=== PATIENT | male | born 1955 | race Hispanic/Latino ===

== ENCOUNTER 2018-02-13 16:35 | Inpatient (IN) | payer MEDICARE, SELFPAY ==
--- OUTSIDE RECORDS SUMMARY | 2018-02-13 16:37 | XMS REPORT | Clinical Summary ---
:1955 Author Organization [facility] Address [address] [place] [address] Care Team Providers Name Role Phone Bebeto Jaffe DO Primary Care Provider Allergies Active Allergy Reactions Severity Noted Date Comments Ibuprofen 07/18/2016 Current Medications Prescription Sig. Disp. Refills Start Date End Date Status PROAIR HFA 90 USE 2 PUFFS 4 06/02/2016 Active mcg/actuation NEEDED EVERY 4 inhaler HRS, NEEDED FOR INHALATION 30 DAYS cyclobenzaprine Take 10 mg by 0 06/17/2016 Active (FLEXERIL) 10 MG mouth 3 (three) tablet times a day as needed. for muscle spams oxyCODone-acetaminop TAKE 1 TABLET 0 06/17/2016 Active hen (PERCOCET) BY MOUTH EVERY 10-325 mg per tablet TWELVE HOURS NEEDED FOR PAIN lansoprazole Take 1 Active (PREVACID) 30 MG capsule(s) capsule every day by oral route. famotidine (PEPCID) Take 20 mg by 0 05/24/2016 Active 20 MG tablet mouth 2 (two) times a day. lansoprazole Take 30 mg by 0 05/23/2016 Active (PREVACID) 30 MG mouth 2 (two) capsule times a day. SPIRIVA RESPIMAT 2.5 TAKE 2 PUFFS BY 3 04/27/2016 Active mcg/actuation mist MOUTH EVERY DAY venlafaxine XR Take 150 mg by Active (EFFEXOR-XR) 150 MG mouth daily. 24 hr capsule traZODone (DESYREL) Take 100 mg by Active 100 MG tablet mouth nightly. pen needle, diabetic Use 4 needles a 400 each 3 08/15/2016 Active (BD ULTRA-FINE TIERA day PEN NEEDLES) 32 gauge x 5/32" needle fenofibrate TAKE 1 TABLET 90 tablet 3 12/05/2016 Active (LOFIBRA) 160 MG BY MOUTH EVERY tabletIndications: DAY Mixed hyperlipidemia VITAMIN D2 50,000 TAKE 1 CAPSULE 13 capsule 0 12/05/2016 Active unit capsule EVERY WEEK IN THE MORNING FOR 91 DAYS. ONETOUCH DELICA CHECK GLUCOSE 100 each 3 12/07/2016 Active LANCETS 33 gauge TWICE A DAY misc blood-glucose meter Use as 1 each 0 03/01/2017 03/01/20 Active (ONETOUCH VERIO FLEX instructed 18 START) kitIndications: Type 2 diabetes mellitus with complication, with long-term current use of insulin lancets (ONETOUCH 1 each 4 (four) 400 each 3 03/01/2017 Active DELICA LANCETS) 33 times a day. gauge miscIndications: Type 2 diabetes mellitus with complication, with long-term current use of insulin insulin lispro Inject 35 Units 105 mL 3 04/28/2017 Active (HumaLOG KwikPen) under the skin 100 unit/mL 3 (three) times injection a day before penIndications: meals. 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, with long-term current use of insulin enalapril (VASOTEC) Take 1 tablet 90 tablet 1 07/19/2017 Active 20 MG (20 mg total) tabletIndications: by mouth daily. Benign essential hypertension blood sugar Check glucose 4 400 strip 3 08/11/2017 Active diagnostic strips times a day (ONETOUCH VERIO) strip test stripsIndications: Type 2 diabetes mellitus with complication, with long-term current use of insulin insulin GLARGINE Inject 70 Units 22.5 mL 1 08/14/2017 Active (TOUJEO SOLOSTAR) under the skin 300 unit/mL (1.5 mL) daily. insulin penIndications: Type 2 diabetes mellitus with complication, with long-term current use of insulin insulin Use 1 syringe 270 each 1 01/02/2018 Active syringe-needle U-100 TID. 1 mL 31 gauge x 516 syringe enalapril (VASOTEC) Take 1 tablet 90 tablet 3 10/10/2016 07/19/20 Discontinued 20 MG (20 mg total) 17 tabletIndications: by mouth daily. Benign essential hypertension atorvastatin Take 1 tablet 90 tablet 3 10/10/2016 10/10/20 (LIPITOR) 20 MG (20 mg total) 17 tabletIndications: by mouth Mixed hyperlipidemia nightly. blood sugar Check glucose 4 400 strip 3 10/10/2016 03/01/20 Discontinued diagnostic strips times a day 17 (ONETOUCH VERIO) strip test stripsIndications: Type 2 diabetes mellitus with complication, with long-term current use of insulin insulin lispro Inject 30 Units 90 mL 3 01/25/2017 04/28/20 Discontinued (HumaLOG KwikPen) under the skin 17 100 unit/mL 3 (three) times injection a day before penIndications: meals. 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, with long-term current use of insulin insulin GLARGINE Inject 60 Units 18 mL 3 01/25/2017 04/28/20 Discontinued (TOUJEO SOLOSTAR) under the skin 17 300 unit/mL (1.5 mL) daily. insulin penIndications: Type 2 diabetes mellitus with complication, with long-term current use of insulin metFORMIN Take 1 tablet 180 tablet 3 01/25/2017 01/26/20 (GLUCOPHAGE) 1,000 (1,000 mg 18 mg total) by mouth tabletIndications: 2 (two) times a Uncontrolled type 2 day with meals. diabetes mellitus with other circulatory complication, with long-term current use of insulin blood sugar Check glucose 4 400 strip 3 03/01/2017 08/11/20 Discontinued diagnostic strips times a day 17 (ONETOUCH VERIO) strip test stripsIndications: Type 2 diabetes mellitus with complication, with long-term current use of insulin insulin GLARGINE Inject 70 Units 22.5 mL 3 04/28/2017 08/14/20 Discontinued (TOUJEO SOLOSTAR) under the skin 17 300 unit/mL (1.5 mL) daily. insulin penIndications: Type 2 diabetes mellitus with complication, with long-term current use of insulin insulin ASPART Inject 70 Units 15 mL 1 08/14/2017 08/14/20 (NovoLOG Flexpen) under the skin 17 100 unit/mL insulin once for 1 pen dose. Active Problems Problem Noted Date Benign hypertension 04/11/2016 Bronchitis 04/11/2016 Chronic coronary artery disease 04/11/2016 Disease of airway 04/11/2016 Fever 04/11/2016 HLD (hyperlipidemia) 04/11/2016 Methicillin susceptible Staphylococcus aureus in conditions classified 2015 elsewhere and of unspecified site Escherichia coli (E. coli) infection 04/11/2016 Leukocytosis 04/11/2016 Localized peritonitis 04/11/2016 Abscess, retroperitoneal 04/11/2016 Fatty liver 04/11/2016 Uncontrolled type 2 diabetes mellitus 04/11/2016 Vitamin D deficiency 04/11/2016 Encounters Date Type Specialty Care Team Description 02/06/2018 Refill Endocrinology Alexander Mckeon Type 2 diabetes mellitus MD Madalyn with complication, with long-term current use of insulin 01/04/2018 Refill Endocrinology Alexander Mckeon Mixed hyperlipidemia MD Madalyn 01/02/2018 Orders Only Endocrinology Susanna Laboy MA 12/27/2017 Documentation Endocrinology Susanna Laboy MA 12/09/2017 Refill Endocrinology Alexander Mckeon Uncontrolled type 2 MD Madalyn diabetes mellitus with other circulatory complication, with long-term current use of insulin 12/01/2017 Office Visit Endocrinology Divina Zendejas MD 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, with long-term current use of insulin (Primary Dx); Osteopenia, unspecified location 08/14/2017 Orders Only Endocrinology Tasha Gallardo, Type 2 diabetes mellitus MA with complication, with long-term current use of insulin 08/11/2017 Office Visit Endocrinology Alexander Mckeon 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, with long-term current use of insulin (Primary Dx); MD Madalyn Type 2 diabetes mellitus with complication, with long-term current use of insulin; Benign essential hypertension; Mixed hyperlipidemia; Coronary artery disease involving [place] heart with angina pectoris, unspecified vessel or lesion type 07/19/2017 Orders Only Endocrinology Susanna Laboy MA Benign essential hypertension 04/28/2017 Office Visit Endocrinology Alexander Mckeon 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, with long-term current use of insulin (Primary Dx); MD Madalyn Benign essential hypertension; Mixed hyperlipidemia; Coronary artery disease involving [place] heart with angina pectoris, unspecified vessel or lesion type; Type 2 diabetes mellitus with complication, with long-term current use of insulin 04/20/2017 Documentation Endocrinology Susanna Laboy MA 03/01/2017 Orders Only Endocrinology Ariana Atwood MA Uncontrolled type 2 diabetes mellitus without complication, with long-term current use of insulin (Primary Dx); Type 2 diabetes mellitus with complication, with long-term current use of insulin after 02/12/2017 Family History Medical History Relation Name Comments Diabetes Brother Diabetes Father Heart disease Father Hypertension Father Other Father Diabetes Mother Heart disease Mother Hypertension Mother Kidney disease Mother Other Mother Thyroiditis Diabetes Paternal Grandfather Heart disease Paternal Grandfather Hypertension Paternal Grandfather Other Paternal Grandfather Disorder of thyroid gland Diabetes Son Other Son Steatosis of liver Relation Name Status Comments Brother Father Mother Paternal Grandfather Son Social History Tobacco Use Types Packs/Day Years Used Date Never Smoker Smokeless Tobacco: Never Used Alcohol Use Drinks/Week oz/Week Comments No Sex Assigned at Date Recorded Not on file Last Filed Vital Signs Vital Sign Reading Time Taken Blood Pressure 126/79 12/01/2017 12:[address] Pulse 91 12/01/2017 12:[address]ER Temperature 36.2 C (97.1 F) 12/01/2017 12:[address] WORKER Respiratory Rate 95 08/11/2017 9:18 AM CDT Oxygen Saturation 93% 12/01/2017 12:[address] WORKER Inhaled Oxygen Concentration - - Weight 112 kg (247 lb 12.8 oz) 12/01/2017 12:[address]ER Height 170.2 cm (5' 7") 12/01/2017 12:[address]ER Body Mass Index 38.81 12/01/2017 12:[address] Plan of Treatment Date Type Specialty Care Team Description 03/20/2018 Ancillary Procedure Divina Zendejas MD [address] [facility] [address] [place] [id number] [phone] 03/20/2018 Office Visit Endocrinology Divina Zendejas MD [address] [id number] Health Maintenance Due Date Last Done Comments COLONOSCOPY 2003 ZOSTER VACCINE 2013 FOOT EXAM 10/10/2017 10/10/2016, 10/10/2016, 07/18/2016 URINE MICROALBUMIN 01/07/2018 01/07/2017, 01/07/2017, 11/26/2015 OPHTHALMOLOGY EXAM 04/28/2018 04/28/2017, 04/28/2016 INFLUENZA VACCINE 05/30/2018 07/27/2017, 07/13/2016 Results POC glycosylated hemoglobin (Hb A1C) (12/01/2017 12:19 PM)Only the most recent of3 resultswithin the time period is included. Component Value Ref Range POC Hemoglobin A1C 8.1 % Specimen Performing Laboratory Blood POC glucose (12/01/2017 12:18 PM)Only the most recent of3 resultswithin the time period is included. Component Value Ref Range POC glucose 192Comment: NON FASTING 65 - 100 Specimen Performing Laboratory Blood after 02/12/2017 Insurance Payer Benefit Plan / Group Subscriber ID Type Phone Address UHC MEDICARE AARP MEDICARE COMPLETE [facility] xxxxxxxxx O
[2018-02-13] MEDS ORDERED: METHYLPREDNISOLONE 125 MG INJ ONE (17:47)
[2018-02-13] MEDS ORDERED: LEVALBUTEROL 1.25 MG/3 ML NEB ONE (17:47)
[2018-02-13] MEDS ORDERED: FUROSEMIDE 40 MG/4 ML VIAL ONE (17:48)
[2018-02-13] MEDS ORDERED: MORPHINE 10 MG/ML VIAL ONE (17:48)
[2018-02-13 18:18] LABS: Absolute Lymphocytes (CBC) 2.6 K/uL (0.7-4.9); Absolute Monocytes 0.6 K/uL (0.1-1.3); Absolute Neutrophil 3.9 K/uL (1.8-8.0); Basophils % 0.9 % (0-1.3); Eosinophils % 1.7 % (0-4.4); Hematocrit 43.4 % (39.6-49.0); Lymphocytes % 36.2 % (15.3-44.8); MCH 29.1 pg (27.0-35.0); MCV 88.1 fL (80-100); MPV 8.2 fL (7.6-11.3); Monocytes % 7.7 % (3.3-12.3); RBC Red Blood Cell Count 4.92 M/uL (4.33-5.43)
[2018-02-13 18:25] LABS: Bicarbonate 31 mEq/L (21-31); Glucose Level 304 mg/dL (65-120); Potassium 4.6 mEq/L (3.6-5.0); Sodium Level 141 mEq/L (135-145)
[2018-02-13 18:26] LABS: BUN Blood Urea Nitrogen 20 mg/dL (6-20)
--- NOTE | 2018-02-13 18:35 | RAD REPORT ---
EXAM DESCRIPTION: RAD - Chest Single View - 02/13/2018 6:21 pm CLINICAL HISTORY: Shortness of breath. COMPARISON: 12/21/2017 FINDINGS: Portable technique limits examination quality. Linear opacities in the right lung base are compatible with subsegmental atelectasis mild linear opac ity in the medial left base likely represents additional atelectasis or less likely developing pneumo shobha. The heart is normal in size. No displaced fractures.
[2018-02-13 19:33] LABS: Urine Blood NEGATIVE (NEG); Urine Glucose 2+ (NEG); Urine Protein NEGATIVE (NEG)
--- NOTE | 2018-02-13 19:38 | ER ---
Nurse's Notes [facility] Name: Asim Burnett Age: 62 yrs Sex: Male : 1955 Arrival Date: 02/13/2018 Time: 16:42 Bed 5 Private MD: Diagnosis: Dyspnea, unspecified;Pneumonia;Edema, unspecified Presentation: 02/13 16:50 Presenting complaint: Patient states: has had difficulty breathing all day today, has iw history of "breathing problems" but not COPD, pt uses home O2 4 LNC, c/o mild CP, denies cough. Transition of care: patient was not received from another setting of care. Onset of symptoms was February 13, 2018. Initial Sepsis Screen: Does the patient meet any 2 criteria? No. Patient's initial sepsis screen is negative. Does the patient have a suspected source of infection? No. Patient's initial sepsis screen is negative. Care prior to arrival: None. 16:50 Method Of Arrival: Wheelchair iw 16:50 Acuity: ORACIO 3 iw Triage Assessment: 19:00 General: Appears in no apparent distress. comfortable, obese, Behavior is calm, bp cooperative, appropriate for age. Respiratory: Reports shortness of breath cough that is Onset: The symptoms/episode began/occurred this morning, the patient has moderate shortness of breath. Historical: - Allergies: 16:55 Ibuprofen; iw - Home Meds: 16:55 Advair Diskus 250-50 mcg/dose Inhl dsdv 1 puff 2 times per day [Active]; atorvastatin iw 20 mg Oral tab 1 tab once daily [Active]; clonazepam 1 mg Oral tab 1 tab QID PRN [Active]; enalapril maleate 20 mg Oral tab 1 tab once daily [Active]; fenofibrate 160 mg Oral tab 1 tab once daily [Active]; furosemide 20 mg Oral tab 1 tab once daily [Active]; gabapentin 600 mg Oral tab 1 tab 3 times per day [Active]; Humalog 100 unit/mL Sub-Q soln 24 unit three times a day [Active]; lansoprazole 30 mg Oral cpDR 1 cap once daily [Active]; metformin 1,000 mg Oral TG24 1 tab 2 times per day [Active]; oxycodone-acetaminophen 10-325 mg Oral tab 1 tab twice a day [Active]; Spiriva with HandiHaler 18 mcg inhalation CpDv 1 cap once daily [Active]; spironolactone 25 mg Oral tab 1 tab once daily [Active]; Toujeo SoloStar 300 unit/mL (1.5 mL) subcutaneous inpn 50 unit nightly [Active]; trazodone 50 mg Oral tab 1 tab nightly [Active]; - PMHx: 16:55 Anxiety; COPD; Depression; Diabetes - IDDM; High Cholesterol; Hypertension; iw - PSHx: 16:55 Cholecystectomy; abdomen opened to repair punctured pancreas; left foot surgery; iw - Immunization history:: Adult Immunizations not up to date. - Social history:: Smoking status: . - Family history:: not pertinent. - Hospitalizations: : No recent hospitalization is reported. Screenin:40 Abuse screen: Denies threats or abuse. Denies injuries from another. Nutritional iw screening: No deficits noted. Tuberculosis screening: No symptoms or risk factors identified. Fall Risk IV access (20 points). Assessment: 16:50 General: Appears uncomfortable, Behavior is calm, cooperative. Pain: Complains of pain iw in chest Pain currently is 8 out of 10 on a pain scale. Neuro: Level of Consciousness is awake, alert, obeys commands, Oriented to person, place, time, situation, Moves all extremities. Full function. Cardiovascular: Rhythm is regular. Respiratory: Airway is patent Respiratory effort is labored, Respiratory pattern is tachypnea Breath sounds with crackles bilaterally. Derm: Skin is pink, warm \\T\\ dry. normal. Musculoskeletal: Range of motion: intact in all extremities. 18:16 Reassessment: Patient appears in no apparent distress at this time. Patient and/or iw family updated on plan of care and expected duration. Pain level reassessed. Patient is alert, oriented x 3, equal unlabored respirations, skin warm/dry/pink. Patient states feeling better. Patient states symptoms have improved. 19:00 Reassessment: RECD REPORT FROM DEMETRA LOYOLA. 62YO HM P/W SOB, ADMIT IN PROCESS. bp 20:58 Reassessment: ADMIT IN PROCESS, BED ASSIGNED, AWAITING ADMIT ORDERS. bp Vital Signs: 16:55 BP 146 / 89; Pulse 85; Resp 20 S; Temp 98.2; Pulse Ox 93% on 4 lpm NC; iw 18:16 BP 123 / 83; Pulse 87; Resp 22; Pulse Ox 96% on 3 lpm NC; iw 19:30 BP 125 / 71; Pulse 94; Resp 30; Pulse Ox 92% on NC; bp 20:17 BP 113 / 57; Pulse 91; Resp 28; Pulse Ox 95% on NC; mt 20:59 BP 111 / 69; Pulse 91; Resp 23; Pulse Ox 94% on NC; bp 22:09 BP 128 / 79; Pulse 86; Resp 27; Pulse Ox 93% ; bp ED Course: 16:42 Patient arrived in ED. iw 16:45 Renea Mariano, RN is Primary Nurse. iw 16:49 Xu Lowry MD is Attending Physician. rn 16:52 Triage completed. iw 17:56 EKG done, by renal technician. reviewed by Xu Lowry MD. at1 18:00 Initial lab(s) drawn, by me, sent to lab. Inserted saline lock: 20 gauge in left iw antecubital area, using aseptic technique. Blood collected. 18:20 X-ray completed. Portable x-ray completed in exam room. Patient tolerated procedure kc2 well. 18:21 XRAY CXR (1 view) In Process Unspecified. EDMS 18:41 Patient has correct armband on for positive identification. Bed in low position. Call iw light in reach. 19:00 Arm band placed on. bp 19:37 Lance Kowalski MD is Hospitalizing Provider. rn 19:48 No provider procedures requiring assistance completed. Patient admitted, IV remains in bp place. 19:55 Primary Nurse role handed off by Renea Mariano, MILLA bp 19:55 Bear Anthony, MILLA is Primary Nurse. bp Administered Medications: 17:59 Drug: SOLU-Medrol 125 mg Route: IVP; Site: left antecubital; iw 19:35 Follow up: Response: No adverse reaction bp 18:06 Drug: Lasix 40 mg Route: IVP; Site: left antecubital; iw 19:36 Follow up: Response: No adverse reaction bp 18:06 Drug: morphine 4 mg Route: IVP; Site: left antecubital; iw 19:36 Follow up: Response: Pain is decreased bp 18:30 Drug: Xopenex (3) 1.25 mg Route: Inhalation; iw 19:47 Drug: Rocephin - (cefTRIAXone) 1 grams Route: IVPB; Infused Over: 30 mins; Site: left bp antecubital; 19:48 Follow up: IV Status: Completed infusion bp 19:47 Drug: AZITHromycin 500 mg Route: IVPB; Infused Over: 1 hrs; Site: left antecubital; bp 19:48 Follow up: IV Status: Infusion continued upon admission bp 21:20 Drug: [place] 5 mg-325 mg 1 tabs Route: PO; bp 22:26 Follow up: Response: Pain is decreased bp Outcome: 19:37 Decision to Hospitalize by Provider. rn 22:27 Admitted to Med/surg accompanied by tech, via wheelchair, room 407, with oxygen, with bp chart, Report called to SHERIE LOYOLA 22:27 Condition: stable 22:27 Instructed on the need for admit. 22:32 Patient left the ED. bp Signatures: Dispatcher [employer] EDRenea Perez RN RN iw Nieto, Roman, MD MD rn gonzales, Amanda, corner block cutter EKG Tat1 Keerthi Rodrigues kc2 Caitlin Burleson mt, Brian, RN RN bp Corrections: (The following items were deleted from the chart) 19:49 19:48 Respiratory: Onset: The symptoms/episode began/occurred bp bp
--- NOTE | 2018-02-13 19:38 | EDPHYS ---
Physician Documentation [facility] Name: Asim Burnett Age: 62 yrs Sex: Male : 1955 Arrival Date: 02/13/2018 Time: 16:42 Bed 5 Private MD: ED Physician Xu Lowry HPI: 02/13 18:22 This 62 yrs old Male presents to ER via Wheelchair with complaints of rn Breathing Difficulty. 18:22 The patient has shortness of breath at rest. Onset: The symptoms/episode began/occurred rn today. Duration: The symptoms are continuous. The patient's shortness of breath is aggravated by coughing, light activity, talking, walking. Associated signs and symptoms: Pertinent positives: chest pain, productive cough, Pertinent negatives: dizziness, fever, hemoptysis, loss of consciousness. Severity of symptoms: At their worst the symptoms were moderate in the emergency department the symptoms are unchanged. The patient has experienced similar episodes in the past. The patient has not recently seen a physician. Historical: - Allergies: 16:55 Ibuprofen; iw - Home Meds: 16:55 Advair Diskus 250-50 mcg/dose Inhl dsdv 1 puff 2 times per day [Active]; atorvastatin iw 20 mg Oral tab 1 tab once daily [Active]; clonazepam 1 mg Oral tab 1 tab QID PRN [Active]; enalapril maleate 20 mg Oral tab 1 tab once daily [Active]; fenofibrate 160 mg Oral tab 1 tab once daily [Active]; furosemide 20 mg Oral tab 1 tab once daily [Active]; gabapentin 600 mg Oral tab 1 tab 3 times per day [Active]; Humalog 100 unit/mL Sub-Q soln 24 unit three times a day [Active]; lansoprazole 30 mg Oral cpDR 1 cap once daily [Active]; metformin 1,000 mg Oral TG24 1 tab 2 times per day [Active]; oxycodone-acetaminophen 10-325 mg Oral tab 1 tab twice a day [Active]; Spiriva with HandiHaler 18 mcg inhalation CpDv 1 cap once daily [Active]; spironolactone 25 mg Oral tab 1 tab once daily [Active]; Toujeo SoloStar 300 unit/mL (1.5 mL) subcutaneous inpn 50 unit nightly [Active]; trazodone 50 mg Oral tab 1 tab nightly [Active]; - PMHx: 16:55 Anxiety; COPD; Depression; Diabetes - IDDM; High Cholesterol; Hypertension; iw - PSHx: 16:55 Cholecystectomy; abdomen opened to repair punctured pancreas; left foot surgery; iw - Immunization history:: Adult Immunizations not up to date. - Social history:: Smoking status: . - Family history:: not pertinent. - Hospitalizations: : No recent hospitalization is reported. ROS: 18:22 Constitutional: Negative for fever, chills, and weight loss, Eyes: Negative for injury, rn pain, redness, and discharge, Neck: Negative for injury, pain, and swelling, Cardiovascular: Negative for palpitations, + edema, Respiratory: + sob and cough Abdomen/GI: Negative for abdominal pain, nausea, vomiting, diarrhea, and constipation, Back: Negative for injury and pain, MS/Extremity: Negative for injury and deformity, Skin: Negative for injury, rash, and discoloration, Neuro: Negative for headache, weakness, numbness, tingling, and seizure. Exam: 18:22 Constitutional: This is a well developed, well nourished patient who is awake, alert, rn mild tachypnea Head/Face: Normocephalic, atraumatic. Eyes: Pupils equal round and reactive to light, extra-ocular motions intact. Lids and lashes normal. Conjunctiva and sclera are non-icteric and not injected. Cornea within normal limits. Periorbital areas with no swelling, redness, or edema. Neck: Trachea midline, no thyromegaly or masses palpated, and no cervical lymphadenopathy. Supple, full range of motion without nuchal rigidity, or vertebral point tenderness. No Meningismus. Cardiovascular: Regular rate and rhythm with a normal S1 and S2. No gallops, murmurs, or rubs. Normal PMI, no JVD. No pulse deficits. Respiratory: + coarse bilateral breath sounds with exp wheezing, no retractions Abdomen/GI: Soft, non-tender, with normal bowel sounds. No distension or tympany. No guarding or rebound. No evidence of tenderness throughout. Back: No spinal tenderness. No costovertebral tenderness. Full range of motion. MS/ Extremity: Pulses equal, no cyanosis. Neurovascular intact. Full, normal range of motion. 2+ pitting edema bilateral lower ext Neuro: Awake and alert, GCS 15, oriented to person, place, time, and situation. Cranial nerves II-XII grossly intact. Motor strength 5/5 in all extremities. Sensory grossly intact. Vital Signs: 16:55 BP 146 / 89; Pulse 85; Resp 20 S; Temp 98.2; Pulse Ox 93% on 4 lpm NC; iw 18:16 BP 123 / 83; Pulse 87; Resp 22; Pulse Ox 96% on 3 lpm NC; iw 19:30 BP 125 / 71; Pulse 94; Resp 30; Pulse Ox 92% on NC; bp 20:17 BP 113 / 57; Pulse 91; Resp 28; Pulse Ox 95% on NC; mt 20:59 BP 111 / 69; Pulse 91; Resp 23; Pulse Ox 94% on NC; bp 22:09 BP 128 / 79; Pulse 86; Resp 27; Pulse Ox 93% ; bp MDM: 16:49 Patient medically screened. rn 19:30 Differential diagnosis: Bronchitis CHF exacerbation, Chronic Obstructive Pulmonary rn Disease Myocardial Infarction pneumonia, Pneumothorax pulmonary edema. 19:36 Data reviewed: vital signs, nurses notes, lab test result(s), EKG, radiologic studies, rn plain films, and as a result, I will admit patient. Counseling: I had a detailed discussion with the patient and/or guardian regarding: the historical points, exam findings, and any diagnostic results supporting the discharge/admit diagnosis, lab results, radiology results, the need for further work-up and treatment in the hospital. Response to treatment: the patient's symptoms have mildly improved after treatment, and as a result, I will admit patient. Admission orders: after a detailed discussion of the patient's condition and case, the admit orders are written by me. 02/13 17:01 Order name: Blood Culture Adult (2) rn 02/13 17:01 Order name: BMP; Complete Time: 18:41 rn 02/13 17:01 Order name: BNP; Complete Time: 18:41 rn 02/13 17:01 Order name: CBC with Diff; Complete Time: 19:17 rn 02/13 17:01 Order name: Troponin (emerg Dept Use Only); Complete Time: 18:41 rn 02/13 18:43 Order name: Urine Dipstick--Ancillary (enter results); Complete Time: 21:32 jw5 02/13 17:01 Order name: XRAY CXR (1 view); Complete Time: 18:41 rn 02/13 19:08 Order name: Urine --Ancillary (enter results); Complete Time: 21:32 em1 02/13 17:01 Order name: EKG; Complete Time: 17:43 rn 02/13 17:01 Order name: Cardiac monitoring; Complete Time: 19:37 rn 02/13 17:01 Order name: EKG - Nurse/Tech; Complete Time: 19:31 rn 02/13 17:01 Order name: IV Saline Lock; Complete Time: 19:37 rn 02/13 17:01 Order name: Labs collected and sent; Complete Time: 19:37 rn 02/13 17:01 Order name: O2 Per Protocol; Complete Time: 19:37 rn 02/13 17:01 Order name: O2 Sat Monitoring; Complete Time: 19:37 rn Administered Medications: 17:59 Drug: SOLU-Medrol 125 mg Route: IVP; Site: left antecubital; iw 19:35 Follow up: Response: No adverse reaction bp 18:06 Drug: Lasix 40 mg Route: IVP; Site: left antecubital; iw 19:36 Follow up: Response: No adverse reaction bp 18:06 Drug: morphine 4 mg Route: IVP; Site: left antecubital; iw 19:36 Follow up: Response: Pain is decreased bp 18:30 Drug: Xopenex (3) 1.25 mg Route: Inhalation; iw 19:47 Drug: Rocephin - (cefTRIAXone) 1 grams Route: IVPB; Infused Over: 30 mins; Site: left bp antecubital; 19:48 Follow up: IV Status: Completed infusion bp 19:47 Drug: AZITHromycin 500 mg Route: IVPB; Infused Over: 1 hrs; Site: left antecubital; bp 19:48 Follow up: IV Status: Infusion continued upon admission bp 21:20 Drug: Eugene 5 mg-325 mg 1 tabs Route: PO; bp 22:26 Follow up: Response: Pain is decreased bp Disposition: 02/13/18 19:37 Hospitalization ordered by Lance Kowalski for Inpatient Admission. Preliminary diagnosis are Dyspnea, unspecified, Pneumonia, Edema, unspecified. - Bed requested for Telemetry/MedSurg (Inpatient). - Status is Inpatient Admission. bp - Condition is Stable. - Problem is new. - Symptoms have improved. UTI on Admission? No Signatures: Dispatcher [employer] Divine Antunez, Renea Manzo RN, RN RN iw Nieto, Roman, MD MD rn Peltier, Brian, MILLA RN bp
[2018-02-13] MEDS ORDERED: CEFTRIAXONE/SWI 1gm 1 GM/10 ML SYR ONE (19:40)
[2018-02-13] MEDS ORDERED: AZITHROMYCIN 500 MG/250 ML BAG ONE (19:40)
[2018-02-13] MEDS ORDERED: HYDROCODONE/APAP 5/325 MG TAB ONE (21:18)
[2018-02-13] MEDS ORDERED: ONDANSETRON 4 MG/2 ML VIAL IV PRN (22:42)
[2018-02-13] MEDS ORDERED: ACETAMINOPHEN 500 MG TAB PO PRN (22:42)
[2018-02-13] MEDS: INSULIN -REGULAR HUMAN 50 UNIT/0.5 ML ML SQ SCH (23:06)
[2018-02-13 23:32] VITALS: BMI 38.5
[2018-02-13] MEDS: IPRATROPIUM BROM 0.5MG/2.5ML NEB SCH (23:34)
[2018-02-13] MEDS: ALBUTEROL 2.5 MG/3 ML NEB SOL NEB SCH (23:34)
--- NOTE | 2018-02-14 | EKG ---
Test Date: 2018-02-13 Test Time: 17:48:13 Television Station Manager: MARILIA MEASUREMENT RESULTS: Intervals: Rate: 88 NC: 156 QRSD: 90 QT: 372 QTc: 450 Robards: P: 18 NC: 156 QRS: -45 T: 7 INTERPRETIVE STATEMENTS: Normal sinus rhythm Left anterior fascicular block Abnormal ECG Compared to ECG 12/20/2017 18:21:13 Left anterior fascicular block now present Electronically Signed On 02-14-18 00:00:21 CDT by Dre Mai
[2018-02-14] MEDS ORDERED: ZOLPIDEM TARTRATE 5 MG TABLET PO PRN (01:24)
[2018-02-14] MEDS: KETOROLAC 30 MG/ML INJ IV PRN ×4 (01:45→23:04)
[2018-02-14] MEDS: METHYLPREDNISOLONE 40 MG INJ IV SCH ×2 (01:46→09:17)
[2018-02-14] MEDS: ALBUTEROL 2.5 MG/3 ML NEB SOL NEB SCH ×6 (03:01→23:29)
[2018-02-14] MEDS: IPRATROPIUM BROM 0.5MG/2.5ML NEB SCH ×6 (03:01→23:36)
--- NOTE | 2018-02-14 04:31 | P.HP ---
Certification for Inpatient Patient admitted to: Inpatient With expected LOS: >2 Midnights Practitioner: I am a practitioner with admitting privileges, knowledge of patient current condition, hospital course, and medical plan of care. Services: Services provided to patient in accordance with Admission requirements found in Title 42 Section 412.3 of the Code of Federal Regulations Patient History Date of Service: 02/13/18 Reason for admission: acute on chronic respiratory failure History of Present Illness: Mr Burnett is a 62 years old male with history of COPD on home oxygen at 4 L NC , DM II, chronic diastolic CHF, who start with progressive SOB since yesterday. He also has had productive cough with thick clear secretions. He denied fever or chills. At arrival his O2 sat were 94% on 4 L of oxygen, afebrile, lab work remarkable for normal WBC count, he has elevated troponin I 0.12, likely due to diastolic CHF exacerbation. XCR shows bilateral linear opacities. Allergies ibuprofen Allergy (Intermediate, Verified 02/13/18 22:58) Hives/Rash Home Medications: Atorvastatin Calcium [Lipitor*] 20 mg PO BEDTIME 01/15/17 Fenofibrate [Tricor*] 160 mg PO DAILY 01/15/17 Lansoprazole [Prevacid] 30 mg PO DAILY 01/15/17 Metformin HCl [Glucophage] 1,000 mg PO BIDWM 01/15/17 Trazodone [Desyrel*] 300 mg PO BEDTIME 01/15/17 Oxycodone HCl/Acetaminophen [Oxycodone-Acetaminophen 10-325] 1 tab PO Q12H 02/27 Fluticasone/Salmeterol [Advair 250/50 Diskus*] 1 puff IH BID #1 disk 03/03/17 Clonazepam [Klonopin*] 1 mg PO QIDP PRN 04/03/17 Insulin Glargine,Hum.rec.anlog [Toujoseo Jenniostar] 70 units SQ BEDTIME 04/03/17 Insulin Lispro [Humalog Kwikpen U-100] 35 unit SQ TID 04/03/17 Tiotropium [Spiriva Handihaler*] 1 puff IH DAILY 05/07/17 Metoprolol Succinate [Toprol Xl*] 50 mg PO [id number] #30 tab 07/17/17 Enalapril Maleate [Vasotec] 20 mg PO DAILY 09/29/17 Albuterol Neb [Proventil 0.083% Neb Soln] 2.5 mg NEB TID PRN #90 amp 12/21/17 Famotidine [Pepcid*] 20 mg PO DAILY 12/21/17 Furosemide [Lasix*] 40 mg PO BIDL 12/21/17 Prednisone [Prednisone*] 20 mg PO SEECOM #15 tab 12/21/17 Spironolactone [Aldactone*] 50 mg PO BID 12/21/17 Venlafaxine HCl [Effexor XR] 150 mg PO DAILY 12/21/17 - Past Medical/Surgical History Has patient received pneumonia vaccine in the past: Yes Diabetic: Yes -: IDDM -: Hypertension -: hyperlipidemia -: anxiety -: depression -: Gastroesophageal reflux disease -: Obstructive sleep apnea -: (home 02 4L) -: Pancreatic surgery -: cholecystectomy -: several back surgery -: 2008 ercp, punctured something in his pacreas, then transfered to -: [facility] for open exploratory lap, had feeding tube that has reversed -: trach from previous surgery at [facility] - Family History Father History Unknown: Yes -: Heart disease, Diabetes Mother -: Heart disease, Hypertension, Lung disease, GI disease, Diabetes, Stroke, Liver disease, Kidney disease Brother -: Heart disease, Hypertension, Lung disease, Diabetes, Stroke, Liver disease, Kidney disease Notes: 2 brothers Sister -: Heart disease, GI disease Notes: no known illness - Social History Smoking Status: Former smoker Alcohol use: No CD- Drugs: No Caffeine use: Yes Place of Residence: Home Review of Systems 10-point ROS is otherwise unremarkable Physical Examination - Vital Signs Temperature: 97.1 F Blood Pressure: 135/78 Pulse: 86 Respirations: 20 Pulse Ox (%): 91 - Physical Exam General: Alert, In no apparent distress HEENT: Atraumatic, PERRLA, Mucous membr. moist/pink, EOMI, Sclerae nonicteric Neck: Supple, 2+ carotid pulse no bruit, No LAD, Without JVD or thyroid abnormality Respiratory: Diminished, Expiratory wheezes Cardiovascular: Regular rate/rhythm, Normal S1 S2 Gastrointestinal: Normal bowel sounds, No tenderness Musculoskeletal: No tenderness Integumentary: No rashes Neurological: Normal speech, Normal strength at 5/5 x4 extr, Normal tone, Normal affect Lymphatics: No axilla or inguinal lymphadenopathy - Studies Laboratory Data (last 24 hrs) 02/13/18 17:55: WBC 7.3, Hgb 14.3, Hct 43.4, Plt Count 251 02/13/18 17:55: B-Natriuretic Peptide 20 02/13/18 17:55: Sodium 141, Potassium 4.6, BUN 20, Creatinine 0.82, Glucose 304 H Assessment and Plan - Problems (Diagnosis) (1) Acute on chronic diastolic (congestive) heart failure Current Visit: Yes Status: Acute (2) Acute and chronic respiratory failure Onset Date: 12/21/17 Current Visit: No Status: Acute Qualifiers: Respiratory failure complication: hypoxia Qualified Code(s): J96.21 - Acute and chronic respiratory failure with hypoxia (3) COPD with acute exacerbation Onset Date: 12/21/17 Current Visit: No Status: Acute (4) CAD (coronary artery disease) Onset Date: 05/08/17 Current Visit: No Status: Chronic Qualifiers: Coronary Disease-Associated Artery/Lesion type: unspecified vessel or lesion type [place] vs. transplanted heart: unspecified whether [place] or transplanted heart Associated angina: angina presence unspecified Qualified Code(s): I25.10 - Atherosclerotic heart disease of [place] coronary artery without angina pectoris (5) Diabetes mellitus Onset Date: 12/21/17 Current Visit: No Status: Chronic Qualifiers: Diabetes mellitus type: type 2 Diabetes mellitus skilled nursing insulin use: with skilled nursing use Diabetes mellitus complication status: with unspecified complications Qualified Code(s): E11.8 - Type 2 diabetes mellitus with unspecified complications; Z79.4 - detention (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 of insulin; Z79.4 - detention (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 of insulin; Z79.4 - detention (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 of insulin; Z79.4 - detention (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 of insulin (6) HTN (hypertension) Onset Date: 12/21/17 Current Visit: No Status: Chronic Qualifiers: Hypertension type: essential hypertension - Plan The patient will be admitted to the hospital due to acute on chronic respiratory failure secondary to COPD exacerbation by pneumonia and CHF exacerbation, trop I elevated, will cotinue serial monitoring, likely due to CHF. Will start empiric antibiotic treatment. Blood cultures in process. - Advance Directives Does patient have a Living Will: Yes Does patient have a Durable POA for Healthcare: Yes - Code Status/Comfort Care Code Status Assessed: Yes Code Status: Full Code
[2018-02-14 04:55] LABS: Absolute Lymphocytes (CBC) 0.9 K/uL (0.7-4.9); Absolute Monocytes 0.1 K/uL (0.1-1.3); Absolute Neutrophil 9.1 K/uL (1.8-8.0); Basophils % 0.2 % (0-1.3); Hematocrit 42.1 % (39.6-49.0); Lymphocytes % 8.7 % (15.3-44.8); MCH 29.8 pg (27.0-35.0); MCV 88.2 fL (80-100); MPV 8.8 fL (7.6-11.3); Monocytes % 0.6 % (3.3-12.3); RBC Red Blood Cell Count 4.77 M/uL (4.33-5.43)
[2018-02-14 06:04] LABS: Potassium 4.2 mEq/L (3.6-5.0)
[2018-02-14 06:15] LABS: Magnesium 1.3 mg/dL (1.8-2.5)
[2018-02-14] MEDS ORDERED: Magnesium Sulfate 2gm IVPB 2 G/50 ML BAG IV ONE (06:23)
[2018-02-14] MEDS ORDERED: CEFTRIAXONE 1 GM/NS 50 ML 1 GM/50 ML BAG IV SCH (09:00)
[2018-02-14] MEDS: INSULIN -REGULAR HUMAN 50 UNIT/0.5 ML ML SQ SCH ×4 (09:16→21:00)
[2018-02-14] MEDS: ENOXAPARIN 40 MG/0.4 ML SQ SCH (09:17)
[2018-02-14 09:18] LABS: Blood Morphology Comment NOT SEEN (NOT SEEN); Platelet Estimate ADEQ; Urine White Blood Cell Casts OK
[2018-02-14] MEDS ORDERED: clonazePAM 1 MG TAB PO PRN (13:42)
[2018-02-14] MEDS: GABAPENTIN 300 MG CAP PO SCH ×2 (14:39→22:55)
--- NOTE | 2018-02-14 14:55 | EKG ---
Test Date: 2018-02-13 Test Time: 19:26:45 House Moving Supervisor: VAZQUEZ MEASUREMENT RESULTS: Intervals: Rate: 95 DC: 158 QRSD: 88 QT: 356 QTc: 447 Mcgrath: P: 19 DC: 158 QRS: -25 T: 54 INTERPRETIVE STATEMENTS: Normal sinus rhythm Normal ECG Compared to ECG 02/13/2018 17:48:13 Left anterior fascicular block no longer present Electronically Signed On 02-14-18 14:55:00 CDT by Dre Mai
--- NOTE | 2018-02-14 16:26 | P.PN ---
Subjective Date of Service: 02/14/18 Chief Complaint: acute on chronic respiratory failure Patient seen and examined at bedside with RN. Chart reviewed. Currently patient is complaining of having some difficulty breathing and states that he has been dyspneic for the entire night as well. Review of Systems 10-point ROS is otherwise unremarkable Physical Examination - Vital Signs Temperature: 97.2 F Blood Pressure: 151/92 Pulse: 93 Respirations: 20 Pulse Ox (%): 94 - Physical Exam General: Alert, Oriented x3, Mild distress HEENT: Atraumatic Neck: Supple Respiratory: Normal air movement, Expiratory wheezes, Inspiratory wheezes Cardiovascular: Regular rate/rhythm, Normal S1 S2 Gastrointestinal: Normal bowel sounds, No tenderness Musculoskeletal: No tenderness, Swelling Integumentary: No rashes Neurological: Normal speech, Normal tone, Normal affect Lymphatics: No axilla or inguinal lymphadenopathy - Studies Laboratory Data (last 24 hrs) 02/13/18 17:55: WBC 7.3, Hgb 14.3, Hct 43.4, Plt Count 251 02/13/18 17:55: B-Natriuretic Peptide 20 02/13/18 17:55: Sodium 141, Potassium 4.6, BUN 20, Creatinine 0.82, Glucose 304 H Medications List Reviewed: Yes Assessment & Plan - Problems (Diagnosis) (1) Acute exacerbation of chronic obstructive pulmonary disease (COPD) Onset Date: 02/28/17 Current Visit: No Status: Acute Plan: Most Likely 2/2 to PNA -Currently on ABX -Culture pending -Duonebs, steriods and Oxygen -Pulmonology consulted. -Dc in 24 hrs. (2) CHF (congestive heart failure) Onset Date: 12/21/17 Current Visit: No Status: Acute Plan: BNP < 20 -Lasix IV in ER -Resume home medication Qualifiers: Heart failure type: diastolic Heart failure chronicity: acute on chronic Qualified Code(s): I50.33 - Acute on chronic diastolic (congestive) heart failure (3) CAD (coronary artery disease) Onset Date: 05/08/17 Current Visit: No Status: Chronic Qualifiers: Coronary Disease-Associated Artery/Lesion type: unspecified vessel or lesion type [place] vs. transplanted heart: unspecified whether [place] or transplanted heart Associated angina: angina presence unspecified Qualified Code(s): I25.10 - Atherosclerotic heart disease of [place] coronary artery without angina pectoris (4) Diabetes mellitus Onset Date: 12/21/17 Current Visit: No Status: Chronic Qualifiers: Diabetes mellitus type: type 2 Diabetes mellitus tank terminal gauger insulin use: with tank terminal gauger use Diabetes mellitus complication status: with unspecified complications Qualified Code(s): E11.8 - Type 2 diabetes mellitus with unspecified complications; Z79.4 - technician terminal and repeater (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 of insulin; Z79.4 - technician terminal and repeater (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 of insulin; Z79.4 - [facility] (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 of insulin; Z79.4 - technician terminal and repeater (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 of insulin (5) GERD (gastroesophageal reflux disease) Onset Date: 07/17/17 Current Visit: No Status: Chronic Qualifiers: Esophagitis presence: esophagitis presence not specified Qualified Code(s) : K21.9 - Gastro-esophageal reflux disease without esophagitis (6) HTN (hypertension) Onset Date: 12/21/17 Current Visit: No Status: Chronic Qualifiers: Hypertension type: essential hypertension (7) Hyperlipidemia Onset Date: 05/08/17 Current Visit: No Status: Chronic Qualifiers: Hyperlipidemia type: unspecified Qualified Code(s): E78.5 - Hyperlipidemia , unspecified (8) Obesity Onset Date: 04/04/17 Current Visit: No Status: Chronic Qualifiers: Obesity type: unspecified obesity type (9) Obstructive sleep apnea Onset Date: 05/08/17 Current Visit: No Status: Chronic Discharge Plan: Home Plan to discharge in: 24 Hours - Code Status/Comfort Care Code Status Assessed: Yes Critical Care: No
[2018-02-14] MEDS ORDERED: D50W 25 GM/50 ML SYRINGE IV PRN (16:44)
[2018-02-14] MEDS ORDERED: GLUCAGON 1 MG/VIAL IM PRN (16:44)
[2018-02-14] MEDS: FUROSEMIDE 40 MG TABLET PO SCH (17:04)
[2018-02-14] MEDS ORDERED: AZITHROMYCIN IV 500 MG in NA CHLORIDE 0.9% 250 ML IVPB SCH ×2 (18:00→19:00)
[2018-02-14] MEDS ORDERED: CEFTRIAXONE/SWI 1gm 1 GM/10 ML SYR IV SCH (18:00)
[2018-02-14] MEDS: ARFORMOTEROL TARTRATE 15 MCG/2 ML VIAL.NEB IH SCH (19:47)
[2018-02-14] MEDS ORDERED: TRAZODONE 50 MG TABLET PO SCH (21:00)
[2018-02-14] MEDS ORDERED: ATORVASTATIN 20 MG TAB PO SCH (21:00)
[2018-02-14] MEDS: SPIRONOLACTONE 25 MG TABLET PO SCH (22:55)
[2018-02-15] MEDS: IPRATROPIUM BROM 0.5MG/2.5ML NEB SCH ×2 (03:55→07:15)
[2018-02-15] MEDS: ALBUTEROL 2.5 MG/3 ML NEB SOL NEB SCH ×2 (03:55→07:15)
[2018-02-15] MEDS: KETOROLAC 30 MG/ML INJ IV PRN (05:16)
[2018-02-15] MEDS ORDERED: METOPROLOL XL 50 MG TAB PO SCH (06:00)
[2018-02-15] MEDS ORDERED: PANTOPRAZOLE 40MG TABLET PO SCH (06:30)
[2018-02-15] MEDS: ARFORMOTEROL TARTRATE 15 MCG/2 ML VIAL.NEB IH SCH (07:15)
--- NOTE | 2018-02-15 08:06 | P.CNS ---
Date of Consult: 02/15/18 Chief Complaint: Shortness of breath History of Present Illness: Patient is 62 years of age well known to me recurrent hospital admissions with possible underlying diastolic dysfunction he was doing well before was compliant with his CPAP and diuretics started having worsening dyspnea over the past 3-4 days slight cough for no fever chills admitted to the hospital is doing somewhat better Allergies ibuprofen Allergy (Intermediate, Verified 02/13/18 22:58) Hives/Rash Home Medications: Atorvastatin Calcium [Lipitor*] 20 mg PO BEDTIME 01/15/17 Fenofibrate [Tricor*] 160 mg PO DAILY 01/15/17 Lansoprazole [Prevacid] 30 mg PO DAILY 01/15/17 Metformin HCl [Glucophage] 1,000 mg PO BIDWM 01/15/17 Trazodone [Desyrel*] 50 mg PO BEDTIME 01/15/17 Oxycodone HCl/Acetaminophen [Oxycodone-Acetaminophen 10-325] 1 tab PO Q12H 02/27 Fluticasone/Salmeterol [Advair 250/50 Diskus*] 1 puff IH BID #1 disk 03/03/17 Clonazepam [Klonopin*] 1 mg PO QIDP PRN 04/03/17 Insulin Glargine,Hum.rec.anlog [Toujeo Solostar] 50 units SQ BEDTIME 04/03/17 Insulin Lispro [Humalog Kwikpen U-100] 24 unit SQ TID 04/03/17 Tiotropium [Spiriva Handihaler*] 1 puff IH DAILY 05/07/17 Metoprolol Succinate [Toprol Xl*] 50 mg PO [id number] #30 tab 07/17/17 Albuterol Neb [Proventil 0.083% Neb Soln] 2.5 mg NEB TID PRN #90 amp 12/21/17 Furosemide [Lasix*] 40 mg PO BIDL 12/21/17 Spironolactone [Aldactone*] 50 mg PO BID 12/21/17 Arformoterol Tartrate [Brovana] 15 mcg IH BID 02/14/18 Gabapentin [Neurontin] 600 mg PO TID 02/14/18 Ipratropium Neb [Atrovent*] 0.5 mg IH Q6H 02/14/18 - Past Medical/Surgical History Diabetic: Yes -: IDDM -: Hypertension -: hyperlipidemia -: anxiety -: depression -: Gastroesophageal reflux disease -: Obstructive sleep apnea -: (home 02 4L) -: Pancreatic surgery -: cholecystectomy -: several back surgery -: 2009 ercp, punctured something in his pacreas, then transfered to -: [facility] for open exploratory lap, had feeding tube that has reversed -: trach from previous surgery at [facility] - Family History Father History Unknown: Yes Medical History: Heart disease, Diabetes Mother Medical History: Heart disease, Hypertension, Lung disease, GI disease, Diabetes , Stroke, Liver disease, Kidney disease Brother Medical History: Heart disease, Hypertension, Lung disease, Diabetes, Stroke, Liver disease, Kidney disease Notes: 2 brothers Sister Medical History: Heart disease, GI disease Notes: no known illness - Social History Smoking Status: Unknown if ever smoked Alcohol use: No CD- Drugs: No Caffeine use: Yes Place of Residence: Home Review of Systems 10-point ROS is otherwise unremarkable Physical Examination Temp Pulse Resp BP Pulse Ox 97.3 F 67 20 156/106 H 98 02/15/18 07:46 02/15/18 07:46 02/15/18 07:46 02/15/18 07:46 02/15/18 07:46 General: Alert, Oriented x3, Cooperative HEENT: Atraumatic Neck: Supple Respiratory: Clear to auscultation bilaterally Cardiovascular: No edema, Regular rate/rhythm Gastrointestinal: Normal bowel sounds, Soft and benign - Problems (1) Acute on chronic diastolic (congestive) heart failure Onset Date: 02/14/18 Current Visit: Yes Status: Acute Plan: Patient is 62 years of age recurrent hospital admissions he has restrictive lung disease on his pulmonary function testing does not smoke in addition patient has sleep apnea is compliant with his CPAP also been compliant with his diuretics admitted with worsening dyspnea final signs oxygenation all satisfactory labs fairly unremarkable there is no evidence of sepsis Dc antibiotics patient is on spironolactone and Lasix can be discharged with fluid restriction continue with bronchodilators
[2018-02-15] MEDS: ENOXAPARIN 40 MG/0.4 ML SQ SCH ×2 (09:00→09:10)
[2018-02-15] MEDS ORDERED: predniSONE 20 MG TAB PO SCH (09:00)
[2018-02-15] MEDS ORDERED: FENOFIBRATE 160 MG TAB PO SCH (09:00)
[2018-02-15] MEDS: GABAPENTIN 300 MG CAP PO SCH (09:06)
[2018-02-15] MEDS: FUROSEMIDE 40 MG TABLET PO SCH (09:06)
[2018-02-15] MEDS: INSULIN -REGULAR HUMAN 50 UNIT/0.5 ML ML SQ SCH ×2 (09:07→11:38)
[2018-02-15] MEDS: SPIRONOLACTONE 25 MG TABLET PO SCH (09:07)
[2018-02-15 11:27] VITALS: O2SAT 98
[2018-02-15 11:50] VITALS: BP 158/76; TEMP 97.2
--- NOTE | 2018-02-15 15:34 | P.DS ---
Admission Date: 02/13/18 Discharge Date: 02/15/18 Disposition: ROUTINE DISCHARGE Discharge Condition: GOOD Reason for Admission: Shortness of breath Consultations: Cardiology and Pulmonology - Problems (1) Acute exacerbation of chronic obstructive pulmonary disease (COPD) Onset Date: 02/28/17 Status: Acute (2) CHF (congestive heart failure) Onset Date: 12/21/17 Status: Acute Qualifiers: Heart failure type: diastolic Heart failure chronicity: acute on chronic Qualified Code(s): I50.33 - Acute on chronic diastolic (congestive) heart failure (3) CAD (coronary artery disease) Onset Date: 05/08/17 Status: Chronic Qualifiers: Coronary Disease-Associated Artery/Lesion type: unspecified vessel or lesion type [place] vs. 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 insulin; Z79.4 - rat exterminator (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 of insulin; Z79.4 - rat exterminator (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 of insulin; Z79.4 - rat exterminator (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 insulin (5) GERD (gastroesophageal reflux disease) Onset Date: 07/17/17 Status: Chronic Qualifiers: Esophagitis presence: esophagitis presence not specified Qualified Code(s) : K21.9 - Gastro-esophageal reflux disease without esophagitis (6) HTN (hypertension) Onset Date: 12/21/17 Status: Chronic Qualifiers: Hypertension type: essential hypertension (7) Hyperlipidemia Onset Date: 05/08/17 Status: Chronic Qualifiers: Hyperlipidemia type: unspecified Qualified Code(s): E78.5 - Hyperlipidemia , unspecified (8) Obesity Onset Date: 04/04/17 Status: Chronic Qualifiers: Obesity type: unspecified obesity type (9) Obstructive sleep apnea Onset Date: 05/08/17 Status: Chronic Brief History of Present Illness: Mr Burnett is a 62 years old male with history of COPD on home oxygen at 4 L NC , DM II, chronic diastolic CHF, who start with progressive SOB since yesterday. He also has had productive cough with thick clear secretions. He denied fever or chills. At arrival his O2 sat were 94% on 4 L of oxygen, afebrile, lab work remarkable for normal WBC count, he has elevated troponin I 0.12, likely due to diastolic CHF exacerbation. XCR shows bilateral linear opacities. Hospital Course: Overall during the hospital stay patient remained stable. The patient was initially admitted to the hospital for dyspnea. Patient initially had elevated troponin along with BMP and was thought to be in acute CHF failure. Was placed on IV fluids patient had little improvement in his symptoms. Patient also had acute on chronic COPD exacerbation given the acute nature of his disease patient was placed on duo nebs and did fairly well postop day 2 of hospitalization patient no longer had dyspnea and was back to 3 L of nasal cannula which she uses at home. Patient was then discharged home under stable condition. Pulmonology was consulted while patient was here in the hospital who recommended patient be continued on his inhalers at will have an outpatient followup in about 1-2 weeks Vital Signs/Physical Exam: Temp Pulse Resp BP Pulse Ox 97.2 F 69 20 158/76 H 96 02/15/18 11:47 02/15/18 11:47 02/15/18 11:47 02/15/18 11:47 02/15/18 11:47 General: Alert, In no apparent distress, Oriented x3 HEENT: Atraumatic, PERRLA, EOMI Neck: Supple, JVD not distended Respiratory: Clear to auscultation bilaterally, Normal air movement Cardiovascular: Regular rate/rhythm, Normal S1 S2 Gastrointestinal: Normal bowel sounds, No tenderness Musculoskeletal: No tenderness Integumentary: No rashes Neurological: Normal speech, Normal tone, Normal affect Lymphatics: No axilla or inguinal lymphadenopathy Laboratory Data at Discharge: WBC 10.1 K/uL (4.3-10.9) D 02/14/18 04:36 Hgb 14.2 g/dL (13.6-17.9) 02/14/18 04:36 Hct 42.1 % (39.6-49.0) 02/14/18 04:36 Plt Count 246 K/uL (152-406) 02/14/18 04:36 Sodium 139 mEq/L (135-145) 02/14/18 04:36 Potassium 4.2 mEq/L (3.6-5.0) 02/14/18 04:36 BUN 25 mg/dL (6-20) H 02/14/18 04:36 Creatinine 0.94 mg/dL (0.61-1.24) 02/14/18 04:36 Glucose 399 mg/dL (65-120) H 02/14/18 04:36 Magnesium 1.9 mg/dL (1.8-2.5) D 02/14/18 14:07 Troponin I 0.12 ng/mL (<0.03) H 02/14/18 14:07 B-Natriuretic Peptide 20 pg/ml (<=100) 02/13/18 17:55 Home Medications: Atorvastatin Calcium [Lipitor*] 20 mg PO BEDTIME 01/15/17 Fenofibrate [Tricor*] 160 mg PO DAILY 01/15/17 Lansoprazole [Prevacid] 30 mg PO DAILY 01/15/17 Metformin HCl [Glucophage] 1,000 mg PO BIDWM 01/15/17 Trazodone [Desyrel*] 50 mg PO BEDTIME 01/15/17 Oxycodone HCl/Acetaminophen [Oxycodone-Acetaminophen 10-325] 1 tab PO Q12H 02/27 Fluticasone/Salmeterol [Advair 250/50 Diskus*] 1 puff IH BID #1 disk 03/03/17 Clonazepam [Klonopin*] 1 mg PO QIDP PRN 04/03/17 Insulin Glargine,Hum.rec.anlog [Toujeo Solostar] 50 units SQ BEDTIME 04/03/17 Insulin Lispro [Humalog Kwikpen U-100] 24 unit SQ TID 04/03/17 Tiotropium [Spiriva Handihaler*] 1 puff IH DAILY 05/07/17 Metoprolol Succinate [Toprol Xl*] 50 mg PO [id number] #30 tab 07/17/17 Albuterol Neb [Proventil 0.083% Neb Soln] 2.5 mg NEB TID PRN #90 amp 12/21/17 Furosemide [Lasix*] 40 mg PO BIDL 12/21/17 Spironolactone [Aldactone*] 50 mg PO BID 12/21/17 Arformoterol Tartrate [Brovana] 15 mcg IH BID 02/14/18 Gabapentin [Neurontin] 600 mg PO TID 02/14/18 Ipratropium Neb [Atrovent*] 0.5 mg IH Q6H 02/14/18 Followup: Kevin Ramsey MD [ACTIVE - CAN ADMIT] - 1 Week Dre Mai MD [ACTIVE - CAN ADMIT] - 1-2 Weeks
== END 2018-02-15 12:35 | disposition home or self-care (01) | DRG 291 ==
LOC: ER 16:35 → ERHOLD 19:38 → 4TH 22:11
PROVIDERS: ADMIT Internal Medicine; ATTEND Family Medicine
DX: I50.33 Acute on chronic diastolic (congestive) heart failure (principal); J96.21 Acute and chronic respiratory failure with hypoxia; J18.9 Pneumonia, unspecified organism; J44.1 Chronic obstructive pulmonary disease with (acute) exacerbation; E11.9 Type 2 diabetes mellitus without complications; K21.9 Gastro-esophageal reflux disease without esophagitis; I10 Essential (primary) hypertension; E78.5 Hyperlipidemia, unspecified; I25.10 Atherosclerotic heart disease of native coronary artery without angina pectoris; F41.9 Anxiety disorder, unspecified; G47.33 Obstructive sleep apnea (adult) (pediatric); F32.9 Major depressive disorder, single episode, unspecified; E66.9 Obesity, unspecified; Z68.38 Body mass index [BMI] 38.0-38.9, adult; Z87.891 Personal history of nicotine dependence
CPT/HCPCS: 36415; 71045; 80048; 81003; 82962; 83735; 83880; 84484; 85025; 87040; 87077; 87186; 87205; 93005; 94640; 94760; 96374; 96375; 99285; J0456; J0696; J1650; J2920; J2930; J3475; J7512; J7605

== ENCOUNTER 2018-03-28 15:17 | Inpatient (IN) | payer MEDICARE, SELFPAY ==
--- OUTSIDE RECORDS SUMMARY | 2018-03-28 15:19 | XMS REPORT | Clinical Summary ---
:1955 Author Organization [facility] Address [address] [place] [address] Care Team Providers Name Role Phone Bebeto [...] LANCETS 33 gauge TWICE A DAY misc lancets (ONETOUCH 1 each 4 (four) 400 [...] U-100 TID. 1 mL 31 gauge x 5/16 syringe insulin glulisine Inject under Active U-100 (APIDRA the skin. SOLOSTAR U-100 Inject 30 units INSULIN) 100 unit/mL in the morning, insulin pen 32 units at lunch and 32 units at dinner plus sliding scale. metFORMIN Take 1,000 mg Active (GLUCOPHAGE) 1,000 by mouth 2 mg tablet (two) times a day with meals. enalapril (VASOTEC) Take 1 tablet 90 tablet 3 10/10/2016 07/19/20 Discontinued 20 MG (20 mg total) 17 tabletIndications: by mouth daily. Benign essential hypertension atorvastatin Take 1 tablet 90 tablet 3 10/10/2016 10/10/20 (LIPITOR) 20 MG (20 mg total) 17 tabletIndications: by mouth Mixed hyperlipidemia nightly. insulin lispro Inject 30 Units 90 mL [...] complication, with long-term current use of insulin blood-glucose meter Use as 1 each 0 03/01/2017 03/01/20 (ONETOUCH VERIO FLEX instructed 18 START) kitIndications: Type 2 diabetes mellitus with complication, with long-term current use of insulin blood sugar Check glucose 4 400 strip 3 03/01/2017 08/11/20 Discontinued diagnostic strips times a day 17 (ONETOUCH VERIO) strip test stripsIndications: Type 2 diabetes mellitus with complication, with long-term current use of insulin insulin lispro Inject 35 Units 105 mL 3 04/28/2017 03/20/20 Discontinued (HumaLOG KwikPen) under the skin 18 100 unit/mL 3 (three) times injection a [...] Encounters Date Type Specialty Care Team Description 03/22/2018 Documentation Endocrinology Susanna Laboy MA 03/22/2018 Orders Only Endocrinology Susanna Laboy MA 03/20/2018 Office Visit Endocrinology Kimi Jack, Uncontrolled type 2 diabetes mellitus with complication, unspecified farm 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 insulin use status (Primary Dx); Hyperlipidemia, unspecified hyperlipidemia type 03/20/2018 Ancillary Procedure Kimi Jack, 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, with long-term current use of insulin; Osteopenia, unspecified location 03/19/2018 Telephone Endocrinology Felicia Denton 03/06/2018 Orders Only Endocrinology Susanna Laboy MA 02/06/2018 Refill Endocrinology Alexander Mckeon Type 2 diabetes MD Madalyn mellitus with complication, with long-term current use of insulin 01/04/2018 Refill Endocrinology Alexander Mckeon Mixed hyperlipidemia MD Madalyn 01/02/2018 Orders Only Susanna Somers MA 12/27/2017 Documentation Susanna Somers MA 12/09/2017 Refill Endocrinology Alexander Mckeon Uncontrolled type 2 MD Madalyn diabetes mellitus with other circulatory complication, with long-term current use of insulin 12/01/2017 Office Visit Endocrinology Kimi Jack, 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, with long-term current use of insulin (Primary Dx); Osteopenia, unspecified location 08/14/2017 Orders Only Endocrinology Paulina, Type 2 diabetes LUIS MIGUEL [place] mellitus with complication, with long-term current use of insulin 08/11/2017 Office Visit Endocrinology Alexander Mckeon 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, with long-term current use of insulin (Primary Dx); MD Madalyn Type 2 diabetes mellitus with complication, with long-term current use of insulin; Benign essential hypertension; Mixed hyperlipidemia; Coronary artery disease involving [place] heart with angina pectoris, unspecified vessel or lesion type 07/19/2017 Orders Only Endocrinology Susanna Laboy, Jose essential MA hypertension 04/28/2017 Office Visit Endocrinology Alexander Mckeon 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, with long-term current use of insulin (Primary Dx); MD Madalyn Benign essential hypertension; Mixed hyperlipidemia; Coronary artery disease involving [place] heart with angina pectoris, unspecified vessel or lesion type; Type 2 diabetes mellitus with complication, with long-term current use of insulin 04/20/2017 Documentation Endocrinology Susanna Laboy MA after 03/27/2017 Family History Medical History Relation Name Comments [...] Vital Sign Reading Time Taken Blood Pressure 134/84 03/20/2018 10:20 AM CDT Pulse 84 03/20/2018 10:20 AM CDT Temperature 36.2 C (97.1 F) 12/01/2017 12:05 PM 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 Respiratory Rate 95 08/11/2017 9:18 AM CDT Oxygen Saturation 100% 03/20/2018 10:20 AM CDT Inhaled Oxygen Concentration - - Weight 113 kg (250 lb) 03/20/2018 10:20 AM CDT Height 170.2 cm (5' 7") 03/20/2018 10:20 AM CDT Body Mass Index 39.16 03/20/2018 10:20 AM CDT Plan of Treatment Date Type Specialty Care Team Description 07/24/2018 Office Visit Endocrinology Kimi Jack MD 1951 [facility] [address] [place] [id number] Health Maintenance Due Date Last Done Comments COLON CANCER SCREENING 2003 SHINGRIX VACCINE (#1) 2003 ZOSTER VACCINE 2013 DIABETIC FOOT EXAM 10/10/2017 10/10/2016, 10/10/2016, 07/18/2016 URINE MICROALBUMIN 01/07/2018 01/07/2017, 01/07/2017, 11/26/2015 INFLUENZA VACCINE 05/30/2018 07/27/2017, 08/10/2016, 07/13/2016 DIABETIC RETINAL EYE EXAM 04/28/2019 04/28/2017, 04/28/2016 Results POC glycosylated hemoglobin (Hb A1C) (03/20/2018 10:34 AM)Only the most recent of4 resultswithin the time period is included. Component Value Ref Range POC Hemoglobin A1C 8.6 % Specimen Performing Laboratory Blood POC glucose (03/20/2018 10:34 AM)Only the most recent of4 resultswithin the time period is included. Component Value Ref Range POC glucose 136Comment: non fasting 65 - 100 Specimen Performing Laboratory Blood Bone Density (03/20/2018 10:09 AM) Specimen Performing Laboratory [facility] [address] [place] [address] Narrative [facility] [address] [facility] [place] [address] Bone Density Report Name: Garrison Burnett Sex: Male Age: 62 Ethnicity: White Height: 64.0 in Referring Provider: KIMI JACK Date of : 1955 Weight: 249.8lb Indication: History of glucocorticoids Accession number: [id number] Bone Density: Exam date 03/20/2018 Region BMD (g/cm2) T-score Z-score Classification AP Spine(L1, L2) 0.847 -1.9 -1.1 Osteopenia Femoral Neck(Left) 0.748 -1.3 -0.3 Osteopenia Total Hip(Left) 0.903 -0.9 -0.4 Normal Femoral Neck(Right) 0.711 -1.6 -0.6 Osteopenia Total Hip(Right) 0.872 -1.1 -0.6 Osteopenia Total Hip Mean 0.888 -1.0 -0.5 Normal World Health Organization criteria for BMD impression classify patients as Normal (T-score at or above 1.0), Osteopenia (T-score between 1.0 and 2.5), or Osteoporosis (T-score at or below 2.5). 10-year Fracture Risk: Major Osteoporotic Fracture 8.4% Hip Fracture 1.3% Reported Risk Factors: [place] (), T-score(WHO)=-1.2, BMI=42.9, glucocorticoids FRAX Version 3.08. Fracture probability calculated for an untreated patient. Fracture probability may be lower if the patient has received treatment. Impression: Degenerative changes limit interpertation at the spine. L1-L2 were used for analysis. The patient has low bone mass, based on the Total Spine T-score. The patient has an estimated ten-year risk of hip fracture of 1.3% and an estimated ten-year risk of major fracture of 8.4%, based on the WHO FRAX algorithm for a patient not on therapy (NOF thresholds are 20% for a major fracture and 3% for a hip fracture). The patient has risk factors, including: history of glucocorticoid therapy. Discussion: BONE DENSITY IS LOW AT ONE OR MORE SKELETAL SITES. This patient's lowest T-score is low at one or more skeletal sites.It meets the World Health Organization's (WHO) criteria for low bone mass (T-score between -1.0 and -2.5). The patient's 10-year risk of fracture as calculated by FRAX is less than the threshold where pharmacological therapy is recommended by the National Osteoporosis Foundation (NOF).However, all treatment decisions require clinical judgment and consideration of individual patient factors, including patient preferences, comorbidities, previous drug use, risk factors not captured in the FRAX model (e.g., frailty, falls, vitamin D deficiency, increased bone turnover, interval significant decline in bone density) and possible under or overestimation of fracture risk by FRAX. The patient should follow a healthful lifestyle (good nutrition with adequate calcium and vitamin D, and appropriate weight-bearing exercise). Follow-Up: Consider repeating this study in 2 to 3 years to reassess this patient's status, or sooner if there is some new clinical indication. Reported by: Ellis Johnson MD, MAGALYS, MACE, FACP, CCD on 03/22/2018 7:20:00 AM. after 03/27/2017 Insurance Payer Benefit Plan / Group Subscriber ID Type Phone Address UHC MEDICARE AARP MEDICARE COMPLETE [employer] xxxxxxxxx HMO
[2018-03-28] MEDS ORDERED: METHYLPREDNISOLONE 125 MG INJ ONE (15:43)
[2018-03-28] MEDS ORDERED: IPRATROPIUM BROM 0.5MG/2.5ML ONE ×2 (15:43→19:47)
[2018-03-28] MEDS ORDERED: ALBUTEROL 2.5 MG/3 ML NEB SOL ONE ×3 (15:43→19:47)
[2018-03-28 16:06] LABS: Protime INR 1.06
[2018-03-28 16:07] LABS: Absolute Lymphocytes (CBC) 2.8 K/uL (0.7-4.9); Absolute Monocytes 0.5 K/uL (0.1-1.3); Absolute Neutrophil 6.2 K/uL (1.8-8.0); Basophils % 0.7 % (0-1.3); Eosinophils % 1.4 % (0-4.4); Hematocrit 43.5 % (39.6-49.0); Lymphocytes % 28.6 % (15.3-44.8); MCH 29.5 pg (27.0-35.0); MCV 88.9 fL (80-100); MPV 8.1 fL (7.6-11.3); Monocytes % 5.6 % (3.3-12.3); RBC Red Blood Cell Count 4.89 M/uL (4.33-5.43)
[2018-03-28 16:19] LABS: Potassium 3.8 mEq/L (3.6-5.0)
[2018-03-28 16:25] LABS: Bilirubin Direct 0.1 mg/dL (0-0.2); Bilirubin Total 0.4 mg/dL (0.3-1.2); Magnesium 1.7 mg/dL (1.8-2.5); Protein, Total 7.4 g/dL (6.0-8.3)
[2018-03-28] MEDS ORDERED: MAGNESIUM SULFATE 1 gm IVPB 1 GM/100 ML BAG IV ONE (16:35)
--- NOTE | 2018-03-28 17:03 | RAD REPORT ---
EXAM DESCRIPTION: RAD - Chest Single View - 03/28/2018 4:37 pm CLINICAL HISTORY: Progressive shortness of breath, dyspnea COMPARISON: February 13 TECHNIQUE: AP portable chest image was obtained 1623 hours . FINDINGS: Inspiratory effort is very shallow accentuating heart, vasculature and lung markings. The shallow inspiration, portable technique and large body habitus are limiting. No diffuse pulmonary ravi ma or large infiltrate seen. More mild failure or volume overload could be masked in this setting. Lung base pneumonia is could be masked by the poor inspiratory effort. Heart and vasculature within normal limits for the shallow inspiration portable technique. No measur able pleural effusion and no pneumothorax. No gross bony abnormality seen. No acute aortic findings s uspected. IMPRESSION: Exam is very limited. Early failure or volume overload could be masked. Posterior lung base infiltrates could be mass. Significant change from January is doubtful.
[2018-03-28] MEDS ORDERED: NA CHLORIDE 0.9% 1,000 ML ONE (17:07)
[2018-03-28] MEDS ORDERED: HYDROCODONE/APAP 10/325 TAB ONE (17:24)
[2018-03-28] MEDS ORDERED: Levofloxacin500mg IV 500 MG/100 ML BAG IV ONE (17:35)
--- NOTE | 2018-03-28 17:36 | ER ---
Nurse's Notes [facility] Name: Asim Burnett Age: 62 yrs Sex: Male : 1955 Arrival Date: 03/28/2018 Time: 15:20 Bed 13 Private MD: Bebeto Jaffe H Diagnosis: Acute and chronic respiratory failure with hypercapnia;Reactive Airway Disease ;Hypotension Presentation: 03/28 15:34 Presenting complaint: Patient states: has had difficulty breathing over past 3-4 days iw but has gotten worse today, pt has hx of "breathing problems" but not diagnosed with COPD or asthma, pt uses CPAP at night, and is usually on 3 L NC at home, pt 93% on RA, tachypneic at 34 breaths per minute, also c/o chest tightness. Transition of care: patient was not received from another setting of care. Onset of symptoms was March 25, 2018. Risk Assessment: Do you want to hurt yourself or someone else? Patient reports no desire to harm self or others. Initial Sepsis Screen: Does the patient meet any 2 criteria? No. Patient's initial sepsis screen is negative. Does the patient have a suspected source of infection? No. Patient's initial sepsis screen is negative. Care prior to arrival: None. 15:34 Method Of Arrival: Wheelchair iw 15:34 Acuity: ORACIO 2 iw Triage Assessment: 15:37 Respiratory: Reports shortness of breath Onset: The symptoms/episode began/occurred tw2 "couple of days now", the patient has moderate shortness of breath. Historical: - Allergies: 15:40 Ibuprofen; iw - Home Meds: 17:54 Advair Diskus 250-50 mcg/dose Inhl dsdv 1 puff 2 times per day [Active]; atorvastatin tw2 20 mg Oral tab 1 tab once daily [Active]; clonazepam 1 mg Oral tab 1 tab QID PRN [Active]; enalapril maleate 20 mg Oral tab 1 tab once daily [Active]; fenofibrate 160 mg Oral tab 1 tab once daily [Active]; furosemide 20 mg Oral tab 1 tab once daily [Active]; gabapentin 600 mg Oral tab 1 tab 3 times per day [Active]; trazodone 50 mg Oral tab 1 tab nightly [Active]; Toujeo SoloStar 300 unit/mL (1.5 mL) subcutaneous inpn 50 unit nightly [Active]; spironolactone 25 mg Oral tab 1 tab once daily [Active]; Spiriva with HandiHaler 18 mcg inhalation CpDv 1 cap once daily [Active]; Humalog 100 unit/mL Sub-Q soln 24 unit three times a day [Active]; lansoprazole 30 mg Oral cpDR 1 cap once daily [Active]; metformin 1,000 mg Oral TG24 1 tab 2 times per day [Active]; oxycodone-acetaminophen 10-325 mg Oral tab 1 tab twice a day [Active]; - PMHx: 15:40 Anxiety; Depression; Diabetes - IDDM; High Cholesterol; Hypertension; iw - PSHx: 15:40 Cholecystectomy; abdomen opened to repair punctured pancreas; left foot surgery; iw - Immunization history:: Adult Immunizations up to date. - Social history:: Smoking status: Patient/guardian denies using tobacco. - Ebola Screening: : Patient denies travel to an Ebola-affected area in the 21 days before illness onset. Screenin:41 Abuse screen: Denies threats or abuse. Denies injuries from another. Nutritional iw screening: No deficits noted. Tuberculosis screening: No symptoms or risk factors identified. Fall Risk IV access (20 points). Assessment: 15:34 General: Appears distressed, obese, Behavior is calm, cooperative, appropriate for age. tw2 Pain: Complains of pain in chest. Neuro: Level of Consciousness is awake, alert, obeys commands, Oriented to person, place, time, situation. Cardiovascular: Reports chest pain, shortness of breath, more shortness of breath for the past several days now Heart tones S1 S2 Capillary refill < 3 seconds Patient's skin is warm and dry. Rhythm is sinus rhythm. Cardiovascular: Edema present in b/l LE, 1+. Respiratory: Airway is patent Respiratory effort is even, labored, Respiratory pattern is hyperventilation tachypnea Breath sounds are diminished bilaterally. GI: Abdomen is round obese, Bowel sounds present X 4 quads. Abd is soft X 4 quads. : No signs and/or symptoms were reported regarding the genitourinary system. EENT: No signs and/or symptoms were reported regarding the EENT system. Derm: Skin is intact, is healthy with good turgor, Skin temperature is warm. 16:24 Reassessment: No changes from previously documented assessment. Patient and/or family tw2 updated on plan of care and expected duration. Pain level reassessed. provider notified Patient states symptoms have not improved. 17:10 Reassessment: No changes from previously documented assessment. Patient and/or family tw2 updated on plan of care and expected duration. Pain level reassessed. pt appears drowsy, but easily arousable, provider notified and at bedside at this time asking about "too much medication for blood pressure". 18:15 Reassessment: Patient and/or family updated on plan of care and expected duration. Pain tw2 level reassessed. with bipap in place wob has decreased. Patient states feeling better. 18:43 Reassessment: Patient appears in no apparent distress at this time. Patient and/or tw2 family updated on plan of care and expected duration. Pain level reassessed. 19:45 General: Appears in no apparent distress. uncomfortable, Behavior is calm, cooperative, aj1 listless. Pain: Denies pain. Neuro: Level of Consciousness is awake, listless, Oriented to person, place, time, situation. Cardiovascular: Heart tones S1 S2 present Patient's skin is warm and dry. Rhythm is sinus rhythm. Respiratory: Airway is patent Respiratory effort is even, unlabored, Respiratory pattern is regular, symmetrical, Breath sounds are diminished bilaterally. GI: No signs and/or symptoms were reported involving the gastrointestinal system. : No signs and/or symptoms were reported regarding the genitourinary system. EENT: No signs and/or symptoms were reported regarding the EENT system. Derm: No signs and/or symptoms reported regarding the dermatologic system. Skin is pink, warm \\T\\ dry. Musculoskeletal: No signs and/or symptoms reported regarding the musculoskeletal system. Circulation, motion, and sensation intact. 19:53 Reassessment: Attempted to call report to 2nd floor, charge nurse Sheryl states that they aj1 are not ready to receive this patient because she has not told the receiving nurse that she is getting the patient. States the receiving nurse will call back. Vital Signs: 15:36 BP 111 / 80; Pulse 95; Resp 40; Pulse Ox 96% on 3 lpm NC; tw2 15:36 BP 123 / 77; Pulse 99; Resp 34 S; Temp 98.2; Pulse Ox 93% on R/A; Weight 113.4 kg; iw Height 5 ft. 6 in. (167.64 cm); Pain 9/10; 16:25 BP 95 / 67; Pulse 61; Resp 38; Pulse Ox 92% on 3 lpm NC; tw2 16:37 BP 95 / 67; Pulse 97; Resp 35; Pulse Ox 93% on 3 lpm NC; tw2 17:10 BP 88 / 60 RA; tw2 17:10 BP 86 / 65 LA; Pulse 94; Pulse Ox 93% on 4 lpm NC; tw2 18:13 BP 85 / 67; Pulse 88; Resp 18; Pulse Ox 94% on 40% BiPAP; tw2 18:40 BP 85 / 67; Pulse 87; Resp 19; Pulse Ox 93% on BiPAP; tw2 19:13 BP 93 / 59; Pulse 88; Resp 22; Pulse Ox 93% on R/A; tw2 19:48 BP 98 / 61; Pulse 79; Resp 22; Temp 97.5; Pulse Ox 97% on BiPAP; aj1 19:54 BP 92 / 60; Pulse 78; Resp 20; Pulse Ox 97% on BiPAP; mt 20:58 BP 98 / 64; Pulse 80; Resp 20; Pulse Ox 97% on BiPAP; mt 15:36 Body Mass Index 40.35 (113.40 kg, 167.64 cm) iw 15:36 provider notified. tw2 16:37 provider aware tw2 17:10 provider notified. bolus ordered tw2 18:13 18/8 fio2 40% tw2 18:40 provider notified, 500 NS bolus ordered at this time per Dony Pradhan tw2 ED Course: 15:20 Patient arrived in ED. mr 15:20 Bebeto Jaffe DO is Private Physician. mr 15:29 Abigail Keita, RN is Primary Nurse. tw2 15:31 [facility]. jr8 15:31 Surjit Unger MD is Attending Physician. jr8 15:31 Placed in gown. Bed in low position. Side rails up X2. Adult w/ patient. Cardiac tw2 monitor on. Pulse ox on. NIBP on. 15:36 Triage completed. iw 15:36 Arm band placed on. iw 15:53 EKG done, by drain technician. reviewed by Reji SCHWARZ. at1 15:53 No provider procedures requiring assistance completed. Inserted saline lock: 22 gauge tw2 in left antecubital area, using aseptic technique. Blood collected. 16:37 X-ray completed. Portable x-ray completed in exam room. Patient tolerated procedure jb2 well. 16:38 XRAY Chest (1 view) In Process Unspecified. EDMS 17:35 Jose Carpio MD is Hospitalizing Provider. jr8 17:44 BIPAP Sent. tw2 19:20 Report given to MILLA Salazar. tw2 19:20 Straight cath inserted, using sterile technique, 18 Fr. Specimen obtained. 30 ml urine tw2 returned. 19:32 UDS Sent. tw2 20:00 Patient admitted, IV remains in place. aj1 20:34 Report given to MILLA Rosales on 2nd floor. aj1 Administered Medications: 15:45 Drug: Albuterol - atroVENT (3:1) (2.5 mg - 0.5 mg) 3 ml Route: Nebulizer; tw2 19:11 Follow up: Response: No adverse reaction tw2 15:51 Drug: SOLU-Medrol 125 mg Route: IVP; Site: left antecubital; tw2 16:43 Follow up: Response: No adverse reaction tw2 16:42 Drug: Magnesium Sulfate 1 grams Route: IVPB; Infused Over: 1 hrs; Site: left tw2 antecubital; 17:40 Follow up: Response: No adverse reaction; IV Status: Completed infusion tw2 17:10 Drug: NS 0.9% 500 ml Route: IV; Rate: bolus; Site: left antecubital; tw2 17:46 Follow up: Response: No adverse reaction; IV Status: Completed infusion; IV Intake: tw2 500ml 17:27 Drug: [place] 10 mg-325 mg 1 tabs Route: PO; tw2 17:50 Follow up: Response: No adverse reaction tw2 17:30 Drug: Albuterol 2.5 mg {Note: with bipap.} Route: Inhalation; tw2 17:35 Drug: Albuterol 2.5 mg {Note: with bipap in place.} Route: Inhalation; tw2 17:40 Drug: LevaQUIN 500 mg Volume: 100 ml; Route: IVPB; Infused Over: 60 mins; Site: left tw2 antecubital; 19:12 Follow up: Response: No adverse reaction; IV Status: Completed infusion tw2 17:40 Drug: Albuterol 2.5 mg {Note: with bipap.} Route: Inhalation; tw2 19:12 Follow up: Response: No adverse reaction tw2 Point of Care Testing: Blood Glucose: 18:47 Blood Glucose: 161 mg/dL; tw2 Ranges: Intake: 17:46 IV: 500ml; Total: 500ml. tw2 Outcome: 17:35 Decision to Hospitalize by Provider. jr8 21:08 Admitted to Tele accompanied by tech, via wheelchair, with oxygen, with chart. aj1 21:08 Condition: stable 21:08 Discharge instructions given to patient, Instructed on the need for admit, Demonstrated understanding of instructions. 21:09 Patient left the ED. aj1 Signatures: Dispatcher [employer] EDMS Georgia Zabala RN RN aj1 Denise Malloy mr [employer] jb2 Renea Mariano RN RN iw Reji Santoro PA PA jr8 Ariana wright, family preservation worker EKG Tat1 Abigail Keita RN RN tw2 Caitlin Burleson nm Corrections: (The following items were deleted from the chart) 15:37 15:34 Presenting complaint: Patient states: has had difficulty breathing over past 3-4 iw days but has gotten worse today, pt has hx of "breathing problems" but not diagnosed with COPD or asthma, pt uses CPAP at night, and is usually on 3 L NC at home, pt 93% on RA, tachypneic at 34 breaths per minute iw 15:38 15:36 BP 123 / 77; Pulse 99bpm; Resp 30bpm; Spontaneous; Pulse Ox 93% RA; Temp 98.2F; iw 113.4 kg; Height 5 ft. 6 in.; BMI: 40.3; Pain 9/10; iw 18:14 17:10 BP 86 / 65 L Arm; provider notified. bolus ordered; tw2 tw2 18:14 17:10 BP 86 / 65 L Arm; Pulse 94bpm; Pulse Ox 93% 3 lpm Nasal Cannula; provider tw2 notified. bolus ordered; tw2 18:44 16:24 Reassessment: No changes from previously documented assessment. Patient and/or tw2 family updated on plan of care and expected duration. Pain level reassessed. Patient is alert, oriented x 3, equal unlabored respirations, skin warm/dry/pink. provider notified Patient states symptoms have not improved. tw2 18:44 18:15 Reassessment: Patient and/or family updated on plan of care and expected tw2 duration. Pain level reassessed. Patient is alert, oriented x 3, equal unlabored respirations, skin warm/dry/pink. with bipap in place wob has decreased. Patient states feeling better. tw2 :44 17:10 Reassessment: No changes from previously documented assessment. Patient and/or tw2 family updated on plan of care and expected duration. Pain level reassessed. Patient is alert, oriented x 3, equal unlabored respirations, skin warm/dry/pink. tw2
--- NOTE | 2018-03-28 17:36 | EDPHYS ---
Physician Documentation [facility] Name: Asim Burnett Age: 62 yrs Sex: Male : 1955 Arrival Date: 03/28/2018 Time: 15:20 Bed 13 Private MD: Bebeto Jaffe H ED Physician Surjit Unger HPI: 03/28 16:02 This 62 yrs old Male presents to ER via Wheelchair with complaints of jr8 Shortness Of Breath, Trouble Walking. 16:02 The patient has shortness of breath at rest. Onset: The symptoms/episode began/occurred jr8 gradually, 3 day(s) ago, and became worse and became persistent. Duration: The symptoms are continuous. The patient's shortness of breath is aggravated by walking. Associated signs and symptoms: The patient has no apparent associated signs or symptoms. Severity of symptoms: At their worst the symptoms were moderate in the emergency department the symptoms are unchanged. The patient has experienced similar episodes in the past, several times. The patient has not recently seen a physician. Historical: - Allergies: 15:40 Ibuprofen; iw - Home Meds: 17:54 Advair Diskus 250-50 mcg/dose Inhl dsdv 1 puff 2 times per day [Active]; atorvastatin tw2 20 mg Oral tab 1 tab once daily [Active]; clonazepam 1 mg Oral tab 1 tab QID PRN [Active]; enalapril maleate 20 mg Oral tab 1 tab once daily [Active]; fenofibrate 160 mg Oral tab 1 tab once daily [Active]; furosemide 20 mg Oral tab 1 tab once daily [Active]; gabapentin 600 mg Oral tab 1 tab 3 times per day [Active]; trazodone 50 mg Oral tab 1 tab nightly [Active]; Toujeo SoloStar 300 unit/mL (1.5 mL) subcutaneous inpn 50 unit nightly [Active]; spironolactone 25 mg Oral tab 1 tab once daily [Active]; Spiriva with HandiHaler 18 mcg inhalation CpDv 1 cap once daily [Active]; Humalog 100 unit/mL Sub-Q soln 24 unit three times a day [Active]; lansoprazole 30 mg Oral cpDR 1 cap once daily [Active]; metformin 1,000 mg Oral TG24 1 tab 2 times per day [Active]; oxycodone-acetaminophen 10-325 mg Oral tab 1 tab twice a day [Active]; - PMHx: 15:40 Anxiety; Depression; Diabetes - IDDM; High Cholesterol; Hypertension; iw - PSHx: 15:40 Cholecystectomy; abdomen opened to repair punctured pancreas; left foot surgery; iw - Immunization history:: Adult Immunizations up to date. - Social history:: Smoking status: Patient/guardian denies using tobacco. - Ebola Screening: : Patient denies travel to an Ebola-affected area in the 21 days before illness onset. ROS: 16:02 Eyes: Negative for injury, pain, redness, and discharge, ENT: Negative for injury, jr8 pain, and discharge, Neck: Negative for injury, pain, and swelling, Abdomen/GI: Negative for abdominal pain, nausea, vomiting, diarrhea, and constipation, Back: Negative for injury and pain, MS/Extremity: Negative for injury and deformity, Skin: Negative for injury, rash, and discoloration, Neuro: Negative for headache, weakness, numbness, tingling, and seizure. 16:02 Cardiovascular: Positive for chest pain. 16:02 Respiratory: Positive for dyspnea on exertion, shortness of breath, wheezing. Exam: 16:02 Eyes: Pupils equal round and reactive to light, extra-ocular motions intact. Lids and jr8 lashes normal. Conjunctiva and sclera are non-icteric and not injected. Cornea within normal limits. Periorbital areas with no swelling, redness, or edema. ENT: Nares patent. No nasal discharge, no septal abnormalities noted. Tympanic membranes are normal and external auditory canals are clear. Oropharynx with no redness, swelling, or masses, exudates, or evidence of obstruction, uvula midline. Mucous membranes moist. Neck: Trachea midline, no thyromegaly or masses palpated, and no cervical lymphadenopathy. Supple, full range of motion without nuchal rigidity, or vertebral point tenderness. No Meningismus. Cardiovascular: Regular rate and rhythm with a normal S1 and S2. No gallops, murmurs, or rubs. Normal PMI, no JVD. No pulse deficits. Abdomen/GI: Soft, non-tender, with normal bowel sounds. No distension or tympany. No guarding or rebound. No evidence of tenderness throughout. Back: No spinal tenderness. No costovertebral tenderness. Full range of motion. Skin: Warm, dry with normal turgor. Normal color with no rashes, no lesions, and no evidence of cellulitis. MS/ Extremity: Pulses equal, no cyanosis. Neurovascular intact. Full, normal range of motion. Neuro: Awake and alert, GCS 15, oriented to person, place, time, and situation. Cranial nerves II-XII grossly intact. Motor strength 5/5 in all extremities. Sensory grossly intact. Cerebellar exam normal. Normal gait. 16:02 Respiratory: mild respiratory distress is noted, Respirations: tachypnea, Breath sounds: decreased breath sounds, that are moderate, are located in both bases, wheezing: expiratory that is mild, is heard diffusely. Vital Signs: 15:36 BP 111 / 80; Pulse 95; Resp 40; Pulse Ox 96% on 3 lpm NC; tw2 15:36 BP 123 / 77; Pulse 99; Resp 34 S; Temp 98.2; Pulse Ox 93% on R/A; Weight 113.4 kg; iw Height 5 ft. 6 in. (167.64 cm); Pain 9/10; 16:25 BP 95 / 67; Pulse 61; Resp 38; Pulse Ox 92% on 3 lpm NC; tw2 16:37 BP 95 / 67; Pulse 97; Resp 35; Pulse Ox 93% on 3 lpm NC; tw2 17:10 BP 88 / 60 RA; tw2 17:10 BP 86 / 65 LA; Pulse 94; Pulse Ox 93% on 4 lpm NC; tw2 18:13 BP 85 / 67; Pulse 88; Resp 18; Pulse Ox 94% on 40% BiPAP; tw2 18:40 BP 85 / 67; Pulse 87; Resp 19; Pulse Ox 93% on BiPAP; tw2 19:13 BP 93 / 59; Pulse 88; Resp 22; Pulse Ox 93% on R/A; tw2 19:48 BP 98 / 61; Pulse 79; Resp 22; Temp 97.5; Pulse Ox 97% on BiPAP; aj1 19:54 BP 92 / 60; Pulse 78; Resp 20; Pulse Ox 97% on BiPAP; mt 20:58 BP 98 / 64; Pulse 80; Resp 20; Pulse Ox 97% on BiPAP; mt 15:36 Body Mass Index 40.35 (113.40 kg, 167.64 cm) iw 15:36 provider notified. tw2 16:37 provider aware tw2 17:10 provider notified. bolus ordered tw2 18:13 18/8 fio2 40% tw2 18:40 provider notified, 500 NS bolus ordered at this time per Dony Pradhan tw2 MDM: 15:31 Patient medically screened. 17:30 Data reviewed: vital signs, nurses notes, lab test result(s), EKG, radiologic studies, jr plain films, and as a result, I will admit patient. Data interpreted: Pulse oximetry: on 3L(s) per nasal canula, is 92 %. Interpretation: borderline. Counseling: I had a detailed discussion with the patient and/or guardian regarding: the historical points, exam findings, and any diagnostic results supporting the discharge/admit diagnosis, lab results, radiology results, the need for further work-up and treatment in the hospital. ED course: Patient with only minimal improvement after breathing treatments. ABG reveals hypoxia/hypoxemia with acidosis. Will put on BiPAP with in line nebs and admit . 03/28 15:45 Order name: Basic Metabolic Panel; Complete Time: 16:26 rust 03/28 15:45 Order name: BNP; Complete Time: 16:43 rust 03/28 15:45 Order name: CBC with Diff; Complete Time: 16:13 rust 03/28 15:45 Order name: LFT's; Complete Time: 16:26 rust 03/28 15:45 Order name: Magnesium; Complete Time: 16:26 rust 03/28 15:45 Order name: PT-INR; Complete Time: 16:14 rust 03/28 15:45 Order name: Troponin (emerg Dept Use Only); Complete Time: 16:26 rust 03/28 17:07 Order name: Blood Culture Adult (2) rust 03/28 17:07 Order name: Procalcitonin; Complete Time: 17:48 rust 03/28 17:07 Order name: ABG; Complete Time: 17:46 rust 03/28 17:43 Order name: Basic Metabolic Panel [facility] 03/28 17:43 Order name: Basic Metabolic Panel [facility] 03/28 17:43 Order name: Basic Metabolic Panel [facility] 03/28 17:43 Order name: Basic Metabolic Panel [facility] 03/28 15:45 Order name: XRAY Chest (1 view); Complete Time: 17:06 8 03/28 17:22 Order name: BIPAP rust 03/28 17:43 Order name: CBC with Automated Diff EDMS 03/28 17:43 Order name: CBC with Automated Diff EDMS 03/28 17:43 Order name: CBC with Automated Diff EDMS 03/28 17:43 Order name: CBC with Automated Diff EDMS 03/28 18:49 Order name: Glucose, Ancillary Testing; Complete Time: 19:07 EDVA 03/28 19:21 Order name: UDS rust 03/28 19:36 Order name: Urine Dipstick--Ancillary (enter results) 03/28 19:38 Order name: Urine Dipstick-Ancillary; Complete Time: 19:59 EDVA 03/28 19:47 Order name: Urine Drug Screen; Complete Time: 19:59 [facility] 03/28 15:45 Order name: EKG; Complete Time: 15:45 rust 03/28 15:45 Order name: Cardiac monitoring; Complete Time: 15:52 rust 03/28 15:45 Order name: EKG - Nurse/Tech; Complete Time: 16:33 rust 03/28 15:45 Order name: IV Saline Lock; Complete Time: 15:52 rust 03/28 15:45 Order name: Labs collected and sent; Complete Time: 15:52 rust 03/28 15:45 Order name: O2 Per Protocol; Complete Time: 15:52 rust 03/28 15:45 Order name: O2 Sat Monitoring; Complete Time: 15:52 rust 03/28 15:45 Order name: Urine Dipstick-Ancillary (obtain specimen); Complete Time: 19:40 rust 03/28 17:43 Order name: CONS Physician Consult [facility] 03/28 17:43 Order name: Consistent Carb (ADA) [address] EDVA 03/28 17:43 Order name: Respiratory Therapy Consult [facility] 03/28 19:22 Order name: Straight Cath; Complete Time: 19:32 jr8 Administered Medications: 15:45 Drug: Albuterol - atroVENT (3:1) (2.5 mg - 0.5 mg) 3 ml Route: Nebulizer; tw2 19:11 Follow up: Response: No adverse reaction tw2 15:51 Drug: SOLU-Medrol 125 mg Route: IVP; Site: left antecubital; tw2 16:43 Follow up: Response: No adverse reaction tw2 16:42 Drug: Magnesium Sulfate 1 grams Route: IVPB; Infused Over: 1 hrs; Site: left tw2 antecubital; 17:40 Follow up: Response: No adverse reaction; IV Status: Completed infusion tw2 17:10 Drug: NS 0.9% 500 ml Route: IV; Rate: bolus; Site: left antecubital; tw2 17:46 Follow up: Response: No adverse reaction; IV Status: Completed infusion; IV Intake: tw2 500ml 17:27 Drug: [place] 10 mg-325 mg 1 tabs Route: PO; tw2 17:50 Follow up: Response: No adverse reaction tw2 17:30 Drug: Albuterol 2.5 mg {Note: with bipap.} Route: Inhalation; tw2 17:35 Drug: Albuterol 2.5 mg {Note: with bipap in place.} Route: Inhalation; tw2 17:40 Drug: LevaQUIN 500 mg Volume: 100 ml; Route: IVPB; Infused Over: 60 mins; Site: left tw2 antecubital; 19:12 Follow up: Response: No adverse reaction; IV Status: Completed infusion tw2 17:40 Drug: Albuterol 2.5 mg {Note: with bipap.} Route: Inhalation; tw2 19:12 Follow up: Response: No adverse reaction tw2 Point of Care Testing: Blood Glucose: 18:47 Blood Glucose: 161 mg/dL; tw2 Ranges: Critical Glucose Levels:Adult <50 mg/dl or >400 mg/dl <40 mg/dl or >180 mg/dl Disposition: 17:44 Critical Care:. jr8 03/29 07:28 Co-signature as Attending Physician, Surjit Unger MD I agree with the assessment and kdr plan of care. Disposition: 03/28/18 17:35 Hospitalization ordered by Jose Carpio for Inpatient Admission. Preliminary diagnosis are Acute and chronic respiratory failure with hypercapnia, Reactive Airway Disease , Hypotension. - Bed requested for Telemetry/MedSurg (Inpatient). - Status is Inpatient Admission. aj1 - Condition is Fair. - Problem is new. - Symptoms are unchanged. UTI on Admission? No Critical care time excluding procedures: 03/28 17:44 Critical care time: Bedside Care: 10 minutes, Consultation: 10 minutes, 20 minutes jr8 reviewing labs and imaging : 20 minutes. Total time: 40 minutes Signatures: Dispatcher [employer] EDMS Georgia Zabala RN RN aj1 Surjit Unger MD MD [facility] Renea Mariano RN RN Reji Santoro PA PA jr8 Abigail Keita RN RN tw2 Peri Millard RN RN df Corrections: (The following items were deleted from the chart) 18:46 17:35 Hospitalization Ordered by Jose Carpio MD for Inpatient Admission. Preliminary df diagnosis is Acute and chronic respiratory failure with hypercapnia; Reactive Airway Disease ; Hypotension. Bed requested for Telemetry/MedSurg (Inpatient). Status is Inpatient Admission. Condition is Fair. Problem is new. Symptoms are unchanged. UTI on Admission? No. jr8 19:22 19:10 [place]s ordered. jr8 jr8 21:09 18:46 03/28/2018 17:35 Hospitalization Ordered by Jose Carpio MD for Inpatient aj1 Admission. Preliminary diagnosis is Acute and chronic respiratory failure with hypercapnia; Reactive Airway Disease ; Hypotension. Bed requested for Telemetry/MedSurg (Inpatient). Status is Inpatient Admission. Condition is Fair. Problem is new. Symptoms are unchanged. UTI on Admission? No. df
[2018-03-28] MEDS ORDERED: ACETAMINOPHEN 500 MG TAB PO PRN (17:39)
[2018-03-28] MEDS ORDERED: ONDANSETRON 4 MG/2 ML VIAL IV PRN (17:39)
[2018-03-28 17:40] LABS: Arterial Blood Carboxyhemoglob 1.1 % (0-1.5); Blood Gas Oxyhemoglobin 89.2 % (94-97); Blood O2 Saturation 91.3 % (92-98.5)
[2018-03-28] MEDS ORDERED: GLUCAGON 1 MG/VIAL IM PRN (17:57)
[2018-03-28] MEDS ORDERED: D50W 25 GM/50 ML SYRINGE IV PRN (17:57)
--- NOTE | 2018-03-28 18:29 | EKG ---
Test Date: 2018-03-28 Test Time: 15:54:38 Laster Hand: KELLY MEASUREMENT RESULTS: Intervals: Rate: 94 IL: 162 QRSD: 96 QT: 360 QTc: 450 [place]: P: 15 IL: 162 QRS: -31 T: 43 INTERPRETIVE STATEMENTS: Normal sinus rhythm Left axis deviation Abnormal ECG Compared to ECG 02/13/2018 19:26:45 Left-axis deviation now present Electronically Signed On 03-28-18 18:29:13 CDT by Dre Mai
[2018-03-28 19:38] LABS: Urine Blood NEGATIVE (NEG); Urine Glucose TRACE (NEG); Urine Protein NEGATIVE (NEG); Urine pH 5.5 (5.0-7.0)
[2018-03-28 19:47] LABS: Barbiturates NEGATIVE; Benzodiazepines POSITIVE; Cocaine NEGATIVE; METHAMPHETAM NEGATIVE (NEGATIVE); Opiates NEGATIVE; Phencyclidine NEGATIVE; THC Cannibis NEGATIVE
[2018-03-28] MEDS: IPRATROPIUM BROM 0.5MG/2.5ML NEB SCH (19:50)
[2018-03-28] MEDS: ALBUTEROL 2.5 MG/3 ML NEB SOL NEB SCH (19:50)
[2018-03-28 21:23] VITALS: BMI 41.3
[2018-03-28] MEDS: ENOXAPARIN 40 MG/0.4 ML SQ SCH (21:42)
[2018-03-28] MEDS: INSULIN -REGULAR HUMAN 50 UNIT/0.5 ML ML SQ SCH (21:43)
[2018-03-29] MEDS: METHYLPREDNISOLONE 40 MG INJ IV SCH ×3 (00:26→17:25)
[2018-03-29] MEDS: TRAMADOL HCL 50 MG TAB PO PRN ×3 (00:26→17:33)
[2018-03-29] MEDS: IPRATROPIUM BROM 0.5MG/2.5ML NEB SCH ×4 (02:18→19:45)
[2018-03-29] MEDS: ALBUTEROL 2.5 MG/3 ML NEB SOL NEB SCH ×4 (02:18→19:45)
--- NOTE | 2018-03-29 04:47 | HP ---
Date of Admission: 03/28/2018 Chief Complaint: Shortness of breath. Primary Care Physician: Dr. Jaffe. Computational Theory Scientist: Kevin Ramsey MD, with Pulmonology. History Of Present Illness: The patient is a 62-year-old male with past medical history of diabetes, hypertension, hyperlipidemia, GERD, obstructive sleep apnea on CPAP, severe restrictive lung disease , who was in his usual state of health until few days prior to admission when the patient had sudden onset of shortness of breath more than his usual. The patient's shortness of breath progressively go t worse. He states that he has been taking his nebulizer treatments, however, has not really helped, worse with exertion. The patient does report some cough that is dry. No ill contacts. No fevers o r chills. Some nausea. The patient came into the ER for progressively worsening symptoms. Upon arr ival, his vital signs showed hypertension, blood pressure 95/67. He was very tachypneic. Respiratio ns in the 40s, saturating 92% on 3 L. The patient's workup revealed early failure of volume overload . Posterior lung base infiltrates could be mass, significant change from apical is doubtful. His wo rkup revealed normal white count. His ABG however showed some acidosis, pH 7.33, pCO2 was 52, pO2 wa s 64. Troponin was 0.07. Procalcitonin was negative. The patient was then referred for admission. He was given IV fluids, steroids, magnesium, breathing treatments, and started on IV antibiotics. W hen seen in the ER, he was awake, alert, oriented x3, in some moderate respiratory distress due to sh ortness. Past Medical History: Diabetes, hypertension, hyperlipidemia, anxiety, depression, gastroesophageal reflux disease, obstructive sleep apnea, restrictive lung disease. The patient is on 4 L of home O2. Past Surgical History: Pancreatic surgery, cholecystectomy, several back surgeries, in 2009 had ERCP , had complication with puncture in his pancreas, transferred to [facility] for an exploratory laparot joe, having feeding tube that was reversed, trach from previous surgery at [facility]. Allergies: TO IBUPROFEN. Medications: List reviewed. Social History: The patient is a former smoker. No alcohol or illicit drug use. Family History: Father had heart disease, diabetes. Mother had heart disease, hypertension, lung di sease, GI disease, diabetes, stroke, liver disease, kidney disease. Brother also had similar issues. Sister also had heart disease and GI disease. Review of Systems: Ten point system reviewed, negative except as per HPI. Physical Examination: Vital Signs: Temperature 98.2, heart rate 61, blood pressure 95/67, pulse 92% on 3 L nasal cannula. Respirations 38. General: Awake, alert, oriented x3, in some moderate distress due to shortness of breath, ill-appear ing elderly male, morbidly obese. HEENT: Normocephalic, atraumatic. PERRLA. EOMI. Moist mucous membranes. Oropharynx is clear. Po or dentition. Conjunctiva anicteric. Neck: Supple. No JVD. Trachea midline. CV: S1, S2. No murmurs. Peripheral pulses present bilaterally. Respiratory: Diminished breath sounds. Some wheezing is heard. The patient is very tachypneic. Us e of accessory muscles is present. Gastrointestinal: Abdomen is soft, nontender, nondistended. Positive bowel sounds. No guarding or rigidity. No palpable masses. Extremities: No clubbing or cyanosis. The patient does have 2+ edema in bilateral lower extremities . No calf tenderness. Neurologic: Cranial nerves II through XII intact grossly. No focal neurological deficit. Speech is normal. Strength is symmetric in bilateral upper and lower extremities. Skin: No rashes. Normal skin turgor. Psych: Mood is anxious. Affect is congruent with mood. Insight and judgment are good. Laboratory Data: Sodium 137, potassium 3.8, chloride 103, CO2 of 27. BUN 23, creatinine 0.98, gluco se 118, calcium 9.1, magnesium 1.7. Troponin 0.07. BNP 12. Procalcitonin 0.08. ABG; pH 7.33, pCO2 of 52.5, pO2 of 64.2, bicarb 26, INR 1.06. WBC 9.7, H and H 14.4 and 43.5, platelets 274. Diagnostic Data: Chest x-ray, early failure or volume overload, posterior lung base infiltrates coul d be mass. Significant change from apical is doubtful. Assessment And Plan: A 62-year-old male with; 1.Tqdwg-qf-zafbduh respiratory failure. The patient is normally on 4 L nasal cannula, requiring BiP AP at this time secondary to CO2 retention. The patient has severe restrictive lung disease. We miguel ángel l continue with BiPAP, place in ICU setting. We will consult Pulmonology. We will repeat ABG in 4 t o 6 hours. 2.Hypomagnesemia. We will replace and monitor. 3.Diabetes mellitus type 2, non-insulin requiring, with hyperglycemia. We will continue sliding sca le insulin. 4.Essential hypertension. The patient is currently hypotensive. The patient has received IV fluid bolus. We will monitor blood pressure closely. 5.Mixed hyperlipidemia. Continue home medications. 6.Anxiety disorder. 7.Major depressive disorder. 8.Gastroesophageal reflux disease without esophagitis. 9.Obstructive sleep apnea, currently on BiPAP. 10.Morbid obesity. 11.Gastrointestinal and deep venous thrombosis prophylaxis with PPI and Lovenox. Plan: Admit the patient to ICU, place as inpatient. We will cover with empiric antibiotics. We miguel ángel l obtain blood cultures. We will await Pulmonology recommendations. Code Status: Full. The patient does not have a living will or medical power of estate attorney. KAY Voice ID: [id number]
[2018-03-29 05:04] LABS: Absolute Lymphocytes (CBC) 0.9 K/uL (0.7-4.9); Absolute Monocytes 0.1 K/uL (0.1-1.3); Absolute Neutrophil 10.1 K/uL (1.8-8.0); Basophils % 0.2 % (0-1.3); Hematocrit 40.8 % (39.6-49.0); Lymphocytes % 8.3 % (15.3-44.8); MCH 30.1 pg (27.0-35.0); MCV 90.1 fL (80-100); MPV 8.2 fL (7.6-11.3); Monocytes % 1.1 % (3.3-12.3); RBC Red Blood Cell Count 4.53 M/uL (4.33-5.43)
[2018-03-29 05:32] LABS: Potassium 4.7 mEq/L (3.6-5.0)
[2018-03-29 05:47] LABS: Arterial Blood Carboxyhemoglob 1.2 % (0-1.5); Blood Gas Oxyhemoglobin 89.9 % (94-97); Blood O2 Saturation 91.6 % (92-98.5)
[2018-03-29 05:54] LABS: Blood Morphology Comment NOT SEEN (NOT SEEN); Platelet Estimate ADEQ
[2018-03-29] MEDS: ENOXAPARIN 40 MG/0.4 ML SQ SCH (08:51)
[2018-03-29] MEDS: INSULIN -REGULAR HUMAN 50 UNIT/0.5 ML ML SQ SCH ×4 (08:51→20:51)
[2018-03-29] MEDS: METOPROLOL XL 50 MG TAB PO SCH (10:29)
[2018-03-29] MEDS: FENOFIBRATE 160 MG TAB PO SCH (10:30)
[2018-03-29] MEDS: FUROSEMIDE 40 MG TABLET PO SCH ×2 (10:30→17:25)
[2018-03-29] MEDS: GABAPENTIN 300 MG CAP PO SCH ×3 (10:30→20:50)
[2018-03-29] MEDS: PANTOPRAZOLE 40MG TABLET PO SCH (10:30)
[2018-03-29] MEDS: SPIRONOLACTONE 25 MG TABLET PO SCH ×2 (10:30→20:50)
[2018-03-29] MEDS: INSULIN LISPRO 100 UNIT/1 ML SQ SCH ×2 (12:21→17:26)
--- NOTE | 2018-03-29 14:01 | PN ---
Date of Progress Note: 03/29/2018 Subjective: The patient is seen and examined. Chart reviewed and case discussed with RN. The patie nt is doing significantly better. He is off the BiPAP, on nasal cannula. The patient denies any oth er symptoms. Review of Systems: Negative except as above. Medications: Reviewed. Physical Examination: Vital Signs: Temperature 97.7, heart rate 78, blood pressure 119/71, respirations 16, O2 98% on 2 L via nasal cannula. General: Awake, alert, oriented x3. Elderly male, morbidly obese, BMI 41. Mild respiratory distres s. CV: S1, S2. No murmurs. Peripheral pulses present. Respiratory: Diminished breath sounds, improving. Mild wheezing. Gastrointestinal: Abdomen is soft, nontender, nondistended. Positive bowel sounds. Extremities: No clubbing, cyanosis, edema. Neurologic: Nonfocal. Laboratory Data: Sodium 137, potassium 4.7, chloride 104, CO2 22, BUN 30, creatinine 1.19, glucose 3 09, calcium 8.7. WBC 11.2, H and H 13.6 and 40.8, platelets 234, neutrophils 90%, bands 7. Tox scre en shows positive for oxycodone, MDMA, ecstasy, and benzodiazepines. ABG shows pH 7.31, pCO2 45, pO2 64.9, bicarb 22. Blood cultures pending. Assessment And Plan: A 62-year-old male with: 1.Acute on chronic respiratory failure. The patient is usually on 4 L via nasal cannula, now off Bi PAP secondary to CO2 retention resulting from multiple sedated medications. ABG shows improvement; h owever, still has hypoxemia and hypercapnia. Dr. Ramsey has been consulted. 2.Hypomagnesemia, replace and monitor. 3.Diabetes mellitus type 2, mpz-tqqimfn-hnjefcuav with hyperglycemia. Continue sliding scale insuli n. Continue Accu-Cheks. 4.Essential hypertension. Blood pressure now improved. 5.Mixed hyperlipidemia. 6.Generalized anxiety disorder. 7.Major depressive disorder. 8.Substance abuse with MDMA. 9.Gastroesophageal reflux disease without esophagitis. Continue PPI. 10.Obstructive sleep apnea. CPAP at night. 11.Morbid obesity, BMI 41. 12.Gastrointestinal and deep venous thrombosis prophylaxis with PPI and Lovenox. Plan: Continue empiric antibiotics, follow up on cultures. We will repeat chest x-ray. Likely the patient had sedative affects of his chronic pain medications, which need to be adjusted. The patient has been counseled. /SHERYL Voice ID: [id number] Report ID: [id number]
[2018-03-29] MEDS ORDERED: SPIRIVA IH SCH (14:15)
[2018-03-29] MEDS ORDERED: Levofloxacin 750mg IV 750 MG/150 ML BAG IV SCH (18:00)
[2018-03-29] MEDS: HOME MED 1 EA UNK (Fluticasone/Salmeterol [Advair 250/50 Diskus*] 1 PUFF) IH SCH (21:00)
[2018-03-29] MEDS ORDERED: INSULIN DETEMIR 100 UNIT/1 ML INSULIN SQ SCH (21:00)
[2018-03-29] MEDS ORDERED: ATORVASTATIN 20 MG TAB PO SCH (21:00)
[2018-03-30] MEDS: METHYLPREDNISOLONE 40 MG INJ IV SCH ×2 (00:30→08:43)
[2018-03-30] MEDS: TRAMADOL HCL 50 MG TAB PO PRN ×2 (00:30→08:45)
[2018-03-30] MEDS: IPRATROPIUM BROM 0.5MG/2.5ML NEB SCH ×2 (01:27→07:47)
[2018-03-30] MEDS: ALBUTEROL 2.5 MG/3 ML NEB SOL NEB SCH ×2 (01:27→07:47)
[2018-03-30 04:53] LABS: Absolute Lymphocytes (CBC) 0.9 K/uL (0.7-4.9); Absolute Monocytes 0.4 K/uL (0.1-1.3); Absolute Neutrophil 13.2 K/uL (1.8-8.0); Basophils % 0.5 % (0-1.3); Hematocrit 39.9 % (39.6-49.0); Lymphocytes % 6.4 % (15.3-44.8); MCH 29.6 pg (27.0-35.0); MCV 88.9 fL (80-100); MPV 8.5 fL (7.6-11.3); Monocytes % 2.8 % (3.3-12.3); RBC Red Blood Cell Count 4.48 M/uL (4.33-5.43)
[2018-03-30 05:23] LABS: Magnesium 2.1 mg/dL (1.8-2.5); Potassium 5.2 mEq/L (3.6-5.0)
[2018-03-30] MEDS: METOPROLOL XL 50 MG TAB PO SCH (06:04)
[2018-03-30] MEDS: PANTOPRAZOLE 40MG TABLET PO SCH (06:04)
--- NOTE | 2018-03-30 07:13 | RAD REPORT ---
EXAM DESCRIPTION: RAD - Chest Pa And Lat (2 Views) - 03/30/2018 6:55 am CLINICAL HISTORY: Pneumonia, shortness of breath COMPARISON: March 28February 13 TECHNIQUE: PA and lateral views of the chest were obtained. FINDINGS: The lungs are underinflated. Right base atelectasis is present. Heart size is normal. Va sculature and lung markings are accentuated by shallow inspiration. A significant failure or volume o verload is doubtful. No pneumothorax or large pleural effusion. No acute bony finding noted. No aort ic abnormality. IMPRESSION: Shallow inspiration exam shows right base atelectasis. Inspiratory effort is improved but still low volume. No significant failure or volume overload seen a nd no progressive process from prior imaging.
[2018-03-30] MEDS: INSULIN -REGULAR HUMAN 50 UNIT/0.5 ML ML SQ SCH ×2 (08:38→12:26)
[2018-03-30] MEDS: INSULIN LISPRO 100 UNIT/1 ML SQ SCH ×2 (08:39→12:27)
[2018-03-30] MEDS: ENOXAPARIN 40 MG/0.4 ML SQ SCH (08:43)
[2018-03-30] MEDS: GABAPENTIN 300 MG CAP PO SCH (08:43)
[2018-03-30] MEDS: FUROSEMIDE 40 MG TABLET PO SCH (08:43)
[2018-03-30] MEDS: SPIRONOLACTONE 25 MG TABLET PO SCH (08:44)
[2018-03-30] MEDS: FENOFIBRATE 160 MG TAB PO SCH (08:44)
[2018-03-30] MEDS: HOME MED 1 EA UNK (Fluticasone/Salmeterol [Advair 250/50 Diskus*] 1 PUFF) IH SCH (08:52)
[2018-03-30] MEDS ORDERED: SOD POLYSTYREN SUL 15 GM/60 ML UCUP PO ONE (09:00)
--- NOTE | 2018-03-30 12:12 | DS ---
Date of Discharge: 03/30/2018 Admitting Diagnoses: 1.Acute on chronic respiratory failure. 2.Hypomagnesemia. 3.Diabetes mellitus type 2, ida-mhauash-krnrfxnku with hyperglycemia. 4.Essential hypertension. 5.Mixed hyperlipidemia. 6.Anxiety disorder. 7.Major depressive disorder. 8.Gastroesophageal reflux disease without esophagitis. 9.Obstructive sleep apnea, on BiPAP. 10.Morbid obesity. 11.Substance abuse with ecstasy. 12.Chronic pain syndrome, on chronic narcotics. Discharge Diagnoses: 1.Acute on chronic respiratory failure, improved. The patient is on 4 L of oxygen at home, now off BiPAP. ABG improved, with hypercapnia and hypoxia, secondary to use of narcotics in combination of b enzodiazepines with drop in respiratory drive. 2.Hypomagnesemia, replaced. 3.Diabetes mellitus type 2, fgp-yesqvvm-utocczcie with hyperglycemia. 4.Essential hypertension, stable. 5.Mixed hyperlipidemia. 6.Generalized anxiety disorder. Recommended to stop benzodiazepines. 7.Major depressive disorder. 8.Substance abuse with MDMA and ecstasy. 9.Gastroesophageal reflux disease without esophagitis. 10.Obstructive sleep apnea, on CPAP at night. 11.Morbid obesity, BMI of 41. 12.Chronic pain syndrome, on narcotics. Hospital Course: The patient is a 62-year-old male with multiple comorbidities including diabetes, h ypertension, hyperlipidemia, sleep apnea, severe restrictive lung disease, GERD, who has had multiple admissions to the hospital, who is noncompliant, never follows up with Pulmonology, Dr. Ramsey, wh o comes in with shortness of breath. The patient was found to be hypoxic, hypercapnic, pCO2 was 52, pH was 7.33, pO2 was 64. He had mild elevation in his troponin, which was likely secondary to hypoxi a with demand mismatch. His procalcitonin was negative. His chest x-ray showed no significant chaudhary e from January, very limited exam due to his poor status and shallow aspiration. A repeat chest x-ray did not show any significant failure or volume overload. No progressive process from previous findin g. Does show some right base atelectasis. The patient was initially placed on BiPAP. His ABG showe d improvement. He was placed on steroids and has had some steroid-induced leukocytosis. The patient otherwise was counseled regarding his use of benzodiazepines and narcotics together, which decreases his respiratory drive leading to hypoxia and hypercapnia. He was instructed to follow up with his p mona management physician to adjust his medications. He was told to discontinue his benzodiazepines. The patient otherwise did well. He was able to be taken off BiPAP. His blood cultures remained neg ative. Chest x-ray did not show any infiltrates. He was afebrile. No source of infection is appare nt. His UA was negative. I spoke with Dr. aRmsey, who recommended outpatient followup. He had no thing else to add, therefore was not seen in the hospital by Pulmonology. The patient was then clear ed for discharge and was sent home in a stable condition. Activity: No strenuous activity. Diet: Diabetic diet. Followup: Follow up with primary care physician in 2-3 days. Follow up with technical services coordinator, Dr. Mik lincoln in 2 weeks. Return to ER for worsening condition. Medications: As per medication reconciliation list. Total time spent discharging the patient was 32 minutes. Physical Examination: General: Awake, alert, oriented, no acute distress. CV: S1, S2. No murmurs. Respiratory: Moving air well bilaterally. Mild wheezing. Extremities: No clubbing, cyanosis, edema. Neuro: Nonfocal. SA/MODL Voice ID: [id number] Report ID: [id number]
[2018-03-30 12:31] VITALS: O2SAT 90
[2018-03-30 14:58] VITALS: BP 113/64; TEMP 97.9
== END 2018-03-30 14:33 | disposition home or self-care (01) | DRG 189 ==
LOC: ER 15:17 → ERHOLD 17:50 → 2ND 20:48
PROVIDERS: ADMIT Family Medicine; ATTEND Family Medicine
PROC: 5A09357 Assistance with Respiratory Ventilation, Less than 24 Consecutive Hours, Continuous Positive Airway Pressure (ICD-10-PCS; principal; 2018-03-28)
DX: J96.20 Acute and chronic respiratory failure, unspecified whether with hypoxia or hypercapnia (principal); Z68.41 Body mass index [BMI] 40.0-44.9, adult; E11.9 Type 2 diabetes mellitus without complications; I10 Essential (primary) hypertension; E78.5 Hyperlipidemia, unspecified; E83.42 Hypomagnesemia; E78.2 Mixed hyperlipidemia; F16.10 Hallucinogen abuse, uncomplicated; G89.4 Chronic pain syndrome; F41.9 Anxiety disorder, unspecified; E66.01 Morbid (severe) obesity due to excess calories; K21.9 Gastro-esophageal reflux disease without esophagitis; F32.9 Major depressive disorder, single episode, unspecified; G47.33 Obstructive sleep apnea (adult) (pediatric); Z87.891 Personal history of nicotine dependence
CPT/HCPCS: 36415; 51702; 71045; 71046; 80048; 80076; 80307; 81003; 82805; 82962; 83735; 83880; 84132; 84145; 84484; 85025; 85610; 87040; 93005; 94640; 94660; 96365; 96367; 96375; 97163; 99285; J1650; J2920; J2930; J3475; J7030

== ENCOUNTER 2018-04-28 20:32 | Observation (INO) | payer MEDICARE, SELFPAY ==
--- OUTSIDE RECORDS SUMMARY | 2018-04-28 20:34 | XMS REPORT | Clinical Summary ---
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 (Primary Dx); Hyperlipidemia, unspecified hyperlipidemia type 03/20/2018 Ancillary Procedure Divina Jack, Uncontrolled type 2 diabetes mellitus with [...] of insulin 12/01/2017 Office Visit Endocrinology Divina Jack, Uncontrolled type 2 diabetes mellitus with [...] hypertension; Mixed hyperlipidemia; 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, unspecified vessel or lesion type 07/19/2017 Orders Only Endocrinology Susanna Laboy, Benign essential MA hypertension 04/28/2017 Office Visit Endocrinology Alexander Mckeon 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, with long-term current use of insulin (Primary Dx); MD Madalyn Benign essential hypertension; Mixed hyperlipidemia; 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, unspecified vessel or lesion type; Type 2 diabetes mellitus with complication, with long-term current use of insulin after 04/27/2017 Family History Medical History Relation Name Comments [...] 36.2 C (97.1 F) 12/01/2017 12:05 PM JAR CAPPER Respiratory Rate 95 08/11/2017 9:18 AM CDT Oxygen Saturation 100% 03/20/2018 10:20 AM CDT Inhaled Oxygen Concentration - - Weight 113 kg (250 lb) 03/20/2018 10:20 AM CDT Height 170.2 cm (5' 7") 03/20/2018 10:20 AM CDT Body Mass Index 39.16 03/20/2018 10:20 AM CDT Plan of Treatment Date Type Specialty Care Team Description 07/24/2018 Office Visit Endocrinology Divina Jack MD [address] [address] Health Maintenance Due Date Last Done Comments COLON CANCER SCREENING 2003 SHINGRIX VACCINE (#1) 2003 ZOSTER VACCINE 2013 DIABETIC FOOT EXAM 10/10/2017 10/10/2016, 10/10/2016, 07/18/2016 URINE MICROALBUMIN 01/07/2018 01/07/2017, 01/07/2017, 11/26/2015 INFLUENZA VACCINE 05/30/2018 07/27/2017, 08/10/2016, 07/13/2016 DIABETIC RETINAL EYE EXAM 03/20/2020 03/20/2018, 04/28/2017, 04/28/2016 Procedures Procedure Name Priority Date/Time Associated Diagnosis Comments POC GLUCOSE Routine 03/20/2018 10:34 Uncontrolled type 2 Results for this AM CDT diabetes mellitus procedure are in with complication, the results unspecified long section. term insulin use status POC GLYCOSYLATED Routine 03/20/2018 10:34 Uncontrolled type 2 Results for this HEMOGLOBIN (HGB A1C) AM CDT diabetes mellitus procedure are in with complication, the results unspecified long section. term insulin use status BONE DENSITY Routine 03/20/2018 10:09 Uncontrolled type 2 Results for this AM CDT diabetes mellitus procedure are in with other the results circulatory section. complication, with long-term current use of insulin Osteopenia, unspecified location POC GLYCOSYLATED Routine 12/01/2017 12:19 Uncontrolled type 2 Results for this HEMOGLOBIN (HGB A1C) PM JAR CAPPER diabetes mellitus procedure are in with other the results circulatory section. complication, with long-term current use of insulin POC GLUCOSE Routine 12/01/2017 12:18 Uncontrolled type 2 Results for this PM JAR CAPPER diabetes mellitus procedure are in with other the results circulatory section. complication, with long-term current use of insulin POC GLYCOSYLATED Routine 08/11/2017 9:28 Uncontrolled type 2 Results for this HEMOGLOBIN (HGB A1C) AM CDT diabetes mellitus procedure are in with other the results circulatory section. complication, with long-term current use of insulin POC GLUCOSE Routine 08/11/2017 9:28 Uncontrolled type 2 Results for this AM CDT diabetes mellitus procedure are in with other the results circulatory section. complication, with long-term current use of insulin POC GLYCOSYLATED Routine 04/28/2017 9:55 Uncontrolled type 2 Results for this HEMOGLOBIN (HGB A1C) AM CDT diabetes mellitus procedure are in with other the results circulatory section. complication, with long-term current use of insulin POC GLUCOSE Routine 04/28/2017 9:54 Uncontrolled type 2 Results for this AM CDT diabetes mellitus procedure are in with other the results circulatory section. complication, with long-term current use of insulin after 04/27/2017 Results POC glycosylated hemoglobin (Hb A1C) (03/20/2018 10:34 AM)Only the most recent of4 resultswithin the time period is included. POC Hemoglobin A1C 8.6 % Specimen Blood POC glucose (03/20/2018 10:34 AM)Only the most recent of4 resultswithin the time period is included. POC glucose 136Comment: non fasting 65 - 100 Specimen Blood Bone Density (03/20/2018 10:09 AM) Narrative Performed At [facility] [address] [place] [address]. [address] [place] [address] Bone Density Report Name: Garrison Burnett Sex: Male Age: 62 Ethnicity: White Height: 64.0 in Referring Provider: DIVINA JACK Date of : 1955 Weight: 249.8lb Indication: History of glucocorticoids Accession number: [id number] Bone Density: Exam date 03/20/2018 Region BMD [...] MACE, FACP, CCD on 03/22/2018 7:20:00 AM. Performing Organization Address City/State/Zipcode Phone Number [facility] [address] [place] [address] after 04/27/2017 Insurance Payer Benefit Plan / Group Subscriber ID Type Phone Address [facility] MEDICARE AARP MEDICARE COMPLETE [facility] xxxxxxxxx HMO
--- NOTE | 2018-04-28 23:10 | ER ---
Nurse's Notes [facility] Name: Asim Burnett Age: 62 yrs Sex: Male : 1955 Arrival Date: 04/28/2018 Time: 20:42 Bed 20 Private MD: Diagnosis: Fever, unspecified;Type 1 diabetes mellitus;Dyspnea;Hypomagnesemia Presentation: 04/28 20:43 Presenting complaint: Patient states: "I"m feeling really short of breath and aj1 dehydrated since yesterday" Reports fever this morning of approximately 101, denies cough, nausea, vomiting. Reports diarrhea. Denies pain. Transition of care: patient was not received from another setting of care. Onset of symptoms was April 27, 2018. Risk Assessment: Do you want to hurt yourself or someone else? Patient reports no desire to harm self or others. Initial Sepsis Screen: Does the patient meet any 2 criteria? RR > 20 per min. HR > 90 bpm. Does the patient have a suspected source of infection? Yes: Other: diarrhea. Care prior to arrival: None. 20:43 Method Of Arrival: Ambulatory aj 20:43 Acuity: ORACIO 3 aj1 Triage Assessment: 20:47 General: Appears in no apparent distress. uncomfortable, Behavior is calm, cooperative, aj1 appropriate for age. Pain: Denies pain. EENT: No signs and/or symptoms were reported regarding the EENT system. Neuro: Level of Consciousness is awake, alert, obeys commands, Oriented to person, place, time, situation, Speech is normal, Facial symmetry appears normal. Cardiovascular: Patient's skin is warm and dry. Respiratory: Reports shortness of breath Airway is patent Respiratory effort is even, unlabored, Respiratory pattern is regular, symmetrical, Denies cough. GI: Abdomen is round Reports diarrhea, Patient currently denies nausea, vomiting. Derm: Skin is pink, warm \\T\\ dry. normal. Musculoskeletal: Circulation, motion, and sensation intact. Historical: - Allergies: 20:47 Ibuprofen; aj1 - Home Meds: 20:47 Advair Diskus 250-50 mcg/dose Inhl dsdv 1 puff 2 times per day [Active]; atorvastatin aj1 20 mg Oral tab 1 tab once daily [Active]; clonazepam 1 mg Oral tab 1 tab QID PRN [Active]; enalapril maleate 20 mg Oral tab 1 tab once daily [Active]; fenofibrate 160 mg Oral tab 1 tab once daily [Active]; furosemide 20 mg Oral tab 1 tab once daily [Active]; gabapentin 600 mg Oral tab 1 tab 3 times per day [Active]; Humalog 100 unit/mL Sub-Q soln 24 unit three times a day [Active]; lansoprazole 30 mg Oral cpDR 1 cap once daily [Active]; metformin 1,000 mg Oral TG24 1 tab 2 times per day [Active]; oxycodone-acetaminophen 10-325 mg Oral tab 1 tab twice a day [Active]; Spiriva with HandiHaler 18 mcg inhalation CpDv 1 cap once daily [Active]; spironolactone 25 mg Oral tab 1 tab once daily [Active]; Toujeo SoloStar 300 unit/mL (1.5 mL) subcutaneous inpn 50 unit nightly [Active]; trazodone 50 mg Oral tab 1 tab nightly [Active]; - PMHx: 20:47 Anxiety; Depression; Diabetes - IDDM; High Cholesterol; Hypertension; aj1 - Immunization history:: Flu vaccine is up to date. - Social history:: Smoking status: Patient/guardian denies using tobacco. - Ebola Screening: : Patient denies travel to an Ebola-affected area in the 21 days before illness onset. - Family history:: not pertinent. Screenin:22 Abuse screen: Denies threats or abuse. Denies injuries from another. Nutritional bs1 screening: No deficits noted. Tuberculosis screening: No symptoms or risk factors identified. Fall Risk None identified. Assessment: 20:55 General: Appears in no apparent distress. uncomfortable, Behavior is cooperative, bs1 anxious. Pain: Denies pain. Neuro: Level of Consciousness is awake, alert, obeys commands, Oriented to person, place, time, situation, Appropriate for age. Cardiovascular: Heart tones S1 S2 present Capillary refill < 3 seconds Patient's skin is warm and dry. Respiratory: Reports shortness of breath at rest on exertion cough that is non-productive, Airway is patent Trachea midline Respiratory effort is even, unlabored, Respiratory pattern is regular, symmetrical, Breath sounds are clear bilaterally. GI: No signs and/or symptoms were reported involving the gastrointestinal system. : No signs and/or symptoms were reported regarding the genitourinary system. EENT: No signs and/or symptoms were reported regarding the EENT system. Derm: Skin is intact, Skin is pink, warm \\T\\ dry. normal. Musculoskeletal: Circulation, motion, and sensation intact. Capillary refill < 3 seconds, Range of motion: intact in all extremities. 21:45 Reassessment: Audible wheezing heard. 2L NC applied to patient. Patient uses home bs1 oxygen. Reports having sleep apnea and using a cpap at night. 23:00 Reassessment: Patient and/or family updated on plan of care and expected duration. Pain bs1 level reassessed. Patient is alert, oriented x 3, equal unlabored respirations, skin warm/dry/pink. Pending results. Patient afebrile. 04/29 00:15 Reassessment: Patient appears in no apparent distress at this time. Patient and/or bs1 family updated on plan of care and expected duration. Pain level reassessed. Patient is alert, oriented x 3, equal unlabored respirations, skin warm/dry/pink. 01:45 Reassessment: No changes from previously documented assessment. Patient and/or family bs1 updated on plan of care and expected duration. Pain level reassessed. Patient is alert, oriented x 3, equal unlabored respirations, skin warm/dry/pink. 02:20 Reassessment: Patient appears in no apparent distress at this time. Patient and/or bs1 family updated on plan of care and expected duration. Pain level reassessed. Patient is alert, oriented x 3, equal unlabored respirations, skin warm/dry/pink. Patient being admitted. States understanding of POC. Vital Signs: 04/28 20:47 BP 126 / 74; Pulse 106; Resp 28; Temp 98.5(O); Pulse Ox 94% on R/A; Weight 109.77 kg aj1 (R); Height 5 ft. 6 in. (167.64 cm) (R); Pain 0/10; 21:45 BP 114 / 71; Pulse 93; Resp 20 S; Pulse Ox 97% on 2 lpm NC; bs1 22:20 BP 102 / 69; Pulse 89; Resp 20 S; Pulse Ox 97% on 2 lpm NC; bs1 23:20 BP 114 / 66; Pulse 88; Resp 30 S; Pulse Ox 98% on 2 lpm NC; bs1 04/29 00:20 BP 102 / 56; Pulse 91; Resp 25 S; Pulse Ox 96% on 2 lpm NC; bs1 01:20 BP 113 / 69; Pulse 85; Resp 29 S; Pulse Ox 96% on 2 lpm NC; bs1 02:20 BP 104 / 58; Pulse 75; Resp 23; Temp 98.8(O); Pulse Ox 95% on 3 lpm NC; Pain 5/10; bs1 04/28 20:47 Body Mass Index 39.06 (109.77 kg, 167.64 cm) aj1 ED Course: 04/28 20:42 Patient arrived in ED. aj1 20:46 Triage completed. aj1 20:47 Arm band placed on Patient placed in an exam room. aj1 21:31 Yuki Guerra, MILLA is Primary Nurse. bs1 22:22 Patient has correct armband on for positive identification. Bed in low position. Call bs1 light in reach. Side rails up X 1. Pulse ox on. NIBP on. 22:26 Heladio Veras MD is Attending Physician. bridger 23:00 Inserted saline lock: 20 gauge in left antecubital area, using aseptic technique. Blood bs1 collected. Inserted by RANDALL Nesbitt. 23:09 Lance Kowalski MD is Hospitalizing Provider. bridger 23:30 First set of blood cultures drawn by ED staff, Second set of blood cultures drawn by ED bs1 staff. 04/29 00:10 XRAY Chest (1 view) In Process Unspecified. EDMS 00:[address] via stretcher. kw1 00:48 CT completed. Patient moved back from CT. kw1 02:23 No provider procedures requiring assistance completed. bs1 02:26 Patient admitted, IV remains in place. intact. bs1 Administered Medications: 04/28 23:25 Drug: Albuterol - atroVENT (3:1) (2.5 mg - 0.5 mg) 3 ml Route: Nebulizer; bs1 04/29 02:29 Follow up: Response: No adverse reaction bs1 04/28 23:33 Drug: NS 0.9% 1000 ml Route: IV; Rate: 1 bolus; Site: left antecubital; bs1 04/29 02:30 Follow up: IV Status: Completed infusion bs1 04/28 23:33 Drug: SOLU-Medrol 125 mg Route: IVP; Site: left antecubital; bs1 04/29 02:30 Follow up: Response: No adverse reaction bs1 04/28 23:59 Drug: Tylenol 1000 mg Route: PO; bs1 04/29 02:29 Follow up: Response: No adverse reaction bs1 00:25 Drug: Rocephin - (cefTRIAXone) 1 grams Route: IVPB; Infused Over: 30 mins; Site: left bs1 antecubital; 02:29 Follow up: IV Status: Completed infusion bs1 01:05 Drug: Zithromax 500 mg Route: IVPB; Infused Over: 1 hrs; Site: left antecubital; bs1 02:29 Follow up: IV Status: Completed infusion bs1 01:05 Drug: Magnesium Sulfate 1 grams Route: IVPB; Infused Over: 1 hrs; Site: left bs1 antecubital; 02:29 Follow up: IV Status: Completed infusion bs1 Outcome: 04/28 23:10 Decision to Hospitalize by Provider. [facility] 04/29 02:25 Admitted to Tele accompanied by tech, via wheelchair, room 430, with oxygen, Report bs1 called to MILLA Escalera Condition: stable Instructed on the need for admit, Demonstrated understanding of instructions. 02:36 Patient left the ED. bs1 Signatures: Dispatcher [employer] [place] Kathleen, MILLA RN aj1 Heladio Veras MD MD cha Wilhelm, Kimberly kw1 Yuki Guerra RN RN bs1
--- NOTE | 2018-04-28 23:11 | EDPHYS ---
Physician Documentation [facility] Name: Asim Burnett Age: 62 yrs Sex: Male : 1955 Arrival Date: 04/28/2018 Time: 20:42 Bed 20 Private MD: ED Physician Heladio Veras HPI: 04/28 23:06 This 62 yrs old Male presents to ER via Ambulatory with complaints of bridger Shortness Of Breath. 23:06 The patient has shortness of breath at rest, with light activity. Onset: The bridger symptoms/episode began/occurred 1 day(s) ago. Duration: The symptoms are continuous, and are steadily getting worse. The patient's shortness of breath has no apparent modifying factors. Associated signs and symptoms: The patient has no apparent associated signs or symptoms. Severity of symptoms: At their worst the symptoms were mild moderate in the emergency department the symptoms are unchanged. The patient has experienced similar episodes in the past, a few times. cough. Historical: - Allergies: 20:47 Ibuprofen; aj1 - Home Meds: 20:47 Advair Diskus 250-50 mcg/dose Inhl dsdv 1 puff 2 times per day [Active]; atorvastatin aj1 20 mg Oral tab 1 tab once daily [Active]; clonazepam 1 mg Oral tab 1 tab QID PRN [Active]; enalapril maleate 20 mg Oral tab 1 tab once daily [Active]; fenofibrate 160 mg Oral tab 1 tab once daily [Active]; furosemide 20 mg Oral tab 1 tab once daily [Active]; gabapentin 600 mg Oral tab 1 tab 3 times per day [Active]; Humalog 100 unit/mL Sub-Q soln 24 unit three times a day [Active]; lansoprazole 30 mg Oral cpDR 1 cap once daily [Active]; metformin 1,000 mg Oral TG24 1 tab 2 times per day [Active]; oxycodone-acetaminophen 10-325 mg Oral tab 1 tab twice a day [Active]; Spiriva with HandiHaler 18 mcg inhalation CpDv 1 cap once daily [Active]; spironolactone 25 mg Oral tab 1 tab once daily [Active]; Toujeo SoloStar 300 unit/mL (1.5 mL) subcutaneous inpn 50 unit nightly [Active]; trazodone 50 mg Oral tab 1 tab nightly [Active]; - PMHx: 20:47 Anxiety; Depression; Diabetes - IDDM; High Cholesterol; Hypertension; aj1 - Immunization history:: Flu vaccine is up to date. - Social history:: Smoking status: Patient/guardian denies using tobacco. - Ebola Screening: : Patient denies travel to an Ebola-affected area in the 21 days before illness onset. - Family history:: not pertinent. ROS: 23:06 Eyes: Negative for injury, pain, redness, and discharge, ENT: Negative for injury, bridger pain, and discharge, Neck: Negative for injury, pain, and swelling, Cardiovascular: Negative for chest pain, palpitations, and edema, Abdomen/GI: Negative for abdominal pain, nausea, vomiting, diarrhea, and constipation, Back: Negative for injury and pain, : Negative for injury, bleeding, discharge, and swelling, MS/Extremity: Negative for injury and deformity, Skin: Negative for injury, rash, and discoloration, Neuro: Negative for headache, weakness, numbness, tingling, and seizure. 23:06 Constitutional: Positive for chills, fever. 23:06 Respiratory: Positive for cough, shortness of breath. Exam: 23:06 Constitutional: This is a well developed, well nourished patient who is awake, alert, bridger and in no acute distress. Head/Face: Normocephalic, atraumatic. Eyes: Pupils equal round and reactive to light, extra-ocular motions intact. Lids and lashes normal. Conjunctiva and sclera are non-icteric and not injected. Cornea within normal limits. Periorbital areas with no swelling, redness, or edema. ENT: Nares patent. No nasal discharge, no septal abnormalities noted. Tympanic membranes are normal and external auditory canals are clear. Oropharynx with no redness, swelling, or masses, exudates, or evidence of obstruction, uvula midline. Mucous membranes moist. Neck: Trachea midline, no thyromegaly or masses palpated, and no cervical lymphadenopathy. Supple, full range of motion without nuchal rigidity, or vertebral point tenderness. No Meningismus. Chest/axilla: Normal chest wall appearance and motion. Nontender with no deformity. No lesions are appreciated. Cardiovascular: Regular rate and rhythm with a normal S1 and S2. No gallops, murmurs, or rubs. Normal PMI, no JVD. No pulse deficits. Abdomen/GI: Soft, non-tender, with normal bowel sounds. No distension or tympany. No guarding or rebound. No evidence of tenderness throughout. Back: No spinal tenderness. No costovertebral tenderness. Full range of motion. Male : Normal genitalia with no discharge or lesions. Skin: Warm, dry with normal turgor. Normal color with no rashes, no lesions, and no evidence of cellulitis. MS/ Extremity: Pulses equal, no cyanosis. Neurovascular intact. Full, normal range of motion. Neuro: Awake and alert, GCS 15, oriented to person, place, time, and situation. Cranial nerves II-XII grossly intact. Motor strength 5/5 in all extremities. Sensory grossly intact. Cerebellar exam normal. Normal gait. Psych: Awake, alert, with orientation to person, place and time. Behavior, mood, and affect are within normal limits. 23:06 Respiratory: Respirations: labored breathing, that is mild, Breath sounds: decreased breath sounds, rhonchi, wheezing: expiratory Respiratory rate: 20 Vital Signs: 20:47 BP 126 / 74; Pulse 106; Resp 28; Temp 98.5(O); Pulse Ox 94% on R/A; Weight 109.77 kg 1 (R); Height 5 ft. 6 in. (167.64 cm) (R); Pain 0/10; 21:45 BP 114 / 71; Pulse 93; Resp 20 S; Pulse Ox 97% on 2 lpm NC; bs1 22:20 BP 102 / 69; Pulse 89; Resp 20 S; Pulse Ox 97% on 2 lpm NC; bs1 23:20 BP 114 / 66; Pulse 88; Resp 30 S; Pulse Ox 98% on 2 lpm NC; bs1 04/29 00:20 BP 102 / 56; Pulse 91; Resp 25 S; Pulse Ox 96% on 2 lpm NC; bs1 01:20 BP 113 / 69; Pulse 85; Resp 29 S; Pulse Ox 96% on 2 lpm NC; bs1 02:20 BP 104 / 58; Pulse 75; Resp 23; Temp 98.8(O); Pulse Ox 95% on 3 lpm NC; Pain 5/10; bs1 04/28 20:47 Body Mass Index 39.06 (109.77 kg, 167.64 cm) [facility] MDM: 04/28 22:26 Patient medically screened. [facility] 23:10 Data reviewed: vital signs, nurses notes, lab test result(s), EKG, radiologic studies, [facility] CT scan, plain films. 04/28 23:06 Order name: Basic Metabolic Panel; Complete Time: 00:01 [facility] 04/28 23:06 Order name: CBC with Diff; Complete Time: 00:01 [facility] 04/28 23:06 Order name: Ckmb; Complete Time: 00:01 [facility] 04/28 23:06 Order name: CPK; Complete Time: 00:01 [facility] 04/28 23:06 Order name: LFT's; Complete Time: 00:01 [facility] 04/28 23:06 Order name: Magnesium; Complete Time: 00:01 [facility] 04/28 23:06 Order name: NT PRO-BNP; Complete Time: 00:01 [facility] 04/28 23:06 Order name: PT-INR; Complete Time: 00:01 [facility] 04/28 23:06 Order name: Ptt, Activated; Complete Time: 00:01 [facility] 04/28 23:06 Order name: Troponin (emerg Dept Use Only); Complete Time: 00:01 [facility] 04/28 23:06 Order name: Blood Culture Adult (2) [facility] 04/28 23:06 Order name: Procalcitonin; Complete Time: 01:15 [facility] 04/28 23:07 Order name: Urine Dipstick--Ancillary (enter results) 04/28 23:08 Order name: Urine Dipstick-Ancillary; Complete Time: 23:25 EDLA 04/28 23:06 Order name: XRAY Chest (1 view) [facility] 04/28 23:06 Order name: EKG; Complete Time: 23:07 [facility] 04/28 23:06 Order name: Cardiac monitoring; Complete Time: 23:34 [facility] 04/28 23:06 Order name: EKG - Nurse/Tech; Complete Time: 23:34 [facility] 04/28 23:06 Order name: IV Saline Lock; Complete Time: 23:34 [facility] 04/28 23:06 Order name: Labs collected and sent; Complete Time: 23:34 [facility] 04/28 23:08 Order name: Flu; Complete Time: 01:15 04/29 00:03 Order name: CT Chest For PE Angio [facility] 04/28 23:06 Order name: O2 Per Protocol; Complete Time: 23:34 [facility] 04/28 23:06 Order name: O2 Sat Monitoring; Complete Time: 23:34 [facility] 04/28 23:06 Order name: Urine Dipstick-Ancillary (obtain specimen); Complete Time: 23:35 [facility] Administered Medications: 23:25 Drug: Albuterol - atroVENT (3:1) (2.5 mg - 0.5 mg) 3 ml Route: Nebulizer; [facility] 04/29 02:29 Follow up: Response: No adverse reaction [facility] 04/28 23:33 Drug: NS 0.9% 1000 ml Route: IV; Rate: 1 bolus; Site: left antecubital; [facility] 04/29 02:30 Follow up: IV Status: Completed infusion [facility] 04/28 23:33 Drug: SOLU-Medrol 125 mg Route: IVP; Site: left antecubital; [facility] 04/29 02:30 Follow up: Response: No adverse reaction [facility] 04/28 23:59 Drug: Tylenol 1000 mg Route: PO; [facility] 04/29 02:29 Follow up: Response: No adverse reaction [facility] 00:25 Drug: Rocephin - (cefTRIAXone) 1 grams Route: IVPB; Infused Over: 30 mins; Site: left 1 antecubital; 02:29 Follow up: IV Status: Completed infusion bs1 01:05 Drug: Zithromax 500 mg Route: IVPB; Infused Over: 1 hrs; Site: left antecubital; 1 02:29 Follow up: IV Status: Completed infusion bs1 01:05 Drug: Magnesium Sulfate 1 grams Route: IVPB; Infused Over: 1 hrs; Site: left [facility] antecubital; 02:29 Follow up: IV Status: Completed infusion bs1 Disposition: 04/28/18 23:10 Hospitalization ordered by Lance Kowalski for Inpatient Admission. Preliminary diagnosis are Fever, unspecified, Type 1 diabetes mellitus, Dyspnea, Hypomagnesemia. - Bed requested for Telemetry/MedSurg (Inpatient). - Status is Inpatient Admission. bs1 - Condition is Fair. - Problem is new. - Symptoms have improved. UTI on Admission? Yes Signatures: Dispatcher [employer] [place] Kathleen RN RN aj1 Heladio Veras MD MD cha Salazar, Brittany RN RN bs1 Mildred Cota Corrections: (The following items were deleted from the chart) 04/28 23:27 23:10 Hospitalization Ordered by Lance Kowalski MD for Inpatient Admission. Preliminary bridger diagnosis is Fever, unspecified; Type 1 diabetes mellitus; Dyspnea; Cystitis. Bed requested for Telemetry/MedSurg (Inpatient). Status is Inpatient Admission. Condition is Fair. Problem is new. Symptoms have improved. UTI on Admission? Yes. bridger 23:52 23:27 04/28/2018 23:10 Hospitalization Ordered by Lance Kowalski MD for Inpatient eb Admission. Preliminary diagnosis is Fever, unspecified; Type 1 diabetes mellitus; Dyspnea. Bed requested for Telemetry/MedSurg (Inpatient). Status is Inpatient Admission. Condition is Fair. Problem is new. Symptoms have improved. UTI on Admission? Yes. [facility] 23:55 23:12 Stone Protocol+CT.RAD.BRZ ordered. [facility] EDLA 04/29 00:04 04/28 23:52 04/28/2018 23:10 Hospitalization Ordered by Lance Kowalski MD for Inpatient bridger Admission. Preliminary diagnosis is Fever, unspecified; Type 1 diabetes mellitus; Dyspnea. Bed requested for Telemetry/MedSurg (Inpatient). Status is Inpatient Admission. Condition is Fair. Problem is new. Symptoms have improved. UTI on Admission? Yes. eb 04/29 01:58 00:04 04/28/2018 23:10 Hospitalization Ordered by Lance Kowalski MD for Inpatient bridger Admission. Preliminary diagnosis is Fever, unspecified; Type 1 diabetes mellitus; Dyspnea; Hypomagnesemia. Bed requested for Telemetry/MedSurg (Inpatient). Status is Inpatient Admission. Condition is Fair. Problem is new. Symptoms have improved. UTI on Admission? Yes. bridger 02:36 01:58 04/28/2018 23:10 Hospitalization Ordered by Lance Kowalski MD for Inpatient bs1 Admission. Preliminary diagnosis is Fever, unspecified; Type 1 diabetes mellitus; Dyspnea; Hypomagnesemia. Bed requested for Telemetry/MedSurg (Inpatient). Status is Inpatient Admission. Condition is Fair. Problem is new. Symptoms have improved. UTI on Admission? Yes. bridger
[2018-04-28] MEDS ORDERED: METHYLPREDNISOLONE 125 MG INJ ONE (23:14)
[2018-04-28] MEDS ORDERED: IPRATROPIUM BROM 0.5MG/2.5ML ONE (23:15)
[2018-04-28] MEDS ORDERED: ACETAMINOPHEN 500 MG TAB ONE (23:15)
[2018-04-28] MEDS ORDERED: ALBUTEROL 2.5 MG/3 ML NEB SOL ONE (23:15)
[2018-04-28] MEDS ORDERED: NA CHLORIDE 0.9% 1,000 ML ONE (23:15)
[2018-04-28] MEDS ORDERED: CEFTRIAXONE/SWI 1gm 1 GM/10 ML SYR ONE (23:16)
[2018-04-28] MEDS ORDERED: AZITHROMYCIN 500 MG/250 ML BAG ONE (23:16)
[2018-04-28 23:24] LABS: Urine Blood NEGATIVE (NEG); Urine Glucose 2+ (NEG); Urine Protein NEGATIVE (NEG); Urine Specific Gravity 1.015 (1.005-1.030); Urine pH 6.5 (5.0-7.0)
[2018-04-28 23:30] LABS: Absolute Lymphocytes (CBC) 1.4 K/uL (0.7-4.9); Absolute Monocytes 0.4 K/uL (0.1-1.3); Absolute Neutrophil 5.1 K/uL (1.8-8.0); Basophils % 0.8 % (0-1.3); Eosinophils % 0.8 % (0-4.4); Hematocrit 43.3 % (39.6-49.0); Lymphocytes % 20.5 % (15.3-44.8); MCV 89.1 fL (80-100); MPV 7.9 fL (7.6-11.3); Monocytes % 5.5 % (3.3-12.3); RBC Red Blood Cell Count 4.87 M/uL (4.33-5.43)
[2018-04-28 23:36] LABS: Protime INR 1.19
[2018-04-28 23:58] LABS: Albumin 3.4 g/dL (3.4-5.0); Bilirubin Direct 0.1 mg/dL (0-0.2); Bilirubin Total 0.4 mg/dL (0.2-1.0); CKMB Creatine Kinase MB 1.9 ng/mL (0.3-3.6); Potassium 3.8 mmol/L (3.5-5.1); Protein, Total 7.1 g/dL (6.4-8.2)
[2018-04-28 23:59] LABS: Magnesium 1.3 mg/dL (1.8-2.4)
[2018-04-29] MEDS ORDERED: GLUCAGON 1 MG/VIAL IM PRN (00:07)
[2018-04-29] MEDS ORDERED: D50W 25 GM/50 ML SYRINGE IV PRN (00:07)
[2018-04-29] MEDS ORDERED: MAGNESIUM SULFATE 1 gm IVPB 1 GM/100 ML BAG IV ONE (00:32)
[2018-04-29] MEDS ORDERED: ONDANSETRON 4 MG/2 ML VIAL IV PRN (03:10)
[2018-04-29] MEDS ORDERED: ACETAMINOPHEN 500 MG TAB PO PRN (03:10)
[2018-04-29] MEDS: ALBUTEROL 2.5 MG/3 ML NEB SOL NEB SCH ×5 (03:30→21:10)
[2018-04-29] MEDS: IPRATROPIUM BROM 0.5MG/2.5ML NEB SCH ×5 (03:30→21:10)
[2018-04-29 05:24] VITALS: BMI 39.4
--- NOTE | 2018-04-29 05:25 | P.HP ---
Certification for Inpatient Patient admitted to: Observation With expected LOS: <2 Midnights Practitioner: I am a practitioner with admitting privileges, knowledge of patient current condition, hospital course, and medical plan of care. Services: Services provided to patient in accordance with Admission requirements found in Title 42 Section 412.3 of the Code of Federal Regulations Patient History Date of Service: 04/29/18 Reason for admission: dyspnea History of Present Illness: Mr Burnett is a 62 years old male with history of IDDM, obesity, restrictive lung disease on home oxygen, HTN, start about 3 days ago with diarrhea. He denied nausea and vomiting, no abdominal pain. Today he reported fever about 101.0 F at home. He denied bloody or black stools. He is also complaining of more SOB than usual. He has dry cough as well. He states that feels dehydrated due to his constant diarrhea. At my encounter, he looks in mild distress, is afebrile, lab work shows normal WBC count, hypomagnesemia, normal procalcitonin. Allergies ibuprofen Allergy (Intermediate, Verified 04/29/18 01:25) Hives/Rash Home medications list reviewed: Yes Home Medications: Albuterol Neb [Proventil 0.083% Neb Soln] 2.5 mg IH TIDP PRN 04/29/18 Arformoterol Tartrate [Brovana] 15 mcg IH BID 04/29/18 Atorvastatin Calcium [Lipitor] 20 mg PO BEDTIME 04/29/18 Fenofibrate 160 mg PO DAILY 04/29/18 Furosemide [Lasix] 40 mg PO BIDP PRN 04/29/18 Gabapentin 600 mg PO TID 04/29/18 Insulin Glargine,Hum.rec.anlog [Tousam Lubin] 50 unit SQ BEDTIME 04/29/18 Insulin Lispro [Humalog Kwikpen U-100] 24 unit SQ TID 04/29/18 Ipratropium Neb [Atrovent Neb] 0.5 mg IH Q6H 04/29/18 Lansoprazole 30 mg PO DAILY 04/29/18 Metformin HCl 1,000 mg PO BID 04/29/18 Metoprolol Succinate [Toprol Xl] 50 mg PO [id number] 04/29/18 Oxycodone HCl/Acetaminophen [Oxycodone-Acetaminophen 10-325] 1 each PO Q12HP PRN 04/29/18 Spironolactone 50 mg PO BID 04/29/18 Tiotropium [place] [Spiriva] 1 spray IH DAILY 04/29/18 Trazodone [Desyrel] 50 mg PO BEDTIME 04/29/18 clonazePAM [Klonopin] 1 mg PO QIDP PRN 04/29/18 - Past Medical/Surgical History Has patient received pneumonia vaccine in the past: Yes Diabetic: Yes -: IDDM -: Hypertension -: hyperlipidemia -: anxiety -: depression -: Gastroesophageal reflux disease -: Obstructive sleep apnea -: (home 02 4L) -: Pancreatic surgery -: cholecystectomy -: several back surgery -: 2008 ercp, punctured something in his pacreas, then transfered to -: [facility] for open exploratory lap, had feeding tube that has reversed -: trach from previous surgery at [facility] - Family History Father -: Heart disease, Diabetes Mother -: Heart disease, Hypertension, Lung disease, GI disease, Diabetes, Stroke, Liver disease, Kidney disease Brother -: Heart disease, Hypertension, Lung disease, Diabetes, Stroke, Liver disease, Kidney disease Notes: 2 brothers Sister -: Heart disease, GI disease Notes: no known illness - Social History Smoking Status: Never smoker Alcohol use: No CD- Drugs: No Caffeine use: Yes Place of Residence: Home Review of Systems 10-point ROS is otherwise unremarkable Physical Examination - Vital Signs Temperature: 96.6 F Blood Pressure: 93/52 Pulse: 70 Respirations: 22 Pulse Ox (%): 92 - Physical Exam General: Alert, Mild distress HEENT: Atraumatic, PERRLA, Mucous membr. moist/pink, EOMI, Sclerae nonicteric Neck: Supple, 2+ carotid pulse no bruit, No LAD, Without JVD or thyroid abnormality Respiratory: Diminished, Other (no crackles) Cardiovascular: Normal S1 S2, No gallops Gastrointestinal: Normal bowel sounds, No tenderness Musculoskeletal: No tenderness Integumentary: No rashes Neurological: Normal speech, Normal strength at 5/5 x4 extr, Normal tone, Normal affect Lymphatics: No axilla or inguinal lymphadenopathy - Studies Laboratory Data (last 24 hrs) 04/28/18 23:17: PT 14.1 H, INR 1.19, APTT 29.1 04/28/18 23:17: WBC 7.0, Hgb 14.6, Hct 43.3, Plt Count 276 04/28/18 23:17: Sodium 138, Potassium 3.8, BUN 25 H, Creatinine 1.20, Glucose 217 H, Magnesium 1.3 L*, Total Bilirubin 0.4, AST 35, ALT 29, Alkaline Phosphatase 47 Microbiology Data (last 24 hrs): 04/28/18 23:41 Nasopharnyx Influenza Type A Antigen Screen - Final 04/28/18 23:41 Nasopharnyx Influenza Type B Antigen Screen - Final Assessment and Plan - Problems (Diagnosis) (1) Diarrhea Current Visit: Yes Status: Acute (2) Dyspnea Onset Date: 05/08/17 Current Visit: No Status: Acute Qualifiers: Dyspnea type: shortness of breath Qualified Code(s): R06.02 - Shortness of breath; R06.00 - Dyspnea, unspecified; R06.01 - Orthopnea (3) HTN (hypertension) Onset Date: 12/21/17 Current Visit: No Status: Chronic Qualifiers: Hypertension type: essential hypertension (4) Obstructive sleep apnea Onset Date: 05/08/17 Current Visit: No Status: Chronic (5) Restrictive lung disease Onset Date: 08/04/17 Current Visit: No Status: Chronic - Plan Will admit the patient under observation to replace electrolyte, will order C.Diff screening, start IV fluids. No signs of respiratory infection at this time. If stable my be D/C in AM. - Advance Directives Does patient have a Living Will: Yes Does patient have a Durable POA for Healthcare: Yes - Code Status/Comfort Care Code Status Assessed: Yes Code Status: Full Code
[2018-04-29 05:40] LABS: Absolute Lymphocytes (CBC) 0.7 K/uL (0.7-4.9); Absolute Monocytes 0.1 K/uL (0.1-1.3); Absolute Neutrophil 5.5 K/uL (1.8-8.0); Basophils % 0.1 % (0-1.3); Hematocrit 39.4 % (39.6-49.0); Lymphocytes % 10.7 % (15.3-44.8); MCH 30.1 pg (27.0-35.0); MCV 89.7 fL (80-100); MPV 8.2 fL (7.6-11.3); Monocytes % 1.3 % (3.3-12.3); RBC Red Blood Cell Count 4.39 M/uL (4.33-5.43)
[2018-04-29 05:54] LABS: Magnesium 1.5 mg/dL (1.8-2.4); Potassium 4.1 mmol/L (3.5-5.1)
[2018-04-29] MEDS: NA CHLORIDE 0.9% 1,000 ML IV SCH ×3 (05:57→21:28)
[2018-04-29] MEDS ORDERED: Magnesium Sulfate 2gm IVPB 2 G/50 ML BAG IV ONE (06:03)
--- NOTE | 2018-04-29 06:19 | EKG ---
Test Date: 2018-04-28 Test Time: 23:26:36 Inbound Telemarketer: DOROTHEA MEASUREMENT RESULTS: Intervals: Rate: 87 WI: 160 QRSD: 88 QT: 356 QTc: 428 [place]: P: 30 WI: 160 QRS: -32 T: 21 INTERPRETIVE STATEMENTS: Normal sinus rhythm Left axis deviation Abnormal ECG Compared to ECG 03/28/2018 15:54:38 No significant changes Electronically Signed On 04-29-18 06:19:06 CDT by Dre Mai
[2018-04-29] MEDS: TRAMADOL HCL 50 MG TAB PO PRN ×3 (07:15→21:29)
[2018-04-29 08:37] LABS: Blood Morphology Comment NOT SEEN (NOT SEEN); Platelet Estimate ADEQ; Platelets, Giant FEW
[2018-04-29] MEDS: INSULIN -REGULAR HUMAN 50 UNIT/0.5 ML ML SQ SCH ×4 (09:06→21:28)
[2018-04-29] MEDS ORDERED: OXYCODONE HCL PO PRN (11:03)
[2018-04-29] MEDS ORDERED: FUROSEMIDE 40 MG TABLET PO PRN (11:03)
[2018-04-29] MEDS ORDERED: clonazePAM 1 MG TAB PO PRN (11:03)
[2018-04-29] MEDS ORDERED: ACETAMINOPHEN PO PRN (11:03)
--- NOTE | 2018-04-29 11:17 | RAD REPORT ---
EXAM DESCRIPTION: CT - Chest For Pe Angio - 04/29/2018 2:22 am CLINICAL HISTORY: Chest pain. COUGH COMPARISON: Chest For Pe Angio dated 06/11/2017 TECHNIQUE: CT angiogram of the pulmonary arteries was performed with MIP. All CT scans are performed using dose optimization technique as appropriate and may include automated exposure control or mA/KV adjustment according to patient size. FINDINGS: No evidence of pulmonary thromboembolism. No acute aortic finding demonstrated. Significant atelectasis in the right middle lobe lung base with elevated right hemidiaphragm noted, c hronic. No significant pericardial or pleural fluid. No concerning bony finding. IMPRESSION: No evidence of pulmonary thromboembolism. Chronic elevated right hemidiaphragm.
[2018-04-29] MEDS ORDERED: Oxycodone HCl/Acetaminophen 1 TAB TAB PO PRN (11:29)
--- NOTE | 2018-04-29 12:34 | RAD REPORT ---
EXAM DESCRIPTION: RAD - Chest Single View - 04/29/2018 12:08 am CLINICAL HISTORY: COUGH Chest pain. COMPARISON: Chest Pa And Lat (2 Views) dated 03/30/2018; Chest Single View dated 03/28/2018; Chest Sing le View dated 02/13/2018; Chest Pa And Lat (2 Views) dated 12/21/2017; Chest For Pe Angio dated 8 FINDINGS: Portable technique limits examination quality. Subsegmental atelectasis is seen in the right lung base with mild elevation right hemidiaphragm. The lungs are otherwise grossly clear. The heart is mildly prominent. No displaced fractures. IMPRESSION: Subsegmental atelectasis in the right lung base with mildly elevated right hemidiaphragm .
[2018-04-29] MEDS: INSULIN LISPRO 100 UNIT/1 ML SQ SCH ×2 (13:08→17:30)
[2018-04-29] MEDS: SPIRONOLACTONE 100 MG TAB PO SCH ×2 (13:10→21:30)
[2018-04-29] MEDS: PANTOPRAZOLE 40MG TABLET PO SCH (13:11)
[2018-04-29] MEDS: GABAPENTIN 300 MG CAP PO SCH ×2 (13:12→21:29)
[2018-04-29] MEDS: FENOFIBRATE 160 MG TAB PO SCH (13:13)
[2018-04-29] MEDS ORDERED: INSULIN LISPRO 24 UNIT SQ SCH (14:00)
[2018-04-29] MEDS ORDERED: HOME MED 1 EA UNK (Gabapentin [Gabapentin] 600 MG) PO SCH (14:00)
--- NOTE | 2018-04-29 15:44 | PN ---
Date of Progress Note: 04/29/2018 Subjective: The patient is seen and examined. Chart reviewed and case discussed with RN. The patie nt having some difficulty breathing, otherwise states that he has had some episodes of diarrhea. Review of Systems: Negative except as above. Medications: List reviewed. Physical Examination: Vital Signs: Temperature 96.2, heart rate 70, blood pressure 96/65, respirations 30, O2 94% on 3 L v ia nasal cannula. General: Awake, alert, oriented x3, in some mild distress. Elderly male. BMI 39. CV: S1, S2. No murmurs. Peripheral pulses present bilaterally. Respiratory: Clear to auscultation bilaterally. No wheezing. Gastrointestinal: Abdomen is soft, nontender, nondistended. Positive bowel sounds. Extremities: No clubbing, cyanosis, pedal edema. Neurologic: Nonfocal. Laboratory Data: Sodium 136, potassium of 4.1, chloride 103, CO2 of 20, BUN 23, creatinine 1.10, glu cose 349, lactic acid 1.9, calcium 8, magnesium 1.5. WBC 6.3. H and H 13.2 and 39.4, platelets 251, neutrophils 87.9%. Influenza screen negative. Blood cultures pending. Assessment: A 62-year-old male with: 1.Diarrhea. We will obtain stool studies. Continue supportive care with IV fluids. 2.Dyspnea. The patient is on chronic oxygen for his restrictive lung disease. 3.Restrictive lung disease, chronic with chronic respiratory failure. 4.Essential hypertension, stable. 5.Obstructive sleep apnea. The patient instructed to have his CPAP brought from home. 6.Diabetes mellitus type 2, insulin dependent with hyperglycemia. We will continue sliding scale in sulin. 7.Hyperlipidemia. 8.Continue statin. 9.Generalized anxiety disorder, on clonazepam p.r.n. 10.Major depressive disorder. We will continue SSRI. 11.Gastroesophageal reflux disease without esophagitis. Continue PPI. 12.Gastrointestinal and deep venous thrombosis prophylaxis with PPI and Lovenox. 13.Hypomagnesemia. We will replace and monitor. Plan: Resume home medications as appropriate. The patient flagging for sepsis. We will obtain repe at lactate and follow up on cultures. SA/MODL Voice ID: [id number] Report ID: [id number]
[2018-04-29] MEDS ORDERED: INSULIN DETEMIR 100 UNIT/1 ML INSULIN SQ SCH (21:00)
[2018-04-29] MEDS ORDERED: HOME MED 1 EA UNK (Spironolactone [Spironolactone] 50 MG) PO SCH (21:00)
[2018-04-29] MEDS ORDERED: INSULIN GLARGINE HUM REC ANLOG 50 UNIT SQ SCH (21:00)
[2018-04-29] MEDS ORDERED: TRAZODONE 50 MG TABLET PO SCH (21:00)
[2018-04-29] MEDS ORDERED: ATORVASTATIN 20 MG TAB PO SCH (21:00)
[2018-04-29] MEDS: ARFORMOTEROL TARTRATE 15 MCG/2 ML VIAL.NEB IH SCH (21:10)
[2018-04-30] MEDS: ALBUTEROL 2.5 MG/3 ML NEB SOL NEB SCH ×2 (03:36→08:41)
[2018-04-30] MEDS: IPRATROPIUM BROM 0.5MG/2.5ML NEB SCH ×2 (03:36→08:41)
[2018-04-30 04:42] LABS: Absolute Lymphocytes (CBC) 2.8 K/uL (0.7-4.9); Absolute Monocytes 0.8 K/uL (0.1-1.3); Absolute Neutrophil 5.6 K/uL (1.8-8.0); Basophils % 0.2 % (0-1.3); Eosinophils % 0.9 % (0-4.4); Hematocrit 37.9 % (39.6-49.0); Lymphocytes % 30.2 % (15.3-44.8); MCH 29.7 pg (27.0-35.0); MCV 89.1 fL (80-100); Monocytes % 8.8 % (3.3-12.3); RBC Red Blood Cell Count 4.26 M/uL (4.33-5.43)
[2018-04-30 04:54] LABS: Potassium 3.7 mmol/L (3.5-5.1)
[2018-04-30] MEDS ORDERED: POTASSIUM 25 MEQ EFFERV TAB PO ONE (05:07)
[2018-04-30] MEDS: TRAMADOL HCL 50 MG TAB PO PRN (05:28)
[2018-04-30] MEDS ORDERED: METOPROLOL XL 50 MG TAB PO SCH (06:00)
[2018-04-30 08:15] VITALS: TEMP 97
[2018-04-30] MEDS: INSULIN -REGULAR HUMAN 50 UNIT/0.5 ML ML SQ SCH ×2 (08:29→12:08)
[2018-04-30] MEDS: INSULIN LISPRO 100 UNIT/1 ML SQ SCH ×2 (08:29→12:09)
[2018-04-30] MEDS: GABAPENTIN 300 MG CAP PO SCH (08:30)
[2018-04-30] MEDS: SPIRONOLACTONE 100 MG TAB PO SCH (08:30)
[2018-04-30] MEDS: FENOFIBRATE 160 MG TAB PO SCH (08:30)
[2018-04-30] MEDS: PANTOPRAZOLE 40MG TABLET PO SCH (08:30)
[2018-04-30] MEDS: ARFORMOTEROL TARTRATE 15 MCG/2 ML VIAL.NEB IH SCH (08:41)
[2018-04-30] MEDS ORDERED: TIOTROPIUM 5 SPRAYS/INHALER IH SCH (09:00)
[2018-04-30] MEDS ORDERED: LANSOPRAZOLE 30 MG PO SCH (09:00)
[2018-04-30 12:14] VITALS: O2SAT 95
[2018-04-30 12:42] VITALS: BP 113/70
--- NOTE | 2018-05-01 05:34 | DS ---
Date of Discharge: 04/30/2018 Admitting Diagnoses: 1.Diarrhea. 2.Shortness of breath. 3.Hypertension. 4.Obstructive sleep apnea. 5.Restrictive lung disease. Discharge Diagnoses: 1.Diarrhea, likely secondary to viral gastroenteritis. Clostridium difficile culture negative, resu lt. 2.Dyspnea. The patient has chronic respiratory failure, on oxygen due to his restrictive lung disea se. 3.Restrictive lung disease with chronic respiratory failure, on home oxygen. 4.Essential hypertension, stable. 5.Noncompliance. 6.Obstructive sleep apnea. The patient has not been using his CPAP at home. 7.Diabetes mellitus type 2, insulin dependent with hyperglycemia. 8.Hyperlipidemia, on statin. 9.Generalized anxiety disorder, on benzodiazepines p.r.n. 10.Major depressive disorder, on SSRI. 11.Gastroesophageal reflux disease without esophagitis, PPI. 12.Hypomagnesemia, replaced. Hospital Course: The patient is a 62-year-old male with restrictive lung disease, on oxygen, who has multiple admissions to the hospital, follows up with Dr. Ramsey with Pulmonology as an outpatient, noncompliant with his CPAP, comes in with a 3-day history of diarrhea and some shortness of breath. The patient did report a fever at home. Denied any melenic stools, came in dehydrated. He was star zakia on some IV fluids. His stool cultures and C diff were checked, which was negative. Blood cultur es showed no growth to date. Influenza screen was also negative. The patient did have some shortnes s of breath. Therefore, imaging studies were done including a CT angio, which showed no evidence of PE. Chronic elevated left hemidiaphragm was seen. Chest x-ray showed subsegmental atelectasis in th e right lung base with mildly elevated right hemidiaphragm. The patient did well. He responded well to rehydration. He did have some electrolyte abnormalities, which were corrected. White count ang ined stable. He was afebrile. The patient was then no longer having diarrhea. Able to tolerate his diet. His medications had been resumed. His shortness of breath was at baseline. According to the , the patient has been noncompliant with his CPAP and apparently is in danger of having his CPAP being taken for nonuse. However, the patient was counseled extensively on being compliant with CPAP use. The patient was then cleared for discharge in stable condition. Activity: No strenuous activity, as tolerated. Medications: As per medication reconciliation list. Diet: Diabetic. Followup: Follow up with primary care physician, Dr. Jaffe in 2-3 days. Return to ER for worsening co ndition. Physical Examination: General: Awake, alert, oriented, no acute distress. CV: S1, S2. No murmurs. Respiratory: Moving air well bilaterally. Abdomen: Abdomen is soft, nontender, nondistended. Positive bowel sounds. Extremities: No clubbing, cyanosis, edema. Neurologic: Nonfocal. SA/MODL Voice ID: [id number] Report ID: [id number]
== END 2018-04-30 13:05 | disposition home or self-care (01) ==
LOC: ER 20:32 → INTOOBSV 04-29 00:05 → ERHOLD 04-29 00:05 → 4TH 04-29 02:00
PROVIDERS: ADMIT Internal Medicine; ATTEND Internal Medicine
DX: R19.7 Diarrhea, unspecified (principal); J98.4 Other disorders of lung; J96.10 Chronic respiratory failure, unspecified whether with hypoxia or hypercapnia; J98.11 Atelectasis; Z91.19 Patient's noncompliance with other medical treatment and regimen; G47.33 Obstructive sleep apnea (adult) (pediatric); I10 Essential (primary) hypertension; E11.65 Type 2 diabetes mellitus with hyperglycemia; E78.5 Hyperlipidemia, unspecified; F41.8 Other specified anxiety disorders; K21.9 Gastro-esophageal reflux disease without esophagitis; E83.42 Hypomagnesemia
CPT/HCPCS: 36415 ×2; 71045; 71275; 80048 ×3; 80076; 81003; 82550; 82553; 82962 ×6; 83605; 83735 ×4; 83880; 84145; 84484; 85025 ×3; 85610; 85730; 87040 ×2; 87045; 87046; 87493; 87804 ×2; 89055; 93005; 94640 ×2; 96361; 96365; 96367 ×2; 96368; 96375; 99285; G0378 ×2; J0456; J0696; J2930; J3475 ×2; J7030 ×4; J7605 ×2; Q9967

== ENCOUNTER 2018-06-09 14:40 | Inpatient (IN) | payer MEDICARE, SELFPAY ==
--- OUTSIDE RECORDS SUMMARY | 2018-06-09 14:43 | XMS REPORT | Clinical Summary ---
:1955 Author Organization [facility] Address [address] [place] [address] Care Team Providers Name Role Phone Bebeto [...] U-100 TID. 1 mL 31 gauge x /16 syringe insulin glulisine Inject under Active U-100 [...] 17 tabletIndications: by mouth Mixed hyperlipidemia nightly. metFORMIN Take 1 tablet 180 tablet 3 [...] Encounters Date Type Specialty Care Team Description 05/22/2018 Orders Only Endocrinology Susanna Laboy MA 05/17/2018 Documentation Endocrinology Susanna Laboy MA 03/22/2018 Documentation Endocrinology Susanna Laboy, LUIS MIGUEL 03/22/2018 Orders Only Endocrinology Susanna Laboy, LUIS MIGUEL 03/20/2018 Office Visit Endocrinology Kimi Jack, Uncontrolled type 2 diabetes mellitus with complication, unspecified long distance operator insulin use status (Primary Dx); Hyperlipidemia, unspecified hyperlipidemia type 03/20/2018 Ancillary Procedure Kimi Jack, 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, with long-term current use of insulin; Osteopenia, unspecified location 03/19/2018 Telephone Endocrinology Feliica Denton 03/06/2018 Orders Only Endocrinology Susanna Laboy, LUIS MIGUEL 02/06/2018 Refill Endocrinology Alexander Mckeon Type 2 diabetes MD Madalyn mellitus with complication, with long-term current use of insulin 01/04/2018 Refill Endocrinology Alexander Mckeon Mixed hyperlipidemia MD Madalyn 01/02/2018 Orders Only Endocrinology Susanna Laboy, LUIS MIGUEL 12/27/2017 Documentation Endocrinology Susanna Laboy, LUIS MIGUEL 12/09/2017 Refill Endocrinology Alexander Mckeon Uncontrolled type 2 MD Madalyn diabetes mellitus with other circulatory complication, with long-term current use of insulin 12/01/2017 Office Visit Endocrinology Kimi Jack, 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, with long-term current use of insulin (Primary Dx); Osteopmaxi, unspecified location 08/14/2017 Orders Only Endocrinology Paulina, [...] hypertension; Mixed hyperlipidemia; Coronary artery disease involving [place] heart with angina pectoris, unspecified vessel or lesion type 07/19/2017 Orders Only Endocrinology Susanna Laboy, Benign essential MA hypertension after 06/08/2017 Family History Medical History Relation Name Comments [...] 36.2 C (97.1 F) 12/01/2017 12:05 PM FUSION OPERATOR Respiratory Rate 95 08/11/2017 9:18 AM CDT Oxygen Saturation 100% 03/20/2018 10:20 AM CDT Inhaled Oxygen Concentration - - Weight 113 kg (250 lb) 03/20/2018 10:20 AM CDT Height 170.2 cm (5' 7") 03/20/2018 10:20 AM CDT Body Mass Index 39.16 03/20/2018 10:20 AM CDT Plan of Treatment Date Type Specialty Care Team Description 07/25/2018 Office Visit Endocrinology Kimi Jack MD [address] [address] Health Maintenance Due Date Last [...] Results for this HEMOGLOBIN (HGB A1C) PM FUSION OPERATOR diabetes mellitus procedure are in with other the results circulatory section. complication, with long-term current use of insulin POC GLUCOSE Routine 12/01/2017 12:18 Uncontrolled type 2 Results for this PM FUSION OPERATOR diabetes mellitus procedure are in with other [...] with long-term current use of insulin after 06/08/2017 Results POC glycosylated hemoglobin (Hb A1C) (03/20/2018 10:34 AM)Only the most recent of3 resultswithin the time period is included. POC Hemoglobin A1C 8.6 % Specimen Blood POC glucose (03/20/2018 10:34 AM)Only the most recent of3 resultswithin the time period is included. POC glucose 136Comment: non fasting 65 - 100 Specimen Blood Bone Density (03/20/2018 10:09 AM) Narrative Performed At [facility] [address] [place] [address]. [address] [place] [id number] Bone Density Report Name: Garrison Burnett Sex: Male Age: 62 Ethnicity: White Height: 64.0 in Referring Provider: KIMI JACK Date of : 1955 Weight: 249.8lb Indication: History of glucocorticoids Accession number: [id number] Bone Density: Exam date 03/20/2018 Region BMD [...] AM. Performing Organization Address City/State/Zipcode Phone Number [facility] [address] [place] [address] after 06/08/2017 Insurance Payer Benefit Plan / Group Subscriber ID Type Phone Address UHC MEDICARE AARP MEDICARE COMPLETE [facility] xxxxxxxxx O
[2018-06-09] MEDS ORDERED: IPRATROPIUM BROM 0.5MG/2.5ML ONE (15:01)
[2018-06-09] MEDS ORDERED: LEVALBUTEROL 1.25 MG/3 ML NEB ONE (15:01)
[2018-06-09] MEDS ORDERED: METHYLPREDNISOLONE 125 MG INJ ONE (15:07)
[2018-06-09 15:34] LABS: Absolute Lymphocytes (CBC) 2.9 K/uL (0.7-4.9); Absolute Monocytes 0.5 K/uL (0.1-1.3); Absolute Neutrophil 4.8 K/uL (1.8-8.0); Basophils % 0.9 % (0-1.3); Eosinophils % 1.6 % (0-4.4); Hematocrit 38.7 % (39.6-49.0); Lymphocytes % 34.3 % (15.3-44.8); MCH 31.2 pg (27.0-35.0); MCV 89.3 fL (80-100); MPV 8.1 fL (7.6-11.3); RBC Red Blood Cell Count 4.33 M/uL (4.33-5.43)
[2018-06-09 15:44] LABS: Potassium 3.5 mmol/L (3.5-5.1)
[2018-06-09] MEDS ORDERED: NA CHLORIDE 0.9% 500 ML ONE (16:14)
[2018-06-09] MEDS ORDERED: MAGNESIUM SULFATE 1 gm IVPB 1 GM/100 ML BAG IV ONE (16:16)
[2018-06-09] MEDS ORDERED: MEPERIDINE HCL 25 MG/0.5 ML ONE (16:23)
--- NOTE | 2018-06-09 16:26 | RAD REPORT ---
EXAM DESCRIPTION: RAD - Chest Single View - 06/09/2018 4:20 pm CLINICAL HISTORY: DYSPNEA Chest pain. COMPARISON: Chest Single View dated 04/28/2018; Chest Pa And Lat (2 Views) dated 03/30/2018; Chest Sing le View dated 03/28/2018; Chest Single View dated 02/13/2018 FINDINGS: Portable technique limits examination quality. The lungs are significantly underinflated resulting in vascular crowding. Cardiac size is mildly prom inent. No displaced fractures. IMPRESSION: Significantly underinflated lungs.
[2018-06-09 16:34] LABS: Blood Gas Oxyhemoglobin 91.8 % (94-97); Blood O2 Saturation 93.9 % (92-98.5)
--- NOTE | 2018-06-09 16:37 | EKG ---
Test Date: 2018-06-09 Test Time: 15:28:45 Carpenter/Labor: MATEO MEASUREMENT RESULTS: Intervals: Rate: 89 [place]: 162 QRSD: 94 QT: 348 QTc: 423 [place]: P: 31 IL: 162 QRS: -20 T: 42 INTERPRETIVE STATEMENTS: Normal sinus rhythm Nonspecific T wave abnormality Abnormal ECG Compared to ECG 04/28/2018 23:26:36 T-wave abnormality now present Left-axis deviation no longer present Electronically Signed On 06-09-18 16:36:42 CDT by Dre Mai
[2018-06-09] MEDS ORDERED: ONDANSETRON 4 MG/2 ML VIAL IV PRN (17:40)
[2018-06-09] MEDS ORDERED: ACETAMINOPHEN 500 MG TAB PO PRN (17:40)
--- NOTE | 2018-06-09 17:57 | EDPHYS ---
Physician Documentation [facility] Name: Asim Burnett Age: 62 yrs Sex: Male : 1955 Arrival Date: 06/09/2018 Time: 14:44 Bed 4 Private MD: Bebeto Jaffe H ED Physician Xu Lowry HPI: 06/09 16:24 This 62 yrs old Male presents to ER via Wheelchair with complaints of rn Breathing Difficulty. 16:24 The patient has shortness of breath at rest. rn 16:27 Onset: The symptoms/episode began/occurred 2 day(s) ago. Duration: The symptoms are rn continuous. The patient's shortness of breath is aggravated by exertion, light activity, talking. Associated signs and symptoms: Pertinent positives: chest pain, non-productive cough, Pertinent negatives: diaphoresis, fever, hemoptysis, loss of consciousness. Severity of symptoms: At their worst the symptoms were moderate in the emergency department the symptoms are unchanged. The patient has experienced similar episodes in the past. The patient has not recently seen a physician. Reports sob, began 2-3 days ago, worse with exertion and talking, + mild chest pressure, has happened multiple times in past, told by Dr. Ramsey that is not COPD/asthma, but takes inhalers and usually helps, not helping this time. No fever. . Historical: - Allergies: 15:05 Ibuprofen; aj1 - Home Meds: 15:11 Albuterol Inhl [Active]; spironolactone 25 mg Oral tab 1 tab once daily [Active]; aj1 symbicort [Active]; clonazepam 1 mg Oral tab 1 tab QID PRN [Active]; oxycodone-acetaminophen 10-325 mg Oral tab 1 tab twice a day [Active]; Abilify 5 mg oral tab 1 tab once daily [Active]; enalapril maleate 20 mg Oral tab 1 tab once daily [Active]; fenofibrate 160 mg Oral tab 1 tab once daily [Active]; metformin 1,000 mg Oral TG24 1 tab 2 times per day [Active]; trazodone 50 mg Oral tab 1 tab nightly [Active]; amlodipine 5 mg tab 1 tab once daily [Active]; Toujeo SoloStar 300 unit/mL (1.5 mL) subcutaneous inpn 50 unit nightly [Active]; lansoprazole 30 mg Oral cpDR 1 cap once daily [Active]; Humalog 100 unit/mL Sub-Q soln 24 unit three times a day [Active]; - PMHx: 15:05 Anxiety; Depression; Diabetes - IDDM; High Cholesterol; Hypertension; aj1 - Immunization history:: Adult Immunizations up to date. - Social history:: Smoking status: Patient/guardian denies using tobacco. - Ebola Screening: : Patient denies travel to an Ebola-affected area in the 21 days before illness onset. - Family history:: not pertinent. ROS: 16:27 Constitutional: Negative for fever, chills, and weight loss, Eyes: Negative for injury, rn pain, redness, and discharge, Neck: Negative for injury, pain, and swelling, Cardiovascular: + chest pain, + edema Respiratory: + sob, no cough Abdomen/GI: Negative for abdominal pain, nausea, vomiting, diarrhea, and constipation, Back: Negative for injury and pain, MS/Extremity: Negative for injury and deformity, Skin: Negative for injury, rash, and discoloration, Neuro: + generalized weakness Exam: 16:27 Constitutional: This is a well developed, well nourished patient who is awake, alert, rn moderate respiratory distress Head/Face: Normocephalic, atraumatic. Eyes: Pupils equal round and reactive to light, extra-ocular motions intact. Lids and lashes normal. Conjunctiva and sclera are non-icteric and not injected. Cornea within normal limits. Periorbital areas with no swelling, redness, or edema. ENT: dry MM, no stridor Cardiovascular: Regular rate and rhythm with a normal S1 and S2. No gallops, murmurs, or rubs. Normal PMI, no JVD. No pulse deficits. Respiratory: + moderate tachypnea with shallow breaths and poor inspiratory air movement Abdomen/GI: Soft, non-tender. No distension or tympany. No guarding or rebound. No evidence of tenderness throughout. MS/ Extremity: Pulses equal, no cyanosis. Neurovascular intact. Full, normal range of motion. Equal circumference. 1+ non-pitting edema bilateral lower ext. Neuro: Awake and alert, GCS 15, oriented to person, place, time, and situation. Cranial nerves II-XII grossly intact. Motor strength 5/5 in all extremities. Sensory grossly intact. Vital Signs: 15:05 BP 145 / 96; Pulse 93; Resp 36; Temp 98.3(O); Pulse Ox 91% on R/A; aj1 15:07 Pulse Ox 97% on 4 lpm NC; aj1 16:04 BP 143 / 87; Pulse 89; Resp 40; Pulse Ox 95% on Nebulizer Mask; aj1 16:06 BP 142 / 83; Pulse 90; Resp 34; Pulse Ox 95% on Nebulizer Mask; sv 16:26 Pulse 89; Resp 30; Pulse Ox 93% on 40% BiPAP; sv 17:05 BP 130 / 82; Pulse 84 MON; Resp 30; Pulse Ox 94% on 40% BiPAP; sv 18:15 BP 124 / 78; Pulse 85; Resp 25; Pulse Ox 92% ; em1 19:00 BP 124 / 84; Pulse 84; Resp 26; Pulse Ox 94% on 40% BiPAP; lp1 19:30 BP 126 / 84; Pulse 85; Resp 25; Pulse Ox 93% on 40% BiPAP; lp1 20:00 BP 135 / 85; Pulse 89; Resp 28; Pulse Ox 96% on 40% BiPAP; lp1 20:30 BP 120 / 79; Pulse 89; Resp 25; Pulse Ox 95% on 40% BiPAP; lp1 21:00 BP 115 / 80; Pulse 92; Resp 27; Pulse Ox 98% on 40% BiPAP; lp1 16:26 14/7, rate-14 sv MDM: 14:47 Patient medically screened. rn 17:37 Differential diagnosis: Anemia Bronchitis CHF exacerbation, Chronic Obstructive rn Pulmonary Disease Myocardial Infarction pulmonary edema, Pulmonary Embolism. Data reviewed: vital signs, nurses notes, lab test result(s), EKG, radiologic studies, plain films, and as a result, I will admit patient. Counseling: I had a detailed discussion with the patient and/or guardian regarding: the historical points, exam findings, and any diagnostic results supporting the discharge/admit diagnosis, lab results, radiology results, the need for further work-up and treatment in the hospital. Response to treatment: the patient's symptoms have markedly improved after treatment, and as a result, I will admit patient. Admission orders: after a detailed discussion of the patient's condition and case, the admit orders are written by me. ED course: Pt markedly improved on bipap, ABG looks good, will admit to ICU under Dr Carpio . 06/09 14:58 Order name: Blood Culture Adult (2) rn 06/09 14:58 Order name: BMP; Complete Time: 15:55 rn 06/09 14:58 Order name: CBC with Diff; Complete Time: 15:55 rn 06/09 14:58 Order name: NT PRO-BNP; Complete Time: 15:55 rn 06/09 14:58 Order name: Troponin (emerg Dept Use Only); Complete Time: 16:09 rn 06/09 14:58 Order name: Procalcitonin; Complete Time: 15:55 rn 06/09 14:58 Order name: XRAY CXR (1 view); Complete Time: 17:20 rn 06/09 16:04 Order name: BIPAP 06/09 16:12 Order name: CT Chest For PE Angio rn 06/09 16:23 Order name: ABG; Complete Time: 17:20 hb 06/09 20:04 Order name: Urine Dipstick--Ancillary (enter results) ri 06/09 20:28 Order name: Urine Dipstick-Ancillary [facility] 06/09 14:58 Order name: EKG; Complete Time: 14:59 06/09 14:58 Order name: Cardiac monitoring; Complete Time: 15:57 rn 06/09 14:58 Order name: EKG - Nurse/Tech; Complete Time: 15:57 06/09 14:58 Order name: IV Saline Lock; Complete Time: 15:17 06/09 14:58 Order name: Labs collected and sent; Complete Time: 15:17 rn 06/09 14:58 Order name: O2 Per Protocol; Complete Time: 15:17 rn 06/09 14:58 Order name: O2 Sat Monitoring; Complete Time: 15:17 rn 06/09 17:44 Order name: CONS Physician Consult [facility] 06/09 17:44 Order name: Respiratory Therapy Consult [facility] 06/09 17:44 Order name: Consistent Carb (ADA) [address] EDOH Administered Medications: 15:00 Drug: Xopenex (3) 1.25 mg Route: Inhalation; em 15:01 Drug: AtroVENT Aerosol 0.5 mg Route: Inhalation; em 15:10 Drug: SOLU-Medrol 125 mg Route: IVP; Site: left antecubital; kr2 16:00 Follow up: Response: No adverse reaction sv 16:15 Drug: NS 0.9% 500 ml Route: IV; Rate: bolus; Site: left antecubital; em 16:45 Follow up: Response: No adverse reaction; IV Status: Completed infusion; IV Intake: sv 500ml 16:18 Drug: Magnesium Sulfate 1 grams Route: IVPB; Infused Over: 1 hrs; Site: right forearm; sv 17:15 Follow up: Response: No adverse reaction; IV Status: Completed infusion; IV Intake: sv 100ml 16:22 Drug: Demerol - Meperidine 12.5 mg Route: IVP; Site: right forearm; sv 16:30 Follow up: Response: No adverse reaction sv Point of Care Testing: Blood Glucose: 21:03 Blood Glucose: 294 mg/dL; lp1 Ranges: Critical Glucose Levels:Adult <50 mg/dl or >400 mg/dl <40 mg/dl or >180 mg/dl Disposition: 17:54 Critical Care:. rn Disposition: 06/09/18 17:56 Hospitalization ordered by Jose Carpio for Inpatient Admission. Preliminary diagnosis are Dyspnea, unspecified, Wheezing, Respiratory distress. - Bed requested for Intensive Care Unit. - Status is Inpatient Admission. lp1 - Condition is Fair. - Problem is new. - Symptoms have improved. UTI on Admission? No Critical care time excluding procedures: 17:54 Critical care time: Bedside Care: 30 minutes. Total time: 30 minutes rn Signatures: Dispatcher [employer] [place] Kathleen RN RN aj1 Lewis, Kimberly RN Shraddha High RN RN Rory Almanzar, PANTRY ATTENDANT PANTRY ATTENDANT em Xu Lowry MD MD rn Pena, Laura, RN RN lp1 Rosalba Tong RN RN kr2 Corrections: (The following items were deleted from the chart) 19:52 17:56 Hospitalization Ordered by Jose Carpio MD for Inpatient Admission. Preliminary kl diagnosis is Dyspnea, unspecified; Wheezing; Respiratory distress. Bed requested for Intensive Care Unit. Status is Inpatient Admission. Condition is Fair. Problem is new. Symptoms have improved. UTI on Admission? No. rn 21:09 19:52 06/09/2018 17:56 Hospitalization Ordered by Jose Carpio MD for Inpatient lp1 Admission. Preliminary diagnosis is Dyspnea, unspecified; Wheezing; Respiratory distress. Bed requested for Intensive Care Unit. Status is Inpatient Admission. Condition is Fair. Problem is new. Symptoms have improved. UTI on Admission? No. kl
--- NOTE | 2018-06-09 17:57 | ER ---
Nurse's Notes [facility] Name: Asim Burnett Age: 62 yrs Sex: Male : 1955 Arrival Date: 06/09/2018 Time: 14:44 Bed 4 Private MD: Bebeto Jaffe H Diagnosis: Dyspnea, unspecified;Wheezing;Respiratory distress Presentation: 06/09 15:04 Presenting complaint: Patient states: Shortness of breath for the past 2 days. Denies aj1 fever, cough, congestion. Denies chest pain. States that his inhaler usually helps but today it isnt. Audible wheezes noted. Patient states that he wear O2 at home at 4L. Transition of care: patient was not received from another setting of care. Onset of symptoms was June 07, 2018. Risk Assessment: Do you want to hurt yourself or someone else? Patient reports no desire to harm self or others. Initial Sepsis Screen: Does the patient meet any 2 criteria? No. Patient's initial sepsis screen is negative. Does the patient have a suspected source of infection? No. Patient's initial sepsis screen is negative. Care prior to arrival: None. 15:04 Method Of Arrival: Wheelchair aj1 15:04 Acuity: ORACIO 2 aj1 Triage Assessment: 15:05 General: Appears uncomfortable, Behavior is cooperative, anxious. Neuro: Level of aj1 Consciousness is awake, alert, obeys commands. Cardiovascular:. Respiratory: Reports shortness of breath Airway is patent Respiratory effort is even, labored, Respiratory pattern is regular, symmetrical, Breath sounds with wheezes bilaterally. Onset: The symptoms/episode began/occurred 2 days ago, the patient has moderate shortness of breath. Historical: - Allergies: 15:05 Ibuprofen; aj1 - Home Meds: 15:11 Albuterol Inhl [Active]; spironolactone 25 mg Oral tab 1 tab once daily [Active]; aj1 symbicort [Active]; clonazepam 1 mg Oral tab 1 tab QID PRN [Active]; oxycodone-acetaminophen 10-325 mg Oral tab 1 tab twice a day [Active]; Abilify 5 mg oral tab 1 tab once daily [Active]; enalapril maleate 20 mg Oral tab 1 tab once daily [Active]; fenofibrate 160 mg Oral tab 1 tab once daily [Active]; metformin 1,000 mg Oral TG24 1 tab 2 times per day [Active]; trazodone 50 mg Oral tab 1 tab nightly [Active]; amlodipine 5 mg tab 1 tab once daily [Active]; Toujeo SoloStar 300 unit/mL (1.5 mL) subcutaneous inpn 50 unit nightly [Active]; lansoprazole 30 mg Oral cpDR 1 cap once daily [Active]; Humalog 100 unit/mL Sub-Q soln 24 unit three times a day [Active]; - PMHx: 15:05 Anxiety; Depression; Diabetes - IDDM; High Cholesterol; Hypertension; aj1 - Immunization history:: Adult Immunizations up to date. - Social history:: Smoking status: Patient/guardian denies using tobacco. - Ebola Screening: : Patient denies travel to an Ebola-affected area in the 21 days before illness onset. - Family history:: not pertinent. Screenin:19 Abuse screen: Denies threats or abuse. Nutritional screening: No deficits noted. em Tuberculosis screening: No symptoms or risk factors identified. Fall Risk. Fall Risk None identified. Assessment: 15:00 General: Appears distressed, uncomfortable, Behavior is cooperative, Reports feeling em SOB for the past 3 days Denies fever. Pain: Denies pain. Neuro: Level of Consciousness is awake, obeys commands, Oriented to person, place, time, situation. Cardiovascular: Denies chest pain, Rhythm is regular. Respiratory: Reports shortness of breath since 3 days ago Airway is patent Respiratory effort is labored, Respiratory pattern is tachypnea. GI: Abdomen is obese. Derm: Skin is intact, Skin is clammy, Skin is normal. Musculoskeletal: Range of motion: intact in all extremities. 15:05 Reassessment: I agree with previous assessment. hb 16:08 General: Appears distressed, uncomfortable, Behavior is calm, cooperative. Pain: sv Complains of pain in back Pain currently is 5 out of 10 on a pain scale. Is chronic. Neuro: Level of Consciousness is awake, obeys commands, Oriented to person, place, time, situation. Cardiovascular: Heart tones S1 S2 present Patient's skin is warm and dry. Pulses are 3+ in right radial artery and left radial artery Rhythm is sinus rhythm. Respiratory: Respiratory effort is labored, shallow, Respiratory pattern is tachypnea Breath sounds with crackles bilaterally. GI: Abdomen is obese. Derm: Skin is normal. 16:30 Reassessment: Patient appears in no apparent distress at this time. Patient and/or sv family updated on plan of care and expected duration. Pain level reassessed. Patient is alert, oriented x 3, equal unlabored respirations, skin warm/dry/pink. 18:30 Reassessment: Patient appears in no apparent distress at this time. Patient and/or sv family updated on plan of care and expected duration. Pain level reassessed. Patient is alert, oriented x 3, equal unlabored respirations, skin warm/dry/pink. 19:36 Neuro: Level of Consciousness is awake, alert, obeys commands. Cardiovascular: lp1 Patient's skin is warm and dry. Respiratory: Airway is patent Respiratory effort is labored, Respiratory pattern is tachypnea BiPAP in place Breath sounds are clear bilaterally. the patient has moderate shortness of breath. GI: Abdomen is non-distended, obese. : No signs and/or symptoms were reported regarding the genitourinary system. EENT: No deficits noted. 19:40 Reassessment: Attempted to call report at this time. lp1 20:03 Reassessment: Attempted to call report, ICU stated that they are calling in another tl2 nurse and that it would be a while before they could take the patient. 20:30 Reassessment:. Neuro: Level of Consciousness is awake, alert, obeys commands. lp1 Respiratory: Respiratory effort is even, Respiratory pattern is tachypnea. Derm: Skin is pink, warm \T\ dry. Vital Signs: 15:05 BP 145 / 96; Pulse 93; Resp 36; Temp 98.3(O); Pulse Ox 91% on R/A; aj1 15:07 Pulse Ox 97% on 4 lpm NC; aj1 16:04 BP 143 / 87; Pulse 89; Resp 40; Pulse Ox 95% on Nebulizer Mask; aj1 16:06 BP 142 / 83; Pulse 90; Resp 34; Pulse Ox 95% on Nebulizer Mask; sv 16:26 Pulse 89; Resp 30; Pulse Ox 93% on 40% BiPAP; sv 17:05 BP 130 / 82; Pulse 84 MON; Resp 30; Pulse Ox 94% on 40% BiPAP; sv 18:15 BP 124 / 78; Pulse 85; Resp 25; Pulse Ox 92% ; em1 19:00 BP 124 / 84; Pulse 84; Resp 26; Pulse Ox 94% on 40% BiPAP; lp1 19:30 BP 126 / 84; Pulse 85; Resp 25; Pulse Ox 93% on 40% BiPAP; lp1 20:00 BP 135 / 85; Pulse 89; Resp 28; Pulse Ox 96% on 40% BiPAP; lp1 20:30 BP 120 / 79; Pulse 89; Resp 25; Pulse Ox 95% on 40% BiPAP; lp1 21:00 BP 115 / 80; Pulse 92; Resp 27; Pulse Ox 98% on 40% BiPAP; lp1 16:26 14/7, rate-14 sv ED Course: 14:44 Patient arrived in ED. sb2 14:44 Bebeto Jaffe DO is Private Physician. sb2 14:47 Xu Lowry MD is Attending Physician. rn 15:00 Rory Almanzar LVN is Primary Nurse. em 15:05 Triage completed. aj1 15:05 Arm band placed on Patient placed in an exam room. aj1 15:10 Patient has correct armband on for positive identification. Bed in low position. Call em light in reach. 15:10 Inserted saline lock: 20 gauge in left antecubital area, using aseptic technique. Blood em collected. 15:10 Initial lab(s) drawn, by me, sent to lab. First set of blood cultures drawn by me. em 15:20 EKG done, by ED staff, reviewed by Xu Lowry MD. dh3 16:07 Primary Nurse role handed off by Rory Almanzar LVN sv 16:07 Shraddha Weir RN is Primary Nurse. sv 16:15 Inserted saline lock: 20 gauge in right forearm, using aseptic technique. Flushed right sv forearm with 5 ml normal saline. 16:20 XRAY CXR (1 view) In Process Unspecified. EDMS 16:22 BIPAP Sent. sv 17:55 Jose Carpio MD is Hospitalizing Provider. rn 19:06 Report given to Courtney LOYOLA and Martha RN. sv 19:08 Primary Nurse role handed off by Shraddha Weir RN sv 19:34 Courtney Will RN is Primary Nurse. lp1 19:38 No provider procedures requiring assistance completed. Patient admitted, IV remains in lp1 place. 20:01 Urine collected: clean catch specimen, julieth colored, Amount Voided: 30mL. oe Administered Medications: 15:00 Drug: Xopenex (3) 1.25 mg Route: Inhalation; em 15:01 Drug: AtroVENT Aerosol 0.5 mg Route: Inhalation; em 15:10 Drug: SOLU-Medrol 125 mg Route: IVP; Site: left antecubital; kr2 16:00 Follow up: Response: No adverse reaction sv 16:15 Drug: NS 0.9% 500 ml Route: IV; Rate: bolus; Site: left antecubital; em 16:45 Follow up: Response: No adverse reaction; IV Status: Completed infusion; IV Intake: sv 500ml 16:18 Drug: Magnesium Sulfate 1 grams Route: IVPB; Infused Over: 1 hrs; Site: right forearm; sv 17:15 Follow up: Response: No adverse reaction; IV Status: Completed infusion; IV Intake: sv 100ml 16:22 Drug: Demerol - Meperidine 12.5 mg Route: IVP; Site: right forearm; sv 16:30 Follow up: Response: No adverse reaction sv Point of Care Testing: Blood Glucose: 21:03 Blood Glucose: 294 mg/dL; lp1 Ranges: Intake: 16:45 IV: 500ml; Total: 500ml. sv 17:15 IV: 100ml; Total: 600ml. sv Outcome: 17:56 Decision to Hospitalize by Provider. rn 20:10 critical lp1 20:10 Instructed on the need for admit. 20:44 Admitted to ICU accompanied by nurse, accompanied by tech, via stretcher, room 8, with lp1 oxygen, on monitor, with chart, Report called to MILLA Barrios 21:09 Patient left the ED. lp1 Signatures: Dispatcher [employer] EDGeorgia Virgen RN RN Shraddha Hernandez RN Ellis Gutierres RN Rory Garza, BUSINESS SERVICES MANAGER BUSINESS SERVICES MANAGER em Xu Lowry MD MD rn Martinez, Eric em1 Courtney Will RN RN lp1 Nicole Conroy RN RN hb Knox, Taylor, RN RN 2 Prashanth Zapien Jannette Shepherd formerly [facility] Rosalba Tong RN RN kr2 Dorcas Flynn sb2 Corrections: (The following items were deleted from the chart) 15:07 15:04 Presenting complaint: Patient states: Shortness of breath for the past 2 days. aj1 Denies fever, cough, congestion. Denies chest pain. States that his inhaler usually helps but today it isnt. Audible wheezes noted. aj1 18:31 17:05 BP 130 / 82; Pulse 84bpm; MonitorResp 30bpm; Pulse Ox 94% RA; sg sv
[2018-06-09] MEDS: METHYLPREDNISOLONE 40 MG INJ IV SCH ×2 (18:00→23:41)
[2018-06-09 20:27] LABS: Urine Blood NEGATIVE (NEG); Urine Glucose 2+ (NEG); Urine Protein NEGATIVE (NEG); Urine pH 5.5 (5.0-7.0)
[2018-06-09] MEDS: IPRATROPIUM BROM 0.5MG/2.5ML NEB SCH (21:41)
[2018-06-09] MEDS: ALBUTEROL 2.5 MG/3 ML NEB SOL NEB SCH (21:41)
[2018-06-09 21:44] VITALS: BMI 40.1
[2018-06-09] MEDS: ENOXAPARIN 40 MG/0.4 ML SQ SCH (22:32)
[2018-06-09] MEDS: INSULIN -REGULAR HUMAN 50 UNIT/0.5 ML ML SQ SCH (22:33)
[2018-06-09] MEDS ORDERED: Oxycodone HCl/Acetaminophen 1 TAB TAB PO ONE (23:08)
[2018-06-10] MEDS: ALBUTEROL 2.5 MG/3 ML NEB SOL NEB SCH ×5 (01:05→23:25)
[2018-06-10] MEDS: IPRATROPIUM BROM 0.5MG/2.5ML NEB SCH ×8 (01:05→23:26)
--- NOTE | 2018-06-10 02:35 | HP ---
Date of Admission: 06/09/2018 Chief Complaint: Shortness of breath. Code Status: Full. History Of Present Illness: The patient is a 62-year-old male with past medical history of restricti ve lung disease, diabetes, hypertension, sleep apnea, hyperlipidemia, anxiety disorder, who has had [facility] admissions for similar issues of shortness of breath. The patient was last admitted on April 29, 2018. The patient sees Dr. Ramsey as his can washer, saw him last week. The patient comes i n today with sudden onset of shortness of breath that has been worsening over the past few days. The patient states that his nebulizers were not helping him. He was very tachypneic. Denies any fevers , chills, ill contacts. No significant cough or sputum production. Did report some pleuritic chest pain with deep breathing. The patient came into the ER for further evaluation. Upon arrival, he was hypoxic around 90%. He was tachypneic in the 40s. BiPAP was placed and helped slightly. His O2 sa turations improved. His respiratory rate decreased to 22. Workup revealed a normal white count. AB G did not show any acidosis or CO2 retention. His procalcitonin was negative. EKG and troponin were also negative. His chest x-ray showed poor inspiratory effort. The patient was then referred for a dmission. When seen in the ER, he was awake, alert, oriented x3, in moderate respiratory distress. Past Medical History: Diabetes, hypertension, hyperlipidemia, anxiety disorder, depression, GERD, ob structive sleep apnea, is on home oxygen due to restrictive lung disease, 4 liters. 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 Allergies: IBUPROFEN, WHICH CAUSES HIVES AND RASH. Medications: List reviewed. Family History: Father has heart disease, diabetes. Mother has heart disease, hypertension, lung di sease, GI disease, diabetes, stroke, liver disease, kidney disease. Brother has heart disease, hyper tension, lung disease, diabetes, stroke, liver disease, kidney disease. He has 2 brothers. Sister h as heart disease and GI disease. Social History: Denies any tobacco use, alcohol use, or illicit drug use. Lives at home with his wi fe. He does need a cane at times for ambulation. Review of Systems: An 11-point system reviewed, negative except as per HPI. Physical Examination: Vital Signs: Blood pressure 145/96, pulse 93, respirations 36, temperature 98.3, O2 91% on room air. General: Awake, alert, oriented x3, some mild respiratory distress, obese elderly male, ill-appearin g. HEENT: Normocephalic, atraumatic. PERRLA. EOMI. Neck: Supple. No JVD. Trachea midline. CV: S1, S2. Regular rate and rhythm. Peripheral pulses present. Respiratory: Diminished breath sounds. Some mild wheezing. No stridor. The patient is tachypneic with use of accessory muscles. Gastrointestinal: Abdomen is soft, nontender, nondistended. Positive bowel sounds. No guarding or rigidity. Extremities: No clubbing, cyanosis. The patient has 1+ edema bilateral lower extremities. Neuro: Cranial nerves 2 through 12 intact grossly. No focal neurological deficit. Speech is normal . Strength is symmetric bilateral upper and lower extremities. Sensation intact to light touch. Skin: No rashes. Normal skin turgor. Psych: Mood is anxious. Affect is congruent with mood. Insight and judgment are fair. Laboratory Data: Sodium 144, potassium 3.5, chloride 110, CO2 27, BUN 20, creatinine 1, glucose 169, calcium 8.7. Troponin less than 0.02. BNP 135. Procalcitonin less than 0.05. ABG; pH 7.37, pCO2 41.4, pO2 71.3, bicarb 23.2. WBC 8.5, H and H 13.5/38.7, platelets 238. Chest x-ray shows shallow i nspiratory effort, significantly under-inflated lungs. Assessment: A 62-year-old male with: 1.Acute on chronic respiratory failure. The patient requiring BiPAP. Normally, he is on oxygen at home 4 liters likely secondary to exacerbation of his restrictive lung disease. We will continue wit h BiPAP. Dr. Ramsey has been consulted. 2.Restrictive lung disease. 3.Essential hypertension. 4.Obstructive sleep apnea. Continue CPAP at night. 5.Diabetes mellitus type 2, insulin dependent with hyperglycemia. We will continue sliding scale in sulin and resume home dose. Continue Accu-Cheks. 6.Mixed hyperlipidemia. Continue statin. 7.Generalized anxiety disorder. 8.Major depressive disorder. We will resume SSRI. 9.Gastroesophageal reflux disease without esophagitis. We will continue PPI. 10.Obesity. 11.Gastrointestinal and deep venous thrombosis prophylaxis with PPI and Lovenox. Plan: Admit the patient to Med-Surg, place as observation. We will continue to monitor closely. KAY Voice ID: [id number]
[2018-06-10 05:48] LABS: Absolute Lymphocytes (CBC) 1.1 K/uL (0.7-4.9); Absolute Monocytes 0.2 K/uL (0.1-1.3); Absolute Neutrophil 11.3 K/uL (1.8-8.0); Basophils % 0.2 % (0-1.3); Hematocrit 39.6 % (39.6-49.0); Lymphocytes % 8.9 % (15.3-44.8); MPV 8.2 fL (7.6-11.3); Monocytes % 1.3 % (3.3-12.3); RBC Red Blood Cell Count 4.49 M/uL (4.33-5.43)
[2018-06-10 05:49] LABS: BUN Blood Urea Nitrogen 16 mg/dL (7-18); Bicarbonate 23 mmol/L (21-32); Glucose Level 220 mg/dL (74-106); Magnesium 1.8 mg/dL (1.8-2.4); Potassium 3.7 mmol/L (3.5-5.1); Sodium Level 144 mmol/L (136-145)
[2018-06-10] MEDS: METHYLPREDNISOLONE 40 MG INJ IV SCH ×3 (06:43→17:32)
--- NOTE | 2018-06-10 07:20 | RAD REPORT ---
EXAM DESCRIPTION: RAD - Chest Single View - 06/10/2018 6:11 am CLINICAL HISTORY: Shortness of breath COMPARISON: June 09 TECHNIQUE: AP portable chest image was obtained 0551 hours . FINDINGS: Lung volumes are low. Right hemidiaphragm elevation again noted. Interstitial markings are prominent but not clearly different from comparison imaging. Heart and vasculature are normal. No me asurable pleural effusion and no pneumothorax. No gross bony abnormality seen. No acute aortic findin gs suspected. IMPRESSION: Interstitial markings remain prominent. No new or progressive cardiopulmonary finding.
--- NOTE | 2018-06-10 07:20 | RAD REPORT ---
EXAM DESCRIPTION: CT - Chest Angio - 06/10/2018 7:05 am CLINICAL HISTORY: Dyspnea, shortness of breath A preliminary written report was provided at the time of the study, and the report was reviewed prio r to final dictation. COMPARISON: Portable chest exam June 09, PE study April 29 TECHNIQUE: Dynamically enhanced axial 3 mm thick images of the chest were obtained during administra tion of 150 mL Isovue 370 IV contrast. Coronal and oblique reconstruction images were generated using MIP and reviewed. Exam utilizes a protocol for optimal evaluation of pulmonary arterial tree. All CT scans are performed using dose optimization technique as appropriate and may include automated exposure control or mA/KV adjustment according to patient size. FINDINGS: No pulmonary emboli identifiable. Peripheral branch assessment at each lung base has signi ficant limitation due to the amount of respiratory motion. Similar findings evident on the April 29 sanju[place] dy. No acute or significant aorta findings. No focal mass or consolidation of the lung parenchyma. Lung base atelectasis is present. No pleural t hickening or pleural effusion. No pneumothorax. No abnormal mediastinal or hilar masses or lymphadenopathy seen. No chest wall mass or abnormal axill jerri lymphadenopathy. IMPRESSION: No pulmonary emboli identified. Lung base peripheral branch assessment is limited due to respiratory motion. Lung base pulmonary arterial pattern is similar to April 29. Bilateral lung base atelectasis.
[2018-06-10] MEDS: INSULIN -REGULAR HUMAN 50 UNIT/0.5 ML ML SQ SCH ×4 (07:30→21:08)
[2018-06-10] MEDS ORDERED: MAGNESIUM SULFATE 1 gm IVPB 1 GM/100 ML BAG IV ONE (08:00)
[2018-06-10] MEDS ORDERED: POTASSIUM 25 MEQ EFFERV TAB PO ONE (08:00)
[2018-06-10] MEDS ORDERED: clonazePAM 1 MG TAB PO PRN (08:02)
[2018-06-10] MEDS ORDERED: HOME MED 1 EA UNK (Oxycodone Hcl/Acetaminophen [Oxycodone-Acetaminophen 10-325] 1 TAB) PO PRN (08:02)
[2018-06-10] MEDS: AMLODIPINE 5 MG TAB PO SCH (08:51)
[2018-06-10] MEDS: FENOFIBRATE 160 MG TAB PO SCH (08:51)
[2018-06-10] MEDS: GABAPENTIN 300 MG CAP PO SCH ×3 (08:52→21:05)
[2018-06-10] MEDS: PANTOPRAZOLE 40MG TABLET PO SCH (08:52)
[2018-06-10] MEDS: SPIRONOLACTONE 25 MG TABLET PO SCH ×2 (08:53→21:05)
[2018-06-10] MEDS ORDERED: HOME MED 1 EA UNK (Spironolactone [Spironolactone] 50 MG) PO SCH (09:00)
[2018-06-10] MEDS ORDERED: HOME MED 1 EA UNK (Lansoprazole [Prevacid] 30 MG) PO SCH (09:00)
[2018-06-10] MEDS: HOME MED 1 EA UNK (Budesonide/Formoterol Fumarate [Symbicort 160-4.5 Mcg Inhaler] 2 PUFF) IH SCH ×2 (09:00→21:00)
[2018-06-10] MEDS ORDERED: ENALAPRIL MALEATE 20 MG PO SCH (09:00)
[2018-06-10] MEDS ORDERED: HOME MED 1 EA UNK (Gabapentin [Gabapentin] 600 MG) PO SCH (09:00)
[2018-06-10 09:24] LABS: Blood Morphology Comment NOT SEEN (NOT SEEN); Platelet Estimate ADEQ
[2018-06-10] MEDS: ARIPiprazole 5 MG TAB PO SCH (10:10)
[2018-06-10] MEDS: ENALAPRIL 10 MG TAB PO SCH (10:11)
[2018-06-10] MEDS: OXYCODONE HCL 5 MG TAB PO PRN ×2 (10:56→21:06)
--- NOTE | 2018-06-10 11:31 | PN ---
Date of Progress Note: 06/10/2018 Subjective: The patient is seen and examined. Chart reviewed and case discussed with RN. The patient states he is doing significantly better. Shortness of breath has improved. Review of Systems: Negative except as above. Medications: List reviewed. Physical Examination: Vital Signs: Temperature 97.4, heart rate 78, blood pressure 138/91, respirations 20, O2 95% on 4 L via nasal cannula. General: Awake, alert, oriented x3. Some mild respiratory distress, morbidly obese, ill-appearing female. CV: S1, S2. Regular rate and rhythm. Peripheral pulses present. Respiratory: Diminished breath sounds. Mild wheezing. No stridor. Some rhonchi heard. Gastrointestinal: Abdomen is soft, nontender, nondistended. Positive bowel sounds. No guarding or rigidity. No palpable masses. Extremities: No clubbing, cyanosis. The patient does have peripheral edema. Neurologic: Nonfocal. Laboratory Data: Sodium 144, potassium 3.7, chloride 111, CO2 23, BUN 16, creatinine 0.8, glucose 220, calcium 8.7, magnesium 1.8. WBC 12.7, H and H 13.5 and 39.6, platelets 247, neutrophils 89%. Blood cultures pending. CT angio chest shows no pulmonary emboli identified. Lung base peripheral branch assessment is limited due to respiratory motion. Lung base, pulmonary arterial pattern similar to April 29, bilateral lung base atelectasis. Chest x-ray personally reviewed, shows interstitial markings remained prominent. No new or progressive cardiopulmonary finding. Assessment And Plan: A 62-year-old male with: 1. Acute on chronic respiratory failure, now off BiPAP, back on 4 L. Secondary to restrictive lung disease. Pulmonology consulted. 2. Restrictive lung disease, on 4 L of oxygen. We will continue breathing treatments. Wean off steroids. 3. Essential hypertension, stable. Resume home medications as appropriate. 4. Obstructive sleep apnea. We will continue CPAP at night. 5. Diabetes mellitus type 2, insulin dependent with hyperglycemia. We will continue sliding scale insulin and continue Accu-Cheks. 6. Mixed hyperlipidemia. We will continue statin. 7. Generalized anxiety disorder. 8. Major depressive disorder. Continue SSRI. 9. Morbid obesity, BMI 40.2. 10. Gastroesophageal reflux disease without esophagitis. We will continue PPI. 11. Chronic pain syndrome. We will continue narcotics. 12. Gastrointestinal and deep venous thrombosis prophylaxis with PPI and Lovenox. Plan: Step-down to regular floor. /SHERYL Voice ID: [id number] Report ID: [id number] MTDD
[2018-06-10] MEDS: ENOXAPARIN 40 MG/0.4 ML SQ SCH (17:30)
[2018-06-10] MEDS: TRAZODONE 50 MG TABLET PO SCH (21:06)
[2018-06-11] MEDS: METHYLPREDNISOLONE 40 MG INJ IV SCH ×2 (00:46→05:00)
[2018-06-11] MEDS: Oxycodone HCl/Acetaminophen 1 TAB TAB PO PRN ×2 (03:15→14:45)
[2018-06-11] MEDS: IPRATROPIUM BROM 0.5MG/2.5ML NEB SCH ×2 (03:35→07:21)
[2018-06-11] MEDS: ALBUTEROL 2.5 MG/3 ML NEB SOL NEB SCH (07:20)
[2018-06-11] MEDS: INSULIN -REGULAR HUMAN 50 UNIT/0.5 ML ML SQ SCH ×4 (07:30→20:44)
[2018-06-11 07:55] LABS: Magnesium 2.5 mg/dL (1.8-2.4); Potassium 4.4 mmol/L (3.5-5.1)
[2018-06-11] MEDS: HOME MED 1 EA UNK (Budesonide/Formoterol Fumarate [Symbicort 160-4.5 Mcg Inhaler] 2 PUFF) IH SCH ×2 (09:00→20:43)
[2018-06-11] MEDS: GABAPENTIN 300 MG CAP PO SCH ×3 (09:20→20:42)
[2018-06-11] MEDS: SPIRONOLACTONE 25 MG TABLET PO SCH ×2 (09:20→20:42)
[2018-06-11] MEDS: FENOFIBRATE 160 MG TAB PO SCH (09:21)
[2018-06-11] MEDS: AMLODIPINE 5 MG TAB PO SCH (09:21)
[2018-06-11] MEDS: ENALAPRIL 10 MG TAB PO SCH (09:21)
[2018-06-11] MEDS: PANTOPRAZOLE 40MG TABLET PO SCH (09:22)
[2018-06-11] MEDS: OXYCODONE HCL 5 MG TAB PO PRN ×2 (09:22→20:44)
[2018-06-11] MEDS: predniSONE 20 MG TAB PO SCH ×2 (09:22→20:42)
[2018-06-11] MEDS: ARIPiprazole 5 MG TAB PO SCH (09:27)
--- NOTE | 2018-06-11 14:36 | PN ---
Date of Progress Note: 06/11/2018 Subjective: The patient seen and examined. Chart reviewed and case discussed with RN and Dr. Griselda buitrago. The patient still having some shortness of breath and getting very dyspneic when he gets up to m ove around. Review of Systems: Negative except as above. Medications: List reviewed. Physical Examination: Vital Signs: Temperature 96.8, heart rate 72, blood pressure 140/91, respirations 18, O2 of 91% on 4 L via nasal cannula. General: Awake, alert, oriented x3, in some respiratory distress. Elderly male, obese, BMI 40, ill- appearing. CV: S1, S2. No murmurs. Peripheral pulses present. Respiratory: Diminished breath sounds. No wheezing. No stridor. Gastrointestinal: Abdomen is soft, nondistended, nontender. Positive bowel sounds. No guarding or rigidity. Extremities: No clubbing, cyanosis. Trace edema bilateral lower extremities. Neurologic: Nonfocal. Laboratory Data: Sodium 139, potassium 4.4, chloride 108, CO2 of 23, BUN 22, creatinine 0.9, glucose 310, calcium 8.9, magnesium 2.5. Chest x-ray from 06/10/2018 shows interstitial markings remained p rominent. No new or progressive finding. Assessment And Plan: A 62-year-old male with: 1.Mfkyt-nn-imtkpqg respiratory failure, off BiPAP, currently on 4 L, which is usual amount of oxygen at home. Spoke with Dr. Ramsey. The patient is a noncompliant. The patient needs CPAP, however, did not show up to his sleep study. 2.Restrictive lung disease, on 4 L of oxygen. Continue breathing treatments. We will change to q.6 p.r.n. for wean off his steroids, switch to p.o. 3.Essential hypertension, stable. 4.Obstructive sleep apnea. Continue CPAP here at night. The patient will need sleep study as an ou tpatient. He has been counseled. 5.Diabetes mellitus type 2, insulin dependent with hyperglycemia. We will continue sliding-scale in sulin and Accu-Cheks. 6.Mixed hyperlipidemia. Continue statin. 7.Generalized anxiety disorder. 8.Major depressive disorder, on selective serotonin reuptake inhibitor. 9.Morbid obesity, BMI of 40.2. 10.Gastroesophageal reflux disease without esophagitis. Continue proton-pump inhibitor. 11.Chronic pain syndrome, on chronic narcotics. 12.Gastrointestinal and deep venous thrombosis prophylaxis with proton-pump inhibitor and Lovenox. Plan: Continue to monitor closely, ambulate or check oxygen saturation after ambulation. /SHERYL Voice ID: [id number] Report ID: [id number]
[2018-06-11] MEDS: ENOXAPARIN 40 MG/0.4 ML SQ SCH (17:39)
[2018-06-11] MEDS: TRAZODONE 50 MG TABLET PO SCH (20:42)
[2018-06-11] MEDS: IPRATROPIUM BROM 0.5MG/2.5ML NEB PRN (22:00)
[2018-06-11] MEDS: ALBUTEROL 2.5 MG/3 ML NEB SOL NEB PRN (22:00)
[2018-06-12] MEDS: Oxycodone HCl/Acetaminophen 1 TAB TAB PO PRN ×3 (02:04→21:00)
[2018-06-12] MEDS: IPRATROPIUM BROM 0.5MG/2.5ML NEB PRN (02:10)
[2018-06-12 05:55] LABS: Absolute Lymphocytes (CBC) 1.8 K/uL (0.7-4.9); Absolute Monocytes 0.5 K/uL (0.1-1.3); Absolute Neutrophil 9.3 K/uL (1.8-8.0); Basophils % 0.5 % (0-1.3); Hematocrit 38.5 % (39.6-49.0); Lymphocytes % 15.6 % (15.3-44.8); MCH 30.8 pg (27.0-35.0); MPV 8.8 fL (7.6-11.3); Monocytes % 4.3 % (3.3-12.3); RBC Red Blood Cell Count 4.37 M/uL (4.33-5.43)
[2018-06-12 06:09] LABS: Potassium 4.3 mmol/L (3.5-5.1)
[2018-06-12] MEDS: OXYCODONE HCL 5 MG TAB PO PRN ×2 (06:28→14:12)
[2018-06-12] MEDS: FENOFIBRATE 160 MG TAB PO SCH (08:54)
[2018-06-12] MEDS: GABAPENTIN 300 MG CAP PO SCH ×3 (08:54→21:01)
[2018-06-12] MEDS: ENALAPRIL 10 MG TAB PO SCH (08:54)
[2018-06-12] MEDS: SPIRONOLACTONE 25 MG TABLET PO SCH ×2 (08:54→21:01)
[2018-06-12] MEDS: predniSONE 20 MG TAB PO SCH ×2 (08:54→21:01)
[2018-06-12] MEDS: AMLODIPINE 5 MG TAB PO SCH (08:55)
[2018-06-12] MEDS: PANTOPRAZOLE 40MG TABLET PO SCH (08:55)
[2018-06-12] MEDS: ARIPiprazole 5 MG TAB PO SCH (08:55)
[2018-06-12] MEDS: INSULIN -REGULAR HUMAN 50 UNIT/0.5 ML ML SQ SCH ×4 (08:56→20:58)
[2018-06-12] MEDS: HOME MED 1 EA UNK (Budesonide/Formoterol Fumarate [Symbicort 160-4.5 Mcg Inhaler] 2 PUFF) IH SCH ×2 (08:57→20:57)
--- NOTE | 2018-06-12 14:16 | P.PN ---
Subjective Date of Service: 06/12/18 doing better today, still has some SOB. On O2 Physical Examination - Vital Signs Temperature: 97.0 F Blood Pressure: 151/90 Pulse: 61 Respirations: 18 Pulse Ox (%): 93 - Physical Exam General: Alert, In no apparent distress HEENT: Atraumatic, PERRLA, EOMI Neck: Supple, JVD not distended Respiratory: Clear to auscultation bilaterally, Normal air movement Cardiovascular: Regular rate/rhythm, Normal S1 S2 Gastrointestinal: Normal bowel sounds, No tenderness Musculoskeletal: No tenderness Integumentary: No rashes Neurological: Normal speech, Normal tone, Normal affect Lymphatics: No axilla or inguinal lymphadenopathy - Studies Medications List Reviewed: Yes Assessment And Plan - Current Problems (Diagnosis) (1) Diabetes mellitus Onset Date: 06/11/18 Current Visit: Yes Status: Chronic Qualifiers: (2) HTN (hypertension) Onset Date: 06/11/18 Current Visit: Yes Status: Chronic Qualifiers: (3) Obesity Onset Date: 06/11/18 Current Visit: Yes Status: Chronic (4) Obstructive sleep apnea Onset Date: 06/11/18 Current Visit: Yes Status: Chronic (5) Restrictive lung disease Onset Date: 06/11/18 Current Visit: Yes Status: Chronic (6) Acute and chronic respiratory failure Onset Date: 12/21/17 Current Visit: No Status: Acute Qualifiers: (7) Acute exacerbation of chronic obstructive pulmonary disease (COPD) Onset Date: 02/28/17 Current Visit: No Status: Acute (8) Acute on chronic diastolic (congestive) heart failure Onset Date: 06/11/18 Current Visit: No Status: Acute (9) CAD (coronary artery disease) Onset Date: 05/08/17 Current Visit: No Status: Chronic Qualifiers: - Plan cont nebs cont O2 Steroids Insulin coverage may DC home tomrrow on Home O2
[2018-06-12] MEDS: ALBUTEROL 2.5 MG/3 ML NEB SOL NEB PRN (15:10)
[2018-06-12] MEDS: ENOXAPARIN 40 MG/0.4 ML SQ SCH (17:13)
[2018-06-12] MEDS: TRAZODONE 50 MG TABLET PO SCH (21:01)
[2018-06-12 22:19] VITALS: O2SAT 94
[2018-06-13] MEDS: ALBUTEROL 2.5 MG/3 ML NEB SOL NEB PRN (03:50)
[2018-06-13] MEDS: Oxycodone HCl/Acetaminophen 1 TAB TAB PO PRN ×2 (06:00→13:52)
[2018-06-13] MEDS: INSULIN -REGULAR HUMAN 50 UNIT/0.5 ML ML SQ SCH ×2 (07:58→12:10)
[2018-06-13] MEDS: PANTOPRAZOLE 40MG TABLET PO SCH (07:59)
[2018-06-13] MEDS: HOME MED 1 EA UNK (Budesonide/Formoterol Fumarate [Symbicort 160-4.5 Mcg Inhaler] 2 PUFF) IH SCH (09:00)
[2018-06-13] MEDS: SPIRONOLACTONE 25 MG TABLET PO SCH (09:25)
[2018-06-13] MEDS: ARIPiprazole 5 MG TAB PO SCH (09:25)
[2018-06-13] MEDS: FENOFIBRATE 160 MG TAB PO SCH (09:26)
[2018-06-13] MEDS: ENALAPRIL 10 MG TAB PO SCH (09:26)
[2018-06-13] MEDS: AMLODIPINE 5 MG TAB PO SCH (09:26)
[2018-06-13] MEDS: GABAPENTIN 300 MG CAP PO SCH ×2 (09:26→13:55)
[2018-06-13] MEDS: predniSONE 20 MG TAB PO SCH (09:27)
[2018-06-13 12:04] VITALS: BP 114/75; TEMP 97.2
--- NOTE | 2018-06-13 15:50 | P.DS ---
Admission Date: 06/09/18 Discharge Date: 06/13/18 Disposition: ROUTINE DISCHARGE Discharge Condition: GOOD - Problems (1) Acute and chronic respiratory failure Onset Date: 12/21/17 Current Visit: Yes Status: Acute Qualifiers: Respiratory failure complication: hypoxia (2) Diabetes mellitus Onset Date: 06/11/18 Current Visit: Yes Status: Chronic Qualifiers: Diabetes mellitus type: type 2 Diabetes mellitus complication status: without complication (3) HTN (hypertension) Onset Date: 06/11/18 Current Visit: Yes Status: Chronic Qualifiers: Hypertension type: essential hypertension (4) Obesity Onset Date: 06/11/18 Current Visit: Yes Status: Chronic Qualifiers: Obesity type: due to excess calories Obesity classification: adult class 3 (BMI >= 40) (5) Obstructive sleep apnea Onset Date: 06/11/18 Current Visit: Yes Status: Chronic (6) Restrictive lung disease Onset Date: 06/11/18 Current Visit: Yes Status: Chronic (7) Acute exacerbation of chronic obstructive pulmonary disease (COPD) Onset Date: 02/28/17 Current Visit: No Status: Acute (8) Acute on chronic diastolic (congestive) heart failure Onset Date: 06/11/18 Current Visit: No Status: Acute (9) CAD (coronary artery disease) Onset Date: 05/08/17 Current Visit: No Status: Chronic Qualifiers: Coronary Disease-Associated Artery/Lesion type: [place] artery [place] vs. transplanted heart: [place] heart Associated angina: without angina Qualified Code(s): I25.10 - Atherosclerotic heart disease of [place] coronary artery without angina pectoris Brief History of Present Illness: The patient is a 62-year-old male with past medical history of restrictive lung disease, diabetes, hypertension, sleep apnea, hyperlipidemia, anxiety disorder, who has had multiple admissions for similar issues of shortness of breath. The patient was last admitted on April 29, 2018. The patient sees Dr. Ramsey as his manager java, saw him last week. The patient comes in today with sudden onset of shortness of breath that has been worsening over the past few days. The patient states that his nebulizers were not helping him. He was very tachypneic. Denies any fevers, chills, ill contacts. No significant cough or sputum production. Did report some pleuritic chest pain with deep breathing. The patient came into the ER for further evaluation. Upon arrival, he was hypoxic around 90%. He was tachypneic in the 40s. BiPAP was placed and helped slightly. His O2 saturations improved. His respiratory rate decreased to 22. Workup revealed a normal white count. ABG did not show any acidosis or CO2 retention. His procalcitonin was negative. EKG and troponin were also negative. His chest x-ray showed poor inspiratory effort. The patient was then referred for admission. When seen in the ER, he was awake, alert, oriented x3, in moderate respiratory distress. Hospital Course: He was placed on CPAP. He was started on nebs and steroids. ECHO was unremarkable. He feels much better today. He is discharged in stable condition. Vital Signs/Physical Exam: Temp Pulse Resp BP Pulse Ox 97.2 F 67 17 114/75 93 06/13/18 12:00 06/13/18 12:00 06/13/18 12:00 06/13/18 12:00 06/13/18 12:00 General: Alert, In no apparent distress HEENT: Atraumatic, PERRLA, EOMI Neck: Supple, JVD not distended Respiratory: Clear to auscultation bilaterally, Normal air movement Cardiovascular: Regular rate/rhythm, Normal S1 S2 Gastrointestinal: Normal bowel sounds, No tenderness Musculoskeletal: No tenderness Integumentary: No rashes Neurological: Normal speech, Normal tone, Normal affect Lymphatics: No axilla or inguinal lymphadenopathy Laboratory Data at Discharge: WBC 11.7 K/uL (4.3-10.9) H 06/12/18 05:21 Hgb 13.5 g/dL (13.6-17.9) L 06/12/18 05:21 Hct 38.5 % (39.6-49.0) L 06/12/18 05:21 Plt Count 243 K/uL (152-406) 06/12/18 05:21 Sodium 139 mmol/L (136-145) 06/12/18 05:21 Potassium 4.3 mmol/L (3.5-5.1) 06/12/18 05:21 BUN 23 mg/dL (7-18) H 06/12/18 05:21 Creatinine 0.90 mg/dL (0.55-1.3) 06/12/18 05:21 Glucose 278 mg/dL (74-106) H 06/12/18 05:21 Magnesium 2.5 mg/dL (1.8-2.4) H D 06/11/18 07:25 Home Medications: Albuterol Neb [Proventil 0.083% Neb Soln] 2.5 mg IH QIDP PRN 04/29/18 Fenofibrate 160 mg PO DAILY 04/29/18 Oxycodone HCl/Acetaminophen [Oxycodone-Acetaminophen 10-325] 1 tab PO QIDP PRN 04/29/18 Spironolactone 50 mg PO BID 04/29/18 Trazodone [Desyrel*] 50 mg PO BEDTIME 04/29/18 clonazePAM [Klonopin] 1 mg PO QIDP PRN 04/29/18 ARIPiprazole [Abilify*] 5 mg PO DAILY 06/09/18 Amlodipine [Norvasc*] 5 mg PO DAILY 06/09/18 Budesonide/Formoterol Fumarate [Symbicort 160-4.5 Mcg Inhaler] 2 puff IH BID 09/16 Enalapril Maleate [Vasotec] 20 mg PO DAILY 06/09/18 Gabapentin 600 mg PO TID 06/09/18 Lansoprazole [Prevacid] 30 mg PO DAILY 06/09/18 Metformin HCl 1,000 mg PO BID 06/09/18 Proair Hfa 90mcg/Inh 2 puff IH QIDP PRN 06/09/18 Ipratropium Neb [Atrovent*] 0.5 mg NEB Q4HP PRN #30 amp 06/13/18 Oxycodone HCl [Oxyir (Oxycodone HCl Imr)*] 5 mg PO QIDP PRN tab 06/13/18 Oxycodone HCl/Acetaminophen [Percocet 5/325 Tab*] 1 tab PO QIDP PRN tab predniSONE [Prednisone*] 20 mg PO BID #20 tab 06/13/18 New Medications: Ipratropium Neb [Atrovent*] 0.5 mg NEB Q4HP PRN #30 amp PRN Reason: Shortness Of Breath predniSONE [Prednisone*] 20 mg PO BID #20 tab Diet: Regular Activity: Ad laureen Time spent managing pt's care (in minutes): 35
== END 2018-06-13 16:52 | disposition home or self-care (01) | DRG 189 ==
LOC: ER 14:40 → ERHOLD 17:58 → 3RD-ICU 20:44 → 4TH 06-10 12:00
PROVIDERS: ADMIT Family Medicine; ATTEND Internal Medicine Hematology & Oncology
PROC: 5A09357 Assistance with Respiratory Ventilation, Less than 24 Consecutive Hours, Continuous Positive Airway Pressure (ICD-10-PCS; principal; 2018-06-09)
DX: J96.21 Acute and chronic respiratory failure with hypoxia (principal); Z68.41 Body mass index [BMI] 40.0-44.9, adult; J44.1 Chronic obstructive pulmonary disease with (acute) exacerbation; J98.4 Other disorders of lung; G47.33 Obstructive sleep apnea (adult) (pediatric); E11.65 Type 2 diabetes mellitus with hyperglycemia; E78.2 Mixed hyperlipidemia; F41.1 Generalized anxiety disorder; F32.9 Major depressive disorder, single episode, unspecified; I10 Essential (primary) hypertension; K21.9 Gastro-esophageal reflux disease without esophagitis; I25.10 Atherosclerotic heart disease of native coronary artery without angina pectoris; G89.4 Chronic pain syndrome; E66.09 Other obesity due to excess calories; Z79.4 Long term (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 of insulin; Z99.81 Dependence on supplemental oxygen
CPT/HCPCS: 36415; 71045; 71275; 80048; 81003; 82805; 82962; 83735; 83880; 84145; 84484; 85025; 87040; 93005; 94640; 94660; 94760; 95811; 97163; 99285; J1650; J2175; J2920; J2930; J3475; J7512; Q9967

== ENCOUNTER 2018-07-03 15:01 | Observation (INO) | payer MEDICARE, SELFPAY ==
--- OUTSIDE RECORDS SUMMARY | 2018-07-03 15:08 | XMS REPORT | Clinical Summary ---
:1955 Author Organization [facility] Address [address] [place] [address] Care Team Providers Name Role Phone Bebeto [...] Encounters Date Type Specialty Care Team Description 06/14/2018 Documentation Endocrinology Susanna Laboy MA 05/22/2018 Orders Only Endocrinology Susanna Laboy MA 05/17/2018 Documentation Endocrinology Susanna Laboy, LUIS MIGUEL 03/22/2018 Documentation Endocrinology Susanna Laboy, LUIS MIGUEL 03/22/2018 Orders Only Endocrinology Susanna Laboy, LUIS MIGUEL 03/20/2018 Office Visit Endocrinology Kimi Jack, Uncontrolled type 2 diabetes mellitus with complication, unspecified longterm insulin use status (Primary Dx); Hyperlipidemia, unspecified hyperlipidemia type 03/20/2018 Ancillary Procedure Kimi Jack, 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, with long-term current use of insulin; Osteopenia, unspecified location 03/19/2018 Telephone Endocrinology Felicia Denton 03/06/2018 Orders Only Endocrinology Susanna Laboy, [...] Osteopenia, unspecified location 08/14/2017 Orders Only Endocrinology Paulina Type 2 diabetes LUIS MIGUEL [place] mellitus with complication, with long-term current use of insulin 08/11/2017 Office Visit Endocrinology Alexander Mckeon 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, with long-term current use of insulin (Primary Dx); MD Madalyn Type 2 diabetes mellitus with complication, with long-term current use of insulin; Benign essential hypertension; Mixed hyperlipidemia; Coronary artery disease involving the [place] heart with angina pectoris, unspecified vessel or lesion type 07/19/2017 Orders Only Endocrinology Susanna Laboy, Benign essential MA hypertension after 07/02/2017 Family History Medical History Relation Name Comments [...] 36.2 C (97.1 F) 12/01/2017 12:05 PM [employer] Respiratory Rate 95 08/11/2017 9:18 AM CDT Oxygen Saturation 100% 03/20/2018 10:20 AM CDT Inhaled Oxygen Concentration - - Weight 113 kg (250 lb) 03/20/2018 10:20 AM CDT Height 170.2 cm (5' 7") 03/20/2018 10:20 AM CDT Body Mass Index 39.16 03/20/2018 10:20 AM CDT Plan of Treatment Date Type Specialty Care Team Description 07/25/2018 Office Visit Endocrinology Kimi Jack MD [address] [facility] [address] [place] [id number] Health Maintenance Due Date Last Done Comments COLON CANCER SCREENING 2003 SHINGRIX VACCINE (#1) 2003 ZOSTER VACCINE 2013 DIABETIC FOOT EXAM 10/10/2017 10/10/2016, 10/10/2016, 07/18/2016 URINE MICROALBUMIN 01/07/2018 01/07/2017, 01/07/2017, 11/26/2015 INFLUENZA VACCINE 05/30/2018 07/27/2017, 07/13/2016 DIABETIC RETINAL EYE EXAM 03/20/2020 03/20/2018, [...] Results for this HEMOGLOBIN (HGB A1C) PM [employer] diabetes mellitus procedure are in with other the results circulatory section. complication, with long-term current use of insulin POC GLUCOSE Routine 12/01/2017 12:18 Uncontrolled type 2 Results for this PM [employer] diabetes mellitus procedure are in with other [...] with long-term current use of insulin after 07/02/2017 Results POC glycosylated hemoglobin (Hb A1C) (03/20/2018 10:34 AM)Only the most recent of3 resultswithin the time period is included. POC Hemoglobin A1C 8.6 % Specimen Blood POC glucose (03/20/2018 10:34 AM)Only the most recent of3 resultswithin the time period is included. POC glucose 136Comment: non fasting 65 - 100 Specimen Blood Bone Density (03/20/2018 10:09 AM) Narrative Performed At [facility] [address] [facility] [place] [address] Bone Density Report Name: Garrison Burnett Sex: Male Age: 62 Ethnicity: White Height: 64.0 in Referring Provider: KIMI JACK Date of : 1955 Weight: 249.8lb Indication: History of glucocorticoids Accession number: [id number] Bone Density: Exam date 03/20/2018 Region BMD [...] indication. Reported by: Ellis Johnson MD, MAGALYS, KAITLYNN, FACP, CCD on 03/22/2018 7:20:00 AM. Performing Organization Address [facility]/State[facility] Phone Number [facility] [address] [place] [address] after 07/02/2017 Insurance Payer Benefit Plan / Group Subscriber ID Type Phone Address [facility] MEDICARE AARP MEDICARE COMPLETE [facility] xxxxxxxxx O
[2018-07-03] MEDS ORDERED: METHYLPREDNISOLONE 125 MG INJ ONE (15:57)
[2018-07-03] MEDS ORDERED: ALBUTEROL 2.5 MG/3 ML NEB SOL ONE (15:57)
[2018-07-03] MEDS ORDERED: IPRATROPIUM BROM 0.5MG/2.5ML ONE (15:57)
[2018-07-03 16:18] LABS: Protime INR 1.04
[2018-07-03 16:24] LABS: Absolute Lymphocytes (CBC) 2.1 K/uL (0.7-4.9); Absolute Monocytes 0.4 K/uL (0.1-1.3); Absolute Neutrophil 4.7 K/uL (1.8-8.0); Basophils % 0.6 % (0-1.3); Eosinophils % 1.4 % (0-4.4); Hematocrit 39.2 % (39.6-49.0); Lymphocytes % 28.4 % (15.3-44.8); MCH 30.9 pg (27.0-35.0); MCV 88.8 fL (80-100); MPV 8.2 fL (7.6-11.3); Monocytes % 5.3 % (3.3-12.3); RBC Red Blood Cell Count 4.41 M/uL (4.33-5.43)
--- NOTE | 2018-07-03 16:26 | RAD REPORT ---
EXAM DESCRIPTION: RAD - Chest Single View - 07/03/2018 4:18 pm CLINICAL HISTORY: DYSPNEA Chest pain. COMPARISON: Chest Single View dated 06/10/2018; Chest Single View dated 06/09/2018; Chest Single View dated 04/28/2018; Chest Pa And Lat (2 Views) dated 03/30/2018 FINDINGS: Portable technique limits examination quality. The lungs are underinflated resulting in vascular crowding. Mildly elevated right hemidiaphragm is se en. The heart is normal in size. No displaced fractures. IMPRESSION: Underinflated lungs.
[2018-07-03 16:32] LABS: ALT/SGPT 26 U/L (12-78); AST/SGOT 18 U/L (15-37); Albumin 3.3 g/dL (3.4-5.0); Alkaline Phosphatase 84 U/L (45-117); BUN Blood Urea Nitrogen 17 mg/dL (7-18); Bicarbonate 28 mmol/L (21-32); Bilirubin Direct 0.1 mg/dL (0-0.2); Bilirubin Total 0.4 mg/dL (0.2-1.0); Glucose Level 202 mg/dL (74-106); Magnesium 1.7 mg/dL (1.8-2.4); NT PRO-BNP 55 pg/mL (<125); Potassium 3.7 mmol/L (3.5-5.1); Protein, Total 6.9 g/dL (6.4-8.2); Sodium Level 141 mmol/L (136-145); Troponin (Emerg Dept Use Only) < 0.02 ng/mL (0.0-0.045)
[2018-07-03] MEDS ORDERED: FENTANYL CITR 100 MCG/2 ML ONE (16:37)
--- NOTE | 2018-07-03 16:44 | ER ---
Nurse's Notes [facility] Name: Asim Burnett Age: 62 yrs Sex: Male : 1955 Arrival Date: 07/03/2018 Time: 15:03 Bed 5 Private MD: Bebeto Jaffe H Diagnosis: Chronic obstructive pulmonary disease with (acute) exacerbation Presentation: 07/03 15:12 Presenting complaint: Mother states: " He has been feel;ing SOB for a few days but ph today has been worse." Pt reports SOB at rest, "mild" chest pain and back pain. Denies fever, N/V, pt tachypneic in triage w/ shallow respirations , spo2 90% RA. Transition of care: patient was not received from another setting of care. Onset of symptoms was July 03, 2018. Risk Assessment: Do you want to hurt yourself or someone else? Patient reports no desire to harm self or others. Initial Sepsis Screen: Does the patient meet any 2 criteria? No. Patient's initial sepsis screen is negative. Care prior to arrival: None. 15:12 Method Of Arrival: Wheelchair ph 15:12 Acuity: ORACIO 2 ph 19:15 Initial Sepsis Screen: Does the patient have a suspected source of infection? No. bp Patient's initial sepsis screen is negative. Triage Assessment: 19:15 Respiratory: Reports shortness of breath Onset: The symptoms/episode began/occurred bp couple of days, the patient has severe shortness of breath. Historical: - Allergies: 15:16 Ibuprofen; ph - Home Meds: 17:40 Abilify 5 mg Oral tab 1 tab once daily [Active]; Albuterol Inhl [Active]; amlodipine 5 hb mg tab 1 tab once daily [Active]; clonazepam 1 mg Oral tab 1 tab QID PRN [Active]; enalapril maleate 20 mg Oral tab 1 tab once daily [Active]; fenofibrate 160 mg Oral tab 1 tab once daily [Active]; Humalog 100 unit/mL Sub-Q soln 24 unit three times a day [Active]; lansoprazole 30 mg Oral cpDR 1 cap once daily [Active]; metformin 1,000 mg Oral TG24 1 tab 2 times per day [Active]; oxycodone-acetaminophen 10-325 mg Oral tab 1 tab twice a day [Active]; spironolactone 25 mg Oral tab 1 tab once daily [Active]; symbicort [Active]; Toujeo SoloStar 300 unit/mL (1.5 mL) subcutaneous inpn 50 unit nightly [Active]; trazodone 50 mg Oral tab 1 tab nightly [Active]; - PMHx: 15:16 Anxiety; Depression; Diabetes - IDDM; High Cholesterol; Hypertension; ph 17:40 COPD; hb - Immunization history:: Adult Immunizations. - Social history:: Smoking status: Patient/guardian denies using tobacco. - Ebola Screening: : No symptoms or risks identified at this time. Screenin:23 Abuse screen: Denies threats or abuse. Denies injuries from another. Nutritional hb screening: No deficits noted. Tuberculosis screening: No symptoms or risk factors identified. Fall Risk Total Hodges Fall Scale indicates Low Risk Score (25-44 pts). Fall prevention measures have been instituted. Side Rails Up X 2 Frequent Obs/Assesments occuring Family Present and informed to notify staff if they need to leave bedside As available Patient and Family Educated on Fall Prevention Program and strategies. Assessment: 15:30 General: Appears distressed, Behavior is cooperative. Pain: Pain currently is 6 out of hb 10 on a pain scale. Neuro: Level of Consciousness is awake, alert, obeys commands, Oriented to person, place, time, situation. Cardiovascular: Heart tones S1 S2 present Capillary refill < 3 seconds Patient's skin is warm and dry. Rhythm is regular. Respiratory: Airway is patent Trachea midline Respiratory effort is labored, Grunting Breath sounds are diminished bilaterally. GI: No signs and/or symptoms were reported involving the gastrointestinal system. : No signs and/or symptoms were reported regarding the genitourinary system. EENT: No signs and/or symptoms were reported regarding the EENT system. Derm: No signs and/or symptoms reported regarding the dermatologic system. Skin is intact, is healthy with good turgor. Musculoskeletal: No signs and/or symptoms reported regarding the musculoskeletal system. 16:30 Reassessment: Pt c/o chest pain and low back pain /10. KARISHMA Mendoza notified. Fentanyl hb administered as ordered. VSS. 16:46 Reassessment: RT at bedside for BG, BIPAP 12/6, R 12, 25% FiO2. hb 17:37 Reassessment: Patient appears in no apparent distress at this time. BiPAP continues. Pt hb resting comfortably with eyes closed. 17:56 Reassessment: Attempted to call report to floor, receiving nurse unavailable at this hb time per unit sec. 18:48 Reassessment: Patient appears in no apparent distress at this time. No changes from hb previously documented assessment. Patient and/or family updated on plan of care and expected duration. Pain level reassessed. Patient is alert, oriented x 3, equal unlabored respirations, skin warm/dry/pink. 19:18 Reassessment: RECD REPORT FROM NICOLE LOYOLA. 62YO HM P/W SOB. ADMIT IN PROCESS, VS STABLE.bp 20:00 Reassessment: room assigned in 221, called med-surg maria at extension [id number] and report bp given to MILLA Perez for continuity of care. 20:15 Reassessment: Patient left ED for admission vitally stable to room 221 escorted by ED bp tech and respiratory therapist on oxygen therapy with a venturi mask during admission transport. Vital Signs: 15:14 BP 131 / 94; Pulse 94; Resp 42; Temp 97.2(TE); Pulse Ox 90% on R/A; Weight 113.4 kg; ph 16:38 BP 123 / 75; Pulse 91; Resp 30; Pulse Ox 95% on 25% BiPAP; hb 17:39 BP 108 / 73; Pulse 90; Resp 26; Pulse Ox 91% on 25% BiPAP; hb 18:48 BP 128 / 89; Pulse 88; Resp 15; Pulse Ox 98% on 25% BiPAP; hb 19:30 BP 121 / 77; Pulse 87; Resp 21; Temp 98.1(TE); Pulse Ox 95% ; cc3 19:30 BiPap FiO2 25% cc3 ED Course: 15:03 Patient arrived in ED. rg4 15:03 Bebeto Jaffe DO is Private Physician. rg4 15:14 Triage completed. ph 15:16 Arm band placed on. ph 15:17 [facility]. jr8 15:17 Heladio Veras MD is Attending Physician. jr8 15:25 Patient placed in an exam room, on oxygen, on pulse oximetry. ph 15:57 EKG done, by oracle technical developer. reviewed by Reji SCHWARZ. sm3 16:04 Nicole Conroy, MILLA is Primary Nurse. hb 16:17 X-ray completed. Portable x-ray completed in exam room. Patient tolerated procedure az well. 16:18 XRAY Chest (1 view) In Process Unspecified. EDMS 16:35 Inserted saline lock: 22 gauge in left antecubital area, using aseptic technique. Blood em1 collected. 16:42 Hansa Sahu MD is Hospitalizing Provider. jr8 18:38 Inserted saline lock: 22 gauge in left hand, using aseptic technique. Blood collected. patient dc'd own IV by accident. bleeding controled. Catheter intact. 19:15 Patient has correct armband on for positive identification. Bed in low position. Call bp light in reach. Side rails up X2. cafeteria monitor on. Pulse ox on. NIBP on. 20:00 No provider procedures requiring assistance completed. Patient admitted, IV remains in bp place. Administered Medications: 15:55 Drug: SOLU-Medrol 125 mg Route: IVP; Site: right antecubital; hb 16:55 Follow up: Response: No adverse reaction sv 15:55 Drug: Albuterol - atroVENT (3:1) (2.5 mg - 0.5 mg) 3 ml Route: Nebulizer; hb 16:55 Follow up: Response: No adverse reaction sv 16:36 Drug: fentaNYL (PF) 50 mcg Route: IVP; Site: right antecubital; hb 16:55 Follow up: Response: No adverse reaction sv 16:36 Drug: Aspirin Chewable Tablet 324 mg Route: PO; hb 16:55 Follow up: Response: No adverse reaction sv 16:54 Drug: Magnesium Sulfate 1 grams Route: IVPB; Infused Over: 1 hrs; Site: left sv antecubital; Outcome: 16:43 Decision to Hospitalize by Provider. jr8 20:00 Admitted to Med/surg accompanied by tech, via stretcher, room 221, with oxygen, Other bp with respiratory therapist Report called to MILLA Perez 20:00 Condition: stable 20:00 Instructed on the need for admit. 20:24 Patient left the ED. bp Signatures: Dispatcher [employer] EDShraddha Urbina RN RN sv Martinez, Eric em1 Bettye Ayala RN RN ss Roszak, Josh, PA PA jr8 Marley Almeida, RN RN ph Nicole Conroy RN RN hb Carla Naranjo rg4 Bear Anthony RN RN bp Maria Fernanda Gallegos 3 Ramona Motley cc3 Mana Flores il Corrections: (The following items were deleted from the chart) 15:24 15:14 BP 131 / 94; Pulse 94bpm; Resp 32bpm; Pulse Ox 90% RA; Temp 97.2F Temporal; 113.4 ph kg; ph 15:25 15:12 Acuity: ORACIO 3 ph ph 17:53 16:46 Reassessment: RT at bedside for BG, BIPAP 12/6, R 25, 25% FiO2 hb hb 18:49 16:38 BP 123 / 75; Pulse 91bpm; Resp 30bpm; Pulse Ox 95%; sv hb 18:49 17:39 BP 108 / 73; Pulse 90bpm; Resp 26bpm; Pulse Ox 91% BiPAP; sv hb
--- NOTE | 2018-07-03 16:44 | EDPHYS ---
Physician Documentation [facility] Name: Asim Burnett Age: 62 yrs Sex: Male : 1955 Arrival Date: 07/03/2018 Time: 15:03 Bed 5 Private MD: Bebeto Jaffe H ED Physician Heladio Veras HPI: 07/03 15:54 This 62 yrs old Male presents to ER via Wheelchair with complaints of jr8 Shortness Of Breath. 15:54 The patient has shortness of breath at rest. Onset: The symptoms/episode began/occurred jr8 gradually, 2 day(s) ago. Duration: The symptoms are continuous. The patient's shortness of breath is aggravated by talking, walking. Associated signs and symptoms: Pertinent positives: chest pain, non-productive cough. Severity of symptoms: At their worst the symptoms were moderate in the emergency department the symptoms are unchanged. The patient has experienced similar episodes in the past, a few times. The patient has been recently seen by a physician:. Historical: - Allergies: 15:16 Ibuprofen; ph - Home Meds: 17:40 Abilify 5 mg Oral tab 1 tab once daily [Active]; Albuterol Inhl [Active]; amlodipine 5 hb mg tab 1 tab once daily [Active]; clonazepam 1 mg Oral tab 1 tab QID PRN [Active]; enalapril maleate 20 mg Oral tab 1 tab once daily [Active]; fenofibrate 160 mg Oral tab 1 tab once daily [Active]; Humalog 100 unit/mL Sub-Q soln 24 unit three times a day [Active]; lansoprazole 30 mg Oral cpDR 1 cap once daily [Active]; metformin 1,000 mg Oral TG24 1 tab 2 times per day [Active]; oxycodone-acetaminophen 10-325 mg Oral tab 1 tab twice a day [Active]; spironolactone 25 mg Oral tab 1 tab once daily [Active]; symbicort [Active]; Toujeo SoloStar 300 unit/mL (1.5 mL) subcutaneous inpn 50 unit nightly [Active]; trazodone 50 mg Oral tab 1 tab nightly [Active]; - PMHx: 15:16 Anxiety; Depression; Diabetes - IDDM; High Cholesterol; Hypertension; ph 17:40 COPD; hb - Immunization history:: Adult Immunizations. - Social history:: Smoking status: Patient/guardian denies using tobacco. - Ebola Screening: : No symptoms or risks identified at this time. ROS: 15:54 Eyes: Negative for injury, pain, redness, and discharge, ENT: Negative for injury, jr8 pain, and discharge, Neck: Negative for injury, pain, and swelling, Abdomen/GI: Negative for abdominal pain, nausea, vomiting, diarrhea, and constipation, Back: Negative for injury and pain, MS/Extremity: Negative for injury and deformity, Skin: Negative for injury, rash, and discoloration, Neuro: Negative for headache, weakness, numbness, tingling, and seizure. 15:54 Cardiovascular: Positive for chest pain, Negative for edema, orthopnea, palpitations, paroxysmal nocturnal dyspnea. 15:54 Respiratory: Positive for cough, dyspnea on exertion, shortness of breath, wheezing. Exam: 15:54 Eyes: Pupils equal round and reactive to light, extra-ocular motions intact. Lids and jr8 lashes normal. Conjunctiva and sclera are non-icteric and not injected. Cornea within normal limits. Periorbital areas with no swelling, redness, or edema. ENT: Nares patent. No nasal discharge, no septal abnormalities noted. Tympanic membranes are normal and external auditory canals are clear. Oropharynx with no redness, swelling, or masses, exudates, or evidence of obstruction, uvula midline. Mucous membranes moist. Neck: Trachea midline, no thyromegaly or masses palpated, and no cervical lymphadenopathy. Supple, full range of motion without nuchal rigidity, or vertebral point tenderness. No Meningismus. Cardiovascular: Regular rate and rhythm with a normal S1 and S2. No gallops, murmurs, or rubs. Normal PMI, no JVD. No pulse deficits. Abdomen/GI: Soft, non-tender, with normal bowel sounds. No distension or tympany. No guarding or rebound. No evidence of tenderness throughout. Back: No spinal tenderness. No costovertebral tenderness. Full range of motion. Skin: Warm, dry with normal turgor. Normal color with no rashes, no lesions, and no evidence of cellulitis. MS/ Extremity: Pulses equal, no cyanosis. Neurovascular intact. Full, normal range of motion. Neuro: Awake and alert, GCS 15, oriented to person, place, time, and situation. Cranial nerves II-XII grossly intact. Motor strength 5/5 in all extremities. Sensory grossly intact. Cerebellar exam normal. Normal gait. 15:54 ECG was reviewed by the Attending Physician. 15:54 Respiratory: mild respiratory distress is noted, Respirations: tachypnea, Breath sounds: wheezing: expiratory that is mild, is heard diffusely. Vital Signs: 15:14 BP 131 / 94; Pulse 94; Resp 42; Temp 97.2(TE); Pulse Ox 90% on R/A; Weight 113.4 kg; ph 16:38 BP 123 / 75; Pulse 91; Resp 30; Pulse Ox 95% on 25% BiPAP; hb 17:39 BP 108 / 73; Pulse 90; Resp 26; Pulse Ox 91% on 25% BiPAP; hb 18:48 BP 128 / 89; Pulse 88; Resp 15; Pulse Ox 98% on 25% BiPAP; hb 19:30 BP 121 / 77; Pulse 87; Resp 21; Temp 98.1(TE); Pulse Ox 95% ; cc3 19:30 BiPap FiO2 25% cc3 MDM: 15:17 Patient medically screened. [facility] 16:41 Data reviewed: vital signs, nurses notes, lab test result(s), EKG, radiologic studies, jr8 plain films, and as a result, I will admit patient. Data interpreted: Pulse oximetry: on room air is 90 %. Interpretation: hypoxia. Counseling: I had a detailed discussion with the patient and/or guardian regarding: the historical points, exam findings, and any diagnostic results supporting the discharge/admit diagnosis, lab results, radiology results, the need for further work-up and treatment in the hospital. Response to treatment: the patient's symptoms have mildly improved after treatment. 07/03 15:45 Order name: Basic Metabolic Panel; Complete Time: 16:39 07/03 15:45 Order name: CBC with Diff; Complete Time: 16:39 07/03 15:45 Order name: LFT's; Complete Time: 16:39 07/03 15:45 Order name: Magnesium; Complete Time: 16:39 07/03 15:45 Order name: NT PRO-BNP; Complete Time: 16:39 07/03 15:45 Order name: PT-INR; Complete Time: 16:39 07/03 15:45 Order name: Troponin (emerg Dept Use Only); Complete Time: 16:39 07/03 15:45 Order name: XRAY Chest (1 view); Complete Time: 16:29 07/03 17:04 Order name: ABG; Complete Time: 17:43 ss 07/03 17:04 Order name: BIPAP ss 07/03 15:45 Order name: EKG; Complete Time: 15:56 07/03 15:45 Order name: Cardiac monitoring; Complete Time: 16:08 07/03 15:45 Order name: EKG - Nurse/Tech; Complete Time: 16:08 07/03 15:45 Order name: IV Saline Lock; Complete Time: 16:08 07/03 15:45 Order name: Labs collected and sent; Complete Time: 16:08 07/03 15:45 Order name: O2 Per Protocol; Complete Time: 16:08 07/03 15:45 Order name: O2 Sat Monitoring; Complete Time: 16:11 jr8 EC:54 Rate is 92 beats/min. Rhythm is regular, Normal Sinus Rhythm. QRS [place] is Normal. [place] jr8 interval is normal at 140 msec. QRS interval is normal at 78 msec. No Q waves. T waves are Normal. No ST changes noted. Clinical impression: Normal ECG. Interpreted by me. Reviewed by me. Administered Medications: 15:55 Drug: SOLU-Medrol 125 mg Route: IVP; Site: right antecubital; hb 16:55 Follow up: Response: No adverse reaction sv 15:55 Drug: Albuterol - atroVENT (3:1) (2.5 mg - 0.5 mg) 3 ml Route: Nebulizer; hb 16:55 Follow up: Response: No adverse reaction sv 16:36 Drug: fentaNYL (PF) 50 mcg Route: IVP; Site: right antecubital; hb 16:55 Follow up: Response: No adverse reaction sv 16:36 Drug: Aspirin Chewable Tablet 324 mg Route: PO; hb 16:55 Follow up: Response: No adverse reaction sv 16:54 Drug: Magnesium Sulfate 1 grams Route: IVPB; Infused Over: 1 hrs; Site: left sv antecubital; Disposition: 07/04 07:24 Co-signature as Attending Physician, Heladio Veras MD I agree with the assessment and bridger plan of care. Disposition: 07/03/18 16:43 Hospitalization ordered by Hansa Shau for Observation. Preliminary diagnosis is Chronic obstructive pulmonary disease with (acute) exacerbation. - Bed requested for Telemetry/MedSurg (observation). - Status is Observation. bp - Condition is Stable. - Problem is new. - Symptoms have improved. UTI on Admission? No Signatures: Dispatcher [employer] EDShraddha Urbina, RN RN Heladio Crisostomo MD MD cha Roszak, Josh, KARISHMA PA jr8 Marley Almeida, RN RN ph Nicole Conroy, RN RN Bear Aguilera RN RN Mildred Forte Corrections: (The following items were deleted from the chart) 07/03 17:48 16:43 Hospitalization Ordered by Hansa Sahu MD for Observation. Preliminary eb diagnosis is Chronic obstructive pulmonary disease with (acute) exacerbation. Bed requested for Telemetry/MedSurg (observation). Status is Observation. Condition is Stable. Problem is new. Symptoms have improved. UTI on Admission? No. jr8 20:24 17:48 07/03/2018 16:43 Hospitalization Ordered by Hansa Sahu MD for Observation. bp Preliminary diagnosis is Chronic obstructive pulmonary disease with (acute) exacerbation. Bed requested for Telemetry/MedSurg (observation). Status is Observation. Condition is Stable. Problem is new. Symptoms have improved. UTI on Admission? No. eb
[2018-07-03] MEDS ORDERED: MAGNESIUM SULFATE 1 gm IVPB 1 GM/100 ML BAG IV ONE (16:54)
[2018-07-03 17:41] LABS: Arterial Blood Carboxyhemoglob 1.2 % (0-1.5); Blood O2 Saturation 91.2 % (92-98.5)
--- NOTE | 2018-07-03 17:42 | P.HP ---
Certification for Inpatient Patient admitted to: Observation With expected LOS: <2 Midnights Patient will require the following post-hospital care: None Practitioner: I am a practitioner with admitting privileges, knowledge of patient current condition, hospital course, and medical plan of care. Services: Services provided to patient in accordance with Admission requirements found in Title 42 Section 412.3 of the Code of Federal Regulations Patient History Date of Service: 07/03/18 Reason for admission: SOB History of Present Illness: This is a 62-year-old male with significant past medical history of hypertension , diabetes, CHF diastolic dysfunction, COPD, obstructive sleep apnea, obesity, GERD, hyperlipidemia who presented to the ED complaining of having some shortness of breath that has been getting progressively worse for past 3 days. Patient stated that he went to his diamond expert this morning and was asked to be admitted to the hospital for go to the ER for further workup. Patient has underlying COPD which is oxygen dependent 10 patient stated that he has been taking his nebulizers as instructed however there was no improvement in his shortness of breath thus he decided to come to the ER. Patient stated that the he does not have any sick contacts. Denies having any fever chills nausea vomiting or any other associated symptoms at this time. In the ER patient was found to be in acute distress. ABGs were pending at this time. Patient is currently being placed on BiPAP. For acute respiratory distress. Patient will be admitted to [facility] for further care. Allergies ibuprofen Allergy (Intermediate, Verified 06/09/18 22:06) Hives/Rash Home Medications: Albuterol Neb [Proventil 0.083% Neb Soln] 2.5 mg IH QIDP PRN 04/29/18 Fenofibrate 160 mg PO DAILY 04/29/18 Oxycodone HCl/Acetaminophen [Oxycodone-Acetaminophen 10-325] 1 tab PO QIDP PRN 04/29/18 Spironolactone 50 mg PO BID 04/29/18 Trazodone [Desyrel*] 50 mg PO BEDTIME 04/29/18 clonazePAM [Klonopin] 1 mg PO QIDP PRN 04/29/18 ARIPiprazole [Abilify*] 5 mg PO DAILY 06/09/18 Amlodipine [Norvasc*] 5 mg PO DAILY 06/09/18 Budesonide/Formoterol Fumarate [Symbicort 160-4.5 Mcg Inhaler] 2 puff IH BID 09/16 Enalapril Maleate [Vasotec] 20 mg PO DAILY 06/09/18 Gabapentin 600 mg PO TID 06/09/18 Lansoprazole [Prevacid] 30 mg PO DAILY 06/09/18 Metformin HCl 1,000 mg PO BID 06/09/18 Proair Hfa 90mcg/Inh 2 puff IH QIDP PRN 06/09/18 Ipratropium Neb [Atrovent*] 0.5 mg NEB Q4HP PRN #30 amp 06/13/18 Oxycodone HCl [Oxyir (Oxycodone HCl Imr)*] 5 mg PO QIDP PRN tab 06/13/18 Oxycodone HCl/Acetaminophen [Percocet 5/325 Tab*] 1 tab PO QIDP PRN tab predniSONE [Prednisone*] 20 mg PO BID #20 tab 06/13/18 - Past Medical/Surgical History Diabetic: Yes -: IDDM -: Hypertension -: hyperlipidemia -: anxiety -: depression -: Gastroesophageal reflux disease -: Obstructive sleep apnea -: (home 02 4L) -: Pancreatic surgery -: cholecystectomy -: several back surgery -: 2008 ercp, punctured something in his pacreas, then transfered to -: [facility] for open exploratory lap, had feeding tube that has reversed -: trach from previous surgery at [facility] - Family History Father -: Heart disease, Diabetes Mother -: Heart disease, Hypertension, Lung disease, GI disease, Diabetes, Stroke, Liver disease, Kidney disease Brother -: Heart disease, Hypertension, Lung disease, Diabetes, Stroke, Liver disease, Kidney disease Notes: 2 brothers Sister -: Heart disease, GI disease Notes: no known illness - Social History Alcohol use: No CD- Drugs: No Caffeine use: Yes Review of Systems 10-point ROS is otherwise unremarkable Physical Examination - Physical Exam General: Alert, Oriented x3, Moderate distress HEENT: Atraumatic, PERRLA, Mucous membr. moist/pink, EOMI, Sclerae nonicteric Neck: Supple, 2+ carotid pulse no bruit, No LAD, Without JVD or thyroid abnormality Respiratory: Normal air movement, Expiratory wheezes, Inspiratory wheezes Cardiovascular: Regular rate/rhythm, Normal S1 S2 Gastrointestinal: Normal bowel sounds, Soft and benign, Non-distended, No tenderness Musculoskeletal: No tenderness Integumentary: No rashes Lymphatics: No axilla or inguinal lymphadenopathy - Studies Laboratory Data (last 24 hrs) 07/03/18 15:55: PT 12.3, INR 1.04 07/03/18 15:55: WBC 7.3, Hgb 13.6, Hct 39.2 L, Plt Count 238 07/03/18 15:55: Sodium 141, Potassium 3.7, BUN 17, Creatinine 0.90, Glucose 202 H, Magnesium 1.7 L D, Total Bilirubin 0.4, AST 18, ALT 26, Alkaline Phosphatase 84 Assessment and Plan - Problems (Diagnosis) (1) Acute and chronic respiratory failure Onset Date: 12/21/17 Current Visit: No Status: Acute Plan: Hypercapnic hypoxic RF. Pt not able to take deep breath in. Most likely COPD exacerbation. -BIPAP, Duonebs, Brovana for now -Wean BIPAP as tolerated -Consulted Pulmonology -educated on Weight mgmt Qualifiers: (2) COPD exacerbation Onset Date: 08/11/16 Current Visit: No Status: Acute Plan: Acute COPD exacerbation -Oxygen dependent at baseline -Duonebs, BIPAP and IS at bedside -F.u on improvement (3) CHF (congestive heart failure) Onset Date: 12/21/17 Current Visit: No Status: Chronic Plan: Chronic Diastolic Dyfunction. -Will restart home medication Qualifiers: (4) CAD (coronary artery disease) Onset Date: 05/08/17 Current Visit: No Status: Chronic Qualifiers: (5) Diabetes mellitus Onset Date: 06/11/18 Current Visit: No Status: Chronic (6) HTN (hypertension) Onset Date: 06/11/18 Current Visit: No Status: Chronic Qualifiers: (7) Obesity Onset Date: 06/11/18 Current Visit: No Status: Chronic (8) Obstructive sleep apnea Onset Date: 06/11/18 Current Visit: No Status: Chronic - Plan Patient will be admitted to [facility] for COPD exacerbation along with respiratory distress. Patient is currently going to be placed on BiPAP pulmonology will be copied. Will try to wean off the BiPAP as soon as possible. Duo nebs along with steroids. Will follow up with improvement in the morning. Anticipate discharge in 24-48 hr - Advance Directives Does patient have a Living Will: No Does patient have a Durable POA for Healthcare: No
[2018-07-03 20:38] VITALS: BMI 40.4
[2018-07-03] MEDS ORDERED: ALBUTEROL 2.5 MG/3 ML NEB SOL NEB PRN (20:40)
[2018-07-03] MEDS ORDERED: ACETAMINOPHEN 500 MG TAB PO PRN (20:40)
[2018-07-03] MEDS ORDERED: ONDANSETRON 4 MG/2 ML VIAL IV PRN (20:40)
[2018-07-03] MEDS ORDERED: IPRATROPIUM BROM 0.5MG/2.5ML NEB PRN (20:40)
[2018-07-03] MEDS ORDERED: D50W 25 GM/50 ML SYRINGE IV PRN (20:40)
[2018-07-03] MEDS: ARFORMOTEROL TARTRATE 15 MCG/2 ML VIAL.NEB NEB SCH (20:40)
[2018-07-03] MEDS ORDERED: GLUCAGON 1 MG/VIAL IM PRN (20:40)
[2018-07-03] MEDS: predniSONE 20 MG TAB PO SCH (21:52)
[2018-07-03] MEDS: INSULIN -REGULAR HUMAN 50 UNIT/0.5 ML ML SQ SCH (21:54)
[2018-07-03] MEDS: Oxycodone HCl/Acetaminophen 1 TAB TAB PO PRN (22:26)
[2018-07-03] MEDS: TRAZODONE 50 MG TABLET PO SCH ×2 (22:27→22:28)
[2018-07-03] MEDS: GABAPENTIN 300 MG CAP PO SCH (22:37)
[2018-07-03 22:55] LABS: Urine Appearance CLEAR; Urine Bilirubin NEGATIVE (NEG); Urine Blood NEGATIVE (NEG); Urine Color YELLOW; Urine Glucose 3+ (NEG); Urine Protein NEGATIVE (NEG); Urine Specific Gravity >=1.030 (1.005-1.030); Urine Urobilinogen 0.2 mg/dL (0.2-1.0)
[2018-07-03 23:04] LABS: Urine Microscopic Reflex NO UMIC
--- NOTE | 2018-07-04 04:17 | EKG ---
Test Date: 2018-07-03 Test Time: 15:49:29 Energy [employer] Analyst: KELLY MEASUREMENT RESULTS: Intervals: Rate: 92 SC: 140 QRSD: 78 QT: 352 QTc: 435 [place]: P: 29 SC: 140 QRS: -8 T: 65 INTERPRETIVE STATEMENTS: Normal sinus rhythm Normal ECG Compared to ECG 06/09/2018 15:28:45 T-wave abnormality no longer present Electronically Signed On 07-04-18 04:16:36 CDT by Shashi Jin
[2018-07-04 05:12] LABS: Absolute Lymphocytes (CBC) 0.9 K/uL (0.7-4.9); Absolute Monocytes 0.1 K/uL (0.1-1.3); Absolute Neutrophil 10.2 K/uL (1.8-8.0); Basophils % 0.8 % (0-1.3); Hematocrit 40.7 % (39.6-49.0); Lymphocytes % 7.9 % (15.3-44.8); MCH 30.4 pg (27.0-35.0); MCV 88.9 fL (80-100); MPV 7.8 fL (7.6-11.3); Monocytes % 1.2 % (3.3-12.3); RBC Red Blood Cell Count 4.58 M/uL (4.33-5.43)
[2018-07-04 05:31] LABS: Blood Morphology Comment NOT SEEN (NOT SEEN); Platelet Estimate ADEQ
[2018-07-04 05:36] LABS: Albumin 3.4 g/dL (3.4-5.0); Bilirubin Total 0.4 mg/dL (0.2-1.0); Magnesium 1.8 mg/dL (1.8-2.4); Phosphorus 2.5 mg/dL (2.5-4.9); Potassium 4.4 mmol/L (3.5-5.1); Protein, Total 7.1 g/dL (6.4-8.2)
[2018-07-04] MEDS ORDERED: MAGNESIUM SULFATE 1 gm IVPB 1 GM/100 ML BAG IV ONE (06:35)
[2018-07-04] MEDS: Oxycodone HCl/Acetaminophen 1 TAB TAB PO PRN ×2 (07:19→15:03)
[2018-07-04] MEDS: ARFORMOTEROL TARTRATE 15 MCG/2 ML VIAL.NEB NEB SCH ×2 (07:32→19:33)
[2018-07-04] MEDS: INSULIN -REGULAR HUMAN 50 UNIT/0.5 ML ML SQ SCH ×4 (08:16→21:20)
[2018-07-04] MEDS: GABAPENTIN 300 MG CAP PO SCH ×3 (08:17→21:23)
[2018-07-04] MEDS: predniSONE 20 MG TAB PO SCH ×2 (08:17→21:23)
[2018-07-04] MEDS: ENOXAPARIN 40 MG/0.4 ML SQ SCH (08:17)
--- NOTE | 2018-07-04 09:17 | RAD REPORT ---
EXAM DESCRIPTION: Rekha Berman (2 Views)07/04/2018 6:33 am CLINICAL HISTORY: Cough COMPARISON: July 03, 2018 FINDINGS: The lungs appear clear of acute infiltrate. The heart is normal size The right hemidiaphragm remains elevated IMPRESSION: No change since the prior exam
[2018-07-04] MEDS ORDERED: clonazePAM 1 MG TAB PO PRN (09:48)
--- NOTE | 2018-07-04 12:26 | P.PN ---
Subjective Date of Service: 07/04/18 Chief Complaint: SOB Patient seen and examined at bedside with RN. Chart reviewed. Case discussed with pulmonology. -overnight patient was successfully weaned off of BiPAP now on nasal cannula. -this morning still complaining of having some shortness of breath, Overall feeling better than before. No other complaints to offer at this time. Review of Systems 10-point ROS is otherwise unremarkable Physical Examination - Vital Signs Temperature: 96.8 F Blood Pressure: 143/89 Pulse: 87 Respirations: 20 Pulse Ox (%): 94 - Physical Exam General: Alert, In no apparent distress, Oriented x3, Obese HEENT: Atraumatic, PERRLA, EOMI Neck: Supple, JVD not distended Respiratory: Normal air movement, Expiratory wheezes, Inspiratory wheezes Cardiovascular: Regular rate/rhythm, Normal S1 S2 Gastrointestinal: Normal bowel sounds, No tenderness Musculoskeletal: No tenderness Integumentary: No rashes Neurological: Normal speech, Normal tone, Normal affect Lymphatics: No axilla or inguinal lymphadenopathy - Studies Laboratory Data (last 24 hrs) 07/03/18 15:55: PT 12.3, INR 1.04 07/03/18 15:55: WBC 7.3, Hgb 13.6, Hct 39.2 L, Plt Count 238 07/03/18 15:55: Sodium 141, Potassium 3.7, BUN 17, Creatinine 0.90, Glucose 202 H, Magnesium 1.7 L D, Total Bilirubin 0.4, AST 18, ALT 26, Alkaline Phosphatase 84 Medications List Reviewed: Yes Assessment And Plan - Current Problems (Diagnosis) (1) Acute and chronic respiratory failure Onset Date: 12/21/17 Current Visit: No Status: Acute Plan: Hypercapnic hypoxic RF. Pt not able to take deep breath in. Most likely COPD exacerbation. -Hang Hagan Steriods for now -Weaned of BIPAP to NC now -Consulted Pulmonology -educated on Weight mgmt Qualifiers: (2) COPD exacerbation Onset Date: 08/11/16 Current Visit: No Status: Acute Plan: Acute COPD exacerbation -Oxygen dependent at baseline -Gavino Hagan and IS -F.u on improvement (3) CHF (congestive heart failure) Onset Date: 12/21/17 Current Visit: No Status: Chronic Plan: Chronic Diastolic Dyfunction. -Will restart home medication Qualifiers: (4) CAD (coronary artery disease) Onset Date: 05/08/17 Current Visit: No Status: Chronic Qualifiers: (5) Diabetes mellitus Onset Date: 06/11/18 Current Visit: No Status: Chronic (6) HTN (hypertension) Onset Date: 06/11/18 Current Visit: No Status: Chronic Qualifiers: (7) Obesity Onset Date: 06/11/18 Current Visit: No Status: Chronic (8) Obstructive sleep apnea Onset Date: 06/11/18 Current Visit: No Status: Chronic - Plan Overeating clinical improvement at this time. Will continue with Duonebs, steroids and pulmonology consulted this time. Discharge Plan: Home Plan to discharge in: 48 Hours - Code Status/Comfort Care Code Status Assessed: Yes Critical Care: No
[2018-07-04] MEDS: SPIRONOLACTONE 25 MG TABLET PO SCH (21:21)
[2018-07-04] MEDS: TRAZODONE 50 MG TABLET PO SCH (21:24)
[2018-07-05] MEDS: Oxycodone HCl/Acetaminophen 1 TAB TAB PO PRN ×2 (01:53→08:38)
[2018-07-05 05:57] LABS: ALT/SGPT 25 U/L (12-78); AST/SGOT 24 U/L (15-37); Albumin 3.3 g/dL (3.4-5.0); Alkaline Phosphatase 59 U/L (45-117); BUN Blood Urea Nitrogen 22 mg/dL (7-18); Bicarbonate 21 mmol/L (21-32); Bilirubin Total 0.5 mg/dL (0.2-1.0); Glucose Level 302 mg/dL (74-106); Magnesium 2.3 mg/dL (1.8-2.4); Phosphorus 2.9 mg/dL (2.5-4.9); Potassium 5.2 mmol/L (3.5-5.1); Protein, Total 7.1 g/dL (6.4-8.2); Sodium Level 137 mmol/L (136-145)
[2018-07-05] MEDS ORDERED: PANTOPRAZOLE 40MG TABLET PO SCH (06:30)
[2018-07-05 07:07] LABS: Absolute Lymphocytes (CBC) 1.6 K/uL (0.7-4.9); Absolute Monocytes 0.5 K/uL (0.1-1.3); Absolute Neutrophil 8.9 K/uL (1.8-8.0); Basophils % 1.3 % (0-1.3); Eosinophils % 0.1 % (0-4.4); Hematocrit 42.9 % (39.6-49.0); Lymphocytes % 14.1 % (15.3-44.8); MCV 89.5 fL (80-100); MPV 8.1 fL (7.6-11.3); Monocytes % 4.1 % (3.3-12.3); RBC Red Blood Cell Count 4.79 M/uL (4.33-5.43)
[2018-07-05] MEDS: ARFORMOTEROL TARTRATE 15 MCG/2 ML VIAL.NEB NEB SCH (08:00)
[2018-07-05] MEDS: SPIRONOLACTONE 25 MG TABLET PO SCH (08:36)
[2018-07-05] MEDS: GABAPENTIN 300 MG CAP PO SCH ×2 (08:37→14:17)
[2018-07-05] MEDS: predniSONE 20 MG TAB PO SCH (08:37)
[2018-07-05] MEDS: ENOXAPARIN 40 MG/0.4 ML SQ SCH (08:38)
[2018-07-05] MEDS: INSULIN -REGULAR HUMAN 50 UNIT/0.5 ML ML SQ SCH ×2 (08:38→11:50)
[2018-07-05 08:40] VITALS: BP 126/71
[2018-07-05] MEDS ORDERED: ENALAPRIL 10 MG TAB PO SCH (09:00)
[2018-07-05] MEDS ORDERED: AMLODIPINE 5 MG TAB PO SCH (09:00)
[2018-07-05] MEDS ORDERED: FENOFIBRATE 160 MG TAB PO SCH (09:00)
[2018-07-05] MEDS ORDERED: ARIPiprazole 5 MG TAB PO SCH (09:00)
[2018-07-05 09:51] VITALS: TEMP 96.8
[2018-07-05 10:38] VITALS: O2SAT 96
--- NOTE | 2018-07-05 12:26 | P.SSS ---
Patient History Date of Service: 07/05/18 Reason for admission: SOB History of Present Illness: This is a 62-year-old male with significant past medical history of hypertension , diabetes, CHF diastolic dysfunction, COPD, obstructive sleep apnea, obesity, GERD, hyperlipidemia who presented to the ED complaining of having some shortness of breath that has been getting progressively worse for past 3 days. Patient stated that he went to his telesales consultant this morning and was asked to be admitted to the hospital for go to the ER for further workup. Patient has underlying COPD which is oxygen dependent 10 patient stated that he has been taking his nebulizers as instructed however there was no improvement in his shortness of breath thus he decided to come to the ER. Patient stated that the he does not have any sick contacts. Denies having any fever chills nausea vomiting or any other associated symptoms at this time. In the ER patient was found to be in acute distress. ABGs were pending at this time. Patient is currently being placed on BiPAP. For acute respiratory distress. Patient will be admitted to [facility] for further care. Allergies ibuprofen Allergy (Intermediate, Verified 07/03/18 21:22) Hives/Rash Home Medications: Albuterol Neb [Proventil 0.083% Neb Soln] 2.5 mg IH QIDP PRN 04/29/18 Fenofibrate 160 mg PO DAILY 04/29/18 Spironolactone 50 mg PO BID 04/29/18 Trazodone [Desyrel*] 50 mg PO BEDTIME 04/29/18 clonazePAM [Klonopin] 1 mg PO QIDP PRN 04/29/18 ARIPiprazole [Abilify*] 5 mg PO DAILY 06/09/18 Amlodipine [Norvasc*] 5 mg PO DAILY 06/09/18 Budesonide/Formoterol Fumarate [Symbicort 160-4.5 Mcg Inhaler] 2 puff IH BID 09/16 Enalapril Maleate [Vasotec] 20 mg PO DAILY 06/09/18 Gabapentin 600 mg PO TID 06/09/18 Lansoprazole [Prevacid] 30 mg PO DAILY 06/09/18 Metformin HCl 1,000 mg PO BID 06/09/18 Proair Hfa 90mcg/Inh 2 puff IH QIDP PRN 06/09/18 Ipratropium Neb [Atrovent*] 0.5 mg NEB Q4HP PRN #30 amp 06/13/18 Oxycodone HCl/Acetaminophen [Percocet 5/325 Tab*] 1 tab PO QIDP PRN tab predniSONE [Prednisone*] 20 mg PO BID #20 tab 06/13/18 - Past Medical/Surgical History Has patient received pneumonia vaccine in the past: Yes Diabetic: Yes -: IDDM -: Hypertension -: hyperlipidemia -: anxiety -: depression -: Gastroesophageal reflux disease -: Obstructive sleep apnea -: (home 02 4L) -: Pancreatic surgery -: cholecystectomy -: several back surgery -: 2008 ercp, punctured something in his pacreas, then transfered to -: [facility] for open exploratory lap, had feeding tube that has reversed -: trach from previous surgery at [facility] - Family History Father -: Heart disease, Diabetes Mother -: Heart disease, Hypertension, Lung disease, GI disease, Diabetes, Stroke, Liver disease, Kidney disease Brother -: Heart disease, Hypertension, Lung disease, Diabetes, Stroke, Liver disease, Kidney disease Notes: 2 brothers Sister -: Heart disease, GI disease Notes: no known illness - Social History Smoking Status: Never smoker Alcohol use: No CD- Drugs: No Caffeine use: Yes Place of Residence: Home Review of Systems 10-point ROS is otherwise unremarkable Physical Examination - Vital Signs Temperature: 96.8 F Blood Pressure: 126/71 Pulse: 78 Respirations: 20 Pulse Ox (%): 96 - Physical Exam General: Alert, In no apparent distress, Oriented x3, Obese HEENT: Atraumatic, PERRLA, Mucous membr. moist/pink, EOMI, Sclerae nonicteric Neck: Supple, 2+ carotid pulse no bruit, No LAD, Without JVD or thyroid abnormality Respiratory: Normal air movement, Expiratory wheezes Cardiovascular: Regular rate/rhythm, Normal S1 S2 Gastrointestinal: Normal bowel sounds, No tenderness Musculoskeletal: No tenderness Integumentary: No rashes Neurological: Normal gait, Normal speech, Normal strength at 5/5 x4 extr, Normal tone, Normal affect Lymphatics: No axilla or inguinal lymphadenopathy - Diagnosis (Problem(s)) (1) Acute and chronic respiratory failure Onset Date: 12/21/17 Current Visit: No Status: Acute Qualifiers: (2) COPD exacerbation Onset Date: 08/11/16 Current Visit: No Status: Acute (3) CHF (congestive heart failure) Onset Date: 12/21/17 Current Visit: No Status: Chronic Qualifiers: Heart failure type: diastolic Heart failure chronicity: chronic Qualified Code(s): I50.32 - Chronic diastolic (congestive) heart failure (4) CAD (coronary artery disease) Onset Date: 05/08/17 Current Visit: No Status: Chronic Qualifiers: (5) Diabetes mellitus Onset Date: 06/11/18 Current Visit: No Status: Chronic (6) HTN (hypertension) Onset Date: 06/11/18 Current Visit: No Status: Chronic Qualifiers: (7) Obesity Onset Date: 06/11/18 Current Visit: No Status: Chronic (8) Obstructive sleep apnea Onset Date: 06/11/18 Current Visit: No Status: Chronic Treatment Summary: Overall during the hospital stay patient remained stable Patient was initially admitted to the hospital for respiratory failure most likely secondary to hypoxic hypercapnia from a COPD exacerbation. Patient was started on duo nebs, brovana, BiPAP, steroids. Patient was successfully weaned off of BiPAP here in the hospital and was educated extensively on using the incentive spirometer and taking deep breath in. Patient's respiratory distress is most likely secondary to patient's inability to take deep breaths in and ventilate appropriately due to being overweight and shallow breathing. Patient demonstrated understanding and did well with incentive spirometer. Patient then was discharged home under stable condition was given a prescription for nebulizing treatment along with tapered steroid dose. Patient does have oxygen at home which she uses total of 4 L however was educated on putting it down to 2 L to keep his oxygen saturation between 89-92%. Patient demonstrated standing and thus was discharged home under stable condition was asked to follow up with telesales consultant in about 1-2 days. - Disposition Disposition: ROUTINE DISCHARGE Condition: GOOD Diet: Regular Activity: Ad laureen
== END 2018-07-05 15:05 | disposition home or self-care (01) ==
LOC: ER 15:01 → ERHOLD 17:19 → 2ND 19:26
PROVIDERS: ADMIT Family Medicine; ATTEND Family Medicine
DX: J96.22 Acute and chronic respiratory failure with hypercapnia (principal); J96.21 Acute and chronic respiratory failure with hypoxia; J44.1 Chronic obstructive pulmonary disease with (acute) exacerbation; I11.0 Hypertensive heart disease with heart failure; I50.32 Chronic diastolic (congestive) heart failure; E11.9 Type 2 diabetes mellitus without complications; G47.33 Obstructive sleep apnea (adult) (pediatric); E66.9 Obesity, unspecified; Z68.41 Body mass index [BMI] 40.0-44.9, adult
CPT/HCPCS: 36415 ×2; 71045; 71046; 80048; 80053 ×2; 80076; 81003; 82805; 82962 ×7; 83735 ×3; 83880; 84100 ×2; 84484; 85025 ×3; 85610; 93005; 94640 ×2; 94660; 97116; 97163; 99285; G0378 ×2; J1650; J2930; J3010; J3475 ×2; J7605 ×3; J7512

== ENCOUNTER 2018-07-31 12:18 | Emergency (ER) | payer MEDICARE, SELFPAY ==
--- OUTSIDE RECORDS SUMMARY | 2018-07-31 12:30 | XMS REPORT | Clinical Summary ---
:1955 Author Organization [facility] Address [address] [place] [address] Care Team Providers Name Role Phone Bebeto [...] per tablet TWELVE HOURS NEEDED FOR PAIN famotidine (PEPCID) Take 20 mg by 0 05/24/2016 Active 20 MG tablet mouth 2 (two) times a day. SPIRIVA RESPIMAT 2.5 TAKE [...] complication, with long-term current use of insulin ([facility]) enalapril (VASOTEC) Take 1 tablet 90 tablet 1 07/19/2017 Active 20 MG (20 mg total) tabletIndications: by mouth daily. Benign essential hypertension blood sugar Check glucose 4 400 strip 3 08/11/2017 Active diagnostic strips times a day (ONETOUCH VERIO) strip test stripsIndications: Type 2 diabetes mellitus with complication, with long-term current use of insulin ([facility]) insulin GLARGINE Inject 70 Units 22.5 mL 1 08/14/2017 Active (TOUJEO SOLOSTAR) under the skin 300 unit/mL (1.5 mL) daily. insulin penIndications: Type 2 diabetes mellitus with complication, with long-term current use of insulin ([facility]) insulin Use 1 syringe 270 each 1 [...] tablet (two) times a day with meals. furosemide (LASIX) Take 40 mg by Active 40 mg tablet mouth 2 (two) times a day. spironolactone Take 50 mg by Active (ALDACTONE) 50 MG mouth daily. tablet omeprazole Take 40 mg by Active (PriLOSEC) 40 MG mouth 2 (two) capsule times a day. ARIPiprazole Take 10 mg by Active (ABILIFY) 10 MG mouth daily. tablet clonAZEPAM Take 1 mg by Active (KlonoPIN) 1 MG mouth 3 (three) tablet times a day as needed for seizures. atorvastatin Take 1 tablet 90 tablet 3 07/25/2018 Active (LIPITOR) 20 MG (20 mg total) tablet by mouth nightly. Default OP ins lansoprazole Take 1 07/25/20 Discontinued (PREVACID) 30 MG capsule(s) 18 capsule every day by oral route. lansoprazole Take 30 mg by 0 05/23/2016 07/25/20 Discontinued (PREVACID) 30 MG mouth 2 (two) 18 capsule times a day. atorvastatin Take 1 tablet 90 tablet 3 [...] complication, with long-term current use of insulin ([facility]) blood sugar Check glucose 4 400 strip 3 03/01/2017 08/11/20 Discontinued diagnostic strips times a day 17 (ONETOUCH VERIO) strip test stripsIndications: Type 2 diabetes mellitus with complication, with long-term current use of insulin ([facility]) insulin lispro Inject 35 Units 105 mL [...] complication, with long-term current use of insulin ([facility]) insulin ASPART Inject 70 Units 15 mL 1 08/14/2017 08/14/20 (NovoLOG Flexpen) under the skin 17 100 unit/mL insulin once for 1 pen dose. atorvastatin Take 20 mg by 07/25/20 Discontinued (LIPITOR) 20 MG mouth nightly. 18 tablet Default OP ins Active Problems Problem Noted Date Benign hypertension 04/11/2016 Bronchitis 04/11/2016 Chronic coronary artery disease 04/11/2016 Disease of airway 04/11/2016 Fever 04/11/2016 HLD (hyperlipidemia) 04/11/2016 Methicillin susceptible Staphylococcus aureus in conditions classified 2015 elsewhere and of unspecified site Escherichia coli (E. coli) infection 04/11/2016 Leukocytosis 04/11/2016 Localized peritonitis (HCC) 04/11/2016 Abscess, retroperitoneal (HCC) 04/11/2016 Fatty liver 04/11/2016 Uncontrolled type 2 diabetes mellitus (HCC) 04/11/2016 Vitamin D deficiency 04/11/2016 Encounters Date Type Specialty Care Team Description 07/25/2018 Office Visit Endocrinology Kimi Jack, Uncontrolled type 2 diabetes mellitus with complication, unspecified watcher [employer] goods insulin use status (Primary Dx) 06/14/2018 Documentation Endocrinology Susanna Laboy MA 05/22/2018 Orders Only Endocrinology Susanna Laboy MA 05/17/2018 Documentation Endocrinology Susanna Laboy MA 03/22/2018 Documentation Endocrinology Susanna Laboy MA 03/22/2018 Orders Only Susanna Somers MA 03/20/2018 Office Visit Endocrinology Kimi Jack, Uncontrolled type 2 diabetes mellitus with complication, unspecified watcher [employer] goods insulin use status (Primary Dx); Hyperlipidemia, unspecified hyperlipidemia type 03/20/2018 Ancillary Procedure Kimi Jack, 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, with long-term current use of insulin; Osteopenia, unspecified location 03/19/2018 Telephone Endocrinology Felicia Denton 03/06/2018 Orders Only Endocrinology Susanna Laboy MA 02/06/2018 Refill Endocrinology Alexander Mckeon Type 2 diabetes HMD Sumit mellitus with complication, with long-term current use of insulin 01/04/2018 Refill Endocrinology Alexander Mckeon Mixed hyperlipidemia HMD Sumit 01/02/2018 Orders Only Endocrinology Susanna Laboy MA 12/27/2017 Documentation Susanna Somers MA 12/09/2017 Refill Endocrinology Alexander Mckeon Uncontrolled type 2 HMD Sumit diabetes mellitus with other circulatory complication, with [...] hypertension; Mixed hyperlipidemia; Coronary artery disease involving [place] heart with angina pectoris, unspecified vessel or lesion type after 07/30/2017 Family History Medical History Relation Name Comments [...] Vital Sign Reading Time Taken Blood Pressure 119/69 07/25/2018 9:08 AM CDT Pulse 83 07/25/2018 9:08 AM CDT Temperature 36.2 C (97.1 F) 12/01/2017 12:05 PM RECRUITMENT ASSISTANT Respiratory Rate 95 08/11/2017 9:18 AM CDT Oxygen Saturation 92% 07/25/2018 9:08 AM CDT Inhaled Oxygen Concentration - - Weight 114 kg (250 lb 6.4 oz) 07/25/2018 9:08 AM CDT Height 170.2 cm (5' 7") 07/25/2018 9:08 AM CDT Body Mass Index 39.22 07/25/2018 9:08 AM CDT Plan of Treatment Date Type Specialty Care Team Description 11/19/2018 Office Visit Endocrinology Kimi Jack MD [address] [facility] [address] [place] [address] Health Maintenance Due Date Last Done Comments COLON CANCER SCREENING 2003 SHINGRIX VACCINE (#1) 2003 ZOSTER VACCINE 2013 DIABETIC FOOT EXAM 10/10/2017 10/10/2016, 10/10/2016, 07/18/2016 INFLUENZA VACCINE 05/30/2018 07/27/2017, 07/13/2016 URINE MICROALBUMIN 07/19/2019 07/19/2018, 01/07/2017, 01/07/2017, Additional history exists DIABETIC RETINAL EYE EXAM 03/20/2020 03/20/2018, 04/28/2017, 04/28/2016 Procedures Procedure Name Priority Date/Time Associated Diagnosis Comments VITAMIN D 25 HYDROXY Routine 07/19/2018 7:17 Results for this LEVEL AM CDT procedure are in the results section. MICROALBUMIN / Routine 07/19/2018 7:17 Results for this CREATININE URINE AM CDT procedure are in RATIO the results section. LIPID PANEL Routine 07/19/2018 7:17 Uncontrolled type 2 Results for this AM CDT diabetes mellitus with procedure are in complication, the results unspecified [employer] section. insulin use status Hyperlipidemia, unspecified hyperlipidemia type COMPREHENSIVE Routine 07/19/2018 7:17 Uncontrolled type 2 Results for this METABOLIC PANEL AM CDT diabetes mellitus with procedure are in complication, the results unspecified watcher autom[employer] goods section. insulin use status HEMOGLOBIN A1C Routine 07/19/2018 7:17 Uncontrolled type 2 Results for this AM CDT diabetes mellitus with procedure are in complication, the results unspecified watcher [employer] goods section. insulin use status POC GLUCOSE Routine 03/20/2018 10:34 Uncontrolled type 2 Results for this AM CDT diabetes mellitus with procedure are in complication, the results unspecified custodial section. insulin use status POC GLYCOSYLATED Routine 03/20/2018 10:34 Uncontrolled type 2 Results for this HEMOGLOBIN (HGB A1C) AM CDT diabetes mellitus with procedure are in complication, the results unspecified watcher [employer] goods section. insulin use status BONE DENSITY Routine 03/20/2018 10:09 Uncontrolled type 2 Results for this AM CDT diabetes mellitus with procedure are in other circulatory the results complication, with section. long-term current use of insulin Osteopenia, unspecified location POC GLYCOSYLATED Routine 12/01/2017 12:19 Uncontrolled type 2 Results for this HEMOGLOBIN (HGB A1C) PM RECRUITMENT ASSISTANT diabetes mellitus with procedure are in other circulatory the results complication, with section. long-term current use of insulin POC GLUCOSE Routine 12/01/2017 12:18 Uncontrolled type 2 Results for this PM RECRUITMENT ASSISTANT diabetes mellitus with procedure are in other circulatory the results complication, with section. long-term current use of insulin POC GLYCOSYLATED Routine 08/11/2017 9:28 Uncontrolled type 2 Results for this HEMOGLOBIN (HGB A1C) AM CDT diabetes mellitus with procedure are in other circulatory the results complication, with section. long-term current use of insulin POC GLUCOSE Routine 08/11/2017 9:28 Uncontrolled type 2 Results for this AM CDT diabetes mellitus with procedure are in other circulatory the results complication, with section. long-term current use of insulin after 07/30/2017 Results Microalbumin / creatinine urine ratio (07/19/2018 7:17 AM) Creatinine, urine, 137 20 - 320 mg/dL [facility] random [place] Microalbumin, urine 0.6 See Note: mg/dL [facility] Comment: [place] Reference Range: Reference Range Not established Microalbumin/creatini 4 <30 mcg/mg creat [facility] ne ratio Comment: [place] The ADA defines abnormalities in albumin excretion as follows: Category Result (mcg/mg creatinine) Normal<30 Microalbuminuria 30-299 Clinical albuminuria > HY=054 The ADA recommends that at least two of three specimens collected within a 3-6 month period be abnormal before considering a patient to be within a diagnostic category. Narrative Performed At FASTING:YES [facility] FASTING: YES Other Results Text Performing Organization Information: Site ID: [id number] [facility]: [facility] Address: [address] [place] [id number] Director: Mitzi Lyons Performing Organization Address City/State/Zipcode Phone Number [facility] [place] [phone] Vitamin D 25 hydroxy level (07/19/2018 7:17 AM) Vitamin D, 25-hydroxy 19 (L) 30 - 100 ng/mL [facility] Comment: [place] Vitamin D Status 25-OH Vitamin D: Deficiency:<20 ng/mL Insufficiency: 20 - 29 ng/mL Optimal: > or=30 ng/mL For 25-OH Vitamin D testing on patients on D2-supplementation and patients for whom quantitation of D2 and D3 fractions is required, the QuestAssureD(TM) 25-OH VIT D, (D2,D3), LC/MS/MS is recommended: order code 24534 (patients >2yrs). For more information on this test, go to: http://education.G[employer]/faq/BAL512 (This link is being provided for informational/educational purposes only.) Narrative Performed At FASTING:YES [facility] FASTING: YES Other Results Text Performing Organization Information: Site ID: [id number] Name: [facility] Address: [address] [place] [phone] Director: Mitzi Lyons Performing Organization Address [facility] Phone Number [address] [facility] [place] [address] Hemoglobin A1c (07/19/2018 7:17 AM) Hemoglobin A1C 8.0 (H) <5.7 % of total [facility] Comment: Hgb [place] For someone without known diabetes, a hemoglobin A1c value of 6.5% or greater indicates that they may have diabetes and this should be confirmed with a follow-up test. For someone with known diabetes, a value <7% indicates that their diabetes is well controlled and a value greater than or equal to 7% indicates suboptimal control. A1c targets should be individualized based on duration of diabetes, age, comorbid conditions, and other considerations. Currently, no consensus exists regarding use of hemoglobin A1c for diagnosis of diabetes for children. Specimen Blood Narrative Performed At FASTING:YES [facility] FASTING: YES Other Results Text Performing Organization Information: Site ID: [id number] Name: [facility] Address: [address] [place] [address] Director: Mitzi Lyons Performing Organization Address [facility] Phone Number [place] [address] Lipid panel (07/19/2018 7:17 AM) Cholesterol, total 189 <200 mg/dL [facility] [place] HDL cholesterol 38 (L) >40 mg/dL [facility] [place] Triglycerides 262 (H) <150 mg/dL [facility] [place] LDL cholesterol 114 (H) mg/dL (calc) [facility] calculated Comment: [place] Reference range: <100 Desirable range <100 mg/dL for primary prevention; <70 mg/dL for patients with CHD or diabetic patients with > or=2 CHD risk factors. LDL-C is now calculated using the Pillo-Avila calculation, which is a validated novel method providing better accuracy than the Friedewald equation in the estimation of LDL-C. Pillo SS et al. BRENDA. 2013;310(19): 4476-6871 (http://education.LegiTime Technologies/faq/KYB668) Cholesterol/HDL ratio 5.0 (H) <5.0 (calc) [facility] [place] Non-HDL cholesterol 151 (H) <130 mg/dL [facility] Comment: (calc) [place] For patients with diabetes plus 1 major ASCVD risk factor, treating to a non-HDL-C goal of <100 mg/dL (LDL-C of <70 mg/dL) is considered a therapeutic option. Specimen Blood Narrative Performed At FASTING:YES [facility] FASTING: YES Other Results Text Performing Organization Information: Site ID: RGA Name: [facility] Address: [address] [place] [phone] Director: Mitzi Lyons Performing Organization Address City/State/Zipcode Phone Number [facility] [place] [phone] Comprehensive metabolic panel (07/19/2018 7:17 AM) Glucose 107 (H) 65 - 99 mg/dL [facility] Comment: [place] Fasting reference interval For someone without known diabetes, a glucose value between 100 and 125 mg/dL is consistent with prediabetes and should be confirmed with a follow-up test. BUN, whole blood 33 (H) 7 - 25 mg/dL [facility] Creatinine 0.93 0.70 - 1.25 [facility] Comment: mg/dL [place] For patients >49 years of age, the reference limit for Creatinine is approximately 13% higher for people identified as -Jordanian. EGFR Non-Afr. [place]ian 86 > OR=60 [facility] mL/min/1.73m2 [place] EGFR 100 > OR=60 [facility] mL/min/1.73m2 [place] BUN/creatinine ratio 35 (H) 6 - 22 (calc) [facility] Sodium 139 135 - 146 mmol/L [facility] [place] Potassium 4.4 3.5 - 5.3 mmol/L [facility] [place] Chloride 105 98 - 110 mmol/L [facility] [place] CO2 27 20 - 32 mmol/L [facility] [place] Calcium 9.6 8.6 - 10.3 mg/dL [facility] [place] Protein 6.8 6.1 - 8.1 g/dL [facility] Albumin, S 4.2 3.6 - 5.1 g/dL [facility] Globulin, total 2.6 1.9 - 3.7 g/dL [facility] (calc) [place] Albumin/globulin ratio 1.6 1.0 - 2.5 (calc) [facility] Total bilirubin 0.4 0.2 - 1.2 mg/dL [facility] Alkaline phosphatase 46 40 - 115 U/L [facility] AST 21 10 - 35 U/L [facility] ALT 26 9 - 46 U/L [facility] Specimen Blood Narrative Performed At FASTING:YES [facility] FASTING: YES Other Results Text Performing Organization Information: Site ID: [id number] Name: [facility] Address: [address] [place] [phone] Director: Mitzi Lyons Performing Organization Address City/State/Zipcode Phone Number [facility] [place] [phone] POC glycosylated hemoglobin (Hb A1C) (03/20/2018 10:34 AM)Only the most recent of3 resultswithin the time period is included. POC Hemoglobin A1C 8.6 % Specimen Blood POC glucose (03/20/2018 10:34 AM)Only the most recent of3 resultswithin the time period is included. POC glucose 136Comment: non fasting 65 - 100 Specimen Blood Bone Density (03/20/2018 10:09 AM) Narrative Performed At [facility] [address] [place] [address] [address] [place] [address] Bone Density Report Name: Garrison Burnett Sex: Male Age: 62 Ethnicity: White Height: 64.0 in Referring Provider: KIMI JACK Date of : 1955 Weight: 249.8lb Indication: History of glucocorticoids Accession number: [id number] Bone Density: Exam date 03/20/2018 Region BMD [...] AM. Performing Organization Address City/State/Zipcode Phone Number [facility] [address] [place] [address] after 07/30/2017 Insurance Payer Benefit Plan / Group Subscriber ID Type Phone Address [facility] MEDICARE AARP MEDICARE COMPLETE MCR xxxxxxxxx O
[2018-07-31] MEDS ORDERED: METRONIDAZOLE 500mg IVPB 500 MG/100 ML BAG IV ONE (14:11)
[2018-07-31] MEDS ORDERED: NA CHLORIDE 0.9% 1,000 ML ONE (14:11)
[2018-07-31] MEDS ORDERED: Levofloxacin500mg IV 500 MG/100 ML BAG IV ONE (14:11)
[2018-07-31 14:42] LABS: Absolute Lymphocytes (CBC) 2.3 K/uL (0.7-4.9); Absolute Monocytes 0.4 K/uL (0.1-1.3); Absolute Neutrophil 7.1 K/uL (1.8-8.0); Basophils % 0.9 % (0-1.3); Eosinophils % 0.4 % (0-4.4); Hematocrit 41.3 % (39.6-49.0); Lymphocytes % 22.7 % (15.3-44.8); MCH 31.3 pg (27.0-35.0); MCV 88.5 fL (80-100); MPV 7.9 fL (7.6-11.3); Monocytes % 4.5 % (3.3-12.3); RBC Red Blood Cell Count 4.66 M/uL (4.33-5.43)
[2018-07-31 14:45] LABS: Protime INR 1.04
[2018-07-31 15:02] LABS: ALT/SGPT 32 U/L (12-78); AST/SGOT 22 U/L (15-37); Albumin 3.8 g/dL (3.4-5.0); Alkaline Phosphatase 49 U/L (45-117); BUN Blood Urea Nitrogen 20 mg/dL (7-18); Bicarbonate 25 mmol/L (21-32); Bilirubin Direct 0.1 mg/dL (0-0.2); Bilirubin Total 0.4 mg/dL (0.2-1.0); Glucose Level 152 mg/dL (74-106); Lipase 184 U/L (73-393); Magnesium 1.9 mg/dL (1.8-2.4); NT PRO-BNP 35 pg/mL (<125); Potassium 4.1 mmol/L (3.5-5.1); Protein, Total 7.6 g/dL (6.4-8.2); Sodium Level 143 mmol/L (136-145); Troponin (Emerg Dept Use Only) < 0.02 ng/mL (0.0-0.045)
[2018-07-31] MEDS ORDERED: MORPHINE 4 MG/ML SYR ONE (15:07)
[2018-07-31] MEDS ORDERED: ONDANSETRON 4 MG/2 ML VIAL ONE (15:07)
--- NOTE | 2018-07-31 15:15 | RAD REPORT ---
EXAM DESCRIPTION: RAD - Chest Single View - 07/31/2018 3:06 pm CLINICAL HISTORY: COUGH Chest pain. COMPARISON: Chest Pa And Lat (2 Views) dated 07/04/2018; Chest Single View dated 07/03/2018; Chest Singl e View dated 06/10/2018; Chest Single View dated 06/09/2018 FINDINGS: Portable technique limits examination quality. Linear subsegmental atelectasis is present in both lung bases, chronic. The lungs are otherwise clear . The heart is normal in size. No displaced fractures. IMPRESSION: Chronic bibasilar atelectasis.
[2018-07-31 16:27] LABS: Arterial Blood Carboxyhemoglob 1.1 % (0-1.5); Blood Gas Oxyhemoglobin 89.6 % (94-97); Blood O2 Saturation 91.7 % (92-98.5)
--- NOTE | 2018-07-31 16:32 | RAD REPORT ---
EXAM DESCRIPTION: CT - Abdomen Pelvis W Contrast - 07/31/2018 4:14 pm CLINICAL HISTORY: Abdominal pain. Rectal pain COMPARISON: 2014 TECHNIQUE: Computed axial tomography of the abdomen and pelvis was obtained. 100 cc Isovue-300 is ad ministered intravenously. Oral contrast was given. All CT scans are performed using dose optimization technique as appropriate and may include automated exposure control or mA/KV adjustment according to patient size. FINDINGS: The gallbladder has been removed. Fatty infiltration liver seen. The Spleen, pancreas, adrenals and kidneys appear unremarkable. The appendix is normal caliber. Diverticula stem from the colon without evidence of diverticulitis A small ventral hernia contains fat within the mid abdomen near midline. Spondylosis involves lumbar spine resulting spinal stenosis The perirectal fat is clear. A a mass within the buttocks is not visualized IMPRESSION: No acute abnormality is displayed
--- NOTE | 2018-07-31 16:48 | ER ---
Nurse's Notes [facility] Name: Asim Burnett Age: 62 yrs Sex: Male : 1955 Arrival Date: 07/31/2018 Time: 12:28 Bed 19 Private MD: Diagnosis: Obesity, unspecified;Chronic obstructive pulmonary disease, unspecified;Type 1 diabetes mellitus;Rectal polyp Presentation: 07/31 12:45 Presenting complaint: Patient states: "I think I have a boil in my butt. Its just a aj1 round ball" Reports he noticed it one week ago, and its not getting any better. Denies fever. Transition of care: patient was not received from another setting of care. Onset of symptoms was June 2018. Risk Assessment: Do you want to hurt yourself or someone else? Patient reports no desire to harm self or others. Initial Sepsis Screen: Does the patient meet any 2 criteria? HR > 90 bpm. No. Patient's initial sepsis screen is negative. Does the patient have a suspected source of infection? Yes: Skin breakdown/wound. Care prior to arrival: None. 12:45 Method Of Arrival: Ambulatory aj1 12:45 Acuity: ORACIO 4 aj1 Triage Assessment: 12:47 General: Appears in no apparent distress. comfortable, Behavior is calm, cooperative, aj1 appropriate for age. Pain: Denies pain. Neuro: Level of Consciousness is awake, alert, obeys commands. Cardiovascular: Patient's skin is warm and dry. Respiratory: Airway is patent Respiratory effort is even, unlabored, Respiratory pattern is regular, symmetrical. Historical: - Allergies: 12:47 Ibuprofen; aj1 - Home Meds: 12:47 Abilify 5 mg Oral tab 1 tab once daily [Active]; Albuterol Inhl [Active]; amlodipine 5 aj1 mg tab 1 tab once daily [Active]; clonazepam 1 mg Oral tab 1 tab QID PRN [Active]; enalapril maleate 20 mg Oral tab 1 tab once daily [Active]; fenofibrate 160 mg Oral tab 1 tab once daily [Active]; Humalog 100 unit/mL Sub-Q soln 24 unit three times a day [Active]; lansoprazole 30 mg Oral cpDR 1 cap once daily [Active]; metformin 1,000 mg Oral TG24 1 tab 2 times per day [Active]; oxycodone-acetaminophen 10-325 mg Oral tab 1 tab twice a day [Active]; spironolactone 25 mg Oral tab 1 tab once daily [Active]; symbicort [Active]; Toujeo SoloStar 300 unit/mL (1.5 mL) subcutaneous inpn 50 unit nightly [Active]; trazodone 50 mg Oral tab 1 tab nightly [Active]; - PMHx: 12:47 Anxiety; COPD; Depression; Diabetes - IDDM; High Cholesterol; Hypertension; aj1 - PSHx: 13:30 None; rb1 - Immunization history:: Flu vaccine is up to date. - Social history:: Smoking status: Patient/guardian denies using tobacco. - Ebola Screening: : Patient denies travel to an Ebola-affected area in the 21 days before illness onset. Screenin:30 Abuse screen: Denies threats or abuse. Nutritional screening: No deficits noted. rb1 Tuberculosis screening: No symptoms or risk factors identified. Fall Risk None identified. Assessment: 13:30 General: Appears uncomfortable, obese, Behavior is calm, cooperative, Denies fever. rb1 Pain: Complains of pain in rectum Pain currently is 10 out of 10 on a pain scale. Pain began x 1 week. Neuro: Level of Consciousness is awake, alert, obeys commands, Oriented to person, place, time, situation. Cardiovascular: Capillary refill < 3 seconds is brisk in bilateral fingers. Respiratory: Airway is patent Respiratory effort is even, unlabored, Respiratory pattern is regular, symmetrical. GI: No signs and/or symptoms were reported involving the gastrointestinal system. : No signs and/or symptoms were reported regarding the genitourinary system. Derm: Skin is dry, Skin is normal, Skin temperature is warm. Musculoskeletal: Range of motion: intact in all extremities. 13:30 GI: Reports Pt. complains of a hard lump located in his rectal area. rb1 14:30 Reassessment: Patient appears in no apparent distress at this time. No changes from rb1 previously documented assessment. 15:30 Reassessment: Patient appears in no apparent distress at this time. Patient and/or rb1 family updated on plan of care and expected duration. Pain level reassessed. Patient is alert, oriented x 3, equal unlabored respirations, skin warm/dry/pink. 16:30 Reassessment: Patient appears in no apparent distress at this time. No changes from rb1 previously documented assessment. 17:10 Reassessment: Discharge pending due antibiotics infusing. rb1 17:30 Reassessment: Patient appears in no apparent distress at this time. Patient and/or rb1 family updated on plan of care and expected duration. Pain level reassessed. Patient is alert, oriented x 3, equal unlabored respirations, skin warm/dry/pink. 18:15 Reassessment: Patient appears in no apparent distress at this time. No changes from rb1 previously documented assessment. Vital Signs: 12:47 BP 113 / 76; Pulse 96; Resp 20; Temp 97.0(TE); Pulse Ox 95% on R/A; Weight 136.08 kg aj1 (R); Height 5 ft. 6 in. (167.64 cm) (R); Pain 0/10; 13:46 BP 123 / 84; Pulse 90; Resp 19; Pulse Ox 95% on R/A; rb1 14:30 BP 130 / 90; Pulse 91; Resp 18; Pulse Ox 93% on R/A; rb1 15:30 BP 128 / 90; Pulse 83; Resp 17; Pulse Ox 95% on R/A; rb1 16:30 BP 113 / 69; Pulse 82; Resp 20; Pulse Ox 95% on R/A; rb1 17:30 BP 116 / 85; Pulse 81; Resp 19; Pulse Ox 100% on R/A; rb1 12:47 Body Mass Index 48.42 (136.08 kg, 167.64 cm) aj1 ED Course: 12:28 Patient arrived in ED. as 12:46 Triage completed. aj1 12:47 Arm band placed on Patient placed in waiting room, Patient notified of wait time. aj1 13:30 Patient has correct armband on for positive identification. Placed in gown. Bed in low rb1 position. Call light in reach. Side rails up X 1. Pulse ox on. NIBP on. Warm blanket given. 13:51 Elva Willingham, MILLA is Primary Nurse. rb1 13:56 Heladio Veras MD is Attending Physician[facility]06 CT completed. Patient tolerated procedure well. Patient moved to CT via stretcher. jg6 Patient moved back from CT. 14:15 Inserted saline lock: 22 gauge in left antecubital area, using aseptic technique. Blood rb1 collected. 14:27 EKG done, by lead manufacturing technician. reviewed by Heladio Veras MD. at1 15:04 X-ray completed. Portable x-ray completed in exam room. Patient tolerated procedure ml well. 15:06 XRAY Chest (1 view) In Process Unspecified. EDMS 16:[address] via wheelchair. nj 16:14 CT completed. Patient tolerated procedure well. Patient moved back from CT. jj2 16:14 CT Abd/Pelvis - W/Contrast In Process Unspecified. EDMS 16:46 Jose Carpio MD is Hospitalizing Provider. bridger 16:58 Fredrick Austin MD is Referral Physician. bridger 18:33 No provider procedures requiring assistance completed. IV discontinued, intact, rb1 bleeding controlled, No redness/swelling at site. Pressure dressing applied. Administered Medications: 14:15 Drug: NS 0.9% 1000 ml Route: IV; Rate: 1 bolus; Site: left antecubital; rb1 15:22 Follow up: IV Status: Completed infusion rb1 14:25 Drug: Flagyl 500 mg Volume: 100 ml; Route: IVPB; Rate: 200 ml/hr; Infused Over: 30 rb1 mins; Site: left antecubital; 15:11 Follow up: Response: No adverse reaction; IV Status: Completed infusion rb1 15:05 Drug: morphine 4 mg Route: IVP; Site: left antecubital; rb1 15:30 Follow up: Response: No adverse reaction; Pain is decreased rb1 15:06 Drug: Zofran 4 mg Route: IVP; Site: left antecubital; rb1 15:30 Follow up: Response: No adverse reaction rb1 15:39 Drug: levofloxacin 500 mg Volume: 100 ml; Route: IVPB; Infused Over: 60 mins; Site: rb1 left antecubital; 17:35 Follow up: Response: No adverse reaction; IV Status: Completed infusion; Pt. was taken rb1 off the infusion to go for testing. 17:20 Drug: Xopenex 3.75 mg Route: Inhalation; rb1 17:20 Drug: AtroVENT Aerosol 0.5 mg Route: Inhalation; rb1 17:20 Drug: SOLU-Medrol 125 mg Route: IVP; Site: left antecubital; rb1 17:50 Follow up: Response: No adverse reaction rb1 Point of Care Testing: Blood Glucose: 14:18 Blood Glucose: 139 mg/dL; rb1 Ranges: Intake: Outcome: 16:47 Decision to Hospitalize by Provider. bridger 16:59 Discharge ordered by . bridger 18:33 Patient left the ED. rb1 18:33 Discharged to home ambulatory. rb1 18:33 Condition: stable 18:33 Discharge instructions given to patient, Instructed on discharge instructions, follow up and referral plans. medication usage, Demonstrated understanding of instructions, follow-up care, medications, Prescriptions given X 3. Signatures: Dispatcher [employer] EDGeorgia Virgen RN RN aj1 Heladio Veras MD MD cha Jaramillo, Rj jj2 Jimenez, Nay Fitzgerald Amanda, community engagement coordinator EKG Tat1 Elva Willingham RN RN rb1 Jameson, Yesi Gutiérrez6
--- NOTE | 2018-07-31 16:48 | EDPHYS ---
Physician Documentation [facility] Name: Asim Burnett Age: 62 yrs Sex: Male : 1955 Arrival Date: 07/31/2018 Time: 12:28 Bed 19 Private MD: ED Physician Heladio Veras HPI: 07/31 16:43 This 62 yrs old Male presents to ER via Ambulatory with complaints of Rectal bridger Abscess. 16:43 The patient presents to the emergency department with pain in the rectal area, that is bridger moderate. Onset: The symptoms/episode began/occurred 3 day(s) ago. Historical: - Allergies: 12:47 Ibuprofen; aj1 - Home Meds: 12:47 Abilify 5 mg Oral tab 1 tab once daily [Active]; Albuterol Inhl [Active]; amlodipine 5 aj1 mg tab 1 tab once daily [Active]; clonazepam 1 mg Oral tab 1 tab QID PRN [Active]; enalapril maleate 20 mg Oral tab 1 tab once daily [Active]; fenofibrate 160 mg Oral tab 1 tab once daily [Active]; Humalog 100 unit/mL Sub-Q soln 24 unit three times a day [Active]; lansoprazole 30 mg Oral cpDR 1 cap once daily [Active]; metformin 1,000 mg Oral TG24 1 tab 2 times per day [Active]; oxycodone-acetaminophen 10-325 mg Oral tab 1 tab twice a day [Active]; spironolactone 25 mg Oral tab 1 tab once daily [Active]; symbicort [Active]; Toujeo SoloStar 300 unit/mL (1.5 mL) subcutaneous inpn 50 unit nightly [Active]; trazodone 50 mg Oral tab 1 tab nightly [Active]; - PMHx: 12:47 Anxiety; COPD; Depression; Diabetes - IDDM; High Cholesterol; Hypertension; aj1 - PSHx: 13:30 None; rb1 - Immunization history:: Flu vaccine is up to date. - Social history:: Smoking status: Patient/guardian denies using tobacco. - Ebola Screening: : Patient denies travel to an Ebola-affected area in the 21 days before illness onset. ROS: 16:44 Constitutional: Negative for fever, chills, and weight loss, Eyes: Negative for injury, bridger pain, redness, and discharge, ENT: Negative for injury, pain, and discharge, Neck: Negative for injury, pain, and swelling, Cardiovascular: Negative for chest pain, palpitations, and edema, Abdomen/GI: Negative for abdominal pain, nausea, vomiting, diarrhea, and constipation, Back: Negative for injury and pain, : Negative for injury, bleeding, discharge, and swelling, MS/Extremity: Negative for injury and deformity, Skin: Negative for injury, rash, and discoloration, Neuro: Negative for headache, weakness, numbness, tingling, and seizure. 16:44 Respiratory: Positive for cough, shortness of breath, wheezing, expiratory. Exam: 16:44 Constitutional: This is a well developed, well nourished patient who is awake, alert, bridger and in no acute distress. Head/Face: Normocephalic, atraumatic. Eyes: Pupils equal round and reactive to light, extra-ocular motions intact. Lids and lashes normal. Conjunctiva and sclera are non-icteric and not injected. Cornea within normal limits. Periorbital areas with no swelling, redness, or edema. ENT: Nares patent. No nasal discharge, no septal abnormalities noted. Tympanic membranes are normal and external auditory canals are clear. Oropharynx with no redness, swelling, or masses, exudates, or evidence of obstruction, uvula midline. Mucous membranes moist. Neck: Trachea midline, no thyromegaly or masses palpated, and no cervical lymphadenopathy. Supple, full range of motion without nuchal rigidity, or vertebral point tenderness. No Meningismus. Chest/axilla: Normal chest wall appearance and motion. Nontender with no deformity. No lesions are appreciated. Cardiovascular: Regular rate and rhythm with a normal S1 and S2. No gallops, murmurs, or rubs. Normal PMI, no JVD. No pulse deficits. Back: No spinal tenderness. No costovertebral tenderness. Full range of motion. Male : Normal genitalia with no discharge or lesions. Skin: Warm, dry with normal turgor. Normal color with no rashes, no lesions, and no evidence of cellulitis. MS/ Extremity: Pulses equal, no cyanosis. Neurovascular intact. Full, normal range of motion. Neuro: Awake and alert, GCS 15, oriented to person, place, time, and situation. Cranial nerves II-XII grossly intact. Motor strength 5/5 in all extremities. Sensory grossly intact. Cerebellar exam normal. Normal gait. Psych: Awake, alert, with orientation to person, place and time. Behavior, mood, and affect are within normal limits. 16:44 Respiratory: mild respiratory distress is noted, moderate respiratory distress is noted, Respirations: labored breathing, that is mild, Breath sounds: decreased breath sounds, rhonchi, wheezing: expiratory Vital Signs: 12:47 BP 113 / 76; Pulse 96; Resp 20; Temp 97.0(TE); Pulse Ox 95% on R/A; Weight 136.08 kg aj1 (R); Height 5 ft. 6 in. (167.64 cm) (R); Pain 0/10; 13:46 BP 123 / 84; Pulse 90; Resp 19; Pulse Ox 95% on R/A; rb1 14:30 BP 130 / 90; Pulse 91; Resp 18; Pulse Ox 93% on R/A; rb1 15:30 BP 128 / 90; Pulse 83; Resp 17; Pulse Ox 95% on R/A; rb1 16:30 BP 113 / 69; Pulse 82; Resp 20; Pulse Ox 95% on R/A; rb1 17:30 BP 116 / 85; Pulse 81; Resp 19; Pulse Ox 100% on R/A; rb1 12:47 Body Mass Index 48.42 (136.08 kg, 167.64 cm) aj1 MDM: 14:01 Patient medically screened. [facility] 16:44 Data reviewed: vital signs, nurses notes, lab test result(s), EKG, radiologic studies, [facility] CT scan, plain films. 07/31 14:00 Order name: Basic Metabolic Panel; Complete Time: 15:20 [facility] 07/31 14:00 Order name: CBC with Diff; Complete Time: 15:20 [facility] 07/31 14:00 Order name: LFT's; Complete Time: 15:20 [facility] 07/31 14:00 Order name: Magnesium; Complete Time: 15:20 [facility] 07/31 14:00 Order name: NT PRO-BNP; Complete Time: 15:20 [facility] 07/31 14:00 Order name: PT-INR; Complete Time: 15:20 [facility] 07/31 14:00 Order name: Troponin (emerg Dept Use Only); Complete Time: 15:20 [facility] 07/31 14:00 Order name: XRAY Chest (1 view); Complete Time: 15:20 [facility] 07/31 14:00 Order name: CT Abd/Pelvis - W/Contrast; Complete Time: 16:42 [facility] 07/31 14:00 Order name: Lipase; Complete Time: 15:20 [facility] 07/31 14:58 Order name: Glucose, Ancillary Testing; Complete Time: 15:20 EDMS 07/31 15:49 Order name: ABG; Complete Time: 16:42 [facility] 07/31 14:00 Order name: EKG; Complete Time: 14:01 [facility] 07/31 14:00 Order name: Cardiac monitoring; Complete Time: 17:50 [facility] 07/31 14:00 Order name: EKG - Nurse/Tech; Complete Time: 15:59 [facility] 07/31 14:00 Order name: IV Saline Lock; Complete Time: 15:40 [facility] 07/31 14:00 Order name: Labs collected and sent; Complete Time: 15:40 [facility] 07/31 14:00 Order name: O2 Per Protocol; Complete Time: 15:40 [facility] 07/31 14:00 Order name: O2 Sat Monitoring; Complete Time: 15:40 [facility] 07/31 16:52 Order name: CONS Physician Consult EDMS Administered Medications: 14:15 Drug: NS 0.9% 1000 ml Route: IV; Rate: 1 bolus; Site: left antecubital; rb1 15:22 Follow up: IV Status: Completed infusion rb1 14:25 Drug: Flagyl 500 mg Volume: 100 ml; Route: IVPB; Rate: 200 ml/hr; Infused Over: 30 rb1 mins; Site: left antecubital; 15:11 Follow up: Response: No adverse reaction; IV Status: Completed infusion rb1 15:05 Drug: morphine 4 mg Route: IVP; Site: left antecubital; rb1 15:30 Follow up: Response: No adverse reaction; Pain is decreased rb1 15:06 Drug: Zofran 4 mg Route: IVP; Site: left antecubital; rb1 15:30 Follow up: Response: No adverse reaction rb1 15:39 Drug: levofloxacin 500 mg Volume: 100 ml; Route: IVPB; Infused Over: 60 mins; Site: rb1 left antecubital; 17:35 Follow up: Response: No adverse reaction; IV Status: Completed infusion; Pt. was taken rb1 off the infusion to go for testing. 17:20 Drug: Xopenex 3.75 mg Route: Inhalation; rb1 17:20 Drug: AtroVENT Aerosol 0.5 mg Route: Inhalation; rb1 17:20 Drug: SOLU-Medrol 125 mg Route: IVP; Site: left antecubital; rb1 17:50 Follow up: Response: No adverse reaction rb1 Point of Care Testing: Blood Glucose: 14:18 Blood Glucose: 139 mg/dL; rb1 Ranges: Critical Glucose Levels:Adult <50 mg/dl or >400 mg/dl <40 mg/dl or >180 mg/dl Disposition: 07/31/18 16:59 Discharged to Home. Impression: Obesity, unspecified, Chronic obstructive pulmonary disease, unspecified, Type 1 diabetes mellitus, Rectal polyp. - Condition is Stable. - Discharge Instructions: Chronic Bronchitis, Type 1 Diabetes Mellitus, Diagnosis, Adult, How to Use an Inhaler, Obesity, Adult, How to Take a Sitz Bath, Type 1 Diabetes Mellitus, Self Care, Adult, Type 1 Diabetes Mellitus, Diagnosis, Adult, [id number], Type 1 Diabetes Mellitus, Self Care, Adult, [id number]. - Prescriptions for Levaquin 500 mg Oral Tablet - take 1 tablet by ORAL route once daily for 7 days; 7 tablet. Medrol (Mervin) 4 mg Oral Tablets, Dose Pack - take 1 tablet by ORAL route as directed - follow package instructions; 1 packet. Albuterol Sulfate 90 mcg/actuation - inhale 1-2 puff by INHALATION route every 4-6 hours; 1 Inhaler. - Medication Reconciliation Form, Thank You Letter, Antibiotic Education, Prescription Opioid Use form. - Follow up: Private Physician; When: 2 - 3 days; Reason: Recheck today's complaints, Continuance of care, Re-evaluation by your physician. Follow up: Fredrick Austin MD; When: 2 - 3 days; Reason: Recheck today's complaints, Re-evaluation by your physician. - Problem is new. - Symptoms have improved. Signatures: Dispatcher [employer] EDGeorgia Virgen, RN RN aj1 Heladio Veras MD MD cha Barber, Rebecca, RN RN rb1 Corrections: (The following items were deleted from the chart) 16:48 16:47 Hospitalization Ordered by Jose Carpio MD for Inpatient Admission. Preliminary bridger diagnosis is Obesity, unspecified; Chronic obstructive pulmonary disease with (acute) exacerbation; Type 1 diabetes mellitus. Bed requested for Telemetry/MedSurg (observation). Status is Inpatient Admission. Condition is Stable. Problem is new. Symptoms have improved. UTI on Admission? No. bridger 16:57 16:48 07/31/2018 16:47 Hospitalization Ordered by Jose Carpio MD for Inpatient bridger Admission. Preliminary diagnosis is Obesity, unspecified; Chronic obstructive pulmonary disease with (acute) exacerbation; Type 1 diabetes mellitus; Rectal polyp. Bed requested for Telemetry/MedSurg (observation). Status is Inpatient Admission. Condition is Stable. Problem is new. Symptoms have improved. UTI on Admission? No. bridger 18:33 16:59 07/31/2018 16:59 Discharged to Home. Impression: Obesity, unspecified; Chronic rb1 obstructive pulmonary disease, unspecified; Type 1 diabetes mellitus; Rectal polyp. Condition is Stable. Forms are Medication Reconciliation Form, Thank You Letter, Antibiotic Education, Prescription Opioid Use. Follow up: Private Physician; When: 2 - 3 days; Reason: Recheck today's complaints, Continuance of care, Re-evaluation by your physician. Follow up: Fredrick Austin; When: 2 - 3 days; Reason: Recheck today's complaints, Re-evaluation by your physician. Problem is new. Symptoms have improved. bridger
[2018-07-31] MEDS ORDERED: D50W 25 GM/50 ML SYRINGE IV PRN (16:51)
[2018-07-31] MEDS ORDERED: GLUCAGON 1 MG/VIAL IM PRN (16:51)
[2018-07-31] MEDS ORDERED: ENOXAPARIN 40 MG/0.4 ML SQ SCH (17:00)
[2018-07-31] MEDS ORDERED: IPRATROPIUM BROM 0.5MG/2.5ML ONE (17:21)
[2018-07-31] MEDS ORDERED: METHYLPREDNISOLONE 125 MG INJ ONE (17:21)
[2018-07-31] MEDS ORDERED: LEVALBUTEROL 1.25 MG/3 ML NEB ONE (17:22)
--- NOTE | 2018-07-31 18:01 | P.PN ---
Date of Service: 07/31/18 Consulted from the ER for admission regarding respiratory issues. Patient is a 62-year-old male with chronic respiratory insufficiency COPD who sees pulmonology as an outpatient comes into the ER for rectal pain patient was diagnosed with hemorrhoids. Does not complain of any shortness of breath. He remains at his baseline. Patient vital signs are stable labs do not show any elevated white count no signs of sepsis. Patient's ABG is similar to previous he is a chronic CO2 retainer. 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 Patient needs to follow up with pulmonology as an outpatient as scheduled. Recommend discharging home. Spoke with ER physician and he agreed. Labs reviewed Physical exam Vital signs stable afebrile General awake alert oriented no acute distress CV S1-S2 no murmurs Respiratory moving air well bilaterally no wheezing Gastrointestinal abdomen soft nontender nondistended positive bowel sounds Extremities no clubbing cyanosis edema Neuro nonfocal Chest x-ray Linear subsegmental atelectasis is present in both lung bases, chronic. The lungs are otherwise clear. The heart is normal in size. No displaced fractures. IMPRESSION: Chronic bibasilar atelectasis. CT abdomen shows no acute abnormality
[2018-07-31 18:38] VITALS: TEMP 97
[2018-07-31 18:44] VITALS: BP 116/85; O2SAT 100
[2018-07-31] MEDS ORDERED: INSULIN -REGULAR HUMAN 50 UNIT/0.5 ML ML SQ SCH (21:00)
--- NOTE | 2018-08-01 06:53 | EKG ---
Test Date: 2018-07-31 Test Time: 14:18:13 Machine Slat Basket Maker: MARILIA MEASUREMENT RESULTS: Intervals: Rate: 93 [place]: 150 QRSD: 80 QT: 366 QTc: 455 [place]: P: 17 [place]: 150 QRS: -18 T: 37 INTERPRETIVE STATEMENTS: Normal sinus rhythm Normal ECG Compared to ECG 07/03/2018 15:49:29 No significant changes Electronically Signed On 08-01-18 06:50:48 CDT by Shashi Jin
== END 2018-07-31 18:33 | disposition home or self-care (01) ==
LOC: ER 12:18
DX: K62.1 Rectal polyp (principal); J44.9 Chronic obstructive pulmonary disease, unspecified; E10.9 Type 1 diabetes mellitus without complications; E66.9 Obesity, unspecified; I10 Essential (primary) hypertension; E78.00 Pure hypercholesterolemia, unspecified; F41.9 Anxiety disorder, unspecified; Z79.4 Long term (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 of insulin; Z88.6 Allergy status to analgesic agent
CPT/HCPCS: 36415; 71045; 74177; 80048; 80076; 82805; 82962; 83690; 83735; 83880; 84484; 85025; 85610; 93005; J2405; J2930; J7030; Q9967; 96365; 96366; 96367; 96375; 99285

== ENCOUNTER 2018-08-22 13:14 | Observation (INO) | payer MEDICARE, SELFPAY ==
--- OUTSIDE RECORDS SUMMARY | 2018-08-22 13:17 | XMS REPORT | Clinical Summary ---
:1955 Author Organization [facility] Address [address] [place] [address] Care Team Providers Name Role Phone Bebeto [...] complication, with long-term current use of insulin ([facility]) enalapril (VASOTEC) Take 1 tablet 90 tablet 1 07/19/2017 Active 20 MG (20 mg total) tabletIndications: by mouth daily. Benign essential hypertension blood sugar Check glucose 4 400 strip 3 08/11/2017 Active diagnostic strips times a day (ONETOUCH VERIO) strip test stripsIndications: Type 2 diabetes mellitus with complication, with long-term current use of insulin ([facility]) insulin GLARGINE Inject 70 Units 22.5 mL 1 08/14/2017 Active (TOUJEO SOLOSTAR) under the skin 300 unit/mL (1.5 mL) daily. insulin penIndications: Type 2 diabetes mellitus with complication, with long-term current use of insulin ([facility]) insulin Use 1 syringe 270 each 1 [...] complication, with long-term current use of insulin ([facility]) insulin lispro Inject 35 Units 105 mL 3 04/28/2017 03/20/20 Discontinued (HumaLOG KwikPen) under the skin 18 100 unit/mL 3 (three) times injection a day before penIndications: meals. 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, with long-term current use of insulin atorvastatin Take 20 mg by 07/25/20 Discontinued [...] Visit Endocrinology Kimi Jack, Uncontrolled type 2 MD diabetes mellitus with complication, unspecified assisted insulin use status (Primary Dx) 06/14/2018 Documentation Endocrinology Susanna Laboy, LUIS MIGUEL 05/22/2018 Orders Only Endocrinology Susanna Laboy, LUIS MIGUEL 05/17/2018 Documentation Endocrinology Susanna Laboy, MA 03/22/2018 Documentation Endocrinology Susanna Laboy, MA 03/22/2018 Orders Only Endocrinology Susanna Laboy, LUIS [...] of insulin (Primary Dx); Osteopenia, unspecified location after 08/21/2017 Family History Medical History Relation Name Comments [...] 36.2 C (97.1 F) 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 Respiratory Rate - - Oxygen Saturation 92% 07/25/2018 9:08 AM CDT Inhaled Oxygen Concentration - - Weight 114 kg (250 lb 6.4 oz) 07/25/2018 9:08 AM CDT Height 170.2 cm (5' 7") 07/25/2018 9:08 AM CDT Body Mass Index 39.22 07/25/2018 9:08 AM CDT Plan of Treatment Date Type Specialty Care Team Description 11/19/2018 Office Visit Endocrinology Kimi Jack MD [address] [address] Health Maintenance Due Date Last Done Comments COLON CANCER SCREENING 2003 SHINGRIX VACCINE (#1) 2003 ZOSTER VACCINE 2013 DIABETIC FOOT EXAM 10/10/2017 10/10/2016, 10/10/2016, 07/18/2016 INFLUENZA VACCINE 05/30/2018 07/27/2017, 07/13/2016 PNEUMOCOCCAL-13 2018 URINE MICROALBUMIN 07/19/2019 07/19/2018, 01/07/2017, 01/07/2017, Additional history exists DIABETIC RETINAL EYE EXAM 03/20/2020 03/20/2018, 04/28/2017, 04/28/2016 PNEUMOCOCCAL POLYSACCHARIDE VACCINE Completed 09/29/2017 AGE 65 AND OVER Procedures Procedure Name Priority Date/Time Associated Diagnosis [...] procedure are in 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 long-term current use of insulin after 08/21/2017 Results Microalbumin / creatinine urine ratio (07/19/2018 7:17 AM) Creatinine, urine, 137 20 - 320 mg/dL [facility] Microalbumin, urine 0.6 See Note: mg/dL [facility] Comment: MADRID Reference Range: Reference Range Not established Microalbumin/creatini 4 <30 mcg/mg creat [facility] ne ratio Comment: MADRID The ADA defines abnormalities in albumin excretion as follows: Category Result (mcg/mg creatinine) Normal<30 Microalbuminuria 30-299 Clinical albuminuria > OS=580 The ADA recommends that at least two of three specimens collected within a 3-6 month period be abnormal before considering a patient to be within a diagnostic category. Narrative Performed At FASTING:YES [facility] FASTING: YES Other Results Text Performing Organization Information: Site ID: [id number] Name: [facility] Address: [address] [place] [id number] Director: Mitzi Lyons Performing Organization Address City/State/Zipcode Phone Number [phone] [address] Vitamin D 25 hydroxy level (07/19/2018 7:17 AM) Vitamin D, 25-hydroxy 19 (L) 30 - 100 ng/mL [facility] Comment: MADRID Vitamin D Status 25-OH Vitamin D: Deficiency:<20 ng/mL Insufficiency: 20 - 29 ng/mL Optimal: > or=30 ng/mL For 25-OH Vitamin D testing on patients on D2-supplementation and patients for whom quantitation of D2 and D3 fractions is required, the QuestAssureD(TM) 25-OH VIT D, (D2,D3), LC/MS/MS is recommended: order code 05226 (patients >2yrs). For more information on this test, go to: http://education.NoiseToys/faq/BVA125 (This link is being provided for informational/educational purposes only.) Narrative Performed At FASTING:YES [facility] FASTING: YES Other Results Text Performing Organization Information: Site ID: [id number] Name: [facility] Address: [address] [place] [id number] Director: Mitzi Lyons Performing Organization Address [facility] [place] [phone] [place] [address] Hemoglobin A1c (07/19/2018 7:17 AM) Hemoglobin A1C 8.0 (H) <5.7 % of total [facility] Comment: b MADRID For someone without known diabetes, a hemoglobin [...] children. Specimen Blood Narrative Performed At FASTING:YES [facility] FASTING: YES Other Results Text Performing Organization Information: Site ID: [id number] Name: [facility] Address: [address] [place] [phone] Director: Mitzi Lyons Performing Organization Address [facility] Phone Number [phone] [place] [phone] Lipid panel (07/19/2018 7:17 AM) Cholesterol, total 189 <200 mg/dL [facility] HDL cholesterol 38 (L) >40 mg/dL [facility] Triglycerides 262 (H) <150 mg/dL [facility] LDL cholesterol 114 (H) mg/dL (calc) [facility] calculated Comment: MADRID Reference range: <100 Desirable range <100 mg/dL for primary prevention; <70 mg/dL for patients with CHD or diabetic patients with > or=2 CHD risk factors. LDL-C is now calculated using the Bud calculation, which is a validated novel method providing better accuracy than the Friedewald equation in the estimation of LDL-C. Pillo SS et al. BRENDA. 2013;310(53): 4642-2369 (http://education.Autocosta/faq/LHW314) Cholesterol/HDL ratio 5.0 (H) <5.0 (calc) [facility] Non-HDL cholesterol 151 (H) <130 mg/dL [facility][1] Comment: (calc) MADRID For patients with diabetes plus 1 major ASCVD risk factor, treating to a non-HDL-C goal of <100 mg/dL (LDL-C of <70 mg/dL) is considered a therapeutic option. Specimen Blood Narrative Performed At FASTING:YES [facility] FASTING: YES Other Results Text Performing Organization Information: Site ID: RGA Name: [facility] Address: [address] [place] [phone] Director: Mitzi Lyons Performing Organization Address City/State/Zipcode Phone [place] [address] Comprehensive metabolic panel (07/19/2018 7:17 AM) Glucose 107 (H) 65 - 99 mg/dL [facility][1] Comment: MADRID Fasting reference interval For someone without known diabetes, a glucose value between 100 and 125 mg/dL is consistent with prediabetes and should be confirmed with a follow-up test. BUN, whole blood 33 (H) 7 - 25 mg/dL [facility] Creatinine 0.93 0.70 - 1.25 [facility][1] Comment: mg/dL MADRID For patients >49 years of age, the reference limit for Creatinine is approximately 13% higher for people identified as -Jamaican. EGFR Non-Afr. Jamaican 86 > OR=60 [facility] mL/min/1.73m2 MADRID EGFR 100 > OR=60 [facility] mL/min/1.73m2 [place]ID BUN/creatinine ratio 35 (H) 6 - 22 (calc) [facility] Sodium 139 135 - 146 mmol/L [facility] M[place]RID Potassium 4.4 3.5 - 5.3 mmol/L [facility] M[place]ID Chloride 105 98 - 110 mmol/L [facility] M[place] CO2 27 20 - 32 mmol/L [facility] M[place]ID Calcium 9.6 8.6 - 10.3 mg/dL [facility] [place] Protein 6.8 6.1 - 8.1 g/dL [facility] [place] Albumin, S 4.2 3.6 - 5.1 g/dL [facility] Globulin, total 2.6 1.9 - 3.7 g/dL [facility] (calc) MADRID Albumin/globulin ratio 1.6 1.0 - 2.5 (calc) [facility] Total bilirubin 0.4 0.2 - 1.2 mg/dL [facility] Alkaline phosphatase 46 40 - 115 U/L [facility] AST 21 10 - 35 U/L [facility] ALT 26 9 - 46 U/L [facility] Specimen Blood Narrative Performed At FASTING:YES [facility] FASTING: YES Other Results Text Performing Organization Information: Site ID: [id number] Name: [facility] Address: [address] [place] [phone] Director: Mitzi Lyons Performing Organization Address City/State/Zipcode Phone Number [place] [phone] POC glycosylated hemoglobin (Hb A1C) (03/20/2018 10:34 AM)Only the most recent of2 resultswithin the time period is included. POC Hemoglobin A1C 8.6 % Specimen Blood POC glucose (03/20/2018 10:34 AM)Only the most recent of2 resultswithin the time period is included. POC glucose 136Comment: non fasting 65 - 100 Specimen Blood Bone Density (03/20/2018 10:09 AM) Narrative Performed At [facility] [address] [facility]. [address] [place] [address] Bone Density Report Name: Garrison uBrnett Sex: Male Age: 62 Ethnicity: White Height: 64.0 in Referring Provider: KIMI JACK Date of : 1955 Weight: 249.8lb Indication: History of glucocorticoids Accession number: [id number] Bone Density: Exam date 03/20/2018 Region BMD [...] AM. Performing Organization Address City/State/Zipcode Phone Number [facility] [address] [place] [address] after 08/21/2017 Insurance Payer Benefit Plan / Group Subscriber ID Type Phone Address [facility] MEDICARE AARP MEDICARE COMPLETE [facility] xxxxxxxxx [facility]
[2018-08-22] MEDS ORDERED: NA CHLORIDE 0.9% 1,000 ML ONE ×2 (14:11→17:28)
[2018-08-22 14:25] LABS: Absolute Lymphocytes (CBC) 2.1 K/uL (0.7-4.9); Absolute Monocytes 0.6 K/uL (0.1-1.3); Absolute Neutrophil 5.9 K/uL (1.8-8.0); Basophils % 0.6 % (0-1.3); Eosinophils % 0.9 % (0-4.4); Hematocrit 42.9 % (39.6-49.0); Lymphocytes % 23.7 % (15.3-44.8); MCH 30.8 pg (27.0-35.0); MCV 89.9 fL (80-100); Monocytes % 6.5 % (3.3-12.3); RBC Red Blood Cell Count 4.77 M/uL (4.33-5.43)
[2018-08-22 14:37] LABS: Albumin 3.9 g/dL (3.4-5.0); Bilirubin Direct 0.1 mg/dL (0-0.2); Bilirubin Total 0.5 mg/dL (0.2-1.0); Potassium 4.5 mmol/L (3.5-5.1); Protein, Total 7.6 g/dL (6.4-8.2)
--- NOTE | 2018-08-22 16:46 | RAD REPORT ---
EXAM DESCRIPTION: CT - Abdomen Pelvis W Contrast - 08/22/2018 4:29 pm CLINICAL HISTORY: Abdominal pain with diarrhea for 2 days COMPARISON: July 31, 2018 TECHNIQUE: Computed axial tomography of the abdomen pelvis was obtained. 100 cc Isovue-300 was admin istered intravenously. Oral contrast was not requested which limits evaluation of bowel. All CT scans are performed using dose optimization technique as appropriate and may include automated exposure control or mA/KV adjustment according to patient size. FINDINGS: Fatty infiltration liver is present. Gallbladder is been removed Spleen, pancreas, adrenal and left kidney appear unremarkable. Mild right hydronephrosis is present. Right ureter is normal caliber. Extrarenal pelvis is seen There is no evidence of diverticulitis. Appendix is normal. Spondylosis involves lumbar spine resulting in spinal stenosis. Small periumbilical hernia seen. Small ventral hernia within the mid to upper abdomen is seen IMPRESSION: Mild right hydronephrosis may be secondary to a mild UPJ stricture
[2018-08-22 16:49] LABS: Arterial Blood Carboxyhemoglob 0.9 % (0-1.5); Blood Gas Oxyhemoglobin 94.1 % (94-97)
--- NOTE | 2018-08-22 16:54 | RAD REPORT ---
EXAM DESCRIPTION: [facility]08/22/2018 4:24 pm CLINICAL HISTORY: sob COMPARISON: July 31, 2018 FINDINGS: Mild right basilar atelectasis is present. The left lung appears clear of acute infiltrate . The heart is normal size
[2018-08-22 17:39] LABS: Urine Blood NEGATIVE (NEG); Urine Glucose 1+ (NEG); Urine Protein NEGATIVE (NEG); Urine pH 5.5 (5.0-7.0)
--- NOTE | 2018-08-22 17:41 | ER ---
Nurse's Notes [facility] Name: Asim Burnett Age: 63 yrs Sex: Male : 1955 Arrival Date: 08/22/2018 Time: 13:15 Bed 25 Private MD: Bebeto Jaffe H Diagnosis: Dehydration;Acidosis;Diarrhea, unspecified Presentation: 08/22 13:32 Presenting complaint: Patient states: i have had diarrhea for 2 days and i feel weak, i tw2 had an accident and pooped myself and dr. kennedy, he told me to come here. Transition of care: patient was not received from another setting of care. Onset of symptoms was August 22, 2018. Risk Assessment: Do you want to hurt yourself or someone else? Patient reports no desire to harm self or others. Initial Sepsis Screen: Does the patient meet any 2 criteria? HR > 90 bpm. Does the patient have a suspected source of infection?. Care prior to arrival: None. 13:32 Method Of Arrival: Wheelchair tw2 13:32 Acuity: ORACIO 3 tw2 Historical: - Allergies: 13:56 Ibuprofen; tw2 - Home Meds: 13:56 Humalog 100 unit/mL Sub-Q soln 24 unit three times a day [Active]; Abilify 5 mg Oral tw2 tab 1 tab once daily [Active]; Albuterol Inhl [Active]; amlodipine 5 mg tab 1 tab once daily [Active]; clonazepam 1 mg Oral tab 1 tab QID PRN [Active]; Toujeo SoloStar 300 unit/mL (1.5 mL) subcutaneous inpn 50 unit nightly [Active]; symbicort [Active]; trazodone 50 mg Oral tab 1 tab nightly [Active]; oxycodone-acetaminophen 10-325 mg Oral tab 1 tab twice a day [Active]; spironolactone 25 mg Oral tab 1 tab once daily [Active]; lansoprazole 30 mg Oral cpDR 1 cap once daily [Active]; metformin 1,000 mg Oral TG24 1 tab 2 times per day [Active]; enalapril maleate 20 mg Oral tab 1 tab once daily [Active]; fenofibrate 160 mg Oral tab 1 tab once daily [Active]; - PMHx: 13:56 Anxiety; Hypertension; High Cholesterol; Diabetes - IDDM; Depression; COPD; tw2 - PSHx: 13:56 None; tw2 - Immunization history:: Adult Immunizations. - Social history:: Smoking status: . - Ebola Screening: : Patient denies travel to an Ebola-affected area in the 21 days before illness onset. Screenin:08 Abuse screen: Denies threats or abuse. Nutritional screening: No deficits noted. tw2 Tuberculosis screening: No symptoms or risk factors identified. Fall Risk None identified. Assessment: 13:35 General: Appears in no apparent distress. obese, Behavior is drowsy. Pain: Denies pain. tw2 Neuro: Level of Consciousness is obeys commands, drowsy. Oriented to person, place, situation. Neuro: Cardiovascular: Reports shortness of breath, Denies chest pain, Heart tones S1 S2 Capillary refill < 3 seconds Patient's skin is warm and dry. Cardiovascular: Edema is 2+ to left midcalf, left ankle, left foot, right midcalf, right ankle and right foot. Respiratory: Airway is patent Respiratory effort is even, unlabored, Respiratory pattern is regular, symmetrical, Breath sounds are clear bilaterally. GI: Abdomen is round non-distended, obese, Bowel sounds present X 4 quads. : No signs and/or symptoms were reported regarding the genitourinary system. EENT: No signs and/or symptoms were reported regarding the EENT system. Derm: No signs and/or symptoms reported regarding the dermatologic system. Musculoskeletal: Range of motion: intact in all extremities. 13:49 Reassessment: pt cleaned at this time, MILLA Ca and Samantha Ulrich assisted in cleaning pt, tw2 pt NAD, 97% on 3.5L at this time.. 14:35 Reassessment: Patient appears in no apparent distress at this time. No changes from tw2 previously documented assessment. Patient and/or family updated on plan of care and expected duration. Pain level reassessed. 15:08 Reassessment: Patient appears in no apparent distress at this time. No changes from tw2 previously documented assessment. Patient and/or family updated on plan of care and expected duration. Pain level reassessed. 16:00 Reassessment: Patient appears in no apparent distress at this time. No changes from tw2 previously documented assessment. Patient and/or family updated on plan of care and expected duration. Pain level reassessed. 16:50 Reassessment: Patient appears in no apparent distress at this time. No changes from tw2 previously documented assessment. Patient and/or family updated on plan of care and expected duration. Pain level reassessed. 17:32 Reassessment: Patient appears in no apparent distress at this time. No changes from tw2 previously documented assessment. Patient and/or family updated on plan of care and expected duration. Pain level reassessed. 18:25 Reassessment: Patient appears in no apparent distress at this time. No changes from tw2 previously documented assessment. Patient and/or family updated on plan of care and expected duration. Pain level reassessed. pt had got to the side of the bed to urinate, urinated on the floor, house keeping to clean room, new brief and gown given to pt. 19:08 Reassessment: Patient appears in no apparent distress at this time. Patient and/or jb4 family updated on plan of care and expected duration. Pain level reassessed. PT is drowsy, Oriented x3, respirations are even and unlabored. Is resting in bed. 20:42 Reassessment: Patient appears in no apparent distress at this time. No changes from jb4 previously documented assessment. Patient and/or family updated on plan of care and expected duration. Pain level reassessed. Vital Signs: 13:33 BP 125 / 96; Pulse 96; Resp 18; Temp 99.3(O); Pulse Ox 92% on R/A; Pain 0/10; tw2 14:00 BP 131 / 88; Pulse 91; Resp 17; Pulse Ox 97% on 3.5 lpm NC; tw2 15:07 BP 134 / 92; Pulse 86; Resp 18; Temp 97.9(O); Pulse Ox 100% on 3.5 lpm NC; tw2 16:00 BP 148 / 110; Pulse 96; Resp 17; Pulse Ox 98% on 3.5 lpm NC; tw2 16:49 BP 135 / 87; Pulse 79; Resp 17; Pulse Ox 98% on 3.5 lpm NC; tw2 17:32 BP 104 / 72; Pulse 77; Resp 17; Pulse Ox 99% on 3.5 lpm NC; tw2 18:23 BP 130 / 89; Pulse 77; Resp 19; Pulse Ox 100% on 3.5 lpm NC; tw2 19:08 BP 135 / 89; Pulse 76; Resp 18; Pulse Ox 98% on 3.5 lpm NC; jb4 20:42 BP 113 / 67; Pulse 76; Resp 16; Pulse Ox 100% on 3.5 lpm NC; jb4 13:33 pt states "i use 3L oxygen at home but i dont have it with me today" tw2 ED Course: 13:15 Patient arrived in ED. as 13:16 Bebeto Jaffe DO is Private Physician. as 13:32 Abigail Keita, MILLA is Primary Nurse. tw2 13:33 Triage completed. tw2 13:33 Arm band placed on. tw2 13:34 Bed in low position. Call light in reach. plastic press operator on. Pulse ox on. NIBP on. tw2 13:40 Cleaned of incontinence. Linen changed. jp3 13:52 Reji Santoro PA is PHCP. jr8 13:52 Surjit Unger MD is Attending Physician. jr8 14:00 Initial lab(s) drawn, by me, sent to lab. jp3 14:05 Inserted saline lock: 20 gauge in left antecubital area, using aseptic technique. Blood jp3 collected. 14:06 Basic Metabolic Panel Sent. jp3 14:06 CBC with Diff Sent. jp3 14:06 Creatinine for Radiology Sent. jp3 14:06 Hepatic Function Sent. jp3 14:06 Lipase Sent. jp3 16:[address] vm2 16:22 X-ray completed. Portable x-ray completed in exam room. Patient tolerated procedure ls3 well. 16:23 XRAY Chest (1 view) In Process Unspecified. EDMS 16:30 CT Abd/Pelvis - W/Contrast In Process Unspecified. EDMS 17:20 Lactate Sent. tw2 17:20 UDS Sent. tw2 17:39 Wild Howard MD is Hospitalizing Provider. jr8 18:57 Report given to MILLA Cummins. tw2 21:10 No provider procedures requiring assistance completed. Patient admitted, IV remains in jb4 place. Administered Medications: 14:07 Drug: NS 0.9% 1000 ml Route: IV; Rate: 1000 ml; Site: left antecubital; tw2 16:00 Follow up: Response: No adverse reaction; IV Status: Completed infusion jb4 17:22 Drug: NS 0.9% 1000 ml Route: IV; Rate: 1000 ml; Site: left antecubital; tw2 18:22 Follow up: Response: No adverse reaction; IV Status: Completed infusion; IV Intake: tw2 1000ml 17:52 Drug: Cipro 500 mg Route: PO; tw2 18:22 Follow up: Response: No adverse reaction tw2 17:52 Drug: Flagyl 500 mg Route: PO; tw2 18:22 Follow up: Response: No adverse reaction tw2 Point of Care Testing: Blood Glucose: 14:00 Blood Glucose: 188 mg/dL; tw2 14:00 per Samantha Ulrich tw2 Ranges: Intake: 18:22 IV: 1000ml; Total: 1000ml. tw2 Outcome: 17:40 Decision to Hospitalize by Provider. dmitry 21:10 Admitted to Med/surg accompanied by samantha, via wheelchair, room 207, with oxygen, with jb4 chart, Report called to MILLA Bey 21:10 Condition: stable 21:10 Instructed on the need for admit, Demonstrated understanding of instructions. 21:14 Patient left the ED. jb4 Signatures: Dispatcher [employer] EDMS Darlin Gaona Josh, PA PA jr8 Abigail Keita RN RN tw2 Placido Payne, RN RN jb4 Crista Burger 2 Jb Crabtree jp3 Ander Eli ls3 Corrections: (The following items were deleted from the chart) 20:43 20:42 BP 113 / 67; Pulse 76bpm; Resp 16bpm; Pulse Ox 100% RA; jb4 jb4
--- NOTE | 2018-08-22 17:41 | EDPHYS ---
Physician Documentation [facility] Name: Asim Burnett Age: 63 yrs Sex: Male : 1955 Arrival Date: 08/22/2018 Time: 13:15 Bed 25 Private MD: Bebeto Jaffe H ED Physician Surjit Unger HPI: 08/22 21:43 This 63 yrs old Male presents to ER via Wheelchair with complaints of jr8 Diarrhea, Shortness Of Breath. 21:43 The patient presents to the emergency department with nausea, vomiting, diarrhea. jr8 Onset: The symptoms/episode began/occurred gradually, 2 day(s) ago. Possible causes: unknown. The symptoms are aggravated by nothing. The symptoms are alleviated by nothing. Associated signs and symptoms: Pertinent positives: shortness of breath. Severity of symptoms: At their worst the symptoms were moderate in the emergency department the symptoms are unchanged. The patient has not experienced similar symptoms in the past. The patient has been recently seen by a physician: the patient's primary care provider, with different complaint(s). Stated that he has had bowel incontinence and diarrhea for past couple of days. Came to ED after his eye doctor sent him over because he had another explosive diarrhea episode. Patient seems groggy when talking to him but can answer all questions appropriately . Historical: - Allergies: 13:56 Ibuprofen; tw2 - Home Meds: 13:56 Humalog 100 unit/mL Sub-Q soln 24 unit three times a day [Active]; Abilify 5 mg Oral tw2 tab 1 tab once daily [Active]; Albuterol Inhl [Active]; amlodipine 5 mg tab 1 tab once daily [Active]; clonazepam 1 mg Oral tab 1 tab QID PRN [Active]; Toujeo SoloStar 300 unit/mL (1.5 mL) subcutaneous inpn 50 unit nightly [Active]; symbicort [Active]; trazodone 50 mg Oral tab 1 tab nightly [Active]; oxycodone-acetaminophen 10-325 mg Oral tab 1 tab twice a day [Active]; spironolactone 25 mg Oral tab 1 tab once daily [Active]; lansoprazole 30 mg Oral cpDR 1 cap once daily [Active]; metformin 1,000 mg Oral TG24 1 tab 2 times per day [Active]; enalapril maleate 20 mg Oral tab 1 tab once daily [Active]; fenofibrate 160 mg Oral tab 1 tab once daily [Active]; - PMHx: 13:56 Anxiety; Hypertension; High Cholesterol; Diabetes - IDDM; Depression; COPD; tw2 - PSHx: 13:56 None; tw2 - Immunization history:: Adult Immunizations. - Social history:: Smoking status: . - Ebola Screening: : Patient denies travel to an Ebola-affected area in the 21 days before illness onset. ROS: 21:43 Eyes: Negative for injury, pain, redness, and discharge, ENT: Negative for injury, jr8 pain, and discharge, Neck: Negative for injury, pain, and swelling, Cardiovascular: Negative for chest pain, palpitations, and edema, Back: Negative for injury and pain, MS/Extremity: Negative for injury and deformity, Skin: Negative for injury, rash, and discoloration, Neuro: Negative for headache, weakness, numbness, tingling, and seizure. 21:43 Respiratory: Positive for shortness of breath. 21:43 Abdomen/GI: Positive for diarrhea, Negative for abdominal pain, nausea, vomiting. Exam: 21:43 Eyes: Pupils equal round and reactive to light, extra-ocular motions intact. Lids and jr8 lashes normal. Conjunctiva and sclera are non-icteric and not injected. Cornea within normal limits. Periorbital areas with no swelling, redness, or edema. ENT: Nares patent. No nasal discharge, no septal abnormalities noted. Tympanic membranes are normal and external auditory canals are clear. Oropharynx with no redness, swelling, or masses, exudates, or evidence of obstruction, uvula midline. Mucous membranes moist. Neck: Trachea midline, no thyromegaly or masses palpated, and no cervical lymphadenopathy. Supple, full range of motion without nuchal rigidity, or vertebral point tenderness. No Meningismus. Cardiovascular: Regular rate and rhythm with a normal S1 and S2. No gallops, murmurs, or rubs. Normal PMI, no JVD. No pulse deficits. Respiratory: Lungs have equal breath sounds bilaterally, clear to auscultation and percussion. No rales, rhonchi or wheezes noted. No increased work of breathing, no retractions or nasal flaring. Back: No spinal tenderness. No costovertebral tenderness. Full range of motion. Skin: Warm, dry with normal turgor. Normal color with no rashes, no lesions, and no evidence of cellulitis. MS/ Extremity: Pulses equal, no cyanosis. Neurovascular intact. Full, normal range of motion. Neuro: Awake and alert but sleepy. GCS 15, oriented to person, place, time, and situation. Cranial nerves II-XII grossly intact. Motor strength 5/5 in all extremities. Sensory grossly intact. 21:43 Abdomen/GI: Inspection: obese Bowel sounds: active, all quadrants, Palpation: soft, in all quadrants, mild abdominal tenderness, in the abdomen diffusely, mass, is not appreciated, rebound tenderness, is not appreciated, voluntary guarding, is not appreciated, involuntary guarding, is not appreciated, no appreciated organomegaly, Indicators: McBurney's point is not tender, Ty's sign is negative, Rovsing's sign is negative, Liver: tenderness, is not appreciated. Vital Signs: 13:33 BP 125 / 96; Pulse 96; Resp 18; Temp 99.3(O); Pulse Ox 92% on R/A; Pain 0/10; tw2 14:00 BP 131 / 88; Pulse 91; Resp 17; Pulse Ox 97% on 3.5 lpm NC; tw2 15:07 BP 134 / 92; Pulse 86; Resp 18; Temp 97.9(O); Pulse Ox 100% on 3.5 lpm NC; tw2 16:00 BP 148 / 110; Pulse 96; Resp 17; Pulse Ox 98% on 3.5 lpm NC; tw2 16:49 BP 135 / 87; Pulse 79; Resp 17; Pulse Ox 98% on 3.5 lpm NC; tw2 17:32 BP 104 / 72; Pulse 77; Resp 17; Pulse Ox 99% on 3.5 lpm NC; tw2 18:23 BP 130 / 89; Pulse 77; Resp 19; Pulse Ox 100% on 3.5 lpm NC; tw2 19:08 BP 135 / 89; Pulse 76; Resp 18; Pulse Ox 98% on 3.5 lpm NC; jb4 20:42 BP 113 / 67; Pulse 76; Resp 16; Pulse Ox 100% on 3.5 lpm NC; jb4 13:33 pt states "i use 3L oxygen at home but i dont have it with me today" tw2 MDM: 13:52 Patient medically screened. 8 17:38 Data reviewed: vital signs, nurses notes, lab test result(s), EKG, radiologic studies, jr8 CT scan, plain films, and as a result, I will admit patient. Data interpreted: Pulse oximetry: on room air is 99 %. Interpretation: normal. Counseling: I had a detailed discussion with the patient and/or guardian regarding: the historical points, exam findings, and any diagnostic results supporting the discharge/admit diagnosis, lab results, radiology results, the need for further work-up and treatment in the hospital. 08/22 13:52 Order name: Basic Metabolic Panel; Complete Time: 14:41 [facility] 08/22 13:52 Order name: CBC with Diff; Complete Time: 14:41 [facility] 08/22 13:52 Order name: Creatinine for Radiology; Complete Time: 14:41 [facility] 08/22 13:52 Order name: Hepatic Function; Complete Time: 14:41 [facility] 08/22 13:52 Order name: Lipase; Complete Time: 14:41 08/22 16:09 Order name: ABG [facility] 08/22 16:10 Order name: CT Abd/Pelvis - W/Contrast; Complete Time: 16:54 [facility] 08/22 16:10 Order name: XRAY Chest (1 view); Complete Time: 16:59 [facility] 08/22 16:41 Order name: Glucose, Ancillary Testing; Complete Time: 16:42 EDMS 08/22 16:59 Order name: UDS; Complete Time: 17:58 [facility] 08/22 16:59 Order name: Lactate; Complete Time: 17:58 8 08/22 17:14 Order name: Urine Dipstick--Ancillary (enter results); Complete Time: 17:41 bd 08/22 13:52 Order name: IV Saline Lock; Complete Time: 14:06 jr8 08/22 13:52 Order name: Labs collected and sent; Complete Time: 14:06 Administered Medications: 14:07 Drug: NS 0.9% 1000 ml Route: IV; Rate: 1000 ml; Site: left antecubital; tw2 16:00 Follow up: Response: No adverse reaction; IV Status: Completed infusion jb4 17:22 Drug: NS 0.9% 1000 ml Route: IV; Rate: 1000 ml; Site: left antecubital; tw2 18:22 Follow up: Response: No adverse reaction; IV Status: Completed infusion; IV Intake: tw2 1000ml 17:52 Drug: Cipro 500 mg Route: PO; tw2 18:22 Follow up: Response: No adverse reaction tw2 17:52 Drug: Flagyl 500 mg Route: PO; tw2 18:22 Follow up: Response: No adverse reaction tw2 Point of Care Testing: Blood Glucose: 14:00 Blood Glucose: 188 mg/dL; tw2 14:00 per Samantha Ulrich tw2 Ranges: Critical Glucose Levels:Adult <50 mg/dl or >400 mg/dl <40 mg/dl or >180 mg/dl Disposition: 08/22/18 17:40 Hospitalization ordered by Wild Howard for Observation. Preliminary diagnosis are Dehydration, Acidosis, Diarrhea, unspecified. - Bed requested for Telemetry/MedSurg (observation). - Status is Observation. jb4 - Condition is Stable. - Problem is new. - Symptoms are unchanged. UTI on Admission? No Signatures: Dispatcher [employer] EDMS Maria G Zamora RN RN aa1 Reji Santoro PA PA jr8 Abigail Keita RN RN tw2 Placido Payne RN RN jb4 Corrections: (The following items were deleted from the chart) 17:40 17:40 Hospitalization Ordered by Wild Howard MD for Observation. Preliminary diagnosis jr8 is Dehydration; Acidosis. Bed requested for Telemetry/MedSurg (observation). Status is Observation. Condition is Stable. Problem is new. Symptoms are unchanged. UTI on Admission? No. jr8 20:25 17:40 08/22/2018 17:40 Hospitalization Ordered by Wild Howard MD for Observation. aa1 Preliminary diagnosis is Dehydration; Acidosis; Diarrhea, unspecified. Bed requested for Telemetry/MedSurg (observation). Status is Observation. Condition is Stable. Problem is new. Symptoms are unchanged. UTI on Admission? No. jr8 21:14 20:25 08/22/2018 17:40 Hospitalization Ordered by Wild Howard MD for Observation. jb4 Preliminary diagnosis is Dehydration; Acidosis; Diarrhea, unspecified. Bed requested for Telemetry/MedSurg (observation). Status is Observation. Condition is Stable. Problem is new. Symptoms are unchanged. UTI on Admission? No. aa1
[2018-08-22 17:47] LABS: Barbiturates NEGATIVE (NEGATIVE); Benzodiazepines NEGATIVE (NEGATIVE); Cocaine NEGATIVE (NEGATIVE); METHAMPHETAM NEGATIVE (NEGATIVE); Methadone NEGATIVE (NEGATIVE); Opiates NEGATIVE (NEGATIVE); Phencyclidine NEGATIVE (NEGATIVE); THC Cannibis NEGATIVE (NEGATIVE)
[2018-08-22] MEDS ORDERED: metroNIDAZOLE 500 MG TABLET ONE (17:53)
[2018-08-22] MEDS ORDERED: CIPROFLOXACIN HCL 500 MG TAB ONE (17:53)
--- NOTE | 2018-08-22 20:29 | P.HP ---
Certification for Inpatient Patient admitted to: Observation With expected LOS: <2 Midnights Practitioner: I am a practitioner with admitting privileges, knowledge of patient current condition, hospital course, and medical plan of care. Services: Services provided to patient in accordance with Admission requirements found in Title 42 Section 412.3 of the Code of Federal Regulations Patient History Date of Service: 08/22/18 Reason for admission: Diarrhea, weakness History of Present Illness: Mr. Burnett is a 63-year-old male with history of diabetes mellitus type, hypertension, obesity, COPD on home oxygen, who according to his statement, he has been on oral antibiotic for 25 days prescribe it by his felt finisher due to an eye infection. He has finished his treatment about 3 days ago. He came to ER complaining of generalize weakness, but profuse diarrhea associated with nausea. He denied any blood in the stools but has had some mucus. He also stated that has had fever about 101.0F, in ER temp was 99.3. Lab work shows normal WBC count, creatinine and elevated but about his baseline, UA within normal limits, CT abdomen and pelvis showed right mild hydronephrosis, possible secondary to strictures other ways not acute abnormalities. Allergies ibuprofen Allergy (Intermediate, Verified 07/03/18 21:22) Hives/Rash Home medications list reviewed: Yes Home Medications: Albuterol Neb [Proventil 0.083% Neb Soln] 2.5 mg IH QIDP PRN 04/29/18 Fenofibrate 160 mg PO DAILY 04/29/18 Spironolactone 50 mg PO BID 04/29/18 Trazodone [Desyrel*] 50 mg PO BEDTIME 04/29/18 clonazePAM [Klonopin] 1 mg PO QIDP PRN 04/29/18 ARIPiprazole [Abilify*] 5 mg PO DAILY 06/09/18 Amlodipine [Norvasc*] 5 mg PO DAILY 06/09/18 Budesonide/Formoterol Fumarate [Symbicort 160-4.5 Mcg Inhaler] 2 puff IH BID 09/16 Enalapril Maleate [Vasotec] 20 mg PO DAILY 06/09/18 Gabapentin 600 mg PO TID 06/09/18 Lansoprazole [Prevacid] 30 mg PO DAILY 06/09/18 Metformin HCl 1,000 mg PO BID 06/09/18 Proair Hfa 90mcg/Inh 2 puff IH QIDP PRN 06/09/18 Ipratropium Neb [Atrovent*] 0.5 mg NEB Q4HP PRN #30 amp 06/13/18 Oxycodone HCl/Acetaminophen [Percocet 5/325 Tab*] 1 tab PO QIDP PRN tab predniSONE [Prednisone*] 20 mg PO BID #20 tab 06/13/18 Arformoterol Tartrate [Brovana] 15 mcg IH BID #60 ml 07/05/18 predniSONE [Deltasone*] 10 mg PO DAILY #40 tab 07/05/18 - Past Medical/Surgical History Diabetic: Yes -: IDDM -: Hypertension -: hyperlipidemia -: anxiety -: depression -: Gastroesophageal reflux disease -: Obstructive sleep apnea -: (home 02 4L) -: Pancreatic surgery -: cholecystectomy -: several back surgery -: 2008 ercp, punctured something in his pacreas, then transfered to -: [facility] for open exploratory lap, had feeding tube that has reversed -: trach from previous surgery at [facility] - Family History Father -: Heart disease, Diabetes Mother -: Heart disease, Hypertension, Lung disease, GI disease, Diabetes, Stroke, Liver disease, Kidney disease Brother -: Heart disease, Hypertension, Lung disease, Diabetes, Stroke, Liver disease, Kidney disease Notes: 2 brothers Sister -: Heart disease, GI disease Notes: no known illness - Social History Smoking Status: Former smoker Alcohol use: No CD- Drugs: No Caffeine use: Yes Place of Residence: Home Review of Systems 10-point ROS is otherwise unremarkable Physical Examination - Physical Exam General: Alert, In no apparent distress HEENT: Atraumatic, PERRLA, Mucous membr. moist/pink, EOMI, Sclerae nonicteric Neck: Supple, 2+ carotid pulse no bruit, No LAD, Without JVD or thyroid abnormality Respiratory: Normal air movement, Diminished Cardiovascular: Regular rate/rhythm, Normal S1 S2 Gastrointestinal: Normal bowel sounds, No tenderness Musculoskeletal: No tenderness Integumentary: No rashes Neurological: Normal speech, Normal strength at 5/5 x4 extr, Normal tone, Normal affect Lymphatics: No axilla or inguinal lymphadenopathy - Studies Laboratory Data (last 24 hrs) 08/22/18 14:00: Creatinine 1.00 08/22/18 14:00: WBC 8.7, Hgb 14.7, Hct 42.9, Plt Count 250 08/22/18 14:00: Sodium 138, Potassium 4.5, BUN 31 H, Creatinine 1.10, Glucose 188 H, Total Bilirubin 0.5, AST 23, ALT 33, Alkaline Phosphatase 44 L, Lipase 154 Assessment and Plan - Problems (Diagnosis) (1) Weakness Current Visit: Yes Status: Acute (2) Acute on chronic diastolic (congestive) heart failure Onset Date: 06/11/18 Current Visit: No Status: Acute (3) COPD exacerbation Onset Date: 08/11/16 Current Visit: No Status: Acute (4) Diarrhea Onset Date: 04/30/18 Current Visit: No Status: Acute Qualifiers: Diarrhea type: unspecified type Qualified Code(s): R19.7 - Diarrhea, unspecified (5) Diabetes mellitus Onset Date: 06/11/18 Current Visit: No Status: Chronic Qualifiers: Diabetes mellitus type: type 2 Diabetes mellitus extermination supervisor insulin use: without shelter use Diabetes mellitus complication status: with unspecified complications Qualified Code(s): E11.8 - Type 2 diabetes mellitus with unspecified complications (6) HTN (hypertension) Onset Date: 06/11/18 Current Visit: No Status: Chronic Qualifiers: Hypertension type: essential hypertension Qualified Code(s): I10 - Essential (primary) hypertension (7) Obesity Onset Date: 06/11/18 Current Visit: No Status: Chronic Qualifiers: Obesity type: unspecified obesity type Obesity classification: unspecified obesity classification - Plan The patient will be admitted to the hospital due to weakness secondary to diarrhea. Differential diagnosis includes acute gastroenteritis versus infectious diarrhea at like C diff since the patient has been in long-term antibiotics. At this point will order C diff screen, IV fluids, and symptomatic medication for nausea and vomiting. - Advance Directives Does patient have a Living Will: Yes Does patient have a Durable POA for Healthcare: No - Code Status/Comfort Care Code Status Assessed: Yes Code Status: Full Code
[2018-08-22] MEDS ORDERED: ACETAMINOPHEN 500 MG TAB PO PRN (21:03)
[2018-08-22] MEDS: INSULIN -REGULAR HUMAN 50 UNIT/0.5 ML ML SQ SCH (21:03)
[2018-08-22] MEDS ORDERED: GLUCAGON 1 MG/VIAL IM PRN (21:03)
[2018-08-22] MEDS ORDERED: D50W 25 GM/50 ML SYRINGE IV PRN (21:03)
[2018-08-22] MEDS ORDERED: ONDANSETRON 4 MG/2 ML VIAL IV PRN (21:03)
[2018-08-22 21:33] VITALS: BMI 39.3
[2018-08-22] MEDS: NA CHLORIDE 0.9% 1,000 ML IV SCH (22:12)
[2018-08-22] MEDS: ALBUTEROL 2.5 MG/3 ML NEB SOL NEB PRN (22:52)
[2018-08-22] MEDS: IPRATROPIUM BROM 0.5MG/2.5ML NEB PRN (22:53)
[2018-08-23 02:45] LABS: Urine Appearance CLEAR; Urine Bilirubin NEGATIVE (NEG); Urine Blood NEGATIVE (NEG); Urine Color YELLOW; Urine Glucose 3+ (NEG); Urine Protein NEGATIVE (NEG); Urine Specific Gravity 1.015 (1.005-1.030); Urine Urobilinogen 0.2 mg/dL (0.2-1.0)
[2018-08-23 03:27] LABS: Urine Microscopic Reflex NO UMIC
[2018-08-23] MEDS: Oxycodone HCl/Acetaminophen 1 TAB TAB PO PRN ×3 (04:02→20:46)
[2018-08-23 05:22] LABS: Absolute Lymphocytes (CBC) 2.3 K/uL (0.7-4.9); Absolute Monocytes 0.5 K/uL (0.1-1.3); Absolute Neutrophil 4.6 K/uL (1.8-8.0); Basophils % 0.6 % (0-1.3); Eosinophils % 1.2 % (0-4.4); Hematocrit 40.5 % (39.6-49.0); Lymphocytes % 30.3 % (15.3-44.8); MCH 30.2 pg (27.0-35.0); MCV 90.2 fL (80-100); MPV 7.9 fL (7.6-11.3); Monocytes % 6.9 % (3.3-12.3); RBC Red Blood Cell Count 4.49 M/uL (4.33-5.43)
[2018-08-23 05:31] LABS: BUN Blood Urea Nitrogen 16 mg/dL (7-18); Bicarbonate 25 mmol/L (21-32); Glucose Level 129 mg/dL (74-106); Magnesium 1.7 mg/dL (1.8-2.4); Potassium 4.5 mmol/L (3.5-5.1); Sodium Level 141 mmol/L (136-145)
[2018-08-23] MEDS ORDERED: MAGNESIUM SULFATE 1 gm IVPB 1 GM/100 ML BAG IV ONE (05:42)
[2018-08-23] MEDS: IPRATROPIUM BROM 0.5MG/2.5ML NEB PRN ×2 (06:09→20:10)
[2018-08-23] MEDS: ALBUTEROL 2.5 MG/3 ML NEB SOL NEB PRN (06:09)
[2018-08-23] MEDS: INSULIN -REGULAR HUMAN 50 UNIT/0.5 ML ML SQ SCH ×4 (07:30→21:00)
[2018-08-23] MEDS ORDERED: Oxycodone HCl/Acetaminophen 1 TAB TAB PO SCH (09:00)
[2018-08-23] MEDS: NA CHLORIDE 0.9% 1,000 ML IV SCH ×2 (09:06→17:03)
[2018-08-23] MEDS ORDERED: PROAIR IH PRN (11:52)
[2018-08-23] MEDS ORDERED: ALBUTEROL 2.5 MG/3 ML NEB SOL IH PRN (11:52)
[2018-08-23] MEDS ORDERED: predniSONE 10 MG TAB PO SCH (14:00)
[2018-08-23] MEDS: GABAPENTIN 300 MG CAP PO SCH ×2 (14:21→20:45)
--- NOTE | 2018-08-23 14:30 | P.PN ---
Subjective Date of Service: 08/23/18 Chief Complaint: Diarrhea, weakness patient seen and examined at bedside. No family at bedside. Case discussed with nursing staff. Patient reports improved weakness though still not feeling back to his baseline. Reports no stool since he has been here. Review of Systems As noted above Physical Examination - Vital Signs Temperature: 97.6 F Blood Pressure: 127/81 Pulse: 78 Respirations: 18 Pulse Ox (%): 95 - Physical Exam General: Alert, Oriented x3, Mild distress HEENT: Atraumatic, PERRLA, EOMI Neck: Supple, JVD not distended Respiratory: Clear to auscultation bilaterally, Normal air movement Cardiovascular: Regular rate/rhythm, Normal S1 S2 Gastrointestinal: Normal bowel sounds, Tenderness (Mild tenderness, diffuse) Musculoskeletal: No tenderness Integumentary: No rashes Neurological: Normal speech, Normal tone, Normal affect - Studies Laboratory Data (last 24 hrs) 08/22/18 14:00: Creatinine 1.00 08/22/18 14:00: WBC 8.7, Hgb 14.7, Hct 42.9, Plt Count 250 08/22/18 14:00: Sodium 138, Potassium 4.5, BUN 31 H, Creatinine 1.10, Glucose 188 H, Total Bilirubin 0.5, AST 23, ALT 33, Alkaline Phosphatase 44 L, Lipase 154 Medications List Reviewed: Yes Assessment And Plan - Current Problems (Diagnosis) (1) Diarrhea Onset Date: 08/23/18 Current Visit: Yes Status: Acute Plan: The patient admitted for diarrhea. I Tried to get a little more history regarding his diarrhea though patient is a very poor historian. Per patient, he has been having episodes of diarrhea for the past 7 months, the last about 2- 3 days and then resolved. He says that this happens about once or twice a month. He did state that he was treated with 2 weeks of antibiotics last month but he is not sure of the antibiotic name. - C. diff, negative. Pending ova parasite testing though this does not seem infectious in etiology. - will continue symptomatic treatment with IV fluids. (2) Weakness Onset Date: 08/23/18 Current Visit: Yes Status: Acute Plan: Likely secondary to the diarrhea. Continue symptomatic treatment. Physical therapy consult placed. (3) Diabetes mellitus Onset Date: 06/11/18 Current Visit: No Status: Chronic Plan: Continue Accu-Cheks, sliding scale insulin. Will adjust as necessary. Qualifiers: Diabetes mellitus type: type 2 Diabetes mellitus termite treater insulin use: without termite treater use Diabetes mellitus complication status: with unspecified complications Qualified Code(s): E11.8 - Type 2 diabetes mellitus with unspecified complications (4) HTN (hypertension) Onset Date: 06/11/18 Current Visit: No Status: Chronic Plan: Stable, continue current medications. Qualifiers: Hypertension type: essential hypertension Qualified Code(s): I10 - Essential (primary) hypertension (5) Sleep apnea Onset Date: 01/16/17 Current Visit: No Status: Chronic Plan: Patient with a history of sleep apnea, on BiPAP at home. - CPAP ordered Qualifiers: Sleep apnea type: unspecified type Qualified Code(s): G47.30 - Sleep apnea , unspecified
[2018-08-23] MEDS: ARFORMOTEROL TARTRATE 15 MCG/2 ML VIAL.NEB IH SCH (20:00)
--- NOTE | 2018-08-23 20:22 | CON ---
History Of Present Illness: Mr. Burnett is a 63-year-old gentleman with history of diabetes mellitus type 2, hypertension, obesity, COPD, on home oxygen , who said he was on 25 days of antibiotics prescribed by his tax appraiser due to an eye infection and now has been developed some generalized weakness, profuse diarrhea, and associated with nausea. He came into the emergency room, where a CAT scan was done showing mild right UPJ obstruction. His kidneys; no stones, no filling defects. The patient said he had a fever of 101. In the ER , his temperature was 99.3. His lab work is essentially normal. He has denied any previous kidney problems, ureteral problem, bladder, prostate, or any urinary problems whatsoever. Allergies: IBUPROFEN CAUSES RASH AND HIVES. Home Medications: Albuterol, fenofibrate, spironolactone, trazodone, clonazepam , Abilify, Norvasc, Symbicort, enalapril, gabapentin, Prevacid, metformin, ProAir, Atrovent, oxycodone, Tylenol, prednisone. Past Medical History: Noninsulin dependent diabetes mellitus, IDDM, hypertension, hyperlipidemia, anxiety, depression, GERD, obstructive sleep apnea , on home O2 4 L/minute. Past Surgical History: Pancreatic surgery, cholecystectomy, several back surgeries, ERCP with pancreatic trauma, transferred to [facility] for open exploratory laparotomy, trach from previous surgery at [facility], [facility]. Family History: Father had heart disease and diabetes. Mother; heart disease, hypertension, lung disease, GI disease, diabetes, stroke, liver disease, kidney disease. Brother, heart disease, hypertension, lung disease, diabetes, stroke, kidney disease. Sister has heart disease, GI disease. Social History: Former smoker. No alcohol. No drugs. Does use caffeine. Resides at home. Review of Systems: A 10-point review of system otherwise unremarkable. Physical Examination: General: The patient was alert, in no acute distress. Appears overweight. HEENT: Atraumatic, normocephalic. Neck: Supple. Respiratory: Clear. Cardiovascular: S1, S2. Gastrointestinal: Normal bowel sounds. No tenderness. Laboratory Studies: Lab showed white blood cell count 7.5, H and H 13.6 and 40.5, platelet count 226. Chemistry; sodium 141, potassium 4.5, chloride 109, carbon dioxide 25, BUN 16, creatinine 0.7, GFR greater than 90, glucose 129, urine UA shows 3+ glucose, negative ketone, negative blood, negative nitrate, pH 6.0. Assessment: Minimal to moderate hydronephrosis on the right. Plan: Plan is to order renal scan with Lasix, renogram in the morning. The patient may have a possible crossing vessel at the UPJ that is congenital. If the renal scan shows minimal obstruction, this can be observed; most likely this is congenital. The patient is now 63, so most likely this can be observed but if the kidney is severely obstructed, then he will need more intervention. JOSELINE/SHERYL Voice ID: [id number] Report ID: [id number] ANNIE
[2018-08-23] MEDS: SPIRONOLACTONE 25 MG TABLET PO SCH (20:45)
[2018-08-23] MEDS: predniSONE 20 MG TAB PO SCH (20:46)
[2018-08-23] MEDS: HOME MED 1 EA UNK (Budesonide/Formoterol Fumarate [Symbicort 160-4.5 Mcg Inhaler] 2 PUFF) IH SCH (21:00)
[2018-08-24] MEDS: NA CHLORIDE 0.9% 1,000 ML IV SCH (03:03)
[2018-08-24 05:52] LABS: Magnesium 1.7 mg/dL (1.8-2.4); Potassium 4.9 mmol/L (3.5-5.1)
[2018-08-24] MEDS: Oxycodone HCl/Acetaminophen 1 TAB TAB PO PRN ×2 (05:54→16:12)
[2018-08-24] MEDS ORDERED: FUROSEMIDE 40 MG/4 ML VIAL ONE (06:01)
[2018-08-24] MEDS ORDERED: MAGNESIUM SULFATE 1 gm IVPB 1 GM/100 ML BAG IV ONE (06:09)
[2018-08-24] MEDS ORDERED: PANTOPRAZOLE 40MG TABLET PO SCH (06:30)
[2018-08-24] MEDS: IPRATROPIUM BROM 0.5MG/2.5ML NEB PRN (07:30)
[2018-08-24] MEDS: INSULIN -REGULAR HUMAN 50 UNIT/0.5 ML ML SQ SCH ×3 (07:30→17:03)
[2018-08-24] MEDS: ARFORMOTEROL TARTRATE 15 MCG/2 ML VIAL.NEB IH SCH (07:30)
[2018-08-24 09:00] VITALS: O2SAT 96
[2018-08-24] MEDS ORDERED: ENALAPRIL 10 MG TAB PO SCH (09:00)
[2018-08-24] MEDS ORDERED: AMLODIPINE 5 MG TAB PO SCH (09:00)
[2018-08-24] MEDS ORDERED: FENOFIBRATE 160 MG TAB PO SCH (09:00)
[2018-08-24] MEDS: HOME MED 1 EA UNK (Budesonide/Formoterol Fumarate [Symbicort 160-4.5 Mcg Inhaler] 2 PUFF) IH SCH (09:00)
[2018-08-24] MEDS ORDERED: ARIPiprazole 5 MG TAB PO SCH (09:00)
--- NOTE | 2018-08-24 09:03 | RAD REPORT ---
EXAM DESCRIPTION: NM - Kidney Imag W/Flow F W - 08/24/2018 7:41 am CLINICAL HISTORY: Renal obstruction, dilated right renal pelvis with possible UPJ obstruction COMPARISON: CT study August 22 TECHNIQUE: Patient was administered 10.2 millicuries technetium 99 M Mag 3. Dynamic flow imaging of the kidneys ureters and bladder is performed from posterior projection. Patient was administered 40 m illigrams Lasix approximately 10 minutes after initial radiopharmaceutical injection. Time activity c urves were generated. Split function calculations performed. FINDINGS: CT imaging showed dilation of the right side pelvis and calices relative to the left. No s tone, mass or other obstruction evident. Left renal time to peak activity was 7.15 minutes with a right kidney delayed slightly at 8.12 minute s. Time activity curve shows good response of the left kidney to the Lasix therapy with rapid decreas e in activity. Right kidney shows minimal or slow response to the Lasix. A very minimal gradual decre ase in activity seen over the right kidney and collecting system over the course of the 30 minutes ti me interval. IMPRESSION: Obstruction or partial obstruction pattern to the right kidney with diminished response to the Lasix washout. Left kidney shows good response to the Lasix with rapid washout. No left side obstruction. Both kidneys show a delay in time to peak activity measuring 7.15 minutes on the left and 8.12 minute s on the right.
[2018-08-24] MEDS: SPIRONOLACTONE 25 MG TABLET PO SCH (09:05)
[2018-08-24] MEDS: GABAPENTIN 300 MG CAP PO SCH ×2 (09:06→16:11)
[2018-08-24] MEDS: predniSONE 20 MG TAB PO SCH (09:07)
[2018-08-24 14:37] VITALS: TEMP 97.4
--- NOTE | 2018-08-24 16:26 | PN ---
Subjective: The patient is doing well. Objective: Renal scan shows [id number] obstruction right kidney. Left peak time was 7 minutes , right peak 8 minutes. T1/2 for the left was 3.6 minutes, T1/2 for the right kidney was 30 minutes. Function was 53% on the left, 47% on the right. Plan: To continue treatment options, watchful waiting. If the function of the kidney decreases over time by doing a renal scan every 3-6 months and the function decreases, he may be a candidate for ri ght pyeloplasty with Dr. Hackett in [place]. We will discuss all the options with the patient. JOSELINE/SHERYL Voice ID: [id number] Report ID: [id number]
[2018-08-24 17:07] VITALS: BP 108/66
== END 2018-08-24 19:10 | disposition home or self-care (01) ==
LOC: ER 13:14 → ERHOLD 18:01 → 2ND 21:00
PROVIDERS: ADMIT Family Medicine; ATTEND Internal Medicine
DX: R19.7 Diarrhea, unspecified (principal); R53.1 Weakness; N13.30 Unspecified hydronephrosis; E11.9 Type 2 diabetes mellitus without complications; I10 Essential (primary) hypertension; E66.9 Obesity, unspecified; Z68.39 Body mass index [BMI] 39.0-39.9, adult; G47.33 Obstructive sleep apnea (adult) (pediatric)
CPT/HCPCS: 36415 ×2; 71045; 74177; 78708; 80048 ×3; 80076; 80307 ×8; 81003 ×2; 82805; 82962 ×9; 83605; 83690; 83735 ×2; 85025 ×2; 87045; 87046; 87177; 87209; 87493; 94640; 94660 ×2; 94760 ×3; 96360; 96361; 99285; A9562; G0378 ×2; J3475 ×2; J7030 ×3; J7605 ×2; Q9967; J7512

== ENCOUNTER 2018-08-29 16:00 | Emergency (ER) | payer MEDICARE ==
--- OUTSIDE RECORDS SUMMARY | 2018-08-29 16:02 | XMS REPORT | Clinical Summary ---
:1955 Author Organization [facility] Address [address] [place] [address] Care Team Providers Name Role Phone Bebeto [...] by Active 100 MG tablet mouth nightly. fenofibrate TAKE 1 TABLET 90 tablet 3 [...] complication, with long-term current use of insulin ([facility]) enalapril (VASOTEC) Take 1 tablet 90 tablet 1 07/19/2017 Active 20 MG (20 mg total) tabletIndications: by mouth daily. Benign essential hypertension blood sugar Check glucose 4 400 strip 3 08/11/2017 Active diagnostic strips times a day (ONETOUCH VERIO) strip test stripsIndications: Type 2 diabetes mellitus with complication, with long-term current use of insulin ([facility]) insulin GLARGINE Inject 70 Units 22.5 mL 1 08/14/2017 Active (TOUJEO SOLOSTAR) under the skin 300 unit/mL (1.5 mL) daily. insulin penIndications: Type 2 diabetes mellitus with complication, with long-term current use of insulin ([facility]) insulin Use 1 syringe 270 each 1 [...] tablet by mouth nightly. Default OP ins pen needle, diabetic Use 4 needles a 400 each 3 08/23/2018 Active (BD ULTRA-FINE TIERA day. Dx: E11.65 PEN NEEDLE) 32 gauge x 5/32" needle lansoprazole Take 1 07/25/20 Discontinued (PREVACID) 30 MG capsule(s) 18 capsule every day by oral route. lansoprazole Take 30 mg by 0 05/23/2016 07/25/20 Discontinued (PREVACID) 30 MG mouth 2 (two) 18 capsule times a day. pen needle, diabetic Use 4 needles a 400 each 3 08/15/2016 08/23/20 Discontinued (BD ULTRA-FINE TIERA day 18 PEN NEEDLES) 32 gauge x 5/32" needle atorvastatin Take 1 tablet 90 tablet 3 [...] complication, with long-term current use of insulin ([facility]) insulin lispro Inject 35 Units 105 mL [...] Encounters Date Type Specialty Care Team Description 08/23/2018 Orders Only Endocrinology Susanna Laboy, LUIS MIGUEL 07/25/2018 Office Visit Endocrinology Kimi Jack, Uncontrolled type 2 MD diabetes mellitus with complication, unspecified terminal carman insulin use status (Primary Dx) 06/14/2018 Documentation Endocrinology Susanna Laboy, LUIS MIGUEL 05/22/2018 Orders Only Endocrinology Susanna Laboy, LUIS MIGUEL 05/17/2018 Documentation Endocrinology Susanna Laboy, MA 03/22/2018 Documentation Endocrinology Susanna Laboy, MA 03/22/2018 Orders Only Endocrinology Susanna Laboy, LUIS MIGUEL 03/20/2018 Office Visit Endocrinology Kimi Jack, Uncontrolled type 2 diabetes mellitus with complication, unspecified terminal carman insulin use status (Primary Dx); Hyperlipidemia, unspecified [...] long-term current use of insulin 01/04/2018 Refill Alexander Cifuentes Mixed hyperlipidemia MD Madalyn 01/02/2018 Orders Only Susanna Somers, LUIS MIGUEL 12/27/2017 Documentation Susanna Somers, LUIS MIGUEL 12/09/2017 Refill Endocrinology Alexander Mckeon Uncontrolled type 2 HMD Sumit diabetes mellitus with other circulatory complication, with long-term current use of insulin 12/01/2017 Office Visit Endocrinology Kimi Jack, 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, with long-term current use of insulin (Primary Dx); Osteopenia, unspecified location after 08/28/2017 Family History Medical History Relation Name Comments [...] 36.2 C (97.1 F) 12/01/2017 12:05 PM [employer] Respiratory Rate - - Oxygen Saturation 92% 07/25/2018 9:08 AM CDT Inhaled Oxygen Concentration - - Weight 114 kg (250 lb 6.4 oz) 07/25/2018 9:08 AM CDT Height 170.2 cm (5' 7") 07/25/2018 9:08 AM CDT Body Mass Index 39.22 07/25/2018 9:08 AM CDT Plan of Treatment Date Type Specialty Care Team Description 11/19/2018 Office Visit Endocrinology Kimi Jack MD [address] [address] Health Maintenance Due Date Last Done Comments COLON CANCER SCREENING 2003 SHINGRIX VACCINE (#1) 2003 ZOSTER VACCINE 2013 DIABETIC FOOT EXAM 10/10/2017 10/10/2016, 10/10/2016, 07/18/2016 INFLUENZA VACCINE 05/30/2018 07/27/2017, 07/13/2016 PNEUMOCOCCAL-13 2018 DIABETIC RETINAL EYE EXAM 03/20/2019 03/20/2018, 04/28/2017, 04/28/2016 URINE MICROALBUMIN 07/19/2019 07/19/2018, 01/07/2017, 01/07/2017, Additional history exists PNEUMOCOCCAL POLYSACCHARIDE VACCINE Completed 09/29/2017 AGE 63 [...] procedure are in complication, the results unspecified fdc section. insulin use status Hyperlipidemia, unspecified hyperlipidemia type COMPREHENSIVE Routine 07/19/2018 7:17 Uncontrolled type 2 Results for this METABOLIC PANEL AM CDT diabetes mellitus with procedure are in complication, the results unspecified fdc section. insulin use status HEMOGLOBIN A1C Routine 07/19/2018 7:17 Uncontrolled type 2 Results for this AM CDT diabetes mellitus with procedure are in complication, the results unspecified terminal carman section. insulin use status POC GLUCOSE Routine 03/20/2018 10:34 Uncontrolled type 2 Results for this AM CDT diabetes mellitus with procedure are in complication, the results unspecified fdc section. insulin use status POC GLYCOSYLATED Routine 03/20/2018 10:34 Uncontrolled type 2 Results for this HEMOGLOBIN (HGB A1C) AM CDT diabetes mellitus with procedure are in complication, the results unspecified fdc section. insulin use status BONE DENSITY Routine 03/20/2018 10:09 Uncontrolled type 2 Results for this AM CDT diabetes mellitus with procedure are in other circulatory the results complication, with section. long-term current use of insulin Osteopenia, unspecified location POC GLYCOSYLATED Routine 12/01/2017 12:19 Uncontrolled type 2 Results for this HEMOGLOBIN (HGB A1C) PM [employer] diabetes mellitus with procedure are in other circulatory the results complication, with section. long-term current use of insulin POC GLUCOSE Routine 12/01/2017 12:18 Uncontrolled type 2 Results for this PM [employer] diabetes mellitus with procedure are in other circulatory the results complication, with section. long-term current use of insulin after 08/28/2017 Results Microalbumin / creatinine urine ratio (07/19/2018 7:17 AM) Creatinine, urine, 137 20 - 320 mg/dL [facility] Microalbumin, urine 0.6 See Note: mg/dL [facility] Comment: [place] Reference Range: Reference Range Not established Microalbumin/creatini 4 <30 mcg/mg creat [facility] ne ratio Comment: [place] The ADA defines abnormalities in albumin excretion as follows: Category Result (mcg/mg creatinine) Normal<30 Microalbuminuria 30-299 Clinical albuminuria > RD=282 The ADA recommends that at least two of three specimens collected within a 3-6 month period be abnormal before considering a patient to be within a diagnostic category. Narrative Performed At FASTING:YES [facility] FASTING: YES Other Results Text Performing Organization Information: Site ID: [id number] Name: [facility] Address: [address] [place] [phone] Director: Mitzi Lyons Performing Organization Address [facility] [place] Phone Number [employer] [address] [address] Vitamin D 25 hydroxy level (07/19/2018 7:17 AM) Vitamin D, 25-hydroxy 19 (L) 30 - 100 ng/mL [facility] Comment: [place] Vitamin D Status 25-OH Vitamin D: Deficiency:<20 ng/mL Insufficiency: 20 - 29 ng/mL Optimal: > or=30 ng/mL For 25-OH Vitamin D testing on patients on D2-supplementation and patients for whom quantitation of D2 and D3 fractions is required, the QuestAssureD(TM) 25-OH VIT D, (D2,D3), LC/MS/MS is recommended: order code 06340 (patients >2yrs). For more information on this test, go to: http://education.Yamsafer/faq/GNU858 (This link is being provided for informational/educational purposes only.) Narrative Performed At FASTING:YES [facility] FASTING: YES Other Results Text Performing Organization Information: Site ID: [id number] Name: [facility] Address: [address] [place] [id number] Director: Mitzi Lyosn Performing Organization Address [facility] [place] Phone Number [employer] [address] [address] Hemoglobin A1c (07/19/2018 7:17 AM) Hemoglobin A1C 8.0 (H) <5.7 % of total [facility] Comment: Hgb [place] For someone without known diabetes, a hemoglobin [...] children. Specimen Blood Narrative Performed At FASTING:YES [facility] FASTING: YES Other Results Text Performing Organization Information: Site ID: [id number] Name: [facility] Address: [address] [place] [phone] Director: Mitzi Lyons Performing Organization Address [facility] [place] Phone Number [employer] [place] [phone] Lipid panel (07/19/2018 7:17 AM) Cholesterol, total 189 <200 mg/dL [facility] HDL cholesterol 38 (L) >40 mg/dL [facility] [place] Triglycerides 262 (H) <150 mg/dL [facility] [place] LDL cholesterol 114 (H) mg/dL (calc) [facility] calculated Comment: [place] Reference range: <100 Desirable range <100 mg/dL for primary prevention; <70 mg/dL for patients with CHD or diabetic patients with > or=2 CHD risk factors. LDL-C is now calculated using the Bud calculation, which is a validated novel method providing better accuracy than the Friedewald equation in the estimation of LDL-C. Pillo GUERRA et al. BRENDA. 2013;310(19): 0956-2098 (http://education.[place]/faq/OLR191) Cholesterol/HDL ratio 5.0 (H) <5.0 (calc) [facility] Non-HDL cholesterol 151 (H) <130 mg/dL [facility] Comment: (calc) [place] For patients with diabetes plus 1 major ASCVD risk factor, treating to a non-HDL-C goal of <100 mg/dL (LDL-C of <70 mg/dL) is considered a therapeutic option. Specimen Blood Narrative Performed At FASTING:YES [facility] FASTING: YES Other Results Text Performing Organization Information: Site ID: [id number] Name: [facility] Address: [address] [place] [phone] Director: Mitzi Lyons Performing Organization Address [facility]/Zipcode Phone Number [employer] [address] [phone] Comprehensive metabolic panel (07/19/2018 7:17 AM) Glucose 107 (H) 65 - 99 mg/dL [facility] Comment: [place] Fasting reference interval For someone without known diabetes, a glucose value between 100 and 125 mg/dL is consistent with prediabetes and should be confirmed with a follow-up test. BUN, whole blood 33 (H) 7 - 25 mg/dL [facility] Creatinine 0.93 0.70 - 1.25 [facility] Comment: mg/dL [place] For patients >49 years of age, the reference limit for Creatinine is approximately 13% higher for people identified as -Libyan. EGFR Non-Afr. [place] 86 > OR=60 [facility] mL/min/1.73m2 [place] EGFR 100 > OR=60 [facility] mL/min/1.73m2 [place] BUN/creatinine ratio 35 (H) 6 - 22 (calc) [facility] Sodium 139 135 - 146 mmol/L [facility] [place] Potassium 4.4 3.5 - 5.3 mmol/L [facility] [place] Chloride 105 98 - 110 mmol/L [facility] CO2 27 20 - 32 mmol/L [facility] [place] Calcium 9.6 8.6 - 10.3 mg/dL [facility] Protein 6.8 6.1 - 8.1 g/dL [facility] Albumin, S 4.2 3.6 - 5.1 g/dL [facility] Globulin, total 2.6 1.9 - 3.7 g/dL [facility] (calc) [place] Albumin/globulin ratio 1.6 1.0 - 2.5 (calc) [facility] Total bilirubin 0.4 0.2 - 1.2 mg/dL [facility] Alkaline phosphatase 46 40 - 115 U/L [facility] AST 21 10 - 35 U/L [facility] ALT 26 9 - 46 U/L [facility] [employer] [place] Specimen Blood Narrative Performed At FASTING:YES [facility] FASTING: YES Other Results Text Performing Organization Information: Site ID: [id number] Name: [facility] Address: [address] [place] [phone] Director: Mitzi Lyons Performing Organization Address City/State/Zipcode Phone Number [place] [phone] POC glycosylated hemoglobin (Hb A1C) (03/20/2018 10:34 AM)Only the most recent of2 resultswithin the time period is included. POC Hemoglobin A1C 8.6 % Specimen Blood POC glucose (03/20/2018 10:34 AM)Only the most recent of2 resultswithin the time period is included. POC glucose 136Comment: non fasting 65 - 100 Specimen Blood Bone Density (03/20/2018 10:09 AM) Narrative Performed At [facility] [address] [place] [address]. [address] [place] [address] Bone Density Report Name: Garrison Burnett Sex: Male Age: 62 Ethnicity: White Height: 64.0 in Referring Provider: KIMI JACK Date of : 1955 Weight: 249.8lb Indication: History of glucocorticoids Accession number: [id number] Bone Density: Exam date 03/20/2018 Region BMD [...] AM. Performing Organization Address City/State/Zipcode Phone Number [facility] [address] [place] [address] after 08/28/2017 Insurance Payer Benefit Plan / Group Subscriber ID Type Phone Address UHC MEDICARE AARP MEDICARE COMPLETE [facility] xxxxxxxxx O
[2018-08-29 16:10] LABS: Arterial Blood Carboxyhemoglob 0.7 % (0-1.5); Blood Gas Oxyhemoglobin 96.7 % (94-97); Blood O2 Saturation 98.5 % (92-98.5)
[2018-08-29 16:31] LABS: Absolute Monocytes 0.9 K/uL (0.1-1.3); Absolute Neutrophil 14.6 K/uL (1.8-8.0); Basophils % 0.2 % (0-1.3); Eosinophils % 0.1 % (0-4.4); Hematocrit 40.9 % (39.6-49.0); Lymphocytes % 6.2 % (15.3-44.8); MCH 30.4 pg (27.0-35.0); MCV 90.5 fL (80-100); MPV 7.9 fL (7.6-11.3); Monocytes % 5.5 % (3.3-12.3); RBC Red Blood Cell Count 4.52 M/uL (4.33-5.43)
[2018-08-29 16:51] LABS: Protime INR 1.04
[2018-08-29 16:52] LABS: Albumin 3.4 g/dL (3.4-5.0); Bilirubin Direct 0.1 mg/dL (0-0.2); Bilirubin Total 0.2 mg/dL (0.2-1.0); CKMB Creatine Kinase MB 31.2 ng/mL (0.3-3.6); Magnesium 1.4 mg/dL (1.8-2.4); Potassium 5.6 mmol/L (3.5-5.1); Protein, Total 6.7 g/dL (6.4-8.2); Troponin (Emerg Dept Use Only) 3.54 ng/mL (0.0-0.045)
--- NOTE | 2018-08-29 16:56 | RAD REPORT ---
EXAM DESCRIPTION: CT - Head Brain Wo Cont - 08/29/2018 4:41 pm CLINICAL HISTORY: Unresponsive COMPARISON: None. TECHNIQUE: Axial 5 mm thick images of the head were obtained without IV contrast. All CT scans are performed using dose optimization technique as appropriate and may include automated exposure control or mA/KV adjustment according to patient size. FINDINGS: No intracranial hemorrhage, mass, edema or shift of mid-line structures. No acute infarcti on changes seen. No abnormal extra-axial fluid collections. Atrophy and chronic ischemic changes are present. Ventricular size is in proportion to the volume loss. Arterial calcifications are present. Mastoid air cells and visualized portions of the paranasal sinuses are clear. Tubing is present in th e right nasal passage. No acute bony findings. IMPRESSION: Mild atrophy and chronic ischemic change with no acute intracranial finding.
[2018-08-29 17:12] LABS: Blood Morphology Comment NOT SEEN (NOT SEEN); Platelet Estimate ADEQ
[2018-08-29] MEDS ORDERED: NA CHLORIDE 0.9% 1,000 ML ONE (17:13)
[2018-08-29] MEDS ORDERED: METHYLPREDNISOLONE 125 MG INJ ONE (17:13)
[2018-08-29] MEDS ORDERED: IPRATROPIUM BROM 0.5MG/2.5ML ONE (17:13)
[2018-08-29] MEDS ORDERED: ALBUTEROL 2.5 MG/3 ML NEB SOL ONE (17:13)
--- NOTE | 2018-08-29 17:16 | ER ---
Nurse's Notes [facility] Name: Asim Burnett Age: 63 yrs Sex: Male : 1955 Arrival Date: 08/29/2018 Time: 15:58 Bed 3 Private MD: Diagnosis: Acute kidney failure;Non-ST elevation (NSTEMI) myocardial infarction;Obesity, unspecified;Respiratory failure, unspecified;Hyperkalemia;Hypomagnesemia;Elevated white blood cell count;Bandemia Presentation: 08/29 16:00 Presenting complaint: EMS states: He laid down for a nap around 1000 and couldn't jl7 wake him up. He was agonal breathing on arrival with white frothy vomit. Intubated, 7.5 tube 25 at the gerda. He's been hypotensive systolic 80s. Pupils were pinpoint 0.4 mg Narcan given, pupils now 4 mm and sluggish, respirations improved. Transition of care: patient was not received from another setting of care. Onset of symptoms was August 29, 2018. Risk Assessment: Do you want to hurt yourself or someone else? Patient reports no desire to harm self or others. Initial Sepsis Screen: Does the patient meet any 2 criteria? No. Patient's initial sepsis screen is negative. Does the patient have a suspected source of infection? No. Patient's initial sepsis screen is negative. Care prior to arrival: Assisted ventilation, Medication(s) given: 500 mg Ketamine and .4 mg Narcan IV initiated. 18 GA, in the left antecubital area, Glucose check: 291. 16:00 Method Of Arrival: EMS: [facility] 7 16:00 Acuity: ORACIO 1 iw Historical: - Allergies: 16:07 Ibuprofen; jl7 - Home Meds: 16:07 Abilify 5 mg Oral tab 1 tab once daily [Active]; Albuterol Inhl [Active]; amlodipine 5 jl7 mg tab 1 tab once daily [Active]; clonazepam 1 mg Oral tab 1 tab QID PRN [Active]; enalapril maleate 20 mg Oral tab 1 tab once daily [Active]; fenofibrate 160 mg Oral tab 1 tab once daily [Active]; Humalog 100 unit/mL Sub-Q soln 24 unit three times a day [Active]; lansoprazole 30 mg Oral cpDR 1 cap once daily [Active]; metformin 1,000 mg Oral TG24 1 tab 2 times per day [Active]; oxycodone-acetaminophen 10-325 mg Oral tab 1 tab twice a day [Active]; spironolactone 25 mg Oral tab 1 tab once daily [Active]; symbicort [Active]; Toujeo SoloStar 300 unit/mL (1.5 mL) subcutaneous inpn 50 unit nightly [Active]; trazodone 50 mg Oral tab 1 tab nightly [Active]; - PMHx: 16:07 Anxiety; COPD; Depression; Diabetes - IDDM; High Cholesterol; Hypertension; jl7 - Immunization history:: Adult Immunizations unknown. - Social history:: Smoking status: unknown. - Ebola Screening: : No symptoms or risks identified at this time. Screenin:30 Abuse screen: Denies threats or abuse. Denies injuries from another. Nutritional jl7 screening: No deficits noted. Tuberculosis screening: No symptoms or risk factors identified. Fall Risk Total Hodges Fall Scale indicates High Risk Score (45 or more points). Fall prevention measures have been instituted. Side Rails Up X 2 Placed Close to Nursing Station Frequent Obs/Assessments Occuring Family Present and informed to notify staff if the need to leave the bedside As available patient and family educated on Fall Prevention Program and Strategies. Assessment: 16:00 General: Appears ill, Behavior is unresponsive. Pain: Unable to use pain scale. Patient jl7 is unresponsive. Neuro: Level of Consciousness is unresponsive. Cardiovascular: Heart tones present Patient's skin is warm and dry. Respiratory: Airway via oral intubation Trachea midline Respiratory effort is even, unlabored, Respiratory pattern is regular, symmetrical, Breath sounds with crackles bilaterally. GI: Abdomen is round non-distended, Bowel sounds present X 4 quads. Derm: Skin is pink, warm \T\ dry. 16:30 Reassessment: NG tube place by Dr. Veras. jl7 16:45 Reassessment: at bedside. jl7 17:50 Reassessment: Pt appears agitated, Dr. Veras notified, see MAR for orders. jl7 18:30 Reassessment: Patient appears in no apparent distress at this time. No changes from jl7 previously documented assessment. Patient and/or family updated on plan of care and expected duration. Pain level reassessed. 19:17 Reassessment: EMS will not be available for transport until 1999. Received standing tl2 order for 4 mg of IV versed per Dr. Veras as needed. General: Appears ill, Behavior is unresponsive. Pain: Unable to use pain scale. Patient is unresponsive. Neuro: Level of Consciousness is unresponsive. Cardiovascular: Patient's skin is warm and dry. Respiratory: Airway via oral intubation Respiratory effort is even, Respiratory pattern is regular, symmetrical, Breath sounds with crackles bilaterally. GI: Abdomen is non-distended. Derm: Skin is pink, warm \T\ dry. 20:55 Reassessment: Dr. Amaro notified of pt's hypotension, new orders see DEC. tl2 Vital Signs: 16:07 BP 100 / 59; Pulse 100; Resp 16 A; Pulse Ox 100% on 100% FiO2 ETT vent; jl7 16:19 Weight 108.86 kg (R); iw 16:28 BP 127 / 87; Pulse 101; Resp 20 A; Pulse Ox 100% on ETT vent; iw 16:32 Temp 98.0(A); dh3 17:00 BP 117 / 91; Pulse 112; Resp 16 A; Pulse Ox 99% on 100% FiO2 ETT vent; jl7 17:15 BP 121 / 87; Pulse 106; Resp 16 A; Pulse Ox 98% on 100% FiO2 ETT vent; jl7 17:30 BP 110 / 75; Pulse 105; Resp 16 A; Pulse Ox 100% on 100% FiO2 ETT vent; jl7 17:45 BP 95 / 76; Pulse 103; Resp 16 A; Pulse Ox 100% on 100% FiO2 ETT vent; jl7 17:45 BP 115 / 59; Pulse 105; Resp 16 A; Pulse Ox 100% on 100% FiO2 ETT vent; jl7 18:33 BP 109 / 83; Pulse 99; Resp 16 A; Pulse Ox 100% on 100% FiO2 ETT vent; jl7 19:10 BP 103 / 57; Pulse 93; Resp 16; Pulse Ox 99% on ETT vent; tl2 20:11 BP 82 / 54; Pulse 84; Resp 16; Pulse Ox 96% on 100% FiO2 ETT vent; ak1 20:19 BP 79 / 52; Pulse 83; Resp 16; Pulse Ox 96% on 100% FiO2 ETT vent; ak1 20:35 BP 81 / 55; Pulse 82; Resp 16; Pulse Ox 97% on 100% FiO2 ETT vent; ak1 21:07 BP 93 / 53; Pulse 82; Resp 16; Pulse Ox 97% on 50% FiO2 ETT vent; tl2 21:20 BP 101 / 67; Pulse 83; Resp 16; Pulse Ox 97% on 50% FiO2 ETT vent; tl2 21:45 BP 107 / 60; Pulse 88; Resp 16; Pulse Ox 96% on 50% FiO2 ETT vent; tl2 ED Course: 15:58 Patient arrived in ED. iw 16:00 Trevor Cavazos, RN is Primary Nurse. jl7 16:00 Patient has correct armband on for positive identification. Placed in gown. Bed in low jl7 position. Call light in reach. Side rails up X2. material handler 1st shift on. Pulse ox on. NIBP on. Warm blanket given. 16:05 Triage completed. jl7 16:07 Arm band placed on right wrist. jl7 16:10 EKG done, by electronic organ technician. dt2 16:12 Heladio Veras MD is Attending Physician. bridger 16:15 Initial lab(s) drawn, by me, sent to lab. Maintain EMS IV. Dressing intact. Good blood iw return noted. Site clean \T\ dry. Gauge \T\ site: 18 LAC. 16:21 Radiology exam delayed due to mya scales patient not ready. sj 16:39 CT completed. Patient tolerated procedure well. Patient moved back from CT. vr 16:40 CT Head Brain wo Cont In Process Unspecified. EDMS 16:45 NGT: inserted 16 Fr. via right nare. verified placement of air over stomach, Placement jl7 verified by X-ray, to intermittent suction. Returned gastric contents. Patient tolerated well. 17:00 Cleaned of incontinence. jl7 17:08 Burroughs cath inserted, using sterile technique, 16 Fr., by wa, balloon inflated, to dh3 gravity drainage, urine specimen collected. returned julieth urine. 500mL. 17:11 XRAY Chest (1 view) In Process Unspecified. EDMS 17:13 Notified ED physician of a critical lab result(s). K, CKMB, TROPONIN, MG. la1 17:36 First set of blood cultures drawn by ED staff. dh3 20:54 Basic Metabolic Panel Sent. tl2 21:01 Chest Single View XRAY In Process Unspecified. EDMS 22:22 No provider procedures requiring assistance completed. Patient transferred, IV remains tl2 in place. Administered Medications: 16:23 CANCELLED (Duplicate Order): NS 0.9% (30 ml/kg) 30 ml/kg IV at bolus once; Sepsis bridger Protocol 17:20 Drug: NS 0.9% 1000 ml Route: IV; Rate: 125 ml/hr; Site: left antecubital; jl7 20:26 Follow up: IV Status: Completed infusion ak1 17:21 Drug: Zosyn 4.5 grams Route: IVPB; Infused Over: 60 mins; Site: left antecubital; jl7 18:20 Follow up: Response: No adverse reaction; IV Status: Completed infusion jl7 17:21 Drug: SOLU-Medrol 125 mg Route: IVP; Site: left antecubital; jl7 18:00 Follow up: Response: No adverse reaction jl7 17:30 Drug: Albuterol - atroVENT (3:1) (2.5 mg - 0.5 mg) 3 ml Route: Nebulizer; jl7 19:16 Follow up: Response: No adverse reaction jl7 17:40 Drug: Heparin (ID-Bolus No thrombolytic) - HEParin 60 units/kg {Co-Signature: ss jl7 (Bettye Ayala RN).} Route: IVP; Site: left antecubital; 19:14 Follow up: Response: No adverse reaction jl7 17:40 Drug: Rocephin 1 grams Route: IV; Rate: calculated rate; Site: left antecubital; jl7 17:42 Follow up: Response: No adverse reaction; IV Status: Completed infusion jl7 17:50 Drug: Versed 2 mg Route: IVP; Site: left antecubital; jl7 19:10 Follow up: Response: No adverse reaction jl7 17:55 Drug: Heparin (ID Drip) 12 units/kg/hr - (HEParin 41936 units, D5W 500 ml) jl7 {Co-Signature: ss (Bettye Ayala RN).} Route: IV; Rate: calculated rate; Site: left antecubital; 17:58 Not Given (Other Intervention Used): Rocephin - (cefTRIAXone) 1 grams IVPB once over 30 jl7 mins; (mix in 50 mL NS) 18:00 Drug: Magnesium Sulfate 2 grams Route: IVPB; Infused Over: 2 hrs; Site: right forearm; jl7 20:20 Follow up: IV Status: Completed infusion ak1 18:01 Drug: Aspirin Suppository 300 mg Route: NC; jl7 19:12 Follow up: Response: No adverse reaction jl7 18:07 Drug: Versed 2 mg Route: IVP; Site: right forearm; jl7 19:10 Follow up: Response: No adverse reaction jl7 18:10 Drug: NS 0.9% 500 ml Route: IV; Rate: bolus; Site: right forearm; jl7 18:40 Follow up: IV Status: Completed infusion jl7 18:18 Drug: Pepcid 20 mg Route: IVP; Site: right forearm; jl7 19:11 Follow up: Response: No adverse reaction jl7 19:01 Drug: Kayexalate 30 grams Route: PO; jl7 19:12 Follow up: Response: No adverse reaction jl7 20:53 Drug: Ringers - Lactated Ringers Solution 500 ml Route: IV; Rate: bolus; Site: right tl2 forearm; 22:22 Follow up: IV Status: Completed infusion; IV Intake: 500ml tl2 Point of Care Testing: Blood Glucose: 16:07 Blood Glucose: 201 mg/dL; jl7 20:54 Blood Glucose: 208 mg/dL; tl2 Ranges: Intake: 22:22 IV: 500ml; Total: 500ml. tl2 Outcome: 17:15 ER care complete, transfer ordered by MD. sparks 22:22 Transferred by [facility] to [facility], Transfer form completed. tl2 22:22 critical 22:22 Discharge instructions given to family, Instructed on the need for admit. 22:23 Patient left the ED. tl2 Signatures: Dispatcher [employer] EDMS Heladio Veras MD MD cha Jones, Susan sj Williams, Irene, Crista Cardona RN, Lee, RN RN la1 Julieth Lua RN RN Martha Braun RN RN tl2 Trevor Cavazos RN RN jl7 Jannette Shepherd Danielle 2 Bettye Ayala RN Corrections: (The following items were deleted from the chart) 16:12 16:00 Acuity: ORACIO 2 jl7 la1 16:13 16:00 Care prior to arrival: None. jl7 jl7 16:13 16:00 Acuity: ORACIO 1 la1 iw 17:29 16:19 99.79 kg Reported; [facility] 18:35 17:30 BP 110 / 75; Pulse 105bpm; Resp 16bpm; Spontaneous; Pulse Ox 100% FiO2 100% vent; 7 jl7 18:56 18:03 General: Appears ill, Behavior is unresponsive. [place] [id number] 18:56 18:03 Pain: Unable to use pain scale. Patient is unresponsive. [place] [id number] 18:56 18:03 Neuro: Level of Consciousness is unresponsive, [place] [id number] 18:56 18:03 Cardiovascular: Heart tones present Patient's skin is warm and dry. [place] [id number] 18:56 18:03 Respiratory: Airway via oral intubation Trachea midline Respiratory effort is jl7 even, unlabored, Respiratory pattern is regular, symmetrical, Breath sounds with crackles bilaterally. [facility] 18:56 18:03 GI: Bowel sounds present X 4 quads. [facility] jl7 21:08 21:08 BP 127 / 83; Pulse 86bpm; Resp 20bpm; Pulse Ox 100% 2 lpm Nasal Cannula; tl2 tl2
--- NOTE | 2018-08-29 17:16 | EDPHYS ---
Physician Documentation [facility] Name: Asim Burnett Age: 63 yrs Sex: Male : 1955 Arrival Date: 08/29/2018 Time: 15:58 Bed 3 Private MD: ED Physician Heladio Veras HPI: 08/29 16:14 This 63 yrs old Male presents to ER via EMS with complaints of Unresponsive. snw 16:14 The patient's problem is reported as unresponsive. Onset: The symptoms/episode snw began/occurred suddenly. Duration: This was a single incident. Context: Spouse states pt went for a nap, snoring, could not awake pt. EMS arrived, pt with sonorous resp, pinpoint pupils. Pt was intubated, Narcan given and pt aroused. Meds for sedation given 2nd to intubated state. Associated signs and symptoms: The patient has no apparent associated signs or symptoms. Severity of symptoms: At their worst the symptoms were incapacitating. Patient's baseline: Neuro: alert and fully oriented, Motor: no deficits, Ambulation: walks without assistance. It is unknown whether or not the patient has had similar symptoms in the past. It is unknown whether or not the patient has recently seen a physician. Historical: - Allergies: 16:07 Ibuprofen; jl7 - Home Meds: 16:07 Abilify 5 mg Oral tab 1 tab once daily [Active]; Albuterol Inhl [Active]; amlodipine 5 jl7 mg tab 1 tab once daily [Active]; clonazepam 1 mg Oral tab 1 tab QID PRN [Active]; enalapril maleate 20 mg Oral tab 1 tab once daily [Active]; fenofibrate 160 mg Oral tab 1 tab once daily [Active]; Humalog 100 unit/mL Sub-Q soln 24 unit three times a day [Active]; lansoprazole 30 mg Oral cpDR 1 cap once daily [Active]; metformin 1,000 mg Oral TG24 1 tab 2 times per day [Active]; oxycodone-acetaminophen 10-325 mg Oral tab 1 tab twice a day [Active]; spironolactone 25 mg Oral tab 1 tab once daily [Active]; symbicort [Active]; Toujeo SoloStar 300 unit/mL (1.5 mL) subcutaneous inpn 50 unit nightly [Active]; trazodone 50 mg Oral tab 1 tab nightly [Active]; - PMHx: 16:07 Anxiety; COPD; Depression; Diabetes - IDDM; High Cholesterol; Hypertension; jl7 - Immunization history:: Adult Immunizations unknown. - Social history:: Smoking status: unknown. - Ebola Screening: : No symptoms or risks identified at this time. ROS: 16:13 Constitutional: Negative for fever, chills, and weight loss, Eyes: Negative for injury, snw pain, redness, and discharge, ENT: Negative for injury, pain, and discharge, Neck: Negative for injury, pain, and swelling, Cardiovascular: Negative for chest pain, palpitations, and edema, Respiratory: Negative for shortness of breath, cough, wheezing, and pleuritic chest pain, Abdomen/GI: Negative for abdominal pain, nausea, vomiting, diarrhea, and constipation, Back: Negative for injury and pain, : Negative for injury, bleeding, discharge, and swelling, MS/Extremity: Negative for injury and deformity, Skin: Negative for injury, rash, and discoloration. 16:13 Neuro: Positive for AMS, unresponsive. Exam: 16:11 Head/Face: Normocephalic, atraumatic. Eyes: Pupils equal round and reactive to light, snw extra-ocular motions intact. Lids and lashes normal. Conjunctiva and sclera are non-icteric and not injected. Cornea within normal limits. Periorbital areas with no swelling, redness, or edema. 16:11 Neck: Trachea midline, no thyromegaly or masses palpated, and no cervical lymphadenopathy. Supple, full range of motion without nuchal rigidity, or vertebral point tenderness. No Meningismus. Chest/axilla: Normal chest wall appearance and motion. Nontender with no deformity. No lesions are appreciated. Cardiovascular: Regular rate and rhythm with a normal S1 and S2. No gallops, murmurs, or rubs. Normal PMI, no JVD. No pulse deficits. 16:11 Back: No spinal tenderness. No costovertebral tenderness. Full range of motion. Skin: Warm, dry with normal turgor. Normal color with no rashes, no lesions, and no evidence of cellulitis. MS/ Extremity: Pulses equal, no cyanosis. Neurovascular intact. Full, normal range of motion. 16:11 Constitutional: The patient appears obese, Intubated prior to arrival 16:11 ENT: ET tube in place, placed on Ventilator. 16:11 Respiratory: severe repiratory distress is noted, Respirations: Intubated prior to arrival. 16:11 Abdomen/GI: Inspection: distension, obese Bowel sounds: active, Palpation: no appreciated organomegaly. 16:11 Neuro: seizure activity, is not displayed by the patient, Abnormal movements: there are no abnormal movements, intubated prior to arrival. Vital Signs: 16:07 BP 100 / 59; Pulse 100; Resp 16 A; Pulse Ox 100% on 100% FiO2 ETT vent; jl7 16:19 Weight 108.86 kg (R); iw 16:28 BP 127 / 87; Pulse 101; Resp 20 A; Pulse Ox 100% on ETT vent; iw 16:32 Temp 98.0(A); dh3 17:00 BP 117 / 91; Pulse 112; Resp 16 A; Pulse Ox 99% on 100% FiO2 ETT vent; jl7 17:15 BP 121 / 87; Pulse 106; Resp 16 A; Pulse Ox 98% on 100% FiO2 ETT vent; jl7 17:30 BP 110 / 75; Pulse 105; Resp 16 A; Pulse Ox 100% on 100% FiO2 ETT vent; jl7 17:45 BP 95 / 76; Pulse 103; Resp 16 A; Pulse Ox 100% on 100% FiO2 ETT vent; jl7 17:45 BP 115 / 59; Pulse 105; Resp 16 A; Pulse Ox 100% on 100% FiO2 ETT vent; jl7 18:33 BP 109 / 83; Pulse 99; Resp 16 A; Pulse Ox 100% on 100% FiO2 ETT vent; jl7 19:10 BP 103 / 57; Pulse 93; Resp 16; Pulse Ox 99% on ETT vent; tl2 20:11 BP 82 / 54; Pulse 84; Resp 16; Pulse Ox 96% on 100% FiO2 ETT vent; ak1 20:19 BP 79 / 52; Pulse 83; Resp 16; Pulse Ox 96% on 100% FiO2 ETT vent; ak1 20:35 BP 81 / 55; Pulse 82; Resp 16; Pulse Ox 97% on 100% FiO2 ETT vent; ak1 21:07 BP 93 / 53; Pulse 82; Resp 16; Pulse Ox 97% on 50% FiO2 ETT vent; tl2 21:20 BP 101 / 67; Pulse 83; Resp 16; Pulse Ox 97% on 50% FiO2 ETT vent; tl2 21:45 BP 107 / 60; Pulse 88; Resp 16; Pulse Ox 96% on 50% FiO2 ETT vent; tl2 MDM: 16:12 Patient medically screened. [facility] 16:36 Data reviewed: vital signs, nurses notes, lab test result(s), EKG, radiologic studies, [facility] CT scan, plain films. 08/29 16:00 Order name: Basic Metabolic Panel; Complete Time: 17:00 08/29 16:00 Order name: CBC with Diff; Complete Time: 17:16 08/29 16:00 Order name: LFT's; Complete Time: 17:00 08/29 16:00 Order name: Magnesium; Complete Time: 17:00 08/29 16:00 Order name: NT PRO-BNP; Complete Time: 17:00 08/29 16:00 Order name: PT-INR; Complete Time: 17:00 08/29 16:00 Order name: Troponin (emerg Dept Use Only); Complete Time: 17:00 08/29 16:01 Order name: Blood Culture Adult (2) 08/29 16:01 Order name: Ckmb; Complete Time: 17:00 08/29 16:01 Order name: CPK; Complete Time: 17:00 08/29 16:01 Order name: Lactate; Complete Time: 17:00 08/29 16:01 Order name: Lipase; Complete Time: 17:00 08/29 16:01 Order name: Procalcitonin; Complete Time: 17:16 08/29 16:01 Order name: Urine Microscopic Only; Complete Time: 20:41 08/29 16:06 Order name: Sputum Culture 08/29 16:06 Order name: ABG; Complete Time: 20:41 08/29 16:06 Order name: Sputum Culture sn 08/29 16:06 Order name: Sputum Culture EDAK 08/29 16:10 Order name: UDS; Complete Time: 20:42 sn 08/29 16:25 Order name: Asprin; Complete Time: 20:42 [facility] 08/29 16:25 Order name: Tylenol Level; Complete Time: 17:16 [facility] 08/29 16:25 Order name: ETOH Level; Complete Time: 17:16 [facility] 08/29 16:32 Order name: Manual Differential; Complete Time: 17:16 EDMS 08/29 16:33 Order name: PTT, Activated Partial Thromb; Complete Time: 17:00 EDAK 08/29 17:56 Order name: Urine Dipstick--Ancillary (enter results); Complete Time: 20:41 08/29 18:03 Order name: Glucose, Ancillary Testing; Complete Time: 20:41 EDMS 08/29 18:12 Order name: Urine Culture EDAK 08/29 16:00 Order name: XRAY Chest (1 view); Complete Time: 20:41 08/29 16:00 Order name: EKG; Complete Time: 16:01 08/29 16:00 Order name: Cardiac monitoring; Complete Time: 16:28 08/29 16:00 Order name: EKG - Nurse/Tech; Complete Time: 16:28 08/29 16:00 Order name: IV Saline Lock; Complete Time: 16:28 08/29 16:00 Order name: Labs collected and sent; Complete Time: 16:28 08/29 16:00 Order name: O2 Per Protocol; Complete Time: 16:28 08/29 16:00 Order name: O2 Sat Monitoring; Complete Time: 16:28 08/29 16:01 Order name: Accucheck; Complete Time: 16:28 08/29 16:01 Order name: IV Saline Lock - Large Bore; Complete Time: 16:28 08/29 16:01 Order name: Urine Dipstick-Ancillary (obtain specimen); Complete Time: 17:22 08/29 16:06 Order name: NG Tube; Complete Time: 16:29 [facility] 08/29 16:11 Order name: CT Head Brain wo Cont; Complete Time: 17:00 [facility] 08/29 20:46 Order name: Chest Single View XRAY; Complete Time: 21:12 fl 08/29 20:46 Order name: Basic Metabolic Panel fl 08/29 16:10 Order name: Burroughs; Complete Time: 17:56 [facility] 08/29 20:51 Order name: Accucheck; Complete Time: 20:53 fl Administered Medications: 16:23 CANCELLED (Duplicate Order): NS 0.9% (30 ml/kg) 30 ml/kg IV at bolus once; Sepsis bridger Protocol 17:20 Drug: NS 0.9% 1000 ml Route: IV; Rate: 125 ml/hr; Site: left antecubital; jl7 20:26 Follow up: IV Status: Completed infusion ak1 17:21 Drug: Zosyn 4.5 grams Route: IVPB; Infused Over: 60 mins; Site: left antecubital; jl7 18:20 Follow up: Response: No adverse reaction; IV Status: Completed infusion jl7 17:21 Drug: SOLU-Medrol 125 mg Route: IVP; Site: left antecubital; jl7 18:00 Follow up: Response: No adverse reaction jl7 17:30 Drug: Albuterol - atroVENT (3:1) (2.5 mg - 0.5 mg) 3 ml Route: Nebulizer; jl7 19:16 Follow up: Response: No adverse reaction jl7 17:40 Drug: Heparin (LA-Bolus No thrombolytic) - HEParin 60 units/kg {Co-Signature: ss jl7 (Bettye Ayala RN).} Route: IVP; Site: left antecubital; 19:14 Follow up: Response: No adverse reaction jl7 17:40 Drug: Rocephin 1 grams Route: IV; Rate: calculated rate; Site: left antecubital; jl7 17:42 Follow up: Response: No adverse reaction; IV Status: Completed infusion jl7 17:50 Drug: Versed 2 mg Route: IVP; Site: left antecubital; jl7 19:10 Follow up: Response: No adverse reaction jl7 17:55 Drug: Heparin (LA Drip) 12 units/kg/hr - (HEParin 10954 units, D5W 500 ml) jl7 {Co-Signature: ss (Bettye Ayala RN).} Route: IV; Rate: calculated rate; Site: left antecubital; 17:58 Not Given (Other Intervention Used): Rocephin - (cefTRIAXone) 1 grams IVPB once over 30 jl7 mins; (mix in 50 mL NS) 18:00 Drug: Magnesium Sulfate 2 grams Route: IVPB; Infused Over: 2 hrs; Site: right forearm; jl7 20:20 Follow up: IV Status: Completed infusion ak1 18:01 Drug: Aspirin Suppository 300 mg Route: HI; jl7 19:12 Follow up: Response: No adverse reaction jl7 18:07 Drug: Versed 2 mg Route: IVP; Site: right forearm; jl7 19:10 Follow up: Response: No adverse reaction 7 18:10 Drug: NS 0.9% 500 ml Route: IV; Rate: bolus; Site: right forearm; jl7 18:40 Follow up: IV Status: Completed infusion jl7 18:18 Drug: Pepcid 20 mg Route: IVP; Site: right forearm; jl7 19:11 Follow up: Response: No adverse reaction jl7 19:01 Drug: Kayexalate 30 grams Route: PO; jl7 19:12 Follow up: Response: No adverse reaction jl7 20:53 Drug: Ringers - Lactated Ringers Solution 500 ml Route: IV; Rate: bolus; Site: right tl2 forearm; 22:22 Follow up: IV Status: Completed infusion; IV Intake: 500ml tl2 Point of Care Testing: Blood Glucose: 16:07 Blood Glucose: 201 mg/dL; jl7 20:54 Blood Glucose: 208 mg/dL; tl2 Ranges: Critical Glucose Levels:Adult <50 mg/dl or >400 mg/dl <40 mg/dl or >180 mg/dl Disposition: 08/29/18 17:15 Transfer ordered to [facility]. Diagnosis are Acute kidney failure, Non-ST elevation (NSTEMI) myocardial infarction, Obesity, unspecified, Respiratory failure, unspecified, Hyperkalemia, Hypomagnesemia, Elevated white blood cell count, Bandemia. - Reason for transfer: Higher level of care. - Accepting physician is to u , [facility]. - Condition is Serious. - Problem is new. - Symptoms have improved. Signatures: Dispatcher [employer] Heladio Gonzalez MD MD cha Therrien, Shelly, PHYSICIAN SCRIBE-C PHYSICIAN SCRIBE-Csnw Renea Mariano, MILLA LOYOLA iw Martha Hughes RN RN tl2 Trevor Cavazos RN RN jl7 Oli Gongora MD MD wa Krenek, Amber RN ak1 Bettye Ayala RN ss Corrections: (The following items were deleted from the chart) 16:23 16:10 NS 0.9% (30 ml/kg) 30 ml/kg IV at bolus once; Sepsis Protocol ordered. elsa sparks 16:33 16:02 PTT, ACTIVATED+COAG.LAB.BRZ ordered. [facility] EDAK 17:17 17:15 08/29/2018 17:15 Transfer ordered to [facility]. Diagnosis is bridger Acute kidney failure; Non-ST elevation (NSTEMI) myocardial infarction; Obesity, unspecified; Respiratory failure, unspecified. Reason for transfer: Higher level of care. Accepting physician is to [facility]. Condition is Serious. Problem is new. Symptoms have improved. [facility] 17:17 17:17 08/29/2018 17:15 Transfer ordered to [facility]. Diagnosis is bridger Acute kidney failure; Non-ST elevation (NSTEMI) myocardial infarction; Obesity, unspecified; Respiratory failure, unspecified; Hyperkalemia. Reason for transfer: Higher level of care. Accepting physician is to [facility]. Condition is Serious. Problem is new. Symptoms have improved. [facility] 17:18 16:18 Arterial Blood Gas+RC.LAB.BRZ ordered. [facility] EDAK 17:22 17:17 08/29/2018 17:15 Transfer ordered to [facility]. Diagnosis is bridger Acute kidney failure; Non-ST elevation (NSTEMI) myocardial infarction; Obesity, unspecified; Respiratory failure, unspecified; Hyperkalemia; Hypomagnesemia. Reason for transfer: Higher level of care. Accepting physician is to [facility]. Condition is Serious. Problem is new. Symptoms have improved. [facility] 20:30 16:09 URINE DRUG SCREEN+CHEM UR.LAB.BRZ ordered. [facility] EDAK 22:23 17:22 08/29/2018 17:15 Transfer ordered to [facility]. Diagnosis is tl2 Acute kidney failure; Non-ST elevation (NSTEMI) myocardial infarction; Obesity, unspecified; Respiratory failure, unspecified; Hyperkalemia; Hypomagnesemia; Elevated white blood cell count; Bandemia. Reason for transfer: Higher level of care. Accepting physician is to [facility]. Condition is Serious. Problem is new. Symptoms have improved. bridger
--- NOTE | 2018-08-29 17:21 | RAD REPORT ---
EXAM DESCRIPTION: RAD - Chest Single View - 08/29/2018 5:11 pm CLINICAL HISTORY: Unresponsive, intubated COMPARISON: August 22 TECHNIQUE: AP portable chest image was obtained 1705 hours . FINDINGS: Lung volumes are very low accentuating heart, vasculature and lung markings. Lung base ass essment is very limited. Upper and mid lung estrella are clear of any significant lung parenchymal proc ess or pulmonary edema. Endotracheal tube tip is approximately 1 centimeter above the alycia. NG tube extends below the diaphragm. Cardiomediastinal silhouette is exaggerated by supine positioning and v jaelyn shallow inspiration. No measurable pleural effusion and no pneumothorax. No acute bony abnormalit y seen. No acute aortic findings suspected. IMPRESSION: Very limited shallow inspiration exam showing no pulmonary edema or significant lung par enchymal finding. ET tube and NG tube appear in good position.
[2018-08-29 17:23] LABS: Barbiturates NEGATIVE (NEGATIVE); Benzodiazepines NEGATIVE (NEGATIVE); Cocaine NEGATIVE (NEGATIVE); METHAMPHETAM NEGATIVE (NEGATIVE); Methadone NEGATIVE (NEGATIVE); Opiates NEGATIVE (NEGATIVE); Phencyclidine NEGATIVE (NEGATIVE); THC Cannibis NEGATIVE (NEGATIVE)
[2018-08-29] MEDS ORDERED: HEPARIN 5000 UNIT/ML 1 ML VIAL ONE (17:42)
[2018-08-29] MEDS ORDERED: ASPIRIN 600 MG/SUPP PR ONE (17:42)
[2018-08-29] MEDS ORDERED: CEFTRIAXONE/SWI 1gm 1 GM/10 ML SYR ONE (17:43)
[2018-08-29] MEDS ORDERED: Magnesium Sulfate 2gm IVPB 2 G/50 ML BAG IV ONE (17:43)
[2018-08-29] MEDS ORDERED: HEPARIN/D5W 25,000 UNIT/500 ML BAG IV ONE (17:43)
[2018-08-29] MEDS ORDERED: FAMOTIDINE 20 MG/2 ML VIAL IV ONE (17:43)
[2018-08-29] MEDS ORDERED: MIDAZOLAM HCL 2 MG/2 ML INJ ONE ×2 (17:59→21:40)
[2018-08-29] MEDS ORDERED: PIPER/TAZO/NS 4.5gm 4.5 GM/100 ML BAG IV ONE (18:00)
[2018-08-29 18:10] LABS: Urine Amorphous Sediment 1+ /HPF (NONE SEEN); Urine Bacteria <20 /HPF (NONE SEEN); Urine Culture Reflex Order REFLEXED; Urine Mucus 2+ /HPF (NONE SEEN)
[2018-08-29] MEDS ORDERED: SOD POLYSTYREN SUL 15 GM/60 ML UCUP ONE (18:10)
[2018-08-29 20:05] LABS: Urine Blood 2+ (NEG); Urine Glucose 2+ (NEG); Urine Protein 2+ (NEG); Urine pH 5.5 (5.0-7.0)
[2018-08-29] MEDS ORDERED: Ringers Lactate 1,000 ML IV ONE (20:58)
--- NOTE | 2018-08-29 21:10 | RAD REPORT ---
EXAM DESCRIPTION: Andrat Single View08/29/2018 9:01 pm CLINICAL HISTORY: Shortness of breath COMPARISON: 08/29/2018 FINDINGS: Endotracheal tube has its tip 1 centimeter above the alycia. Nasogastric tube is present t he stomach. Patient is in a poor degree of inspiration. Lungs appear grossly clear. Heart is normal size IMPRESSION: No change since the prior exam
[2018-08-29 21:26] LABS: Potassium 4.9 mmol/L (3.5-5.1)
[2018-08-29 22:47] VITALS: TEMP 98
[2018-08-29 23:02] VITALS: BP 107/60; O2SAT 96
--- NOTE | 2018-08-30 06:39 | EKG ---
Test Date: 2018-08-29 Test Time: 16:06:36 Devil Tender: NATHALIE MEASUREMENT RESULTS: Intervals: Rate: 101 WV: 154 QRSD: 90 QT: 356 QTc: 461 [place]: P: 42 WV: 154 QRS: -1 T: 46 INTERPRETIVE STATEMENTS: Sinus tachycardia Otherwise normal ECG Compared to ECG 07/31/2018 14:18:13 Sinus rhythm no longer present Electronically Signed On 08-30-18 06:39:27 CDT by Dre Mai
== END 2018-08-29 22:23 | disposition short-term general hospital (02) ==
LOC: ER 16:00
DX: I21.4 Non-ST elevation (NSTEMI) myocardial infarction (principal); N17.9 Acute kidney failure, unspecified; J96.90 Respiratory failure, unspecified, unspecified whether with hypoxia or hypercapnia; D72.825 Bandemia; E87.5 Hyperkalemia; E83.42 Hypomagnesemia; E66.9 Obesity, unspecified; I10 Essential (primary) hypertension; E11.9 Type 2 diabetes mellitus without complications; F32.9 Major depressive disorder, single episode, unspecified; J44.9 Chronic obstructive pulmonary disease, unspecified; Z79.4 Long term (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 of insulin; Z88.6 Allergy status to analgesic agent
CPT/HCPCS: 36415; 70450; 71045 ×2; 80048 ×2; 80076; 80307 ×8; 80320; 80329 ×2; 82550; 82553; 82805; 82962; 83605; 83690; 83735; 83880; 84145; 84484; 85025; 85610; 85730; 87040; 87070; 87086; 87088; 87205; 93005; 94002; J0696; J1644; J2250 ×2; J2930; J3475; J7030; 81003; 81015

== ENCOUNTER 2018-12-12 11:22 | Inpatient (IN) | payer MEDICARE ==
[2018-12-12] MEDS ORDERED: NA CHLORIDE 0.9% 500 ML ONE ×2 (11:43→12:22)
[2018-12-12] MEDS ORDERED: METHYLPREDNISOLONE 125 MG INJ ONE (11:43)
[2018-12-12] MEDS ORDERED: LEVALBUTEROL 1.25 MG/3 ML NEB ONE (11:43)
[2018-12-12 12:06] LABS: Absolute Lymphocytes (CBC) 2.7 K/uL (0.7-4.9); Absolute Monocytes 0.7 K/uL (0.1-1.3); Absolute Neutrophil 6.6 K/uL (1.8-8.0); Basophils % 0.8 % (0-1.3); Hematocrit 39.7 % (39.6-49.0); Lymphocytes % 26.5 % (15.3-44.8); MPV 8.1 fL (7.6-11.3); Monocytes % 6.5 % (3.3-12.3); RBC Red Blood Cell Count 4.44 M/uL (4.33-5.43)
--- NOTE | 2018-12-12 12:21 | EKG ---
Test Date: 2018-12-12 Test Time: 11:34:58 Field Laborer: MARILIA MEASUREMENT RESULTS: Intervals: Rate: 68 [place]: 168 QRSD: 84 QT: 370 QTc: 393 [place]: P: 20 [place]: 168 QRS: -45 T: -41 INTERPRETIVE STATEMENTS: Normal sinus rhythm Left axis deviation Minimal voltage criteria for LVH, may be normal variant Cannot rule out posterolateral infarct Abnormal ECG Compared to ECG 08/29/2018 16:06:36 Left-axis deviation now present Left ventricular hypertrophy now present Sinus tachycardia no longer present Electronically Signed On 12-12-18 12:20:51 INTERNAL CARVER by Dre Mai
[2018-12-12 12:28] LABS: BUN Blood Urea Nitrogen 70 mg/dL (7-18); Bicarbonate 22 mmol/L (21-32); Glucose Level 111 mg/dL (74-106); NT PRO-BNP 108 pg/mL (<125); Potassium 4.4 mmol/L (3.5-5.1); Sodium Level 141 mmol/L (136-145); Troponin (Emerg Dept Use Only) < 0.02 ng/mL (0.0-0.045)
--- NOTE | 2018-12-12 12:39 | RAD REPORT ---
EXAM DESCRIPTION: RAD - Chest Single View - 12/12/2018 12:31 pm CLINICAL HISTORY: DYSPNEA Chest pain. COMPARISON: Chest Single View dated 08/29/2018; Chest Single View dated 08/29/2018; Chest Single Vie w dated 08/22/2018; Chest Single View dated 07/31/2018 FINDINGS: Portable technique limits examination quality. The lungs are underinflated resulting vascular crowding. The heart is mildly enlarged in size. No dis placed fractures. IMPRESSION: Underinflated lungs.
--- NOTE | 2018-12-12 13:12 | ER ---
Nurse's Notes [facility] Name: Asim Burnett Age: 63 yrs Sex: Male : 1955 Arrival Date: 12/12/2018 Time: 11:24 Bed 17 Private MD: Diagnosis: Hypotension;Dehydration;Chronic obstructive pulmonary disease with (acute) exacerbation Presentation: 12/12 11:25 Presenting complaint: EMS states: He was having a lot of chest pain this weekend, that aj1 has now started to get better. He has been having shortness of breath and generalized weakness for the past week. His home health nurse checked his blood pressure and it was low. SBP was 98 on EMS arrival. Patient appears drowsy, awakens to verbal stimuli, but falls asleep as soon as he is not being stimulated. 11:25 Transition of care: patient was not received from another setting of care. Onset of [facility] symptoms was November 2018. Risk Assessment: Do you want to hurt yourself or someone else? Patient reports no desire to harm self or others. Initial Sepsis Screen: Does the patient meet any 2 criteria? RR > 20 per min. HR > 90 bpm. Yes Does the patient have a suspected source of infection? No. Patient's initial sepsis screen is negative. Care prior to arrival: None. 11:25 Method Of Arrival: EMS: [facility] 11:25 Acuity: ORACIO 2 aj Triage Assessment: 11:25 General: Appears uncomfortable, ill, Behavior is drowsy. Pain: Denies pain. aj1 Historical: - Allergies: 11:46 Ibuprofen; aj1 - Home Meds: 11:46 Albuterol Inhl [Active]; aripiprazole oral oral [Active]; Aspirin Oral [Active]; aj1 atorvastatin oral oral [Active]; clonazepam 1 mg Oral tab 1 tab QID PRN [Active]; enalapril maleate 20 mg Oral tab 1 tab once daily [Active]; lansoprazole oral oral [Active]; Lasix Oral [Active]; metformin 1,000 mg Oral TG24 1 tab 2 times per day [Active]; Metoprolol Tartrate Oral [Active]; Plavix Oral [Active]; spironolactone 25 mg Oral tab 1 tab once daily [Active]; - PMHx: 11:46 Anxiety; COPD; Depression; Diabetes - IDDM; High Cholesterol; Hypertension; Myocardial aj1 infarction; cardiac stent; - Immunization history:: Flu vaccine is up to date. - Social history:: Smoking status: Patient/guardian denies using tobacco. - Ebola Screening: : Patient denies travel to an Ebola-affected area in the 21 days before illness onset. - Family history:: not pertinent. - Hospitalizations: : No recent hospitalization is reported. Screenin:25 Abuse screen: Denies threats or abuse. Denies injuries from another. Nutritional aj1 screening: No deficits noted. Tuberculosis screening: No symptoms or risk factors identified. 16:45 Fall Risk No fall in past 12 months (0 pts). Secondary diagnosis (15 points) impaired aj1 mobility, IV access (20 points). Ambulatory Aid- None/Bed Rest/Nurse Assist (0 pts). Gait- Weak (10 pts.). Mental Status- Oriented to own ability (0 pts). Total Hodges Fall Scale indicates High Risk Score (45 or more points). As available patient and family educated on Fall Prevention Program and Strategies. Assessment: 11:25 General: Appears uncomfortable, ill, Behavior is cooperative, drowsy. Pain: Denies aj1 pain. Neuro: Level of Consciousness is lethargic, Patient awakens easily to verbal stimuli, but falls asleep as soon as he is not being stimulated. Bowling [employer] Engraver are equal bilaterally generalized weakness. Facial symmetry appears normal, Reports weakness. Cardiovascular: Reports chest pain earlier this week that has now resolved Heart tones S1 S2 present Patient's skin is warm and dry. Rhythm is sinus rhythm. Respiratory: Reports shortness of breath Airway is patent Respiratory effort is even, unlabored, Respiratory pattern is regular, symmetrical, Denies cough. GI: Abdomen is round non-distended. : No signs and/or symptoms were reported regarding the genitourinary system. EENT: No signs and/or symptoms were reported regarding the EENT system. Derm: Skin is pale. Musculoskeletal: Circulation, motion, and sensation intact. 12:37 Reassessment: Patient appears in no apparent distress at this time. No changes from aj1 previously documented assessment. Patient and/or family updated on plan of care and expected duration. Pain level reassessed. Patient is alert, oriented x 3, equal unlabored respirations, skin warm/dry/pink. 13:30 Reassessment: Patient appears in no apparent distress at this time. No changes from aj1 previously documented assessment. Patient and/or family updated on plan of care and expected duration. Pain level reassessed. Patient is alert, oriented x 3, equal unlabored respirations, skin warm/dry/pink. 14:24 Reassessment: Patient is sitting up awake in bed, states that he is hungry and would aj1 like a sandwich. Patient provided a sandwich, no further complaints at this time. 15:30 Reassessment: Patient and/or family updated on plan of care and expected duration. Pain aj1 level reassessed. General: Appears in no apparent distress. Behavior is calm, cooperative, appropriate for age. Pain: Denies pain. Neuro: Level of Consciousness is awake, alert, obeys commands. Cardiovascular: Patient's skin is warm and dry. Rhythm is sinus rhythm. Respiratory: Airway is patent Respiratory effort is even, unlabored, Respiratory pattern is regular, symmetrical. Derm: Skin is pink, warm \T\ dry. normal. Musculoskeletal: Circulation, motion, and sensation intact. 16:45 Reassessment: Patient appears in no apparent distress at this time. No changes from aj1 previously documented assessment. Patient and/or family updated on plan of care and expected duration. Pain level reassessed. Patient is alert, oriented x 3, equal unlabored respirations, skin warm/dry/pink. Vital Signs: 11:25 BP 81 / 53; Pulse 65; Resp 27; Temp 98.3; Pulse Ox 97% on 3 lpm NC; Weight 108.86 kg aj1 (R); Height 5 ft. 7 in. (170.18 cm) (R); Pain 0/10; 11:37 BP 88 / 59; Pulse 62; Resp 22; Pulse Ox 100% on 3 lpm NC; aj1 11:51 BP 89 / 52; Pulse 66; Resp 22; Pulse Ox 98% on 3 lpm NC; aj1 11:59 BP 90 / 56; Pulse 67; Resp 22; Pulse Ox 100% on 3 lpm NC; aj1 12:13 BP 85 / 58; Pulse 67; Resp 22; Pulse Ox 100% on Nebulizer Mask; aj1 12:24 BP 88 / 45; Pulse 65; Resp 20; Pulse Ox 100% on Nebulizer Mask; aj1 12:36 BP 94 / 59; Pulse 70; Resp 23; Pulse Ox 96% on 3 lpm NC; aj1 12:48 BP 91 / 55; Pulse 71; Resp 22; Pulse Ox 95% on 3 lpm NC; aj1 13:02 BP 101 / 67; Pulse 71; Resp 24; Pulse Ox 95% on 3 lpm NC; aj1 13:13 BP 98 / 53; Pulse 71; Resp 18; Pulse Ox 98% on 3 lpm NC; aj1 13:38 BP 97 / 58; Pulse 69; Resp 18; Pulse Ox 98% on 3 lpm NC; aj1 14:00 BP 105 / 68; Pulse 73; Resp 20; Pulse Ox 96% on 3 lpm NC; aj1 14:23 BP 94 / 67; Pulse 75; Resp 20; Pulse Ox 95% on 3 lpm NC; aj1 15:00 BP 103 / 71; Pulse 75; Resp 20; Pulse Ox 95% on 3 lpm NC; aj1 15:30 BP 100 / 76; Pulse 72; Resp 18; Pulse Ox 94% on 3 lpm NC; aj1 16:00 BP 98 / 56; Pulse 79; Resp 18; Pulse Ox 94% on 3 lpm NC; aj1 11:25 Body Mass Index 37.59 (108.86 kg, 170.18 cm) aj1 ED Course: 11:24 Patient arrived in ED. rn 11:24 Xu Lowry MD is Attending Physician. rn 11:25 No provider procedures requiring assistance completed. aj1 11:25 Arm band placed on. aj1 11:25 Patient has correct armband on for positive identification. Bed in low position. Call aj1 light in reach. Side rails up X 1. manager trading on. Pulse ox on. NIBP on. Warm blanket given. 11:39 Georgia Zabala, RN is Primary Nurse. aj1 11:39 EKG done, by library information technician. reviewed by Xu Lowry MD. at1 11:40 First set of blood cultures drawn by me. Inserted saline lock: 22 gauge in right hand, 3 using aseptic technique. Blood collected. 11:43 Triage completed. aj1 11:50 Initial lab(s) drawn, by me, sent to lab. dh3 11:55 Second set of blood cultures drawn by me. dh3 12:24 X-ray completed. Portable x-ray completed in exam room. Patient tolerated procedure jb2 well. 12:33 XRAY CXR (1 view) In Process Unspecified. EDMS 13:11 Hansa Sahu MD is Hospitalizing Provider. rn 16:45 Patient admitted, IV remains in place. aj1 16:45 Report given to MILLA Valentin on 2nd floor. aj1 Administered Medications: 11:30 Drug: SOLU-Medrol 125 mg Route: IVP; Site: left antecubital; aj1 12:00 Follow up: Response: No adverse reaction aj1 11:35 Drug: NS 0.9% 500 ml Route: IV; Rate: bolus; Site: left antecubital; aj1 12:00 Follow up: IV Status: Completed infusion; IV Intake: 500ml aj1 11:54 Drug: Xopenex (3) 1.25 mg Route: Inhalation; aj1 12:00 Follow up: Response: No adverse reaction aj1 12:14 Drug: NS 0.9% 500 ml Route: IV; Rate: bolus; Site: left forearm; aj1 12:45 Follow up: IV Status: Completed infusion; IV Intake: 500ml aj1 Point of Care Testing: Blood Glucose: 11:50 Blood Glucose: 106 mg/dL; dh3 Ranges: Intake: 12:00 IV: 500ml; Total: 500ml. aj1 12:45 IV: 500ml; Total: 1000ml. aj1 Outcome: 13:11 Decision to Hospitalize by Provider. rn 16:46 Admitted to Med/surg accompanied by tech, via wheelchair, with oxygen, with chart. aj1 16:46 Condition: stable 16:46 Discharge instructions given to patient, Instructed on the need for admit, Demonstrated understanding of instructions. 16:46 Patient left the ED. aj1 Signatures: Dispatcher [employer] EDMS Zachery Mehta jb1 Georgia Zabala, MILLA RN [email or web address] Ryland Novak2 Xu Lowry MD MD rn Gonzales, Amanda, oil well services superintendent EKG Feliciano1 Jannette Shepherd 3 Corrections: (The following items were deleted from the chart) 12:00 11:40 Inserted saline lock: 22 gauge in right hand, using aseptic technique. Blood jb1 collected. jb1 12:00 11:40 First set of blood cultures drawn by me, art ward1 12:00 11:50 Initial lab(s) drawn, by me, sent to lab. art jb1 12:00 11:55 Second set of blood cultures drawn by , art jb1 14:25 14:25 Reassessment: Patient appears in no apparent distress at this time. No changes aj1 from previously documented assessment. Patient and/or family updated on plan of care and expected duration. Pain level reassessed. Patient is alert, oriented x 3, equal unlabored respirations, skin warm/dry/pink. aj1
--- NOTE | 2018-12-12 13:13 | EDPHYS ---
Physician Documentation [facility] Name: Asim Burnett Age: 63 yrs Sex: Male : 1955 Arrival Date: 12/12/2018 Time: 11:24 Bed 17 Private MD: ED Physician Xu Lowry HPI: 12/12 13:07 This 63 yrs old Male presents to ER via EMS with complaints of sob. rn 13:07 The patient has shortness of breath at rest, with light activity. Onset: The rn symptoms/episode began/occurred 1 week(s) ago. Duration: The symptoms are continuous. The patient's shortness of breath is aggravated by exertion, light activity, talking, walking. Severity of symptoms: At their worst the symptoms were moderate in the emergency department the symptoms are unchanged. The patient has experienced similar episodes in the past. The patient has not recently seen a physician. Historical: - Allergies: 11:46 Ibuprofen; aj1 - Home Meds: 11:46 Albuterol Inhl [Active]; aripiprazole oral oral [Active]; Aspirin Oral [Active]; aj1 atorvastatin oral oral [Active]; clonazepam 1 mg Oral tab 1 tab QID PRN [Active]; enalapril maleate 20 mg Oral tab 1 tab once daily [Active]; lansoprazole oral oral [Active]; Lasix Oral [Active]; metformin 1,000 mg Oral TG24 1 tab 2 times per day [Active]; Metoprolol Tartrate Oral [Active]; Plavix Oral [Active]; spironolactone 25 mg Oral tab 1 tab once daily [Active]; - PMHx: 11:46 Anxiety; COPD; Depression; Diabetes - IDDM; High Cholesterol; Hypertension; Myocardial aj1 infarction; cardiac stent; - Immunization history:: Flu vaccine is up to date. - Social history:: Smoking status: Patient/guardian denies using tobacco. - Ebola Screening: : Patient denies travel to an Ebola-affected area in the 21 days before illness onset. - Family history:: not pertinent. - Hospitalizations: : No recent hospitalization is reported. ROS: 13:07 Constitutional: Negative for fever, chills, and weight loss, Eyes: Negative for injury, rn pain, redness, and discharge, Neck: Negative for injury, pain, and swelling, Cardiovascular: + chest pain Respiratory: + sob Abdomen/GI: Negative for abdominal pain, nausea, vomiting, diarrhea, and constipation, MS/Extremity: Negative for injury and deformity, Skin: Negative for injury, rash, and discoloration, Neuro: Negative for headache, numbness, tingling, and seizure. Exam: 13:07 Constitutional: Overweight male, appears dehydrated and weak Head/Face: rn Normocephalic, atraumatic. Eyes: Pupils equal round and reactive to light, extra-ocular motions intact. Lids and lashes normal. Conjunctiva and sclera are non-icteric and not injected. Cornea within normal limits. Periorbital areas with no swelling, redness, or edema. ENT: dry MM, no stridor Cardiovascular: Regular rate and rhyth. No pulse deficits. Respiratory: + diminished breath sounds bilaterally with mild tachypnea, no retractions Abdomen/GI: soft, non-tender MS/ Extremity: Pulses equal, no cyanosis. Neurovascular intact. Full, normal range of motion. Equal circumference. Neuro: Awake but somnolent, moves all 4 ext, sensation intact, 4/5 strength throughout Vital Signs: 11:25 BP 81 / 53; Pulse 65; Resp 27; Temp 98.3; Pulse Ox 97% on 3 lpm NC; Weight 108.86 kg aj1 (R); Height 5 ft. 7 in. (170.18 cm) (R); Pain 0/10; 11:37 BP 88 / 59; Pulse 62; Resp 22; Pulse Ox 100% on 3 lpm NC; aj1 11:51 BP 89 / 52; Pulse 66; Resp 22; Pulse Ox 98% on 3 lpm NC; aj1 11:59 BP 90 / 56; Pulse 67; Resp 22; Pulse Ox 100% on 3 lpm NC; aj1 12:13 BP 85 / 58; Pulse 67; Resp 22; Pulse Ox 100% on Nebulizer Mask; aj1 12:24 BP 88 / 45; Pulse 65; Resp 20; Pulse Ox 100% on Nebulizer Mask; aj1 12:36 BP 94 / 59; Pulse 70; Resp 23; Pulse Ox 96% on 3 lpm NC; aj1 12:48 BP 91 / 55; Pulse 71; Resp 22; Pulse Ox 95% on 3 lpm NC; aj1 13:02 BP 101 / 67; Pulse 71; Resp 24; Pulse Ox 95% on 3 lpm NC; aj1 13:13 BP 98 / 53; Pulse 71; Resp 18; Pulse Ox 98% on 3 lpm NC; aj1 13:38 BP 97 / 58; Pulse 69; Resp 18; Pulse Ox 98% on 3 lpm NC; aj1 14:00 BP 105 / 68; Pulse 73; Resp 20; Pulse Ox 96% on 3 lpm NC; aj1 14:23 BP 94 / 67; Pulse 75; Resp 20; Pulse Ox 95% on 3 lpm NC; aj1 15:00 BP 103 / 71; Pulse 75; Resp 20; Pulse Ox 95% on 3 lpm NC; aj1 15:30 BP 100 / 76; Pulse 72; Resp 18; Pulse Ox 94% on 3 lpm NC; aj1 16:00 BP 98 / 56; Pulse 79; Resp 18; Pulse Ox 94% on 3 lpm NC; aj1 11:25 Body Mass Index 37.59 (108.86 kg, 170.18 cm) aj MDM: 11:24 Patient medically screened. rn 13:07 Differential diagnosis: Bronchitis Chronic Obstructive Pulmonary Disease Myocardial rn Infarction pneumonia, Pneumothorax pulmonary edema, reactive airway disease. Data reviewed: vital signs, nurses notes, lab test result(s), EKG, radiologic studies, plain films, and as a result, I will admit patient. Counseling: I had a detailed discussion with the patient and/or guardian regarding: the historical points, exam findings, and any diagnostic results supporting the discharge/admit diagnosis, lab results, radiology results, the need for further work-up and treatment in the hospital. 13:10 ED course: Improved BP, + COPD exacerbation and dehydration with acute renal failure, rn admitted to Dr. Sahu.. 12/12 11:26 Order name: Blood Culture Adult (2) rn 12/12 11:26 Order name: BMP; Complete Time: 12:31 rn 12/12 11:26 Order name: CBC with Diff; Complete Time: 12:31 rn 12/12 11:26 Order name: NT PRO-BNP; Complete Time: 12:31 rn 12/12 11:26 Order name: Troponin (emerg Dept Use Only); Complete Time: 12:31 rn 12/12 11:54 Order name: Glucose, Ancillary Testing; Complete Time: 12:15 EDMS 12/12 11:26 Order name: XRAY CXR (1 view); Complete Time: 12:43 rn 12/12 11:26 Order name: EKG; Complete Time: 11:27 rn 12/12 11:26 Order name: Cardiac monitoring; Complete Time: 11:49 rn 12/12 11:26 Order name: EKG - Nurse/Tech; Complete Time: 11:55 rn 12/12 11:26 Order name: IV Saline Lock; Complete Time: 11:49 rn 12/12 11:26 Order name: Labs collected and sent; Complete Time: 11:49 rn 12/12 11:26 Order name: O2 Per Protocol; Complete Time: 11:49 rn 12/12 11:26 Order name: O2 Sat Monitoring; Complete Time: 11:49 rn 12/12 11:26 Order name: Glucose Level; Complete Time: 11:55 rn Administered Medications: 11:30 Drug: SOLU-Medrol 125 mg Route: IVP; Site: left antecubital; aj1 12:00 Follow up: Response: No adverse reaction aj1 11:35 Drug: NS 0.9% 500 ml Route: IV; Rate: bolus; Site: left antecubital; aj1 12:00 Follow up: IV Status: Completed infusion; IV Intake: 500ml aj1 11:54 Drug: Xopenex (3) 1.25 mg Route: Inhalation; aj1 12:00 Follow up: Response: No adverse reaction aj1 12:14 Drug: NS 0.9% 500 ml Route: IV; Rate: bolus; Site: left forearm; aj1 12:45 Follow up: IV Status: Completed infusion; IV Intake: 500ml aj1 Point of Care Testing: Blood Glucose: 11:50 Blood Glucose: 106 mg/dL; dh3 Ranges: Critical Glucose Levels:Adult <50 mg/dl or >400 mg/dl <40 mg/dl or >180 mg/dl Disposition: 13:10 Critical Care:. rn Disposition: 12/12/18 13:11 Hospitalization ordered by Hansa Sahu for Inpatient Admission. Preliminary diagnosis are Hypotension, Dehydration, Chronic obstructive pulmonary disease with (acute) exacerbation. - Bed requested for Telemetry/MedSurg (Inpatient). - Status is Inpatient Admission. aj1 - Condition is Stable. - Problem is new. - Symptoms have improved. UTI on Admission? No Critical care time excluding procedures: 13:10 Critical care time: Bedside Care: 30 minutes. Total time: 30 minutes rn Signatures: Dispatcher [employer] EDGeorgia Virgen RN RN aj1 Xu Lowry MD MD rn Smirch, Shelby, RN RN ss Corrections: (The following items were deleted from the chart) 13:08 13:07 Constitutional: Negative for fever, chills, and weight loss, Eyes: Negative for rn injury, pain, redness, and discharge, Neck: Negative for injury, pain, and swelling, Cardiovascular: + chest pain Respiratory: + sob Abdomen/GI: Negative for abdominal pain, nausea, vomiting, diarrhea, and constipation, MS/Extremity: Negative for injury and deformity, Skin: Negative for injury, rash, and discoloration, Neuro: Negative for headache, weakness, numbness, tingling, and seizure, rn 14:52 13:11 Hospitalization Ordered by Hansa Sahu MD for Inpatient Admission. Preliminary ss diagnosis is Hypotension; Dehydration; Chronic obstructive pulmonary disease with (acute) exacerbation. Bed requested for Telemetry/MedSurg (Inpatient). Status is Inpatient Admission. Condition is Stable. Problem is new. Symptoms have improved. UTI on Admission? No. rn 16:46 14:52 12/12/2018 13:11 Hospitalization Ordered by Hansa Sahu MD for Inpatient aj1 Admission. Preliminary diagnosis is Hypotension; Dehydration; Chronic obstructive pulmonary disease with (acute) exacerbation. Bed requested for Telemetry/MedSurg (Inpatient). Status is Inpatient Admission. Condition is Stable. Problem is new. Symptoms have improved. UTI on Admission? No. ss
[2018-12-12] MEDS ORDERED: NA CHLORIDE 0.9% 1,000 ML ONE (15:16)
[2018-12-12] MEDS ORDERED: PROMETHAZINE 25 MG TABLET PO PRN (16:35)
[2018-12-12] MEDS ORDERED: ONDANSETRON 4 MG/2 ML VIAL IV PRN (16:35)
[2018-12-12] MEDS: INSULIN -REGULAR HUMAN 50 UNIT/0.5 ML ML SQ SCH ×2 (16:35→21:56)
[2018-12-12] MEDS ORDERED: GLUCAGON 1 MG/VIAL IM PRN (16:41)
[2018-12-12] MEDS ORDERED: D50W 25 GM/50 ML SYRINGE IV PRN (16:41)
[2018-12-12 17:43] VITALS: BMI 37.5
[2018-12-12] MEDS: NA CHLORIDE 0.9% 1,000 ML IV SCH (17:53)
[2018-12-12] MEDS ORDERED: clonazePAM 1 MG TAB PO PRN (18:21)
[2018-12-12] MEDS: PANTOPRAZOLE 40MG TABLET PO SCH (18:37)
[2018-12-12] MEDS: IPRATROPIUM BROM 0.5MG/2.5ML NEB SCH (20:00)
[2018-12-12] MEDS: LEVALBUTEROL 1.25 MG/3 ML NEB NEB SCH (20:00)
[2018-12-12] MEDS ORDERED: HOME MED 1 EA UNK (Spironolactone [Spironolactone] 50 MG) PO SCH (21:00)
[2018-12-12] MEDS: SPIRONOLACTONE 25 MG TABLET PO SCH (21:00)
[2018-12-12] MEDS: ARFORMOTEROL TARTRATE 15 MCG/2 ML VIAL.NEB IH SCH (21:00)
[2018-12-12] MEDS ORDERED: HOME MED 1 EA UNK (Gabapentin [Gabapentin] 600 MG) PO SCH (21:00)
[2018-12-12] MEDS: GABAPENTIN 300 MG CAP PO SCH (21:53)
[2018-12-12] MEDS: predniSONE 20 MG TAB PO SCH (21:54)
[2018-12-12] MEDS: TRAZODONE 50 MG TABLET PO SCH (21:54)
[2018-12-12 22:41] LABS: Urine Appearance CLEAR; Urine Bilirubin NEGATIVE (NEG); Urine Blood NEGATIVE (NEG); Urine Color YELLOW; Urine Glucose 3+ (NEG); Urine Protein NEGATIVE (NEG); Urine Urobilinogen 0.2 mg/dL (0.2-1.0); Urine pH 5.5 (5.0-7.0)
[2018-12-12 22:44] LABS: Urine Microscopic Reflex NO UMIC
[2018-12-13] MEDS: NA CHLORIDE 0.9% 1,000 ML IV SCH ×3 (01:39→22:34)
[2018-12-13] MEDS: IPRATROPIUM BROM 0.5MG/2.5ML NEB SCH ×4 (02:00→19:46)
[2018-12-13] MEDS: LEVALBUTEROL 1.25 MG/3 ML NEB NEB SCH ×4 (02:00→19:46)
[2018-12-13 06:36] LABS: Albumin 3.5 g/dL (3.4-5.0); Bilirubin Total 0.3 mg/dL (0.2-1.0); Magnesium 1.9 mg/dL (1.8-2.4); Phosphorus 4.3 mg/dL (2.5-4.9); Potassium 4.7 mmol/L (3.5-5.1); Protein, Total 7.1 g/dL (6.4-8.2)
[2018-12-13 06:38] LABS: Absolute Lymphocytes (CBC) 0.9 K/uL (0.7-4.9); Absolute Monocytes 0.2 K/uL (0.1-1.3); Absolute Neutrophil 9.8 K/uL (1.8-8.0); Basophils % 0.1 % (0-1.3); Hematocrit 37.3 % (39.6-49.0); Lymphocytes % 8.4 % (15.3-44.8); MPV 8.3 fL (7.6-11.3); Monocytes % 2.1 % (3.3-12.3); RBC Red Blood Cell Count 4.16 M/uL (4.33-5.43)
[2018-12-13] MEDS: ARFORMOTEROL TARTRATE 15 MCG/2 ML VIAL.NEB IH SCH ×2 (08:01→19:46)
[2018-12-13] MEDS: INSULIN -REGULAR HUMAN 50 UNIT/0.5 ML ML SQ SCH ×4 (08:57→22:36)
[2018-12-13] MEDS: CLOPIDOGREL 75 MG TABLET PO SCH (09:00)
[2018-12-13] MEDS: ENALAPRIL 10 MG TAB PO SCH (09:00)
[2018-12-13] MEDS ORDERED: ENALAPRIL MALEATE 20 MG PO SCH (09:00)
[2018-12-13] MEDS: PANTOPRAZOLE 40MG TABLET PO SCH (09:00)
[2018-12-13] MEDS: AMLODIPINE 5 MG TAB PO SCH (09:00)
[2018-12-13] MEDS: FENOFIBRATE 160 MG TAB PO SCH (09:00)
[2018-12-13] MEDS: SPIRONOLACTONE 25 MG TABLET PO SCH ×2 (09:00→22:35)
[2018-12-13] MEDS ORDERED: HOME MED 1 EA UNK (Lansoprazole [Prevacid] 30 MG) PO SCH (09:00)
[2018-12-13] MEDS: GABAPENTIN 300 MG CAP PO SCH ×3 (09:00→22:34)
[2018-12-13] MEDS: ARIPiprazole 5 MG TAB PO SCH (09:01)
[2018-12-13] MEDS: predniSONE 20 MG TAB PO SCH ×2 (09:02→22:35)
--- NOTE | 2018-12-13 10:07 | P.HP ---
Certification for Inpatient Patient admitted to: Observation With expected LOS: <2 Midnights Patient will require the following post-hospital care: None Practitioner: I am a practitioner with admitting privileges, knowledge of patient current condition, hospital course, and medical plan of care. Services: Services provided to patient in accordance with Admission requirements found in Title 42 Section 412.3 of the Code of Federal Regulations Patient History Date of Service: 12/12/18 Reason for admission: acute kidney injury; status post fall; syncope History of Present Illness: Patient is a 63-year-old gentleman who came into the hospital with abdominal discomfort. Pain was mainly in the sternal region with radiation to his shoulder. Patient was recently in the hospital about a month ago for a week. He states he was at [facility] and had cardiac catheterization with stent placement. He was discharged home on cardiac meds which he is continued to take. He came into the hospital for the chest and abdominal discomfort. He will be admitted to the hospital for further workup of his shortness of breath. Allergies ibuprofen Allergy (Intermediate, Verified 07/03/18 21:22) Hives/Rash Home Medications: Albuterol Neb [Proventil 0.083% Neb Soln] 2.5 mg IH QIDP PRN 04/29/18 Fenofibrate 160 mg PO DAILY 04/29/18 Spironolactone 50 mg PO BID 04/29/18 Trazodone [Desyrel*] 50 mg PO BEDTIME 04/29/18 clonazePAM [Klonopin] 1 mg PO QIDP PRN 04/29/18 ARIPiprazole [Abilify*] 5 mg PO DAILY 06/09/18 Amlodipine [Norvasc*] 5 mg PO DAILY 06/09/18 Budesonide/Formoterol Fumarate [Symbicort 160-4.5 Mcg Inhaler] 2 puff IH BID 09/16 Enalapril Maleate [Vasotec] 20 mg PO DAILY 06/09/18 Gabapentin 600 mg PO TID 06/09/18 Lansoprazole [Prevacid] 30 mg PO DAILY 06/09/18 Metformin HCl 1,000 mg PO BID 06/09/18 Proair Hfa 90mcg/Inh 2 puff IH QIDP PRN 06/09/18 Ipratropium Neb [Atrovent*] 0.5 mg NEB Q4HP PRN #30 amp 06/13/18 Oxycodone HCl/Acetaminophen [Percocet 5/325 Tab*] 1 tab PO QIDP PRN tab predniSONE [Prednisone*] 20 mg PO BID #20 tab 06/13/18 Arformoterol Tartrate [Brovana] 15 mcg IH BID #60 ml 07/05/18 - Past Medical/Surgical History Has patient received pneumonia vaccine in the past: Yes Diabetic: Yes -: IDDM -: Hypertension -: hyperlipidemia -: anxiety -: depression -: Gastroesophageal reflux disease -: Obstructive sleep apnea -: (home 02 4L) -: Pancreatic surgery -: cholecystectomy -: several back surgery -: 2008 ercp, punctured something in his pacreas, then transfered to -: [facility] for open exploratory lap, had feeding tube that has reversed -: trach from previous surgery at [facility] - Family History Father Medical History: Heart disease, Diabetes Mother Medical History: Heart disease, Hypertension, Lung disease, GI disease, Diabetes , Stroke, Liver disease, Kidney disease Brother Medical History: Heart disease, Hypertension, Lung disease, Diabetes, Stroke, Liver disease, Kidney disease Notes: 2 brothers Sister Medical History: Heart disease, GI disease Notes: no known illness - Social History Smoking Status: Never smoker Alcohol use: No CD- Drugs: No Caffeine use: Yes Review of Systems 10-point ROS is otherwise unremarkable Physical Examination - Vital Signs Temperature: 97.9 F Blood Pressure: 104/59 Pulse: 92 Respirations: 20 Pulse Ox (%): 93 - Physical Exam General: Alert, In no apparent distress, Oriented x3 HEENT: Atraumatic, PERRLA, Mucous membr. moist/pink, EOMI, Sclerae nonicteric Neck: Supple, 2+ carotid pulse no bruit, No LAD, Without JVD or thyroid abnormality Respiratory: Clear to auscultation bilaterally, Normal air movement Cardiovascular: Regular rate/rhythm, Normal S1 S2 Gastrointestinal: Normal bowel sounds, Soft and benign, Non-distended, No tenderness Musculoskeletal: No clubbing, No swelling, No tenderness Integumentary: No rashes Neurological: Normal gait, Normal speech, Normal strength at 5/5 x4 extr, Normal tone, Normal affect Lymphatics: No axilla or inguinal lymphadenopathy - Studies Laboratory Data (last 24 hrs) 12/12/18 11:50: WBC 10.1, Hgb 13.3 L, Hct 39.7, Plt Count 265 12/12/18 11:50: Sodium 141, Potassium 4.4, BUN 70 H, Creatinine 2.55 H, Glucose 111 H Microbiology Data (last 24 hrs): 12/12/18 11:55 Blood - Blood Anaerobic Blood Culture - Final 12/12/18 11:40 Blood - Blood Anaerobic Blood Culture - Final Assessment & Plan - Problems (Diagnosis) (1) COPD exacerbation Onset Date: 08/23/18 Current Visit: No Status: Acute (2) Chest pain, rule out acute myocardial infarction Onset Date: 01/16/17 Current Visit: No Status: Acute (3) CAD (coronary artery disease) Onset Date: 05/08/17 Current Visit: No Status: Chronic Qualifiers: (4) CHF (congestive heart failure) Onset Date: 12/21/17 Current Visit: No Status: Chronic Qualifiers: (5) Chronic venous hypertension w ulceration Current Visit: No Status: Chronic (6) Diabetes mellitus Onset Date: 06/11/18 Current Visit: No Status: Chronic Qualifiers: (7) Diastolic dysfunction Onset Date: 12/21/17 Current Visit: No Status: Chronic (8) HTN (hypertension) Onset Date: 06/11/18 Current Visit: No Status: Chronic Qualifiers: (9) Obesity Onset Date: 06/11/18 Current Visit: No Status: Chronic - Plan 1. Serial troponins and EKG 2. Cardiology consultation 3. Echocardiogram and Evaluate for senior care facility placement 4. Anti-platelet therapy, anti coagulation, beta-mellisa, statin, and O2 as needed 5. IV morphine for pain 6. Nitro p.r.n. Discharge Plan: Home Plan to discharge in: 24 Hours - Advance Directives Does patient have a Living Will: Yes Does patient have a Durable POA for Healthcare: Yes - Code Status/Comfort Care Code Status Assessed: Yes Code Status: Full Code Comfort Measures: Palliative Care Critical Care: No Time Spent Managing PTS Care (In Minutes): 45
[2018-12-13 10:55] LABS: Blood Morphology Comment NOT SEEN (NOT SEEN); Platelet Estimate ADEQ; Urine White Blood Cell Casts OK
[2018-12-13] MEDS ORDERED: D50W 25 GM/50 ML SYRINGE IV PRN (14:04)
[2018-12-13] MEDS ORDERED: GLUCAGON 1 MG/VIAL IM PRN (14:04)
--- NOTE | 2018-12-13 16:11 | P.PN ---
Subjective Date of Service: 12/13/18 Chief Complaint: acute kidney injury; status post fall; syncope Subjective: Tolerating diet, Ambulating, Improving, Working w/ PT, Doing well Review of Systems 10-point ROS is otherwise unremarkable Physical Examination - Vital Signs Temperature: 97.4 F Blood Pressure: 117/56 Pulse: 78 Respirations: 20 Pulse Ox (%): 98 - Physical Exam General: Alert, In no apparent distress HEENT: Atraumatic, PERRLA, EOMI Neck: Supple, JVD not distended Respiratory: Clear to auscultation bilaterally, Normal air movement Cardiovascular: Regular rate/rhythm, Normal S1 S2 Gastrointestinal: Normal bowel sounds, No tenderness Musculoskeletal: No tenderness Integumentary: No rashes Neurological: Normal speech, Normal tone, Normal affect Lymphatics: No axilla or inguinal lymphadenopathy - Studies Microbiology Data (last 24 hrs): 12/12/18 11:55 Blood - Blood Anaerobic Blood Culture - Final 12/12/18 11:40 Blood - Blood Anaerobic Blood Culture - Final Medications List Reviewed: Yes Assessment And Plan - Current Problems (Diagnosis) (1) JORGE (acute kidney injury) Current Visit: Yes Status: Acute Plan: JORGE most likely 2.2 to dehydration -IV fluids for now. -BUN.CR improved today (2) Acute exacerbation of chronic obstructive pulmonary disease (COPD) Onset Date: 02/28/17 Current Visit: No Status: Acute Plan: COPD exacerbation 2.2 to URI -Duonebs, steriods and oxygen -Elevated BS 2.2 to Steriods. On hold for now (3) Weakness Onset Date: 08/23/18 Current Visit: No Status: Chronic Plan: Weakness post cardiac Surgery -PT consulted. working with PT (4) CAD (coronary artery disease) Onset Date: 05/08/17 Current Visit: No Status: Chronic Qualifiers: Coronary Disease-Associated Artery/Lesion type: [place] artery [place] vs. transplanted heart: [place] heart Associated angina: without angina Qualified Code(s): I25.10 - Atherosclerotic heart disease of [place] coronary artery without angina pectoris (5) CHF (congestive heart failure) Onset Date: 12/21/17 Current Visit: No Status: Chronic Qualifiers: Heart failure type: diastolic Heart failure chronicity: chronic Qualified Code(s): I50.32 - Chronic diastolic (congestive) heart failure (6) Chronic venous hypertension w ulceration Current Visit: No Status: Chronic Qualifiers: Laterality: unspecified laterality Qualified Code(s): I87.319 - Chronic venous hypertension (idiopathic) with ulcer of unspecified lower extremity; L97.909 - Non-pressure chronic ulcer of unspecified part of unspecified lower leg with unspecified severity (7) Diabetes mellitus Onset Date: 06/11/18 Current Visit: No Status: Chronic Qualifiers: Diabetes mellitus type: type 2 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 Diabetes mellitus complication status: without complication Qualified Code(s): E11.9 - Type 2 diabetes mellitus without complications; Z79.4 - care home (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 of insulin (8) HTN (hypertension) Onset Date: 06/11/18 Current Visit: No Status: Chronic Qualifiers: Hypertension type: essential hypertension (9) Obesity Onset Date: 06/11/18 Current Visit: No Status: Chronic Qualifiers: Obesity type: unspecified obesity type Obesity classification: adult class 2 (BMI 35 - 39.9) Serious obesity comorbidity presence: unspecified whether serious comorbidity present Body mass index: unspecified BMI Qualified Code( s): E66.9 - Obesity, unspecified - Plan Pending clinical Improvement. Kidney Function improving today will continue fluids. Awaiting PT consult. Discharge Plan: Home Plan to discharge in: 48 Hours - Code Status/Comfort Care Code Status Assessed: Yes Critical Care: No
[2018-12-13] MEDS ORDERED: INSULIN -REGULAR HUMAN 50 UNIT/0.5 ML ML SQ SCH (16:30)
[2018-12-13] MEDS: TRAZODONE 50 MG TABLET PO SCH (22:35)
[2018-12-14] MEDS: LEVALBUTEROL 1.25 MG/3 ML NEB NEB SCH ×4 (01:54→19:47)
[2018-12-14] MEDS: IPRATROPIUM BROM 0.5MG/2.5ML NEB SCH ×4 (01:54→19:48)
[2018-12-14] MEDS: NA CHLORIDE 0.9% 1,000 ML IV SCH ×3 (05:48→22:35)
[2018-12-14] MEDS: PANTOPRAZOLE 40MG TABLET PO SCH (05:48)
[2018-12-14 06:10] LABS: Absolute Lymphocytes (CBC) 1.1 K/uL (0.7-4.9); Absolute Monocytes 0.3 K/uL (0.1-1.3); Absolute Neutrophil 8.1 K/uL (1.8-8.0); Basophils % 0.3 % (0-1.3); Hematocrit 37.8 % (39.6-49.0); Lymphocytes % 11.7 % (15.3-44.8); MPV 8.4 fL (7.6-11.3); Monocytes % 3.5 % (3.3-12.3); RBC Red Blood Cell Count 4.23 M/uL (4.33-5.43)
[2018-12-14 06:18] LABS: Bilirubin Total 0.3 mg/dL (0.2-1.0); Potassium 5.1 mmol/L (3.5-5.1); Protein, Total 7.8 g/dL (6.4-8.2)
[2018-12-14] MEDS: ARFORMOTEROL TARTRATE 15 MCG/2 ML VIAL.NEB IH SCH ×2 (08:08→19:47)
[2018-12-14] MEDS: INSULIN -REGULAR HUMAN 50 UNIT/0.5 ML ML SQ SCH ×4 (08:45→21:19)
[2018-12-14] MEDS: ARIPiprazole 5 MG TAB PO SCH (09:48)
[2018-12-14] MEDS: FENOFIBRATE 160 MG TAB PO SCH (09:48)
[2018-12-14] MEDS: predniSONE 20 MG TAB PO SCH ×2 (09:48→21:21)
[2018-12-14] MEDS: CLOPIDOGREL 75 MG TABLET PO SCH (09:48)
[2018-12-14] MEDS: GABAPENTIN 300 MG CAP PO SCH ×3 (09:48→21:21)
[2018-12-14] MEDS: ENALAPRIL 10 MG TAB PO SCH (09:50)
[2018-12-14] MEDS: SPIRONOLACTONE 25 MG TABLET PO SCH ×2 (09:50→21:20)
[2018-12-14] MEDS: AMLODIPINE 5 MG TAB PO SCH (09:50)
--- NOTE | 2018-12-14 13:33 | P.PN ---
Subjective Date of Service: 12/14/18 Chief Complaint: acute kidney injury; status post fall; syncope pt seen and examined ,no overnight events,pt denied chest pain or sob continue PT d/c plan pending placement Review of Systems 10-point ROS is otherwise unremarkable Physical Examination - Vital Signs Temperature: 97.2 F Blood Pressure: 133/67 Pulse: 74 Respirations: 24 Pulse Ox (%): 98 - Physical Exam General: Alert, Oriented x3 HEENT: Atraumatic Neck: Supple Respiratory: Clear to auscultation bilaterally Cardiovascular: No edema, Normal pulses, Regular rate/rhythm, Normal S1 S2 Gastrointestinal: Normal bowel sounds, Soft and benign, Non-distended Integumentary: No rashes, No significant lesion Neurological: Normal gait - Studies Laboratory Data (last 24 hrs) 12/14/18 05:22: Sodium 139, Potassium 5.1, BUN 42 H D, Creatinine 1.36 H, Glucose 299 H, Total Bilirubin 0.3, AST 16, ALT 27, Alkaline Phosphatase 47 12/14/18 05:22: WBC 9.6, Hgb 12.9 L, Hct 37.8 L, Plt Count 252 12/13/18 17:20: Glucose 537 H* Microbiology Data (last 24 hrs): 12/12/18 11:55 Blood - Blood Anaerobic Blood Culture - Final 12/12/18 11:40 Blood - Blood Anaerobic Blood Culture - Final Medications List Reviewed: Yes Assessment And Plan - Current Problems (Diagnosis) (1) JORGE (acute kidney injury) Current Visit: Yes Status: Acute (2) Acute and chronic respiratory failure Onset Date: 12/21/17 Current Visit: No Status: Chronic Qualifiers: (3) COPD exacerbation Onset Date: 08/23/18 Current Visit: No Status: Chronic - Plan Assessment And Plan JORGE COPD Weakness CAD CHF HTN DM type 2 plan: IVF hydration monitor BUN/CR avoid nephrotoxic meds duo nebs prednisone tapering o2 therpay prn pt/OT continue other home meds for other comorbidititis Discharge Plan: Retirement Plan to discharge in: 48 Hours
[2018-12-14] MEDS: ACETAMINOPHEN 500 MG TAB PO PRN (16:58)
[2018-12-14] MEDS: TRAZODONE 50 MG TABLET PO SCH (21:21)
[2018-12-15] MEDS: IPRATROPIUM BROM 0.5MG/2.5ML NEB SCH ×4 (01:38→20:05)
[2018-12-15] MEDS: LEVALBUTEROL 1.25 MG/3 ML NEB NEB SCH ×4 (01:38→20:05)
[2018-12-15 05:57] LABS: Absolute Lymphocytes (CBC) 1.1 K/uL (0.7-4.9); Absolute Monocytes 0.4 K/uL (0.1-1.3); Absolute Neutrophil 6.1 K/uL (1.8-8.0); Basophils % 0.1 % (0-1.3); Eosinophils % 0.1 % (0-4.4); Hematocrit 36.5 % (39.6-49.0); MPV 8.4 fL (7.6-11.3)
[2018-12-15 06:02] LABS: Albumin 3.6 g/dL (3.4-5.0); Bilirubin Total 0.3 mg/dL (0.2-1.0); Potassium 5.3 mmol/L (3.5-5.1); Protein, Total 7.2 g/dL (6.4-8.2)
[2018-12-15] MEDS: INSULIN -REGULAR HUMAN 50 UNIT/0.5 ML ML SQ SCH ×4 (07:30→21:38)
[2018-12-15] MEDS: ARFORMOTEROL TARTRATE 15 MCG/2 ML VIAL.NEB IH SCH ×2 (07:48→20:05)
[2018-12-15] MEDS ORDERED: SOD POLYSTYREN SUL 15 GM/60 ML UCUP PO ONE (08:09)
[2018-12-15] MEDS: ARIPiprazole 5 MG TAB PO SCH (09:14)
[2018-12-15] MEDS: predniSONE 20 MG TAB PO SCH ×2 (09:14→21:39)
[2018-12-15] MEDS: CLOPIDOGREL 75 MG TABLET PO SCH (09:14)
[2018-12-15] MEDS: GABAPENTIN 300 MG CAP PO SCH ×3 (09:14→21:39)
[2018-12-15] MEDS: PANTOPRAZOLE 40MG TABLET PO SCH (09:14)
[2018-12-15] MEDS: AMLODIPINE 5 MG TAB PO SCH (09:14)
[2018-12-15] MEDS: FENOFIBRATE 160 MG TAB PO SCH (09:14)
[2018-12-15] MEDS: ENALAPRIL 10 MG TAB PO SCH (09:14)
[2018-12-15] MEDS: SPIRONOLACTONE 25 MG TABLET PO SCH ×2 (09:14→21:39)
[2018-12-15] MEDS: NA CHLORIDE 0.9% 1,000 ML IV SCH ×2 (09:20→22:05)
--- NOTE | 2018-12-15 12:48 | P.PN ---
Subjective Date of Service: 12/15/18 Chief Complaint: acute kidney injury; status post fall; syncope pt seen and examined ,no overnight events pt mentioned that he had chest pain which he attributes to acid reflux Patient denied any shortness of breath, palpitation this pain is localized and the upper epigastric area with no radiation, denies sweating or nausea or vomiting We will continue to monitor PPI added Continue PT d/c plan pending placement Review of Systems 10-point ROS is otherwise unremarkable Physical Examination - Vital Signs Temperature: 97.1 F Blood Pressure: 142/85 Pulse: 77 Respirations: 20 Pulse Ox (%): 99 - Physical Exam General: Alert, Oriented x3 HEENT: Atraumatic, Normocephalic, PERRLA Neck: Supple Respiratory: Clear to auscultation bilaterally, Normal air movement Cardiovascular: No edema, Normal pulses, Regular rate/rhythm, Normal S1 S2 Gastrointestinal: Normal bowel sounds, Soft and benign, Non-distended, No tenderness Musculoskeletal: No clubbing, No erythema, No tenderness - Studies Medications List Reviewed: Yes Assessment And Plan - Current Problems (Diagnosis) (1) JORGE (acute kidney injury) Current Visit: Yes Status: Acute (2) Acute and chronic respiratory failure Onset Date: 12/21/17 Current Visit: No Status: Chronic Qualifiers: (3) COPD exacerbation Onset Date: 08/23/18 Current Visit: No Status: Chronic - Plan Assessment And Plan JORGE COPD Weakness CAD CHF HTN DM type 2 plan: IVF hydration monitor BUN/CR avoid nephrotoxic meds duo nebs prednisone tapering o2 therpay prn pt/OT continue other home meds for other comorbidititis
[2018-12-15] MEDS: TRAZODONE 50 MG TABLET PO SCH (21:40)
[2018-12-16] MEDS: LEVALBUTEROL 1.25 MG/3 ML NEB NEB SCH ×4 (01:30→19:45)
[2018-12-16] MEDS: IPRATROPIUM BROM 0.5MG/2.5ML NEB SCH ×4 (01:30→19:45)
[2018-12-16 06:02] LABS: Absolute Lymphocytes (CBC) 1.3 K/uL (0.7-4.9); Absolute Monocytes 0.4 K/uL (0.1-1.3); Absolute Neutrophil 7.2 K/uL (1.8-8.0); Basophils % 0.2 % (0-1.3); Hematocrit 38.3 % (39.6-49.0); Lymphocytes % 14.9 % (15.3-44.8); MPV 8.2 fL (7.6-11.3); RBC Red Blood Cell Count 4.33 M/uL (4.33-5.43)
[2018-12-16 06:03] LABS: Bilirubin Total 0.4 mg/dL (0.2-1.0); Potassium 4.6 mmol/L (3.5-5.1); Protein, Total 7.8 g/dL (6.4-8.2)
[2018-12-16] MEDS: INSULIN -REGULAR HUMAN 50 UNIT/0.5 ML ML SQ SCH ×4 (07:30→20:28)
[2018-12-16] MEDS: ARFORMOTEROL TARTRATE 15 MCG/2 ML VIAL.NEB IH SCH ×2 (07:50→19:45)
[2018-12-16] MEDS: NA CHLORIDE 0.9% 1,000 ML IV SCH ×3 (08:00→20:22)
[2018-12-16] MEDS: CLOPIDOGREL 75 MG TABLET PO SCH (09:04)
[2018-12-16] MEDS: AMLODIPINE 5 MG TAB PO SCH (09:04)
[2018-12-16] MEDS: SPIRONOLACTONE 25 MG TABLET PO SCH ×2 (09:04→20:22)
[2018-12-16] MEDS: GABAPENTIN 300 MG CAP PO SCH ×3 (09:04→20:22)
[2018-12-16] MEDS: predniSONE 20 MG TAB PO SCH (09:04)
[2018-12-16] MEDS: ENALAPRIL 10 MG TAB PO SCH (09:04)
[2018-12-16] MEDS: FENOFIBRATE 160 MG TAB PO SCH (09:04)
[2018-12-16] MEDS: PANTOPRAZOLE 40MG TABLET PO SCH (09:05)
[2018-12-16] MEDS: ARIPiprazole 5 MG TAB PO SCH (09:05)
--- NOTE | 2018-12-16 14:08 | P.PN ---
Subjective Date of Service: 12/16/18 Chief Complaint: acute kidney injury; status post fall; syncope pt seen and examined ,no overnight events Continue PT d/c plan pending placement Review of Systems 10-point ROS is otherwise unremarkable Physical Examination - Vital Signs Temperature: 96.5 F Blood Pressure: 119/73 Pulse: 79 Respirations: 20 Pulse Ox (%): 94 - Physical Exam General: Alert, Oriented x3 HEENT: Atraumatic, Normocephalic, PERRLA Neck: Supple Respiratory: Clear to auscultation bilaterally, Normal air movement Cardiovascular: No edema, Normal pulses, Regular rate/rhythm, Normal S1 S2 Gastrointestinal: Normal bowel sounds, Soft and benign, Non-distended Musculoskeletal: No erythema Integumentary: No rashes Neurological: Normal strength at 5/5 x4 extr - Studies Medications List Reviewed: Yes Assessment And Plan - Current Problems (Diagnosis) (1) JORGE (acute kidney injury) Current Visit: Yes Status: Acute (2) Acute and chronic respiratory failure Onset Date: 12/21/17 Current Visit: No Status: Chronic Qualifiers: (3) COPD exacerbation Onset Date: 08/23/18 Current Visit: No Status: Chronic - Plan Assessment And Plan JORGE COPD Weakness CAD CHF HTN DM type 2 plan: IVF hydration monitor BUN/CR avoid nephrotoxic meds duo nebs prednisone tapering o2 therpay prn pt/OT continue other home meds for other comorbidititis Discharge Plan: Long-Term Plan to discharge in: 24 Hours
[2018-12-16] MEDS: TRAZODONE 50 MG TABLET PO SCH (20:22)
[2018-12-16] MEDS: ACETAMINOPHEN 500 MG TAB PO PRN (20:22)
[2018-12-17] MEDS: LEVALBUTEROL 1.25 MG/3 ML NEB NEB SCH ×4 (01:30→20:00)
[2018-12-17] MEDS: IPRATROPIUM BROM 0.5MG/2.5ML NEB SCH ×4 (01:30→20:00)
[2018-12-17 06:23] LABS: Absolute Lymphocytes (CBC) 3.1 K/uL (0.7-4.9); Absolute Monocytes 0.5 K/uL (0.1-1.3); Absolute Neutrophil 5.4 K/uL (1.8-8.0); Basophils % 0.2 % (0-1.3); Eosinophils % 0.6 % (0-4.4); Hematocrit 37.3 % (39.6-49.0); Lymphocytes % 34.3 % (15.3-44.8); Monocytes % 5.7 % (3.3-12.3)
[2018-12-17] MEDS: NA CHLORIDE 0.9% 1,000 ML IV SCH ×2 (06:34→13:27)
[2018-12-17 06:48] LABS: ALT/SGPT 26 U/L (12-78); AST/SGOT 23 U/L (15-37); Albumin 3.5 g/dL (3.4-5.0); Alkaline Phosphatase 45 U/L (45-117); BUN Blood Urea Nitrogen 21 mg/dL (7-18); Bicarbonate 25 mmol/L (21-32); Bilirubin Total 0.4 mg/dL (0.2-1.0); Glucose Level 220 mg/dL (74-106); Potassium 3.8 mmol/L (3.5-5.1); Protein, Total 6.8 g/dL (6.4-8.2); Sodium Level 137 mmol/L (136-145)
[2018-12-17] MEDS: ARFORMOTEROL TARTRATE 15 MCG/2 ML VIAL.NEB IH SCH ×2 (07:58→20:00)
[2018-12-17] MEDS: INSULIN -REGULAR HUMAN 50 UNIT/0.5 ML ML SQ SCH ×4 (08:12→20:39)
[2018-12-17] MEDS: PANTOPRAZOLE 40MG TABLET PO SCH (08:12)
[2018-12-17] MEDS: predniSONE 10 MG TAB PO SCH (08:35)
[2018-12-17] MEDS: GABAPENTIN 300 MG CAP PO SCH ×3 (08:35→20:35)
[2018-12-17] MEDS: ARIPiprazole 5 MG TAB PO SCH (08:35)
[2018-12-17] MEDS: ENALAPRIL 10 MG TAB PO SCH (08:35)
[2018-12-17] MEDS: AMLODIPINE 5 MG TAB PO SCH (08:35)
[2018-12-17] MEDS: CLOPIDOGREL 75 MG TABLET PO SCH (08:35)
[2018-12-17] MEDS: FENOFIBRATE 160 MG TAB PO SCH (08:35)
[2018-12-17] MEDS: SPIRONOLACTONE 25 MG TABLET PO SCH ×2 (08:35→20:35)
[2018-12-17] MEDS ORDERED: POTASSIUM 25 MEQ EFFERV TAB PO ONE (09:00)
--- NOTE | 2018-12-17 14:19 | P.PN ---
Subjective Date of Service: 12/17/18 Chief Complaint: acute kidney injury; status post fall; syncope Subjective: Doing well (No complaints noted.) Physical Examination - Vital Signs Temperature: 98 F Blood Pressure: 129/80 Pulse: 71 Respirations: 20 Pulse Ox (%): 95 - Physical Exam General: Alert, In no apparent distress, Oriented x3, Cooperative HEENT: Atraumatic Neck: Supple Respiratory: Clear to auscultation bilaterally, Normal air movement Cardiovascular: Normal pulses, Regular rate/rhythm Gastrointestinal: Normal bowel sounds, Soft and benign, Non-distended, No tenderness, No masses, No rebound, No guarding Musculoskeletal: No erythema, No tenderness, No warmth Integumentary: No tenderness/swelling, No erythema, No warmth, No cyanosis Neurological: Normal speech, Normal strength at 5/5 x4 extr, Normal tone, Normal affect - Studies Microbiology Data (last 24 hrs): 12/12/18 11:55 Blood - Blood Aerobic Blood Culture - Final No growth in 5 days. 12/12/18 11:55 Blood - Blood Anaerobic Blood Culture - Final 12/12/18 11:40 Blood - Blood Aerobic Blood Culture - Final No growth in 5 days. 12/12/18 11:40 Blood - Blood Anaerobic Blood Culture - Final Medications List Reviewed: Yes Assessment & Plan Discharge Plan: Other (alf facility) Plan to discharge in: 24 Hours Physician Review Additional Text: Impression: Acute renal injury, resolved COPD exacerbation CAD Chronic CHF, diastolic Diabetes mellitus type 2 Hypertension Depression with anxiety Obesity, BMI 37.6 Plan: Acute renal injury, resolved: This appears resolved. Discontinue IV fluids. Recommend no further use of nonsteroidal anti-inflammatories. Future medications will need to be renally dosed. Will monitor closely. Patient awaiting transfer to skilled placement facility. COPD exacerbation: Continue with prednisone and COPD medication. Wean off oxygen. CAD: Continue medication including Plavix. Chronic CHF, diastolic: Continue medication including 1500 cc per day fluid restriction. Diabetes mellitus type 2: Restart metformin. Continue sliding scale. Hypertension: Continue blood pressure medication. Depression with anxiety: Continue home medication. Obesity, BMI 37.6: Continue address lifestyle modification education. Time Spent Managing Pts Care (In Minutes): 55
[2018-12-17] MEDS: METFORMIN HCL 500 MG TAB PO SCH (16:57)
[2018-12-17] MEDS ORDERED: ENOXAPARIN 40 MG/0.4 ML SQ SCH (17:00)
[2018-12-17] MEDS: ACETAMINOPHEN 500 MG TAB PO PRN (19:38)
[2018-12-17] MEDS: TRAZODONE 50 MG TABLET PO SCH (20:34)
[2018-12-18] MEDS: LEVALBUTEROL 1.25 MG/3 ML NEB NEB SCH ×3 (02:00→14:00)
[2018-12-18] MEDS: IPRATROPIUM BROM 0.5MG/2.5ML NEB SCH ×3 (02:00→14:00)
[2018-12-18 06:25] LABS: Potassium 4.3 mmol/L (3.5-5.1)
[2018-12-18] MEDS: ARFORMOTEROL TARTRATE 15 MCG/2 ML VIAL.NEB IH SCH (07:25)
[2018-12-18 08:16] VITALS: O2SAT 93
[2018-12-18] MEDS: INSULIN -REGULAR HUMAN 50 UNIT/0.5 ML ML SQ SCH ×2 (08:46→11:53)
[2018-12-18] MEDS: ARIPiprazole 5 MG TAB PO SCH (08:47)
[2018-12-18] MEDS: PANTOPRAZOLE 40MG TABLET PO SCH (08:47)
[2018-12-18] MEDS: METFORMIN HCL 500 MG TAB PO SCH (08:47)
[2018-12-18] MEDS: predniSONE 10 MG TAB PO SCH (08:47)
[2018-12-18] MEDS: SPIRONOLACTONE 25 MG TABLET PO SCH (08:47)
[2018-12-18] MEDS: ENALAPRIL 10 MG TAB PO SCH (08:48)
[2018-12-18] MEDS: AMLODIPINE 5 MG TAB PO SCH (08:48)
[2018-12-18] MEDS: CLOPIDOGREL 75 MG TABLET PO SCH (08:48)
[2018-12-18] MEDS: FENOFIBRATE 160 MG TAB PO SCH (08:48)
[2018-12-18] MEDS: GABAPENTIN 300 MG CAP PO SCH ×2 (08:48→14:00)
--- NOTE | 2018-12-18 09:35 | P.PN ---
Subjective Date of Service: 12/18/18 Primary Care Provider: Unknown Chief Complaint: acute kidney injury; status post fall; syncope Subjective: Doing well Physical Examination - Vital Signs Temperature: 97.0 F Blood Pressure: 115/61 Pulse: 76 Respirations: 18 Pulse Ox (%): 92 - Physical Exam General: Alert, In no apparent distress, Oriented x3, Cooperative HEENT: Atraumatic Neck: Supple Respiratory: Clear to auscultation bilaterally, Normal air movement Cardiovascular: Normal pulses, Regular rate/rhythm Gastrointestinal: Normal bowel sounds, Soft and benign, Non-distended, No tenderness, No masses, No rebound, No guarding Musculoskeletal: No tenderness, No warmth Integumentary: No tenderness/swelling, No erythema, No warmth, No cyanosis Neurological: Normal speech, Normal strength at 5/5 x4 extr, Normal tone - Studies Microbiology Data (last 24 hrs): 12/12/18 11:55 Blood - Blood Aerobic Blood Culture - Final No growth in 5 days. 12/12/18 11:55 Blood - Blood Anaerobic Blood Culture - Final 12/12/18 11:40 Blood - Blood Aerobic Blood Culture - Final No growth in 5 days. 12/12/18 11:40 Blood - Blood Anaerobic Blood Culture - Final Medications List Reviewed: Yes Assessment & Plan Discharge Plan: Other (residential facility) Plan to discharge in: 24 Hours Physician Review Additional Text: Impression: Acute renal injury, resolved COPD exacerbation CAD Chronic CHF, diastolic Diabetes mellitus type 2 Hypertension Hyperlipidemia GERD Depression with anxiety Obesity, BMI 37.6 Plan: Acute renal injury, resolved: This appears resolved. Patient taking good oral intake. Recommend no further use of nonsteroidal anti-inflammatories. Future medications will need to be renally dosed. Patient awaiting approval for transfer to skilled placement facility. COPD exacerbation: Continue with prednisone 10 mg daily. This can be weaned off. Patient continues with COPD medication-Brovana/albuterol. Continue with oxygen to maintain sats above 90%. CAD: Continue medication including Plavix 75 mg daily. Chronic CHF, diastolic: Continue medication including 1500 cc per day fluid restriction. Patient also takes Aldactone 50 mg 1 pill twice daily. Diabetes mellitus type 2: Continue with metformin a 1000 mg 1 pill twice daily. Continue sliding scale. Hypertension: Continue blood pressure medications-Norvasc 5 mg daily and enalapril 20 mg daily. Depression with anxiety: Continue home medications-Abilify 5 mg daily and trazodone 50 mg at bedtime. GERD: Patient continues with Protonix 40 mg daily. Hyperlipidemia: Patient continues with Tricor 160 mg daily. Obesity, BMI 37.6: Continue address lifestyle modification education. Time Spent Managing Pts Care (In Minutes): 55
--- NOTE | 2018-12-18 11:40 | P.DS ---
Admission Date: 12/14/18 Discharge Date: 12/18/18 Primary Care Provider: Unknown Disposition: TRANSFER TO SNF - MEDICAL Discharge Condition: FAIR Reason for Admission: acute kidney injury; status post fall; syncope Consultations: none Procedures: CXR: COMPARISON: Chest Single View dated 08/29/2018; Chest Single View dated 2017; Chest Single View dated 08/22/2018; Chest Single View dated 07/31/2018 FINDINGS: Portable technique limits examination quality. The lungs are underinflated resulting vascular crowding. The heart is mildly enlarged in size. No displaced fractures. IMPRESSION: Underinflated lungs. Medical problem list: Acute renal injury, resolved COPD exacerbation CAD Chronic CHF, diastolic Diabetes mellitus type 2 Hypertension Hyperlipidemia GERD Depression with anxiety Obesity, BMI 37.6 Diabetic neuropathy Brief History of Present Illness: 63-year-old male presented emergency room with fatigue, shortness of breath. Patient found to have acute renal injury likely from dehydration and COPD exacerbation. Patient was recently in the hospital in [place] for heart catheterization status post stent. Patient was admitted for further treatment. Hospital Course: Patient presented with fatigue and shortness of breath. Patient found to have acute renal injury likely from dehydration and COPD exacerbation. Patient did well with hydration. Renal function back to normal. Patient has done well with his COPD. Patient was evaluated for skilled placement. Patient was accepted. At discharge he will continue with oxygen to maintain sats above 90% . Patient will continue with prednisone 10 mg 1 pill daily for 7 days. Patient will continue with his COPD medication including Brovana 1 unit dose twice daily and albuterol 1 unit dose 3 times a day as needed for shortness of breath. Patient may follow up with pulmonology as an outpatient to further monitor. Patient will continue at the skilled facility to continue rehabilitation prior to discharge home. Patient with CAD. Patient with recent heart catheterization status post stent. Patient will continue with Plavix 75 mg daily. Recommend to follow up with cardiology as directed. Patient with chronic CHF. Patient continue with a 1500 cc per day fluid restriction and low-salt diet. Will decrease Aldactone to 25 mg 1 pill twice daily. Recommend to recheck lab-BMP in 1 week to monitor his progress. Recommend to recheck his weight daily. If his weight increases by more than 5 lb he is to contact cardiology as his medications may need to be adjusted. Further adjustment in medication may be required if with dehydration. Recommend to recheck lab-BMP in 1 week. Patient with diabetes type 2. Patient will continue with metformin 1000 mg 1 pill twice daily. Recommend blood sugar less than 140 fasting and less than 200 after meals. Further adjustment can be done by his PCP. Patient with hypertension. Patient will continue with Norvasc 5 mg daily and enalapril 20 mg daily. Recommend to maintain blood pressures less 150/80. Further adjustment can be done by his PCP or cardiology. Patient with depression and anxiety. Patient will continue with his medication including Abilify 5 mg daily and trazodone 50 mg at bedtime. Further adjustment can be done by his PCP or psychiatry. Patient with GERD. Patient will continue with Prevacid daily. Patient with hyperlipidemia. Patient will continue with Tricor 160 mg daily. Patient with obesity, BMI 37.6. Lifestyle modification education will be provided. Patient with diabetic neuropathy. Patient will continue with gabapentin 600 mg 3 times a day. Vital Signs/Physical Exam: Temp Pulse Resp BP Pulse Ox 97.0 F 76 18 115/61 92 12/18/18 09:35 12/18/18 09:35 12/18/18 09:35 12/18/18 09:35 12/18/18 09:35 General: Alert, In no apparent distress, Oriented x3, Cooperative HEENT: Atraumatic Neck: Supple Respiratory: Clear to auscultation bilaterally, Normal air movement Cardiovascular: Normal pulses, Regular rate/rhythm Gastrointestinal: Normal bowel sounds, Soft and benign, Non-distended, No tenderness, No masses, No rebound, No guarding Musculoskeletal: No erythema, No tenderness, No warmth Integumentary: No tenderness/swelling, No erythema, No warmth, No cyanosis Neurological: Normal speech, Normal strength at 5/5 x4 extr, Normal tone, Normal affect Laboratory Data at Discharge: WBC 9.1 K/uL (4.3-10.9) 12/17/18 05:43 Hgb 12.6 g/dL (13.6-17.9) L 12/17/18 05:43 Hct 37.3 % (39.6-49.0) L 12/17/18 05:43 Plt Count 264 K/uL (152-406) 12/17/18 05:43 Sodium 135 mmol/L (136-145) L 12/18/18 05:49 Potassium 4.3 mmol/L (3.5-5.1) 12/18/18 05:49 BUN 26 mg/dL (7-18) H 12/18/18 05:49 Creatinine 1.03 mg/dL (0.55-1.3) 12/18/18 05:49 Glucose 265 mg/dL (74-106) H 12/18/18 05:49 Phosphorus 4.3 mg/dL (2.5-4.9) 12/13/18 05:39 Magnesium 1.9 mg/dL (1.8-2.4) D 12/13/18 05:39 Total Bilirubin 0.4 mg/dL (0.2-1.0) 12/17/18 05:43 AST 23 U/L (15-37) 12/17/18 05:43 ALT 26 U/L (12-78) 12/17/18 05:43 Alkaline Phosphatase 45 U/L (45-117) 12/17/18 05:43 Home Medications: Albuterol Neb [Proventil 0.083% Neb Soln] 2.5 mg IH QIDP PRN 04/29/18 Fenofibrate 160 mg PO DAILY 04/29/18 Trazodone [Desyrel*] 50 mg PO BEDTIME 04/29/18 clonazePAM [Klonopin] 1 mg PO QIDP PRN 04/29/18 ARIPiprazole [Abilify*] 5 mg PO DAILY 06/09/18 Amlodipine [Norvasc*] 5 mg PO DAILY 06/09/18 Enalapril Maleate [Vasotec] 20 mg PO DAILY 06/09/18 Gabapentin 600 mg PO TID 06/09/18 Lansoprazole [Prevacid] 30 mg PO DAILY 06/09/18 Metformin HCl 1,000 mg PO BID 06/09/18 Proair Hfa 90mcg/Inh 2 puff IH QIDP PRN 06/09/18 Ipratropium Neb [Atrovent*] 0.5 mg NEB Q4HP PRN #30 amp 06/13/18 Oxycodone HCl/Acetaminophen [Percocet 5/325 Tab*] 1 tab PO QIDP PRN tab Arformoterol Tartrate [Brovana] 15 mcg IH BID #60 ml 09/06/18 Insulin -Regular Human [Novolin -R*] See Protocol SQ ACHS ml 12/14/18 Promethazine Tab [Phenergan*] 25 mg PO Q6HP PRN tab 12/14/18 Clopidogrel Bisulfate [Plavix] 75 mg PO DAILY #30 tablet 12/18/18 Spironolactone [Aldactone*] 25 mg PO BID #60 tab 12/18/18 predniSONE [Deltasone*] 10 mg PO DAILY #7 tab 12/18/18 New Medications: Clopidogrel Bisulfate [Plavix] 75 mg PO DAILY #30 tablet predniSONE [Deltasone*] 10 mg PO DAILY #7 tab Spironolactone [Aldactone*] 25 mg PO BID #60 tab Patient Discharge Instructions: 1. Patient will be transferred to skilled facility to continue his care. 2. Patient presented with fatigue and shortness of breath. Patient found to have acute renal injury likely from dehydration and COPD exacerbation. Patient did well with hydration. Renal function back to normal. Patient has done well with his COPD. Patient was evaluated for skilled placement. Patient was accepted. At discharge he will continue with oxygen to maintain sats above 90%. Patient will continue with prednisone 10 mg 1 pill daily for 7 days. Patient will continue with his COPD medication including Brovana 1 unit dose twice daily and albuterol 1 unit dose 3 times a day as needed for shortness of breath. Patient may follow up with pulmonology as an outpatient to further monitor. Patient will continue at the skilled facility to continue rehabilitation prior to discharge home. 3. Patient with CAD. Patient with recent heart catheterization status post stent. Patient will continue with Plavix 75 mg daily. Recommend to follow up with cardiology as directed. 4. Patient with chronic CHF. Patient continue with a 1500 cc per day fluid restriction and low-salt diet. Will decrease Aldactone to 25 mg 1 pill twice daily. Recommend to recheck lab-BMP in 1 week to monitor his progress. Recommend to recheck his weight daily. If his weight increases by more than 5 lb he is to contact cardiology as his medications may need to be adjusted. Further adjustment in medication may be required if with dehydration. Recommend to recheck lab-BMP in 1 week. 5. Patient with diabetes type 2. Patient will continue with metformin 1000 mg 1 pill twice daily. Recommend blood sugar less than 140 fasting and less than 200 after meals. Further adjustment can be done by his PCP. 6. Patient with hypertension. Patient will continue with Norvasc 5 mg daily and enalapril 20 mg daily. Recommend to maintain blood pressures less 150/80. Further adjustment can be done by his PCP or cardiology. 7. Patient with depression and anxiety. Patient will continue with his medication including Abilify 5 mg daily and trazodone 50 mg at bedtime. Further adjustment can be done by his PCP or psychiatry. 8. Patient with GERD. Patient will continue with Prevacid daily. 9. Patient with hyperlipidemia. Patient will continue with Tricor 160 mg daily. 10. Patient with obesity, BMI 37.6. Lifestyle modification education will be provided. 11. Patient with diabetic neuropathy. Patient will continue with gabapentin 600 mg 3 times a day. Diet: ADA Activity: Ad laureen Time spent managing pt's care (in minutes): 55
[2018-12-18 12:27] VITALS: BP 135/78; TEMP 97.3
== END 2018-12-18 14:52 | DRG 191 ==
LOC: ER 11:22 → ERHOLD 13:14 → 2ND 16:39 → OBSVTOIN 12-14 13:04
PROVIDERS: ADMIT Family Medicine; ATTEND Family Medicine
DX: J44.1 Chronic obstructive pulmonary disease with (acute) exacerbation (principal); N17.9 Acute kidney failure, unspecified; I50.32 Chronic diastolic (congestive) heart failure; I87.319 Chronic venous hypertension (idiopathic) with ulcer of unspecified lower extremity; L97.909 Non-pressure chronic ulcer of unspecified part of unspecified lower leg with unspecified severity; I25.10 Atherosclerotic heart disease of native coronary artery without angina pectoris; I11.0 Hypertensive heart disease with heart failure; E11.40 Type 2 diabetes mellitus with diabetic neuropathy, unspecified; Z79.84 Long term (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 of oral hypoglycemic drugs; E78.5 Hyperlipidemia, unspecified; K21.9 Gastro-esophageal reflux disease without esophagitis; F32.9 Major depressive disorder, single episode, unspecified; F41.9 Anxiety disorder, unspecified; E66.9 Obesity, unspecified; Z68.37 Body mass index [BMI] 37.0-37.9, adult; E86.0 Dehydration; Z95.5 Presence of coronary angioplasty implant and graft; Z79.4 Long term (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 of insulin
CPT/HCPCS: 36415; 71045; 80048; 80053; 81003; 82947; 82962; 83735; 83880; 84100; 84484; 85025; 87040; 93005; 94640; 96361; 96374; 97116; 97163; 97530; 99285; G0378; J1650; J2405; J2930; J7030; J7512; J7605

== ENCOUNTER 2019-02-05 11:59 | Inpatient (IN) | payer MEDICARE ==
--- OUTSIDE RECORDS SUMMARY | 2019-02-05 12:02 | XMS REPORT | Clinical Summary ---
:1955 Author Organization [facility] Address [address] [place] [address] Care Team Providers Name Role Phone Bebeto Jaffe Primary Care Provider Allergies Active Allergy Reactions Severity Noted Date Comments Ibuprofen 07/18/2016 Medications Medication Sig Dispensed Refills Start Date End Date Status PROAIR [...] DAY venlafaxine XR Take 150 mg by 0 Active (EFFEXOR-XR) 150 MG mouth daily. 24 hr capsule traZODone (DESYREL) Take 100 mg by 0 Active 100 MG tablet mouth nightly. fenofibrate [...] complication, with long-term current use of insulin ([facility]) enalapril (VASOTEC) Take 1 tablet 90 tablet 1 07/19/2017 Active 20 MG (20 mg total) tabletIndications: by mouth daily. Benign essential hypertension blood sugar Check glucose 4 400 strip 3 08/11/2017 Active diagnostic strips times a day (ONETOUCH VERIO) strip test stripsIndications: Type 2 diabetes mellitus with complication, with long-term current use of insulin ([facility]) insulin Use 1 syringe 270 each 1 01/02/2018 Active syringe-needle U-100 TID. 1 mL 31 gauge x 5/16 syringe furosemide (LASIX) Take 40 mg by 0 Active 40 mg tablet mouth 2 (two) times a day. spironolactone Take 50 mg by 0 Active (ALDACTONE) 50 MG mouth daily. tablet omeprazole Take 40 mg by 0 Active (PriLOSEC) 40 MG mouth 2 (two) capsule times a day. ARIPiprazole Take 10 mg by 0 Active (ABILIFY) 10 MG mouth daily. tablet clonAZEPAM Take 1 mg by 0 Active (KlonoPIN) 1 MG mouth 3 (three) tablet times a day as needed for seizures. atorvastatin Take 1 tablet 90 tablet 3 07/25/2018 Active (LIPITOR) 20 MG (20 mg total) tablet by mouth nightly. Default OP ins pen needle, diabetic Use 4 needles a 400 each 3 08/23/2018 Active (BD ULTRA-FINE TIERA day. Dx: E11.65 PEN NEEDLE) 32 gauge x 5/32" needle TOUJEO SOLOSTAR Inject 75 Units 22.5 mL 3 10/17/2018 Active U-300 INSULIN 300 under the skin unit/mL (1.5 mL) daily. insulin penIndications: Type 2 diabetes mellitus with complication, with long-term current use of insulin ([facility]) APIDRA SOLOSTAR Inject 30 units 33 mL 3 10/17/2018 Active U-100 INSULIN 100 in the morning, unit/mL insulin 36 units at penIndications: Type lunch and 36 2 diabetes mellitus units at dinner with complication, plus sliding with long-term scale. current use of insulin ([facility]) empagliflozin Take 1 tablet 30 tablet 1 11/19/2018 Active (JARDIANCE) 10 mg (10 mg total) tablet tablet by mouth daily. aspirin (ECOTRIN) 81 Take 81 mg by 0 Active MG enteric coated mouth daily. tablet clopidogrel (PLAVIX) Take 75 mg by 0 Active 75 mg tablet mouth daily. lisinopril Take 5 mg by 0 Active (PRINIVIL,ZESTRIL) 5 mouth daily. mg tablet metoprolol tartrate Take 50 mg by 0 Active (LOPRESSOR) 50 mg mouth daily. tablet metFORMIN TAKE 1 TABLET 180 tablet 3 11/21/2018 Active (GLUCOPHAGE) 1,000 BY MOUTH TWO mg tablet TIMES DAILY WITH MEALS lansoprazole Take 1 0 07/25/20 Discontinued (PREVACID) 30 MG capsule(s) 18 capsule every day by oral route. lansoprazole Take 30 mg by 0 05/23/2016 07/25/20 Discontinued (PREVACID) 30 MG mouth 2 (two) 18 capsule times a day. pen needle, diabetic Use 4 needles a 400 each 3 08/15/2016 08/23/20 Discontinued (BD ULTRA-FINE TIERA day 18 PEN NEEDLES) 32 gauge x 5/32" needle blood-glucose meter Use as 1 each 0 03/01/2017 03/01/20 (GloopleTOUCH VERIO FLEX instructed 18 START) kitIndications: Type 2 diabetes mellitus with complication, with long-term current use of insulin ([facility]) insulin lispro Inject 35 Units 105 mL 3 04/28/2017 03/20/20 Discontinued (HumaLOG KwikPen) under the skin 18 100 unit/mL 3 (three) times injection a day before penIndications: meals. 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, with long-term current use of insulin insulin GLARGINE Inject 70 Units 22.5 mL 1 08/14/2017 10/17/20 Discontinued (TOUJEO SOLOSTAR) under the skin 18 300 unit/mL (1.5 mL) daily. insulin penIndications: Type 2 diabetes mellitus with complication, with long-term current use of insulin ([facility]) insulin glulisine Inject under 0 10/17/20 Discontinued U-100 (APIDRA the skin. 18 SOLOSTAR U-100 Inject 30 units INSULIN) 100 unit/mL in the morning, insulin pen 32 units at lunch and 32 units at dinner plus sliding scale. metFORMIN Take 1,000 mg 0 11/20/19 Discontinued (GLUCOPHAGE) 1,000 by mouth 2 19 mg tablet (two) times a day with meals. atorvastatin Take 20 mg by 0 07/25/20 Discontinued (LIPITOR) 20 MG mouth nightly. [...] Encounters Date Type Specialty Care Team Description 11/20/2018 Refill Endocrinology Kimi Jack MD 11/19/2018 Office Visit Endocrinology Kimi Jack, Type 2 diabetes mellitus with complication, unspecified whether prison insulin use (HCC) ( Primary Dx); Coronary artery disease involving [place] heart without angina pectoris, unspecified vessel or lesion type; Mixed hyperlipidemia 10/17/2018 Orders Only Endocrinology Kimi Jack Type 2 diabetes MD mellitus with complication, with long-term current use of insulin (HCC) 08/23/2018 Orders Only Endocrinology Susanna Laboy MA 07/25/2018 Office Visit Endocrinology Kimi Jack Uncontrolled type 2 MD diabetes mellitus with complication, unspecified [place] insulin use status (Primary Dx) 06/14/2018 Documentation Endocrinology Susanna Laboy MA 05/22/2018 Orders Only Endocrinology Susanna Laboy MA 05/17/2018 Documentation Endocrinology Susanna Laboy MA 03/22/2018 Documentation Endocrinology Susanna Laboy MA 03/22/2018 Orders Only Endocrinology Susanna Laboy MA 03/20/2018 Office Visit Endocrinology Kimi Jack, Uncontrolled type 2 diabetes mellitus with complication, unspecified [place] insulin use status (Primary Dx); Hyperlipidemia, unspecified [...] with long-term current use of insulin after 02/04/2018 Family History Medical History Relation Name Comments [...] Assigned at Date Recorded Not on file Job Start Date Occupation Industry Not on file Not on file Not on file Travel History Travel Start Travel End No recent travel history available. Last Filed Vital Signs Vital Sign Reading Time Taken Blood Pressure 120/74 11/19/2018 9:14 AM [employer] Pulse 69 11/19/2018 9:14 AM [employer] Temperature - - Respiratory Rate - - Oxygen Saturation 95% 11/19/2018 9:14 AM [employer] Inhaled Oxygen Concentration - - Weight 113 kg (250 lb) 11/19/2018 9:14 AM [employer]ODUCT [employer] Height 170.2 cm (5' 7") 11/19/2018 9:14 AM [employer]ODUCT [employer] Body Mass Index 39.16 11/19/2018 9:14 AM [employer]ODUCT [employer] Plan of Treatment Date Type Specialty Care Team Description 02/25/2019 Office Visit Endocrinology Kimi Jack MD [address] [facility] [address] [place] [id number] Health Maintenance Due Date Last Done Comments COLON CANCER SCREENING 2003 SHINGLES VACCINES (#1) 2003 DIABETIC FOOT EXAM 10/10/2017 10/10/2016, 10/10/2016, 07/18/2016 65+ PNEUMOCOCCAL VACCINE (2 of 2 - 2018 09/29/2017 PPSV23) INFLUENZA VACCINE 05/30/2019 07/27/2017, 07/13/2016 URINE MICROALBUMIN 07/19/2019 07/19/2018, 01/07/2017, 01/07/2017, Additional history exists DIABETIC RETINAL EYE EXAM 03/20/2020 03/20/2018, 04/28/2017, 04/28/2016 PNEUMOCOCCAL POLYSACCHARIDE VACCINE Completed 09/29/2017 AGE 65 AND OVER Procedures Procedure Name Priority Date/Time Associated Diagnosis Comments HEMOGLOBIN A1C Routine 11/10/2018 8:08 Uncontrolled type 2 Results for this AM [employer] diabetes mellitus with procedure are in complication, the results unspecified [place] section. insulin use status BASIC METABOLIC PANEL Routine 11/10/2018 8:08 Uncontrolled type 2 Results for this AM [employer] diabetes mellitus with procedure are in complication, the results unspecified prison section. insulin use status VITAMIN D 25 HYDROXY Routine 07/19/2018 7:17 Results for this LEVEL AM CDT procedure are in the results section. MICROALBUMIN / Routine 07/19/2018 7:17 Results for this CREATININE URINE AM CDT procedure are in RATIO the results section. LIPID PANEL Routine 07/19/2018 7:17 Uncontrolled type 2 Results for this AM CDT diabetes mellitus with procedure are in complication, the results unspecified prison section. insulin use status Hyperlipidemia, unspecified hyperlipidemia type COMPREHENSIVE Routine 07/19/2018 7:17 Uncontrolled type 2 Results for this METABOLIC PANEL AM CDT diabetes mellitus with procedure are in complication, the results unspecified [place] section. insulin use status HEMOGLOBIN A1C Routine 07/19/2018 7:17 Uncontrolled type 2 Results for this AM CDT diabetes mellitus with procedure are in complication, the results unspecified prison section. insulin use status POC GLUCOSE Routine 03/20/2018 10:34 Uncontrolled type 2 Results for this AM CDT diabetes mellitus with procedure are in complication, the results unspecified [place] section. insulin use status POC GLYCOSYLATED Routine 03/20/2018 10:34 Uncontrolled type 2 Results for this HEMOGLOBIN (HGB A1C) AM CDT diabetes mellitus with procedure are in complication, the results unspecified prison section. insulin use status BONE DENSITY Routine 03/20/2018 10:09 Uncontrolled type 2 Results for this AM CDT diabetes mellitus with procedure are in other circulatory the results complication, with section. long-term current use of insulin Osteopenia, unspecified location after 02/04/2018 Results Hemoglobin A1c (11/10/2018 8:08 AM PRODUCT AMBASSADOR)Only the most recent of2 resultswithin the time period is included. Hemoglobin A1C 8.9 (H) <5.7 % of total [facility] Comment: Hgb [place] For someone without known diabetes, a hemoglobin [...] Narrative Performed At FASTING:YES [facility] FASTING: YES Resulting Agency Comment Performing Organization Information: Site ID: [id number] [facility] Address: [address] [place] [phone] Director: Mitzi Lyons Performing Organization Address City/State/Zipcode Phone Number [employer] [place] [phone] Basic metabolic panel (11/10/2018 8:08 AM PRODUCT AMBASSADOR) Glucose 118 (H) 65 - 99 mg/dL [facility] Comment: [place] Fasting reference interval For someone without known diabetes, a glucose value between 100 and 125 mg/dL is consistent with prediabetes and should be confirmed with a follow-up test. BUN, whole blood 19 7 - 25 mg/dL [facility] Creatinine 0.86 0.70 - 1.25 [facility] Comment: mg/dL [place] For patients >49 years of age, the reference limit for Creatinine is approximately 13% higher for people identified as -Faroese. EGFR Non-Afr. Faroese 91 > OR=60 [facility] mL/min/1.73m2 [place] EGFR 105 > OR=60 [facility] mL/min/1.73m2 [place] BUN/creatinine ratio NOT APPLICABLE 6 - 22 (calc) [facility] [place] Sodium 137 135 - 146 mmol/L [facility] Potassium 4.6 3.5 - 5.3 mmol/L [facility] [place] Chloride 101 98 - 110 mmol/L [facility] CO2 26 20 - 32 mmol/L [facility] [place] Calcium 9.9 8.6 - 10.3 mg/dL [facility] Specimen Blood Narrative Performed At FASTING:YES [facility] FASTING: YES Resulting Agency Comment Performing Organization Information: Site ID: [id number] Name: [facility] Address: [address] [place] [phone] Director: Mitzi Lyons Performing Organization Address [facility] [place] [address] Microalbumin / creatinine urine ratio (07/19/2018 7:17 AM CDT) Creatinine, urine, 137 20 - 320 mg/dL [facility] Microalbumin, urine 0.6 See Note: mg/dL [facility] Comment: [place] Reference Range: Reference Range Not established Microalbumin/creatini 4 <30 mcg/mg creat [facility] ne ratio Comment: [place] The ADA defines abnormalities in albumin excretion as follows: Category Result (mcg/mg creatinine) Normal<30 Microalbuminuria 30-299 Clinical albuminuria > RC=786 The ADA recommends that at least two of three specimens collected within a 3-6 month period be abnormal before considering a patient to be within a diagnostic category. Narrative Performed At FASTING:YES [facility] FASTING: YES Resulting Agency Comment Performing Organization Information: Site ID: [id number] Name: [facility] Address: [address] [place] [phone] Director: Mitzi Lyons Performing Organization Address [facility] [place] [address] Vitamin D 25 hydroxy level (07/19/2018 7:17 AM CDT) Vitamin D, 25-hydroxy 19 (L) 30 - 100 ng/mL [facility] Comment: [place] Vitamin D Status 25-OH Vitamin D: Deficiency:<20 ng/mL Insufficiency: 20 - 29 ng/mL Optimal: > or=30 ng/mL For 25-OH Vitamin D testing on patients on D2-supplementation and patients for whom quantitation of D2 and D3 fractions is required, the QuestAssureD(TM) 25-OH VIT D, (D2,D3), LC/MS/MS is recommended: order code 01948 (patients >2yrs). For more information on this test, go to: http://education.Tapomat/faq/RPQ488 (This link is being provided for informational/educational purposes only.) Narrative Performed At FASTING:YES [facility] FASTING: YES Resulting Agency Comment Performing Organization Information: Site ID: [id number] Name: [facility] Address: [address] [place] [phone] Director: Mitzi Lyons Performing Organization Address [facility] Phone Number [place] [facility] [place] [address] [place] [phone] Lipid panel (07/19/2018 7:17 AM CDT) Cholesterol, total 189 <200 mg/dL [facility] [place] HDL cholesterol 38 (L) >40 mg/dL [facility] [place] Triglycerides 262 (H) <150 mg/dL [facility] [place] LDL cholesterol 114 (H) mg/dL (calc) [facility] calculated Comment: [place] Reference range: <100 Desirable range <100 mg/dL for primary prevention; <70 mg/dL for patients with CHD or diabetic patients with > or=2 CHD risk factors. LDL-C is now calculated using the Bud calculation, which is a validated novel method providing better accuracy than the Friedewald equation in the estimation of LDL-C. Pillo GUERRA et al. BRENDA. 2013;310(19): 9093-3521 (http://education.MuscleGenes.CelluComp/faq/MDO809) Cholesterol/HDL ratio 5.0 (H) <5.0 (calc) [facility] Non-HDL cholesterol 151 (H) <130 mg/dL [facility] Comment: (calc) [place] For patients with diabetes plus 1 major ASCVD risk factor, treating to a non-HDL-C goal of <100 mg/dL (LDL-C of <70 mg/dL) is considered a therapeutic option. Specimen Blood Narrative Performed At FASTING:YES [facility] FASTING: YES Resulting Agency Comment Performing Organization Information: Site ID: [id number] Name: [facility] Address: [address] [place] [id number] Director: Mitzi Lyons Performing Organization Address City/State/Zipcode Phone Number [place] [facility] [place] [address] [place] [phone] Comprehensive metabolic panel (07/19/2018 7:17 AM CDT) Glucose 107 (H) 65 - 99 mg/dL [facility] Comment: [place] Fasting reference interval For someone without known diabetes, a glucose value between 100 and 125 mg/dL is consistent with prediabetes and should be confirmed with a follow-up test. BUN, whole blood 33 (H) 7 - 25 mg/dL [facility] [place] Creatinine 0.93 0.70 - 1.25 [facility] Comment: mg/dL [place] For patients >49 years of age, the reference limit for Creatinine is approximately 13% higher for people identified as -Faroese. EGFR Non-Afr. [place]oese 86 > OR=60 [facility] mL/min/1.73m2 [place] EGFR 100 > OR=60 [facility] mL/min/1.73m2 [place] BUN/creatinine ratio 35 (H) 6 - 22 (calc) [facility] [place] Sodium 139 135 - 146 mmol/L [facility] [place] Potassium 4.4 3.5 - 5.3 mmol/L [facility] [place] Chloride 105 98 - 110 mmol/L [facility] [place] CO2 27 20 - 32 mmol/L [facility] [place] Calcium 9.6 8.6 - 10.3 mg/dL [facility] [place] Protein 6.8 6.1 - 8.1 g/dL [facility] [place] Albumin, S 4.2 3.6 - 5.1 g/dL [facility] [place] Globulin, total 2.6 1.9 - 3.7 g/dL [facility] (calc) [place] Albumin/globulin ratio 1.6 1.0 - 2.5 (calc) [facility] [place] Total bilirubin 0.4 0.2 - 1.2 mg/dL [facility] [place] Alkaline phosphatase 46 40 - 115 U/L [facility] [place] AST 21 10 - 35 U/L [facility] [place] ALT 26 9 - 46 U/L [facility] [place] Specimen Blood Narrative Performed At FASTING:YES [facility] FASTING: YES Resulting Agency Comment Performing Organization Information: Site ID: [id number] Name: [facility] Address: [address] [place] [phone] Director: Mitzi Lyons Performing Organization Address City/State/Zipcode Phone Number [employer] App [address] [address] POC glycosylated hemoglobin (Hb A1C) (03/20/2018 10:34 AM CDT) POC Hemoglobin A1C 8.6 % Specimen Blood POC glucose (03/20/2018 10:34 AM CDT) POC glucose 136Comment: non fasting 65 - 100 Specimen Blood Bone Density (03/20/2018 10:09 AM CDT) Narrative Performed At [facility] [address] [place] [address]. [address] [place] [address] Bone Density Report Name: Asim Burnett Sex: Male Age: 62 Ethnicity: White Height: 64.0 in Referring Provider: KIMI JACK Date of : 1955 Weight: 249.8lb Indication: History of glucocorticoids Accession number: [id number] Bone Density: Exam date 03/20/2018 Region BMD [...] on 03/22/2018 7:20:00 AM. Performing Organization Address City/State/[facility] Phone Number [facility] [address] [place] [address] after 02/04/2018 Insurance Payer Benefit Plan / Group Subscriber ID Type Phone Address UHC MEDICARE AARP MEDICARE COMPLETE [facility] xxxxxxxxx O Advance Directives Patient has advance care planning documents on file. For more information, please contact:[facility] [place] [address]
--- OUTSIDE RECORDS SUMMARY | 2019-02-05 12:04 | XMS REPORT | Clinical Summary ---
:1955 Author Organization [facility] Address [address] [place] [address] Care Team Providers Name Role Phone Bebeto Jaffe Primary Care Provider Allergies Active Allergy Reactions Severity Noted Date Comments Ibuprofen Hives 08/30/2018 Medications Medication Sig Dispensed Refills Start End Date Status Date ARIPiprazole Take 5 mg by mouth 0 Active (ABILIFY) 5 MG daily. tablet lansoprazole Take 30 mg by 0 Active (PREVACID) 30 MG mouth daily. capsule budesonide-formote Inhale 2 puffs by 0 Active rol (SYMBICORT) mouth via inhaler 160-4.5 2 (two) times mcg/actuation daily. inhaler albuterol Take 1 ampule by 0 Active (ACCUNEB) 0.63 nebulization every mg/3 mL nebulizer 6 (six) hours as solution needed for Wheezing. aspirin 81 MG Take 1 tablet (81 0 09/11/20 Active chewable tablet mg total) by mouth 8 19 daily. atorvastatin Take 1 tablet (80 90 tablet 3 09/10/20 Active (LIPITOR) 80 MG mg total) by mouth 8 19 tablet nightly. clopidogrel Take 1 tablet (75 90 tablet 3 09/11/20 Active (PLAVIX) 75 mg mg total) by mouth 8 19 tablet daily. insulin glargine Inject 10 Units 10 mL 0 Active (LANTUS) 100 subcutaneously 8 unit/mL injection nightly Use as directed. insulin glulisine Inject 30 Units 0 Active (APIDRA SOLOSTAR subcutaneously 3 U-100 INSULIN (three) times SUBQ) daily as needed. metFORMIN Take 1,000 mg by 0 Active (GLUCOPHAGE) 1000 mouth 2 (two) MG tablet times daily with breakfast and dinner. clonazePAM Take 0.5 tablets 30 tablet 0 Active (KLONOPIN) 0.5 MG (0.25 mg total) by 8 tablet mouth 2 (two) times daily. Max Daily Amount: 0.5 mg metoprolol Take 1 tablet (25 60 tablet 0 10/06/20 Active (LOPRESSOR) 25 MG mg total) by mouth 8 19 tablet 2 (two) times daily. enalapril Take 1 tablet (5 30 tablet 0 10/06/20 Active (VASOTEC) 5 MG mg total) by mouth 8 19 tablet daily. amLODIPine Take 5 mg by mouth 0 09/10/20 Discontinued (NORVASC) 10 MG daily. 18 tablet clonazePAM Take 1 mg by mouth 0 09/10/20 Discontinued (KLONOPIN) 1 MG 4 (four) times 18 tablet daily as needed for Anxiety. enalapril Take 20 mg by 0 09/10/20 Discontinued (VASOTEC) 20 MG mouth daily. 18 tablet fenofibrate Take 160 mg by 0 09/10/20 Discontinued (TRIGLIDE,LOFIBRA) mouth daily. 18 160 MG tablet metFORMIN Take 1,000 mg by 0 09/10/20 Discontinued (FORTAMET) 1000 MG mouth 2 (two) 18 (OSM) 24 hr tablet times daily with breakfast and dinner. oxyCODONE-acetamin Take 1 tablet by 0 09/10/20 Discontinued ophen (PERCOCET) mouth 2 (two) 18 10-325 mg per times daily as tablet needed for Pain. spironolactone Take 25 mg by 0 09/10/20 Discontinued (ALDACTONE) 25 MG mouth daily. 18 tablet traZODone Take 50 mg by 0 09/10/20 Discontinued (DESYREL) 50 MG mouth nightly. 18 tablet insulin lispro Inject 24 Units 0 09/10/20 Discontinued (HUMALOG) 100 subcutaneously 3 18 unit/mL (three) times InPnIndications: daily with meals. type 2 diabetes mellitus budesonide-formote Inhale 2 puffs by 0 09/10/20 Discontinued rol (SYMBICORT) mouth via inhaler 18 80-4.5 2 (two) times mcg/actuation daily. inhaler clonazePAM Take 1 tablet (1 60 tablet 0 10/06/20 Discontinued (KLONOPIN) 1 MG mg total) by mouth 8 18 tablet 2 (two) times daily for 30 days. Max Daily Amount: [address] 1 patch onto 30 patch 0 10/04/20 Discontinued (LIDODERM) 5 % the skin daily for 8 18 patch 30 days Remove & Discard patch within 12 hours or as directed by MD. lisinopril Take 1 tablet (5 90 tablet 3 10/04/20 Discontinued (PRINIVIL,ZESTRIL) mg total) by mouth 8 18 5 MG tablet daily. metoprolol Take 1 tablet (50 180 tablet 3 10/06/20 Discontinued (LOPRESSOR) 50 MG mg total) by mouth 8 18 tablet 2 (two) times daily. insulin glargine Inject 15 Units 13.5 mL 3 10/04/20 Discontinued (LANTUS) 100 subcutaneously 8 18 unit/mL (3 mL) every morning. InPn enalapril Take 20 mg by 0 10/06/20 Discontinued (VASOTEC) 20 MG mouth daily. 18 tablet clindamycin Take 1 capsule 21 capsule 0 10/13/20 (CLEOCIN) 300 MG (300 mg total) by 8 18 capsule mouth 3 (three) times daily for 7 days. Lactobacillus Take 1 tablet by 14 tablet 0 10/13/20 acidoph-L.bulgar mouth 2 (two) 8 18 (FLORANEX) 1 times daily for 7 million cell Tab days While taking per tablet antibiotics. Active Problems Problem Noted Date SOB (shortness of breath) 10/04/2018 Hypotension 08/30/2018 Encounters Date Type Specialty Care Team Description 10/04/2018 - Hospital Cardiology Zachery Martin SOB (shortness of breath) ( Primary Dx); 10/06/2018 Encounter Placido Quijano MD Chronic obstructive pulmonary disease, unspecified COPD type ([facility]); Denice Rueda Diabetes mellitus of other type without complication, unspecified whether intermediate insulin use ([facility]); MD Galen Essential hypertension; Pneumonia due to methicillin resistant Staphylococcus aureus, unspecified laterality, unspecified part of lung (HCC); Acute on chronic respiratory failure with hypoxia ([facility]); Hypotension, unspecified hypotension type; PURA (obstructive sleep apnea); Morbid obesity ([facility]); NSTEMI (non-ST elevated myocardial infarction) ([facility]); Coronary artery disease involving [place] heart without angina pectoris , unspecified vessel or lesion type; Hyperlipidemia, unspecified hyperlipidemia type 10/04/2018 Orders Only General Internal Medicine 10/04/2018 Travel 09/01/2018 Surgery Renato Montano MD PCI & STENT 08/31/2018 Surgery Renato Montano MD L CATH & PCI 08/30/2018 Orders Only General Internal Medicine 08/29/2018 - Hospital Cardiology Siddhartha Dickerson, Shock circulatory ([facility]); 09/10/2018 Encounter JORGE (acute kidney injury) ([facility]); Denice Rueda Acute respiratory failure with hypoxia and hypercapnia ([facility]); MD Galen NSTEMI (non-ST elevated myocardial infarction) ([facility]); Shaquille Garber MD Essential hypertension; Hyperlipidemia, unspecified hyperlipidemia type; Respiratory failure requiring intubation ([facility]); Atelectasis; Morbid obesity ([facility]); PURA (obstructive sleep apnea); Epiploic appendagitis; Pneumonia of both lungs due to methicillin resistant Staphylococcus aureus (MRSA), unspecified part of lung ([facility]); Acute renal failure, unspecified acute renal failure type ([facility]); Diabetes mellitus type 2 in obese ([facility]); Septic shock ([facility]) after 02/04/2018 Social History Tobacco Use Types Packs/Day Years Used Date Never Smoker Smokeless Tobacco: Never Used Alcohol Use Drinks/Week oz/Week Comments Yes 1 Cans of beer 0.6 Alcohol Habits Answer Date Recorded How often do you have a drink containing alcohol? Monthly or less 08/30/2018 How many drinks containing alcohol do you have on a 1 or 2 08/30/2018 typical day when you are drinking? How often do you have six or more drinks on one Not asked occasion? Sex Assigned at Date Recorded Not on file Job Start Date Occupation Industry Not on file Not on file Not on file Travel History Travel Start Travel End No recent travel history available. Last Filed Vital Signs Vital Sign Reading Time Taken Blood Pressure 128/80 10/06/2018 10:59 AM [employer] Pulse 83 10/06/2018 10:59 AM [employer] Temperature 35.7 C (96.2 F) 10/06/2018 10:59 AM [employer] Respiratory Rate 19 10/06/2018 10:59 AM [employer] Oxygen Saturation 97% 10/06/2018 10:59 AM [employer] Inhaled Oxygen Concentration 40% 09/07/2018 3:26 AM [employer] Weight 108.1 kg (238 lb 4.8 oz) 10/06/2018 8:17 AM [employer] Height 167.6 cm (5' 6") 10/04/2018 6:50 PM [employer] Body Mass Index 38.46 10/06/2018 8:17 AM [employer] Plan of Treatment Not on file Implants Implanted Type Area Occupational Therapy Department Chair Device Identifier Shelf Model / Expiration Serial / Lot Date 4Less [id number] 05/01/2020 [id number] / Implanted: Qty: 1 on 09/01/2018 by Renato Montano MD / [id number] [id number] 03/06/2020 [id number] / Implanted: Qty: 1 on 09/01/2018 by Renato Montano MD / [id number] Procedures Procedure Name Priority Date/Time Associated Comments Diagnosis RHYTHM STRIP - SCAN 10/14/2018 7:50 AM [employer] POCT-GLUCOSE METER Routine 10/06/2018 12:35 Results for this PM [employer] procedure are in the results section. VANCOMYCIN LEVEL, Timed 10/06/2018 8:46 Results for this TROUGH AM [employer] procedure are in the results section. POCT-GLUCOSE METER Routine 10/06/2018 8:06 Results for this AM [employer] procedure are in the results section. POCT-GLUCOSE METER Routine 10/05/2018 9:40 Results for this PM [employer] procedure are in the results section. POCT-GLUCOSE METER Routine 10/05/2018 6:29 Results for this PM [employer] procedure are in the results section. ECHOCARDIOGRAM REPORT - 10/05/2018 5:18 SCAN PM [employer] URINE CULTURE Routine 10/05/2018 3:01 Results for this PM [employer] procedure are in the results section. POCT-GLUCOSE METER Routine 10/05/2018 2:01 Results for this PM [employer] procedure are in the results section. 2D ECHO W/ DOPPLER STAT 10/05/2018 11:56 Results for this (CW/PW/COLOR) AM [employer] procedure are in the results section. POCT-GLUCOSE METER Routine 10/05/2018 7:57 Results for this AM [employer] procedure are in the results section. XR CHEST 1 VIEW Routine 10/05/2018 6:37 Results for this PORTABLE/BEDSIDE AM [employer] procedure are in the results section. CBC W/PLT COUNT & AUTO Routine 10/05/2018 6:01 Results for this DIFFERENTIAL AM [employer] procedure are in the results section. BASIC METABOLIC PANEL Routine 10/05/2018 6:01 Results for this (7) AM [employer] procedure are in the results section. CBC W/PLT COUNT & AUTO Routine 10/05/2018 6:01 Results for this DIFFERENTIAL AM [employer] procedure are in the results section. TROPONIN I Routine 10/05/2018 6:01 Results for this AM [employer] procedure are in the results section. POCT-GLUCOSE METER Routine 10/04/2018 11:00 Results for this PM [employer] procedure are in the results section. BLOOD CULTURE Routine 10/04/2018 10:15 Results for this PM [employer] procedure are in the results section. VENOUS DOPPLER LEGS GIOVANNI 10/04/2018 9:55 Results for this BILATERAL PM [employer] procedure are in the results section. TROPONIN I Routine 10/04/2018 9:37 Results for this PM [employer] procedure are in the results section. BLOOD CULTURE Routine 10/04/2018 9:37 Results for this PM [employer] procedure are in the results section. POCT-GLUCOSE METER Routine 10/04/2018 5:13 Results for this PM [employer] procedure are in the results section. VITAMIN B12 Routine 10/04/2018 5:12 Results for this PM [employer] procedure are in the results section. FOLATE, RBC Routine 10/04/2018 5:12 Results for this PM [employer] procedure are in the results section. TSH/FREE T4 IF Routine 10/04/2018 5:12 Results for this INDICATED PM [employer] procedure are in the results section. CT BRAIN WITHOUT IV STAT 10/04/2018 4:53 Results for this CONTRAST PM [employer] procedure are in the results section. BLOOD GAS, ARTERIAL GIOVANNI 10/04/2018 3:50 Results for this PM [employer] procedure are in the results section. RESPIRATORY PANEL SLHS Routine 10/04/2018 3:25 Results for this PM [employer] procedure are in the results section. RAPID INFLUENZA A&B Routine 10/04/2018 3:25 Results for this SCREEN PM [employer] procedure are in the results section. XR CHEST 1 VIEW STAT 10/04/2018 12:27 Results for this PORTABLE/BEDSIDE PM [employer] procedure are in the results section. CBC W/PLT COUNT & AUTO STAT 10/04/2018 12:25 Results for this DIFFERENTIAL PM [employer] procedure are in the results section. CBC W/PLT COUNT & AUTO STAT 10/04/2018 12:25 Results for this DIFFERENTIAL PM [employer] procedure are in the results section. TROPONIN I STAT 10/04/2018 12:25 Results for this PM [employer] procedure are in the results section. B-TYPE NATRIURETIC STAT 10/04/2018 12:25 Results for this FACTOR (BNP) PM [employer] procedure are in the results section. MAGNESIUM STAT 10/04/2018 12:25 Results for this PM [employer] procedure are in the results section. BASIC METABOLIC PANEL STAT 10/04/2018 12:25 Results for this (7) PM [employer] procedure are in the results section. ECG 12-LEAD Routine 10/04/2018 11:59 AM [employer] Procedure Note - Interface, External Ris In - 10/04/2018 11:32 PM [employer] Ventricular Rate 89 BPM Atrial Rate 89 BPM P-R Interval 160 ms QRS Duration 90 ms Q-T Interval 366 ms QTC Calculation(Bazett) 445 ms P [place] 20 degrees R [place] -42 degrees T [place] -34 degrees Sinus rhythm with Premature atrial complexes with Aberrant conduction Left axis deviation T wave abnormality, consider inferior ischemia Abnormal ECG When compared with ECG of 05-SEP-2018 06:50, Aberrant conduction is now Present Vent. rate has increased BY 29 BPM ECG 12-LEAD STAT 10/04/2018 11:59 AM [employer] CARDIAC CATH REPORT - SCAN 09/12/2018 11:21 AM [employer] CARDIAC CATH REPORT - SCAN 09/12/2018 11:21 AM [employer] CARDIAC CATH REPORT - SCAN 09/12/2018 11:21 AM [employer] RHYTHM STRIP - SCAN 09/12/2018 11:21 AM [employer] RHYTHM STRIP - SCAN 09/12/2018 11:21 AM [employer] POCT-GLUCOSE METER Routine 09/10/2018 11:30 AM [employer] POCT-GLUCOSE METER Routine 09/10/2018 7:11 AM [employer] POCT-GLUCOSE METER Routine 09/09/2018 8:57 PM [employer] POCT-GLUCOSE METER Routine 09/09/2018 5:09 PM [employer] POCT-GLUCOSE METER Routine 09/09/2018 11:34 AM [employer] POCT-GLUCOSE METER Routine 09/09/2018 6:53 AM [employer] POCT-GLUCOSE METER Routine 09/08/2018 9:11 PM [employer] POCT-GLUCOSE METER Routine 09/08/2018 4:13 PM [employer] POCT-GLUCOSE METER Routine 09/08/2018 11:22 AM [employer] POCT-GLUCOSE METER Routine 09/08/2018 6:48 AM [employer] POCT-GLUCOSE METER Routine 09/07/2018 9:07 PM [employer] POCT-GLUCOSE METER Routine 09/07/2018 5:02 PM [employer] POCT-GLUCOSE METER Routine 09/07/2018 11:42 AM [employer] POCT-GLUCOSE METER Routine 09/07/2018 7:17 AM [employer] XR CHEST 1 VIEW Routine 09/07/2018 5:00 AM [employer] Results for this PORTABLE/BEDSIDE procedure are in the results section. CBC W/PLT COUNT & AUTO Routine 09/07/2018 4:13 AM [employer] Results for this DIFFERENTIAL procedure are in the results section. PHOSPHORUS Routine 09/07/2018 4:13 AM [employer] MAGNESIUM Routine 09/07/2018 4:13 AM [employer] COMPREHENSIVE METABOLIC Routine 09/07/2018 4:13 AM [employer] Results for this PANEL procedure are in the results section. CBC W/PLT COUNT & AUTO Routine 09/07/2018 4:13 AM [employer] Results for this DIFFERENTIAL procedure are in the results section. POCT-GLUCOSE METER Routine 09/06/2018 9:08 PM [employer] POCT-GLUCOSE METER Routine 09/06/2018 5:21 PM [employer] POCT-GLUCOSE METER Routine 09/06/2018 12:43 PM [employer] POCT-GLUCOSE METER Routine 09/06/2018 7:31 AM [employer] CBC W/PLT COUNT & AUTO Routine 09/06/2018 5:14 AM [employer] Results for this DIFFERENTIAL procedure are in the results section. PHOSPHORUS Routine 09/06/2018 5:14 AM [employer] MAGNESIUM Routine 09/06/2018 5:14 AM [employer] COMPREHENSIVE METABOLIC Routine 09/06/2018 5:14 AM [employer] Results for this PANEL procedure are in the results section. CBC W/PLT COUNT & AUTO Routine 09/06/2018 5:14 AM [employer] Results for this DIFFERENTIAL procedure are in the results section. XR CHEST 1 VIEW Routine 09/06/2018 4:42 AM [employer] Results for this PORTABLE/BEDSIDE procedure are in the results section. POCT-GLUCOSE METER Routine 09/05/2018 10:30 PM [employer] POCT-GLUCOSE METER Routine 09/05/2018 6:05 PM [employer] MR LUMBAR SPINE W & WO Routine 09/05/2018 5:00 PM [employer] Results for this CONTRAST procedure are in the results section. POCT-GLUCOSE METER Routine 09/05/2018 11:38 AM [employer] LIPASE STAT 09/05/2018 10:10 AM [employer] POCT-GLUCOSE METER Routine 09/05/2018 7:40 AM [employer] ECG 12-LEAD Routine 09/05/2018 6:50 AM [employer] Procedure Note - Interface, External Ris In - 09/05/2018 8:21 AM [employer] Ventricular Rate 60 BPM Atrial Rate 60 BPM P-R Interval 144 ms QRS Duration 84 ms Q-T Interval 440 ms QTC Calculation(Bazett) 440 ms P [place] 16 degrees R [place] -22 degrees T [place] -17 degrees Normal sinus rhythm Nonspecific T wave abnormality Abnormal ECG ECG 12-LEAD Routine 09/05/2018 6:50 AM [employer] XR CHEST 1 VIEW Routine 09/05/2018 5:03 AM [employer] Results for this PORTABLE/BEDSIDE procedure are in the results section. CBC W/PLT COUNT & AUTO Routine 09/05/2018 3:50 AM [employer] Results for this DIFFERENTIAL procedure are in the results section. PHOSPHORUS Routine 09/05/2018 3:50 AM [employer] MAGNESIUM Routine 09/05/2018 3:50 AM [employer] COMPREHENSIVE METABOLIC Routine 09/05/2018 3:50 AM [employer] Results for this PANEL procedure are in the results section. CBC W/PLT COUNT & AUTO Routine 09/05/2018 3:50 AM [employer] Results for this DIFFERENTIAL procedure are in the results section. US ABDOMEN COMPLETE STAT 09/05/2018 1:32 AM [employer] POCT-GLUCOSE METER Routine 09/04/2018 9:26 PM [employer] VANCOMYCIN LEVEL, TROUGH Timed 09/04/2018 8:[address] [facility] [address] ABDOMEN/PELVIS WITH IV STAT 09/04/2018 8:18 PM [employer] Results for this CONTRAST procedure are in the results section. POCT-GLUCOSE METER Routine 09/04/2018 6:10 PM [employer] NEEDLE EMG, 4 EXTREMITY GIOVANNI 09/04/2018 3:25 PM [employer] ECG 12-LEAD Routine 09/04/2018 1:56 PM [employer] Procedure Note - Interface, External Ris In - 09/04/2018 2:09 PM [employer] Ventricular Rate 78 BPM Atrial Rate 78 BPM P-R Interval 144 ms QRS Duration 84 ms Q-T Interval 396 ms QTC Calculation(Bazett) 451 ms P [place] 23 degrees R [place] -65 degrees T [place] -2 degrees Normal sinus rhythm Left axis deviation Inferior-posterior infarct , age undetermined Abnormal ECG When compared with ECG of 30-AUG-2018 01:40, Nonspecific T wave abnormality now evident in Inferior leads ECG 12-LEAD Routine 09/04/2018 1:56 Results for this PM [employer] procedure are in the results section. XR ABDOMEN 1 VIEW STAT 09/04/2018 10:20 Results for this AM [employer] procedure are in the results section. XR CHEST 1 VIEW STAT 09/04/2018 10:07 Results for this PORTABLE/BEDSIDE AM [employer] procedure are in the results section. LIPASE STAT 09/04/2018 9:38 Results for this AM [employer] procedure are in the results section. AMYLASE STAT 09/04/2018 9:38 Results for this AM [employer] procedure are in the results section. POCT-GLUCOSE METER Routine 09/04/2018 8:01 Results for this AM [employer] procedure are in the results section. CBC W/PLT COUNT & AUTO Routine 09/04/2018 3:23 Results for this DIFFERENTIAL AM [employer] procedure are in the results section. PHOSPHORUS Routine 09/04/2018 3:23 Results for this AM [employer] procedure are in the results section. MAGNESIUM Routine 09/04/2018 3:23 Results for this AM [employer] procedure are in the results section. COMPREHENSIVE Routine 09/04/2018 3:23 Results for this METABOLIC PANEL AM [employer] procedure are in the results section. CBC W/PLT COUNT & AUTO Routine 09/04/2018 3:23 Results for this DIFFERENTIAL AM [employer] procedure are in the results section. POCT-GLUCOSE METER Routine 09/03/2018 10:13 Results for this PM [employer] procedure are in the results section. C. DIFFICILE GDH TOXIN STAT 09/03/2018 7:02 Results for this PM [employer] procedure are in the results section. XR ABDOMEN 1 VIEW STAT 09/03/2018 6:08 Results for this PM [employer] procedure are in the results section. POCT-GLUCOSE METER Routine 09/03/2018 5:12 Results for this PM [employer] procedure are in the results section. BLOOD GAS, ARTERIAL STAT 09/03/2018 4:55 Results for this PM [employer] procedure are in the results section. BLOOD GAS, ARTERIAL STAT 09/03/2018 4:34 Results for this PM [employer] procedure are in the results section. POCT-GLUCOSE METER Routine 09/03/2018 11:19 Results for this AM [employer] procedure are in the results section. XR CHEST 1 VIEW Routine 09/03/2018 4:53 Results for this PORTABLE/BEDSIDE AM [employer] procedure are in the results section. CBC W/PLT COUNT & AUTO Routine 09/03/2018 4:36 Results for this DIFFERENTIAL AM [employer] procedure are in the results section. MAGNESIUM Routine 09/03/2018 4:36 Results for this AM [employer] procedure are in the results section. CBC W/PLT COUNT & AUTO Routine 09/03/2018 4:36 Results for this DIFFERENTIAL AM [employer] procedure are in the results section. BASIC METABOLIC PANEL Routine 09/03/2018 4:36 Results for this (7) AM [employer] procedure are in the results section. POCT-GLUCOSE METER Routine 09/03/2018 12:31 Results for this AM [employer] procedure are in the results section. VANCOMYCIN LEVEL, Timed 09/03/2018 12:24 Results for this TROUGH AM [employer] procedure are in the results section. MR MRA HEAD WITHOUT STAT 09/02/2018 11:13 Results for this CONTRAST PM [employer] procedure are in the results section. MR CERVICAL SPINE W/WO STAT 09/02/2018 11:13 Results for this CONTRAST PM [employer] procedure are in the results section. MR BRAIN WITHOUT & STAT 09/02/2018 11:13 Results for this WITH IV CONTRAST PM [employer] procedure are in the results section. MR MRA NECK WITHOUT IV STAT 09/02/2018 11:13 Results for this CONTRAST PM [employer] procedure are in the results section. POCT-GLUCOSE METER Routine 09/02/2018 4:15 Results for this PM [employer] procedure are in the results section. BASIC METABOLIC PANEL STAT 09/02/2018 1:40 Results for this (7) PM [employer] procedure are in the results section. POCT-GLUCOSE METER Routine 09/02/2018 10:03 Results for this AM [employer] procedure are in the results section. XR CHEST 1 VIEW Routine 09/02/2018 3:36 Results for this PORTABLE/BEDSIDE AM [employer] procedure are in the results section. BLOOD GAS, ARTERIAL Routine 09/02/2018 3:19 Results for this AM [employer] procedure are in the results section. CBC W/PLT COUNT & AUTO Routine 09/02/2018 3:18 Results for this DIFFERENTIAL AM [employer] procedure are in the results section. CBC W/PLT COUNT & AUTO Routine 09/02/2018 3:18 Results for this DIFFERENTIAL AM [employer] procedure are in the results section. MAGNESIUM Routine 09/02/2018 3:18 Results for this AM [employer] procedure are in the results section. BASIC METABOLIC PANEL Routine 09/02/2018 3:18 Results for this (7) AM [employer] procedure are in the results section. POCT-GLUCOSE METER Routine 09/01/2018 10:01 Results for this PM CDT procedure are in the results section. VANCOMYCIN LEVEL, Timed 09/01/2018 8:17 Results for this TROUGH PM CDT procedure are in the results section. POCT-ACT Routine 09/01/2018 3:07 Results for this PM CDT procedure are in the results section. POCT-ACT Routine 09/01/2018 1:45 Results for this PM CDT procedure are in the results section. POCT-GLUCOSE METER Routine 09/01/2018 12:25 Results for this PM CDT procedure are in the results section. POCT-ACT Routine 09/01/2018 11:21 Results for this AM CDT procedure are in the results section. PCI & STENT 09/01/2018 10:15 Coronary artery AM CDT disease involving [place] coronary artery of [place] heart without angina pectoris TROPONIN I Routine 09/01/2018 8:36 Results for this AM CDT procedure are in the results section. XR CHEST 1 VIEW Routine 09/01/2018 4:45 Results for this PORTABLE/BEDSIDE AM CDT procedure are in the results section. APTT Routine 09/01/2018 4:13 Results for this AM CDT procedure are in the results section. CBC (HEMOGRAM ONLY) Routine 09/01/2018 4:13 Results for this AM CDT procedure are in the results section. MAGNESIUM Routine 09/01/2018 4:13 Results for this AM CDT procedure are in the results section. BASIC METABOLIC PANEL Routine 09/01/2018 4:13 Results for this (7) AM CDT procedure are in the results section. TROPONIN I Routine 09/01/2018 12:15 Results for this AM CDT procedure are in the results section. POCT-GLUCOSE METER Routine 08/31/2018 10:20 Results for this PM CDT procedure are in the results section. L CATH & PCI 08/31/2018 9:18 NSTEMI (non-ST PM CDT elevated myocardial infarction) (HCC) APTT Routine 08/31/2018 6:08 Results for this PM CDT procedure are in the results section. TROPONIN I Routine 08/31/2018 4:56 Results for this PM CDT procedure are in the results section. POCT-GLUCOSE METER Routine 08/31/2018 4:34 Results for this PM CDT procedure are in the results section. POCT-GLUCOSE METER Routine 08/31/2018 3:12 Results for this PM CDT procedure are in the results section. POCT-GLUCOSE METER Routine 08/31/2018 2:15 Results for this PM CDT procedure are in the results section. POCT-GLUCOSE METER Routine 08/31/2018 1:03 Results for this PM CDT procedure are in the results section. VANCOMYCIN LEVEL, Routine 08/31/2018 12:15 Results for this RANDOM PM CDT procedure are in the results section. POCT-GLUCOSE METER Routine 08/31/2018 12:07 Results for this PM CDT procedure are in the results section. BODY FLUID CELL COUNT Routine 08/31/2018 11:55 Results for this WITH DIFFERENTIAL AM CDT procedure are in the results section. CYTOLOGY AP Routine 08/31/2018 11:46 Results for this AM CDT procedure are in the results section. FUNGUS CULTURE + Routine 08/31/2018 11:30 Results for this SMEAR AM CDT procedure are in the results section. BRONCHIAL CULTURE + Routine 08/31/2018 11:30 Results for this GRAM STAIN AM CDT procedure are in the results section. POCT-GLUCOSE METER Routine 08/31/2018 10:53 Results for this AM CDT procedure are in the results section. MISCELLANEOUS LAB Routine 08/31/2018 10:10 ORDER AM CDT APTT Routine 08/31/2018 9:36 Results for this AM CDT procedure are in the results section. POCT-GLUCOSE METER Routine 08/31/2018 9:25 Results for this AM CDT procedure are in the results section. ECHOCARDIOGRAM REPORT 08/31/2018 8:50 - SCAN AM CDT POCT-GLUCOSE METER Routine 08/31/2018 8:29 Results for this AM CDT procedure are in the results section. TROPONIN I Routine 08/31/2018 7:41 Results for this AM CDT procedure are in the results section. POCT-GLUCOSE METER Routine 08/31/2018 7:11 Results for this AM CDT procedure are in the results section. POCT-GLUCOSE METER Routine 08/31/2018 6:08 Results for this AM CDT procedure are in the results section. POCT-GLUCOSE METER Routine 08/31/2018 5:01 Results for this AM CDT procedure are in the results section. BLOOD GAS, ARTERIAL STAT 08/31/2018 4:06 Results for this AM CDT procedure are in the results section. MAGNESIUM Routine 08/31/2018 4:05 Results for this AM CDT procedure are in the results section. BASIC METABOLIC PANEL Routine 08/31/2018 4:05 Results for this (7) AM CDT procedure are in the results section. CBC (HEMOGRAM ONLY) Routine 08/31/2018 4:05 Results for this AM CDT procedure are in the results section. POCT-GLUCOSE METER Routine 08/31/2018 4:03 Results for this AM CDT procedure are in the results section. POCT-GLUCOSE METER Routine 08/31/2018 3:01 Results for this AM CDT procedure are in the results section. POCT-GLUCOSE METER Routine 08/31/2018 2:02 Results for this AM CDT procedure are in the results section. APTT Routine 08/31/2018 2:00 Results for this AM CDT procedure are in the results section. POCT-GLUCOSE METER Routine 08/31/2018 1:24 Results for this AM CDT procedure are in the results section. POCT-GLUCOSE METER Routine 08/31/2018 12:06 Results for this AM CDT procedure are in the results section. BLOOD GAS, ARTERIAL STAT 08/31/2018 12:06 Results for this AM CDT procedure are in the results section. TROPONIN I Routine 08/31/2018 12:06 Results for this AM CDT procedure are in the results section. POCT-GLUCOSE METER Routine 08/30/2018 11:23 Results for this PM CDT procedure are in the results section. POCT-GLUCOSE METER Routine 08/30/2018 10:05 Results for this PM CDT procedure are in the results section. POCT-GLUCOSE METER Routine 08/30/2018 9:03 Results for this PM CDT procedure are in the results section. POCT-GLUCOSE METER Routine 08/30/2018 8:06 Results for this PM CDT procedure are in the results section. APTT Routine 08/30/2018 7:39 Results for this PM CDT procedure are in the results section. POCT-GLUCOSE METER Routine 08/30/2018 7:06 Results for this PM CDT procedure are in the results section. 2D ECHO W/ DOPPLER STAT 08/30/2018 6:20 Results for this (CW/PW/COLOR) PM CDT procedure are in the results section. POCT-GLUCOSE METER Routine 08/30/2018 6:01 Results for this PM CDT procedure are in the results section. POCT-GLUCOSE METER Routine 08/30/2018 5:02 Results for this PM CDT procedure are in the results section. POCT-GLUCOSE METER Routine 08/30/2018 4:12 Results for this PM CDT procedure are in the results section. TROPONIN I Routine 08/30/2018 3:08 Results for this PM CDT procedure are in the results section. POCT-GLUCOSE METER Routine 08/30/2018 2:55 Results for this PM CDT procedure are in the results section. NM LUNG SCAN PERFUSION Routine 08/30/2018 2:45 Results for this PARTICULATE VENT PM CDT procedure are in the results section. CT CHEST WITHOUT IV GIOVANNI 08/30/2018 2:44 Results for this CONTRAST PM CDT procedure are in the results section. POCT-GLUCOSE METER Routine 08/30/2018 1:09 Results for this PM CDT procedure are in the results section. POCT-GLUCOSE METER Routine 08/30/2018 12:04 Results for this PM CDT procedure are in the results section. APTT Routine 08/30/2018 11:38 Results for this AM CDT procedure are in the results section. XR ABDOMEN 1 VIEW Routine 08/30/2018 11:19 Results for this AM CDT procedure are in the results section. XR CHEST 1 VIEW STAT 08/30/2018 11:19 Results for this PORTABLE/BEDSIDE AM CDT procedure are in the results section. POCT-GLUCOSE METER Routine 08/30/2018 11:03 Results for this AM CDT procedure are in the results section. SPUTUM CULTURE + GRAM Routine 08/30/2018 10:17 Results for this STAIN AM CDT procedure are in the results section. MRSA SCREEN STAT 08/30/2018 10:17 Results for this AM CDT procedure are in the results section. POCT-GLUCOSE METER Routine 08/30/2018 9:43 Results for this AM CDT procedure are in the results section. OXYGEN SATURATION, Routine 08/30/2018 8:33 Results for this MEASURED AM CDT procedure are in the results section. LACTIC ACID, ARTERIAL Routine 08/30/2018 8:33 Results for this AM CDT procedure are in the results section. TROPONIN I Routine 08/30/2018 8:33 Results for this AM CDT procedure are in the results section. POCT-GLUCOSE METER Routine 08/30/2018 8:29 Results for this AM CDT procedure are in the results section. POCT-GLUCOSE METER Routine 08/30/2018 7:40 Results for this AM CDT procedure are in the results section. POCT-GLUCOSE METER Routine 08/30/2018 6:22 Results for this AM CDT procedure are in the results section. VENOUS DOPPLER LEGS Routine 08/30/2018 6:01 Results for this BILATERAL AM CDT procedure are in the results section. POCT-GLUCOSE METER Routine 08/30/2018 4:08 Results for this AM CDT procedure are in the results section. URINALYSIS W/ REFLEX Routine 08/30/2018 4:07 Results for this URINE CULTURE AM CDT procedure are in the results section. APTT Routine 08/30/2018 3:32 Results for this AM CDT procedure are in the results section. PLATELET COUNT Routine 08/30/2018 3:32 Results for this AM CDT procedure are in the results section. POTASSIUM STAT 08/30/2018 3:32 Results for this AM CDT procedure are in the results section. GLUCOSE STAT 08/30/2018 3:32 Results for this AM CDT procedure are in the results section. LACTIC ACID, ARTERIAL Routine 08/30/2018 3:32 Results for this AM CDT procedure are in the results section. CBC (HEMOGRAM ONLY) Routine 08/30/2018 3:32 Results for this AM CDT procedure are in the results section. BLOOD GAS, ARTERIAL Routine 08/30/2018 3:31 Results for this AM CDT procedure are in the results section. BLOOD CULTURE STAT 08/30/2018 3:31 Results for this AM CDT procedure are in the results section. BLOOD CULTURE STAT 08/30/2018 1:48 Results for this AM CDT procedure are in the results section. CBC W/PLT COUNT & AUTO STAT 08/30/2018 1:46 Results for this DIFFERENTIAL AM CDT procedure are in the results section. LIPASE STAT 08/30/2018 1:46 Results for this AM CDT procedure are in the results section. APTT Routine 08/30/2018 1:46 Results for this AM CDT procedure are in the results section. PLATELET COUNT Routine 08/30/2018 1:46 Results for this AM CDT procedure are in the results section. TOXICOLOGY SCREEN, Routine 08/30/2018 1:46 Results for this SERUM AM CDT procedure are in the results section. TSH/FREE T4 IF STAT 08/30/2018 1:46 Results for this INDICATED AM CDT procedure are in the results section. B-TYPE NATRIURETIC STAT 08/30/2018 1:46 Results for this FACTOR (BNP) AM CDT procedure are in the results section. TROPONIN I STAT 08/30/2018 1:46 Results for this AM CDT procedure are in the results section. PROCALCITONIN STAT 08/30/2018 1:46 Results for this AM CDT procedure are in the results section. LACTIC ACID, VENOUS STAT 08/30/2018 1:46 Results for this AM CDT procedure are in the results section. MAGNESIUM STAT 08/30/2018 1:46 Results for this AM CDT procedure are in the results section. COMPREHENSIVE STAT 08/30/2018 1:46 Results for this METABOLIC PANEL AM CDT procedure are in the results section. CBC W/PLT COUNT & AUTO STAT 08/30/2018 1:46 Results for this DIFFERENTIAL AM CDT procedure are in the results section. ECG 12-LEAD Routine 08/30/2018 1:40 AM CDT Procedure Note - Interface, External Ris In - 08/30/2018 8:18 AM CDT Ventricular Rate 76 BPM Atrial Rate 76 BPM P-R Interval 158 ms QRS Duration 84 ms Q-T Interval 380 ms QTC Calculation(Bazett) 427 ms P [place] 27 degrees R [place] -46 degrees T [place] 64 degrees Normal sinus rhythm Left anterior fascicular block Abnormal ECG ECG 12-LEAD STAT 08/30/2018 1:40 AM CDT XR CHEST 1 VIEW STAT 08/30/2018 1:26 AM CDT Results for this procedure PORTABLE/BEDSIDE are in the results section. after 02/04/2018 Results RHYTHM STRIP - SCAN (10/14/2018 7:50 AM [employer])Only the most recent of3 resultswithin the time period is included. Narrative Performed At POC-Glucose meter (10/06/2018 12:35 PM [employer])Only the most recent of75 resultswithin the time period is included. POC-Glucose Meter 243 (H)Comment: TESTED AT 70 - 110 mg/dL [facility] [address] [place] [id number] Specimen Blood Performing Organization Address City/[facility]/Zipcode Phone Number [address] [address] [phone] CENTER Vancomycin level, trough (10/06/2018 8:46 AM [employer])Only the most recent of4 resultswithin the time period is included. Vancomycin Tr 12.8 10.0 - 20.0 ug/mL [facility] Specimen Blood - Arm, Left Narrative Performed At Please draw vancomycin trough level. If level [facility] greater than 20 mcg/mL, please hold 900 dose. Performing Organization Address City/[facility]/[place] Phone Number [address] [place] [address] [facility] ECHOCARDIOGRAM REPORT - SCAN (10/05/2018 5:18 PM [employer]) Narrative Performed At Urine culture (10/05/2018 3:01 PM [employer]) Result No growth [facility] Specimen Urine - Urine, Voided Performing Organization Address City/State/Zipcode Phone Number [address] [address] [facility] 2D Echo W/Doppler(CW/PW/Color) (10/05/2018 11:56 AM [employer]) Ejection Fraction [facility] Narrative Performed At Transthoracic Echocardiography Report (TTE) [facility] Demographics Patient Name Ian BURNETT of Study 10/05/2018 [id number] GenderMale Visit Number [id number] Unknown [id number] Room Number 1455 Number Date of Birth1955Referring Physician Denice Rueda Age63 year(s)Pc Support Specialist Jesus Casanova [facility] AnalystIzolda N. InterpretingBSNORMAN REGION[facility] [place] [facility] Phys[facility] Read Thang Saldaña MD Procedure Type of Study TTE procedure:DEFINITY CONTRAST , 2DECHO W DOPPLER(CW/PW/COLOR) (STAT) Indications:Unexplained Dyspnea. Clinical History HGB 13.6 HCT 39.8 % Anxiety COPD Diabetes Hypertension Shortness of Breath Contrast Medium: Definity. Height: 66 inches Weight: 107.95 kg (238 lbs) BSA: 2.15 m^2 BMI: 38.41 kg/m^2 HR: 86 bpm BP: 133/83 mmHg Summary The left ventricle is chamber size (by PSLAX dimension) is normal (male - LVIDd 4.2-5.8cm) . Mild concentric LV hypertrophy. All of the LV segments contract normally . Global LV systolic function normal . Estimated LVEF by qualitative assessment is normal (>60%) . Normal (cardiac index 2-3 L/min/m2) cardiac output state at rest is noted. Grade 1 diastolic dysfunction (impaired relaxation and low-normal LA pressure). No significant pericardial effusion is visualized. Unable to estimate peak systolic PA pressure; inadequate TR velocity signal. Previous Study Prior exam LV was incompletely visualized, cannot compare. Signature Findings Rhythm/BPSinus tachycardia during the exam. Left Ventricle The left ventricle is chamber size (by PSLAX di mension) is normal (male - LVIDd 4.2-5.8cm) . Mi ld concentric LV hypertrophy. All of the LV se gments contract normally . Global LV systolic fu nction normal . Estimated LVEF by qualitative as sessment is normal (>60%) . Normal (cardiac index 2- 3 L/min/m2) cardiac output state at rest is no zakia. Grade 1 diastolic dysfunction (impaired re laxation and low-normal LA pressure). LV endocardium is adequately visualized with IV ul trasound enhancing agent. Left AtriumLA size is mildly enlarged (35-41 ml/m2) . Right VentricleThe right ventricular chamber size and systolic fu nction are within normal limits. Right Atrium RA cavity size is normal . Aortic Valve Mild AoV cusp thickening. Ao V cusp mobility is normal . Mitral Valve Mild MV leaflet thickening. Mi ld mitral annular calcification. Tricuspid ValveUnable to estimate peak systolic PA pressure; in adequate TR velocity signal. Pulmonic Valve PV is not well visualized; function appears normal by Doppler visualized. AortaAortic root size (SInus of Valsalva diameter) is no rmal . PericardiumNo significant pericardial effusion is visualized. IVC/SVC/PA/PV/PleuralThe estimated RA pressure by IVC dynamics in determinate . Th e inferior vena cava is not visualized. Chambers/Structures Left Atrium LA Volume: 78.65 ml LA Area: 24.04 cm^2 LA Vol. Index: 37 ml/m^2 Left Ventricle LVIDd: 5.49 cm LVEDV:117.32 ml LV Septum Diastolic: 1.24 cm LV PW Diastolic: 1.2 cm LVOT Diameter: 2.26 cm Right Ventricle TAPSE: 1.55 cm Aorta Ao Root S of Carrie.: 3.52 cm Doppler/Quantitative Measurements Mitral Valve MV Peak E-Wave: 0.43 m/sMV Peak A-Wave: 0.63 m/s E/A Ratio: 0.69 Peak Gradient: 0.74 mmHg Deceleration Time: 278.7 msec MV Mikey. Peak: Tissue Doppler E' Lateral Velocity: 0.09 m/s E/E': 4.78 Aortic Valve Peak Velocity: 1.47 m/sMean Velocity: 0.99 m/s Peak Gradient: 8.64 mmHg Mean Gradient: 4.46 mmHg AV Area (continuity): 2.84 cm^2 AV VTI: 27.33 cm AV DVI: 0.71 LVOT Peak Velocity: 1.06 m/s Peak Gradient: 4.51 mmHg Mean Velocity: 0.69 m/s Mean Gradient: 2.25 mmHg LVOT Diameter: 2.26 cmLVOT VTI: 19.33 cm LVOT Area: 4.01 cm^2LVOT SV:77.5 ml LVOT CO: 6.67 l/min LVOT CI: 3.1 l/min/m^2 Procedure Note Interface, External Ris In - 10/05/2018 4:13 PM [employer]Y Transthoracic Echocardiography Report (TTE) Demographics Patient Name GARRISON BURNETT Date of Study 10/05/2018 Gender Male Visit Number [id number] Race Unknown Room Number 1455 Number Date of 1955 Referring Physician Denice Rueda Age 63 year(s) Pc Support Specialist Jesus Casanova [facility] Automotive Service Professional iBlly Garcia Interpreting [facility] Needs to be Pre [facility] Physician Read Thang Saldaña MD Procedure Type of Study TTE procedure:DEFINITY CONTRAST , 2DECHO W DOPPLER(CW/PW/COLOR) (STAT) Indications:Unexplained Dyspnea. Clinical History HGB 13.6 HCT 39.8 % Anxiety COPD Diabetes Hypertension Shortness of Breath Contrast Medium: Definity. Height: 66 inches Weight: 107.95 kg (238 lbs) BSA: 2.15 m^2 BMI: 38.41 kg/m^2 HR: 86 bpm BP: 133/83 mmHg Summary The left ventricle is chamber size (by PSLAX dimension) is normal (male - LVIDd 4.2-5.8cm) . Mild concentric LV hypertrophy. All of the LV segments contract normally . Global LV systolic function normal . Estimated LVEF by qualitative assessment is normal (>60%) . Normal (cardiac index 2-3 L/min/m2) cardiac output state at rest is noted. Grade 1 diastolic dysfunction (impaired relaxation and low-normal LA pressure). No significant pericardial effusion is visualized. Unable to estimate peak systolic PA pressure; inadequate TR velocity signal. Previous Study Prior exam LV was incompletely visualized, cannot compare. Signature Findings Rhythm/BP Sinus tachycardia during the exam. Left Ventricle The left ventricle is chamber size (by PSLAX dimension) is normal (male - LVIDd 4.2-5.8cm) . Mild concentric LV hypertrophy. All of the LV segments contract normally . Global LV systolic function normal . Estimated LVEF by qualitative assessment is normal (>60%) . Normal (cardiac index 2-3 L/min/m2) cardiac output state at rest is noted. Grade 1 diastolic dysfunction (impaired relaxation and low-normal LA pressure). LV endocardium is adequately visualized with IV ultrasound enhancing agent. Left Atrium LA size is mildly enlarged (35-41 ml/m2) . Right Ventricle The right ventricular chamber size and systolic function are within normal limits. Right Atrium RA cavity size is normal . Aortic Valve Mild AoV cusp thickening. AoV cusp mobility is normal . Mitral Valve Mild MV leaflet thickening. Mild mitral annular calcification. Tricuspid Valve Unable to estimate peak systolic PA pressure; inadequate TR velocity signal. Pulmonic Valve PV is not well visualized; function appears normal by Doppler visualized. Aorta Aortic root size (SInus of Valsalva diameter) is normal . Pericardium No significant pericardial effusion is visualized. IVC/SVC/PA/PV/Pleural The estimated RA pressure by IVC dynamics indeterminate . The inferior vena cava is not visualized. Chambers/Structures Left Atrium LA Volume: 78.65 ml LA Area: 24.04 cm^2 LA Vol. Index: 37 ml/m^2 Left Ventricle LVIDd: 5.49 cm LVEDV:117.32 ml LV Septum Diastolic: 1.24 cm LV PW Diastolic: 1.2 cm LVOT Diameter: 2.26 cm Right Ventricle TAPSE: 1.55 cm Aorta Ao Root S of Carrie.: 3.52 cm Doppler/Quantitative Measurements Mitral Valve MV Peak E-Wave: 0.43 m/s MV Peak A-Wave: 0.63 m/s E/A Ratio: 0.69 Peak Gradient: 0.74 mmHg Deceleration Time: 278.7 msec MV Mikey. Peak: Tissue Doppler E' Lateral Velocity: 0.09 m/s E/E': 4.78 Aortic Valve Peak Velocity: 1.47 m/s Mean Velocity: 0.99 m/s Peak Gradient: 8.64 mmHg Mean Gradient: 4.46 mmHg AV Area (continuity): 2.84 cm^2 AV VTI: 27.33 cm AV DVI: 0.71 LVOT Peak Velocity: 1.06 m/s Peak Gradient: 4.51 mmHg Mean Velocity: 0.69 m/s Mean Gradient: 2.25 mmHg LVOT Diameter: 2.26 cm LVOT VTI: 19.33 cm LVOT Area: 4.01 cm^2 LVOT SV:77.5 ml LVOT CO: 6.67 l/min LVOT CI: 3.1 l/min/m^2 Performing Organization Address City/State/Zipcode Phone Number [facility] XR chest 1 view portable / bedside (10/05/2018 6:37 AM SUPERVISOR CELL EFFICIENCY)Only the most recent of11 resultswithin the time period is included. Narrative Performed At FINAL REPORT [facility] Chest one view. Clinical history: interval change in interstitial pattern Comparison: October 04, 2018 Discussion: A frontal chest is provided. Cardiomediastinal contours are unchanged. There is mild atelectasis or scarring at the right lung base. Left lung is grossly clear. No julisa pulmonary edema, pneumothorax, or significant effusion. Signed: Galen Pride MD Report Verified Date/Time:10/05/2018 07:32:16 Reading Location: [facility] Radiology Reading Room Procedure Note Interface, External Ris In - 10/05/2018 7:34 AM SUPERVISOR [employer] EFFICIENCY FINAL REPORT Chest one view. Clinical history: interval change in interstitial pattern Comparison: October 04, 2018 Discussion: A frontal chest is provided. Cardiomediastinal contours are unchanged. There is mild atelectasis or scarring at the right lung base. Left lung is grossly clear. No julisa pulmonary edema, pneumothorax, or significant effusion. Signed: Galen Pride MD Report Verified Date/Time: 10/05/2018 07:32:16 Reading Location: [facility] Radiology Reading Room Performing Organization Address City/State/Zipcode Phone Number [facility] CBC with platelet count + automated diff (10/05/2018 6:01 AM SUPERVISOR CELL EFFICIENCY)Only the most recent of9 resultswithin the time period is included. WBC 6.3 3.5 - 10.5 K/L [facility] RBC 4.43 (L) 4.63 - 6.08 M/L [facility] Hemoglobin 13.6 (L) 13.7 - 17.5 GM/DL [facility] Hematocrit 39.8 (L) 40.1 - 51.0 % [facility] MCV 89.8 79.0 - 92.2 fL [facility] MCH 30.7 25.7 - 32.2 pg [facility] MCHC 34.2 32.3 - 36.5 GM/DL [facility] RDW 13.1 11.6 - 14.4 % [facility] Platelets 200 150 - 450 K/CU MM [facility] MPV 9.5 9.4 - 12.4 fL [facility] nRBC 0 0 - 0 /100 WBC [facility] % Neutros 65 % [facility] % Lymphs 24 % [facility] % Monos 8 % [facility] % Eos 2 % [facility] % Baso 1 % [facility] # Neutros 4.12 1.78 - 5.38 K/L [facility] # Lymphs 1.51 1.32 - 3.57 K/L [facility] # Monos 0.50 0.30 - 0.82 K/L [facility] # Eos 0.15 0.04 - 0.54 K/L [facility] # Baso 0.03 0.01 - 0.08 K/L [facility] Immature Granulocytes-Relative 1 0 - 1 % [facility] Specimen Blood Performing Organization Address City/State/Zipcode Phone Number [facility] [address] [place] [address] [phone] CENTER Troponin I (10/05/2018 6:01 AM SUPERVISOR CELL EFFICIENCY)Only the most recent of11 resultswithin the time period is included. Troponin I 0.02 0.00 - 0.03 ng/mL [facility] Specimen Blood Narrative Performed At Troponin I (TnI) levels must be interpreted [facility] in the context of the presenting symptoms and the clinical findings. Elevated TnI levels indicate myocardial damage, but are not specific for ischemic heart disease. Elevated TnI levels are seen in patients with other cardiac conditions (including myocarditis and congestive heart failure), and slight TnI elevations occur in patients with other conditions, including sepsis, renal failure, acidosis, acute neurological disease, and persistent tachyarrhythmia. Performing Organization Address City/[facility]/Zipcode Phone Number [address] [phone] [place] Basic Metabolic Panel (10/05/2018 6:01 AM [employer]PER[employer])Only the most recent of7 resultswithin the time period is included. Sodium 140 136 - 145 meq/L [facility] Potassium 3.2 (L) 3.5 - 5.1 meq/L [facility] Chloride 105 98 - 107 meq/L [facility] CO2 28 22 - 29 meq/L [facility] BUN 15 7 - 21 mg/dL [facility] Creatinine 0.74 0.57 - 1.25 mg/dL [facility] Glucose 191 (H) 70 - 105 mg/dL [facility] Calcium 9.1 8.4 - 10.2 mg/dL [facility] EGFR 106Comment: ESTIMATED GFR IS mL/min/1.73 sq m [facility] NOT ACCURATE [facility] CLEARANCE IN PREDICTING GLOMERULAR FILTRATION RATE. ESTIMATED GFR IS NOT APPLICABLE FOR DIALYSIS PATIENTS. Specimen Blood Performing Organization Address [facility]/[place] Phone Number [address] [address] [phone] CENTER Blood culture (10/04/2018 10:15 PM [employer])Only the most recent of4 resultswithin the time period is included. Result No growth in 5 days [facility] Specimen Blood - Arm, Left Performing Organization Address [facility]/[place] Phone Number [address] [phone] [place] Venous doppler legs bilateral (10/04/2018 9:55 PM [employer]Y)Only the most recent of2 resultswithin the time period is included. Ejection Fraction [facility] ECHO [facility]ART[facility] Impressions Performed At Right Impression [facility] 1. There is no deep venous obstruction in the common femoral, profunda femoral, femoral, popliteal or posterior tibial veins. 2. The peroneal veins are not seen. 3. There is no superficial venous obstruction in the great saphenous vein. Left Impression 1. There is no deep venous obstruction in the common femoral, profunda femoral, femoral, popliteal, posterior tibial or peroneal veins. 2. There is no superficial venous obstruction in the great saphenous vein. Conclusions Summary Venous duplex imaging and compression of the bilateral lower extremities were performed. The veins were technically difficult to visualize due to edema and patient body habitus. The bilateral venous systems were patent and compressible with no evidence of thrombus where visualized. The venous Doppler waveforms were phasic with respiration . Signature Velocities are measured in cm/s ; Diameters are measured in cm Narrative Performed At PV LAB - Lower Extremities DVT Study [facility] Demographics Patient NameGARRISON BURNETTDate of Study 10/04/2018 63 Visit [id number] Male of 1955 [id number] Phys[facility] Mohit Pc Support Specialist Vanesa Abbasi RVT Physician Procedure Type of Study: Veins: Lower Extremities DVT Study, VENOUS DOPPLER LEG, BILATERAL. Indications for Study:Concern for DVT . Patient Status:GIOVANNI. Study Location:Portable. Technical Quality:Adequate visualization. Risk Factors History of Disease + + +-------- + !Diagnosis !Date!Comments ! + + +-------- + !Other !!htn, hld, dm, copd ! + + +-------- + !History/Risk Factors:!10/04/2018!SOB ! ! !!Bilateral LE swelling! + + +-------- + Procedure Note Interface, External Ris In - 10/05/2018 1:18 PM [employer] [facility] - Lower Extremities DVT Study Demographics Patient Name GARRISON BURNETT Date of Study 10/04/2018 Age 63 Visit Number [id number] Gender Male Accession Number [id number] Date of 1955 Referring Denice Mackey Room Number [id number] Physician Mohit Pc Support Specialist Vanesa Hodgson Interpreting Jeanine Abbasi T Physician Procedure Type of Study: Veins: Lower Extremities DVT Study, VENOUS DOPPLER LEG, BILATERAL. Indications for Study:Concern for DVT . Patient Status:GIOVANNI. Study Location:Portable. Technical Quality:Adequate visualization. Risk Factors History of Disease + + + + !Diagnosis !Date !Comments ! + + + + !Other ! !htn, hld, dm, copd ! + + + + !History/Risk Factors: !10/04/2018!SOB ! ! ! !Bilateral LE swelling ! + + + + Impressions Right Impression 1. There is no deep venous obstruction in the common femoral, profunda femoral, femoral, popliteal or posterior tibial veins. 2. The peroneal veins are not seen. 3. There is no superficial venous obstruction in the great saphenous vein. Left Impression 1. There is no deep venous obstruction in the common femoral, profunda femoral, femoral, popliteal, posterior tibial or peroneal veins. 2. There is no superficial venous obstruction in the great saphenous vein. Conclusions Summary Venous duplex imaging and compression of the bilateral lower extremities were performed. The veins were technically difficult to visualize due to edema and patient body habitus. The bilateral venous systems were patent and compressible with no evidence of thrombus where visualized. The venous Doppler waveforms were phasic with respiration . Signature Velocities are measured in cm/s ; Diameters are measured in cm Performing Organization Address [facility] Phone Number [facility]ART[facility] TSH/Free T4 If Indicated (10/04/2018 5:12 PM [employer]Y)Only the most recent of2 resultswithin the time period is included. TSH 0.64 0.35 - 4.94 uIU/mL [facility] Specimen Blood - Arm, Left Performing Organization Address [facility] Phone Number [facility] [address] [place] [address] CENTER Folate, RBC (10/04/2018 5:12 PM [employer]Y) Folate, Rbc 600 >280 ng/mL RBC [facility] Specimen Blood - Arm, Left Narrative Performed At Performing Lab [facility] EZ [facility] [id number] [place] [id number] Dylan Ferris MD, PhD, VERONICA Performing Organization Address [facility] Phone Number [place] [address] [phone] [place] [address] Vitamin B12 (10/04/2018 5:12 PM [employer]PER[employer]Y) Vitamin B12 596 213 - 816 pg/mL [facility] Specimen Blood - Arm, Left Performing Organization Address City/State/Zipcode Phone Number [facility] [address] [place] [address] brain without IV contrast (10/04/2018 4:53 PM [employer]PER[employer]FFICIENCY) Narrative Performed At FINAL REPORT [employer] CT head without contrast 10/04/2018 4:57 PM CLINICAL HISTORY: Confusion/delirium, altered LOC, unexplained TECHNIQUE: Axial noncontrast CT images through the head were obtained. This examination was performed according to our departmental dose optimization program, which includes automated exposure control, adjustment of the mA and/or kV according to patient size, and/or use of iterated reconstruction technique. COMPARISON: None available FINDINGS: There is no hemorrhage, extra-axial collection, mass, hydrocephalus, or midline shift. There is mild microvascular ischemia in the supratentorial white matter . There is generalized parenchymal volume loss. The paranasal sinuses and mastoid air cells are well aerated. The skull is intact. IMPRESSION: No intracranial hemorrhage or mass effect. Chronic appearing microvascular and involutional changes. If concern for acute pathology persists, further evaluation with MRI is recommended. Signed: Sergio Rivas MD Report Verified Date/Time:10/04/2018 17:08:17 Reading Location: [facility] Radiology Reading Room Procedure Note Interface, External Ris In - 10/04/2018 5:10 PM [employer]Y FINAL REPORT CT head without contrast 10/04/2018 4:57 PM CLINICAL HISTORY: Confusion/delirium, altered LOC, unexplained TECHNIQUE: Axial noncontrast CT images through the head were obtained. This examination was performed according to our departmental dose optimization program, which includes automated exposure control, adjustment of the mA and/or kV according to patient size, and/or use of iterated reconstruction technique. COMPARISON: None available FINDINGS: There is no hemorrhage, extra-axial collection, mass, hydrocephalus, or midline shift. There is mild microvascular ischemia in the supratentorial white matter . There is generalized parenchymal volume loss. The paranasal sinuses and mastoid air cells are well aerated. The skull is intact. IMPRESSION: No intracranial hemorrhage or mass effect. Chronic appearing microvascular and involutional changes. If concern for acute pathology persists, further evaluation with MRI is recommended. Signed: Sergio Rivas MD Report Verified Date/Time: 10/04/2018 17:08:17 Reading Location: [facility] Radiology Reading Room Performing Organization Address City/[facility]/Zipcode Phone Number [facility] Blood gas, arterial (10/04/2018 3:50 PM [employer]Y)Only the most recent of7 resultswithin the time period is included. pH, Arterial 7.39 7.35 - 7.45 [facility] pCO2, Arterial 46 (H) 35 - 45 mmHg [facility] pO2, Arterial 71 (L) 80 - 90 mmHg [facility] O2 Sat, Arterial 94.1 (L) 96.0 - 97.0 % [facility] HCO3, Arterial 27 21 - 29 mmol/L [facility] Base Excess, Arterial 1.5 -2.0 - 3.0 mmol/L [facility] Patient Temperature 37.0 C [facility] FIO2 36.0 % [facility] Specimen Blood, Arterial - Arm, Left Performing Organization Address City/[facility]/Zipcode Phone Number [address] [address] CENTER RESPIRATORY PANEL [facility] (10/04/2018 3:25 PM [employer]Y) Human Metapneumovirus Not detected Not detected, [facility] Rhinovirus Not detected Not detected, [facility] Influenza A Not detected Not detected, [facility] INFLUENZA A (NO SUBTYPE) Not detected, [facility] Influenza A subtype H1 Not detected, [facility] Influenza A Subtype H3 Not detected, [facility] Influenza A Subtype H1-2009 Not detected, [facility] Influenza B Not detected Not detected, [facility] Respiratory Syncytial Virus Not detected Not detected, [facility] Parainfluenza Virus 1 Not detected Not detected, [facility] Parainfluenza Virus 2 Not detected Not detected, [facility] Parainfluenza virus 3 Not detected Not detected, [facility] Parainfluenza Virus 4 Not detected Not detected, [facility] Adenovirus Not detected Not detected, [facility] Coronavirus 229E Not detected Not detected, [facility] Coronavirus HKU1 Not detected Not detected, [facility] Coronavirus NL63 Not detected Not detected, [facility] Coronavirus OC43 Not detected Not detected, [facility] Bordetella Pertussis Not detected Not detected, [facility] Chlamydophila Pneumoniae Not detected Not detected, [facility] Mycoplasma Pneumoniae Not detected Not detected, [facility] Specimen Nasopharyngeal Narrative Performed At Other viruses and bacteria not targeted by [facility] this PCR panel cannot be excluded; therefore clinical correlation and follow up of serology, culture results, and other molecular studies is required. The results are not intended to be used as the sole means for clinical diagnosis or patient management decisions. This sample was tested at the [facility] using the [employer] Respiratory Panel. It is FDA cleared and has been verified and approved by the [facility] for clinical use on nasal swab specimens. It is not FDA-cleared for use on bronchial wash/lavage samples. However, for this sample type, validation was performed and test characteristics were determined and approved, by [facility] for clinical use under the Clinical Laboratory Improvement Amendments (CLIA) of 1988 requirements. Therefore, FDA clearance is not required.This laboratory is CLIA-certified and [facility] [employer] (CAP)-accredited to perform high complexity testing. Performing Organization Address [facility]/[place] Phone Number [address] [address] [phone] [place] Rapid Influenza A&B Screen (10/04/2018 3:25 PM [employer]PERVISOR [employer]LL EFFICIENCY) Rapid Influenza A NEGATIVE LABORATORY Negative, Inconclusive [facility] Antigen FINDING [facility] Rapid influenza B NEGATIVE LABORATORY Negative, Inconclusive [facility] Antigen FINDING [facility] Specimen Nasal - Nasopharyngeal Swab Performing Organization Address [facility] Phone Number [address] [address] [place] B-type Natriuretic Factor (BNP) (10/04/2018 12:25 PM [employer]PER[employer]FFICIENCY)Only the most recent of2 resultswithin the time period is included. BNP 23 0 - 100 pg/mL [facility] Specimen Blood - Arm, Right Performing Organization Address [facility] Phone Number [address] [address] [phone] CENTER Magnesium (10/04/2018 12:25 PM [employer]IC[employer]ENCY)Only the most recent of10 resultswithin the time period is included. Magnesium 1.1 (L) 1.6 - 2.6 mg/dL [facility] Specimen Blood - Arm, Right Performing Organization Address [facility] Phone Number [address] [address] [place] ECG 12 lead (10/04/2018 11:59 AM [employer]PER[employer]ICIENCY)Only the most recent of4 resultswithin the time period is included. Narrative Performed At Ventricular Rate 89 BPM GE MUSE Atrial Rate 89 BPM P-R Interval 160 ms QRS Duration 90 ms Q-T Interval 366 ms QTC Calculation(Bazett) 445 ms P [place] 20 degrees R [place] -42 degrees T [place] -34 degrees Sinus rhythm with Premature ventricular complex Left axis deviation T wave abnormality, consider inferior ischemia Abnormal ECG When compared with ECG of 05-SEP-2018 06:50, Premature ventricular complex is now Present Vent. rate has increased BY29 BPM Confirmed by MD CALVILLO MAJID ([id number]) on 10/05/2018 8:58:48 AM Procedure Note Interface, External Ris In - 10/05/2018 8:59 AM [employer]Y Ventricular Rate 89 BPM Atrial Rate 89 BPM P-R Interval 160 ms QRS Duration 90 ms Q-T Interval 366 ms QTC Calculation(Bazett) 445 ms P [place] 20 degrees R [place] -42 degrees T [place] -34 degrees Sinus rhythm with Premature ventricular complex Left axis deviation T wave abnormality, consider inferior ischemia Abnormal ECG When compared with ECG of 05-SEP-2018 06:50, Premature ventricular complex is now Present Vent. rate has increased BY 29 BPM Confirmed by MD CALVILLO MAJID ([id number]) on 10/05/2018 8:58:48 AM Performing Organization Address City/[facility] Phone Number [employer] CARDIAC CATH REPORT - SCAN (09/12/2018 11:21 AM SUPER[employer] EFFICIENCY) Narrative Performed At CARDIAC CATH REPORT - SCAN (09/12/2018 11:21 AM [employer]PER[employer] CELL EFFICIENCY) Narrative Performed At CARDIAC CATH REPORT - SCAN (09/12/2018 11:21 AM [employer]PER[employer] EFFICIENCY) Narrative Performed At Phosphorus (09/07/2018 4:13 AM [employer]PER[employer]LL EFFICIENCY)Only the most recent of4 resultswithin the time period is included. Phosphorus 2.0 (L) 2.3 - 4.7 mg/dL [facility] Specimen Blood - Arm, Left Performing Organization Address [facility]/[place] Phone Number [place] [phone] [place] [address] [phone] CENTER Comprehensive metabolic panel (09/07/2018 4:13 AM SUPER[employer]OR CE[employer] EFFICIENCY)Only the most recent of5 resultswithin the time period is included. Protein, Total 6.1 6.0 - 8.3 gm/dL [facility] Albumin 3.3 (L) 3.5 - 5.0 g/dL [facility] Alkaline Phosphatase 44 40 - 150 U/L [facility] Total Bilirubin 0.6 0.2 - 1.2 mg/dL [facility] Sodium 141 136 - 145 meq/L [facility] Potassium 3.5 3.5 - 5.1 meq/L [facility] Chloride 109 (H) 98 - 107 meq/L [facility] CO2 24 22 - 29 meq/L [facility] BUN 11 7 - 21 mg/dL [facility] Creatinine 0.63 0.57 - 1.25 mg/dL [facility] Glucose 134 (H) 70 - 105 mg/dL [facility] Calcium 8.3 (L) 8.4 - 10.2 mg/dL [facility] AST 21 5 - 34 U/L [facility] ALT 12 6 - 55 U/L [facility] EGFR 128Comment: ESTIMATED mL/min/1.73 sq m [facility] GFR IS NOT ACCURATE [facility] CREATININE CLEARANCE IN PREDICTING GLOMERULAR FILTRATION RATE. ESTIMATED GFR IS NOT APPLICABLE FOR DIALYSIS PATIENTS. Specimen Blood - Arm, Left Performing Organization Address City/State/Zipcode Phone Number [place] [phone] [place] [address] [phone] CENTER MR lumbar spine without & with IV contrast (09/05/2018 5:00 PM SUPER[employer]LL EFFICIENCY) Narrative Performed At FINAL REPORT [facility] MRI lumbar spine with and without contrast. CLINICAL HISTORY: r/o ALS, neuromuscular disorder TECHNIQUE: MRI of the lumbar spine was performed, utilizing the following sequences: Sagittal T1, T2, STIR; axial T1 and T2; postcontrast sagittal and axial T1 with fat suppression. COMPARISON: No priors FINDINGS: There is maintenance of the lumbar curvature and alignment. There is no evidence for vertebral body fracture or subluxation. Bone marrow signal intensity is within normal limits. The conus medullaris terminates at L1-L2. The spinal canal is narrow on a congenital basis and there are superimposed multilevel degenerative changes. At T12-L1, minimal disc bulge. No significant central canal or foraminal stenosis. At L1-L2, unremarkable At L2-L3, large disc bulge with superimposed central, and left foraminal disc protrusions. There is [id number]-jr-qcorardy narrowing of the central canal, and left lateral recess. Moderate bilateral foraminal stenosis. At L3-L4, moderate to large disc bulge, and moderate facet arthropathy with infolding of ligamentum flavum. The central canal is severely narrowed, and there is moderate to severe bilateral foraminal stenosis. At L4-L5, large disc bulge, and severe facet arthropathy. There is infolding of the ligamentum flavum. Central canal is severely narrowed. There is severe left, and moderate right foraminal stenosis. At L5-S1, moderate disc bulge and moderate to severe facet arthropathy. Central canal is mildly narrowed. There is moderate to severe bilateral foraminal stenosis. The visualized paraspinal and retroperitoneal soft tissues are unremarkable. 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 Central canal is severely narrowed at L3-L4 and L4-L5. There is also high-grade foraminal narrowing at several levels as described. Signed: Galen Pride MD Report Verified Date/Time:09/05/2018 18:10:50 Reading Location: [address] Neuro Reading Room Procedure Note Interface, External Ris In - 09/05/2018 6:13 PM [employer]Y FINAL REPORT MRI lumbar spine with and without contrast. CLINICAL HISTORY: r/o ALS, neuromuscular disorder TECHNIQUE: MRI of the lumbar spine was performed, utilizing the following sequences: Sagittal T1, T2, STIR; axial T1 and T2; postcontrast sagittal and axial T1 with fat suppression. COMPARISON: No priors FINDINGS: There is maintenance of the lumbar curvature and alignment. There is no evidence for vertebral body fracture or subluxation. Bone marrow signal intensity is within normal limits. The conus medullaris terminates at L1-L2. The spinal canal is narrow on a congenital basis and there are superimposed multilevel degenerative changes. At T12-L1, minimal disc bulge. No significant central canal or foraminal stenosis. At L1-L2, unremarkable At L2-L3, large disc bulge with superimposed central, and left foraminal disc protrusions. There is [id number] narrowing of the central canal, and left lateral recess. Moderate bilateral foraminal stenosis. At L3-L4, moderate to large disc bulge, and moderate facet arthropathy with infolding of ligamentum flavum. The central canal is severely narrowed, and there is moderate to severe bilateral foraminal stenosis. At L4-L5, large disc bulge, and severe facet arthropathy. There is infolding of the ligamentum flavum. Central canal is severely narrowed. There is severe left, and moderate right foraminal stenosis. At L5-S1, moderate disc bulge and moderate to severe facet arthropathy. Central canal is mildly narrowed. There is moderate to severe bilateral foraminal stenosis. The visualized paraspinal and retroperitoneal soft tissues are unremarkable. 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 Central canal is severely narrowed at L3-L4 and L4-L5. There is also high-grade foraminal narrowing at several levels as described. Signed: Galen Pride MD Report Verified Date/Time: 09/05/2018 18:10:50 Reading Location: [facility] [id number] Neuro Reading Room Performing Organization Address City/[facility]/Zipcode Phone Number [employer] Lipase (09/05/2018 10:10 AM SUPERVISOR CELL EFFICIENCY)Only the most recent of3 resultswithin the time period is included. Lipase 141 (H) 8 - 78 U/L [facility] Specimen Blood Performing Organization Address City/[facility]/Zipcode Phone Number [facility] [address] [place] [address] CENTER US abdomen complete (09/05/2018 1:32 AM SUPERVISOR CELL EFFICIENCY) Narrative Performed At FINAL REPORT [facility] [employer] INDICATION: abd distension,nausea,vomitting COMPARISON: None. TECHNIQUE:Real-time transabdominal serrano scale and color Doppler ultrasound of the abdomen. FINDINGS: Liver: Size: 18.5cm. Echogenicity: Increased parenchymal echogenicity. Masses/lesions: None. Surface Nodularity: None. Intrahepatic bile ducts: Normal. Common bile duct: 0.5 cm. MPV: 1.1cm. Gallbladder: Surgically absent. Pancreas: Head and uncinate process: Not well seen. Body and tail: Not well-seen. Spleen: Size: 11.0cm. Echogenicity: Unremarkable. Right kidney: Size: 12.3 x 6.8 x 6.1 cm. Parenchyma: Normal echogenicity. No cysts. No stones. Hydronephrosis: None. Left kidney: Size: 13.6 x 6.5 x 6.0 cm. Parenchyma: Normal echogenicity. No cysts. No stones. Hydronephrosis: None. Ascites: None. Regional Vasculature: The visible abdominal aorta, IVC and hepatic veins are patent. The aorta measures 2.3 cm proximally, 2.2 cm in the midportion and 1.7 cm distally. Additional findings: None. IMPRESSION: Hepatomegaly with fatty infiltration. Signed: Ozzie Avila MD Report Verified Date/Time:09/05/2018 02:32:11 Reading Location: [address] Transitional Reading Room Procedure Note Interface, External Ris In - 09/05/2018 2:34 AM SUPER[employer]OR [employer] EFFICIENCY FINAL REPORT INDICATION: abd distension,nausea,vomitting COMPARISON: None. TECHNIQUE: Real-time transabdominal serrano scale and color Doppler ultrasound of the abdomen. FINDINGS: Liver: Size: 18.5cm. Echogenicity: Increased parenchymal echogenicity. Masses/lesions: None. Surface Nodularity: None. Intrahepatic bile ducts: Normal. Common bile duct: 0.5 cm. MPV: 1.1cm. Gallbladder: Surgically absent. Pancreas: Head and uncinate process: Not well seen. Body and tail: Not well-seen. Spleen: Size: 11.0cm. Echogenicity: Unremarkable. Right kidney: Size: 12.3 x 6.8 x 6.1 cm. Parenchyma: Normal echogenicity. No cysts. No stones. Hydronephrosis: None. Left kidney: Size: 13.6 x 6.5 x 6.0 cm. Parenchyma: Normal echogenicity. No cysts. No stones. Hydronephrosis: None. Ascites: None. Regional Vasculature: The visible abdominal aorta, IVC and hepatic veins are patent. The aorta measures 2.3 cm proximally, 2.2 cm in the midportion and 1.7 cm distally. Additional findings: None. IMPRESSION: Hepatomegaly with fatty infiltration. Signed: Ozzie Avila MD Report Verified Date/Time: 09/05/2018 02:32:11 Reading Location: [facility] C013T Transitional Reading Room Performing Organization Address City/State/Zipcode Phone Number [employer] RIS CT abdomen/pelvis with IV contrast (09/04/2018 8:18 PM [employer]) Narrative Performed At FINAL REPORT [employer] CLINICAL HISTORY: Nausea, vomiting, diarrhea FINDINGS: Multiple axial images of the abdomen and pelvis were performed after the uncomplicated administration of IV contrast. Oral contrast was not given. This exam was performed according to our departmental dose-optimization program, which includes automated exposure control, adjustment of the mA and/or kV according to patient size and/or use of the iterative reconstruction technique. Comparison:None. Correlation is made with a CT of the chest dated 08/30/2018 Lower chest: Patchy opacity in the right lung base may reflect atelectasis in the presence of an elevated right hemidiaphragm. Pneumonitis should be excluded clinically.No pleural effusion or pneumothorax. Atherosclerotic calcification of the coronary arteries. Liver: Low-density liver parenchyma, suggesting steatosis Gallbladder and biliary tree: Previous cholecystectomy Spleen: No significant findings. Adrenal Glands: No significant findings. Kidneys and ureters: No significant findings. Stomach and Duodenum: No significant findings. Pancreas: No significant findings. Bowel: No bowel obstruction or pneumatosis intestinalis. Left colonic diverticulosis. There is a lentiform focus of increased attenuation in in the antimesenteric fat of the descending colon measuring 2.2 x 1.1 cm. The appearance is most suggestive of epiploic appendagitis/fat necrosis. A focal diverticulitis is less likely but within the differential diagnosis. Appendix: Normal. Bladder: Decompressed with a Burroughs catheter Major vascular structures: Atherosclerotic calcifications Reproductive organs: No significant findings. Other:No free air, fluid or adenopathy Skeleton: No acute bony abnormality. Several chronic right posterior rib fracture deformities. IMPRESSION: No bowel obstruction. Left colonic diverticulosis. There is a lentiform focus of increased attenuation in the antimesenteric fat of the descending colon measuring 2.2 x 1.1 cm, possibly epiploic appendagitis/fat necrosis. The sequela of diverticulitis is less likely but within the differential diagnosis. Hepatic steatosis. Previous cholecystectomy. Patchy opacity in the right lung base may relate to atelectasis or scarring in the presence of an elevated right hemidiaphragm. Overall opacity in the right lung base is improved when compared to CT chest dated 08/30/2018. Follow-up CT chest after completion of a course of treatment to demonstrate resolution and exclude an underlying lesion is recommended. Signed: Blair Dang MD Report Verified Date/Time:09/04/2018 21:34:29 Reading Location: [address] Reading Room Procedure Note Interface, External Ris In - 09/04/2018 9:36 PM [employer] FINAL REPORT CLINICAL HISTORY: Nausea, vomiting, diarrhea FINDINGS: Multiple axial images of the abdomen and pelvis were performed after the uncomplicated administration of IV contrast. Oral contrast was not given. This exam was performed according to our departmental dose-optimization program, which includes automated exposure control, adjustment of the mA and/or kV according to patient size and/or use of the iterative reconstruction technique. Comparison:None. Correlation is made with a CT of the chest dated 08/30/2018 Lower chest: Patchy opacity in the right lung base may reflect atelectasis in the presence of an elevated right hemidiaphragm. Pneumonitis should be excluded clinically. No pleural effusion or pneumothorax. Atherosclerotic calcification of the coronary arteries. Liver: Low-density liver parenchyma, suggesting steatosis Gallbladder and biliary tree: Previous cholecystectomy Spleen: No significant findings. Adrenal Glands: No significant findings. Kidneys and ureters: No significant findings. Stomach and Duodenum: No significant findings. Pancreas: No significant findings. Bowel: No bowel obstruction or pneumatosis intestinalis. Left colonic diverticulosis. There is a lentiform focus of increased attenuation in in the antimesenteric fat of the descending colon measuring 2.2 x 1.1 cm. The appearance is most suggestive of epiploic appendagitis/fat necrosis. A focal diverticulitis is less likely but within the differential diagnosis. Appendix: Normal. Bladder: Decompressed with a Burroughs catheter Major vascular structures: Atherosclerotic calcifications Reproductive organs: No significant findings. Other: No free air, fluid or adenopathy Skeleton: No acute bony abnormality. Several chronic right posterior rib fracture deformities. IMPRESSION: No bowel obstruction. Left colonic diverticulosis. There is a lentiform focus of increased attenuation in the antimesenteric fat of the descending colon measuring 2.2 x 1.1 cm, possibly epiploic appendagitis/fat necrosis. The sequela of diverticulitis is less likely but within the differential diagnosis. Hepatic steatosis. Previous cholecystectomy. Patchy opacity in the right lung base may relate to atelectasis or scarring in the presence of an elevated right hemidiaphragm. Overall opacity in the right lung base is improved when compared to CT chest dated 08/30/2018. Follow-up CT chest after completion of a course of treatment to demonstrate resolution and exclude an underlying lesion is recommended. Signed: Blair Dang MD Report Verified Date/Time: 09/04/2018 21:34:29 Reading Location: [address] Reading Room Performing Organization Address City/State/Zipcode Phone Number [employer] NEEDLE EMG, 4 EXTREMITY (09/04/2018 3:25 PM [employer]) Narrative Performed At [facility] [employer] Neurophysiology Department ELECTROMYOGRAPHY - NERVE CONDUCTION STUDY [address] [place] [address] Name: Garrison Burnett Address:Date of : 1955 Gender: Male Date of Exam: 09/04/2018 3:58 PM Referring Physician: Mikie Singh Examining Physician: Erica Henriquez Patient History: Patient is currently admitted for possible NSTEMI, generalized weakness and shortness of breath; endorses chronic paresthesias in feet and history of diabetes.Exam shows 5/5 strength throughout, previously reported tongue fasciculations but none on exam today with normal genioglossus strength.This study was done to evaluate for polyneuropathy or diffuse denervation. Motor Nerve Conduction: Nerve and Site Latency Amplitude Segment Latency Difference Distance Conduction Velocity Peroneal.L Ankle NRNRExtensor digitorum brevis-Ankle80 mm Fibula (head) NRNRAnkle-Fibula (head)290 mm Knee NRNRFibula (head)-[id number] mm Peroneal.L Fibula (head) 4.0 ms 3.1 mV Tibialis anterior-Fibula (head) 4.0 ms Popliteal fossa 5.5 ms 3.4 mV Fibula (head)-Popliteal fossa 1.5 ms 100 mm 67 m/s Tibial.L Ankle 4.7 ms 0.8 mV Abductor hallucis-Ankle 4.7 ms 80 mm Popliteal fossa 13.5 ms 0.9 mV Ankle-Popliteal fossa 8.8 ms 360 mm 41 m/s Median.L Wrist 4.7 ms 5.5 mV Abductor pollicis brevis-Wrist 4.7 ms 60 mm Elbow 9.3 ms 4.9 mV Wrist-Elbow 4.6 ms 215 mm 47 m/s Ulnar.L Wrist 3.1 ms 5.6 mV Abductor digiti minimi (manus)-Wrist 3.1 ms 60 mm Below elbow 7.1 ms 3.5 mV Wrist-Below elbow 4.0 ms 195 mm 49 m/s Above elbow 8.9 ms 3.5 mV Below elbow-Above elbow 1.8 ms 100 mm 56 m/s Peroneal.R Ankle NR NR Extensor digitorum brevis-Ankle80 mm Fibula (head) NR NR Ankle-Fibula (head)295 mm Knee NR NR Fibula (head)-[id number] mm Peroneal.R Fibula (head) 3.1 ms 1.6 mV Tibialis anterior-Fibula (head) 3.1 ms Popliteal fossa 5.5 ms 1.9 mV Fibula (head)-Popliteal fossa 2.4 ms 100 mm 42 m/s Tibial.R Ankle 4.7 ms 0.4 mV Abductor hallucis-Ankle 4.7 ms 80 mm Popliteal fossa 12.6 ms 0.4 mV Ankle-Popliteal fossa 7.9 ms 365 mm 46 m/s Median.R Wrist 5.5 ms 7.6 mV Abductor pollicis brevis-Wrist 5.5 ms 60 mm Elbow 10.4 ms 7.2 mV Wrist-Elbow 4.9 ms 235 mm 48 m/s Ulnar.R Wrist 3.5 ms 5.8 mV Abductor digiti minimi (manus)-Wrist 3.5 ms 60 mm Below elbow 7.5 ms 5.0 mV Wrist-Below elbow 4.0 ms 205 mm 51 m/s Above elbow 9.5 ms 5.0 mV Below elbow-Above elbow 2.0 ms 100 mm 50 m/s F-Wave Studies Nerve M-Latency F-Latency Tibial.L 13.5 32.4 Median.L 9.3 30.8 Ulnar.L 8.9 31.0 Tibial.R 12.6 NR Median.R 10.4 30.7 Ulnar.R 9.5 31.6 Sensory Nerve Conduction: Nerve and Site Onset Latency Peak Latency Amplitude Segment Latency Difference Distance Conduction Velocity Sural.L Lower leg NRNR NR Ankle-Lower plj116 mm Median.L Wrist 4.0 ms 4.6 ms 4 mV Digit II (index finger)-Wrist 4.0 ms 130 mm 33 m/s Ulnar.L Wrist NRNR NR Digit V (little finger)-[id number] mm Radial.L Forearm 1.1 ms 2.0 ms 23 mV Anatomical snuff box-Forearm 1.1 ms 110 mm 55 m/s Sural.R Lower leg 2.4 ms 3.5 ms 5 mV Ankle-Lower leg 2.4 ms 140 mm 40 m/s Median.R Wrist 3.8 ms 4.5 ms 8 mV Digit II (index finger)-Wrist 3.8 ms 130 mm 34 m/s Ulnar.R Wrist NR NR NR Digit V (little finger)-[id number] mm Radial.R Forearm 1.9 ms 2.5 ms 18 mV Anatomical snuff box-Forearm 1.9 ms 95 mm 38 m/s H-waves: Nerve Latency Amplitude (max) Tibial.L M-wave: 5.7 ms 3.0 mV H-wave: NR NR Tibial.R M-wave: 5.9 ms 3.5 mV H-wave: NR NR Needle EMG Examination: Insertional Spontaneous Activity Volitional MUAPs Muscle Insertional Fibs +Wave Fasc Duration Amplitude Poly Pattern Effort Tibialis anterior.R Normal None None None Sl. Incr. Sl. Incr. Few Mild Reduced Max. Gastrocnemius (Medial head).R Normal None None None Normal Sl. Incr. None Mild Reduced Max. Vastus medialis.R Normal None None None Normal Normal None Normal Max. 1st dorsal interosseous.R Normal None None None Sl. Incr. Sl. Incr. None Mild Reduced Max. Deltoid.R Normal None None None Normal Normal None Normal Max. Triceps brachii.R Normal None None None Normal Normal None Normal Max. Flexor carpi radialis.R Normal None None None Normal Normal None Normal Max. Extensor hallucis longus.R Normal None None None Gr. Incr. Gr. Incr. None Mild Reduced Max. Genioglossus.R Normal None None None Normal Normal None Normal Max. Genioglossus.L Normal None None None Normal Normal None Normal Max. Summary of findings: 1.Sensory studies of the left sural and bilateral ulnar nerves showed no responses.The right sural and both radial nerves showed normal findings but with sural/radial ratio of 0.15.The median nerves showed prolonged distal latencies and low amplitudes. 2.Motor studies of the bilateral peroneal nerves showed no responses.When recording at the TA's, amplitudes were normal on the left and slightly low on the right.The tibial nerves showed low amplitudes.The median nerves showed prolonged distal latencies, slightly low amplitude on the left only and slightly slow velocities. The ulnar nerves showed normal findings.F-wave latencies were normal except for no response in right tibial nerve. 3.H-wave reflexes recording at the soleus muscles showed no responses. 4.Electromyography of the right upper and lower limbs and genioglossus was done using a disposable concentric needle.There was no abnormal spontaneous activity.There were mild chronic neurogenic changes in the distal muscles (TA, gastrocnemius, FDI) but the remainder of the muscles tested showed normal findings. 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 There is no electrophysiologic evidence of bulbar or diffuse denervation. Erica Henriquez M.D. Procedure Note Interface, External Ris In - 09/04/2018 4:22 PM [facility] Neurophysiology Department ELECTROMYOGRAPHY - NERVE CONDUCTION STUDY [address] [facility] [address] [place] [address] Name: Garrison Burnett Address: Date of : 1955 Gender: Male Date of Exam: 09/04/2018 3:58 PM Referring Physician: Mikie Singh Examining Physician: Erica Henriquez Patient History: Patient is currently admitted for possible NSTEMI, generalized weakness and shortness of breath; endorses chronic paresthesias in feet and history of diabetes. Exam shows 5/5 strength throughout, previously reported tongue fasciculations but none on exam today with normal genioglossus strength. This study was done to evaluate for polyneuropathy or diffuse denervation. Motor Nerve Conduction: Nerve and Site Latency Amplitude Segment Latency Difference Distance Conduction Velocity Peroneal.L Ankle NR NR Extensor digitorum brevis-Ankle 80 mm Fibula (head) NR NR Ankle-Fibula (head) 290 mm Knee NR NR Fibula (head)-Knee 100 mm Peroneal.L Fibula (head) 4.0 ms 3.1 mV Tibialis anterior-Fibula (head) 4.0 ms Popliteal fossa 5.5 ms 3.4 mV Fibula (head)-Popliteal fossa 1.5 ms 100 mm 67 m/s Tibial.L Ankle 4.7 ms 0.8 mV Abductor hallucis-Ankle 4.7 ms 80 mm Popliteal fossa 13.5 ms 0.9 mV Ankle-Popliteal fossa 8.8 ms 360 mm 41 m/s Median.L Wrist 4.7 ms 5.5 mV Abductor pollicis brevis-Wrist 4.7 ms 60 mm Elbow 9.3 ms 4.9 mV Wrist-Elbow 4.6 ms 215 mm 47 m/s Ulnar.L Wrist 3.1 ms 5.6 mV Abductor digiti minimi (manus)-Wrist 3.1 ms 60 mm Below elbow 7.1 ms 3.5 mV Wrist-Below elbow 4.0 ms 195 mm 49 m/s Above elbow 8.9 ms 3.5 mV Below elbow-Above elbow 1.8 ms 100 mm 56 m/s Peroneal.R Ankle NR NR Extensor digitorum brevis-Ankle 80 mm Fibula (head) NR NR Ankle-Fibula (head) 295 mm Knee NR NR Fibula (head)-Knee 100 mm Peroneal.R Fibula (head) 3.1 ms 1.6 mV Tibialis anterior-Fibula (head) 3.1 ms Popliteal fossa 5.5 ms 1.9 mV Fibula (head)-Popliteal fossa 2.4 ms 100 mm 42 m/s Tibial.R Ankle 4.7 ms 0.4 mV Abductor hallucis-Ankle 4.7 ms 80 mm Popliteal fossa 12.6 ms 0.4 mV Ankle-Popliteal fossa 7.9 ms 365 mm 46 m/s Median.R Wrist 5.5 ms 7.6 mV Abductor pollicis brevis-Wrist 5.5 ms 60 mm Elbow 10.4 ms 7.2 mV Wrist-Elbow 4.9 ms 235 mm 48 m/s Ulnar.R Wrist 3.5 ms 5.8 mV Abductor digiti minimi (manus)-Wrist 3.5 ms 60 mm Below elbow 7.5 ms 5.0 mV Wrist-Below elbow 4.0 ms 205 mm 51 m/s Above elbow 9.5 ms 5.0 mV Below elbow-Above elbow 2.0 ms 100 mm 50 m/s F-Wave Studies Nerve M-Latency F-Latency Tibial.L 13.5 32.4 Median.L 9.3 30.8 Ulnar.L 8.9 31.0 Tibial.R 12.6 NR Median.R 10.4 30.7 Ulnar.R 9.5 31.6 Sensory Nerve Conduction: Nerve and Site Onset Latency Peak Latency Amplitude Segment Latency Difference Distance Conduction Velocity Sural.L Lower leg NR NR NR Ankle-Lower leg 140 mm Median.L Wrist 4.0 ms 4.6 ms 4 mV Digit II (index finger)-Wrist 4.0 ms 130 mm 33 m/s Ulnar.L Wrist NR NR NR Digit V (little finger)-Wrist 110 mm Radial.L Forearm 1.1 ms 2.0 ms 23 mV Anatomical snuff box-Forearm 1.1 ms 110 mm 55 m/s Sural.R Lower leg 2.4 ms 3.5 ms 5 mV Ankle-Lower leg 2.4 ms 140 mm 40 m/s Median.R Wrist 3.8 ms 4.5 ms 8 mV Digit II (index finger)-Wrist 3.8 ms 130 mm 34 m/s Ulnar.R Wrist NR NR NR Digit V (little finger)-Wrist 110 mm Radial.R Forearm 1.9 ms 2.5 ms 18 mV Anatomical snuff box-Forearm 1.9 ms 95 mm 38 m/s H-waves: Nerve Latency Amplitude (max) Tibial.L M-wave: 5.7 ms 3.0 mV H-wave: NR NR Tibial.R M-wave: 5.9 ms 3.5 mV H-wave: NR NR Needle EMG Examination: Insertional Spontaneous Activity Volitional MUAPs Muscle Insertional Fibs +Wave Fasc Duration Amplitude Poly Pattern Effort Tibialis anterior.R Normal None None None Sl. Incr. Sl. Incr. Few Mild Reduced Max. Gastrocnemius (Medial head).R Normal None None None Normal Sl. Incr. None Mild Reduced Max. Vastus medialis.R Normal None None None Normal Normal None Normal Max. 1st dorsal interosseous.R Normal None None None Sl. Incr. Sl. Incr. None Mild Reduced Max. Deltoid.R Normal None None None Normal Normal None Normal Max. Triceps brachii.R Normal None None None Normal Normal None Normal Max. Flexor carpi radialis.R Normal None None None Normal Normal None Normal Max. Extensor hallucis longus.R Normal None None None Gr. Incr. Gr. Incr. None Mild Reduced Max. Genioglossus.R Normal None None None Normal Normal None Normal Max. Genioglossus.L Normal None None None Normal Normal None Normal Max. Summary of findings: 1. Sensory studies of the left sural and bilateral ulnar nerves showed no responses. The right sural and both radial nerves showed normal findings but with sural/radial ratio of 0.15. The median nerves showed prolonged distal latencies and low amplitudes. 2. Motor studies of the bilateral peroneal nerves showed no responses. When recording at the TA's, amplitudes were normal on the left and slightly low on the right. The tibial nerves showed low amplitudes. The median nerves showed prolonged distal latencies, slightly low amplitude on the left only and slightly slow velocities. The ulnar nerves showed normal findings. F-wave latencies were normal except for no response in right tibial nerve. 3. H-wave reflexes recording at the soleus muscles showed no responses. 4. Electromyography of the right upper and lower limbs and genioglossus was done using a disposable concentric needle. There was no abnormal spontaneous activity. There were mild chronic neurogenic changes in the distal muscles (TA, gastrocnemius, FDI) but the remainder of the muscles tested showed normal findings. Conclusions: This is an abnormal electrodiagnostic study due to the followin. 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 2. 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 There is no electrophysiologic evidence of bulbar or diffuse denervation. Erica Henriquez M.D. Performing Organization Address City/[facility]/[email or web address] Phone Number [employer] XR abdomen / KUB 1 view (09/04/2018 10:20 AM [employer])Only the most recent of3 resultswithin the time period is included. Narrative Performed At FINAL REPORT [employer] Abdomen one view Comparison: September 03, 2018 Reason for exam:abdominal distension Findings: There is gaseous distention of the stomach. Correlate clinically for gastroparesis or outlet obstruction. Bowel gas pattern is otherwise nonspecific and nonobstructive. No free air is identified. Surgical clips are seen in the right upper abdomen. Osseous structures demonstrate degenerative changes. Signed: Galen Pride MD Report Verified Date/Time:09/04/2018 10:34:31 Reading Location: [facility] Reading Room Procedure Note Interface, External Ris In - 09/04/2018 10:36 AM [employer] FINAL REPORT Abdomen one view Comparison: September 03, 2018 Reason for exam: abdominal distension Findings: There is gaseous distention of the stomach. Correlate clinically for gastroparesis or outlet obstruction. Bowel gas pattern is otherwise nonspecific and nonobstructive. No free air is identified. Surgical clips are seen in the right upper abdomen. Osseous structures demonstrate degenerative changes. Signed: Galen Pride MD Report Verified Date/Time: 09/04/2018 10:34:31 Reading Location: [facility] Radiology Reading Room Performing Organization Address [facility]/Zipcode Phone Number [facility] Amylase (09/04/2018 9:38 AM [employer]) Amylase 86 25 - 125 U/L [facility] Specimen Blood - Central Venous Line Performing Organization Address [facility]/[employer] Phone Number [facility] [address] [place] [address] [place] Clostridium difficile [facility] Toxin (09/03/2018 7:02 PM [employer]) C. Difficle Toxin Negative Negative [facility] C. Difficile [facility] Antigen NegativeComment: No Negative [facility] indication of Clostridium [facility] difficile infection and no colonization. Discontinue enteric isolation and therapy. Specimen Stool - Stool Narrative Performed At Testing performed by [employer] [facility] Assay.For [facility], published sensitivity of the assay is 98.7% compared to cytotoxicity testing.For Toxin AB, published sensitivity is 87.8% and specificity 99.4% compared to cytotoxicity testing. Verification of kit performance was done by the [facility] prior to clinical use. Performing Organization Address [facility]/[employer] Phone Number [address] [address] [place] MR cervical spine without & with IV contrast (09/02/2018 11:13 PM [employer]) Narrative Performed At FINAL REPORT [facility] MR Cervical spine with and without contrast. CLINICAL HISTORY: r/o ALS, neuromuscular disorder TECHNIQUE: MRI of the cervical spine utilizing sagittal T1, T2, STIR, axial T1, T2; and postgadolinium axial and sagittal T1-weighted images. COMPARISON: None FINDINGS: Reversal of the normal cervical lordosis centered at C5-C6. Marrow signals within normal limits. The vertebral body heights are maintained. The visualized posterior fossa is intact. Prevertebral and paravertebral soft tissues are unremarkable.Fluid in the nasopharynx and oropharynx likely related to endotracheal and enteric tubes. The cervical cord is normal in contour and caliber without signal change. There is no abnormal enhancement in the cervical spine or cord. C1-C2: No spinal canal or neuroforaminal stenosis. C2-C3: No spinal canal or neural foraminal stenosis. C3-C4: No spinal canal or neural foraminal stenosis. C4-C5: No significant spinal canal or neuroforaminal stenosis. C5-C6: Bilateral uncovertebral spurring and disc osteophyte complex results in mild spinal canal and left greater than right neural foraminal stenosis. C6-C7:Right greater than left uncovertebral spurring with central disc osteophyte complex results in moderate right greater than left neural foraminal and mild spinal canal stenosis. C7-T1:No spinal canal or neural foraminal stenosis. IMPRESSION: No cord signal abnormalities or abnormal enhancement within the cervical spine. Mild multilevel degenerative changes as described above. Signed: Ozzie Avila MD Report Verified Date/Time:09/03/2018 00:54:27 Reading Location: [address] Transitional Reading Room Procedure Note Interface, External Ris In - 09/03/2018 12:56 AM [employer] FINAL REPORT MR Cervical spine with and without contrast. CLINICAL HISTORY: r/o ALS, neuromuscular disorder TECHNIQUE: MRI of the cervical spine utilizing sagittal T1, T2, STIR, axial T1, T2; and postgadolinium axial and sagittal T1-weighted images. COMPARISON: None FINDINGS: Reversal of the normal cervical lordosis centered at C5-C6. Marrow signals within normal limits. The vertebral body heights are maintained. The visualized posterior fossa is intact. Prevertebral and paravertebral soft tissues are unremarkable. Fluid in the nasopharynx and oropharynx likely related to endotracheal and enteric tubes. The cervical cord is normal in contour and caliber without signal change. There is no abnormal enhancement in the cervical spine or cord. C1-C2: No spinal canal or neuroforaminal stenosis. C2-C3: No spinal canal or neural foraminal stenosis. C3-C4: No spinal canal or neural foraminal stenosis. C4-C5: No significant spinal canal or neuroforaminal stenosis. C5-C6: Bilateral uncovertebral spurring and disc osteophyte complex results in mild spinal canal and left greater than right neural foraminal stenosis. C6-C7: Right greater than left uncovertebral spurring with central disc osteophyte complex results in moderate right greater than left neural foraminal and mild spinal canal stenosis. C7-T1: No spinal canal or neural foraminal stenosis. IMPRESSION: No cord signal abnormalities or abnormal enhancement within the cervical spine. Mild multilevel degenerative changes as described above. Signed: Ozzie Avila MD Report Verified Date/Time: 09/03/2018 00:54:27 Reading Location: [facility] C013T Transitional Reading Room Performing Organization Address City/State/Zipcode Phone Number [employer] MR brain without & with IV contrast (09/02/2018 11:13 PM [employer]) Narrative Performed At FINAL REPORT [employer] CLINICAL HISTORY: r/o ALS TECHNIQUE: MRI of the brain utilizing axial T2, FLAIR, GRE, DWI; sagittal and coronal T1-weighted images as well as postcontrast T1 weighted images. MRA of the head utilizing 3-D atpx-ay-zvirwx technique, with 3-D reconstructions. MRA of the neck utilizing 2-D and 3-D dmad-bu-wjirmn technique, with 3-D reconstructions. COMPARISON: None MRI Brain without and with contrast Findings: Brain: There is no evidence of acute infarct or hemorrhage. Few bilateral T2 and FLAIR hyperintense white matter foci likely represent chronic white matter microvascular disease.. Ventricles are normal in size and configuration. Possible subtle diffuse cortical hyperintense FLAIR signal may be artifactual however hypoxic ischemic injury could have this appearance. No associated restricted diffusion. Generalized volume loss with commensurate enlargement of CSF spaces and ventricles. There is no hydrocephalus or midline shift. There are no extra-axial fluid collections. The craniocervical junction is preserved. The major intracranial flow-voids appear patent. No abnormal enhancement. Mucosal thickening in the bilateral sphenoid sinuses, ethmoid air cells and maxillary sinuses. Trace left and small right mastoid air cell effusion.Intraorbital contents are unremarkable. No aggressive osseous or soft tissue lesions identified. MRA head: The left vertebral artery terminates in PICA. Multifocal atherosclerosis results in multifocal mild stenosis of the bilateral and two branches of the MCAs. No large vessel occlusion. There is no evidence of intracranial aneurysm. MRA Neck Narrowing of the proximal left internal carotid artery approximately 60% per NASCET criteria. The right carotid artery in the neck are patent including their bifurcations. The origins of the bilateral vertebral arteries are not well evaluated secondary to technique otherwise there is antegrade flow in the vertebral arteries in the neck. IMPRESSION: No evidence of acute infarct, hemorrhage, or hydrocephalus. Possible subtle diffuse cortical hyperintense FLAIR signal may be artifactual however hypoxic ischemic injury could have this appearance.Correlate clinically. No evidence for a major [place] proximal branch vessel occlusion. Intracranial atherosclerosis results in multifocal mild stenosis of the bilateral M2 segments of the middle cerebral arteries. 60% stenosis of the proximal left internal carotid artery by NASCET criteria No evidence of hemodynamically significant stenosis in the right cervical carotid or vertebral arteries by NASCET criteria. Signed: Ozzie Avila MD Report Verified Date/Time:09/03/2018 00:45:16 Reading Location: [address] Transitional Reading Room Procedure Note Interface, External Ris In - 09/03/2018 12:47 AM [employer] FINAL REPORT CLINICAL HISTORY: r/o ALS TECHNIQUE: MRI of the brain utilizing axial T2, FLAIR, GRE, DWI; sagittal and coronal T1-weighted images as well as postcontrast T1 weighted images. MRA of the head utilizing 3-D azxe-cu-mruicj technique, with 3-D reconstructions. MRA of the neck utilizing 2-D and 3-D qxjg-iw-yfgaub technique, with 3-D reconstructions. COMPARISON: None MRI Brain without and with contrast Findings: Brain: There is no evidence of acute infarct or hemorrhage. Few bilateral T2 and FLAIR hyperintense white matter foci likely represent chronic white matter microvascular disease.. Ventricles are normal in size and configuration. Possible subtle diffuse cortical hyperintense FLAIR signal may be artifactual however hypoxic ischemic injury could have this appearance. No associated restricted diffusion. Generalized volume loss with commensurate enlargement of CSF spaces and ventricles. There is no hydrocephalus or midline shift. There are no extra-axial fluid collections. The craniocervical junction is preserved. The major intracranial flow-voids appear patent. No abnormal enhancement. Mucosal thickening in the bilateral sphenoid sinuses, ethmoid air cells and maxillary sinuses. Trace left and small right mastoid air cell effusion. Intraorbital contents are unremarkable. No aggressive osseous or soft tissue lesions identified. MRA head: The left vertebral artery terminates in PICA. Multifocal atherosclerosis results in multifocal mild stenosis of the bilateral and two branches of the MCAs. No large vessel occlusion. There is no evidence of intracranial aneurysm. MRA Neck Narrowing of the proximal left internal carotid artery approximately 60% per NASCET criteria. The right carotid artery in the neck are patent including their bifurcations. The origins of the bilateral vertebral arteries are not well evaluated secondary to technique otherwise there is antegrade flow in the vertebral arteries in the neck. IMPRESSION: No evidence of acute infarct, hemorrhage, or hydrocephalus. Possible subtle diffuse cortical hyperintense FLAIR signal may be artifactual however hypoxic ischemic injury could have this appearance. Correlate clinically. No evidence for a major [place] proximal branch vessel occlusion. Intracranial atherosclerosis results in multifocal mild stenosis of the bilateral M2 segments of the middle cerebral arteries. 60% stenosis of the proximal left internal carotid artery by NASCET criteria No evidence of hemodynamically significant stenosis in the right cervical carotid or vertebral arteries by NASCET criteria. Signed: Ozzie Avila MD Report Verified Date/Time: 09/03/2018 00:45:16 Reading Location: [address] Reading Room Performing Organization Address City/State/Zipcode Phone Number [employer] MRA neck without IV contrast (09/02/2018 11:13 PM [employer]) Narrative Performed At FINAL REPORT [employer] CLINICAL HISTORY: r/o ALS TECHNIQUE: MRI of the brain utilizing axial T2, FLAIR, GRE, DWI; sagittal and coronal T1-weighted images as well as postcontrast T1 weighted images. MRA of the head utilizing 3-D wxxs-tq-vrlvzg technique, with 3-D reconstructions. MRA of the neck utilizing 2-D and 3-D jygy-gm-msagsm technique, with 3-D reconstructions. COMPARISON: None MRI Brain without and with contrast Findings: Brain: There is no evidence of acute infarct or hemorrhage. Few bilateral T2 and FLAIR hyperintense white matter foci likely represent chronic white matter microvascular disease.. Ventricles are normal in size and configuration. Possible subtle diffuse cortical hyperintense FLAIR signal may be artifactual however hypoxic ischemic injury could have this appearance. No associated restricted diffusion. Generalized volume loss with commensurate enlargement of CSF spaces and ventricles. There is no hydrocephalus or midline shift. There are no extra-axial fluid collections. The craniocervical junction is preserved. The major intracranial flow-voids appear patent. No abnormal enhancement. Mucosal thickening in the bilateral sphenoid sinuses, ethmoid air cells and maxillary sinuses. Trace left and small right mastoid air cell effusion.Intraorbital contents are unremarkable. No aggressive osseous or soft tissue lesions identified. MRA head: The left vertebral artery terminates in PICA. Multifocal atherosclerosis results in multifocal mild stenosis of the bilateral and two branches of the MCAs. No large vessel occlusion. There is no evidence of intracranial aneurysm. MRA Neck Narrowing of the proximal left internal carotid artery approximately 60% per NASCET criteria. The right carotid artery in the neck are patent including their bifurcations. The origins of the bilateral vertebral arteries are not well evaluated secondary to technique otherwise there is antegrade flow in the vertebral arteries in the neck. IMPRESSION: No evidence of acute infarct, hemorrhage, or hydrocephalus. Possible subtle diffuse cortical hyperintense FLAIR signal may be artifactual however hypoxic ischemic injury could have this appearance.Correlate clinically. No evidence for a major [place] proximal branch vessel occlusion. Intracranial atherosclerosis results in multifocal mild stenosis of the bilateral M2 segments of the middle cerebral arteries. 60% stenosis of the proximal left internal carotid artery by NASCET criteria No evidence of hemodynamically significant stenosis in the right cervical carotid or vertebral arteries by NASCET criteria. Signed: Ozzie Avila MD Report Verified Date/Time:09/03/2018 00:45:16 Reading Location: [address] Transitional Reading Room Procedure Note Interface, External Ris In - 09/03/2018 12:47 AM [employer] FINAL REPORT CLINICAL HISTORY: r/o ALS TECHNIQUE: MRI of the brain utilizing axial T2, FLAIR, GRE, DWI; sagittal and coronal T1-weighted images as well as postcontrast T1 weighted images. MRA of the head utilizing 3-D sdbn-js-mkyldq technique, with 3-D reconstructions. MRA of the neck utilizing 2-D and 3-D hlhd-ah-muuwwy technique, with 3-D reconstructions. COMPARISON: None MRI Brain without and with contrast Findings: Brain: There is no evidence of acute infarct or hemorrhage. Few bilateral T2 and FLAIR hyperintense white matter foci likely represent chronic white matter microvascular disease.. Ventricles are normal in size and configuration. Possible subtle diffuse cortical hyperintense FLAIR signal may be artifactual however hypoxic ischemic injury could have this appearance. No associated restricted diffusion. Generalized volume loss with commensurate enlargement of CSF spaces and ventricles. There is no hydrocephalus or midline shift. There are no extra-axial fluid collections. The craniocervical junction is preserved. The major intracranial flow-voids appear patent. No abnormal enhancement. Mucosal thickening in the bilateral sphenoid sinuses, ethmoid air cells and maxillary sinuses. Trace left and small right mastoid air cell effusion. Intraorbital contents are unremarkable. No aggressive osseous or soft tissue lesions identified. MRA head: The left vertebral artery terminates in PICA. Multifocal atherosclerosis results in multifocal mild stenosis of the bilateral and two branches of the MCAs. No large vessel occlusion. There is no evidence of intracranial aneurysm. MRA Neck Narrowing of the proximal left internal carotid artery approximately 60% per NASCET criteria. The right carotid artery in the neck are patent including their bifurcations. The origins of the bilateral vertebral arteries are not well evaluated secondary to technique otherwise there is antegrade flow in the vertebral arteries in the neck. IMPRESSION: No evidence of acute infarct, hemorrhage, or hydrocephalus. Possible subtle diffuse cortical hyperintense FLAIR signal may be artifactual however hypoxic ischemic injury could have this appearance. Correlate clinically. No evidence for a major [place] proximal branch vessel occlusion. Intracranial atherosclerosis results in multifocal mild stenosis of the bilateral M2 segments of the middle cerebral arteries. 60% stenosis of the proximal left internal carotid artery by NASCET criteria No evidence of hemodynamically significant stenosis in the right cervical carotid or vertebral arteries by NASCET criteria. Signed: Ozzie Avila MD Report Verified Date/Time: 09/03/2018 00:45:16 Reading Location: [address] Reading Room Performing Organization Address City/State/Zipcode Phone Number [employer] MRA head without IV contrast (09/02/2018 11:13 PM [employer]) Narrative Performed At FINAL REPORT [employer] RIS CLINICAL HISTORY: r/o ALS TECHNIQUE: MRI of the brain utilizing axial T2, FLAIR, GRE, DWI; sagittal and coronal T1-weighted images as well as postcontrast T1 weighted images. MRA of the head utilizing 3-D clqp-ts-bgihui technique, with 3-D reconstructions. MRA of the neck utilizing 2-D and 3-D pzyc-vc-uhiyqo technique, with 3-D reconstructions. COMPARISON: None MRI Brain without and with contrast Findings: Brain: There is no evidence of acute infarct or hemorrhage. Few bilateral T2 and FLAIR hyperintense white matter foci likely represent chronic white matter microvascular disease.. Ventricles are normal in size and configuration. Possible subtle diffuse cortical hyperintense FLAIR signal may be artifactual however hypoxic ischemic injury could have this appearance. No associated restricted diffusion. Generalized volume loss with commensurate enlargement of CSF spaces and ventricles. There is no hydrocephalus or midline shift. There are no extra-axial fluid collections. The craniocervical junction is preserved. The major intracranial flow-voids appear patent. No abnormal enhancement. Mucosal thickening in the bilateral sphenoid sinuses, ethmoid air cells and maxillary sinuses. Trace left and small right mastoid air cell effusion.Intraorbital contents are unremarkable. No aggressive osseous or soft tissue lesions identified. MRA head: The left vertebral artery terminates in PICA. Multifocal atherosclerosis results in multifocal mild stenosis of the bilateral and two branches of the MCAs. No large vessel occlusion. There is no evidence of intracranial aneurysm. MRA Neck Narrowing of the proximal left internal carotid artery approximately 60% per NASCET criteria. The right carotid artery in the neck are patent including their bifurcations. The origins of the bilateral vertebral arteries are not well evaluated secondary to technique otherwise there is antegrade flow in the vertebral arteries in the neck. IMPRESSION: No evidence of acute infarct, hemorrhage, or hydrocephalus. Possible subtle diffuse cortical hyperintense FLAIR signal may be artifactual however hypoxic ischemic injury could have this appearance.Correlate clinically. No evidence for a major [place] proximal branch vessel occlusion. Intracranial atherosclerosis results in multifocal mild stenosis of the bilateral M2 segments of the middle cerebral arteries. 60% stenosis of the proximal left internal carotid artery by NASCET criteria No evidence of hemodynamically significant stenosis in the right cervical carotid or vertebral arteries by NASCET criteria. Signed: Ozzie Avila MD Report Verified Date/Time:09/03/2018 00:45:16 Reading Location: [address] Transitional Reading Room Procedure Note Interface, External Ris In - 09/03/2018 12:47 AM [employer] FINAL REPORT CLINICAL HISTORY: r/o ALS TECHNIQUE: MRI of the brain utilizing axial T2, FLAIR, GRE, DWI; sagittal and coronal T1-weighted images as well as postcontrast T1 weighted images. MRA of the head utilizing 3-D liqt-id-zdixzk technique, with 3-D reconstructions. MRA of the neck utilizing 2-D and 3-D jbha-rc-rzvjwu technique, with 3-D reconstructions. COMPARISON: None MRI Brain without and with contrast Findings: Brain: There is no evidence of acute infarct or hemorrhage. Few bilateral T2 and FLAIR hyperintense white matter foci likely represent chronic white matter microvascular disease.. Ventricles are normal in size and configuration. Possible subtle diffuse cortical hyperintense FLAIR signal may be artifactual however hypoxic ischemic injury could have this appearance. No associated restricted diffusion. Generalized volume loss with commensurate enlargement of CSF spaces and ventricles. There is no hydrocephalus or midline shift. There are no extra-axial fluid collections. The craniocervical junction is preserved. The major intracranial flow-voids appear patent. No abnormal enhancement. Mucosal thickening in the bilateral sphenoid sinuses, ethmoid air cells and maxillary sinuses. Trace left and small right mastoid air cell effusion. Intraorbital contents are unremarkable. No aggressive osseous or soft tissue lesions identified. MRA head: The left vertebral artery terminates in PICA. Multifocal atherosclerosis results in multifocal mild stenosis of the bilateral and two branches of the MCAs. No large vessel occlusion. There is no evidence of intracranial aneurysm. MRA Neck Narrowing of the proximal left internal carotid artery approximately 60% per NASCET criteria. The right carotid artery in the neck are patent including their bifurcations. The origins of the bilateral vertebral arteries are not well evaluated secondary to technique otherwise there is antegrade flow in the vertebral arteries in the neck. IMPRESSION: No evidence of acute infarct, hemorrhage, or hydrocephalus. Possible subtle diffuse cortical hyperintense FLAIR signal may be artifactual however hypoxic ischemic injury could have this appearance. Correlate clinically. No evidence for a major [place] proximal branch vessel occlusion. Intracranial atherosclerosis results in multifocal mild stenosis of the bilateral M2 segments of the middle cerebral arteries. 60% stenosis of the proximal left internal carotid artery by NASCET criteria No evidence of hemodynamically significant stenosis in the right cervical carotid or vertebral arteries by NASCET criteria. Signed: Ozzie Avila MD Report Verified Date/Time: 09/03/2018 00:45:16 Reading Location: [address] Reading Room Performing Organization Address City/State/Zipcode Phone Number [employer] RIS POC ACTIVATED CLOTTING TIME (09/01/2018 3:07 PM CDT)Only the most recent of3 resultswithin the time period is included. Activated Clotting Time 142Comment: TESTED AT sec [address] [address] Specimen Blood Performing Organization Address City/[facility]/[place] [address] CENTER aPTT (09/01/2018 4:13 AM CDT)Only the most recent of8 resultswithin the time period is included. PTT 76.0 (H) 22.5 - 36.0 seconds [facility] Specimen Blood Performing Organization Address [facility]/[place] Phone Number [address] [address] [phone] [place] CBC (hemogram only) (09/01/2018 4:13 AM CDT)Only the most recent of3 resultswithin the time period is included. WBC 9.0 3.5 - 10.5 K/L [facility] RBC 4.10 (L) 4.63 - 6.08 M/L [facility] Hemoglobin 12.3 (L) 13.7 - 17.5 GM/DL [facility] Hematocrit 37.0 (L) 40.1 - 51.0 % [facility] MCV 90.2 79.0 - 92.2 fL [facility] MCH 30.0 25.7 - 32.2 pg [facility] MCHC 33.2 32.3 - 36.5 GM/DL [facility] RDW 13.7 11.6 - 14.4 % [facility] Platelets 207 150 - 450 K/CU MM [facility] MPV 9.6 9.4 - 12.4 fL [facility] nRBC 0 0 - 0 /100 WBC [facility] Specimen Blood Performing Organization Address City/[facility]/Zipcode Phone Number [address] [address] CENTER Vancomycin level, random (08/31/2018 12:15 PM CDT) Vancomycin Rm 7.8 ug/mL [facility] Specimen Blood - Central Venous Line Narrative Performed At Reference Range: No Normals [facility] Performing Organization Address [facility]/[employer] Phone Number [address] [address] [place] Body fluid cell count with differential (08/31/2018 11:55 AM CDT) Appearance Hazy (A) Clear [facility] Color Victor (A) Colorless, Straw [facility] RBCs 280 (H) <=1 /cu mm [facility] Adjusted WBC Count 139 (H) <=5 /cu mm [facility] Lining Cells 1 <=1 /cu mm [facility] % Segs 77 % [facility] % Lymphs 5 % [facility] % Monos 18 % [facility] % Eos 0 % [facility] % Baso 0 % [facility] Container Body Fluid EDTA Tube [facility] Specimen BAL - Lung, Right Middle Lobe Performing Organization Address City/[facility]/Zipcode Phone Number [address] [address] [phone] CENTER Cytology (08/31/2018 11:46 AM CDT) Case Report Medical Cytology Report Case: [id number] [facility] Authorizing Provider:Nannette Marie NP Collected: 08/31/2018 1146 [facility] Ordering Location: [place] [address] CCUReceived: 09/03/2018 0947 Pathologist: Shannon Norman Specimen:Lung, Right Middle Lobe DIAGNOSIS RIGHT MIDDLE LOBE LUNG, BAL (CYTOSPINS): [facility] - NEGATIVE FOR MALIGNANCY [facility] Signing Pathologist Direct Phone Line: [phone] CPT Code(s) 61046 [facility] CLINICAL DATA Atelectasis, Pneumonia [facility] SPECIMEN SOURCE RIGHT MIDDLE LOBE LUNG BAL [facility] GROSS DESCRIPTION Prepared 4 cytospins from 20 ml colorless fluid [facility] Collected: [id number] [facility] Received: [id number] STATEMENT OF ADEQUACY Satisfactory [facility] Gross assessment was [facility] performed at [place], Department of [facility] Pathology, [address] [place] [id number], Technical component was [facility] performed at [place], Department of [facility] Pathology, [address] [place] [address], Professional component was [facility] performed at [place], Department of [facility] Pathology, [address] [place] [address], Specimen BAL - Lung, Right Middle Lobe Narrative Performed At Performing Organization Address City/State/Zipcode Phone Number [address] [phone] [place] Bronchial culture + gram stain (08/31/2018 11:30 AM CDT) Result No growth [facility] Gram Stain Result No WBCsComment: This is an [facility] appended report. These results [facility] [place] have been appended to a previously preliminary verified report. Gram Stain Result No organisms seenComment: This [facility] is an appended report. These [facility] results have been appended to a previously preliminary verified report. Specimen BAL - Lung, Right Middle Lobe Performing Organization Address City/[facility]/Zipcode Phone Number [facility] [address] [place] [address] [phone] CENTER Fungus culture + smear (08/31/2018 11:30 AM CDT) Result [facility] (A) [facility] Fungus Smear No fungi seen [facility] Specimen BAL - Lung, Right Middle Lobe Performing Organization Address [facility]/Zipcode Phone Number [facility] [address] [place] [address] CENTER rESP PANEL (08/31/2018 10:10 AM CDT) Scan Result [facility] Specimen BAL Narrative Performed At Performing Organization Address City/[facility]/Zipcode Phone Number [facility] [address] [place], [place] ECHOCARDIOGRAM REPORT - SCAN (08/31/2018 8:50 AM CDT) Narrative Performed At 2D Echo W/Doppler(CW/PW/Color) (08/30/2018 6:20 PM CDT) Ejection Fraction [facility] Narrative Performed At Transthoracic Echocardiography Report (TTE) [facility] Demographics Patient Name Ian BURNETT of Study 08/30/2018 [id number] GenderMale Visit Number [id number] Unknown [id number] Room Number [address]13 Number Date of Birth1955Referring Physician Joseph Grover Age63 year(s)Pc Support Specialist Andrea Rivera InterpretingRaym lisa Saldaña, Physician Fellow Reilly Emanuel MD Procedure Type of Study TTE procedure:2DECHO W DOPPLER(CW/PW/COLOR) (STAT) Indications:Hypotension or hemodynamic instability. Clinical History HGB 13.1 HCT 37.6 % COPD, DM, HLD, HTN, OBESITY Contrast Medium: Definity. Amount - 7 ml Height: 63 inches Weight: 111.58 kg (246 lbs) BSA: 2.11 m^2 BMI: 43.58 kg/m^2 HR: 58 bpm BP: 121/61 mmHg Summary The LV endocardium is incompletely visualized despite definity contrast agent. All of the LV segments have low normal contractility . Estimated LVEF by qualitative assessment is lower limits of normal (50-55%) . No significant pericardial effusion is visualized. Technically limited exam. No significant valve disease detected. Signature Findings Rhythm/BPRegular sinus rhythm during the exam. Left Ventricle The LV endocardium is incompletely visualized de spite definity contrast agent. Al l of the LV segments have low normal co ntractility . Es timated LVEF by qualitative assessment is lower li mits of normal (50-55%) . Left AtriumLA is not well visualized. Right VentricleThe right ventricle is not well visualized. Appears no rmal in size by limited views. Right Atrium The right atrium is not well visualized. Atrial SeptumThe interatrial septum is not well visualized. Aortic Valve Normal AoV structure and function. Mitral Valve MV is not well visualized. No rmal MV structure and function by available views an d Doppler. Tricuspid ValveEstimated peak systolic PA pressure is cannot be de termined due to inadequate TR velocity signal . No rmal TV structure and function by available views an d Doppler. Pulmonic Valve Normal PV structure and function by limited views an d Doppler. AortaAortic root size (SInus of Valsalva diameter) is no rmal . PericardiumNo significant pericardial effusion is visualized. IVC/SVC/PA/PV/PleuralThe inferior vena cava size is indeterminate . Th e inferior vena cava is not well visualized. Chambers/Structures Left Ventricle LVIDd: 4.9 cm LVIDs: 3.99 cm LV Septum Diastolic: 1.07 cm LV PW Diastolic: 1.26 cm LV FS: 18.6 % Doppler/Quantitative Measurements Mitral Valve MV Peak E-Wave: 0.54 m/sMV Peak A-Wave: 0.43 m/s E/A Ratio: 1.25 Peak Gradient: 1.16 mmHg MV Mikey. Peak: Tissue Doppler E' Lateral Velocity: 0.12 m/s A' Lateral Velocity: 0.08 m/s E/E': 4.52 Aortic Valve Peak Velocity: 1.06 m/s Mean Velocity: 0.69 m/s Peak Gradient: 4.51 mmHgMean Gradient: 2.2 mmHg AV VTI: 19.63 cm AV DVI: 0.86 LVOT Peak Velocity: 0.94 m/s Peak Gradient: 3.53 mmHg Mean Velocity: 0.6 m/sMean Gradient: 1.74 mmHg LVOT VTI: 16.82 cm Procedure Note Interface, External Ris In - 08/31/2018 8:03 AM CDT Transthoracic Echocardiography Report (TTE) Demographics Patient Name GARRISON BURNETT Date of Study 08/30/2018 Gender Male Visit Number [id number] Race Unknown Room Number 6213 Number Date of 1955 Referring Physician Joseph Grover Age 63 year(s) Pc Support Specialist Andrea Rivera Interpreting Thang Saldaña, Physician Fellow Reilly Emanuel MD Procedure Type of Study TTE procedure:2DECHO W DOPPLER(CW/PW/COLOR) (STAT) Indications:Hypotension or hemodynamic instability. Clinical History HGB 13.1 HCT 37.6 % COPD, DM, HLD, HTN, OBESITY Contrast Medium: Definity. Amount - 7 ml Height: 63 inches Weight: 111.58 kg (246 lbs) BSA: 2.11 m^2 BMI: 43.58 kg/m^2 HR: 58 bpm BP: 121/61 mmHg Summary The LV endocardium is incompletely visualized despite definity contrast agent. All of the LV segments have low normal contractility . Estimated LVEF by qualitative assessment is lower limits of normal (50-55%) . No significant pericardial effusion is visualized. Technically limited exam. No significant valve disease detected. Signature Findings Rhythm/BP Regular sinus rhythm during the exam. Left Ventricle The LV endocardium is incompletely visualized despite definity contrast agent. All of the LV segments have low normal contractility . Estimated LVEF by qualitative assessment is lower limits of normal (50-55%) . Left Atrium LA is not well visualized. Right Ventricle The right ventricle is not well visualized. Appears normal in size by limited views. Right Atrium The right atrium is not well visualized. Atrial Septum The interatrial septum is not well visualized. Aortic Valve Normal AoV structure and function. Mitral Valve MV is not well visualized. Normal MV structure and function by available views and Doppler. Tricuspid Valve Estimated peak systolic PA pressure is cannot be determined due to inadequate TR velocity signal . Normal TV structure and function by available views and Doppler. Pulmonic Valve Normal PV structure and function by limited views and Doppler. Aorta Aortic root size (SInus of Valsalva diameter) is normal . Pericardium No significant pericardial effusion is visualized. IVC/SVC/PA/PV/Pleural The inferior vena cava size is indeterminate . The inferior vena cava is not well visualized. Chambers/Structures Left Ventricle LVIDd: 4.9 cm LVIDs: 3.99 cm LV Septum Diastolic: 1.07 cm LV PW Diastolic: 1.26 cm LV FS: 18.6 % Doppler/Quantitative Measurements Mitral Valve MV Peak E-Wave: 0.54 m/s MV Peak A-Wave: 0.43 m/s E/A Ratio: 1.25 Peak Gradient: 1.16 mmHg MV Mikey. Peak: Tissue Doppler E' Lateral Velocity: 0.12 m/s A' Lateral Velocity: 0.08 m/s E/E': 4.52 Aortic Valve Peak Velocity: 1.06 m/s Mean Velocity: 0.69 m/s Peak Gradient: 4.51 mmHg Mean Gradient: 2.2 mmHg AV VTI: 19.63 cm AV DVI: 0.86 LVOT Peak Velocity: 0.94 m/s Peak Gradient: 3.53 mmHg Mean Velocity: 0.6 m/s Mean Gradient: 1.74 mmHg LVOT VTI: 16.82 cm Performing Organization Address City/State/Zipcode Phone Number [facility] (V/Q) (08/30/2018 2:45 PM CDT) Narrative Performed At FINAL REPORT [facility] PROCEDURE: V/Q LUNG SCAN CPT CODE:43443 INDICATION:Chest pain PA suspected high pretest probability with JORGE PROTOCOL:10.2 mCi ofXe-133 gas was administered by inhalation. Rebreathing/washout images were obtained in the anterior and the posterior projections.4.2 mCi of Tc-99m MAA was then injected intravenously, and static perfusion images were obtained in multiple projections. FINDINGS: Ventilation: Initial tracer distribution shows a widened mediastinum and decreased irregular right lung activity. Washout proceeds normally. Perfusion:Tracer distribution matches. IMPRESSION: 1. Low probability of acute pulmonary embolization. 2. The findings are suggestive of parenchymal lung disease.. Signed: Elmo Carvalho MD Report Verified Date/Time:08/30/2018 17:23:41 Reading Location: [address] Reading Room Procedure Note Interface, External Ris In - 08/30/2018 5:25 PM CDT FINAL REPORT PROCEDURE: V/Q LUNG SCAN CPT CODE: [id number] INDICATION: Chest pain PA suspected high pretest probability with JORGE PROTOCOL: 10.2 mCi of Xe-133 gas was administered by inhalation. Rebreathing/washout images were obtained in the anterior and the posterior projections. 4.2 mCi of Tc-99m MAA was then injected intravenously, and static perfusion images were obtained in multiple projections. FINDINGS: Ventilation: Initial tracer distribution shows a widened mediastinum and decreased irregular right lung activity. Washout proceeds normally. Perfusion: Tracer distribution matches. IMPRESSION: 1. Low probability of acute pulmonary embolization. 2. The findings are suggestive of parenchymal lung disease.. Signed: Elmo Carvalho MD Report Verified Date/Time: 08/30/2018 17:23:41 Reading Location: [address] [address] Reading Room Performing Organization Address City/State/Zipcode Phone Number GE RIS CT chest without IV contrast (08/30/2018 2:44 PM CDT) Narrative Performed At FINAL REPORT [employer] HISTORY: Acute resp illness, >40yo COMPARISON : None Technique : Multiple axial images of the chest were performed from the lung apices to the lung bases without the administration of IV contrast. Images were presented in both the lung and soft tissue windows. This exam was performed according to our departmental dose optimization program which includes automated exposure control, adjustment of the mA and/or kV according to patient size and/or use of iterative reconstructive technique. Comment: The thyroid gland is within normal limits. Endotracheal and nasogastric tubes are in place. There is atherosclerotic vascular disease with coronary atherosclerosis. The patient does have cardiomegaly. The patient is status post cholecystectomy. There is no hilar, mediastinal or axillary lymphadenopathy. The visualized portions of the liver, spleen, adrenal glands, pancreas, and kidneys are within normal limits. Multilevel degenerative disc changes of the visualized thoracolumbar spine are seen. There are some old right-sided rib fractures. No pneumothorax or pleural effusion is seen. There are bibasilar consolidations that may represent atelectasis. Pneumonitis or aspiration cannot be excluded. There also appears to be complete atelectasis/collapse of the right upper lobe. A central obstructing mass or mucous plug cannot be excluded. Underlying pneumonitis cannot be excluded. Bronchoscopy may be considered. Some minimal patchy airspace disease is seen in the right middle lobe that could represent atelectasis. Pneumonitis or aspiration cannot be excluded. Impression: 1. Bibasilar consolidation suggestive of partial atelectasis/collapse of the bilateral lower lobes. 2. Suspected complete atelectasis/collapse of the right upper lobe. A central obstructing mass or mucous plug cannot be excluded. Bronchoscopy may be considered. 3. Minimal patchy airspace disease in the right middle lobe. Findings could represent atelectasis, pneumonitis or aspiration. 4. Cardiomegaly. Signed: Bryon Sainz MD Report Verified Date/Time:08/30/2018 15:10:22 Reading Location: [facility] Diagnostic Imaging Reading Room - [place] [address] Procedure Note Interface, External Ris In - 08/30/2018 3:12 PM CDT FINAL REPORT HISTORY: Acute resp illness, >40yo COMPARISON : None Technique : Multiple axial images of the chest were performed from the lung apices to the lung bases without the administration of IV contrast. Images were presented in both the lung and soft tissue windows. This exam was performed according to our departmental dose optimization program which includes automated exposure control, adjustment of the mA and/or kV according to patient size and/or use of iterative reconstructive technique. Comment: The thyroid gland is within normal limits. Endotracheal and nasogastric tubes are in place. There is atherosclerotic vascular disease with coronary atherosclerosis. The patient does have cardiomegaly. The patient is status post cholecystectomy. There is no hilar, mediastinal or axillary lymphadenopathy. The visualized portions of the liver, spleen, adrenal glands, pancreas, and kidneys are within normal limits. Multilevel degenerative disc changes of the visualized thoracolumbar spine are seen. There are some old right-sided rib fractures. No pneumothorax or pleural effusion is seen. There are bibasilar consolidations that may represent atelectasis. Pneumonitis or aspiration cannot be excluded. There also appears to be complete atelectasis/collapse of the right upper lobe. A central obstructing mass or mucous plug cannot be excluded. Underlying pneumonitis cannot be excluded. Bronchoscopy may be considered. Some minimal patchy airspace disease is seen in the right middle lobe that could represent atelectasis. Pneumonitis or aspiration cannot be excluded. Impression: 1. Bibasilar consolidation suggestive of partial atelectasis/collapse of the bilateral lower lobes. 2. Suspected complete atelectasis/collapse of the right upper lobe. A central obstructing mass or mucous plug cannot be excluded. Bronchoscopy may be considered. 3. Minimal patchy airspace disease in the right middle lobe. Findings could represent atelectasis, pneumonitis or aspiration. 4. Cardiomegaly. Signed: Bryon Sainz MD Report Verified Date/Time: 08/30/2018 15:10:22 Reading Location: [facility] Diagnostic Imaging Reading Room - [place] [id number] Performing Organization Address City/[facility]/[place] Phone Number GE RIS Sputum Culture + Gram Stain (08/30/2018 10:17 AM CDT) Result METHICILLIN RESISTANT [facility] STAPHYLOCOCCUS AUREUS (A) [facility]ICAL [place] Gram Stain Result 4+ WBCs [facility] Gram Stain Result 0-5 epithelial cells [facility] Gram Stain Result 1+ gram positive cocci in pairs [facility] and [facility] Gram Stain Result 1+ yeast [facility] Specimen Sputum - Endotracheal Narrative Performed At <1+ Normal respiratory davie present [facility] Organism Antibiotic Method Susceptibility Methicillin resistant Clindamycin 0.25: Susceptible Staphylococcus aureus Methicillin resistant Erythromycin >=8: Resistant Staphylococcus aureus Methicillin resistant Linezolid 2: Susceptible Staphylococcus aureus Methicillin resistant Oxacillin >=4: Resistant Staphylococcus aureus Methicillin resistant Rifampin <=0.5: Susceptible Staphylococcus aureus Methicillin resistant Tetracycline <=1: Susceptible Staphylococcus aureus Methicillin resistant Trimethoprim + <=10: Susceptible Staphylococcus aureus Sulfamethoxazole Methicillin resistant Vancomycin <=0.5: Susceptible Staphylococcus aureus Performing Organization Address City/[facility] Phone Number [facility] [address] [place] [phone] CENTER MRSA screen (08/30/2018 10:17 AM CDT) Result METHICILLIN RESISTANT [facility] STAPHYLOCOCCUS AUREUS (A) [facility] Specimen Nasal - Endotracheal Organism Antibiotic Method Susceptibility Methicillin resistant Clindamycin 0.25: Susceptible Staphylococcus aureus Methicillin resistant Erythromycin >=8: Resistant Staphylococcus aureus Methicillin resistant Linezolid 2: Susceptible Staphylococcus aureus Methicillin resistant Oxacillin >=4: Resistant Staphylococcus aureus Methicillin resistant Rifampin <=0.5: Susceptible Staphylococcus aureus Methicillin resistant Tetracycline <=1: Susceptible Staphylococcus aureus Methicillin resistant Trimethoprim + <=10: Susceptible Staphylococcus aureus Sulfamethoxazole Methicillin resistant Vancomycin 1: Susceptible Staphylococcus aureus Performing Organization Address City/State/[place] Phone Number [address] [address] CENTER Oxygen saturation, measured (08/30/2018 8:33 AM CDT) O2 Saturation (Measured) 74.7 % [facility] Specimen Blood Performing Organization Address [facility]/[place] Phone Number [address] [address] CENTER Lactic acid, arterial, whole blood (08/30/2018 8:33 AM CDT)Only the most recent of2 resultswithin the time period is included. Lactate, Art 1.6 0.5 - 2.2 mmol/L [facility] Specimen Blood, Arterial Narrative Performed At Effective 03/02/2016: Units/Reference Range [facility] Change New: 0.5-2.2 mmol/LPrevious: 5-20 mg/dL Performing Organization Address [facility]/[place] Phone Number [address] [address] [place] Urinalysis w/Microscopic + Reflex to Culture (08/30/2018 4:07 AM CDT) Color, UA Light Yellow [facility] Clarity, UA Clear [facility] Specific [place], UA 1.017 1.001 - 1.035 [facility] pH, UA 5.0 5.0 - 8.0 [facility] Protein, UA Negative Negative [facility] Glucose, UA >1000 mg/dL (A) Negative [facility] Ketones, UA 10 mg/dL (A) Negative [facility] Bilirubin, UA Negative Negative [facility] Blood, UA Negative Negative [facility] Nitrite, UA Negative Negative [facility] Leukocytes, UA Negative Negative [facility] Urobilinogen, UA 0.2 0.2 - 1.0 mg/dL [facility] RBC, UA 3 /HPF [facility] WBC, UA 2 /HPF [facility] Mucus Rare [facility] Amorphous Crystals Rare [facility] Specimen Source [facility] Specimen Urine - Urine, Burroughs Performing Organization Address City/[facility]/[place] Phone Number [address] [address] CENTER Platelet count (08/30/2018 3:32 AM CDT)Only the most recent of2 resultswithin the time period is included. Platelets 284 150 - 450 K/CU MM [facility] Specimen Blood Narrative Performed At Baseline and daily starting prior to [facility] initiation of heparin infusion Performing Organization Address City/[facility]/[place] Phone Number [address] [address] [phone] CENTER Potassium-STAT (08/30/2018 3:32 AM CDT) Potassium 4.3 3.5 - 5.1 meq/L [facility] Specimen Blood Performing Organization Address City/[facility]/[place] Phone Number [address] [address] [phone] CENTER Glucose-STAT (08/30/2018 3:32 AM CDT) Glucose 365 (H) 70 - 105 mg/dL [facility] Specimen Blood Performing Organization Address [facility]/[place] Phone Number [address] [address] CENTER Procalcitonin (08/30/2018 1:46 AM CDT) Procalcitonin 0.26 (H) <0.05 ng/mL [facility] Specimen Blood - Central Venous Line Narrative Performed At SEPSIS RISK (ng/mL) [facility] Low:0.05-0.50 Intermediate: 0.51-2.00 High: >=2.01 Performing Organization Address [facility] Phone Number [address] [address] [place] Lactic acid, venous, whole blood (08/30/2018 1:46 AM CDT) Lactate, Venous 2.8 (H)Comment: Specimen 0.5 - 2.2 mmol/L [facility] slightly hemolyzed [facility] Specimen Blood - Central Venous Line Narrative Performed At Effective 03/02/2016: Units/Reference Range [facility] Change New: 0.5-2.2 mmol/LPrevious: 5-20 mg/dL Performing Organization Address [facility] Phone Number [address] [address] [place] Toxicology screen, serum (08/30/2018 1:46 AM CDT) DRUG TEST, GENERAL see note [facility], Comment: [facility] URINE,[facility] The following compounds were detected: Acetaminophen Gabapentin Caffeine Lidocaine Norketamine (Ketamine Metabolite) Ketamine Salicylic Acid For a list of compounds and limits of detection go to: http://education.[employer]/faq/VLE976 This test was developed and its analytical performance characteristics have been determined by [employer] [place], [place]. It has not been cleared or approved by the U.S. Food and Drug Administration. This assay has been validated pursuant to the CLIA regulations and is used for clinical purposes. ACETONE ([facility]) None Detected [facility] METHANOL([facility]) None Detected [facility] Isopropanol([facility]) None Detected [facility] ETHANOL None Detected [facility] Comment: INC[facility]PORATED Volatile Limit of Detection: 5 mg/dL Specimen Blood - Central Venous Line Narrative Performed At Performing Lab [facility] [address] [facility], [address] [place] Mario Arreola MD, PhD Performing Organization Address City/State/Zipcode Phone Number [facility], [place] [address] INCORPORATED [address] [facility] after 02/04/2018 Insurance Payer Benefit Plan / Group Subscriber ID Type Phone Address [facility] - MEDICARE AARP/MEDICARE COMPLETE xxxxxxxxx [facility]GD CARE Advance Directives Patient has advance care planning documents, and code status on file. For more information, please contact:[address] [phone] Code Status Date Activated Date Inactivated Comments Full Code 10/04/2018 2:12 PM This code status was determined by: Patient Full Code 08/30/2018 1:09 AM 10/04/2018 11:42 AM This code status was determined by: Patient
--- OUTSIDE RECORDS SUMMARY | 2019-02-05 12:07 | XMS REPORT ---
:1955 [facility] Address [address] [place] [address] [address] [place] [address] Care Team Providers Name Role Phone MARK BANERJEE Unavailable Unavailable POOJALORIE SMALL Nafisa Unavailable Unavailable Problems This patient has no known problems. Allergies, Adverse Reactions, Alerts This patient has no known allergies or adverse reactions. Medications This patient has no known medications. Results Test Description Test Time Test Comments Text Results Atomic Results Result Comments BLOOD CULTURE 2018-10-10 05:01:00 Test Item Value Reference Range Comments CULTURE (BEAKER) (test ttwe=0462) No growth in 5 days BLOOD [id number] 05:01:00 Test Item Value Reference Range Comments CULTURE (BEAKER) (test opoq=9571) No growth in 5 days URINE [id number] 17:30:00 Test Item Value Reference Range Comments CULTURE (BEAKER) (test hacs=6537) No growth POCT-GLUCOSE [id number] 12:44:00 Test Item Value Reference Range Comments POC-GLUCOSE METER (BEAKER) 243 mg/dL 70-110 TESTED AT [address] (test wrbz=8712) [facility] [address] VANCOMYCIN LEVEL, [id number] 09:18:00 Test Item Value Reference Range Comments VANCOMYCIN TROUGH (BEAKER) (test xtdu=471) 12.8 ug/mL 10.0-20.0 Please draw vancomycin trough level. If level greater than 20 mcg/mL, please hold 900 dose.POCT-GLUCOSE [id number] 08:07:00 Test Item Value Reference Range Comments POC-GLUCOSE METER (BEAKER) 225 mg/dL 70-110 TESTED AT [facility] [address] [facility] (test hegh=5746) [facility] [address] POCT-GLUCOSE [id number] 21:42:00 Test Item Value Reference Range Comments POC-GLUCOSE METER (BEAKER) 304 mg/dL 70-110 TESTED AT [facility] [address] [facility] (test cmmw=7756) [place] [id number] POCT-GLUCOSE [id number] 18:30:00 Test Item Value Reference Range Comments POC-GLUCOSE METER (BEAKER) 259 mg/dL 70-110 TESTED AT [address] (test lsmv=9817) [place] [id number] POCT-GLUCOSE [id number] 14:03:00 Test Item Value Reference Range Comments POC-GLUCOSE METER (BEAKER) 297 mg/dL 70-110 TESTED AT [address] (test zyan=8921) [place] [id number] RESPIRATORY PANEL [id number] 12:24:00 Test Item Value Reference Range Comments HUMAN METAPNEUMOVIRUS (BEAKER) (test Not detected Not detected, Equivocal txon=5334) RHINOVIRUS (BEAKER) (test slwk=9902) Not detected Not detected, Equivocal INFLUENZA A (BEAKER) (test xjgh=3603) Not detected Not detected, Equivocal INFLUENZA A (NO SUBTYPE) (test Not detected, Equivocal gfon=5401) INFLUENZA A SUBTYPE H1 (BEAKER) (test Not detected, Equivocal ndjc=3779) INFLUENZA A SUBTYPE H3 (BEAKER) (test Not detected, Equivocal uhmh=1485) INFLUENZA A SUBTYPE H1-2009 (BEAKER) Not detected, Equivocal (test rpui=9554) INFLUENZA B (BEAKER) (test dxdz=6779) Not detected Not detected, Equivocal RESPIRATORY SYNCYTIAL VIRUS (BEAKER) Not detected Not detected, Equivocal (test psup=5367) PARAINFLUENZA VIRUS 1 (BEAKER) (test Not detected Not detected, Equivocal uvud=3988) PARAINFLUENZA VIRUS 2 (BEAKER) (test Not detected Not detected, Equivocal vjje=2462) PARAINFLUENZA VIRUS 3 (BEAKER) (test Not detected Not detected, Equivocal ktdz=3999) PARAINFLUENZA VIRUS 4 (BEAKER) (test Not detected Not detected, Equivocal hsrp=0698) ADENOVIRUS (BEAKER) (test dzrs=7612) Not detected Not detected, Equivocal CORONAVIRUS 229E (BEAKER) (test Not detected Not detected, Equivocal kxzf=6173) CORONAVIRUS HKU1 (BEAKER) (test Not detected Not detected, Equivocal ynqy=1511) CORONAVIRUS NL63 (BEAKER) (test Not detected Not detected, Equivocal zfvk=7056) CORONAVIRUS OC43 (BEAKER) (test Not detected Not detected, Equivocal fjri=7835) BORDETELLA PERTUSSIS (BEAKER) (test Not detected Not detected, Equivocal rium=3391) CHLAMYDOPHILA PNEUMONIAE (BEAKER) (test Not detected Not detected, Equivocal tzjo=3567) MYCOPLASMA PNEUMONIAE (BEAKER) (test Not detected Not detected, Equivocal lkds=4725) Other viruses and bacteria not targeted by this PCR panel cannot be excluded; therefore clinical correlation and follow up of serology, culture results, and other molecular studies is required. The results are not intended to be used as the sole means for clinical diagnosis or patient management decisions. This sample was tested at the [facility] using the Auto I.D. Respiratory Panel. It is FDA cleared and has been verified and approved by the [facility] for clinical use on nasal swab specimens. It is not FDA-cleared for use on bronchial wash/lavage samples. However, for this sample type, validation was performed and test characteristics were determined and approved, by [facility] for clinical use under the Clinical Laboratory Improvement Amendments (CLIA) of 1988 requirements. Therefore, FDA clearance isnot required. This laboratory is CLIA-certified and [employer] (CAP)-accredited to perform high complexity testing.POCT-GLUCOSE [id number] 07:58:00 Test Item Value Reference Range Comments POC-GLUCOSE METER (BEAKER) 209 mg/dL 70-110 TESTED AT [facility] [address] (test lmlo=6600) [facility] [address] RAD, CHEST, 1 VIEW, NON [id number] 07:32:00Reason for exam:->interval change in interstitial patternShould this be performed at the bedside?-> YesFINAL REPORT Chest one view. Clinical history: interval change in interstitial pattern Comparison: October 04, 2018 Discussion : A frontal chest is provided. Cardiomediastinal contours are unchanged. There is mild atelectasis or scarring at the right lung base. Left lung is grossly clear. No julisa pulmonary edema, pneumothorax, or significant effusion. Signed: Galen Pride Verified Date/Time: 10/05/2018 07:32:16 [facility] BASIC METABOLIC [id number] 06:37:00 Test Item Value Reference Range Comments SODIUM (BEAKER) (test 140 meq/L 136-145 rnri=607) POTASSIUM (BEAKER) (test 3.2 meq/L 3.5-5.1 qnlg=989) CHLORIDE (BEAKER) (test 105 meq/L 98-107 kdwk=587) CO2 (BEAKER) (test 28 meq/L 22-29 qcog=471) BLOOD UREA NITROGEN 15 mg/dL 7-21 (BEAKER) (test utnp=029) CREATININE (BEAKER) (test 0.74 mg/dL 0.57-1.25 exzx=300) GLUCOSE RANDOM (BEAKER) 191 mg/dL 70-105 (test gagd=358) CALCIUM (BEAKER) (test 9.1 mg/dL 8.4-10.2 kywm=295) EGFR (BEAKER) (test 106 mL/min/1.73 sq m ESTIMATED GFR IS NOT pnbc=9878) ACCURATE CREATININE CLEARANCE IN PREDICTING GLOMERULAR FILTRATION RATE. ESTIMATED GFR IS NOT APPLICABLE FOR DIALYSIS PATIENTS. TROPONIN [id number] 06:35:00 Test Item Value Reference Range Comments TROPONIN I (BEAKER) (test xnpp=874) 0.02 ng/mL 0.00-0.03 Troponin I (TnI) levels must be interpreted in the context of the presenting symptoms and the clinical findings. Elevated TnI levels indicate myocardial damage, but are not specific for ischemic heart disease. Elevated TnI levels are seen in patients with other cardiac conditions (including myocarditis and congestive heart failure), and slight TnI elevations occur in patients with other conditions, including sepsis, renal failure, acidosis, acute neurological disease, and persistent tachyarrhythmia.CBC W/PLT COUNT & AUTO [id number] 06:17:00 Test Item Value Reference Range Comments WHITE BLOOD CELL COUNT (BEAKER) (test undy=388) 6.3 K/ L 3.5-10.5 RED BLOOD CELL COUNT (BEAKER) (test bggp=775) 4.43 M/ L 4.63-6.08 HEMOGLOBIN (BEAKER) (test jcdb=667) 13.6 GM/DL 13.7-17.5 HEMATOCRIT (BEAKER) (test hioa=065) 39.8 % 40.1-51.0 MEAN CORPUSCULAR VOLUME (BEAKER) (test asrz=596) 89.8 fL 79.0-92.2 MEAN CORPUSCULAR HEMOGLOBIN (BEAKER) (test 30.7 pg 25.7-32.2 aocg=218) MEAN CORPUSCULAR HEMOGLOBIN CONC (BEAKER) (test 34.2 GM/DL 32.3-36.5 rktl=359) RED CELL DISTRIBUTION WIDTH (BEAKER) (test 13.1 % 11.6-14.4 pyfr=935) PLATELET COUNT (BEAKER) (test nvuz=367) 200 K/CU MM 150-450 MEAN PLATELET VOLUME (BEAKER) (test ynpn=256) 9.5 fL 9.4-12.4 NUCLEATED RED BLOOD CELLS (BEAKER) (test 0 /100 WBC 0-0 yhrx=131) NEUTROPHILS RELATIVE PERCENT (BEAKER) (test 65 % ljee=932) LYMPHOCYTES RELATIVE PERCENT (BEAKER) (test 24 % hpqo=819) MONOCYTES RELATIVE PERCENT (BEAKER) (test 8 % thcm=589) EOSINOPHILS RELATIVE PERCENT (BEAKER) (test 2 % lytf=754) BASOPHILS RELATIVE PERCENT (BEAKER) (test 1 % anoy=214) NEUTROPHILS ABSOLUTE COUNT (BEAKER) (test 4.12 K/ L 1.78-5.38 cmdf=444) LYMPHOCYTES ABSOLUTE COUNT (BEAKER) (test 1.51 K/ L 1.32-3.57 xsmg=906) MONOCYTES ABSOLUTE COUNT (BEAKER) (test 0.50 K/ L 0.30-0.82 mebs=028) EOSINOPHILS ABSOLUTE COUNT (BEAKER) (test 0.15 K/ L 0.04-0.54 suhn=566) BASOPHILS ABSOLUTE COUNT (BEAKER) (test 0.03 K/ L 0.01-0.08 fxfo=594) IMMATURE GRANULOCYTES-RELATIVE PERCENT (BEAKER) 1 % 0-1 (test byes=3455) POCT-GLUCOSE [id number] 23:02:00 Test Item Value Reference Range Comments POC-GLUCOSE METER (BEAKER) 305 mg/dL 70-110 TESTED AT [facility] [address] [facility] (test ptdo=9833) [facility] [address] TROPONIN [id number] 22:20:00 Test Item Value Reference Range Comments TROPONIN I (BEAKER) (test pykn=734) 0.03 ng/mL 0.00-0.03 Troponin I (TnI) levels must be interpreted in the context of the presenting symptoms and the clinical findings. Elevated TnI levels indicate myocardial damage, but are not specific for ischemic heart disease. Elevated TnI levels are seen in patients with other cardiac conditions (including myocarditis and congestive heart failure), and slight TnI elevations occur in patients with other conditions, including sepsis, renal failure, acidosis, acute neurological disease, and persistent tachyarrhythmia.VITAMIN [id number] 18:10:00 Test Item Value Reference Range Comments VITAMIN B12 (BEAKER) (test xosl=171) 596 pg/mL 213-816 TSH/FREE T4 IF [id number] 18:10:00 Test Item Value Reference Range Comments THYROID STIMULATING HORMONE (BEAKER) (test 0.64 uIU/mL 0.35-4.94 fvzi=397) POCT-GLUCOSE [id number] 17:15:00 Test Item Value Reference Range Comments POC-GLUCOSE METER ([employer]) 178 mg/dL 70-110 TESTED AT [facility] [address] [facility] (test cgvn=8847) [facility] [address] CT, BRAIN, WITHOUT [id number] 17:08:00FINAL REPORT CT head without contrast 10/04/2018 4:57 PM CLINICAL HISTORY: Confusion/ delirium, altered LOC, unexplained TECHNIQUE: Axial noncontrast CT [...] with MRI is recommended. Signed: Sergio Rivas Verified Date/Time: 10/04/2018 17:08:17 [facility] BLOOD GAS, [id number] 16:32:00 Test Item Value Reference Range Comments PH ARTERIAL (BEAKER) (test srby=374) 7.39 7.35-7.45 PCO2 ARTERIAL (BEAKER) (test ogyu=323) 46 mmHg 35-45 PO2 ARTERIAL (BEAKER) (test ljhj=065) 71 mmHg 80-90 O2 SATURATION ARTERIAL (BEAKER) (test ligc=296) 94.1 % 96.0-97.0 HCO3 ARTERIAL (BEAKER) (test ptji=322) 27 mmol/L 21-29 BASE EXCESS ARTERIAL (BEAKER) (test walm=948) 1.5 mmol/L -2.0-3.0 PATIENT TEMPERATURE (BEAKER) (test aise=9731) 37.0 C FIO2 (BEAKER) (test ruol=1695) 36.0 % RAPID INFLUENZA A&B [id number] 16:22:00 Test Item Value Reference Range Comments RAPID INFLUENZA A AG (BEAKER) (test Negative Negative, Inconclusive mzcc=4162) RAPID INFLUENZA B AG (BEAKER) (test Negative Negative, Inconclusive rzge=3091) B-TYPE NATRIURETIC FACTOR (BNP)2018-10-04 13:22:00 Test Item Value Reference Range Comments B-TYPE NATRIURETIC PEPTIDE (BEAKER) (test xecd=500) 23 pg/mL 0-100 TROPONIN [id number] 13:21:00 Test Item Value Reference Range Comments TROPONIN I (BEAKER) (test apaf=814) 0.04 ng/mL 0.00-0.03 Troponin I (TnI) levels must be interpreted in the context of the presenting symptoms and the clinical findings. Elevated TnI levels indicate myocardial damage, but are not specific for ischemic heart disease. Elevated TnI levels are seen in patients with other cardiac conditions (including myocarditis and congestive heart failure), and slight TnI elevations occur in patients with other conditions, including sepsis, renal failure, acidosis, acute neurological disease, and persistent tachyarrhythmia.[id number] 13:12:00 Test Item Value Reference Range Comments MAGNESIUM (BEAKER) (test urfe=454) 1.1 mg/dL 1.6-2.6 BASIC METABOLIC [id number] 13:12:00 Test Item Value Reference Range Comments SODIUM (BEAKER) (test 140 meq/L 136-145 ukdl=380) POTASSIUM (BEAKER) (test 3.7 meq/L 3.5-5.1 rtcb=835) CHLORIDE (BEAKER) (test 105 meq/L 98-107 anll=397) CO2 (BEAKER) (test 25 meq/L 22-29 vvri=622) BLOOD UREA NITROGEN 24 mg/dL 7-21 (BEAKER) (test jqwe=880) CREATININE (BEAKER) (test 0.90 mg/dL 0.57-1.25 flug=901) GLUCOSE RANDOM (BEAKER) 167 mg/dL 70-105 (test mtec=625) CALCIUM (BEAKER) (test 9.1 mg/dL 8.4-10.2 ctun=573) EGFR (BEAKER) (test 85 mL/min/1.73 sq m ESTIMATED GFR IS NOT xxcc=7637) ACCURATE CREATININE CLEARANCE IN PREDICTING GLOMERULAR FILTRATION RATE. ESTIMATED GFR IS NOT APPLICABLE FOR DIALYSIS PATIENTS. CBC W/PLT COUNT & AUTO [id number] 12:40:00 Test Item Value Reference Range Comments WHITE BLOOD CELL COUNT (BEAKER) (test pokv=562) 9.5 K/ L 3.5-10.5 RED BLOOD CELL COUNT (BEAKER) (test twle=455) 4.57 M/ L 4.63-6.08 HEMOGLOBIN (BEAKER) (test srdp=843) 13.8 GM/DL 13.7-17.5 HEMATOCRIT (BEAKER) (test umpv=866) 40.8 % 40.1-51.0 MEAN CORPUSCULAR VOLUME (BEAKER) (test jvwu=205) 89.3 fL 79.0-92.2 MEAN CORPUSCULAR HEMOGLOBIN (BEAKER) (test 30.2 pg 25.7-32.2 eahd=186) MEAN CORPUSCULAR HEMOGLOBIN CONC (BEAKER) (test 33.8 GM/DL 32.3-36.5 tuxx=788) RED CELL DISTRIBUTION WIDTH (BEAKER) (test 13.2 % 11.6-14.4 qeki=053) PLATELET COUNT (BEAKER) (test xodi=090) 229 K/CU MM 150-450 MEAN PLATELET VOLUME (BEAKER) (test hdlj=464) 9.6 fL 9.4-12.4 NUCLEATED RED BLOOD CELLS (BEAKER) (test 0 /100 WBC 0-0 orfc=551) NEUTROPHILS RELATIVE PERCENT (BEAKER) (test 64 % crry=211) LYMPHOCYTES RELATIVE PERCENT (BEAKER) (test 26 % gcvg=048) MONOCYTES RELATIVE PERCENT (BEAKER) (test 8 % itnc=422) EOSINOPHILS RELATIVE PERCENT (BEAKER) (test 2 % bady=016) BASOPHILS RELATIVE PERCENT (BEAKER) (test 1 % qgrw=007) NEUTROPHILS ABSOLUTE COUNT (BEAKER) (test 6.05 K/ L 1.78-5.38 oegl=698) LYMPHOCYTES ABSOLUTE COUNT (BEAKER) (test 2.48 K/ L 1.32-3.57 lvfk=815) MONOCYTES ABSOLUTE COUNT (BEAKER) (test 0.73 K/ L 0.30-0.82 tycw=128) EOSINOPHILS ABSOLUTE COUNT (BEAKER) (test 0.14 K/ L 0.04-0.54 wejn=243) BASOPHILS ABSOLUTE COUNT (BEAKER) (test 0.05 K/ L 0.01-0.08 lqcv=588) IMMATURE GRANULOCYTES-RELATIVE PERCENT (BEAKER) 1 % 0-1 (test tqlj=7392) RAD, CHEST, 1 VIEW, NON [id number] 12:31:00Reason for exam:->chest painFINAL REPORT Chest one view. Clinical history: chest pain Comparison: September 07, 2018 Discussion: A frontal chest is provided. Cardiomediastinal contours are unchanged. There is mild bibasilar atelectasis, right greater than left. No new consolidation identified. No julisa pulmonary edema, pneumothorax, or significant effusion. Osseous structures demonstrate mild degenerative changes. Signed: Galen Prideort Verified Date/Time: 10/04/2018 12:31:58 Reading Location: [facility] Reading Room FUNGUS CULTURE + [id number] 16:07:00 Test Item Value Reference Range Comments CULTURE (BEAKER) (test zimk=1936) <1+ Lauren albicans FUNGUS SMEAR (BEAKER) (test No fungi seen mhte=8869) POCT-GLUCOSE [id number] 12:22:00 Test Item Value Reference Range Comments POC-GLUCOSE METER (BEAKER) 171 mg/dL 70-110 TESTED AT [address] (test idfa=4094) [facility] [address] POCT-GLUCOSE [id number] 08:28:00 Test Item Value Reference Range Comments POC-GLUCOSE METER (BEAKER) 212 mg/dL 70-110 TESTED AT [address] (test mjbs=6542) [facility] [address] POCT-GLUCOSE [id number] 21:23:00 Test Item Value Reference Range Comments POC-GLUCOSE METER (BEAKER) 266 mg/dL 70-110 TESTED AT [address] (test apnw=6485) [facility] [address] POCT-GLUCOSE [id number] 17:14:00 Test Item Value Reference Range Comments POC-GLUCOSE METER (BEAKER) 207 mg/dL 70-110 TESTED AT [address] (test wixv=4610) [facility] [address] POCT-GLUCOSE [id number] 11:43:00 Test Item Value Reference Range Comments POC-GLUCOSE METER (BEAKER) 182 mg/dL 70-110 TESTED AT [address] (test emdk=3753) [facility] [address] POCT-GLUCOSE [id number] 06:58:00 Test Item Value Reference Range Comments POC-GLUCOSE METER (BEAKER) 186 mg/dL 70-110 TESTED AT [address] (test hqen=1919) [facility] [address] POCT-GLUCOSE [id number] 21:22:00 Test Item Value Reference Range Comments POC-GLUCOSE METER (BEAKER) 230 mg/dL 70-110 TESTED AT [address] (test yikp=6095) [facility] [address] POCT-GLUCOSE [id number] 16:28:00 Test Item Value Reference Range Comments POC-GLUCOSE METER (BEAKER) 218 mg/dL 70-110 TESTED AT [address] (test dagi=4004) [facility] [address] POCT-GLUCOSE [id number] 11:28:00 Test Item Value Reference Range Comments POC-GLUCOSE METER (BEAKER) 215 mg/dL 70-110 TESTED AT [address] (test trui=8054) [facility] [address] POCT-GLUCOSE [id number] 06:58:00 Test Item Value Reference Range Comments POC-GLUCOSE METER (BEAKER) 197 mg/dL 70-110 TESTED AT [address] (test cwmy=8389) [facility] [address] POCT-GLUCOSE [id number] 21:35:00 Test Item Value Reference Range Comments POC-GLUCOSE METER (BEAKER) 266 mg/dL 70-110 TESTED AT [address] (test byjk=5818) [facility] [address] POCT-GLUCOSE [id number] 17:08:00 Test Item Value Reference Range Comments POC-GLUCOSE METER (BEAKER) 189 mg/dL 70-110 TESTED AT [address] (test lftq=9731) [place] [id number] POCT-GLUCOSE [id number] 11:44:00 Test Item Value Reference Range Comments POC-GLUCOSE METER (BEAKER) 223 mg/dL 70-110 TESTED AT [address] (test gsbi=7008) [place] [id number] POCT-GLUCOSE [id number] 07:21:00 Test Item Value Reference Range Comments POC-GLUCOSE METER (BEAKER) 173 mg/dL 70-110 TESTED AT [address] (test szun=0150) [facility] [address] RAD, CHEST, 1 VIEW, NON [id number] 07:12:00Reason for exam:->pulm edemaShould this be performed at the bedside?->YesFINAL REPORT CLINICAL HISTORY: pulm edema TECHNIQUE: 1 view of the chest. COMPARISON : 09/06/2018 IMPRESSION: Right central line has been removed. There is decreased bibasilar atelectasis. There is no significant appearing pleural fluid. The cardiomediastinal silhouette is magnified by technique. Signed: Yimi Harkinsort Verified Date/Time: 09/07/2018 07:12:01 Reading Location : [facility] Reading Room [id number] 06:13:00 Test Item Value Reference Range Comments PHOSPHORUS (BEAKER) (test swyy=742) 2.0 mg/dL 2.3-4.7 [id number] 06:13:00 Test Item Value Reference Range Comments MAGNESIUM (BEAKER) (test hlzg=386) 2.2 mg/dL 1.6-2.6 COMPREHENSIVE METABOLIC [id number] 06:13:00 Test Item Value Reference Range Comments TOTAL PROTEIN (BEAKER) 6.1 gm/dL 6.0-8.3 (test lwxp=372) ALBUMIN (BEAKER) (test 3.3 g/dL 3.5-5.0 mmcq=0397) ALKALINE PHOSPHATASE 44 U/L 40-150 (BEAKER) (test xsau=582) BILIRUBIN TOTAL (BEAKER) 0.6 mg/dL 0.2-1.2 (test wjjy=407) SODIUM (BEAKER) (test 141 meq/L 136-145 kryz=539) POTASSIUM (BEAKER) (test 3.5 meq/L 3.5-5.1 mzuf=724) CHLORIDE (BEAKER) (test 109 meq/L 98-107 fbvz=804) CO2 (BEAKER) (test 24 meq/L 22-29 radk=228) BLOOD UREA NITROGEN 11 mg/dL 7-21 (BEAKER) (test ylgf=153) CREATININE (BEAKER) (test 0.63 mg/dL 0.57-1.25 jgcq=070) GLUCOSE RANDOM (BEAKER) 134 mg/dL 70-105 (test ttgk=060) CALCIUM (BEAKER) (test 8.3 mg/dL 8.4-10.2 kpqj=593) AST (SGOT) (BEAKER) (test 21 U/L 5-34 ywgf=864) ALT (SGPT) (BEAKER) (test 12 U/L 6-55 mzjx=366) EGFR (BEAKER) (test 128 mL/min/1.73 sq ESTIMATED GFR IS NOT yrdt=9819) m ACCURATE CREATININE CLEARANCE IN PREDICTING GLOMERULAR FILTRATION RATE. ESTIMATED GFR IS NOT APPLICABLE FOR DIALYSIS PATIENTS. CBC W/PLT COUNT & AUTO [id number] 05:22:00 Test Item Value Reference Range Comments WHITE BLOOD CELL COUNT (BEAKER) (test ljgk=354) 6.9 K/ L 3.5-10.5 RED BLOOD CELL COUNT (BEAKER) (test bbld=208) 3.83 M/ L 4.63-6.08 HEMOGLOBIN (BEAKER) (test yqri=383) 11.8 GM/DL 13.7-17.5 HEMATOCRIT (BEAKER) (test sdlp=315) 35.0 % 40.1-51.0 MEAN CORPUSCULAR VOLUME (BEAKER) (test yzfu=679) 91.4 fL 79.0-92.2 MEAN CORPUSCULAR HEMOGLOBIN (BEAKER) (test 30.8 pg 25.7-32.2 ehqr=086) MEAN CORPUSCULAR HEMOGLOBIN CONC (BEAKER) (test 33.7 GM/DL 32.3-36.5 sxmf=812) RED CELL DISTRIBUTION WIDTH (BEAKER) (test 13.3 % 11.6-14.4 puvf=504) PLATELET COUNT (BEAKER) (test ouon=375) 237 K/CU MM 150-450 MEAN PLATELET VOLUME (BEAKER) (test xwmk=407) 9.8 fL 9.4-12.4 NUCLEATED RED BLOOD CELLS (BEAKER) (test 0 /100 WBC 0-0 eirr=104) NEUTROPHILS RELATIVE PERCENT (BEAKER) (test 61 % zzgc=919) LYMPHOCYTES RELATIVE PERCENT (BEAKER) (test 29 % qsmp=538) MONOCYTES RELATIVE PERCENT (BEAKER) (test 8 % mzsb=150) EOSINOPHILS RELATIVE PERCENT (BEAKER) (test 1 % bdbf=858) BASOPHILS RELATIVE PERCENT (BEAKER) (test 0 % vjkq=821) NEUTROPHILS ABSOLUTE COUNT (BEAKER) (test 4.21 K/ L 1.78-5.38 ceii=623) LYMPHOCYTES ABSOLUTE COUNT (BEAKER) (test 1.98 K/ L 1.32-3.57 jtlz=030) MONOCYTES ABSOLUTE COUNT (BEAKER) (test 0.54 K/ L 0.30-0.82 undz=213) EOSINOPHILS ABSOLUTE COUNT (BEAKER) (test 0.07 K/ L 0.04-0.54 avlk=372) BASOPHILS ABSOLUTE COUNT (BEAKER) (test 0.03 K/ L 0.01-0.08 lvwp=032) IMMATURE GRANULOCYTES-RELATIVE PERCENT (BEAKER) 1 % 0-1 (test vumx=9787) POCT-GLUCOSE [id number] 21:22:00 Test Item Value Reference Range Comments POC-GLUCOSE METER (BEAKER) 223 mg/dL 70-110 TESTED AT [address] (test eedk=9812) [place] [id number] POCT-GLUCOSE [id number] 17:32:00 Test Item Value Reference Range Comments POC-GLUCOSE METER (BEAKER) 204 mg/dL 70-110 TESTED AT [address] (test dhxo=6389) [place] [id number] MISCELLANEOUS LAB [id number] 14:45:00 Test Item Value Reference Range Comments SCAN RESULT (test ezpq=[id number]) POCT-GLUCOSE [id number] 13:12:00 Test Item Value Reference Range Comments POC-GLUCOSE METER (BEAKER) 224 mg/dL 70-110 TESTED AT [address] (test urya=2286) [place] [id number] POCT-GLUCOSE [id number] 07:36:00 Test Item Value Reference Range Comments POC-GLUCOSE METER (BEAKER) 173 mg/dL 70-110 TESTED AT [address] (test mwoo=9685) [place] [id number] RAD, CHEST, 1 VIEW, NON [id number] 07:19:00Reason for exam:->pulm edemaShould this be performed at the bedside?->YesFINAL REPORT CLINICAL HISTORY: pulm edema TECHNIQUE: 1 view of the chest. COMPARISON : 09/05/2018 IMPRESSION: A right central line is again seen. Mild prominence of the pulmonary vasculature is again seen. Bibasilar atelectasis appears slightly increased. Subpulmonic pleural effusions cannot be evaluated. The cardiomediastinal silhouette is magnified by technique. Signed: Yimi Harkins MDReport Verified Date/Time: 09/06/2018 07:19:50 Reading Location: [facility] Reading Room COMPREHENSIVE METABOLIC [id number] 05:49:00 Test Item Value Reference Range Comments TOTAL PROTEIN (BEAKER) 5.6 gm/dL 6.0-8.3 (test hrub=539) ALBUMIN (BEAKER) (test 3.0 g/dL 3.5-5.0 yirx=9938) ALKALINE PHOSPHATASE 38 U/L 40-150 (BEAKER) (test nabf=879) BILIRUBIN TOTAL (BEAKER) 0.5 mg/dL 0.2-1.2 (test ydms=148) SODIUM (BEAKER) (test 142 meq/L 136-145 kkgu=489) POTASSIUM (BEAKER) (test 3.4 meq/L 3.5-5.1 mbwd=345) CHLORIDE (BEAKER) (test 112 meq/L 98-107 gdqe=620) CO2 (BEAKER) (test 24 meq/L 22-29 eooo=139) BLOOD UREA NITROGEN 14 mg/dL 7-21 (BEAKER) (test xzvt=462) CREATININE (BEAKER) (test 0.59 mg/dL 0.57-1.25 dtpb=258) GLUCOSE RANDOM (BEAKER) 147 mg/dL 70-105 (test bljh=410) CALCIUM (BEAKER) (test 7.7 mg/dL 8.4-10.2 xudy=756) AST (SGOT) (BEAKER) (test 16 U/L 5-34 vcyu=505) ALT (SGPT) (BEAKER) (test 10 U/L 6-55 zokv=212) EGFR (BEAKER) (test 138 mL/min/1.73 sq ESTIMATED GFR IS NOT rzfb=3738) m ACCURATE CREATININE CLEARANCE IN PREDICTING GLOMERULAR FILTRATION RATE. ESTIMATED GFR IS NOT APPLICABLE FOR DIALYSIS PATIENTS. [id number] 05:47:00 Test Item Value Reference Range Comments PHOSPHORUS (BEAKER) (test uonv=565) 1.9 mg/dL 2.3-4.7 [id number] 05:47:00 Test Item Value Reference Range Comments MAGNESIUM (BEAKER) (test rwge=299) 2.0 mg/dL 1.6-2.6 CBC W/PLT COUNT & AUTO [id number] 05:34:00 Test Item Value Reference Range Comments WHITE BLOOD CELL COUNT (BEAKER) (test pybe=249) 6.7 K/ L 3.5-10.5 RED BLOOD CELL COUNT (BEAKER) (test qwqo=853) 3.80 M/ L 4.63-6.08 HEMOGLOBIN (BEAKER) (test zyfc=822) 11.6 GM/DL 13.7-17.5 HEMATOCRIT (BEAKER) (test xecw=342) 34.9 % 40.1-51.0 MEAN CORPUSCULAR VOLUME (BEAKER) (test fnqz=694) 91.8 fL 79.0-92.2 MEAN CORPUSCULAR HEMOGLOBIN (BEAKER) (test 30.5 pg 25.7-32.2 hino=503) MEAN CORPUSCULAR HEMOGLOBIN CONC (BEAKER) (test 33.2 GM/DL 32.3-36.5 swjp=596) RED CELL DISTRIBUTION WIDTH (BEAKER) (test 13.2 % 11.6-14.4 opyy=393) PLATELET COUNT (BEAKER) (test lvrw=097) 215 K/CU MM 150-450 MEAN PLATELET VOLUME (BEAKER) (test eekn=698) 9.2 fL 9.4-12.4 NUCLEATED RED BLOOD CELLS (BEAKER) (test 0 /100 WBC 0-0 awpo=719) NEUTROPHILS RELATIVE PERCENT (BEAKER) (test 68 % pjlw=758) LYMPHOCYTES RELATIVE PERCENT (BEAKER) (test 22 % xfcm=606) MONOCYTES RELATIVE PERCENT (BEAKER) (test 7 % quhu=762) EOSINOPHILS RELATIVE PERCENT (BEAKER) (test 2 % hmpk=558) BASOPHILS RELATIVE PERCENT (BEAKER) (test 0 % qncj=592) NEUTROPHILS ABSOLUTE COUNT (BEAKER) (test 4.53 K/ L 1.78-5.38 ritz=526) LYMPHOCYTES ABSOLUTE COUNT (BEAKER) (test 1.50 K/ L 1.32-3.57 jcur=985) MONOCYTES ABSOLUTE COUNT (BEAKER) (test 0.47 K/ L 0.30-0.82 eiql=410) EOSINOPHILS ABSOLUTE COUNT (BEAKER) (test 0.13 K/ L 0.04-0.54 uxqi=840) BASOPHILS ABSOLUTE COUNT (BEAKER) (test 0.02 K/ L 0.01-0.08 nveo=621) IMMATURE GRANULOCYTES-RELATIVE PERCENT (BEAKER) 1 % 0-1 (test ibkc=5397) POCT-GLUCOSE [id number] 22:53:00 Test Item Value Reference Range Comments POC-GLUCOSE METER (BEAKER) 206 mg/dL 70-110 TESTED AT [facility] [address] [facility] (test iizj=6590) [place] [address] MR, SPINE, LUMBAR, [id number] 18:10:00FINAL REPORT MRI lumbar spine with and without [...] At L1-L2, unremarkable At L2-L3, large disc bulgewith superimposed central, and left foraminal disc protrusions. There is nsrt-ie-jjadvvmq narrowing of the central canal, and left [...] left, and moderate right foraminal stenosis. At L5-S1,moderate disc bulge and moderate to severe facet arthropathy. Central canal is mildly narrowed. There is moderate to severe bilateral foraminal stenosis. The visualized paraspinal and retroperitoneal soft tissues are unremarkable. IMPRESSION: Multilevel degenerative change in lumbar spine superimposedon a congenitally narrow spinal canal. Central canal is severely narrowed at L3-L4 and L4-L5. There is also high-grade foraminal narrowing at several levels as described. Signed: Galen Prideort Verified Date/Time: 09/05/2018 18:10:50 Reading Location: [facility] C013V Neuro Reading Room POCT-GLUCOSE [id number] 18:07:00 Test Item Value Reference Range Comments POC-GLUCOSE METER (BEAKER) 183 mg/dL 70-110 TESTED AT [address] (test xayn=7667) [facility] [address] POCT-GLUCOSE [id number] 11:53:00 Test Item Value Reference Range Comments POC-GLUCOSE METER (BEAKER) 324 mg/dL 70-110 Notified MILLA CARPENTER/TESTED AT [facility] (test quap=0780) [address] [facility] [address] [id number] 10:47:00 Test Item Value Reference Range Comments LIPASE (BEAKER) (test vxps=304) 141 U/L 8-78 POCT-GLUCOSE [id number] 07:43:00 Test Item Value Reference Range Comments POC-GLUCOSE METER (BEAKER) 176 mg/dL 70-110 TESTED AT [facility] [address] (test ioxx=9207) [facility] [address] RAD, CHEST, 1 VIEW, NON [id number] 05:49:00Reason for exam:->pulm edemaShould this be performed at the bedside?->YesFINAL REPORT RAD, CHEST, 1 VIEW, NON DEPT INDICATION: pulm edema COMPARISON: Prior day's exam FINDINGS: Portable frontal view of the chest. IMPRESSION: Support Lines: Stable. Lungs and pleura: Unchanged airspace and pleural opacities. No pneumothorax.Heart and mediastinum: Stable contours. Additional findings: None. Signed: Ozzie Avila Verified Date/Time: 09/05/2018 05:49:04 Reading Location: [address] Reading Room [id number] 04:38 :00 Test Item Value Reference Range Comments PHOSPHORUS (BEAKER) (test eeqj=539) 2.6 mg/dL 2.3-4.7 [id number] 04:38:00 Test Item Value Reference Range Comments MAGNESIUM (BEAKER) (test qjqg=418) 2.2 mg/dL 1.6-2.6 COMPREHENSIVE METABOLIC [id number] 04:38:00 Test Item Value Reference Range Comments TOTAL PROTEIN (BEAKER) 6.1 gm/dL 6.0-8.3 (test eese=900) ALBUMIN (BEAKER) (test 3.3 g/dL 3.5-5.0 ogng=1561) ALKALINE PHOSPHATASE 42 U/L 40-150 (BEAKER) (test aghk=553) BILIRUBIN TOTAL (BEAKER) 0.6 mg/dL 0.2-1.2 (test jwoh=076) SODIUM (BEAKER) (test 144 meq/L 136-145 pkvw=529) POTASSIUM (BEAKER) (test 3.9 meq/L 3.5-5.1 kree=876) CHLORIDE (BEAKER) (test 111 meq/L 98-107 mswc=836) CO2 (BEAKER) (test 26 meq/L 22-29 xljb=029) BLOOD UREA NITROGEN 22 mg/dL 7-21 (BEAKER) (test tivh=833) CREATININE (BEAKER) (test 0.72 mg/dL 0.57-1.25 bswh=906) GLUCOSE RANDOM (BEAKER) 165 mg/dL 70-105 (test ccgr=470) CALCIUM (BEAKER) (test 8.4 mg/dL 8.4-10.2 qqed=539) AST (SGOT) (BEAKER) (test 16 U/L 5-34 mypw=540) ALT (SGPT) (BEAKER) (test 10 U/L 6-55 zsye=219) EGFR (BEAKER) (test 110 mL/min/1.73 sq ESTIMATED GFR IS NOT agxg=6165) m ACCURATE CREATININE CLEARANCE IN PREDICTING GLOMERULAR FILTRATION RATE. ESTIMATED GFR IS NOT APPLICABLE FOR DIALYSIS PATIENTS. CBC W/PLT COUNT & AUTO [id number] 04:16:00 Test Item Value Reference Range Comments WHITE BLOOD CELL COUNT (BEAKER) (test danp=784) 10.5 K/ L 3.5-10.5 RED BLOOD CELL COUNT (BEAKER) (test szdk=149) 3.87 M/ L 4.63-6.08 HEMOGLOBIN (BEAKER) (test vyif=164) 11.8 GM/DL 13.7-17.5 HEMATOCRIT (BEAKER) (test ihto=464) 36.0 % 40.1-51.0 MEAN CORPUSCULAR VOLUME (BEAKER) (test cxri=479) 93.0 fL 79.0-92.2 MEAN CORPUSCULAR HEMOGLOBIN (BEAKER) (test 30.5 pg 25.7-32.2 vzsr=014) MEAN CORPUSCULAR HEMOGLOBIN CONC (BEAKER) (test 32.8 GM/DL 32.3-36.5 dvko=277) RED CELL DISTRIBUTION WIDTH (BEAKER) (test 13.5 % 11.6-14.4 rkhm=080) PLATELET COUNT (BEAKER) (test uqll=551) 263 K/CU MM 150-450 MEAN PLATELET VOLUME (BEAKER) (test pzla=135) 9.5 fL 9.4-12.4 NUCLEATED RED BLOOD CELLS (BEAKER) (test 0 /100 WBC 0-0 xyka=099) NEUTROPHILS RELATIVE PERCENT (BEAKER) (test 74 % qsiv=468) LYMPHOCYTES RELATIVE PERCENT (BEAKER) (test 18 % qyex=188) MONOCYTES RELATIVE PERCENT (BEAKER) (test 5 % raek=011) EOSINOPHILS RELATIVE PERCENT (BEAKER) (test 2 % glis=047) BASOPHILS RELATIVE PERCENT (BEAKER) (test 0 % wrkz=271) NEUTROPHILS ABSOLUTE COUNT (BEAKER) (test 7.70 K/ L 1.78-5.38 etqn=011) LYMPHOCYTES ABSOLUTE COUNT (BEAKER) (test 1.89 K/ L 1.32-3.57 sglc=856) MONOCYTES ABSOLUTE COUNT (BEAKER) (test 0.56 K/ L 0.30-0.82 hppf=151) EOSINOPHILS ABSOLUTE COUNT (BEAKER) (test 0.18 K/ L 0.04-0.54 weko=193) BASOPHILS ABSOLUTE COUNT (BEAKER) (test 0.04 K/ L 0.01-0.08 uwka=592) IMMATURE GRANULOCYTES-RELATIVE PERCENT (BEAKER) 1 % 0-1 (test boht=6894) U/S, ABDOMINAL, [id number] 02:32:00Reason for exam:->abd distension, nausea,vomittingShould this be performed at the bedside?->YesFINAL REPORT INDICATION: abd distension,nausea,vomitting COMPARISON: None. TECHNIQUE: Real-time transabdominal serrano scale and color Doppler ultrasound of the abdomen. FINDINGS:Liver: Size: 18.5cm. Echogenicity : Increased parenchymal echogenicity. Masses/lesions: None. Surface Nodularity: [...] Size: 13.6 x 6.5 x 6.0 cm. Parenchyma : Normal echogenicity. No cysts. No stones. Hydronephrosis: None. Ascites: None. Regional Vasculature: The visibleabdominal aorta, IVC and hepatic veins are patent. The aorta measures 2.3 cm proximally, 2.2 cm in the midportion and 1.7 cm distally. Additional findings: None. IMPRESSION: Hepatomegaly with fatty infiltration. Signed: Ozzie Avila Verified Date/Time: 02:32:11 Reading Location: [address] Reading Room Electronically signed by: Hitesh ZARATE 09/05/2018 02:32 AMCT, [id number] 21:34:00Elevated lipaseFINAL REPORT CLINICAL HISTORY: Nausea, vomiting, diarrhea FINDINGS: Multipleaxial images of the abdomen and pelvis were [...] Patchy opacity in the right lung base mayreflect atelectasis in the presence of an elevated right hemidiaphragm. Pneumonitis should be excluded clinically. No pleural effusion or pneumothorax. Atherosclerotic calcification of the coronary arteries. Liver: Low-density liver parenchyma, suggesting steatosis Gallbladder and biliary tree : Previous cholecystectomy Spleen: No significant findings. Adrenal Glands: No significant findings. Kidneysand ureters: No significant findings. Stomach and Duodenum: [...] organs: No significant findings. Other: No free air , fluid or adenopathy Skeleton: No acute bony [...] dated 08/30/2018. Follow-up CT chest after completion ofa course of treatment to demonstrate resolution and exclude an underlying lesion is recommended. Signed: Blair Dang Verified Date/Time: 09/04/2018 21: 34:29 Reading Location: [address] Reading Room POCT- GLUCOSE [id number] 21:30:00 Test Item Value Reference Range Comments POC-GLUCOSE METER (BEAKER) 159 mg/dL 70-110 TESTED AT [address] (test rqfn=7912) [facility] [address] VANCOMYCIN LEVEL, [id number] 21:17:00 Test Item Value Reference Range Comments VANCOMYCIN TROUGH (BEAKER) (test ycei=458) 9.0 ug/mL 10.0-20.0 Please draw vancomycin trough level 09/04 at 2030 hold if trough >20POCT- GLUCOSE [id number] 18:32:00 Test Item Value Reference Range Comments POC-GLUCOSE METER (BEAKER) 174 mg/dL 70-110 TESTED AT [address] (test vsql=3390) [facility] [address] NEEDLE EMG, 4 [id number] 16:22:00Reason for exam:->r/o [facility]aylor [facility] CenterNeurophysiology DepartmentELECTROMYOGRAPHY - NERVE CONDUCTION STUDY [address] [place] [address] Name : Garrison Burnett : Date of : 1955 Gender : Male Date of Exam: 09/04/2018 3:58 PMReferring Physician:Kyrie Singhxamining Physician: Erica Henriquez Patient History: Patient is currently admitted for possible NSTEMI, generalized weakness and shortness of breath; endorses chronic paresthesias infeet and history of diabetes. Exam shows 5/5 strength throughout, previously reported tongue fasciculations but none on exam today with normal genioglossus strength. This study was done to evaluate for polyneuropathy or diffuse denervation.Motor Nerve Conduction:Nerve and Site Latency Amplitude Segment LatencyDifference Distance ConductionVelocityPeroneal.LAnkle NR NR Extensor digitorum brevis-Ankle 80 mm Fibula (head) NR NR Ankle-Fibula (head) 290 mm Knee NR NR Fibula (head)- Knee 100 mm Peroneal.LFibula (head) 4.0 ms 3.1 mV Tibialis anterior-Fibula ( head) 4.0 ms Popliteal fossa 5.5 ms 3.4 mV Fibula (head)-Popliteal fossa 1.5 ms 100 mm 67 m/sTibial.LAnkle 4.7 ms 0.8 mV Abductor hallucis-Ankle 4.7 ms 80 mm Popliteal fossa 13.5 ms 0.9 mV Ankle-Popliteal fossa 8.8 ms 360 mm 41 m/ sMedian.LWrist 4.7 ms 5.5 mV Abductor pollicis brevis-Wrist 4.7 ms 60 mm Elbow 9.3 ms 4.9 mV Wrist-Elbow 4.6 ms 215 mm 47 m/sUlnar.LWrist 3.1 ms 5.6 mV Abductor digiti minimi (manus)-Wrist 3.1 ms 60 mm Below elbow 7.1 ms 3.5 mV Wrist-Below elbow 4.0 ms 195 mm 49 m/sAbove elbow 8.9 ms 3.5 mV Below elbow- Above elbow 1.8 ms 100 mm 56 m/sPeroneal.RAnkle NR NR Extensor digitorum brevis- Ankle 80 mm Fibula (head) NR NR Ankle-Fibula (head) 295 mm Knee NR NR Fibula ( head)-Knee 100 mm Peroneal.RFibula (head) 3.1 ms1.6 mV Tibialis anterior- Fibula (head) 3.1 ms Popliteal fossa 5.5 ms 1.9 mV Fibula (head)- Poplitealfossa 2.4 ms 100 mm 42 m/sTibial.RAnkle 4.7 ms 0.4 mV Abductor hallucis -Ankle 4.7 ms 80 mm Poplitealfossa 12.6 ms 0.4 mV Ankle-Popliteal fossa 7.9 ms 365 mm 46 m/sMedian.RWrist 5.5 ms 7.6 mV Abductor pollicis brevis-Wrist 5.5 ms 60 mm Elbow 10.4 ms 7.2 mV Wrist-Elbow 4.9 ms 235 mm 48 m/sUlnar.RWrist 3.5 ms 5.8 mV Abductor digiti minimi (manus)-Wrist 3.5 ms 60 mm Below elbow 7.5 ms 5.0 mV Wrist-Belowelbow 4.0 ms 205 mm 51 m/sAbove elbow 9.5 ms 5.0 mV Below elbow- Above elbow 2.0 ms 100 mm 50 m/sF-Wave StudiesNerve M-Latency F-LatencyTibial.L 13.5 32.4Median.L 9.3 30.8Ulnar.L 8.9 31.0Tibial.R 12.6 NRMedian.R 10.4 30.7Ulnar.R 9.5 31.6Sensory Nerve Conduction:Nerve and Site Onset Latency PeakLatency Amplitude Segment LatencyDifference Distance ConductionVelocitySural.LLower leg NR NR NR Ankle-Lowerleg 140 mm Median.LWrist 4.0 ms 4.6 ms 4 𒩠V Digit II (index finger)-Wrist 4.0 ms 130 mm 33 m/sUlnar.LWrist NR NR NR Digit V (little finger)-Wrist 110 mm Radial.LForearm 1.1 ms 2.0 ms 23 寏V Anatomical snuff box-Forearm 1.1 ms 110 mm 55 m/sSural.RLower leg 2.4 ms 3.5 ms 5 槃V Ankle-Lower leg 2.4 ms 140 mm 40 m/sMedian.RWrist 3.8 ms 4.5 ms 8 㕍V Digit II (index finger)-Wrist 3.8 ms 130 mm 34 m/sUlnar.RWrist NR NR NR Digit V (little finger)- Wrist 110 mm Radial.RForearm 1.9 ms 2.5 ms 18 ᴥV Anatomical snuff box-Forearm 1.9 ms 95 mm 38 m/sH-waves:Nerve Latency Amplitude (max)Tibial.L M- wave: 5.7 ms 3.0 mVH-wave: NR NRTibial.R M-wave: 5.9 ms 3.5 mVH-wave: NR NRNeedle EMG Examination: Insertional Spontaneous Activity Volitional MUAPsMuscle Insertional Fibs +Wave Fasc Duration Amplitude Poly Pattern EffortTibialis anterior.R Normal None None None Sl. Incr. Sl. Incr. Few Mild Reduced Max.Gastrocnemius (Medial head).R Normal None None None Normal Sl. Incr. None Mild Reduced Max.Vastus medialis.R Normal None None None Normal Normal None Normal Max.1st dorsal interosseous.R Normal None None None Sl. Incr. Sl. Incr. None Mild Reduced Max.Deltoid.R Normal None None None Normal Normal None Normal Max.Triceps brachii.R Normal None None None Normal Normal None Normal Max.Flexor carpi radialis.R Normal None None None Normal Normal None Normal Max.Extensor hallucis longus.R Normal None None None Gr. Incr. Gr. Incr. None Mild Reduced Max.Genioglossus.R Normal None None None Normal Normal None Normal Max.Genioglossus.L Normal None None None Normal Normal None Normal Max.Summary of findings: 1. Sensory studies of the [...] except for no response in right tibial nerve.3. H-wave reflexes recording at the soleus muscles showed no responses.4. Electromyography of the right upper and lower limbs and genioglossus was done using a disposable concentric needle. There was no abnormal spontaneous activity. There were mild chronicneurogenic changes in the distal muscles (TA, gastrocnemius, FDI) but the remainder of the muscles tested showed normal findings.Conclusions: This is an abnormal electrodiagnostic study due to the followin. 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 Erica Henriquez M.D. RAD, CHEST, 1 VIEW, NON [id number] 10:58:00Reason for exam:->pulm edemaShould this be performed at the bedside?->YesFINAL REPORT Chest one view. Clinical history: pulm edema Comparison: 09/03/2018 Discussion: A frontal chest is provided. Cardiomediastinal contours are unchanged. ET and feeding tubes have been removed. Right IJ line is in stable position. Somewhat low lung volume. There is mild atelectasis or scarring at the right lung base. No new consolidation. No evidence of pulmonary edema, pneumothorax, or large effusion. Note is made of gaseous distention of the stomach. Signed: Galen Prideort Verified Date/Time: 09/04/2018 10:58:17 Reading Location: [facility] Reading Room [id number] 10:53:00 Test Item Value Reference Range Comments LIPASE (BEAKER) (test ccxv=013) 122 U/L 8-78 [id number] 10:53:00 Test Item Value Reference Range Comments AMYLASE (BEAKER) (test apcn=557) 86 U/L 25-125 RAD, ABDOMEN/KUB, 1 VIEW [id number] 10:34:00Reason for exam:->abdominal distensionShould this be performed at the bedside?->YesFINAL REPORT Abdomen one view Comparison: September 03, 2018 Reason for exam: abdominal distension Findings: There is gaseous distention of the stomach. Correlate clinically for gastroparesis or outlet obstruction. Bowel gas pattern is otherwise nonspecific and nonobstructive. Nofree air is identified. Surgical clips are seen in the right upper abdomen. Osseous structures demonstrate degenerative changes. Signed: Galen Pride Verified Date/Time: 09/04/2018 10:34:31 Reading Location: [facility] Reading Room Electronically signed by: GALEN PRIDE M.D. on09/04/2018 10:34 AMBLOOD [id number] 10:01:00 Test Item Value Reference Range Comments CULTURE (BEAKER) (test eqrr=1016) No growth in 5 days POCT-GLUCOSE [id number] 08:11:00 Test Item Value Reference Range Comments POC-GLUCOSE METER (BEAKER) 233 mg/dL 70-110 TESTED AT [facility] [address] [facility] (test jdwt=9171) [facility] [address] BLOOD [id number] 05:01:00 Test Item Value Reference Range Comments CULTURE (BEAKER) (test bxbh=1410) No growth in 5 days [id number] 03:50:00 Test Item Value Reference Range Comments PHOSPHORUS (BEAKER) (test gbrm=408) 2.5 mg/dL 2.3-4.7 [id number] 03:50:00 Test Item Value Reference Range Comments MAGNESIUM (BEAKER) (test xfdd=298) 2.2 mg/dL 1.6-2.6 COMPREHENSIVE METABOLIC [id number] 03:50:00 Test Item Value Reference Range Comments TOTAL PROTEIN (BEAKER) 7.1 gm/dL 6.0-8.3 (test yqtj=713) ALBUMIN (BEAKER) (test 3.7 g/dL 3.5-5.0 tzsp=7303) ALKALINE PHOSPHATASE 46 U/L 40-150 (BEAKER) (test qfks=643) BILIRUBIN TOTAL (BEAKER) 0.6 mg/dL 0.2-1.2 (test tszv=730) SODIUM (BEAKER) (test 143 meq/L 136-145 nolj=638) POTASSIUM (BEAKER) (test 3.8 meq/L 3.5-5.1 gvcj=151) CHLORIDE (BEAKER) (test 106 meq/L 98-107 lvma=592) CO2 (BEAKER) (test 27 meq/L 22-29 ytee=757) BLOOD UREA NITROGEN 20 mg/dL 7-21 (BEAKER) (test tflw=319) CREATININE (BEAKER) (test 0.76 mg/dL 0.57-1.25 auzo=952) GLUCOSE RANDOM (BEAKER) 219 mg/dL 70-105 (test esop=804) CALCIUM (BEAKER) (test 9.1 mg/dL 8.4-10.2 lxum=886) AST (SGOT) (BEAKER) (test 17 U/L 5-34 ysdo=912) ALT (SGPT) (BEAKER) (test 14 U/L 6-55 sizv=435) EGFR (BEAKER) (test 103 mL/min/1.73 sq ESTIMATED GFR IS NOT mzgi=3289) m ACCURATE CREATININE CLEARANCE IN PREDICTING GLOMERULAR FILTRATION RATE. ESTIMATED GFR IS NOT APPLICABLE FOR DIALYSIS PATIENTS. CBC W/PLT COUNT & AUTO [id number] 03:33:00 Test Item Value Reference Range Comments WHITE BLOOD CELL COUNT (BEAKER) (test efam=374) 13.5 K/ L 3.5-10.5 RED BLOOD CELL COUNT (BEAKER) (test ycly=487) 4.28 M/ L 4.63-6.08 HEMOGLOBIN (BEAKER) (test hhkc=457) 13.3 GM/DL 13.7-17.5 HEMATOCRIT (BEAKER) (test rmau=119) 39.0 % 40.1-51.0 MEAN CORPUSCULAR VOLUME (BEAKER) (test okbe=015) 91.1 fL 79.0-92.2 MEAN CORPUSCULAR HEMOGLOBIN (BEAKER) (test 31.1 pg 25.7-32.2 rrst=085) MEAN CORPUSCULAR HEMOGLOBIN CONC (BEAKER) (test 34.1 GM/DL 32.3-36.5 hqah=877) RED CELL DISTRIBUTION WIDTH (BEAKER) (test 13.4 % 11.6-14.4 lpen=734) PLATELET COUNT (BEAKER) (test jwjk=050) 270 K/CU MM 150-450 MEAN PLATELET VOLUME (BEAKER) (test licz=337) 9.4 fL 9.4-12.4 NUCLEATED RED BLOOD CELLS (BEAKER) (test 0 /100 WBC 0-0 zuuz=201) NEUTROPHILS RELATIVE PERCENT (BEAKER) (test 84 % evnf=651) LYMPHOCYTES RELATIVE PERCENT (BEAKER) (test 9 % uqxg=776) MONOCYTES RELATIVE PERCENT (BEAKER) (test 5 % wmyg=361) EOSINOPHILS RELATIVE PERCENT (BEAKER) (test 1 % wsmn=876) BASOPHILS RELATIVE PERCENT (BEAKER) (test 0 % xdck=705) NEUTROPHILS ABSOLUTE COUNT (BEAKER) (test 11.40 K/ L 1.78-5.38 mndb=688) LYMPHOCYTES ABSOLUTE COUNT (BEAKER) (test 1.22 K/ L 1.32-3.57 tshx=619) MONOCYTES ABSOLUTE COUNT (BEAKER) (test 0.71 K/ L 0.30-0.82 udhk=293) EOSINOPHILS ABSOLUTE COUNT (BEAKER) (test 0.08 K/ L 0.04-0.54 cqnc=862) BASOPHILS ABSOLUTE COUNT (BEAKER) (test 0.04 K/ L 0.01-0.08 kxpz=399) IMMATURE GRANULOCYTES-RELATIVE PERCENT (BEAKER) 1 % 0-1 (test vken=2276) POCT-GLUCOSE [id number] 22:18:00 Test Item Value Reference Range Comments POC-GLUCOSE METER (BEAKER) 262 mg/dL 70-110 TESTED AT [facility] [address] [facility] (test atvn=2263) [facility] [address] C. DIFFICILE GDH [id number] 20:32:00 Test Item Value Reference Range Comments CDT TOXIN (test Negative Negative kowr=[id number]) CDT GDH ANTIGEN (test Negative Negative No indication of Clostridium pajc=[id number]) difficile infection and no colonization. Discontinue enteric isolation and therapy. Testing performed by [employer] Rapid Cassette Assay. For GDH, published sensitivity of the assay is 98.7% compared to cytotoxicity testing. For Toxin AB, published sensitivity is 87.8% and specificity 99.4% compared to cytotoxicity testing.Verification of kit performance was done by the [facility] Microbiology [facility] prior to clinical use.RAD, ABDOMEN/KUB, 1 VIEW [id number] 18: 40:00Reason for exam:->abdominal distensionShould this be performed at the bedside?->YesFINAL REPORT Comparison: 08/30/2018 TECHNIQUE: Frontal images of the abdomen Discussion: Abdomen: Bowel gas pattern is nonobstructed. There is no free intraperitoneal air. No soft tissue abnormalities. No acute skeletal abnormality. Right upper: Cholecystectomy clips are seen.Impression: 1. Nonspecific bowel gas pattern. Signed: Shailesh Pina Verified Date/Time: 09/03/2018 18:40:53 Reading Location: [facility] Reading Room Electronically signed by: SHAILESH PINA M.D. on 2017 06:40 PMPOCT-GLUCOSE [id number] 17:23:00 Test Item Value Reference Range Comments POC-GLUCOSE METER (BEAKER) 215 mg/dL 70-110 TESTED AT [facility] [address] [facility] (test bfpu=8939) [facility] [address] BLOOD GAS, [id number] 17:05:00 Test Item Value Reference Range Comments PH ARTERIAL (BEAKER) (test dwjl=742) 7.49 7.35-7.45 PCO2 ARTERIAL (BEAKER) (test bpto=694) 37 mmHg 35-45 PO2 ARTERIAL (BEAKER) (test cmxm=965) 69 mmHg 80-90 O2 SATURATION ARTERIAL (BEAKER) (test jyha=653) 95.1 % 96.0-97.0 HCO3 ARTERIAL (BEAKER) (test lbpp=607) 27 mmol/L 21-29 BASE EXCESS ARTERIAL (BEAKER) (test ptaw=449) 3.8 mmol/L -2.0-3.0 PATIENT TEMPERATURE (BEAKER) (test msgm=7094) 36.9 C FIO2 (BEAKER) (test uzop=7027) 28.0 % BLOOD GAS, [id number] 16:42:00 Test Item Value Reference Range Comments PH ARTERIAL (BEAKER) (test obfz=922) 7.45 7.35-7.45 PCO2 ARTERIAL (BEAKER) (test idiz=715) 39 mmHg 35-45 PO2 ARTERIAL (BEAKER) (test vpnn=024) 40 mmHg 80-90 O2 SATURATION ARTERIAL (BEAKER) (test xcde=282) 78.0 % 96.0-97.0 HCO3 ARTERIAL (BEAKER) (test mxpq=527) 27 mmol/L 21-29 BASE EXCESS ARTERIAL (BEAKER) (test anmn=619) 2.6 mmol/L -2.0-3.0 PATIENT TEMPERATURE (BEAKER) (test mpse=5883) 36.7 C FIO2 (BEAKER) (test ttft=7237) 28.0 % [id number] 15:06:00Medical Cytology Report Case: [id number] Authorizing Provider: Nannette Marie NP Collected: 08/31/2018 1146 Ordering Location: [place] [address] CCU Received: 09/03/2018 0947 Pathologist: Shannon Norman Specimen: Lung, Right Middle Lobe RIGHT MIDDLE LOBE LUNG, BAL ( CYTOSPINS): - NEGATIVE FOR MALIGNANCY Signing Pathologist Direct Phone Line: [phone] signed by Shannon Norman on 09/03/2018 at 3:06 [id number], PneumoniaRIGHT MIDDLE LOBE LUNG BALPrepared 4 cytospins from 20 ml colorless fluidCollected: [id number]: [id number] [facility], Department of Pathology, [address] [place] [address], [facility], [facility] of [facility], [address] [place] [address] , [facility], Department of Pathology, [address] [place] [address], QJZP-GLUCOSE [id number] 11:22:00 Test Item Value Reference Range Comments POC-GLUCOSE METER (BEAKER) 224 mg/dL 70-110 TESTED AT [address] (test vnkc=7655) [facility] [address] RAD, CHEST, 1 VIEW, NON [id number] 06:16:00Reason for exam:->ETT placementShould this be performed at the bedside?->YesFINAL REPORT RAD, CHEST, 1 VIEW, NON DEPT INDICATION: ETT placement COMPARISON: Prior day's exam FINDINGS: Portable frontal view of the chest. IMPRESSION: Support Lines: Interval advancement of the endotracheal tube which terminates 1.3 cm above the alycia, recommend retracting 2 to 3 cm. Otherwise unchanged support apparatus. Lungs and pleura: Unchanged airspace and pleuralopacities. No pneumothorax.Heart and mediastinum: Stable contours. Additional findings: None. Signed: Ozzie Avilaeport Verified Date/Time: 09/03/2018 06:16 :06 Reading Location: [address] Transitional Reading Room [id number] 05:13:00 Test Item Value Reference Range Comments MAGNESIUM (BEAKER) (test vevb=039) 2.0 mg/dL 1.6-2.6 BASIC METABOLIC [id number] 05:13:00 Test Item Value Reference Range Comments SODIUM (BEAKER) (test 142 meq/L 136-145 idhw=162) POTASSIUM (BEAKER) (test 4.1 meq/L 3.5-5.1 ocfw=707) CHLORIDE (BEAKER) (test 108 meq/L 98-107 zgzk=182) CO2 (BEAKER) (test 21 meq/L 22-29 rwce=254) BLOOD UREA NITROGEN 20 mg/dL 7-21 (BEAKER) (test qbbf=143) CREATININE (BEAKER) (test 0.78 mg/dL 0.57-1.25 zssw=302) GLUCOSE RANDOM (BEAKER) 213 mg/dL 70-105 (test kdwu=484) CALCIUM (BEAKER) (test 9.5 mg/dL 8.4-10.2 zbba=943) EGFR (BEAKER) (test 100 mL/min/1.73 sq m ESTIMATED GFR IS NOT yjlc=0873) ACCURATE CREATININE CLEARANCE IN PREDICTING GLOMERULAR FILTRATION RATE. ESTIMATED GFR IS NOT APPLICABLE FOR DIALYSIS PATIENTS. CBC W/PLT COUNT & AUTO [id number] 04:59:00 Test Item Value Reference Range Comments WHITE BLOOD CELL COUNT (BEAKER) (test uqcf=328) 14.4 K/ L 3.5-10.5 RED BLOOD CELL COUNT (BEAKER) (test rlyv=064) 4.35 M/ L 4.63-6.08 HEMOGLOBIN (BEAKER) (test srkc=237) 13.2 GM/DL 13.7-17.5 HEMATOCRIT (BEAKER) (test leza=604) 39.2 % 40.1-51.0 MEAN CORPUSCULAR VOLUME (BEAKER) (test qjty=475) 90.1 fL 79.0-92.2 MEAN CORPUSCULAR HEMOGLOBIN (BEAKER) (test 30.3 pg 25.7-32.2 bakh=844) MEAN CORPUSCULAR HEMOGLOBIN CONC (BEAKER) (test 33.7 GM/DL 32.3-36.5 tyys=761) RED CELL DISTRIBUTION WIDTH (BEAKER) (test 13.3 % 11.6-14.4 jkfo=518) PLATELET COUNT (BEAKER) (test orfv=848) 254 K/CU MM 150-450 MEAN PLATELET VOLUME (BEAKER) (test mals=790) 9.5 fL 9.4-12.4 NUCLEATED RED BLOOD CELLS (BEAKER) (test 0 /100 WBC 0-0 itpq=649) NEUTROPHILS RELATIVE PERCENT (BEAKER) (test 85 % deqf=990) LYMPHOCYTES RELATIVE PERCENT (BEAKER) (test 8 % xdtz=359) MONOCYTES RELATIVE PERCENT (BEAKER) (test 5 % vgcy=675) EOSINOPHILS RELATIVE PERCENT (BEAKER) (test 1 % pcsz=222) BASOPHILS RELATIVE PERCENT (BEAKER) (test 0 % rtvb=189) NEUTROPHILS ABSOLUTE COUNT (BEAKER) (test 12.25 K/ L 1.78-5.38 bgak=759) LYMPHOCYTES ABSOLUTE COUNT (BEAKER) (test 1.21 K/ L 1.32-3.57 ymuy=857) MONOCYTES ABSOLUTE COUNT (BEAKER) (test 0.70 K/ L 0.30-0.82 uitz=352) EOSINOPHILS ABSOLUTE COUNT (BEAKER) (test 0.10 K/ L 0.04-0.54 kfnn=964) BASOPHILS ABSOLUTE COUNT (BEAKER) (test 0.03 K/ L 0.01-0.08 yynh=910) IMMATURE GRANULOCYTES-RELATIVE PERCENT (BEAKER) 1 % 0-1 (test pyxs=3746) MR, SPINE, CERVICAL, [id number] 00:54:00FINAL REPORT MR Cervical spine with and without contrast. CLINICAL HISTORY: r/o ALS, neuromuscular disorder TECHNIQUE: MRI of the cervical spine utilizing sagittal T1, T2, STIR, axial T1, T2; and postgadolinium axial and sagittal T1-weighted images. COMPARISON: None FINDINGS:Reversal of the normal cervical lordosis centered at [...] No spinal canal or neural foraminal stenosis. C3 -C4: No spinal canal or neural foraminal stenosis. C4-C5: No significant spinal canal or neuroforaminal stenosis. C5-C6: Bilateraluncovertebral spurring and disc osteophyte complex results in mild spinal canal and left greater than right neural foraminal stenosis. C6-C7: Right greater than left uncovertebral spurring with central disc osteophyte complex results in moderate right greater than left neural foraminal and mild spinal canal stenosis. C7-T1: No spinal canal or neural foraminal stenosis. IMPRESSION:No cord signal abnormalities or abnormal enhancement within the cervical spine. Mild multilevel degenerative changes asdescribed above. Signed: Ozzie Avila [facility] CHILDRENeport Verified Date/ Time: 09/03/2018 00:54:27 Reading Location: [address] Reading Room VANCOMYCIN LEVEL, [id number] 00:52:00 Test Item Value Reference Range Comments VANCOMYCIN TROUGH (YADIEL) (test rkef=973) 8.0 ug/mL 10.0-20.0 MR, MRA, NECK, WITHOUT IV [id number] 00:45:00FINAL REPORT CLINICAL HISTORY: r/o ALS TECHNIQUE: MRI of the brain utilizing axial T2, FLAIR, GRE, DWI; sagittal and coronal T1-weighted images as well as postcontrast T1 weighted images. MRA of the head utilizing 3-D iied-sv-hwuvjx technique, with 3-D reconstructions. MRA of the neck utilizing 2-D and 3-D time- of-flight technique, with 3-D reconstructions. COMPARISON: None MRI Brain without and with contrast Findings:Brain:There is no evidence of acute infarct or [...] major intracranial flow-voids appear patent. No abnormal enhancement.Mucosal thickening in the bilateral sphenoid sinuses, ethmoid air cells andmaxillary sinuses. Trace left and small right mastoid air cell effusion. Intraorbital contents are unremarkable. No aggressive osseous or soft tissue lesions identified. MRA head: The left vertebral artery terminates in PICA. Multifocal atherosclerosis results in multifocal mild stenosis of the bilateral and two branches of the MCAs. No large vessel occlusion. There is no evidence of intracranial aneurysm. MRA NeckNarrowing of the proximal left internal carotid artery approximately 60% per NASCET criteria.The right carotid artery in the neck are patent including their bifurcations. The origins of the bilateral vertebral arteries are not well evaluated secondary to technique otherwise there is antegrade flow in the vertebral arteries in the neck. IMPRESSION:No evidence of acute infarct, hemorrhage, or hydrocephalus. Possible subtle diffuse cortical hyperintense FLAIR signal may be artifactualhowever hypoxic ischemic injury could have this appearance. Correlate clinically. No evidence for a major [place] proximal branch vessel occlusion. Intracranial atherosclerosis results in multifocal mild stenosis of the bilateral M2 segments of the middle cerebral arteries. 60% stenosis of the proximal left internal carotid artery by NASCET criteria No evidence of hemodynamically significant stenosis in the right cervical carotid or vertebral arteries by NASCET criteria. Signed: Ozzie Avila [facility] Verified Date/Time: 09/03/2018 00:45:16 Reading [facility] Transitional Reading Room MR, BRAIN, [id number] 00:45:00FINAL REPORT CLINICAL HISTORY: r/o ALS TECHNIQUE: MRI of the brain utilizing axial T2, FLAIR, GRE, DWI; sagittal and coronal T1-weighted images as well as postcontrast T1 weighted images. MRA of the head utilizing 3- D nrih-at-lbovke technique, with 3-D reconstructions. MRA of the neck utilizing 2-D and 3-D esyr-je-nktszy technique, with 3-D reconstructions. COMPARISON: None MRI Brain without and with contrast Findings:Brain:There is no evidence of acute infarct or [...] hydrocephalus or midline shift. There are no extra- axial fluid collections. The craniocervical junction is preserved. The major intracranial flow-voids appear patent. No abnormal enhancement.Mucosal thickening in the bilateral sphenoid sinuses, ethmoid air cells andmaxillary sinuses. Trace left and small right mastoid air cell effusion. Intraorbital contents are unremarkable. No aggressive osseous or soft tissue lesions identified. MRA head: The left vertebral artery terminates in PICA. Multifocal atherosclerosis results in multifocal mild stenosis of the bilateral and two branches of the MCAs. No large vessel occlusion. There is no evidence of intracranial aneurysm. MRA NeckNarrowing of the proximal left internal carotid artery approximately 60% per NASCET criteria.The right carotid artery in the neck are patent including their bifurcations. The origins of the bilateral vertebral arteries are not well evaluated secondary to technique otherwise there is antegrade flow in the vertebral arteries in the neck. IMPRESSION:No evidence of acute infarct, hemorrhage, or hydrocephalus. Possible subtle diffuse cortical hyperintense FLAIR signal may be artifactualhowever hypoxic ischemic injury could have this appearance. Correlate clinically. No evidence for a major [place] proximal branch vessel occlusion. Intracranial atherosclerosis results in multifocal mild stenosis of the bilateral M2 segments of the middle cerebral arteries. 60% stenosis of the proximal left internal carotid artery by NASCET criteria No evidence of hemodynamically significant stenosis in the right cervical carotid or vertebral arteries by NASCET criteria. Signed: Ozzie Avila MDReport Verified Date/Time: 2017 00:45:16 Reading Location: [facility] C013T Transitional Reading Room MR, MRA, BRAIN, WITHOUT [id number] 00:45:00FINAL REPORT CLINICAL HISTORY: r/o ALS TECHNIQUE: MRI of the brain utilizing axial T2, FLAIR, GRE, DWI; sagittal and coronal T1-weighted images as well as postcontrast T1 weighted images. MRA of the head utilizing 3-D wsag-ci-poncjy technique, with 3-D reconstructions. MRA of the neck utilizing 2-D and 3-D time- of-flight technique, with 3-D reconstructions. COMPARISON: None MRI Brain without and with contrast Findings:Brain:There is no evidence of acute infarct or [...] major intracranial flow-voids appear patent. No abnormal enhancement.Mucosal thickening in the bilateral sphenoid sinuses, ethmoid air cells andmaxillary sinuses. Trace left and small right mastoid air cell effusion. Intraorbital contents are unremarkable. No aggressive osseous or soft tissue lesions identified. MRA head: The left vertebral artery terminates in PICA. Multifocal atherosclerosis results in multifocal mild stenosis of the bilateral and two branches of the MCAs. No large vessel occlusion. There is no evidence of intracranial aneurysm. MRA NeckNarrowing of the proximal left internal carotid artery approximately 60% per NASCET criteria.The right carotid artery in the neck are patent including their bifurcations. The origins of the bilateral vertebral arteries are not well evaluated secondary to technique otherwise there is antegrade flow in the vertebral arteries in the neck. IMPRESSION:No evidence of acute infarct, hemorrhage, or hydrocephalus. Possible subtle diffuse cortical hyperintense FLAIR signal may be artifactualhowever hypoxic ischemic injury could have this appearance. Correlate clinically. No evidence for a major [place] proximal branch vessel occlusion. Intracranial atherosclerosis results in multifocal mild stenosis of the bilateral M2 segments of the middle cerebral arteries. 60% stenosis of the proximal left internal carotid artery by NASCET criteria No evidence of hemodynamically significant stenosis in the right cervical carotid or vertebral arteries by NASCET criteria. Signed: Ozzie Avila MDReport Verified Date/Time: 09/03/2018 00:45:16 Reading Location: [address] Transitional Reading Room POCT-GLUCOSE [id number] 00:34:00 Test Item Value Reference Range Comments POC-GLUCOSE METER (BEAKER) 187 mg/dL 70-110 TESTED AT [address] (test hsnd=9434) [place] [id number] POCT-GLUCOSE [id number] 16:17:00 Test Item Value Reference Range Comments POC-GLUCOSE METER (BEAKER) 180 mg/dL 70-110 TESTED AT [address] (test tbca=9428) [facility] [address] BASIC METABOLIC [id number] 14:11:00 Test Item Value Reference Range Comments SODIUM (BEAKER) (test 139 meq/L 136-145 qcqf=263) POTASSIUM (BEAKER) (test 3.8 meq/L 3.5-5.1 Specimen slightly fitf=853) hemolyzed CHLORIDE (BEAKER) (test 102 meq/L 98-107 zpfn=269) CO2 (BEAKER) (test 24 meq/L 22-29 lkfs=152) BLOOD UREA NITROGEN 16 mg/dL 7-21 (BEAKER) (test sapx=096) CREATININE (BEAKER) (test 0.82 mg/dL 0.57-1.25 Specimen slightly gzov=041) hemolyzed GLUCOSE RANDOM (BEAKER) 187 mg/dL 70-105 (test qhnv=706) CALCIUM (BEAKER) (test 9.4 mg/dL 8.4-10.2 jljn=038) EGFR (BEAKER) (test 94 mL/min/1.73 sq m ESTIMATED GFR IS NOT peal=9115) ACCURATE CREATININE CLEARANCE IN PREDICTING GLOMERULAR FILTRATION RATE. ESTIMATED GFR IS NOT APPLICABLE FOR DIALYSIS PATIENTS. MRSA [id number] 13:43:00 Test Item Value Reference Range Comments CULTURE (BEAKER) (test METHICILLIN RESISTANT 1+ Methicillin euyw=5429) STAPHYLOCOCCUS AUREUS resistant Staphylococcus aureus Clindamycin (test code=10) Erythromycin (test code=4) Linezolid (test code=40) Oxacillin (test code=14) Rifampin (test code=43) Tetracycline (test code=2) Trimethoprim + Sulfamethoxazole (test code=47) Vancomycin (test code=13) SPUTUM CULTURE + GRAM [id number] 13:36:00 Test Item Value Reference Range Comments CULTURE (BEAKER) (test METHICILLIN RESISTANT <1+ Methicillin qdjv=8239) STAPHYLOCOCCUS AUREUS resistant Staphylococcus aureus Clindamycin (test code=10) Erythromycin (test code=4) Linezolid (test code=40) Nitrofurantoin (test code=23) Oxacillin (test code=14) Rifampin (test code=43) Tetracycline (test code=2) Trimethoprim + Sulfamethoxazole (test code=47) Vancomycin (test code=13) GRAM STAIN RESULT 4+ WBCs (BEAKER) (test wtwu=0779) GRAM STAIN RESULT 0-5 epithelial cells (BEAKER) (test vuop=773262) GRAM STAIN RESULT 1+ gram positive cocci (BEAKER) (test in pairs and clusters qnya=963328) GRAM STAIN RESULT 1+ yeast (BEAKER) (test rrbh=623772) <1+ Normal respiratory davie presentPOCT-GLUCOSE [id number] 10:05:00 Test Item Value Reference Range Comments POC-GLUCOSE METER (BEAKER) 210 mg/dL 70-110 TESTED AT [facility] [address] [facility] (test tovv=5094) [facility] [address] BRONCHIAL CULTURE + GRAM [id number] 06:57:00 Test Item Value Reference Range Comments CULTURE (BEAKER) (test No growth zcjj=1837) GRAM STAIN RESULT No WBCs This is an appended report. (BEAKER) (test These results have been tvzx=3785) appended to a previously preliminary verified report. GRAM STAIN RESULT No organisms seen This is an appended report. (BEAKER) (test These results have been eutr=55177) appended to a previously preliminary verified report. BLOOD GAS, [id number] 05:30:00 Test Item Value Reference Range Comments PH ARTERIAL (BEAKER) (test uenx=210) 7.43 7.35-7.45 PCO2 ARTERIAL (BEAKER) (test xtlr=493) 39 mmHg 35-45 PO2 ARTERIAL (BEAKER) (test mwxa=163) 86 mmHg 80-90 O2 SATURATION ARTERIAL (BEAKER) (test qqke=594) 96.7 % 96.0-97.0 HCO3 ARTERIAL (BEAKER) (test hbzl=007) 25 mmol/L 21-29 BASE EXCESS ARTERIAL (BEAKER) (test rxao=141) 0.8 mmol/L -2.0-3.0 PATIENT TEMPERATURE (BEAKER) (test txrx=6568) 37.0 C FIO2 (BEAKER) (test jhxi=6614) 50.0 % RAD, CHEST, 1 VIEW, NON [id number] 04:24:00Reason for exam:->ETT placementShould this be performed at the bedside?->YesFINAL REPORT RAD, CHEST, 1 VIEW, NON DEPT INDICATION: ETT placement COMPARISON: Prior day's exam FINDINGS: Portable frontal view of the chest. IMPRESSION: Support Lines: Endotracheal tube terminates level of the thoracic inlet 7.5 cm above the alycia, recommend advancing 2 to3 cm. Otherwise unchanged support apparatus. Lungs and pleura: Persistent low lung volumes. Unchanged airspace and pleural opacities. No pneumothorax.Heart and mediastinum: Stable contours. Stable surgical changes.Additional findings: None. Signed: Ozzie Avila Verified Date/Time: 09/02/2018 04:24:02 Reading Location: [address] Transitional Reading Room [id number] 04:04:00 Test Item Value Reference Range Comments MAGNESIUM (BEAKER) (test jmxw=366) 1.9 mg/dL 1.6-2.6 BASIC METABOLIC [id number] 04:04:00 Test Item Value Reference Range Comments SODIUM (BEAKER) (test 139 meq/L 136-145 oshw=024) POTASSIUM (BEAKER) (test 3.7 meq/L 3.5-5.1 sihc=450) CHLORIDE (BEAKER) (test 108 meq/L 98-107 uriv=041) CO2 (BEAKER) (test 24 meq/L 22-29 tpbm=476) BLOOD UREA NITROGEN 20 mg/dL 7-21 (BEAKER) (test zmda=183) CREATININE (BEAKER) (test 0.77 mg/dL 0.57-1.25 haiw=889) GLUCOSE RANDOM (BEAKER) 176 mg/dL 70-105 (test epnp=413) CALCIUM (BEAKER) (test 8.6 mg/dL 8.4-10.2 fkiw=915) EGFR (BEAKER) (test 101 mL/min/1.73 sq m ESTIMATED GFR IS NOT lyoi=2344) ACCURATE CREATININE CLEARANCE IN PREDICTING GLOMERULAR FILTRATION RATE. ESTIMATED GFR IS NOT APPLICABLE FOR DIALYSIS PATIENTS. CBC W/PLT COUNT & AUTO [id number] 03:31:00 Test Item Value Reference Range Comments WHITE BLOOD CELL COUNT (BEAKER) (test dmxg=829) 8.8 K/ L 3.5-10.5 RED BLOOD CELL COUNT (BEAKER) (test iaud=221) 3.74 M/ L 4.63-6.08 HEMOGLOBIN (BEAKER) (test iupc=528) 11.3 GM/DL 13.7-17.5 HEMATOCRIT (BEAKER) (test bqur=488) 34.2 % 40.1-51.0 MEAN CORPUSCULAR VOLUME (BEAKER) (test opht=144) 91.4 fL 79.0-92.2 MEAN CORPUSCULAR HEMOGLOBIN (BEAKER) (test 30.2 pg 25.7-32.2 gvyu=714) MEAN CORPUSCULAR HEMOGLOBIN CONC (BEAKER) (test 33.0 GM/DL 32.3-36.5 jvqo=936) RED CELL DISTRIBUTION WIDTH (BEAKER) (test 13.5 % 11.6-14.4 jafm=077) PLATELET COUNT (BEAKER) (test zzhn=491) 210 K/CU MM 150-450 MEAN PLATELET VOLUME (BEAKER) (test ptiq=265) 9.3 fL 9.4-12.4 NUCLEATED RED BLOOD CELLS (BEAKER) (test 0 /100 WBC 0-0 zmwy=057) NEUTROPHILS RELATIVE PERCENT (BEAKER) (test 74 % soev=066) LYMPHOCYTES RELATIVE PERCENT (BEAKER) (test 18 % bmyt=591) MONOCYTES RELATIVE PERCENT (BEAKER) (test 6 % xlul=328) EOSINOPHILS RELATIVE PERCENT (BEAKER) (test 1 % wyrd=082) BASOPHILS RELATIVE PERCENT (BEAKER) (test 0 % sbya=709) NEUTROPHILS ABSOLUTE COUNT (BEAKER) (test 6.56 K/ L 1.78-5.38 lmzo=547) LYMPHOCYTES ABSOLUTE COUNT (BEAKER) (test 1.57 K/ L 1.32-3.57 tito=873) MONOCYTES ABSOLUTE COUNT (BEAKER) (test 0.53 K/ L 0.30-0.82 vsuv=601) EOSINOPHILS ABSOLUTE COUNT (BEAKER) (test 0.10 K/ L 0.04-0.54 tble=347) BASOPHILS ABSOLUTE COUNT (BEAKER) (test 0.02 K/ L 0.01-0.08 tkrr=677) IMMATURE GRANULOCYTES-RELATIVE PERCENT (BEAKER) 1 % 0-1 (test hqxm=7893) POCT-GLUCOSE [id number] 22:19:00 Test Item Value Reference Range Comments POC-GLUCOSE METER (BEAKER) 182 mg/dL 70-110 TESTED AT [address] (test iplu=7708) [place] [address] VANCOMYCIN LEVEL, [id number] 21:04:00 Test Item Value Reference Range Comments VANCOMYCIN TROUGH (BEAKER) (test udkc=051) 14.4 ug/mL 10.0-20.0 [id number] 15:16:00 Test Item Value Reference Range Comments ACTIVATED CLOTTING TIME 142 sec [address] (BEAKER[address] (test mjls=863) [place] [id number] 13:53:00 Test Item Value Reference Range Comments ACTIVATED CLOTTING TIME 164 sec TESTED AT [place] [address] [facility] ([facility] (test fdjb=996) [place] [id number] POCT-GLUCOSE [id number] 12:28:00 Test Item Value Reference Range Comments POC-GLUCOSE METER (BEAKER) 217 mg/dL 70-110 TESTED AT [address] (test cxfq=5076) [place] [address] [id number] 12:10:00 Test Item Value Reference Range Comments ACTIVATED CLOTTING TIME 296 sec TESTED AT [address] (BEAKER) (test lgqt=605) [facility] [address] TROPONIN [id number] 09:22:00 Test Item Value Reference Range Comments TROPONIN I (BEAKER) (test dgyz=123) 3.77 ng/mL 0.00-0.03 Troponin I (TnI) levels must be interpreted in the context of the presenting symptoms and the clinical findings. Elevated TnI levels indicate myocardial damage, but are not specific for ischemic heart disease. Elevated TnI levels are seen in patients with other cardiac conditions (including myocarditis and congestive heart failure), and slight TnI elevations occur in patients with other conditions, including sepsis, renal failure, acidosis, acute neurological disease, and persistent tachyarrhythmia.[id number] 05:27:00 Test Item Value Reference Range Comments PARTIAL THROMBOPLASTIN TIME (BEAKER) (test 76.0 seconds 22.5-36.0 iiel=599) [id number] 05:22:00 Test Item Value Reference Range Comments MAGNESIUM (BEAKER) (test guog=933) 2.1 mg/dL 1.6-2.6 BASIC METABOLIC [id number] 05:22:00 Test Item Value Reference Range Comments SODIUM (BEAKER) (test 138 meq/L 136-145 vzpw=158) POTASSIUM (BEAKER) (test 4.0 meq/L 3.5-5.1 krbs=188) CHLORIDE (BEAKER) (test 108 meq/L 98-107 feom=138) CO2 (BEAKER) (test 21 meq/L 22-29 bkgq=046) BLOOD UREA NITROGEN 25 mg/dL 7-21 (BEAKER) (test vnge=350) CREATININE (BEAKER) (test 0.96 mg/dL 0.57-1.25 smqm=098) GLUCOSE RANDOM (BEAKER) 216 mg/dL 70-105 (test qobn=124) CALCIUM (BEAKER) (test 8.4 mg/dL 8.4-10.2 ujmj=977) EGFR (BEAKER) (test 79 mL/min/1.73 sq m ESTIMATED GFR IS NOT lykk=8966) ACCURATE CREATININE CLEARANCE IN PREDICTING GLOMERULAR FILTRATION RATE. ESTIMATED GFR IS NOT APPLICABLE FOR DIALYSIS PATIENTS. RAD, CHEST, 1 VIEW, NON [id number] 04:50:00Reason for exam:->respiratory failureShould this be performed at the bedside?->YesFINAL REPORT CLINICAL INDICATION: Respiratory failure Comparison: 08/30/2018 at 1116 hours The examination is limited by low lung volumes and lordotic positioning. The cardiomediastinal contours are stable. The right hemidiaphragm remains elevated. There is mild central pulmonary vascular prominence. Bilateral perihilar opacities are similar to previous and may reflect atelectasis but pneumonitis should be excluded clinically. There is no pneumothorax. Support lines are stable. Signed: Blair Dang MDReport Verified Date/Time: 09/01/2018 04:50:17 Reading Location: [address] Reading Room Electronically signed by: BLAIR DANG M.D. on 04:50 AMCBC (HEMOGRAM ONLY)2018-09-01 04:39:00 Test Item Value Reference Range Comments WHITE BLOOD CELL COUNT (BEAKER) (test ilnn=879) 9.0 K/ L 3.5-10.5 RED BLOOD CELL COUNT (BEAKER) (test iwuy=176) 4.10 M/ L 4.63-6.08 HEMOGLOBIN (BEAKER) (test gfco=437) 12.3 GM/DL 13.7-17.5 HEMATOCRIT (BEAKER) (test tutw=152) 37.0 % 40.1-51.0 MEAN CORPUSCULAR VOLUME (BEAKER) (test bbvo=880) 90.2 fL 79.0-92.2 MEAN CORPUSCULAR HEMOGLOBIN (BEAKER) (test 30.0 pg 25.7-32.2 nlmy=578) MEAN CORPUSCULAR HEMOGLOBIN CONC (BEAKER) (test 33.2 GM/DL 32.3-36.5 cjim=800) RED CELL DISTRIBUTION WIDTH (BEAKER) (test 13.7 % 11.6-14.4 kmwe=848) PLATELET COUNT (BEAKER) (test idse=363) 207 K/CU MM 150-450 MEAN PLATELET VOLUME (BEAKER) (test jhtk=731) 9.6 fL 9.4-12.4 NUCLEATED RED BLOOD CELLS (BEAKER) (test 0 /100 WBC 0-0 hvfj=173) TROPONIN [id number] 00:59:00 Test Item Value Reference Range Comments TROPONIN I (BEAKER) (test zqni=233) 5.45 ng/mL 0.00-0.03 Troponin I (TnI) levels must be interpreted in the context of the presenting symptoms and the clinical findings. Elevated TnI levels indicate myocardial damage, but are not specific for ischemic heart disease. Elevated TnI levels are seen in patients with other cardiac conditions (including myocarditis and congestive heart failure), and slight TnI elevations occur in patients with other conditions, including sepsis, renal failure, acidosis, acute neurological disease, and persistent tachyarrhythmia.POCT-GLUCOSE [id number] 22:43:00 Test Item Value Reference Range Comments POC-GLUCOSE METER (BEAKER) 177 mg/dL 70-110 TESTED AT [address] (test ifkm=5717) [place] [address] TROPONIN [id number] 18:36:00 Test Item Value Reference Range Comments TROPONIN I (BEAKER) (test gfdj=220) 6.48 ng/mL 0.00-0.03 Troponin I (TnI) levels must be interpreted in the context of the presenting symptoms and the clinical findings. Elevated TnI levels indicate myocardial damage, but are not specific for ischemic heart disease. Elevated TnI levels are seen in patients with other cardiac conditions (including myocarditis and congestive heart failure), and slight TnI elevations occur in patients with other conditions, including sepsis, renal failure, acidosis, acute neurological disease, and persistent tachyarrhythmia.[id number] 18:35:00 Test Item Value Reference Range Comments PARTIAL THROMBOPLASTIN TIME (BEAKER) (test 66.0 seconds 22.5-36.0 siew=137) POCT-GLUCOSE [id number] 16:40:00 Test Item Value Reference Range Comments POC-GLUCOSE METER (BEAKER) 161 mg/dL 70-110 TESTED AT [address] (test jmth=3105) [place] [address] POCT-GLUCOSE [id number] 15:13:00 Test Item Value Reference Range Comments POC-GLUCOSE METER (BEAKER) 149 mg/dL 70-110 TESTED AT [address] (test ufzz=2955) [place] [address] BODY FLUID CELL COUNT WITH [id number] 14:28:00 Test Item Value Reference Range Comments APPEARANCE FLUID (BEAKER) (test xiic=677) Hazy Clear COLOR FLUID (BEAKER) (test xbyw=500) [place] Colorless, Straw RBC FLUID (BEAKER) (test nawa=498) 280 /cu mm <=1 ADJUSTED WBC FLUID (BEAKER) (test bsvl=9425) 139 /cu mm <=5 LINING CELLS (BEAKER) (test yogw=2103) 1 /cu mm <=1 NEUTROPHILS FLUID (BEAKER) (test ccqw=1179) 77 % LYMPHS FLUID (BEAKER) (test otlu=879) 5 % MONO/MACROPHAGE FLUID (BEAKER) (test vqeh=758) 18 % EOSINOPHILS FLUID (BEAKER) (test rbvl=373) 0 % BASO FLUID (BEAKER) (test dlfq=746) 0 % CONTAINER BODY FLUID (BEAKER) (test aunk=4033) EDTA Tube POCT-GLUCOSE [id number] 14:17:00 Test Item Value Reference Range Comments POC-GLUCOSE METER (BEAKER) 121 mg/dL 70-110 TESTED AT [address] (test ejaa=1519) [place] [address] POCT-GLUCOSE [id number] 13:05:00 Test Item Value Reference Range Comments POC-GLUCOSE METER (BEAKER) 176 mg/dL 70-110 TESTED AT [address] (test rxqw=2227) [place] [address] VANCOMYCIN LEVEL, [id number] 13:01:00 Test Item Value Reference Range Comments VANCOMYCIN RANDOM (BEAKER) (test dxow=912) 7.8 ug/mL Reference Range: No NormalsPOCT-GLUCOSE [id number] 12:08:00 Test Item Value Reference Range Comments POC-GLUCOSE METER (BEAKER) 168 mg/dL 70-110 TESTED AT [address] (test bfpg=5675) [place] [address] POCT-GLUCOSE [id number] 10:54:00 Test Item Value Reference Range Comments POC-GLUCOSE METER (BEAKER) 159 mg/dL 70-110 TESTED AT [address] (test czmy=2204) [facility] [address] [id number] 10:01:00 Test Item Value Reference Range Comments PARTIAL THROMBOPLASTIN TIME (BEAKER) (test 44.9 seconds 22.5-36.0 tqbh=935) POCT-GLUCOSE [id number] 09:31:00 Test Item Value Reference Range Comments POC-GLUCOSE METER (BEAKER) 98 mg/dL 70-110 TESTED AT [address] (test uumq=1721) [place] [address] POCT-GLUCOSE [id number] 08:31:00 Test Item Value Reference Range Comments POC-GLUCOSE METER (BEAKER) 118 mg/dL 70-110 TESTED AT [address] (test ytqm=7248) [place] [address] TROPONIN [id number] 08:28:00 Test Item Value Reference Range Comments TROPONIN I (BEAKER) (test iafq=545) 9.00 ng/mL 0.00-0.03 Troponin I (TnI) levels must be interpreted in the context of the presenting symptoms and the clinical findings. Elevated TnI levels indicate myocardial damage, but are not specific for ischemic heart disease. Elevated TnI levels are seen in patients with other cardiac conditions (including myocarditis and congestive heart failure), and slight TnI elevations occur in patients with other conditions, including sepsis, renal failure, acidosis, acute neurological disease, and persistent tachyarrhythmia.POCT-GLUCOSE [id number] 07:13:00 Test Item Value Reference Range Comments POC-GLUCOSE METER (BEAKER) 120 mg/dL 70-110 TESTED AT [address] (test pqiv=8869) [place] [address] POCT-GLUCOSE [id number] 06:10:00 Test Item Value Reference Range Comments POC-GLUCOSE METER (BEAKER) 152 mg/dL 70-110 TESTED AT [address] (test jndi=5468) [place] [address] POCT-GLUCOSE [id number] 05:07:00 Test Item Value Reference Range Comments POC-GLUCOSE METER (BEAKER) 156 mg/dL 70-110 TESTED AT [address] (test oipe=3192) [place] [address] [id number] 04:56:00 Test Item Value Reference Range Comments MAGNESIUM (BEAKER) (test rhfh=178) 1.9 mg/dL 1.6-2.6 BASIC METABOLIC [id number] 04:56:00 Test Item Value Reference Range Comments SODIUM (BEAKER) (test 144 meq/L 136-145 klot=934) POTASSIUM (BEAKER) (test 3.7 meq/L 3.5-5.1 sucl=231) CHLORIDE (BEAKER) (test 109 meq/L 98-107 mcct=803) CO2 (BEAKER) (test 25 meq/L 22-29 dzsh=824) BLOOD UREA NITROGEN 32 mg/dL 7-21 (BEAKER) (test tfci=588) CREATININE (BEAKER) (test 1.12 mg/dL 0.57-1.25 yzbh=169) GLUCOSE RANDOM (BEAKER) 149 mg/dL 70-105 (test cqxe=298) CALCIUM (BEAKER) (test 8.7 mg/dL 8.4-10.2 zvtt=613) EGFR (BEAKER) (test 66 mL/min/1.73 sq m ESTIMATED GFR IS NOT ucsg=8450) ACCURATE CREATININE CLEARANCE IN PREDICTING GLOMERULAR FILTRATION RATE. ESTIMATED GFR IS NOT APPLICABLE FOR DIALYSIS PATIENTS. CBC (HEMOGRAM ONLY)2018-08-31 04:33:00 Test Item Value Reference Range Comments WHITE BLOOD CELL COUNT (BEAKER) (test xahq=976) 11.6 K/ L 3.5-10.5 RED BLOOD CELL COUNT (BEAKER) (test kent=328) 4.00 M/ L 4.63-6.08 HEMOGLOBIN (BEAKER) (test yhoi=563) 12.0 GM/DL 13.7-17.5 HEMATOCRIT (BEAKER) (test yjdy=286) 35.4 % 40.1-51.0 MEAN CORPUSCULAR VOLUME (BEAKER) (test dwtt=516) 88.5 fL 79.0-92.2 MEAN CORPUSCULAR HEMOGLOBIN (BEAKER) (test 30.0 pg 25.7-32.2 zlkr=974) MEAN CORPUSCULAR HEMOGLOBIN CONC (BEAKER) (test 33.9 GM/DL 32.3-36.5 wdkc=425) RED CELL DISTRIBUTION WIDTH (BEAKER) (test 14.0 % 11.6-14.4 wblg=007) PLATELET COUNT (BEAKER) (test uapx=355) 216 K/CU MM 150-450 MEAN PLATELET VOLUME (BEAKER) (test oeae=305) 9.6 fL 9.4-12.4 NUCLEATED RED BLOOD CELLS (BEAKER) (test 0 /100 WBC 0-0 jyoa=364) BLOOD GAS, [id number] 04:21:00 Test Item Value Reference Range Comments PH ARTERIAL (BEAKER) (test jysg=375) 7.45 7.35-7.45 PCO2 ARTERIAL (BEAKER) (test enjq=087) 38 mmHg 35-45 PO2 ARTERIAL (BEAKER) (test wqbf=447) 75 mmHg 80-90 O2 SATURATION ARTERIAL (BEAKER) (test cjiw=356) 95.6 % 96.0-97.0 HCO3 ARTERIAL (BEAKER) (test egba=364) 26 mmol/L 21-29 BASE EXCESS ARTERIAL (BEAKER) (test zluc=783) 1.6 mmol/L -2.0-3.0 PATIENT TEMPERATURE (BEAKER) (test buwc=1656) 36.9 C FIO2 (BEAKER) (test askn=7529) 60.0 % POCT-GLUCOSE [id number] 04:10:00 Test Item Value Reference Range Comments POC-GLUCOSE METER (BEAKER) 142 mg/dL 70-110 TESTED AT [address] (test zeld=5945) [place] [address] POCT-GLUCOSE [id number] 03:03:00 Test Item Value Reference Range Comments POC-GLUCOSE METER (BEAKER) 129 mg/dL 70-110 TESTED AT [address] (test mdog=4063) [place] [address] [id number] 02:39:00 Test Item Value Reference Range Comments PARTIAL THROMBOPLASTIN TIME (BEAKER) (test 61.7 seconds 22.5-36.0 qyxn=270) POCT-GLUCOSE [id number] 02:05:00 Test Item Value Reference Range Comments POC-GLUCOSE METER (BEAKER) 108 mg/dL 70-110 TESTED AT [address] (test aacv=9771) [place] [address] POCT-GLUCOSE [id number] 01:28:00 Test Item Value Reference Range Comments POC-GLUCOSE METER (BEAKER) 93 mg/dL 70-110 TESTED AT [address] (test qnvv=6527) [place] [address] TROPONIN [id number] 01:04:00 Test Item Value Reference Range Comments TROPONIN I (BEAKER) (test oone=707) 11.40 ng/mL 0.00-0.03 Troponin I (TnI) levels must be interpreted in the context of the presenting symptoms and the clinical findings. Elevated TnI levels indicate myocardial damage, but are not specific for ischemic heart disease. Elevated TnI levels are seen in patients with other cardiac conditions (including myocarditis and congestive heart failure), and slight TnI elevations occur in patients with other conditions, including sepsis, renal failure, acidosis, acute neurological disease, and persistent tachyarrhythmia.BLOOD GAS, [id number] 00:14:00 Test Item Value Reference Range Comments PH ARTERIAL (BEAKER) (test fnsb=016) 7.50 7.35-7.45 PCO2 ARTERIAL (BEAKER) (test eyms=199) 36 mmHg 35-45 PO2 ARTERIAL (BEAKER) (test qrwk=258) 56 mmHg 80-90 O2 SATURATION ARTERIAL (BEAKER) (test ereg=338) 92.1 % 96.0-97.0 HCO3 ARTERIAL (BEAKER) (test ihiu=978) 27 mmol/L 21-29 BASE EXCESS ARTERIAL (BEAKER) (test eefn=981) 4.0 mmol/L -2.0-3.0 PATIENT TEMPERATURE (BEAKER) (test iqgj=4441) 36.7 C FIO2 (BEAKER) (test qmlz=9418) 40.0 % POCT-GLUCOSE [id number] 00:10:00 Test Item Value Reference Range Comments POC-GLUCOSE METER (BEAKER) 124 mg/dL 70-110 TESTED AT [address] (test qgwp=2017) [place] [address] POCT-GLUCOSE [id number] 23:27:00 Test Item Value Reference Range Comments POC-GLUCOSE METER (BEAKER) 111 mg/dL 70-110 TESTED AT [address] (test rkzd=8494) [facility] [address] POCT-GLUCOSE [id number] 22:06:00 Test Item Value Reference Range Comments POC-GLUCOSE METER (BEAKER) 131 mg/dL 70-110 TESTED AT [address] (test hqch=3953) [place] [address] POCT-GLUCOSE [id number] 21:05:00 Test Item Value Reference Range Comments POC-GLUCOSE METER (BEAKER) 145 mg/dL 70-110 TESTED AT [address] (test dxja=4141) [place] [address] POCT-GLUCOSE [id number] 20:18:00 Test Item Value Reference Range Comments POC-GLUCOSE METER (BEAKER) 154 mg/dL 70-110 TESTED AT [address] (test bbrz=5743) [place] [address] [id number] 19:55:00 Test Item Value Reference Range Comments PARTIAL THROMBOPLASTIN TIME (BEAKER) (test 50.2 seconds 22.5-36.0 flcc=160) POCT-GLUCOSE [id number] 19:07:00 Test Item Value Reference Range Comments POC-GLUCOSE METER (BEAKER) 182 mg/dL 70-110 TESTED AT [address] (test rcol=0936) [place] [address] POCT-GLUCOSE [id number] 18:03:00 Test Item Value Reference Range Comments POC-GLUCOSE METER (BEAKER) 201 mg/dL 70-110 TESTED AT [address] (test tjip=8879) [place] [address] PUL PERF IMAGING, PARTIC, [id number] 17:23:00FINAL REPORT PROCEDURE: V/Q LUNG SCAN CPT CODE: 85168 INDICATION: Chest pain PA suspected high pretest probability with JORGE PROTOCOL: 10.2 mCi of Xe-133 gas was administered by inhalation. Rebreathing/washout images were obtained in the anterior and the posterior projections. 4.2 mCi of Tc-99m MAA was then injected intravenously, and static perfusion images were obtained in multiple projections. FINDINGS: Ventilation: Initial tracer distributionshows a widened mediastinum and decreased irregular right lung activity. Washout proceeds normally.Perfusion: Tracer distribution matches. IMPRESSION: 1. Low probability of acute pulmonary embolization.2. The findings are suggestive of parenchymal lung disease.. Signed: Elmo Carvalho Verified Date/Time: 08/30/2018 17:23:41 Reading Location: [address] Reading Room POCT-GLUCOSE [id number] 17:03:00 Test Item Value Reference Range Comments POC-GLUCOSE METER (BEAKER) 230 mg/dL 70-110 TESTED AT [address] (test gzpa=7042) [place] [address] POCT-GLUCOSE [id number] 16:13:00 Test Item Value Reference Range Comments POC-GLUCOSE METER (YADIEL) 255 mg/dL 70-110 TESTED AT [facility] [address] (test vxjt=5830) [facility] [address] TROPONIN [id number] 16:01:00 Test Item Value Reference Range Comments TROPONIN I (BEAKER) (test zzye=956) 14.68 ng/mL 0.00-0.03 Troponin I (TnI) levels must be interpreted in the context of the presenting symptoms and the clinical findings. Elevated TnI levels indicate myocardial damage, but are not specific for ischemic heart disease. Elevated TnI levels are seen in patients with other cardiac conditions (including myocarditis and congestive heart failure), and slight TnI elevations occur in patients with other conditions, including sepsis, renal failure, acidosis, acute neurological disease, and persistent tachyarrhythmia.CT, CHEST, WITHOUT [id number] 15 :10:00FINAL REPORT HISTORY: Acute resp illness, >40yo COMPARISON [...] spine are seen. There are some old right -sided rib fractures. No pneumothorax or pleural effusion is seen. There are bibasilar consolidations that may represent atelectasis. Pneumonitis oraspiration cannot be excluded. There also appears to be complete atelectasis/ collapse of the right upper lobe. A central [...] may be considered. 3. Minimal patchy airspace diseasein the right middle lobe. Findings could represent atelectasis, pneumonitis or aspiration. 4. Cardiomegaly. Signed: Bryon Sainz Verified Date/Time: 08/30/2018 15:10:22 Reading Location: [facility] Reading Room - [place] [id number] Electronically signed by: BRYON SAINZ M.D. on08/30/2018 03:10 PMPOCT-GLUCOSE [id number] 14:57:00 Test Item Value Reference Range Comments POC-GLUCOSE METER (BEAKER) 273 mg/dL 70-110 TESTED AT [place] [id number] [facility] (test cfss=3918) [place] [address] POCT-GLUCOSE [id number] 13:10:00 Test Item Value Reference Range Comments POC-GLUCOSE METER (BEAKER) 232 mg/dL 70-110 TESTED AT [place] [id number] [facility] (test jarj=5641) [facility] [address] RAD, ABDOMEN/KUB, 1 VIEW [id number] 12:44:00Reason for exam:->abdominal distensionFINAL REPORT Two frontal images abdomen and pelvis. NG tube loops in the proximal stomach. There is a paucity of visible small bowel gas but no grossly apparent bowel obstruction. No evidence of free intraperitoneal air. Degenerative spine changes are noted. No concerning calcification. Signed: Mark Parsons Verified Date/Time: 08/30/2018 12: 44:32 Reading Location: [facility] Reading Room [id number] 12:08:00 Test Item Value Reference Range Comments PARTIAL THROMBOPLASTIN TIME (BEAKER) (test 45.2 seconds 22.5-36.0 pbmk=058) POCT-GLUCOSE [id number] 12:05:00 Test Item Value Reference Range Comments POC-GLUCOSE METER (BEAKER) 238 mg/dL 70-110 TESTED AT [address] (test clyo=8516) [facility] [address] RAD, CHEST, 1 VIEW, NON [id number] 11:56:00Reason for exam:->ET tube manipulationShould this be performed at the bedside?->YesFINAL REPORT Chest one view compared to August 30, 2018 Discussion: ET tube tip at the thoracic inlet. NG tube extends into the stomach. Right IJ line unchanged. There is elevation right hemidiaphragm with opacity right lung base nonspecific. Generalized cardiac mediastinal prominence is unchanged. No gross effusion although I could not exclude small right effusion. No pneumothorax. Signed: Mark Parsons Verified Date/Time: 08/30/2018 11: 56:52 Reading Location: [facility] Reading Room POCT- GLUCOSE [id number] 11:05:00 Test Item Value Reference Range Comments POC-GLUCOSE METER (BEAKER) 275 mg/dL 70-110 TESTED AT [address] (test ekju=4131) [place] [address] LACTIC ACID, ARTERIAL, WHOLE [id number] 09:50:00 Test Item Value Reference Range Comments LACTATE BLOOD ARTERIAL (2) (BEAKER) (test 1.6 mmol/L 0.5-2.2 oycc=5928) Effective 03/02/2016: Units/Reference Range ChangeNew: 0.5-2.2 mmol/L Previous: 5 -20 mg/dLPOCT-GLUCOSE [id number] 09:44:00 Test Item Value Reference Range Comments POC-GLUCOSE METER (BEAKER) 297 mg/dL 70-110 TESTED AT [address] (test xhvg=6389) [place] [address] TROPONIN [id number] 09:34:00 Test Item Value Reference Range Comments TROPONIN I (BEAKER) (test panz=965) 19.27 ng/mL 0.00-0.03 Troponin I (TnI) levels must be interpreted in the context of the presenting symptoms and the clinical findings. Elevated TnI levels indicate myocardial damage, but are not specific for ischemic heart disease. Elevated TnI levels are seen in patients with other cardiac conditions (including myocarditis and congestive heart failure), and slight TnI elevations occur in patients with other conditions, including sepsis, renal failure, acidosis, acute neurological disease, and persistent tachyarrhythmia.OXYGEN SATURATION, [id number] 08 :54:00 Test Item Value Reference Range Comments O2 SATURATION (MEASURED) (BEAKER) (test qome=8875) 74.7 % POCT-GLUCOSE [id number] 08:33:00 Test Item Value Reference Range Comments POC-GLUCOSE METER (BEAKER) 345 mg/dL 70-110 TESTED AT [address] (test bllk=5948) [place] [address] POCT-GLUCOSE [id number] 07:42:00 Test Item Value Reference Range Comments POC-GLUCOSE METER (BEAKER) 305 mg/dL 70-110 Notified MILLA CARPENTER/TESTED AT [facility] (test sluy=6798) [address] [place] [address] POCT-GLUCOSE [id number] 07:42:00 Test Item Value Reference Range Comments POC-GLUCOSE METER (BEAKER) 309 mg/dL 70-110 TESTED AT [address] (test ktta=8816) [facility] [address] URINALYSIS W/ REFLEX URINE [id number] 07:35:00 Test Item Value Reference Range Comments COLOR (BEAKER) (test mkqu=823) Light Yellow CLARITY (BEAKER) (test qhqb=256) Clear SPECIFIC GRAVITY UA (BEAKER) (test zbsd=170) 1.017 1.001-1.035 PH UA (BEAKER) (test clrl=898) 5.0 5.0-8.0 PROTEIN UA (BEAKER) (test payz=632) Negative Negative GLUCOSE UA (BEAKER) (test wemp=094) >1000 mg/dL Negative KETONES UA (BEAKER) (test wutl=834) 10 mg/dL Negative BILIRUBIN UA (BEAKER) (test kpwq=550) Negative Negative BLOOD UA (BEAKER) (test hzqu=438) Negative Negative NITRITE UA (BEAKER) (test xvrh=413) Negative Negative LEUKOCYTE ESTERASE UA (BEAKER) (test uprz=481) Negative Negative UROBILINOGEN UA (BEAKER) (test lsoc=753) 0.2 mg/dL 0.2-1.0 RBC UA (BEAKER) (test dqkz=422) 3 /HPF WBC UA (BEAKER) (test qprk=181) 2 /HPF MUCUS (BEAKER) (test cbru=7274) Rare AMORPHOUS CRYSTALS (BEAKER) (test uitz=9444) Rare SOURCE(BEAKER) (test ehlu=8937) [id number] 05:48:00 Test Item Value Reference Range Comments PROCALCITONIN (BEAKER) (test wdan=0993) 0.26 ng/mL <0.05 SEPSIS RISK (ng/mL)Low: 0.05-0.50Intermediate: 0.51-2.00High: & gt;=2.01LACTIC ACID, ARTERIAL, WHOLE [id number] 04:44:00 Test Item Value Reference Range Comments LACTATE BLOOD ARTERIAL (2) 1.7 mmol/L 0.5-2.2 Specimen slightly hemolyzed (BEAKER) (test rewr=0892) Effective 03/02/2016: Units/Reference Range ChangeNew: 0.5-2.2 mmol/L Previous: 5 -20 mg/dLBLOOD GAS, [id number] 04:42:00 Test Item Value Reference Range Comments PH ARTERIAL (BEAKER) (test zdiq=202) 7.40 7.35-7.45 PCO2 ARTERIAL (BEAKER) (test uhey=241) 35 mmHg 35-45 PO2 ARTERIAL (BEAKER) (test xcto=118) 101 mmHg 80-90 O2 SATURATION ARTERIAL (BEAKER) (test rstu=885) 97.7 % 96.0-97.0 HCO3 ARTERIAL (BEAKER) (test ffjx=094) 21 mmol/L 21-29 BASE EXCESS ARTERIAL (BEAKER) (test bznp=445) -3.0 mmol/L -2.0-3.0 PATIENT TEMPERATURE (BEAKER) (test dnoh=3868) 36.9 C FIO2 (BEAKER) (test oxfj=0489) 50.0 % [id number] 04:40:00 Test Item Value Reference Range Comments POTASSIUM (BEAKER) (test imjf=202) 4.3 meq/L 3.5-5.1 [id number] 04:40:00 Test Item Value Reference Range Comments GLUCOSE RANDOM (BEAKER) (test pzej=268) 365 mg/dL 70-105 POCT-GLUCOSE [id number] 04:37:00 Test Item Value Reference Range Comments POC-GLUCOSE METER (BEAKER) 370 mg/dL 70-110 TESTED AT [facility] [address] [facility] (test dczr=3744) [place] [address] [id number] 04:34:00 Test Item Value Reference Range Comments PARTIAL THROMBOPLASTIN TIME (BEAKER) (test 30.2 seconds 22.5-36.0 iujg=648) Prior to initiating heparinPLATELET [id number] 04:15:00 Test Item Value Reference Range Comments PLATELET COUNT (BEAKER) (test zxdy=547) 284 K/CU MM 150-450 Baseline and daily starting prior to initiation of heparin infusionCBC ( HEMOGRAM ONLY)2018-08-30 04:15:00 Test Item Value Reference Range Comments WHITE BLOOD CELL COUNT (BEAKER) (test uqof=877) 16.6 K/ L 3.5-10.5 RED BLOOD CELL COUNT (BEAKER) (test oiey=537) 4.25 M/ L 4.63-6.08 HEMOGLOBIN (BEAKER) (test hbbl=209) 13.1 GM/DL 13.7-17.5 HEMATOCRIT (BEAKER) (test ffre=442) 37.6 % 40.1-51.0 MEAN CORPUSCULAR VOLUME (BEAKER) (test chba=752) 88.5 fL 79.0-92.2 MEAN CORPUSCULAR HEMOGLOBIN (BEAKER) (test 30.8 pg 25.7-32.2 sudb=354) MEAN CORPUSCULAR HEMOGLOBIN CONC (BEAKER) (test 34.8 GM/DL 32.3-36.5 dvef=235) RED CELL DISTRIBUTION WIDTH (BEAKER) (test 13.6 % 11.6-14.4 zcyh=846) PLATELET COUNT (BEAKER) (test zpdz=717) 284 K/CU MM 150-450 MEAN PLATELET VOLUME (BEAKER) (test vatx=263) 9.6 fL 9.4-12.4 NUCLEATED RED BLOOD CELLS (BEAKER) (test 0 /100 WBC 0-0 wcrz=057) TSH/FREE T4 IF [id number] 03:00:00 Test Item Value Reference Range Comments THYROID STIMULATING HORMONE (BEAKER) (test 0.92 uIU/mL 0.35-4.94 qswh=177) TROPONIN [id number] 02:51:00 Test Item Value Reference Range Comments TROPONIN I (BEAKER) (test clff=791) 24.37 ng/mL 0.00-0.03 Troponin I (TnI) levels must be interpreted in the context of the presenting symptoms and the clinical findings. Elevated TnI levels indicate myocardial damage, but are not specific for ischemic heart disease. Elevated TnI levels are seen in patients with other cardiac conditions (including myocarditis and congestive heart failure), and slight TnI elevations occur in patients with other conditions, including sepsis, renal failure, acidosis, acute neurological disease, and persistent tachyarrhythmia.B-TYPE NATRIURETIC FACTOR (BNP) 02:45:00 Test Item Value Reference Range Comments B-TYPE NATRIURETIC PEPTIDE (BEAKER) (test dnda=937) 63 pg/mL 0-100 [id number] 02:44:00 Test Item Value Reference Range Comments PARTIAL THROMBOPLASTIN TIME (BEAKER) (test 28.2 seconds 22.5-36.0 xyqp=483) Prior to initiating heparinCBC W/PLT COUNT & AUTO [id number] 02: 41:00 Test Item Value Reference Range Comments WHITE BLOOD CELL COUNT (BEAKER) (test hbxi=596) 13.4 K/ L 3.5-10.5 RED BLOOD CELL COUNT (BEAKER) (test lzhm=774) 4.05 M/ L 4.63-6.08 HEMOGLOBIN (BEAKER) (test lrax=355) 12.6 GM/DL 13.7-17.5 HEMATOCRIT (BEAKER) (test lhbs=636) 36.4 % 40.1-51.0 MEAN CORPUSCULAR VOLUME (BEAKER) (test wosq=464) 89.9 fL 79.0-92.2 MEAN CORPUSCULAR HEMOGLOBIN (BEAKER) (test 31.1 pg 25.7-32.2 cwlj=906) MEAN CORPUSCULAR HEMOGLOBIN CONC (BEAKER) (test 34.6 GM/DL 32.3-36.5 kekj=795) RED CELL DISTRIBUTION WIDTH (BEAKER) (test 13.7 % 11.6-14.4 rokw=728) PLATELET COUNT (BEAKER) (test ektm=820) 223 K/CU MM 150-450 MEAN PLATELET VOLUME (BEAKER) (test iciy=179) 9.9 fL 9.4-12.4 NUCLEATED RED BLOOD CELLS (BEAKER) (test 0 /100 WBC 0-0 cbmg=273) NEUTROPHILS RELATIVE PERCENT (BEAKER) (test 94 % nyow=629) LYMPHOCYTES RELATIVE PERCENT (BEAKER) (test 5 % wfpf=205) MONOCYTES RELATIVE PERCENT (BEAKER) (test 1 % cdyk=533) EOSINOPHILS RELATIVE PERCENT (BEAKER) (test 0 % qshh=404) BASOPHILS RELATIVE PERCENT (BEAKER) (test 0 % begw=222) NEUTROPHILS ABSOLUTE COUNT (BEAKER) (test 12.52 K/ L 1.78-5.38 uvge=327) LYMPHOCYTES ABSOLUTE COUNT (BEAKER) (test 0.61 K/ L 1.32-3.57 opxk=096) MONOCYTES ABSOLUTE COUNT (BEAKER) (test 0.12 K/ L 0.30-0.82 vdqe=469) EOSINOPHILS ABSOLUTE COUNT (BEAKER) (test 0.00 K/ L 0.04-0.54 jpum=271) BASOPHILS ABSOLUTE COUNT (BEAKER) (test 0.01 K/ L 0.01-0.08 yeal=882) IMMATURE GRANULOCYTES-RELATIVE PERCENT (BEAKER) 1 % 0-1 (test rlcp=5319) [id number] 02:39:00 Test Item Value Reference Range Comments LIPASE (BEAKER) (test pyod=000) 14 U/L 8-78 COMPREHENSIVE METABOLIC [id number] 02:39:00 Test Item Value Reference Range Comments TOTAL PROTEIN (BEAKER) 6.2 gm/dL 6.0-8.3 (test wmoe=259) ALBUMIN (BEAKER) (test 3.5 g/dL 3.5-5.0 bcve=8391) ALKALINE PHOSPHATASE 31 U/L 40-150 (BEAKER) (test kkoc=206) BILIRUBIN TOTAL (BEAKER) 0.5 mg/dL 0.2-1.2 (test sxeo=549) SODIUM (BEAKER) (test 138 meq/L 136-145 bxvo=964) POTASSIUM (BEAKER) (test 4.3 meq/L 3.5-5.1 tawh=268) CHLORIDE (BEAKER) (test 104 meq/L 98-107 wqxl=153) CO2 (BEAKER) (test 22 meq/L 22-29 reyd=333) BLOOD UREA NITROGEN 27 mg/dL 7-21 (BEAKER) (test ekcx=687) CREATININE (BEAKER) (test 1.49 mg/dL 0.57-1.25 ymyf=351) GLUCOSE RANDOM (BEAKER) 339 mg/dL 70-105 (test yikp=043) CALCIUM (BEAKER) (test 8.8 mg/dL 8.4-10.2 rfgq=616) AST (SGOT) (BEAKER) (test 91 U/L 5-34 hszf=[id number]) ALT (SGPT) (BEAKER) (test 21 U/L 6-55 gxyl=468) EGFR (BEAKER) (test 47 mL/min/1.73 sq m ESTIMATED GFR IS NOT zgow=[id number]) ACCURATE CREATININE CLEARANCE IN PREDICTING GLOMERULAR FILTRATION RATE. ESTIMATED GFR IS NOT APPLICABLE FOR DIALYSIS PATIENTS. [id number] 02:39:00 Test Item Value Reference Range Comments MAGNESIUM (BEAKER) (test hkot=617) 1.9 mg/dL 1.6-2.6 LACTIC ACID, VENOUS, WHOLE [id number] 02:34:00 Test Item Value Reference Range Comments LACTATE BLOOD VENOUS (2) 2.8 mmol/L 0.5-2.2 Specimen slightly hemolyzed (BEAKER) (test hjul=0746) Effective 03/02/2016: Units/Reference Range ChangeNew: 0.5-2.2 mmol/L Previous: 5 -20 mg/dLPLATELET [id number] 02:14:00 Test Item Value Reference Range Comments PLATELET COUNT (BEAKER) (test vckl=712) 223 K/CU MM 150-450 RAD, CHEST, 1 VIEW, NON [id number] 01:50:00Reason for exam:->lines placement Should this be performed at the bedside?->YesFINAL REPORT RAD, CHEST, 1 VIEW, NON DEPT INDICATION: lines placement COMPARISON: None available FINDINGS: Portable frontal view of the chest. IMPRESSION: Support Lines: Endotracheal tube terminates at the level of the alycia, pointed towards the right mainstem bronchus recommend retracting 3-4 cm. There is an enteric tube seen coursing below the diaphragm, looping within the location of the gastric fundus, point of termination below the inferior margin of the film. Right IJ central venous catheter with tip overlying the cavoatrial junction. Lungs and pleura: Low lung volumes with bilateral lower lobe atelectasis. Small bilateral pleural effusions. No pneumothorax. Heart and mediastinum: Largely obscured by atelectasis in the lung volumes however grossly within normal limits.Additional findings: None. The findings were discussed with nurse Contreras on 6S CCU 2 at the timeof dictation who will relay them to the physician. Signed: Ozzie Avila MDRepumair Verified Date/Time : 08/30/2018 01:50:34 Reading Location: [address] Transitional Reading Room
[2019-02-05] MEDS ORDERED: NA CHLORIDE 0.9% 1,000 ML ONE (12:44)
[2019-02-05] MEDS ORDERED: D50W 25 GM/50 ML SYRINGE IV ONE ×2 (12:44→14:31)
[2019-02-05 13:00] LABS: Absolute Monocytes 0.6 K/uL (0.1-1.3); Absolute Neutrophil 5.6 K/uL (1.8-8.0); Basophils % 1.5 % (0-1.3); Eosinophils % 1.7 % (0-4.4); Hematocrit 36.8 % (39.6-49.0); Lymphocytes % 31.3 % (15.3-44.8); MPV 7.8 fL (7.6-11.3); Monocytes % 6.1 % (3.3-12.3); RBC Red Blood Cell Count 4.12 M/uL (4.33-5.43)
[2019-02-05 13:07] LABS: Arterial Blood Carboxyhemoglob 1.5 % (0-1.5); Blood Gas Oxyhemoglobin 94.6 % (94-97); Blood O2 Saturation 96.8 % (92-98.5)
[2019-02-05 13:25] LABS: ALT/SGPT 32 U/L (12-78); AST/SGOT 24 U/L (15-37); Albumin 3.5 g/dL (3.4-5.0); Alkaline Phosphatase 78 U/L (45-117); BUN Blood Urea Nitrogen 35 mg/dL (7-18); Bicarbonate 24 mmol/L (21-32); Bilirubin Direct < 0.1 mg/dL (0-0.2); Bilirubin Total 0.3 mg/dL (0.2-1.0); Glucose Level 53 mg/dL (74-106); Magnesium 2.1 mg/dL (1.8-2.4); NT PRO-BNP 95 pg/mL (<125); Potassium 3.8 mmol/L (3.5-5.1); Protein, Total 7.7 g/dL (6.4-8.2); Sodium Level 141 mmol/L (136-145); Troponin (Emerg Dept Use Only) < 0.02 ng/mL (0.0-0.045)
--- NOTE | 2019-02-05 13:37 | RAD REPORT ---
EXAM DESCRIPTION: RAD - Chest Single View - 02/05/2019 1:30 pm CLINICAL HISTORY: DYSPNEA Chest pain. COMPARISON: Chest Single View dated 12/12/2018; Chest Single View dated 08/29/2018; Chest Single View dated 08/29/2018; Chest Single View dated 08/22/2018 FINDINGS: Portable technique limits examination quality. Chronically elevated right hemidiaphragm noted, unchanged. The lungs appear grossly clear. The heart is mildly prominent in size. No displaced fractures.
--- NOTE | 2019-02-05 13:48 | ER ---
Nurse's Notes [facility] Name: Asim Burnett Age: 63 yrs Sex: Male : 1955 Arrival Date: 02/05/2019 Time: 12:00 Bed 3 Private MD: Bebeto Jaffe H Diagnosis: Hypotension;Acidosis;Altered mental status, unspecified Presentation: 02/05 12:09 Presenting complaint: Pt's states "His blood pressure has been low for about 3 aa5 weeks but today it was around 80 (systolic)". Pt is drowsy in triage but A\\T\\O x 3. Transition of care: patient was not received from another setting of care. Onset of symptoms was 2018. Care prior to arrival: None. 12:09 Method Of Arrival: Wheelchair aa5 12:09 Acuity: ORACIO 2 aa5 13:06 Risk Assessment: Do you want to hurt yourself or someone else? Patient reports no jl7 desire to harm self or others. Initial Sepsis Screen: Does the patient meet any 2 criteria? RR > 20 per min. Systolic BP < 90 mmHg. Yes Does the patient have a suspected source of infection? No. Patient's initial sepsis screen is negative. Historical: - Allergies: 12:10 Ibuprofen; aa5 - PMHx: 12:10 Anxiety; cardiac stent; COPD; Depression; Diabetes - IDDM; High Cholesterol; aa5 Hypertension; Myocardial infarction; - Immunization history:: Adult Immunizations unknown. - Social history:: Smoking status: Patient/guardian denies using tobacco. - Ebola Screening: : No symptoms or risks identified at this time. Screenin:06 Abuse screen: Denies threats or abuse. Denies injuries from another. Nutritional jl7 screening: No deficits noted. Tuberculosis screening: No symptoms or risk factors identified. Fall Risk IV access (20 points). Gait- Weak (10 pts.). Total Hodges Fall Scale indicates Low Risk Score (25-44 pts). Fall prevention measures have been instituted. Side Rails Up X 2 Placed close to Nursing Station Frequent Obs/Assesments occuring Family Present and informed to notify staff if they need to leave bedside As available Patient and Family Educated on Fall Prevention Program and strategies. Assessment: 12:58 General: Appears distressed, uncomfortable, Behavior is cooperative, appropriate for jl7 age, drowsy. Pain: Denies pain. Neuro: Level of Consciousness is awake, alert, obeys commands, Oriented to person, place, time, situation. Cardiovascular: Heart tones present Rhythm is sinus rhythm. Respiratory: Airway is patent Respiratory effort is even, unlabored, shallow, Respiratory pattern is regular, symmetrical, Breath sounds are clear bilaterally. GI: No signs and/or symptoms were reported involving the gastrointestinal system. : No signs and/or symptoms were reported regarding the genitourinary system. EENT: No signs and/or symptoms were reported regarding the EENT system. Derm: Skin is dry, Skin is pale, Skin temperature is warm. Musculoskeletal: No signs and/or symptoms reported regarding the musculoskeletal system. 19:00 Reassessment: Patient appears in no apparent distress at this time. Patient and/or tl2 family updated on plan of care and expected duration. Pain level reassessed. Patient is alert, oriented x 3, equal unlabored respirations, skin warm/dry/pink. Reassessment: Pt has been ER hold, now has room assignment. Will call report at 1930. General: Behavior is cooperative, appropriate for age, drowsy. Pain: Denies pain. Neuro: Level of Consciousness is awake, alert, obeys commands, Oriented to person, place, time, situation. Cardiovascular: Rhythm is sinus rhythm. Respiratory: Airway is patent Respiratory effort is even, unlabored, Respiratory pattern is regular, symmetrical. GI: No signs and/or symptoms were reported involving the gastrointestinal system. Derm: Skin is pale, Skin temperature is cool. Vital Signs: 12:10 BP 83 / 54; Pulse 69; Resp 16 S; Temp 98.2(TE); Pulse Ox 95% on R/A; aa5 12:30 BP 82 / 61; Pulse 69; Resp 24 S; Pulse Ox 96% on 2 lpm NC; jl7 12:45 BP 80 / 54; Pulse 71; Resp 27 S; Pulse Ox 99% on 2 lpm NC; jl7 13:05 BP 100 / 62; Pulse 66; Resp 23 S; Pulse Ox 100% on R/A; jl7 13:15 BP 98 / 62; Pulse 68; Resp 22 S; Pulse Ox 100% on 2 lpm NC; jl7 13:30 BP 90 / 54; Pulse 67; Resp 24 S; Pulse Ox 100% on 2 lpm NC; jl7 13:45 BP 82 / 51; Pulse 67; Resp 21 S; Pulse Ox 99% on 2 lpm NC; jl7 14:00 BP 78 / 43; Pulse 66; Resp 24 S; Pulse Ox 100% on 2 lpm NC; jl7 14:15 BP 75 / 48; Pulse 65; Resp 23 S; Pulse Ox 100% on 2 lpm NC; jl7 14:15 BP 65 / 44; Pulse 63; Resp 24 S; Pulse Ox 98% on 2 lpm NC; jl7 15:00 BP 93 / 65; Pulse 60; Resp 24 S; Pulse Ox 100% on 2 lpm NC; jl7 15:39 BP 115 / 66; Pulse 61; Resp 17 S; Pulse Ox 100% on 2 lpm NC; jl7 [place] Coma Score: 13:14 Eye Response: to voice(3). Verbal Response: oriented(5). Motor Response: obeys jr8 commands(6). Total: 14. ED Course: 12:00 Patient arrived in ED. rg4 12:01 Bebeto Jaffe DO is Private Physician. rg4 12:09 Arm band placed on. aa5 12:10 Triage completed. aa5 12:12 Xu Lowry MD is Attending Physician. rn 12:26 Reji Santoro PA is PHCP. jr8 12:30 Initial lab(s) drawn, by me, sent to lab. First set of blood cultures drawn by me. jl7 Inserted saline lock: 22 gauge in left hand, using aseptic technique. Blood collected. 12:42 EKG done, by biological science technician. reviewed by Reji SCHWARZ. at1 12:45 Inserted saline lock: 20 gauge in left antecubital area, using aseptic technique. Blood jl7 collected. 12:45 Second set of blood cultures drawn. jl7 12:52 Trevor Cavazos RN is Primary Nurse. jl7 13:06 Patient has correct armband on for positive identification. Placed in gown. Bed in low jl7 position. Call light in reach. Side rails up X2. case monitor on. Pulse ox on. NIBP on. Warm blanket given. 13:29 X-ray completed. Portable x-ray completed in exam room. Patient tolerated procedure sw well. 13:30 XRAY Chest (1 view) In Process Unspecified. EDMS 13:46 Hansa Sahu MD is Hospitalizing Provider. jr8 14:50 Radiology exam delayed due to getting central line placed at is time. nj 15:00 Assisted provider with central line placement. Set up central line tray. Triple lumen jl7 line placed in right femoral. Line placed by Reji SCHWARZ Placement verified by blood return, Dressed with Tape, Tegaderm, Blood was collected. Patient tolerated well. Before procedure, did Practitioner(s) obtain informed consent? Yes. Patient \\T\\ family education about procedure, CLABSI prevention and S/S of infection? Yes. Time-out/Briefing performed prior to start of procedure? Yes. Was handwashing/sanitizing done immediately prior to procedure? Yes. Was patient positioned to in a way to prevent air embolism? Yes. Was procedure site sterilized? Yes, with chlorhexidine. Was the site allowed to dry? Yes. Was local anesthetic and/or sedation utilized? Yes. During the procedure, did the Practitioner(s) maintain a sterile field? Yes. Were unused ports clamped during insertion? Yes. Was a 2nd qualified MD obtained after 3 unsuccessful insertion attempts? No. Was blood aspirated from each lumen? Yes. After the procedure, did the Practitioner(s) clean the site and apply a sterile dressing? Yes. 15:23 CT completed. Patient tolerated procedure well. Patient moved to [place]. Patient moved back de from CT. 16:37 pt blood sugar \\T\\ 400pm 77 pt blood sugar \\T\\ 430pm 126 milla scales notified. kj 1 18:06 pt blood sugar \\T\\1745 219 MILLA Scales notified. kj1 19:44 Primary Nurse role handed off by Trevor Cavazos, MILLA ed1 Administered Medications: 12:40 Drug: NS 0.9% 1000 ml Route: IV; Rate: 1000 ml; Site: left antecubital; jl7 13:30 Follow up: IV Status: Completed infusion; IV Intake: 1000ml jl7 12:41 Drug: D50W 25 ml Route: IVP; Site: left antecubital; jl7 12:57 Follow up: Response: No adverse reaction; Blood sugar is elevated jl7 14:25 Drug: Lactated Ringers Solution 1000 ml Route: IV; Rate: bolus; Site: left hand; jl7 15:30 Follow up: IV Status: Completed infusion; IV Intake: 1000ml jl7 14:30 Drug: D50W 50 ml Route: IVP; Site: left antecubital; jl7 15:00 Follow up: Response: No adverse reaction; Blood sugar is elevated jl7 14:31 Not Given (Duplicate Order): Lactated Ringers Solution 1000 ml IV at 150 ml/hr jl7 continuous 14:33 CANCELLED (Duplicate Order): D5-NS 1000 ml IV at 125 ml/hr continuous jl7 14:35 Drug: D5-NS 1000 ml Route: IV; Rate: 100 ml/hr; Site: left antecubital; jl7 18:03 Follow up: Response: No adverse reaction; IV Status: Order to discontinue infusion jl7 14:42 CANCELLED (Duplicate Order): Solu-CORTEF 100 mg IVP once jl7 14:43 CANCELLED (Duplicate Order): D5-NS 1000 ml IV at 100 ml/hr Per protocol jl7 14:45 Drug: Solu-CORTEF 100 mg Route: IVP; Site: left antecubital; jl7 15:00 Follow up: Response: No adverse reaction jl7 15:50 Drug: Levophed (4 mg/250 mL D5W 4 mcg/min Route: IV; Rate: calculated rate; Site: right jl7 femoral; Point of Care Testing: Blood Glucose: 16:00 Blood Glucose: 77 mg/dL; jl7 Ranges: Intake: 13:30 IV: 1000ml; Total: 1000ml. jl7 15:30 IV: 1000ml; Total: 2000ml. jl7 Outcome: 13:47 Decision to Hospitalize by Provider. jr8 21:15 Patient left the ED. bb Signatures: Dispatcher [employer] EDMS Susanna Zuñiga RN RN bb Xu oLwry MD MD rn Calderon, Audri RN RN jonah5 Chanda Longoria RN RN ed1 Reji Santoro PA PA jr8 Ariana Barraza, web site developer EKG Tat1 Kate Mixon Taylor RN RN tl2 Carla Naranjo Nathan nj Leal, Jahala, RN RN jl7 Laurie Land kj1 Corrections: (The following items were deleted from the chart) 12:16 12:09 Presenting complaint: Pt's states "His blood pressure has been low for about aa5 3 weeks but today it was around 80 (systolic)". aa5 21:20 19:30 BP 117 / 74; Pulse 91bpm; Resp 18bpm; Pulse Ox 100% 2 lpm Nasal Cannula; tl2 tl2 21:20 20:30 BP 104 / 72; Pulse 81bpm; Resp 20bpm; Pulse Ox 100% 2 lpm Nasal Cannula; tl2 tl2
--- NOTE | 2019-02-05 13:48 | EDPHYS ---
Physician Documentation [facility] Name: Asim Burnett Age: 63 yrs Sex: Male : 1955 Arrival Date: 02/05/2019 Time: 12:00 Bed 3 Private MD: Bebeto Jaffe H ED Physician Xu Lowry HPI: 02/05 13:14 This 63 yrs old Male presents to ER via Wheelchair with complaints of jr8 Breathing Difficulty, Low BP. 13:14 Onset: The symptoms/episode began/occurred gradually, 3 week(s) ago. Duration: The jr8 symptoms are continuous. The patient's shortness of breath has no apparent modifying factors. Associated signs and symptoms: Pertinent positives: fatigue. Severity of symptoms: At their worst the symptoms were moderate in the emergency department the symptoms are unchanged. It is unknown whether or not the patient has had similar symptoms in the past. The patient has been recently seen by a physician:. of patient stated that for the past few weeks he has had increasingly low BP. Has been seen by his PCP and has been taken off of most all of his BP medications except for one which she has held for the past two days. Stated that she came today because home health came to check on him and BP was in the 70s and barely arrousable . Historical: - Allergies: 12:10 Ibuprofen; aa5 - PMHx: 12:10 Anxiety; cardiac stent; COPD; Depression; Diabetes - IDDM; High Cholesterol; aa5 Hypertension; Myocardial infarction; - Immunization history:: Adult Immunizations unknown. - Social history:: Smoking status: Patient/guardian denies using tobacco. - Ebola Screening: : No symptoms or risks identified at this time. ROS: 13:14 Eyes: Negative for injury, pain, redness, and discharge, ENT: Negative for injury, jr8 pain, and discharge, Neck: Negative for injury, pain, and swelling, Cardiovascular: Negative for chest pain, palpitations, and edema, Respiratory: Negative for shortness of breath, cough, wheezing, and pleuritic chest pain, Abdomen/GI: Negative for abdominal pain, nausea, vomiting, diarrhea, and constipation, Back: Negative for injury and pain, MS/Extremity: Negative for injury and deformity, Skin: Negative for injury, rash, and discoloration, Neuro: Negative for headache, weakness, numbness, tingling, and seizure. Exam: 13:14 Eyes: Pupils equal round and reactive to light, extra-ocular motions intact. Lids and jr8 lashes normal. Conjunctiva and sclera are non-icteric and not injected. Cornea within normal limits. Periorbital areas with no swelling, redness, or edema. ENT: Nares patent. No nasal discharge, no septal abnormalities noted. Tympanic membranes are normal and external auditory canals are clear. Oropharynx with no redness, swelling, or masses, exudates, or evidence of obstruction, uvula midline. Mucous membranes moist. Neck: Trachea midline, no thyromegaly or masses palpated, and no cervical lymphadenopathy. Supple, full range of motion without nuchal rigidity, or vertebral point tenderness. No Meningismus. Cardiovascular: Regular rate and rhythm with a normal S1 and S2. No gallops, murmurs, or rubs. Normal PMI, no JVD. No pulse deficits. Respiratory: Lungs have equal breath sounds bilaterally, clear to auscultation and percussion. No rales, rhonchi or wheezes noted. No increased work of breathing, no retractions or nasal flaring. Abdomen/GI: Soft, non-tender, with normal bowel sounds. No distension or tympany. No guarding or rebound. No evidence of tenderness throughout. Back: No spinal tenderness. No costovertebral tenderness. Full range of motion. Skin: Warm, dry with normal turgor. Normal color with no rashes, no lesions, and no evidence of cellulitis. MS/ Extremity: Pulses equal, no cyanosis. Neurovascular intact. Full, normal range of motion. 13:14 Neuro: Orientation: to person, place \T\ time. Mentation: able to follow commands, slow to respond, Memory: immediate memory is intact, remote memory is intact. recent memory is intact, Cranial nerves: CN I not tested, CN II- XII are normal as tested, visual estrella are intact. extraocular movements are intact, Facial palsy and sensory deficits are absent. Nystagmus is absent. Motor: moves all fours, Sensation: no obvious gross deficits, Gait: not tested. seizure activity, is not displayed by the patient, Abnormal movements: there are no abnormal movements. Vital Signs: 12:10 BP 83 / 54; Pulse 69; Resp 16 S; Temp 98.2(TE); Pulse Ox 95% on R/A; aa5 12:30 BP 82 / 61; Pulse 69; Resp 24 S; Pulse Ox 96% on 2 lpm NC; jl7 12:45 BP 80 / 54; Pulse 71; Resp 27 S; Pulse Ox 99% on 2 lpm NC; jl7 13:05 BP 100 / 62; Pulse 66; Resp 23 S; Pulse Ox 100% on R/A; jl7 13:15 BP 98 / 62; Pulse 68; Resp 22 S; Pulse Ox 100% on 2 lpm NC; jl7 13:30 BP 90 / 54; Pulse 67; Resp 24 S; Pulse Ox 100% on 2 lpm NC; jl7 13:45 BP 82 / 51; Pulse 67; Resp 21 S; Pulse Ox 99% on 2 lpm NC; jl7 14:00 BP 78 / 43; Pulse 66; Resp 24 S; Pulse Ox 100% on 2 lpm NC; jl7 14:15 BP 75 / 48; Pulse 65; Resp 23 S; Pulse Ox 100% on 2 lpm NC; jl7 14:15 BP 65 / 44; Pulse 63; Resp 24 S; Pulse Ox 98% on 2 lpm NC; jl7 15:00 BP 93 / 65; Pulse 60; Resp 24 S; Pulse Ox 100% on 2 lpm NC; jl7 15:39 BP 115 / 66; Pulse 61; Resp 17 S; Pulse Ox 100% on 2 lpm NC; jl7 [place] Coma Score: 13:14 Eye Response: to voice(3). Verbal Response: oriented(5). Motor Response: obeys jr8 commands(6). Total: 14. MDM: 12:12 Patient medically screened. rn 13:45 Data reviewed: vital signs, nurses notes, lab test result(s), EKG, radiologic studies, jr8 plain films. Data interpreted: environmental monitoring specialist: rate is 66 beats/min, rhythm is normal sinus rhythm, regular, with no ectopy, Interpretation: normal rate, normal rhythm, Pulse oximetry: on room air is 95 %. Interpretation: normal. Counseling: I had a detailed discussion with the patient and/or guardian regarding: the historical points, exam findings, and any diagnostic results supporting the discharge/admit diagnosis, lab results, radiology results, the need for further work-up and treatment in the hospital. Physician consultation: Hansa Sahu MD was called at 13:46, was contacted at 13:46, regarding admission, to the ICU, consult, patient's condition, and will see patient. 02/05 12:27 Order name: Basic Metabolic Panel; Complete Time: 13:37 8 02/05 12:27 Order name: CBC with Diff; Complete Time: 13:06 02/05 12:27 Order name: LFT's; Complete Time: 13:37 8 02/05 12:27 Order name: Magnesium; Complete Time: 13:37 8 02/05 12:27 Order name: NT PRO-BNP; Complete Time: 13:37 8 02/05 12:27 Order name: PT-INR; Complete Time: 13:02/05 12:27 Order name: Troponin (emerg Dept Use Only); Complete Time: 13:37 8 02/05 12:27 Order name: ABG; Complete Time: 13:19 8 02/05 12:27 Order name: AMMONIA; Complete Time: 13:10 8 02/05 12:27 Order name: Blood Culture Adult (2) 02/05 14:41 Order name: TSH 02/05 14:41 Order name: T4 Free 8 02/05 15:34 Order name: T4 Free; Complete Time: 15:45 EDMS 02/05 15:34 Order name: Thyroid Stimulating Hormone; Complete Time: 15:45 EDMS 02/05 12:27 Order name: XRAY Chest (1 view); Complete Time: 13:40 8 02/05 14:17 Order name: Head Brain Wo Cont; Complete Time: 16:04 EDMS 02/05 16:47 Order name: Glucose, Ancillary Testing; Complete Time: 17:05 EDMS 02/05 16:47 Order name: Glucose, Ancillary Testing; Complete Time: 17:05 EDMS 02/05 19:13 Order name: Glucose, Ancillary Testing EDMS 02/05 19:13 Order name: Glucose, Ancillary Testing EDMS 02/05 19:13 Order name: Glucose, Ancillary Testing EDMS 02/05 19:13 Order name: Glucose, Ancillary Testing EDMS 02/05 12:27 Order name: EKG; Complete Time: 12:27 jr8 02/05 12:27 Order name: Cardiac monitoring; Complete Time: 12:54 02/05 12:27 Order name: EKG - Nurse/Tech; Complete Time: 12:54 02/05 12:27 Order name: IV Saline Lock; Complete Time: 12:54 02/05 12:27 Order name: Labs collected and sent; Complete Time: 12:54 02/05 12:27 Order name: O2 Per Protocol; Complete Time: 12:54 02/05 12:27 Order name: O2 Sat Monitoring; Complete Time: 12:54 02/05 12:27 Order name: Glucose Level; Complete Time: 12:53 02/05 13:43 Order name: Diet Ada [address]; Complete Time: 13:43 [facility] 02/05 14:16 Order name: Heart Healthy EDMS Administered Medications: 12:40 Drug: NS 0.9% 1000 ml Route: IV; Rate: 1000 ml; Site: left antecubital; jl7 13:30 Follow up: IV Status: Completed infusion; IV Intake: 1000ml jl7 12:41 Drug: D50W 25 ml Route: IVP; Site: left antecubital; jl7 12:57 Follow up: Response: No adverse reaction; Blood sugar is elevated jl7 14:25 Drug: Lactated Ringers Solution 1000 ml Route: IV; Rate: bolus; Site: left hand; jl7 15:30 Follow up: IV Status: Completed infusion; IV Intake: 1000ml jl7 14:30 Drug: D50W 50 ml Route: IVP; Site: left antecubital; jl7 15:00 Follow up: Response: No adverse reaction; Blood sugar is elevated jl7 14:31 Not Given (Duplicate Order): Lactated Ringers Solution 1000 ml IV at 150 ml/hr jl7 continuous 14:33 CANCELLED (Duplicate Order): D5-NS 1000 ml IV at 125 ml/hr continuous jl7 14:35 Drug: D5-NS 1000 ml Route: IV; Rate: 100 ml/hr; Site: left antecubital; jl7 18:03 Follow up: Response: No adverse reaction; IV Status: Order to discontinue infusion jl7 14:42 CANCELLED (Duplicate Order): Solu-CORTEF 100 mg IVP once jl7 14:43 CANCELLED (Duplicate Order): D5-NS 1000 ml IV at 100 ml/hr Per protocol jl7 14:45 Drug: Solu-CORTEF 100 mg Route: IVP; Site: left antecubital; 7 15:00 Follow up: Response: No adverse reaction jl7 15:50 Drug: Levophed (4 mg/250 mL D5W 4 mcg/min Route: IV; Rate: calculated rate; Site: right jl7 femoral; Point of Care Testing: Blood Glucose: 16:00 Blood Glucose: 77 mg/dL; 7 Ranges: Critical Glucose Levels:Adult <50 mg/dl or >400 mg/dl <40 mg/dl or >180 mg/dl Disposition: 02/05/19 13:47 Hospitalization ordered by Hansa Sahu for Inpatient Admission. Preliminary diagnosis are Hypotension, Acidosis, Altered mental status, unspecified. - Bed requested for Intensive Care Unit. - Status is Inpatient Admission. bb - Condition is Fair. - Problem is new. - Symptoms have improved. UTI on Admission? No Addendum: 02/07/2019 07:03 Co-signature as Attending Physician, Xu Lowry MD. r n Signatures: Dispatcher [employer] EDMS Pia Lilly Brenda, MILLA RN bb Xu Lowry MD MD rn Calderon, Audri RN RN aa5 Reji Santoro PA PA jr8 Trevor Cavazos RN RN jl7 Corrections: (The following items were deleted from the chart) 02/05 13:47 13:47 Hospitalization Ordered by Hansa Sahu MD for Inpatient Admission. Preliminary jr8 diagnosis is Hypotension; Acidosis. Bed requested for Intensive Care Unit. Status is Inpatient Admission. Condition is Fair. Problem is new. Symptoms have improved. UTI on Admission? No. jr8 14:33 14:32 D5-NS 1000 ml IV at 125 ml/hr continuous ordered. jl7 jl7 14:42 14:42 Solu-CORTEF 100 mg IVP once ordered. chikis jl7 14:42 14:42 Solu-CORTEF 100 mg IVP once ordered. jl7 jl7 14:43 14:42 D5-NS 1000 ml IV at 100 ml/hr Per protocol ordered. jl7 jl7 14:43 14:42 D5-NS 1000 ml IV at 100 ml/hr Per protocol ordered. jl7 jl7 15:02 13:47 02/05/2019 13:47 Hospitalization Ordered by Hansa Sahu MD for Inpatient bd Admission. Preliminary diagnosis is Hypotension; Acidosis; Altered mental status, unspecified. Bed requested for Intensive Care Unit. Status is Inpatient Admission. Condition is Fair. Problem is new. Symptoms have improved. UTI on Admission? No. jr8 18:05 15:02 02/05/2019 13:47 Hospitalization Ordered by Hansa Sahu MD for Inpatient bd Admission. Preliminary diagnosis is Hypotension; Acidosis; Altered mental status, unspecified. Bed requested for [facility] ER HOLD. Status is Inpatient Admission. Condition is Fair. Problem is new. Symptoms have improved. UTI on Admission? No. bd 21:15 18:05 02/05/2019 13:47 Hospitalization Ordered by Hansa Sahu MD for Inpatient bb Admission. Preliminary diagnosis is Hypotension; Acidosis; Altered mental status, unspecified. Bed requested for Intensive Care Unit. Status is Inpatient Admission. Condition is Fair. Problem is new. Symptoms have improved. UTI on Admission? No. bd
[2019-02-05] MEDS ORDERED: ONDANSETRON 4 MG/2 ML VIAL IV PRN (14:12)
[2019-02-05] MEDS ORDERED: Ringers Lactate 1,000 ML IV ONE (14:26)
[2019-02-05] MEDS ORDERED: D5 0.45 NS 1,000 ML IV ONE (14:31)
[2019-02-05] MEDS ORDERED: D5 0.9 NS 1,000 ML IV ONE (14:37)
[2019-02-05] MEDS ORDERED: HYDROCORTISONE SUC 100 MG INJ ONE (14:50)
[2019-02-05] MEDS ORDERED: NOREPINEPHRINE 4mg/D5W 250mL 4 MG/250 ML BAG IV ONE (15:05)
[2019-02-05 15:34] LABS: Thyroid Stimulating Hormone 1.87 uIU/mL (0.360-3.740)
--- NOTE | 2019-02-05 15:48 | RAD REPORT ---
EXAM DESCRIPTION: CT - Head Brain Wo Cont - 02/05/2019 3:25 pm CLINICAL HISTORY: Transient alteration of awareness, lethargy COMPARISON: July 2018 TECHNIQUE: Axial 5 mm thick images of the head were obtained without IV contrast. All CT scans are performed using dose optimization technique as appropriate and may include automated exposure control or mA/KV adjustment according to patient size. FINDINGS: No intracranial hemorrhage, mass, edema or shift of mid-line structures. No acute infarcti on changes seen. No cortical edema or sulcal effacement. Volume loss and chronic ischemic pattern is similar to the comparison. Ventricles are in proportion. Arterial and physiologic calcifications are present. Mastoid air cells and visualized portions of the paranasal sinuses are clear. No acute bony findings. IMPRESSION: No acute intracranial finding identifiable. The volume loss and atrophy changes are similar to July 2018.
[2019-02-05] MEDS ORDERED: D5W 1,000 ML IV SCH (16:00)
--- NOTE | 2019-02-05 16:27 | EKG ---
Test Date: 2019-02-05 Test Time: 12:32:50 Field Control Inspector: MARILIA MEASUREMENT RESULTS: Intervals: Rate: 70 MO: 162 QRSD: 90 QT: 382 QTc: 412 [place]: P: 17 MO: 162 QRS: -41 T: 11 INTERPRETIVE STATEMENTS: Normal sinus rhythm Left axis deviation Abnormal ECG Compared to ECG 12/12/2018 11:34:58 Left ventricular hypertrophy no longer present Myocardial infarct finding no longer present Electronically Signed On 02-05-19 16:27:22 CDT by Dre Mai
[2019-02-05] MEDS ORDERED: D5W 1,000 ML IV ONE (17:27)
--- NOTE | 2019-02-05 18:07 | P.HP ---
Certification for Inpatient Patient admitted to: Inpatient With expected LOS: >2 Midnights Patient will require the following post-hospital care: Home Health Services Practitioner: I am a practitioner with admitting privileges, knowledge of patient current condition, hospital course, and medical plan of care. Services: Services provided to patient in accordance with Admission requirements found in Title 42 Section 412.3 of the Code of Federal Regulations Patient History Date of Service: 02/05/19 Reason for admission: Drowsy History of Present Illness: This is a 63-year-old male with significant past medical history of COPD, obstructive sleep apnea, diabetes, hypertension, who presented to the ED with complaints of lethargy and drowsiness. Patient's at bedside states that patient has been having some generalized weakness for past 3 days and. Was recently seen by his community outreach specialist who discontinued all his home medication for blood pressure due to having low blood pressure at the office on different visits. Patient however since then has still not been able to feel better or himself. Patient this morning stated that he checked his blood sugar was high for 214 and thus he decided to give himself 40 units of Lantus. Patient denies having any fever chills nausea vomiting abdominal pain chest pain shortness of breath or any other associated symptoms. Patient only mentions that he has been having generalized weakness since past 3 days. Allergies ibuprofen Allergy (Intermediate, Verified 07/03/18 21:22) Hives/Rash Home Medications: Albuterol Neb [Proventil 0.083% Neb Soln] 2.5 mg IH QIDP PRN 04/29/18 Fenofibrate 160 mg PO DAILY 04/29/18 Trazodone [Desyrel*] 50 mg PO BEDTIME 04/29/18 clonazePAM [Klonopin] 1 mg PO QIDP PRN 04/29/18 ARIPiprazole [Abilify*] 5 mg PO DAILY 06/09/18 Amlodipine [Norvasc*] 5 mg PO DAILY 06/09/18 Enalapril Maleate [Vasotec] 20 mg PO DAILY 06/09/18 Gabapentin 600 mg PO TID 06/09/18 Lansoprazole [Prevacid] 30 mg PO DAILY 06/09/18 Metformin HCl 1,000 mg PO BID 06/09/18 Proair Hfa 90mcg/Inh 2 puff IH QIDP PRN 06/09/18 Ipratropium Neb [Atrovent*] 0.5 mg NEB Q4HP PRN #30 amp 06/13/18 Oxycodone HCl/Acetaminophen [Percocet 5/325 Tab*] 1 tab PO QIDP PRN tab Arformoterol Tartrate [Brovana] 15 mcg IH BID #60 ml 07/05/18 Insulin -Regular Human [Novolin -R*] See Protocol SQ ACHS ml 12/14/18 Promethazine Tab [Phenergan*] 25 mg PO Q6HP PRN tab 12/14/18 Clopidogrel Bisulfate [Plavix] 75 mg PO DAILY #30 tablet 12/18/18 Spironolactone [Aldactone*] 25 mg PO BID #60 tab 12/18/18 predniSONE [Deltasone*] 10 mg PO DAILY #7 tab 12/18/18 - Past Medical/Surgical History Diabetic: Yes -: IDDM -: Hypertension -: hyperlipidemia -: anxiety -: depression -: Gastroesophageal reflux disease -: Obstructive sleep apnea -: (home 02 4L) -: Pancreatic surgery -: cholecystectomy -: several back surgery -: 2008 ercp, punctured something in his pacreas, then transfered to -: [facility] for open exploratory lap, had feeding tube that has reversed -: trach from previous surgery at [facility] - Family History Father -: Heart disease, Diabetes Mother -: Heart disease, Hypertension, Lung disease, GI disease, Diabetes, Stroke, Liver disease, Kidney disease Brother -: Heart disease, Hypertension, Lung disease, Diabetes, Stroke, Liver disease, Kidney disease Notes: 2 brothers Sister -: Heart disease, GI disease Notes: no known illness - Social History Smoking Status: Unknown if ever smoked Alcohol use: No CD- Drugs: No Caffeine use: Yes Place of Residence: Home Review of Systems 10-point ROS is otherwise unremarkable Physical Examination - Vital Signs Temperature: 98.7 F Blood Pressure: 112/72 Pulse: 62 Respirations: 21 Pulse Ox (%): 100 - Physical Exam General: Alert, Oriented x3, Acute distress, Other (Somnolence and lethargic) HEENT: Atraumatic, PERRLA, Mucous membr. moist/pink, EOMI, Sclerae nonicteric Neck: Supple, 2+ carotid pulse no bruit, No LAD, Without JVD or thyroid abnormality, JVD distended Respiratory: Normal air movement, Inspiratory wheezes, Rhonchi/gurgles Cardiovascular: Regular rate/rhythm, Normal S1 S2 Gastrointestinal: Normal bowel sounds, No tenderness Musculoskeletal: No tenderness Integumentary: No rashes Neurological: Normal speech, Normal tone Lymphatics: No axilla or inguinal lymphadenopathy - Studies Laboratory Data (last 24 hrs) 02/05/19 12:30: PT 11.8, INR 1.00 02/05/19 12:30: WBC 9.4, Hgb 12.4 L, Hct 36.8 L, Plt Count 326 02/05/19 12:30: Sodium 141, Potassium 3.8, BUN 35 H, Creatinine 1.27, Glucose 53 L, Magnesium 2.1, Total Bilirubin 0.3, AST 24, ALT 32, Alkaline Phosphatase 78 Assessment and Plan - Problems (Diagnosis) (1) Hypoglycemia Current Visit: Yes Status: Acute Plan: Generalized weakness with hyperglycemia. Most likely secondary to insulin use this a.m. -patient currently on D5 W at 50 mL/hour in lieu of past medical history of CHF -will continue to monitor closely. Will check blood sugars q. 6 hr here in the hospital (2) Low blood pressure Onset Date: 02/10/15 Current Visit: No Status: Acute Plan: Hypotension most likely unknown etiology at this time however high possibility of hypovolemia related hypotension -currently status post 1 L of fluids in the ER. Currently started on Levophed for pressure support -will get blood culture, urine culture, chest x-ray to rule out any infection -will continue to monitor patient here closely. Will hold all blood pressure medication at this time Qualifiers: Hypotension type: hypotension due to hypovolemia Qualified Code(s): I95.89 - Other hypotension; E86.1 - Hypovolemia (3) Weakness Onset Date: 08/23/18 Current Visit: No Status: Chronic Plan: Generalized weakness secondary to hyperglycemia and hypertension -will get PT OT consulted on the case -fall precautions given as well (4) CAD (coronary artery disease) Onset Date: 05/08/17 Current Visit: No Status: Chronic Plan: Stable will hold blood pressure medicine at this time. Qualifiers: Coronary Disease-Associated Artery/Lesion type: [place] artery [place] vs. transplanted heart: [place] heart Associated angina: without angina Qualified Code(s): I25.10 - Atherosclerotic heart disease of [place] coronary artery without angina pectoris (5) CHF (congestive heart failure) Onset Date: 12/21/17 Current Visit: No Status: Chronic Plan: Stable at this time -will monitor closely given the need for IV fluids due to hypotension Qualifiers: Heart failure type: diastolic Heart failure chronicity: chronic Qualified Code(s): I50.32 - Chronic diastolic (congestive) heart failure (6) Diabetes mellitus Onset Date: 06/11/18 Current Visit: No Status: Chronic Plan: Currently hypoglycemic -will check blood sugar every 6 hr -on D5W Qualifiers: Diabetes mellitus type: type 2 Diabetes 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 Will continue with D5 doubly for hypoglycemia. Will follow up with head CT here shortly. Will continue with close monitoring at this time. Discharge Plan: Home Plan to discharge in: Greater than 2 days - Advance Directives Does patient have a Living Will: Yes Does patient have a Durable POA for Healthcare: Yes - Code Status/Comfort Care Code Status Assessed: Yes Critical Care: Yes Time Spent Managing Pts Care (In Minutes): 60
[2019-02-05] MEDS ORDERED: HYDROCORTISONE SUC 100 MG INJ IV SCH (21:00)
[2019-02-05 23:11] LABS: Urine Appearance CLEAR; Urine Bilirubin NEGATIVE (NEG); Urine Blood NEGATIVE (NEG); Urine Color YELLOW; Urine Glucose 3+ (NEG); Urine Protein NEGATIVE (NEG); Urine Specific Gravity 1.025 (1.005-1.030); Urine Urobilinogen 0.2 mg/dL (0.2-1.0)
[2019-02-05 23:22] VITALS: BMI 37.9
[2019-02-05 23:40] LABS: Urine Microscopic Reflex NO UMIC
[2019-02-06 05:23] LABS: Absolute Lymphocytes (CBC) 2.4 K/uL (0.7-4.9); Absolute Monocytes 0.7 K/uL (0.1-1.3); Absolute Neutrophil 7.8 K/uL (1.8-8.0); Basophils % 0.4 % (0-1.3); Hematocrit 35.1 % (39.6-49.0); Lymphocytes % 22.1 % (15.3-44.8); MPV 8.1 fL (7.6-11.3)
[2019-02-06 05:39] LABS: Bilirubin Total 0.4 mg/dL (0.2-1.0); Magnesium 1.8 mg/dL (1.8-2.4); Phosphorus 3.1 mg/dL (2.5-4.9); Potassium 4.1 mmol/L (3.5-5.1); Protein, Total 6.7 g/dL (6.4-8.2)
[2019-02-06] MEDS ORDERED: MAGNESIUM SULFATE 1 gm IVPB 1 GM/100 ML BAG IV ONE (05:55)
[2019-02-06] MEDS: HYDROCODONE/APAP 5/325 MG TAB PO PRN ×2 (08:46→18:13)
[2019-02-06] MEDS: predniSONE 20 MG TAB PO SCH ×2 (08:46→20:27)
--- NOTE | 2019-02-06 10:49 | EKG ---
Test Date: 2019-02-05 Test Time: 14:21:20 Crt: KELLY MEASUREMENT RESULTS: Intervals: Rate: 64 AK: 172 QRSD: 96 QT: 440 QTc: [address]: P: 11 AK: 172 QRS: -27 T: 21 INTERPRETIVE STATEMENTS: Normal sinus rhythm Nonspecific T wave abnormality Abnormal ECG Compared to ECG 02/05/2019 12:32:50 T-wave abnormality now present Electronically Signed On 02-06-19 10:48:36 CDT by Dre Mai
--- NOTE | 2019-02-06 14:45 | P.PN ---
Subjective Date of Service: 02/06/19 Chief Complaint: Drowsy Pt seen and examined at bedside. Chart reviewed and Case DW with patient and RN at bedside. Pt is more alert and oriented today. BS > 100. Denies SOB, CP and fever over night. Review of Systems 10-point ROS is otherwise unremarkable Physical Examination - Vital Signs Temperature: 97.1 F Blood Pressure: 121/73 Pulse: 82 Respirations: 22 Pulse Ox (%): 94 - Physical Exam General: Alert, In no apparent distress, Oriented x3 HEENT: Atraumatic, PERRLA, EOMI Neck: Supple, JVD not distended Respiratory: Clear to auscultation bilaterally, Normal air movement Cardiovascular: Regular rate/rhythm, Normal S1 S2 Gastrointestinal: Normal bowel sounds, No tenderness Musculoskeletal: No tenderness Integumentary: No rashes Neurological: Normal speech, Normal tone, Normal affect Lymphatics: No axilla or inguinal lymphadenopathy - Studies Medications List Reviewed: Yes Assessment And Plan - Current Problems (Diagnosis) (1) Hypoglycemia Current Visit: Yes Status: Acute Plan: Generalized weakness with hypoglycemia. Now resolved. -DC D5W, Monitor Glucose q6h and Mild sliding scale for now (2) Low blood pressure Onset Date: 02/10/15 Current Visit: No Status: Acute Plan: Hypotension most likely unknown etiology at this time however high possibility of hypovolemia related hypotension. Now resolved. -currently status post 1 L of fluids in the ER. Now off pressors. BP stable -Culture negative thus far -transfer to the regular floor Qualifiers: Hypotension type: hypotension due to hypovolemia Qualified Code(s): I95.89 - Other hypotension; E86.1 - Hypovolemia (3) Weakness Onset Date: 08/23/18 Current Visit: No Status: Chronic Plan: Generalized weakness secondary to hypoglycemia and hypertension -PT.OT consulted. Awaiting reccs -fall precautions given as well (4) CAD (coronary artery disease) Onset Date: 05/08/17 Current Visit: No Status: Chronic Plan: Hold on BP medication. Restart other medication Qualifiers: Coronary Disease-Associated Artery/Lesion type: [place] artery [place] vs. transplanted heart: [place] heart Associated angina: without angina Qualified Code(s): I25.10 - Atherosclerotic heart disease of [place] coronary artery without angina pectoris (5) CHF (congestive heart failure) Onset Date: 12/21/17 Current Visit: No Status: Chronic Plan: Stable at this time Qualifiers: Heart failure type: diastolic Heart failure chronicity: chronic Qualified Code(s): I50.32 - Chronic diastolic (congestive) heart failure (6) Diabetes mellitus Onset Date: 06/11/18 Current Visit: No Status: Chronic Plan: On BS are stable. -ISS and accu check Qualifiers: Diabetes mellitus type: type 2 Diabetes mellitus group home insulin use: with group home use Diabetes mellitus complication status: without complication Qualified Code(s): E11.9 - Type 2 diabetes mellitus without complications; Z79.4 - [facility] (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 of insulin (7) HTN (hypertension) Onset Date: 06/11/18 Current Visit: No Status: Chronic Plan: HTN now stable -Hold BP meds for now Qualifiers: Hypertension type: essential hypertension (8) Obstructive sleep apnea Onset Date: 06/11/18 Current Visit: No Status: Chronic - Plan Pending clinical improvement. Will transfer to the regular floor and monitor closely Discharge Plan: Home Plan to discharge in: Greater than 2 days - Code Status/Comfort Care Code Status Assessed: Yes Critical Care: Yes Time Spent Managing PTS Care (In Minutes): 35
[2019-02-06] MEDS ORDERED: GLUCAGON 1 MG/VIAL IM PRN (16:59)
[2019-02-06] MEDS ORDERED: D50W 25 GM/50 ML SYRINGE IV PRN (16:59)
[2019-02-06] MEDS: INSULIN -REGULAR HUMAN 50 UNIT/0.5 ML ML SQ SCH ×2 (17:17→20:50)
[2019-02-07] MEDS: HYDROCODONE/APAP 5/325 MG TAB PO PRN (02:50)
[2019-02-07 05:19] LABS: Absolute Lymphocytes (CBC) 1.5 K/uL (0.7-4.9); Absolute Monocytes 0.3 K/uL (0.1-1.3); Absolute Neutrophil 7.5 K/uL (1.8-8.0); Basophils % 0.7 % (0-1.3); Eosinophils % 0.1 % (0-4.4); Hematocrit 34.5 % (39.6-49.0); Lymphocytes % 16.3 % (15.3-44.8); MPV 7.7 fL (7.6-11.3); Monocytes % 3.3 % (3.3-12.3); RBC Red Blood Cell Count 3.84 M/uL (4.33-5.43)
[2019-02-07 05:35] LABS: Albumin 3.4 g/dL (3.4-5.0); Bilirubin Total 0.4 mg/dL (0.2-1.0); Magnesium 1.9 mg/dL (1.8-2.4); Potassium 5.2 mmol/L (3.5-5.1); Protein, Total 7.2 g/dL (6.4-8.2)
[2019-02-07] MEDS: INSULIN -REGULAR HUMAN 50 UNIT/0.5 ML ML SQ SCH ×4 (08:46→21:35)
[2019-02-07] MEDS: predniSONE 20 MG TAB PO SCH ×2 (08:47→21:35)
--- NOTE | 2019-02-07 16:04 | P.PN ---
Subjective Date of Service: 02/07/19 Chief Complaint: Drowsy Pt seen and examined at bedside. Chart reviewed and Case DW with patient and RN at bedside. Denies SOB, CP and fever over night. Review of Systems 10-point ROS is otherwise unremarkable Physical Examination - Vital Signs Temperature: 97 F Blood Pressure: 115/78 Pulse: 69 Respirations: 20 Pulse Ox (%): 96 - Physical Exam General: Alert, In no apparent distress HEENT: Atraumatic, PERRLA, EOMI Neck: Supple, JVD not distended Respiratory: Clear to auscultation bilaterally, Normal air movement Cardiovascular: Regular rate/rhythm, Normal S1 S2 Gastrointestinal: Normal bowel sounds, No tenderness Musculoskeletal: No tenderness Integumentary: No rashes Neurological: Normal speech, Normal tone, Normal affect Lymphatics: No axilla or inguinal lymphadenopathy - Studies Medications List Reviewed: Yes Assessment And Plan - Current Problems (Diagnosis) (1) Hypoglycemia Current Visit: Yes Status: Acute Plan: Generalized weakness with hypoglycemia. Now resolved. -DC D5W, Monitor Glucose q6h and Mild sliding scale for now -Calculate his insulin needs for next 24hrs and adjust home medication -pt received Steroids in the ER and ICU and this BS is currently fluctuating (2) Low blood pressure Onset Date: 02/10/15 Current Visit: No Status: Acute Plan: Hypotension most likely unknown etiology at this time however high possibility of hypovolemia related hypotension. Now resolved. -currently status post 1 L of fluids in the ER. Now off pressors. BP stable -Culture negative thus far Qualifiers: Hypotension type: hypotension due to hypovolemia Qualified Code(s): I95.89 - Other hypotension; E86.1 - Hypovolemia (3) Weakness Onset Date: 08/23/18 Current Visit: No Status: Chronic Plan: Generalized weakness secondary to hypoglycemia and hypertension -PT.OT consulted. Reccs -fall precautions given as well (4) CAD (coronary artery disease) Onset Date: 05/08/17 Current Visit: No Status: Chronic Plan: Hold on BP medication. Restart other medication Qualifiers: Coronary Disease-Associated Artery/Lesion type: [place] artery [place] vs. transplanted heart: [place] heart Associated angina: without angina Qualified Code(s): I25.10 - Atherosclerotic heart disease of [place] coronary artery without angina pectoris (5) CHF (congestive heart failure) Onset Date: 12/21/17 Current Visit: No Status: Chronic Plan: Stable at this time Qualifiers: Heart failure type: diastolic Heart failure chronicity: chronic Qualified Code(s): I50.32 - Chronic diastolic (congestive) heart failure (6) Diabetes mellitus Onset Date: 06/11/18 Current Visit: No Status: Chronic Plan: On BS are stable. 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 Will monitor BS at this time for next 24hrs Discharge Plan: Home Plan to discharge in: 48 Hours - Code Status/Comfort Care Code Status Assessed: Yes Critical Care: No
[2019-02-07] MEDS ORDERED: clonazePAM 1 MG TAB PO ONE (21:32)
[2019-02-08] MEDS ORDERED: ALPRAZOLAM 0.5 MG TABLET PO ONE (02:21)
[2019-02-08 04:53] LABS: Absolute Lymphocytes (CBC) 1.5 K/uL (0.7-4.9); Absolute Monocytes 0.4 K/uL (0.1-1.3); Absolute Neutrophil 8.1 K/uL (1.8-8.0); Basophils % 0.4 % (0-1.3); Eosinophils % 0.2 % (0-4.4); Hematocrit 37.6 % (39.6-49.0); Lymphocytes % 14.9 % (15.3-44.8); MPV 8.2 fL (7.6-11.3); Monocytes % 4.2 % (3.3-12.3); RBC Red Blood Cell Count 4.19 M/uL (4.33-5.43)
[2019-02-08 05:04] LABS: Albumin 3.6 g/dL (3.4-5.0); Bilirubin Total 0.4 mg/dL (0.2-1.0); Magnesium 1.9 mg/dL (1.8-2.4); Phosphorus 3.4 mg/dL (2.5-4.9); Potassium 4.6 mmol/L (3.5-5.1); Protein, Total 7.8 g/dL (6.4-8.2)
[2019-02-08] MEDS: predniSONE 20 MG TAB PO SCH (08:35)
[2019-02-08] MEDS: INSULIN -REGULAR HUMAN 50 UNIT/0.5 ML ML SQ SCH (08:35)
[2019-02-08 11:18] VITALS: O2SAT 97
--- NOTE | 2019-02-08 15:58 | P.DS ---
Admission Date: 02/05/19 Discharge Date: 02/08/19 Disposition: ROUTINE DISCHARGE Discharge Condition: GOOD Reason for Admission: Drowsy - Problems (1) Hypoglycemia Status: Acute (2) Low blood pressure Onset Date: 02/10/15 Status: Acute Qualifiers: Hypotension type: hypotension due to hypovolemia Qualified Code(s): I95.89 - Other hypotension; E86.1 - Hypovolemia (3) Weakness Onset Date: 08/23/18 Status: Chronic (4) CAD (coronary artery disease) Onset Date: 05/08/17 Status: Chronic Qualifiers: Coronary Disease-Associated Artery/Lesion type: [place] artery [place] vs. 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 Patient's at bedside states that patient has been having some generalized weakness for past 3 days and. Was recently seen by his machinist apprentice wood who discontinued all his home medication for blood pressure due to having low blood pressure at the office on different visits. Patient however since then has still not been able to feel better or himself. Patient this morning stated that he checked his blood sugar was high for 214 and thus he decided to give himself 40 units of Lantus. Patient denies having any fever chills nausea vomiting abdominal pain chest pain shortness of breath or any other associated symptoms. Patient only mentions that he has been having generalized weakness since past 3 days. Hospital Course: Overall during the hospital stay patient remained stable Patient initially was admitted to the hospital for unresponsiveness most likely secondary to hypoglycemia and hypotension. Most likely secondary to dehydration and poor oral intake. Patient has been feeling sick before coming to the hospital recently was seen by her primary care doctor along with machinist apprentice wood has been holding back on his blood pressure medication due to hypotension. Patient however continued to take his insulin despite his poor oral intake and this had been hypoglycemic episode when he came to the hospital. Patient was admitted to the ICU was started on D5 W and insulin was on hold. Patient had marked improvement in his symptoms his sugars were monitored closely and blood sugar stabilized after 1st 24 hr. At that time patient was transferred to the regular floor and monitored for the next 24 hr for his insulin requirements. Patient then was asked to continue to use insulin however at a decreased dose. Patient's long-acting insulin was cut down to 50 units along with short-acting that he uses for breakfast and summer to 15 units each. Patient was also asked to hold all his blood pressure medication other than lisinopril and keep a blood pressure log. Once patient was able to ambulate have a good appetite and was doing well overall patient was discharged home under stable condition and was asked to follow up follow up with primary care provider in about 1-2 days post discharge. No other medications were prescribed. Patient demonstrated understanding and thus was discharged home under stable condition. Vital Signs/Physical Exam: Temp Pulse Resp BP Pulse Ox 97.3 F 82 18 116/75 95 02/08/19 08:00 02/08/19 08:00 02/08/19 08:00 02/08/19 08:00 02/08/19 08:00 General: Alert, In no apparent distress HEENT: Atraumatic, PERRLA, EOMI Neck: Supple, JVD not distended Respiratory: Clear to auscultation bilaterally, Normal air movement Cardiovascular: Regular rate/rhythm, Normal S1 S2 Gastrointestinal: Normal bowel sounds, No tenderness Musculoskeletal: No tenderness Integumentary: No rashes Neurological: Normal speech, Normal tone, Normal affect Lymphatics: No axilla or inguinal lymphadenopathy Laboratory Data at Discharge: WBC 10.1 K/uL (4.3-10.9) 02/08/19 03:57 Hgb 12.8 g/dL (13.6-17.9) L 02/08/19 03:57 Hct 37.6 % (39.6-49.0) L 02/08/19 03:57 Plt Count 322 K/uL (152-406) 02/08/19 03:57 PT 11.8 SECONDS (9.5-12.5) 02/05/19 12:30 INR 1.00 02/05/19 12:30 Sodium 135 mmol/L (136-145) L 02/08/19 03:57 Potassium 4.6 mmol/L (3.5-5.1) 02/08/19 03:57 BUN 23 mg/dL (7-18) H 02/08/19 03:57 Creatinine 0.95 mg/dL (0.55-1.3) 02/08/19 03:57 Glucose 264 mg/dL (74-106) H 02/08/19 03:57 Phosphorus 3.4 mg/dL (2.5-4.9) 02/08/19 03:57 Magnesium 1.9 mg/dL (1.8-2.4) 02/08/19 03:57 Total Bilirubin 0.4 mg/dL (0.2-1.0) 02/08/19 03:57 AST 19 U/L (15-37) 02/08/19 03:57 ALT 26 U/L (12-78) 02/08/19 03:57 Alkaline Phosphatase 61 U/L (45-117) 02/08/19 03:57 Home Medications: Fenofibrate 160 mg PO DAILY 04/29/18 ARIPiprazole [Abilify*] 5 mg PO DAILY 06/09/18 Lansoprazole [Prevacid] 30 mg PO DAILY 06/09/18 Metformin HCl 500 mg PO BID 06/09/18 Proair Hfa 90mcg/Inh 2 puff IH QIDP PRN 06/09/18 Clopidogrel Bisulfate [Plavix*] 75 mg PO DAILY #30 tablet 12/18/18 Aspirin 81 mg PO DAILY 02/05/19 Atorvastatin Calcium [Lipitor*] 80 mg PO BEDTIME 02/05/19 Lisinopril 5 mg PO DAILY 02/05/19 Oxycodone HCl/Acetaminophen [Oxycodone-Acetaminophen 10-325] 1 each PO QID PRN 04/09/19 Insulin Glargine,Hum.rec.anlog [Toujeo Solostar] 50 unit SQ DAILY #1 insuln.pen 02/08/19 Insulin Glulisine [Apidra] 15 unit SQ BREAKFAST #1 vial 02/08/19 Insulin Glulisine [Apidra] 15 units SQ DAILY AT SUPPER #1 vial 02/08/19 New Medications: Insulin Glargine,Hum.rec.anlog [Toujeo Solostar] 50 unit SQ DAILY #1 insuln.pen Insulin Glulisine [Apidra] 15 unit SQ BREAKFAST #1 vial Insulin Glulisine [Apidra] 15 units SQ DAILY AT SUPPER #1 vial Patient Discharge Instructions: Please f.u with PCP in 1 to 2 week post discharge. Change medication. Stop All BP expect lisinopril 5mg Daily. Decrease your Toujeo to 50sq and Decrease your Apidra to 15sq at breakfast and 15sq at dinner Diet: Regular Activity: Ad laureen Followup: Bebeto Jaffe DO, DO [Primary Care Provider] -
[2019-02-08 17:51] VITALS: BP 116/74; TEMP 97.6
== END 2019-02-08 12:15 | disposition home or self-care (01) | DRG 315 ==
LOC: ER 11:59 → ERHOLD 14:13 → 3RD-ICU 20:09 → 2ND 02-06 18:00
PROVIDERS: ADMIT Family Medicine; ATTEND Family Medicine
DX: I95.89 Other hypotension (principal); I50.32 Chronic diastolic (congestive) heart failure; E87.2 Acidosis; E11.649 Type 2 diabetes mellitus with hypoglycemia without coma; Z79.4 Long term (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 of insulin; Z79.84 Long term (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 of oral hypoglycemic drugs; E86.1 Hypovolemia; I25.10 Atherosclerotic heart disease of native coronary artery without angina pectoris; I11.0 Hypertensive heart disease with heart failure; G47.33 Obstructive sleep apnea (adult) (pediatric); J44.9 Chronic obstructive pulmonary disease, unspecified; E86.0 Dehydration; F41.9 Anxiety disorder, unspecified; Z95.5 Presence of coronary angioplasty implant and graft
CPT/HCPCS: 36415; 70450; 71045; 80048; 80053; 80076; 81003; 82140; 82805; 82962; 83735; 83880; 84100; 84439; 84443; 84484; 85025; 85610; 87040; 87086; 87088; 93005; 94760; 96365; 96366; 96375; 97116; 97163; 97165; 99285; J1720; J3475; J7030; J7512

== ENCOUNTER 2019-04-01 13:22 | Inpatient (IN) | payer MEDICARE, SELFPAY ==
--- OUTSIDE RECORDS SUMMARY | 2019-04-01 13:31 | XMS REPORT | Clinical Summary ---
:1955 Author Organization [facility] Address [address] [place] [address] Care Team Providers Name Role Phone Bebeto Jaffe DO Primary Care Provider Allergies Active Allergy Reactions Severity Noted Date Comments Ibuprofen 07/18/2016 Medications Medication Sig Dispensed Refills Start Date End Date Status PROAIR HFA 90 USE 2 PUFFS 4 06/02/2016 Active mcg/actuation NEEDED EVERY 4 inhaler HRS, NEEDED FOR INHALATION 30 DAYS oxyCODone-acetaminop TAKE 1 TABLET 0 06/17/2016 Active hen (PERCOCET) BY MOUTH EVERY 10-325 mg per tablet TWELVE HOURS NEEDED FOR PAIN SPIRIVA RESPIMAT 2.5 TAKE 2 PUFFS BY 3 04/27/2016 Active mcg/actuation mist MOUTH EVERY DAY traZODone (DESYREL) Take 100 mg by 0 Active 100 MG tablet mouth nightly. ONETOUCH DELICA CHECK GLUCOSE 100 each 3 12/07/2016 Active LANCETS 33 gauge TWICE A DAY misc lancets (ONETOUCH 1 each 4 (four) 400 each 3 03/01/2017 Active DELICA LANCETS) 33 times a day. gauge miscIndications: Type 2 diabetes mellitus with complication, with long-term current use of insulin ([facility]) blood sugar Check glucose 4 400 strip 3 08/11/2017 Active diagnostic strips times a day (ONETOUCH VERIO) strip test stripsIndications: Type 2 diabetes mellitus with complication, with long-term current use of insulin ([facility]) insulin Use 1 syringe 270 each 1 01/02/2018 Active syringe-needle U-100 TID. 1 mL 31 gauge x 5/16 syringe spironolactone Take 50 mg by 0 Active [...] times a day as needed for seizures. pen needle, diabetic Use 4 needles a 400 each 3 08/23/2018 Active (BD ULTRA-FINE TIERA day. Dx: E11.65 PEN NEEDLE) 32 gauge x 5/32" needle TOUJEO SOLOSTAR Inject 75 Units 22.5 mL 3 10/17/2018 Active U-300 INSULIN 300 under the skin unit/mL (1.5 mL) daily. insulin penIndications: Type 2 diabetes mellitus with complication, with long-term current use of insulin ([facility]) APIDRA SOLOSTAR Inject 30 units 33 mL 3 10/17/2018 Active U-100 INSULIN 100 in the morning, unit/mL insulin 36 units at penIndications: Type lunch and 36 2 diabetes mellitus units at dinner with complication, plus sliding with long-term scale. current use of insulin ([facility]) aspirin (ECOTRIN) 81 Take 81 mg by 0 Active MG enteric coated mouth daily. tablet clopidogrel (PLAVIX) Take 75 mg by 0 Active 75 mg tablet mouth daily. metFORMIN TAKE 1 TABLET 180 tablet 3 11/21/2018 Active (GLUCOPHAGE) 1,000 BY MOUTH TWO mg tablet TIMES DAILY WITH MEALS empagliflozin Take 1 tablet 90 tablet 3 03/26/2019 Active (JARDIANCE) 25 mg (25 mg total) tablet by mouth daily. cyclobenzaprine Take 10 mg by 0 06/17/2016 02/26/20 Discontinued (FLEXERIL) 10 MG mouth 3 (three) 19 tablet times a day as needed. for muscle spams lansoprazole Take 1 0 07/25/20 Discontinued (PREVACID) 30 MG capsule(s) 18 capsule every day by oral route. famotidine (PEPCID) Take 20 mg by 0 05/24/2016 02/26/20 Discontinued 20 MG tablet mouth 2 (two) 19 times a day. lansoprazole Take 30 mg by 0 05/23/2016 07/25/20 Discontinued (PREVACID) 30 MG mouth 2 (two) 18 capsule times a day. venlafaxine XR Take 150 mg by 0 02/26/20 Discontinued (EFFEXOR-XR) 150 MG mouth daily. 19 24 hr capsule pen needle, diabetic Use 4 needles a 400 each 3 08/15/2016 08/23/20 Discontinued (BD ULTRA-FINE TIERA day 18 PEN NEEDLES) 32 gauge x 5/32" needle fenofibrate TAKE 1 TABLET 90 tablet 3 12/05/2016 02/26/20 Discontinued (LOFIBRA) 160 MG BY MOUTH EVERY 19 tabletIndications: DAY Mixed hyperlipidemia VITAMIN D2 50,000 TAKE 1 CAPSULE 13 capsule 0 12/05/2016 02/26/20 Discontinued unit capsule EVERY WEEK IN 19 THE MORNING FOR 91 DAYS. enalapril (VASOTEC) Take 1 tablet 90 tablet 1 07/19/2017 02/26/20 Discontinued 20 MG (20 mg total) 19 tabletIndications: by mouth daily. Benign essential hypertension insulin GLARGINE Inject 70 Units 22.5 mL 1 08/14/2017 10/17/20 Discontinued (MARANDA FISHEROSTNEEILMA) under the skin 18 300 unit/mL (1.5 mL) daily. insulin penIndications: Type 2 diabetes mellitus with complication, with long-term current use of insulin (HCC) insulin glulisine Inject under 0 10/17/20 Discontinued [...] mouth nightly. 18 tablet Default OP ins furosemide (LASIX) Take 40 mg by 0 02/26/20 Discontinued 40 mg tablet mouth 2 (two) 19 times a day. atorvastatin Take 1 tablet 90 tablet 3 07/25/2018 02/26/20 Discontinued (LIPITOR) 20 MG (20 mg total) 19 tablet by mouth nightly. Default OP ins empagliflozin Take 1 tablet 30 tablet 1 11/19/2018 02/26/20 Discontinued (JARDIANCE) 10 mg (10 mg total) 19 tablet tablet by mouth daily. lisinopril Take 5 mg by 0 02/26/20 Discontinued (PRINIVIL,ZESTRIL) 5 mouth daily. 19 mg tablet metoprolol tartrate Take 50 mg by 0 02/26/20 Discontinued (LOPRESSOR) 50 mg mouth daily. 19 tablet empagliflozin Take 1 tablet 21 tablet 0 02/25/2019 03/26/20 Discontinued (JARDIANCE) 25 mg (25 mg total) 19 tablet by mouth daily. LOT # [id number] EXP: Active Problems Problem Noted Date Benign hypertension [...] Encounters Date Type Specialty Care Team Description 03/26/2019 Orders Only Susanna Somers MA 02/25/2019 Office Visit Divina Hernandez, Type 2 diabetes mellitus with complication, unspecified whether senior care insulin use (HCC) ( Primary Dx); Mixed hyperlipidemia; Coronary artery disease involving [place] heart without angina pectoris , unspecified vessel or lesion type; Benign essential hypertension 11/20/2018 Refill Divina Hernandez MD 11/19/2018 Office Visit Divina Hernandez, Type 2 diabetes mellitus with complication, unspecified whether manager long term care insulin use (HCC) ( Primary Dx); Coronary artery disease involving [place] heart without angina pectoris, unspecified vessel or lesion type; Mixed hyperlipidemia 10/17/2018 Orders Only Divina Hernandez Type 2 diabetes mellitus MD with complication, with long-term current use of insulin (HCC) 08/23/2018 Orders Only Susanna Somers MA 07/25/2018 Office Visit Divina Hernandez Uncontrolled type 2 diabetes MD mellitus with complication, unspecified senior care insulin use status (Primary Dx) 06/14/2018 Documentation Susanna Somers MA 05/22/2018 Orders Only Susanna Somers MA 05/17/2018 Documentation Endocrinology Susanna Laboy MA after 03/31/2018 Family History Medical History Relation Name Comments [...] Vital Sign Reading Time Taken Blood Pressure 120/76 02/25/2019 9:53 AM CDT Pulse 94 02/25/2019 9:53 AM CDT Temperature - - Respiratory Rate - - Oxygen Saturation 95% 02/25/2019 9:53 AM CDT Inhaled Oxygen Concentration - - Weight 110 kg (242 lb 6.4 oz) 02/25/2019 9:53 AM CDT Height 170.2 cm (5' 7") 02/25/2019 9:53 AM CDT Body Mass Index 37.97 02/25/2019 9:53 AM CDT Plan of Treatment Date Type Specialty Care Team Description 05/27/2019 Office Visit Endocrinology Divina Zendejas MD [id number] [address] Health Maintenance Due Date Last [...] Date/Time Associated Diagnosis Comments HEMOGLOBIN A1C Routine 02/13/2019 7:07 Type 2 diabetes Results for this AM CDT mellitus with procedure are in complication, the results unspecified whether section. 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 insulin use status BASIC METABOLIC PANEL Routine 11/10/2018 8:08 Uncontrolled type 2 Results for this AM HYDROTREATER OPERATOR diabetes mellitus with procedure are in complication, the results unspecified senior care section. insulin use status VITAMIN D 25 [...] procedure are in complication, the results unspecified manager long term care section. insulin use status Hyperlipidemia, unspecified hyperlipidemia type COMPREHENSIVE Routine 07/19/2018 7:17 Uncontrolled type 2 Results for this METABOLIC PANEL AM CDT diabetes mellitus with procedure are in complication, the results unspecified senior care section. insulin use status HEMOGLOBIN A1C Routine 07/19/2018 7:17 Uncontrolled type 2 Results for this AM CDT diabetes mellitus with procedure are in complication, the results unspecified manager long term care section. insulin use status after 03/31/2018 Results Hemoglobin A1c (02/13/2019 7:07 AM CDT)Only the most recent of3 resultswithin the time period is included. Hemoglobin A1C 8.7 (H) <5.7 % of [facility] Comment: total Hgb MCNEIL For someone without known diabetes, a hemoglobin [...] Agency Comment Performing Organization Information: Site ID: [id number] Name: [facility] Address: [address] [place] [id number] Director: Mitzi Lyons Performing Organization Address [facility]/[employer] Phone Number [phone] [place] [address] Basic metabolic panel (11/10/2018 8:08 AM HYDROTREATER OPERATOR) Glucose 118 (H) 65 - 99 [facility] Comment: mg/dL [place] Fasting reference interval For someone without known diabetes, a glucose value between 100 and 125 mg/dL is consistent with prediabetes and should be confirmed with a follow-up test. BUN, whole blood 19 7 - 25 mg/dL [facility] [place] Creatinine 0.86 0.70 - 1.25 [facility] Comment: mg/dL [place] For patients >49 years of age, the reference limit for Creatinine is approximately 13% higher for people identified as -Sudanese. EGFR Non-Afr. 91 > OR=60 [facility] Sudanese mL/min/1.73m [place] 2 EGFR 105 > OR=60 [facility] Sudanese mL/min/1.73m [place] 2 BUN/creatinine NOT APPLICABLE 6 - 22 [facility] ratio (calc) [place] Sodium 137 135 - 146 [facility] mmol/L [place] Potassium 4.6 3.5 - 5.3 [facility] mmol/L [place] Chloride 101 98 - 110 [facility] mmol/L [place] CO2 26 20 - 32 [facility] mmol/L [place] Calcium 9.9 8.6 - 10.3 [facility] mg/dL [place] Specimen Blood Narrative Performed At FASTING:YES [facility] FASTING: YES Resulting Agency Comment Performing Organization Information: Site ID: [id number] Name: [facility] Address: [address] [place] [id number] Director: Mitzi Lyons Performing Organization Address [facility]/Zipcode Phone Number [phone] [address] Microalbumin / creatinine urine ratio (07/19/2018 7:17 AM CDT) Creatinine, 137 20 - 320 [facility] urine, random mg/dL [place] Microalbumin, 0.6 See Note: [facility] urine Comment: mg/dL [place] Reference Range: Reference Range Not established Microalbumin/crea 4 <30 mcg/mg [facility] tinine ratio Comment: creat [place] The ADA defines abnormalities in albumin excretion as follows: Category Result (mcg/mg creatinine) Normal<30 Microalbuminuria 30-299 Clinical albuminuria > SQ=307 The ADA recommends that at least two of three specimens collected within a 3-6 month period be abnormal before considering a patient to be within a diagnostic category. Specimen Narrative Performed At FASTING:YES [facility] FASTING: YES Resulting Agency Comment Performing Organization Information: Site ID: [id number] Name: [facility] Address: [address] [place] [id number] Director: Mitzi Lyons Performing Organization Address [facility]/[place] Phone Number [phone] [place] [address] Vitamin D 25 hydroxy level (07/19/2018 7:17 AM CDT) Vitamin D, 19 (L) 30 - 100 [facility] 25-hydroxy Comment: ng/mL [place] Vitamin D Status 25-OH Vitamin D: Deficiency:<20 ng/mL Insufficiency: 20 - 29 ng/mL Optimal: > or=30 ng/mL For 25-OH Vitamin D testing on patients on D2-supplementation and patients for whom quantitation of D2 and D3 fractions is required, the QuestAssureD(TM) 25-OH VIT D, (D2,D3), LC/MS/MS is recommended: order code 32691 (patients >2yrs). For more information on this test, go to: http://education.[employer]/faq/WCV563 (This link is being provided for informational/educational purposes only.) Specimen Narrative Performed At FASTING:YES [facility] FASTING: YES Resulting Agency Comment Performing Organization Information: Site ID: [id number] Name: [facility] Address: [address] [place] [id number] Director: Mitzi Lyons Performing Organization Address [facility]/Zipcode Phone Number [phone] [place] [address] Lipid panel (07/19/2018 7:17 AM CDT) Cholesterol, total 189 <200 mg/dL [facility] [place] HDL cholesterol 38 (L) >40 mg/dL [facility] [place] Triglycerides 262 (H) <150 mg/dL [facility] [place] LDL cholesterol 114 (H) mg/dL (calc) [facility] calculated Comment: [place] Reference range: <100 Desirable range <100 mg/dL for primary prevention; <70 mg/dL for patients with CHD or diabetic patients with > or=2 CHD risk factors. LDL-C is now calculated using the Bud calculation, which is a validated novel method providing better accuracy than the Friedewald equation in the estimation of LDL-C. Pillo GUERRA et al. BRENDA. 2013;310(19): 0819-7733 (http://education.[employer]/faq/AJQ779) Cholesterol/HDL 5.0 (H) <5.0 (calc) [facility] Non-HDL cholesterol 151 (H) <130 mg/dL [facility] Comment: (calc) [place] For patients with diabetes plus 1 major ASCVD risk factor, treating to a non-HDL-C goal of <100 mg/dL (LDL-C of <70 mg/dL) is considered a therapeutic option. Specimen Blood Narrative Performed At FASTING:YES [facility] FASTING: YES Resulting Agency Comment Performing Organization Information: Site ID: [id number] Name: [facility] Address: [address] [place] [phone] Director: Mitzi Lyons Performing Organization Address City/State/Zipcode Phone Number [phone] [place] [address] Comprehensive metabolic panel (07/19/2018 7:17 AM CDT) Glucose 107 (H) 65 - 99 [facility] Comment: mg/dL [place] Fasting reference interval For someone without known diabetes, a glucose value between 100 and 125 mg/dL is consistent with prediabetes and should be confirmed with a follow-up test. BUN, whole blood 33 (H) 7 - 25 mg/dL [facility] [place] Creatinine 0.93 0.70 - 1.25 [facility] Comment: mg/dL [place] For patients >49 years of age, the reference limit for Creatinine is approximately 13% higher for people identified as -Sudanese. EGFR Non-Afr. 86 > OR=60 [facility] Sudanese mL/min/1.73m [place] 2 EGFR 100 > OR=60 [facility] Sudanese mL/min/1.73m [place] 2 BUN/creatinine 35 (H) 6 - 22 [facility] ratio (calc) [place] Sodium 139 135 - 146 [facility] mmol/L [place] Potassium 4.4 3.5 - 5.3 [facility] mmol/L [place] Chloride 105 98 - 110 [facility] mmol/L [place] CO2 27 20 - 32 [facility] mmol/L [place] Calcium 9.6 8.6 - 10.3 [facility] mg/dL [place] Protein 6.8 6.1 - 8.1 [facility] g/dL [place] Albumin, S 4.2 3.6 - 5.1 [facility] g/dL [place] Globulin, total 2.6 1.9 - 3.7 [facility] g/dL (calc) [place] Albumin/globulin 1.6 1.0 - 2.5 [facility] ratio (calc) [place] Total bilirubin 0.4 0.2 - 1.2 [facility] mg/dL [place] Alkaline 46 40 - 115 U/L [facility] phosphatase [place] AST 21 10 - 35 U/L [facility] [place] ALT 26 9 - 46 U/L [facility] [place] Specimen Blood Narrative Performed At FASTING:YES [facility] FASTING: YES Resulting Agency Comment Performing Organization Information: Site ID: [id number] Name: [facility] Address: [address] [place] [address] Director: Mitzi Lyons Performing Organization Address City/State/Zipcode Phone Number [phone] [place] [address] [place], [place] [id number] after 03/31/2018 [place] (Home) [place] [phone] Advance Directives Patient has advance care planning documents on file. For more information, please contact:[place] [address]
--- OUTSIDE RECORDS SUMMARY | 2019-04-01 13:34 | XMS REPORT ---
:1955 [facility] [address] [place] [address] Dr. Anderson [address] [place] [id number] Care Team Providers Name Role Phone CHRISSMARK Arreola KELLY Unavailable Unavailable CHUNElbaLORIE Unavailable Unavailable Problems This patient has no known problems. Allergies, Adverse Reactions, Alerts This patient has no known allergies or adverse reactions. Medications This patient has no known medications. Results Test Description Test Time Test Comments Text Results Atomic Results Result Comments BLOOD CULTURE 2018-10-10 05:01:00 Test Item Value Reference Range Comments CULTURE (BEAKER) (test qnri=3150) No growth in 5 days BLOOD [id number] 05:01:00 Test Item Value Reference Range Comments CULTURE (BEAKER) (test sxrb=4986) No growth in 5 days URINE [id number] 17:30:00 Test Item Value Reference Range Comments CULTURE (BEAKER) (test xoat=8186) No growth POCT-GLUCOSE [id number] 12:44:00 Test Item Value Reference Range Comments POC-GLUCOSE METER (BEAKER) 243 mg/dL 70-110 TESTED AT [address] (test bxmo=2798) [facility] [address] VANCOMYCIN LEVEL, [id number] 09:18:00 Test Item Value Reference Range Comments VANCOMYCIN TROUGH (BEAKER) (test draw=860) 12.8 ug/mL 10.0-20.0 Please draw vancomycin trough level. If level greater than 20 mcg/mL, please hold 900 dose.POCT-GLUCOSE [id number] 08:07:00 Test Item Value Reference Range Comments POC-GLUCOSE METER (BEAKER) 225 mg/dL 70-110 TESTED AT [place] [id number] [facility] (test vbbt=8255) [facility] [address] POCT-GLUCOSE [id number] 21:42:00 Test Item Value Reference Range Comments POC-GLUCOSE METER (BEAKER) 304 mg/dL 70-110 TESTED AT [address] (test mpxv=2431) [facility] [address] POCT-GLUCOSE [id number] 18:30:00 Test Item Value Reference Range Comments POC-GLUCOSE METER (BEAKER) 259 mg/dL 70-110 TESTED AT [address] (test bjaz=0844) [place] [id number] POCT-GLUCOSE [id number] 14:03:00 Test Item Value Reference Range Comments POC-GLUCOSE METER (BEAKER) 297 mg/dL 70-110 TESTED AT [address] (test qemj=4604) [place] [id number] RESPIRATORY PANEL [id number] 12:24:00 Test Item Value Reference Range Comments HUMAN METAPNEUMOVIRUS (BEAKER) (test Not detected Not detected, Equivocal zbrp=5468) RHINOVIRUS (BEAKER) (test qomc=2449) Not detected Not detected, Equivocal INFLUENZA A (BEAKER) (test tmpm=3931) Not detected Not detected, Equivocal INFLUENZA A (NO SUBTYPE) (test Not detected, Equivocal zmuv=9900) INFLUENZA A SUBTYPE H1 (BEAKER) (test Not detected, Equivocal aifs=8444) INFLUENZA A SUBTYPE H3 (BEAKER) (test Not detected, Equivocal bxvn=0068) INFLUENZA A SUBTYPE H1-2009 (BEAKER) Not detected, Equivocal (test mqbz=9333) INFLUENZA B (BEAKER) (test bifm=5481) Not detected Not detected, Equivocal RESPIRATORY SYNCYTIAL VIRUS (BEAKER) Not detected Not detected, Equivocal (test umgu=9685) PARAINFLUENZA VIRUS 1 (BEAKER) (test Not detected Not detected, Equivocal eoax=9576) PARAINFLUENZA VIRUS 2 (BEAKER) (test Not detected Not detected, Equivocal yzjg=7069) PARAINFLUENZA VIRUS 3 (BEAKER) (test Not detected Not detected, Equivocal mfdd=4619) PARAINFLUENZA VIRUS 4 (BEAKER) (test Not detected Not detected, Equivocal afpg=2478) ADENOVIRUS (BEAKER) (test czdo=2668) Not detected Not detected, Equivocal CORONAVIRUS 229E (BEAKER) (test Not detected Not detected, Equivocal uxrx=4331) CORONAVIRUS HKU1 (BEAKER) (test Not detected Not detected, Equivocal oqyr=7313) CORONAVIRUS NL63 (BEAKER) (test Not detected Not detected, Equivocal uohv=0853) CORONAVIRUS OC43 (BEAKER) (test Not detected Not detected, Equivocal vbme=0727) BORDETELLA PERTUSSIS (BEAKER) (test Not detected Not detected, Equivocal mmvw=8207) CHLAMYDOPHILA PNEUMONIAE (BEAKER) (test Not detected Not detected, Equivocal ybfh=2146) MYCOPLASMA PNEUMONIAE (BEAKER) (test Not detected Not detected, Equivocal fufk=6337) Other viruses and bacteria not targeted by this PCR panel cannot be excluded; therefore clinical correlation and follow up of serology, culture results, and other molecular studies is required. The results are not intended to be used as the sole means for clinical diagnosis or patient management decisions. This sample was tested at the [facility] using the [employer] Respiratory Panel. It is FDA cleared and has been verified and approved by the [facility] for clinical use on nasal swab specimens. It is not FDA-cleared for use on bronchial wash/lavage samples. However, for this sample type, validation was performed and test characteristics were determined and approved, by [facility] for clinical use under the Clinical Laboratory Improvement Amendments (CLIA) of 1988 requirements. Therefore, FDA clearance isnot required. This laboratory is CLIA-certified and [employer] ([employer])-accredited to perform high complexity testing.POCT-GLUCOSE [id number] 07:58:00 Test Item Value Reference Range Comments POC-GLUCOSE METER (BEAKER) 209 mg/dL 70-110 TESTED AT [facility] [address] (test jjcl=7777) [facility] [address] RAD, CHEST, 1 VIEW, NON [id number] 07:32:00Reason for exam:->interval change in interstitial patternShould [...] edema, pneumothorax, or significant effusion. Signed: Galen Prideort Verified Date/Time: 10/05/2018 07:32:16 Reading Location: [facility] Radiology Reading Room BASIC METABOLIC [id number] 06:37:00 Test Item Value Reference Range Comments SODIUM (BEAKER) (test 140 meq/L 136-145 aoek=468) POTASSIUM (BEAKER) (test 3.2 meq/L 3.5-5.1 lnvg=816) CHLORIDE (BEAKER) (test 105 meq/L 98-107 khyr=533) CO2 (BEAKER) (test 28 meq/L 22-29 bjca=871) BLOOD UREA NITROGEN 15 mg/dL 7-21 (BEAKER) (test cvzp=368) CREATININE (BEAKER) (test 0.74 mg/dL 0.57-1.25 udva=555) GLUCOSE RANDOM (BEAKER) 191 mg/dL 70-105 (test qzew=778) CALCIUM (BEAKER) (test 9.1 mg/dL 8.4-10.2 ceyy=443) EGFR (BEAKER) (test 106 mL/min/1.73 sq m ESTIMATED GFR IS NOT nsvz=3487) ACCURATE CREATININE CLEARANCE IN PREDICTING GLOMERULAR FILTRATION RATE. ESTIMATED GFR IS NOT APPLICABLE FOR DIALYSIS PATIENTS. TROPONIN [id number] 06:35:00 Test Item Value Reference Range Comments TROPONIN I (BEAKER) (test csso=765) 0.02 ng/mL 0.00-0.03 Troponin I (TnI) levels [...] and persistent tachyarrhythmia.CBC W/PLT COUNT & AUTO [id number] 06:17:00 Test Item Value Reference Range Comments WHITE BLOOD CELL COUNT (BEAKER) (test rmjr=656) 6.3 K/ L 3.5-10.5 RED BLOOD CELL COUNT (BEAKER) (test tqhk=337) 4.43 M/ L 4.63-6.08 HEMOGLOBIN (BEAKER) (test mnaw=615) 13.6 GM/DL 13.7-17.5 HEMATOCRIT (BEAKER) (test vxht=050) 39.8 % 40.1-51.0 MEAN CORPUSCULAR VOLUME (BEAKER) (test ntbo=248) 89.8 fL 79.0-92.2 MEAN CORPUSCULAR HEMOGLOBIN (BEAKER) (test 30.7 pg 25.7-32.2 mphz=479) MEAN CORPUSCULAR HEMOGLOBIN CONC (BEAKER) (test 34.2 GM/DL 32.3-36.5 uqhx=222) RED CELL DISTRIBUTION WIDTH (BEAKER) (test 13.1 % 11.6-14.4 vyxf=049) PLATELET COUNT (BEAKER) (test joim=486) 200 K/CU MM 150-450 MEAN PLATELET VOLUME (BEAKER) (test wncw=767) 9.5 fL 9.4-12.4 NUCLEATED RED BLOOD CELLS (BEAKER) (test 0 /100 WBC 0-0 rqpz=708) NEUTROPHILS RELATIVE PERCENT (BEAKER) (test 65 % gbpb=261) LYMPHOCYTES RELATIVE PERCENT (BEAKER) (test 24 % wajh=446) MONOCYTES RELATIVE PERCENT (BEAKER) (test 8 % cawm=274) EOSINOPHILS RELATIVE PERCENT (BEAKER) (test 2 % caly=323) BASOPHILS RELATIVE PERCENT (BEAKER) (test 1 % kfek=087) NEUTROPHILS ABSOLUTE COUNT (BEAKER) (test 4.12 K/ L 1.78-5.38 sbar=975) LYMPHOCYTES ABSOLUTE COUNT (BEAKER) (test 1.51 K/ L 1.32-3.57 yzqw=096) MONOCYTES ABSOLUTE COUNT (BEAKER) (test 0.50 K/ L 0.30-0.82 kano=585) EOSINOPHILS ABSOLUTE COUNT (BEAKER) (test 0.15 K/ L 0.04-0.54 iasl=287) BASOPHILS ABSOLUTE COUNT (BEAKER) (test 0.03 K/ L 0.01-0.08 rtjp=311) IMMATURE GRANULOCYTES-RELATIVE PERCENT (BEAKER) 1 % 0-1 (test ucsz=6734) POCT-GLUCOSE [id number] 23:02:00 Test Item Value Reference Range Comments POC-GLUCOSE METER (BEAKER) 305 mg/dL 70-110 TESTED AT [facility] [address] (test qxbf=2412) [facility] [address] TROPONIN [id number] 22:20:00 Test Item Value Reference Range Comments TROPONIN I (BEAKER) (test lqzs=594) 0.03 ng/mL 0.00-0.03 Troponin I (TnI) levels [...] acidosis, acute neurological disease, and persistent tachyarrhythmia.VITAMIN [id number] 18:10:00 Test Item Value Reference Range Comments VITAMIN B12 (BEAKER) (test udqp=209) 596 pg/mL 213-816 TSH/FREE T4 IF [id number] 18:10:00 Test Item Value Reference Range Comments THYROID STIMULATING HORMONE (BEAKER) (test 0.64 uIU/mL 0.35-4.94 ispp=879) POCT-GLUCOSE [id number] 17:15:00 Test Item Value Reference Range Comments POC-GLUCOSE METER (Akoha) 178 mg/dL 70-110 TESTED AT [facility] [address] [facility] (test jkmf=0721) [facility] [address] CT, BRAIN, WITHOUT [id number] 17:08:00FINAL REPORT CT head without contrast 10/04/2018 [...] Rivas Verified Date/Time: 10/04/2018 17:08:17 Reading Location: [facility] Reading Room BLOOD GAS, [id number] 16:32:00 Test Item Value Reference Range Comments PH ARTERIAL (BEAKER) (test gmnp=426) 7.39 7.35-7.45 PCO2 ARTERIAL (BEAKER) (test yeej=510) 46 mmHg 35-45 PO2 ARTERIAL (BEAKER) (test ffak=660) 71 mmHg 80-90 O2 SATURATION ARTERIAL (BEAKER) (test rkfl=897) 94.1 % 96.0-97.0 HCO3 ARTERIAL (BEAKER) (test qmfs=746) 27 mmol/L 21-29 BASE EXCESS ARTERIAL (BEAKER) (test ypwe=359) 1.5 mmol/L -2.0-3.0 PATIENT TEMPERATURE (BEAKER) (test lxor=2606) 37.0 C FIO2 (BEAKER) (test qcgb=8384) 36.0 % RAPID INFLUENZA A&B [id number] 16:22:00 Test Item Value Reference Range Comments RAPID INFLUENZA A AG (BEAKER) (test Negative Negative, Inconclusive nrmn=8825) RAPID INFLUENZA B AG (BEAKER) (test Negative Negative, Inconclusive hdjs=9116) B-TYPE NATRIURETIC FACTOR (BNP)2018-10-04 13:22:00 Test Item Value Reference Range Comments B-TYPE NATRIURETIC PEPTIDE (BEAKER) (test cyto=535) 23 pg/mL 0-100 TROPONIN [id number] 13:21:00 Test Item Value Reference Range Comments TROPONIN I (BEAKER) (test jcgd=085) 0.04 ng/mL 0.00-0.03 Troponin I (TnI) levels [...] failure, acidosis, acute neurological disease, and persistent tachyarrhythmia.[id number] 13:12:00 Test Item Value Reference Range Comments MAGNESIUM (BEAKER) (test dpec=893) 1.1 mg/dL 1.6-2.6 BASIC METABOLIC [id number] 13:12:00 Test Item Value Reference Range Comments SODIUM (BEAKER) (test 140 meq/L 136-145 lwsq=524) POTASSIUM (BEAKER) (test 3.7 meq/L 3.5-5.1 kbxm=946) CHLORIDE (BEAKER) (test 105 meq/L 98-107 fqbp=200) CO2 (BEAKER) (test 25 meq/L 22-29 ikyx=273) BLOOD UREA NITROGEN 24 mg/dL 7-21 (BEAKER) (test jdhp=430) CREATININE (BEAKER) (test 0.90 mg/dL 0.57-1.25 toyt=816) GLUCOSE RANDOM (BEAKER) 167 mg/dL 70-105 (test mejd=277) CALCIUM (BEAKER) (test 9.1 mg/dL 8.4-10.2 yens=185) EGFR (BEAKER) (test 85 mL/min/1.73 sq m ESTIMATED GFR IS NOT dzkq=3936) ACCURATE CREATININE CLEARANCE IN PREDICTING GLOMERULAR FILTRATION RATE. ESTIMATED GFR IS NOT APPLICABLE FOR DIALYSIS PATIENTS. CBC W/PLT COUNT & AUTO [id number] 12:40:00 Test Item Value Reference Range Comments WHITE BLOOD CELL COUNT (BEAKER) (test wldv=560) 9.5 K/ L 3.5-10.5 RED BLOOD CELL COUNT (BEAKER) (test gshn=426) 4.57 M/ L 4.63-6.08 HEMOGLOBIN (BEAKER) (test dpbi=515) 13.8 GM/DL 13.7-17.5 HEMATOCRIT (BEAKER) (test egbq=405) 40.8 % 40.1-51.0 MEAN CORPUSCULAR VOLUME (BEAKER) (test jdku=892) 89.3 fL 79.0-92.2 MEAN CORPUSCULAR HEMOGLOBIN (BEAKER) (test 30.2 pg 25.7-32.2 dore=613) MEAN CORPUSCULAR HEMOGLOBIN CONC (BEAKER) (test 33.8 GM/DL 32.3-36.5 bhna=070) RED CELL DISTRIBUTION WIDTH (BEAKER) (test 13.2 % 11.6-14.4 iixr=551) PLATELET COUNT (BEAKER) (test zkeo=385) 229 K/CU MM 150-450 MEAN PLATELET VOLUME (BEAKER) (test ateu=282) 9.6 fL 9.4-12.4 NUCLEATED RED BLOOD CELLS (BEAKER) (test 0 /100 WBC 0-0 vpnx=941) NEUTROPHILS RELATIVE PERCENT (BEAKER) (test 64 % bhdt=058) LYMPHOCYTES RELATIVE PERCENT (BEAKER) (test 26 % kxam=634) MONOCYTES RELATIVE PERCENT (BEAKER) (test 8 % ujwf=521) EOSINOPHILS RELATIVE PERCENT (BEAKER) (test 2 % unrl=078) BASOPHILS RELATIVE PERCENT (BEAKER) (test 1 % jatw=140) NEUTROPHILS ABSOLUTE COUNT (BEAKER) (test 6.05 K/ L 1.78-5.38 xkkr=743) LYMPHOCYTES ABSOLUTE COUNT (BEAKER) (test 2.48 K/ L 1.32-3.57 dohs=714) MONOCYTES ABSOLUTE COUNT (BEAKER) (test 0.73 K/ L 0.30-0.82 mbyn=885) EOSINOPHILS ABSOLUTE COUNT (BEAKER) (test 0.14 K/ L 0.04-0.54 qpjv=488) BASOPHILS ABSOLUTE COUNT (BEAKER) (test 0.05 K/ L 0.01-0.08 mmhm=012) IMMATURE GRANULOCYTES-RELATIVE PERCENT (BEAKER) 1 % 0-1 (test kpbs=0428) RAD, CHEST, 1 VIEW, NON [id number] 12:31:00Reason for exam:->chest painFINAL REPORT Chest one view. Clinical history: chest pain Comparison: September 07, 2018 Discussion: A frontal chest is provided. Cardiomediastinal contours are unchanged. There is mild bibasilar atelectasis, right greater than left. No new consolidation identified. No julisa pulmonary edema, pneumothorax, or significant effusion. Osseous structures demonstrate mild degenerative changes. Signed: Galen Pride Verified Date/Time: 10/04/2018 12:31:58 Reading Location: [facility] Radiology Reading Room FUNGUS CULTURE + [id number] 16:07:00 Test Item Value Reference Range Comments CULTURE (BEAKER) (test xxrj=5142) <1+ Lauren albicans FUNGUS SMEAR (BEAKER) (test No fungi seen eumn=7399) POCT-GLUCOSE [id number] 12:22:00 Test Item Value Reference Range Comments POC-GLUCOSE METER (BEAKER) 171 mg/dL 70-110 TESTED AT [address] (test jmaj=5998) [facility] [address] POCT-GLUCOSE [id number] 08:28:00 Test Item Value Reference Range Comments POC-GLUCOSE METER (BEAKER) 212 mg/dL 70-110 TESTED AT [address] (test aese=8884) [facility] [address] POCT-GLUCOSE [id number] 21:23:00 Test Item Value Reference Range Comments POC-GLUCOSE METER (BEAKER) 266 mg/dL 70-110 TESTED AT [address] (test eiqy=1315) [facility] [address] POCT-GLUCOSE [id number] 17:14:00 Test Item Value Reference Range Comments POC-GLUCOSE METER (BEAKER) 207 mg/dL 70-110 TESTED AT [address] (test ujhj=4173) [facility] [address] POCT-GLUCOSE [id number] 11:43:00 Test Item Value Reference Range Comments POC-GLUCOSE METER (BEAKER) 182 mg/dL 70-110 TESTED AT [address] (test lfus=2150) [facility] [address] POCT-GLUCOSE [id number] 06:58:00 Test Item Value Reference Range Comments POC-GLUCOSE METER (BEAKER) 186 mg/dL 70-110 TESTED AT [address] (test kadv=7782) [facility] [address] POCT-GLUCOSE [id number] 21:22:00 Test Item Value Reference Range Comments POC-GLUCOSE METER (BEAKER) 230 mg/dL 70-110 TESTED AT [address] (test nwka=1639) [facility] [address] POCT-GLUCOSE [id number] 16:28:00 Test Item Value Reference Range Comments POC-GLUCOSE METER (BEAKER) 218 mg/dL 70-110 TESTED AT [address] (test yohs=4027) [facility] [address] POCT-GLUCOSE [id number] 11:28:00 Test Item Value Reference Range Comments POC-GLUCOSE METER (BEAKER) 215 mg/dL 70-110 TESTED AT [address] (test tind=8152) [place] [address] POCT-GLUCOSE [id number] 06:58:00 Test Item Value Reference Range Comments POC-GLUCOSE METER (BEAKER) 197 mg/dL 70-110 TESTED AT [address] (test brhe=7061) [place] [address] POCT-GLUCOSE [id number] 21:35:00 Test Item Value Reference Range Comments POC-GLUCOSE METER (BEAKER) 266 mg/dL 70-110 TESTED AT [address] (test bhje=5785) [place] [address] POCT-GLUCOSE [id number] 17:08:00 Test Item Value Reference Range Comments POC-GLUCOSE METER (BEAKER) 189 mg/dL 70-110 TESTED AT [address] (test hezj=3357) [place] [address] POCT-GLUCOSE [id number] 11:44:00 Test Item Value Reference Range Comments POC-GLUCOSE METER (BEAKER) 223 mg/dL 70-110 TESTED AT [address] (test julf=1605) [place] [address] POCT-GLUCOSE [id number] 07:21:00 Test Item Value Reference Range Comments POC-GLUCOSE METER (BEAKER) 173 mg/dL 70-110 TESTED AT [address] (test twcv=7261) [place] [address] RAD, CHEST, 1 VIEW, NON [id number] 07:12:00Reason for exam:->pulm edemaShould this be performed at the bedside?->YesFINAL REPORT CLINICAL HISTORY: pulm edema TECHNIQUE: 1 view of the chest. COMPARISON : 09/06/2018 IMPRESSION: Right central line has been removed. There is decreased bibasilar atelectasis. There is no significant appearing pleural fluid. The cardiomediastinal silhouette is magnified by technique. Signed: Yimi Harkins MDReport Verified Date/Time: 09/07/2018 07:12:01 Reading Location : [facility] Radiology Reading Room [id number] 06:13:00 Test Item Value Reference Range Comments PHOSPHORUS (BEAKER) (test gace=588) 2.0 mg/dL 2.3-4.7 [id number] 06:13:00 Test Item Value Reference Range Comments MAGNESIUM (BEAKER) (test ghor=928) 2.2 mg/dL 1.6-2.6 COMPREHENSIVE METABOLIC [id number] 06:13:00 Test Item Value Reference Range Comments TOTAL PROTEIN (BEAKER) 6.1 gm/dL 6.0-8.3 (test ivkh=706) ALBUMIN (BEAKER) (test 3.3 g/dL 3.5-5.0 zuic=7198) ALKALINE PHOSPHATASE 44 U/L 40-150 (BEAKER) (test ojrr=293) BILIRUBIN TOTAL (BEAKER) 0.6 mg/dL 0.2-1.2 (test gqnp=698) SODIUM (BEAKER) (test 141 meq/L 136-145 elow=007) POTASSIUM (BEAKER) (test 3.5 meq/L 3.5-5.1 ggew=148) CHLORIDE (BEAKER) (test 109 meq/L 98-107 wmoj=264) CO2 (BEAKER) (test 24 meq/L 22-29 qver=749) BLOOD UREA NITROGEN 11 mg/dL 7-21 (BEAKER) (test afvq=994) CREATININE (BEAKER) (test 0.63 mg/dL 0.57-1.25 cbuv=669) GLUCOSE RANDOM (BEAKER) 134 mg/dL 70-105 (test lkth=170) CALCIUM (BEAKER) (test 8.3 mg/dL 8.4-10.2 slzy=681) AST (SGOT) (BEAKER) (test 21 U/L 5-34 ijyo=231) ALT (SGPT) (BEAKER) (test 12 U/L 6-55 ummb=949) EGFR (BEAKER) (test 128 mL/min/1.73 sq ESTIMATED GFR IS NOT kgxt=5374) m ACCURATE CREATININE CLEARANCE IN PREDICTING GLOMERULAR FILTRATION RATE. ESTIMATED GFR IS NOT APPLICABLE FOR DIALYSIS PATIENTS. CBC W/PLT COUNT & AUTO [id number] 05:22:00 Test Item Value Reference Range Comments WHITE BLOOD CELL COUNT (BEAKER) (test onjj=092) 6.9 K/ L 3.5-10.5 RED BLOOD CELL COUNT (BEAKER) (test dpfl=533) 3.83 M/ L 4.63-6.08 HEMOGLOBIN (BEAKER) (test hhmn=064) 11.8 GM/DL 13.7-17.5 HEMATOCRIT (BEAKER) (test slje=405) 35.0 % 40.1-51.0 MEAN CORPUSCULAR VOLUME (BEAKER) (test jbal=817) 91.4 fL 79.0-92.2 MEAN CORPUSCULAR HEMOGLOBIN (BEAKER) (test 30.8 pg 25.7-32.2 xkby=984) MEAN CORPUSCULAR HEMOGLOBIN CONC (BEAKER) (test 33.7 GM/DL 32.3-36.5 fygn=918) RED CELL DISTRIBUTION WIDTH (BEAKER) (test 13.3 % 11.6-14.4 mzne=492) PLATELET COUNT (BEAKER) (test oysm=396) 237 K/CU MM 150-450 MEAN PLATELET VOLUME (BEAKER) (test yurb=589) 9.8 fL 9.4-12.4 NUCLEATED RED BLOOD CELLS (BEAKER) (test 0 /100 WBC 0-0 ufha=601) NEUTROPHILS RELATIVE PERCENT (BEAKER) (test 61 % yygp=204) LYMPHOCYTES RELATIVE PERCENT (BEAKER) (test 29 % bqza=362) MONOCYTES RELATIVE PERCENT (BEAKER) (test 8 % vvmg=494) EOSINOPHILS RELATIVE PERCENT (BEAKER) (test 1 % gpev=137) BASOPHILS RELATIVE PERCENT (BEAKER) (test 0 % zxat=121) NEUTROPHILS ABSOLUTE COUNT (BEAKER) (test 4.21 K/ L 1.78-5.38 yljg=954) LYMPHOCYTES ABSOLUTE COUNT (BEAKER) (test 1.98 K/ L 1.32-3.57 tqyf=510) MONOCYTES ABSOLUTE COUNT (BEAKER) (test 0.54 K/ L 0.30-0.82 qqxk=873) EOSINOPHILS ABSOLUTE COUNT (BEAKER) (test 0.07 K/ L 0.04-0.54 cpfn=056) BASOPHILS ABSOLUTE COUNT (BEAKER) (test 0.03 K/ L 0.01-0.08 yhij=933) IMMATURE GRANULOCYTES-RELATIVE PERCENT (BEAKER) 1 % 0-1 (test vhwg=3426) POCT-GLUCOSE [id number] 21:22:00 Test Item Value Reference Range Comments POC-GLUCOSE METER (BEAKER) 223 mg/dL 70-110 TESTED AT [address] (test gdtq=7215) [facility] [address] POCT-GLUCOSE [id number] 17:32:00 Test Item Value Reference Range Comments POC-GLUCOSE METER (BEAKER) 204 mg/dL 70-110 TESTED AT [address] (test xoda=4938) [facility] [address] MISCELLANEOUS LAB [id number] 14:45:00 Test Item Value Reference Range Comments SCAN RESULT (test llhp=[id number]) POCT-GLUCOSE [id number] 13:12:00 Test Item Value Reference Range Comments POC-GLUCOSE METER (BEAKER) 224 mg/dL 70-110 TESTED AT [address] (test pqku=0383) [facility] [address] POCT-GLUCOSE [id number] 07:36:00 Test Item Value Reference Range Comments POC-GLUCOSE METER (BEAKER) 173 mg/dL 70-110 TESTED AT [address] (test gjwn=1197) [facility] [address] RAD, CHEST, 1 VIEW, NON [id number] 07:19:00Reason for exam:->pulm edemaShould this be performed [...] MDReport Verified Date/Time: 09/06/2018 07:19:50 Reading Location: [facility] Radiology Reading Room COMPREHENSIVE METABOLIC [id number] 05:49:00 Test Item Value Reference Range Comments TOTAL PROTEIN (BEAKER) 5.6 gm/dL 6.0-8.3 (test udfl=861) ALBUMIN (BEAKER) (test 3.0 g/dL 3.5-5.0 zblz=6572) ALKALINE PHOSPHATASE 38 U/L 40-150 (BEAKER) (test fwgs=772) BILIRUBIN TOTAL (BEAKER) 0.5 mg/dL 0.2-1.2 (test wajm=404) SODIUM (BEAKER) (test 142 meq/L 136-145 qbbw=190) POTASSIUM (BEAKER) (test 3.4 meq/L 3.5-5.1 zyox=269) CHLORIDE (BEAKER) (test 112 meq/L 98-107 covc=224) CO2 (BEAKER) (test 24 meq/L 22-29 xscb=969) BLOOD UREA NITROGEN 14 mg/dL 7-21 (BEAKER) (test rhkb=100) CREATININE (BEAKER) (test 0.59 mg/dL 0.57-1.25 gxbu=179) GLUCOSE RANDOM (BEAKER) 147 mg/dL 70-105 (test scxh=316) CALCIUM (BEAKER) (test 7.7 mg/dL 8.4-10.2 sbkn=535) AST (SGOT) (BEAKER) (test 16 U/L 5-34 ccya=199) ALT (SGPT) (BEAKER) (test 10 U/L 6-55 dvlq=576) EGFR (BEAKER) (test 138 mL/min/1.73 sq ESTIMATED GFR IS NOT cnon=2305) m ACCURATE CREATININE CLEARANCE IN PREDICTING GLOMERULAR FILTRATION RATE. ESTIMATED GFR IS NOT APPLICABLE FOR DIALYSIS PATIENTS. [id number] 05:47:00 Test Item Value Reference Range Comments PHOSPHORUS (BEAKER) (test ujhx=191) 1.9 mg/dL 2.3-4.7 [id number] 05:47:00 Test Item Value Reference Range Comments MAGNESIUM (BEAKER) (test eglk=777) 2.0 mg/dL 1.6-2.6 CBC W/PLT COUNT & AUTO [id number] 05:34:00 Test Item Value Reference Range Comments WHITE BLOOD CELL COUNT (BEAKER) (test fpwc=313) 6.7 K/ L 3.5-10.5 RED BLOOD CELL COUNT (BEAKER) (test ejuw=735) 3.80 M/ L 4.63-6.08 HEMOGLOBIN (BEAKER) (test sual=873) 11.6 GM/DL 13.7-17.5 HEMATOCRIT (BEAKER) (test gfea=918) 34.9 % 40.1-51.0 MEAN CORPUSCULAR VOLUME (BEAKER) (test jjia=380) 91.8 fL 79.0-92.2 MEAN CORPUSCULAR HEMOGLOBIN (BEAKER) (test 30.5 pg 25.7-32.2 eoxm=930) MEAN CORPUSCULAR HEMOGLOBIN CONC (BEAKER) (test 33.2 GM/DL 32.3-36.5 okhw=861) RED CELL DISTRIBUTION WIDTH (BEAKER) (test 13.2 % 11.6-14.4 qatn=205) PLATELET COUNT (BEAKER) (test incf=903) 215 K/CU MM 150-450 MEAN PLATELET VOLUME (BEAKER) (test emcv=357) 9.2 fL 9.4-12.4 NUCLEATED RED BLOOD CELLS (BEAKER) (test 0 /100 WBC 0-0 zegj=839) NEUTROPHILS RELATIVE PERCENT (BEAKER) (test 68 % bsjz=180) LYMPHOCYTES RELATIVE PERCENT (BEAKER) (test 22 % enno=336) MONOCYTES RELATIVE PERCENT (BEAKER) (test 7 % ahnb=992) EOSINOPHILS RELATIVE PERCENT (BEAKER) (test 2 % nozq=309) BASOPHILS RELATIVE PERCENT (BEAKER) (test 0 % sjvz=585) NEUTROPHILS ABSOLUTE COUNT (BEAKER) (test 4.53 K/ L 1.78-5.38 qavg=636) LYMPHOCYTES ABSOLUTE COUNT (BEAKER) (test 1.50 K/ L 1.32-3.57 btyf=931) MONOCYTES ABSOLUTE COUNT (BEAKER) (test 0.47 K/ L 0.30-0.82 ckaq=600) EOSINOPHILS ABSOLUTE COUNT (BEAKER) (test 0.13 K/ L 0.04-0.54 ency=802) BASOPHILS ABSOLUTE COUNT (BEAKER) (test 0.02 K/ L 0.01-0.08 pmpz=771) IMMATURE GRANULOCYTES-RELATIVE PERCENT (BEAKER) 1 % 0-1 (test lcxu=5709) POCT-GLUCOSE [id number] 22:53:00 Test Item Value Reference Range Comments POC-GLUCOSE METER (BEAKER) 206 mg/dL 70-110 TESTED AT [facility] [address] [facility] (test huuk=6478) [facility] [address] MR, SPINE, LUMBAR, [id number] 18:10:00FINAL REPORT MRI lumbar spine with and [...] and left foraminal disc protrusions. There is prbj-ql-lkyexlwr narrowing of the central canal, and left [...] several levels as described. Signed: Galen Pride Verified Date/Time: 09/05/2018 18:10:50 Reading Location: [address] Neuro Reading Room POCT-GLUCOSE [id number] 18:07:00 Test Item Value Reference Range Comments POC-GLUCOSE METER (BEAKER) 183 mg/dL 70-110 TESTED AT [facility] [address] [place] [address] (test qheh=5294) [facility] [address] POCT-GLUCOSE [id number] 11:53:00 Test Item Value Reference Range Comments POC-GLUCOSE METER (BEAKER) 324 mg/dL 70-110 Notified MILLA CARPENTER/TESTED AT [facility] (test fwty=6687) [address] [facility] [address] [id number] 10:47:00 Test Item Value Reference Range Comments LIPASE (BEAKER) (test qncq=720) 141 U/L 8-78 POCT-GLUCOSE [id number] 07:43:00 Test Item Value Reference Range Comments POC-GLUCOSE METER (BEAKER) 176 mg/dL 70-110 TESTED AT [facility] [address] (test jumz=5383) [facility] [address] RAD, CHEST, 1 VIEW, NON [id number] 05:49:00Reason for exam:->pulm edemaShould this be performed at the bedside?->YesFINAL REPORT RAD, CHEST, 1 VIEW, NON DEPT INDICATION: pulm edema COMPARISON: Prior day's exam FINDINGS: Portable frontal view of the chest. IMPRESSION: Support Lines: Stable. Lungs and pleura: Unchanged airspace and pleural opacities. No pneumothorax.Heart and mediastinum: Stable contours. Additional findings: None. Signed: Ozzie Avila Verified Date/Time: 09/05/2018 05:49:04 Reading Location: [address] Transitional Reading Room [id number] 04:38 :00 Test Item Value Reference Range Comments PHOSPHORUS (BEAKER) (test vlgv=284) 2.6 mg/dL 2.3-4.7 [id number] 04:38:00 Test Item Value Reference Range Comments MAGNESIUM (BEAKER) (test qqvh=895) 2.2 mg/dL 1.6-2.6 COMPREHENSIVE METABOLIC [id number] 04:38:00 Test Item Value Reference Range Comments TOTAL PROTEIN (BEAKER) 6.1 gm/dL 6.0-8.3 (test udor=843) ALBUMIN (BEAKER) (test 3.3 g/dL 3.5-5.0 bcqn=4033) ALKALINE PHOSPHATASE 42 U/L 40-150 (BEAKER) (test ygri=293) BILIRUBIN TOTAL (BEAKER) 0.6 mg/dL 0.2-1.2 (test useo=377) SODIUM (BEAKER) (test 144 meq/L 136-145 xayo=839) POTASSIUM (BEAKER) (test 3.9 meq/L 3.5-5.1 ivxg=776) CHLORIDE (BEAKER) (test 111 meq/L 98-107 vqsy=130) CO2 (BEAKER) (test 26 meq/L 22-29 vpva=180) BLOOD UREA NITROGEN 22 mg/dL 7-21 (BEAKER) (test llny=480) CREATININE (BEAKER) (test 0.72 mg/dL 0.57-1.25 dnyq=190) GLUCOSE RANDOM (BEAKER) 165 mg/dL 70-105 (test gnsq=227) CALCIUM (BEAKER) (test 8.4 mg/dL 8.4-10.2 trrn=239) AST (SGOT) (BEAKER) (test 16 U/L 5-34 nxjo=876) ALT (SGPT) (BEAKER) (test 10 U/L 6-55 rkty=073) EGFR (BEAKER) (test 110 mL/min/1.73 sq ESTIMATED GFR IS NOT uhgw=5908) m ACCURATE CREATININE CLEARANCE IN PREDICTING GLOMERULAR FILTRATION RATE. ESTIMATED GFR IS NOT APPLICABLE FOR DIALYSIS PATIENTS. CBC W/PLT COUNT & AUTO [id number] 04:16:00 Test Item Value Reference Range Comments WHITE BLOOD CELL COUNT (BEAKER) (test ohjk=805) 10.5 K/ L 3.5-10.5 RED BLOOD CELL COUNT (BEAKER) (test rnwn=579) 3.87 M/ L 4.63-6.08 HEMOGLOBIN (BEAKER) (test pqsv=843) 11.8 GM/DL 13.7-17.5 HEMATOCRIT (BEAKER) (test iqfi=918) 36.0 % 40.1-51.0 MEAN CORPUSCULAR VOLUME (BEAKER) (test ssxb=769) 93.0 fL 79.0-92.2 MEAN CORPUSCULAR HEMOGLOBIN (BEAKER) (test 30.5 pg 25.7-32.2 fpcf=411) MEAN CORPUSCULAR HEMOGLOBIN CONC (BEAKER) (test 32.8 GM/DL 32.3-36.5 ahab=361) RED CELL DISTRIBUTION WIDTH (BEAKER) (test 13.5 % 11.6-14.4 diqe=253) PLATELET COUNT (BEAKER) (test wase=374) 263 K/CU MM 150-450 MEAN PLATELET VOLUME (BEAKER) (test khao=131) 9.5 fL 9.4-12.4 NUCLEATED RED BLOOD CELLS (BEAKER) (test 0 /100 WBC 0-0 dktb=582) NEUTROPHILS RELATIVE PERCENT (BEAKER) (test 74 % urce=072) LYMPHOCYTES RELATIVE PERCENT (BEAKER) (test 18 % jdiu=881) MONOCYTES RELATIVE PERCENT (BEAKER) (test 5 % sbtb=726) EOSINOPHILS RELATIVE PERCENT (BEAKER) (test 2 % hprj=860) BASOPHILS RELATIVE PERCENT (BEAKER) (test 0 % dcwz=816) NEUTROPHILS ABSOLUTE COUNT (BEAKER) (test 7.70 K/ L 1.78-5.38 ldgt=176) LYMPHOCYTES ABSOLUTE COUNT (BEAKER) (test 1.89 K/ L 1.32-3.57 luxb=236) MONOCYTES ABSOLUTE COUNT (BEAKER) (test 0.56 K/ L 0.30-0.82 hlsh=216) EOSINOPHILS ABSOLUTE COUNT (BEAKER) (test 0.18 K/ L 0.04-0.54 ootn=354) BASOPHILS ABSOLUTE COUNT (BEAKER) (test 0.04 K/ L 0.01-0.08 drkn=132) IMMATURE GRANULOCYTES-RELATIVE PERCENT (BEAKER) 1 % 0-1 (test rkhb=2299) U/S, ABDOMINAL, [id number] 02:32:00Reason for exam:->abd distension, nausea,vomittingShould this be [...] Ozzie Avila Verified Date/Time: 02:32:11 Reading Location: [address] Transitional Reading Room Electronically signed by: Hitesh ZARATE 09/05/2018 02:32 AMCT, [id number] 21:34:00Elevated lipaseFINAL REPORT CLINICAL HISTORY: Nausea, vomiting, [...] Verified Date/Time: 09/04/2018 21: 34:29 Reading Location: [address] Reading Room POCT- GLUCOSE [id number] 21:30:00 Test Item Value Reference Range Comments POC-GLUCOSE METER (BEAKER) 159 mg/dL 70-110 TESTED AT [address] (test jzsm=3391) [facility] [address] VANCOMYCIN LEVEL, [id number] 21:17:00 Test Item Value Reference Range Comments VANCOMYCIN TROUGH (BEAKER) (test pxyd=843) 9.0 ug/mL 10.0-20.0 Please draw vancomycin trough level 09/04 at 2030 hold if trough >20POCT- GLUCOSE [id number] 18:32:00 Test Item Value Reference Range Comments POC-GLUCOSE METER (BEAKER) 174 mg/dL 70-110 TESTED AT [address] (test yqkc=7424) [facility] [address] NEEDLE EMG, 4 [id number] 16:22:00Reason for exam:->r/o [facility] CenterNeurophysiology DepartmentELECTROMYOGRAPHY - NERVE CONDUCTION STUDY [address] [place], [place] [id number] Name : Garrison Burnett : Date of : 1955 Gender : Male Date of Exam: 09/04/2018 3:58 PMReferring Physician:Valdo SinghicExamining Physician: Erica Henriquez Patient History: Patient is [...] mm Median.LWrist 4.0 ms 4.6 ms 4 𕞔V Digit II (index finger)-Wrist 4.0 ms 130 mm 33 m/sUlnar.LWrist NR NR NR Digit V (little finger)-Wrist 110 mm Radial.LForearm 1.1 ms 2.0 ms 23 ꨭV Anatomical snuff box-Forearm 1.1 ms 110 mm 55 m/sSural.RLower leg 2.4 ms 3.5 ms 5 㘨V Ankle-Lower leg 2.4 ms 140 mm 40 m/sMedian.RWrist 3.8 ms 4.5 ms 8 ᦿV Digit II (index finger)-Wrist 3.8 ms 130 mm 34 m/sUlnar.RWrist NR NR NR Digit V (little finger)- Wrist 110 mm Radial.RForearm 1.9 ms 2.5 ms 18 驊V Anatomical snuff box-Forearm 1.9 ms 95 mm [...] Henriquez M.D. RAD, CHEST, 1 VIEW, NON [id number] 10:58:00Reason for exam:->pulm edemaShould this be performed [...] gaseous distention of the stomach. Signed: Galen Pride Verified Date/Time: 09/04/2018 10:58:17 Reading Location: [facility] Radiology Reading Room [id number] 10:53:00 Test Item Value Reference Range Comments LIPASE (BEAKER) (test zcxw=567) 122 U/L 8-78 [id number] 10:53:00 Test Item Value Reference Range Comments AMYLASE (BEAKER) (test guvd=122) 86 U/L 25-125 RAD, ABDOMEN/KUB, 1 VIEW [id number] 10:34:00Reason for exam:->abdominal distensionShould this be performed [...] Pride Verified Date/Time: 09/04/2018 10:34:31 Reading Location: [facility] Radiology Reading Room Electronically signed by: GALEN PRIDE M.D. on09/04/2018 10:34 AMBLOOD [id number] 10:01:00 Test Item Value Reference Range Comments CULTURE (BEAKER) (test ybrr=5632) No growth in 5 days POCT-GLUCOSE [id number] 08:11:00 Test Item Value Reference Range Comments POC-GLUCOSE METER (BEAKER) 233 mg/dL 70-110 TESTED AT [address] (test tflq=0259) [facility] [address] BLOOD [id number] 05:01:00 Test Item Value Reference Range Comments CULTURE (BEAKER) (test wpau=7594) No growth in 5 days [id number] 03:50:00 Test Item Value Reference Range Comments PHOSPHORUS (BEAKER) (test axus=058) 2.5 mg/dL 2.3-4.7 [id number] 03:50:00 Test Item Value Reference Range Comments MAGNESIUM (BEAKER) (test fjyz=560) 2.2 mg/dL 1.6-2.6 COMPREHENSIVE METABOLIC [id number] 03:50:00 Test Item Value Reference Range Comments TOTAL PROTEIN (BEAKER) 7.1 gm/dL 6.0-8.3 (test xswf=460) ALBUMIN (BEAKER) (test 3.7 g/dL 3.5-5.0 ixih=5939) ALKALINE PHOSPHATASE 46 U/L 40-150 (BEAKER) (test cukq=019) BILIRUBIN TOTAL (BEAKER) 0.6 mg/dL 0.2-1.2 (test oioa=570) SODIUM (BEAKER) (test 143 meq/L 136-145 wrzb=277) POTASSIUM (BEAKER) (test 3.8 meq/L 3.5-5.1 zuxw=602) CHLORIDE (BEAKER) (test 106 meq/L 98-107 ptyv=520) CO2 (BEAKER) (test 27 meq/L 22-29 lpfj=534) BLOOD UREA NITROGEN 20 mg/dL 7-21 (BEAKER) (test zdtj=386) CREATININE (BEAKER) (test 0.76 mg/dL 0.57-1.25 ocyb=960) GLUCOSE RANDOM (BEAKER) 219 mg/dL 70-105 (test tqlp=696) CALCIUM (BEAKER) (test 9.1 mg/dL 8.4-10.2 entn=498) AST (SGOT) (BEAKER) (test 17 U/L 5-34 bipr=259) ALT (SGPT) (BEAKER) (test 14 U/L 6-55 vjvn=635) EGFR (BEAKER) (test 103 mL/min/1.73 sq ESTIMATED GFR IS NOT ypsn=7507) m ACCURATE CREATININE CLEARANCE IN PREDICTING GLOMERULAR FILTRATION RATE. ESTIMATED GFR IS NOT APPLICABLE FOR DIALYSIS PATIENTS. CBC W/PLT COUNT & AUTO [id number] 03:33:00 Test Item Value Reference Range Comments WHITE BLOOD CELL COUNT (BEAKER) (test hvcc=081) 13.5 K/ L 3.5-10.5 RED BLOOD CELL COUNT (BEAKER) (test xhph=927) 4.28 M/ L 4.63-6.08 HEMOGLOBIN (BEAKER) (test unhj=990) 13.3 GM/DL 13.7-17.5 HEMATOCRIT (BEAKER) (test xokr=799) 39.0 % 40.1-51.0 MEAN CORPUSCULAR VOLUME (BEAKER) (test pvbd=549) 91.1 fL 79.0-92.2 MEAN CORPUSCULAR HEMOGLOBIN (BEAKER) (test 31.1 pg 25.7-32.2 xtov=159) MEAN CORPUSCULAR HEMOGLOBIN CONC (BEAKER) (test 34.1 GM/DL 32.3-36.5 oage=389) RED CELL DISTRIBUTION WIDTH (BEAKER) (test 13.4 % 11.6-14.4 ktyk=050) PLATELET COUNT (BEAKER) (test wuqm=197) 270 K/CU MM 150-450 MEAN PLATELET VOLUME (BEAKER) (test olbq=341) 9.4 fL 9.4-12.4 NUCLEATED RED BLOOD CELLS (BEAKER) (test 0 /100 WBC 0-0 yswc=844) NEUTROPHILS RELATIVE PERCENT (BEAKER) (test 84 % wswa=542) LYMPHOCYTES RELATIVE PERCENT (BEAKER) (test 9 % ufuu=703) MONOCYTES RELATIVE PERCENT (BEAKER) (test 5 % bykm=643) EOSINOPHILS RELATIVE PERCENT (BEAKER) (test 1 % wwky=006) BASOPHILS RELATIVE PERCENT (BEAKER) (test 0 % brby=352) NEUTROPHILS ABSOLUTE COUNT (BEAKER) (test 11.40 K/ L 1.78-5.38 kyix=432) LYMPHOCYTES ABSOLUTE COUNT (BEAKER) (test 1.22 K/ L 1.32-3.57 qhwy=980) MONOCYTES ABSOLUTE COUNT (BEAKER) (test 0.71 K/ L 0.30-0.82 qcjd=796) EOSINOPHILS ABSOLUTE COUNT (BEAKER) (test 0.08 K/ L 0.04-0.54 bzus=060) BASOPHILS ABSOLUTE COUNT (BEAKER) (test 0.04 K/ L 0.01-0.08 qrxs=415) IMMATURE GRANULOCYTES-RELATIVE PERCENT (BEAKER) 1 % 0-1 (test kvip=6762) POCT-GLUCOSE [id number] 22:18:00 Test Item Value Reference Range Comments POC-GLUCOSE METER (BEAKER) 262 mg/dL 70-110 TESTED AT [facility] [address] [facility] (test sokv=8042) [facility] [address] C. DIFFICILE GDH [id number] 20:32:00 Test Item Value Reference Range Comments CDT TOXIN (test Negative Negative pido=[id number]) CDT GDH ANTIGEN (test Negative Negative No indication of Clostridium gnhn=[id number]) difficile infection and no colonization. Discontinue enteric isolation and therapy. Testing performed by [employer] Rapid Cassette Assay. For GDH, published sensitivity of the assay is 98.7% compared to cytotoxicity testing. For Toxin AB, published sensitivity is 87.8% and specificity 99.4% compared to cytotoxicity testing.Verification of kit performance was done by the [facility] Microbiology Lab prior to clinical use.RAD, ABDOMEN/KUB, 1 VIEW [id number] 18: 40:00Reason for exam:->abdominal distensionShould this be performed at the bedside?->YesFINAL REPORT Comparison: 08/30/2018 TECHNIQUE: Frontal images of the abdomen Discussion: Abdomen: Bowel gas pattern is nonobstructed. There is no free intraperitoneal air. No soft tissue abnormalities. No acute skeletal abnormality. Right upper: Cholecystectomy clips are seen.Impression: 1. Nonspecific bowel gas pattern. Signed: Shailesh Pinaeport Verified Date/Time: 09/03/2018 18:40:53 Reading Location: [facility] Reading Room Electronically signed by: SHAILESH PINA M.D. on 2017 06:40 PMPOCT-GLUCOSE [id number] 17:23:00 Test Item Value Reference Range Comments POC-GLUCOSE METER (BEAKER) 215 mg/dL 70-110 TESTED AT [facility] [address] (test voxm=2381) [facility] [address] BLOOD GAS, [id number] 17:05:00 Test Item Value Reference Range Comments PH ARTERIAL (BEAKER) (test doxc=323) 7.49 7.35-7.45 PCO2 ARTERIAL (BEAKER) (test bzde=439) 37 mmHg 35-45 PO2 ARTERIAL (BEAKER) (test kbkp=510) 69 mmHg 80-90 O2 SATURATION ARTERIAL (BEAKER) (test hhgk=009) 95.1 % 96.0-97.0 HCO3 ARTERIAL (BEAKER) (test jfuf=086) 27 mmol/L 21-29 BASE EXCESS ARTERIAL (BEAKER) (test rttb=885) 3.8 mmol/L -2.0-3.0 PATIENT TEMPERATURE (BEAKER) (test bagb=6584) 36.9 C FIO2 (BEAKER) (test hafb=5212) 28.0 % BLOOD GAS, [id number] 16:42:00 Test Item Value Reference Range Comments PH ARTERIAL (BEAKER) (test zvkk=370) 7.45 7.35-7.45 PCO2 ARTERIAL (BEAKER) (test fnez=069) 39 mmHg 35-45 PO2 ARTERIAL (BEAKER) (test vdev=554) 40 mmHg 80-90 O2 SATURATION ARTERIAL (BEAKER) (test jahp=634) 78.0 % 96.0-97.0 HCO3 ARTERIAL (BEAKER) (test suma=768) 27 mmol/L 21-29 BASE EXCESS ARTERIAL (BEAKER) (test heio=277) 2.6 mmol/L -2.0-3.0 PATIENT TEMPERATURE (BEAKER) (test wiwl=5892) 36.7 C FIO2 (BEAKER) (test bdty=1486) 28.0 % [id number] 15:06:00Medical Cytology Report Case: [id number] Authorizing Provider: Nannette Marie NP Collected: 08/31/2018 1146 Ordering Location: [place] [address] CCU Received: 09/03/2018 0947 Pathologist: Shannon Norman Specimen: Lung, Right Middle Lobe RIGHT MIDDLE LOBE LUNG, BAL ( CYTOSPINS): - NEGATIVE FOR MALIGNANCY Signing Pathologist Direct Phone Line: [phone] signed by Shannon Norman on 09/03/2018 at 3:06 [id number], PneumoniaRIGHT MIDDLE LOBE LUNG BALPrepared 4 cytospins from 20 ml colorless fluidCollected: [id number]: [id number] [facility], Department of Pathology, [address] [place] [address], [facility], [facility] of [facility], [address] [place] [address] , [facility], [facility] of Pathology, [address] [place] [address], TUBD-GLUCOSE [id number] 11:22:00 Test Item Value Reference Range Comments POC-GLUCOSE METER (BEAKER) 224 mg/dL 70-110 TESTED AT [address] (test jhcn=9057) [place] [address] RAD, CHEST, 1 VIEW, NON [id number] 06:16:00Reason for exam:->ETT placementShould this be performed [...] contours. Additional findings: None. Signed: Ozzie Avila MDReport Verified Date/Time: 09/03/2018 06:16 :06 Reading Location: [address] Transitional Reading Room [id number] 05:13:00 Test Item Value Reference Range Comments MAGNESIUM (BEAKER) (test jabd=045) 2.0 mg/dL 1.6-2.6 BASIC METABOLIC [id number] 05:13:00 Test Item Value Reference Range Comments SODIUM (BEAKER) (test 142 meq/L 136-145 afxp=100) POTASSIUM (BEAKER) (test 4.1 meq/L 3.5-5.1 ccul=336) CHLORIDE (BEAKER) (test 108 meq/L 98-107 jpbw=274) CO2 (BEAKER) (test 21 meq/L 22-29 ddnx=600) BLOOD UREA NITROGEN 20 mg/dL 7-21 (BEAKER) (test dlon=736) CREATININE (BEAKER) (test 0.78 mg/dL 0.57-1.25 uodb=242) GLUCOSE RANDOM (BEAKER) 213 mg/dL 70-105 (test ebem=280) CALCIUM (BEAKER) (test 9.5 mg/dL 8.4-10.2 zpsu=221) EGFR (BEAKER) (test 100 mL/min/1.73 sq m ESTIMATED GFR IS NOT qjel=0160) ACCURATE CREATININE CLEARANCE IN PREDICTING GLOMERULAR FILTRATION RATE. ESTIMATED GFR IS NOT APPLICABLE FOR DIALYSIS PATIENTS. CBC W/PLT COUNT & AUTO [id number] 04:59:00 Test Item Value Reference Range Comments WHITE BLOOD CELL COUNT (BEAKER) (test ynsd=199) 14.4 K/ L 3.5-10.5 RED BLOOD CELL COUNT (BEAKER) (test rdai=974) 4.35 M/ L 4.63-6.08 HEMOGLOBIN (BEAKER) (test vtul=386) 13.2 GM/DL 13.7-17.5 HEMATOCRIT (BEAKER) (test fqap=601) 39.2 % 40.1-51.0 MEAN CORPUSCULAR VOLUME (BEAKER) (test zumy=093) 90.1 fL 79.0-92.2 MEAN CORPUSCULAR HEMOGLOBIN (BEAKER) (test 30.3 pg 25.7-32.2 tbun=316) MEAN CORPUSCULAR HEMOGLOBIN CONC (BEAKER) (test 33.7 GM/DL 32.3-36.5 jwzd=033) RED CELL DISTRIBUTION WIDTH (BEAKER) (test 13.3 % 11.6-14.4 qupm=564) PLATELET COUNT (BEAKER) (test hetf=769) 254 K/CU MM 150-450 MEAN PLATELET VOLUME (BEAKER) (test xkrq=297) 9.5 fL 9.4-12.4 NUCLEATED RED BLOOD CELLS (BEAKER) (test 0 /100 WBC 0-0 yglm=620) NEUTROPHILS RELATIVE PERCENT (BEAKER) (test 85 % zmlw=654) LYMPHOCYTES RELATIVE PERCENT (BEAKER) (test 8 % cwrz=363) MONOCYTES RELATIVE PERCENT (BEAKER) (test 5 % ooxy=762) EOSINOPHILS RELATIVE PERCENT (BEAKER) (test 1 % ysfa=310) BASOPHILS RELATIVE PERCENT (BEAKER) (test 0 % hkxp=987) NEUTROPHILS ABSOLUTE COUNT (BEAKER) (test 12.25 K/ L 1.78-5.38 wgbm=606) LYMPHOCYTES ABSOLUTE COUNT (BEAKER) (test 1.21 K/ L 1.32-3.57 hoob=512) MONOCYTES ABSOLUTE COUNT (BEAKER) (test 0.70 K/ L 0.30-0.82 fibp=354) EOSINOPHILS ABSOLUTE COUNT (BEAKER) (test 0.10 K/ L 0.04-0.54 jsti=147) BASOPHILS ABSOLUTE COUNT (BEAKER) (test 0.03 K/ L 0.01-0.08 vmxr=792) IMMATURE GRANULOCYTES-RELATIVE PERCENT (BEAKER) 1 % 0-1 (test zgrb=4386) MR, SPINE, CERVICAL, [id number] 00:54:00FINAL REPORT MR Cervical spine with and [...] degenerative changes asdescribed above. Signed: Ozzie Avila [facility] Verified Date/ Time: 09/03/2018 00:54:27 Reading Location: [address] Reading Room VANCOMYCIN LEVEL, [id number] 00:52:00 Test Item Value Reference Range Comments VANCOMYCIN TROUGH (BEAKER) (test ovtw=156) 8.0 ug/mL 10.0-20.0 MR, MRA, NECK, WITHOUT IV [id number] 00:45:00FINAL REPORT CLINICAL HISTORY: r/o ALS TECHNIQUE: MRI of the brain utilizing axial T2, FLAIR, GRE, DWI; sagittal and coronal T1-weighted images as well as postcontrast T1 weighted images. MRA of the head utilizing 3-D iemd-ju-zqfhue technique, with 3-D reconstructions. MRA of the [...] Correlate clinically. No evidence for a major [place] proximal branch vessel occlusion. Intracranial atherosclerosis results in multifocal mild stenosis of the bilateral M2 segments of the middle cerebral arteries. 60% stenosis of the proximal left internal carotid artery by NASCET criteria No evidence of hemodynamically significant stenosis in the right cervical carotid or vertebral arteries by NASCET criteria. Signed: Ozzie Avila Verified Date/Time: 09/03/2018 00:45:16 Reading Location: [address] Reading Room MR, BRAIN, [id number] 00:45:00FINAL REPORT CLINICAL HISTORY: r/o ALS TECHNIQUE: MRI of the brain utilizing axial T2, FLAIR, GRE, DWI; sagittal and coronal T1-weighted images as well as postcontrast T1 weighted images. MRA of the head utilizing 3- D mhho-od-vqlrhu technique, with 3-D reconstructions. MRA of the neck utilizing 2-D and 3-D knyd-ko-epafgf technique, with 3-D reconstructions. COMPARISON: None MRI [...] Correlate clinically. No evidence for a major [place] proximal branch vessel occlusion. Intracranial atherosclerosis results in multifocal mild stenosis of the bilateral M2 segments of the middle cerebral arteries. 60% stenosis of the proximal left internal carotid artery by NASCET criteria No evidence of hemodynamically significant stenosis in the right cervical carotid or vertebral arteries by NASCET criteria. Signed: Ozzie Avila MDReport Verified Date/Time: 2017 00:45:16 Reading Location: [address] Transitional Reading Room MR, MRA, BRAIN, WITHOUT [id number] 00:45:00FINAL REPORT CLINICAL HISTORY: r/o ALS TECHNIQUE: MRI of the brain utilizing axial T2, FLAIR, GRE, DWI; sagittal and coronal T1-weighted images as well as postcontrast T1 weighted images. MRA of the head utilizing 3-D unat-qj-mbyxah technique, with 3-D reconstructions. MRA of the [...] Correlate clinically. No evidence for a major [place] proximal branch vessel occlusion. Intracranial atherosclerosis results in multifocal mild stenosis of the bilateral M2 segments of the middle cerebral arteries. 60% stenosis of the proximal left internal carotid artery by NASCET criteria No evidence of hemodynamically significant stenosis in the right cervical carotid or vertebral arteries by NASCET criteria. Signed: Ozzie Avila MDReport Verified Date/Time: 09/03/2018 00:45:16 Reading Location: [address] Transitional Reading Room POCT-GLUCOSE [id number] 00:34:00 Test Item Value Reference Range Comments POC-GLUCOSE METER (BEAKER) 187 mg/dL 70-110 TESTED AT [address] (test eflo=7341) [place] [id number] POCT-GLUCOSE [id number] 16:17:00 Test Item Value Reference Range Comments POC-GLUCOSE METER (BEAKER) 180 mg/dL 70-110 TESTED AT [address] (test iqtp=6537) [place] [id number] BASIC METABOLIC [id number] 14:11:00 Test Item Value Reference Range Comments SODIUM (BEAKER) (test 139 meq/L 136-145 gksz=663) POTASSIUM (BEAKER) (test 3.8 meq/L 3.5-5.1 Specimen slightly puzp=484) hemolyzed CHLORIDE (BEAKER) (test 102 meq/L 98-107 ieaz=794) CO2 (BEAKER) (test 24 meq/L 22-29 qyud=774) BLOOD UREA NITROGEN 16 mg/dL 7-21 (BEAKER) (test xaqz=818) CREATININE (BEAKER) (test 0.82 mg/dL 0.57-1.25 Specimen slightly eohk=584) hemolyzed GLUCOSE RANDOM (BEAKER) 187 mg/dL 70-105 (test vwfu=920) CALCIUM (BEAKER) (test 9.4 mg/dL 8.4-10.2 nnon=728) EGFR (BEAKER) (test 94 mL/min/1.73 sq m ESTIMATED GFR IS NOT kwzq=4588) ACCURATE CREATININE CLEARANCE IN PREDICTING GLOMERULAR FILTRATION RATE. ESTIMATED GFR IS NOT APPLICABLE FOR DIALYSIS PATIENTS. MRSA [id number] 13:43:00 Test Item Value Reference Range Comments CULTURE (BEAKER) (test METHICILLIN RESISTANT 1+ Methicillin etkw=1917) STAPHYLOCOCCUS AUREUS resistant Staphylococcus aureus Clindamycin (test code=10) Erythromycin (test code=4) Linezolid (test code=40) Oxacillin (test code=14) Rifampin (test code=43) Tetracycline (test code=2) Trimethoprim + Sulfamethoxazole (test code=47) Vancomycin (test code=13) SPUTUM CULTURE + GRAM [id number] 13:36:00 Test Item Value Reference Range Comments CULTURE (BEAKER) (test METHICILLIN RESISTANT <1+ Methicillin ixvs=2856) STAPHYLOCOCCUS AUREUS resistant Staphylococcus aureus Clindamycin (test code=10) Erythromycin (test code=4) Linezolid (test code=40) Nitrofurantoin (test code=23) Oxacillin (test code=14) Rifampin (test code=43) Tetracycline (test code=2) Trimethoprim + Sulfamethoxazole (test code=47) Vancomycin (test code=13) GRAM STAIN RESULT 4+ WBCs (BEAKER) (test ajit=9557) GRAM STAIN RESULT 0-5 epithelial cells (BEAKER) (test zpkt=281054) GRAM STAIN RESULT 1+ gram positive cocci (BEAKER) (test in pairs and clusters ctqr=534008) GRAM STAIN RESULT 1+ yeast (BEAKER) (test bydj=735944) <1+ Normal respiratory davie presentPOCT-GLUCOSE [id number] 10:05:00 Test Item Value Reference Range Comments POC-GLUCOSE METER (BEAKER) 210 mg/dL 70-110 TESTED AT [address] (test mvqz=7361) [facility] [address] BRONCHIAL CULTURE + GRAM [id number] 06:57:00 Test Item Value Reference Range Comments CULTURE (BEAKER) (test No growth slly=3025) GRAM STAIN RESULT No WBCs This is an appended report. (BEAKER) (test These results have been iipt=3127) appended to a previously preliminary verified report. GRAM STAIN RESULT No organisms seen This is an appended report. (BEAKER) (test These results have been rppz=46649) appended to a previously preliminary verified report. BLOOD GAS, [id number] 05:30:00 Test Item Value Reference Range Comments PH ARTERIAL (BEAKER) (test zkes=818) 7.43 7.35-7.45 PCO2 ARTERIAL (BEAKER) (test ravp=662) 39 mmHg 35-45 PO2 ARTERIAL (BEAKER) (test kxvl=749) 86 mmHg 80-90 O2 SATURATION ARTERIAL (BEAKER) (test aomr=475) 96.7 % 96.0-97.0 HCO3 ARTERIAL (BEAKER) (test llwx=598) 25 mmol/L 21-29 BASE EXCESS ARTERIAL (BEAKER) (test vrfe=400) 0.8 mmol/L -2.0-3.0 PATIENT TEMPERATURE (BEAKER) (test gjxy=7973) 37.0 C FIO2 (BEAKER) (test qbvk=0581) 50.0 % RAD, CHEST, 1 VIEW, NON [id number] 04:24:00Reason for exam:->ETT placementShould this be performed [...] Avila Verified Date/Time: 09/02/2018 04:24:02 Reading Location: [address] Transitional Reading Room [id number] 04:04:00 Test Item Value Reference Range Comments MAGNESIUM (BEAKER) (test ryvg=234) 1.9 mg/dL 1.6-2.6 BASIC METABOLIC [id number] 04:04:00 Test Item Value Reference Range Comments SODIUM (BEAKER) (test 139 meq/L 136-145 gfak=365) POTASSIUM (BEAKER) (test 3.7 meq/L 3.5-5.1 gxfu=021) CHLORIDE (BEAKER) (test 108 meq/L 98-107 ngev=306) CO2 (BEAKER) (test 24 meq/L 22-29 yhur=768) BLOOD UREA NITROGEN 20 mg/dL 7-21 (BEAKER) (test fwvq=720) CREATININE (BEAKER) (test 0.77 mg/dL 0.57-1.25 xubc=092) GLUCOSE RANDOM (BEAKER) 176 mg/dL 70-105 (test xosi=131) CALCIUM (BEAKER) (test 8.6 mg/dL 8.4-10.2 zokk=584) EGFR (BEAKER) (test 101 mL/min/1.73 sq m ESTIMATED GFR IS NOT ryue=7307) ACCURATE CREATININE CLEARANCE IN PREDICTING GLOMERULAR FILTRATION RATE. ESTIMATED GFR IS NOT APPLICABLE FOR DIALYSIS PATIENTS. CBC W/PLT COUNT & AUTO [id number] 03:31:00 Test Item Value Reference Range Comments WHITE BLOOD CELL COUNT (BEAKER) (test nhnl=217) 8.8 K/ L 3.5-10.5 RED BLOOD CELL COUNT (BEAKER) (test ooki=525) 3.74 M/ L 4.63-6.08 HEMOGLOBIN (BEAKER) (test xgfa=101) 11.3 GM/DL 13.7-17.5 HEMATOCRIT (BEAKER) (test ufhn=035) 34.2 % 40.1-51.0 MEAN CORPUSCULAR VOLUME (BEAKER) (test mwqm=397) 91.4 fL 79.0-92.2 MEAN CORPUSCULAR HEMOGLOBIN (BEAKER) (test 30.2 pg 25.7-32.2 naac=402) MEAN CORPUSCULAR HEMOGLOBIN CONC (BEAKER) (test 33.0 GM/DL 32.3-36.5 mvyx=900) RED CELL DISTRIBUTION WIDTH (BEAKER) (test 13.5 % 11.6-14.4 oynf=295) PLATELET COUNT (BEAKER) (test uggy=285) 210 K/CU MM 150-450 MEAN PLATELET VOLUME (BEAKER) (test npya=269) 9.3 fL 9.4-12.4 NUCLEATED RED BLOOD CELLS (BEAKER) (test 0 /100 WBC 0-0 zizq=658) NEUTROPHILS RELATIVE PERCENT (BEAKER) (test 74 % lqmh=738) LYMPHOCYTES RELATIVE PERCENT (BEAKER) (test 18 % kfik=333) MONOCYTES RELATIVE PERCENT (BEAKER) (test 6 % nhai=068) EOSINOPHILS RELATIVE PERCENT (BEAKER) (test 1 % vxgt=257) BASOPHILS RELATIVE PERCENT (BEAKER) (test 0 % wpbl=147) NEUTROPHILS ABSOLUTE COUNT (BEAKER) (test 6.56 K/ L 1.78-5.38 zfvu=987) LYMPHOCYTES ABSOLUTE COUNT (BEAKER) (test 1.57 K/ L 1.32-3.57 uleb=564) MONOCYTES ABSOLUTE COUNT (BEAKER) (test 0.53 K/ L 0.30-0.82 uajz=720) EOSINOPHILS ABSOLUTE COUNT (BEAKER) (test 0.10 K/ L 0.04-0.54 weqy=081) BASOPHILS ABSOLUTE COUNT (BEAKER) (test 0.02 K/ L 0.01-0.08 fkmf=056) IMMATURE GRANULOCYTES-RELATIVE PERCENT (BEAKER) 1 % 0-1 (test xtcb=2705) POCT-GLUCOSE [id number] 22:19:00 Test Item Value Reference Range Comments POC-GLUCOSE METER (BEAKER) 182 mg/dL 70-110 TESTED AT [address] (test ffaq=8601) [place] [address] VANCOMYCIN LEVEL, [id number] 21:04:00 Test Item Value Reference Range Comments VANCOMYCIN TROUGH ([facility]) (test kkvc=294) 14.4 ug/mL 10.0-20.0 [id number] 15:16:00 Test Item Value Reference Range Comments ACTIVATED CLOTTING TIME 142 sec TESTED AT [address] ([facility] (test xyuq=076) [place] [address] [id number] 13:53:00 Test Item Value Reference Range Comments ACTIVATED CLOTTING TIME 164 sec TESTED AT [address] ([facility]) (test hlxz=406) [place] [address] POCT-GLUCOSE [id number] 12:28:00 Test Item Value Reference Range Comments POC-GLUCOSE METER (BEAKER) 217 mg/dL 70-110 TESTED AT [address] (test sdoj=7486) [place] [address] [id number] 12:10:00 Test Item Value Reference Range Comments ACTIVATED CLOTTING TIME 296 sec TESTED AT [place] [address] [address] ([facility]) (test zlmj=708) [place] [address] TROPONIN [id number] 09:22:00 Test Item Value Reference Range Comments TROPONIN I (BEAKER) (test prxy=240) 3.77 ng/mL 0.00-0.03 Troponin I (TnI) levels [...] failure, acidosis, acute neurological disease, and persistent tachyarrhythmia.[id number] 05:27:00 Test Item Value Reference Range Comments PARTIAL THROMBOPLASTIN TIME (BEAKER) (test 76.0 seconds 22.5-36.0 qccv=611) [id number] 05:22:00 Test Item Value Reference Range Comments MAGNESIUM (BEAKER) (test osbo=728) 2.1 mg/dL 1.6-2.6 BASIC METABOLIC [id number] 05:22:00 Test Item Value Reference Range Comments SODIUM (BEAKER) (test 138 meq/L 136-145 hvmm=685) POTASSIUM (BEAKER) (test 4.0 meq/L 3.5-5.1 mhcl=315) CHLORIDE (BEAKER) (test 108 meq/L 98-107 uozu=197) CO2 (BEAKER) (test 21 meq/L 22-29 klre=336) BLOOD UREA NITROGEN 25 mg/dL 7-21 (BEAKER) (test pjws=207) CREATININE (BEAKER) (test 0.96 mg/dL 0.57-1.25 fgyj=735) GLUCOSE RANDOM (BEAKER) 216 mg/dL 70-105 (test opul=961) CALCIUM (BEAKER) (test 8.4 mg/dL 8.4-10.2 zapd=946) EGFR (BEAKER) (test 79 mL/min/1.73 sq m ESTIMATED GFR IS NOT cddr=0223) ACCURATE CREATININE CLEARANCE IN PREDICTING GLOMERULAR FILTRATION RATE. ESTIMATED GFR IS NOT APPLICABLE FOR DIALYSIS PATIENTS. RAD, CHEST, 1 VIEW, NON [id number] 04:50:00Reason for exam:->respiratory failureShould this be performed [...] MDReport Verified Date/Time: 09/01/2018 04:50:17 Reading Location: [address] Reading Room Electronically signed by: BLAIR DANG M.D. on 04:50 AMCBC (HEMOGRAM ONLY)2018-09-01 04:39:00 Test Item Value Reference Range Comments WHITE BLOOD CELL COUNT (BEAKER) (test ynhd=087) 9.0 K/ L 3.5-10.5 RED BLOOD CELL COUNT (BEAKER) (test pfne=421) 4.10 M/ L 4.63-6.08 HEMOGLOBIN (BEAKER) (test fzta=356) 12.3 GM/DL 13.7-17.5 HEMATOCRIT (BEAKER) (test hmup=919) 37.0 % 40.1-51.0 MEAN CORPUSCULAR VOLUME (BEAKER) (test puxo=663) 90.2 fL 79.0-92.2 MEAN CORPUSCULAR HEMOGLOBIN (BEAKER) (test 30.0 pg 25.7-32.2 mgyi=185) MEAN CORPUSCULAR HEMOGLOBIN CONC (BEAKER) (test 33.2 GM/DL 32.3-36.5 bwxs=464) RED CELL DISTRIBUTION WIDTH (BEAKER) (test 13.7 % 11.6-14.4 llwo=010) PLATELET COUNT (BEAKER) (test huuy=659) 207 K/CU MM 150-450 MEAN PLATELET VOLUME (BEAKER) (test jzuy=801) 9.6 fL 9.4-12.4 NUCLEATED RED BLOOD CELLS (BEAKER) (test 0 /100 WBC 0-0 mzgq=525) TROPONIN [id number] 00:59:00 Test Item Value Reference Range Comments TROPONIN I (BEAKER) (test odir=056) 5.45 ng/mL 0.00-0.03 Troponin I (TnI) levels [...] acidosis, acute neurological disease, and persistent tachyarrhythmia.POCT-GLUCOSE [id number] 22:43:00 Test Item Value Reference Range Comments POC-GLUCOSE METER (BEAKER) 177 mg/dL 70-110 TESTED AT [address] (test uoxq=4587) [place] [address] TROPONIN [id number] 18:36:00 Test Item Value Reference Range Comments TROPONIN I (BEAKER) (test vhnf=033) 6.48 ng/mL 0.00-0.03 Troponin I (TnI) levels [...] failure, acidosis, acute neurological disease, and persistent tachyarrhythmia.[id number] 18:35:00 Test Item Value Reference Range Comments PARTIAL THROMBOPLASTIN TIME (BEAKER) (test 66.0 seconds 22.5-36.0 zqwz=146) POCT-GLUCOSE [id number] 16:40:00 Test Item Value Reference Range Comments POC-GLUCOSE METER (BEAKER) 161 mg/dL 70-110 TESTED AT [address] (test jgqt=3137) [place] [address] POCT-GLUCOSE [id number] 15:13:00 Test Item Value Reference Range Comments POC-GLUCOSE METER (BEAKER) 149 mg/dL 70-110 TESTED AT [address] (test evyk=3982) [place] [address] BODY FLUID CELL COUNT WITH [id number] 14:28:00 Test Item Value Reference Range Comments APPEARANCE FLUID (BEAKER) (test tgws=504) Hazy Clear COLOR FLUID (BEAKER) (test dazw=058) Rice Colorless, Straw RBC FLUID (BEAKER) (test ngob=653) 280 /cu mm <=1 ADJUSTED WBC FLUID (BEAKER) (test lrsp=5610) 139 /cu mm <=5 LINING CELLS (BEAKER) (test sgqd=7602) 1 /cu mm <=1 NEUTROPHILS FLUID (BEAKER) (test sxoy=9574) 77 % LYMPHS FLUID (BEAKER) (test dpfl=174) 5 % MONO/MACROPHAGE FLUID (BEAKER) (test ifzp=509) 18 % EOSINOPHILS FLUID (BEAKER) (test ulod=056) 0 % BASO FLUID (BEAKER) (test hxrn=512) 0 % CONTAINER BODY FLUID (BEAKER) (test ksow=5854) EDTA Tube POCT-GLUCOSE [id number] 14:17:00 Test Item Value Reference Range Comments POC-GLUCOSE METER (BEAKER) 121 mg/dL 70-110 TESTED AT [address] (test nuto=6846) [place] [address] POCT-GLUCOSE [id number] 13:05:00 Test Item Value Reference Range Comments POC-GLUCOSE METER (BEAKER) 176 mg/dL 70-110 TESTED AT [address] (test vwgi=1314) [place] [address] VANCOMYCIN LEVEL, [id number] 13:01:00 Test Item Value Reference Range Comments VANCOMYCIN RANDOM (BEAKER) (test qpvr=657) 7.8 ug/mL Reference Range: No NormalsPOCT-GLUCOSE [id number] 12:08:00 Test Item Value Reference Range Comments POC-GLUCOSE METER (BEAKER) 168 mg/dL 70-110 TESTED AT [address] (test xatm=8993) [place] [address] POCT-GLUCOSE [id number] 10:54:00 Test Item Value Reference Range Comments POC-GLUCOSE METER (BEAKER) 159 mg/dL 70-110 TESTED AT [address] (test ffbm=4222) [place] [address] [id number] 10:01:00 Test Item Value Reference Range Comments PARTIAL THROMBOPLASTIN TIME (BEAKER) (test 44.9 seconds 22.5-36.0 jflv=570) POCT-GLUCOSE [id number] 09:31:00 Test Item Value Reference Range Comments POC-GLUCOSE METER (BEAKER) 98 mg/dL 70-110 TESTED AT [address] (test drjl=6693) [place] [address] POCT-GLUCOSE [id number] 08:31:00 Test Item Value Reference Range Comments POC-GLUCOSE METER (BEAKER) 118 mg/dL 70-110 TESTED AT [address] (test mnzi=2866) [place] [address] TROPONIN [id number] 08:28:00 Test Item Value Reference Range Comments TROPONIN I (BEAKER) (test ljbb=811) 9.00 ng/mL 0.00-0.03 Troponin I (TnI) levels [...] acidosis, acute neurological disease, and persistent tachyarrhythmia.POCT-GLUCOSE [id number] 07:13:00 Test Item Value Reference Range Comments POC-GLUCOSE METER (BEAKER) 120 mg/dL 70-110 TESTED AT [address] (test nxkd=6245) [place] [address] POCT-GLUCOSE [id number] 06:10:00 Test Item Value Reference Range Comments POC-GLUCOSE METER (BEAKER) 152 mg/dL 70-110 TESTED AT [address] (test lreg=7068) [place] [address] POCT-GLUCOSE [id number] 05:07:00 Test Item Value Reference Range Comments POC-GLUCOSE METER (BEAKER) 156 mg/dL 70-110 TESTED AT [address] (test yoea=4601) [place] [address] [id number] 04:56:00 Test Item Value Reference Range Comments MAGNESIUM (BEAKER) (test takv=044) 1.9 mg/dL 1.6-2.6 BASIC METABOLIC [id number] 04:56:00 Test Item Value Reference Range Comments SODIUM (BEAKER) (test 144 meq/L 136-145 sjgw=462) POTASSIUM (BEAKER) (test 3.7 meq/L 3.5-5.1 kybp=094) CHLORIDE (BEAKER) (test 109 meq/L 98-107 amwy=356) CO2 (BEAKER) (test 25 meq/L 22-29 nebp=277) BLOOD UREA NITROGEN 32 mg/dL 7-21 (BEAKER) (test vuyy=468) CREATININE (BEAKER) (test 1.12 mg/dL 0.57-1.25 igkj=299) GLUCOSE RANDOM (BEAKER) 149 mg/dL 70-105 (test lgal=497) CALCIUM (BEAKER) (test 8.7 mg/dL 8.4-10.2 ypol=458) EGFR (BEAKER) (test 66 mL/min/1.73 sq m ESTIMATED GFR IS NOT ywzs=9678) ACCURATE CREATININE CLEARANCE IN PREDICTING GLOMERULAR FILTRATION RATE. ESTIMATED GFR IS NOT APPLICABLE FOR DIALYSIS PATIENTS. CBC (HEMOGRAM ONLY)2018-08-31 04:33:00 Test Item Value Reference Range Comments WHITE BLOOD CELL COUNT (BEAKER) (test cupk=729) 11.6 K/ L 3.5-10.5 RED BLOOD CELL COUNT (BEAKER) (test duse=724) 4.00 M/ L 4.63-6.08 HEMOGLOBIN (BEAKER) (test ibcw=789) 12.0 GM/DL 13.7-17.5 HEMATOCRIT (BEAKER) (test kfcq=393) 35.4 % 40.1-51.0 MEAN CORPUSCULAR VOLUME (BEAKER) (test jxai=139) 88.5 fL 79.0-92.2 MEAN CORPUSCULAR HEMOGLOBIN (BEAKER) (test 30.0 pg 25.7-32.2 arjt=605) MEAN CORPUSCULAR HEMOGLOBIN CONC (BEAKER) (test 33.9 GM/DL 32.3-36.5 lcqw=445) RED CELL DISTRIBUTION WIDTH (BEAKER) (test 14.0 % 11.6-14.4 xnkr=191) PLATELET COUNT (BEAKER) (test mbxe=338) 216 K/CU MM 150-450 MEAN PLATELET VOLUME (BEAKER) (test ffyc=108) 9.6 fL 9.4-12.4 NUCLEATED RED BLOOD CELLS (BEAKER) (test 0 /100 WBC 0-0 gwqg=007) BLOOD GAS, [id number] 04:21:00 Test Item Value Reference Range Comments PH ARTERIAL (BEAKER) (test urze=769) 7.45 7.35-7.45 PCO2 ARTERIAL (BEAKER) (test hiar=265) 38 mmHg 35-45 PO2 ARTERIAL (BEAKER) (test crfk=053) 75 mmHg 80-90 O2 SATURATION ARTERIAL (BEAKER) (test qjax=599) 95.6 % 96.0-97.0 HCO3 ARTERIAL (BEAKER) (test tobf=097) 26 mmol/L 21-29 BASE EXCESS ARTERIAL (BEAKER) (test rnwp=653) 1.6 mmol/L -2.0-3.0 PATIENT TEMPERATURE (BEAKER) (test faqa=7061) 36.9 C FIO2 (BEAKER) (test ichb=2022) 60.0 % POCT-GLUCOSE [id number] 04:10:00 Test Item Value Reference Range Comments POC-GLUCOSE METER (BEAKER) 142 mg/dL 70-110 TESTED AT [address] (test zxjc=7738) [place] [address] POCT-GLUCOSE [id number] 03:03:00 Test Item Value Reference Range Comments POC-GLUCOSE METER (BEAKER) 129 mg/dL 70-110 TESTED AT [address] (test mnzd=9504) [place] [address] [id number] 02:39:00 Test Item Value Reference Range Comments PARTIAL THROMBOPLASTIN TIME (BEAKER) (test 61.7 seconds 22.5-36.0 jgjy=760) POCT-GLUCOSE [id number] 02:05:00 Test Item Value Reference Range Comments POC-GLUCOSE METER (BEAKER) 108 mg/dL 70-110 TESTED AT [address] (test vaae=8571) [place] [address] POCT-GLUCOSE [id number] 01:28:00 Test Item Value Reference Range Comments POC-GLUCOSE METER (BEAKER) 93 mg/dL 70-110 TESTED AT [address] (test bhkh=7828) [place] [address] TROPONIN [id number] 01:04:00 Test Item Value Reference Range Comments TROPONIN I (BEAKER) (test ovkf=820) 11.40 ng/mL 0.00-0.03 Troponin I (TnI) levels [...] acute neurological disease, and persistent tachyarrhythmia.BLOOD GAS, [id number] 00:14:00 Test Item Value Reference Range Comments PH ARTERIAL (BEAKER) (test mwjx=271) 7.50 7.35-7.45 PCO2 ARTERIAL (BEAKER) (test clpm=810) 36 mmHg 35-45 PO2 ARTERIAL (BEAKER) (test kfeo=016) 56 mmHg 80-90 O2 SATURATION ARTERIAL (BEAKER) (test xyag=027) 92.1 % 96.0-97.0 HCO3 ARTERIAL (BEAKER) (test zrkm=996) 27 mmol/L 21-29 BASE EXCESS ARTERIAL (BEAKER) (test cgjg=261) 4.0 mmol/L -2.0-3.0 PATIENT TEMPERATURE (BEAKER) (test gefr=0907) 36.7 C FIO2 (BEAKER) (test ihfr=9572) 40.0 % POCT-GLUCOSE [id number] 00:10:00 Test Item Value Reference Range Comments POC-GLUCOSE METER (BEAKER) 124 mg/dL 70-110 TESTED AT [address] (test peyd=7784) [place] [address] POCT-GLUCOSE [id number] 23:27:00 Test Item Value Reference Range Comments POC-GLUCOSE METER (BEAKER) 111 mg/dL 70-110 TESTED AT [address] (test btxn=0851) [facility] [address] POCT-GLUCOSE [id number] 22:06:00 Test Item Value Reference Range Comments POC-GLUCOSE METER (BEAKER) 131 mg/dL 70-110 TESTED AT [address] (test vbwf=4933) [place] [address] POCT-GLUCOSE [id number] 21:05:00 Test Item Value Reference Range Comments POC-GLUCOSE METER (BEAKER) 145 mg/dL 70-110 TESTED AT [address] (test xbfn=7887) [place] [address] POCT-GLUCOSE [id number] 20:18:00 Test Item Value Reference Range Comments POC-GLUCOSE METER (BEAKER) 154 mg/dL 70-110 TESTED AT [address] (test aghq=9251) [place] [address] [id number] 19:55:00 Test Item Value Reference Range Comments PARTIAL THROMBOPLASTIN TIME (BEAKER) (test 50.2 seconds 22.5-36.0 wkye=471) POCT-GLUCOSE [id number] 19:07:00 Test Item Value Reference Range Comments POC-GLUCOSE METER (BEAKER) 182 mg/dL 70-110 TESTED AT [address] (test hsns=4370) [place] [address] POCT-GLUCOSE [id number] 18:03:00 Test Item Value Reference Range Comments POC-GLUCOSE METER (BEAKER) 201 mg/dL 70-110 TESTED AT [address] (test tzoq=3560) [place] [address] PUL PERF IMAGING, PARTIC, [id number] 17:23:00FINAL REPORT PROCEDURE: V/Q LUNG SCAN CPT CODE: 54684 INDICATION: Chest pain PA suspected high pretest [...] of parenchymal lung disease.. Signed: Elmo Carvalho MDReport Verified Date/Time: 08/30/2018 17:23:41 Reading Location: [address] Reading Room POCT-GLUCOSE [id number] 17:03:00 Test Item Value Reference Range Comments POC-GLUCOSE METER (BEAKER) 230 mg/dL 70-110 TESTED AT [address] (test hpnx=8618) [place] [address] POCT-GLUCOSE [id number] 16:13:00 Test Item Value Reference Range Comments POC-GLUCOSE METER (YADIEL) 255 mg/dL 70-110 TESTED AT [facility] [address] (test zvgx=0759) [facility] [address] TROPONIN [id number] 16:01:00 Test Item Value Reference Range Comments TROPONIN I (BEAKER) (test zqjd=835) 14.68 ng/mL 0.00-0.03 Troponin I (TnI) levels [...] neurological disease, and persistent tachyarrhythmia.CT, CHEST, WITHOUT [id number] 15 :10:00FINAL REPORT HISTORY: Acute resp illness, [...] Sainz Verified Date/Time: 08/30/2018 15:10:22 [facility] [place] [id number] Electronically signed by: BRYON SAINZ M.D. on08/30/2018 03:10 PMPOCT-GLUCOSE [id number] 14:57:00 Test Item Value Reference Range Comments POC-GLUCOSE METER (BEAKER) 273 mg/dL 70-110 TESTED AT [address] (test gvvp=5117) [place] [address] POCT-GLUCOSE [id number] 13:10:00 Test Item Value Reference Range Comments POC-GLUCOSE METER (BEAKER) 232 mg/dL 70-110 TESTED AT [address] (test yxuo=5256) [facility] [address] RAD, ABDOMEN/KUB, 1 VIEW [id number] 12:44:00Reason for exam:->abdominal distensionFINAL REPORT Two frontal images abdomen and pelvis. NG tube loops in the proximal stomach. There is a paucity of visible small bowel gas but no grossly apparent bowel obstruction. No evidence of free intraperitoneal air. Degenerative spine changes are noted. No concerning calcification. Signed: Mark Parsons Verified Date/Time: 08/30/2018 12: 44:32 Reading Location: [facility] Reading Room [id number] 12:08:00 Test Item Value Reference Range Comments PARTIAL THROMBOPLASTIN TIME (BEAKER) (test 45.2 seconds 22.5-36.0 mhxb=321) POCT-GLUCOSE [id number] 12:05:00 Test Item Value Reference Range Comments POC-GLUCOSE METER (BEAKER) 238 mg/dL 70-110 TESTED AT [address] (test tynr=0534) [facility] [address] RAD, CHEST, 1 VIEW, NON [id number] 11:56:00Reason for exam:->ET tube manipulationShould this be [...] Verified Date/Time: 08/30/2018 11: 56:52 Reading Location: [facility] Reading Room POCT- GLUCOSE [id number] 11:05:00 Test Item Value Reference Range Comments POC-GLUCOSE METER (BEAKER) 275 mg/dL 70-110 TESTED AT [address] (test dbyq=4642) [place] [address] LACTIC ACID, ARTERIAL, WHOLE [id number] 09:50:00 Test Item Value Reference Range Comments LACTATE BLOOD ARTERIAL (2) (BEAKER) (test 1.6 mmol/L 0.5-2.2 loqr=7404) Effective 03/02/2016: Units/Reference Range ChangeNew: 0.5-2.2 mmol/L Previous: 5 -20 mg/dLPOCT-GLUCOSE [id number] 09:44:00 Test Item Value Reference Range Comments POC-GLUCOSE METER (BEAKER) 297 mg/dL 70-110 TESTED AT [address] (test zjxr=9968) [place] [address] TROPONIN [id number] 09:34:00 Test Item Value Reference Range Comments TROPONIN I (BEAKER) (test fmua=853) 19.27 ng/mL 0.00-0.03 Troponin I (TnI) levels [...] acute neurological disease, and persistent tachyarrhythmia.OXYGEN SATURATION, [id number] 08 :54:00 Test Item Value Reference Range Comments O2 SATURATION (MEASURED) (BEAKER) (test wbab=6533) 74.7 % POCT-GLUCOSE [id number] 08:33:00 Test Item Value Reference Range Comments POC-GLUCOSE METER (BEAKER) 345 mg/dL 70-110 TESTED AT [address] (test wbcw=0524) [facility] [address] POCT-GLUCOSE [id number] 07:42:00 Test Item Value Reference Range Comments POC-GLUCOSE METER (BEAKER) 305 mg/dL 70-110 Notified MILLA CARPENTER/TESTED AT [facility] (test hebk=8253) [address] [place] [address] POCT-GLUCOSE [id number] 07:42:00 Test Item Value Reference Range Comments POC-GLUCOSE METER (BEAKER) 309 mg/dL 70-110 TESTED AT [address] (test zjef=2396) [facility] [address] URINALYSIS W/ REFLEX URINE [id number] 07:35:00 Test Item Value Reference Range Comments COLOR (BEAKER) (test lnwy=838) Light Yellow CLARITY (BEAKER) (test rmaq=984) Clear SPECIFIC GRAVITY UA (BEAKER) (test jvsq=588) 1.017 1.001-1.035 PH UA (BEAKER) (test vvez=140) 5.0 5.0-8.0 PROTEIN UA (BEAKER) (test ytse=180) Negative Negative GLUCOSE UA (BEAKER) (test gaqz=749) >1000 mg/dL Negative KETONES UA (BEAKER) (test rznm=744) 10 mg/dL Negative BILIRUBIN UA (BEAKER) (test wonc=667) Negative Negative BLOOD UA (BEAKER) (test djrx=949) Negative Negative NITRITE UA (BEAKER) (test mxxy=414) Negative Negative LEUKOCYTE ESTERASE UA (BEAKER) (test npfv=264) Negative Negative UROBILINOGEN UA (BEAKER) (test oazv=405) 0.2 mg/dL 0.2-1.0 RBC UA (BEAKER) (test ranx=897) 3 /HPF WBC UA (BEAKER) (test gjsm=973) 2 /HPF MUCUS (BEAKER) (test qmlp=9017) Rare AMORPHOUS CRYSTALS (BEAKER) (test uyue=8923) Rare SOURCE(BEAKER) (test ucjo=9752) [id number] 05:48:00 Test Item Value Reference Range Comments PROCALCITONIN (BEAKER) (test gjwo=3215) 0.26 ng/mL <0.05 SEPSIS RISK (ng/mL)Low: 0.05-0.50Intermediate: 0.51-2.00High: & gt;=2.01LACTIC ACID, ARTERIAL, WHOLE [id number] 04:44:00 Test Item Value Reference Range Comments LACTATE BLOOD ARTERIAL (2) 1.7 mmol/L 0.5-2.2 Specimen slightly hemolyzed (BEAKER) (test yemo=0304) Effective 03/02/2016: Units/Reference Range ChangeNew: 0.5-2.2 mmol/L Previous: 5 -20 mg/dLBLOOD GAS, [id number] 04:42:00 Test Item Value Reference Range Comments PH ARTERIAL (BEAKER) (test sxix=433) 7.40 7.35-7.45 PCO2 ARTERIAL (BEAKER) (test jtyj=846) 35 mmHg 35-45 PO2 ARTERIAL (BEAKER) (test bcfz=372) 101 mmHg 80-90 O2 SATURATION ARTERIAL (BEAKER) (test hyka=559) 97.7 % 96.0-97.0 HCO3 ARTERIAL (BEAKER) (test ofot=995) 21 mmol/L 21-29 BASE EXCESS ARTERIAL (BEAKER) (test ebht=562) -3.0 mmol/L -2.0-3.0 PATIENT TEMPERATURE (BEAKER) (test drnd=2405) 36.9 C FIO2 (BEAKER) (test wtmh=8746) 50.0 % [id number] 04:40:00 Test Item Value Reference Range Comments POTASSIUM (BEAKER) (test okun=312) 4.3 meq/L 3.5-5.1 [id number] 04:40:00 Test Item Value Reference Range Comments GLUCOSE RANDOM (BEAKER) (test lglx=477) 365 mg/dL 70-105 POCT-GLUCOSE [id number] 04:37:00 Test Item Value Reference Range Comments POC-GLUCOSE METER (BEAKER) 370 mg/dL 70-110 TESTED AT [facility] [address] (test pxdl=9931) [place] [address] [id number] 04:34:00 Test Item Value Reference Range Comments PARTIAL THROMBOPLASTIN TIME (BEAKER) (test 30.2 seconds 22.5-36.0 yntl=786) Prior to initiating heparinPLATELET [id number] 04:15:00 Test Item Value Reference Range Comments PLATELET COUNT (BEAKER) (test lpzw=992) 284 K/CU MM 150-450 Baseline and daily starting prior to initiation of heparin infusionCBC ( HEMOGRAM ONLY)2018-08-30 04:15:00 Test Item Value Reference Range Comments WHITE BLOOD CELL COUNT (BEAKER) (test dasd=496) 16.6 K/ L 3.5-10.5 RED BLOOD CELL COUNT (BEAKER) (test jajy=769) 4.25 M/ L 4.63-6.08 HEMOGLOBIN (BEAKER) (test ylih=958) 13.1 GM/DL 13.7-17.5 HEMATOCRIT (BEAKER) (test rtxy=599) 37.6 % 40.1-51.0 MEAN CORPUSCULAR VOLUME (BEAKER) (test fjou=279) 88.5 fL 79.0-92.2 MEAN CORPUSCULAR HEMOGLOBIN (BEAKER) (test 30.8 pg 25.7-32.2 gvas=781) MEAN CORPUSCULAR HEMOGLOBIN CONC (BEAKER) (test 34.8 GM/DL 32.3-36.5 qivl=484) RED CELL DISTRIBUTION WIDTH (BEAKER) (test 13.6 % 11.6-14.4 ostl=816) PLATELET COUNT (BEAKER) (test jusw=273) 284 K/CU MM 150-450 MEAN PLATELET VOLUME (BEAKER) (test endm=092) 9.6 fL 9.4-12.4 NUCLEATED RED BLOOD CELLS (BEAKER) (test 0 /100 WBC 0-0 rirk=416) TSH/FREE T4 IF [id number] 03:00:00 Test Item Value Reference Range Comments THYROID STIMULATING HORMONE (BEAKER) (test 0.92 uIU/mL 0.35-4.94 voxm=841) TROPONIN [id number] 02:51:00 Test Item Value Reference Range Comments TROPONIN I (BEAKER) (test yxmq=439) 24.37 ng/mL 0.00-0.03 Troponin I (TnI) levels [...] Range Comments B-TYPE NATRIURETIC PEPTIDE (BEAKER) (test wwzt=665) 63 pg/mL 0-100 [id number] 02:44:00 Test Item Value Reference Range Comments PARTIAL THROMBOPLASTIN TIME (BEAKER) (test 28.2 seconds 22.5-36.0 hqoc=022) Prior to initiating heparinCBC W/PLT COUNT & AUTO [id number] 02: 41:00 Test Item Value Reference Range Comments WHITE BLOOD CELL COUNT (BEAKER) (test wxwk=199) 13.4 K/ L 3.5-10.5 RED BLOOD CELL COUNT (BEAKER) (test ihcy=878) 4.05 M/ L 4.63-6.08 HEMOGLOBIN (BEAKER) (test yyge=566) 12.6 GM/DL 13.7-17.5 HEMATOCRIT (BEAKER) (test gqci=405) 36.4 % 40.1-51.0 MEAN CORPUSCULAR VOLUME (BEAKER) (test ithj=828) 89.9 fL 79.0-92.2 MEAN CORPUSCULAR HEMOGLOBIN (BEAKER) (test 31.1 pg 25.7-32.2 salq=530) MEAN CORPUSCULAR HEMOGLOBIN CONC (BEAKER) (test 34.6 GM/DL 32.3-36.5 ymrv=693) RED CELL DISTRIBUTION WIDTH (BEAKER) (test 13.7 % 11.6-14.4 wdjx=138) PLATELET COUNT (BEAKER) (test ithq=624) 223 K/CU MM 150-450 MEAN PLATELET VOLUME (BEAKER) (test xnda=530) 9.9 fL 9.4-12.4 NUCLEATED RED BLOOD CELLS (BEAKER) (test 0 /100 WBC 0-0 nanq=499) NEUTROPHILS RELATIVE PERCENT (BEAKER) (test 94 % stoc=797) LYMPHOCYTES RELATIVE PERCENT (BEAKER) (test 5 % cfhm=793) MONOCYTES RELATIVE PERCENT (BEAKER) (test 1 % iooj=029) EOSINOPHILS RELATIVE PERCENT (BEAKER) (test 0 % hgee=363) BASOPHILS RELATIVE PERCENT (BEAKER) (test 0 % gcsz=267) NEUTROPHILS ABSOLUTE COUNT (BEAKER) (test 12.52 K/ L 1.78-5.38 mwku=559) LYMPHOCYTES ABSOLUTE COUNT (BEAKER) (test 0.61 K/ L 1.32-3.57 oguj=128) MONOCYTES ABSOLUTE COUNT (BEAKER) (test 0.12 K/ L 0.30-0.82 ntwh=462) EOSINOPHILS ABSOLUTE COUNT (BEAKER) (test 0.00 K/ L 0.04-0.54 vutx=435) BASOPHILS ABSOLUTE COUNT (BEAKER) (test 0.01 K/ L 0.01-0.08 hvff=347) IMMATURE GRANULOCYTES-RELATIVE PERCENT (BEAKER) 1 % 0-1 (test wjbk=2142) [id number] 02:39:00 Test Item Value Reference Range Comments LIPASE (BEAKER) (test ttmz=818) 14 U/L 8-78 COMPREHENSIVE METABOLIC [id number] 02:39:00 Test Item Value Reference Range Comments TOTAL PROTEIN (BEAKER) 6.2 gm/dL 6.0-8.3 (test gahh=672) ALBUMIN (BEAKER) (test 3.5 g/dL 3.5-5.0 jjqd=8802) ALKALINE PHOSPHATASE 31 U/L 40-150 (BEAKER) (test ggdp=859) BILIRUBIN TOTAL (BEAKER) 0.5 mg/dL 0.2-1.2 (test zxwc=733) SODIUM (BEAKER) (test 138 meq/L 136-145 atvj=151) POTASSIUM (BEAKER) (test 4.3 meq/L 3.5-5.1 ihrt=710) CHLORIDE (BEAKER) (test 104 meq/L 98-107 kbxm=587) CO2 (BEAKER) (test 22 meq/L 22-29 rusv=212) BLOOD UREA NITROGEN 27 mg/dL 7-21 (BEAKER) (test rojs=884) CREATININE (BEAKER) (test 1.49 mg/dL 0.57-1.25 osdd=473) GLUCOSE RANDOM (BEAKER) 339 mg/dL 70-105 (test bmxp=766) CALCIUM (BEAKER) (test 8.8 mg/dL 8.4-10.2 fhsh=801) AST (SGOT) (BEAKER) (test 91 U/L 5-34 yopx=009) ALT (SGPT) (BEAKER) (test 21 U/L 6-55 frxn=051) EGFR (BEAKER) (test 47 mL/min/1.73 sq m ESTIMATED GFR IS NOT juvx=0058) ACCURATE CREATININE CLEARANCE IN PREDICTING GLOMERULAR FILTRATION RATE. ESTIMATED GFR IS NOT APPLICABLE FOR DIALYSIS PATIENTS. [id number] 02:39:00 Test Item Value Reference Range Comments MAGNESIUM (BEAKER) (test ajiu=030) 1.9 mg/dL 1.6-2.6 LACTIC ACID, VENOUS, WHOLE [id number] 02:34:00 Test Item Value Reference Range Comments LACTATE BLOOD VENOUS (2) 2.8 mmol/L 0.5-2.2 Specimen slightly hemolyzed (BEAKER) (test oehg=4139) Effective 03/02/2016: Units/Reference Range ChangeNew: 0.5-2.2 mmol/L Previous: 5 -20 mg/dLPLATELET [id number] 02:14:00 Test Item Value Reference Range Comments PLATELET COUNT (BEAKER) (test pytb=473) 223 K/CU MM 150-450 RAD, CHEST, 1 VIEW, NON [id number] 01:50:00Reason for exam:->lines placement Should this be [...] Verified Date/Time : 08/30/2018 01:50:34 Reading Location: [address] Transitional Reading Room
--- NOTE | 2019-04-01 14:44 | EDPHYS ---
Physician Documentation [facility] Name: Asim Burnett Age: 63 yrs Sex: Male : 1955 Arrival Date: 04/01/2019 Time: 13:25 Bed 30 Private MD: Bebeto Jaffe H ED Physician Heladio Veras HPI: 04/01 14:36 This 63 yrs old Male presents to ER via Ambulatory with complaints of Chest bridger Pain. 14:36 The patient or guardian reports chest pain that is located primarily in the substernal bridger area, anterior chest wall. Onset: just prior to arrival, this morning. The pain does not radiate. Associated signs and symptoms: Pertinent positives: lower extremity swelling, shortness of breath. The chest pain is described as a heaviness, a pressure. Modifying factors: The symptoms are alleviated by nothing. the symptoms are aggravated by nothing. Severity of pain: At its worst the pain was mild moderate in the emergency department the pain is unchanged. The patient has not experienced similar symptoms in the past. Historical: - Allergies: 13:28 Ibuprofen; hj - Home Meds: 16:51 Abilify 5 mg Oral tab 1 tab once daily [Active]; Albuterol Inhl [Active]; amlodipine 5 hb mg tab 1 tab once daily [Active]; aspirin 81 mg oral chew once daily [Active]; atorvastatin 20 mg oral tab once daily [Active]; clonazepam 1 mg Oral tab 1 tab 3 times per day [Active]; Humalog 100 unit/mL Sub-Q soln 24 unit three times a day [Active]; oxycodone-acetaminophen 10-325 mg Oral tab 1 tab QID [Active]; metformin 500 mg oral tab [Active]; spironolactone 25 mg Oral tab 1 tab once daily [Active]; Insulin Glargine Sub-Q 50 unit nightly [Active]; gabapentin 300 mg oral cap 2 caps 3 times per day [Active]; Breo Ellipta 100-25 mcg/dose inhalation dsdv 1 puff once daily [Active]; clopidogrel 75 mg oral tab 1 tab once daily [Active]; Prevacid 30 mg Oral cpDR 1 cap once daily [Active]; Brovana 15 mcg/2 mL inhalation nebu 2 times per day [Active]; Proventil Inhl [Active]; Advair Diskus 250-50 mcg/dose Inhl dsdv 1 puff 2 times per day [Active]; Lipitor 80 mg Oral tab 1 tab once daily [Active]; - PMHx: 13:28 Anxiety; cardiac stent; COPD; Depression; Diabetes - IDDM; High Cholesterol; hj Hypertension; Myocardial infarction; - PSHx: 13:28 cardiac stent; hj - Immunization history:: Adult Immunizations up to date. - Social history:: Smoking status: Patient/guardian denies using tobacco. - Family history:: not pertinent. - Ebola Screening: : No symptoms or risks identified at this time. ROS: 14:36 Constitutional: Negative for fever, chills, and weight loss, Eyes: Negative for injury, bridger pain, redness, and discharge, ENT: Negative for injury, pain, and discharge, Neck: Negative for injury, pain, and swelling, Abdomen/GI: Negative for abdominal pain, nausea, vomiting, diarrhea, and constipation, Back: Negative for injury and pain, : Negative for injury, bleeding, discharge, and swelling, MS/Extremity: Negative for injury and deformity, Skin: Negative for injury, rash, and discoloration, Neuro: Negative for headache, weakness, numbness, tingling, and seizure. 14:36 Cardiovascular: Positive for chest pain. 14:36 Respiratory: Positive for shortness of breath, on exertion. Exam: 14:36 Constitutional: This is a well developed, well nourished patient who is awake, alert, bridger and in no acute distress. Head/Face: Normocephalic, atraumatic. Eyes: Pupils equal round and reactive to light, extra-ocular motions intact. Lids and lashes normal. Conjunctiva and sclera are non-icteric and not injected. Cornea within normal limits. Periorbital areas with no swelling, redness, or edema. ENT: Nares patent. No nasal discharge, no septal abnormalities noted. Tympanic membranes are normal and external auditory canals are clear. Oropharynx with no redness, swelling, or masses, exudates, or evidence of obstruction, uvula midline. Mucous membranes moist. Neck: Trachea midline, no thyromegaly or masses palpated, and no cervical lymphadenopathy. Supple, full range of motion without nuchal rigidity, or vertebral point tenderness. No Meningismus. Chest/axilla: Normal chest wall appearance and motion. Nontender with no deformity. No lesions are appreciated. Cardiovascular: Regular rate and rhythm with a normal S1 and S2. No gallops, murmurs, or rubs. Normal PMI, no JVD. No pulse deficits. Respiratory: Lungs have equal breath sounds bilaterally, clear to auscultation and percussion. No rales, rhonchi or wheezes noted. No increased work of breathing, no retractions or nasal flaring. Abdomen/GI: Soft, non-tender, with normal bowel sounds. No distension or tympany. No guarding or rebound. No evidence of tenderness throughout. Back: No spinal tenderness. No costovertebral tenderness. Full range of motion. Male : Normal genitalia with no discharge or lesions. Skin: Warm, dry with normal turgor. Normal color with no rashes, no lesions, and no evidence of cellulitis. MS/ Extremity: Pulses equal, no cyanosis. Neurovascular intact. Full, normal range of motion. Neuro: Awake and alert, GCS 15, oriented to person, place, time, and situation. Cranial nerves II-XII grossly intact. Motor strength 5/5 in all extremities. Sensory grossly intact. Cerebellar exam normal. Normal gait. Psych: Awake, alert, with orientation to person, place and time. Behavior, mood, and affect are within normal limits. Vital Signs: 13:29 BP 106 / 67; Pulse 87; Resp 18; Temp 98.7(O); Pulse Ox 98% on R/A; Weight 110.68 kg; hj Height 5 ft. 7 in. (170.18 cm); Pain 8/10; 15:00 BP 115 / 76; Pulse 77; Resp 15; Pulse Ox 96% on 3 lpm NC; hb 16:00 BP 102 / 63; Pulse 76; Resp 16; Pulse Ox 99% on 3 lpm NC; hb 17:00 BP 111 / 87; Pulse 78; Resp 16; Pulse Ox 98% on 3 lpm NC; hb 13:29 Body Mass Index 38.22 (110.68 kg, 170.18 cm) MDM: 14:29 [facility] 14:39 Data reviewed: vital signs, nurses notes, lab test result(s), EKG, radiologic studies, bridger plain films. 04/01 14:33 Order name: Basic Metabolic Panel dm5 04/01 14:33 Order name: CBC with Diff 5 04/01 14:33 Order name: LFT's 5 04/01 14:33 Order name: Magnesium 5 04/01 14:33 Order name: NT PRO-BNP 5 04/01 14:33 Order name: PT-INR 5 04/01 14:33 Order name: Troponin (emerg Dept Use Only) 5 04/01 14:40 Order name: Lipase [facility] 04/01 15:11 Order name: CBC with Automated Diff; Complete Time: 15:25 EDMS 04/01 15:18 Order name: Lipase; Complete Time: 15:25 EDMS 04/01 15:19 Order name: Protime (+INR); Complete Time: 15:25 EDMS 04/01 15:29 Order name: Basic Metabolic Panel; Complete Time: 15:40 EDMS 04/01 15:29 Order name: Liver (Hepatic) Function; Complete Time: 15:40 EDMS 04/01 15:29 Order name: Troponin (Emerg Dept Use Only); Complete Time: 15:40 EDMS 04/01 13:30 Order name: EKG - Nurse/Tech; Complete Time: 13:32 04/01 14:33 Order name: XRAY Chest (1 view) 5 04/01 14:33 Order name: EKG; Complete Time: 14:34 5 04/01 14:33 Order name: Cardiac monitoring; Complete Time: 14:46 5 04/01 14:33 Order name: EKG - Nurse/Tech; Complete Time: 14:47 5 04/01 14:33 Order name: IV Saline Lock; Complete Time: 14:56 5 04/01 14:33 Order name: Labs collected and sent; Complete Time: 14:56 5 04/01 15:29 Order name: NT PRO-BNP; Complete Time: 15:40 EDMS 04/01 15:29 Order name: Magnesium; Complete Time: 15:40 EDMS 04/01 15:40 Order name: RAD; Complete Time: 15:40 EDMS 04/01 14:33 Order name: O2 Per Protocol; Complete Time: 14:56 5 04/01 14:33 Order name: O2 Sat Monitoring; Complete Time: 14:56 dm5 Administered Medications: 14:57 Drug: Aspirin Chewable Tablet 162 mg Route: PO; hb 15:44 Follow up: Response: No adverse reaction hb 14:57 Drug: Zofran 4 mg Route: IVP; Site: left antecubital; hb 15:35 Follow up: Response: No adverse reaction hb 14:58 Drug: Pepcid 20 mg Route: IVP; Site: left antecubital; hb 15:30 Follow up: Response: No adverse reaction hb 14:58 Drug: morphine 2 mg Route: IVP; Site: left antecubital; hb 15:22 Follow up: Response: No adverse reaction hb 15:00 Drug: Lovenox 100 mg Route: Sub-Q; Site: abdomen; hb 15:44 Follow up: Response: No adverse reaction hb 15:10 Drug: morphine 2 mg Route: IVP; Site: left antecubital; hb 15:40 Follow up: Response: No adverse reaction hb Disposition: 04/01/19 14:43 Hospitalization ordered by Jose Carpio for Observation. Preliminary diagnosis are Other chest pain, Type 1 diabetes mellitus, Obesity, unspecified. - Bed requested for Telemetry/MedSurg (observation). - Status is Observation. hb - Condition is Fair. - Problem is new. - Symptoms have improved. UTI on Admission? No Signatures: Dispatcher [employer] EDMS Izabella Gleason RN RN dm5 Heladio Veras MD MD cha Joaquin, Henry, Nicole Plaza RN, RN RN Simón Younger RN RN ja1 Corrections: (The following items were deleted from the chart) 16:41 14:43 Hospitalization Ordered by Jose Carpio MD for Observation. Preliminary diagnosis ja1 is Other chest pain; Type 1 diabetes mellitus; Obesity, unspecified. Bed requested for Telemetry/MedSurg (observation). Status is Observation. Condition is Fair. Problem is new. Symptoms have improved. UTI on Admission? No. bridger 17:51 16:41 04/01/2019 14:43 Hospitalization Ordered by Jose Carpio MD for Observation. hb Preliminary diagnosis is Other chest pain; Type 1 diabetes mellitus; Obesity, unspecified. Bed requested for Telemetry/MedSurg (observation). Status is Observation. Condition is Fair. Problem is new. Symptoms have improved. UTI on Admission? No. ja1
--- NOTE | 2019-04-01 14:44 | ER ---
Nurse's Notes [facility] Name: Asim Burnett Age: 63 yrs Sex: Male : 1955 Arrival Date: 04/01/2019 Time: 13:25 Bed 30 Private MD: Bebeto Jaffe H Diagnosis: Other chest pain;Type 1 diabetes mellitus;Obesity, unspecified Presentation: 04/01 13:27 Presenting complaint: Patient states: i have short of breath and my chest hurts since this morning; reports nausea;. Transition of care: patient was not received from another setting of care. Onset of symptoms was April 01, 2019. Risk Assessment: Do you want to hurt yourself or someone else? Patient reports no desire to harm self or others. Initial Sepsis Screen: Does the patient meet any 2 criteria? No. Patient's initial sepsis screen is negative. Does the patient have a suspected source of infection? No. Patient's initial sepsis screen is negative. Care prior to arrival: None. 13:27 Method Of Arrival: Ambulatory 13:27 Acuity: ORACIO 3 Historical: - Allergies: 13:28 Ibuprofen; - Home Meds: 16:51 Abilify 5 mg Oral tab 1 tab once daily [Active]; Albuterol Inhl [Active]; amlodipine 5 hb mg tab 1 tab once daily [Active]; aspirin 81 mg oral chew once daily [Active]; atorvastatin 20 mg oral tab once daily [Active]; clonazepam 1 mg Oral tab 1 tab 3 times per day [Active]; Humalog 100 unit/mL Sub-Q soln 24 unit three times a day [Active]; oxycodone-acetaminophen 10-325 mg Oral tab 1 tab QID [Active]; metformin 500 mg oral tab [Active]; spironolactone 25 mg Oral tab 1 tab once daily [Active]; Insulin Glargine Sub-Q 50 unit nightly [Active]; gabapentin 300 mg oral cap 2 caps 3 times per day [Active]; Breo Ellipta 100-25 mcg/dose inhalation dsdv 1 puff once daily [Active]; clopidogrel 75 mg oral tab 1 tab once daily [Active]; Prevacid 30 mg Oral cpDR 1 cap once daily [Active]; Brovana 15 mcg/2 mL inhalation nebu 2 times per day [Active]; Proventil Inhl [Active]; Advair Diskus 250-50 mcg/dose Inhl dsdv 1 puff 2 times per day [Active]; Lipitor 80 mg Oral tab 1 tab once daily [Active]; - PMHx: 13:28 Anxiety; cardiac stent; COPD; Depression; Diabetes - IDDM; High Cholesterol; hj Hypertension; Myocardial infarction; - PSHx: 13:28 cardiac stent; hj - Immunization history:: Adult Immunizations up to date. - Social history:: Smoking status: Patient/guardian denies using tobacco. - Family history:: not pertinent. - Ebola Screening: : No symptoms or risks identified at this time. Screenin:00 Fall Risk Total Hodges Fall Scale indicates Low Risk Score (25-44 pts). Fall prevention hb measures have been instituted. Side Rails Up X 2 Frequent Obs/Assesments occuring As available Patient and Family Educated on Fall Prevention Program and strategies. 16:00 Abuse screen: Denies threats or abuse. Denies injuries from another. Nutritional hb screening: No deficits noted. Tuberculosis screening: No symptoms or risk factors identified. Assessment: 15:00 General: Appears in no apparent distress. uncomfortable, Behavior is calm, cooperative. hb Pain: Complains of pain in chest Pain does not radiate. Pain currently is 8 out of 10 on a pain scale. Pain began 4 hours ago. Is continuous. Neuro: Level of Consciousness is awake, alert, obeys commands, Oriented to person, place, time, situation. Cardiovascular: Heart tones S1 S2 present Capillary refill < 3 seconds Patient's skin is warm and dry. Respiratory: Airway is patent Respiratory effort is even, unlabored, Respiratory pattern is regular, symmetrical, Breath sounds are clear bilaterally. GI: No signs and/or symptoms were reported involving the gastrointestinal system. : No signs and/or symptoms were reported regarding the genitourinary system. EENT: No signs and/or symptoms were reported regarding the EENT system. Derm: Skin is intact, is healthy with good turgor, Skin is pink, warm \T\ dry. Musculoskeletal: No signs and/or symptoms reported regarding the musculoskeletal system. 16:00 Reassessment: Patient appears in no apparent distress at this time. No changes from hb previously documented assessment. Patient and/or family updated on plan of care and expected duration. Pain level reassessed. Patient is alert, oriented x 3, equal unlabored respirations, skin warm/dry/pink. 17:00 Reassessment: Patient appears in no apparent distress at this time. No changes from hb previously documented assessment. Patient and/or family updated on plan of care and expected duration. Pain level reassessed. Patient is alert, oriented x 3, equal unlabored respirations, skin warm/dry/pink. Vital Signs: 13:29 BP 106 / 67; Pulse 87; Resp 18; Temp 98.7(O); Pulse Ox 98% on R/A; Weight 110.68 kg; hj Height 5 ft. 7 in. (170.18 cm); Pain 8/10; 15:00 BP 115 / 76; Pulse 77; Resp 15; Pulse Ox 96% on 3 lpm NC; hb 16:00 BP 102 / 63; Pulse 76; Resp 16; Pulse Ox 99% on 3 lpm NC; hb 17:00 BP 111 / 87; Pulse 78; Resp 16; Pulse Ox 98% on 3 lpm NC; hb 13:29 Body Mass Index 38.22 (110.68 kg, 170.18 cm) ED Course: 13:25 Patient arrived in ED. mr 13:25 Bebeto Jaffe DO is Private Physician. mr 13:28 Triage completed. hj 13:30 Arm band placed on right wrist. hj 13:38 EKG done, by technical account manager. reviewed by Manish Maurer MD. at1 14:29 Heladio Veras MD is Attending Physician. bridger 14:36 Nicole Conroy, MILLA is Primary Nurse. hb 14:41 Jose Carpio MD is Hospitalizing Provider. bridger 14:45 Initial lab(s) drawn, by co, sent to lab. Inserted saline lock: 20 gauge in left dh3 antecubital area, using aseptic technique. Blood collected. 15:00 Patient has correct armband on for positive identification. Placed in gown. Bed in low hb position. Call light in reach. Side rails up X 1. 15:00 monitor tech on. Pulse ox on. NIBP on. hb 15:30 Oxygen administration via nasal cannula \T\ 3L/min. hb 17:48 No provider procedures requiring assistance completed. hb 17:48 Patient admitted, IV remains in place. hb Administered Medications: 14:57 Drug: Aspirin Chewable Tablet 162 mg Route: PO; hb 15:44 Follow up: Response: No adverse reaction hb 14:57 Drug: Zofran 4 mg Route: IVP; Site: left antecubital; hb 15:35 Follow up: Response: No adverse reaction hb 14:58 Drug: Pepcid 20 mg Route: IVP; Site: left antecubital; hb 15:30 Follow up: Response: No adverse reaction hb 14:58 Drug: morphine 2 mg Route: IVP; Site: left antecubital; hb 15:22 Follow up: Response: No adverse reaction hb 15:00 Drug: Lovenox 100 mg Route: Sub-Q; Site: abdomen; hb 15:44 Follow up: Response: No adverse reaction hb 15:10 Drug: morphine 2 mg Route: IVP; Site: left antecubital; hb 15:40 Follow up: Response: No adverse reaction hb Outcome: 14:43 Decision to Hospitalize by Provider. bridger 17:48 Admitted to Tele accompanied by tech, via stretcher, room 411, with oxygen, with chart, hb Report called to Riaz LOYOLA 17:48 Condition: stable 17:48 Instructed on the need for admit, Demonstrated understanding of instructions. 17:51 Patient left the ED. hb Signatures: Heladio Veras MD MD cha Rivera, Bea mr BarrazaAriana, doctor chiropractic EKG Tat1 Santi Canales RN RN hj Baxter, Heather, RN RN hb Herrera, Deanna dh3 Corrections: (The following items were deleted from the chart) 13:32 13:29 Temp 98.7F Oral; 110.68 kg; Height 5 ft. 7 in.; BMI: 38.2; Pain 8/10; [facility] 15:29 13:02 morphine 2 mg IVP in left antecubital hb hb
--- NOTE | 2019-04-01 14:58 | EKG ---
Test Date: 2019-04-01 Test Time: 13:32:17 Section Repairer: MARILIA MEASUREMENT RESULTS: Intervals: Rate: 90 RI: 160 QRSD: 86 QT: 372 QTc: 455 [place]: P: 27 RI: 160 QRS: -48 T: 28 INTERPRETIVE STATEMENTS: Normal sinus rhythm Left anterior fascicular block Abnormal ECG Compared to ECG 02/05/2019 14:21:20 Left anterior fascicular block now present T-wave abnormality no longer present Electronically Signed On 04-01-19 14:57:44 CDT by Dre Mai
[2019-04-01] MEDS ORDERED: ASPIRIN 81 MG CHEWABLE TABLET ONE (15:02)
[2019-04-01] MEDS ORDERED: ENOXAPARIN 100 MG/ML SYR SQ ONE (15:03)
[2019-04-01] MEDS ORDERED: ONDANSETRON 4 MG/2 ML VIAL ONE (15:03)
[2019-04-01] MEDS ORDERED: FAMOTIDINE 20 MG/2 ML VIAL IV ONE (15:03)
[2019-04-01] MEDS ORDERED: MORPHINE 4 MG/ML SYR ONE (15:03)
[2019-04-01 15:08] LABS: Absolute Lymphocytes (CBC) 1.7 K/uL (0.7-4.9); Absolute Monocytes 0.6 K/uL (0.1-1.3); Absolute Neutrophil 6.5 K/uL (1.8-8.0); Basophils % 0.7 % (0-1.3); Eosinophils % 1.2 % (0-4.4); Hematocrit 46.4 % (39.6-49.0); MPV 7.9 fL (7.6-11.3); Monocytes % 6.7 % (3.3-12.3); RBC Red Blood Cell Count 5.12 M/uL (4.33-5.43)
[2019-04-01 15:11] LABS: Protime INR 1.11
[2019-04-01 15:26] LABS: ALT/SGPT 25 U/L (12-78); AST/SGOT 20 U/L (15-37); Albumin 3.9 g/dL (3.4-5.0); Alkaline Phosphatase 67 U/L (45-117); BUN Blood Urea Nitrogen 21 mg/dL (7-18); Bicarbonate 23 mmol/L (21-32); Bilirubin Direct 0.1 mg/dL (0-0.2); Bilirubin Total 0.5 mg/dL (0.2-1.0); Glucose Level 149 mg/dL (74-106); NT PRO-BNP 27 pg/mL (<125); Potassium 3.8 mmol/L (3.5-5.1); Protein, Total 8.3 g/dL (6.4-8.2); Sodium Level 140 mmol/L (136-145); Troponin (Emerg Dept Use Only) < 0.02 ng/mL (0.0-0.045)
--- NOTE | 2019-04-01 15:37 | RAD REPORT ---
EXAM DESCRIPTION: Rekha Single View04/01/2019 3:19 pm CLINICAL HISTORY: Chest pain COMPARISON: January 2019 FINDINGS: The lungs appear clear of acute infiltrate. The heart is normal size IMPRESSION: No acute abnormalities displayed
[2019-04-01] MEDS ORDERED: NITROGLYCERIN 0.4 MG/TAB SL PRN (17:35)
[2019-04-01] MEDS ORDERED: ACETAMINOPHEN 500 MG TAB PO PRN (17:35)
--- NOTE | 2019-04-01 17:39 | P.HP ---
Certification for Inpatient Patient admitted to: Observation With expected LOS: <2 Midnights Practitioner: I am a practitioner with admitting privileges, knowledge of patient current condition, hospital course, and medical plan of care. Services: Services provided to patient in accordance with Admission requirements found in Title 42 Section 412.3 of the Code of Federal Regulations Patient History Date of Service: 04/01/19 Reason for admission: Chest pain History of Present Illness: Patient is a 63-year-old male with past medical history of hypertension, restrictive lung disease, diabetes, hyperlipidemia sleep apnea anxiety disorder who recently had a CT with cardiac stent [facility] in [facility] this [facility]. He stated that he has 2 more vessel blockages that were unable to be stented. Patient has been on aspirin and Plavix since his stent. Patient states that 3 days prior to admission he had sudden onset of chest pain which was sharp retrosternal nonradiating associated with shortness of breath no diaphoresis nausea or vomiting. Pain started at rest. Lasted for approximately 30 min underway with aspirin. And return the following day again started at rest and dissipated on its own. Today the pain worried the patient as he became more short of breath therefore he came into the ER for further evaluation. Patient's symptoms are intermittent moderate and progressively worsening. Patient reports taking his medications faithfully. In the ER his vital signs were stable. His workup revealed negative troponin level and EKG did not show any acute ST changes. Patient was referred for admission for further evaluation and treatment. Allergies ibuprofen Allergy (Intermediate, Verified 07/03/18 21:22) Hives/Rash Home medications list reviewed: Yes Home Medications: Fenofibrate 160 mg PO DAILY 04/29/18 ARIPiprazole [Abilify*] 5 mg PO DAILY 06/09/18 Lansoprazole [Prevacid] 30 mg PO DAILY 06/09/18 Metformin HCl 500 mg PO BID 06/09/18 Proair Hfa 90mcg/Inh 2 puff IH QIDP PRN 06/09/18 Clopidogrel Bisulfate [Plavix*] 75 mg PO DAILY #30 tablet 12/18/18 Aspirin 81 mg PO DAILY 02/05/19 Atorvastatin Calcium [Lipitor*] 80 mg PO BEDTIME 02/05/19 Lisinopril 5 mg PO DAILY 02/05/19 Oxycodone HCl/Acetaminophen [Oxycodone-Acetaminophen 10-325] 1 each PO QID PRN 02/05/19 Insulin Glargine,Hum.rec.anlog [Marla Lubin] 50 unit SQ DAILY #1 insuln.pen 02/08/19 Insulin Glulisine [Apidra] 15 unit SQ BREAKFAST #1 vial 02/08/19 Insulin Glulisine [Apidra] 15 units SQ DAILY AT SUPPER #1 vial 02/08/19 - Past Medical/Surgical History Diabetic: Yes -: IDDM -: Hypertension -: hyperlipidemia -: anxiety -: depression -: Gastroesophageal reflux disease -: Obstructive sleep apnea -: (home 02 4L) -: Coronary artery disease status post stent -: Pancreatic surgery -: cholecystectomy -: several back surgery -: Cardiac stent x1 -: 2008 ercp, punctured something in his pacreas, then transfered to -: [facility] for open exploratory lap, had feeding tube that has reversed -: trach from previous surgery at [facility] - Family History Father -: Heart disease, Diabetes Mother -: Heart disease, Hypertension, Lung disease, GI disease, Diabetes, Stroke, Liver disease, Kidney disease Brother -: Heart disease, Hypertension, Lung disease, Diabetes, Stroke, Liver disease, Kidney disease Notes: 2 brothers Sister -: Heart disease, GI disease Notes: no known illness - Social History Smoking Status: Unknown if ever smoked Alcohol use: No CD- Drugs: No Caffeine use: Yes Place of Residence: Home Review of Systems 10-point ROS is otherwise unremarkable Cardiovascular: As per HPI Physical Examination - Vital Signs Temperature: 98.7 F Blood Pressure: 106/67 Pulse: 87 Respirations: 18 Pulse Ox (%): 98 - Physical Exam General: Alert, Oriented x3, Mild distress, Obese, Other (Ill-appearing elderly male) HEENT: Atraumatic, PERRLA, Mucous membr. moist/pink, EOMI, Sclerae nonicteric Neck: Supple, 2+ carotid pulse no bruit, JVD not distended Respiratory: Clear to auscultation bilaterally, Normal air movement Cardiovascular: No edema, Normal pulses, Regular rate/rhythm, Normal S1 S2 Gastrointestinal: Normal bowel sounds, Soft and benign, Non-distended, No tenderness Musculoskeletal: No clubbing, No tenderness Integumentary: No rashes, No erythema Neurological: Normal speech, Normal strength at 5/5 x4 extr, Normal tone, Normal affect - Studies Laboratory Data (last 24 hrs) 04/01/19 14:45: Lipase 185 04/01/19 14:45: PT 13.0 H, INR 1.11 04/01/19 14:45: WBC 9.0, Hgb 15.6, Hct 46.4, Plt Count 280 04/01/19 14:45: Sodium 140, Potassium 3.8, BUN 21 H, Creatinine 0.77, Glucose 149 H, Magnesium 2.0, Total Bilirubin 0.5, AST 20, ALT 25, Alkaline Phosphatase 67 Imagings Data: EXAM DESCRIPTION: Rekha Single View04/01/2019 3:19 pm CLINICAL HISTORY: Chest pain COMPARISON: January 2019 FINDINGS: The lungs appear clear of acute infiltrate. The heart is normal size IMPRESSION: No acute abnormalities displayed Assessment and Plan - Problems (Diagnosis) (1) Unstable angina Current Visit: No Status: Acute (2) CAD (coronary artery disease) Onset Date: 05/08/17 Current Visit: No Status: Chronic Qualifiers: Coronary Disease-Associated Artery/Lesion type: [place] artery [place] vs. 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: with tank terminal gauger use Diabetes mellitus complication status: with hyperglycemia Qualified Code(s): E11.65 - Type 2 diabetes mellitus with hyperglycemia; Z79.4 - termite inspector (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 of insulin (5) HTN (hypertension) Onset Date: 06/11/18 Current Visit: No Status: Chronic Qualifiers: Hypertension type: essential hypertension (6) Obesity Onset Date: 06/11/18 Current Visit: No Status: Chronic Qualifiers: Obesity type: unspecified obesity type Obesity classification: adult class 2 (BMI 35 - 39.9) Serious obesity comorbidity presence: with serious comorbidity Body mass index: BMI 38.0-38.9 Qualified Code(s): E66.01 - Morbid (severe) obesity due to excess calories; Z68.38 - Body mass index (BMI) 38.0-38.9, adult (7) Restrictive lung disease Onset Date: 06/11/18 Current Visit: No Status: Chronic (8) Sleep apnea Onset Date: 01/16/17 Current Visit: No Status: Chronic Qualifiers: Sleep apnea type: unspecified type Qualified Code(s): G47.30 - Sleep apnea , unspecified (9) Left anterior fascicular block Current Visit: Yes Status: Acute - Plan Initiate chest pain guidelines with beta-mellisa aspirin statin and LM- inhibitor. Will use nitro and morphine p.r.n. chest pain. Consul cardiology. Obtain echocardiogram. Patient may have stent thrombosis however unlikely given his initial troponin. Will obtain serial cardiac enzymes to rule out ACS. Resume home medications as appropriate Sliding scale insulin and monitor Accu-Cheks DVT prophylaxis with Lovenox Family requested to bring patient's BiPAP that he uses at night for sleep apnea Discharge Plan: Home Plan to discharge in: 24 Hours - Advance Directives Does patient have a Living Will: No Does patient have a Durable POA for Healthcare: Yes - Code Status/Comfort Care Code Status Assessed: Yes
[2019-04-01] MEDS ORDERED: GLUCAGON 1 MG/VIAL IM PRN (17:51)
[2019-04-01] MEDS ORDERED: D50W 25 GM/50 ML SYRINGE IV PRN (17:51)
[2019-04-01 18:18] VITALS: BMI 38.2
[2019-04-01] MEDS: INSULIN -REGULAR HUMAN 50 UNIT/0.5 ML ML SQ SCH (21:32)
[2019-04-01] MEDS: ATORVASTATIN 40 MG TAB PO SCH (21:32)
[2019-04-01] MEDS: METOPROLOL TAR 25 MG TAB PO SCH (21:32)
[2019-04-02] MEDS: MORPHINE 2 MG/ML SYR IV PRN ×3 (02:11→11:23)
[2019-04-02 06:22] LABS: Urine Appearance CLEAR; Urine Bilirubin NEGATIVE (NEG); Urine Blood NEGATIVE (NEG); Urine Color YELLOW; Urine Glucose 3+ (NEG); Urine Microscopic Reflex NO UMIC; Urine Protein NEGATIVE (NEG); Urine Specific Gravity >=1.030 (1.005-1.030); Urine Urobilinogen 0.2 mg/dL (0.2-1.0); Urine pH 5.5 (5.0-7.0)
[2019-04-02 06:26] LABS: Absolute Lymphocytes (CBC) 1.9 K/uL (0.7-4.9); Absolute Monocytes 0.6 K/uL (0.1-1.3); Absolute Neutrophil 5.9 K/uL (1.8-8.0); Basophils % 0.4 % (0-1.3); Eosinophils % 1.3 % (0-4.4); Hematocrit 45.5 % (39.6-49.0); Lymphocytes % 22.4 % (15.3-44.8); MPV 7.9 fL (7.6-11.3); Monocytes % 6.9 % (3.3-12.3); RBC Red Blood Cell Count 5.01 M/uL (4.33-5.43)
[2019-04-02 06:27] LABS: BUN Blood Urea Nitrogen 20 mg/dL (7-18); Bicarbonate 24 mmol/L (21-32); Glucose Level 123 mg/dL (74-106); HDL Cholesterol 29 mg/dL (40-60); LDL Cholesterol, Calculated ND (<130); Potassium 3.9 mmol/L (3.5-5.1); Sodium Level 140 mmol/L (136-145)
[2019-04-02 06:38] LABS: LDL, Direct 66 mg/dL (100-129)
[2019-04-02] MEDS: INSULIN -REGULAR HUMAN 50 UNIT/0.5 ML ML SQ SCH ×4 (07:30→21:00)
[2019-04-02] MEDS: METOPROLOL TAR 25 MG TAB PO SCH ×2 (08:17→21:06)
[2019-04-02] MEDS: LISINOPRIL 10 MG TAB PO SCH (08:17)
[2019-04-02] MEDS: ASPIRIN EC 81 MG TAB PO SCH (08:17)
[2019-04-02] MEDS: ENOXAPARIN 40 MG/0.4 ML SQ SCH (08:17)
--- NOTE | 2019-04-02 12:41 | ECHO ---
HEIGHT: 5 ft 7 in WEIGHT: 244 lb 0 oz DATE OF STUDY: 04/02/[address]: Jose Carpio MD 2-DIMENSIONAL: YES M.MODE: YES DOPPLER: YES COLOR FLOW: YES TDS: NO PORTABLE: NO DEFINITY: NO BUBBLE STUDY: NO DIAGNOSIS: CHEST PAIN CARDIAC HISTORY: CATHERIZATION: YES SURGERY: NO PROSTHETIC VALVE: NO PACEMAKER: NO MEASUREMENTS (cm) DIASTOLIC (NORMALS) SYSTOLIC (NORMALS) IVSd 1.2 (0.6-1.2) LA Diam (1.9-4.0) LVEF 63% LVIDd 3.9 (3.5-5.7) LVIDs 2.6 (2.0-3.5) %FS 34% LVPWd 1.2 (0.6-1.2) Ao Diam 3.2 (2.0-3.7) 2 DIMENSIONAL ASSESSMENT: RIGHT ATRIUM: NORMAL LEFT ATRIUM: NORMAL RIGHT VENTRICLE: NORMAL LEFT VENTRICLE: NORMAL TRICUSPID VALVE: NORMAL MITRAL VALVE: NORMAL PULMONIC VALVE: NORMAL AORTIC VALVE: NORMAL PERICARDIAL EFFUSION: NONE AORTIC ROOT: NORMAL LEFT VENTRICULAR WALL MOTION: NORMAL DOPPLER/COLOR FLOW: NORMAL COMMENTS: NORMAL LEFT VENTRICULAR SIZE AND FUNCTION. NO WALL MOTION ABNORMALITY. NO EFFUSION. TECHNICALLY DIFFICULT STUDY. TECHNOLOGIST: Angel YE
[2019-04-02] MEDS ORDERED: ACETAMINOPHEN PO PRN (13:05)
[2019-04-02] MEDS ORDERED: OXYCODONE HCL PO PRN (13:05)
--- NOTE | 2019-04-02 15:35 | P.PN ---
Subjective Date of Service: 04/02/19 Chief Complaint: Chest pain Subjective: Improving Patient seen and examined at bedside. No family at bedside. Chart reviewed and case discussed with nursing staff. Patient reports improved chest pain, though continues to have discomfort. Review of Systems 10-point ROS is otherwise unremarkable Physical Examination - Vital Signs Temperature: 96.9 F Blood Pressure: 129/67 Pulse: 67 Respirations: 18 Pulse Ox (%): 98 - Physical Exam General: Alert, In no apparent distress, Oriented x3 HEENT: Atraumatic, PERRLA, EOMI Neck: Supple, JVD not distended Respiratory: Clear to auscultation bilaterally, Normal air movement Cardiovascular: Regular rate/rhythm, Normal S1 S2 Gastrointestinal: Normal bowel sounds, No tenderness Musculoskeletal: No tenderness Integumentary: No rashes Neurological: Normal speech, Normal tone, Normal affect Lymphatics: No axilla or inguinal lymphadenopathy Assessment And Plan - Plan Assessment and Plan - Problems (Diagnosis) (1) Unstable angina Current Visit: No Status: Acute (2) CAD (coronary artery disease) Onset Date: 05/08/17 Current Visit: No Status: Chronic Qualifiers: Coronary Disease-Associated Artery/Lesion type: [place] artery [place] vs. 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 Diabetes mellitus complication status: with hyperglycemia Qualified Code(s): E11.65 - Type 2 diabetes mellitus with hyperglycemia; Z79.4 - [facility] (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 of insulin (5) HTN (hypertension) Onset Date: 06/11/18 Current Visit: No Status: Chronic Qualifiers: Hypertension type: essential hypertension (6) Obesity Onset Date: 06/11/18 Current Visit: No Status: Chronic Qualifiers: Obesity type: unspecified obesity type Obesity classification: adult class 2 (BMI 35 - 39.9) Serious obesity comorbidity presence: with serious comorbidity Body mass index: BMI 38.0-38.9 Qualified Code(s): E66.01 - Morbid (severe) obesity due to excess calories; Z68.38 - Body mass index (BMI) 38.0-38.9, adult (7) Restrictive lung disease Onset Date: 06/11/18 Current Visit: No Status: Chronic (8) Sleep apnea Onset Date: 01/16/17 Current Visit: No Status: Chronic Qualifiers: Sleep apnea type: unspecified type Qualified Code(s): G47.30 - Sleep apnea , unspecified (9) Left anterior fascicular block Current Visit: Yes Status: Acute - Plan Continue chest pain guidelines with beta-mellisa,aspirin, statin, and LM- inhibitor. Will use nitro and morphine p.r.n. chest pain. Consulted cardiology , recomendations appreciated. Patient pending cardiac cath tomorrow. - echocardiogram normal. - Patient may have stent thrombosis, however unlikely given his initial troponin. Troponin negative x 3 - Continue home medications as appropriate - Sliding scale insulin and monitor Accu-Cheks - Family requested to bring patient's BiPAP that he uses at night for sleep apnea DVT prophylaxis with Lovenox NPO after midnight Disposition: Pending cardiac cath tomorrow.
[2019-04-02] MEDS: OXYCODONE HCL 5 MG TAB PO PRN (16:12)
[2019-04-02] MEDS: Oxycodone HCl/Acetaminophen 1 TAB TAB PO PRN ×2 (16:12→22:18)
[2019-04-02] MEDS: ATORVASTATIN 40 MG TAB PO SCH (21:06)
[2019-04-03] MEDS: Oxycodone HCl/Acetaminophen 1 TAB TAB PO PRN (06:31)
[2019-04-03] MEDS: OXYCODONE HCL 5 MG TAB PO PRN (06:32)
[2019-04-03] MEDS: METOPROLOL TAR 25 MG TAB PO SCH (06:32)
[2019-04-03] MEDS ORDERED: LIDOCAINE 1% MPF 30 ML VIAL ONE (07:27)
[2019-04-03] MEDS ORDERED: HEPA 1000U/500MLS 2,000 UNIT/1,000 ML BAG IV ONE (07:27)
[2019-04-03] MEDS: INSULIN -REGULAR HUMAN 50 UNIT/0.5 ML ML SQ SCH ×3 (07:30→16:26)
[2019-04-03 07:44] LABS: Absolute Lymphocytes (CBC) 2.3 K/uL (0.7-4.9); Absolute Monocytes 0.7 K/uL (0.1-1.3); Absolute Neutrophil 6.9 K/uL (1.8-8.0); Basophils % 0.9 % (0-1.3); Eosinophils % 1.6 % (0-4.4); Hematocrit 44.5 % (39.6-49.0); MPV 7.8 fL (7.6-11.3); RBC Red Blood Cell Count 4.84 M/uL (4.33-5.43)
[2019-04-03 08:08] LABS: ALT/SGPT 22 U/L (12-78); AST/SGOT 13 U/L (15-37); Albumin 3.7 g/dL (3.4-5.0); Alkaline Phosphatase 63 U/L (45-117); BUN Blood Urea Nitrogen 24 mg/dL (7-18); Bicarbonate 25 mmol/L (21-32); Bilirubin Total 0.4 mg/dL (0.2-1.0); Glucose Level 154 mg/dL (74-106); Potassium 3.7 mmol/L (3.5-5.1); Protein, Total 7.7 g/dL (6.4-8.2); Sodium Level 139 mmol/L (136-145)
[2019-04-03] MEDS ORDERED: NA CHLORIDE 0.9% 500 ML ONE (08:22)
[2019-04-03] MEDS ORDERED: FLUMAZENIL 0.1 MG/ML (5 mL VIAL) IV ONE (08:32)
[2019-04-03] MEDS ORDERED: HEPARIN 5000 UNIT/ML 1 ML VIAL ONE (08:33)
[2019-04-03] MEDS ORDERED: MIDAZOLAM HCL 2 MG/2 ML INJ ONE ×2 (08:33→08:42)
[2019-04-03] MEDS ORDERED: NICARDIPINE HCL 25 MG/10 ML IV ONE (08:33)
[2019-04-03] MEDS ORDERED: FENTANYL CITR 100 MCG/2 ML ONE (08:33)
[2019-04-03] MEDS ORDERED: ATROPINE SULF 1 MG/10 ML SYR IV ONE (08:34)
[2019-04-03] MEDS ORDERED: NA CHLORIDE 0.9% 0 ML IV ONE (08:34)
[2019-04-03] MEDS ORDERED: NITROGLYCERIN 100 MCG/ML SYR (for cath lab use only) IV ONE (08:34)
[2019-04-03] MEDS ORDERED: NITROGLYCERIN/D5W 25 MG/250 ML BTL IV ONE (08:34)
[2019-04-03] MEDS: LISINOPRIL 10 MG TAB PO SCH (09:00)
[2019-04-03] MEDS: ASPIRIN EC 81 MG TAB PO SCH (09:00)
[2019-04-03] MEDS: ENOXAPARIN 40 MG/0.4 ML SQ SCH (09:00)
[2019-04-03 10:14] VITALS: O2SAT 96
--- NOTE | 2019-04-03 11:44 | CON ---
Date of Consultation: 04/02/2019 Reason For Consultation: Acute coronary syndrome. History Of Present Illness: Mr. Burnett is a 63-year-old [place] male, who has a history of c oronary artery disease status post recent stent at [facility]. This sounds like he had a stent at the circumflex level. He said that they found another occluded blood vessel that they could not dilate. He has a history of anxiety, dyslipidemia, COPD, hypertension, diabetes, and depression . He came in with substernal chest pressure, shortness of breath, left arm radiation, and diaphoresi s. No nausea or vomiting. His EKG and chest x-ray were unremarkable. His troponin was negative. H is triglyceride was 414. Continues to have symptoms with exertion. Symptoms have been going on for about 24 hours. Allergies: MOTRIN. Review of Systems: Negative. Social History: Negative. Family History: Noncontributory. Medications: At home include insulin, fenofibrate, Neurontin, Prevacid, Lipitor, metformin, [place] e, Plavix, aspirin, Abilify, and inhalers. Physical Examination: General: Mr. Burnett appears slightly anxious, but in no acute distress. Vital Signs: Stable. He was afebrile. HEENT: Negative. Neck: Supple without any bruit, lymphadenopathy, JVD, or thyromegaly. Chest: Clear to auscultation and percussion. Cardiac: Revealed a regular rhythm and rate. No murmurs, gallops, or rubs. Abdomen: Benign. Extremities: Revealed no clubbing, cyanosis, or edema. Diagnostic Data: As stated earlier. Impression And Plan: The patient with history of coronary artery disease status post recent stent. I believe it was in October of this year. Symptoms are consistent with unstable angina. Case was di scussed with him. He understands the risk and the benefits of the heart catheterization and he agree d to proceed. This will be done by Dr. Mai on 04/03/2019. For now, continue his present regimen. His other problems include anxiety, which is stable. Dyslipidemia, poorly controlled with a trigly ceride of 414, but he is already on fenofibrate and Lipitor. His other problems also include chronic obstructive pulmonary disease. Hypertension that is well controlled. Depression and diabetes that are well controlled. We will continue to follow Mr. Burnett post catheterization. GREGORY/SHERYL Voice ID: [id number] Report ID: [id number]
--- NOTE | 2019-04-03 14:15 | P.DS ---
Admission Date: 04/02/19 Discharge Date: 04/03/19 Reason for Admission: Chest pain Consultations: Cardiology Brief History of Present Illness: Patient is a 63-year-old male with past medical history of hypertension, restrictive lung disease, diabetes, hyperlipidemia sleep apnea anxiety disorder who recently had a [place] with cardiac stent placed in [facility] October of this year. He stated that he has 2 more vessel blockages that were unable to be stented. Patient has been on aspirin and Plavix since his stent. Patient states that 3 days prior to admission he had sudden onset of chest pain which was sharp retrosternal nonradiating associated with shortness of breath no diaphoresis nausea or vomiting. Pain started at rest. Lasted for approximately 30 min underway with aspirin. And return the following day again started at rest and dissipated on its own. Today the pain worried the patient as he became more short of breath therefore he came into the ER for further evaluation. Patient's symptoms are intermittent moderate and progressively worsening. Patient reports taking his medications faithfully. In the ER his vital signs were stable. His workup revealed negative troponin level and EKG did not show any acute ST changes. Hospital Course: Patient was referred for admission for further evaluation and treatment of his chest pain. Chest pain guidelines were initiated. Cardiology was consulted. ECHO was normal. Cardiac cath was ordered and patient was found to have re- stenosis of the stent. Patient was then transferred to [facility] for CABG, per cardiology. He otherwise remained stable throughout the stay Vital Signs/Physical Exam: Temp Pulse Resp BP Pulse Ox 97.8 F 68 16 125/71 93 04/03/19 12:10 04/03/19 12:10 04/03/19 12:10 04/03/19 12:10 04/03/19 12:10 General: Alert, In no apparent distress HEENT: Atraumatic, PERRLA, EOMI Neck: Supple, JVD not distended Respiratory: Clear to auscultation bilaterally, Normal air movement Cardiovascular: Regular rate/rhythm, Normal S1 S2 Gastrointestinal: Normal bowel sounds, No tenderness Musculoskeletal: No tenderness Integumentary: No rashes Neurological: Normal speech, Normal tone, Normal affect Lymphatics: No axilla or inguinal lymphadenopathy Laboratory Data at Discharge: WBC 10.2 K/uL (4.3-10.9) D 04/03/19 07:29 Hgb 15.1 g/dL (13.6-17.9) 04/03/19 07:29 Hct 44.5 % (39.6-49.0) 04/03/19 07:29 Plt Count 250 K/uL (152-406) 04/03/19 07:29 PT 13.0 SECONDS (9.5-12.5) H 04/01/19 14:45 INR 1.11 04/01/19 14:45 Sodium 139 mmol/L (136-145) 04/03/19 07:29 Potassium 3.7 mmol/L (3.5-5.1) 04/03/19 07:29 BUN 24 mg/dL (7-18) H 04/03/19 07:29 Creatinine 0.82 mg/dL (0.55-1.3) 04/03/19 07:29 Glucose 154 mg/dL (74-106) H 04/03/19 07:29 Magnesium 2.0 mg/dL (1.8-2.4) 04/01/19 14:45 Total Bilirubin 0.4 mg/dL (0.2-1.0) 04/03/19 07:29 AST 13 U/L (15-37) L 04/03/19 07:29 ALT 22 U/L (12-78) 04/03/19 07:29 Alkaline Phosphatase 63 U/L (45-117) 04/03/19 07:29 Troponin I < 0.02 ng/mL (0.0-0.045) 04/02/19 17:35 Triglycerides 414 mg/dL (<150) H 04/02/19 05:17 Cholesterol 133 mg/dL (<200) 04/02/19 05:17 LDL Cholesterol Direct 66 mg/dL (100-129) L 04/02/19 05:17 HDL Cholesterol 29 mg/dL (40-60) L 04/02/19 05:17 Cholesterol/HDL Ratio 4.59 04/02/19 05:17 Lipase 185 U/L (73-393) 04/01/19 14:45 Home Medications: Fenofibrate 160 mg PO DAILY 04/29/18 ARIPiprazole [Abilify*] 1 mg PO DAILY 06/09/18 Lansoprazole [Prevacid] 30 mg PO DAILY 06/09/18 Metformin HCl 500 mg PO BID 06/09/18 Proair Hfa 90mcg/Inh 2 puff IH QIDP PRN 06/09/18 Clopidogrel Bisulfate [Plavix*] 75 mg PO DAILY #30 tablet 12/18/18 Aspirin 81 mg PO DAILY 02/05/19 Atorvastatin Calcium [Lipitor*] 80 mg PO BEDTIME 02/05/19 Oxycodone HCl/Acetaminophen [Oxycodone-Acetaminophen 10-325] 1 each PO QID PRN 02/05/19 Insulin Glulisine [Apidra] 15 unit SQ BREAKFAST #1 vial 02/08/19 Insulin Glulisine [Apidra] 15 units SQ DAILY AT SUPPER #1 vial 02/08/19 Albuterol Inhaler [Ventolin Inhaler*] 2 puff IH QIDP PRN 04/01/19 Fluticasone/Salmeterol [Advair 250-50 Diskus] 1 puff IH DAILY 04/01/19 Fluticasone/Vilanterol [Breo Ellipta 100-25 Mcg INH] 1 puff IH DAILY 04/01/19 Gabapentin [Neurontin] 600 mg PO TID 04/01/19 Insulin Glargine,Hum.rec.anlog [T[place]o Solostar] 50 unit SQ BEDTIME 04/01/19 Spironolactone [Aldactone] 25 mg PO DAILY 04/01/19 clonazePAM [Clonazepam] 1 tab PO BID 04/01/19 Diet: AHA Time spent managing pt's care (in minutes): 45
[2019-04-03 16:41] VITALS: BP 148/84; TEMP 97
--- NOTE | 2019-04-03 17:56 | OP ---
Surgeon: Dre Mai MD A 63-year-old man. Attending Physician: Jose Carpio M.D. Procedures: Left heart catheterization, coronary left ventricular angiography. Procedure Findings: The patient has an RCA stent that was placed in October 2018. It is about 50% b locked with in-stent thrombosis. The distal part of the RCA has a 50% lesion just before the takeoff of the posterior descending. The patient's left main coronary artery is free of any significant debbie nosis. The proximal LAD has a long smooth 70% stenosis and distally it has a 90% stenosis with ANASTASIIA 1 flow in the distal LAD. There is a large diagonal that is free of any significant disease. The ci rcumflex is diffusely ectatic and plaque, but no significant stenosis. Left ventricular ejection fra ction 65%. Normal segmental wall motion. Left ventricular end-diastolic pressure elevated at 21 mmH g. Our recommendation is for coronary bypass surgery. Procedure In Detail: The patient was brought to the cardiac labor representative in a fasting state, sedated wit h Versed and fentanyl. Right radial approach was used. We entered the right radial artery after pre p and drape. Anesthesia with 1% lidocaine locally. Entered the artery with a 21-gauge needle, cannu lated it with a 0.[address] a 6-[place] Terumo radial sheath, flushed and ga ve a radial cocktail consisting of nicardipine, heparin, and nitroglycerin. We guided a TIG catheter into the ascending aorta using a Terumo Glidewire with a short radius J-tip. Same catheter was succ essful engaging right coronary with left main and left ventricle for all of photographs and angiogram s. At the end of the procedure, the catheter was withdrawn over a wire. The sheath was removed and the arteriotomy closed with a large TR band. Estimated Blood Loss: 5 cc. Complications: From the procedure none. BRITTANEY/SHERYL Voice ID: [id number] Report ID: [id number]
== END 2019-04-03 16:28 | disposition short-term general hospital (02) | DRG 287 ==
LOC: ER 13:22 → ERHOLD 15:55 → 4TH 17:18 → OBSVTOIN 04-02 17:00
PROVIDERS: ADMIT Family Medicine; ATTEND Family Medicine
PROC: 4A023N7 Measurement of Cardiac Sampling and Pressure, Left Heart, Percutaneous Approach (ICD-10-PCS; principal; 2019-04-03)
PROC: B2111ZZ Fluoroscopy of Multiple Coronary Arteries using Low Osmolar Contrast (ICD-10-PCS; 2019-04-03)
PROC: B2151ZZ Fluoroscopy of Left Heart using Low Osmolar Contrast (ICD-10-PCS; 2019-04-03)
DX: I25.110 Atherosclerotic heart disease of native coronary artery with unstable angina pectoris (principal); T82.855A Stenosis of coronary artery stent, initial encounter; I50.32 Chronic diastolic (congestive) heart failure; I11.0 Hypertensive heart disease with heart failure; Y84.0 Cardiac catheterization as the cause of abnormal reaction of the patient, or of later complication, without mention of misadventure at the time of the procedure; J98.4 Other disorders of lung; E78.5 Hyperlipidemia, unspecified; E11.65 Type 2 diabetes mellitus with hyperglycemia; I44.4 Left anterior fascicular block; G47.33 Obstructive sleep apnea (adult) (pediatric); E66.01 Morbid (severe) obesity due to excess calories; K21.9 Gastro-esophageal reflux disease without esophagitis; F41.9 Anxiety disorder, unspecified; F32.9 Major depressive disorder, single episode, unspecified; Z68.38 Body mass index [BMI] 38.0-38.9, adult; Z79.82 Long term (current) use of aspirin; Z79.4 Long term (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 of insulin
CPT/HCPCS: 36415; 71045; 80048; 80053; 80061; 80076; 81003; 82962; 83690; 83735; 83880; 84484; 85025; 85610; 93005; 93306; 93458; 94660; 94760; 96372; 96374; 96375; 99285; C1893; G0378; J0583; J1644; J1650; J2250; J2270; J2405; J3010

== ENCOUNTER 2019-06-26 11:02 | Inpatient (IN) | payer MEDICARE, SELFPAY ==
--- OUTSIDE RECORDS SUMMARY | 2019-06-26 10:24 | XMS REPORT | Clinical Summary ---
:1955 Author Organization [facility] Address [address] [place] [address] Care Team Providers Name Role Phone Bebeto Jaffe DO Primary Care Provider Allergies Active Allergy Reactions Severity Noted Date Comments Ibuprofen 07/18/2016 Medications Medication Sig Dispensed Refills Start End Date Status Date PROAIR HFA 90 USE 2 PUFFS 4 Active mcg/actuation NEEDED EVERY 4 6 inhaler HRS, NEEDED FOR INHALATION 30 DAYS oxyCODone-acetamino TAKE 1 TABLET 0 Active phen (PERCOCET) BY MOUTH EVERY 6 10-325 mg per TWELVE HOURS tablet NEEDED FOR PAIN SPIRIVA RESPIMAT TAKE 2 PUFFS 3 Active 2.5 mcg/actuation BY MOUTH EVERY 6 mist DAY traZODone (DESYREL) Take 100 mg by 0 Active 100 MG tablet mouth nightly. ONETOUCH DELICA CHECK GLUCOSE 100 each 3 Active LANCETS 33 gauge TWICE A DAY 7 [facility] blood sugar Check glucose 400 strip 3 Active diagnostic strips 4 times a day 7 (ONETOUCH VERIO) strip test stripsIndications: Type 2 diabetes mellitus with complication, with long-term current use of insulin ([facility]) insulin Use 1 syringe 270 each 1 Active syringe-needle TID. 8 U-100 1 mL 31 gauge x 5/16 syringe spironolactone Take 50 mg by 0 Active (ALDACTONE) 50 MG mouth daily. tablet omeprazole Take 40 mg by 0 Active (PriLOSEC) 40 MG mouth 2 (two) capsule times a day. ARIPiprazole Take 10 mg by 0 Active (ABILIFY) 10 MG mouth daily. tablet clonAZEPAM Take 1 mg by 0 Active (KlonoPIN) 1 MG mouth 3 tablet (three) times a day as needed for seizures. pen needle, Use 4 needles 400 each 3 Active diabetic (BD a day. Dx: 8 ULTRA-FINE TIERA PEN E11.65 NEEDLE) 32 gauge x 5/32" needle TOUJEO SOLOSTAR Inject 75 22.5 mL 3 Active U-300 INSULIN 300 Units under 8 unit/mL (1.5 mL) the skin insulin daily. penIndications: Type 2 diabetes mellitus with complication, with long-term current use of insulin (HCC) APIDRA SOLOSTAR Inject 30 33 mL 3 Active U-100 INSULIN 100 units in the 8 unit/mL insulin morning, 36 penIndications: units at lunch Type 2 diabetes and 36 units mellitus with at dinner plus complication, with sliding scale. long-term current use of insulin (HCC) aspirin (ECOTRIN) Take 81 mg by 0 Active 81 MG enteric mouth daily. coated tablet clopidogrel Take 75 mg by 0 Active (PLAVIX) 75 mg mouth daily. tablet metFORMIN TAKE 1 TABLET 180 tablet 3 Active (GLUCOPHAGE) 1,000 BY MOUTH TWO 9 mg tablet TIMES DAILY WITH MEALS empagliflozin Take 1 tablet 90 tablet 3 Active (JARDIANCE) 25 mg (25 mg total) 9 tablet by mouth daily. metoprolol tartrate Take 50 mg by 0 Active (LOPRESSOR) 50 mg mouth 2 (two) tablet times a day. GABAPENTIN ORAL Take by mouth. 0 Active atorvastatin Take 1 tablet 90 tablet 1 Active (LIPITOR) 20 MG (20 mg total) 9 tablet by mouth daily. cyclobenzaprine Take 10 mg by 0 02/26/20 Discontinued (FLEXERIL) 10 MG mouth 3 6 19 (Med List tablet (three) times Cleanup) a day as needed. for muscle spams lansoprazole Take 1 0 07/25/20 Discontinued (PREVACID) 30 MG capsule(s) 18 (Med List capsule every day by Cleanup) oral route. famotidine (PEPCID) Take 20 mg by 0 02/26/20 Discontinued 20 MG tablet mouth 2 (two) 6 19 (Med List times a day. Cleanup) lansoprazole Take 30 mg by 0 07/25/20 Discontinued (PREVACID) 30 MG mouth 2 (two) 6 18 (Duplicate capsule times a day. order) venlafaxine XR Take 150 mg by 0 02/26/20 Discontinued (EFFEXOR-XR) 150 MG mouth daily. 19 (Med List 24 hr capsule Cleanup) pen needle, Use 4 needles 400 each 3 08/23/20 Discontinued diabetic (BD a day 6 18 (Reorder) ULTRA-FINE TIERA PEN NEEDLES) 32 gauge x 5/32" needle fenofibrate TAKE 1 TABLET 90 tablet 3 02/26/20 Discontinued (LOFIBRA) 160 MG BY MOUTH EVERY 7 (Med List tabletIndications: DAY Cleanup) Mixed hyperlipidemia VITAMIN D2 50,000 TAKE 1 CAPSULE 13 capsule 0 02/26/20 Discontinued unit capsule EVERY WEEK IN 05 17 (Med List THE MORNING Cleanup) FOR 91 DAYS. lancets (ONETOUCH 1 each 4 400 each 3 05/27/20 Discontinued DELICA LANCETS) 33 (four) times a 7 (Duplicate gauge day. order) miscIndications: Type 2 diabetes mellitus with complication, with long-term current use of insulin (HCC) enalapril (VASOTEC) Take 1 tablet 90 tablet 1 02/26/20 Discontinued 20 MG (20 mg total) 05 17 (Med List tabletIndications: by mouth Cleanup) Benign essential daily. hypertension insulin GLARGINE Inject 70 22.5 mL 1 10/17/20 Discontinued (TOUJEO SOLOSTAR) Units under 7 18 (Reorder) 300 unit/mL (1.5 the skin mL) insulin daily. penIndications: Type 2 diabetes mellitus with complication, with long-term current use of insulin (HCC) insulin glulisine Inject under 0 10/17/20 Discontinued U-100 (APIDRA the skin. 18 (Reorder) SOLOSTAR U-100 Inject 30 INSULIN) 100 units in the unit/mL insulin pen morning, 32 units at lunch and 32 units at dinner plus sliding scale. metFORMIN Take 1,000 mg 0 11/20/19 Discontinued (GLUCOPHAGE) 1,000 by mouth 2 19 (Reorder) mg tablet (two) times a day with meals. atorvastatin Take 20 mg by 0 07/25/20 Discontinued (LIPITOR) 20 MG mouth nightly. 18 (Reorder) tablet Default OP ins furosemide (LASIX) Take 40 mg by 0 02/26/20 Discontinued 40 mg tablet mouth 2 (two) 19 (Med List times a day. Cleanup) atorvastatin Take 1 tablet 90 tablet 3 02/26/20 Discontinued (LIPITOR) 20 MG (20 mg total) 8 19 (Med List tablet by mouth Cleanup) nightly. Default OP ins empagliflozin Take 1 tablet 30 tablet 1 02/26/20 Discontinued (JARDIANCE) 10 mg (10 mg total) 9 19 tablet tablet by mouth daily. lisinopril Take 5 mg by 0 02/26/20 Discontinued (PRINIVIL,ZESTRIL) mouth daily. 19 (Med List 5 mg tablet Cleanup) metoprolol tartrate Take 50 mg by 0 02/26/20 Discontinued (LOPRESSOR) 50 mg mouth daily. 19 (Med List tablet Cleanup) empagliflozin Take 1 tablet 21 tablet 0 03/26/20 Discontinued (JARDIANCE) 25 mg (25 mg total) 9 19 (Reorder) tablet by mouth daily. LOT # [id number] EXP: atorvastatin Take 20 mg by 0 05/29/20 Discontinued (LIPITOR) 20 MG mouth daily. 19 (Reorder) tablet Default OP ins atorvastatin Take 1 tablet 90 tablet 1 05/29/20 Discontinued (LIPITOR) 20 MG (20 mg total) 9 19 (Reorder) tablet by mouth daily. Active Problems Problem Noted Date Benign hypertension [...] Encounters Date Type Specialty Care Team Description 05/29/2019 Orders Only Endocrinology Susanna Laboy MA 05/29/2019 Orders Only Endocrinology Susanna Laboy MA 05/28/2019 Refill Endocrinology Divina Zendejas MD 05/27/2019 Office Visit Endocrinology Divina Zendejas, Type 2 diabetes mellitus MD with complication, unspecified whether [facility] insulin use (HCC) (Primary Dx) 03/26/2019 Orders Only Endocrinology Susanna Laboy MA 02/25/2019 Office Visit Endocrinology Divina Zendejas, Type 2 diabetes mellitus with complication, unspecified whether [facility]p insulin use (HCC) ( Primary Dx); Mixed hyperlipidemia; Coronary artery disease involving [place] heart without angina pectoris , unspecified vessel or lesion type; Benign essential hypertension 11/20/2018 Refill Endocrinology Divina Zendejas MD 11/19/2018 Office Visit Endocrinology Divina Zendejas, Type 2 diabetes mellitus with complication, unspecified whether buttermaker insulin use (HCC) ( Primary Dx); Coronary artery disease involving [place] heart without angina pectoris, unspecified vessel or lesion type; Mixed hyperlipidemia 10/17/2018 Orders Only Endocrinology Divina Zendejas Type 2 diabetes mellitus MD with complication, with long-term current use of insulin (HCC) 08/23/2018 Orders Only Endocrinology Susanna Laboy MA 07/25/2018 Office Visit Endocrinology Divina Zendejas, Uncontrolled type 2 diabetes MD mellitus with complication, unspecified buttermaker insulin use status (Primary Dx) after 06/25/2018 Family History Medical History Relation Name Comments [...] Vital Signs Vital Sign Reading Time Taken Comments Blood Pressure 136/84 05/27/2019 10:24 AM CDT Pulse 73 05/27/2019 10:24 AM CDT Temperature - - Respiratory Rate - - Oxygen Saturation 94% 05/27/2019 10:24 AM CDT Inhaled Oxygen Concentration - - Weight 106 kg (233 lb 3.2 oz) 05/27/2019 10:24 AM CDT Height 170.2 cm (5' 7") 05/27/2019 10:24 AM CDT Body Mass Index 36.52 05/27/2019 10:24 AM CDT Plan of Treatment Date Type Specialty Care Team Description 09/02/2019 Office Visit Endocrinology Divina Zendejas MD [address] [address] Health Maintenance Due Date Last Done Comments COLONOSCOPY SCREENING 2003 SHINGLES VACCINES (#1) 2003 DIABETIC FOOT EXAM 10/10/2017 10/10/2016, 10/10/2016, 07/18/2016 65+ PNEUMOCOCCAL VACCINE (1 of 2 - 2018 PCV13) INFLUENZA VACCINE 05/30/2019 07/27/2017, 07/13/2016 URINE MICROALBUMIN 07/19/2019 07/19/2018, 01/07/2017, 01/07/2017, Additional history exists DIABETIC RETINAL EYE EXAM 03/20/2020 03/20/2018, 04/28/2017, 04/28/2016 Procedures Procedure Name Priority Date/Time Associated Diagnosis Comments POC GLYCOSYLATED Routine 05/27/2019 10:47 Type 2 diabetes Results for this HEMOGLOBIN (HGB A1C) AM CDT mellitus with procedure are in complication, the results unspecified whether section. buttermaker insulin use (HCC) POC GLUCOSE Routine 05/27/2019 10:39 Type 2 diabetes Results for this AM CDT mellitus with procedure are in complication, the results unspecified whether section. buttermaker insulin use (HCC) HEMOGLOBIN A1C Routine 02/13/2019 7:07 Type 2 diabetes Results for this AM CDT mellitus with procedure are in complication, the results unspecified whether section. [facility] insulin use (HCC) HEMOGLOBIN A1C Routine 11/10/2018 8:08 Uncontrolled type 2 Results for this AM TRANSMITTER ENGINEER IN CHARGE diabetes mellitus with procedure are in complication, the results unspecified m[facility]p section. insulin use status BASIC METABOLIC PANEL Routine 11/10/2018 8:08 Uncontrolled type 2 Results for this AM TRANSMITTER ENGINEER IN CHARGE diabetes mellitus with procedure are in complication, the results unspecified buttermaker section. insulin use status VITAMIN D 25 [...] procedure are in complication, the results unspecified m[facility]p section. insulin use status Hyperlipidemia, unspecified hyperlipidemia type COMPREHENSIVE Routine 07/19/2018 7:17 Uncontrolled type 2 Results for this METABOLIC PANEL AM CDT diabetes mellitus with procedure are in complication, the results unspecified buttermaker section. insulin use status HEMOGLOBIN A1C Routine 07/19/2018 7:17 Uncontrolled type 2 Results for this AM CDT diabetes mellitus with procedure are in complication, the results unspecified m[facility]p section. insulin use status after 06/25/2018 Results POC glycosylated hemoglobin (Hb A1C) (05/27/2019 10:47 AM CDT) POC Hemoglobin A1C 7.2 % Specimen Blood POC glucose (05/27/2019 10:39 AM CDT) POC glucose 175Comment: NON FASTING 65 - 100 Specimen Blood Hemoglobin A1c (02/13/2019 7:07 AM CDT)Only the most recent of3 resultswithin the time period is included. Hemoglobin A1C 8.7 (H) <5.7 % of [facility] Comment: total Hgb [place] For someone without known diabetes, a hemoglobin [...] Performing Organization Information: Site ID: [id number] Name: [facility] Address: [address] [place] [phone] Director: Mitzi Lyons Performing Organization Address City/State/Zipcode Phone Number Note [place] [address] [place] [address] Basic metabolic panel (11/10/2018 8:08 AM TRANSMITTER ENGINEER IN CHARGE) Glucose 118 (H) 65 - 99 [facility] Comment: mg/dL [place] Fasting reference interval For someone without known diabetes, a glucose value between 100 and 125 mg/dL is consistent with prediabetes and should be confirmed with a follow-up test. BUN, whole blood 19 7 - 25 mg/dL [facility] [place] Creatinine 0.86 0.70 - 1.25 [facility] Comment: mg/dL [place] For patients >49 years of age, the reference limit for Creatinine is approximately 13% higher for people identified as -Tanzanian. EGFR Non-Afr. 91 > OR=60 [facility] [place] mL/min/1.73m [place] 2 EGFR 105 > OR=60 [facility] [place] mL/min/1.73m [place] 2 BUN/creatinine NOT APPLICABLE 6 - 22 [facility] ratio (calc) [place] Sodium 137 135 - 146 [facility] mmol/L [place] Potassium 4.6 3.5 - 5.3 [facility] mmol/L [place] Chloride 101 98 - 110 [facility] mmol/L [place] CO2 26 20 - 32 [facility] mmol/L [place] Calcium 9.9 8.6 - 10.3 [facility] mg/dL [place] Specimen Blood Narrative Performed At FASTING:YES [facility] FASTING: YES Resulting Agency Comment Performing Organization Information: Site ID: [id number] Name: [facility] Address: [address] [place] [phone] Director: Mitzi Lyons Performing Organization Address City/State/Zipcode Phone Number Note [place] [address] [place] [address] Microalbumin / creatinine urine ratio (07/19/2018 7:17 AM CDT) Pathologist [facility] Creatinine, 137 20 - 320 [facility] urine, random mg/dL [place] Microalbumin, 0.6 See Note: [facility] urine Comment: mg/dL [place] Reference Range: Reference Range Not established Microalbumin/crea 4 <30 mcg/mg [facility] tinine ratio Comment: creat [place] The ADA defines abnormalities in albumin excretion as follows: Category Result (mcg/mg creatinine) Normal<30 Microalbuminuria 30-299 Clinical albuminuria > PR=421 The ADA recommends that at least two of three specimens collected within a 3-6 month period be abnormal before considering a patient to be within a diagnostic category. Specimen Narrative Performed At FASTING:YES [facility] FASTING: YES Resulting Agency Comment Performing Organization Information: Site ID: [id number] Name: [facility] Address: [address] [place] [phone] Director: Mitzi Lyons Performing Organization Address [facility] [place] [address] Vitamin D 25 hydroxy level (07/19/2018 7:17 AM CDT) Vitamin D, 19 (L) 30 - 100 [facility] 25-hydroxy Comment: ng/mL [place] Vitamin D Status 25-OH Vitamin D: Deficiency:<20 ng/mL Insufficiency: 20 - 29 ng/mL Optimal: > or=30 ng/mL For 25-OH Vitamin D testing on patients on D2-supplementation and patients for whom quantitation of D2 and D3 fractions is required, the QuestAssureD(TM) 25-OH VIT D, (D2,D3), LC/MS/MS is recommended: order code 02765 (patients >2yrs). For more information on this test, go to: http://education.Obatech/faq/WKW602 (This link is being provided for informational/educational purposes only.) Specimen Narrative Performed At FASTING:YES [facility] FASTING: YES Resulting Agency Comment Performing Organization Information: Site ID: [id number] Name: [facility] Address: [address] [place] [phone] Director: Mitzi Lyons Performing Organization Address [facility] [place] [address] Lipid panel (07/19/2018 7:17 AM CDT) Cholesterol, total 189 <200 mg/dL [facility] [place] HDL cholesterol 38 (L) >40 mg/dL [facility] [place] Triglycerides 262 (H) <150 mg/dL [facility] [place] LDL cholesterol 114 (H) mg/dL (calc) [facility] calculated Comment: [place] Reference range: <100 Desirable range <100 mg/dL for primary prevention; <70 mg/dL for patients with CHD or diabetic patients with > or=2 CHD risk factors. LDL-C is now calculated using the Bud calculation, which is a validated novel method providing better accuracy than the Friedewald equation in the estimation of LDL-C. Pillo GUERRA et al. BRENDA. 2013;310(19): 0378-3017 (http://education.Invarium/faq/HYY699) Cholesterol/HDL 5.0 (H) <5.0 (calc) [facility] ratio [place] Non-HDL cholesterol 151 (H) <130 mg/dL [facility] Comment: (calc) [place] For patients with diabetes plus 1 major ASCVD risk factor, treating to a non-HDL-C goal of <100 mg/dL (LDL-C of <70 mg/dL) is considered a therapeutic option. Specimen Blood Narrative Performed At FASTING:YES [facility] FASTING: YES Resulting Agency Comment Performing Organization Information: Site ID: [id number] Name: [facility] Address: [address] [place] [phone] Director: Mitzi Lyons Performing Organization Address City/State/Zipcode [place] [address] Comprehensive metabolic panel (07/19/2018 7:17 AM CDT) [facility] Glucose 107 (H) 65 - 99 [facility] Comment: mg/dL [place] Fasting reference interval For someone without known diabetes, a glucose value between 100 and 125 mg/dL is consistent with prediabetes and should be confirmed with a follow-up test. BUN, whole blood 33 (H) 7 - 25 mg/dL [facility] [place] Creatinine 0.93 0.70 - 1.25 [facility] Comment: mg/dL [place] For patients >49 years of age, the reference limit for Creatinine is approximately 13% higher for people identified as -Tanz[place]. EGFR Non-Afr. 86 > OR=60 [facility] [place] mL/min/1.73m [place] 2 EGFR 100 > OR=60 [facility] [place] mL/min/1.73m [place] 2 BUN/creatinine 35 (H) 6 - 22 [facility] ratio (calc) [place] Sodium 139 135 - 146 [facility] mmol/L [place] Potassium 4.4 3.5 - 5.3 [facility] mmol/L [place] Chloride 105 98 - 110 [facility] mmol/L [place] CO2 27 20 - 32 [facility] mmol/L [place] Calcium 9.6 8.6 - 10.3 [facility] mg/dL [place] Protein 6.8 6.1 - 8.1 [facility] g/dL [place] Albumin, S 4.2 3.6 - 5.1 [facility] g/dL [place] Globulin, total 2.6 1.9 - 3.7 [facility] g/dL (calc) [place] Albumin/globulin 1.6 1.0 - 2.5 [facility] ratio (calc) [place] Total bilirubin 0.4 0.2 - 1.2 [facility] mg/dL [place] Alkaline 46 40 - 115 U/L [facility] phosphatase [place] AST 21 10 - 35 U/L [facility] [place] ALT 26 9 - 46 U/L [facility] [place] Specimen Blood Narrative Performed At FASTING:YES [facility] FASTING: YES Resulting Agency Comment Performing Organization Information: Site ID: [id number] Name: [facility] Address: [address] [place] [phone] Director: Mitzi Lyons Performing Organization Address City/State/Zipcode Phone Number Note [place] [address] [place], [place] [phone] after 06/25/2018 Advance Directives For more information, please contact: [phone] Type Date Recorded 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
--- OUTSIDE RECORDS SUMMARY | 2019-06-26 10:32 | XMS REPORT ---
:1955 Author Organization [facility] Address [address] [place] [address] Care Team Providers Name Role Phone MARK MACKENZIE Unavailable Unavailable SANDY RDZ Unavailable Unavailable MARK BANERJEE Unavailable Unavailable TAIMEH, ZIAD A Unavailable Unavailable Problems This patient has no known problems. Allergies, Adverse Reactions, Alerts This patient has no known allergies or adverse reactions. Medications This patient has no known medications. Results Test Description Test Time Test Comments Text Results Atomic Results Result Comments BLOOD CULTURE 2019-04-26 20:01:00 Test Item Value Reference Range Comments CULTURE (BEAKER) (test ueum=5201) No growth in 5 days BLOOD [id number] 20:01:00 Test Item Value Reference Range Comments CULTURE (BEAKER) (test rhvo=0715) No growth in 5 days POCT-GLUCOSE [id number] 12:13:00 Test Item Value Reference Range Comments POC-GLUCOSE METER (BEAKER) 143 mg/dL 70-110 TESTED AT [facility] [address] [facility] (test gbjz=6256) [facility] [address] SPUTUM CULTURE + GRAM [id number] 10:30:00 Test Item Value Reference Range Comments CULTURE (BEAKER) (test See comment fyhb=9526) GRAM STAIN RESULT (BEAKER) 2+ WBCs (test dloy=1379) GRAM STAIN RESULT (BEAKER) 0-5 epithelial cells (test sowc=03211) GRAM STAIN RESULT (BEAKER) 1+ gram negative rods (test jqwk=009573) GRAM STAIN RESULT (BEAKER) 1+ gram positive cocci in (test cdaw=347347) clusters 3+ Normal respiratory davie presentWOUND CULTURE + GRAM [id number] 09:53:00 Test Item Value Reference Range Comments CULTURE (BEAKER) (test STAPHYLOCOCCUS AUREUS <1+ Staphylococcus yzxy=0877) aureus Clindamycin (test code=10) Erythromycin (test code=4) Linezolid (test code=40) Nitrofurantoin (test code=23) Oxacillin (test code=14) Rifampin (test code=43) Tetracycline (test code=2) Trimethoprim + Sulfamethoxazole (test code=47) Vancomycin (test code=13) GRAM STAIN RESULT No WBCs (BEAKER) (test dkqc=4279) GRAM STAIN RESULT No organisms seen (BEAKER) (test cgma=257562) POCT-GLUCOSE [id number] 08:04:00 Test Item Value Reference Range Comments POC-GLUCOSE METER (BEAKER) 162 mg/dL 70-110 TESTED AT [address] (test suna=4026) [facility] [address] POCT-GLUCOSE [id number] 21:15:00 Test Item Value Reference Range Comments POC-GLUCOSE METER (BEAKER) 274 mg/dL 70-110 TESTED AT [address] (test rdaz=2187) [facility] [address] POCT-GLUCOSE [id number] 17:23:00 Test Item Value Reference Range Comments POC-GLUCOSE METER (BEAKER) 169 mg/dL 70-110 TESTED AT [address] (test ewyo=5326) [facility] [address] POCT-GLUCOSE [id number] 12:24:00 Test Item Value Reference Range Comments POC-GLUCOSE METER (BEAKER) 182 mg/dL 70-110 TESTED AT [address] (test jhav=5026) [facility] [address] RAD, CHEST, 1 VIEW, NON [id number] 08:36:00Reason for exam:->SHORTNESS OF BREATHShould this be performed at the bedside?->YesFINAL REPORT CLINICAL HISTORY: SHORTNESS OF BREATH TECHNIQUE: 1 view of the chest. COMPARISON: 04/23/2019 IMPRESSION: There is new/increased left lung base consolidation. There isright basilar atelectasis. Subpulmonic pleural effusions cannot be excluded. The cardiomediastinal silhouette is magnified by technique with sternotomy wires. Signed: Yimi Harkins MDReport Verified Date/Time: 08:36:14 Reading Location: [facility] Radiology Reading Room POCT- GLUCOSE [id number] 07:40:00 Test Item Value Reference Range Comments POC-GLUCOSE METER (BEAKER) 119 mg/dL 70-110 TESTED AT [facility] [address] (test ybvv=3424) [facility] [address] [id number] 03:28:00 Test Item Value Reference Range Comments MAGNESIUM (BEAKER) (test afck=126) 2.0 mg/dL 1.6-2.6 BASIC METABOLIC [id number] 03:28:00 Test Item Value Reference Range Comments SODIUM (BEAKER) (test 138 meq/L 136-145 ifzd=477) POTASSIUM (BEAKER) (test 3.9 meq/L 3.5-5.1 xkht=454) CHLORIDE (BEAKER) (test 104 meq/L 98-107 rrww=031) CO2 (BEAKER) (test 25 meq/L 22-29 rwvz=387) BLOOD UREA NITROGEN 9 mg/dL 7-21 (BEAKER) (test hgii=865) CREATININE (BEAKER) (test 0.69 mg/dL 0.57-1.25 opae=039) GLUCOSE RANDOM (BEAKER) 168 mg/dL 70-105 (test lskf=968) CALCIUM (BEAKER) (test 8.3 mg/dL 8.4-10.2 wmie=977) EGFR (BEAKER) (test 115 mL/min/1.73 sq m ESTIMATED GFR IS NOT emvs=6146) ACCURATE CREATININE CLEARANCE IN PREDICTING GLOMERULAR FILTRATION RATE. ESTIMATED GFR IS NOT APPLICABLE FOR DIALYSIS PATIENTS. CBC W/PLT COUNT & AUTO [id number] 03:00:00 Test Item Value Reference Range Comments WHITE BLOOD CELL COUNT (BEAKER) (test cdzd=254) 6.6 K/ L 3.5-10.5 RED BLOOD CELL COUNT (BEAKER) (test iptf=967) 3.92 M/ L 4.63-6.08 HEMOGLOBIN (BEAKER) (test czxf=445) 11.7 GM/DL 13.7-17.5 HEMATOCRIT (BEAKER) (test lvtr=695) 36.2 % 40.1-51.0 MEAN CORPUSCULAR VOLUME (BEAKER) (test swxl=377) 92.3 fL 79.0-92.2 MEAN CORPUSCULAR HEMOGLOBIN (BEAKER) (test 29.8 pg 25.7-32.2 sodd=084) MEAN CORPUSCULAR HEMOGLOBIN CONC (BEAKER) (test 32.3 GM/DL 32.3-36.5 mzds=671) RED CELL DISTRIBUTION WIDTH (BEAKER) (test 13.0 % 11.6-14.4 hjww=109) PLATELET COUNT (BEAKER) (test wahg=258) 246 K/CU MM 150-450 MEAN PLATELET VOLUME (BEAKER) (test itja=391) 8.5 fL 9.4-12.4 NUCLEATED RED BLOOD CELLS (BEAKER) (test 0 /100 WBC 0-0 hofe=206) NEUTROPHILS RELATIVE PERCENT (BEAKER) (test 60 % fbeg=243) LYMPHOCYTES RELATIVE PERCENT (BEAKER) (test 28 % scqi=076) MONOCYTES RELATIVE PERCENT (BEAKER) (test 7 % jbmo=116) EOSINOPHILS RELATIVE PERCENT (BEAKER) (test 4 % ysrg=177) BASOPHILS RELATIVE PERCENT (BEAKER) (test 0 % uots=152) NEUTROPHILS ABSOLUTE COUNT (BEAKER) (test 4.01 K/ L 1.78-5.38 yvua=875) LYMPHOCYTES ABSOLUTE COUNT (BEAKER) (test 1.86 K/ L 1.32-3.57 liih=541) MONOCYTES ABSOLUTE COUNT (BEAKER) (test 0.47 K/ L 0.30-0.82 oych=562) EOSINOPHILS ABSOLUTE COUNT (BEAKER) (test 0.26 K/ L 0.04-0.54 hkjc=466) BASOPHILS ABSOLUTE COUNT (BEAKER) (test 0.02 K/ L 0.01-0.08 imiq=592) IMMATURE GRANULOCYTES-RELATIVE PERCENT (BEAKER) 0 % 0-1 (test svzh=2608) POCT-GLUCOSE [id number] 21:36:00 Test Item Value Reference Range Comments POC-GLUCOSE METER (BEAKER) 273 mg/dL 70-110 TESTED AT [address] (test uoej=6749) [place] [id number] POCT-GLUCOSE [id number] 17:43:00 Test Item Value Reference Range Comments POC-GLUCOSE METER (BEAKER) 239 mg/dL 70-110 TESTED AT [address] (test zwhk=5099) [place] [address] [id number] 14:55:00 Test Item Value Reference Range Comments POTASSIUM (BEAKER) (test ugol=590) 3.5 meq/L 3.5-5.1 Check Serum Potassium level 2 hours after oral potassium replacement completed or 30 min after intravenous potassium replacement.[id number] 14:55:00 Test Item Value Reference Range Comments MAGNESIUM (BEAKER) (test hvhk=305) 2.0 mg/dL 1.6-2.6 Check Serum Potassium level 2 hours after oral potassium replacement completed or 30 min after intravenous potassium replacement.HEMOGLOBIN [id number] 12:05 :00 Test Item Value Reference Range Comments HEMOGLOBIN A1C (BEAKER) (test ixoe=372) 6.8 % 4.3-6.1 POCT-GLUCOSE [id number] 11:38:00 Test Item Value Reference Range Comments POC-GLUCOSE METER (BEAKER) 187 mg/dL 70-110 TESTED AT [address] (test hzoq=0985) [place] [id number] C. DIFFICILE GDH [id number] 10:53:00 Test Item Value Reference Range Comments CDT TOXIN (test Negative Negative givb=[id number]) CDT GDH ANTIGEN (test Negative Negative No indication of Clostridium assc=[id number]) difficile infection and no colonization. Discontinue enteric isolation and therapy. Testing performed by [employer] Rapid Cassette Assay. For GDH, published sensitivity of the assay is 98.7% compared to cytotoxicity testing. For Toxin AB, published sensitivity is 87.8% and specificity 99.4% compared to cytotoxicity testing.Verification of kit performance was done by the [facility] Microbiology Lab prior to clinical use.POCT-GLUCOSE [id number] 07:48:00 Test Item Value Reference Range Comments POC-GLUCOSE METER (BEAKER) 191 mg/dL 70-110 TESTED AT [address] (test ngzs=4629) [place] [id number] TSH/FREE T4 IF [id number] 07:01:00 Test Item Value Reference Range Comments THYROID STIMULATING HORMONE (BEAKER) (test 0.79 uIU/mL 0.35-4.94 npny=312) [id number] 06:52:00 Test Item Value Reference Range Comments MAGNESIUM (BEAKER) (test mcjk=589) 2.2 mg/dL 1.6-2.6 BASIC METABOLIC [id number] 06:52:00 Test Item Value Reference Range Comments SODIUM (BEAKER) (test 138 meq/L 136-145 qnxj=600) POTASSIUM (BEAKER) (test 4.0 meq/L 3.5-5.1 iyjl=510) CHLORIDE (BEAKER) (test 103 meq/L 98-107 tmal=481) CO2 (BEAKER) (test 27 meq/L 22-29 itso=887) BLOOD UREA NITROGEN 8 mg/dL 7-21 (BEAKER) (test ybeg=651) CREATININE (BEAKER) (test 0.71 mg/dL 0.57-1.25 iwdl=944) GLUCOSE RANDOM (BEAKER) 207 mg/dL 70-105 (test iaop=580) CALCIUM (BEAKER) (test 8.8 mg/dL 8.4-10.2 zmxx=125) EGFR (BEAKER) (test 111 mL/min/1.73 sq m ESTIMATED GFR IS NOT tmun=0053) ACCURATE CREATININE CLEARANCE IN PREDICTING GLOMERULAR FILTRATION RATE. ESTIMATED GFR IS NOT APPLICABLE FOR DIALYSIS PATIENTS. CBC W/PLT COUNT & AUTO [id number] 05:55:00 Test Item Value Reference Range Comments WHITE BLOOD CELL COUNT (BEAKER) (test abis=010) 6.1 K/ L 3.5-10.5 RED BLOOD CELL COUNT (BEAKER) (test ytgw=025) 4.02 M/ L 4.63-6.08 HEMOGLOBIN (BEAKER) (test cxue=605) 11.9 GM/DL 13.7-17.5 HEMATOCRIT (BEAKER) (test byjg=892) 36.9 % 40.1-51.0 MEAN CORPUSCULAR VOLUME (BEAKER) (test foan=907) 91.8 fL 79.0-92.2 MEAN CORPUSCULAR HEMOGLOBIN (BEAKER) (test 29.6 pg 25.7-32.2 honi=167) MEAN CORPUSCULAR HEMOGLOBIN CONC (BEAKER) (test 32.2 GM/DL 32.3-36.5 ydlw=953) RED CELL DISTRIBUTION WIDTH (BEAKER) (test 13.0 % 11.6-14.4 dzlf=707) PLATELET COUNT (BEAKER) (test jjhz=483) 298 K/CU MM 150-450 MEAN PLATELET VOLUME (BEAKER) (test xkio=897) 8.5 fL 9.4-12.4 NUCLEATED RED BLOOD CELLS (BEAKER) (test 0 /100 WBC 0-0 ednx=597) NEUTROPHILS RELATIVE PERCENT (BEAKER) (test 69 % fyor=281) LYMPHOCYTES RELATIVE PERCENT (BEAKER) (test 22 % qmwt=558) MONOCYTES RELATIVE PERCENT (BEAKER) (test 7 % ewof=293) EOSINOPHILS RELATIVE PERCENT (BEAKER) (test 1 % wicg=482) BASOPHILS RELATIVE PERCENT (BEAKER) (test 0 % yuav=111) NEUTROPHILS ABSOLUTE COUNT (BEAKER) (test 4.23 K/ L 1.78-5.38 cnsc=117) LYMPHOCYTES ABSOLUTE COUNT (BEAKER) (test 1.37 K/ L 1.32-3.57 ihat=929) MONOCYTES ABSOLUTE COUNT (BEAKER) (test 0.42 K/ L 0.30-0.82 lkkq=767) EOSINOPHILS ABSOLUTE COUNT (BEAKER) (test 0.07 K/ L 0.04-0.54 nbgx=073) BASOPHILS ABSOLUTE COUNT (BEAKER) (test 0.02 K/ L 0.01-0.08 cuxy=193) IMMATURE GRANULOCYTES-RELATIVE PERCENT (BEAKER) 0 % 0-1 (test yjto=1495) RAD, CHEST, 1 VIEW, NON [id number] 05:45:00Reason for exam:->SHORTNESS OF BREATHShould this be performed at the bedside?->YesFINAL REPORT RAD, CHEST, 1 VIEW, NON DEPT INDICATION: SHORTNESS OF BREATH COMPARISON: Prior day's exam FINDINGS: Portable frontal view of the chest. IMPRESSION: Lungs and pleura: Unchanged airspace and pleural opacities. No pneumothorax.Heart and mediastinum: Stable contours.Stable surgical changes.Additional findings: None. Signed: Ozzie Avila Verified Date/Time: 04/23/2019 05:45:08 POCT-GLUCOSE [id number] 22:28:00 Test Item Value Reference Range Comments POC-GLUCOSE METER (BEAKER) 241 mg/dL 70-110 TESTED AT [address] (test audk=8015) [facility] [address] [id number] 20:51:00 Test Item Value Reference Range Comments MAGNESIUM (BEAKER) (test mtri=512) 1.8 mg/dL 1.6-2.6 CALCIUM, [id number] 20:38:00 Test Item Value Reference Range Comments CALCIUM IONIZED (BEAKER) (test bfeg=508) 1.08 mmol/L 1.12-1.27 PH, BLOOD (BEAKER) (test eipf=9361) 7.39 POTASSIUM-STAT [id number] 20:37:00 Test Item Value Reference Range Comments POTASSIUM (BEAKER) (test ecsy=102) 3.5 meq/L 3.6-5.5 POCT-GLUCOSE [id number] 18:32:00 Test Item Value Reference Range Comments POC-GLUCOSE METER (BEAKER) 260 mg/dL 70-110 TESTED AT [address] (test xvbb=3228) [place] [id number] POCT-GLUCOSE [id number] 12:42:00 Test Item Value Reference Range Comments POC-GLUCOSE METER (BEAKER) 187 mg/dL 70-110 TESTED AT [address] (test xhqa=4389) [facility] [address] CBC W/PLT COUNT & AUTO [id number] 10:15:00 Test Item Value Reference Range Comments WHITE BLOOD CELL COUNT (BEAKER) (test ioyl=764) 3.7 K/ L 3.5-10.5 RED BLOOD CELL COUNT (BEAKER) (test qgju=485) 3.91 M/ L 4.63-6.08 HEMOGLOBIN (BEAKER) (test lewd=256) 11.6 GM/DL 13.7-17.5 HEMATOCRIT (BEAKER) (test zqxf=337) 35.3 % 40.1-51.0 MEAN CORPUSCULAR VOLUME (BEAKER) (test oday=153) 90.3 fL 79.0-92.2 MEAN CORPUSCULAR HEMOGLOBIN (BEAKER) (test 29.7 pg 25.7-32.2 rxur=663) MEAN CORPUSCULAR HEMOGLOBIN CONC (BEAKER) (test 32.9 GM/DL 32.3-36.5 jlms=948) RED CELL DISTRIBUTION WIDTH (BEAKER) (test 13.1 % 11.6-14.4 dtmn=636) PLATELET COUNT (BEAKER) (test pmei=051) 279 K/CU MM 150-450 MEAN PLATELET VOLUME (BEAKER) (test msbx=987) 8.6 fL 9.4-12.4 NUCLEATED RED BLOOD CELLS (BEAKER) (test 0 /100 WBC 0-0 fwrh=367) (CELLAVISION MANUAL DIFF)2019-04-22 10:15:00 Test Item Value Reference Range Comments NEUTROPHILS - REL (CELLAVISION)(BEAKER) (test 74 % rgzz=9562) LYMPHOCYTES - REL (CELLAVISION)(BEAKER) (test 17 % sihj=4846) MONOCYTES - REL (CELLAVISION)(BEAKER) (test 6 % cina=4816) BASOPHILS - REL (CELLAVISION)(BEAKER) (test 2 % umaz=9519) BANDS - REL (CELLAVISION)(BEAKER) (test zicl=1372) 1 % 0-10 NEUTROPHILS - ABS (CELLAVISION)(BEAKER) (test 2.74 K/ul 1.78-5.38 hefk=9905) LYMPHOCYTES - ABS (CELLAVISION)(BEAKER) (test 0.63 K/ul 1.32-3.57 ahzq=6804) MONOCYTES - ABS (CELLAVISION)(BEAKER) (test 0.22 K/uL 0.30-0.82 nyuh=8073) BASOPHILS - ABS (CELLAVISION)(BEAKER) (test 0.07 K/uL 0.01-0.08 lvtf=3064) BANDS - ABS (CELLAVISION)(BEAKER) (test hafd=3010) 0.04 K/uL 0.00-0.80 TOTAL COUNTED (BEAKER) (test smfe=0104) 100 WBC MORPHOLOGY (BEAKER) (test oybh=098) Normal PLT MORPHOLOGY (BEAKER) (test piqs=855) Normal ANISOCYTOSIS (BEAKER) (test ltmv=903) 1+ few MICROCYTES (BEAKER) (test ygrr=886) 1+ few ARTIFACT (CELLAVISION)(BEAKER) (test zjtb=3748) Present PLATELET CONCENTRATION (CELLAVISION)(BEAKER) (test Adequate ywxd=8680) Received comment: User comments: Slide comments:RAD, CHEST, 1 VIEW, NON [id number] 08:02:00Reason for exam:->SHORTNESS OF BREATHShould this be performed at the bedside?->YesFINAL REPORT CLINICAL HISTORY: SHORTNESS OF BREATH TECHNIQUE: 1 view of the chest. COMPARISON: 04/21/2019 IMPRESSION: The lung volumes are again seen with bibasilar pleural-parenchymal opacities unchanged. The cardiomediastinal silhouette is magnified by technique with sternotomywires. Signed: Yimi Harkins MDReport Verified Date/Time: 04/22 08:02:38 Reading Location: [facility] Radiology Reading Room [id number] 06:04:00 Test Item Value Reference Range Comments MAGNESIUM (BEAKER) (test goic=543) 2.3 mg/dL 1.6-2.6 BASIC METABOLIC [id number] 06:04:00 Test Item Value Reference Range Comments SODIUM (BEAKER) (test 138 meq/L 136-145 kaih=875) POTASSIUM (BEAKER) (test 4.2 meq/L 3.5-5.1 hqlb=891) CHLORIDE (BEAKER) (test 103 meq/L 98-107 lgbv=344) CO2 (BEAKER) (test 29 meq/L 22-29 mynh=451) BLOOD UREA NITROGEN 8 mg/dL 7-21 (BEAKER) (test fjdu=666) CREATININE (BEAKER) (test 0.66 mg/dL 0.57-1.25 iwur=363) GLUCOSE RANDOM (BEAKER) 201 mg/dL 70-105 (test jfwi=920) CALCIUM (BEAKER) (test 8.5 mg/dL 8.4-10.2 srbv=062) EGFR (BEAKER) (test 121 mL/min/1.73 sq m ESTIMATED GFR IS NOT vaov=9733) ACCURATE CREATININE CLEARANCE IN PREDICTING GLOMERULAR FILTRATION RATE. ESTIMATED GFR IS NOT APPLICABLE FOR DIALYSIS PATIENTS. TROPONIN [id number] 06:03:00 Test Item Value Reference Range Comments TROPONIN I (BEAKER) (test wwkm=535) 0.01 ng/mL 0.00-0.03 Troponin I (TnI) levels must [...] acidosis, acute neurological disease, and persistent tachyarrhythmia.CT, EXTREMITY, LOWER WITHOUT CONTRAST, [id number] 04:17:00Extend to ankleFINAL REPORT CLINICAL HISTORY: Lower leg erythema, swelling, cellulitis suspected. Rule out abscess COMPARISON: None. FINDINGS: Multiple axial images of the left lower extremitywere performed from the iliac bone through the foot without IV contrast. Coronal and sagittal reformats were created. This exam was performed according to our departmental dose-optimization program, which includes automated exposure control, adjustment of the mA and/or kV according to patient size and/or use of the iterative reconstruction technique. There is no acute fracture or malalignment. No destructive bony lesion is present. There is soft subcutaneous fat stranding at the lateral left upper leg and throughout the left lower leg, more prominent on the lateral side. There is a subcutaneous fluid collection extending from the proximal tibia adjacent to surgical clips to the distal tibia. It measures 2.2 x 1.8 x 24.0 cm. There is no soft tissue gas. The visualized musculature is unremarkable. The intrinsic soft tissues of the knee are intact. There is no knee joint effusion. There is scattered atherosclerotic calcification in the left lower extremity. Left colonic diverticula are noted. The visualized pelvic viscera are otherwise unremarkable. IMPRESSION: 2.2 x 1.8 x 24.0 cm subcutaneous fluid collection in the medial leg adjacent to surgical clips at the superior margin of the collection.This may reflect a postoperative seroma. Superinfection should be excluded clinically. Nonspecific subcutaneous fat stranding in the lateral greater than medial leg, nonspecific and possibly reflectingedema or cellulitis. There is no soft tissue gas. Signed: Blair Dang MDReport Verified Date/Time: 04/22/2019 04:17:42 Reading Location: [address] Reading Room Electronically signed by: BLAIR DAGN M.D. on 04:17 AMCT, CHEST WITH IV CONTRAST- PE TEST [id number] 04:11: 00With and without contrast per surgical teamFINAL REPORT CLINICAL HISTORY: Chest pain. FINDINGS: Multiple axial images of the chest were performed after the uncomplicated administration of IV contrast, utilizing a pulmonary embolism protocol. Post-processing coronal reformats were created and interpreted. This exam wasperformed according to our departmental dose-optimization program, which includes automated exposurecontrol, adjustment of the mA and/or kV according to patient size and/or use of the iterative reconstruction technique. Study quality:Adequate. Comparison:None. Pulmonary arteries: No pulmonary embolism. Lung parenchyma: Low lung volumes with bibasilar atelectasis, left greater than right Pleural effusion: None. Pneumothorax: None. Tracheobronchial tree: No significant findings. Pulmonary vasculature: No significant findings. Cardiac contours and great vessels: Atherosclerotic calcification of the coronary arteries and aorta. Mediastinum: Small pericardial effusion Lymph Nodes: No adenopathy in themediastinum or edgardo. Prominent left axillary lymph nodes, nonspecific. An example has a short axis diameter of 12 mm. Skeleton: No acute abnormality. Multiple chronic right posterior rib fracture deformities. Previous sternotomy. Limited images of upper abdomen: No significant findings. IMPRESSION: Nopulmonary embolism. Low lung volumes with bibasilar atelectasis versus pneumonitis. Small pericardial effusion. Prominent left axillary lymph nodes, nonspecific. These can be followed up, as indicated. Signed: Blair Dang MDReport Verified Date/Time: 04/22/2019 04:11:13 Reading Location: [address] Reading Room [id number] 00:10:00 Test Item Value Reference Range Comments TROPONIN I (BEAKER) (test sjrw=651) < ng/mL 0.00-0.03 Troponin I (TnI) levels must [...] failure, acidosis, acute neurological disease, and persistent tachyarrhythmia.Check Serum Potassium level 2 hours after oral potassium replacement completed or 30 min after intravenous potassium replacement.[id number] 23:56:00 Test Item Value Reference Range Comments POTASSIUM (BEAKER) (test rwwt=191) 3.9 meq/L 3.5-5.1 Check Serum Potassium level 2 hours after oral potassium replacement completed or 30 min after intravenous potassium replacement.[id number] 23:56:00 Test Item Value Reference Range Comments MAGNESIUM (BEAKER) (test ucpo=467) 1.9 mg/dL 1.6-2.6 Check Serum Potassium level 2 hours after oral potassium replacement completed or 30 min after intravenous potassium replacement.CBC W/PLT COUNT & AUTO [id number] 23:38:00 Test Item Value Reference Range Comments WHITE BLOOD CELL COUNT (BEAKER) (test wejy=660) 4.3 K/ L 3.5-10.5 RED BLOOD CELL COUNT (BEAKER) (test ltnx=020) 3.86 M/ L 4.63-6.08 HEMOGLOBIN (BEAKER) (test deyr=048) 11.6 GM/DL 13.7-17.5 HEMATOCRIT (BEAKER) (test iotx=860) 35.3 % 40.1-51.0 MEAN CORPUSCULAR VOLUME (BEAKER) (test eyyn=003) 91.5 fL 79.0-92.2 MEAN CORPUSCULAR HEMOGLOBIN (BEAKER) (test 30.1 pg 25.7-32.2 vvuq=418) MEAN CORPUSCULAR HEMOGLOBIN CONC (BEAKER) (test 32.9 GM/DL 32.3-36.5 vjxo=302) RED CELL DISTRIBUTION WIDTH (BEAKER) (test 13.0 % 11.6-14.4 myof=745) PLATELET COUNT (BEAKER) (test hfxu=069) 286 K/CU MM 150-450 MEAN PLATELET VOLUME (BEAKER) (test cbwl=526) 8.6 fL 9.4-12.4 NUCLEATED RED BLOOD CELLS (BEAKER) (test 0 /100 WBC 0-0 gglc=370) NEUTROPHILS RELATIVE PERCENT (BEAKER) (test 63 % ussr=470) LYMPHOCYTES RELATIVE PERCENT (BEAKER) (test 25 % nbyo=128) MONOCYTES RELATIVE PERCENT (BEAKER) (test 9 % pqtf=375) EOSINOPHILS RELATIVE PERCENT (BEAKER) (test 3 % rdyp=526) BASOPHILS RELATIVE PERCENT (BEAKER) (test 0 % khsc=763) NEUTROPHILS ABSOLUTE COUNT (BEAKER) (test 2.70 K/ L 1.78-5.38 zixn=918) LYMPHOCYTES ABSOLUTE COUNT (BEAKER) (test 1.05 K/ L 1.32-3.57 imni=238) MONOCYTES ABSOLUTE COUNT (BEAKER) (test 0.40 K/ L 0.30-0.82 qtxe=686) EOSINOPHILS ABSOLUTE COUNT (BEAKER) (test 0.11 K/ L 0.04-0.54 pqyw=677) BASOPHILS ABSOLUTE COUNT (BEAKER) (test 0.01 K/ L 0.01-0.08 xpos=928) IMMATURE GRANULOCYTES-RELATIVE PERCENT (BEAKER) 1 % 0-1 (test lxwd=6993) POCT-GLUCOSE [id number] 22:02:00 Test Item Value Reference Range Comments POC-GLUCOSE METER (BEAKER) 227 mg/dL 70-110 TESTED AT [address] (test smfv=9240) [facility] [id number] 21:03:00 Test Item Value Reference Range Comments D-DIMER QUANTITATIVE (BEAKER) (test bxlj=148) 3.21 MG/L FEU <0.50 Intended Use: The D-Dimer Assay can be used to aid in the diagnosis of Deep Vein Thrombosis (DVT) and Pulmonary Embolism Disease (PED).In patients with low pre-test probability, various studies concerning STA Liatest D-dimer test have reported that with a cutoff value of 0.50 MG/L FEU, the Negative Predictive Value (NPV) regarding the exclusion of thrombosis is within 95-100% range.TROPONIN [id number] 20:59:00 Test Item Value Reference Range Comments TROPONIN I (BEAKER) (test bmrn=849) < ng/mL 0.00-0.03 Troponin I (TnI) levels must [...] failure, acidosis, acute neurological disease, and persistent tachyarrhythmia.HEPATIC FUNCTION [id number] 20:53: 00 Test Item Value Reference Range Comments TOTAL PROTEIN (BEAKER) (test oqgk=543) 6.8 gm/dL 6.0-8.3 ALBUMIN (BEAKER) (test acuz=0118) 3.6 g/dL 3.5-5.0 BILIRUBIN TOTAL (BEAKER) (test here=789) 0.5 mg/dL 0.2-1.2 BILIRUBIN DIRECT (BEAKER) (test ftqz=716) 0.2 mg/dL 0.1-0.5 ALKALINE PHOSPHATASE (BEAKER) (test gjui=480) 99 U/L 40-150 AST (SGOT) (BEAKER) (test dufa=507) 13 U/L 5-34 ALT (SGPT) (BEAKER) (test oqld=125) 10 U/L 6-55 LACTIC ACID, [id number] 20:48:00 Test Item Value Reference Range Comments LACTATE BLOOD VENOUS (2) 1.4 mmol/L 0.5-2.2 Specimen slightly hemolyzed (BEAKER) (test nzci=5267) BLOOD GAS, [id number] 20:17:00 Test Item Value Reference Range Comments PH VENOUS (BEAKER) (test xxev=581) 7.38 7.32-7.42 PCO2 VENOUS (BEAKER) (test uhde=259) 52 mmHg 41-51 PO2 VENOUS (BEAKER) (test zgbn=944) 47 mmHg 25-40 O2 SATURATION VENOUS (BEAKER) (test nyes=389) 80.9 % 40.0-70.0 HCO3 VENOUS (BEAKER) (test ghsd=245) 30 mmol/L 21-29 BASE EXCESS VENOUS (BEAKER) (test ybwn=105) 3.7 mmol/L -2.0-3.0 PATIENT TEMPERATURE (BEAKER) (test kkmu=9454) 37.0 C FIO2 (BEAKER) (test mlny=3669) 100.0 % [id number] 18:36:00 Test Item Value Reference Range Comments PROCALCITONIN (BEAKER) (test gbtu=3651) < ng/mL <0.05 SEPSIS RISK (ng/mL)Low: 0.05-0.50Intermediate: 0.51-2.00High: & gt;=[id number] 18:24:00 Test Item Value Reference Range Comments MAGNESIUM (BEAKER) (test akwr=554) 0.9 mg/dL 1.6-2.6 [id number] 18:17:00 Test Item Value Reference Range Comments PHOSPHORUS (BEAKER) (test vrut=082) 2.5 mg/dL 2.3-4.7 LACTIC ACID, [id number] 18:15:00 Test Item Value Reference Range Comments LACTATE BLOOD VENOUS (2) (BEAKER) (test 2.0 mmol/L 0.5-2.2 eeij=6539) PROTHROMBIN [id number] 18:09:00 Test Item Value Reference Range Comments PROTIME (BEAKER) (test mkud=941) 15.8 seconds 11.9-14.2 INR (BEAKER) (test nmwc=539) 1.3 <=5.9 Effective 03/27/2019: PT Reference Range ChangeNew: 11.9-14.2 Previous: 11.7- 14.7RECOMMENDED COUMADIN/WARFARIN INR THERAPY RANGESSTANDARD DOSE: 2.0-3.0 Includes: PROPHYLAXIS for venous thrombosis, systemic embolization; TREATMENT for venous thrombosis and/or pulmonary embolus.HIGH RISK: Target INR is2.5-3.5 for patients wiht mechanical heart valves.OXYGEN SATURATION, [id number] 18:04:00 Test Item Value Reference Range Comments O2 SATURATION (MEASURED) (BEAKER) (test cupj=2165) 84.9 % If patient has internal jugular ( IJ) or subclavian central line or PICC line. Draw from distal port. Label as central venous oxygen.TROPONIN [id number] 16:28 :00 Test Item Value Reference Range Comments TROPONIN I (BEAKER) (test teuz=595) < ng/mL 0.00-0.03 Troponin I (TnI) levels must [...] failure, acidosis, acute neurological disease, and persistent tachyarrhythmia.POCT-LACTIC ACID, [id number] 16:27 :00 Test Item Value Reference Range Comments POC-LACTIC ACID, VENOUS 3.3 mmol/L 0.9-1.7 TESTED AT [facility] [address] (BEAKER) (test tjlh=8324) [facility] [address] BASIC METABOLIC [id number] 16:19:00 Test Item Value Reference Range Comments SODIUM (BEAKER) (test 134 meq/L 136-145 kteb=553) POTASSIUM (BEAKER) (test 4.5 meq/L 3.5-5.1 Specimen moderately runc=894) hemolyzed CHLORIDE (BEAKER) (test 101 meq/L 98-107 ybmc=438) CO2 (BEAKER) (test 22 meq/L 22-29 tzcs=868) BLOOD UREA NITROGEN 9 mg/dL 7-21 (BEAKER) (test sgio=207) CREATININE (BEAKER) (test 0.75 mg/dL 0.57-1.25 Specimen moderately ovdr=276) hemolyzed GLUCOSE RANDOM (BEAKER) 181 mg/dL 70-105 (test ibej=500) CALCIUM (BEAKER) (test 8.7 mg/dL 8.4-10.2 chgg=595) EGFR (BEAKER) (test 105 mL/min/1.73 sq m ESTIMATED GFR IS NOT vdjs=4840) ACCURATE CREATININE CLEARANCE IN PREDICTING GLOMERULAR FILTRATION RATE. ESTIMATED GFR IS NOT APPLICABLE FOR DIALYSIS PATIENTS. BLOOD GAS, [id number] 16:10:00 Test Item Value Reference Range Comments PH ARTERIAL (BEAKER) (test trwg=228) 7.43 7.35-7.45 PCO2 ARTERIAL (BEAKER) (test wlal=539) 43 mmHg 35-45 PO2 ARTERIAL (BEAKER) (test qybn=085) 141 mmHg 80-90 O2 SATURATION ARTERIAL (BEAKER) (test ugxd=714) 98.9 % 96.0-97.0 HCO3 ARTERIAL (BEAKER) (test xvto=971) 28 mmol/L 21-29 BASE EXCESS ARTERIAL (BEAKER) (test lxat=747) 3.1 mmol/L -2.0-3.0 PATIENT TEMPERATURE (BEAKER) (test hwzu=0445) 36.5 C FIO2 (BEAKER) (test rxrk=2645) 60.0 % RAD, CHEST, 1 VIEW, NON [id number] 16:08:00Reason for exam:->SHORTNESS OF BREATHShould this be performed at the bedside?->YesFINAL REPORT Comparison: 04/07/2019 TECHNIQUE: Single view of the chest FINDINGS: Lung volumes are low. Bibasilar opacities may represent small pleural effusions with adjacent airspace disease. Cardiac silhouette is enlarged. Post surgical changes in the mediastinum. No acute skeletal abnormality. Signed: Shailesh Harding MDReport Verified Date/Time: 04/21/2019 16:08:26 Reading Location: [address] Transitional Reading Room POCT-GLUCOSE [id number] 13:16:00 Test Item Value Reference Range Comments POC-GLUCOSE METER (BEAKER) 231 mg/dL 70-110 TESTED AT [address] (test lait=4376) [place] [id number] POCT-GLUCOSE [id number] 07:07:00 Test Item Value Reference Range Comments POC-GLUCOSE METER (BEAKER) 157 mg/dL 70-110 TESTED AT [address] (test dtyl=4465) [facility] [address] [id number] 05:11:00 Test Item Value Reference Range Comments MAGNESIUM (BEAKER) (test fbcn=944) 2.0 mg/dL 1.6-2.6 BASIC METABOLIC [id number] 05:11:00 Test Item Value Reference Range Comments SODIUM (BEAKER) (test 137 meq/L 136-145 deaj=546) POTASSIUM (BEAKER) (test 3.8 meq/L 3.5-5.1 agbp=282) CHLORIDE (BEAKER) (test 101 meq/L 98-107 gobm=760) CO2 (BEAKER) (test 28 meq/L 22-29 mysx=073) BLOOD UREA NITROGEN 10 mg/dL 7-21 (BEAKER) (test cubt=731) CREATININE (BEAKER) (test 0.66 mg/dL 0.57-1.25 bocn=950) GLUCOSE RANDOM (BEAKER) 164 mg/dL 70-105 (test jwzx=794) CALCIUM (BEAKER) (test 8.6 mg/dL 8.4-10.2 jhek=734) EGFR (BEAKER) (test 121 mL/min/1.73 sq m ESTIMATED GFR IS NOT rfay=7554) ACCURATE CREATININE CLEARANCE IN PREDICTING GLOMERULAR FILTRATION RATE. ESTIMATED GFR IS NOT APPLICABLE FOR DIALYSIS PATIENTS. CBC W/PLT COUNT & AUTO [id number] 04:45:00 Test Item Value Reference Range Comments WHITE BLOOD CELL COUNT (BEAKER) (test tnny=786) 8.5 K/ L 3.5-10.5 RED BLOOD CELL COUNT (BEAKER) (test ybgk=836) 3.52 M/ L 4.63-6.08 HEMOGLOBIN (BEAKER) (test rkdl=095) 10.7 GM/DL 13.7-17.5 HEMATOCRIT (BEAKER) (test mytk=086) 31.9 % 40.1-51.0 MEAN CORPUSCULAR VOLUME (BEAKER) (test ubdb=073) 90.6 fL 79.0-92.2 MEAN CORPUSCULAR HEMOGLOBIN (BEAKER) (test 30.4 pg 25.7-32.2 dfpm=864) MEAN CORPUSCULAR HEMOGLOBIN CONC (BEAKER) (test 33.5 GM/DL 32.3-36.5 vtro=263) RED CELL DISTRIBUTION WIDTH (BEAKER) (test 12.8 % 11.6-14.4 nklh=456) PLATELET COUNT (BEAKER) (test syur=273) 262 K/CU MM 150-450 MEAN PLATELET VOLUME (BEAKER) (test wfnv=208) 8.8 fL 9.4-12.4 NUCLEATED RED BLOOD CELLS (BEAKER) (test 0 /100 WBC 0-0 pmos=351) NEUTROPHILS RELATIVE PERCENT (BEAKER) (test 68 % uthf=438) LYMPHOCYTES RELATIVE PERCENT (BEAKER) (test 19 % aexf=587) MONOCYTES RELATIVE PERCENT (BEAKER) (test 9 % yswy=363) EOSINOPHILS RELATIVE PERCENT (BEAKER) (test 3 % xzkw=772) BASOPHILS RELATIVE PERCENT (BEAKER) (test 0 % tpuv=453) NEUTROPHILS ABSOLUTE COUNT (BEAKER) (test 5.76 K/ L 1.78-5.38 cthw=605) LYMPHOCYTES ABSOLUTE COUNT (BEAKER) (test 1.64 K/ L 1.32-3.57 oeli=837) MONOCYTES ABSOLUTE COUNT (BEAKER) (test 0.73 K/ L 0.30-0.82 tlkv=974) EOSINOPHILS ABSOLUTE COUNT (BEAKER) (test 0.25 K/ L 0.04-0.54 nunm=522) BASOPHILS ABSOLUTE COUNT (BEAKER) (test 0.03 K/ L 0.01-0.08 kevw=939) IMMATURE GRANULOCYTES-RELATIVE PERCENT (BEAKER) 1 % 0-1 (test oalt=3657) POCT-GLUCOSE [id number] 22:03:00 Test Item Value Reference Range Comments POC-GLUCOSE METER (BEAKER) 187 mg/dL 70-110 TESTED AT [address] (test itqu=3566) [place] [id number] POCT-GLUCOSE [id number] 17:09:00 Test Item Value Reference Range Comments POC-GLUCOSE METER (BEAKER) 265 mg/dL 70-110 TESTED AT [address] (test jtky=5087) [place] [id number] LACTIC ACID, [id number] 13:50:00 Test Item Value Reference Range Comments LACTATE BLOOD VENOUS (2) 1.4 mmol/L 0.5-2.2 Specimen slightly hemolyzed (BEAKER) (test znof=1328) [id number] 12:18:00 Test Item Value Reference Range Comments MAGNESIUM (BEAKER) (test vwyi=793) 1.5 mg/dL 1.6-2.6 BASIC METABOLIC [id number] 12:18:00 Test Item Value Reference Range Comments SODIUM (BEAKER) (test 134 meq/L 136-145 lbsm=430) POTASSIUM (BEAKER) (test 3.5 meq/L 3.5-5.1 pejz=416) CHLORIDE (BEAKER) (test 98 meq/L 98-107 ygvl=011) CO2 (BEAKER) (test 26 meq/L 22-29 joie=284) BLOOD UREA NITROGEN 13 mg/dL 7-21 (BEAKER) (test ofbr=360) CREATININE (BEAKER) (test 0.68 mg/dL 0.57-1.25 zkte=891) GLUCOSE RANDOM (BEAKER) 209 mg/dL 70-105 (test xiio=625) CALCIUM (BEAKER) (test 8.5 mg/dL 8.4-10.2 dxfp=314) EGFR (BEAKER) (test 117 mL/min/1.73 sq m ESTIMATED GFR IS NOT wxzv=2672) ACCURATE CREATININE CLEARANCE IN PREDICTING GLOMERULAR FILTRATION RATE. ESTIMATED GFR IS NOT APPLICABLE FOR DIALYSIS PATIENTS. POCT-GLUCOSE [id number] 12:07:00 Test Item Value Reference Range Comments POC-GLUCOSE METER (BEAKER) 222 mg/dL 70-110 TESTED AT [facility] [address] [facility] (test qiya=3332) [facility] [address] CBC W/PLT COUNT & AUTO [id number] 12:02:00 Test Item Value Reference Range Comments WHITE BLOOD CELL COUNT (BEAKER) (test vxew=245) 9.9 K/ L 3.5-10.5 RED BLOOD CELL COUNT (BEAKER) (test gllt=808) 3.65 M/ L 4.63-6.08 HEMOGLOBIN (BEAKER) (test yxwq=342) 11.2 GM/DL 13.7-17.5 HEMATOCRIT (BEAKER) (test twuv=586) 32.5 % 40.1-51.0 MEAN CORPUSCULAR VOLUME (BEAKER) (test zeeb=823) 89.0 fL 79.0-92.2 MEAN CORPUSCULAR HEMOGLOBIN (BEAKER) (test 30.7 pg 25.7-32.2 ctoz=279) MEAN CORPUSCULAR HEMOGLOBIN CONC (BEAKER) (test 34.5 GM/DL 32.3-36.5 crdm=782) RED CELL DISTRIBUTION WIDTH (BEAKER) (test 12.6 % 11.6-14.4 cqil=934) PLATELET COUNT (BEAKER) (test lfxi=979) 304 K/CU MM 150-450 MEAN PLATELET VOLUME (BEAKER) (test qeie=020) 9.1 fL 9.4-12.4 NUCLEATED RED BLOOD CELLS (BEAKER) (test 0 /100 WBC 0-0 gzrj=561) NEUTROPHILS RELATIVE PERCENT (BEAKER) (test 72 % blrd=963) LYMPHOCYTES RELATIVE PERCENT (BEAKER) (test 16 % flnu=458) MONOCYTES RELATIVE PERCENT (BEAKER) (test 8 % rzzp=702) EOSINOPHILS RELATIVE PERCENT (BEAKER) (test 2 % pjuc=055) BASOPHILS RELATIVE PERCENT (BEAKER) (test 1 % xshy=303) NEUTROPHILS ABSOLUTE COUNT (BEAKER) (test 7.14 K/ L 1.78-5.38 iovj=749) LYMPHOCYTES ABSOLUTE COUNT (BEAKER) (test 1.61 K/ L 1.32-3.57 clns=167) MONOCYTES ABSOLUTE COUNT (BEAKER) (test 0.81 K/ L 0.30-0.82 rvqq=499) EOSINOPHILS ABSOLUTE COUNT (BEAKER) (test 0.22 K/ L 0.04-0.54 nqir=586) BASOPHILS ABSOLUTE COUNT (BEAKER) (test 0.05 K/ L 0.01-0.08 cxjw=561) IMMATURE GRANULOCYTES-RELATIVE PERCENT (BEAKER) 1 % 0-1 (test itre=2790) POCT-GLUCOSE [id number] 08:20:00 Test Item Value Reference Range Comments POC-GLUCOSE METER (BEAKER) 186 mg/dL 70-110 TESTED AT [address] (test jdap=9067) [place] [address] POCT-GLUCOSE [id number] 22:28:00 Test Item Value Reference Range Comments POC-GLUCOSE METER (BEAKER) 249 mg/dL 70-110 TESTED AT [address] (test cdpx=2709) [place] [id number] POCT-GLUCOSE [id number] 16:58:00 Test Item Value Reference Range Comments POC-GLUCOSE METER (BEAKER) 246 mg/dL 70-110 TESTED AT [address] (test rykp=0587) [place] [id number] POCT-GLUCOSE [id number] 12:30:00 Test Item Value Reference Range Comments POC-GLUCOSE METER (BEAKER) 228 mg/dL 70-110 TESTED AT [address] (test tdrz=3652) [place] [id number] POCT-GLUCOSE [id number] 08:57:00 Test Item Value Reference Range Comments POC-GLUCOSE METER (BEAKER) 196 mg/dL 70-110 TESTED AT [address] (test jxkh=1227) [place] [id number] 08:00:00 Test Item Value Reference Range Comments MAGNESIUM (BEAKER) (test bhed=550) 1.8 mg/dL 1.6-2.6 BASIC METABOLIC [id number] 08:00:00 Test Item Value Reference Range Comments SODIUM (BEAKER) (test 134 meq/L 136-145 rwpi=338) POTASSIUM (BEAKER) (test 3.5 meq/L 3.5-5.1 tndq=630) CHLORIDE (BEAKER) (test 98 meq/L 98-107 kkoe=835) CO2 (BEAKER) (test 30 meq/L 22-29 myyj=433) BLOOD UREA NITROGEN 15 mg/dL 7-21 (BEAKER) (test mpfh=846) CREATININE (BEAKER) (test 0.66 mg/dL 0.57-1.25 uzcf=898) GLUCOSE RANDOM (BEAKER) 175 mg/dL 70-105 (test nxjb=717) CALCIUM (BEAKER) (test 8.5 mg/dL 8.4-10.2 afhj=606) EGFR (BEAKER) (test 121 mL/min/1.73 sq m ESTIMATED GFR IS NOT gtrv=0173) ACCURATE CREATININE CLEARANCE IN PREDICTING GLOMERULAR FILTRATION RATE. ESTIMATED GFR IS NOT APPLICABLE FOR DIALYSIS PATIENTS. CBC W/PLT COUNT & AUTO [id number] 05:01:00 Test Item Value Reference Range Comments WHITE BLOOD CELL COUNT (BEAKER) (test gyzd=634) 10.7 K/ L 3.5-10.5 RED BLOOD CELL COUNT (BEAKER) (test suhj=127) 3.65 M/ L 4.63-6.08 HEMOGLOBIN (BEAKER) (test nzat=594) 11.0 GM/DL 13.7-17.5 HEMATOCRIT (BEAKER) (test uyct=947) 33.4 % 40.1-51.0 MEAN CORPUSCULAR VOLUME (BEAKER) (test euba=672) 91.5 fL 79.0-92.2 MEAN CORPUSCULAR HEMOGLOBIN (BEAKER) (test 30.1 pg 25.7-32.2 ucua=905) MEAN CORPUSCULAR HEMOGLOBIN CONC (BEAKER) (test 32.9 GM/DL 32.3-36.5 gysl=935) RED CELL DISTRIBUTION WIDTH (BEAKER) (test 12.6 % 11.6-14.4 ugdq=367) PLATELET COUNT (BEAKER) (test zwzi=018) 244 K/CU MM 150-450 MEAN PLATELET VOLUME (BEAKER) (test ebfr=097) 9.5 fL 9.4-12.4 NUCLEATED RED BLOOD CELLS (BEAKER) (test 0 /100 WBC 0-0 nezr=166) NEUTROPHILS RELATIVE PERCENT (BEAKER) (test 70 % lrkp=330) LYMPHOCYTES RELATIVE PERCENT (BEAKER) (test 18 % icqb=914) MONOCYTES RELATIVE PERCENT (BEAKER) (test 9 % ulus=151) EOSINOPHILS RELATIVE PERCENT (BEAKER) (test 3 % prvr=826) BASOPHILS RELATIVE PERCENT (BEAKER) (test 1 % uvzd=783) NEUTROPHILS ABSOLUTE COUNT (BEAKER) (test 7.44 K/ L 1.78-5.38 ofcb=984) LYMPHOCYTES ABSOLUTE COUNT (BEAKER) (test 1.91 K/ L 1.32-3.57 doje=226) MONOCYTES ABSOLUTE COUNT (BEAKER) (test 0.92 K/ L 0.30-0.82 iezr=073) EOSINOPHILS ABSOLUTE COUNT (BEAKER) (test 0.29 K/ L 0.04-0.54 qjcu=128) BASOPHILS ABSOLUTE COUNT (BEAKER) (test 0.06 K/ L 0.01-0.08 rcal=022) IMMATURE GRANULOCYTES-RELATIVE PERCENT (BEAKER) 1 % 0-1 (test locp=8448) POCT-GLUCOSE [id number] 22:17:00 Test Item Value Reference Range Comments POC-GLUCOSE METER (BEAKER) 197 mg/dL 70-110 TESTED AT [address] (test mthu=1789) [place] [address] POCT-GLUCOSE [id number] 17:38:00 Test Item Value Reference Range Comments POC-GLUCOSE METER (BEAKER) 226 mg/dL 70-110 TESTED AT [address] (test npfw=7741) [place] [address] POCT-GLUCOSE [id number] 12:21:00 Test Item Value Reference Range Comments POC-GLUCOSE METER (BEAKER) 194 mg/dL 70-110 TESTED AT [address] (test jqgy=9610) [place] [address] POCT-GLUCOSE [id number] 09:25:00 Test Item Value Reference Range Comments POC-GLUCOSE METER (BEAKER) 169 mg/dL 70-110 TESTED AT [address] (test knkx=8225) [place] [address] BASIC METABOLIC [id number] 06:56:00 Test Item Value Reference Range Comments SODIUM (BEAKER) (test 137 meq/L 136-145 hrya=271) POTASSIUM (BEAKER) (test 3.7 meq/L 3.5-5.1 fczm=313) CHLORIDE (BEAKER) (test 101 meq/L 98-107 ekud=101) CO2 (BEAKER) (test 29 meq/L 22-29 tsus=595) BLOOD UREA NITROGEN 17 mg/dL 7-21 (BEAKER) (test tdyv=639) CREATININE (BEAKER) (test 0.64 mg/dL 0.57-1.25 zyar=738) GLUCOSE RANDOM (BEAKER) 192 mg/dL 70-105 (test xhvm=981) CALCIUM (BEAKER) (test 8.2 mg/dL 8.4-10.2 smjq=273) EGFR (BEAKER) (test 126 mL/min/1.73 sq m ESTIMATED GFR IS NOT hnfc=2965) ACCURATE CREATININE CLEARANCE IN PREDICTING GLOMERULAR FILTRATION RATE. ESTIMATED GFR IS NOT APPLICABLE FOR DIALYSIS PATIENTS. [id number] 06:47:00 Test Item Value Reference Range Comments MAGNESIUM (BEAKER) (test uhdk=477) 2.0 mg/dL 1.6-2.6 CBC W/PLT COUNT & AUTO [id number] 06:17:00 Test Item Value Reference Range Comments WHITE BLOOD CELL COUNT (BEAKER) (test oarl=011) 9.2 K/ L 3.5-10.5 RED BLOOD CELL COUNT (BEAKER) (test wsuy=886) 3.43 M/ L 4.63-6.08 HEMOGLOBIN (BEAKER) (test wsie=486) 10.3 GM/DL 13.7-17.5 HEMATOCRIT (BEAKER) (test obai=546) 31.3 % 40.1-51.0 MEAN CORPUSCULAR VOLUME (BEAKER) (test fpul=393) 91.3 fL 79.0-92.2 MEAN CORPUSCULAR HEMOGLOBIN (BEAKER) (test 30.0 pg 25.7-32.2 cvnk=608) MEAN CORPUSCULAR HEMOGLOBIN CONC (BEAKER) (test 32.9 GM/DL 32.3-36.5 dkkh=108) RED CELL DISTRIBUTION WIDTH (BEAKER) (test 12.9 % 11.6-14.4 pbvu=957) PLATELET COUNT (BEAKER) (test peii=810) 185 K/CU MM 150-450 MEAN PLATELET VOLUME (BEAKER) (test pvpp=391) 9.8 fL 9.4-12.4 NUCLEATED RED BLOOD CELLS (BEAKER) (test 0 /100 WBC 0-0 adkf=610) NEUTROPHILS RELATIVE PERCENT (BEAKER) (test 75 % wkwr=754) LYMPHOCYTES RELATIVE PERCENT (BEAKER) (test 14 % xayu=831) MONOCYTES RELATIVE PERCENT (BEAKER) (test 7 % cont=958) EOSINOPHILS RELATIVE PERCENT (BEAKER) (test 3 % kwaj=806) BASOPHILS RELATIVE PERCENT (BEAKER) (test 0 % xnlh=798) NEUTROPHILS ABSOLUTE COUNT (BEAKER) (test 6.88 K/ L 1.78-5.38 feoo=161) LYMPHOCYTES ABSOLUTE COUNT (BEAKER) (test 1.31 K/ L 1.32-3.57 bmix=912) MONOCYTES ABSOLUTE COUNT (BEAKER) (test 0.67 K/ L 0.30-0.82 eywp=331) EOSINOPHILS ABSOLUTE COUNT (BEAKER) (test 0.28 K/ L 0.04-0.54 fbmq=216) BASOPHILS ABSOLUTE COUNT (BEAKER) (test 0.03 K/ L 0.01-0.08 lrtt=125) IMMATURE GRANULOCYTES-RELATIVE PERCENT (BEAKER) 0 % 0-1 (test kjyr=0934) POCT-GLUCOSE [id number] 21:52:00 Test Item Value Reference Range Comments POC-GLUCOSE METER (BEAKER) 240 mg/dL 70-110 TESTED AT [address] (test ivdq=4157) [place] [id number] POCT-GLUCOSE [id number] 18:12:00 Test Item Value Reference Range Comments POC-GLUCOSE METER (BEAKER) 227 mg/dL 70-110 TESTED AT [address] (test ziyh=9823) [place] [facility] [address] POCT-GLUCOSE [id number] 13:29:00 Test Item Value Reference Range Comments POC-GLUCOSE METER (BEAKER) 222 mg/dL 70-110 TESTED AT [address] (test vsgr=6187) [place] [address] POCT-GLUCOSE [id number] 09:54:00 Test Item Value Reference Range Comments POC-GLUCOSE METER (BEAKER) 192 mg/dL 70-110 TESTED AT [address] (test loyh=9492) [facility] [address] [id number] 07:43:00 Test Item Value Reference Range Comments MAGNESIUM (BEAKER) (test wybc=670) 1.8 mg/dL 1.6-2.6 BASIC METABOLIC [id number] 07:43:00 Test Item Value Reference Range Comments SODIUM (BEAKER) (test 137 meq/L 136-145 gzel=054) POTASSIUM (BEAKER) (test 3.9 meq/L 3.5-5.1 qems=014) CHLORIDE (BEAKER) (test 102 meq/L 98-107 ffqc=072) CO2 (BEAKER) (test 28 meq/L 22-29 rmqf=906) BLOOD UREA NITROGEN 12 mg/dL 7-21 (BEAKER) (test fzxa=691) CREATININE (BEAKER) (test 0.61 mg/dL 0.57-1.25 ptrc=795) GLUCOSE RANDOM (BEAKER) 206 mg/dL 70-105 (test yrbt=166) CALCIUM (BEAKER) (test 8.5 mg/dL 8.4-10.2 xczk=982) EGFR (BEAKER) (test 133 mL/min/1.73 sq m ESTIMATED GFR IS NOT ykla=8507) ACCURATE CREATININE CLEARANCE IN PREDICTING GLOMERULAR FILTRATION RATE. ESTIMATED GFR IS NOT APPLICABLE FOR DIALYSIS PATIENTS. CBC W/PLT COUNT & AUTO [id number] 07:11:00 Test Item Value Reference Range Comments WHITE BLOOD CELL COUNT (BEAKER) (test ibty=921) 11.0 K/ L 3.5-10.5 RED BLOOD CELL COUNT (BEAKER) (test xuwc=190) 3.63 M/ L 4.63-6.08 HEMOGLOBIN (BEAKER) (test erpa=988) 10.8 GM/DL 13.7-17.5 HEMATOCRIT (BEAKER) (test dazc=352) 33.0 % 40.1-51.0 MEAN CORPUSCULAR VOLUME (BEAKER) (test ytbx=870) 90.9 fL 79.0-92.2 MEAN CORPUSCULAR HEMOGLOBIN (BEAKER) (test 29.8 pg 25.7-32.2 wzhj=957) MEAN CORPUSCULAR HEMOGLOBIN CONC (BEAKER) (test 32.7 GM/DL 32.3-36.5 xqne=404) RED CELL DISTRIBUTION WIDTH (BEAKER) (test 13.1 % 11.6-14.4 cvea=125) PLATELET COUNT (BEAKER) (test seih=437) 157 K/CU MM 150-450 MEAN PLATELET VOLUME (BEAKER) (test yyyf=109) 9.7 fL 9.4-12.4 NUCLEATED RED BLOOD CELLS (BEAKER) (test 0 /100 WBC 0-0 lczy=941) NEUTROPHILS RELATIVE PERCENT (BEAKER) (test 82 % wupb=861) LYMPHOCYTES RELATIVE PERCENT (BEAKER) (test 10 % byeb=965) MONOCYTES RELATIVE PERCENT (BEAKER) (test 6 % ocee=126) EOSINOPHILS RELATIVE PERCENT (BEAKER) (test 1 % wfwj=969) BASOPHILS RELATIVE PERCENT (BEAKER) (test 0 % ogmr=523) NEUTROPHILS ABSOLUTE COUNT (BEAKER) (test 8.94 K/ L 1.78-5.38 ovmz=084) LYMPHOCYTES ABSOLUTE COUNT (BEAKER) (test 1.14 K/ L 1.32-3.57 hvvk=783) MONOCYTES ABSOLUTE COUNT (BEAKER) (test 0.68 K/ L 0.30-0.82 ojhm=709) EOSINOPHILS ABSOLUTE COUNT (BEAKER) (test 0.12 K/ L 0.04-0.54 sxau=975) BASOPHILS ABSOLUTE COUNT (BEAKER) (test 0.03 K/ L 0.01-0.08 dkgz=835) IMMATURE GRANULOCYTES-RELATIVE PERCENT (BEAKER) 1 % 0-1 (test cqca=4037) RAD, CHEST, 1 VIEW, NON [id number] 04:26:00Reason for exam:->post opShould this be performed at the bedside?->YesFINAL REPORT Chest one view. Clinical history: post op Comparison: Chest radiograph 04/06/2019. Technique: A single frontal view of the chest was obtained. Findings: The patient is status post median sternotomy.There has been interval removal of right IJ central venous catheter and mediastinal drain. There is a left chest tube with tip in the left lung base.The cardiomediastinal contours are stable. There are low lung volumes. There are bibasilar opacities which may represent subsegmental and discoid atelectasis. There is no pneumothorax. There is no definite pleural effusion. Signed: Brianda Alvarezeport Verified Date/Time: 04/07/2019 04:26:24 Reading Location: [address] Reading Room POCT-GLUCOSE [id number] 23:13:00 Test Item Value Reference Range Comments POC-GLUCOSE METER (BEAKER) 219 mg/dL 70-110 TESTED AT [address] (test ytgd=7497) [facility] [id number] 16:51:00 Test Item Value Reference Range Comments MAGNESIUM (BEAKER) (test 1.9 mg/dL 1.6-2.6 Specimen slightly hemolyzed opoc=369) Check Serum Magnesium level 2 hours after IV magnesium replacement.PRN - repeat potassium levels every 1 hour until glucose level is less than 450 mg/ [id number] 16:51:00 Test Item Value Reference Range Comments POTASSIUM (BEAKER) (test 3.6 meq/L 3.5-5.1 Specimen slightly hemolyzed mpoa=360) Check Serum Magnesium level 2 hours after IV magnesium replacement.PRN - repeat potassium levels every 1 hour until glucose level is less than 450 mg/dLLACTIC ACID, [id number] 15:41:00 Test Item Value Reference Range Comments LACTATE BLOOD ARTERIAL (2) 1.7 mmol/L 0.5-2.2 Specimen slightly hemolyzed (BEAKER) (test kmaz=6417) POCT-GLUCOSE [id number] 15:30:00 Test Item Value Reference Range Comments POC-GLUCOSE METER (BEAKER) 200 mg/dL 70-110 TESTED AT [address] (test tfed=8757) [facility] [id number] POCT-GLUCOSE [id number] 07:58:00 Test Item Value Reference Range Comments POC-GLUCOSE METER (BEAKER) 179 mg/dL 70-110 TESTED AT [address] (test titj=3330) [place] [id number] POCT-GLUCOSE [id number] 07:32:00 Test Item Value Reference Range Comments POC-GLUCOSE METER (BEAKER) 196 mg/dL 70-110 TESTED AT [address] (test fixq=5575) [place] [id number] RAD, CHEST, 1 VIEW, NON [id number] 04:52:00Reason for exam:->post opShould this be performed at the bedside?->YesFINAL REPORT RAD, CHEST, 1 VIEW, NON DEPT INDICATION: post op COMPARISON: Prior day' s exam FINDINGS: Portable frontal view of the chest. IMPRESSION: Support Lines: Interval extubation and removal of the previously seen enteric tube. Otherwise unchanged support apparatus. Lungs and pleura: Unchanged airspace and pleural opacities. Trace left apical pneumothorax.Heart and mediastinum: Stable contours. Stable surgical changes.Additional findings: None. Signed: Ozzie Avilaeport Verified Date/Time: 04/06/2019 04:52:11 [id number] 04:06:00 Test Item Value Reference Range Comments PHOSPHORUS (BEAKER) (test njsu=857) 3.4 mg/dL 2.3-4.7 [id number] 04:06:00 Test Item Value Reference Range Comments MAGNESIUM (BEAKER) (test visj=731) 1.6 mg/dL 1.6-2.6 BASIC METABOLIC [id number] 04:06:00 Test Item Value Reference Range Comments SODIUM (BEAKER) (test 144 meq/L 136-145 gzco=780) POTASSIUM (BEAKER) (test 3.4 meq/L 3.5-5.1 mcag=341) CHLORIDE (BEAKER) (test 108 meq/L 98-107 efgz=330) CO2 (BEAKER) (test 26 meq/L 22-29 mdpv=804) BLOOD UREA NITROGEN 10 mg/dL 7-21 (BEAKER) (test fmec=503) CREATININE (BEAKER) (test 0.63 mg/dL 0.57-1.25 bwnp=810) GLUCOSE RANDOM (BEAKER) 189 mg/dL 70-105 (test puvo=769) CALCIUM (BEAKER) (test 8.9 mg/dL 8.4-10.2 einw=009) EGFR (BEAKER) (test 128 mL/min/1.73 sq m ESTIMATED GFR IS NOT jmin=2102) ACCURATE CREATININE CLEARANCE IN PREDICTING GLOMERULAR FILTRATION RATE. ESTIMATED GFR IS NOT APPLICABLE FOR DIALYSIS PATIENTS. BLOOD GAS, [id number] 03:49:00 Test Item Value Reference Range Comments PH ARTERIAL (BEAKER) (test shjr=529) 7.46 7.35-7.45 PCO2 ARTERIAL (BEAKER) (test roub=325) 40 mmHg 35-45 PO2 ARTERIAL (BEAKER) (test qdio=623) 64 mmHg 80-90 O2 SATURATION ARTERIAL (BEAKER) (test tbvg=922) 93.2 % 96.0-97.0 HCO3 ARTERIAL (BEAKER) (test yapl=167) 27 mmol/L 21-29 BASE EXCESS ARTERIAL (BEAKER) (test bmpm=101) 3.2 mmol/L -2.0-3.0 PATIENT TEMPERATURE (BEAKER) (test hmhj=4244) 37.3 C FIO2 (BEAKER) (test fmmc=7145) 28.0 % CBC W/PLT COUNT & AUTO [id number] 03:29:00 Test Item Value Reference Range Comments WHITE BLOOD CELL COUNT (BEAKER) (test xlcx=641) 11.5 K/ L 3.5-10.5 RED BLOOD CELL COUNT (BEAKER) (test frdy=699) 3.68 M/ L 4.63-6.08 HEMOGLOBIN (BEAKER) (test mpvv=820) 11.1 GM/DL 13.7-17.5 HEMATOCRIT (BEAKER) (test ocan=962) 32.7 % 40.1-51.0 MEAN CORPUSCULAR VOLUME (BEAKER) (test nqgg=494) 88.9 fL 79.0-92.2 MEAN CORPUSCULAR HEMOGLOBIN (BEAKER) (test 30.2 pg 25.7-32.2 ehbu=386) MEAN CORPUSCULAR HEMOGLOBIN CONC (BEAKER) (test 33.9 GM/DL 32.3-36.5 pxem=893) RED CELL DISTRIBUTION WIDTH (BEAKER) (test 13.9 % 11.6-14.4 chre=224) PLATELET COUNT (BEAKER) (test grxy=371) 146 K/CU MM 150-450 MEAN PLATELET VOLUME (BEAKER) (test vgfy=773) 9.6 fL 9.4-12.4 NUCLEATED RED BLOOD CELLS (BEAKER) (test 0 /100 WBC 0-0 hwmc=818) NEUTROPHILS RELATIVE PERCENT (BEAKER) (test 81 % rxzm=357) LYMPHOCYTES RELATIVE PERCENT (BEAKER) (test 11 % cjat=202) MONOCYTES RELATIVE PERCENT (BEAKER) (test 7 % kolh=322) EOSINOPHILS RELATIVE PERCENT (BEAKER) (test 0 % gzmu=809) BASOPHILS RELATIVE PERCENT (BEAKER) (test 0 % vuwq=983) NEUTROPHILS ABSOLUTE COUNT (BEAKER) (test 9.31 K/ L 1.78-5.38 fwsa=969) LYMPHOCYTES ABSOLUTE COUNT (BEAKER) (test 1.30 K/ L 1.32-3.57 prap=729) MONOCYTES ABSOLUTE COUNT (BEAKER) (test 0.80 K/ L 0.30-0.82 dkqv=747) EOSINOPHILS ABSOLUTE COUNT (BEAKER) (test 0.01 K/ L 0.04-0.54 swlb=330) BASOPHILS ABSOLUTE COUNT (BEAKER) (test 0.03 K/ L 0.01-0.08 aayx=376) IMMATURE GRANULOCYTES-RELATIVE PERCENT (BEAKER) 0 % 0-1 (test kaow=7206) POCT-GLUCOSE [id number] 17:09:00 Test Item Value Reference Range Comments POC-GLUCOSE METER (BEAKER) 189 mg/dL 70-110 TESTED AT [address] (test yrtg=7996) [place] [address] PLATELET AGGREGATION: FUNCTION [id number] 14:45:00 Test Item Value Reference Range Comments WEAK ADP RESULT(BEAKER) (test 60 % 60-91 apgd=9008) PLATELET FUNCTION SCREEN 60-100% indicates normal INTERP (BEAKER) (test platelet function fdye=1226) KUCI-NUFBZGKXULT-0122 (BEAKER) Attila Vasquez M.D. (electonic (test kium=1833) signature) PLATELET COUNT AGG (BEAKER) 259 K/CU MM 150-450 (test hfzu=8523) Platelet Function Screen results may be falsely low with platelet counts<100, 000/cu mm.POCT-GLUCOSE [id number] 12:26:00 Test Item Value Reference Range Comments POC-GLUCOSE METER (BEAKER) 241 mg/dL 70-110 TESTED AT [address] (test nbyi=6679) [place] [id number] POCT-GLUCOSE [id number] 12:26:00 Test Item Value Reference Range Comments POC-GLUCOSE METER (BEAKER) 122 mg/dL 70-110 TESTED AT [address] (test srun=9048) [place] [address] POCT-GLUCOSE [id number] 12:26:00 Test Item Value Reference Range Comments POC-GLUCOSE METER (BEAKER) 125 mg/dL 70-110 TESTED AT [address] (test vuum=3290) [place] [address] POCT-GLUCOSE [id number] 12:25:00 Test Item Value Reference Range Comments POC-GLUCOSE METER (BEAKER) 128 mg/dL 70-110 TESTED AT [address] (test maif=2687) [place] [id number] POCT-GLUCOSE [id number] 12:25:00 Test Item Value Reference Range Comments POC-GLUCOSE METER (BEAKER) 143 mg/dL 70-110 TESTED AT [address] (test mtyj=6817) [place] [id number] BLOOD GAS, [id number] 08:23:00 Test Item Value Reference Range Comments PH ARTERIAL (BEAKER) (test wlkc=659) 7.45 7.35-7.45 PCO2 ARTERIAL (BEAKER) (test wudm=757) 40 mmHg 35-45 PO2 ARTERIAL (BEAKER) (test jdtm=097) 82 mmHg 80-90 O2 SATURATION ARTERIAL (BEAKER) (test okjp=740) 96.1 % 96.0-97.0 HCO3 ARTERIAL (BEAKER) (test cbve=822) 27 mmol/L 21-29 BASE EXCESS ARTERIAL (BEAKER) (test dqih=154) 2.8 mmol/L -2.0-3.0 PATIENT TEMPERATURE (BEAKER) (test krbl=3198) 37.8 C FIO2 (BEAKER) (test weua=5759) 40.0 % POCT-GLUCOSE [id number] 06:30:00 Test Item Value Reference Range Comments POC-GLUCOSE METER (BEAKER) 159 mg/dL 70-110 TESTED AT [address] (test zcex=4613) [place] [address] POCT-GLUCOSE [id number] 06:22:00 Test Item Value Reference Range Comments POC-GLUCOSE METER (BEAKER) 173 mg/dL 70-110 TESTED AT [address] (test ybhe=8517) [place] [address] POCT-GLUCOSE [id number] 06:22:00 Test Item Value Reference Range Comments POC-GLUCOSE METER (BEAKER) 190 mg/dL 70-110 TESTED AT [facility] [address] [facility] (test cwdz=9814) [place] [address] POCT-GLUCOSE [id number] 06:22:00 Test Item Value Reference Range Comments POC-GLUCOSE METER (BEAKER) 189 mg/dL 70-110 TESTED AT [facility] [address] [facility] (test sxzi=8007) [place] [address] RAD, CHEST, 1 VIEW, NON [id number] 04:17:00while patient is intubated or has chest tubes.Reason for exam:->Status post CV SurgeryShould thisbe performed at the bedside?->YesFINAL REPORT RAD, CHEST , 1 VIEW, NON DEPT INDICATION: Status post CV Surgery COMPARISON: Prior day's exam FINDINGS: Portable frontal view of the chest. IMPRESSION: Support Lines : Stable. Lungs and pleura: Unchanged airspace and pleural opacities. No pneumothorax.Heart and mediastinum: Stable contours. Stable surgical changes.Additional findings: None. Signed: Ozzie Avilaumair Verified Date/Time: 04/05/2019 04:17:27 [id number] 04:04:00 Test Item Value Reference Range Comments PHOSPHORUS (BEAKER) (test kvce=009) 2.1 mg/dL 2.3-4.7 [id number] 04:04:00 Test Item Value Reference Range Comments MAGNESIUM (BEAKER) (test swvx=663) 1.8 mg/dL 1.6-2.6 BASIC METABOLIC [id number] 04:04:00 Test Item Value Reference Range Comments SODIUM (BEAKER) (test 145 meq/L 136-145 fslm=826) POTASSIUM (BEAKER) (test 4.0 meq/L 3.5-5.1 hdjg=201) CHLORIDE (BEAKER) (test 113 meq/L 98-107 ipuh=671) CO2 (BEAKER) (test 25 meq/L 22-29 prfl=889) BLOOD UREA NITROGEN 14 mg/dL 7-21 (BEAKER) (test kbto=006) CREATININE (BEAKER) (test 0.73 mg/dL 0.57-1.25 eqeu=981) GLUCOSE RANDOM (BEAKER) 171 mg/dL 70-105 (test iokj=814) CALCIUM (BEAKER) (test 9.5 mg/dL 8.4-10.2 wkzo=497) EGFR (BEAKER) (test 108 mL/min/1.73 sq m ESTIMATED GFR IS NOT ixtj=8871) ACCURATE CREATININE CLEARANCE IN PREDICTING GLOMERULAR FILTRATION RATE. ESTIMATED GFR IS NOT APPLICABLE FOR DIALYSIS PATIENTS. LACTIC ACID, [id number] 04:03:00 Test Item Value Reference Range Comments LACTATE BLOOD ARTERIAL (2) (BEAKER) (test 1.0 mmol/L 0.5-2.2 ddhk=5150) CALCIUM, [id number] 03:35:00 Test Item Value Reference Range Comments CALCIUM IONIZED (BEAKER) (test hydz=354) 1.25 mmol/L 1.12-1.27 PH, BLOOD (BEAKER) (test vvqf=6435) 7.49 BLOOD GAS, [id number] 03:33:00 Test Item Value Reference Range Comments PH ARTERIAL (BEAKER) (test cqei=015) 7.47 7.35-7.45 PCO2 ARTERIAL (BEAKER) (test lapm=360) 35 mmHg 35-45 PO2 ARTERIAL (BEAKER) (test sjjo=011) 91 mmHg 80-90 O2 SATURATION ARTERIAL (BEAKER) (test ipiw=271) 97.1 % 96.0-97.0 HCO3 ARTERIAL (BEAKER) (test kbay=729) 25 mmol/L 21-29 BASE EXCESS ARTERIAL (BEAKER) (test sgac=168) 1.8 mmol/L -2.0-3.0 PATIENT TEMPERATURE (BEAKER) (test jdlh=6727) 38.1 C FIO2 (BEAKER) (test lafu=3004) 40.0 % CBC W/PLT COUNT & AUTO [id number] 03:31:00 Test Item Value Reference Range Comments WHITE BLOOD CELL COUNT (BEAKER) (test bflw=107) 10.6 K/ L 3.5-10.5 RED BLOOD CELL COUNT (BEAKER) (test kiuu=321) 4.00 M/ L 4.63-6.08 HEMOGLOBIN (BEAKER) (test qngp=726) 12.1 GM/DL 13.7-17.5 HEMATOCRIT (BEAKER) (test vfnr=007) 35.2 % 40.1-51.0 MEAN CORPUSCULAR VOLUME (BEAKER) (test onki=158) 88.0 fL 79.0-92.2 MEAN CORPUSCULAR HEMOGLOBIN (BEAKER) (test 30.3 pg 25.7-32.2 ashp=191) MEAN CORPUSCULAR HEMOGLOBIN CONC (BEAKER) (test 34.4 GM/DL 32.3-36.5 cavy=136) RED CELL DISTRIBUTION WIDTH (BEAKER) (test 13.8 % 11.6-14.4 nbxg=700) PLATELET COUNT (BEAKER) (test lvda=058) 184 K/CU MM 150-450 MEAN PLATELET VOLUME (BEAKER) (test unpi=725) 9.4 fL 9.4-12.4 NUCLEATED RED BLOOD CELLS (BEAKER) (test 0 /100 WBC 0-0 olkg=878) NEUTROPHILS RELATIVE PERCENT (BEAKER) (test 83 % eshk=698) LYMPHOCYTES RELATIVE PERCENT (BEAKER) (test 9 % tygd=259) MONOCYTES RELATIVE PERCENT (BEAKER) (test 7 % ltbp=124) EOSINOPHILS RELATIVE PERCENT (BEAKER) (test 0 % hpsn=609) BASOPHILS RELATIVE PERCENT (BEAKER) (test 0 % twcl=627) NEUTROPHILS ABSOLUTE COUNT (BEAKER) (test 8.85 K/ L 1.78-5.38 vszz=347) LYMPHOCYTES ABSOLUTE COUNT (BEAKER) (test 0.92 K/ L 1.32-3.57 nufk=868) MONOCYTES ABSOLUTE COUNT (BEAKER) (test 0.78 K/ L 0.30-0.82 hbhg=995) EOSINOPHILS ABSOLUTE COUNT (BEAKER) (test 0.01 K/ L 0.04-0.54 nsrn=604) BASOPHILS ABSOLUTE COUNT (BEAKER) (test 0.03 K/ L 0.01-0.08 mdrs=414) IMMATURE GRANULOCYTES-RELATIVE PERCENT (BEAKER) 1 % 0-1 (test vfhn=6487) [id number] 01:22:00 Test Item Value Reference Range Comments MAGNESIUM (BEAKER) (test ehri=374) 2.2 mg/dL 1.6-2.6 BASIC METABOLIC [id number] 01:22:00 Test Item Value Reference Range Comments SODIUM (BEAKER) (test 146 meq/L 136-145 tpqb=072) POTASSIUM (BEAKER) (test 4.3 meq/L 3.5-5.1 ousa=438) CHLORIDE (BEAKER) (test 113 meq/L 98-107 aool=852) CO2 (BEAKER) (test 24 meq/L 22-29 shpb=202) BLOOD UREA NITROGEN 15 mg/dL 7-21 (BEAKER) (test wkoz=211) CREATININE (BEAKER) (test 0.73 mg/dL 0.57-1.25 jxcf=676) GLUCOSE RANDOM (BEAKER) 188 mg/dL 70-105 (test taky=367) CALCIUM (BEAKER) (test 9.9 mg/dL 8.4-10.2 qier=244) EGFR (BEAKER) (test 108 mL/min/1.73 sq m ESTIMATED GFR IS NOT rzsr=7965) ACCURATE CREATININE CLEARANCE IN PREDICTING GLOMERULAR FILTRATION RATE. ESTIMATED GFR IS NOT APPLICABLE FOR DIALYSIS PATIENTS. LACTIC ACID, [id number] 01:20:00 Test Item Value Reference Range Comments LACTATE BLOOD ARTERIAL (2) 1.1 mmol/L 0.5-2.2 Specimen slightly hemolyzed (BEAKER) (test zklw=9185) CBC W/PLT COUNT & AUTO [id number] 01:06:00 Test Item Value Reference Range Comments WHITE BLOOD CELL COUNT (BEAKER) (test adyi=583) 11.8 K/ L 3.5-10.5 RED BLOOD CELL COUNT (BEAKER) (test xqgl=676) 3.98 M/ L 4.63-6.08 HEMOGLOBIN (BEAKER) (test zaek=949) 12.1 GM/DL 13.7-17.5 HEMATOCRIT (BEAKER) (test ndqw=486) 34.8 % 40.1-51.0 MEAN CORPUSCULAR VOLUME (BEAKER) (test qdgm=221) 87.4 fL 79.0-92.2 MEAN CORPUSCULAR HEMOGLOBIN (BEAKER) (test 30.4 pg 25.7-32.2 eecz=624) MEAN CORPUSCULAR HEMOGLOBIN CONC (BEAKER) (test 34.8 GM/DL 32.3-36.5 qzjs=908) RED CELL DISTRIBUTION WIDTH (BEAKER) (test 13.6 % 11.6-14.4 usgc=586) PLATELET COUNT (BEAKER) (test bxge=239) 172 K/CU MM 150-450 MEAN PLATELET VOLUME (BEAKER) (test ctmz=585) 9.4 fL 9.4-12.4 NUCLEATED RED BLOOD CELLS (BEAKER) (test 0 /100 WBC 0-0 uygj=908) NEUTROPHILS RELATIVE PERCENT (BEAKER) (test 85 % shni=392) LYMPHOCYTES RELATIVE PERCENT (BEAKER) (test 7 % hbxo=955) MONOCYTES RELATIVE PERCENT (BEAKER) (test 8 % aben=375) EOSINOPHILS RELATIVE PERCENT (BEAKER) (test 0 % audc=773) BASOPHILS RELATIVE PERCENT (BEAKER) (test 0 % nlev=837) NEUTROPHILS ABSOLUTE COUNT (BEAKER) (test 9.96 K/ L 1.78-5.38 dhuf=590) LYMPHOCYTES ABSOLUTE COUNT (BEAKER) (test 0.81 K/ L 1.32-3.57 tbth=587) MONOCYTES ABSOLUTE COUNT (BEAKER) (test 0.89 K/ L 0.30-0.82 buyy=546) EOSINOPHILS ABSOLUTE COUNT (BEAKER) (test 0.01 K/ L 0.04-0.54 xatv=261) BASOPHILS ABSOLUTE COUNT (BEAKER) (test 0.03 K/ L 0.01-0.08 ljgu=443) IMMATURE GRANULOCYTES-RELATIVE PERCENT (BEAKER) 1 % 0-1 (test vqpj=0856) BLOOD GAS, [id number] 00:53:00 Test Item Value Reference Range Comments PH ARTERIAL (BEAKER) (test vwvv=601) 7.45 7.35-7.45 PCO2 ARTERIAL (BEAKER) (test ywic=507) 38 mmHg 35-45 PO2 ARTERIAL (BEAKER) (test wsoi=417) 108 mmHg 80-90 O2 SATURATION ARTERIAL (BEAKER) (test alxd=805) 98.0 % 96.0-97.0 HCO3 ARTERIAL (BEAKER) (test efhg=872) 26 mmol/L 21-29 BASE EXCESS ARTERIAL (BEAKER) (test ozwa=661) 2.2 mmol/L -2.0-3.0 PATIENT TEMPERATURE (BEAKER) (test jalm=4791) 38.1 C FIO2 (BEAKER) (test qfsf=1261) 60.0 % CALCIUM, [id number] 00:53:00 Test Item Value Reference Range Comments CALCIUM IONIZED (BEAKER) (test aonh=523) 1.29 mmol/L 1.12-1.27 PH, BLOOD (BEAKER) (test nvbp=5610) 7.47 POCT-GLUCOSE [id number] 23:39:00 Test Item Value Reference Range Comments POC-GLUCOSE METER (BEAKER) 192 mg/dL 70-110 TESTED AT [address] (test vqmu=4840) [place] [address] POCT-GLUCOSE [id number] 23:39:00 Test Item Value Reference Range Comments POC-GLUCOSE METER (BEAKER) 197 mg/dL 70-110 TESTED AT [address] (test mlso=7658) [place] [id number] POCT-GLUCOSE [id number] 23:39:00 Test Item Value Reference Range Comments POC-GLUCOSE METER (BEAKER) 185 mg/dL 70-110 TESTED AT [address] (test ughe=2303) [place] [id number] BLOOD GAS, [id number] 20:52:00 Test Item Value Reference Range Comments PH ARTERIAL (BEAKER) (test mavn=192) 7.46 7.35-7.45 PCO2 ARTERIAL (BEAKER) (test ykdc=397) 38 mmHg 35-45 PO2 ARTERIAL (BEAKER) (test ynbl=564) 233 mmHg 80-90 O2 SATURATION ARTERIAL (BEAKER) (test dqzz=092) 99.6 % 96.0-97.0 HCO3 ARTERIAL (BEAKER) (test lwmz=007) 26 mmol/L 21-29 BASE EXCESS ARTERIAL (BEAKER) (test fnnr=077) 2.1 mmol/L -2.0-3.0 PATIENT TEMPERATURE (BEAKER) (test mfuj=6135) 37.1 C FIO2 (BEAKER) (test swoq=3740) 80.0 % THROMBOELASTOGRAPH (TEG)2019-04-04 20:05:00 Test Item Value Reference Range Comments TEG ACTIVATED CLOTTING TIME (BEAKER) (test 6.6 minutes 4.0-7.0 qklo=5867) TEG FIBRINOGEN ACTIVITY (BEAKER) (test 69.0 degrees 61.0-73.0 zjnl=7949) TEG PLT. AGGREGATION (BEAKER) (test oxiq=6949) 65.0 MM 55.0-65.0 TEG FIBRINOLYSIS (BEAKER) (test neoo=3404) 0.0 % 0.0-5.0 TGH ACTIVATED CLOTTING TIME (BEAKER) (test 7.0 minutes 4.0-7.0 tjdt=4516) TGH FIBRINOGEN ACTIVITY (BEAKER) (test 65.7 degrees 61.0-73.0 rjcl=6785) TGH PLT. AGGREGATION (BEAKER) (test pqla=9197) 63.2 MM 55.0-65.0 TGH FIBRINOLYSIS (BEAKER) (test ykoc=4299) 0.0 % 0.0-5.0 RAD, CHEST, 1 VIEW, NON [id number] 19:07:00Reason for exam:->Status post CV Surgery post op day 0Should this be performed at the bedside?->YesFINAL REPORT INDICATION: Status post CV Surgery post op day 0 COMPARISON: October 05, 2018 TECHNIQUE: Single frontal view of the chest. FINDINGS: Lungs and pleura: Atelectasis within the right lower lung. Low lung volumes.Heart and mediastinum: Normal heart size. Unremarkable mediastinal contours.Osseous structures: No acute abnormality.Other: Right IJ catheter tip overlies theSVC. ET tube is 2 cm superior to the alycia. Left-sided chest tube and mediastinal drain are present. NG tube descends below the diaphragm. IMPRESSION: Lines and tubes as per above. No evidence of malpositioning. Signed : Mayur Flores MDReport Verified Date/Time: 04/04/2019 19:07:57 Reading Location: [facility] Radiology Reading Room BASI METABOLIC [id number] 18: 47:00 Test Item Value Reference Range Comments SODIUM (BEAKER) (test 149 meq/L 136-145 daxk=268) POTASSIUM (BEAKER) (test 3.8 meq/L 3.5-5.1 Specimen slightly ycvs=331) hemolyzed CHLORIDE (BEAKER) (test 112 meq/L 98-107 btxa=710) CO2 (BEAKER) (test 25 meq/L 22-29 siad=409) BLOOD UREA NITROGEN 16 mg/dL 7-21 (BEAKER) (test iqnd=525) CREATININE (BEAKER) (test 0.67 mg/dL 0.57-1.25 Specimen slightly kxds=150) hemolyzed GLUCOSE RANDOM (BEAKER) 236 mg/dL 70-105 (test adel=427) CALCIUM (BEAKER) (test 11.1 mg/dL 8.4-10.2 zyew=133) EGFR (BEAKER) (test 119 mL/min/1.73 sq m ESTIMATED GFR IS NOT iyzj=6409) ACCURATE CREATININE CLEARANCE IN PREDICTING GLOMERULAR FILTRATION RATE. ESTIMATED GFR IS NOT APPLICABLE FOR DIALYSIS PATIENTS. [id number] 18:46:00 Test Item Value Reference Range Comments MAGNESIUM (BEAKER) (test 1.9 mg/dL 1.6-2.6 Specimen slightly hemolyzed vsra=669) [id number] 18:46:00 Test Item Value Reference Range Comments PHOSPHORUS (BEAKER) (test 4.2 mg/dL 2.3-4.7 Specimen slightly hemolyzed swdd=129) LACTIC ACID, [id number] 18:43:00 Test Item Value Reference Range Comments LACTATE BLOOD ARTERIAL (2) 2.0 mmol/L 0.5-2.2 Specimen slightly hemolyzed (BEAKER) (test ymsb=3873) [id number] 18:36:00 Test Item Value Reference Range Comments FIBRINOGEN LEVEL (BEAKER) (test qfol=487) 329 mg/dl 225-434 [id number] 18:36:00 Test Item Value Reference Range Comments PARTIAL THROMBOPLASTIN TIME (BEAKER) (test 35.0 seconds 22.5-36.0 vqzc=718) PROTHROMBIN [id number] 18:35:00 Test Item Value Reference Range Comments PROTIME (BEAKER) (test bemu=220) 16.7 seconds 11.9-14.2 INR (BEAKER) (test ssrm=215) 1.4 <=5.9 Effective 03/27/2019: PT Reference Range ChangeNew: 11.9-14.2 Previous: 11.7- 14.7RECOMMENDED COUMADIN/WARFARIN INR THERAPY RANGESSTANDARD DOSE: 2.0-3.0 Includes: PROPHYLAXIS for venous thrombosis, systemic embolization; TREATMENT for venous thrombosis and/or pulmonary embolus.HIGH RISK: Target INR is2.5-3.5 for patients wiht mechanical heart valves.CBC W/PLT COUNT & AUTO [id number] 18:27:00 Test Item Value Reference Range Comments WHITE BLOOD CELL COUNT (BEAKER) (test rznb=284) 10.4 K/ L 3.5-10.5 RED BLOOD CELL COUNT (BEAKER) (test vbal=393) 4.17 M/ L 4.63-6.08 HEMOGLOBIN (BEAKER) (test lzxa=635) 12.7 GM/DL 13.7-17.5 HEMATOCRIT (BEAKER) (test rxkl=913) 37.4 % 40.1-51.0 MEAN CORPUSCULAR VOLUME (BEAKER) (test khcu=180) 89.7 fL 79.0-92.2 MEAN CORPUSCULAR HEMOGLOBIN (BEAKER) (test 30.5 pg 25.7-32.2 dhmh=216) MEAN CORPUSCULAR HEMOGLOBIN CONC (BEAKER) (test 34.0 GM/DL 32.3-36.5 jzxw=813) RED CELL DISTRIBUTION WIDTH (BEAKER) (test 13.2 % 11.6-14.4 oyli=208) PLATELET COUNT (BEAKER) (test maxv=705) 139 K/CU MM 150-450 MEAN PLATELET VOLUME (BEAKER) (test sjsb=763) 9.0 fL 9.4-12.4 NUCLEATED RED BLOOD CELLS (BEAKER) (test 0 /100 WBC 0-0 wwqd=111) NEUTROPHILS RELATIVE PERCENT (BEAKER) (test 81 % xnvh=327) LYMPHOCYTES RELATIVE PERCENT (BEAKER) (test 13 % rmku=823) MONOCYTES RELATIVE PERCENT (BEAKER) (test 5 % cxfc=624) EOSINOPHILS RELATIVE PERCENT (BEAKER) (test 0 % pjhs=674) BASOPHILS RELATIVE PERCENT (BEAKER) (test 0 % gjmr=604) NEUTROPHILS ABSOLUTE COUNT (BEAKER) (test 8.37 K/ L 1.78-5.38 ooww=281) LYMPHOCYTES ABSOLUTE COUNT (BEAKER) (test 1.39 K/ L 1.32-3.57 cave=935) MONOCYTES ABSOLUTE COUNT (BEAKER) (test 0.49 K/ L 0.30-0.82 sghg=750) EOSINOPHILS ABSOLUTE COUNT (BEAKER) (test 0.04 K/ L 0.04-0.54 xpuz=790) BASOPHILS ABSOLUTE COUNT (BEAKER) (test 0.02 K/ L 0.01-0.08 eggb=326) IMMATURE GRANULOCYTES-RELATIVE PERCENT (BEAKER) 1 % 0-1 (test zlnm=2606) BLOOD GAS, [id number] 18:24:00 Test Item Value Reference Range Comments PH ARTERIAL (BEAKER) (test weax=536) 7.37 7.35-7.45 PCO2 ARTERIAL (BEAKER) (test uenm=512) 44 mmHg 35-45 PO2 ARTERIAL (BEAKER) (test vogb=052) 81 mmHg 80-90 O2 SATURATION ARTERIAL (BEAKER) (test kmoc=753) 96.1 % 96.0-97.0 HCO3 ARTERIAL (BEAKER) (test tdpu=144) 25 mmol/L 21-29 BASE EXCESS ARTERIAL (BEAKER) (test yrkp=636) -0.8 mmol/L -2.0-3.0 PATIENT TEMPERATURE (BEAKER) (test gynr=7805) 36.2 C FIO2 (BEAKER) (test epey=3056) 60.0 % SODIUM NA-STAT [id number] 18:24:00 Test Item Value Reference Range Comments SODIUM (BEAKER) (test vees=841) 147 meq/L 135-148 POTASSIUM-STAT [id number] 18:24:00 Test Item Value Reference Range Comments POTASSIUM (BEAKER) (test rcax=249) 3.6 meq/L 3.6-5.5 GLUCOSE-STAT [id number] 18:24:00 Test Item Value Reference Range Comments GLUCOSE RANDOM (BEAKER) (test grvv=557) 230 mg/dL 70-110 HGB/HCT (H&H) - STAT [id number] 18:24:00 Test Item Value Reference Range Comments HEMOGLOBIN (BEAKER) (test yyfc=945) 13.0 g/dL 13.0-16.8 HEMATOCRIT (BEAKER) (test autw=502) 38.0 % 40.0-50.0 OXYGEN SATURATION, [id number] 18:24:00 Test Item Value Reference Range Comments O2 SATURATION (MEASURED) (BEAKER) (test nrse=7755) 74.9 % CALCIUM, [id number] 18:23:00 Test Item Value Reference Range Comments CALCIUM IONIZED (BEAKER) (test jhiq=784) 1.44 mmol/L 1.12-1.27 PH, BLOOD (BEAKER) (test rcvv=2607) 7.36 THROMBOELASTOGRAPH (TEG)2019-04-04 17:53:00 Test Item Value Reference Range Comments TEG ACTIVATED CLOTTING TIME (BEAKER) (test 9.2 minutes 4.0-7.0 iray=8433) TEG FIBRINOGEN ACTIVITY (BEAKER) (test 57.5 degrees 61.0-73.0 ajkg=4710) TEG PLT. AGGREGATION (BEAKER) (test wsbb=4008) 37.3 MM 55.0-65.0 TGH ACTIVATED CLOTTING TIME (BEAKER) (test 9.3 minutes 4.0-7.0 wpmg=6637) TGH FIBRINOGEN ACTIVITY (BEAKER) (test 52.7 degrees 61.0-73.0 vgdu=2148) TGH PLT. AGGREGATION (BEAKER) (test eqfd=3170) 35.8 MM 55.0-65.0 CALCIUM, [id number] 17:28:00 Test Item Value Reference Range Comments CALCIUM IONIZED (BEAKER) (test xicd=171) 1.23 mmol/L 1.12-1.27 PH, BLOOD (BEAKER) (test rymz=3936) 7.30 BLOOD GAS, [id number] 17:28:00 Test Item Value Reference Range Comments PH ARTERIAL (BEAKER) (test floz=505) 7.31 7.35-7.45 PCO2 ARTERIAL (BEAKER) (test uzuk=376) 47 mmHg 35-45 PO2 ARTERIAL (BEAKER) (test pnxk=817) 72 mmHg 80-90 O2 SATURATION ARTERIAL (BEAKER) (test nncm=777) 93.8 % 96.0-97.0 HCO3 ARTERIAL (BEAKER) (test mdqy=393) 23 mmol/L 21-29 BASE EXCESS ARTERIAL (BEAKER) (test pezb=404) -3.5 mmol/L -2.0-3.0 PATIENT TEMPERATURE (BEAKER) (test bcth=5979) 36.0 C FIO2 (BEAKER) (test bhws=5426) 100.0 % GLUCOSE-STAT [id number] 17:28:00 Test Item Value Reference Range Comments GLUCOSE RANDOM (BEAKER) (test icvt=627) 243 mg/dL 70-110 HGB/HCT (H&H) - STAT [id number] 17:28:00 Test Item Value Reference Range Comments HEMOGLOBIN (BEAKER) (test dlbe=039) 12.6 g/dL 13.0-16.8 HEMATOCRIT (BEAKER) (test gtoq=146) 37.0 % 40.0-50.0 SODIUM NA-STAT [id number] 17:27:00 Test Item Value Reference Range Comments SODIUM (BEAKER) (test dafk=405) 143 meq/L 135-148 POTASSIUM-STAT [id number] 17:27:00 Test Item Value Reference Range Comments POTASSIUM (BEAKER) (test eadx=714) 3.5 meq/L 3.6-5.5 [id number] 17:12:00 Test Item Value Reference Range Comments FIBRINOGEN LEVEL (BEAKER) (test ymks=961) 117 mg/dl 225-434 [id number] 17:05:00 Test Item Value Reference Range Comments ACTIVATED CLOTTING TIME 444 [address] (BEAKER) (test blrn=318) [place] [address] [id number] 17:05:00 Test Item Value Reference Range Comments ACTIVATED CLOTTING TIME 406 sec TESTED AT [place] [address] [address] (BEAKER) (test zbsn=008) [place] [address] [id number] 17:05:00 Test Item Value Reference Range Comments ACTIVATED CLOTTING TIME 411 sec TESTED AT [place] [address] [address] (BEAKER) (test iroq=854) [place] [address] [id number] 17:05:00 Test Item Value Reference Range Comments ACTIVATED CLOTTING TIME 351 sec TESTED AT [place] [address] [address] (BEAKER) (test dnqz=434) [place] [address] [id number] 17:05:00 Test Item Value Reference Range Comments ACTIVATED CLOTTING TIME 626 sec TESTED AT [place] [address] [address] (BEAKER) (test aocl=038) [place] [address] [id number] 17:02:00 Test Item Value Reference Range Comments PARTIAL THROMBOPLASTIN TIME (BEAKER) (test 40.8 seconds 22.5-36.0 lyof=112) PROTHROMBIN [id number] 17:01:00 Test Item Value Reference Range Comments PROTIME (BEAKER) (test jaac=491) 31.7 seconds 11.9-14.2 INR (BEAKER) (test glby=451) 3.3 <=5.9 Effective 03/27/2019: PT Reference Range ChangeNew: 11.9-14.2 Previous: 11.7- 14.7RECOMMENDED COUMADIN/WARFARIN INR THERAPY RANGESSTANDARD DOSE: 2.0-3.0 Includes: PROPHYLAXIS for venous thrombosis, systemic embolization; TREATMENT for venous thrombosis and/or pulmonary embolus.HIGH RISK: Target INR is2.5-3.5 for patients wiht mechanical heart valves.PLATELET [id number] 16:49:00 Test Item Value Reference Range Comments PLATELET COUNT (BEAKER) (test jvdj=087) 52 K/CU MM 150-450 CALCIUM, [id number] 16:44:00 Test Item Value Reference Range Comments CALCIUM IONIZED (BEAKER) (test mfhm=442) 1.08 mmol/L 1.12-1.27 PH, BLOOD (BEAKER) (test tksj=7780) 7.33 BLOOD GAS, [id number] 16:44:00 Test Item Value Reference Range Comments PH ARTERIAL (BEAKER) (test cjcy=071) 7.34 7.35-7.45 PCO2 ARTERIAL (BEAKER) (test juzg=323) 40 mmHg 35-45 PO2 ARTERIAL (BEAKER) (test thgi=576) 132 mmHg 80-90 O2 SATURATION ARTERIAL (BEAKER) (test jzcr=868) 98.6 % 96.0-97.0 HCO3 ARTERIAL (BEAKER) (test vdjb=906) 21 mmol/L 21-29 BASE EXCESS ARTERIAL (BEAKER) (test pdry=828) -4.3 mmol/L -2.0-3.0 PATIENT TEMPERATURE (BEAKER) (test kcqd=6371) 36.0 C FIO2 (BEAKER) (test mvjd=2832) 100.0 % GLUCOSE-STAT [id number] 16:44:00 Test Item Value Reference Range Comments GLUCOSE RANDOM (BEAKER) (test nlef=380) 277 mg/dL 70-110 HGB/HCT (H&H) - STAT [id number] 16:44:00 Test Item Value Reference Range Comments HEMOGLOBIN (BEAKER) (test innw=956) 11.3 g/dL 13.0-16.8 HEMATOCRIT (BEAKER) (test sdfn=886) 33.0 % 40.0-50.0 SODIUM NA-STAT [id number] 16:43:00 Test Item Value Reference Range Comments SODIUM (BEAKER) (test vpkt=242) 141 meq/L 135-148 POTASSIUM-STAT [id number] 16:43:00 Test Item Value Reference Range Comments POTASSIUM (BEAKER) (test ucqy=981) 3.6 meq/L 3.6-5.5 BLOOD GAS, [id number] 16:23:00 Test Item Value Reference Range Comments PH ARTERIAL (BEAKER) (test bsyi=768) 7.35 7.35-7.45 PCO2 ARTERIAL (BEAKER) (test pnwq=532) 54 mmHg 35-45 PO2 ARTERIAL (BEAKER) (test yfqt=467) 206 mmHg 80-90 O2 SATURATION ARTERIAL (BEAKER) (test yide=265) 99.4 % 96.0-97.0 HCO3 ARTERIAL (BEAKER) (test cawt=188) 30 mmol/L 21-29 BASE EXCESS ARTERIAL (BEAKER) (test obxf=448) 2.9 mmol/L -2.0-3.0 PATIENT TEMPERATURE (BEAKER) (test xiri=8020) 34.0 C FIO2 (BEAKER) (test jtfj=2187) 100.0 % SODIUM NA-STAT [id number] 16:23:00 Test Item Value Reference Range Comments SODIUM (BEAKER) (test roxe=961) 146 meq/L 135-148 GLUCOSE-STAT [id number] 16:23:00 Test Item Value Reference Range Comments GLUCOSE RANDOM (BEAKER) (test ecur=145) 281 mg/dL 70-110 HGB/HCT (H&H) - STAT [id number] 16:23:00 Test Item Value Reference Range Comments HEMOGLOBIN (BEAKER) (test ovhe=853) 9.9 g/dL 13.0-16.8 HEMATOCRIT (BEAKER) (test yxoc=918) 29.0 % 40.0-50.0 POTASSIUM-STAT [id number] 16:22:00 Test Item Value Reference Range Comments POTASSIUM (BEAKER) (test ycfq=456) 4.2 meq/L 3.6-5.5 CALCIUM, [id number] 16:22:00 Test Item Value Reference Range Comments CALCIUM IONIZED (BEAKER) (test ckxi=865) 1.16 mmol/L 1.12-1.27 PH, BLOOD (BEAKER) (test yibt=2762) 7.31 BLOOD GAS, [id number] 16:13:00 Test Item Value Reference Range Comments PH ARTERIAL (BEAKER) (test upio=392) 7.16 7.35-7.45 PCO2 ARTERIAL (BEAKER) (test ofhm=669) 41 mmHg 35-45 PO2 ARTERIAL (BEAKER) (test qhdw=507) 114 mmHg 80-90 O2 SATURATION ARTERIAL (BEAKER) (test szlh=001) 97.2 % 96.0-97.0 HCO3 ARTERIAL (BEAKER) (test jhir=217) 15 mmol/L 21-29 BASE EXCESS ARTERIAL (BEAKER) (test egii=107) -13.3 mmol/L -2.0-3.0 PATIENT TEMPERATURE (BEAKER) (test hbtn=1853) 35.8 C FIO2 (BEAKER) (test ukbs=3795) 100.0 % CALCIUM, [id number] 16:13:00 Test Item Value Reference Range Comments CALCIUM IONIZED (BEAKER) (test cyyj=945) 1.11 mmol/L 1.12-1.27 PH, BLOOD (BEAKER) (test sgzr=5442) 7.14 GLUCOSE-STAT [id number] 16:13:00 Test Item Value Reference Range Comments GLUCOSE RANDOM (BEAKER) (test flvp=968) 268 mg/dL 70-110 HGB/HCT (H&H) - STAT [id number] 16:13:00 Test Item Value Reference Range Comments HEMOGLOBIN (BEAKER) (test lzvg=598) 6.8 g/dL 13.0-16.8 HEMATOCRIT (BEAKER) (test hcow=607) 20.0 % 40.0-50.0 SODIUM NA-STAT [id number] 16:12:00 Test Item Value Reference Range Comments SODIUM (BEAKER) (test mjzk=724) 137 meq/L 135-148 POTASSIUM-STAT [id number] 16:12:00 Test Item Value Reference Range Comments POTASSIUM (BEAKER) (test aziy=500) 4.6 meq/L 3.6-5.5 BLOOD GAS, [id number] 15:44:00 Test Item Value Reference Range Comments PH ARTERIAL (BEAKER) (test hmrb=476) 7.31 7.35-7.45 PCO2 ARTERIAL (BEAKER) (test czae=627) 43 mmHg 35-45 PO2 ARTERIAL (BEAKER) (test anqv=503) 416 mmHg 80-90 O2 SATURATION ARTERIAL (BEAKER) (test itvm=827) 99.8 % 96.0-97.0 HCO3 ARTERIAL (BEAKER) (test brwc=183) 22 mmol/L 21-29 BASE EXCESS ARTERIAL (BEAKER) (test prtd=209) -4.7 mmol/L -2.0-3.0 PATIENT TEMPERATURE (BEAKER) (test rmjy=4096) 34.6 C FIO2 (BEAKER) (test qcpz=5866) 90.0 % GLUCOSE-STAT [id number] 15:44:00 Test Item Value Reference Range Comments GLUCOSE RANDOM (BEAKER) (test didp=843) 255 mg/dL 70-110 HGB/HCT (H&H) - STAT [id number] 15:44:00 Test Item Value Reference Range Comments HEMOGLOBIN (BEAKER) (test iozn=060) 9.0 g/dL 13.0-16.8 HEMATOCRIT (BEAKER) (test fdsn=480) 26.0 % 40.0-50.0 SODIUM NA-STAT [id number] 15:43:00 Test Item Value Reference Range Comments SODIUM (BEAKER) (test zkwo=071) 135 meq/L 135-148 POTASSIUM-STAT [id number] 15:43:00 Test Item Value Reference Range Comments POTASSIUM (BEAKER) (test zjqu=949) 4.9 meq/L 3.6-5.5 BLOOD GAS, [id number] 14:59:00 Test Item Value Reference Range Comments PH ARTERIAL (BEAKER) (test vtvq=234) 7.38 7.35-7.45 PCO2 ARTERIAL (BEAKER) (test vsfs=712) 40 mmHg 35-45 PO2 ARTERIAL (BEAKER) (test dqyl=515) 294 mmHg 80-90 O2 SATURATION ARTERIAL (BEAKER) (test kisc=106) 99.7 % 96.0-97.0 HCO3 ARTERIAL (BEAKER) (test wghq=960) 24 mmol/L 21-29 BASE EXCESS ARTERIAL (BEAKER) (test ffiz=409) -1.7 mmol/L -2.0-3.0 PATIENT TEMPERATURE (BEAKER) (test qhek=5624) 35.1 C FIO2 (BEAKER) (test uagy=5602) 75.0 % SODIUM NA-STAT [id number] 14:59:00 Test Item Value Reference Range Comments SODIUM (BEAKER) (test dhqk=540) 133 meq/L 135-148 GLUCOSE-STAT [id number] 14:59:00 Test Item Value Reference Range Comments GLUCOSE RANDOM (BEAKER) (test ratn=506) 249 mg/dL 70-110 HGB/HCT (H&H) - STAT [id number] 14:59:00 Test Item Value Reference Range Comments HEMOGLOBIN (BEAKER) (test oemp=460) 7.9 g/dL 13.0-16.8 HEMATOCRIT (BEAKER) (test hirt=247) 23.0 % 40.0-50.0 POTASSIUM-STAT [id number] 14:58:00 Test Item Value Reference Range Comments POTASSIUM (BEAKER) (test zwgf=103) 4.6 meq/L 3.6-5.5 POTASSIUM-STAT [id number] 14:28:00 Test Item Value Reference Range Comments POTASSIUM (BEAKER) (test lure=652) 3.9 meq/L 3.6-5.5 BLOOD GAS, [id number] 14:28:00 Test Item Value Reference Range Comments PH ARTERIAL (BEAKER) (test oivn=835) 7.36 7.35-7.45 PCO2 ARTERIAL (BEAKER) (test waxl=581) 33 mmHg 35-45 PO2 ARTERIAL (BEAKER) (test sljt=910) 323 mmHg 80-90 O2 SATURATION ARTERIAL (BEAKER) (test cwrl=476) 99.7 % 96.0-97.0 HCO3 ARTERIAL (BEAKER) (test ziok=981) 20 mmol/L 21-29 BASE EXCESS ARTERIAL (BEAKER) (test olny=237) -7.0 mmol/L -2.0-3.0 PATIENT TEMPERATURE (BEAKER) (test fwdq=1659) 27.5 C FIO2 (BEAKER) (test rnlu=3035) 60.0 % SODIUM NA-STAT [id number] 14:28:00 Test Item Value Reference Range Comments SODIUM (BEAKER) (test catz=186) 132 meq/L 135-148 GLUCOSE-STAT [id number] 14:28:00 Test Item Value Reference Range Comments GLUCOSE RANDOM (BEAKER) (test qeuj=970) 257 mg/dL 70-110 HGB/HCT (H&H) - STAT [id number] 14:28:00 Test Item Value Reference Range Comments HEMOGLOBIN (BEAKER) (test vihj=642) 8.6 g/dL 13.0-16.8 HEMATOCRIT (BEAKER) (test zner=688) 25.0 % 40.0-50.0 BLOOD GAS, [id number] 13:17:00 Test Item Value Reference Range Comments PH ARTERIAL (BEAKER) (test emhl=212) 7.34 7.35-7.45 PCO2 ARTERIAL (BEAKER) (test wgsw=256) 41 mmHg 35-45 PO2 ARTERIAL (BEAKER) (test adhd=608) 231 mmHg 80-90 O2 SATURATION ARTERIAL (BEAKER) (test sbwf=298) 99.5 % 96.0-97.0 HCO3 ARTERIAL (BEAKER) (test myxz=103) 21 mmol/L 21-29 BASE EXCESS ARTERIAL (BEAKER) (test kbnb=007) -4.5 mmol/L -2.0-3.0 PATIENT TEMPERATURE (BEAKER) (test mkee=6984) 36.0 C FIO2 (BEAKER) (test dqgv=9832) 100.0 % SODIUM NA-STAT [id number] 13:17:00 Test Item Value Reference Range Comments SODIUM (BEAKER) (test iqzz=041) 132 meq/L 135-148 GLUCOSE-STAT [id number] 13:17:00 Test Item Value Reference Range Comments GLUCOSE RANDOM (BEAKER) (test cyqy=001) 139 mg/dL 70-110 CALCIUM, [id number] 13:14:00 Test Item Value Reference Range Comments CALCIUM IONIZED (BEAKER) (test wmhw=759) 1.12 mmol/L 1.12-1.27 PH, BLOOD (BEAKER) (test prwf=8935) 7.32 POTASSIUM-STAT [id number] 13:13:00 Test Item Value Reference Range Comments POTASSIUM (BEAKER) (test okkw=091) 3.9 meq/L 3.6-5.5 HGB/HCT (H&H) - STAT [id number] 13:13:00 Test Item Value Reference Range Comments HEMOGLOBIN (BEAKER) (test uvla=975) 14.7 g/dL 13.0-16.8 HEMATOCRIT (BEAKER) (test fvas=642) 43.0 % 40.0-50.0 BASIC METABOLIC [id number] 06:01:00 Test Item Value Reference Range Comments SODIUM (BEAKER) (test 138 meq/L 136-145 eaoc=868) POTASSIUM (BEAKER) (test 4.0 meq/L 3.5-5.1 Specimen slightly arsv=497) hemolyzed CHLORIDE (BEAKER) (test 104 meq/L 98-107 vlmq=199) CO2 (BEAKER) (test 22 meq/L 22-29 fwqe=707) BLOOD UREA NITROGEN 15 mg/dL 7-21 (BEAKER) (test ushx=452) CREATININE (BEAKER) (test 0.70 mg/dL 0.57-1.25 Specimen slightly qprz=784) hemolyzed GLUCOSE RANDOM (BEAKER) 127 mg/dL 70-105 (test mclx=214) CALCIUM (BEAKER) (test 9.6 mg/dL 8.4-10.2 uplm=997) EGFR (BEAKER) (test 113 mL/min/1.73 sq m ESTIMATED GFR IS NOT gpsj=5850) ACCURATE CREATININE CLEARANCE IN PREDICTING GLOMERULAR FILTRATION RATE. ESTIMATED GFR IS NOT APPLICABLE FOR DIALYSIS PATIENTS. POCT-GLUCOSE [id number] 22:20:00 Test Item Value Reference Range Comments POC-GLUCOSE METER (BEAKER) 164 mg/dL 70-110 TESTED AT [facility] [address] [facility] (test zair=0950) [place] [address] PROTHROMBIN [id number] 22:15:00 Test Item Value Reference Range Comments PROTIME (BEAKER) (test vqdg=103) 13.8 seconds 11.9-14.2 INR (BEAKER) (test hyrl=712) 1.1 <=5.9 Effective 03/27/2019: PT Reference Range ChangeNew: 11.9-14.2 Previous: 11.7- 14.7RECOMMENDED COUMADIN/WARFARIN INR THERAPY RANGESSTANDARD DOSE: 2.0-3.0 Includes: PROPHYLAXIS for venous thrombosis, systemic embolization; TREATMENT for venous thrombosis and/or pulmonary embolus.HIGH RISK: Target INR is2.5-3.5 for patients wiht mechanical heart valves.[id number] 22:15:00 Test Item Value Reference Range Comments PARTIAL THROMBOPLASTIN TIME (BEAKER) (test 33.3 seconds 22.5-36.0 eqjy=322) BASIC METABOLIC [id number] 21:43:00 Test Item Value Reference Range Comments SODIUM (BEAKER) (test 135 meq/L 136-145 ipwo=424) POTASSIUM (BEAKER) (test 5.1 meq/L 3.5-5.1 Specimen moderately rmru=082) hemolyzed CHLORIDE (BEAKER) (test 104 meq/L 98-107 ixch=317) CO2 (BEAKER) (test 22 meq/L 22-29 dorq=628) BLOOD UREA NITROGEN 17 mg/dL 7-21 (BEAKER) (test mxmh=375) CREATININE (BEAKER) (test 0.72 mg/dL 0.57-1.25 Specimen moderately xztr=604) hemolyzed GLUCOSE RANDOM (BEAKER) 161 mg/dL 70-105 (test yvsb=173) CALCIUM (BEAKER) (test 9.4 mg/dL 8.4-10.2 uoxb=393) EGFR (BEAKER) (test 110 mL/min/1.73 sq m ESTIMATED GFR IS NOT zdeq=8102) ACCURATE CREATININE CLEARANCE IN PREDICTING GLOMERULAR FILTRATION RATE. ESTIMATED GFR IS NOT APPLICABLE FOR DIALYSIS PATIENTS. CBC W/PLT COUNT & AUTO [id number] 21:14:00 Test Item Value Reference Range Comments WHITE BLOOD CELL COUNT (BEAKER) (test vjdx=638) 10.3 K/ L 3.5-10.5 RED BLOOD CELL COUNT (BEAKER) (test gcdc=421) 4.96 M/ L 4.63-6.08 HEMOGLOBIN (BEAKER) (test qote=349) 15.2 GM/DL 13.7-17.5 HEMATOCRIT (BEAKER) (test bcfn=960) 44.3 % 40.1-51.0 MEAN CORPUSCULAR VOLUME (BEAKER) (test kfwn=767) 89.3 fL 79.0-92.2 MEAN CORPUSCULAR HEMOGLOBIN (BEAKER) (test 30.6 pg 25.7-32.2 yedu=775) MEAN CORPUSCULAR HEMOGLOBIN CONC (BEAKER) (test 34.3 GM/DL 32.3-36.5 ltks=236) RED CELL DISTRIBUTION WIDTH (BEAKER) (test 12.8 % 11.6-14.4 qodg=091) PLATELET COUNT (BEAKER) (test phas=159) 262 K/CU MM 150-450 MEAN PLATELET VOLUME (BEAKER) (test ojhb=070) 9.3 fL 9.4-12.4 NUCLEATED RED BLOOD CELLS (BEAKER) (test 0 /100 WBC 0-0 nmlm=134) NEUTROPHILS RELATIVE PERCENT (BEAKER) (test 73 % mjot=577) LYMPHOCYTES RELATIVE PERCENT (BEAKER) (test 19 % wevk=483) MONOCYTES RELATIVE PERCENT (BEAKER) (test 7 % isny=890) EOSINOPHILS RELATIVE PERCENT (BEAKER) (test 1 % ecca=230) BASOPHILS RELATIVE PERCENT (BEAKER) (test 0 % tyae=260) NEUTROPHILS ABSOLUTE COUNT (BEAKER) (test 7.53 K/ L 1.78-5.38 davh=903) LYMPHOCYTES ABSOLUTE COUNT (BEAKER) (test 1.94 K/ L 1.32-3.57 djdt=938) MONOCYTES ABSOLUTE COUNT (BEAKER) (test 0.69 K/ L 0.30-0.82 waim=420) EOSINOPHILS ABSOLUTE COUNT (BEAKER) (test 0.12 K/ L 0.04-0.54 wkkd=470) BASOPHILS ABSOLUTE COUNT (BEAKER) (test 0.03 K/ L 0.01-0.08 uand=243) IMMATURE GRANULOCYTES-RELATIVE PERCENT (BEAKER) 0 % 0-1 (test dddn=7359) BLOOD [id number] 05:01:00 Test Item Value Reference Range Comments CULTURE (BEAKER) (test ydho=5891) No growth in 5 days BLOOD [id number] 05:01:00 Test Item Value Reference Range Comments CULTURE (BEAKER) (test iioc=7291) No growth in 5 days URINE [id number] 17:30:00 Test Item Value Reference Range Comments CULTURE (BEAKER) (test alsq=2420) No growth POCT-GLUCOSE [id number] 12:44:00 Test Item Value Reference Range Comments POC-GLUCOSE METER (BEAKER) 243 mg/dL 70-110 TESTED AT [address] (test uoss=2144) [place] [id number] VANCOMYCIN LEVEL, [id number] 09:18:00 Test Item Value Reference Range Comments VANCOMYCIN TROUGH (BEAKER) (test pqsr=926) 12.8 ug/mL 10.0-20.0 Please draw vancomycin trough level. If level greater than 20 mcg/mL, please hold 900 dose.POCT-GLUCOSE [id number] 08:07:00 Test Item Value Reference Range Comments POC-GLUCOSE METER (BEAKER) 225 mg/dL 70-110 TESTED AT [address] (test yyaj=6513) [place] [id number] POCT-GLUCOSE [id number] 21:42:00 Test Item Value Reference Range Comments POC-GLUCOSE METER (BEAKER) 304 mg/dL 70-110 TESTED AT [address] (test xljf=4453) [place] [id number] POCT-GLUCOSE [id number] 18:30:00 Test Item Value Reference Range Comments POC-GLUCOSE METER (BEAKER) 259 mg/dL 70-110 TESTED AT [address] (test yjvm=9201) [place] [id number] POCT-GLUCOSE [id number] 14:03:00 Test Item Value Reference Range Comments POC-GLUCOSE METER (BEAKER) 297 mg/dL 70-110 TESTED AT [address] (test nefw=4733) [place] [facility] [address] RESPIRATORY PANEL [id number] 12:24:00 Test Item Value Reference Range Comments HUMAN METAPNEUMOVIRUS (BEAKER) (test Not detected Not detected, Equivocal apdc=7687) RHINOVIRUS (BEAKER) (test xzez=1213) Not detected Not detected, Equivocal INFLUENZA A (BEAKER) (test lpuu=5067) Not detected Not detected, Equivocal INFLUENZA A (NO SUBTYPE) (test Not detected, Equivocal ghsz=2344) INFLUENZA A SUBTYPE H1 (BEAKER) (test Not detected, Equivocal pkfj=1230) INFLUENZA A SUBTYPE H3 (BEAKER) (test Not detected, Equivocal ufcv=7607) INFLUENZA A SUBTYPE H1-2009 (BEAKER) Not detected, Equivocal (test ptwp=4182) INFLUENZA B (BEAKER) (test qaff=8328) Not detected Not detected, Equivocal RESPIRATORY SYNCYTIAL VIRUS (BEAKER) Not detected Not detected, Equivocal (test dtdv=7768) PARAINFLUENZA VIRUS 1 (BEAKER) (test Not detected Not detected, Equivocal ixxb=0192) PARAINFLUENZA VIRUS 2 (BEAKER) (test Not detected Not detected, Equivocal jvqb=0536) PARAINFLUENZA VIRUS 3 (BEAKER) (test Not detected Not detected, Equivocal urki=6655) PARAINFLUENZA VIRUS 4 (BEAKER) (test Not detected Not detected, Equivocal qhem=5602) ADENOVIRUS (BEAKER) (test bjfm=2827) Not detected Not detected, Equivocal CORONAVIRUS 229E (BEAKER) (test Not detected Not detected, Equivocal gmxe=2647) CORONAVIRUS HKU1 (BEAKER) (test Not detected Not detected, Equivocal oycy=4832) CORONAVIRUS NL63 (BEAKER) (test Not detected Not detected, Equivocal uqaw=3219) CORONAVIRUS OC43 (BEAKER) (test Not detected Not detected, Equivocal fdds=2947) BORDETELLA PERTUSSIS (BEAKER) (test Not detected Not detected, Equivocal gsem=8957) CHLAMYDOPHILA PNEUMONIAE (BEAKER) (test Not detected Not detected, Equivocal verd=3518) MYCOPLASMA PNEUMONIAE (BEAKER) (test Not detected Not detected, Equivocal ronf=6353) Other viruses and bacteria not targeted by this PCR panel cannot be excluded; therefore clinical correlation and follow up of serology, culture results, and other molecular studies is required. The results are not intended to be used as the sole means for clinical diagnosis or patient management decisions. This sample was tested at the [facility] using the UepaaArray Respiratory Panel. It is FDA cleared and has been verified and approved by the [facility] for clinical use on nasal swab specimens. It is not FDA-cleared for use on bronchial wash/lavage samples. However, for this sample type, validation was performed and test characteristics were determined and approved, by [facility] for clinical use under the Clinical Laboratory Improvement Amendments (CLIA) of 1988 requirements. Therefore, FDA clearance isnot required. This laboratory is CLIA-certified and [employer] [place] ([employer])-accredited to perform high complexity testing.POCT-GLUCOSE [id number] 07:58:00 Test Item Value Reference Range Comments POC-GLUCOSE METER (BEAKER) 209 mg/dL 70-110 TESTED AT [facility] [address] (test tulz=6219) [place] [address] RAD, CHEST, 1 VIEW, NON [id number] 07:32:00Reason for exam:->interval change in interstitial patternShould [...] edema, pneumothorax, or significant effusion. Signed: Galen Prideeport Verified Date/Time: 10/05/2018 07:32:16 Reading Location: [facility] Radiology Reading Room BASIC METABOLIC [id number] 06:37:00 Test Item Value Reference Range Comments SODIUM (BEAKER) (test 140 meq/L 136-145 kvoi=806) POTASSIUM (BEAKER) (test 3.2 meq/L 3.5-5.1 fryi=462) CHLORIDE (BEAKER) (test 105 meq/L 98-107 hbsa=776) CO2 (BEAKER) (test 28 meq/L 22-29 wcrn=108) BLOOD UREA NITROGEN 15 mg/dL 7-21 (BEAKER) (test qujt=952) CREATININE (BEAKER) (test 0.74 mg/dL 0.57-1.25 nurh=235) GLUCOSE RANDOM (BEAKER) 191 mg/dL 70-105 (test umgn=702) CALCIUM (BEAKER) (test 9.1 mg/dL 8.4-10.2 imxo=928) EGFR (BEAKER) (test 106 mL/min/1.73 sq m ESTIMATED GFR IS NOT srvy=5244) ACCURATE CREATININE CLEARANCE IN PREDICTING GLOMERULAR FILTRATION RATE. ESTIMATED GFR IS NOT APPLICABLE FOR DIALYSIS PATIENTS. TROPONIN [id number] 06:35:00 Test Item Value Reference Range Comments TROPONIN I (BEAKER) (test facw=626) 0.02 ng/mL 0.00-0.03 Troponin I (TnI) levels [...] and persistent tachyarrhythmia.CBC W/PLT COUNT & AUTO [id number] 06:17:00 Test Item Value Reference Range Comments WHITE BLOOD CELL COUNT (BEAKER) (test flzo=585) 6.3 K/ L 3.5-10.5 RED BLOOD CELL COUNT (BEAKER) (test tyyw=089) 4.43 M/ L 4.63-6.08 HEMOGLOBIN (BEAKER) (test kltq=390) 13.6 GM/DL 13.7-17.5 HEMATOCRIT (BEAKER) (test cyfc=016) 39.8 % 40.1-51.0 MEAN CORPUSCULAR VOLUME (BEAKER) (test ghnz=871) 89.8 fL 79.0-92.2 MEAN CORPUSCULAR HEMOGLOBIN (BEAKER) (test 30.7 pg 25.7-32.2 aixq=564) MEAN CORPUSCULAR HEMOGLOBIN CONC (BEAKER) (test 34.2 GM/DL 32.3-36.5 wuvm=543) RED CELL DISTRIBUTION WIDTH (BEAKER) (test 13.1 % 11.6-14.4 qvpe=847) PLATELET COUNT (BEAKER) (test rdkr=354) 200 K/CU MM 150-450 MEAN PLATELET VOLUME (BEAKER) (test xvdy=414) 9.5 fL 9.4-12.4 NUCLEATED RED BLOOD CELLS (BEAKER) (test 0 /100 WBC 0-0 xzun=260) NEUTROPHILS RELATIVE PERCENT (BEAKER) (test 65 % ilfb=575) LYMPHOCYTES RELATIVE PERCENT (BEAKER) (test 24 % rlds=841) MONOCYTES RELATIVE PERCENT (BEAKER) (test 8 % ljno=231) EOSINOPHILS RELATIVE PERCENT (BEAKER) (test 2 % axff=424) BASOPHILS RELATIVE PERCENT (BEAKER) (test 1 % tbbh=157) NEUTROPHILS ABSOLUTE COUNT (BEAKER) (test 4.12 K/ L 1.78-5.38 hyjf=231) LYMPHOCYTES ABSOLUTE COUNT (BEAKER) (test 1.51 K/ L 1.32-3.57 uwrn=389) MONOCYTES ABSOLUTE COUNT (BEAKER) (test 0.50 K/ L 0.30-0.82 yhzg=054) EOSINOPHILS ABSOLUTE COUNT (BEAKER) (test 0.15 K/ L 0.04-0.54 vvla=767) BASOPHILS ABSOLUTE COUNT (BEAKER) (test 0.03 K/ L 0.01-0.08 eotr=775) IMMATURE GRANULOCYTES-RELATIVE PERCENT (BEAKER) 1 % 0-1 (test bnsa=6481) POCT-GLUCOSE [id number] 23:02:00 Test Item Value Reference Range Comments POC-GLUCOSE METER (BEAKER) 305 mg/dL 70-110 TESTED AT [facility] [address] [place] [address] (test tmpg=8149) [place] [address] TROPONIN [id number] 22:20:00 Test Item Value Reference Range Comments TROPONIN I (BEAKER) (test viaz=916) 0.03 ng/mL 0.00-0.03 Troponin I (TnI) levels [...] acidosis, acute neurological disease, and persistent tachyarrhythmia.VITAMIN [id number] 18:10:00 Test Item Value Reference Range Comments VITAMIN B12 (BEAKER) (test enki=677) 596 pg/mL 213-816 TSH/FREE T4 IF [id number] 18:10:00 Test Item Value Reference Range Comments THYROID STIMULATING HORMONE (BEAKER) (test 0.64 uIU/mL 0.35-4.94 ujeg=682) POCT-GLUCOSE [id number] 17:15:00 Test Item Value Reference Range Comments POC-GLUCOSE METER (BEAKER) 178 mg/dL 70-110 TESTED AT [facility] [address] (test hptm=8405) [place] [address] CT, BRAIN, WITHOUT [id number] 17:08:00FINAL REPORT CT head without contrast 10/04/2018 [...] Rivas Verified Date/Time: 10/04/2018 17:08:17 Reading Location: [facility] Radiology Reading Room BLOOD GAS, [id number] 16:32:00 Test Item Value Reference Range Comments PH ARTERIAL (BEAKER) (test bqad=980) 7.39 7.35-7.45 PCO2 ARTERIAL (BEAKER) (test meuk=796) 46 mmHg 35-45 PO2 ARTERIAL (BEAKER) (test oeqf=293) 71 mmHg 80-90 O2 SATURATION ARTERIAL (BEAKER) (test ttij=620) 94.1 % 96.0-97.0 HCO3 ARTERIAL (BEAKER) (test vstw=827) 27 mmol/L 21-29 BASE EXCESS ARTERIAL (BEAKER) (test zenp=960) 1.5 mmol/L -2.0-3.0 PATIENT TEMPERATURE (BEAKER) (test ywsa=2135) 37.0 C FIO2 (BEAKER) (test vxxc=0154) 36.0 % RAPID INFLUENZA A&B [id number] 16:22:00 Test Item Value Reference Range Comments RAPID INFLUENZA A AG (BEAKER) (test Negative Negative, Inconclusive yygl=1495) RAPID INFLUENZA B AG (BEAKER) (test Negative Negative, Inconclusive muxu=3873) B-TYPE NATRIURETIC FACTOR (BNP)2018-10-04 13:22:00 Test Item Value Reference Range Comments B-TYPE NATRIURETIC PEPTIDE (BEAKER) (test sjrz=783) 23 pg/mL 0-100 TROPONIN [id number] 13:21:00 Test Item Value Reference Range Comments TROPONIN I (BEAKER) (test ehjq=533) 0.04 ng/mL 0.00-0.03 Troponin I (TnI) levels [...] failure, acidosis, acute neurological disease, and persistent tachyarrhythmia.[id number] 13:12:00 Test Item Value Reference Range Comments MAGNESIUM (BEAKER) (test tnbb=661) 1.1 mg/dL 1.6-2.6 BASIC METABOLIC [id number] 13:12:00 Test Item Value Reference Range Comments SODIUM (BEAKER) (test 140 meq/L 136-145 fypf=079) POTASSIUM (BEAKER) (test 3.7 meq/L 3.5-5.1 jlle=328) CHLORIDE (BEAKER) (test 105 meq/L 98-107 hbik=751) CO2 (BEAKER) (test 25 meq/L 22-29 qbhu=637) BLOOD UREA NITROGEN 24 mg/dL 7-21 (BEAKER) (test xktt=709) CREATININE (BEAKER) (test 0.90 mg/dL 0.57-1.25 zhkd=985) GLUCOSE RANDOM (BEAKER) 167 mg/dL 70-105 (test edeb=680) CALCIUM (BEAKER) (test 9.1 mg/dL 8.4-10.2 gcvp=023) EGFR (BEAKER) (test 85 mL/min/1.73 sq m ESTIMATED GFR IS NOT ndfk=2690) ACCURATE CREATININE CLEARANCE IN PREDICTING GLOMERULAR FILTRATION RATE. ESTIMATED GFR IS NOT APPLICABLE FOR DIALYSIS PATIENTS. CBC W/PLT COUNT & AUTO [id number] 12:40:00 Test Item Value Reference Range Comments WHITE BLOOD CELL COUNT (BEAKER) (test zcxi=145) 9.5 K/ L 3.5-10.5 RED BLOOD CELL COUNT (BEAKER) (test qmml=838) 4.57 M/ L 4.63-6.08 HEMOGLOBIN (BEAKER) (test yktd=232) 13.8 GM/DL 13.7-17.5 HEMATOCRIT (BEAKER) (test tjhp=141) 40.8 % 40.1-51.0 MEAN CORPUSCULAR VOLUME (BEAKER) (test smmi=197) 89.3 fL 79.0-92.2 MEAN CORPUSCULAR HEMOGLOBIN (BEAKER) (test 30.2 pg 25.7-32.2 kgbv=865) MEAN CORPUSCULAR HEMOGLOBIN CONC (BEAKER) (test 33.8 GM/DL 32.3-36.5 okmv=048) RED CELL DISTRIBUTION WIDTH (BEAKER) (test 13.2 % 11.6-14.4 qpvf=589) PLATELET COUNT (BEAKER) (test vnpf=624) 229 K/CU MM 150-450 MEAN PLATELET VOLUME (BEAKER) (test uzrp=102) 9.6 fL 9.4-12.4 NUCLEATED RED BLOOD CELLS (BEAKER) (test 0 /100 WBC 0-0 dlyl=114) NEUTROPHILS RELATIVE PERCENT (BEAKER) (test 64 % qxbu=079) LYMPHOCYTES RELATIVE PERCENT (BEAKER) (test 26 % jzui=495) MONOCYTES RELATIVE PERCENT (BEAKER) (test 8 % zjep=159) EOSINOPHILS RELATIVE PERCENT (BEAKER) (test 2 % elxa=593) BASOPHILS RELATIVE PERCENT (BEAKER) (test 1 % yqhe=968) NEUTROPHILS ABSOLUTE COUNT (BEAKER) (test 6.05 K/ L 1.78-5.38 vrmg=879) LYMPHOCYTES ABSOLUTE COUNT (BEAKER) (test 2.48 K/ L 1.32-3.57 bpcn=018) MONOCYTES ABSOLUTE COUNT (BEAKER) (test 0.73 K/ L 0.30-0.82 qwls=676) EOSINOPHILS ABSOLUTE COUNT (BEAKER) (test 0.14 K/ L 0.04-0.54 gimj=235) BASOPHILS ABSOLUTE COUNT (BEAKER) (test 0.05 K/ L 0.01-0.08 kfst=630) IMMATURE GRANULOCYTES-RELATIVE PERCENT (BEAKER) 1 % 0-1 (test sauh=7328) RAD, CHEST, 1 VIEW, NON [id number] 12:31:00Reason for exam:->chest painFINAL REPORT Chest one view. Clinical history: chest pain Comparison: September 07, 2018 Discussion: A frontal chest is provided. Cardiomediastinal contours are unchanged. There is mild bibasilar atelectasis, right greater than left. No new consolidation identified. No julisa pulmonary edema, pneumothorax, or significant effusion. Osseous structures demonstrate mild degenerative changes. Signed: Galen Pride Verified Date/Time: 10/04/2018 12:31:58 Reading Location: [facility] Radiology Reading Room FUNGUS CULTURE + [id number] 16:07:00 Test Item Value Reference Range Comments CULTURE (BEAKER) (test vuip=8156) <1+ Lauren albicans FUNGUS SMEAR (BEAKER) (test No fungi seen gvyo=5377) POCT-GLUCOSE [id number] 12:22:00 Test Item Value Reference Range Comments POC-GLUCOSE METER (BEAKER) 171 mg/dL 70-110 TESTED AT [address] (test bsxr=6226) [facility] [id number] POCT-GLUCOSE [id number] 08:28:00 Test Item Value Reference Range Comments POC-GLUCOSE METER (BEAKER) 212 mg/dL 70-110 TESTED AT [address] (test fnxr=6662) [facility] [id number] POCT-GLUCOSE [id number] 21:23:00 Test Item Value Reference Range Comments POC-GLUCOSE METER (BEAKER) 266 mg/dL 70-110 TESTED AT [address] (test xbzv=9659) [facility] [address] POCT-GLUCOSE [id number] 17:14:00 Test Item Value Reference Range Comments POC-GLUCOSE METER (BEAKER) 207 mg/dL 70-110 TESTED AT [address] (test qlez=1256) [facility] [address] POCT-GLUCOSE [id number] 11:43:00 Test Item Value Reference Range Comments POC-GLUCOSE METER (BEAKER) 182 mg/dL 70-110 TESTED AT [address] (test wjjc=9242) [facility] [address] POCT-GLUCOSE [id number] 06:58:00 Test Item Value Reference Range Comments POC-GLUCOSE METER (BEAKER) 186 mg/dL 70-110 TESTED AT [address] (test vabg=3698) [facility] [address] POCT-GLUCOSE [id number] 21:22:00 Test Item Value Reference Range Comments POC-GLUCOSE METER (BEAKER) 230 mg/dL 70-110 TESTED AT [address] (test ilet=5444) [facility] [address] POCT-GLUCOSE [id number] 16:28:00 Test Item Value Reference Range Comments POC-GLUCOSE METER (BEAKER) 218 mg/dL 70-110 TESTED AT [address] (test hxcf=0135) [facility] [address] POCT-GLUCOSE [id number] 11:28:00 Test Item Value Reference Range Comments POC-GLUCOSE METER (BEAKER) 215 mg/dL 70-110 TESTED AT [address] (test siqe=2072) [facility] [address] POCT-GLUCOSE [id number] 06:58:00 Test Item Value Reference Range Comments POC-GLUCOSE METER (BEAKER) 197 mg/dL 70-110 TESTED AT [address] (test qohd=2951) [facility] [address] POCT-GLUCOSE [id number] 21:35:00 Test Item Value Reference Range Comments POC-GLUCOSE METER (BEAKER) 266 mg/dL 70-110 TESTED AT [address] (test nuhs=3832) [facility] [address] POCT-GLUCOSE [id number] 17:08:00 Test Item Value Reference Range Comments POC-GLUCOSE METER (BEAKER) 189 mg/dL 70-110 TESTED AT [address] (test ywge=6431) [facility] [address] POCT-GLUCOSE [id number] 11:44:00 Test Item Value Reference Range Comments POC-GLUCOSE METER (BEAKER) 223 mg/dL 70-110 TESTED AT [address] (test otrd=3230) [facility] [address] POCT-GLUCOSE [id number] 07:21:00 Test Item Value Reference Range Comments POC-GLUCOSE METER (BEAKER) 173 mg/dL 70-110 TESTED AT [facility] [address] (test zpzt=5043) [facility] [address] RAD, CHEST, 1 VIEW, NON [id number] 07:12:00Reason for exam:->pulm edemaShould this be performed at the bedside?->YesFINAL REPORT CLINICAL HISTORY: pulm edema TECHNIQUE: 1 view of the chest. COMPARISON : 09/06/2018 IMPRESSION: Right central line has been removed. There is decreased bibasilar atelectasis. There is no significant appearing pleural fluid. The cardiomediastinal silhouette is magnified by technique. Signed: Yimi Harkins Verified Date/Time: 09/07/2018 07:12:01 Reading Location : [facility] Radiology Reading Room [id number] 06:13:00 Test Item Value Reference Range Comments PHOSPHORUS (BEAKER) (test mgen=070) 2.0 mg/dL 2.3-4.7 [id number] 06:13:00 Test Item Value Reference Range Comments MAGNESIUM (BEAKER) (test lbug=316) 2.2 mg/dL 1.6-2.6 COMPREHENSIVE METABOLIC [id number] 06:13:00 Test Item Value Reference Range Comments TOTAL PROTEIN (BEAKER) 6.1 gm/dL 6.0-8.3 (test ozru=499) ALBUMIN (BEAKER) (test 3.3 g/dL 3.5-5.0 uxmx=8847) ALKALINE PHOSPHATASE 44 U/L 40-150 (BEAKER) (test iojo=681) BILIRUBIN TOTAL (BEAKER) 0.6 mg/dL 0.2-1.2 (test jmaw=412) SODIUM (BEAKER) (test 141 meq/L 136-145 dhak=159) POTASSIUM (BEAKER) (test 3.5 meq/L 3.5-5.1 qdhg=283) CHLORIDE (BEAKER) (test 109 meq/L 98-107 lwcw=345) CO2 (BEAKER) (test 24 meq/L 22-29 whie=160) BLOOD UREA NITROGEN 11 mg/dL 7-21 (BEAKER) (test qecw=395) CREATININE (BEAKER) (test 0.63 mg/dL 0.57-1.25 jnbz=442) GLUCOSE RANDOM (BEAKER) 134 mg/dL 70-105 (test xlxm=445) CALCIUM (BEAKER) (test 8.3 mg/dL 8.4-10.2 notk=461) AST (SGOT) (BEAKER) (test 21 U/L 5-34 ooec=873) ALT (SGPT) (BEAKER) (test 12 U/L 6-55 zeop=423) EGFR (BEAKER) (test 128 mL/min/1.73 sq ESTIMATED GFR IS NOT grvn=7395) m ACCURATE CREATININE CLEARANCE IN PREDICTING GLOMERULAR FILTRATION RATE. ESTIMATED GFR IS NOT APPLICABLE FOR DIALYSIS PATIENTS. CBC W/PLT COUNT & AUTO [id number] 05:22:00 Test Item Value Reference Range Comments WHITE BLOOD CELL COUNT (BEAKER) (test dzld=202) 6.9 K/ L 3.5-10.5 RED BLOOD CELL COUNT (BEAKER) (test ilof=367) 3.83 M/ L 4.63-6.08 HEMOGLOBIN (BEAKER) (test pewg=365) 11.8 GM/DL 13.7-17.5 HEMATOCRIT (BEAKER) (test lmjg=846) 35.0 % 40.1-51.0 MEAN CORPUSCULAR VOLUME (BEAKER) (test zvcv=464) 91.4 fL 79.0-92.2 MEAN CORPUSCULAR HEMOGLOBIN (BEAKER) (test 30.8 pg 25.7-32.2 essh=470) MEAN CORPUSCULAR HEMOGLOBIN CONC (BEAKER) (test 33.7 GM/DL 32.3-36.5 ocvd=314) RED CELL DISTRIBUTION WIDTH (BEAKER) (test 13.3 % 11.6-14.4 afap=262) PLATELET COUNT (BEAKER) (test hwbl=267) 237 K/CU MM 150-450 MEAN PLATELET VOLUME (BEAKER) (test zfqk=960) 9.8 fL 9.4-12.4 NUCLEATED RED BLOOD CELLS (BEAKER) (test 0 /100 WBC 0-0 wesu=116) NEUTROPHILS RELATIVE PERCENT (BEAKER) (test 61 % whtr=136) LYMPHOCYTES RELATIVE PERCENT (BEAKER) (test 29 % hpmg=990) MONOCYTES RELATIVE PERCENT (BEAKER) (test 8 % ekzk=644) EOSINOPHILS RELATIVE PERCENT (BEAKER) (test 1 % fgns=857) BASOPHILS RELATIVE PERCENT (BEAKER) (test 0 % bpas=761) NEUTROPHILS ABSOLUTE COUNT (BEAKER) (test 4.21 K/ L 1.78-5.38 gtdl=821) LYMPHOCYTES ABSOLUTE COUNT (BEAKER) (test 1.98 K/ L 1.32-3.57 nfwf=664) MONOCYTES ABSOLUTE COUNT (BEAKER) (test 0.54 K/ L 0.30-0.82 engu=969) EOSINOPHILS ABSOLUTE COUNT (BEAKER) (test 0.07 K/ L 0.04-0.54 wryr=882) BASOPHILS ABSOLUTE COUNT (BEAKER) (test 0.03 K/ L 0.01-0.08 ufqc=343) IMMATURE GRANULOCYTES-RELATIVE PERCENT (BEAKER) 1 % 0-1 (test ltta=4155) POCT-GLUCOSE [id number] 21:22:00 Test Item Value Reference Range Comments POC-GLUCOSE METER (BEAKER) 223 mg/dL 70-110 TESTED AT [address] (test dlcv=4466) [place] [address] POCT-GLUCOSE [id number] 17:32:00 Test Item Value Reference Range Comments POC-GLUCOSE METER (BEAKER) 204 mg/dL 70-110 TESTED AT [address] (test fuhg=4682) [place] [address] MISCELLANEOUS LAB [id number] 14:45:00 Test Item Value Reference Range Comments SCAN RESULT (test oesl=[id number]) POCT-GLUCOSE [id number] 13:12:00 Test Item Value Reference Range Comments POC-GLUCOSE METER (BEAKER) 224 mg/dL 70-110 TESTED AT [address] (test wkuj=0986) [place] [id number] POCT-GLUCOSE [id number] 07:36:00 Test Item Value Reference Range Comments POC-GLUCOSE METER (BEAKER) 173 mg/dL 70-110 TESTED AT [address] (test jgzf=5530) [place] [id number] RAD, CHEST, 1 VIEW, NON [id number] 07:19:00Reason for exam:->pulm edemaShould this be performed [...] MDReport Verified Date/Time: 09/06/2018 07:19:50 Reading Location: [facility] Radiology Reading Room COMPREHENSIVE METABOLIC [id number] 05:49:00 Test Item Value Reference Range Comments TOTAL PROTEIN (BEAKER) 5.6 gm/dL 6.0-8.3 (test obpl=746) ALBUMIN (BEAKER) (test 3.0 g/dL 3.5-5.0 kkwl=0628) ALKALINE PHOSPHATASE 38 U/L 40-150 (BEAKER) (test gcwy=401) BILIRUBIN TOTAL (BEAKER) 0.5 mg/dL 0.2-1.2 (test ttbq=590) SODIUM (BEAKER) (test 142 meq/L 136-145 mmzg=682) POTASSIUM (BEAKER) (test 3.4 meq/L 3.5-5.1 lxmz=860) CHLORIDE (BEAKER) (test 112 meq/L 98-107 loin=934) CO2 (BEAKER) (test 24 meq/L 22-29 gjgl=509) BLOOD UREA NITROGEN 14 mg/dL 7-21 (BEAKER) (test wpfl=047) CREATININE (BEAKER) (test 0.59 mg/dL 0.57-1.25 yjqc=667) GLUCOSE RANDOM (BEAKER) 147 mg/dL 70-105 (test oeud=313) CALCIUM (BEAKER) (test 7.7 mg/dL 8.4-10.2 ntze=477) AST (SGOT) (BEAKER) (test 16 U/L 5-34 zqii=000) ALT (SGPT) (BEAKER) (test 10 U/L 6-55 czjo=414) EGFR (BEAKER) (test 138 mL/min/1.73 sq ESTIMATED GFR IS NOT hmln=0873) m ACCURATE CREATININE CLEARANCE IN PREDICTING GLOMERULAR FILTRATION RATE. ESTIMATED GFR IS NOT APPLICABLE FOR DIALYSIS PATIENTS. [id number] 05:47:00 Test Item Value Reference Range Comments PHOSPHORUS (BEAKER) (test qbre=937) 1.9 mg/dL 2.3-4.7 [id number] 05:47:00 Test Item Value Reference Range Comments MAGNESIUM (BEAKER) (test atnf=316) 2.0 mg/dL 1.6-2.6 CBC W/PLT COUNT & AUTO [id number] 05:34:00 Test Item Value Reference Range Comments WHITE BLOOD CELL COUNT (BEAKER) (test kreo=961) 6.7 K/ L 3.5-10.5 RED BLOOD CELL COUNT (BEAKER) (test fmlb=089) 3.80 M/ L 4.63-6.08 HEMOGLOBIN (BEAKER) (test qcou=584) 11.6 GM/DL 13.7-17.5 HEMATOCRIT (BEAKER) (test tjhw=034) 34.9 % 40.1-51.0 MEAN CORPUSCULAR VOLUME (BEAKER) (test stoc=389) 91.8 fL 79.0-92.2 MEAN CORPUSCULAR HEMOGLOBIN (BEAKER) (test 30.5 pg 25.7-32.2 ciuw=040) MEAN CORPUSCULAR HEMOGLOBIN CONC (BEAKER) (test 33.2 GM/DL 32.3-36.5 hgdk=828) RED CELL DISTRIBUTION WIDTH (BEAKER) (test 13.2 % 11.6-14.4 wuyl=843) PLATELET COUNT (BEAKER) (test hqmu=574) 215 K/CU MM 150-450 MEAN PLATELET VOLUME (BEAKER) (test sbaw=557) 9.2 fL 9.4-12.4 NUCLEATED RED BLOOD CELLS (BEAKER) (test 0 /100 WBC 0-0 eaoj=085) NEUTROPHILS RELATIVE PERCENT (BEAKER) (test 68 % xfye=252) LYMPHOCYTES RELATIVE PERCENT (BEAKER) (test 22 % hzqk=370) MONOCYTES RELATIVE PERCENT (BEAKER) (test 7 % nktd=994) EOSINOPHILS RELATIVE PERCENT (BEAKER) (test 2 % wvdu=626) BASOPHILS RELATIVE PERCENT (BEAKER) (test 0 % vzly=175) NEUTROPHILS ABSOLUTE COUNT (BEAKER) (test 4.53 K/ L 1.78-5.38 xjnr=860) LYMPHOCYTES ABSOLUTE COUNT (BEAKER) (test 1.50 K/ L 1.32-3.57 cuox=614) MONOCYTES ABSOLUTE COUNT (BEAKER) (test 0.47 K/ L 0.30-0.82 smxt=648) EOSINOPHILS ABSOLUTE COUNT (BEAKER) (test 0.13 K/ L 0.04-0.54 ykww=465) BASOPHILS ABSOLUTE COUNT (BEAKER) (test 0.02 K/ L 0.01-0.08 uxmk=701) IMMATURE GRANULOCYTES-RELATIVE PERCENT (BEAKER) 1 % 0-1 (test ofjh=0867) POCT-GLUCOSE [id number] 22:53:00 Test Item Value Reference Range Comments POC-GLUCOSE METER (BEAKER) 206 mg/dL 70-110 TESTED AT [facility] [address] [place] [address] (test czjy=5171) [facility] [address] MR, SPINE, LUMBAR, [id number] 18:10:00FINAL REPORT MRI lumbar spine with and [...] and left foraminal disc protrusions. There is neuu-ic-xehvixkm narrowing of the central canal, and left [...] several levels as described. Signed: Galen Pride MDReport Verified Date/Time: 09/05/2018 18:10:50 Reading Location: [address] Neuro Reading Room POCT-GLUCOSE [id number] 18:07:00 Test Item Value Reference Range Comments POC-GLUCOSE METER (BEAKER) 183 mg/dL 70-110 TESTED AT [address] (test ozrv=4953) [place] [address] POCT-GLUCOSE [id number] 11:53:00 Test Item Value Reference Range Comments POC-GLUCOSE METER (BEAKER) 324 mg/dL 70-110 Notified MILLA CARPENTER/TESTED AT [facility] (test qimv=1378) [address] [place] [address] [id number] 10:47:00 Test Item Value Reference Range Comments LIPASE (BEAKER) (test yydn=852) 141 U/L 8-78 POCT-GLUCOSE [id number] 07:43:00 Test Item Value Reference Range Comments POC-GLUCOSE METER (BEAKER) 176 mg/dL 70-110 TESTED AT [address] (test mfst=4802) [place] [address] RAD, CHEST, 1 VIEW, NON [id number] 05:49:00Reason for exam:->pulm edemaShould this be performed at the bedside?->YesFINAL REPORT RAD, CHEST, 1 VIEW, NON DEPT INDICATION: pulm edema COMPARISON: Prior day's exam FINDINGS: Portable frontal view of the chest. IMPRESSION: Support Lines: Stable. Lungs and pleura: Unchanged airspace and pleural opacities. No pneumothorax.Heart and mediastinum: Stable contours. Additional findings: None. Signed: Ozzie Avila Verified Date/Time: 09/05/2018 05:49:04 Reading Location: [facility] C013T Transitional Reading Room [id number] 04:38 :00 Test Item Value Reference Range Comments PHOSPHORUS (BEAKER) (test ofby=888) 2.6 mg/dL 2.3-4.7 [id number] 04:38:00 Test Item Value Reference Range Comments MAGNESIUM (BEAKER) (test sbur=567) 2.2 mg/dL 1.6-2.6 COMPREHENSIVE METABOLIC [id number] 04:38:00 Test Item Value Reference Range Comments TOTAL PROTEIN (BEAKER) 6.1 gm/dL 6.0-8.3 (test plnl=999) ALBUMIN (BEAKER) (test 3.3 g/dL 3.5-5.0 smrp=2801) ALKALINE PHOSPHATASE 42 U/L 40-150 (BEAKER) (test vtra=462) BILIRUBIN TOTAL (BEAKER) 0.6 mg/dL 0.2-1.2 (test osum=270) SODIUM (BEAKER) (test 144 meq/L 136-145 gnvj=193) POTASSIUM (BEAKER) (test 3.9 meq/L 3.5-5.1 kpxs=866) CHLORIDE (BEAKER) (test 111 meq/L 98-107 kiuq=187) CO2 (BEAKER) (test 26 meq/L 22-29 bsyb=677) BLOOD UREA NITROGEN 22 mg/dL 7-21 (BEAKER) (test prjr=070) CREATININE (BEAKER) (test 0.72 mg/dL 0.57-1.25 glrr=886) GLUCOSE RANDOM (BEAKER) 165 mg/dL 70-105 (test gogs=886) CALCIUM (BEAKER) (test 8.4 mg/dL 8.4-10.2 hvxh=714) AST (SGOT) (BEAKER) (test 16 U/L 5-34 snna=965) ALT (SGPT) (BEAKER) (test 10 U/L 6-55 jimx=914) EGFR (BEAKER) (test 110 mL/min/1.73 sq ESTIMATED GFR IS NOT ksew=1570) m ACCURATE CREATININE CLEARANCE IN PREDICTING GLOMERULAR FILTRATION RATE. ESTIMATED GFR IS NOT APPLICABLE FOR DIALYSIS PATIENTS. CBC W/PLT COUNT & AUTO [id number] 04:16:00 Test Item Value Reference Range Comments WHITE BLOOD CELL COUNT (BEAKER) (test zmgr=744) 10.5 K/ L 3.5-10.5 RED BLOOD CELL COUNT (BEAKER) (test ixuo=598) 3.87 M/ L 4.63-6.08 HEMOGLOBIN (BEAKER) (test xcoa=001) 11.8 GM/DL 13.7-17.5 HEMATOCRIT (BEAKER) (test wepu=754) 36.0 % 40.1-51.0 MEAN CORPUSCULAR VOLUME (BEAKER) (test fmcr=196) 93.0 fL 79.0-92.2 MEAN CORPUSCULAR HEMOGLOBIN (BEAKER) (test 30.5 pg 25.7-32.2 ztgx=840) MEAN CORPUSCULAR HEMOGLOBIN CONC (BEAKER) (test 32.8 GM/DL 32.3-36.5 pfwm=349) RED CELL DISTRIBUTION WIDTH (BEAKER) (test 13.5 % 11.6-14.4 lawn=431) PLATELET COUNT (BEAKER) (test vpje=336) 263 K/CU MM 150-450 MEAN PLATELET VOLUME (BEAKER) (test vqfz=099) 9.5 fL 9.4-12.4 NUCLEATED RED BLOOD CELLS (BEAKER) (test 0 /100 WBC 0-0 pxfj=056) NEUTROPHILS RELATIVE PERCENT (BEAKER) (test 74 % moef=100) LYMPHOCYTES RELATIVE PERCENT (BEAKER) (test 18 % xanh=252) MONOCYTES RELATIVE PERCENT (BEAKER) (test 5 % eptz=653) EOSINOPHILS RELATIVE PERCENT (BEAKER) (test 2 % azhj=394) BASOPHILS RELATIVE PERCENT (BEAKER) (test 0 % lrsr=926) NEUTROPHILS ABSOLUTE COUNT (BEAKER) (test 7.70 K/ L 1.78-5.38 dowj=992) LYMPHOCYTES ABSOLUTE COUNT (BEAKER) (test 1.89 K/ L 1.32-3.57 bcfu=896) MONOCYTES ABSOLUTE COUNT (BEAKER) (test 0.56 K/ L 0.30-0.82 bwag=060) EOSINOPHILS ABSOLUTE COUNT (BEAKER) (test 0.18 K/ L 0.04-0.54 fbhw=454) BASOPHILS ABSOLUTE COUNT (BEAKER) (test 0.04 K/ L 0.01-0.08 oneh=143) IMMATURE GRANULOCYTES-RELATIVE PERCENT (BEAKER) 1 % 0-1 (test utqy=5291) U/S, ABDOMINAL, [id number] 02:32:00Reason for exam:->abd distension, nausea,vomittingShould this be [...] Ozzie Avila Verified Date/Time: 02:32:11 Reading Location: [address] Transitional Reading Room Electronically signed by: Hitesh ZARATE 09/05/2018 02:32 AMCT, [id number] 21:34:00Elevated lipaseFINAL REPORT CLINICAL HISTORY: Nausea, vomiting, [...] underlying lesion is recommended. Signed: Blair Dang MDReport Verified Date/Time: 09/04/2018 21: 34:29 Reading Location: [address] Reading Room POCT- GLUCOSE [id number] 21:30:00 Test Item Value Reference Range Comments POC-GLUCOSE METER (BEAKER) 159 mg/dL 70-110 TESTED AT [address] (test uvdl=4185) [facility] [address] VANCOMYCIN LEVEL, [id number] 21:17:00 Test Item Value Reference Range Comments VANCOMYCIN TROUGH (BEAKER) (test oukn=805) 9.0 ug/mL 10.0-20.0 Please draw vancomycin trough level 09/04 at 2030 hold if trough >20POCT- GLUCOSE [id number] 18:32:00 Test Item Value Reference Range Comments POC-GLUCOSE METER (BEAKER) 174 mg/dL 70-110 TESTED AT [address] (test wmzq=1251) [place] [address] NEEDLE EMG, 4 [id number] 16:22:00Reason for exam:->r/o ALSBaylHollywood [facility] CenterNeurophysiology DepartmentELECTROMYOGRAPHY - NERVE CONDUCTION STUDY [address] [place] [address] [address] [place], [place] [id number] Name : Garrison Burnett : Date of : 1955 Gender : Male Date of Exam: 09/04/2018 3:58 PMReferring Physician:Kyrie Singhxabren Physician: Erica Henriquez Patient History: Patient is [...] mm Median.LWrist 4.0 ms 4.6 ms 4 ⿒V Digit II (index finger)-Wrist 4.0 ms 130 mm 33 m/sUlnar.LWrist NR NR NR Digit V (little finger)-Wrist 110 mm Radial.LForearm 1.1 ms 2.0 ms 23 ⇧V Anatomical snuff box-Forearm 1.1 ms 110 mm 55 m/sSural.RLower leg 2.4 ms 3.5 ms 5 働V Ankle-Lower leg 2.4 ms 140 mm 40 m/sMedian.RWrist 3.8 ms 4.5 ms 8 蹒V Digit II (index finger)-Wrist 3.8 ms 130 mm 34 m/sUlnar.RWrist NR NR NR Digit V (little finger)- Wrist 110 mm Radial.RForearm 1.9 ms 2.5 ms 18 郜V Anatomical snuff box-Forearm 1.9 ms 95 mm [...] Henriquez M.D. RAD, CHEST, 1 VIEW, NON [id number] 10:58:00Reason for exam:->pulm edemaShould this be performed [...] Pride Verified Date/Time: 09/04/2018 10:58:17 Reading Location: [facility] Radiology Reading Room [id number] 10:53:00 Test Item Value Reference Range Comments LIPASE (BEAKER) (test acan=850) 122 U/L 8-78 [id number] 10:53:00 Test Item Value Reference Range Comments AMYLASE (BEAKER) (test pdrc=204) 86 U/L 25-125 RAD, ABDOMEN/KUB, 1 VIEW [id number] 10:34:00Reason for exam:->abdominal distensionShould this be performed [...] Pride Verified Date/Time: 09/04/2018 10:34:31 Reading Location: [facility] Radiology Reading Room Electronically signed by: GALEN PRIDE M.D. on09/04/2018 10:34 AMBLOOD [id number] 10:01:00 Test Item Value Reference Range Comments CULTURE (BEAKER) (test waqv=1092) No growth in 5 days POCT-GLUCOSE [id number] 08:11:00 Test Item Value Reference Range Comments POC-GLUCOSE METER (BEAKER) 233 mg/dL 70-110 TESTED AT [facility] [address] [facility] (test rwdw=1539) [place] [address] BLOOD [id number] 05:01:00 Test Item Value Reference Range Comments CULTURE (BEAKER) (test jutv=9243) No growth in 5 days [id number] 03:50:00 Test Item Value Reference Range Comments PHOSPHORUS (BEAKER) (test xtfr=655) 2.5 mg/dL 2.3-4.7 [id number] 03:50:00 Test Item Value Reference Range Comments MAGNESIUM (BEAKER) (test wetm=388) 2.2 mg/dL 1.6-2.6 COMPREHENSIVE METABOLIC [id number] 03:50:00 Test Item Value Reference Range Comments TOTAL PROTEIN (BEAKER) 7.1 gm/dL 6.0-8.3 (test twxv=634) ALBUMIN (BEAKER) (test 3.7 g/dL 3.5-5.0 zztf=2176) ALKALINE PHOSPHATASE 46 U/L 40-150 (BEAKER) (test rzym=632) BILIRUBIN TOTAL (BEAKER) 0.6 mg/dL 0.2-1.2 (test resm=649) SODIUM (BEAKER) (test 143 meq/L 136-145 dusi=855) POTASSIUM (BEAKER) (test 3.8 meq/L 3.5-5.1 kayp=132) CHLORIDE (BEAKER) (test 106 meq/L 98-107 hnrt=391) CO2 (BEAKER) (test 27 meq/L 22-29 idkb=145) BLOOD UREA NITROGEN 20 mg/dL 7-21 (BEAKER) (test fgtu=834) CREATININE (BEAKER) (test 0.76 mg/dL 0.57-1.25 ryaz=340) GLUCOSE RANDOM (BEAKER) 219 mg/dL 70-105 (test jekq=635) CALCIUM (BEAKER) (test 9.1 mg/dL 8.4-10.2 oskd=278) AST (SGOT) (BEAKER) (test 17 U/L 5-34 igyl=977) ALT (SGPT) (BEAKER) (test 14 U/L 6-55 wxtb=967) EGFR (BEAKER) (test 103 mL/min/1.73 sq ESTIMATED GFR IS NOT gtda=4290) m ACCURATE CREATININE CLEARANCE IN PREDICTING GLOMERULAR FILTRATION RATE. ESTIMATED GFR IS NOT APPLICABLE FOR DIALYSIS PATIENTS. CBC W/PLT COUNT & AUTO [id number] 03:33:00 Test Item Value Reference Range Comments WHITE BLOOD CELL COUNT (BEAKER) (test isnp=386) 13.5 K/ L 3.5-10.5 RED BLOOD CELL COUNT (BEAKER) (test kymb=770) 4.28 M/ L 4.63-6.08 HEMOGLOBIN (BEAKER) (test lvcv=132) 13.3 GM/DL 13.7-17.5 HEMATOCRIT (BEAKER) (test nxxs=852) 39.0 % 40.1-51.0 MEAN CORPUSCULAR VOLUME (BEAKER) (test zkwk=085) 91.1 fL 79.0-92.2 MEAN CORPUSCULAR HEMOGLOBIN (BEAKER) (test 31.1 pg 25.7-32.2 uzqk=784) MEAN CORPUSCULAR HEMOGLOBIN CONC (BEAKER) (test 34.1 GM/DL 32.3-36.5 bpfc=302) RED CELL DISTRIBUTION WIDTH (BEAKER) (test 13.4 % 11.6-14.4 gnrz=940) PLATELET COUNT (BEAKER) (test danc=468) 270 K/CU MM 150-450 MEAN PLATELET VOLUME (BEAKER) (test kqpr=310) 9.4 fL 9.4-12.4 NUCLEATED RED BLOOD CELLS (BEAKER) (test 0 /100 WBC 0-0 vlay=959) NEUTROPHILS RELATIVE PERCENT (BEAKER) (test 84 % mllq=068) LYMPHOCYTES RELATIVE PERCENT (BEAKER) (test 9 % lvtl=436) MONOCYTES RELATIVE PERCENT (BEAKER) (test 5 % pktt=729) EOSINOPHILS RELATIVE PERCENT (BEAKER) (test 1 % gwwo=245) BASOPHILS RELATIVE PERCENT (BEAKER) (test 0 % asvv=410) NEUTROPHILS ABSOLUTE COUNT (BEAKER) (test 11.40 K/ L 1.78-5.38 qsle=210) LYMPHOCYTES ABSOLUTE COUNT (BEAKER) (test 1.22 K/ L 1.32-3.57 dkrf=964) MONOCYTES ABSOLUTE COUNT (BEAKER) (test 0.71 K/ L 0.30-0.82 tmtq=185) EOSINOPHILS ABSOLUTE COUNT (BEAKER) (test 0.08 K/ L 0.04-0.54 mlns=737) BASOPHILS ABSOLUTE COUNT (BEAKER) (test 0.04 K/ L 0.01-0.08 eshm=615) IMMATURE GRANULOCYTES-RELATIVE PERCENT (BEAKER) 1 % 0-1 (test ywqr=0032) POCT-GLUCOSE [id number] 22:18:00 Test Item Value Reference Range Comments POC-GLUCOSE METER (BEAKER) 262 mg/dL 70-110 TESTED AT [facility] [address] [facility] (test ulra=9441) [facility] [address] C. DIFFICILE GDH [id number] 20:32:00 Test Item Value Reference Range Comments CDT TOXIN (test Negative Negative bnfm=[id number]) CDT GDH ANTIGEN (test Negative Negative No indication of Clostridium bzet=[id number]) difficile infection and no colonization. Discontinue enteric isolation and therapy. Testing performed by [employer] Rapid Cassette Assay. For GDH, published sensitivity of the assay is 98.7% compared to cytotoxicity testing. For Toxin AB, published sensitivity is 87.8% and specificity 99.4% compared to cytotoxicity testing.Verification of kit performance was done by the [facility] Microbiology Lab prior to clinical use.RAD, ABDOMEN/KUB, 1 VIEW [id number] 18: 40:00Reason for exam:->abdominal distensionShould this be performed at the bedside?->YesFINAL REPORT Comparison: 08/30/2018 TECHNIQUE: Frontal images of the abdomen Discussion: Abdomen: Bowel gas pattern is nonobstructed. There is no free intraperitoneal air. No soft tissue abnormalities. No acute skeletal abnormality. Right upper: Cholecystectomy clips are seen.Impression: 1. Nonspecific bowel gas pattern. Signed: Shailesh Hardingeport Verified Date/Time: 09/03/2018 18:40:53 Reading Location: [facility] Reading Room Electronically signed by: SHAILESH HARDING M.D. on 2017 06:40 PMPOCT-GLUCOSE [id number] 17:23:00 Test Item Value Reference Range Comments POC-GLUCOSE METER (BEAKER) 215 mg/dL 70-110 TESTED AT [facility] [address] (test lzbn=4763) [facility] [address] BLOOD GAS, [id number] 17:05:00 Test Item Value Reference Range Comments PH ARTERIAL (BEAKER) (test ihry=777) 7.49 7.35-7.45 PCO2 ARTERIAL (BEAKER) (test woak=686) 37 mmHg 35-45 PO2 ARTERIAL (BEAKER) (test mjzo=336) 69 mmHg 80-90 O2 SATURATION ARTERIAL (BEAKER) (test onuf=391) 95.1 % 96.0-97.0 HCO3 ARTERIAL (BEAKER) (test jzdi=715) 27 mmol/L 21-29 BASE EXCESS ARTERIAL (BEAKER) (test qkar=532) 3.8 mmol/L -2.0-3.0 PATIENT TEMPERATURE (BEAKER) (test auca=4514) 36.9 C FIO2 (BEAKER) (test htdx=2068) 28.0 % BLOOD GAS, [id number] 16:42:00 Test Item Value Reference Range Comments PH ARTERIAL (BEAKER) (test xulm=000) 7.45 7.35-7.45 PCO2 ARTERIAL (BEAKER) (test xfoy=548) 39 mmHg 35-45 PO2 ARTERIAL (BEAKER) (test umwn=649) 40 mmHg 80-90 O2 SATURATION ARTERIAL (BEAKER) (test fuhy=814) 78.0 % 96.0-97.0 HCO3 ARTERIAL (BEAKER) (test ruug=113) 27 mmol/L 21-29 BASE EXCESS ARTERIAL (BEAKER) (test avml=152) 2.6 mmol/L -2.0-3.0 PATIENT TEMPERATURE (BEAKER) (test aovj=5316) 36.7 C FIO2 (BEAKER) (test azep=9036) 28.0 % [id number] 15:06:00Medical Cytology Report Case: [id number] Authorizing Provider: Nannette Marie NP Collected: 08/31/2018 1146 Ordering Location: [place] [address] CCU Received: 09/03/2018 0947 Pathologist: Shannon Norman Specimen: Lung, Right Middle Lobe RIGHT MIDDLE LOBE LUNG, BAL ( CYTOSPINS): - NEGATIVE FOR MALIGNANCY Signing Pathologist Direct Phone Line: [phone] signed by Shannon Norman on 09/03/2018 at 3:06 [id number], PneumoniaRIGHT MIDDLE LOBE LUNG BALPrepared 4 cytospins from 20 ml colorless fluidCollected: [id number]: [id number] [facility], Department of Pathology, [address] [place] [id number], [facility], [facility] of [facility], [address] [place] [address] , [facility], Department of Pathology, [address] [place] [address], FMEJ-GLUCOSE [id number] 11:22:00 Test Item Value Reference Range Comments POC-GLUCOSE METER (BEAKER) 224 mg/dL 70-110 TESTED AT [address] (test xcht=7721) [place] [address] RAD, CHEST, 1 VIEW, NON [id number] 06:16:00Reason for exam:->ETT placementShould this be performed [...] findings: None. Signed: Ozzie Avila Verified Date/Time: 09/03/2018 06:16 :06 Reading Location: [address] Reading Room [id number] 05:13:00 Test Item Value Reference Range Comments MAGNESIUM (BEAKER) (test yxhs=025) 2.0 mg/dL 1.6-2.6 BASIC METABOLIC [id number] 05:13:00 Test Item Value Reference Range Comments SODIUM (BEAKER) (test 142 meq/L 136-145 kqmy=704) POTASSIUM (BEAKER) (test 4.1 meq/L 3.5-5.1 rcsw=558) CHLORIDE (BEAKER) (test 108 meq/L 98-107 ovfc=412) CO2 (BEAKER) (test 21 meq/L 22-29 zoiu=088) BLOOD UREA NITROGEN 20 mg/dL 7-21 (BEAKER) (test mafy=075) CREATININE (BEAKER) (test 0.78 mg/dL 0.57-1.25 tlyp=707) GLUCOSE RANDOM (BEAKER) 213 mg/dL 70-105 (test gsls=004) CALCIUM (BEAKER) (test 9.5 mg/dL 8.4-10.2 xvih=567) EGFR (BEAKER) (test 100 mL/min/1.73 sq m ESTIMATED GFR IS NOT iadm=1481) ACCURATE CREATININE CLEARANCE IN PREDICTING GLOMERULAR FILTRATION RATE. ESTIMATED GFR IS NOT APPLICABLE FOR DIALYSIS PATIENTS. CBC W/PLT COUNT & AUTO [id number] 04:59:00 Test Item Value Reference Range Comments WHITE BLOOD CELL COUNT (BEAKER) (test qxtt=459) 14.4 K/ L 3.5-10.5 RED BLOOD CELL COUNT (BEAKER) (test zekj=799) 4.35 M/ L 4.63-6.08 HEMOGLOBIN (BEAKER) (test wwpo=391) 13.2 GM/DL 13.7-17.5 HEMATOCRIT (BEAKER) (test idzd=031) 39.2 % 40.1-51.0 MEAN CORPUSCULAR VOLUME (BEAKER) (test ahpe=710) 90.1 fL 79.0-92.2 MEAN CORPUSCULAR HEMOGLOBIN (BEAKER) (test 30.3 pg 25.7-32.2 yokg=657) MEAN CORPUSCULAR HEMOGLOBIN CONC (BEAKER) (test 33.7 GM/DL 32.3-36.5 bgfy=425) RED CELL DISTRIBUTION WIDTH (BEAKER) (test 13.3 % 11.6-14.4 sqfk=426) PLATELET COUNT (BEAKER) (test bjgs=531) 254 K/CU MM 150-450 MEAN PLATELET VOLUME (BEAKER) (test txhh=009) 9.5 fL 9.4-12.4 NUCLEATED RED BLOOD CELLS (BEAKER) (test 0 /100 WBC 0-0 pstt=364) NEUTROPHILS RELATIVE PERCENT (BEAKER) (test 85 % owbe=053) LYMPHOCYTES RELATIVE PERCENT (BEAKER) (test 8 % ymut=660) MONOCYTES RELATIVE PERCENT (BEAKER) (test 5 % hsqk=123) EOSINOPHILS RELATIVE PERCENT (BEAKER) (test 1 % psqs=047) BASOPHILS RELATIVE PERCENT (BEAKER) (test 0 % zydp=519) NEUTROPHILS ABSOLUTE COUNT (BEAKER) (test 12.25 K/ L 1.78-5.38 pgln=870) LYMPHOCYTES ABSOLUTE COUNT (BEAKER) (test 1.21 K/ L 1.32-3.57 oqtn=252) MONOCYTES ABSOLUTE COUNT (BEAKER) (test 0.70 K/ L 0.30-0.82 jolw=766) EOSINOPHILS ABSOLUTE COUNT (BEAKER) (test 0.10 K/ L 0.04-0.54 blng=206) BASOPHILS ABSOLUTE COUNT (BEAKER) (test 0.03 K/ L 0.01-0.08 qgpb=285) IMMATURE GRANULOCYTES-RELATIVE PERCENT (BEAKER) 1 % 0-1 (test cqty=4814) MR, SPINE, CERVICAL, [id number] 00:54:00FINAL REPORT MR Cervical spine with and [...] degenerative changes asdescribed above. Signed: Ozzie Avila MDReport Verified Date/ Time: 09/03/2018 00:54:27 Reading Location: [facility] C0[facility] Transitional Reading Room VANCOMYCIN LEVEL, [id number] 00:52:00 Test Item Value Reference Range Comments VANCOMYCIN TROUGH (BEAKER) (test ozhn=353) 8.0 ug/mL 10.0-20.0 MR, MRA, NECK, WITHOUT IV [id number] 00:45:00FINAL REPORT CLINICAL HISTORY: r/o ALS TECHNIQUE: MRI of the brain utilizing axial T2, FLAIR, GRE, DWI; sagittal and coronal T1-weighted images as well as postcontrast T1 weighted images. MRA of the head utilizing 3-D zrvu-la-pywrxr technique, with 3-D reconstructions. MRA of the [...] Correlate clinically. No evidence for a major [place] proximal branch vessel occlusion. Intracranial atherosclerosis results in multifocal mild stenosis of the bilateral M2 segments of the middle cerebral arteries. 60% stenosis of the proximal left internal carotid artery by NASCET criteria No evidence of hemodynamically significant stenosis in the right cervical carotid or vertebral arteries by NASCET criteria. Signed: Ozzie Avila MDReport Verified Date/Time: 09/03/2018 00:45:16 Reading Location: [address] Transitional Reading Room MR, BRAIN, [id number] 00:45:00FINAL REPORT CLINICAL HISTORY: r/o ALS TECHNIQUE: MRI of the brain utilizing axial T2, FLAIR, GRE, DWI; sagittal and coronal T1-weighted images as well as postcontrast T1 weighted images. MRA of the head utilizing 3- D tvut-ik-ccmaje technique, with 3-D reconstructions. MRA of the neck utilizing 2-D and 3-D bppn-lz-pbtjfb technique, with 3-D reconstructions. COMPARISON: None MRI [...] Correlate clinically. No evidence for a major [place] proximal branch vessel occlusion. Intracranial atherosclerosis results in multifocal mild stenosis of the bilateral M2 segments of the middle cerebral arteries. 60% stenosis of the proximal left internal carotid artery by NASCET criteria No evidence of hemodynamically significant stenosis in the right cervical carotid or vertebral arteries by NASCET criteria. Signed: Ozzie Avila MDReport Verified Date/Time: 2017 00:45:16 Reading Location: [address] Transitional Reading Room MR, MRA, BRAIN, WITHOUT [id number] 00:45:00FINAL REPORT CLINICAL HISTORY: r/o ALS TECHNIQUE: MRI of the brain utilizing axial T2, FLAIR, GRE, DWI; sagittal and coronal T1-weighted images as well as postcontrast T1 weighted images. MRA of the head utilizing 3-D jqsi-wd-fcmfno technique, with 3-D reconstructions. MRA of the [...] Correlate clinically. No evidence for a major [place] proximal branch vessel occlusion. Intracranial atherosclerosis results in multifocal mild stenosis of the bilateral M2 segments of the middle cerebral arteries. 60% stenosis of the proximal left internal carotid artery by NASCET criteria No evidence of hemodynamically significant stenosis in the right cervical carotid or vertebral arteries by NASCET criteria. Signed: Ozzie Avilaepcox [place] Verified Date/Time: 09/03/2018 00:45:16 Reading Location: [address] Transitional Reading Room POCT-GLUCOSE [id number] 00:34:00 Test Item Value Reference Range Comments POC-GLUCOSE METER (BEAKER) 187 mg/dL 70-110 TESTED AT [address] (test mzhi=4196) [place] [address] POCT-GLUCOSE [id number] 16:17:00 Test Item Value Reference Range Comments POC-GLUCOSE METER (BEAKER) 180 mg/dL 70-110 TESTED AT [address] (test xumk=1764) [place] [address] BASIC METABOLIC [id number] 14:11:00 Test Item Value Reference Range Comments SODIUM (BEAKER) (test 139 meq/L 136-145 kfzy=991) POTASSIUM (BEAKER) (test 3.8 meq/L 3.5-5.1 Specimen slightly cwyg=239) hemolyzed CHLORIDE (BEAKER) (test 102 meq/L 98-107 qdtb=603) CO2 (BEAKER) (test 24 meq/L 22-29 xqce=452) BLOOD UREA NITROGEN 16 mg/dL 7-21 (BEAKER) (test htvb=746) CREATININE (BEAKER) (test 0.82 mg/dL 0.57-1.25 Specimen slightly xbcb=771) hemolyzed GLUCOSE RANDOM (BEAKER) 187 mg/dL 70-105 (test kwzy=787) CALCIUM (BEAKER) (test 9.4 mg/dL 8.4-10.2 qzgz=336) EGFR (BEAKER) (test 94 mL/min/1.73 sq m ESTIMATED GFR IS NOT jdxk=1480) ACCURATE CREATININE CLEARANCE IN PREDICTING GLOMERULAR FILTRATION RATE. ESTIMATED GFR IS NOT APPLICABLE FOR DIALYSIS PATIENTS. MRSA [id number] 13:43:00 Test Item Value Reference Range Comments CULTURE (BEAKER) (test METHICILLIN RESISTANT 1+ Methicillin ohnh=0722) STAPHYLOCOCCUS AUREUS resistant Staphylococcus aureus Clindamycin (test code=10) Erythromycin (test code=4) Linezolid (test code=40) Oxacillin (test code=14) Rifampin (test code=43) Tetracycline (test code=2) Trimethoprim + Sulfamethoxazole (test code=47) Vancomycin (test code=13) SPUTUM CULTURE + GRAM [id number] 13:36:00 Test Item Value Reference Range Comments CULTURE (BEAKER) (test METHICILLIN RESISTANT <1+ Methicillin lybb=9635) STAPHYLOCOCCUS AUREUS resistant Staphylococcus aureus Clindamycin (test code=10) Erythromycin (test code=4) Linezolid (test code=40) Nitrofurantoin (test code=23) Oxacillin (test code=14) Rifampin (test code=43) Tetracycline (test code=2) Trimethoprim + Sulfamethoxazole (test code=47) Vancomycin (test code=13) GRAM STAIN RESULT 4+ WBCs (BEAKER) (test tbeg=4443) GRAM STAIN RESULT 0-5 epithelial cells (BEAKER) (test xgus=451414) GRAM STAIN RESULT 1+ gram positive cocci (BEAKER) (test in pairs and clusters zdng=530446) GRAM STAIN RESULT 1+ yeast (BEAKER) (test phjl=339007) <1+ Normal respiratory davie presentPOCT-GLUCOSE [id number] 10:05:00 Test Item Value Reference Range Comments POC-GLUCOSE METER (BEAKER) 210 mg/dL 70-110 TESTED AT [facility] [address] [facility] (test jynd=5715) [place] [address] BRONCHIAL CULTURE + GRAM [id number] 06:57:00 Test Item Value Reference Range Comments CULTURE (BEAKER) (test No growth vubh=8123) GRAM STAIN RESULT No WBCs This is an appended report. (BEAKER) (test These results have been hspc=1878) appended to a previously preliminary verified report. GRAM STAIN RESULT No organisms seen This is an appended report. (BEAKER) (test These results have been stmw=17449) appended to a previously preliminary verified report. BLOOD GAS, [id number] 05:30:00 Test Item Value Reference Range Comments PH ARTERIAL (BEAKER) (test noed=480) 7.43 7.35-7.45 PCO2 ARTERIAL (BEAKER) (test jhcz=670) 39 mmHg 35-45 PO2 ARTERIAL (BEAKER) (test vexm=796) 86 mmHg 80-90 O2 SATURATION ARTERIAL (BEAKER) (test blcf=412) 96.7 % 96.0-97.0 HCO3 ARTERIAL (BEAKER) (test iouv=350) 25 mmol/L 21-29 BASE EXCESS ARTERIAL (BEAKER) (test lvrn=915) 0.8 mmol/L -2.0-3.0 PATIENT TEMPERATURE (BEAKER) (test tjpc=3250) 37.0 C FIO2 (BEAKER) (test ydsm=3520) 50.0 % RAD, CHEST, 1 VIEW, NON [id number] 04:24:00Reason for exam:->ETT placementShould this be performed [...] Avila Verified Date/Time: 09/02/2018 04:24:02 Reading Location: [address] Transitional Reading Room [id number] 04:04:00 Test Item Value Reference Range Comments MAGNESIUM (BEAKER) (test krna=367) 1.9 mg/dL 1.6-2.6 BASIC METABOLIC [id number] 04:04:00 Test Item Value Reference Range Comments SODIUM (BEAKER) (test 139 meq/L 136-145 uxbn=224) POTASSIUM (BEAKER) (test 3.7 meq/L 3.5-5.1 rskn=607) CHLORIDE (BEAKER) (test 108 meq/L 98-107 mmyq=941) CO2 (BEAKER) (test 24 meq/L 22-29 geqd=813) BLOOD UREA NITROGEN 20 mg/dL 7-21 (BEAKER) (test ugor=819) CREATININE (BEAKER) (test 0.77 mg/dL 0.57-1.25 eztm=985) GLUCOSE RANDOM (BEAKER) 176 mg/dL 70-105 (test comk=663) CALCIUM (BEAKER) (test 8.6 mg/dL 8.4-10.2 xqwo=643) EGFR (BEAKER) (test 101 mL/min/1.73 sq m ESTIMATED GFR IS NOT sugu=1256) ACCURATE CREATININE CLEARANCE IN PREDICTING GLOMERULAR FILTRATION RATE. ESTIMATED GFR IS NOT APPLICABLE FOR DIALYSIS PATIENTS. CBC W/PLT COUNT & AUTO [id number] 03:31:00 Test Item Value Reference Range Comments WHITE BLOOD CELL COUNT (BEAKER) (test rtvn=450) 8.8 K/ L 3.5-10.5 RED BLOOD CELL COUNT (BEAKER) (test szba=323) 3.74 M/ L 4.63-6.08 HEMOGLOBIN (BEAKER) (test okms=933) 11.3 GM/DL 13.7-17.5 HEMATOCRIT (BEAKER) (test ppob=364) 34.2 % 40.1-51.0 MEAN CORPUSCULAR VOLUME (BEAKER) (test lwmm=136) 91.4 fL 79.0-92.2 MEAN CORPUSCULAR HEMOGLOBIN (BEAKER) (test 30.2 pg 25.7-32.2 yfqi=339) MEAN CORPUSCULAR HEMOGLOBIN CONC (BEAKER) (test 33.0 GM/DL 32.3-36.5 hwoo=677) RED CELL DISTRIBUTION WIDTH (BEAKER) (test 13.5 % 11.6-14.4 negb=559) PLATELET COUNT (BEAKER) (test lofz=375) 210 K/CU MM 150-450 MEAN PLATELET VOLUME (BEAKER) (test oprl=955) 9.3 fL 9.4-12.4 NUCLEATED RED BLOOD CELLS (BEAKER) (test 0 /100 WBC 0-0 uune=887) NEUTROPHILS RELATIVE PERCENT (BEAKER) (test 74 % dbip=452) LYMPHOCYTES RELATIVE PERCENT (BEAKER) (test 18 % ajre=658) MONOCYTES RELATIVE PERCENT (BEAKER) (test 6 % zdxh=691) EOSINOPHILS RELATIVE PERCENT (BEAKER) (test 1 % qrbz=804) BASOPHILS RELATIVE PERCENT (BEAKER) (test 0 % puxo=875) NEUTROPHILS ABSOLUTE COUNT (BEAKER) (test 6.56 K/ L 1.78-5.38 vhjn=856) LYMPHOCYTES ABSOLUTE COUNT (BEAKER) (test 1.57 K/ L 1.32-3.57 zwry=078) MONOCYTES ABSOLUTE COUNT (BEAKER) (test 0.53 K/ L 0.30-0.82 qxkx=583) EOSINOPHILS ABSOLUTE COUNT (BEAKER) (test 0.10 K/ L 0.04-0.54 pfwe=992) BASOPHILS ABSOLUTE COUNT (BEAKER) (test 0.02 K/ L 0.01-0.08 wede=811) IMMATURE GRANULOCYTES-RELATIVE PERCENT (BEAKER) 1 % 0-1 (test tndo=0061) POCT-GLUCOSE [id number] 22:19:00 Test Item Value Reference Range Comments POC-GLUCOSE METER (BEAKER) 182 mg/dL 70-110 TESTED AT [address] (test rbpe=1993) [place] [id number] VANCOMYCIN LEVEL, [id number] 21:04:00 Test Item Value Reference Range Comments VANCOMYCIN TROUGH ([facility]) (test bbqk=251) 14.4 ug/mL 10.0-20.0 [id number] 15:16:00 Test Item Value Reference Range Comments ACTIVATED CLOTTING TIME 142 sec TESTED AT [address] ([facility]) (test lcdo=673) [place] [address] [id number] 13:53:00 Test Item Value Reference Range Comments ACTIVATED CLOTTING TIME 164 sec TESTED AT [address] ([facility]) (test kvpa=838) [place] [address] POCT-GLUCOSE [id number] 12:28:00 Test Item Value Reference Range Comments POC-GLUCOSE METER ([facility]) 217 mg/dL 70-110 TESTED AT [address] (test uxoj=8511) [place] [address] [id number] 12:10:00 Test Item Value Reference Range Comments ACTIVATED CLOTTING TIME 296 sec TESTED AT [address] ([facility]) (test upqg=833) [place] [address] TROPONIN [id number] 09:22:00 Test Item Value Reference Range Comments TROPONIN I ([facility]) (test rbwv=948) 3.77 ng/mL 0.00-0.03 Troponin I (TnI) levels [...] failure, acidosis, acute neurological disease, and persistent tachyarrhythmia.[id number] 05:27:00 Test Item Value Reference Range Comments PARTIAL THROMBOPLASTIN TIME (BEAKER) (test 76.0 seconds 22.5-36.0 itwr=707) [id number] 05:22:00 Test Item Value Reference Range Comments [facility] (test vhwp=115) 2.1 mg/dL 1.6-2.6 BASIC METABOLIC [id number] 05:22:00 Test Item Value Reference Range Comments SODIUM (BEAKER) (test 138 meq/L 136-145 orpr=209) POTASSIUM (BEAKER) (test 4.0 meq/L 3.5-5.1 vbdh=370) CHLORIDE (BEAKER) (test 108 meq/L 98-107 lqzf=525) CO2 (BEAKER) (test 21 meq/L 22-29 wfvl=299) BLOOD UREA NITROGEN 25 mg/dL 7-21 (BEAKER) (test rrmy=369) CREATININE (BEAKER) (test 0.96 mg/dL 0.57-1.25 ervd=768) GLUCOSE RANDOM (BEAKER) 216 mg/dL 70-105 (test csue=323) CALCIUM (BEAKER) (test 8.4 mg/dL 8.4-10.2 krmj=307) EGFR (BEAKER) (test 79 mL/min/1.73 sq m ESTIMATED GFR IS NOT qglm=4249) ACCURATE CREATININE CLEARANCE IN PREDICTING GLOMERULAR FILTRATION RATE. ESTIMATED GFR IS NOT APPLICABLE FOR DIALYSIS PATIENTS. RAD, CHEST, 1 VIEW, NON [id number] 04:50:00Reason for exam:->respiratory failureShould this be performed [...] MDReport Verified Date/Time: 09/01/2018 04:50:17 Reading Location: [address] Reading Room Electronically signed by: BLAIR DANG M.D. on 04:50 AMCBC (HEMOGRAM ONLY)2018-09-01 04:39:00 Test Item Value Reference Range Comments WHITE BLOOD CELL COUNT (BEAKER) (test pmgl=159) 9.0 K/ L 3.5-10.5 RED BLOOD CELL COUNT (BEAKER) (test lmxh=862) 4.10 M/ L 4.63-6.08 HEMOGLOBIN (BEAKER) (test onqf=660) 12.3 GM/DL 13.7-17.5 HEMATOCRIT (BEAKER) (test efwu=058) 37.0 % 40.1-51.0 MEAN CORPUSCULAR VOLUME (BEAKER) (test zdlx=320) 90.2 fL 79.0-92.2 MEAN CORPUSCULAR HEMOGLOBIN (BEAKER) (test 30.0 pg 25.7-32.2 iahr=172) MEAN CORPUSCULAR HEMOGLOBIN CONC (BEAKER) (test 33.2 GM/DL 32.3-36.5 geyq=318) RED CELL DISTRIBUTION WIDTH (BEAKER) (test 13.7 % 11.6-14.4 dyia=333) PLATELET COUNT (BEAKER) (test fwri=383) 207 K/CU MM 150-450 MEAN PLATELET VOLUME (BEAKER) (test lpqs=397) 9.6 fL 9.4-12.4 NUCLEATED RED BLOOD CELLS (BEAKER) (test 0 /100 WBC 0-0 zrsj=950) TROPONIN [id number] 00:59:00 Test Item Value Reference Range Comments TROPONIN I (BEAKER) (test tyfo=199) 5.45 ng/mL 0.00-0.03 Troponin I (TnI) levels [...] acidosis, acute neurological disease, and persistent tachyarrhythmia.POCT-GLUCOSE [id number] 22:43:00 Test Item Value Reference Range Comments POC-GLUCOSE METER (BEAKER) 177 mg/dL 70-110 TESTED AT [facility] [address] [facility] (test unop=4095) [place] [address] TROPONIN [id number] 18:36:00 Test Item Value Reference Range Comments TROPONIN I (BEAKER) (test zcmw=213) 6.48 ng/mL 0.00-0.03 Troponin I (TnI) levels [...] failure, acidosis, acute neurological disease, and persistent tachyarrhythmia.[id number] 18:35:00 Test Item Value Reference Range Comments PARTIAL THROMBOPLASTIN TIME (BEAKER) (test 66.0 seconds 22.5-36.0 tkdk=723) POCT-GLUCOSE [id number] 16:40:00 Test Item Value Reference Range Comments POC-GLUCOSE METER (BEAKER) 161 mg/dL 70-110 TESTED AT [address] (test ertd=7984) [place] [address] POCT-GLUCOSE [id number] 15:13:00 Test Item Value Reference Range Comments POC-GLUCOSE METER (BEAKER) 149 mg/dL 70-110 TESTED AT [address] (test ezgp=6474) [place] [address] BODY FLUID CELL COUNT WITH [id number] 14:28:00 Test Item Value Reference Range Comments APPEARANCE FLUID (BEAKER) (test ghsz=949) Hazy Clear COLOR FLUID (BEAKER) (test akhq=095) [place] Colorless, Straw RBC FLUID (BEAKER) (test mgyd=507) 280 /cu mm <=1 ADJUSTED WBC FLUID (BEAKER) (test gawf=6914) 139 /cu mm <=5 LINING CELLS (BEAKER) (test nmtw=2196) 1 /cu mm <=1 NEUTROPHILS FLUID (BEAKER) (test duph=5273) 77 % LYMPHS FLUID (BEAKER) (test csvs=218) 5 % MONO/MACROPHAGE FLUID (BEAKER) (test cmhd=452) 18 % EOSINOPHILS FLUID (BEAKER) (test avus=880) 0 % BASO FLUID (BEAKER) (test ozmh=388) 0 % CONTAINER BODY FLUID (BEAKER) (test igfl=9206) EDTA Tube POCT-GLUCOSE [id number] 14:17:00 Test Item Value Reference Range Comments POC-GLUCOSE METER (BEAKER) 121 mg/dL 70-110 TESTED AT [address] (test nwak=2408) [place] [id number] POCT-GLUCOSE [id number] 13:05:00 Test Item Value Reference Range Comments POC-GLUCOSE METER (BEAKER) 176 mg/dL 70-110 TESTED AT [address] (test vpzy=6308) [place] [id number] VANCOMYCIN LEVEL, [id number] 13:01:00 Test Item Value Reference Range Comments VANCOMYCIN RANDOM (BEAKER) (test zfcs=358) 7.8 ug/mL Reference Range: No NormalsPOCT-GLUCOSE [id number] 12:08:00 Test Item Value Reference Range Comments POC-GLUCOSE METER (BEAKER) 168 mg/dL 70-110 TESTED AT [address] (test xwgf=5065) [place] [address] POCT-GLUCOSE [id number] 10:54:00 Test Item Value Reference Range Comments POC-GLUCOSE METER (BEAKER) 159 mg/dL 70-110 TESTED AT [address] (test kynn=7260) [place] [address] [id number] 10:01:00 Test Item Value Reference Range Comments PARTIAL THROMBOPLASTIN TIME (AKER) (test 44.9 seconds 22.5-36.0 kfeh=690) POCT-GLUCOSE [id number] 09:31:00 Test Item Value Reference Range Comments POC-GLUCOSE METER (BEAKER) 98 mg/dL 70-110 TESTED AT [address] (test poux=1385) [place] [address] POCT-GLUCOSE [id number] 08:31:00 Test Item Value Reference Range Comments POC-GLUCOSE METER (BEAKER) 118 mg/dL 70-110 TESTED AT [address] (test snnc=4098) [place] [address] TROPONIN [id number] 08:28:00 Test Item Value Reference Range Comments TROPONIN I (BEAKER) (test xmgs=348) 9.00 ng/mL 0.00-0.03 Troponin I (TnI) levels [...] acidosis, acute neurological disease, and persistent tachyarrhythmia.POCT-GLUCOSE [id number] 07:13:00 Test Item Value Reference Range Comments POC-GLUCOSE METER (BEAKER) 120 mg/dL 70-110 TESTED AT [facility] [address] [facility] (test wkgd=8123) [place] [address] POCT-GLUCOSE [id number] 06:10:00 Test Item Value Reference Range Comments POC-GLUCOSE METER (BEAKER) 152 mg/dL 70-110 TESTED AT [address] (test jjwy=3559) [place] [address] POCT-GLUCOSE [id number] 05:07:00 Test Item Value Reference Range Comments POC-GLUCOSE METER (BEAKER) 156 mg/dL 70-110 TESTED AT [address] (test uact=1658) [place] [address] [id number] 04:56:00 Test Item Value Reference Range Comments MAGNESIUM (BEAKER) (test hafw=152) 1.9 mg/dL 1.6-2.6 BASIC METABOLIC [id number] 04:56:00 Test Item Value Reference Range Comments SODIUM (BEAKER) (test 144 meq/L 136-145 mdri=379) POTASSIUM (BEAKER) (test 3.7 meq/L 3.5-5.1 unjp=870) CHLORIDE (BEAKER) (test 109 meq/L 98-107 zhsf=621) CO2 (BEAKER) (test 25 meq/L 22-29 kbzl=290) BLOOD UREA NITROGEN 32 mg/dL 7-21 (BEAKER) (test tlad=216) CREATININE (BEAKER) (test 1.12 mg/dL 0.57-1.25 seqz=640) GLUCOSE RANDOM (BEAKER) 149 mg/dL 70-105 (test pikl=363) CALCIUM (BEAKER) (test 8.7 mg/dL 8.4-10.2 jomu=239) EGFR (BEAKER) (test 66 mL/min/1.73 sq m ESTIMATED GFR IS NOT ooom=6663) ACCURATE CREATININE CLEARANCE IN PREDICTING GLOMERULAR FILTRATION RATE. ESTIMATED GFR IS NOT APPLICABLE FOR DIALYSIS PATIENTS. CBC (HEMOGRAM ONLY)2018-08-31 04:33:00 Test Item Value Reference Range Comments WHITE BLOOD CELL COUNT (BEAKER) (test optq=664) 11.6 K/ L 3.5-10.5 RED BLOOD CELL COUNT (BEAKER) (test extf=339) 4.00 M/ L 4.63-6.08 HEMOGLOBIN (BEAKER) (test oluu=581) 12.0 GM/DL 13.7-17.5 HEMATOCRIT (BEAKER) (test dstc=756) 35.4 % 40.1-51.0 MEAN CORPUSCULAR VOLUME (BEAKER) (test teaa=607) 88.5 fL 79.0-92.2 MEAN CORPUSCULAR HEMOGLOBIN (BEAKER) (test 30.0 pg 25.7-32.2 ganz=743) MEAN CORPUSCULAR HEMOGLOBIN CONC (BEAKER) (test 33.9 GM/DL 32.3-36.5 skuh=014) RED CELL DISTRIBUTION WIDTH (BEAKER) (test 14.0 % 11.6-14.4 vuri=390) PLATELET COUNT (BEAKER) (test uipd=914) 216 K/CU MM 150-450 MEAN PLATELET VOLUME (BEAKER) (test kwsq=663) 9.6 fL 9.4-12.4 NUCLEATED RED BLOOD CELLS (BEAKER) (test 0 /100 WBC 0-0 hxrf=728) BLOOD GAS, [id number] 04:21:00 Test Item Value Reference Range Comments PH ARTERIAL (BEAKER) (test ugpp=058) 7.45 7.35-7.45 PCO2 ARTERIAL (BEAKER) (test sbxv=050) 38 mmHg 35-45 PO2 ARTERIAL (BEAKER) (test kegb=410) 75 mmHg 80-90 O2 SATURATION ARTERIAL (BEAKER) (test ailb=804) 95.6 % 96.0-97.0 HCO3 ARTERIAL (BEAKER) (test gzee=469) 26 mmol/L 21-29 BASE EXCESS ARTERIAL (BEAKER) (test zmin=544) 1.6 mmol/L -2.0-3.0 PATIENT TEMPERATURE (BEAKER) (test vxrq=0201) 36.9 C FIO2 (BEAKER) (test qske=4724) 60.0 % POCT-GLUCOSE [id number] 04:10:00 Test Item Value Reference Range Comments POC-GLUCOSE METER (BEAKER) 142 mg/dL 70-110 TESTED AT [facility] [address] [facility] (test jiju=7419) [place] [id number] POCT-GLUCOSE [id number] 03:03:00 Test Item Value Reference Range Comments POC-GLUCOSE METER (BEAKER) 129 mg/dL 70-110 TESTED AT [address] (test pjwf=7344) [facility] [address] [id number] 02:39:00 Test Item Value Reference Range Comments PARTIAL THROMBOPLASTIN TIME (BEAKER) (test 61.7 seconds 22.5-36.0 qvoq=588) POCT-GLUCOSE [id number] 02:05:00 Test Item Value Reference Range Comments POC-GLUCOSE METER (BEAKER) 108 mg/dL 70-110 TESTED AT [address] (test jigd=7090) [place] [id number] POCT-GLUCOSE [id number] 01:28:00 Test Item Value Reference Range Comments POC-GLUCOSE METER (BEAKER) 93 mg/dL 70-110 TESTED AT [address] (test mjok=7188) [place] [id number] TROPONIN [id number] 01:04:00 Test Item Value Reference Range Comments TROPONIN I (BEAKER) (test rowf=489) 11.40 ng/mL 0.00-0.03 Troponin I (TnI) levels [...] acute neurological disease, and persistent tachyarrhythmia.BLOOD GAS, [id number] 00:14:00 Test Item Value Reference Range Comments PH ARTERIAL (BEAKER) (test cxst=616) 7.50 7.35-7.45 PCO2 ARTERIAL (BEAKER) (test mxbz=520) 36 mmHg 35-45 PO2 ARTERIAL (BEAKER) (test uzfb=825) 56 mmHg 80-90 O2 SATURATION ARTERIAL (BEAKER) (test ublk=468) 92.1 % 96.0-97.0 HCO3 ARTERIAL (BEAKER) (test dydi=893) 27 mmol/L 21-29 BASE EXCESS ARTERIAL (BEAKER) (test rfla=291) 4.0 mmol/L -2.0-3.0 PATIENT TEMPERATURE (BEAKER) (test elxl=9135) 36.7 C FIO2 (BEAKER) (test lszm=8140) 40.0 % POCT-GLUCOSE [id number] 00:10:00 Test Item Value Reference Range Comments POC-GLUCOSE METER (BEAKER) 124 mg/dL 70-110 TESTED AT [address] (test mchf=2023) [place] [id number] POCT-GLUCOSE [id number] 23:27:00 Test Item Value Reference Range Comments POC-GLUCOSE METER (BEAKER) 111 mg/dL 70-110 TESTED AT [address] (test eidj=8010) [place] [id number] POCT-GLUCOSE [id number] 22:06:00 Test Item Value Reference Range Comments POC-GLUCOSE METER (BEAKER) 131 mg/dL 70-110 TESTED AT [address] (test sqkk=2446) [place] [id number] POCT-GLUCOSE [id number] 21:05:00 Test Item Value Reference Range Comments POC-GLUCOSE METER (BEAKER) 145 mg/dL 70-110 TESTED AT [address] (test cdlc=1887) [place] [id number] POCT-GLUCOSE [id number] 20:18:00 Test Item Value Reference Range Comments POC-GLUCOSE METER (BEAKER) 154 mg/dL 70-110 TESTED AT [address] (test krbk=9163) [place] [address] [id number] 19:55:00 Test Item Value Reference Range Comments PARTIAL THROMBOPLASTIN TIME (BEAKER) (test 50.2 seconds 22.5-36.0 ucvl=649) POCT-GLUCOSE [id number] 19:07:00 Test Item Value Reference Range Comments POC-GLUCOSE METER (BEAKER) 182 mg/dL 70-110 TESTED AT [address] (test vmvs=4497) [place] [id number] POCT-GLUCOSE [id number] 18:03:00 Test Item Value Reference Range Comments POC-GLUCOSE METER (BEAKER) 201 mg/dL 70-110 TESTED AT [address] (test biod=2058) [facility] [address] PUL PERF IMAGING, PARTIC, [id number] 17:23:00FINAL REPORT PROCEDURE: V/Q LUNG SCAN CPT CODE: 90831 INDICATION: Chest pain PA suspected high pretest [...] MDReport Verified Date/Time: 08/30/2018 17:23:41 Reading Location: [address] Reading Room POCT-GLUCOSE [id number] 17:03:00 Test Item Value Reference Range Comments POC-GLUCOSE METER (BEAKER) 230 mg/dL 70-110 TESTED AT [address] (test qsgi=9332) [facility] [address] POCT-GLUCOSE [id number] 16:13:00 Test Item Value Reference Range Comments POC-GLUCOSE METER (BEAKER) 255 mg/dL 70-110 TESTED AT [address] (test iywz=2121) [place] [id number] TROPONIN [id number] 16:01:00 Test Item Value Reference Range Comments TROPONIN I (BEAKER) (test ttgf=029) 14.68 ng/mL 0.00-0.03 Troponin I (TnI) levels [...] neurological disease, and persistent tachyarrhythmia.CT, CHEST, WITHOUT [id number] 15 :10:00FINAL REPORT HISTORY: Acute resp illness, [...] or aspiration. 4. Cardiomegaly. Signed: Bryon Sainz MDReport Verified Date/Time: 08/30/2018 15:10:22 Reading Location: [facility] Reading Room - [place] [address] Electronically signed by: BRYON SAINZ M.D. on08/30/2018 03:10 PMPOCT-GLUCOSE [id number] 14:57:00 Test Item Value Reference Range Comments POC-GLUCOSE METER (BEAKER) 273 mg/dL 70-110 TESTED AT [facility] [address] [facility] (test kglw=8723) [facility] [address] POCT-GLUCOSE [id number] 13:10:00 Test Item Value Reference Range Comments POC-GLUCOSE METER (BEAKER) 232 mg/dL 70-110 TESTED AT [address] (test tglg=0225) [facility] [address] RAD, ABDOMEN/KUB, 1 VIEW [id number] 12:44:00Reason for exam:->abdominal distensionFINAL REPORT Two frontal images abdomen and pelvis. NG tube loops in the proximal stomach. There is a paucity of visible small bowel gas but no grossly apparent bowel obstruction. No evidence of free intraperitoneal air. Degenerative spine changes are noted. No concerning calcification. Signed: Mark Parsons Verified Date/Time: 08/30/2018 12: 44:32 Reading Location: [facility]iology Reading Room [id number] 12:08:00 Test Item Value Reference Range Comments PARTIAL THROMBOPLASTIN TIME (BEAKER) (test 45.2 seconds 22.5-36.0 smdx=960) POCT-GLUCOSE [id number] 12:05:00 Test Item Value Reference Range Comments POC-GLUCOSE METER (BEAKER) 238 mg/dL 70-110 TESTED AT [address] (test kgxr=5510) [facility] [address] RAD, CHEST, 1 VIEW, NON [id number] 11:56:00Reason for exam:->ET tube manipulationShould this be [...] Verified Date/Time: 08/30/2018 11: 56:52 Reading Location: [facility] Radiology Reading Room POCT- GLUCOSE [id number] 11:05:00 Test Item Value Reference Range Comments POC-GLUCOSE METER (BEAKER) 275 mg/dL 70-110 TESTED AT [address] (test kgnu=8756) [facility] [address] LACTIC ACID, ARTERIAL, WHOLE [id number] 09:50:00 Test Item Value Reference Range Comments LACTATE BLOOD ARTERIAL (2) (BEAKER) (test 1.6 mmol/L 0.5-2.2 vccj=7000) Effective 03/02/2016: Units/Reference Range ChangeNew: 0.5-2.2 mmol/L Previous: 5 -20 mg/dLPOCT-GLUCOSE [id number] 09:44:00 Test Item Value Reference Range Comments POC-GLUCOSE METER (BEAKER) 297 mg/dL 70-110 TESTED AT [address] (test fljp=4510) [place] [address] TROPONIN [id number] 09:34:00 Test Item Value Reference Range Comments TROPONIN I (BEAKER) (test ypms=415) 19.27 ng/mL 0.00-0.03 Troponin I (TnI) levels [...] acute neurological disease, and persistent tachyarrhythmia.OXYGEN SATURATION, [id number] 08 :54:00 Test Item Value Reference Range Comments O2 SATURATION (MEASURED) (AKER) (test iksh=8233) 74.7 % POCT-GLUCOSE [id number] 08:33:00 Test Item Value Reference Range Comments POC-GLUCOSE METER (BEAKER) 345 mg/dL 70-110 TESTED AT [address] (test pwbg=6028) [facility] [address] POCT-GLUCOSE [id number] 07:42:00 Test Item Value Reference Range Comments POC-GLUCOSE METER (BEAKER) 305 mg/dL 70-110 Notified MILLA CARPENTER/TESTED AT [facility] (test lnps=4293) [address] [place] [address] POCT-GLUCOSE [id number] 07:42:00 Test Item Value Reference Range Comments POC-GLUCOSE METER (BEAKER) 309 mg/dL 70-110 TESTED AT [place] [address] [address]NE (test vlur=6283) [facility] [address] URINALYSIS W/ REFLEX URINE [id number] 07:35:00 Test Item Value Reference Range Comments COLOR (BEAKER) (test qkiv=503) Light Yellow CLARITY (BEAKER) (test ozyv=150) Clear SPECIFIC GRAVITY UA (BEAKER) (test imnb=926) 1.017 1.001-1.035 PH UA (BEAKER) (test cpfe=400) 5.0 5.0-8.0 PROTEIN UA (BEAKER) (test cpwu=203) Negative Negative GLUCOSE UA (BEAKER) (test lkig=236) >1000 mg/dL Negative KETONES UA (BEAKER) (test seuc=322) 10 mg/dL Negative BILIRUBIN UA (BEAKER) (test yryq=526) Negative Negative BLOOD UA (BEAKER) (test whnn=483) Negative Negative NITRITE UA (BEAKER) (test earc=037) Negative Negative LEUKOCYTE ESTERASE UA (BEAKER) (test sfmh=489) Negative Negative UROBILINOGEN UA (BEAKER) (test mvmn=799) 0.2 mg/dL 0.2-1.0 RBC UA (BEAKER) (test ybgp=329) 3 /HPF WBC UA (BEAKER) (test xngf=489) 2 /HPF MUCUS (BEAKER) (test hcet=3379) Rare AMORPHOUS CRYSTALS (BEAKER) (test cttu=0783) Rare SOURCE(BEAKER) (test nkbx=8415) [id number] 05:48:00 Test Item Value Reference Range Comments PROCALCITONIN (BEAKER) (test gvth=9915) 0.26 ng/mL <0.05 SEPSIS RISK (ng/mL)Low: 0.05-0.50Intermediate: 0.51-2.00High: & gt;=2.01LACTIC ACID, ARTERIAL, WHOLE [id number] 04:44:00 Test Item Value Reference Range Comments LACTATE BLOOD ARTERIAL (2) 1.7 mmol/L 0.5-2.2 Specimen slightly hemolyzed (BEAKER) (test hilm=5518) Effective 03/02/2016: Units/Reference Range ChangeNew: 0.5-2.2 mmol/L Previous: 5 -20 mg/dLBLOOD GAS, [id number] 04:42:00 Test Item Value Reference Range Comments PH ARTERIAL (BEAKER) (test ilxp=523) 7.40 7.35-7.45 PCO2 ARTERIAL (BEAKER) (test ehgj=007) 35 mmHg 35-45 PO2 ARTERIAL (BEAKER) (test sbcg=715) 101 mmHg 80-90 O2 SATURATION ARTERIAL (BEAKER) (test tvfi=446) 97.7 % 96.0-97.0 HCO3 ARTERIAL (BEAKER) (test lxrs=452) 21 mmol/L 21-29 BASE EXCESS ARTERIAL (BEAKER) (test bplq=227) -3.0 mmol/L -2.0-3.0 PATIENT TEMPERATURE (BEAKER) (test agqu=4444) 36.9 C FIO2 (BEAKER) (test jtcl=9084) 50.0 % [id number] 04:40:00 Test Item Value Reference Range Comments POTASSIUM (BEAKER) (test edik=850) 4.3 meq/L 3.5-5.1 [id number] 04:40:00 Test Item Value Reference Range Comments GLUCOSE RANDOM (BEAKER) (test bhld=396) 365 mg/dL 70-105 POCT-GLUCOSE [id number] 04:37:00 Test Item Value Reference Range Comments POC-GLUCOSE METER (BEAKER) 370 mg/dL 70-110 TESTED AT [facility] [address] [place] [address] (test navc=3905) [facility] [address] [id number] 04:34:00 Test Item Value Reference Range Comments PARTIAL THROMBOPLASTIN TIME (BEAKER) (test 30.2 seconds 22.5-36.0 apim=834) Prior to initiating heparinPLATELET [id number] 04:15:00 Test Item Value Reference Range Comments PLATELET COUNT (BEAKER) (test hrfr=407) 284 K/CU MM 150-450 Baseline and daily starting prior to initiation of heparin infusionCB ( HEMOGRAM ONLY)2018-08-30 04:15:00 Test Item Value Reference Range Comments WHITE BLOOD CELL COUNT (BEAKER) (test ilgw=838) 16.6 K/ L 3.5-10.5 RED BLOOD CELL COUNT (BEAKER) (test wlmk=792) 4.25 M/ L 4.63-6.08 HEMOGLOBIN (BEAKER) (test ljak=054) 13.1 GM/DL 13.7-17.5 HEMATOCRIT (BEAKER) (test uhxl=824) 37.6 % 40.1-51.0 MEAN CORPUSCULAR VOLUME (BEAKER) (test dwkv=614) 88.5 fL 79.0-92.2 MEAN CORPUSCULAR HEMOGLOBIN (BEAKER) (test 30.8 pg 25.7-32.2 qjaa=248) MEAN CORPUSCULAR HEMOGLOBIN CONC (BEAKER) (test 34.8 GM/DL 32.3-36.5 yngz=695) RED CELL DISTRIBUTION WIDTH (BEAKER) (test 13.6 % 11.6-14.4 wfkf=187) PLATELET COUNT (BEAKER) (test dlpa=778) 284 K/CU MM 150-450 MEAN PLATELET VOLUME (BEAKER) (test ztnt=289) 9.6 fL 9.4-12.4 NUCLEATED RED BLOOD CELLS (BEAKER) (test 0 /100 WBC 0-0 qjfe=138) TSH/FREE T4 IF [id number] 03:00:00 Test Item Value Reference Range Comments THYROID STIMULATING HORMONE (BEAKER) (test 0.92 uIU/mL 0.35-4.94 yfyb=935) TROPONIN [id number] 02:51:00 Test Item Value Reference Range Comments TROPONIN I (BEAKER) (test czsr=819) 24.37 ng/mL 0.00-0.03 Troponin I (TnI) levels [...] Range Comments B-TYPE NATRIURETIC PEPTIDE (BEAKER) (test gern=565) 63 pg/mL 0-100 [id number] 02:44:00 Test Item Value Reference Range Comments PARTIAL THROMBOPLASTIN TIME (BEAKER) (test 28.2 seconds 22.5-36.0 gfai=212) Prior to initiating heparinCBC W/PLT COUNT & AUTO [id number] 02: 41:00 Test Item Value Reference Range Comments WHITE BLOOD CELL COUNT (BEAKER) (test hrok=841) 13.4 K/ L 3.5-10.5 RED BLOOD CELL COUNT (BEAKER) (test usul=664) 4.05 M/ L 4.63-6.08 HEMOGLOBIN (BEAKER) (test revs=671) 12.6 GM/DL 13.7-17.5 HEMATOCRIT (BEAKER) (test pvjl=185) 36.4 % 40.1-51.0 MEAN CORPUSCULAR VOLUME (BEAKER) (test rxlq=895) 89.9 fL 79.0-92.2 MEAN CORPUSCULAR HEMOGLOBIN (BEAKER) (test 31.1 pg 25.7-32.2 gcnh=842) MEAN CORPUSCULAR HEMOGLOBIN CONC (BEAKER) (test 34.6 GM/DL 32.3-36.5 xota=122) RED CELL DISTRIBUTION WIDTH (BEAKER) (test 13.7 % 11.6-14.4 lymg=146) PLATELET COUNT (BEAKER) (test ujry=111) 223 K/CU MM 150-450 MEAN PLATELET VOLUME (BEAKER) (test sopo=723) 9.9 fL 9.4-12.4 NUCLEATED RED BLOOD CELLS (BEAKER) (test 0 /100 WBC 0-0 dxqs=305) NEUTROPHILS RELATIVE PERCENT (BEAKER) (test 94 % snmh=683) LYMPHOCYTES RELATIVE PERCENT (BEAKER) (test 5 % miwd=003) MONOCYTES RELATIVE PERCENT (BEAKER) (test 1 % gunm=561) EOSINOPHILS RELATIVE PERCENT (BEAKER) (test 0 % rujz=562) BASOPHILS RELATIVE PERCENT (BEAKER) (test 0 % gduf=547) NEUTROPHILS ABSOLUTE COUNT (BEAKER) (test 12.52 K/ L 1.78-5.38 bqqm=951) LYMPHOCYTES ABSOLUTE COUNT (BEAKER) (test 0.61 K/ L 1.32-3.57 sdql=388) MONOCYTES ABSOLUTE COUNT (BEAKER) (test 0.12 K/ L 0.30-0.82 svld=777) EOSINOPHILS ABSOLUTE COUNT (BEAKER) (test 0.00 K/ L 0.04-0.54 qzjj=988) BASOPHILS ABSOLUTE COUNT (BEAKER) (test 0.01 K/ L 0.01-0.08 fgka=703) IMMATURE GRANULOCYTES-RELATIVE PERCENT (BEAKER) 1 % 0-1 (test mhlp=2025) [id number] 02:39:00 Test Item Value Reference Range Comments LIPASE (BEAKER) (test bnis=134) 14 U/L 8-78 COMPREHENSIVE METABOLIC [id number] 02:39:00 Test Item Value Reference Range Comments TOTAL PROTEIN (BEAKER) 6.2 gm/dL 6.0-8.3 (test pepd=980) ALBUMIN (BEAKER) (test 3.5 g/dL 3.5-5.0 hgxr=8440) ALKALINE PHOSPHATASE 31 U/L 40-150 (BEAKER) (test hnqb=972) BILIRUBIN TOTAL (BEAKER) 0.5 mg/dL 0.2-1.2 (test wylp=478) SODIUM (BEAKER) (test 138 meq/L 136-145 yrut=535) POTASSIUM (BEAKER) (test 4.3 meq/L 3.5-5.1 ontf=755) CHLORIDE (BEAKER) (test 104 meq/L 98-107 zwkw=353) CO2 (BEAKER) (test 22 meq/L 22-29 vnnd=981) BLOOD UREA NITROGEN 27 mg/dL 7-21 (BEAKER) (test nmmn=139) CREATININE (BEAKER) (test 1.49 mg/dL 0.57-1.25 jfmk=566) GLUCOSE RANDOM (BEAKER) 339 mg/dL 70-105 (test jygi=884) CALCIUM (BEAKER) (test 8.8 mg/dL 8.4-10.2 qfda=234) AST (SGOT) (BEAKER) (test 91 U/L 5-34 vhtb=572) ALT (SGPT) (BEAKER) (test 21 U/L 6-55 qqje=467) EGFR (BEAKER) (test 47 mL/min/1.73 sq m ESTIMATED GFR IS NOT xnjj=8511) ACCURATE CREATININE CLEARANCE IN PREDICTING GLOMERULAR FILTRATION RATE. ESTIMATED GFR IS NOT APPLICABLE FOR DIALYSIS PATIENTS. [id number] 02:39:00 Test Item Value Reference Range Comments MAGNESIUM (BEAKER) (test ajay=344) 1.9 mg/dL 1.6-2.6 LACTIC ACID, VENOUS, WHOLE [id number] 02:34:00 Test Item Value Reference Range Comments LACTATE BLOOD VENOUS (2) 2.8 mmol/L 0.5-2.2 Specimen slightly hemolyzed (BEAKER) (test nlzm=6713) Effective 03/02/2016: Units/Reference Range ChangeNew: 0.5-2.2 mmol/L Previous: 5 -20 mg/dLPLATELET [id number] 02:14:00 Test Item Value Reference Range Comments PLATELET COUNT (BEAKER) (test ecvz=805) 223 K/CU MM 150-450 RAD, CHEST, 1 VIEW, NON [id number] 01:50:00Reason for exam:->lines placement Should this be [...] them to the physician. Signed: Ozzie Avila MDReport Verified Date/Time : 08/30/2018 01:50:34 Reading Location: [facility] C0[facility] Transitional Reading Room
--- OUTSIDE RECORDS SUMMARY | 2019-06-26 11:16 | XMS REPORT | Clinical Summary ---
:1955 Author Organization [facility] Address [address] [place] [address] Care Team Providers Name Role Phone Bebeto [...] LANCETS 33 gauge TWICE A DAY 7 [facility] [place] blood sugar Check glucose 400 strip 3 Active diagnostic strips 4 times a day 7 (ONETOUCH VERIO) strip test stripsIndications: Type 2 diabetes mellitus with complication, with long-term current use of insulin ([facility]) insulin Use 1 syringe 270 each 1 [...] (Reorder) tablet by mouth daily. LOT # [id number] EXP: atorvastatin Take 20 mg by 0 [...] diabetes mellitus MD with complication, unspecified whether jail insulin use (HCC) (Primary Dx) 03/26/2019 Orders Only Endocrinology Susanna Laboy MA 02/25/2019 Office Visit Endocrinology Divina Zendejas, Type 2 diabetes mellitus with complication, unspecified whether jail insulin use (HCC) ( Primary Dx); Mixed hyperlipidemia; Coronary artery disease involving [place] heart without angina pectoris , unspecified vessel or lesion type; Benign essential hypertension 11/20/2018 Refill Endocrinology Divina Zendejas MD 11/19/2018 Office Visit Endocrinology Divina Zendejas, Type 2 diabetes mellitus with complication, unspecified whether buttermilk drier operator insulin use (HCC) ( Primary Dx); Coronary artery disease involving [place] heart without angina pectoris, unspecified vessel or lesion type; Mixed hyperlipidemia 10/17/2018 Orders Only Endocrinology Divina Zendejas Type 2 diabetes mellitus MD with complication, with long-term current use of insulin (HCC) 08/23/2018 Orders Only Endocrinology Susanna Laboy MA 07/25/2018 Office Visit Endocrinology Divina Zendejas, Uncontrolled type 2 diabetes MD mellitus with complication, unspecified buttermilk drier operator insulin use status (Primary Dx) after 06/25/2018 [...] 09/02/2019 Office Visit Endocrinology Divina Zendejas MD [address] [address] Health Maintenance Due Date Last [...] in complication, the results unspecified whether section. 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 buttermilk drier operator insulin use (HCC) HEMOGLOBIN A1C Routine 02/13/2019 7:07 Type 2 diabetes Results for this AM CDT mellitus with procedure are in complication, the results unspecified whether section. jail insulin use (HCC) HEMOGLOBIN A1C Routine 11/10/2018 8:08 Uncontrolled type 2 Results for this AM MICA MINER diabetes mellitus with procedure are in complication, the results unspecified jail section. insulin use status BASIC METABOLIC PANEL Routine 11/10/2018 8:08 Uncontrolled type 2 Results for this AM MICA MINER diabetes mellitus with procedure are in complication, the results unspecified buttermilk drier operator section. insulin use status VITAMIN D 25 [...] procedure are in complication, the results unspecified jail section. insulin use status Hyperlipidemia, unspecified hyperlipidemia type COMPREHENSIVE Routine 07/19/2018 7:17 Uncontrolled type 2 Results for this METABOLIC PANEL AM CDT diabetes mellitus with procedure are in complication, the results unspecified buttermilk drier operator section. insulin use status HEMOGLOBIN A1C Routine 07/19/2018 7:17 Uncontrolled type 2 Results for this AM CDT diabetes mellitus with procedure are in complication, the results unspecified jail section. insulin use status after 06/25/2018 Results POC glycosylated hemoglobin (Hb A1C) (05/27/2019 10:47 AM CDT) POC Hemoglobin A1C 7.2 % Specimen Blood POC glucose (05/27/2019 10:39 AM CDT) POC glucose 175Comment: NON FASTING 65 - 100 Specimen Blood Hemoglobin A1c (02/13/2019 7:07 AM CDT)Only the most recent of3 resultswithin the time period is included. Hemoglobin A1C 8.7 (H) <5.7 % of [facility] Comment: total Hgb [place] For someone without known diabetes, a hemoglobin [...] Performing Organization Information: Site ID: [id number] Name: [facility] Address: [address] [place] [id number] Director: Mitzi Lyons Performing Organization Address City/State/Zipcode Phone Number [facility] [place] [address] [place] [address] Basic metabolic panel (11/10/2018 8:08 AM MICA MINER) Glucose 118 (H) 65 - 99 [facility] Comment: mg/dL [place] Fasting reference interval For someone without known diabetes, a glucose value between 100 and 125 mg/dL is consistent with prediabetes and should be confirmed with a follow-up test. BUN, whole blood 19 7 - 25 mg/dL [facility] [place] Creatinine 0.86 0.70 - 1.25 [facility] Comment: mg/dL [place] For patients >49 years of age, the reference limit for Creatinine is approximately 13% higher for people identified as -Nigerian. EGFR Non-Afr. 91 > OR=60 [facility] Nigerian mL/min/1.73m [place] 2 EGFR 105 > OR=60 [facility] Nigerian mL/min/1.73m [place] 2 BUN/creatinine NOT APPLICABLE 6 - 22 [facility] ratio (calc) [place] Sodium 137 135 - 146 [facility] mmol/L [place] Potassium 4.6 3.5 - 5.3 [facility] mmol/L [place] Chloride 101 98 - 110 [facility] mmol/L [place] CO2 26 20 - 32 [facility] mmol/L [place] Calcium 9.9 8.6 - 10.3 [facility] mg/dL [place] Specimen Blood Narrative Performed At FASTING:YES [facility] FASTING: YES Resulting Agency Comment Performing Organization Information: Site ID: [id number] Name: [facility] Address: [address] [place] [id number] Director: Mitzi Lyons Performing Organization Address City/State/Zipcode Phone Number [facility] [place] [address] [place] [address] Microalbumin / creatinine urine ratio (07/19/2018 7:17 AM CDT) Pathologist [facility] Creatinine, 137 20 - 320 [facility] urine, random mg/dL [place] Microalbumin, 0.6 See Note: [facility] urine Comment: mg/dL [place] Reference Range: Reference Range Not established Microalbumin/crea 4 <30 mcg/mg [facility] tinine ratio Comment: creat MCNEIL The ADA defines abnormalities in albumin excretion as follows: Category Result (mcg/mg creatinine) Normal<30 Microalbuminuria 30-299 Clinical albuminuria > DZ=[id number] The ADA recommends that at least two of three specimens collected within a 3-6 month period be abnormal before considering a patient to be within a diagnostic category. Specimen Narrative Performed At FASTING:YES [facility] FASTING: YES Resulting Agency Comment Performing Organization Information: Site ID: [id number] Name: [facility] Address: [address] [place] [phone] Director: Mitzi Lyons Performing Organization Address [facility] [place] [address] Vitamin D 25 hydroxy level (07/19/2018 7:17 AM CDT) Vitamin D, 19 (L) 30 - 100 [facility] 25-hydroxy Comment: ng/mL [place] Vitamin D Status 25-OH Vitamin D: Deficiency:<20 ng/mL Insufficiency: 20 - 29 ng/mL Optimal: > or=30 ng/mL For 25-OH Vitamin D testing on patients on D2-supplementation and patients for whom quantitation of D2 and D3 fractions is required, the QuestAssureD(TM) 25-OH VIT D, (D2,D3), LC/MS/MS is recommended: order code 90690 (patients >2yrs). For more information on this test, go to: http://education.[employer]/faq/MDI398 (This link is being provided for informational/educational purposes only.) Specimen Narrative Performed At FASTING:YES [facility] FASTING: YES Resulting Agency Comment Performing Organization Information: Site ID: [id number] Name: [facility] Address: [address] [place] [id number] Director: Mitzi Lyons Performing Organization Address [facility] [place] [address] Lipid panel (07/19/2018 7:17 AM CDT) Cholesterol, total 189 <200 mg/dL [facility] AgentPair [place] HDL cholesterol 38 (L) >40 mg/dL [facility] [place] Triglycerides 262 (H) <150 mg/dL [facility] [place] LDL cholesterol 114 (H) mg/dL (calc) [facility] calculated Comment: [place] Reference range: <100 Desirable range <100 mg/dL for primary prevention; <70 mg/dL for patients with CHD or diabetic patients with > or=2 CHD risk factors. LDL-C is now calculated using the Bud calculation, which is a validated novel method providing better accuracy than the Friedewald equation in the estimation of LDL-C. Pillo GUERRA et al. BRENDA. 2013;310(19): 6075-2482 (http://education.[employer]/faq/NSF923) Cholesterol/HDL 5.0 (H) <5.0 (calc) [facility] ratio [place] Non-HDL cholesterol 151 (H) <130 mg/dL [facility] Comment: (calc) [place] For patients with diabetes plus 1 major ASCVD risk factor, treating to a non-HDL-C goal of <100 mg/dL (LDL-C of <70 mg/dL) is considered a therapeutic option. Specimen Blood Narrative Performed At FASTING:YES [facility] FASTING: YES Resulting Agency Comment Performing Organization Information: Site ID: [id number] Name: [facility] Address: [address] [place] [phone] Director: Mitzi Lyons Performing Organization Address City/State/Zipcode [place] [address] Comprehensive metabolic panel (07/19/2018 7:17 AM CDT) [facility] Glucose 107 (H) 65 - 99 [facility] Comment: mg/dL [place] Fasting reference interval For someone without known diabetes, a glucose value between 100 and 125 mg/dL is consistent with prediabetes and should be confirmed with a follow-up test. BUN, whole blood 33 (H) 7 - 25 mg/dL [facility] [place] Creatinine 0.93 0.70 - 1.25 [facility] Comment: mg/dL [place] For patients >49 years of age, the reference limit for Creatinine is approximately 13% higher for people identified as -Nigerian. EGFR Non-Afr. 86 > OR=60 [facility] Nigerian mL/min/1.73m [place] 2 EGFR 100 > OR=60 [facility] Nigerian mL/min/1.73m [place] 2 BUN/creatinine 35 (H) 6 - 22 [facility] ratio (calc) [place] Sodium 139 135 - 146 [facility] mmol/L [place] Potassium 4.4 3.5 - 5.3 [facility] mmol/L [place] Chloride 105 98 - 110 [facility] mmol/L [place] CO2 27 20 - 32 [facility] mmol/L [place] Calcium 9.6 8.6 - 10.3 [facility] mg/dL [place] Protein 6.8 6.1 - 8.1 [facility] g/dL [place] Albumin, S 4.2 3.6 - 5.1 [facility] g/dL [place] Globulin, total 2.6 1.9 - 3.7 [facility] g/dL (calc) [place] Albumin/globulin 1.6 1.0 - 2.5 [facility] ratio (calc) [place] Total bilirubin 0.4 0.2 - 1.2 [facility] mg/dL [place] Alkaline 46 40 - 115 U/L [facility] phosphatase [place] AST 21 10 - 35 U/L [facility] [place] ALT 26 9 - 46 U/L [facility] [place] Specimen Blood Narrative Performed At FASTING:YES [facility] FASTING: YES Resulting Agency Comment Performing Organization Information: Site ID: [id number] Name: [facility] Address: [address] [place] [id number] Director: Mitzi Lyons Performing Organization Address City/State/Zipcode Phone Number [facility] [place] [address] [place], [place] [phone] after 06/25/2018 Advance Directives For more information, please contact: [phone] Type Date Recorded Patient Applications Processor Explanation Advance Directives, Living Will and Medical Power of Training Program Developer
--- OUTSIDE RECORDS SUMMARY | 2019-06-26 11:19 | XMS REPORT ---
:1955 [facility] Address [address] [place] [address] Care Team Providers Name Role Phone MARK [...] Value Reference Range Comments CULTURE (BEAKER) (test rang=9615) No growth in 5 days BLOOD [id number] 20:01:00 Test Item Value Reference Range Comments CULTURE (BEAKER) (test pbuk=9747) No growth in 5 days POCT-GLUCOSE [id number] 12:13:00 Test Item Value Reference Range Comments POC-GLUCOSE METER (BEAKER) 143 mg/dL 70-110 TESTED AT [facility] [address] (test ysvz=9323) [facility] [address] SPUTUM CULTURE + GRAM [id number] 10:30:00 Test Item Value Reference Range Comments CULTURE (BEAKER) (test See comment wskz=4918) GRAM STAIN RESULT (BEAKER) 2+ WBCs (test lprk=6811) GRAM STAIN RESULT (BEAKER) 0-5 epithelial cells (test chay=14757) GRAM STAIN RESULT (BEAKER) 1+ gram negative rods (test intz=023052) GRAM STAIN RESULT (BEAKER) 1+ gram positive cocci in (test yeyt=458977) clusters 3+ Normal respiratory davie presentWOUND CULTURE + GRAM [id number] 09:53:00 Test Item Value Reference Range Comments CULTURE (BEAKER) (test STAPHYLOCOCCUS AUREUS <1+ Staphylococcus ztkt=7297) aureus Clindamycin (test code=10) Erythromycin (test code=4) Linezolid (test code=40) Nitrofurantoin (test code=23) Oxacillin (test code=14) Rifampin (test code=43) Tetracycline (test code=2) Trimethoprim + Sulfamethoxazole (test code=47) Vancomycin (test code=13) GRAM STAIN RESULT No WBCs (BEAKER) (test grrc=1547) GRAM STAIN RESULT No organisms seen (BEAKER) (test jfsq=866763) POCT-GLUCOSE [id number] 08:04:00 Test Item Value Reference Range Comments POC-GLUCOSE METER (BEAKER) 162 mg/dL 70-110 TESTED AT [address] (test inqv=3384) [facility] [address] POCT-GLUCOSE [id number] 21:15:00 Test Item Value Reference Range Comments POC-GLUCOSE METER (BEAKER) 274 mg/dL 70-110 TESTED AT [address] (test ntzz=6576) [facility] [address] POCT-GLUCOSE [id number] 17:23:00 Test Item Value Reference Range Comments POC-GLUCOSE METER (BEAKER) 169 mg/dL 70-110 TESTED AT [address] (test mfse=1067) [facility] [address] POCT-GLUCOSE [id number] 12:24:00 Test Item Value Reference Range Comments POC-GLUCOSE METER (BEAKER) 182 mg/dL 70-110 TESTED AT [address] (test oqpv=1095) [facility] [address] RAD, CHEST, 1 VIEW, NON [id number] 08:36:00Reason for exam:->SHORTNESS OF BREATHShould this be performed at the bedside?->YesFINAL REPORT CLINICAL HISTORY: SHORTNESS OF BREATH TECHNIQUE: 1 view of the chest. COMPARISON: 04/23/2019 IMPRESSION: There is new/increased left lung base consolidation. There isright basilar atelectasis. Subpulmonic pleural effusions cannot be excluded. The cardiomediastinal silhouette is magnified by technique with sternotomy wires. Signed: Yimi Harkins MDReport Verified Date/Time: 08:36:14 Reading Location: [facility] Radiology Reading Room POCT- GLUCOSE [id number] 07:40:00 Test Item Value Reference Range Comments POC-GLUCOSE METER (BEAKER) 119 mg/dL 70-110 TESTED AT [facility] [address] (test fecp=8444) [facility] [address] [id number] 03:28:00 Test Item Value Reference Range Comments MAGNESIUM (BEAKER) (test hgkj=383) 2.0 mg/dL 1.6-2.6 BASIC METABOLIC [id number] 03:28:00 Test Item Value Reference Range Comments SODIUM (BEAKER) (test 138 meq/L 136-145 eaxi=337) POTASSIUM (BEAKER) (test 3.9 meq/L 3.5-5.1 niif=734) CHLORIDE (BEAKER) (test 104 meq/L 98-107 syom=898) CO2 (BEAKER) (test 25 meq/L 22-29 jrxq=215) BLOOD UREA NITROGEN 9 mg/dL 7-21 (BEAKER) (test ueim=451) CREATININE (BEAKER) (test 0.69 mg/dL 0.57-1.25 bcxu=835) GLUCOSE RANDOM (BEAKER) 168 mg/dL 70-105 (test tfxz=503) CALCIUM (BEAKER) (test 8.3 mg/dL 8.4-10.2 xloy=686) EGFR (BEAKER) (test 115 mL/min/1.73 sq m ESTIMATED GFR IS NOT fnvh=2159) ACCURATE CREATININE CLEARANCE IN PREDICTING GLOMERULAR FILTRATION RATE. ESTIMATED GFR IS NOT APPLICABLE FOR DIALYSIS PATIENTS. CBC W/PLT COUNT & AUTO [id number] 03:00:00 Test Item Value Reference Range Comments WHITE BLOOD CELL COUNT (BEAKER) (test self=711) 6.6 K/ L 3.5-10.5 RED BLOOD CELL COUNT (BEAKER) (test jjoj=158) 3.92 M/ L 4.63-6.08 HEMOGLOBIN (BEAKER) (test pfam=524) 11.7 GM/DL 13.7-17.5 HEMATOCRIT (BEAKER) (test aokt=969) 36.2 % 40.1-51.0 MEAN CORPUSCULAR VOLUME (BEAKER) (test juyt=383) 92.3 fL 79.0-92.2 MEAN CORPUSCULAR HEMOGLOBIN (BEAKER) (test 29.8 pg 25.7-32.2 ihnm=863) MEAN CORPUSCULAR HEMOGLOBIN CONC (BEAKER) (test 32.3 GM/DL 32.3-36.5 valp=384) RED CELL DISTRIBUTION WIDTH (BEAKER) (test 13.0 % 11.6-14.4 asbk=953) PLATELET COUNT (BEAKER) (test bjkh=476) 246 K/CU MM 150-450 MEAN PLATELET VOLUME (BEAKER) (test wokw=640) 8.5 fL 9.4-12.4 NUCLEATED RED BLOOD CELLS (BEAKER) (test 0 /100 WBC 0-0 vhbr=669) NEUTROPHILS RELATIVE PERCENT (BEAKER) (test 60 % zttn=670) LYMPHOCYTES RELATIVE PERCENT (BEAKER) (test 28 % nwgk=806) MONOCYTES RELATIVE PERCENT (BEAKER) (test 7 % ioen=973) EOSINOPHILS RELATIVE PERCENT (BEAKER) (test 4 % eeja=052) BASOPHILS RELATIVE PERCENT (BEAKER) (test 0 % eijk=163) NEUTROPHILS ABSOLUTE COUNT (BEAKER) (test 4.01 K/ L 1.78-5.38 pzeh=433) LYMPHOCYTES ABSOLUTE COUNT (BEAKER) (test 1.86 K/ L 1.32-3.57 vjzr=498) MONOCYTES ABSOLUTE COUNT (BEAKER) (test 0.47 K/ L 0.30-0.82 zytm=157) EOSINOPHILS ABSOLUTE COUNT (BEAKER) (test 0.26 K/ L 0.04-0.54 wjpc=869) BASOPHILS ABSOLUTE COUNT (BEAKER) (test 0.02 K/ L 0.01-0.08 pfho=927) IMMATURE GRANULOCYTES-RELATIVE PERCENT (BEAKER) 0 % 0-1 (test qrdv=6305) POCT-GLUCOSE [id number] 21:36:00 Test Item Value Reference Range Comments POC-GLUCOSE METER (BEAKER) 273 mg/dL 70-110 TESTED AT [address] (test bdrf=6920) [place] [id number] POCT-GLUCOSE [id number] 17:43:00 Test Item Value Reference Range Comments POC-GLUCOSE METER (BEAKER) 239 mg/dL 70-110 TESTED AT [address] (test wlnh=8097) [place] [address] [id number] 14:55:00 Test Item Value Reference Range Comments POTASSIUM (BEAKER) (test gpul=828) 3.5 meq/L 3.5-5.1 Check Serum Potassium level 2 hours after oral potassium replacement completed or 30 min after intravenous potassium replacement.[id number] 14:55:00 Test Item Value Reference Range Comments MAGNESIUM (BEAKER) (test irok=626) 2.0 mg/dL 1.6-2.6 Check Serum Potassium level 2 hours after oral potassium replacement completed or 30 min after intravenous potassium replacement.HEMOGLOBIN [id number] 12:05 :00 Test Item Value Reference Range Comments HEMOGLOBIN A1C (BEAKER) (test pobp=023) 6.8 % 4.3-6.1 POCT-GLUCOSE [id number] 11:38:00 Test Item Value Reference Range Comments POC-GLUCOSE METER (BEAKER) 187 mg/dL 70-110 TESTED AT [address] (test cetp=7716) [place] [id number] C. DIFFICILE GDH [id number] 10:53:00 Test Item Value Reference Range Comments CDT TOXIN (test Negative Negative eazu=[id number]) CDT GDH ANTIGEN (test Negative Negative No indication of Clostridium vzso=[id number]) difficile infection and no colonization. Discontinue enteric isolation and therapy. Testing performed by [employer] Rapid Cassette Assay. For GDH, published sensitivity of the assay is 98.7% compared to cytotoxicity testing. For Toxin AB, published sensitivity is 87.8% and specificity 99.4% compared to cytotoxicity testing.Verification of kit performance was done by the [facility] Microbiology Lab prior to clinical use.POCT-GLUCOSE [id number] 07:48:00 Test Item Value Reference Range Comments POC-GLUCOSE METER (BEAKER) 191 mg/dL 70-110 TESTED AT [address] (test pufl=3124) [place] [id number] TSH/FREE T4 IF [id number] 07:01:00 Test Item Value Reference Range Comments THYROID STIMULATING HORMONE (BEAKER) (test 0.79 uIU/mL 0.35-4.94 xqoq=489) [id number] 06:52:00 Test Item Value Reference Range Comments MAGNESIUM (BEAKER) (test vdlq=652) 2.2 mg/dL 1.6-2.6 BASIC METABOLIC [id number] 06:52:00 Test Item Value Reference Range Comments SODIUM (BEAKER) (test 138 meq/L 136-145 jwsw=673) POTASSIUM (BEAKER) (test 4.0 meq/L 3.5-5.1 niie=009) CHLORIDE (BEAKER) (test 103 meq/L 98-107 ycmx=897) CO2 (BEAKER) (test 27 meq/L 22-29 aqsw=623) BLOOD UREA NITROGEN 8 mg/dL 7-21 (BEAKER) (test hcsd=807) CREATININE (BEAKER) (test 0.71 mg/dL 0.57-1.25 wdyi=267) GLUCOSE RANDOM (BEAKER) 207 mg/dL 70-105 (test tvky=685) CALCIUM (BEAKER) (test 8.8 mg/dL 8.4-10.2 nzeg=864) EGFR (BEAKER) (test 111 mL/min/1.73 sq m ESTIMATED GFR IS NOT kujr=9942) ACCURATE CREATININE CLEARANCE IN PREDICTING GLOMERULAR FILTRATION RATE. ESTIMATED GFR IS NOT APPLICABLE FOR DIALYSIS PATIENTS. CBC W/PLT COUNT & AUTO [id number] 05:55:00 Test Item Value Reference Range Comments WHITE BLOOD CELL COUNT (BEAKER) (test vfys=546) 6.1 K/ L 3.5-10.5 RED BLOOD CELL COUNT (BEAKER) (test halz=792) 4.02 M/ L 4.63-6.08 HEMOGLOBIN (BEAKER) (test qlgj=818) 11.9 GM/DL 13.7-17.5 HEMATOCRIT (BEAKER) (test jcvr=095) 36.9 % 40.1-51.0 MEAN CORPUSCULAR VOLUME (BEAKER) (test toqe=868) 91.8 fL 79.0-92.2 MEAN CORPUSCULAR HEMOGLOBIN (BEAKER) (test 29.6 pg 25.7-32.2 gpbh=555) MEAN CORPUSCULAR HEMOGLOBIN CONC (BEAKER) (test 32.2 GM/DL 32.3-36.5 prgp=365) RED CELL DISTRIBUTION WIDTH (BEAKER) (test 13.0 % 11.6-14.4 ilbn=518) PLATELET COUNT (BEAKER) (test gdzm=355) 298 K/CU MM 150-450 MEAN PLATELET VOLUME (BEAKER) (test igdh=862) 8.5 fL 9.4-12.4 NUCLEATED RED BLOOD CELLS (BEAKER) (test 0 /100 WBC 0-0 kxur=282) NEUTROPHILS RELATIVE PERCENT (BEAKER) (test 69 % cces=172) LYMPHOCYTES RELATIVE PERCENT (BEAKER) (test 22 % usqt=870) MONOCYTES RELATIVE PERCENT (BEAKER) (test 7 % oeqi=825) EOSINOPHILS RELATIVE PERCENT (BEAKER) (test 1 % bcob=656) BASOPHILS RELATIVE PERCENT (BEAKER) (test 0 % vnub=730) NEUTROPHILS ABSOLUTE COUNT (BEAKER) (test 4.23 K/ L 1.78-5.38 lvmz=075) LYMPHOCYTES ABSOLUTE COUNT (BEAKER) (test 1.37 K/ L 1.32-3.57 gbli=379) MONOCYTES ABSOLUTE COUNT (BEAKER) (test 0.42 K/ L 0.30-0.82 lwey=933) EOSINOPHILS ABSOLUTE COUNT (BEAKER) (test 0.07 K/ L 0.04-0.54 rhus=927) BASOPHILS ABSOLUTE COUNT (BEAKER) (test 0.02 K/ L 0.01-0.08 gomh=135) IMMATURE GRANULOCYTES-RELATIVE PERCENT (BEAKER) 0 % 0-1 (test zgcs=5986) RAD, CHEST, 1 VIEW, NON [id number] 05:45:00Reason for exam:->SHORTNESS OF BREATHShould this be performed at the bedside?->YesFINAL REPORT RAD, CHEST, 1 VIEW, NON DEPT INDICATION: SHORTNESS OF BREATH COMPARISON: Prior day's exam FINDINGS: Portable frontal view of the chest. IMPRESSION: Lungs and pleura: Unchanged airspace and pleural opacities. No pneumothorax.Heart and mediastinum: Stable contours.Stable surgical changes.Additional findings: None. Signed: Ozzie Avila Verified Date/Time: 04/23/2019 05:45:08 POCT-GLUCOSE [id number] 22:28:00 Test Item Value Reference Range Comments POC-GLUCOSE METER (BEAKER) 241 mg/dL 70-110 TESTED AT [address] (test npfi=8472) [facility] [address] [id number] 20:51:00 Test Item Value Reference Range Comments MAGNESIUM (BEAKER) (test iyiy=237) 1.8 mg/dL 1.6-2.6 CALCIUM, [id number] 20:38:00 Test Item Value Reference Range Comments CALCIUM IONIZED (BEAKER) (test zzln=454) 1.08 mmol/L 1.12-1.27 PH, BLOOD (BEAKER) (test sfei=7685) 7.39 POTASSIUM-STAT [id number] 20:37:00 Test Item Value Reference Range Comments POTASSIUM (BEAKER) (test nspr=312) 3.5 meq/L 3.6-5.5 POCT-GLUCOSE [id number] 18:32:00 Test Item Value Reference Range Comments POC-GLUCOSE METER (BEAKER) 260 mg/dL 70-110 TESTED AT [address] (test hran=5447) [place] [id number] POCT-GLUCOSE [id number] 12:42:00 Test Item Value Reference Range Comments POC-GLUCOSE METER (BEAKER) 187 mg/dL 70-110 TESTED AT [address] (test ooug=9692) [facility] [address] CBC W/PLT COUNT & AUTO [id number] 10:15:00 Test Item Value Reference Range Comments WHITE BLOOD CELL COUNT (BEAKER) (test ntxy=395) 3.7 K/ L 3.5-10.5 RED BLOOD CELL COUNT (BEAKER) (test wwdj=582) 3.91 M/ L 4.63-6.08 HEMOGLOBIN (BEAKER) (test ccsd=069) 11.6 GM/DL 13.7-17.5 HEMATOCRIT (BEAKER) (test wvty=828) 35.3 % 40.1-51.0 MEAN CORPUSCULAR VOLUME (BEAKER) (test fijq=950) 90.3 fL 79.0-92.2 MEAN CORPUSCULAR HEMOGLOBIN (BEAKER) (test 29.7 pg 25.7-32.2 ndct=666) MEAN CORPUSCULAR HEMOGLOBIN CONC (BEAKER) (test 32.9 GM/DL 32.3-36.5 hiux=988) RED CELL DISTRIBUTION WIDTH (BEAKER) (test 13.1 % 11.6-14.4 ennr=708) PLATELET COUNT (BEAKER) (test yedx=756) 279 K/CU MM 150-450 MEAN PLATELET VOLUME (BEAKER) (test wemz=994) 8.6 fL 9.4-12.4 NUCLEATED RED BLOOD CELLS (BEAKER) (test 0 /100 WBC 0-0 sbbc=217) (CELLAVISION MANUAL DIFF)2019-04-22 10:15:00 Test Item Value Reference Range Comments NEUTROPHILS - REL (CELLAVISION)(BEAKER) (test 74 % zhpu=5877) LYMPHOCYTES - REL (CELLAVISION)(BEAKER) (test 17 % wpds=3125) MONOCYTES - REL (CELLAVISION)(BEAKER) (test 6 % qszx=5936) BASOPHILS - REL (CELLAVISION)(BEAKER) (test 2 % nilh=4713) BANDS - REL (CELLAVISION)(BEAKER) (test lzqg=3585) 1 % 0-10 NEUTROPHILS - ABS (CELLAVISION)(BEAKER) (test 2.74 K/ul 1.78-5.38 uowt=9552) LYMPHOCYTES - ABS (CELLAVISION)(BEAKER) (test 0.63 K/ul 1.32-3.57 unbi=9274) MONOCYTES - ABS (CELLAVISION)(BEAKER) (test 0.22 K/uL 0.30-0.82 uicv=0335) BASOPHILS - ABS (CELLAVISION)(BEAKER) (test 0.07 K/uL 0.01-0.08 wuix=5328) BANDS - ABS (CELLAVISION)(BEAKER) (test yens=3866) 0.04 K/uL 0.00-0.80 TOTAL COUNTED (BEAKER) (test rove=4912) 100 WBC MORPHOLOGY (BEAKER) (test ylob=619) Normal PLT MORPHOLOGY (BEAKER) (test wqmd=560) Normal ANISOCYTOSIS (BEAKER) (test zlei=619) 1+ few MICROCYTES (BEAKER) (test viqs=927) 1+ few ARTIFACT (CELLAVISION)(BEAKER) (test vcte=3587) Present PLATELET CONCENTRATION (CELLAVISION)(BEAKER) (test Adequate rrrz=6631) Received comment: User comments: Slide comments:RAD, CHEST, 1 VIEW, NON [id number] 08:02:00Reason for exam:->SHORTNESS OF BREATHShould this be performed at the bedside?->YesFINAL REPORT CLINICAL HISTORY: SHORTNESS OF BREATH TECHNIQUE: 1 view of the chest. COMPARISON: 04/21/2019 IMPRESSION: The lung volumes are again seen with bibasilar pleural-parenchymal opacities unchanged. The cardiomediastinal silhouette is magnified by technique with sternotomywires. Signed: Yimi Harkins MDReport Verified Date/Time: 04/22 08:02:38 Reading Location: [facility] Radiology Reading Room [id number] 06:04:00 Test Item Value Reference Range Comments MAGNESIUM (BEAKER) (test qmtm=981) 2.3 mg/dL 1.6-2.6 BASIC METABOLIC [id number] 06:04:00 Test Item Value Reference Range Comments SODIUM (BEAKER) (test 138 meq/L 136-145 cwky=962) POTASSIUM (BEAKER) (test 4.2 meq/L 3.5-5.1 eovb=418) CHLORIDE (BEAKER) (test 103 meq/L 98-107 lnkb=650) CO2 (BEAKER) (test 29 meq/L 22-29 wphh=021) BLOOD UREA NITROGEN 8 mg/dL 7-21 (BEAKER) (test hwrt=588) CREATININE (BEAKER) (test 0.66 mg/dL 0.57-1.25 oboy=502) GLUCOSE RANDOM (BEAKER) 201 mg/dL 70-105 (test hoad=643) CALCIUM (BEAKER) (test 8.5 mg/dL 8.4-10.2 jbus=753) EGFR (BEAKER) (test 121 mL/min/1.73 sq m ESTIMATED GFR IS NOT uwbq=5007) ACCURATE CREATININE CLEARANCE IN PREDICTING GLOMERULAR FILTRATION RATE. ESTIMATED GFR IS NOT APPLICABLE FOR DIALYSIS PATIENTS. TROPONIN [id number] 06:03:00 Test Item Value Reference Range Comments TROPONIN I (BEAKER) (test iioa=226) 0.01 ng/mL 0.00-0.03 Troponin I (TnI) levels [...] and persistent tachyarrhythmia.CT, EXTREMITY, LOWER WITHOUT CONTRAST, [id number] 04:17:00Extend to ankleFINAL REPORT CLINICAL HISTORY: Lower [...] MDReport Verified Date/Time: 04/22/2019 04:17:42 Reading Location: [address] Reading Room Electronically signed by: BLAIR DANG M.D. on 04:17 AMCT, CHEST WITH IV CONTRAST- PE TEST [id number] 04:11: 00With and without contrast per surgical [...] MDReport Verified Date/Time: 04/22/2019 04:11:13 Reading Location: [address] Reading Room [id number] 00:10:00 Test Item Value Reference Range Comments TROPONIN I (BEAKER) (test ntjh=618) < ng/mL 0.00-0.03 Troponin I (TnI) levels [...] completed or 30 min after intravenous potassium replacement.[id number] 23:56:00 Test Item Value Reference Range Comments POTASSIUM (BEAKER) (test kogg=474) 3.9 meq/L 3.5-5.1 Check Serum Potassium level 2 hours after oral potassium replacement completed or 30 min after intravenous potassium replacement.[id number] 23:56:00 Test Item Value Reference Range Comments MAGNESIUM (BEAKER) (test pwbo=283) 1.9 mg/dL 1.6-2.6 Check Serum Potassium level 2 hours after oral potassium replacement completed or 30 min after intravenous potassium replacement.CBC W/PLT COUNT & AUTO [id number] 23:38:00 Test Item Value Reference Range Comments WHITE BLOOD CELL COUNT (BEAKER) (test xqxl=562) 4.3 K/ L 3.5-10.5 RED BLOOD CELL COUNT (BEAKER) (test zdvb=175) 3.86 M/ L 4.63-6.08 HEMOGLOBIN (BEAKER) (test suvw=222) 11.6 GM/DL 13.7-17.5 HEMATOCRIT (BEAKER) (test ztxx=377) 35.3 % 40.1-51.0 MEAN CORPUSCULAR VOLUME (BEAKER) (test fmnl=546) 91.5 fL 79.0-92.2 MEAN CORPUSCULAR HEMOGLOBIN (BEAKER) (test 30.1 pg 25.7-32.2 wfxr=830) MEAN CORPUSCULAR HEMOGLOBIN CONC (BEAKER) (test 32.9 GM/DL 32.3-36.5 noex=615) RED CELL DISTRIBUTION WIDTH (BEAKER) (test 13.0 % 11.6-14.4 amyn=710) PLATELET COUNT (BEAKER) (test guzo=207) 286 K/CU MM 150-450 MEAN PLATELET VOLUME (BEAKER) (test qaah=377) 8.6 fL 9.4-12.4 NUCLEATED RED BLOOD CELLS (BEAKER) (test 0 /100 WBC 0-0 bilv=468) NEUTROPHILS RELATIVE PERCENT (BEAKER) (test 63 % wbwx=844) LYMPHOCYTES RELATIVE PERCENT (BEAKER) (test 25 % wsiz=007) MONOCYTES RELATIVE PERCENT (BEAKER) (test 9 % iyqe=605) EOSINOPHILS RELATIVE PERCENT (BEAKER) (test 3 % ofrp=107) BASOPHILS RELATIVE PERCENT (BEAKER) (test 0 % wkdg=233) NEUTROPHILS ABSOLUTE COUNT (BEAKER) (test 2.70 K/ L 1.78-5.38 ecps=517) LYMPHOCYTES ABSOLUTE COUNT (BEAKER) (test 1.05 K/ L 1.32-3.57 xcvj=227) MONOCYTES ABSOLUTE COUNT (BEAKER) (test 0.40 K/ L 0.30-0.82 ndbv=102) EOSINOPHILS ABSOLUTE COUNT (BEAKER) (test 0.11 K/ L 0.04-0.54 dhmk=676) BASOPHILS ABSOLUTE COUNT (BEAKER) (test 0.01 K/ L 0.01-0.08 yesv=076) IMMATURE GRANULOCYTES-RELATIVE PERCENT (BEAKER) 1 % 0-1 (test tlbe=5740) POCT-GLUCOSE [id number] 22:02:00 Test Item Value Reference Range Comments POC-GLUCOSE METER (BEAKER) 227 mg/dL 70-110 TESTED AT [address] (test ojxo=6148) [facility] [address] [id number] 21:03:00 Test Item Value Reference Range Comments D-DIMER QUANTITATIVE (BEAKER) (test qciy=191) 3.21 MG/L FEU <0.50 Intended Use: The [...] exclusion of thrombosis is within 95-100% range.TROPONIN [id number] 20:59:00 Test Item Value Reference Range Comments TROPONIN I (BEAKER) (test fpvu=140) < ng/mL 0.00-0.03 Troponin I (TnI) levels [...] acute neurological disease, and persistent tachyarrhythmia.HEPATIC FUNCTION [id number] 20:53: 00 Test Item Value Reference Range Comments TOTAL PROTEIN (BEAKER) (test jikt=857) 6.8 gm/dL 6.0-8.3 ALBUMIN (BEAKER) (test rpsg=4354) 3.6 g/dL 3.5-5.0 BILIRUBIN TOTAL (BEAKER) (test udhw=086) 0.5 mg/dL 0.2-1.2 BILIRUBIN DIRECT (BEAKER) (test nbqt=335) 0.2 mg/dL 0.1-0.5 ALKALINE PHOSPHATASE (BEAKER) (test wnio=104) 99 U/L 40-150 AST (SGOT) (BEAKER) (test iueq=307) 13 U/L 5-34 ALT (SGPT) (BEAKER) (test djoc=726) 10 U/L 6-55 LACTIC ACID, [id number] 20:48:00 Test Item Value Reference Range Comments LACTATE BLOOD VENOUS (2) 1.4 mmol/L 0.5-2.2 Specimen slightly hemolyzed (BEAKER) (test kotl=5894) BLOOD GAS, [id number] 20:17:00 Test Item Value Reference Range Comments PH VENOUS (BEAKER) (test alik=614) 7.38 7.32-7.42 PCO2 VENOUS (BEAKER) (test melx=960) 52 mmHg 41-51 PO2 VENOUS (BEAKER) (test kcmn=191) 47 mmHg 25-40 O2 SATURATION VENOUS (BEAKER) (test btcm=478) 80.9 % 40.0-70.0 HCO3 VENOUS (BEAKER) (test djkc=127) 30 mmol/L 21-29 BASE EXCESS VENOUS (BEAKER) (test undh=013) 3.7 mmol/L -2.0-3.0 PATIENT TEMPERATURE (BEAKER) (test qvdc=8456) 37.0 C FIO2 (BEAKER) (test xmqg=7265) 100.0 % [id number] 18:36:00 Test Item Value Reference Range Comments PROCALCITONIN (BEAKER) (test hmjl=4923) < ng/mL <0.05 SEPSIS RISK (ng/mL)Low: 0.05-0.50Intermediate: 0.51-2.00High: & gt;=[id number] 18:24:00 Test Item Value Reference Range Comments MAGNESIUM (BEAKER) (test ggdo=347) 0.9 mg/dL 1.6-2.6 [id number] 18:17:00 Test Item Value Reference Range Comments PHOSPHORUS (BEAKER) (test nebu=540) 2.5 mg/dL 2.3-4.7 LACTIC ACID, [id number] 18:15:00 Test Item Value Reference Range Comments LACTATE BLOOD VENOUS (2) (BEAKER) (test 2.0 mmol/L 0.5-2.2 vuuy=4824) PROTHROMBIN TIME/[id number] 18:09:00 Test Item Value Reference Range Comments PROTIME (BEAKER) (test dokd=998) 15.8 seconds 11.9-14.2 INR (BEAKER) (test vufo=699) 1.3 <=5.9 Effective 03/27/2019: PT Reference Range ChangeNew: 11.9-14.2 Previous: 11.7- 14.7RECOMMENDED COUMADIN/WARFARIN INR THERAPY RANGESSTANDARD DOSE: 2.0-3.0 Includes: PROPHYLAXIS for venous thrombosis, systemic embolization; TREATMENT for venous thrombosis and/or pulmonary embolus.HIGH RISK: Target INR is2.5-3.5 for patients wiht mechanical heart valves.OXYGEN SATURATION, [id number] 18:04:00 Test Item Value Reference Range Comments O2 SATURATION (MEASURED) (BEAKER) (test bxtw=4566) 84.9 % If patient has internal jugular ( IJ) or subclavian central line or PICC line. Draw from distal port. Label as central venous oxygen.TROPONIN [id number] 16:28 :00 Test Item Value Reference Range Comments TROPONIN I (BEAKER) (test ufgk=154) < ng/mL 0.00-0.03 Troponin I (TnI) levels [...] acute neurological disease, and persistent tachyarrhythmia.POCT-LACTIC ACID, [id number] 16:27 :00 Test Item Value Reference Range Comments POC-LACTIC ACID, VENOUS 3.3 mmol/L 0.9-1.7 TESTED AT [facility] [address] (BEAKER) (test cauq=2398) [facility] [address] BASIC METABOLIC [id number] 16:19:00 Test Item Value Reference Range Comments SODIUM (BEAKER) (test 134 meq/L 136-145 euvt=642) POTASSIUM (BEAKER) (test 4.5 meq/L 3.5-5.1 Specimen moderately wysc=516) hemolyzed CHLORIDE (BEAKER) (test 101 meq/L 98-107 bnsi=557) CO2 (BEAKER) (test 22 meq/L 22-29 rdlm=802) BLOOD UREA NITROGEN 9 mg/dL 7-21 (BEAKER) (test ylti=453) CREATININE (BEAKER) (test 0.75 mg/dL 0.57-1.25 Specimen moderately jnph=371) hemolyzed GLUCOSE RANDOM (BEAKER) 181 mg/dL 70-105 (test vuzl=995) CALCIUM (BEAKER) (test 8.7 mg/dL 8.4-10.2 rkbo=708) EGFR (BEAKER) (test 105 mL/min/1.73 sq m ESTIMATED GFR IS NOT hkyh=3583) ACCURATE CREATININE CLEARANCE IN PREDICTING GLOMERULAR FILTRATION RATE. ESTIMATED GFR IS NOT APPLICABLE FOR DIALYSIS PATIENTS. BLOOD GAS, [id number] 16:10:00 Test Item Value Reference Range Comments PH ARTERIAL (BEAKER) (test svlp=720) 7.43 7.35-7.45 PCO2 ARTERIAL (BEAKER) (test fkwk=904) 43 mmHg 35-45 PO2 ARTERIAL (BEAKER) (test htcl=944) 141 mmHg 80-90 O2 SATURATION ARTERIAL (BEAKER) (test tbem=093) 98.9 % 96.0-97.0 HCO3 ARTERIAL (BEAKER) (test hmuc=439) 28 mmol/L 21-29 BASE EXCESS ARTERIAL (BEAKER) (test kose=816) 3.1 mmol/L -2.0-3.0 PATIENT TEMPERATURE (BEAKER) (test kbuc=1340) 36.5 C FIO2 (BEAKER) (test enof=4235) 60.0 % RAD, CHEST, 1 VIEW, NON [id number] 16:08:00Reason for exam:->SHORTNESS OF BREATHShould this be performed at the bedside?->YesFINAL REPORT Comparison: 04/07/2019 TECHNIQUE: Single view of the chest FINDINGS: Lung volumes are low. Bibasilar opacities may represent small pleural effusions with adjacent airspace disease. Cardiac silhouette is enlarged. Post surgical changes in the mediastinum. No acute skeletal abnormality. Signed: Shailesh Harding MDReport Verified Date/Time: 04/21/2019 16:08:26 Reading Location: [address] Transitional Reading Room POCT-GLUCOSE [id number] 13:16:00 Test Item Value Reference Range Comments POC-GLUCOSE METER (BEAKER) 231 mg/dL 70-110 TESTED AT [address] (test rrgh=6499) [place] [id number] POCT-GLUCOSE [id number] 07:07:00 Test Item Value Reference Range Comments POC-GLUCOSE METER (BEAKER) 157 mg/dL 70-110 TESTED AT [address] (test ssgm=4413) [facility] [address] [id number] 05:11:00 Test Item Value Reference Range Comments MAGNESIUM (BEAKER) (test came=101) 2.0 mg/dL 1.6-2.6 BASIC METABOLIC [id number] 05:11:00 Test Item Value Reference Range Comments SODIUM (BEAKER) (test 137 meq/L 136-145 jfvd=035) POTASSIUM (BEAKER) (test 3.8 meq/L 3.5-5.1 tydd=536) CHLORIDE (BEAKER) (test 101 meq/L 98-107 djag=454) CO2 (BEAKER) (test 28 meq/L 22-29 oiwj=937) BLOOD UREA NITROGEN 10 mg/dL 7-21 (BEAKER) (test tvco=343) CREATININE (BEAKER) (test 0.66 mg/dL 0.57-1.25 qhkm=038) GLUCOSE RANDOM (BEAKER) 164 mg/dL 70-105 (test gynm=427) CALCIUM (BEAKER) (test 8.6 mg/dL 8.4-10.2 rduq=779) EGFR (BEAKER) (test 121 mL/min/1.73 sq m ESTIMATED GFR IS NOT tpwp=6829) ACCURATE CREATININE CLEARANCE IN PREDICTING GLOMERULAR FILTRATION RATE. ESTIMATED GFR IS NOT APPLICABLE FOR DIALYSIS PATIENTS. CBC W/PLT COUNT & AUTO [id number] 04:45:00 Test Item Value Reference Range Comments WHITE BLOOD CELL COUNT (BEAKER) (test pdwn=575) 8.5 K/ L 3.5-10.5 RED BLOOD CELL COUNT (BEAKER) (test mqsi=316) 3.52 M/ L 4.63-6.08 HEMOGLOBIN (BEAKER) (test ypra=714) 10.7 GM/DL 13.7-17.5 HEMATOCRIT (BEAKER) (test zytn=142) 31.9 % 40.1-51.0 MEAN CORPUSCULAR VOLUME (BEAKER) (test kgwq=202) 90.6 fL 79.0-92.2 MEAN CORPUSCULAR HEMOGLOBIN (BEAKER) (test 30.4 pg 25.7-32.2 bvom=575) MEAN CORPUSCULAR HEMOGLOBIN CONC (BEAKER) (test 33.5 GM/DL 32.3-36.5 bkwf=191) RED CELL DISTRIBUTION WIDTH (BEAKER) (test 12.8 % 11.6-14.4 zgkc=795) PLATELET COUNT (BEAKER) (test hbcc=253) 262 K/CU MM 150-450 MEAN PLATELET VOLUME (BEAKER) (test vswg=504) 8.8 fL 9.4-12.4 NUCLEATED RED BLOOD CELLS (BEAKER) (test 0 /100 WBC 0-0 tbwz=882) NEUTROPHILS RELATIVE PERCENT (BEAKER) (test 68 % qoes=557) LYMPHOCYTES RELATIVE PERCENT (BEAKER) (test 19 % ozvp=422) MONOCYTES RELATIVE PERCENT (BEAKER) (test 9 % vwvi=345) EOSINOPHILS RELATIVE PERCENT (BEAKER) (test 3 % cald=073) BASOPHILS RELATIVE PERCENT (BEAKER) (test 0 % ovfp=929) NEUTROPHILS ABSOLUTE COUNT (BEAKER) (test 5.76 K/ L 1.78-5.38 gmsp=674) LYMPHOCYTES ABSOLUTE COUNT (BEAKER) (test 1.64 K/ L 1.32-3.57 xeky=344) MONOCYTES ABSOLUTE COUNT (BEAKER) (test 0.73 K/ L 0.30-0.82 cmez=756) EOSINOPHILS ABSOLUTE COUNT (BEAKER) (test 0.25 K/ L 0.04-0.54 zaqd=270) BASOPHILS ABSOLUTE COUNT (BEAKER) (test 0.03 K/ L 0.01-0.08 xxbf=193) IMMATURE GRANULOCYTES-RELATIVE PERCENT (BEAKER) 1 % 0-1 (test aolh=6065) POCT-GLUCOSE [id number] 22:03:00 Test Item Value Reference Range Comments POC-GLUCOSE METER (BEAKER) 187 mg/dL 70-110 TESTED AT [address] (test begl=5688) [place] [id number] POCT-GLUCOSE [id number] 17:09:00 Test Item Value Reference Range Comments POC-GLUCOSE METER (BEAKER) 265 mg/dL 70-110 TESTED AT [address] (test crqf=2874) [place] [id number] LACTIC ACID, [id number] 13:50:00 Test Item Value Reference Range Comments LACTATE BLOOD VENOUS (2) 1.4 mmol/L 0.5-2.2 Specimen slightly hemolyzed (BEAKER) (test kwxw=3499) [id number] 12:18:00 Test Item Value Reference Range Comments MAGNESIUM (BEAKER) (test taar=959) 1.5 mg/dL 1.6-2.6 BASIC METABOLIC [id number] 12:18:00 Test Item Value Reference Range Comments SODIUM (BEAKER) (test 134 meq/L 136-145 aotf=048) POTASSIUM (BEAKER) (test 3.5 meq/L 3.5-5.1 xzlt=814) CHLORIDE (BEAKER) (test 98 meq/L 98-107 tdhw=832) CO2 (BEAKER) (test 26 meq/L 22-29 ychf=309) BLOOD UREA NITROGEN 13 mg/dL 7-21 (BEAKER) (test sbwn=497) CREATININE (BEAKER) (test 0.68 mg/dL 0.57-1.25 ejiw=940) GLUCOSE RANDOM (BEAKER) 209 mg/dL 70-105 (test hcnp=891) CALCIUM (BEAKER) (test 8.5 mg/dL 8.4-10.2 rbas=204) EGFR (BEAKER) (test 117 mL/min/1.73 sq m ESTIMATED GFR IS NOT qsdq=7099) ACCURATE CREATININE CLEARANCE IN PREDICTING GLOMERULAR FILTRATION RATE. ESTIMATED GFR IS NOT APPLICABLE FOR DIALYSIS PATIENTS. POCT-GLUCOSE [id number] 12:07:00 Test Item Value Reference Range Comments POC-GLUCOSE METER (BEAKER) 222 mg/dL 70-110 TESTED AT [facility] [address] [facility] (test lgzp=6653) [facility] [address] CBC W/PLT COUNT & AUTO [id number] 12:02:00 Test Item Value Reference Range Comments WHITE BLOOD CELL COUNT (BEAKER) (test upzd=439) 9.9 K/ L 3.5-10.5 RED BLOOD CELL COUNT (BEAKER) (test rzka=261) 3.65 M/ L 4.63-6.08 HEMOGLOBIN (BEAKER) (test hlvf=816) 11.2 GM/DL 13.7-17.5 HEMATOCRIT (BEAKER) (test zese=956) 32.5 % 40.1-51.0 MEAN CORPUSCULAR VOLUME (BEAKER) (test jdfb=710) 89.0 fL 79.0-92.2 MEAN CORPUSCULAR HEMOGLOBIN (BEAKER) (test 30.7 pg 25.7-32.2 ddiu=283) MEAN CORPUSCULAR HEMOGLOBIN CONC (BEAKER) (test 34.5 GM/DL 32.3-36.5 cbbl=777) RED CELL DISTRIBUTION WIDTH (BEAKER) (test 12.6 % 11.6-14.4 yfrq=742) PLATELET COUNT (BEAKER) (test qrco=877) 304 K/CU MM 150-450 MEAN PLATELET VOLUME (BEAKER) (test dfhd=969) 9.1 fL 9.4-12.4 NUCLEATED RED BLOOD CELLS (BEAKER) (test 0 /100 WBC 0-0 oqji=313) NEUTROPHILS RELATIVE PERCENT (BEAKER) (test 72 % oegb=653) LYMPHOCYTES RELATIVE PERCENT (BEAKER) (test 16 % wtsy=404) MONOCYTES RELATIVE PERCENT (BEAKER) (test 8 % rztg=449) EOSINOPHILS RELATIVE PERCENT (BEAKER) (test 2 % nbjc=674) BASOPHILS RELATIVE PERCENT (BEAKER) (test 1 % gwjg=877) NEUTROPHILS ABSOLUTE COUNT (BEAKER) (test 7.14 K/ L 1.78-5.38 hjoq=268) LYMPHOCYTES ABSOLUTE COUNT (BEAKER) (test 1.61 K/ L 1.32-3.57 kjmr=941) MONOCYTES ABSOLUTE COUNT (BEAKER) (test 0.81 K/ L 0.30-0.82 femj=475) EOSINOPHILS ABSOLUTE COUNT (BEAKER) (test 0.22 K/ L 0.04-0.54 cmxc=289) BASOPHILS ABSOLUTE COUNT (BEAKER) (test 0.05 K/ L 0.01-0.08 scld=597) IMMATURE GRANULOCYTES-RELATIVE PERCENT (BEAKER) 1 % 0-1 (test tkqy=3195) POCT-GLUCOSE [id number] 08:20:00 Test Item Value Reference Range Comments POC-GLUCOSE METER (BEAKER) 186 mg/dL 70-110 TESTED AT [address] (test xqao=5093) [place] [address] POCT-GLUCOSE [id number] 22:28:00 Test Item Value Reference Range Comments POC-GLUCOSE METER (BEAKER) 249 mg/dL 70-110 TESTED AT [address] (test jeod=8355) [place] [id number] POCT-GLUCOSE [id number] 16:58:00 Test Item Value Reference Range Comments POC-GLUCOSE METER (BEAKER) 246 mg/dL 70-110 TESTED AT [address] (test jdmw=7543) [place] [id number] POCT-GLUCOSE [id number] 12:30:00 Test Item Value Reference Range Comments POC-GLUCOSE METER (BEAKER) 228 mg/dL 70-110 TESTED AT [address] (test ekxr=5519) [place] [id number] POCT-GLUCOSE [id number] 08:57:00 Test Item Value Reference Range Comments POC-GLUCOSE METER (BEAKER) 196 mg/dL 70-110 TESTED AT [address] (test tttl=5030) [place] [id number] 08:00:00 Test Item Value Reference Range Comments MAGNESIUM (BEAKER) (test stny=145) 1.8 mg/dL 1.6-2.6 BASIC METABOLIC [id number] 08:00:00 Test Item Value Reference Range Comments SODIUM (BEAKER) (test 134 meq/L 136-145 hpdm=807) POTASSIUM (BEAKER) (test 3.5 meq/L 3.5-5.1 fnbo=369) CHLORIDE (BEAKER) (test 98 meq/L 98-107 wlrr=090) CO2 (BEAKER) (test 30 meq/L 22-29 shks=063) BLOOD UREA NITROGEN 15 mg/dL 7-21 (BEAKER) (test ooiz=497) CREATININE (BEAKER) (test 0.66 mg/dL 0.57-1.25 yift=535) GLUCOSE RANDOM (BEAKER) 175 mg/dL 70-105 (test rrqj=911) CALCIUM (BEAKER) (test 8.5 mg/dL 8.4-10.2 fdau=447) EGFR (BEAKER) (test 121 mL/min/1.73 sq m ESTIMATED GFR IS NOT twxj=4804) ACCURATE CREATININE CLEARANCE IN PREDICTING GLOMERULAR FILTRATION RATE. ESTIMATED GFR IS NOT APPLICABLE FOR DIALYSIS PATIENTS. CBC W/PLT COUNT & AUTO [id number] 05:01:00 Test Item Value Reference Range Comments WHITE BLOOD CELL COUNT (BEAKER) (test fung=943) 10.7 K/ L 3.5-10.5 RED BLOOD CELL COUNT (BEAKER) (test qfol=845) 3.65 M/ L 4.63-6.08 HEMOGLOBIN (BEAKER) (test pshc=623) 11.0 GM/DL 13.7-17.5 HEMATOCRIT (BEAKER) (test luxe=456) 33.4 % 40.1-51.0 MEAN CORPUSCULAR VOLUME (BEAKER) (test xwix=145) 91.5 fL 79.0-92.2 MEAN CORPUSCULAR HEMOGLOBIN (BEAKER) (test 30.1 pg 25.7-32.2 wcst=210) MEAN CORPUSCULAR HEMOGLOBIN CONC (BEAKER) (test 32.9 GM/DL 32.3-36.5 qilz=737) RED CELL DISTRIBUTION WIDTH (BEAKER) (test 12.6 % 11.6-14.4 dlas=646) PLATELET COUNT (BEAKER) (test ueot=066) 244 K/CU MM 150-450 MEAN PLATELET VOLUME (BEAKER) (test lqha=338) 9.5 fL 9.4-12.4 NUCLEATED RED BLOOD CELLS (BEAKER) (test 0 /100 WBC 0-0 rwnl=608) NEUTROPHILS RELATIVE PERCENT (BEAKER) (test 70 % uskk=447) LYMPHOCYTES RELATIVE PERCENT (BEAKER) (test 18 % afry=838) MONOCYTES RELATIVE PERCENT (BEAKER) (test 9 % bghp=678) EOSINOPHILS RELATIVE PERCENT (BEAKER) (test 3 % hcqa=720) BASOPHILS RELATIVE PERCENT (BEAKER) (test 1 % erpl=091) NEUTROPHILS ABSOLUTE COUNT (BEAKER) (test 7.44 K/ L 1.78-5.38 qvhb=176) LYMPHOCYTES ABSOLUTE COUNT (BEAKER) (test 1.91 K/ L 1.32-3.57 yows=789) MONOCYTES ABSOLUTE COUNT (BEAKER) (test 0.92 K/ L 0.30-0.82 mjcz=003) EOSINOPHILS ABSOLUTE COUNT (BEAKER) (test 0.29 K/ L 0.04-0.54 twjp=727) BASOPHILS ABSOLUTE COUNT (BEAKER) (test 0.06 K/ L 0.01-0.08 blvp=882) IMMATURE GRANULOCYTES-RELATIVE PERCENT (BEAKER) 1 % 0-1 (test iyuc=1342) POCT-GLUCOSE [id number] 22:17:00 Test Item Value Reference Range Comments POC-GLUCOSE METER (BEAKER) 197 mg/dL 70-110 TESTED AT [address] (test wsjr=2362) [place] [address] POCT-GLUCOSE [id number] 17:38:00 Test Item Value Reference Range Comments POC-GLUCOSE METER (BEAKER) 226 mg/dL 70-110 TESTED AT [address] (test rsnd=8234) [place] [address] POCT-GLUCOSE [id number] 12:21:00 Test Item Value Reference Range Comments POC-GLUCOSE METER (BEAKER) 194 mg/dL 70-110 TESTED AT [address] (test qkoj=0348) [place] [address] POCT-GLUCOSE [id number] 09:25:00 Test Item Value Reference Range Comments POC-GLUCOSE METER (BEAKER) 169 mg/dL 70-110 TESTED AT [address] (test dowp=3463) [place] [address] BASIC METABOLIC [id number] 06:56:00 Test Item Value Reference Range Comments SODIUM (BEAKER) (test 137 meq/L 136-145 acoq=199) POTASSIUM (BEAKER) (test 3.7 meq/L 3.5-5.1 ldhj=333) CHLORIDE (BEAKER) (test 101 meq/L 98-107 zasu=216) CO2 (BEAKER) (test 29 meq/L 22-29 iqgu=770) BLOOD UREA NITROGEN 17 mg/dL 7-21 (BEAKER) (test qmim=921) CREATININE (BEAKER) (test 0.64 mg/dL 0.57-1.25 zopa=068) GLUCOSE RANDOM (BEAKER) 192 mg/dL 70-105 (test fups=467) CALCIUM (BEAKER) (test 8.2 mg/dL 8.4-10.2 ghxa=478) EGFR (BEAKER) (test 126 mL/min/1.73 sq m ESTIMATED GFR IS NOT phjq=6348) ACCURATE CREATININE CLEARANCE IN PREDICTING GLOMERULAR FILTRATION RATE. ESTIMATED GFR IS NOT APPLICABLE FOR DIALYSIS PATIENTS. [id number] 06:47:00 Test Item Value Reference Range Comments MAGNESIUM (BEAKER) (test tcuf=579) 2.0 mg/dL 1.6-2.6 CBC W/PLT COUNT & AUTO [id number] 06:17:00 Test Item Value Reference Range Comments WHITE BLOOD CELL COUNT (BEAKER) (test ndhj=658) 9.2 K/ L 3.5-10.5 RED BLOOD CELL COUNT (BEAKER) (test bfnm=403) 3.43 M/ L 4.63-6.08 HEMOGLOBIN (BEAKER) (test gpgy=778) 10.3 GM/DL 13.7-17.5 HEMATOCRIT (BEAKER) (test prxm=465) 31.3 % 40.1-51.0 MEAN CORPUSCULAR VOLUME (BEAKER) (test znpe=942) 91.3 fL 79.0-92.2 MEAN CORPUSCULAR HEMOGLOBIN (BEAKER) (test 30.0 pg 25.7-32.2 riyl=716) MEAN CORPUSCULAR HEMOGLOBIN CONC (BEAKER) (test 32.9 GM/DL 32.3-36.5 lzez=792) RED CELL DISTRIBUTION WIDTH (BEAKER) (test 12.9 % 11.6-14.4 ajjq=279) PLATELET COUNT (BEAKER) (test ddxz=650) 185 K/CU MM 150-450 MEAN PLATELET VOLUME (BEAKER) (test qrup=655) 9.8 fL 9.4-12.4 NUCLEATED RED BLOOD CELLS (BEAKER) (test 0 /100 WBC 0-0 fdqq=144) NEUTROPHILS RELATIVE PERCENT (BEAKER) (test 75 % glhd=564) LYMPHOCYTES RELATIVE PERCENT (BEAKER) (test 14 % ezsh=985) MONOCYTES RELATIVE PERCENT (BEAKER) (test 7 % fqnt=467) EOSINOPHILS RELATIVE PERCENT (BEAKER) (test 3 % tcsz=345) BASOPHILS RELATIVE PERCENT (BEAKER) (test 0 % kmtp=162) NEUTROPHILS ABSOLUTE COUNT (BEAKER) (test 6.88 K/ L 1.78-5.38 ahin=744) LYMPHOCYTES ABSOLUTE COUNT (BEAKER) (test 1.31 K/ L 1.32-3.57 whev=036) MONOCYTES ABSOLUTE COUNT (BEAKER) (test 0.67 K/ L 0.30-0.82 setv=014) EOSINOPHILS ABSOLUTE COUNT (BEAKER) (test 0.28 K/ L 0.04-0.54 knom=550) BASOPHILS ABSOLUTE COUNT (BEAKER) (test 0.03 K/ L 0.01-0.08 srov=831) IMMATURE GRANULOCYTES-RELATIVE PERCENT (BEAKER) 0 % 0-1 (test uocy=2701) POCT-GLUCOSE [id number] 21:52:00 Test Item Value Reference Range Comments POC-GLUCOSE METER (BEAKER) 240 mg/dL 70-110 TESTED AT [address] (test szpj=7684) [place] [id number] POCT-GLUCOSE [id number] 18:12:00 Test Item Value Reference Range Comments POC-GLUCOSE METER (BEAKER) 227 mg/dL 70-110 TESTED AT [address] (test balo=2931) [facility] [address] POCT-GLUCOSE [id number] 13:29:00 Test Item Value Reference Range Comments POC-GLUCOSE METER (BEAKER) 222 mg/dL 70-110 TESTED AT [address] (test dagx=7601) [facility] [address] POCT-GLUCOSE [id number] 09:54:00 Test Item Value Reference Range Comments POC-GLUCOSE METER (BEAKER) 192 mg/dL 70-110 TESTED AT [address] (test word=9470) [facility] [address] [id number] 07:43:00 Test Item Value Reference Range Comments MAGNESIUM (BEAKER) (test dwad=589) 1.8 mg/dL 1.6-2.6 BASIC METABOLIC [id number] 07:43:00 Test Item Value Reference Range Comments SODIUM (BEAKER) (test 137 meq/L 136-145 vwnb=377) POTASSIUM (BEAKER) (test 3.9 meq/L 3.5-5.1 fcmd=083) CHLORIDE (BEAKER) (test 102 meq/L 98-107 odkm=189) CO2 (BEAKER) (test 28 meq/L 22-29 sfvb=682) BLOOD UREA NITROGEN 12 mg/dL 7-21 (BEAKER) (test zcoj=522) CREATININE (BEAKER) (test 0.61 mg/dL 0.57-1.25 lnua=759) GLUCOSE RANDOM (BEAKER) 206 mg/dL 70-105 (test qacn=716) CALCIUM (BEAKER) (test 8.5 mg/dL 8.4-10.2 qcpu=561) EGFR (BEAKER) (test 133 mL/min/1.73 sq m ESTIMATED GFR IS NOT ncgy=6536) ACCURATE CREATININE CLEARANCE IN PREDICTING GLOMERULAR FILTRATION RATE. ESTIMATED GFR IS NOT APPLICABLE FOR DIALYSIS PATIENTS. CBC W/PLT COUNT & AUTO [id number] 07:11:00 Test Item Value Reference Range Comments WHITE BLOOD CELL COUNT (BEAKER) (test opet=205) 11.0 K/ L 3.5-10.5 RED BLOOD CELL COUNT (BEAKER) (test ngjy=618) 3.63 M/ L 4.63-6.08 HEMOGLOBIN (BEAKER) (test odkc=208) 10.8 GM/DL 13.7-17.5 HEMATOCRIT (BEAKER) (test wufm=882) 33.0 % 40.1-51.0 MEAN CORPUSCULAR VOLUME (BEAKER) (test hgwr=408) 90.9 fL 79.0-92.2 MEAN CORPUSCULAR HEMOGLOBIN (BEAKER) (test 29.8 pg 25.7-32.2 nkzp=987) MEAN CORPUSCULAR HEMOGLOBIN CONC (BEAKER) (test 32.7 GM/DL 32.3-36.5 slzi=031) RED CELL DISTRIBUTION WIDTH (BEAKER) (test 13.1 % 11.6-14.4 fivq=614) PLATELET COUNT (BEAKER) (test dwgi=695) 157 K/CU MM 150-450 MEAN PLATELET VOLUME (BEAKER) (test eiuz=150) 9.7 fL 9.4-12.4 NUCLEATED RED BLOOD CELLS (BEAKER) (test 0 /100 WBC 0-0 fkhe=410) NEUTROPHILS RELATIVE PERCENT (BEAKER) (test 82 % pvro=727) LYMPHOCYTES RELATIVE PERCENT (BEAKER) (test 10 % zhai=218) MONOCYTES RELATIVE PERCENT (BEAKER) (test 6 % fmwv=902) EOSINOPHILS RELATIVE PERCENT (BEAKER) (test 1 % cdsc=818) BASOPHILS RELATIVE PERCENT (BEAKER) (test 0 % fpsa=147) NEUTROPHILS ABSOLUTE COUNT (BEAKER) (test 8.94 K/ L 1.78-5.38 kfbe=024) LYMPHOCYTES ABSOLUTE COUNT (BEAKER) (test 1.14 K/ L 1.32-3.57 srsu=756) MONOCYTES ABSOLUTE COUNT (BEAKER) (test 0.68 K/ L 0.30-0.82 bkdz=572) EOSINOPHILS ABSOLUTE COUNT (BEAKER) (test 0.12 K/ L 0.04-0.54 otgj=576) BASOPHILS ABSOLUTE COUNT (BEAKER) (test 0.03 K/ L 0.01-0.08 jjyd=711) IMMATURE GRANULOCYTES-RELATIVE PERCENT (BEAKER) 1 % 0-1 (test zegh=5770) RAD, CHEST, 1 VIEW, NON [id number] 04:26:00Reason for exam:->post opShould this be performed [...] [place] Verified Date/Time: 04/07/2019 04:26:24 Reading Location: [address] Reading Room POCT-GLUCOSE [id number] 23:13:00 Test Item Value Reference Range Comments POC-GLUCOSE METER (BEAKER) 219 mg/dL 70-110 TESTED AT [address] (test pvob=4529) [facility] [address] [id number] 16:51:00 Test Item Value Reference Range Comments MAGNESIUM (BEAKER) (test 1.9 mg/dL 1.6-2.6 Specimen slightly hemolyzed wrwv=072) Check Serum Magnesium level 2 hours after IV magnesium replacement.PRN - repeat potassium levels every 1 hour until glucose level is less than 450 mg/ [id number] 16:51:00 Test Item Value Reference Range Comments POTASSIUM (BEAKER) (test 3.6 meq/L 3.5-5.1 Specimen slightly hemolyzed hkdb=523) Check Serum Magnesium level 2 hours after IV magnesium replacement.PRN - repeat potassium levels every 1 hour until glucose level is less than 450 mg/dLLACTIC ACID, [id number] 15:41:00 Test Item Value Reference Range Comments LACTATE BLOOD ARTERIAL (2) 1.7 mmol/L 0.5-2.2 Specimen slightly hemolyzed (BEAKER) (test hurc=9311) POCT-GLUCOSE [id number] 15:30:00 Test Item Value Reference Range Comments POC-GLUCOSE METER (BEAKER) 200 mg/dL 70-110 TESTED AT [address] (test mzwy=0907) [facility] [address] POCT-GLUCOSE [id number] 07:58:00 Test Item Value Reference Range Comments POC-GLUCOSE METER (BEAKER) 179 mg/dL 70-110 TESTED AT [address] (test zeav=2651) [place] [id number] POCT-GLUCOSE [id number] 07:32:00 Test Item Value Reference Range Comments POC-GLUCOSE METER (BEAKER) 196 mg/dL 70-110 TESTED AT [address] (test hbai=6539) [place] [id number] RAD, CHEST, 1 VIEW, NON [id number] 04:52:00Reason for exam:->post opShould this be performed [...] Signed: Ozzie Avilaeport Verified Date/Time: 04/06/2019 04:52:11 [id number] 04:06:00 Test Item Value Reference Range Comments PHOSPHORUS (BEAKER) (test fhdf=691) 3.4 mg/dL 2.3-4.7 [id number] 04:06:00 Test Item Value Reference Range Comments MAGNESIUM (BEAKER) (test kwpt=650) 1.6 mg/dL 1.6-2.6 BASIC METABOLIC [id number] 04:06:00 Test Item Value Reference Range Comments SODIUM (BEAKER) (test 144 meq/L 136-145 oits=482) POTASSIUM (BEAKER) (test 3.4 meq/L 3.5-5.1 utge=469) CHLORIDE (BEAKER) (test 108 meq/L 98-107 mjws=768) CO2 (BEAKER) (test 26 meq/L 22-29 pzjr=959) BLOOD UREA NITROGEN 10 mg/dL 7-21 (BEAKER) (test vuqq=524) CREATININE (BEAKER) (test 0.63 mg/dL 0.57-1.25 zmws=850) GLUCOSE RANDOM (BEAKER) 189 mg/dL 70-105 (test eajp=427) CALCIUM (BEAKER) (test 8.9 mg/dL 8.4-10.2 kjtu=265) EGFR (BEAKER) (test 128 mL/min/1.73 sq m ESTIMATED GFR IS NOT bomc=3699) ACCURATE CREATININE CLEARANCE IN PREDICTING GLOMERULAR FILTRATION RATE. ESTIMATED GFR IS NOT APPLICABLE FOR DIALYSIS PATIENTS. BLOOD GAS, [id number] 03:49:00 Test Item Value Reference Range Comments PH ARTERIAL (BEAKER) (test ewfy=662) 7.46 7.35-7.45 PCO2 ARTERIAL (BEAKER) (test vqzp=339) 40 mmHg 35-45 PO2 ARTERIAL (BEAKER) (test euna=149) 64 mmHg 80-90 O2 SATURATION ARTERIAL (BEAKER) (test iuxz=684) 93.2 % 96.0-97.0 HCO3 ARTERIAL (BEAKER) (test vzkz=832) 27 mmol/L 21-29 BASE EXCESS ARTERIAL (BEAKER) (test ydto=569) 3.2 mmol/L -2.0-3.0 PATIENT TEMPERATURE (BEAKER) (test ywav=6650) 37.3 C FIO2 (BEAKER) (test ebsd=7372) 28.0 % CBC W/PLT COUNT & AUTO [id number] 03:29:00 Test Item Value Reference Range Comments WHITE BLOOD CELL COUNT (BEAKER) (test lpxw=152) 11.5 K/ L 3.5-10.5 RED BLOOD CELL COUNT (BEAKER) (test hbiy=354) 3.68 M/ L 4.63-6.08 HEMOGLOBIN (BEAKER) (test empb=018) 11.1 GM/DL 13.7-17.5 HEMATOCRIT (BEAKER) (test soqw=643) 32.7 % 40.1-51.0 MEAN CORPUSCULAR VOLUME (BEAKER) (test jlfk=192) 88.9 fL 79.0-92.2 MEAN CORPUSCULAR HEMOGLOBIN (BEAKER) (test 30.2 pg 25.7-32.2 ecpb=512) MEAN CORPUSCULAR HEMOGLOBIN CONC (BEAKER) (test 33.9 GM/DL 32.3-36.5 eavb=878) RED CELL DISTRIBUTION WIDTH (BEAKER) (test 13.9 % 11.6-14.4 tfpg=832) PLATELET COUNT (BEAKER) (test nvez=766) 146 K/CU MM 150-450 MEAN PLATELET VOLUME (BEAKER) (test cdmf=704) 9.6 fL 9.4-12.4 NUCLEATED RED BLOOD CELLS (BEAKER) (test 0 /100 WBC 0-0 itbp=602) NEUTROPHILS RELATIVE PERCENT (BEAKER) (test 81 % qbjh=739) LYMPHOCYTES RELATIVE PERCENT (BEAKER) (test 11 % ntst=061) MONOCYTES RELATIVE PERCENT (BEAKER) (test 7 % lljz=671) EOSINOPHILS RELATIVE PERCENT (BEAKER) (test 0 % nbdm=519) BASOPHILS RELATIVE PERCENT (BEAKER) (test 0 % oxkw=123) NEUTROPHILS ABSOLUTE COUNT (BEAKER) (test 9.31 K/ L 1.78-5.38 gxst=724) LYMPHOCYTES ABSOLUTE COUNT (BEAKER) (test 1.30 K/ L 1.32-3.57 wpjl=321) MONOCYTES ABSOLUTE COUNT (BEAKER) (test 0.80 K/ L 0.30-0.82 rrls=625) EOSINOPHILS ABSOLUTE COUNT (BEAKER) (test 0.01 K/ L 0.04-0.54 baej=621) BASOPHILS ABSOLUTE COUNT (BEAKER) (test 0.03 K/ L 0.01-0.08 djdz=214) IMMATURE GRANULOCYTES-RELATIVE PERCENT (BEAKER) 0 % 0-1 (test ljoz=7013) POCT-GLUCOSE [id number] 17:09:00 Test Item Value Reference Range Comments POC-GLUCOSE METER (BEAKER) 189 mg/dL 70-110 TESTED AT [address] (test oeil=4841) [place] [address] PLATELET AGGREGATION: FUNCTION [id number] 14:45:00 Test Item Value Reference Range Comments WEAK ADP RESULT(BEAKER) (test 60 % 60-91 vsfk=9185) PLATELET FUNCTION SCREEN 60-100% indicates normal INTERP (BEAKER) (test platelet function bsya=4919) [id number] (BEAKER) Attila Vasquez M.D. (electonic (test itak=2026) signature) PLATELET COUNT AGG (BEAKER) 259 K/CU MM 150-450 (test ovyr=1621) Platelet Function Screen results may be falsely low with platelet counts<100, 000/cu mm.POCT-GLUCOSE [id number] 12:26:00 Test Item Value Reference Range Comments POC-GLUCOSE METER (BEAKER) 241 mg/dL 70-110 TESTED AT [address] (test qbpz=2448) [place] [id number] POCT-GLUCOSE [id number] 12:26:00 Test Item Value Reference Range Comments POC-GLUCOSE METER (BEAKER) 122 mg/dL 70-110 TESTED AT [address] (test svzp=8494) [facility] [id number] POCT-GLUCOSE [id number] 12:26:00 Test Item Value Reference Range Comments POC-GLUCOSE METER (BEAKER) 125 mg/dL 70-110 TESTED AT [address] (test wxxw=7081) [facility] [address] POCT-GLUCOSE [id number] 12:25:00 Test Item Value Reference Range Comments POC-GLUCOSE METER (BEAKER) 128 mg/dL 70-110 TESTED AT [address] (test lrbm=6501) [place] [id number] POCT-GLUCOSE [id number] 12:25:00 Test Item Value Reference Range Comments POC-GLUCOSE METER (BEAKER) 143 mg/dL 70-110 TESTED AT [address] (test hold=8525) [place] [id number] BLOOD GAS, [id number] 08:23:00 Test Item Value Reference Range Comments PH ARTERIAL (BEAKER) (test vkay=278) 7.45 7.35-7.45 PCO2 ARTERIAL (BEAKER) (test zluf=413) 40 mmHg 35-45 PO2 ARTERIAL (BEAKER) (test etax=764) 82 mmHg 80-90 O2 SATURATION ARTERIAL (BEAKER) (test cwvv=982) 96.1 % 96.0-97.0 HCO3 ARTERIAL (BEAKER) (test lgxq=289) 27 mmol/L 21-29 BASE EXCESS ARTERIAL (BEAKER) (test nvpf=542) 2.8 mmol/L -2.0-3.0 PATIENT TEMPERATURE (BEAKER) (test xcpx=7258) 37.8 C FIO2 (BEAKER) (test arru=4425) 40.0 % POCT-GLUCOSE [id number] 06:30:00 Test Item Value Reference Range Comments POC-GLUCOSE METER (BEAKER) 159 mg/dL 70-110 TESTED AT [address] (test vphf=0452) [facility] [address] POCT-GLUCOSE [id number] 06:22:00 Test Item Value Reference Range Comments POC-GLUCOSE METER (BEAKER) 173 mg/dL 70-110 TESTED AT [address] (test ydtw=9059) [facility] [address] POCT-GLUCOSE [id number] 06:22:00 Test Item Value Reference Range Comments POC-GLUCOSE METER (BEAKER) 190 mg/dL 70-110 TESTED AT [facility] [address] [facility] (test dfgc=7799) [facility] [address] POCT-GLUCOSE [id number] 06:22:00 Test Item Value Reference Range Comments POC-GLUCOSE METER (BEAKER) 189 mg/dL 70-110 TESTED AT [facility] [address] [facility] (test wful=0299) [facility] [address] RAD, CHEST, 1 VIEW, NON [id number] 04:17:00while patient is intubated or has chest [...] Signed: Ozzie Avilaumair Verified Date/Time: 04/05/2019 04:17:27 [id number] 04:04:00 Test Item Value Reference Range Comments PHOSPHORUS (BEAKER) (test mxne=346) 2.1 mg/dL 2.3-4.7 [id number] 04:04:00 Test Item Value Reference Range Comments MAGNESIUM (BEAKER) (test psqy=219) 1.8 mg/dL 1.6-2.6 BASIC METABOLIC [id number] 04:04:00 Test Item Value Reference Range Comments SODIUM (BEAKER) (test 145 meq/L 136-145 znmf=748) POTASSIUM (BEAKER) (test 4.0 meq/L 3.5-5.1 iiam=938) CHLORIDE (BEAKER) (test 113 meq/L 98-107 kavm=491) CO2 (BEAKER) (test 25 meq/L 22-29 wvrh=216) BLOOD UREA NITROGEN 14 mg/dL 7-21 (BEAKER) (test jhzp=405) CREATININE (BEAKER) (test 0.73 mg/dL 0.57-1.25 fzha=792) GLUCOSE RANDOM (BEAKER) 171 mg/dL 70-105 (test bqas=770) CALCIUM (BEAKER) (test 9.5 mg/dL 8.4-10.2 jajz=560) EGFR (BEAKER) (test 108 mL/min/1.73 sq m ESTIMATED GFR IS NOT jtfq=9190) ACCURATE CREATININE CLEARANCE IN PREDICTING GLOMERULAR FILTRATION RATE. ESTIMATED GFR IS NOT APPLICABLE FOR DIALYSIS PATIENTS. LACTIC ACID, [id number] 04:03:00 Test Item Value Reference Range Comments LACTATE BLOOD ARTERIAL (2) (BEAKER) (test 1.0 mmol/L 0.5-2.2 szkm=9624) CALCIUM, [id number] 03:35:00 Test Item Value Reference Range Comments CALCIUM IONIZED (BEAKER) (test lgaw=030) 1.25 mmol/L 1.12-1.27 PH, BLOOD (BEAKER) (test csrk=9218) 7.49 BLOOD GAS, [id number] 03:33:00 Test Item Value Reference Range Comments PH ARTERIAL (BEAKER) (test xcfg=176) 7.47 7.35-7.45 PCO2 ARTERIAL (BEAKER) (test cepm=254) 35 mmHg 35-45 PO2 ARTERIAL (BEAKER) (test hwfx=113) 91 mmHg 80-90 O2 SATURATION ARTERIAL (BEAKER) (test dctw=986) 97.1 % 96.0-97.0 HCO3 ARTERIAL (BEAKER) (test jyvu=947) 25 mmol/L 21-29 BASE EXCESS ARTERIAL (BEAKER) (test iwvg=890) 1.8 mmol/L -2.0-3.0 PATIENT TEMPERATURE (BEAKER) (test pvgg=5884) 38.1 C FIO2 (BEAKER) (test fkzm=4749) 40.0 % CBC W/PLT COUNT & AUTO [id number] 03:31:00 Test Item Value Reference Range Comments WHITE BLOOD CELL COUNT (BEAKER) (test jazw=796) 10.6 K/ L 3.5-10.5 RED BLOOD CELL COUNT (BEAKER) (test jcpq=743) 4.00 M/ L 4.63-6.08 HEMOGLOBIN (BEAKER) (test mzqj=112) 12.1 GM/DL 13.7-17.5 HEMATOCRIT (BEAKER) (test prly=055) 35.2 % 40.1-51.0 MEAN CORPUSCULAR VOLUME (BEAKER) (test swbw=696) 88.0 fL 79.0-92.2 MEAN CORPUSCULAR HEMOGLOBIN (BEAKER) (test 30.3 pg 25.7-32.2 clfc=025) MEAN CORPUSCULAR HEMOGLOBIN CONC (BEAKER) (test 34.4 GM/DL 32.3-36.5 qbdp=286) RED CELL DISTRIBUTION WIDTH (BEAKER) (test 13.8 % 11.6-14.4 hobt=795) PLATELET COUNT (BEAKER) (test kdtu=485) 184 K/CU MM 150-450 MEAN PLATELET VOLUME (BEAKER) (test tctv=220) 9.4 fL 9.4-12.4 NUCLEATED RED BLOOD CELLS (BEAKER) (test 0 /100 WBC 0-0 ggps=505) NEUTROPHILS RELATIVE PERCENT (BEAKER) (test 83 % xawq=785) LYMPHOCYTES RELATIVE PERCENT (BEAKER) (test 9 % tfqk=459) MONOCYTES RELATIVE PERCENT (BEAKER) (test 7 % thin=935) EOSINOPHILS RELATIVE PERCENT (BEAKER) (test 0 % kfso=804) BASOPHILS RELATIVE PERCENT (BEAKER) (test 0 % yfbk=164) NEUTROPHILS ABSOLUTE COUNT (BEAKER) (test 8.85 K/ L 1.78-5.38 ldzt=002) LYMPHOCYTES ABSOLUTE COUNT (BEAKER) (test 0.92 K/ L 1.32-3.57 xejn=728) MONOCYTES ABSOLUTE COUNT (BEAKER) (test 0.78 K/ L 0.30-0.82 lwdk=415) EOSINOPHILS ABSOLUTE COUNT (BEAKER) (test 0.01 K/ L 0.04-0.54 epgk=938) BASOPHILS ABSOLUTE COUNT (BEAKER) (test 0.03 K/ L 0.01-0.08 ilpb=045) IMMATURE GRANULOCYTES-RELATIVE PERCENT (BEAKER) 1 % 0-1 (test ywfx=7261) [id number] 01:22:00 Test Item Value Reference Range Comments MAGNESIUM (BEAKER) (test bfrn=291) 2.2 mg/dL 1.6-2.6 BASIC METABOLIC [id number] 01:22:00 Test Item Value Reference Range Comments SODIUM (BEAKER) (test 146 meq/L 136-145 glgh=309) POTASSIUM (BEAKER) (test 4.3 meq/L 3.5-5.1 mzik=649) CHLORIDE (BEAKER) (test 113 meq/L 98-107 imww=083) CO2 (BEAKER) (test 24 meq/L 22-29 mjzs=253) BLOOD UREA NITROGEN 15 mg/dL 7-21 (BEAKER) (test ivfl=619) CREATININE (BEAKER) (test 0.73 mg/dL 0.57-1.25 qnpe=355) GLUCOSE RANDOM (BEAKER) 188 mg/dL 70-105 (test kniy=929) CALCIUM (BEAKER) (test 9.9 mg/dL 8.4-10.2 lixg=135) EGFR (BEAKER) (test 108 mL/min/1.73 sq m ESTIMATED GFR IS NOT hzxx=9146) ACCURATE CREATININE CLEARANCE IN PREDICTING GLOMERULAR FILTRATION RATE. ESTIMATED GFR IS NOT APPLICABLE FOR DIALYSIS PATIENTS. LACTIC ACID, [id number] 01:20:00 Test Item Value Reference Range Comments LACTATE BLOOD ARTERIAL (2) 1.1 mmol/L 0.5-2.2 Specimen slightly hemolyzed (BEAKER) (test hpcm=8039) CBC W/PLT COUNT & AUTO [id number] 01:06:00 Test Item Value Reference Range Comments WHITE BLOOD CELL COUNT (BEAKER) (test dsin=739) 11.8 K/ L 3.5-10.5 RED BLOOD CELL COUNT (BEAKER) (test zhel=818) 3.98 M/ L 4.63-6.08 HEMOGLOBIN (BEAKER) (test ksjy=333) 12.1 GM/DL 13.7-17.5 HEMATOCRIT (BEAKER) (test nrdg=516) 34.8 % 40.1-51.0 MEAN CORPUSCULAR VOLUME (BEAKER) (test jeis=322) 87.4 fL 79.0-92.2 MEAN CORPUSCULAR HEMOGLOBIN (BEAKER) (test 30.4 pg 25.7-32.2 slcz=679) MEAN CORPUSCULAR HEMOGLOBIN CONC (BEAKER) (test 34.8 GM/DL 32.3-36.5 utba=425) RED CELL DISTRIBUTION WIDTH (BEAKER) (test 13.6 % 11.6-14.4 vtni=985) PLATELET COUNT (BEAKER) (test ubco=144) 172 K/CU MM 150-450 MEAN PLATELET VOLUME (BEAKER) (test mfhy=036) 9.4 fL 9.4-12.4 NUCLEATED RED BLOOD CELLS (BEAKER) (test 0 /100 WBC 0-0 ivzw=689) NEUTROPHILS RELATIVE PERCENT (BEAKER) (test 85 % ynrr=176) LYMPHOCYTES RELATIVE PERCENT (BEAKER) (test 7 % mnbq=332) MONOCYTES RELATIVE PERCENT (BEAKER) (test 8 % aicl=589) EOSINOPHILS RELATIVE PERCENT (BEAKER) (test 0 % pjkm=902) BASOPHILS RELATIVE PERCENT (BEAKER) (test 0 % zonp=465) NEUTROPHILS ABSOLUTE COUNT (BEAKER) (test 9.96 K/ L 1.78-5.38 nhfi=250) LYMPHOCYTES ABSOLUTE COUNT (BEAKER) (test 0.81 K/ L 1.32-3.57 xpvv=985) MONOCYTES ABSOLUTE COUNT (BEAKER) (test 0.89 K/ L 0.30-0.82 hgwp=217) EOSINOPHILS ABSOLUTE COUNT (BEAKER) (test 0.01 K/ L 0.04-0.54 hfmq=768) BASOPHILS ABSOLUTE COUNT (BEAKER) (test 0.03 K/ L 0.01-0.08 vqnd=385) IMMATURE GRANULOCYTES-RELATIVE PERCENT (BEAKER) 1 % 0-1 (test esoq=5681) BLOOD GAS, [id number] 00:53:00 Test Item Value Reference Range Comments PH ARTERIAL (BEAKER) (test myfa=865) 7.45 7.35-7.45 PCO2 ARTERIAL (BEAKER) (test ykud=096) 38 mmHg 35-45 PO2 ARTERIAL (BEAKER) (test fmyq=324) 108 mmHg 80-90 O2 SATURATION ARTERIAL (BEAKER) (test pjlt=388) 98.0 % 96.0-97.0 HCO3 ARTERIAL (BEAKER) (test fltw=578) 26 mmol/L 21-29 BASE EXCESS ARTERIAL (BEAKER) (test ldal=089) 2.2 mmol/L -2.0-3.0 PATIENT TEMPERATURE (BEAKER) (test bnxy=1471) 38.1 C FIO2 (BEAKER) (test choq=1770) 60.0 % CALCIUM, [id number] 00:53:00 Test Item Value Reference Range Comments CALCIUM IONIZED (BEAKER) (test qico=285) 1.29 mmol/L 1.12-1.27 PH, BLOOD (BEAKER) (test mjzq=2754) 7.47 POCT-GLUCOSE [id number] 23:39:00 Test Item Value Reference Range Comments POC-GLUCOSE METER (BEAKER) 192 mg/dL 70-110 TESTED AT [address] (test dljy=3867) [place] [address] POCT-GLUCOSE [id number] 23:39:00 Test Item Value Reference Range Comments POC-GLUCOSE METER (BEAKER) 197 mg/dL 70-110 TESTED AT [address] (test oqsd=8065) [place] [id number] POCT-GLUCOSE [id number] 23:39:00 Test Item Value Reference Range Comments POC-GLUCOSE METER (BEAKER) 185 mg/dL 70-110 TESTED AT [address] (test gqbj=5476) [place] [id number] BLOOD GAS, [id number] 20:52:00 Test Item Value Reference Range Comments PH ARTERIAL (BEAKER) (test vsvp=874) 7.46 7.35-7.45 PCO2 ARTERIAL (BEAKER) (test oawg=857) 38 mmHg 35-45 PO2 ARTERIAL (BEAKER) (test beog=706) 233 mmHg 80-90 O2 SATURATION ARTERIAL (BEAKER) (test cvdq=721) 99.6 % 96.0-97.0 HCO3 ARTERIAL (BEAKER) (test gkyh=399) 26 mmol/L 21-29 BASE EXCESS ARTERIAL (BEAKER) (test itci=417) 2.1 mmol/L -2.0-3.0 PATIENT TEMPERATURE (BEAKER) (test qaom=4227) 37.1 C FIO2 (BEAKER) (test dhob=8891) 80.0 % THROMBOELASTOGRAPH (TEG)2019-04-04 20:05:00 Test Item Value Reference Range Comments TEG ACTIVATED CLOTTING TIME (BEAKER) (test 6.6 minutes 4.0-7.0 dfzj=5623) TEG FIBRINOGEN ACTIVITY (BEAKER) (test 69.0 degrees 61.0-73.0 ezju=3982) TEG PLT. AGGREGATION (BEAKER) (test mbzt=2809) 65.0 MM 55.0-65.0 TEG FIBRINOLYSIS (BEAKER) (test chcw=6108) 0.0 % 0.0-5.0 TGH ACTIVATED CLOTTING TIME (BEAKER) (test 7.0 minutes 4.0-7.0 ucca=6847) TGH FIBRINOGEN ACTIVITY (BEAKER) (test 65.7 degrees 61.0-73.0 vces=0971) TGH PLT. AGGREGATION (BEAKER) (test uzbw=6824) 63.2 MM 55.0-65.0 TGH FIBRINOLYSIS (BEAKER) (test bpkp=0278) 0.0 % 0.0-5.0 RAD, CHEST, 1 VIEW, NON [id number] 19:07:00Reason for exam:->Status post CV Surgery post [...] MDReport Verified Date/Time: 04/04/2019 19:07:57 Reading Location: [facility] Radiology Reading Room BASI METABOLIC [id number] 18: 47:00 Test Item Value Reference Range Comments SODIUM (BEAKER) (test 149 meq/L 136-145 jipo=756) POTASSIUM (BEAKER) (test 3.8 meq/L 3.5-5.1 Specimen slightly altk=896) hemolyzed CHLORIDE (BEAKER) (test 112 meq/L 98-107 efaq=209) CO2 (BEAKER) (test 25 meq/L 22-29 sqnw=267) BLOOD UREA NITROGEN 16 mg/dL 7-21 (BEAKER) (test ohhi=037) CREATININE (BEAKER) (test 0.67 mg/dL 0.57-1.25 Specimen slightly rgds=670) hemolyzed GLUCOSE RANDOM (BEAKER) 236 mg/dL 70-105 (test fcii=626) CALCIUM (BEAKER) (test 11.1 mg/dL 8.4-10.2 cslr=335) EGFR (BEAKER) (test 119 mL/min/1.73 sq m ESTIMATED GFR IS NOT bvek=3099) ACCURATE CREATININE CLEARANCE IN PREDICTING GLOMERULAR FILTRATION RATE. ESTIMATED GFR IS NOT APPLICABLE FOR DIALYSIS PATIENTS. [id number] 18:46:00 Test Item Value Reference Range Comments MAGNESIUM (BEAKER) (test 1.9 mg/dL 1.6-2.6 Specimen slightly hemolyzed ilty=276) [id number] 18:46:00 Test Item Value Reference Range Comments PHOSPHORUS (BEAKER) (test 4.2 mg/dL 2.3-4.7 Specimen slightly hemolyzed pmrs=515) LACTIC ACID, [id number] 18:43:00 Test Item Value Reference Range Comments LACTATE BLOOD ARTERIAL (2) 2.0 mmol/L 0.5-2.2 Specimen slightly hemolyzed (BEAKER) (test fsmi=6547) [id number] 18:36:00 Test Item Value Reference Range Comments FIBRINOGEN LEVEL (BEAKER) (test dcmc=856) 329 mg/dl 225-434 [id number] 18:36:00 Test Item Value Reference Range Comments PARTIAL THROMBOPLASTIN TIME (BEAKER) (test 35.0 seconds 22.5-36.0 usfp=344) PROTHROMBIN [id number] 18:35:00 Test Item Value Reference Range Comments PROTIME (BEAKER) (test qbmd=911) 16.7 seconds 11.9-14.2 INR (BEAKER) (test sizw=960) 1.4 <=5.9 Effective 03/27/2019: PT Reference Range ChangeNew: 11.9-14.2 Previous: 11.7- 14.7RECOMMENDED COUMADIN/WARFARIN INR THERAPY RANGESSTANDARD DOSE: 2.0-3.0 Includes: PROPHYLAXIS for venous thrombosis, systemic embolization; TREATMENT for venous thrombosis and/or pulmonary embolus.HIGH RISK: Target INR is2.5-3.5 for patients wiht mechanical heart valves.CBC W/PLT COUNT & AUTO [id number] 18:27:00 Test Item Value Reference Range Comments WHITE BLOOD CELL COUNT (BEAKER) (test zegm=929) 10.4 K/ L 3.5-10.5 RED BLOOD CELL COUNT (BEAKER) (test nnso=055) 4.17 M/ L 4.63-6.08 HEMOGLOBIN (BEAKER) (test rfix=958) 12.7 GM/DL 13.7-17.5 HEMATOCRIT (BEAKER) (test lezm=924) 37.4 % 40.1-51.0 MEAN CORPUSCULAR VOLUME (BEAKER) (test pcvv=421) 89.7 fL 79.0-92.2 MEAN CORPUSCULAR HEMOGLOBIN (BEAKER) (test 30.5 pg 25.7-32.2 yjus=487) MEAN CORPUSCULAR HEMOGLOBIN CONC (BEAKER) (test 34.0 GM/DL 32.3-36.5 qhhv=575) RED CELL DISTRIBUTION WIDTH (BEAKER) (test 13.2 % 11.6-14.4 afyt=868) PLATELET COUNT (BEAKER) (test dehg=508) 139 K/CU MM 150-450 MEAN PLATELET VOLUME (BEAKER) (test jahn=408) 9.0 fL 9.4-12.4 NUCLEATED RED BLOOD CELLS (BEAKER) (test 0 /100 WBC 0-0 dmid=271) NEUTROPHILS RELATIVE PERCENT (BEAKER) (test 81 % mkfx=971) LYMPHOCYTES RELATIVE PERCENT (BEAKER) (test 13 % pbfw=528) MONOCYTES RELATIVE PERCENT (BEAKER) (test 5 % wjdz=771) EOSINOPHILS RELATIVE PERCENT (BEAKER) (test 0 % wimb=077) BASOPHILS RELATIVE PERCENT (BEAKER) (test 0 % vbbq=624) NEUTROPHILS ABSOLUTE COUNT (BEAKER) (test 8.37 K/ L 1.78-5.38 vqeh=084) LYMPHOCYTES ABSOLUTE COUNT (BEAKER) (test 1.39 K/ L 1.32-3.57 blip=730) MONOCYTES ABSOLUTE COUNT (BEAKER) (test 0.49 K/ L 0.30-0.82 tmpl=113) EOSINOPHILS ABSOLUTE COUNT (BEAKER) (test 0.04 K/ L 0.04-0.54 iocw=095) BASOPHILS ABSOLUTE COUNT (BEAKER) (test 0.02 K/ L 0.01-0.08 ovlg=638) IMMATURE GRANULOCYTES-RELATIVE PERCENT (BEAKER) 1 % 0-1 (test hzyd=4285) BLOOD GAS, [id number] 18:24:00 Test Item Value Reference Range Comments PH ARTERIAL (BEAKER) (test ggib=816) 7.37 7.35-7.45 PCO2 ARTERIAL (BEAKER) (test kpas=178) 44 mmHg 35-45 PO2 ARTERIAL (BEAKER) (test jiya=857) 81 mmHg 80-90 O2 SATURATION ARTERIAL (BEAKER) (test aafl=363) 96.1 % 96.0-97.0 HCO3 ARTERIAL (BEAKER) (test dqby=344) 25 mmol/L 21-29 BASE EXCESS ARTERIAL (BEAKER) (test hrwu=334) -0.8 mmol/L -2.0-3.0 PATIENT TEMPERATURE (BEAKER) (test dqia=2800) 36.2 C FIO2 (BEAKER) (test gkcx=3042) 60.0 % SODIUM NA-STAT [id number] 18:24:00 Test Item Value Reference Range Comments SODIUM (BEAKER) (test cwmq=236) 147 meq/L 135-148 POTASSIUM-STAT [id number] 18:24:00 Test Item Value Reference Range Comments POTASSIUM (BEAKER) (test rqev=655) 3.6 meq/L 3.6-5.5 GLUCOSE-STAT [id number] 18:24:00 Test Item Value Reference Range Comments GLUCOSE RANDOM (BEAKER) (test xtzz=388) 230 mg/dL 70-110 HGB/HCT (H&H) - STAT [id number] 18:24:00 Test Item Value Reference Range Comments HEMOGLOBIN (BEAKER) (test ayuv=914) 13.0 g/dL 13.0-16.8 HEMATOCRIT (BEAKER) (test lfcp=283) 38.0 % 40.0-50.0 OXYGEN SATURATION, [id number] 18:24:00 Test Item Value Reference Range Comments O2 SATURATION (MEASURED) (BEAKER) (test desb=4701) 74.9 % CALCIUM, [id number] 18:23:00 Test Item Value Reference Range Comments CALCIUM IONIZED (BEAKER) (test pwzv=530) 1.44 mmol/L 1.12-1.27 PH, BLOOD (BEAKER) (test bzby=9355) 7.36 THROMBOELASTOGRAPH (TEG)2019-04-04 17:53:00 Test Item Value Reference Range Comments TEG ACTIVATED CLOTTING TIME (BEAKER) (test 9.2 minutes 4.0-7.0 drlw=2284) TEG FIBRINOGEN ACTIVITY (BEAKER) (test 57.5 degrees 61.0-73.0 tfvb=3428) TEG PLT. AGGREGATION (BEAKER) (test kxhm=6600) 37.3 MM 55.0-65.0 TGH ACTIVATED CLOTTING TIME (BEAKER) (test 9.3 minutes 4.0-7.0 otvn=7146) TGH FIBRINOGEN ACTIVITY (BEAKER) (test 52.7 degrees 61.0-73.0 kvaf=6733) TGH PLT. AGGREGATION (BEAKER) (test tdlo=2688) 35.8 MM 55.0-65.0 CALCIUM, [id number] 17:28:00 Test Item Value Reference Range Comments CALCIUM IONIZED (BEAKER) (test tvpv=768) 1.23 mmol/L 1.12-1.27 PH, BLOOD (BEAKER) (test iour=8689) 7.30 BLOOD GAS, [id number] 17:28:00 Test Item Value Reference Range Comments PH ARTERIAL (BEAKER) (test suzu=290) 7.31 7.35-7.45 PCO2 ARTERIAL (BEAKER) (test ldgh=048) 47 mmHg 35-45 PO2 ARTERIAL (BEAKER) (test fvlm=747) 72 mmHg 80-90 O2 SATURATION ARTERIAL (BEAKER) (test zzyh=836) 93.8 % 96.0-97.0 HCO3 ARTERIAL (BEAKER) (test qoqy=986) 23 mmol/L 21-29 BASE EXCESS ARTERIAL (BEAKER) (test mfsd=431) -3.5 mmol/L -2.0-3.0 PATIENT TEMPERATURE (BEAKER) (test vgjl=9866) 36.0 C FIO2 (BEAKER) (test dnjm=7720) 100.0 % GLUCOSE-STAT [id number] 17:28:00 Test Item Value Reference Range Comments GLUCOSE RANDOM (BEAKER) (test gash=315) 243 mg/dL 70-110 HGB/HCT (H&H) - STAT [id number] 17:28:00 Test Item Value Reference Range Comments HEMOGLOBIN (BEAKER) (test wdfk=078) 12.6 g/dL 13.0-16.8 HEMATOCRIT (BEAKER) (test nryo=852) 37.0 % 40.0-50.0 SODIUM NA-STAT [id number] 17:27:00 Test Item Value Reference Range Comments SODIUM (BEAKER) (test yzmg=452) 143 meq/L 135-148 POTASSIUM-STAT [id number] 17:27:00 Test Item Value Reference Range Comments POTASSIUM (BEAKER) (test ytxm=016) 3.5 meq/L 3.6-5.5 [id number] 17:12:00 Test Item Value Reference Range Comments FIBRINOGEN LEVEL (BEAKER) (test beoj=181) 117 mg/dl 225-434 [id number] 17:05:00 Test Item Value Reference Range Comments ACTIVATED CLOTTING TIME 444 [address] (BEAKER[address] (test hyzr=114) [place] [address] [id number] 17:05:00 Test Item Value Reference Range Comments ACTIVATED CLOTTING TIME 406 sec TESTED AT [place] [address] [address] (BEAKER) (test hnrf=692) [place] [address] [id number] 17:05:00 Test Item Value Reference Range Comments ACTIVATED CLOTTING TIME 411 sec TESTED AT [place] [address] [address] (BEAKER) (test dbxf=524) [place] [address] [id number] 17:05:00 Test Item Value Reference Range Comments ACTIVATED CLOTTING TIME 351 sec TESTED AT [place] [address] [address] (BEAKER) (test qpnp=335) [place] [address] [id number] 17:05:00 Test Item Value Reference Range Comments ACTIVATED CLOTTING TIME 626 sec TESTED AT [place] [address] [address] (BEAKER) (test iick=950) [place] [address] [id number] 17:02:00 Test Item Value Reference Range Comments PARTIAL THROMBOPLASTIN TIME (BEAKER) (test 40.8 seconds 22.5-36.0 fbkx=522) PROTHROMBIN [id number] 17:01:00 Test Item Value Reference Range Comments PROTIME (BEAKER) (test nqtd=177) 31.7 seconds 11.9-14.2 INR (BEAKER) (test cgav=456) 3.3 <=5.9 Effective 03/27/2019: PT Reference Range ChangeNew: 11.9-14.2 Previous: 11.7- 14.7RECOMMENDED COUMADIN/WARFARIN INR THERAPY RANGESSTANDARD DOSE: 2.0-3.0 Includes: PROPHYLAXIS for venous thrombosis, systemic embolization; TREATMENT for venous thrombosis and/or pulmonary embolus.HIGH RISK: Target INR is2.5-3.5 for patients wiht mechanical heart valves.PLATELET [id number] 16:49:00 Test Item Value Reference Range Comments PLATELET COUNT (BEAKER) (test bzle=139) 52 K/CU MM 150-450 CALCIUM, [id number] 16:44:00 Test Item Value Reference Range Comments CALCIUM IONIZED (BEAKER) (test awex=982) 1.08 mmol/L 1.12-1.27 PH, BLOOD (BEAKER) (test eiiw=9235) 7.33 BLOOD GAS, [id number] 16:44:00 Test Item Value Reference Range Comments PH ARTERIAL (BEAKER) (test uzon=996) 7.34 7.35-7.45 PCO2 ARTERIAL (BEAKER) (test hzwh=797) 40 mmHg 35-45 PO2 ARTERIAL (BEAKER) (test cpbz=663) 132 mmHg 80-90 O2 SATURATION ARTERIAL (BEAKER) (test nuum=692) 98.6 % 96.0-97.0 HCO3 ARTERIAL (BEAKER) (test cuks=232) 21 mmol/L 21-29 BASE EXCESS ARTERIAL (BEAKER) (test ufox=308) -4.3 mmol/L -2.0-3.0 PATIENT TEMPERATURE (BEAKER) (test hkzn=5138) 36.0 C FIO2 (BEAKER) (test qpky=9094) 100.0 % GLUCOSE-STAT [id number] 16:44:00 Test Item Value Reference Range Comments GLUCOSE RANDOM (BEAKER) (test akjx=373) 277 mg/dL 70-110 HGB/HCT (H&H) - STAT [id number] 16:44:00 Test Item Value Reference Range Comments HEMOGLOBIN (BEAKER) (test hnvu=045) 11.3 g/dL 13.0-16.8 HEMATOCRIT (BEAKER) (test qset=812) 33.0 % 40.0-50.0 SODIUM NA-STAT [id number] 16:43:00 Test Item Value Reference Range Comments SODIUM (BEAKER) (test usoy=922) 141 meq/L 135-148 POTASSIUM-STAT [id number] 16:43:00 Test Item Value Reference Range Comments POTASSIUM (BEAKER) (test wtdg=453) 3.6 meq/L 3.6-5.5 BLOOD GAS, [id number] 16:23:00 Test Item Value Reference Range Comments PH ARTERIAL (BEAKER) (test ckci=046) 7.35 7.35-7.45 PCO2 ARTERIAL (BEAKER) (test lchq=225) 54 mmHg 35-45 PO2 ARTERIAL (BEAKER) (test idwo=249) 206 mmHg 80-90 O2 SATURATION ARTERIAL (BEAKER) (test whgg=605) 99.4 % 96.0-97.0 HCO3 ARTERIAL (BEAKER) (test jtwr=726) 30 mmol/L 21-29 BASE EXCESS ARTERIAL (BEAKER) (test luhn=571) 2.9 mmol/L -2.0-3.0 PATIENT TEMPERATURE (BEAKER) (test guym=4124) 34.0 C FIO2 (BEAKER) (test rhui=9666) 100.0 % SODIUM NA-STAT [id number] 16:23:00 Test Item Value Reference Range Comments SODIUM (BEAKER) (test uwtv=239) 146 meq/L 135-148 GLUCOSE-STAT [id number] 16:23:00 Test Item Value Reference Range Comments GLUCOSE RANDOM (BEAKER) (test yedz=414) 281 mg/dL 70-110 HGB/HCT (H&H) - STAT [id number] 16:23:00 Test Item Value Reference Range Comments HEMOGLOBIN (BEAKER) (test vjth=064) 9.9 g/dL 13.0-16.8 HEMATOCRIT (BEAKER) (test amik=059) 29.0 % 40.0-50.0 POTASSIUM-STAT [id number] 16:22:00 Test Item Value Reference Range Comments POTASSIUM (BEAKER) (test kfcz=594) 4.2 meq/L 3.6-5.5 CALCIUM, [id number] 16:22:00 Test Item Value Reference Range Comments CALCIUM IONIZED (BEAKER) (test zbmb=094) 1.16 mmol/L 1.12-1.27 PH, BLOOD (BEAKER) (test cxaa=5348) 7.31 BLOOD GAS, [id number] 16:13:00 Test Item Value Reference Range Comments PH ARTERIAL (BEAKER) (test fqbi=473) 7.16 7.35-7.45 PCO2 ARTERIAL (BEAKER) (test ccux=784) 41 mmHg 35-45 PO2 ARTERIAL (BEAKER) (test zhbx=373) 114 mmHg 80-90 O2 SATURATION ARTERIAL (BEAKER) (test utxa=673) 97.2 % 96.0-97.0 HCO3 ARTERIAL (BEAKER) (test ptde=435) 15 mmol/L 21-29 BASE EXCESS ARTERIAL (BEAKER) (test qizg=961) -13.3 mmol/L -2.0-3.0 PATIENT TEMPERATURE (BEAKER) (test uiqb=6778) 35.8 C FIO2 (BEAKER) (test feos=1362) 100.0 % CALCIUM, [id number] 16:13:00 Test Item Value Reference Range Comments CALCIUM IONIZED (BEAKER) (test mnxd=428) 1.11 mmol/L 1.12-1.27 PH, BLOOD (BEAKER) (test gscx=6070) 7.14 GLUCOSE-STAT [id number] 16:13:00 Test Item Value Reference Range Comments GLUCOSE RANDOM (BEAKER) (test eipt=437) 268 mg/dL 70-110 HGB/HCT (H&H) - STAT [id number] 16:13:00 Test Item Value Reference Range Comments HEMOGLOBIN (BEAKER) (test rmrz=241) 6.8 g/dL 13.0-16.8 HEMATOCRIT (BEAKER) (test eyur=873) 20.0 % 40.0-50.0 SODIUM NA-STAT [id number] 16:12:00 Test Item Value Reference Range Comments SODIUM (BEAKER) (test gdja=223) 137 meq/L 135-148 POTASSIUM-STAT [id number] 16:12:00 Test Item Value Reference Range Comments POTASSIUM (BEAKER) (test rzey=808) 4.6 meq/L 3.6-5.5 BLOOD GAS, [id number] 15:44:00 Test Item Value Reference Range Comments PH ARTERIAL (BEAKER) (test yepw=322) 7.31 7.35-7.45 PCO2 ARTERIAL (BEAKER) (test dyry=326) 43 mmHg 35-45 PO2 ARTERIAL (BEAKER) (test ljdp=291) 416 mmHg 80-90 O2 SATURATION ARTERIAL (BEAKER) (test odsr=831) 99.8 % 96.0-97.0 HCO3 ARTERIAL (BEAKER) (test ssmi=168) 22 mmol/L 21-29 BASE EXCESS ARTERIAL (BEAKER) (test sdlz=972) -4.7 mmol/L -2.0-3.0 PATIENT TEMPERATURE (BEAKER) (test wbue=7897) 34.6 C FIO2 (BEAKER) (test ukdm=1842) 90.0 % GLUCOSE-STAT [id number] 15:44:00 Test Item Value Reference Range Comments GLUCOSE RANDOM (BEAKER) (test expc=817) 255 mg/dL 70-110 HGB/HCT (H&H) - STAT [id number] 15:44:00 Test Item Value Reference Range Comments HEMOGLOBIN (BEAKER) (test plsw=858) 9.0 g/dL 13.0-16.8 HEMATOCRIT (BEAKER) (test pbvd=822) 26.0 % 40.0-50.0 SODIUM NA-STAT [id number] 15:43:00 Test Item Value Reference Range Comments SODIUM (BEAKER) (test kqxg=216) 135 meq/L 135-148 POTASSIUM-STAT [id number] 15:43:00 Test Item Value Reference Range Comments POTASSIUM (BEAKER) (test mmsn=272) 4.9 meq/L 3.6-5.5 BLOOD GAS, [id number] 14:59:00 Test Item Value Reference Range Comments PH ARTERIAL (BEAKER) (test gknw=375) 7.38 7.35-7.45 PCO2 ARTERIAL (BEAKER) (test ffad=277) 40 mmHg 35-45 PO2 ARTERIAL (BEAKER) (test kvxx=501) 294 mmHg 80-90 O2 SATURATION ARTERIAL (BEAKER) (test wbnw=528) 99.7 % 96.0-97.0 HCO3 ARTERIAL (BEAKER) (test upfv=491) 24 mmol/L 21-29 BASE EXCESS ARTERIAL (BEAKER) (test domj=711) -1.7 mmol/L -2.0-3.0 PATIENT TEMPERATURE (BEAKER) (test xqwq=9050) 35.1 C FIO2 (BEAKER) (test vkmg=7793) 75.0 % SODIUM NA-STAT [id number] 14:59:00 Test Item Value Reference Range Comments SODIUM (BEAKER) (test geqk=105) 133 meq/L 135-148 GLUCOSE-STAT [id number] 14:59:00 Test Item Value Reference Range Comments GLUCOSE RANDOM (BEAKER) (test bvpt=363) 249 mg/dL 70-110 HGB/HCT (H&H) - STAT [id number] 14:59:00 Test Item Value Reference Range Comments HEMOGLOBIN (BEAKER) (test yxbl=069) 7.9 g/dL 13.0-16.8 HEMATOCRIT (BEAKER) (test mdeq=289) 23.0 % 40.0-50.0 POTASSIUM-STAT [id number] 14:58:00 Test Item Value Reference Range Comments POTASSIUM (BEAKER) (test docg=277) 4.6 meq/L 3.6-5.5 POTASSIUM-STAT [id number] 14:28:00 Test Item Value Reference Range Comments POTASSIUM (BEAKER) (test rqjf=386) 3.9 meq/L 3.6-5.5 BLOOD GAS, [id number] 14:28:00 Test Item Value Reference Range Comments PH ARTERIAL (BEAKER) (test nfwz=762) 7.36 7.35-7.45 PCO2 ARTERIAL (BEAKER) (test efjs=978) 33 mmHg 35-45 PO2 ARTERIAL (BEAKER) (test vybl=772) 323 mmHg 80-90 O2 SATURATION ARTERIAL (BEAKER) (test vbcd=772) 99.7 % 96.0-97.0 HCO3 ARTERIAL (BEAKER) (test qniq=553) 20 mmol/L 21-29 BASE EXCESS ARTERIAL (BEAKER) (test lcek=261) -7.0 mmol/L -2.0-3.0 PATIENT TEMPERATURE (BEAKER) (test ajxe=9107) 27.5 C FIO2 (BEAKER) (test vtny=7708) 60.0 % SODIUM NA-STAT [id number] 14:28:00 Test Item Value Reference Range Comments SODIUM (BEAKER) (test dmve=832) 132 meq/L 135-148 GLUCOSE-STAT [id number] 14:28:00 Test Item Value Reference Range Comments GLUCOSE RANDOM (BEAKER) (test jsyf=760) 257 mg/dL 70-110 HGB/HCT (H&H) - STAT [id number] 14:28:00 Test Item Value Reference Range Comments HEMOGLOBIN (BEAKER) (test rujb=245) 8.6 g/dL 13.0-16.8 HEMATOCRIT (BEAKER) (test obyc=623) 25.0 % 40.0-50.0 BLOOD GAS, [id number] 13:17:00 Test Item Value Reference Range Comments PH ARTERIAL (BEAKER) (test gfgy=583) 7.34 7.35-7.45 PCO2 ARTERIAL (BEAKER) (test jpot=153) 41 mmHg 35-45 PO2 ARTERIAL (BEAKER) (test njhl=175) 231 mmHg 80-90 O2 SATURATION ARTERIAL (BEAKER) (test sckh=448) 99.5 % 96.0-97.0 HCO3 ARTERIAL (BEAKER) (test hytp=837) 21 mmol/L 21-29 BASE EXCESS ARTERIAL (BEAKER) (test fqax=573) -4.5 mmol/L -2.0-3.0 PATIENT TEMPERATURE (BEAKER) (test jgwt=6299) 36.0 C FIO2 (BEAKER) (test vock=7079) 100.0 % SODIUM NA-STAT [id number] 13:17:00 Test Item Value Reference Range Comments SODIUM (BEAKER) (test ublq=138) 132 meq/L 135-148 GLUCOSE-STAT [id number] 13:17:00 Test Item Value Reference Range Comments GLUCOSE RANDOM (BEAKER) (test vrwl=781) 139 mg/dL 70-110 CALCIUM, [id number] 13:14:00 Test Item Value Reference Range Comments CALCIUM IONIZED (BEAKER) (test avkv=416) 1.12 mmol/L 1.12-1.27 PH, BLOOD (BEAKER) (test afog=8191) 7.32 POTASSIUM-STAT [id number] 13:13:00 Test Item Value Reference Range Comments POTASSIUM (BEAKER) (test szcb=281) 3.9 meq/L 3.6-5.5 HGB/HCT (H&H) - STAT [id number] 13:13:00 Test Item Value Reference Range Comments HEMOGLOBIN (BEAKER) (test mhsm=795) 14.7 g/dL 13.0-16.8 HEMATOCRIT (BEAKER) (test ipgb=646) 43.0 % 40.0-50.0 BASIC METABOLIC [id number] 06:01:00 Test Item Value Reference Range Comments SODIUM (BEAKER) (test 138 meq/L 136-145 gbko=579) POTASSIUM (BEAKER) (test 4.0 meq/L 3.5-5.1 Specimen slightly yjkx=723) hemolyzed CHLORIDE (BEAKER) (test 104 meq/L 98-107 ztnv=537) CO2 (BEAKER) (test 22 meq/L 22-29 zyra=850) BLOOD UREA NITROGEN 15 mg/dL 7-21 (BEAKER) (test ondv=752) CREATININE (BEAKER) (test 0.70 mg/dL 0.57-1.25 Specimen slightly gjmh=347) hemolyzed GLUCOSE RANDOM (BEAKER) 127 mg/dL 70-105 (test vyjk=058) CALCIUM (BEAKER) (test 9.6 mg/dL 8.4-10.2 jwlj=980) EGFR (BEAKER) (test 113 mL/min/1.73 sq m ESTIMATED GFR IS NOT fepw=4655) ACCURATE CREATININE CLEARANCE IN PREDICTING GLOMERULAR FILTRATION RATE. ESTIMATED GFR IS NOT APPLICABLE FOR DIALYSIS PATIENTS. POCT-GLUCOSE [id number] 22:20:00 Test Item Value Reference Range Comments POC-GLUCOSE METER (BEAKER) 164 mg/dL 70-110 TESTED AT [facility] [address] [facility] (test vrfd=5046) [facility] [address] PROTHROMBIN [id number] 22:15:00 Test Item Value Reference Range Comments PROTIME (BEAKER) (test ibid=806) 13.8 seconds 11.9-14.2 INR (BEAKER) (test cksj=694) 1.1 <=5.9 Effective 03/27/2019: PT Reference Range ChangeNew: 11.9-14.2 Previous: 11.7- 14.7RECOMMENDED COUMADIN/WARFARIN INR THERAPY RANGESSTANDARD DOSE: 2.0-3.0 Includes: PROPHYLAXIS for venous thrombosis, systemic embolization; TREATMENT for venous thrombosis and/or pulmonary embolus.HIGH RISK: Target INR is2.5-3.5 for patients wiht mechanical heart valves.[id number] 22:15:00 Test Item Value Reference Range Comments PARTIAL THROMBOPLASTIN TIME (BEAKER) (test 33.3 seconds 22.5-36.0 tptt=016) BASIC METABOLIC [id number] 21:43:00 Test Item Value Reference Range Comments SODIUM (BEAKER) (test 135 meq/L 136-145 vzfo=362) POTASSIUM (BEAKER) (test 5.1 meq/L 3.5-5.1 Specimen moderately wbqr=470) hemolyzed CHLORIDE (BEAKER) (test 104 meq/L 98-107 dust=390) CO2 (BEAKER) (test 22 meq/L 22-29 ayrc=305) BLOOD UREA NITROGEN 17 mg/dL 7-21 (BEAKER) (test zdtj=264) CREATININE (BEAKER) (test 0.72 mg/dL 0.57-1.25 Specimen moderately tado=927) hemolyzed GLUCOSE RANDOM (BEAKER) 161 mg/dL 70-105 (test qqyp=547) CALCIUM (BEAKER) (test 9.4 mg/dL 8.4-10.2 pcnk=992) EGFR (BEAKER) (test 110 mL/min/1.73 sq m ESTIMATED GFR IS NOT boqr=5947) ACCURATE CREATININE CLEARANCE IN PREDICTING GLOMERULAR FILTRATION RATE. ESTIMATED GFR IS NOT APPLICABLE FOR DIALYSIS PATIENTS. CBC W/PLT COUNT & AUTO [id number] 21:14:00 Test Item Value Reference Range Comments WHITE BLOOD CELL COUNT (BEAKER) (test oitb=954) 10.3 K/ L 3.5-10.5 RED BLOOD CELL COUNT (BEAKER) (test wtbq=855) 4.96 M/ L 4.63-6.08 HEMOGLOBIN (BEAKER) (test tzws=191) 15.2 GM/DL 13.7-17.5 HEMATOCRIT (BEAKER) (test rygu=340) 44.3 % 40.1-51.0 MEAN CORPUSCULAR VOLUME (BEAKER) (test vasv=929) 89.3 fL 79.0-92.2 MEAN CORPUSCULAR HEMOGLOBIN (BEAKER) (test 30.6 pg 25.7-32.2 trco=323) MEAN CORPUSCULAR HEMOGLOBIN CONC (BEAKER) (test 34.3 GM/DL 32.3-36.5 txak=202) RED CELL DISTRIBUTION WIDTH (BEAKER) (test 12.8 % 11.6-14.4 rosv=135) PLATELET COUNT (BEAKER) (test tgaj=269) 262 K/CU MM 150-450 MEAN PLATELET VOLUME (BEAKER) (test zdiw=608) 9.3 fL 9.4-12.4 NUCLEATED RED BLOOD CELLS (BEAKER) (test 0 /100 WBC 0-0 oqtu=516) NEUTROPHILS RELATIVE PERCENT (BEAKER) (test 73 % qeof=468) LYMPHOCYTES RELATIVE PERCENT (BEAKER) (test 19 % gply=816) MONOCYTES RELATIVE PERCENT (BEAKER) (test 7 % ofxt=038) EOSINOPHILS RELATIVE PERCENT (BEAKER) (test 1 % xdnl=654) BASOPHILS RELATIVE PERCENT (BEAKER) (test 0 % gcan=145) NEUTROPHILS ABSOLUTE COUNT (BEAKER) (test 7.53 K/ L 1.78-5.38 ztiw=801) LYMPHOCYTES ABSOLUTE COUNT (BEAKER) (test 1.94 K/ L 1.32-3.57 jxho=414) MONOCYTES ABSOLUTE COUNT (BEAKER) (test 0.69 K/ L 0.30-0.82 yefz=984) EOSINOPHILS ABSOLUTE COUNT (BEAKER) (test 0.12 K/ L 0.04-0.54 dnys=582) BASOPHILS ABSOLUTE COUNT (BEAKER) (test 0.03 K/ L 0.01-0.08 uiis=068) IMMATURE GRANULOCYTES-RELATIVE PERCENT (BEAKER) 0 % 0-1 (test skro=5851) BLOOD [id number] 05:01:00 Test Item Value Reference Range Comments CULTURE (BEAKER) (test ydbv=2211) No growth in 5 days BLOOD [id number] 05:01:00 Test Item Value Reference Range Comments CULTURE (BEAKER) (test peiv=6904) No growth in 5 days URINE [id number] 17:30:00 Test Item Value Reference Range Comments CULTURE (BEAKER) (test milx=7866) No growth POCT-GLUCOSE [id number] 12:44:00 Test Item Value Reference Range Comments POC-GLUCOSE METER (BEAKER) 243 mg/dL 70-110 TESTED AT [address] (test uhxj=2670) [place] [id number] VANCOMYCIN LEVEL, [id number] 09:18:00 Test Item Value Reference Range Comments VANCOMYCIN TROUGH (BEAKER) (test mnvc=173) 12.8 ug/mL 10.0-20.0 Please draw vancomycin trough level. If level greater than 20 mcg/mL, please hold 900 dose.POCT-GLUCOSE [id number] 08:07:00 Test Item Value Reference Range Comments POC-GLUCOSE METER (BEAKER) 225 mg/dL 70-110 TESTED AT [address] (test wqyy=4457) [place] [id number] POCT-GLUCOSE [id number] 21:42:00 Test Item Value Reference Range Comments POC-GLUCOSE METER (BEAKER) 304 mg/dL 70-110 TESTED AT [address] (test rwjx=5609) [place] [id number] POCT-GLUCOSE [id number] 18:30:00 Test Item Value Reference Range Comments POC-GLUCOSE METER (BEAKER) 259 mg/dL 70-110 TESTED AT [address] (test itpe=3929) [place] [id number] POCT-GLUCOSE [id number] 14:03:00 Test Item Value Reference Range Comments POC-GLUCOSE METER (BEAKER) 297 mg/dL 70-110 TESTED AT [address] (test hcny=1378) [facility] [address] RESPIRATORY PANEL [id number] 12:24:00 Test Item Value Reference Range Comments HUMAN METAPNEUMOVIRUS (BEAKER) (test Not detected Not detected, Equivocal hpvc=7823) RHINOVIRUS (BEAKER) (test wiuk=6300) Not detected Not detected, Equivocal INFLUENZA A (BEAKER) (test zcok=5162) Not detected Not detected, Equivocal INFLUENZA A (NO SUBTYPE) (test Not detected, Equivocal mdxz=5479) INFLUENZA A SUBTYPE H1 (BEAKER) (test Not detected, Equivocal pllj=8148) INFLUENZA A SUBTYPE H3 (BEAKER) (test Not detected, Equivocal wsca=8858) INFLUENZA A SUBTYPE H1-2009 (BEAKER) Not detected, Equivocal (test qqnx=0088) INFLUENZA B (BEAKER) (test trol=2536) Not detected Not detected, Equivocal RESPIRATORY SYNCYTIAL VIRUS (BEAKER) Not detected Not detected, Equivocal (test bphr=8390) PARAINFLUENZA VIRUS 1 (BEAKER) (test Not detected Not detected, Equivocal uiox=1709) PARAINFLUENZA VIRUS 2 (BEAKER) (test Not detected Not detected, Equivocal urrt=4473) PARAINFLUENZA VIRUS 3 (BEAKER) (test Not detected Not detected, Equivocal hhgm=2767) PARAINFLUENZA VIRUS 4 (BEAKER) (test Not detected Not detected, Equivocal rncw=7458) ADENOVIRUS (BEAKER) (test lmhu=7040) Not detected Not detected, Equivocal CORONAVIRUS 229E (BEAKER) (test Not detected Not detected, Equivocal vnof=1745) CORONAVIRUS HKU1 (BEAKER) (test Not detected Not detected, Equivocal dnow=1081) CORONAVIRUS NL63 (BEAKER) (test Not detected Not detected, Equivocal aewg=3137) CORONAVIRUS OC43 (BEAKER) (test Not detected Not detected, Equivocal wzch=4584) BORDETELLA PERTUSSIS (BEAKER) (test Not detected Not detected, Equivocal bwtm=5363) CHLAMYDOPHILA PNEUMONIAE (BEAKER) (test Not detected Not detected, Equivocal vpon=8686) MYCOPLASMA PNEUMONIAE (BEAKER) (test Not detected Not detected, Equivocal sorv=7867) Other viruses and bacteria not targeted by this PCR panel cannot be excluded; therefore clinical correlation and follow up of serology, culture results, and other molecular studies is required. The results are not intended to be used as the sole means for clinical diagnosis or patient management decisions. This sample was tested at the [facility] using the [employer]Array Respiratory Panel. It is FDA cleared and has been verified and approved by the [facility] for clinical use on nasal swab specimens. It is not FDA-cleared for use on bronchial wash/lavage samples. However, for this sample type, validation was performed and test characteristics were determined and approved, by [facility] laboratory for clinical use under the Clinical Laboratory Improvement Amendments (CLIA) of 1988 requirements. Therefore, FDA clearance isnot required. This laboratory is CLIA-certified and [employer] ([employer])-accredited to perform high complexity testing.POCT-GLUCOSE [id number] 07:58:00 Test Item Value Reference Range Comments POC-GLUCOSE METER (BEAKER) 209 mg/dL 70-110 TESTED AT [facility] [address] (test eucp=2639) [facility] [address] RAD, CHEST, 1 VIEW, NON [id number] 07:32:00Reason for exam:->interval change in interstitial patternShould [...] [place] Verified Date/Time: 10/05/2018 07:32:16 Reading Location: [facility] Radiology Reading Room BASIC METABOLIC [id number] 06:37:00 Test Item Value Reference Range Comments SODIUM (BEAKER) (test 140 meq/L 136-145 rmyp=740) POTASSIUM (BEAKER) (test 3.2 meq/L 3.5-5.1 frzf=569) CHLORIDE (BEAKER) (test 105 meq/L 98-107 rwwa=043) CO2 (BEAKER) (test 28 meq/L 22-29 hthc=682) BLOOD UREA NITROGEN 15 mg/dL 7-21 (BEAKER) (test igjo=476) CREATININE (BEAKER) (test 0.74 mg/dL 0.57-1.25 zrgw=102) GLUCOSE RANDOM (BEAKER) 191 mg/dL 70-105 (test swjb=438) CALCIUM (BEAKER) (test 9.1 mg/dL 8.4-10.2 rmpp=713) EGFR (BEAKER) (test 106 mL/min/1.73 sq m ESTIMATED GFR IS NOT lput=5032) ACCURATE CREATININE CLEARANCE IN PREDICTING GLOMERULAR FILTRATION RATE. ESTIMATED GFR IS NOT APPLICABLE FOR DIALYSIS PATIENTS. TROPONIN [id number] 06:35:00 Test Item Value Reference Range Comments TROPONIN I (BEAKER) (test vxsq=474) 0.02 ng/mL 0.00-0.03 Troponin I (TnI) levels [...] and persistent tachyarrhythmia.CBC W/PLT COUNT & AUTO [id number] 06:17:00 Test Item Value Reference Range Comments WHITE BLOOD CELL COUNT (BEAKER) (test txjs=041) 6.3 K/ L 3.5-10.5 RED BLOOD CELL COUNT (BEAKER) (test mcwo=405) 4.43 M/ L 4.63-6.08 HEMOGLOBIN (BEAKER) (test xebb=088) 13.6 GM/DL 13.7-17.5 HEMATOCRIT (BEAKER) (test isfs=510) 39.8 % 40.1-51.0 MEAN CORPUSCULAR VOLUME (BEAKER) (test fyiy=904) 89.8 fL 79.0-92.2 MEAN CORPUSCULAR HEMOGLOBIN (BEAKER) (test 30.7 pg 25.7-32.2 xlno=379) MEAN CORPUSCULAR HEMOGLOBIN CONC (BEAKER) (test 34.2 GM/DL 32.3-36.5 gfes=697) RED CELL DISTRIBUTION WIDTH (BEAKER) (test 13.1 % 11.6-14.4 ssfv=299) PLATELET COUNT (BEAKER) (test cyib=281) 200 K/CU MM 150-450 MEAN PLATELET VOLUME (BEAKER) (test epgr=098) 9.5 fL 9.4-12.4 NUCLEATED RED BLOOD CELLS (BEAKER) (test 0 /100 WBC 0-0 cyut=324) NEUTROPHILS RELATIVE PERCENT (BEAKER) (test 65 % drhv=572) LYMPHOCYTES RELATIVE PERCENT (BEAKER) (test 24 % erbj=455) MONOCYTES RELATIVE PERCENT (BEAKER) (test 8 % posc=916) EOSINOPHILS RELATIVE PERCENT (BEAKER) (test 2 % aiko=482) BASOPHILS RELATIVE PERCENT (BEAKER) (test 1 % dwyy=262) NEUTROPHILS ABSOLUTE COUNT (BEAKER) (test 4.12 K/ L 1.78-5.38 hgap=171) LYMPHOCYTES ABSOLUTE COUNT (BEAKER) (test 1.51 K/ L 1.32-3.57 aefy=246) MONOCYTES ABSOLUTE COUNT (BEAKER) (test 0.50 K/ L 0.30-0.82 opei=959) EOSINOPHILS ABSOLUTE COUNT (BEAKER) (test 0.15 K/ L 0.04-0.54 uhns=014) BASOPHILS ABSOLUTE COUNT (BEAKER) (test 0.03 K/ L 0.01-0.08 glvr=342) IMMATURE GRANULOCYTES-RELATIVE PERCENT (BEAKER) 1 % 0-1 (test cecf=4864) POCT-GLUCOSE [id number] 23:02:00 Test Item Value Reference Range Comments POC-GLUCOSE METER (BEAKER) 305 mg/dL 70-110 TESTED AT [facility] [address] [place] [address] (test btmy=7931) [facility] [address] TROPONIN [id number] 22:20:00 Test Item Value Reference Range Comments TROPONIN I (BEAKER) (test jtfz=104) 0.03 ng/mL 0.00-0.03 Troponin I (TnI) levels [...] acidosis, acute neurological disease, and persistent tachyarrhythmia.VITAMIN [id number] 18:10:00 Test Item Value Reference Range Comments VITAMIN B12 (BEAKER) (test ihtf=335) 596 pg/mL 213-816 TSH/FREE T4 IF [id number] 18:10:00 Test Item Value Reference Range Comments THYROID STIMULATING HORMONE (BEAKER) (test 0.64 uIU/mL 0.35-4.94 esel=236) POCT-GLUCOSE [id number] 17:15:00 Test Item Value Reference Range Comments POC-GLUCOSE METER (BEAKER) 178 mg/dL 70-110 TESTED AT [facility] [address] (test cafx=4752) [facility] [address] CT, BRAIN, WITHOUT [id number] 17:08:00FINAL REPORT CT head without contrast 10/04/2018 [...] Rivas Verified Date/Time: 10/04/2018 17:08:17 Reading Location: [facility] Radiology Reading Room BLOOD GAS, [id number] 16:32:00 Test Item Value Reference Range Comments PH ARTERIAL (BEAKER) (test lccp=891) 7.39 7.35-7.45 PCO2 ARTERIAL (BEAKER) (test igyb=476) 46 mmHg 35-45 PO2 ARTERIAL (BEAKER) (test vien=505) 71 mmHg 80-90 O2 SATURATION ARTERIAL (BEAKER) (test xuir=489) 94.1 % 96.0-97.0 HCO3 ARTERIAL (BEAKER) (test mdwg=055) 27 mmol/L 21-29 BASE EXCESS ARTERIAL (BEAKER) (test axeo=685) 1.5 mmol/L -2.0-3.0 PATIENT TEMPERATURE (BEAKER) (test ljai=1275) 37.0 C FIO2 (BEAKER) (test stpx=5479) 36.0 % RAPID INFLUENZA A&B [id number] 16:22:00 Test Item Value Reference Range Comments RAPID INFLUENZA A AG (BEAKER) (test Negative Negative, Inconclusive gjad=7191) RAPID INFLUENZA B AG (BEAKER) (test Negative Negative, Inconclusive hkpc=9671) B-TYPE NATRIURETIC FACTOR (BNP)2018-10-04 13:22:00 Test Item Value Reference Range Comments B-TYPE NATRIURETIC PEPTIDE (BEAKER) (test lnbh=012) 23 pg/mL 0-100 TROPONIN [id number] 13:21:00 Test Item Value Reference Range Comments TROPONIN I (BEAKER) (test jajb=371) 0.04 ng/mL 0.00-0.03 Troponin I (TnI) levels [...] failure, acidosis, acute neurological disease, and persistent tachyarrhythmia.[id number] 13:12:00 Test Item Value Reference Range Comments MAGNESIUM (BEAKER) (test kfiz=688) 1.1 mg/dL 1.6-2.6 BASIC METABOLIC [id number] 13:12:00 Test Item Value Reference Range Comments SODIUM (BEAKER) (test 140 meq/L 136-145 ocsr=562) POTASSIUM (BEAKER) (test 3.7 meq/L 3.5-5.1 ztor=778) CHLORIDE (BEAKER) (test 105 meq/L 98-107 hegv=614) CO2 (BEAKER) (test 25 meq/L 22-29 rqji=012) BLOOD UREA NITROGEN 24 mg/dL 7-21 (BEAKER) (test iudk=788) CREATININE (BEAKER) (test 0.90 mg/dL 0.57-1.25 qhwu=465) GLUCOSE RANDOM (BEAKER) 167 mg/dL 70-105 (test dbcv=320) CALCIUM (BEAKER) (test 9.1 mg/dL 8.4-10.2 oomz=729) EGFR (BEAKER) (test 85 mL/min/1.73 sq m ESTIMATED GFR IS NOT fibv=5241) ACCURATE CREATININE CLEARANCE IN PREDICTING GLOMERULAR FILTRATION RATE. ESTIMATED GFR IS NOT APPLICABLE FOR DIALYSIS PATIENTS. CBC W/PLT COUNT & AUTO [id number] 12:40:00 Test Item Value Reference Range Comments WHITE BLOOD CELL COUNT (BEAKER) (test zxhd=026) 9.5 K/ L 3.5-10.5 RED BLOOD CELL COUNT (BEAKER) (test thjm=008) 4.57 M/ L 4.63-6.08 HEMOGLOBIN (BEAKER) (test iixf=544) 13.8 GM/DL 13.7-17.5 HEMATOCRIT (BEAKER) (test iuxd=771) 40.8 % 40.1-51.0 MEAN CORPUSCULAR VOLUME (BEAKER) (test rkyn=643) 89.3 fL 79.0-92.2 MEAN CORPUSCULAR HEMOGLOBIN (BEAKER) (test 30.2 pg 25.7-32.2 aayg=251) MEAN CORPUSCULAR HEMOGLOBIN CONC (BEAKER) (test 33.8 GM/DL 32.3-36.5 kcjb=579) RED CELL DISTRIBUTION WIDTH (BEAKER) (test 13.2 % 11.6-14.4 ctdl=602) PLATELET COUNT (BEAKER) (test ywhs=555) 229 K/CU MM 150-450 MEAN PLATELET VOLUME (BEAKER) (test ekcq=083) 9.6 fL 9.4-12.4 NUCLEATED RED BLOOD CELLS (BEAKER) (test 0 /100 WBC 0-0 nypk=809) NEUTROPHILS RELATIVE PERCENT (BEAKER) (test 64 % taqh=545) LYMPHOCYTES RELATIVE PERCENT (BEAKER) (test 26 % gxrj=624) MONOCYTES RELATIVE PERCENT (BEAKER) (test 8 % dpmi=662) EOSINOPHILS RELATIVE PERCENT (BEAKER) (test 2 % nsox=527) BASOPHILS RELATIVE PERCENT (BEAKER) (test 1 % uayx=805) NEUTROPHILS ABSOLUTE COUNT (BEAKER) (test 6.05 K/ L 1.78-5.38 veeq=474) LYMPHOCYTES ABSOLUTE COUNT (BEAKER) (test 2.48 K/ L 1.32-3.57 btng=329) MONOCYTES ABSOLUTE COUNT (BEAKER) (test 0.73 K/ L 0.30-0.82 rxvk=880) EOSINOPHILS ABSOLUTE COUNT (BEAKER) (test 0.14 K/ L 0.04-0.54 nnbb=822) BASOPHILS ABSOLUTE COUNT (BEAKER) (test 0.05 K/ L 0.01-0.08 xavl=878) IMMATURE GRANULOCYTES-RELATIVE PERCENT (BEAKER) 1 % 0-1 (test dqok=7914) RAD, CHEST, 1 VIEW, NON [id number] 12:31:00Reason for exam:->chest painFINAL REPORT Chest one view. Clinical history: chest pain Comparison: September 07, 2018 Discussion: A frontal chest is provided. Cardiomediastinal contours are unchanged. There is mild bibasilar atelectasis, right greater than left. No new consolidation identified. No julisa pulmonary edema, pneumothorax, or significant effusion. Osseous structures demonstrate mild degenerative changes. Signed: Galen Pride Verified Date/Time: 10/04/2018 12:31:58 Reading Location: [facility] Radiology Reading Room FUNGUS CULTURE + [id number] 16:07:00 Test Item Value Reference Range Comments CULTURE (BEAKER) (test yjtq=1422) <1+ Lauren albicans FUNGUS SMEAR (BEAKER) (test No fungi seen lyht=6139) POCT-GLUCOSE [id number] 12:22:00 Test Item Value Reference Range Comments POC-GLUCOSE METER (BEAKER) 171 mg/dL 70-110 TESTED AT [address] (test lsag=8326) [facility] [address] POCT-GLUCOSE [id number] 08:28:00 Test Item Value Reference Range Comments POC-GLUCOSE METER (BEAKER) 212 mg/dL 70-110 TESTED AT [address] (test cign=6847) [facility] [address] POCT-GLUCOSE [id number] 21:23:00 Test Item Value Reference Range Comments POC-GLUCOSE METER (BEAKER) 266 mg/dL 70-110 TESTED AT [address] (test with=1153) [facility] [address] POCT-GLUCOSE [id number] 17:14:00 Test Item Value Reference Range Comments POC-GLUCOSE METER (BEAKER) 207 mg/dL 70-110 TESTED AT [address] (test crrn=8649) [facility] [address] POCT-GLUCOSE [id number] 11:43:00 Test Item Value Reference Range Comments POC-GLUCOSE METER (BEAKER) 182 mg/dL 70-110 TESTED AT [address] (test bdjt=9264) [facility] [address] POCT-GLUCOSE [id number] 06:58:00 Test Item Value Reference Range Comments POC-GLUCOSE METER (BEAKER) 186 mg/dL 70-110 TESTED AT [address] (test hcyn=0024) [facility] [address] POCT-GLUCOSE [id number] 21:22:00 Test Item Value Reference Range Comments POC-GLUCOSE METER (BEAKER) 230 mg/dL 70-110 TESTED AT [address] (test wcjr=7137) [facility] [address] POCT-GLUCOSE [id number] 16:28:00 Test Item Value Reference Range Comments POC-GLUCOSE METER (BEAKER) 218 mg/dL 70-110 TESTED AT [address] (test jzjf=9269) [facility] [address] POCT-GLUCOSE [id number] 11:28:00 Test Item Value Reference Range Comments POC-GLUCOSE METER (BEAKER) 215 mg/dL 70-110 TESTED AT [address] (test cizp=0579) [facility] [address] POCT-GLUCOSE [id number] 06:58:00 Test Item Value Reference Range Comments POC-GLUCOSE METER (BEAKER) 197 mg/dL 70-110 TESTED AT [address] (test xiti=6777) [facility] [address] POCT-GLUCOSE [id number] 21:35:00 Test Item Value Reference Range Comments POC-GLUCOSE METER (BEAKER) 266 mg/dL 70-110 TESTED AT [address] (test ykhf=5992) [facility] [address] POCT-GLUCOSE [id number] 17:08:00 Test Item Value Reference Range Comments POC-GLUCOSE METER (BEAKER) 189 mg/dL 70-110 TESTED AT [address] (test wngf=7202) [facility] [id number] POCT-GLUCOSE [id number] 11:44:00 Test Item Value Reference Range Comments POC-GLUCOSE METER (BEAKER) 223 mg/dL 70-110 TESTED AT [address] (test yhnh=7006) [facility] [address] POCT-GLUCOSE [id number] 07:21:00 Test Item Value Reference Range Comments POC-GLUCOSE METER (BEAKER) 173 mg/dL 70-110 TESTED AT [facility] [address] (test irgo=0039) [facility] [address] RAD, CHEST, 1 VIEW, NON [id number] 07:12:00Reason for exam:->pulm edemaShould this be performed at the bedside?->YesFINAL REPORT CLINICAL HISTORY: pulm edema TECHNIQUE: 1 view of the chest. COMPARISON : 09/06/2018 IMPRESSION: Right central line has been removed. There is decreased bibasilar atelectasis. There is no significant appearing pleural fluid. The cardiomediastinal silhouette is magnified by technique. Signed: Yimi Harkins Verified Date/Time: 09/07/2018 07:12:01 Reading Location : [facility] Radiology Reading Room [id number] 06:13:00 Test Item Value Reference Range Comments PHOSPHORUS (BEAKER) (test varz=515) 2.0 mg/dL 2.3-4.7 [id number] 06:13:00 Test Item Value Reference Range Comments MAGNESIUM (BEAKER) (test rjlb=197) 2.2 mg/dL 1.6-2.6 COMPREHENSIVE METABOLIC [id number] 06:13:00 Test Item Value Reference Range Comments TOTAL PROTEIN (BEAKER) 6.1 gm/dL 6.0-8.3 (test sijc=429) ALBUMIN (BEAKER) (test 3.3 g/dL 3.5-5.0 dgpy=7608) ALKALINE PHOSPHATASE 44 U/L 40-150 (BEAKER) (test pcxw=336) BILIRUBIN TOTAL (BEAKER) 0.6 mg/dL 0.2-1.2 (test hpnc=266) SODIUM (BEAKER) (test 141 meq/L 136-145 hgre=634) POTASSIUM (BEAKER) (test 3.5 meq/L 3.5-5.1 lata=663) CHLORIDE (BEAKER) (test 109 meq/L 98-107 obol=316) CO2 (BEAKER) (test 24 meq/L 22-29 dsfx=409) BLOOD UREA NITROGEN 11 mg/dL 7-21 (BEAKER) (test pwue=714) CREATININE (BEAKER) (test 0.63 mg/dL 0.57-1.25 wmhf=877) GLUCOSE RANDOM (BEAKER) 134 mg/dL 70-105 (test vqve=216) CALCIUM (BEAKER) (test 8.3 mg/dL 8.4-10.2 evab=048) AST (SGOT) (BEAKER) (test 21 U/L 5-34 qftv=565) ALT (SGPT) (BEAKER) (test 12 U/L 6-55 prvp=921) EGFR (BEAKER) (test 128 mL/min/1.73 sq ESTIMATED GFR IS NOT lley=4484) m ACCURATE CREATININE CLEARANCE IN PREDICTING GLOMERULAR FILTRATION RATE. ESTIMATED GFR IS NOT APPLICABLE FOR DIALYSIS PATIENTS. CBC W/PLT COUNT & AUTO [id number] 05:22:00 Test Item Value Reference Range Comments WHITE BLOOD CELL COUNT (BEAKER) (test jrjf=216) 6.9 K/ L 3.5-10.5 RED BLOOD CELL COUNT (BEAKER) (test saar=332) 3.83 M/ L 4.63-6.08 HEMOGLOBIN (BEAKER) (test jwin=845) 11.8 GM/DL 13.7-17.5 HEMATOCRIT (BEAKER) (test wqpz=326) 35.0 % 40.1-51.0 MEAN CORPUSCULAR VOLUME (BEAKER) (test klva=490) 91.4 fL 79.0-92.2 MEAN CORPUSCULAR HEMOGLOBIN (BEAKER) (test 30.8 pg 25.7-32.2 hvhz=522) MEAN CORPUSCULAR HEMOGLOBIN CONC (BEAKER) (test 33.7 GM/DL 32.3-36.5 hdlj=539) RED CELL DISTRIBUTION WIDTH (BEAKER) (test 13.3 % 11.6-14.4 rvcm=644) PLATELET COUNT (BEAKER) (test nqdb=601) 237 K/CU MM 150-450 MEAN PLATELET VOLUME (BEAKER) (test wzzx=376) 9.8 fL 9.4-12.4 NUCLEATED RED BLOOD CELLS (BEAKER) (test 0 /100 WBC 0-0 mcvi=203) NEUTROPHILS RELATIVE PERCENT (BEAKER) (test 61 % snrh=381) LYMPHOCYTES RELATIVE PERCENT (BEAKER) (test 29 % skfg=742) MONOCYTES RELATIVE PERCENT (BEAKER) (test 8 % zljw=564) EOSINOPHILS RELATIVE PERCENT (BEAKER) (test 1 % vsqf=625) BASOPHILS RELATIVE PERCENT (BEAKER) (test 0 % qdqd=444) NEUTROPHILS ABSOLUTE COUNT (BEAKER) (test 4.21 K/ L 1.78-5.38 hjqp=588) LYMPHOCYTES ABSOLUTE COUNT (BEAKER) (test 1.98 K/ L 1.32-3.57 dsxu=858) MONOCYTES ABSOLUTE COUNT (BEAKER) (test 0.54 K/ L 0.30-0.82 bsiy=888) EOSINOPHILS ABSOLUTE COUNT (BEAKER) (test 0.07 K/ L 0.04-0.54 vvcd=204) BASOPHILS ABSOLUTE COUNT (BEAKER) (test 0.03 K/ L 0.01-0.08 yknd=614) IMMATURE GRANULOCYTES-RELATIVE PERCENT (BEAKER) 1 % 0-1 (test vgnv=9675) POCT-GLUCOSE [id number] 21:22:00 Test Item Value Reference Range Comments POC-GLUCOSE METER (BEAKER) 223 mg/dL 70-110 TESTED [address] [address] (test brfi=0765) [place] [address] POCT-GLUCOSE [id number] 17:32:00 Test Item Value Reference Range Comments POC-GLUCOSE METER (BEAKER) 204 mg/dL 70-110 TESTED AT [address] (test pkvo=5545) [place] [address] MISCELLANEOUS LAB [id number] 14:45:00 Test Item Value Reference Range Comments SCAN RESULT (test gccb=[id number]) POCT-GLUCOSE [id number] 13:12:00 Test Item Value Reference Range Comments POC-GLUCOSE METER (BEAKER) 224 mg/dL 70-110 TESTED AT [address] (test cnbb=4020) [place] [id number] POCT-GLUCOSE [id number] 07:36:00 Test Item Value Reference Range Comments POC-GLUCOSE METER (BEAKER) 173 mg/dL 70-110 TESTED AT [address] (test qaib=5348) [place] [id number] RAD, CHEST, 1 VIEW, NON [id number] 07:19:00Reason for exam:->pulm edemaShould this be performed [...] MDReport Verified Date/Time: 09/06/2018 07:19:50 Reading Location: [facility] Radiology Reading Room COMPREHENSIVE METABOLIC [id number] 05:49:00 Test Item Value Reference Range Comments TOTAL PROTEIN (BEAKER) 5.6 gm/dL 6.0-8.3 (test yczl=906) ALBUMIN (BEAKER) (test 3.0 g/dL 3.5-5.0 hydg=8354) ALKALINE PHOSPHATASE 38 U/L 40-150 (BEAKER) (test xrqn=107) BILIRUBIN TOTAL (BEAKER) 0.5 mg/dL 0.2-1.2 (test thxh=503) SODIUM (BEAKER) (test 142 meq/L 136-145 kwbd=046) POTASSIUM (BEAKER) (test 3.4 meq/L 3.5-5.1 skbm=626) CHLORIDE (BEAKER) (test 112 meq/L 98-107 vwsc=016) CO2 (BEAKER) (test 24 meq/L 22-29 nnsf=586) BLOOD UREA NITROGEN 14 mg/dL 7-21 (BEAKER) (test olmh=380) CREATININE (BEAKER) (test 0.59 mg/dL 0.57-1.25 mdya=018) GLUCOSE RANDOM (BEAKER) 147 mg/dL 70-105 (test exmq=774) CALCIUM (BEAKER) (test 7.7 mg/dL 8.4-10.2 qbur=134) AST (SGOT) (BEAKER) (test 16 U/L 5-34 rmcv=335) ALT (SGPT) (BEAKER) (test 10 U/L 6-55 iubj=685) EGFR (BEAKER) (test 138 mL/min/1.73 sq ESTIMATED GFR IS NOT svzb=0476) m ACCURATE CREATININE CLEARANCE IN PREDICTING GLOMERULAR FILTRATION RATE. ESTIMATED GFR IS NOT APPLICABLE FOR DIALYSIS PATIENTS. [id number] 05:47:00 Test Item Value Reference Range Comments PHOSPHORUS (BEAKER) (test gkfc=542) 1.9 mg/dL 2.3-4.7 [id number] 05:47:00 Test Item Value Reference Range Comments MAGNESIUM (BEAKER) (test xgoy=507) 2.0 mg/dL 1.6-2.6 CBC W/PLT COUNT & AUTO [id number] 05:34:00 Test Item Value Reference Range Comments WHITE BLOOD CELL COUNT (BEAKER) (test mudp=193) 6.7 K/ L 3.5-10.5 RED BLOOD CELL COUNT (BEAKER) (test liwn=668) 3.80 M/ L 4.63-6.08 HEMOGLOBIN (BEAKER) (test uknv=820) 11.6 GM/DL 13.7-17.5 HEMATOCRIT (BEAKER) (test rapf=239) 34.9 % 40.1-51.0 MEAN CORPUSCULAR VOLUME (BEAKER) (test htps=184) 91.8 fL 79.0-92.2 MEAN CORPUSCULAR HEMOGLOBIN (BEAKER) (test 30.5 pg 25.7-32.2 gzmz=675) MEAN CORPUSCULAR HEMOGLOBIN CONC (BEAKER) (test 33.2 GM/DL 32.3-36.5 wqco=641) RED CELL DISTRIBUTION WIDTH (BEAKER) (test 13.2 % 11.6-14.4 evbh=972) PLATELET COUNT (BEAKER) (test rszr=920) 215 K/CU MM 150-450 MEAN PLATELET VOLUME (BEAKER) (test laoq=867) 9.2 fL 9.4-12.4 NUCLEATED RED BLOOD CELLS (BEAKER) (test 0 /100 WBC 0-0 mkca=867) NEUTROPHILS RELATIVE PERCENT (BEAKER) (test 68 % zjuk=402) LYMPHOCYTES RELATIVE PERCENT (BEAKER) (test 22 % uqme=546) MONOCYTES RELATIVE PERCENT (BEAKER) (test 7 % xhoa=293) EOSINOPHILS RELATIVE PERCENT (BEAKER) (test 2 % aobr=216) BASOPHILS RELATIVE PERCENT (BEAKER) (test 0 % lapk=114) NEUTROPHILS ABSOLUTE COUNT (BEAKER) (test 4.53 K/ L 1.78-5.38 evhn=322) LYMPHOCYTES ABSOLUTE COUNT (BEAKER) (test 1.50 K/ L 1.32-3.57 pvzu=745) MONOCYTES ABSOLUTE COUNT (BEAKER) (test 0.47 K/ L 0.30-0.82 suow=241) EOSINOPHILS ABSOLUTE COUNT (BEAKER) (test 0.13 K/ L 0.04-0.54 vccu=202) BASOPHILS ABSOLUTE COUNT (BEAKER) (test 0.02 K/ L 0.01-0.08 keiu=848) IMMATURE GRANULOCYTES-RELATIVE PERCENT (BEAKER) 1 % 0-1 (test axly=4634) POCT-GLUCOSE [id number] 22:53:00 Test Item Value Reference Range Comments POC-GLUCOSE METER (BEAKER) 206 mg/dL 70-110 TESTED AT [facility] [address] [place] [address] (test ophv=6055) [facility] [address] MR, SPINE, LUMBAR, [id number] 18:10:00FINAL REPORT MRI lumbar spine with and [...] and left foraminal disc protrusions. There is jlgj-pb-elzavtzl narrowing of the central canal, and left [...] MDReport Verified Date/Time: 09/05/2018 18:10:50 Reading Location: [address] Neuro Reading Room POCT-GLUCOSE [id number] 18:07:00 Test Item Value Reference Range Comments POC-GLUCOSE METER (BEAKER) 183 mg/dL 70-110 TESTED AT [address] (test ypkr=5798) [place] [address] POCT-GLUCOSE [id number] 11:53:00 Test Item Value Reference Range Comments POC-GLUCOSE METER (BEAKER) 324 mg/dL 70-110 Notified MILLA CARPENTER/TESTED AT [facility] (test pjov=9981) [address] [place] [address] [id number] 10:47:00 Test Item Value Reference Range Comments LIPASE (BEAKER) (test ocyj=290) 141 U/L 8-78 POCT-GLUCOSE [id number] 07:43:00 Test Item Value Reference Range Comments POC-GLUCOSE METER (BEAKER) 176 mg/dL 70-110 TESTED AT [address] (test hulf=8726) [place] [address] RAD, CHEST, 1 VIEW, NON [id number] 05:49:00Reason for exam:->pulm edemaShould this be performed at the bedside?->YesFINAL REPORT RAD, CHEST, 1 VIEW, NON DEPT INDICATION: pulm edema COMPARISON: Prior day's exam FINDINGS: Portable frontal view of the chest. IMPRESSION: Support Lines: Stable. Lungs and pleura: Unchanged airspace and pleural opacities. No pneumothorax.Heart and mediastinum: Stable contours. Additional findings: None. Signed: Ozzie Avila Verified Date/Time: 09/05/2018 05:49:04 Reading Location: [facility] C013T Transitional Reading Room [id number] 04:38 :00 Test Item Value Reference Range Comments PHOSPHORUS (BEAKER) (test hvhf=641) 2.6 mg/dL 2.3-4.7 [id number] 04:38:00 Test Item Value Reference Range Comments MAGNESIUM (BEAKER) (test megq=019) 2.2 mg/dL 1.6-2.6 COMPREHENSIVE METABOLIC [id number] 04:38:00 Test Item Value Reference Range Comments TOTAL PROTEIN (BEAKER) 6.1 gm/dL 6.0-8.3 (test twdo=433) ALBUMIN (BEAKER) (test 3.3 g/dL 3.5-5.0 gquh=8511) ALKALINE PHOSPHATASE 42 U/L 40-150 (BEAKER) (test zmrn=158) BILIRUBIN TOTAL (BEAKER) 0.6 mg/dL 0.2-1.2 (test zpen=932) SODIUM (BEAKER) (test 144 meq/L 136-145 aplz=907) POTASSIUM (BEAKER) (test 3.9 meq/L 3.5-5.1 drif=962) CHLORIDE (BEAKER) (test 111 meq/L 98-107 crfi=249) CO2 (BEAKER) (test 26 meq/L 22-29 pigb=458) BLOOD UREA NITROGEN 22 mg/dL 7-21 (BEAKER) (test wchg=415) CREATININE (BEAKER) (test 0.72 mg/dL 0.57-1.25 hkit=273) GLUCOSE RANDOM (BEAKER) 165 mg/dL 70-105 (test udnt=245) CALCIUM (BEAKER) (test 8.4 mg/dL 8.4-10.2 ccqf=409) AST (SGOT) (BEAKER) (test 16 U/L 5-34 njdr=271) ALT (SGPT) (BEAKER) (test 10 U/L 6-55 yfks=309) EGFR (BEAKER) (test 110 mL/min/1.73 sq ESTIMATED GFR IS NOT dvvf=1217) m ACCURATE CREATININE CLEARANCE IN PREDICTING GLOMERULAR FILTRATION RATE. ESTIMATED GFR IS NOT APPLICABLE FOR DIALYSIS PATIENTS. CBC W/PLT COUNT & AUTO [id number] 04:16:00 Test Item Value Reference Range Comments WHITE BLOOD CELL COUNT (BEAKER) (test vhnf=864) 10.5 K/ L 3.5-10.5 RED BLOOD CELL COUNT (BEAKER) (test kpal=636) 3.87 M/ L 4.63-6.08 HEMOGLOBIN (BEAKER) (test html=061) 11.8 GM/DL 13.7-17.5 HEMATOCRIT (BEAKER) (test ojbs=710) 36.0 % 40.1-51.0 MEAN CORPUSCULAR VOLUME (BEAKER) (test piaz=116) 93.0 fL 79.0-92.2 MEAN CORPUSCULAR HEMOGLOBIN (BEAKER) (test 30.5 pg 25.7-32.2 rvyn=196) MEAN CORPUSCULAR HEMOGLOBIN CONC (BEAKER) (test 32.8 GM/DL 32.3-36.5 hrlh=765) RED CELL DISTRIBUTION WIDTH (BEAKER) (test 13.5 % 11.6-14.4 lhop=782) PLATELET COUNT (BEAKER) (test peaj=635) 263 K/CU MM 150-450 MEAN PLATELET VOLUME (BEAKER) (test kjya=880) 9.5 fL 9.4-12.4 NUCLEATED RED BLOOD CELLS (BEAKER) (test 0 /100 WBC 0-0 zewo=341) NEUTROPHILS RELATIVE PERCENT (BEAKER) (test 74 % xqfa=744) LYMPHOCYTES RELATIVE PERCENT (BEAKER) (test 18 % mazn=818) MONOCYTES RELATIVE PERCENT (BEAKER) (test 5 % quty=239) EOSINOPHILS RELATIVE PERCENT (BEAKER) (test 2 % zutl=890) BASOPHILS RELATIVE PERCENT (BEAKER) (test 0 % vxne=313) NEUTROPHILS ABSOLUTE COUNT (BEAKER) (test 7.70 K/ L 1.78-5.38 yogv=095) LYMPHOCYTES ABSOLUTE COUNT (BEAKER) (test 1.89 K/ L 1.32-3.57 ehke=383) MONOCYTES ABSOLUTE COUNT (BEAKER) (test 0.56 K/ L 0.30-0.82 tpsu=640) EOSINOPHILS ABSOLUTE COUNT (BEAKER) (test 0.18 K/ L 0.04-0.54 qoyj=386) BASOPHILS ABSOLUTE COUNT (BEAKER) (test 0.04 K/ L 0.01-0.08 iyjj=725) IMMATURE GRANULOCYTES-RELATIVE PERCENT (BEAKER) 1 % 0-1 (test slux=5525) U/S, ABDOMINAL, [id number] 02:32:00Reason for exam:->abd distension, nausea,vomittingShould this be [...] Ozzie Avila Verified Date/Time: 02:32:11 Reading Location: [address] Transitional Reading Room Electronically signed by: Hitesh ZARATE 09/05/2018 02:32 AMCT, [id number] 21:34:00Elevated lipaseFINAL REPORT CLINICAL HISTORY: Nausea, vomiting, [...] Verified Date/Time: 09/04/2018 21: 34:29 Reading Location: [address] Reading Room POCT- GLUCOSE [id number] 21:30:00 Test Item Value Reference Range Comments POC-GLUCOSE METER (BEAKER) 159 mg/dL 70-110 TESTED AT [address] (test jwto=5304) [facility] [address] VANCOMYCIN LEVEL, [id number] 21:17:00 Test Item Value Reference Range Comments VANCOMYCIN TROUGH (BEAKER) (test jzkm=899) 9.0 ug/mL 10.0-20.0 Please draw vancomycin trough level 09/04 at 2030 hold if trough >20POCT- GLUCOSE [id number] 18:32:00 Test Item Value Reference Range Comments POC-GLUCOSE METER (BEAKER) 174 mg/dL 70-110 TESTED AT [address] (test toda=9736) [facility] [address] NEEDLE EMG, 4 [id number] 16:22:00Reason for exam:->r/o ALSBaylGeorge L. Mee [facility] HospitalNeurophysiology DepartmentELECTROMYOGRAPHY - NERVE CONDUCTION STUDY [address] [place] [address] [address] [place], [place] [id number] Name : Garrison Burnett : Date of [...] mm Median.LWrist 4.0 ms 4.6 ms 4 𘉑V Digit II (index finger)-Wrist 4.0 ms 130 mm 33 m/sUlnar.LWrist NR NR NR Digit V (little finger)-Wrist 110 mm Radial.LForearm 1.1 ms 2.0 ms 23 啄V Anatomical snuff box-Forearm 1.1 ms 110 mm 55 m/sSural.RLower leg 2.4 ms 3.5 ms 5 䮨V Ankle-Lower leg 2.4 ms 140 mm 40 m/sMedian.RWrist 3.8 ms 4.5 ms 8 𓷙V Digit II (index finger)-Wrist 3.8 ms 130 mm 34 m/sUlnar.RWrist NR NR NR Digit V (little finger)- Wrist 110 mm Radial.RForearm 1.9 ms 2.5 ms 18 V Anatomical snuff box-Forearm 1.9 ms 95 mm [...] Henriquez M.D. RAD, CHEST, 1 VIEW, NON [id number] 10:58:00Reason for exam:->pulm edemaShould this be performed [...] Pride Verified Date/Time: 09/04/2018 10:58:17 Reading Location: [facility] Radiology Reading Room [id number] 10:53:00 Test Item Value Reference Range Comments LIPASE (BEAKER) (test lzng=929) 122 U/L 8-78 [id number] 10:53:00 Test Item Value Reference Range Comments AMYLASE (BEAKER) (test ogeq=833) 86 U/L 25-125 RAD, ABDOMEN/KUB, 1 VIEW [id number] 10:34:00Reason for exam:->abdominal distensionShould this be performed [...] Pride Verified Date/Time: 09/04/2018 10:34:31 Reading Location: [facility] Radiology Reading Room Electronically signed by: GALEN PRIDE M.D. on09/04/2018 10:34 AMBLOOD [id number] 10:01:00 Test Item Value Reference Range Comments CULTURE (BEAKER) (test avrx=2678) No growth in 5 days POCT-GLUCOSE [id number] 08:11:00 Test Item Value Reference Range Comments POC-GLUCOSE METER (BEAKER) 233 mg/dL 70-110 TESTED AT [facility] [address] [facility] (test csoj=8616) [facility] [address] BLOOD [id number] 05:01:00 Test Item Value Reference Range Comments CULTURE (BEAKER) (test rmru=9826) No growth in 5 days [id number] 03:50:00 Test Item Value Reference Range Comments PHOSPHORUS (BEAKER) (test died=928) 2.5 mg/dL 2.3-4.7 [id number] 03:50:00 Test Item Value Reference Range Comments MAGNESIUM (BEAKER) (test tljy=753) 2.2 mg/dL 1.6-2.6 COMPREHENSIVE METABOLIC [id number] 03:50:00 Test Item Value Reference Range Comments TOTAL PROTEIN (BEAKER) 7.1 gm/dL 6.0-8.3 (test kwoj=217) ALBUMIN (BEAKER) (test 3.7 g/dL 3.5-5.0 nmxo=9752) ALKALINE PHOSPHATASE 46 U/L 40-150 (BEAKER) (test nfaw=766) BILIRUBIN TOTAL (BEAKER) 0.6 mg/dL 0.2-1.2 (test fjtk=557) SODIUM (BEAKER) (test 143 meq/L 136-145 trqi=825) POTASSIUM (BEAKER) (test 3.8 meq/L 3.5-5.1 wagv=001) CHLORIDE (BEAKER) (test 106 meq/L 98-107 wvvp=004) CO2 (BEAKER) (test 27 meq/L 22-29 xvyz=801) BLOOD UREA NITROGEN 20 mg/dL 7-21 (BEAKER) (test mcqn=977) CREATININE (BEAKER) (test 0.76 mg/dL 0.57-1.25 papk=701) GLUCOSE RANDOM (BEAKER) 219 mg/dL 70-105 (test vdaq=396) CALCIUM (BEAKER) (test 9.1 mg/dL 8.4-10.2 zdln=363) AST (SGOT) (BEAKER) (test 17 U/L 5-34 epwj=692) ALT (SGPT) (BEAKER) (test 14 U/L 6-55 xmyv=521) EGFR (BEAKER) (test 103 mL/min/1.73 sq ESTIMATED GFR IS NOT vbhk=1730) m ACCURATE CREATININE CLEARANCE IN PREDICTING GLOMERULAR FILTRATION RATE. ESTIMATED GFR IS NOT APPLICABLE FOR DIALYSIS PATIENTS. CBC W/PLT COUNT & AUTO [id number] 03:33:00 Test Item Value Reference Range Comments WHITE BLOOD CELL COUNT (BEAKER) (test twfi=424) 13.5 K/ L 3.5-10.5 RED BLOOD CELL COUNT (BEAKER) (test zrao=713) 4.28 M/ L 4.63-6.08 HEMOGLOBIN (BEAKER) (test fowz=016) 13.3 GM/DL 13.7-17.5 HEMATOCRIT (BEAKER) (test spni=793) 39.0 % 40.1-51.0 MEAN CORPUSCULAR VOLUME (BEAKER) (test ssbl=446) 91.1 fL 79.0-92.2 MEAN CORPUSCULAR HEMOGLOBIN (BEAKER) (test 31.1 pg 25.7-32.2 cugo=972) MEAN CORPUSCULAR HEMOGLOBIN CONC (BEAKER) (test 34.1 GM/DL 32.3-36.5 cdnp=553) RED CELL DISTRIBUTION WIDTH (BEAKER) (test 13.4 % 11.6-14.4 behc=969) PLATELET COUNT (BEAKER) (test ucgx=186) 270 K/CU MM 150-450 MEAN PLATELET VOLUME (BEAKER) (test dufw=619) 9.4 fL 9.4-12.4 NUCLEATED RED BLOOD CELLS (BEAKER) (test 0 /100 WBC 0-0 omwi=079) NEUTROPHILS RELATIVE PERCENT (BEAKER) (test 84 % rsar=911) LYMPHOCYTES RELATIVE PERCENT (BEAKER) (test 9 % hdwg=208) MONOCYTES RELATIVE PERCENT (BEAKER) (test 5 % dfea=893) EOSINOPHILS RELATIVE PERCENT (BEAKER) (test 1 % jqjj=119) BASOPHILS RELATIVE PERCENT (BEAKER) (test 0 % mait=615) NEUTROPHILS ABSOLUTE COUNT (BEAKER) (test 11.40 K/ L 1.78-5.38 qieq=498) LYMPHOCYTES ABSOLUTE COUNT (BEAKER) (test 1.22 K/ L 1.32-3.57 kwyx=218) MONOCYTES ABSOLUTE COUNT (BEAKER) (test 0.71 K/ L 0.30-0.82 nxnm=171) EOSINOPHILS ABSOLUTE COUNT (BEAKER) (test 0.08 K/ L 0.04-0.54 jsyn=511) BASOPHILS ABSOLUTE COUNT (BEAKER) (test 0.04 K/ L 0.01-0.08 eprz=627) IMMATURE GRANULOCYTES-RELATIVE PERCENT (BEAKER) 1 % 0-1 (test wifg=0365) POCT-GLUCOSE [id number] 22:18:00 Test Item Value Reference Range Comments POC-GLUCOSE METER (BEAKER) 262 mg/dL 70-110 TESTED AT [facility] [address] [facility] (test zxgz=6913) [facility] [address] C. DIFFICILE GDH [id number] 20:32:00 Test Item Value Reference Range Comments CDT TOXIN (test Negative Negative wsly=[id number]) CDT GDH ANTIGEN (test Negative Negative No indication of Clostridium nwvd=[id number]) difficile infection and no colonization. Discontinue enteric isolation and therapy. Testing performed by [employer] Rapid Cassette Assay. For GDH, published sensitivity of the assay is 98.7% compared to cytotoxicity testing. For Toxin AB, published sensitivity is 87.8% and specificity 99.4% compared to cytotoxicity testing.Verification of kit performance was done by the [facility] Microbiology Lab prior to clinical use.RAD, ABDOMEN/KUB, 1 VIEW [id number] 18: 40:00Reason for exam:->abdominal distensionShould this be performed at the bedside?->YesFINAL REPORT Comparison: 08/30/2018 TECHNIQUE: Frontal images of the abdomen Discussion: Abdomen: Bowel gas pattern is nonobstructed. There is no free intraperitoneal air. No soft tissue abnormalities. No acute skeletal abnormality. Right upper: Cholecystectomy clips are seen.Impression: 1. Nonspecific bowel gas pattern. Signed: Shailesh Hardingeport Verified Date/Time: 09/03/2018 18:40:53 Reading Location: [facility] Reading Room Electronically signed by: SHAILESH HARDING M.D. on 2017 06:40 PMPOCT-GLUCOSE [id number] 17:23:00 Test Item Value Reference Range Comments POC-GLUCOSE METER (BEAKER) 215 mg/dL 70-110 TESTED AT [facility] [address] (test hyuz=9443) [facility] [address] BLOOD GAS, [id number] 17:05:00 Test Item Value Reference Range Comments PH ARTERIAL (BEAKER) (test ixrt=102) 7.49 7.35-7.45 PCO2 ARTERIAL (BEAKER) (test asbv=459) 37 mmHg 35-45 PO2 ARTERIAL (BEAKER) (test osjy=143) 69 mmHg 80-90 O2 SATURATION ARTERIAL (BEAKER) (test lhfz=825) 95.1 % 96.0-97.0 HCO3 ARTERIAL (BEAKER) (test seci=993) 27 mmol/L 21-29 BASE EXCESS ARTERIAL (BEAKER) (test thye=039) 3.8 mmol/L -2.0-3.0 PATIENT TEMPERATURE (BEAKER) (test jmzm=0322) 36.9 C FIO2 (BEAKER) (test hcad=5422) 28.0 % BLOOD GAS, [id number] 16:42:00 Test Item Value Reference Range Comments PH ARTERIAL (BEAKER) (test amng=642) 7.45 7.35-7.45 PCO2 ARTERIAL (BEAKER) (test hxdv=516) 39 mmHg 35-45 PO2 ARTERIAL (BEAKER) (test cdsb=661) 40 mmHg 80-90 O2 SATURATION ARTERIAL (BEAKER) (test wqlk=707) 78.0 % 96.0-97.0 HCO3 ARTERIAL (BEAKER) (test pwpf=122) 27 mmol/L 21-29 BASE EXCESS ARTERIAL (BEAKER) (test zegz=171) 2.6 mmol/L -2.0-3.0 PATIENT TEMPERATURE (BEAKER) (test htuy=5089) 36.7 C FIO2 (BEAKER) (test bvxz=3546) 28.0 % [id number] 15:06:00Medical Cytology Report Case: [id number] Authorizing Provider: Nannette Marie NP Collected: 08/31/2018 1146 Ordering Location: [place] [address] CCU Received: 09/03/2018 0947 Pathologist: Shannon Norman Specimen: Lung, Right Middle Lobe RIGHT MIDDLE LOBE LUNG, BAL ( CYTOSPINS): - NEGATIVE FOR MALIGNANCY Signing Pathologist Direct Phone Line: [phone] signed by Shannon Norman on 09/03/2018 at 3:06 [id number], PneumoniaRIGHT MIDDLE LOBE LUNG BALPrepared 4 cytospins from 20 ml colorless fluidCollected: [id number]: [id number] [facility], Department of Pathology, [address] [place] [address], [facility], [address] [place] [address] , [facility], [facility] of [facility]ology, [address] [place] [address], XKOB-GLUCOSE [id number] 11:22:00 Test Item Value Reference Range Comments POC-GLUCOSE METER (BEAKER) 224 mg/dL 70-110 TESTED AT [address] (test vhtb=5169) [place] [address] RAD, CHEST, 1 VIEW, NON [id number] 06:16:00Reason for exam:->ETT placementShould this be performed [...] Date/Time: 09/03/2018 06:16 :06 Reading Location: [address] Reading Room [id number] 05:13:00 Test Item Value Reference Range Comments MAGNESIUM (BEAKER) (test qfdm=075) 2.0 mg/dL 1.6-2.6 BASIC METABOLIC [id number] 05:13:00 Test Item Value Reference Range Comments SODIUM (BEAKER) (test 142 meq/L 136-145 tjqt=479) POTASSIUM (BEAKER) (test 4.1 meq/L 3.5-5.1 dodq=505) CHLORIDE (BEAKER) (test 108 meq/L 98-107 saxz=737) CO2 (BEAKER) (test 21 meq/L 22-29 ofoy=429) BLOOD UREA NITROGEN 20 mg/dL 7-21 (BEAKER) (test xmrp=735) CREATININE (BEAKER) (test 0.78 mg/dL 0.57-1.25 bbcy=187) GLUCOSE RANDOM (BEAKER) 213 mg/dL 70-105 (test ktfq=956) CALCIUM (BEAKER) (test 9.5 mg/dL 8.4-10.2 bioj=910) EGFR (BEAKER) (test 100 mL/min/1.73 sq m ESTIMATED GFR IS NOT olmg=0797) ACCURATE CREATININE CLEARANCE IN PREDICTING GLOMERULAR FILTRATION RATE. ESTIMATED GFR IS NOT APPLICABLE FOR DIALYSIS PATIENTS. CBC W/PLT COUNT & AUTO [id number] 04:59:00 Test Item Value Reference Range Comments WHITE BLOOD CELL COUNT (BEAKER) (test esxd=469) 14.4 K/ L 3.5-10.5 RED BLOOD CELL COUNT (BEAKER) (test wiub=676) 4.35 M/ L 4.63-6.08 HEMOGLOBIN (BEAKER) (test trim=422) 13.2 GM/DL 13.7-17.5 HEMATOCRIT (BEAKER) (test mdod=238) 39.2 % 40.1-51.0 MEAN CORPUSCULAR VOLUME (BEAKER) (test sudd=054) 90.1 fL 79.0-92.2 MEAN CORPUSCULAR HEMOGLOBIN (BEAKER) (test 30.3 pg 25.7-32.2 rjiw=169) MEAN CORPUSCULAR HEMOGLOBIN CONC (BEAKER) (test 33.7 GM/DL 32.3-36.5 xcgh=243) RED CELL DISTRIBUTION WIDTH (BEAKER) (test 13.3 % 11.6-14.4 ygxz=645) PLATELET COUNT (BEAKER) (test xths=222) 254 K/CU MM 150-450 MEAN PLATELET VOLUME (BEAKER) (test kldj=257) 9.5 fL 9.4-12.4 NUCLEATED RED BLOOD CELLS (BEAKER) (test 0 /100 WBC 0-0 qdzf=626) NEUTROPHILS RELATIVE PERCENT (BEAKER) (test 85 % cpra=582) LYMPHOCYTES RELATIVE PERCENT (BEAKER) (test 8 % yzkf=241) MONOCYTES RELATIVE PERCENT (BEAKER) (test 5 % ccwd=996) EOSINOPHILS RELATIVE PERCENT (BEAKER) (test 1 % szdx=486) BASOPHILS RELATIVE PERCENT (BEAKER) (test 0 % gbsu=192) NEUTROPHILS ABSOLUTE COUNT (BEAKER) (test 12.25 K/ L 1.78-5.38 nebq=843) LYMPHOCYTES ABSOLUTE COUNT (BEAKER) (test 1.21 K/ L 1.32-3.57 rfie=791) MONOCYTES ABSOLUTE COUNT (BEAKER) (test 0.70 K/ L 0.30-0.82 kgsi=008) EOSINOPHILS ABSOLUTE COUNT (BEAKER) (test 0.10 K/ L 0.04-0.54 iehg=969) BASOPHILS ABSOLUTE COUNT (BEAKER) (test 0.03 K/ L 0.01-0.08 jmep=672) IMMATURE GRANULOCYTES-RELATIVE PERCENT (BEAKER) 1 % 0-1 (test psts=9317) MR, SPINE, CERVICAL, [id number] 00:54:00FINAL REPORT MR Cervical spine with and [...] Verified Date/ Time: 09/03/2018 00:54:27 Reading Location: [id number] Transitional Reading Room VANCOMYCIN LEVEL, [id number] 00:52:00 Test Item Value Reference Range Comments VANCOMYCIN TROUGH (BEAKER) (test wilc=006) 8.0 ug/mL 10.0-20.0 MR, MRA, NECK, WITHOUT IV [id number] 00:45:00FINAL REPORT CLINICAL HISTORY: r/o ALS TECHNIQUE: MRI of the brain utilizing axial T2, FLAIR, GRE, DWI; sagittal and coronal T1-weighted images as well as postcontrast T1 weighted images. MRA of the head utilizing 3-D ikai-ef-ruwjxb technique, with 3-D reconstructions. MRA of the [...] Correlate clinically. No evidence for a major [place] proximal branch vessel occlusion. Intracranial atherosclerosis results in multifocal mild stenosis of the bilateral M2 segments of the middle cerebral arteries. 60% stenosis of the proximal left internal carotid artery by NASCET criteria No evidence of hemodynamically significant stenosis in the right cervical carotid or vertebral arteries by NASCET criteria. Signed: Ozzie Avila MDReport Verified Date/Time: 09/03/2018 00:45:16 Reading Location: [address] Transitional Reading Room MR, BRAIN, [id number] 00:45:00FINAL REPORT CLINICAL HISTORY: r/o ALS TECHNIQUE: MRI of the brain utilizing axial T2, FLAIR, GRE, DWI; sagittal and coronal T1-weighted images as well as postcontrast T1 weighted images. MRA of the head utilizing 3- D jeup-kp-hqmaoy technique, with 3-D reconstructions. MRA of the neck utilizing 2-D and 3-D crkt-mo-auslli technique, with 3-D reconstructions. COMPARISON: None MRI [...] Correlate clinically. No evidence for a major [place] proximal branch vessel occlusion. Intracranial atherosclerosis results in multifocal mild stenosis of the bilateral M2 segments of the middle cerebral arteries. 60% stenosis of the proximal left internal carotid artery by NASCET criteria No evidence of hemodynamically significant stenosis in the right cervical carotid or vertebral arteries by NASCET criteria. Signed: Ozzie Avila MDReport Verified Date/Time: 2017 00:45:16 Reading Location: [address] Transitional Reading Room MR, MRA, BRAIN, WITHOUT [id number] 00:45:00FINAL REPORT CLINICAL HISTORY: r/o ALS TECHNIQUE: MRI of the brain utilizing axial T2, FLAIR, GRE, DWI; sagittal and coronal T1-weighted images as well as postcontrast T1 weighted images. MRA of the head utilizing 3-D depc-ar-jvjzwj technique, with 3-D reconstructions. MRA of the [...] Correlate clinically. No evidence for a major [place] proximal branch vessel occlusion. Intracranial atherosclerosis results in multifocal mild stenosis of the bilateral M2 segments of the middle cerebral arteries. 60% stenosis of the proximal left internal carotid artery by NASCET criteria No evidence of hemodynamically significant stenosis in the right cervical carotid or vertebral arteries by NASCET criteria. Signed: [facility] Verified Date/Time: 09/03/2018 00:45:16 Reading Location: [address] Transitional Reading Room POCT-GLUCOSE [id number] 00:34:00 Test Item Value Reference Range Comments POC-GLUCOSE METER (BEAKER) 187 mg/dL 70-110 TESTED AT [address] (test ltpb=9970) [facility] [address] POCT-GLUCOSE [id number] 16:17:00 Test Item Value Reference Range Comments POC-GLUCOSE METER (BEAKER) 180 mg/dL 70-110 TESTED AT [address] (test cmhe=0698) [facility] [address] BASIC METABOLIC [id number] 14:11:00 Test Item Value Reference Range Comments SODIUM (BEAKER) (test 139 meq/L 136-145 tukh=374) POTASSIUM (BEAKER) (test 3.8 meq/L 3.5-5.1 Specimen slightly jfoh=973) hemolyzed CHLORIDE (BEAKER) (test 102 meq/L 98-107 wtht=230) CO2 (BEAKER) (test 24 meq/L 22-29 jcve=535) BLOOD UREA NITROGEN 16 mg/dL 7-21 (BEAKER) (test pcco=816) CREATININE (BEAKER) (test 0.82 mg/dL 0.57-1.25 Specimen slightly rhuq=777) hemolyzed GLUCOSE RANDOM (BEAKER) 187 mg/dL 70-105 (test vntq=063) CALCIUM (BEAKER) (test 9.4 mg/dL 8.4-10.2 vpvt=698) EGFR (BEAKER) (test 94 mL/min/1.73 sq m ESTIMATED GFR IS NOT ibgd=9738) ACCURATE CREATININE CLEARANCE IN PREDICTING GLOMERULAR FILTRATION RATE. ESTIMATED GFR IS NOT APPLICABLE FOR DIALYSIS PATIENTS. MRSA [id number] 13:43:00 Test Item Value Reference Range Comments CULTURE (BEAKER) (test METHICILLIN RESISTANT 1+ Methicillin iehc=7889) STAPHYLOCOCCUS AUREUS resistant Staphylococcus aureus Clindamycin (test code=10) Erythromycin (test code=4) Linezolid (test code=40) Oxacillin (test code=14) Rifampin (test code=43) Tetracycline (test code=2) Trimethoprim + Sulfamethoxazole (test code=47) Vancomycin (test code=13) SPUTUM CULTURE + GRAM [id number] 13:36:00 Test Item Value Reference Range Comments CULTURE (BEAKER) (test METHICILLIN RESISTANT <1+ Methicillin kplm=4499) STAPHYLOCOCCUS AUREUS resistant Staphylococcus aureus Clindamycin (test code=10) Erythromycin (test code=4) Linezolid (test code=40) Nitrofurantoin (test code=23) Oxacillin (test code=14) Rifampin (test code=43) Tetracycline (test code=2) Trimethoprim + Sulfamethoxazole (test code=47) Vancomycin (test code=13) GRAM STAIN RESULT 4+ WBCs (BEAKER) (test ccvb=6947) GRAM STAIN RESULT 0-5 epithelial cells (BEAKER) (test joer=986739) GRAM STAIN RESULT 1+ gram positive cocci (BEAKER) (test in pairs and clusters rhyx=674605) GRAM STAIN RESULT 1+ yeast (BEAKER) (test turu=940309) <1+ Normal respiratory davie presentPOCT-GLUCOSE [id number] 10:05:00 Test Item Value Reference Range Comments POC-GLUCOSE METER (BEAKER) 210 mg/dL 70-110 TESTED AT [facility] [address] [facility] (test ydbj=0669) [facility] [address] BRONCHIAL CULTURE + GRAM [id number] 06:57:00 Test Item Value Reference Range Comments CULTURE (BEAKER) (test No growth ixaj=3072) GRAM STAIN RESULT No WBCs This is an appended report. (BEAKER) (test These results have been nefb=3808) appended to a previously preliminary verified report. GRAM STAIN RESULT No organisms seen This is an appended report. (BEAKER) (test These results have been sseh=21373) appended to a previously preliminary verified report. BLOOD GAS, [id number] 05:30:00 Test Item Value Reference Range Comments PH ARTERIAL (BEAKER) (test jgee=924) 7.43 7.35-7.45 PCO2 ARTERIAL (BEAKER) (test mmkg=704) 39 mmHg 35-45 PO2 ARTERIAL (BEAKER) (test shac=391) 86 mmHg 80-90 O2 SATURATION ARTERIAL (BEAKER) (test xexe=805) 96.7 % 96.0-97.0 HCO3 ARTERIAL (BEAKER) (test yocu=739) 25 mmol/L 21-29 BASE EXCESS ARTERIAL (BEAKER) (test gnbg=160) 0.8 mmol/L -2.0-3.0 PATIENT TEMPERATURE (BEAKER) (test byzu=0694) 37.0 C FIO2 (BEAKER) (test ijfw=3409) 50.0 % RAD, CHEST, 1 VIEW, NON [id number] 04:24:00Reason for exam:->ETT placementShould this be performed [...] Avila Verified Date/Time: 09/02/2018 04:24:02 Reading Location: [address] Transitional Reading Room [id number] 04:04:00 Test Item Value Reference Range Comments MAGNESIUM (BEAKER) (test gpma=363) 1.9 mg/dL 1.6-2.6 BASIC METABOLIC [id number] 04:04:00 Test Item Value Reference Range Comments SODIUM (BEAKER) (test 139 meq/L 136-145 xgoq=326) POTASSIUM (BEAKER) (test 3.7 meq/L 3.5-5.1 htkw=760) CHLORIDE (BEAKER) (test 108 meq/L 98-107 etho=191) CO2 (BEAKER) (test 24 meq/L 22-29 rjyh=053) BLOOD UREA NITROGEN 20 mg/dL 7-21 (BEAKER) (test xfso=920) CREATININE (BEAKER) (test 0.77 mg/dL 0.57-1.25 vhce=010) GLUCOSE RANDOM (BEAKER) 176 mg/dL 70-105 (test yzka=068) CALCIUM (BEAKER) (test 8.6 mg/dL 8.4-10.2 dsri=988) EGFR (BEAKER) (test 101 mL/min/1.73 sq m ESTIMATED GFR IS NOT edfr=1203) ACCURATE CREATININE CLEARANCE IN PREDICTING GLOMERULAR FILTRATION RATE. ESTIMATED GFR IS NOT APPLICABLE FOR DIALYSIS PATIENTS. CBC W/PLT COUNT & AUTO [id number] 03:31:00 Test Item Value Reference Range Comments WHITE BLOOD CELL COUNT (BEAKER) (test hhew=406) 8.8 K/ L 3.5-10.5 RED BLOOD CELL COUNT (BEAKER) (test ndmf=233) 3.74 M/ L 4.63-6.08 HEMOGLOBIN (BEAKER) (test dikj=382) 11.3 GM/DL 13.7-17.5 HEMATOCRIT (BEAKER) (test ilds=852) 34.2 % 40.1-51.0 MEAN CORPUSCULAR VOLUME (BEAKER) (test foln=281) 91.4 fL 79.0-92.2 MEAN CORPUSCULAR HEMOGLOBIN (BEAKER) (test 30.2 pg 25.7-32.2 xxqd=519) MEAN CORPUSCULAR HEMOGLOBIN CONC (BEAKER) (test 33.0 GM/DL 32.3-36.5 ynza=997) RED CELL DISTRIBUTION WIDTH (BEAKER) (test 13.5 % 11.6-14.4 fsqo=288) PLATELET COUNT (BEAKER) (test sjwk=682) 210 K/CU MM 150-450 MEAN PLATELET VOLUME (BEAKER) (test wbkc=845) 9.3 fL 9.4-12.4 NUCLEATED RED BLOOD CELLS (BEAKER) (test 0 /100 WBC 0-0 hnqc=529) NEUTROPHILS RELATIVE PERCENT (BEAKER) (test 74 % bqfm=301) LYMPHOCYTES RELATIVE PERCENT (BEAKER) (test 18 % ewts=648) MONOCYTES RELATIVE PERCENT (BEAKER) (test 6 % xdtc=981) EOSINOPHILS RELATIVE PERCENT (BEAKER) (test 1 % gmzr=233) BASOPHILS RELATIVE PERCENT (BEAKER) (test 0 % hbrx=460) NEUTROPHILS ABSOLUTE COUNT (BEAKER) (test 6.56 K/ L 1.78-5.38 uiiu=568) LYMPHOCYTES ABSOLUTE COUNT (BEAKER) (test 1.57 K/ L 1.32-3.57 bfow=957) MONOCYTES ABSOLUTE COUNT (BEAKER) (test 0.53 K/ L 0.30-0.82 nlwk=949) EOSINOPHILS ABSOLUTE COUNT (BEAKER) (test 0.10 K/ L 0.04-0.54 jscu=515) BASOPHILS ABSOLUTE COUNT (BEAKER) (test 0.02 K/ L 0.01-0.08 ykaf=374) IMMATURE GRANULOCYTES-RELATIVE PERCENT (BEAKER) 1 % 0-1 (test inxa=2727) POCT-GLUCOSE [id number] 22:19:00 Test Item Value Reference Range Comments POC-GLUCOSE METER (BEAKER) 182 mg/dL 70-110 TESTED AT [address] (test lxfd=8408) [place] [id number] VANCOMYCIN LEVEL, [id number] 21:04:00 Test Item Value Reference Range Comments VANCOMYCIN TROUGH ([facility]) (test ogjn=518) 14.4 ug/mL 10.0-20.0 [id number] 15:16:00 Test Item Value Reference Range Comments ACTIVATED CLOTTING TIME 142 sec TESTED AT [address] ([facility]) (test xlqg=193) [place] [address] [id number] 13:53:00 Test Item Value Reference Range Comments ACTIVATED CLOTTING TIME 164 sec TESTED AT [address] ([facility]) (test zqbg=023) [place] [address] POCT-GLUCOSE [id number] 12:28:00 Test Item Value Reference Range Comments POC-GLUCOSE METER ([facility]) 217 mg/dL 70-110 TESTED AT [address] (test zkhh=9388) [place] [address] [id number] 12:10:00 Test Item Value Reference Range Comments ACTIVATED CLOTTING TIME 296 sec TESTED AT [address] ([facility]) (test obss=702) [place] [address] TROPONIN [id number] 09:22:00 Test Item Value Reference Range Comments TROPONIN I ([facility]) (test twpk=501) 3.77 ng/mL 0.00-0.03 Troponin I (TnI) levels [...] failure, acidosis, acute neurological disease, and persistent tachyarrhythmia.[id number] 05:27:00 Test Item Value Reference Range Comments PARTIAL THROMBOPLASTIN TIME (BEAKER) (test 76.0 seconds 22.5-36.0 olru=667) [id number] 05:22:00 Test Item Value Reference Range Comments MAGNESIUM ([facility]) (test qivq=139) 2.1 mg/dL 1.6-2.6 BASIC METABOLIC [id number] 05:22:00 Test Item Value Reference Range Comments SODIUM (BEAKER) (test 138 meq/L 136-145 lhwb=348) POTASSIUM (BEAKER) (test 4.0 meq/L 3.5-5.1 iwzt=389) CHLORIDE (BEAKER) (test 108 meq/L 98-107 zycx=641) CO2 (BEAKER) (test 21 meq/L 22-29 vaea=191) BLOOD UREA NITROGEN 25 mg/dL 7-21 (BEAKER) (test zhxh=318) CREATININE (BEAKER) (test 0.96 mg/dL 0.57-1.25 dtmm=524) GLUCOSE RANDOM (BEAKER) 216 mg/dL 70-105 (test stsq=328) CALCIUM (BEAKER) (test 8.4 mg/dL 8.4-10.2 nufo=345) EGFR (BEAKER) (test 79 mL/min/1.73 sq m ESTIMATED GFR IS NOT subs=1637) ACCURATE CREATININE CLEARANCE IN PREDICTING GLOMERULAR FILTRATION RATE. ESTIMATED GFR IS NOT APPLICABLE FOR DIALYSIS PATIENTS. RAD, CHEST, 1 VIEW, NON [id number] 04:50:00Reason for exam:->respiratory failureShould this be performed [...] MDReport Verified Date/Time: 09/01/2018 04:50:17 Reading Location: [address] Reading Room Electronically signed by: BLAIR DANG M.D. on 04:50 AMCBC (HEMOGRAM ONLY)2018-09-01 04:39:00 Test Item Value Reference Range Comments WHITE BLOOD CELL COUNT (BEAKER) (test lawc=340) 9.0 K/ L 3.5-10.5 RED BLOOD CELL COUNT (BEAKER) (test qevh=394) 4.10 M/ L 4.63-6.08 HEMOGLOBIN (BEAKER) (test hrrt=371) 12.3 GM/DL 13.7-17.5 HEMATOCRIT (BEAKER) (test ykgd=576) 37.0 % 40.1-51.0 MEAN CORPUSCULAR VOLUME (BEAKER) (test epqb=711) 90.2 fL 79.0-92.2 MEAN CORPUSCULAR HEMOGLOBIN (BEAKER) (test 30.0 pg 25.7-32.2 iage=796) MEAN CORPUSCULAR HEMOGLOBIN CONC (BEAKER) (test 33.2 GM/DL 32.3-36.5 fjnk=952) RED CELL DISTRIBUTION WIDTH (BEAKER) (test 13.7 % 11.6-14.4 qnew=749) PLATELET COUNT (BEAKER) (test hdev=831) 207 K/CU MM 150-450 MEAN PLATELET VOLUME (BEAKER) (test thcs=523) 9.6 fL 9.4-12.4 NUCLEATED RED BLOOD CELLS (BEAKER) (test 0 /100 WBC 0-0 htpo=235) TROPONIN [id number] 00:59:00 Test Item Value Reference Range Comments TROPONIN I (BEAKER) (test ejou=264) 5.45 ng/mL 0.00-0.03 Troponin I (TnI) levels [...] acidosis, acute neurological disease, and persistent tachyarrhythmia.POCT-GLUCOSE [id number] 22:43:00 Test Item Value Reference Range Comments POC-GLUCOSE METER (BEAKER) 177 mg/dL 70-110 TESTED AT [facility] [address] [facility] (test tjqw=3655) [facility] [address] TROPONIN [id number] 18:36:00 Test Item Value Reference Range Comments TROPONIN I (BEAKER) (test aguz=685) 6.48 ng/mL 0.00-0.03 Troponin I (TnI) levels [...] failure, acidosis, acute neurological disease, and persistent tachyarrhythmia.[id number] 18:35:00 Test Item Value Reference Range Comments PARTIAL THROMBOPLASTIN TIME (BEAKER) (test 66.0 seconds 22.5-36.0 gfro=294) POCT-GLUCOSE [id number] 16:40:00 Test Item Value Reference Range Comments POC-GLUCOSE METER (BEAKER) 161 mg/dL 70-110 TESTED AT [address] (test fntg=5461) [place] [address] POCT-GLUCOSE [id number] 15:13:00 Test Item Value Reference Range Comments POC-GLUCOSE METER (BEAKER) 149 mg/dL 70-110 TESTED AT [address] (test cvwb=5762) [place] [address] BODY FLUID CELL COUNT WITH [id number] 14:28:00 Test Item Value Reference Range Comments APPEARANCE FLUID (BEAKER) (test oola=459) Hazy Clear COLOR FLUID (BEAKER) (test zjgy=008) [place] Colorless, Straw RBC FLUID (BEAKER) (test elua=832) 280 /cu mm <=1 ADJUSTED WBC FLUID (BEAKER) (test mrlm=6606) 139 /cu mm <=5 LINING CELLS (BEAKER) (test dfgd=4536) 1 /cu mm <=1 NEUTROPHILS FLUID (BEAKER) (test yewg=3626) 77 % LYMPHS FLUID (BEAKER) (test yfie=724) 5 % MONO/MACROPHAGE FLUID (BEAKER) (test kufq=695) 18 % EOSINOPHILS FLUID (BEAKER) (test jnuh=630) 0 % BASO FLUID (BEAKER) (test yiym=249) 0 % CONTAINER BODY FLUID (BEAKER) (test cvro=7595) EDTA Tube POCT-GLUCOSE [id number] 14:17:00 Test Item Value Reference Range Comments POC-GLUCOSE METER (BEAKER) 121 mg/dL 70-110 TESTED AT [address] (test qcua=2011) [place] [id number] POCT-GLUCOSE [id number] 13:05:00 Test Item Value Reference Range Comments POC-GLUCOSE METER (BEAKER) 176 mg/dL 70-110 TESTED AT [address] (test vkjo=8596) [place] [id number] VANCOMYCIN LEVEL, [id number] 13:01:00 Test Item Value Reference Range Comments VANCOMYCIN RANDOM (BEAKER) (test efke=810) 7.8 ug/mL Reference Range: No NormalsPOCT-GLUCOSE [id number] 12:08:00 Test Item Value Reference Range Comments POC-GLUCOSE METER (BEAKER) 168 mg/dL 70-110 TESTED AT [address] (test nnfl=1744) [place] [address] POCT-GLUCOSE [id number] 10:54:00 Test Item Value Reference Range Comments POC-GLUCOSE METER (BEAKER) 159 mg/dL 70-110 TESTED AT [address] (test kozj=9282) [place] [address] [id number] 10:01:00 Test Item Value Reference Range Comments PARTIAL THROMBOPLASTIN TIME (AKER) (test 44.9 seconds 22.5-36.0 nsyi=582) POCT-GLUCOSE [id number] 09:31:00 Test Item Value Reference Range Comments POC-GLUCOSE METER (BEAKER) 98 mg/dL 70-110 TESTED AT [address] (test cwkb=4757) [place] [address] POCT-GLUCOSE [id number] 08:31:00 Test Item Value Reference Range Comments POC-GLUCOSE METER (BEAKER) 118 mg/dL 70-110 TESTED AT [address] (test jeud=3145) [place] [address] TROPONIN [id number] 08:28:00 Test Item Value Reference Range Comments TROPONIN I (BEAKER) (test stje=123) 9.00 ng/mL 0.00-0.03 Troponin I (TnI) levels [...] acidosis, acute neurological disease, and persistent tachyarrhythmia.POCT-GLUCOSE [id number] 07:13:00 Test Item Value Reference Range Comments POC-GLUCOSE METER (BEAKER) 120 mg/dL 70-110 TESTED AT [facility] [address] [facility] (test agbk=6755) [facility] [address] POCT-GLUCOSE [id number] 06:10:00 Test Item Value Reference Range Comments POC-GLUCOSE METER (BEAKER) 152 mg/dL 70-110 TESTED AT [address] (test ndqp=8989) [facility] [address] POCT-GLUCOSE [id number] 05:07:00 Test Item Value Reference Range Comments POC-GLUCOSE METER (BEAKER) 156 mg/dL 70-110 TESTED AT [address] (test zdmw=4253) [facility] [address] [id number] 04:56:00 Test Item Value Reference Range Comments MAGNESIUM (BEAKER) (test sver=184) 1.9 mg/dL 1.6-2.6 BASIC METABOLIC [id number] 04:56:00 Test Item Value Reference Range Comments SODIUM (BEAKER) (test 144 meq/L 136-145 pmrg=422) POTASSIUM (BEAKER) (test 3.7 meq/L 3.5-5.1 owho=099) CHLORIDE (BEAKER) (test 109 meq/L 98-107 mzfb=061) CO2 (BEAKER) (test 25 meq/L 22-29 gylq=835) BLOOD UREA NITROGEN 32 mg/dL 7-21 (BEAKER) (test uabe=150) CREATININE (BEAKER) (test 1.12 mg/dL 0.57-1.25 idpq=709) GLUCOSE RANDOM (BEAKER) 149 mg/dL 70-105 (test llat=941) CALCIUM (BEAKER) (test 8.7 mg/dL 8.4-10.2 bqxp=159) EGFR (BEAKER) (test 66 mL/min/1.73 sq m ESTIMATED GFR IS NOT szjn=6499) ACCURATE CREATININE CLEARANCE IN PREDICTING GLOMERULAR FILTRATION RATE. ESTIMATED GFR IS NOT APPLICABLE FOR DIALYSIS PATIENTS. CBC (HEMOGRAM ONLY)2018-08-31 04:33:00 Test Item Value Reference Range Comments WHITE BLOOD CELL COUNT (BEAKER) (test jrzw=379) 11.6 K/ L 3.5-10.5 RED BLOOD CELL COUNT (BEAKER) (test wxqm=134) 4.00 M/ L 4.63-6.08 HEMOGLOBIN (BEAKER) (test oigs=240) 12.0 GM/DL 13.7-17.5 HEMATOCRIT (BEAKER) (test bpwl=650) 35.4 % 40.1-51.0 MEAN CORPUSCULAR VOLUME (BEAKER) (test pnbh=012) 88.5 fL 79.0-92.2 MEAN CORPUSCULAR HEMOGLOBIN (BEAKER) (test 30.0 pg 25.7-32.2 drgp=218) MEAN CORPUSCULAR HEMOGLOBIN CONC (BEAKER) (test 33.9 GM/DL 32.3-36.5 xfjh=712) RED CELL DISTRIBUTION WIDTH (BEAKER) (test 14.0 % 11.6-14.4 mapz=809) PLATELET COUNT (BEAKER) (test rgft=182) 216 K/CU MM 150-450 MEAN PLATELET VOLUME (BEAKER) (test bxyg=889) 9.6 fL 9.4-12.4 NUCLEATED RED BLOOD CELLS (BEAKER) (test 0 /100 WBC 0-0 jnnb=476) BLOOD GAS, [id number] 04:21:00 Test Item Value Reference Range Comments PH ARTERIAL (BEAKER) (test epox=492) 7.45 7.35-7.45 PCO2 ARTERIAL (BEAKER) (test gljh=348) 38 mmHg 35-45 PO2 ARTERIAL (BEAKER) (test zilw=981) 75 mmHg 80-90 O2 SATURATION ARTERIAL (BEAKER) (test snwv=198) 95.6 % 96.0-97.0 HCO3 ARTERIAL (BEAKER) (test zqoz=791) 26 mmol/L 21-29 BASE EXCESS ARTERIAL (BEAKER) (test lbcc=686) 1.6 mmol/L -2.0-3.0 PATIENT TEMPERATURE (BEAKER) (test rzaz=0806) 36.9 C FIO2 (BEAKER) (test ujsw=5274) 60.0 % POCT-GLUCOSE [id number] 04:10:00 Test Item Value Reference Range Comments POC-GLUCOSE METER (BEAKER) 142 mg/dL 70-110 TESTED AT [facility] [address] [facility] (test peav=7235) [facility] [address] POCT-GLUCOSE [id number] 03:03:00 Test Item Value Reference Range Comments POC-GLUCOSE METER (BEAKER) 129 mg/dL 70-110 TESTED AT [address] (test tlwn=5010) [facility] [address] [id number] 02:39:00 Test Item Value Reference Range Comments PARTIAL THROMBOPLASTIN TIME (BEAKER) (test 61.7 seconds 22.5-36.0 lecw=874) POCT-GLUCOSE [id number] 02:05:00 Test Item Value Reference Range Comments POC-GLUCOSE METER (BEAKER) 108 mg/dL 70-110 TESTED AT [address] (test usqv=8958) [place] [id number] POCT-GLUCOSE [id number] 01:28:00 Test Item Value Reference Range Comments POC-GLUCOSE METER (BEAKER) 93 mg/dL 70-110 TESTED AT [address] (test lczq=1425) [place] [id number] TROPONIN [id number] 01:04:00 Test Item Value Reference Range Comments TROPONIN I (BEAKER) (test vznu=175) 11.40 ng/mL 0.00-0.03 Troponin I (TnI) levels [...] acute neurological disease, and persistent tachyarrhythmia.BLOOD GAS, [id number] 00:14:00 Test Item Value Reference Range Comments PH ARTERIAL (BEAKER) (test roil=066) 7.50 7.35-7.45 PCO2 ARTERIAL (BEAKER) (test ikhw=552) 36 mmHg 35-45 PO2 ARTERIAL (BEAKER) (test jjjm=269) 56 mmHg 80-90 O2 SATURATION ARTERIAL (BEAKER) (test pgtz=415) 92.1 % 96.0-97.0 HCO3 ARTERIAL (BEAKER) (test syju=009) 27 mmol/L 21-29 BASE EXCESS ARTERIAL (BEAKER) (test qklw=332) 4.0 mmol/L -2.0-3.0 PATIENT TEMPERATURE (BEAKER) (test ipnf=2265) 36.7 C FIO2 (BEAKER) (test gvlu=6852) 40.0 % POCT-GLUCOSE [id number] 00:10:00 Test Item Value Reference Range Comments POC-GLUCOSE METER (BEAKER) 124 mg/dL 70-110 TESTED AT [address] (test nonp=5531) [place] [id number] POCT-GLUCOSE [id number] 23:27:00 Test Item Value Reference Range Comments POC-GLUCOSE METER (BEAKER) 111 mg/dL 70-110 TESTED AT [address] (test ihml=5348) [place] [id number] POCT-GLUCOSE [id number] 22:06:00 Test Item Value Reference Range Comments POC-GLUCOSE METER (BEAKER) 131 mg/dL 70-110 TESTED AT [address] (test occm=4387) [place] [id number] POCT-GLUCOSE [id number] 21:05:00 Test Item Value Reference Range Comments POC-GLUCOSE METER (BEAKER) 145 mg/dL 70-110 TESTED AT [address] (test hvgj=7073) [place] [id number] POCT-GLUCOSE [id number] 20:18:00 Test Item Value Reference Range Comments POC-GLUCOSE METER (BEAKER) 154 mg/dL 70-110 TESTED AT [address] (test updd=2093) [place] [address] [id number] 19:55:00 Test Item Value Reference Range Comments PARTIAL THROMBOPLASTIN TIME (BEAKER) (test 50.2 seconds 22.5-36.0 hibi=383) POCT-GLUCOSE [id number] 19:07:00 Test Item Value Reference Range Comments POC-GLUCOSE METER (BEAKER) 182 mg/dL 70-110 TESTED AT [address] (test nsuz=4133) [place] [id number] POCT-GLUCOSE [id number] 18:03:00 Test Item Value Reference Range Comments POC-GLUCOSE METER (BEAKER) 201 mg/dL 70-110 TESTED AT [address] (test huyv=9666) [facility] [address] PUL PERF IMAGING, PARTIC, [id number] 17:23:00FINAL REPORT PROCEDURE: V/Q LUNG SCAN CPT CODE: 19994 INDICATION: Chest pain PA suspected high pretest [...] MDReport Verified Date/Time: 08/30/2018 17:23:41 Reading Location: [address] Reading Room POCT-GLUCOSE [id number] 17:03:00 Test Item Value Reference Range Comments POC-GLUCOSE METER (BEAKER) 230 mg/dL 70-110 TESTED AT [address] (test jyoa=6699) [facility] [address] POCT-GLUCOSE [id number] 16:13:00 Test Item Value Reference Range Comments POC-GLUCOSE METER (BEAKER) 255 mg/dL 70-110 TESTED AT [address] (test hgiu=1741) [place] [id number] TROPONIN [id number] 16:01:00 Test Item Value Reference Range Comments TROPONIN I (BEAKER) (test sbeq=560) 14.68 ng/mL 0.00-0.03 Troponin I (TnI) levels [...] neurological disease, and persistent tachyarrhythmia.CT, CHEST, WITHOUT [id number] 15 :10:00FINAL REPORT HISTORY: Acute resp illness, [...] MDReport Verified Date/Time: 08/30/2018 15:10:22 Reading [facility] - [place] [address] Electronically signed by: BRYON SAINZ M.D. on08/30/2018 03:10 PMPOCT-GLUCOSE [id number] 14:57:00 Test Item Value Reference Range Comments POC-GLUCOSE METER (BEAKER) 273 mg/dL 70-110 TESTED AT [facility] [address] [facility] (test mlum=1690) [facility] [address] POCT-GLUCOSE [id number] 13:10:00 Test Item Value Reference Range Comments POC-GLUCOSE METER (BEAKER) 232 mg/dL 70-110 TESTED AT [address] (test ffki=0253) [facility] [address] RAD, ABDOMEN/KUB, 1 VIEW [id number] 12:44:00Reason for exam:->abdominal distensionFINAL REPORT Two frontal images abdomen and pelvis. NG tube loops in the proximal stomach. There is a paucity of visible small bowel gas but no grossly apparent bowel obstruction. No evidence of free intraperitoneal air. Degenerative spine changes are noted. No concerning calcification. Signed: Mark Parsons Verified Date/Time: 08/30/2018 12: 44:32 Reading Location: [facility] Reading Room [id number] 12:08:00 Test Item Value Reference Range Comments PARTIAL THROMBOPLASTIN TIME (BEAKER) (test 45.2 seconds 22.5-36.0 eqjg=034) POCT-GLUCOSE [id number] 12:05:00 Test Item Value Reference Range Comments POC-GLUCOSE METER (BEAKER) 238 mg/dL 70-110 TESTED AT [address] (test rcte=2499) [facility] [address] RAD, CHEST, 1 VIEW, NON [id number] 11:56:00Reason for exam:->ET tube manipulationShould this be [...] Verified Date/Time: 08/30/2018 11: 56:52 Reading Location: [facility] Reading Room POCT- GLUCOSE [id number] 11:05:00 Test Item Value Reference Range Comments POC-GLUCOSE METER (BEAKER) 275 mg/dL 70-110 TESTED AT [address] (test gres=2956) [facility] [address] LACTIC ACID, ARTERIAL, WHOLE [id number] 09:50:00 Test Item Value Reference Range Comments LACTATE BLOOD ARTERIAL (2) (BEAKER) (test 1.6 mmol/L 0.5-2.2 qoup=7043) Effective 03/02/2016: Units/Reference Range ChangeNew: 0.5-2.2 mmol/L Previous: 5 -20 mg/dLPOCT-GLUCOSE [id number] 09:44:00 Test Item Value Reference Range Comments POC-GLUCOSE METER (BEAKER) 297 mg/dL 70-110 TESTED AT [address] (test ynmx=6553) [place] [address] TROPONIN [id number] 09:34:00 Test Item Value Reference Range Comments TROPONIN I (BEAKER) (test xzen=860) 19.27 ng/mL 0.00-0.03 Troponin I (TnI) levels [...] acute neurological disease, and persistent tachyarrhythmia.OXYGEN SATURATION, [id number] 08 :54:00 Test Item Value Reference Range Comments O2 SATURATION (MEASURED) (AKER) (test phck=2480) 74.7 % POCT-GLUCOSE [id number] 08:33:00 Test Item Value Reference Range Comments POC-GLUCOSE METER (BEAKER) 345 mg/dL 70-110 TESTED AT [address] (test nehr=7173) [facility] [address] POCT-GLUCOSE [id number] 07:42:00 Test Item Value Reference Range Comments POC-GLUCOSE METER (BEAKER) 305 mg/dL 70-110 Notified MILLA CARPENTER/TESTED AT [facility] (test luln=0280) [address] [place] [address] POCT-GLUCOSE [id number] 07:42:00 Test Item Value Reference Range Comments POC-GLUCOSE METER (BEAKER) 309 mg/dL 70-110 TESTED AT [place] [address] [address] (test vheh=4931) [facility] [address] URINALYSIS W/ REFLEX URINE [id number] 07:35:00 Test Item Value Reference Range Comments COLOR (BEAKER) (test gxoa=876) Light Yellow CLARITY (BEAKER) (test cwht=832) Clear SPECIFIC GRAVITY UA (BEAKER) (test weut=741) 1.017 1.001-1.035 PH UA (BEAKER) (test fdts=886) 5.0 5.0-8.0 PROTEIN UA (BEAKER) (test maaz=019) Negative Negative GLUCOSE UA (BEAKER) (test puxl=548) >1000 mg/dL Negative KETONES UA (BEAKER) (test ihuj=442) 10 mg/dL Negative BILIRUBIN UA (BEAKER) (test rurl=710) Negative Negative BLOOD UA (BEAKER) (test nfnn=997) Negative Negative NITRITE UA (BEAKER) (test mygv=356) Negative Negative LEUKOCYTE ESTERASE UA (BEAKER) (test teyw=669) Negative Negative UROBILINOGEN UA (BEAKER) (test xgjx=229) 0.2 mg/dL 0.2-1.0 RBC UA (BEAKER) (test oyme=688) 3 /HPF WBC UA (BEAKER) (test bsvc=345) 2 /HPF MUCUS (BEAKER) (test mlfr=9057) Rare AMORPHOUS CRYSTALS (BEAKER) (test gzbh=3623) Rare SOURCE(BEAKER) (test yfma=6264) [id number] 05:48:00 Test Item Value Reference Range Comments PROCALCITONIN (BEAKER) (test vlgs=3282) 0.26 ng/mL <0.05 SEPSIS RISK (ng/mL)Low: 0.05-0.50Intermediate: 0.51-2.00High: & gt;=2.01LACTIC ACID, ARTERIAL, WHOLE [id number] 04:44:00 Test Item Value Reference Range Comments LACTATE BLOOD ARTERIAL (2) 1.7 mmol/L 0.5-2.2 Specimen slightly hemolyzed (BEAKER) (test gvng=9361) Effective 03/02/2016: Units/Reference Range ChangeNew: 0.5-2.2 mmol/L Previous: 5 -20 mg/dLBLOOD GAS, [id number] 04:42:00 Test Item Value Reference Range Comments PH ARTERIAL (BEAKER) (test luan=887) 7.40 7.35-7.45 PCO2 ARTERIAL (BEAKER) (test hngm=215) 35 mmHg 35-45 PO2 ARTERIAL (BEAKER) (test vakv=690) 101 mmHg 80-90 O2 SATURATION ARTERIAL (BEAKER) (test uufd=595) 97.7 % 96.0-97.0 HCO3 ARTERIAL (BEAKER) (test znbe=343) 21 mmol/L 21-29 BASE EXCESS ARTERIAL (BEAKER) (test aoso=453) -3.0 mmol/L -2.0-3.0 PATIENT TEMPERATURE (BEAKER) (test sfgl=2627) 36.9 C FIO2 (BEAKER) (test jmev=2323) 50.0 % [id number] 04:40:00 Test Item Value Reference Range Comments POTASSIUM (BEAKER) (test qvez=939) 4.3 meq/L 3.5-5.1 [id number] 04:40:00 Test Item Value Reference Range Comments GLUCOSE RANDOM (BEAKER) (test jlux=799) 365 mg/dL 70-105 POCT-GLUCOSE [id number] 04:37:00 Test Item Value Reference Range Comments POC-GLUCOSE METER (BEAKER) 370 mg/dL 70-110 TESTED AT [facility] [address] [place] [address] (test obdp=7886) [facility] [address] [id number] 04:34:00 Test Item Value Reference Range Comments PARTIAL THROMBOPLASTIN TIME (BEAKER) (test 30.2 seconds 22.5-36.0 zuhl=249) Prior to initiating heparinPLATELET [id number] 04:15:00 Test Item Value Reference Range Comments PLATELET COUNT (BEAKER) (test vrkw=693) 284 K/CU MM 150-450 Baseline and daily starting prior to initiation of heparin infusionCB ( HEMOGRAM ONLY)[id number] 04:15:00 Test Item Value Reference Range Comments WHITE BLOOD CELL COUNT (BEAKER) (test fmvl=139) 16.6 K/ L 3.5-10.5 RED BLOOD CELL COUNT (BEAKER) (test rhtn=248) 4.25 M/ L 4.63-6.08 HEMOGLOBIN (BEAKER) (test ojoy=742) 13.1 GM/DL 13.7-17.5 HEMATOCRIT (BEAKER) (test vcds=001) 37.6 % 40.1-51.0 MEAN CORPUSCULAR VOLUME (BEAKER) (test fjuz=345) 88.5 fL 79.0-92.2 MEAN CORPUSCULAR HEMOGLOBIN (BEAKER) (test 30.8 pg 25.7-32.2 ipsg=042) MEAN CORPUSCULAR HEMOGLOBIN CONC (BEAKER) (test 34.8 GM/DL 32.3-36.5 rlli=848) RED CELL DISTRIBUTION WIDTH (BEAKER) (test 13.6 % 11.6-14.4 xkfq=127) PLATELET COUNT (BEAKER) (test gpjz=946) 284 K/CU MM 150-450 MEAN PLATELET VOLUME (BEAKER) (test tzyt=083) 9.6 fL 9.4-12.4 NUCLEATED RED BLOOD CELLS (BEAKER) (test 0 /100 WBC 0-0 nffg=182) TSH/FREE T4 IF [id number] 03:00:00 Test Item Value Reference Range Comments THYROID STIMULATING HORMONE (BEAKER) (test 0.92 uIU/mL 0.35-4.94 adnd=423) TROPONIN [id number] 02:51:00 Test Item Value Reference Range Comments TROPONIN I (BEAKER) (test qcaw=795) 24.37 ng/mL 0.00-0.03 Troponin I (TnI) levels [...] Range Comments B-TYPE NATRIURETIC PEPTIDE (BEAKER) (test uitn=406) 63 pg/mL 0-100 [id number] 02:44:00 Test Item Value Reference Range Comments PARTIAL THROMBOPLASTIN TIME (BEAKER) (test 28.2 seconds 22.5-36.0 emxw=881) Prior to initiating heparinCBC W/PLT COUNT & AUTO [id number] 02: 41:00 Test Item Value Reference Range Comments WHITE BLOOD CELL COUNT (BEAKER) (test vmrn=903) 13.4 K/ L 3.5-10.5 RED BLOOD CELL COUNT (BEAKER) (test gofv=911) 4.05 M/ L 4.63-6.08 HEMOGLOBIN (BEAKER) (test fzhk=291) 12.6 GM/DL 13.7-17.5 HEMATOCRIT (BEAKER) (test vpbi=275) 36.4 % 40.1-51.0 MEAN CORPUSCULAR VOLUME (BEAKER) (test aqnv=945) 89.9 fL 79.0-92.2 MEAN CORPUSCULAR HEMOGLOBIN (BEAKER) (test 31.1 pg 25.7-32.2 dteq=979) MEAN CORPUSCULAR HEMOGLOBIN CONC (BEAKER) (test 34.6 GM/DL 32.3-36.5 uack=321) RED CELL DISTRIBUTION WIDTH (BEAKER) (test 13.7 % 11.6-14.4 doie=223) PLATELET COUNT (BEAKER) (test qpwp=919) 223 K/CU MM 150-450 MEAN PLATELET VOLUME (BEAKER) (test qeuz=511) 9.9 fL 9.4-12.4 NUCLEATED RED BLOOD CELLS (BEAKER) (test 0 /100 WBC 0-0 zylf=550) NEUTROPHILS RELATIVE PERCENT (BEAKER) (test 94 % edkm=741) LYMPHOCYTES RELATIVE PERCENT (BEAKER) (test 5 % fwwb=574) MONOCYTES RELATIVE PERCENT (BEAKER) (test 1 % eqjm=553) EOSINOPHILS RELATIVE PERCENT (BEAKER) (test 0 % hjyx=851) BASOPHILS RELATIVE PERCENT (BEAKER) (test 0 % kzyp=322) NEUTROPHILS ABSOLUTE COUNT (BEAKER) (test 12.52 K/ L 1.78-5.38 jkyg=529) LYMPHOCYTES ABSOLUTE COUNT (BEAKER) (test 0.61 K/ L 1.32-3.57 vrva=855) MONOCYTES ABSOLUTE COUNT (BEAKER) (test 0.12 K/ L 0.30-0.82 geyv=025) EOSINOPHILS ABSOLUTE COUNT (BEAKER) (test 0.00 K/ L 0.04-0.54 hjmu=744) BASOPHILS ABSOLUTE COUNT (BEAKER) (test 0.01 K/ L 0.01-0.08 ymtm=833) IMMATURE GRANULOCYTES-RELATIVE PERCENT (BEAKER) 1 % 0-1 (test pzyr=8895) [id number] 02:39:00 Test Item Value Reference Range Comments LIPASE (BEAKER) (test exxs=429) 14 U/L 8-78 COMPREHENSIVE METABOLIC [id number] 02:39:00 Test Item Value Reference Range Comments TOTAL PROTEIN (BEAKER) 6.2 gm/dL 6.0-8.3 (test qvgi=743) ALBUMIN (BEAKER) (test 3.5 g/dL 3.5-5.0 metk=8195) ALKALINE PHOSPHATASE 31 U/L 40-150 (BEAKER) (test dowe=152) BILIRUBIN TOTAL (BEAKER) 0.5 mg/dL 0.2-1.2 (test ejot=278) SODIUM (BEAKER) (test 138 meq/L 136-145 ymtd=050) POTASSIUM (BEAKER) (test 4.3 meq/L 3.5-5.1 wlko=639) CHLORIDE (BEAKER) (test 104 meq/L 98-107 wrdh=949) CO2 (BEAKER) (test 22 meq/L 22-29 gwte=099) BLOOD UREA NITROGEN 27 mg/dL 7-21 (BEAKER) (test yweg=591) CREATININE (BEAKER) (test 1.49 mg/dL 0.57-1.25 dnvo=782) GLUCOSE RANDOM (BEAKER) 339 mg/dL 70-105 (test jnab=416) CALCIUM (BEAKER) (test 8.8 mg/dL 8.4-10.2 jadj=154) AST (SGOT) (BEAKER) (test 91 U/L 5-34 eqtk=903) ALT (SGPT) (BEAKER) (test 21 U/L 6-55 aftv=497) EGFR (BEAKER) (test 47 mL/min/1.73 sq m ESTIMATED GFR IS NOT bcrf=1366) ACCURATE CREATININE CLEARANCE IN PREDICTING GLOMERULAR FILTRATION RATE. ESTIMATED GFR IS NOT APPLICABLE FOR DIALYSIS PATIENTS. [id number] 02:39:00 Test Item Value Reference Range Comments MAGNESIUM (BEAKER) (test ozqa=816) 1.9 mg/dL 1.6-2.6 LACTIC ACID, VENOUS, WHOLE [id number] 02:34:00 Test Item Value Reference Range Comments LACTATE BLOOD VENOUS (2) 2.8 mmol/L 0.5-2.2 Specimen slightly hemolyzed (BEAKER) (test pyoj=6364) Effective 03/02/2016: Units/Reference Range ChangeNew: 0.5-2.2 mmol/L Previous: 5 -20 mg/dLPLATELET [id number] 02:14:00 Test Item Value Reference Range Comments PLATELET COUNT (BEAKER) (test jqtp=352) 223 K/CU MM 150-450 RAD, CHEST, 1 VIEW, NON [id number] 01:50:00Reason for exam:->lines placement Should this be [...] Verified Date/Time : 08/30/2018 01:50:34 Reading Location: [facility] C0[facility] Transitional Reading Room
[2019-06-26] MEDS ORDERED: NA CHLORIDE 0.9% 2,000 ML ONE (11:34)
[2019-06-26] MEDS ORDERED: CEFTRIAXONE/SWI 1gm 1 GM/10 ML SYR ONE (11:34)
[2019-06-26 11:47] LABS: Absolute Lymphocytes (CBC) 2.3 K/uL (0.7-4.9); Basophils % 0.8 % (0-1.3); Hematocrit 41.3 % (39.6-49.0); Lymphocytes % 26.7 % (15.3-44.8); MPV 7.9 fL (7.6-11.3); RBC Red Blood Cell Count 4.72 M/uL (4.33-5.43)
[2019-06-26] MEDS ORDERED: IPRATROPIUM BROM 0.5MG/2.5ML ONE (11:51)
[2019-06-26] MEDS ORDERED: ALBUTEROL 2.5 MG/3 ML NEB SOL ONE (11:51)
[2019-06-26] MEDS ORDERED: METHYLPREDNISOLONE 125 MG INJ ONE (11:52)
[2019-06-26 11:53] LABS: Protime INR 1.01
[2019-06-26] MEDS ORDERED: AZITHROMYCIN IV 500 MG in NA CHLORIDE 0.9% 250 ML IVPB ONE (12:00)
--- NOTE | 2019-06-26 12:00 | RAD REPORT ---
EXAM DESCRIPTION: Rekha Single View06/26/2019 11:49 am CLINICAL HISTORY: Congestion COMPARISON: March 2019 FINDINGS: Mild right basilar atelectasis Left lung appears clear Heart is mildly enlarged. Postsurgical changes involve the chest. Patient is in a poor degree inspiration
[2019-06-26 12:10] LABS: Arterial Blood Carboxyhemoglob 1.1 % (0-1.5); Blood O2 Saturation 92.9 % (92-98.5)
[2019-06-26 12:16] LABS: ALT/SGPT 20 U/L (12-78); AST/SGOT 50 U/L (15-37); Albumin 3.4 g/dL (3.4-5.0); Alkaline Phosphatase 75 U/L (45-117); BUN Blood Urea Nitrogen 79 mg/dL (7-18); Bicarbonate 24 mmol/L (21-32); Bilirubin Direct 0.1 mg/dL (0-0.2); Bilirubin Total 0.3 mg/dL (0.2-1.0); CKMB Creatine Kinase MB 6.7 ng/mL (0.3-3.6); Creatine Phosphokinase 920 U/L (39-308); Glucose Level 168 mg/dL (74-106); Lipase 164 U/L (73-393); Potassium 4.5 mmol/L (3.5-5.1); Protein, Total 7.9 g/dL (6.4-8.2); Sodium Level 140 mmol/L (136-145); Troponin (Emerg Dept Use Only) < 0.02 ng/mL (0.0-0.045)
--- NOTE | 2019-06-26 12:19 | RAD REPORT ---
EXAM DESCRIPTION: CT - Head Brain Wo Cont - 06/26/2019 12:11 pm CLINICAL HISTORY: CONFUSED Headache, drowsiness COMPARISON: Head Brain Wo Cont dated 02/05/2019; Head Brain Wo Cont dated 08/29/2018 TECHNIQUE: All CT scans are performed using dose optimization technique as appropriate and may inclu de automated exposure control or mA/KV adjustment according to patient size. FINDINGS: No intracranial hemorrhage, hydrocephalus or extra-axial fluid collection.No areas of brai n edema or evidence of midline shift. The paranasal sinuses and mastoids are clear. The calvarium is intact. Right vertebral artery is calc ified. IMPRESSION: No acute intracranial abnormality.
--- NOTE | 2019-06-26 12:58 | CON ---
History Of Present Illness: Mr. Burnett, the patient, came to the wound clinic for a routine visit a nd was found to be obtunded. He apparently was brought in a wheelchair, was able to make a transfer to the bed, but it is probably more accurate to say he is extremely lethargic. He will follow a few commands, not very well. When asked him to smile, there is barely an effort. Looked like he may hav e been weaker on the left side there. 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 Mr. Burnett has obesity, diabetes, hypertension, bypass surgery in March of this year complicated by a wound infec tion in his left leg that is just about completely healed now. There is no complaint of chest pain o r shortness of breath, but the patient is extremely lethargic and his mental status is clearly not no rmal. According to his , he has looked mildly lethargic for several weeks beginning last , he looked pretty much like this. Apparently, he has been eating and drinking. As of now, we do n ot have any blood work, no blood gas, although that is pending. No CAT scans. Hopefully, we will ge t those done fairly quickly and decide what might be wrong with him. His blood pressure is low, it i s 90. Over the entire weekend, his systolic blood pressures have been in the 80s to 90s, but he was not brought to the emergency room or to the hospital for any attention until today. Physical Examination: VITAL SIGNS: His cardiac sounds are normal. Blood pressure 99/60, heart rate in the 70s. Plan: I think the patient needs to get a head CAT scan and echocardiogram to make sure lopez ving some tamponade and get a blood gas to make sure he is not retaining a lot of CO2. Overall, he looks like a patient, who has been ill for some time now, much more ill, and I worry that there may h ave been a recent stroke. BRITTANEY/SHERYL Voice ID: [id number] Report ID: [id number]
[2019-06-26] MEDS ORDERED: NA CHLORIDE 0.9% 1,000 ML ONE (13:09)
--- NOTE | 2019-06-26 13:32 | ER ---
Nurse's Notes [facility] Name: Asim Burnett Age: 63 yrs Sex: Male : 1955 Arrival Date: 06/26/2019 Time: 11:06 Bed 5 Private MD: Diagnosis: Acute kidney failure Presentation: 06/26 11:06 Presenting complaint: Wound Care Nurse reports pt being sent here by Dr. Garcia for ER aa5 evaluation. Pt c/o Generalized weakness, pt is drowsy but easy to awaken to verbal stimuli, and A\\T\\O x 4. 11:06 Transition of care: patient was not received from another setting of care. Onset of aa5 symptoms was June 26, 2019. Care prior to arrival: None. 11:06 Acuity: ORACIO 2 aa5 11:06 Method Of Arrival: Wheelchair aa5 11:11 Risk Assessment: Do you want to hurt yourself or someone else? Patient reports no tw2 desire to harm self or others. Initial Sepsis Screen: Does the patient meet any 2 criteria? No. Patient's initial sepsis screen is negative. Does the patient have a suspected source of infection? No. Patient's initial sepsis screen is negative. 11:12 Note per pts "he has been real sleepy for like 2 weeks but since Monday it has tw2 just gotten worse and i checked his oxygen and it was low like in the 70's and his blood pressure has been low as well but i knew he was going to get checked out today so we just came to [facility] healing center". Historical: - Allergies: 11:09 Ibuprofen; sv - Home Meds: 12:21 Abilify 5 mg Oral tab 1 tab once daily [Active]; Advair Diskus 250-50 mcg/dose Inhl tw2 dsdv 1 puff 2 times per day [Active]; Albuterol Inhl [Active]; amlodipine 5 mg tab 1 tab once daily [Active]; aspirin 81 mg Oral chew once daily [Active]; atorvastatin 20 mg Oral tab once daily [Active]; Breo Ellipta 100-25 mcg/dose inhalation dsdv 1 puff once daily [Active]; Brovana 15 mcg/2 mL inhalation nebu 2 times per day [Active]; clonazepam 1 mg Oral tab 1 tab 3 times per day [Active]; clopidogrel 75 mg Oral tab 1 tab once daily [Active]; gabapentin 300 mg Oral cap 2 caps 3 times per day [Active]; Humalog 100 unit/mL Sub-Q soln 24 unit three times a day [Active]; Insulin Glargine Sub-Q 50 unit nightly [Active]; Lipitor 80 mg Oral tab 1 tab once daily [Active]; metformin 500 mg Oral tab [Active]; oxycodone-acetaminophen 10-325 mg Oral tab 1 tab QID [Active]; Prevacid 30 mg Oral cpDR 1 cap once daily [Active]; Proventil Inhl [Active]; spironolactone 25 mg Oral tab 1 tab once daily [Active]; - PMHx: 11:09 Anxiety; cardiac stent; COPD; Depression; Diabetes - IDDM; High Cholesterol; sv Hypertension; Myocardial infarction; - PSHx: 11:09 cardiac stent; sv 12:21 CABG; tw2 - Immunization history:: Adult Immunizations. - Social history:: Patient/guardian denies using alcohol, street drugs, The patient lives with spouse, Smoking status: . - Ebola Screening: : No symptoms or risks identified at this time. - Family history:: not pertinent. Screenin:08 Abuse screen: Denies threats or abuse. Denies injuries from another. Nutritional sv screening: No deficits noted. Tuberculosis screening: No symptoms or risk factors identified. 12:19 Fall Risk Secondary diagnosis (15 points) impaired mobility. tw2 Assessment: 11:10 General: Appears obese, well groomed, Behavior is obtunded. Pain: Denies pain. Neuro: tw2 Level of Consciousness is obeys commands, obtunded, Oriented to person, place, situation. Cardiovascular: Heart tones S1 S2 Capillary refill < 3 seconds. Respiratory: Airway is patent Respiratory effort is even, unlabored, Respiratory pattern is regular, symmetrical, Breath sounds are diminished bilaterally. GI: Abdomen is round non-distended, obese, Bowel sounds present X 4 quads. : No signs and/or symptoms were reported regarding the genitourinary system. EENT: No signs and/or symptoms were reported regarding the EENT system. Derm: No signs and/or symptoms reported regarding the dermatologic system. Musculoskeletal: Range of motion: intact in all extremities. 12:17 Reassessment: No changes from previously documented assessment. Patient and/or family tw2 updated on plan of care and expected duration. Pain level reassessed. 13:17 Reassessment: No changes from previously documented assessment. Patient and/or family tw2 updated on plan of care and expected duration. Pain level reassessed. 14:15 Reassessment: No changes from previously documented assessment. Patient and/or family tw2 updated on plan of care and expected duration. Pain level reassessed. 14:59 Reassessment: No changes from previously documented assessment. Patient and/or family tw2 updated on plan of care and expected duration. Pain level reassessed. Vital Signs: 11:11 BP 81 / 53; Pulse 62; Resp 21; Pulse Ox 96% on 3 lpm NC; Weight 110 kg; Height 5 ft. 7 sv in. (170.18 cm); 11:38 Temp 97.5(TE); tw2 11:48 BP 74 / 55; Pulse 62; Resp 17; Pulse Ox 94% on 3 lpm NC; tw2 12:17 BP 76 / 59; Pulse 16; Resp 19; Pulse Ox 96% on Nebulizer Mask; tw2 12:30 BP 70 / 56; Pulse 62; Resp 17; Pulse Ox 97% ; sv 13:06 BP 79 / 60; Pulse 70; Resp 18; Pulse Ox 87% on 3 lpm NC; tw2 13:45 BP 81 / 51; Pulse 73; Resp 21; Pulse Ox 95% on 3 lpm NC; sv 14:12 BP 81 / 66; Pulse 74; Resp 21; Pulse Ox 95% on 3 lpm NC; sv 11:11 Body Mass Index 37.98 (110.00 kg, 170.18 cm) sv 11:48 dr. lucero notified. tw2 13:06 dr. lucero notified. tw2 ED Course: 11:06 Patient arrived in ED. mr 11:06 Arm band placed on Patient placed in an exam room, on a stretcher. aa5 11:08 Patient has correct armband on for positive identification. Placed in gown. Bed in low sv position. Call light in reach. Side rails up X2. carbon brushes assembler on. Pulse ox on. NIBP on. Door closed. Head of bed elevated. 11:10 Triage completed. aa5 11:10 Awaiting ED provider evaluation. sv 11:11 Abigail Keita, MILLA is Primary Nurse. tw2 11:24 Cyndy Lucero MD is Attending Physician. ma2 11:25 Initial lab(s) drawn, by me, sent to lab. First set of blood cultures drawn by me. sv Inserted saline lock: 20 gauge in right antecubital area, using aseptic technique. Blood collected. Flushed right antecubital with 5 ml normal saline. 11:40 Inserted saline lock: 20 gauge in left antecubital area, using aseptic technique. sv Flushed left antecubital with 5 ml normal saline. 11:50 Chest Single View XRAY In Process Unspecified. EDMS 11:54 X-ray completed. Portable x-ray completed in exam room. Patient tolerated procedure sw well. 12:02 Second set of blood cultures drawn noted that 2nd set of cultures was sent to lab with tw2 no blood in containers, 2nd sent varghese at this time but 1gm Rocephin was given PRIOR to 2nd set of cultures. 12:13 CT Head Brain wo Cont In Process Unspecified. EDMS 13:30 Perry Garcia MD is Hospitalizing Provider. ma2 13:59 Awaiting bed assignment. sv 14:10 Repeat lab(s) drawn. by me, sent to lab. lactate. sv 14:21 Awaiting: unsuccessful attempt at report at this time. tw2 14:58 No provider procedures requiring assistance completed. Patient admitted, IV remains in tw2 place. Administered Medications: 11:38 Drug: Rocephin 1 grams Route: IV; Rate: calculated rate; Site: right antecubital; tw2 11:43 Follow up: Response: No adverse reaction; IV Status: Completed infusion tw2 11:39 Drug: NS 0.9% (30 ml/kg) 30 ml/kg {Note: 2L NS infusing at this time..} Route: IV; tw2 Rate: bolus; Site: right antecubital; 11:40 Not Given (Duplicate Order): NS 0.9% 1000 ml IV at 1 bolus Per protocol; 1000 mL bolus tw2 11:53 Drug: MethylPrednisoLONE 125 mg Route: IVP; Site: right antecubital; tw2 12:17 Follow up: Response: No adverse reaction tw2 12:16 Drug: Albuterol - atroVENT (3:1) (2.5 mg - 0.5 mg) 3 ml Route: Nebulizer; tw2 12:50 Follow up: Response: No adverse reaction sv 12:17 Drug: AZITHromycin 500 mg Route: IVPB; Infused Over: 1 hrs; Site: right antecubital; tw2 13:20 Follow up: Response: No adverse reaction; IV Status: Completed infusion tw2 13:15 Drug: NS 0.9% (30 ml/kg) 30 ml/kg Route: IV; Rate: bolus; Site: right antecubital; tw2 14:25 Follow up: Response: No adverse reaction; IV Status: Completed infusion; IV Intake: tw2 3000ml Intake: 14:25 IV: 3000ml; Total: 3000ml. tw2 Outcome: 13:30 Decision to Hospitalize by Provider. ma2 14:59 Admitted to ICU accompanied by nurse, accompanied by tech, via stretcher, room 7, with tw2 oxygen, on monitor, with chart, Report called to MILLA Salazar 14:59 Condition: unchanged 14:59 Instructed on the need for admit. 14:59 Patient left the ED. tw2 Signatures: Dispatcher [employer] Shraddha Good RN RN Bea Malloy mr Richey, Leslie, RN RN [email or web address] Kate Mixon Tara, RN RN tw2 Cyndy Lucero MD MD ma2 Corrections: (The following items were deleted from the chart) 11:09 11:08 Arm band placed on sv aa5 11:12 11:11 BP 81 / 53; Pulse 62bpm; Resp 21bpm; Pulse Ox 96% 3 lpm Nasal Cannula; [facility] 11:50 11:48 BP 74 / 55; Pulse 62bpm; Resp 17bpm; Pulse Ox 93% 3 lpm Nasal Cannula; dr. joanne lucero notified.; tw2
--- NOTE | 2019-06-26 13:33 | EDPHYS ---
Physician Documentation [facility] Name: Asim Burnett Age: 63 yrs Sex: Male : 1955 Arrival Date: 06/26/2019 Time: 11:06 Bed 5 Private MD: ED Physician Cyndy Lucero HPI: 06/26 13:28 This 63 yrs old Male presents to ER via Wheelchair with complaints of General ma2 Weakness. 13:28 The patient has shortness of breath at rest. Onset: The symptoms/episode began/occurred ma2 suddenly, gradually, 9 day(s) ago. Duration: The symptoms are continuous. Associated signs and symptoms: Pertinent negatives: non-productive cough, diaphoresis, dizziness, hemoptysis, nausea. Severity of symptoms: At their worst the symptoms were mild in the emergency department the symptoms are unchanged. The patient has not experienced similar symptoms in the past. Historical: - Allergies: 11:09 Ibuprofen; sv - Home Meds: 12:21 Abilify 5 mg Oral tab 1 tab once daily [Active]; Advair Diskus 250-50 mcg/dose Inhl tw2 dsdv 1 puff 2 times per day [Active]; Albuterol Inhl [Active]; amlodipine 5 mg tab 1 tab once daily [Active]; aspirin 81 mg Oral chew once daily [Active]; atorvastatin 20 mg Oral tab once daily [Active]; Breo Ellipta 100-25 mcg/dose inhalation dsdv 1 puff once daily [Active]; Brovana 15 mcg/2 mL inhalation nebu 2 times per day [Active]; clonazepam 1 mg Oral tab 1 tab 3 times per day [Active]; clopidogrel 75 mg Oral tab 1 tab once daily [Active]; gabapentin 300 mg Oral cap 2 caps 3 times per day [Active]; Humalog 100 unit/mL Sub-Q soln 24 unit three times a day [Active]; Insulin Glargine Sub-Q 50 unit nightly [Active]; Lipitor 80 mg Oral tab 1 tab once daily [Active]; metformin 500 mg Oral tab [Active]; oxycodone-acetaminophen 10-325 mg Oral tab 1 tab QID [Active]; Prevacid 30 mg Oral cpDR 1 cap once daily [Active]; Proventil Inhl [Active]; spironolactone 25 mg Oral tab 1 tab once daily [Active]; - PMHx: 11:09 Anxiety; cardiac stent; COPD; Depression; Diabetes - IDDM; High Cholesterol; sv Hypertension; Myocardial infarction; - PSHx: 11:09 cardiac stent; sv 12:21 CABG; tw2 - Immunization history:: Adult Immunizations. - Social history:: Patient/guardian denies using alcohol, street drugs, The patient lives with spouse, Smoking status: . - Ebola Screening: : No symptoms or risks identified at this time. - Family history:: not pertinent. ROS: 13:28 Constitutional: Negative for fever, chills, and weight loss. ma2 13:28 All other systems are negative. Exam: 13:28 Constitutional: This is a well developed, well nourished patient who is awake, alert, ma2 and in no acute distress. Head/Face: Normocephalic, atraumatic. Chest/axilla: Normal chest wall appearance and motion. Nontender with no deformity. No lesions are appreciated. Cardiovascular: Regular rate and rhythm with a normal S1 and S2. No gallops, murmurs, or rubs. Normal PMI, no JVD. No pulse deficits. Abdomen/GI: Soft, non-tender, with normal bowel sounds. No distension or tympany. No guarding or rebound. No evidence of tenderness throughout. MS/ Extremity: Pulses equal, no cyanosis. Neurovascular intact. Full, normal range of motion. Neuro: Awake and alert, GCS 15, oriented to person, place, time, and situation. Cranial nerves II-XII grossly intact. Motor strength 5/5 in all extremities. Sensory grossly intact. Cerebellar exam normal. Normal gait. 13:28 Respiratory: mild respiratory distress is noted, Breath sounds: are clear throughout. Vital Signs: 11:11 BP 81 / 53; Pulse 62; Resp 21; Pulse Ox 96% on 3 lpm NC; Weight 110 kg; Height 5 ft. 7 sv in. (170.18 cm); 11:38 Temp 97.5(TE); tw2 11:48 BP 74 / 55; Pulse 62; Resp 17; Pulse Ox 94% on 3 lpm NC; tw2 12:17 BP 76 / 59; Pulse 16; Resp 19; Pulse Ox 96% on Nebulizer Mask; tw2 12:30 BP 70 / 56; Pulse 62; Resp 17; Pulse Ox 97% ; sv 13:06 BP 79 / 60; Pulse 70; Resp 18; Pulse Ox 87% on 3 lpm NC; tw2 13:45 BP 81 / 51; Pulse 73; Resp 21; Pulse Ox 95% on 3 lpm NC; sv 14:12 BP 81 / 66; Pulse 74; Resp 21; Pulse Ox 95% on 3 lpm NC; sv 11:11 Body Mass Index 37.98 (110.00 kg, 170.18 cm) sv 11:48 dr. lucero notified. tw2 13:06 dr. lucero notified. tw2 MDM: 11:21 Patient medically screened. ma2 13:28 Differential diagnosis: Anemia Anxiety Reaction Bronchitis CHF exacerbation, pneumonia. ma2 Data reviewed: vital signs, nurses notes. Data interpreted: surveillance system monitor:. Counseling: I had a detailed discussion with the patient and/or guardian regarding: the historical points, exam findings, and any diagnostic results supporting the discharge/admit diagnosis, the presence of at least one elevated blood pressure reading (>120/80) during this emergency department visit. ED course: discussed with dr. baez will admit for ARF \E\. 06/26 11:22 Order name: Basic Metabolic Panel; Complete Time: 13: or06/26 11:22 Order name: Blood Culture Adult (2) [facility] 06/26 11:22 Order name: CBC with Diff; Complete Time: 13:22 [facility] 06/26 11:22 Order name: Ckmb; Complete Time: 13:22 [facility] 06/26 11:22 Order name: CPK; Complete Time: 13:22 or06/26 11:22 Order name: Lactate; Complete Time: 13:22 or06/26 11:22 Order name: LFT's; Complete Time: 13:22 [facility] 06/26 11:22 Order name: Lipase; Complete Time: 13:22 [facility] 06/26 11:22 Order name: Procalcitonin; Complete Time: 13:22 or06/26 11:22 Order name: Protime (+inr); Complete Time: 13:22 [facility] 06/26 11:22 Order name: Ptt, Activated; Complete Time: 13:22 [facility] 06/26 11:22 Order name: Troponin (emerg Dept Use Only); Complete Time: 13:22 or 06/26 11:22 Order name: Urine Microscopic Only or2 06/26 11:22 Order name: Chest Single View XRAY; Complete Time: 13:22 or2 06/26 11:22 Order name: Accucheck; Complete Time: 11:28 or2 06/26 11:22 Order name: Cardiac monitoring; Complete Time: 11:33 or2 06/26 11:22 Order name: EKG - Nurse/Tech; Complete Time: 11:33 or2 06/26 11:22 Order name: IV Saline Lock - Large Bore; Complete Time: 11:33 or2 06/26 11:29 Order name: Glucose, Ancillary Testing; Complete Time: 11:43 [facility] 06/26 11:47 Order name: ABG; Complete Time: 13:22 [facility] 06/26 11:50 Order name: BNP; Complete Time: 13:22 [facility] 06/26 11:50 Order name: CT Head Brain wo Cont; Complete Time: 13:22 or2 06/26 14:46 Order name: Lactate Sepsis 2 HR Follow-up [facility] 06/26 11:22 Order name: Labs collected and sent; Complete Time: 11:33 or2 06/26 11:22 Order name: O2 Per Protocol; Complete Time: 11:33 [facility] 06/26 11:22 Order name: O2 Sat Monitoring; Complete Time: 11:33 ma2 Administered Medications: 11:38 Drug: Rocephin 1 grams Route: IV; Rate: calculated rate; Site: right antecubital; tw2 11:43 Follow up: Response: No adverse reaction; IV Status: Completed infusion tw2 11:39 Drug: NS 0.9% (30 ml/kg) 30 ml/kg {Note: 2L NS infusing at this time..} Route: IV; tw2 Rate: bolus; Site: right antecubital; 11:40 Not Given (Duplicate Order): NS 0.9% 1000 ml IV at 1 bolus Per protocol; 1000 mL bolus tw2 11:53 Drug: MethylPrednisoLONE 125 mg Route: IVP; Site: right antecubital; tw2 12:17 Follow up: Response: No adverse reaction tw2 12:16 Drug: Albuterol - atroVENT (3:1) (2.5 mg - 0.5 mg) 3 ml Route: Nebulizer; tw2 12:50 Follow up: Response: No adverse reaction sv 12:17 Drug: AZITHromycin 500 mg Route: IVPB; Infused Over: 1 hrs; Site: right antecubital; tw2 13:20 Follow up: Response: No adverse reaction; IV Status: Completed infusion tw2 13:15 Drug: NS 0.9% (30 ml/kg) 30 ml/kg Route: IV; Rate: bolus; Site: right antecubital; tw2 14:25 Follow up: Response: No adverse reaction; IV Status: Completed infusion; IV Intake: tw2 3000ml Disposition: 06/26/19 13:30 Hospitalization ordered by Perry Garcia for Inpatient Admission. Preliminary diagnosis is Acute kidney failure. - Bed requested for Intensive Care Unit. - Status is Inpatient Admission. tw2 - Condition is Guarded. - Problem is new. - Symptoms are unchanged. UTI on Admission? No Signatures: Dispatcher [employer] EDMS Shraddha Weir RN RN Divine Maxwell RN RN Leslie Richey RN RN aa5 Abigail Keita RN RN 2 Cyndy Lucero MD MD or2 Mildred Cota Corrections: (The following items were deleted from the chart) 11:49 11:24 Wound Culture+BA.LAB.BRZ ordered. [facility] EDCA 14:03 13:30 Hospitalization Ordered by Perry Garcia MD for Inpatient Admission. Preliminary eb diagnosis is Acute kidney failure. Bed requested for Telemetry/MedSurg (Inpatient). Status is Inpatient Admission. Condition is Guarded. Problem is new. Symptoms are unchanged. UTI on Admission? No. ma2 14:24 14:03 06/26/2019 13:30 Hospitalization Ordered by Perry Garcia MD for Inpatient dw Admission. Preliminary diagnosis is Acute kidney failure. Bed requested for Telemetry/MedSurg (Inpatient). Status is Inpatient Admission. Condition is Guarded. Problem is new. Symptoms are unchanged. UTI on Admission? No. eb 14:29 14:24 06/26/2019 13:30 Hospitalization Ordered by Perry Garcia MD for Inpatient dw Admission. Preliminary diagnosis is Acute kidney failure. Bed requested for Telemetry/MedSurg (Inpatient). Status is Inpatient Admission. Condition is Guarded. Problem is new. Symptoms are unchanged. UTI on Admission? No. dw 14:59 14:29 06/26/2019 13:30 Hospitalization Ordered by Perry Garcia MD for Inpatient tw2 Admission. Preliminary diagnosis is Acute kidney failure. Bed requested for Intensive Care Unit. Status is Inpatient Admission. Condition is Guarded. Problem is new. Symptoms are unchanged. UTI on Admission? No. dw
[2019-06-26] MEDS ORDERED: IPRATROPIUM BROM 0.5MG/2.5ML NEB PRN (13:37)
[2019-06-26] MEDS ORDERED: ONDANSETRON 4 MG/2 ML VIAL IV PRN (13:37)
[2019-06-26] MEDS ORDERED: ALBUTEROL 2.5 MG/3 ML NEB SOL NEB PRN (13:37)
[2019-06-26] MEDS ORDERED: AZITHROMYCIN IV 250 MG in NA CHLORIDE 0.9% 250 ML IVPB SCH (14:30)
[2019-06-26 15:20] VITALS: BMI 36.6
--- NOTE | 2019-06-26 15:29 | EKG ---
Test Date: 2019-06-26 Test Time: 11:10:18 Student Support Services Director: MARILIA MEASUREMENT RESULTS: Intervals: Rate: 62 UT: 182 QRSD: 84 QT: 412 QTc: 418 [place]: P: 35 UT: 182 QRS: -42 T: -5 INTERPRETIVE STATEMENTS: Normal sinus rhythm Left axis deviation Nonspecific ST and T wave abnormality Abnormal ECG Compared to ECG 04/01/2019 13:32:17 Left-axis deviation now present ST (T wave) deviation now present Left anterior fascicular block no longer present Electronically Signed On 06-26-19 15:28:51 CDT by Dre Mai
--- NOTE | 2019-06-26 15:30 | ECHO ---
HEIGHT: 5 ft 5 in WEIGHT: 225 lb oz DATE OF STUDY: 06/26/[address]: Dre Mai MD 2-DIMENSIONAL: YES M.MODE: YES DOPPLER: YES COLOR FLOW: YES TDS: YES PORTABLE: NO DEFINITY: NO BUBBLE STUDY: NO DIAGNOSIS: CORONARY ARTERY DISEASE CARDIAC HISTORY: CATHERIZATION: YES SURGERY: YES PROSTHETIC VALVE: NO PACEMAKER: NO MEASUREMENTS (cm) DIASTOLIC (NORMALS) SYSTOLIC (NORMALS) IVSd 1.2 (0.6-1.2) LA Diam (1.9-4.0) LVEF 75% LVIDd 3.2 (3.5-5.7) LVIDs 1.8 (2.0-3.5) %FS 42% LVPWd 1.0 (0.6-1.2) Ao Diam 3.1 (2.0-3.7) 2 DIMENSIONAL ASSESSMENT: RIGHT ATRIUM: NORMAL LEFT ATRIUM: NORMAL RIGHT VENTRICLE: NORMAL LEFT VENTRICLE: NORMAL TRICUSPID VALVE: NORMAL MITRAL VALVE: NORMAL PULMONIC VALVE: NORMAL AORTIC VALVE: NORMAL PERICARDIAL EFFUSION: NONE AORTIC ROOT: NORMAL LEFT VENTRICULAR WALL MOTION: NORMAL. DOPPLER/COLOR FLOW: MILD AORTIC REGURGITATION. COMMENTS: NORMAL 2D ECHO. MILD AORTIC REGURGITATION. TECHNOLOGIST: WOJCIECH DALE
[2019-06-26] MEDS: NA CHLORIDE 0.9% 1,000 ML IV SCH (17:00)
[2019-06-26] MEDS ORDERED: GLUCAGON 1 MG/VIAL IM PRN (17:39)
[2019-06-26] MEDS ORDERED: D50W 25 GM/50 ML SYRINGE IV PRN (17:39)
--- NOTE | 2019-06-26 17:53 | P.HP ---
Certification for Inpatient Patient admitted to: Inpatient Patient will require the following post-hospital care: None Practitioner: I am a practitioner with admitting privileges, knowledge of patient current condition, hospital course, and medical plan of care. Services: Services provided to patient in accordance with Admission requirements found in Title 42 Section 412.3 of the Code of Federal Regulations Patient History Date of Service: 06/26/19 Reason for admission: acute renal failure History of Present Illness: Patient of mine in the wound care center. He came in for treatment of his surgical wound from his CABG. his wound has healed. however the patient has decreased mentation. He was hypotensive. His at the bedside states he has been hypoxic at home. Has a history of diabetes, htn, copd and the above mentioned cad. Dr. Mai came to the wound center and recomended ER rather than direct admit. He had a negative ct scan of the head. slight elevationin his CO2. However he had an elevated creatine. No record or abnormal creatine before this. As he was still hypotensive after 2 lts of fluids will admit. Allergies ibuprofen Allergy (Intermediate, Verified 04/01/19 18:18) Hives/Rash Home Medications: ARIPiprazole [Abilify*] 10 mg PO DAILY 06/09/18 Metformin HCl 1,000 mg PO BID 06/09/18 Proair Hfa 90mcg/Inh 2 puff IH QIDP PRN 06/09/18 Clopidogrel Bisulfate [Plavix*] 75 mg PO DAILY #30 tablet 12/18/18 Aspirin 81 mg PO DAILY 02/05/19 Oxycodone HCl/Acetaminophen [Oxycodone-Acetaminophen 10-325] 1 each PO TID PRN 02/05/19 Albuterol Inhaler [Ventolin Inhaler*] 2 puff IH QIDP PRN 04/01/19 Fluticasone/Vilanterol [Breo Ellipta 100-25 Mcg INH] 1 puff IH DAILY 04/01/19 Atorvastatin Calcium [Lipitor] 20 mg PO BEDTIME 05/14/19 Bumetanide [Bumex] 2 mg PO BID 05/14/19 Empagliflozin [Jardiance] 25 mg PO DAILY 05/14/19 Insulin Glulisine [Apidra] 15 units SQ TID 05/14/19 Furosemide [Lasix] 20 mg PO DAILY 06/26/19 Gabapentin 600 mg PO TID 06/26/19 Lisinopril [Prinivil*] 5 mg PO DAILY 06/26/19 Metoprolol Tartrate [Lopressor] 50 mg PO DAILY 06/26/19 Omeprazole [Prilosec] 40 mg PO BID 06/26/19 Oxycodone HCl [Oxycontin] 10 mg PO PRN PRN 06/26/19 Spironolactone 25 mg PO DAILY 06/26/19 Trazodone [Desyrel*] 300 mg PO BEDTIME 06/26/19 clonazePAM [Clonazepam] 1 mg PO QID PRN 06/26/19 - Past Medical/Surgical History Diabetic: Yes -: CAD -: COPD -: DM -: PAD -: depression -: Gastroesophageal reflux disease -: Obstructive sleep apnea- uses CPAP at home -: (home 02 3L) -: Coronary artery disease status post stent -: Pancreatic surgery - valve repair -: cholecystectomy -: several back surgery -: Cardiac stent x1 -: 2008 ercp, punctured something in his pacreas, then transfered to -: [facility] for open exploratory lap, had feeding tube that has reversed -: trach from previous surgery at [facility] -: CABG x 3 - Family History Father -: Heart disease, Diabetes Mother -: Heart disease, Hypertension, Lung disease, GI disease, Diabetes, Stroke, Liver disease, Kidney disease Brother -: Heart disease, Hypertension, Lung disease, Diabetes, Stroke, Liver disease, Kidney disease Notes: 2 brothers Sister -: Heart disease, GI disease Notes: no known illness - Social History Smoking Status: Unknown if ever smoked Alcohol use: No CD- Drugs: No Caffeine use: Yes Review of Systems is unable to be obtained Physical Examination - Vital Signs Temperature: 97.0 F Blood Pressure: 106/70 Pulse: 83 Respirations: 17 Pulse Ox (%): 97 - Physical Exam General: Delirious HEENT: Atraumatic, PERRLA, Mucous membr. moist/pink, EOMI, Sclerae nonicteric Neck: Supple, 2+ carotid pulse no bruit, No LAD, Without JVD or thyroid abnormality Respiratory: Clear to auscultation bilaterally, Normal air movement Cardiovascular: Regular rate/rhythm, Normal S1 S2, Edema (1+) Gastrointestinal: Normal bowel sounds, No tenderness Musculoskeletal: No tenderness Integumentary: No rashes Lymphatics: No axilla or inguinal lymphadenopathy - Studies Laboratory Data (last 24 hrs) 06/26/19 11:25: PT 11.9, INR 1.01, APTT 31.2 06/26/19 11:25: WBC 8.8, Hgb 13.2 L, Hct 41.3, Plt Count 289 06/26/19 11:25: Sodium 140, Potassium 4.5, BUN 79 H, Creatinine 3.15 H, Glucose 168 H, Total Bilirubin 0.3, AST 50 H, ALT 20, Alkaline Phosphatase 75, Lipase 164 Assessment and Plan - Problems (Diagnosis) (1) JORGE (acute kidney injury) Onset Date: 12/17/18 Current Visit: No Status: Acute Plan: will start him on fluids. Consult with Dr. Heath. Will start a harp. (2) COPD (chronic obstructive pulmonary disease) Current Visit: Yes Status: Acute Plan: stable. Will continue his home meds. With prn breathing treatments. Qualifiers: COPD type: chronic bronchitis (3) Diabetes mellitus Onset Date: 06/11/18 Current Visit: No Status: Chronic Plan: Hold his insulin. Mild sliding scale. Qualifiers: Diabetes mellitus type: type 2 Diabetes mellitus senior living insulin use: with buttermaker continuous churn use Diabetes mellitus complication status: with hyperglycemia Qualified Code(s): E11.65 - Type 2 diabetes mellitus with hyperglycemia; Z79.4 - USP (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 of insulin (4) HTN (hypertension) Onset Date: 06/11/18 Current Visit: No Status: Chronic Plan: Will restart his home meds when his bp improves. Qualifiers: Hypertension type: essential hypertension Discharge Plan: Home Plan to discharge in: Greater than 2 days - Advance Directives Does patient have a Living Will: No Does patient have a Durable POA for Healthcare: No - Code Status/Comfort Care Code Status Assessed: No Code Status: Full Code Physician Review: Patient Assessed, Agree with Above Assessment and Plan Critical Care: Yes Time Spent Managing Pts Care (In Minutes): 75
[2019-06-26 18:41] LABS: Urine Bacteria <20 /HPF (NONE SEEN); Urine Culture Reflex Order NOT NEEDED; Urine RBC <5 /HPF (NONE SEEN)
[2019-06-26] MEDS: GABAPENTIN 300 MG CAP PO SCH (20:16)
[2019-06-26] MEDS ORDERED: HOME MED 1 EA UNK (Gabapentin [Gabapentin] 600 MG) PO SCH (21:00)
[2019-06-26] MEDS ORDERED: ATORVASTATIN 20 MG TAB PO SCH (21:00)
[2019-06-26] MEDS ORDERED: CEFTRIAXONE/SWI 1gm 1 GM/10 ML SYR IVP SCH (21:00)
[2019-06-26] MEDS ORDERED: HOME MED 1 EA UNK (Omeprazole [Prilosec] 40 MG) PO SCH (21:00)
[2019-06-26] MEDS: INSULIN -REGULAR HUMAN 50 UNIT/0.5 ML ML SQ SCH (22:20)
[2019-06-27] MEDS: NA CHLORIDE 0.9% 1,000 ML IV SCH ×2 (02:46→13:00)
[2019-06-27 04:53] LABS: Basophils % 0.7 % (0-1.3); Hematocrit 38.7 % (39.6-49.0); MPV 7.9 fL (7.6-11.3)
[2019-06-27 05:09] LABS: Potassium 5.1 mmol/L (3.5-5.1)
[2019-06-27 07:27] VITALS: O2SAT 100
[2019-06-27] MEDS: INSULIN -REGULAR HUMAN 50 UNIT/0.5 ML ML SQ SCH ×2 (07:30→11:30)
[2019-06-27] MEDS ORDERED: PANTOPRAZOLE 40MG TABLET PO SCH (07:30)
[2019-06-27] MEDS: GABAPENTIN 300 MG CAP PO SCH ×2 (08:48→14:16)
[2019-06-27] MEDS ORDERED: ARIPiprazole 5 MG TAB PO SCH (09:00)
[2019-06-27] MEDS ORDERED: SPIRONOLACTONE 25 MG TABLET PO SCH (09:00)
[2019-06-27] MEDS ORDERED: HOME MED 1 EA UNK (Fluticasone/Vilanterol [Breo Ellipta 100-25 Mcg Inh] 1 PUFF) IH SCH (09:00)
[2019-06-27] MEDS ORDERED: CLOPIDOGREL 75 MG TABLET PO SCH (09:00)
[2019-06-27] MEDS ORDERED: ASPIRIN 81 MG CHEWABLE TABLET PO SCH (09:00)
[2019-06-27] MEDS ORDERED: AZITHROMYCIN IV 250 MG in NA CHLORIDE 0.9% 250 ML IVPB SCH (09:00)
[2019-06-27] MEDS ORDERED: METOPROLOL TAR 50 MG TAB PO SCH (09:00)
--- NOTE | 2019-06-27 09:05 | P.PN ---
Subjective Date of Service: 06/27/19 Chief Complaint: acute renal failure Subjective: Improving (Patient admitted to the retail shift leader nurse to taking 3 oxycontin pills(10mg each) On Monday night.) Review of Systems 10-point ROS is otherwise unremarkable Physical Examination - Vital Signs Temperature: 97 F Blood Pressure: 125/78 Pulse: 67 Respirations: 14 Pulse Ox (%): 98 - Physical Exam General: Alert, In no apparent distress HEENT: Atraumatic, PERRLA, EOMI Neck: Supple, JVD not distended Respiratory: Clear to auscultation bilaterally, Normal air movement Cardiovascular: Regular rate/rhythm, Normal S1 S2 Gastrointestinal: Normal bowel sounds, No tenderness Musculoskeletal: No tenderness Integumentary: No rashes Neurological: Normal speech, Normal tone, Normal affect Lymphatics: No axilla or inguinal lymphadenopathy - Studies Laboratory Data (last 24 hrs) 06/26/19 11:25: PT 11.9, INR 1.01, APTT 31.2 06/26/19 11:25: WBC 8.8, Hgb 13.2 L, Hct 41.3, Plt Count 289 06/26/19 11:25: Sodium 140, Potassium 4.5, BUN 79 H, Creatinine 3.15 H, Glucose 168 H, Total Bilirubin 0.3, AST 50 H, ALT 20, Alkaline Phosphatase 75, Lipase 164 Assessment & Plan - Problems (Diagnosis) (1) Prescription drug abuse Current Visit: Yes Status: Acute Plan: Thanks to our excellent nursing staff for getting this history. Per the Wound care staff his give him his medications. She is not even sure which meds at times. The patient IT ACCOUNT MANAGER aware shows a drug overdose index of 610, which is a relates to an odds ratio fo 1 to 85. Will discuss this with the patient and have faxed a copy to the chart and the Pts PCP Dr. Jaffe. (2) JORGE (acute kidney injury) Onset Date: 12/17/18 Current Visit: No Status: Acute Plan: Pt creatine has improved markedly with fluids. Pt has had retention. Which could be explained by the narcotics. Will d/c the harp. check residuals after. (3) COPD (chronic obstructive pulmonary disease) Current Visit: Yes Status: Acute Plan: stable. Will continue his home meds. With prn breathing treatments. Qualifiers: COPD type: chronic bronchitis (4) Diabetes mellitus Onset Date: 06/11/18 Current Visit: No Status: Chronic Plan: Hold his insulin. Mild sliding scale. Qualifiers: Diabetes mellitus type: type 2 Diabetes mellitus sound art instructor insulin use: with sound art instructor use Diabetes mellitus complication status: with hyperglycemia Qualified Code(s): E11.65 - Type 2 diabetes mellitus with hyperglycemia; Z79.4 - FPC (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 of insulin (5) HTN (hypertension) Onset Date: 06/11/18 Current Visit: No Status: Chronic Plan: Will restart his home meds when his bp improves. Qualifiers: Hypertension type: essential hypertension Discharge Plan: Home Plan to discharge in: 24 Hours - Code Status/Comfort Care Code Status Assessed: No Physician Review: Patient Assessed, Agree with Above Assessment and Plan Critical Care: No Time Spent Managing Pts Care (In Minutes): 35
[2019-06-27 12:00] VITALS: BP 125/74; TEMP 97.9
[2019-06-27] MEDS ORDERED: ACETAMINOPHEN 325 MG TABLET PO SCH (12:27)
--- NOTE | 2019-06-27 14:23 | P.DS ---
Admission Date: 06/26/19 Discharge Date: 06/27/19 Disposition: ROUTINE DISCHARGE Discharge Condition: FAIR Reason for Admission: acute renal failure - Problems (1) Prescription drug abuse Current Visit: Yes Status: Acute (2) JORGE (acute kidney injury) Onset Date: 12/17/18 Current Visit: No Status: Acute (3) COPD (chronic obstructive pulmonary disease) Current Visit: Yes Status: Acute Qualifiers: COPD type: chronic bronchitis (4) Diabetes mellitus Onset Date: 06/11/18 Current Visit: No Status: Chronic Qualifiers: Diabetes mellitus type: type 2 Diabetes mellitus adjunct faculty for medical terminology insulin use: with longterm use Diabetes mellitus complication status: with hyperglycemia Qualified Code(s): E11.65 - Type 2 diabetes mellitus with hyperglycemia; Z79.4 - long term care pharmacist (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 of insulin (5) HTN (hypertension) Onset Date: 06/11/18 Current Visit: No Status: Chronic Qualifiers: Hypertension type: essential hypertension Brief History of Present Illness: Patient of mine in the wound care center. He came in for treatment of his surgical wound from his CABG. his wound has healed. however the patient has decreased mentation. He was hypotensive. His at the bedside states he has been hypoxic at home. Has a history of diabetes, htn, copd and the above mentioned cad. Dr. Mai came to the wound center and recomended ER rather than direct admit. He had a negative ct scan of the head. slight elevationin his CO2. However he had an elevated creatine. No record or abnormal creatine before this. As he was still hypotensive after 2 lts of fluids will admit. Hospital Course: The patient improved last night. Admitted to taking 3 of his oxycontin. 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 He has a overdose risk score was 610 with a 1 to 85 odds ratio. Have had a meeting with the patient, the charge nurse and hospice social worker. Have discussed the need to wean off to avoid from drug overdose. The patient states he only takes oxycontin once a day. However he gets 120 pill every month. As well as 120 pill of clonezapam every month. The patient tried to shift the conversation to his back pain. This does not change the fact that he is at a high risk of overdose. The patient was told we would not be continuing his narcotics and he asked to be discharged. The patient was insistant. Will discharge him home. [facility]. Hopefully he takes this to heart. Vital Signs/Physical Exam: Temp Pulse Resp BP Pulse Ox 97.9 F 104 H 18 125/74 94 06/27/19 12:00 06/27/19 12:00 06/27/19 12:00 06/27/19 12:00 06/27/19 12:00 General: Alert, In no apparent distress HEENT: Atraumatic, PERRLA, EOMI Neck: Supple, JVD not distended Respiratory: Clear to auscultation bilaterally, Normal air movement Cardiovascular: Regular rate/rhythm, Normal S1 S2 Gastrointestinal: Normal bowel sounds, No tenderness Musculoskeletal: No tenderness Integumentary: No rashes Neurological: Normal speech, Normal tone, Normal affect Lymphatics: No axilla or inguinal lymphadenopathy Laboratory Data at Discharge: WBC 8.5 K/uL (4.3-10.9) 06/27/19 04:38 Hgb 12.7 g/dL (13.6-17.9) L 06/27/19 04:38 Hct 38.7 % (39.6-49.0) L 06/27/19 04:38 Plt Count 262 K/uL (152-406) 06/27/19 04:38 PT 11.9 SECONDS (9.5-12.5) 06/26/19 11:25 INR 1.01 06/26/19 11:25 APTT 31.2 SECONDS (24.3-36.9) 06/26/19 11:25 Sodium 143 mmol/L (136-145) 06/27/19 04:38 Potassium 5.1 mmol/L (3.5-5.1) 06/27/19 04:38 BUN 70 mg/dL (7-18) H 06/27/19 04:38 Creatinine 1.65 mg/dL (0.55-1.3) H D 06/27/19 04:38 Glucose 191 mg/dL (74-106) H 06/27/19 04:38 Total Bilirubin 0.3 mg/dL (0.2-1.0) 06/26/19 11:25 AST 50 U/L (15-37) H 06/26/19 11:25 ALT 20 U/L (12-78) 06/26/19 11:25 Alkaline Phosphatase 75 U/L (45-117) 06/26/19 11:25 Troponin I < 0.02 ng/mL (0.0-0.045) 06/26/19 19:34 Lipase 164 U/L (73-393) 06/26/19 11:25 Home Medications: ARIPiprazole [Abilify*] 10 mg PO DAILY 06/09/18 Metformin HCl 1,000 mg PO BID 06/09/18 Proair Hfa 90mcg/Inh 2 puff IH QIDP PRN 06/09/18 Clopidogrel Bisulfate [Plavix*] 75 mg PO DAILY #30 tablet 12/18/18 Aspirin 81 mg PO DAILY 02/05/19 Oxycodone HCl/Acetaminophen [Oxycodone-Acetaminophen 10-325] 1 each PO TID PRN 02/05/19 Albuterol Inhaler [Ventolin Inhaler*] 2 puff IH QIDP PRN 04/01/19 Fluticasone/Vilanterol [Breo Ellipta 100-25 Mcg INH] 1 puff IH DAILY 04/01/19 Atorvastatin Calcium [Lipitor] 20 mg PO BEDTIME 05/14/19 Bumetanide [Bumex] 2 mg PO BID 05/14/19 Empagliflozin [Jardiance] 25 mg PO DAILY 05/14/19 Insulin Glulisine [Apidra] 15 units SQ TID 05/14/19 Furosemide [Lasix] 20 mg PO DAILY 06/26/19 Gabapentin 600 mg PO TID 06/26/19 Lisinopril [Prinivil*] 5 mg PO DAILY 06/26/19 Metoprolol Tartrate [Lopressor] 50 mg PO DAILY 06/26/19 Omeprazole [Prilosec] 40 mg PO BID 06/26/19 Oxycodone HCl [Oxycontin] 10 mg PO PRN PRN 06/26/19 Spironolactone 25 mg PO DAILY 06/26/19 Trazodone [Desyrel*] 300 mg PO BEDTIME 06/26/19 clonazePAM [Clonazepam] 1 mg PO QID PRN 06/26/19 Diet: Regular Activity: Ad laureen Followup: Bebeto Jaffe DO, DO [Primary Care Provider] - Time spent managing pt's care (in minutes): 45
--- NOTE | 2019-06-27 15:38 | P.CNS ---
Date of Consult: 06/27/19 Reason for Consult: JORGE Requesting Physician: Perry Garcia Chief Complaint: acute renal failure History of Present Illness: 63 yo HM CAD presented to the [facility] ER with dyspnea, AMS and hypotension complicated by JORGE in the setting of urinary retention. In the ICU, the patient had a significant diuresis after the harp was placed suggesting underlying urinary retention. He is feeling better today. The patient was not in his room at the time of the visit and was seen and examined in the lobby. Patient of mine in the wound care center. He came in for treatment of his surgical wound from his CABG. his wound has healed. however the patient has decreased mentation. He was hypotensive. His at the bedside states he has been hypoxic at home. Has a history of diabetes, htn, copd and the above mentioned cad. Dr. Mai came to the wound center and recomended ER rather than direct admit. He had a negative ct scan of the head. slight elevationin his CO2. However he had an elevated creatine. No record or abnormal creatine before this. As he was still hypotensive after 2 lts of fluids will admit. 13:28 This 63 yrs old Male presents to ER via Wheelchair with complaints of General ma2 Weakness. 13:28 The patient has shortness of breath at rest. Onset: The symptoms/episode began/occurred ma2 suddenly, gradually, 9 day(s) ago. Duration: The symptoms are continuous. Associated signs and symptoms: Pertinent negatives: non-productive cough, diaphoresis , dizziness, hemoptysis, nausea. Severity of symptoms: At their worst the symptoms were mild in the emergency department the symptoms are unchanged. The patient has not experienced similar symptoms in the past. Allergies ibuprofen Allergy (Intermediate, Verified 04/01/19 18:18) Hives/Rash Home Medications: ARIPiprazole [Abilify*] 10 mg PO DAILY 06/09/18 Metformin HCl 1,000 mg PO BID 06/09/18 Proair Hfa 90mcg/Inh 2 puff IH QIDP PRN 06/09/18 Clopidogrel Bisulfate [Plavix*] 75 mg PO DAILY #30 tablet 12/18/18 Aspirin 81 mg PO DAILY 02/05/19 Oxycodone HCl/Acetaminophen [Oxycodone-Acetaminophen 10-325] 1 each PO TID PRN 02/05/19 Albuterol Inhaler [Ventolin Inhaler*] 2 puff IH QIDP PRN 04/01/19 Fluticasone/Vilanterol [Breo Ellipta 100-25 Mcg INH] 1 puff IH DAILY 04/01/19 Atorvastatin Calcium [Lipitor] 20 mg PO BEDTIME 05/14/19 Bumetanide [Bumex] 2 mg PO BID 05/14/19 Empagliflozin [Jardiance] 25 mg PO DAILY 05/14/19 Insulin Glulisine [Apidra] 15 units SQ TID 05/14/19 Furosemide [Lasix] 20 mg PO DAILY 06/26/19 Gabapentin 600 mg PO TID 06/26/19 Lisinopril [Prinivil*] 5 mg PO DAILY 06/26/19 Metoprolol Tartrate [Lopressor] 50 mg PO DAILY 06/26/19 Omeprazole [Prilosec] 40 mg PO BID 06/26/19 Oxycodone HCl [Oxycontin] 10 mg PO PRN PRN 06/26/19 Spironolactone 25 mg PO DAILY 06/26/19 Trazodone [Desyrel*] 300 mg PO BEDTIME 06/26/19 clonazePAM [Clonazepam] 1 mg PO QID PRN 06/26/19 - Past Medical/Surgical History Diabetic: Yes -: CAD -: COPD -: DM -: PAD -: depression -: Gastroesophageal reflux disease -: Obstructive sleep apnea- uses CPAP at home -: (home 02 3L) -: Coronary artery disease status post stent -: Pancreatic surgery - valve repair -: cholecystectomy -: several back surgery -: Cardiac stent x1 -: 2008 ercp, punctured something in his pacreas, then transfered to -: [facility] for open exploratory lap, had feeding tube that has reversed -: trach from previous surgery at [facility] -: CABG x 3 - Family History Father Medical History: Heart disease, Diabetes Mother Medical History: Heart disease, Hypertension, Lung disease, GI disease, Diabetes , Stroke, Liver disease, Kidney disease Brother Medical History: Heart disease, Hypertension, Lung disease, Diabetes, Stroke, Liver disease, Kidney disease Notes: 2 brothers Sister Medical History: Heart disease, GI disease Notes: no known illness - Social History Smoking Status: Unknown if ever smoked Alcohol use: No CD- Drugs: No Caffeine use: Yes Review of Systems 10-point ROS is otherwise unremarkable General: Weakness Respiratory: Cough Cardiovascular: Edema Physical Examination Temp Pulse Resp BP Pulse Ox 97.9 F 104 H 18 125/74 94 06/27/19 12:00 06/27/19 12:00 06/27/19 12:00 06/27/19 12:00 06/27/19 12:00 General: Alert, In no apparent distress, Oriented x3, Cooperative HEENT: Atraumatic, Normocephalic, Mucous membr. moist/pink Neck: Supple Respiratory: Clear to auscultation bilaterally, Normal air movement Cardiovascular: Regular rate/rhythm, Edema Gastrointestinal: Soft and benign, Non-distended Musculoskeletal: No clubbing, No contractures Integumentary: No rashes, No cyanosis Neurological: Normal speech Blood work reviewed in the chart. Na 143; K 5.1; BUN 70; Cr 1.65 Imagings Data: EXAM DESCRIPTION: Rekha Single View06/26/2019 11:49 am CLINICAL HISTORY: Congestion COMPARISON: March 2019 FINDINGS: Mild right basilar atelectasis Left lung appears clear Heart is mildly enlarged. Postsurgical changes involve the chest. Patient is in a poor degree inspiration Conclusions/Impression: The patient was not in his room at the time of the visit and was seen and examined in the lobby. A/ JORGE in the setting of hypotension and urinary retention. Hyperkalemia, mild. Rhabdomyolysis, mild. DM II with CKD. HTN with CKD. BPH with LUTS complicated by urinary retention. P/ Continue current POC and Medications. Agree with harp placement. Recommend a low potassium diet. Agree with IVF resuscitation. Consider flomax therapy. No NSAIDs. AM labs prn. Daily weight. Will arrange follow up in the nephrology clinic. Thank you for the consultation.
== END 2019-06-27 15:01 | disposition home or self-care (01) | DRG 897 ==
LOC: ER 11:02 → ERHOLD 13:38 → 3RD-ICU 14:36 → 4TH 06-27 10:59
PROVIDERS: ADMIT Internal Medicine; ATTEND Internal Medicine
DX: F11.10 Opioid abuse, uncomplicated (principal); N17.9 Acute kidney failure, unspecified; M62.82 Rhabdomyolysis; Z71.51 Drug abuse counseling and surveillance of drug abuser; I95.9 Hypotension, unspecified; R33.9 Retention of urine, unspecified; E87.5 Hyperkalemia; N40.1 Benign prostatic hyperplasia with lower urinary tract symptoms; R33.8 Other retention of urine; I25.10 Atherosclerotic heart disease of native coronary artery without angina pectoris; Z95.5 Presence of coronary angioplasty implant and graft; Z95.1 Presence of aortocoronary bypass graft; E11.65 Type 2 diabetes mellitus with hyperglycemia; Z79.4 Long term (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 of insulin; I10 Essential (primary) hypertension; J44.9 Chronic obstructive pulmonary disease, unspecified; G47.33 Obstructive sleep apnea (adult) (pediatric); Z99.81 Dependence on supplemental oxygen
CPT/HCPCS: 36415; 70450; 71045; 80048; 80076; 81015; 82550; 82553; 82805; 82962; 83605; 83690; 83880; 84145; 84484; 85025; 85610; 85730; 87040; 93005; 93306; 93925; 93970; 94640; 94760; 96365; 96366; 96375; 99212; 99285; J0456; J0696; J2930; J7030

== ENCOUNTER 2019-07-07 15:01 | Inpatient (IN) | payer MEDICARE, SELFPAY ==
[~2019-07-07 15:01] MED LIST: NA CHLORIDE 0.9% 1,000 ML ONE; NALOXONE 0.4 MG/ML VIAL ONE
--- OUTSIDE RECORDS SUMMARY | 2019-07-07 15:04 | XMS REPORT | Clinical Summary ---
:1955 Author Organization [facility] Address [address] [place] [address] Care Team Providers Name Role Phone Bebeto [...] LANCETS 33 gauge TWICE A DAY 7 [facility] blood sugar Check glucose 400 strip 3 Active diagnostic strips 4 times a day 7 (ONETOUCH VERIO) strip test stripsIndications: Type 2 diabetes mellitus with complication, with long-term current use of insulin ([facility]) insulin Use 1 syringe 270 each 1 [...] (Reorder) tablet by mouth daily. LOT # [id number] EXP: atorvastatin Take 20 mg by 0 [...] diabetes mellitus MD with complication, unspecified whether terminal press operator insulin use (HCC) (Primary Dx) 03/26/2019 Orders Only Endocrinology Susanna Laboy MA 02/25/2019 Office Visit Endocrinology Divina Zendejas, Type 2 diabetes mellitus with complication, unspecified whether terminal press operator insulin use (HCC) ( Primary Dx); Mixed hyperlipidemia; Coronary artery disease involving saxman heart without angina pectoris , unspecified vessel or lesion type; Benign essential hypertension 11/20/2018 Refill Endocrinology Divina Zendejas MD 11/19/2018 Office Visit Endocrinology Divina Zendejas, Type 2 diabetes mellitus with complication, unspecified whether terminal press operator insulin use (HCC) ( Primary Dx); Coronary artery disease involving saxman heart without angina pectoris, unspecified vessel or lesion type; Mixed hyperlipidemia 10/17/2018 Orders Only Endocrinology Divina Zendeajs Type 2 diabetes mellitus MD with complication, with long-term current use of insulin (HCC) 08/23/2018 Orders Only Endocrinology Susanna Laboy MA 07/25/2018 Office Visit Endocrinology Divina Zendejas, Uncontrolled type 2 diabetes MD mellitus with complication, unspecified terminal press operator insulin use status (Primary Dx) after 07/06/2018 Family History Medical History Relation Name Comments [...] 09/02/2019 Office Visit Endocrinology Divina Zendejas MD [address] [address] Health Maintenance Due Date Last [...] in complication, the results unspecified whether section. chcf insulin use (HCC) POC GLUCOSE Routine 05/27/2019 10:39 Type 2 diabetes Results for this AM CDT mellitus with procedure are in complication, the results unspecified whether section. chcf insulin use (HCC) HEMOGLOBIN A1C Routine 02/13/2019 7:07 Type 2 diabetes Results for this AM CDT mellitus with procedure are in complication, the results unspecified whether section. terminal press operator insulin use (HCC) HEMOGLOBIN A1C Routine 11/10/2018 8:08 Uncontrolled type 2 Results for this AM NURSERY SUPERVISOR diabetes mellitus with procedure are in complication, the results unspecified terminal press operator section. insulin use status BASIC METABOLIC PANEL Routine 11/10/2018 8:08 Uncontrolled type 2 Results for this AM NURSERY SUPERVISOR diabetes mellitus with procedure are in complication, the results unspecified chcf section. insulin use status VITAMIN D 25 [...] are in complication, the results unspecified terminal press operator section. insulin use status Hyperlipidemia, unspecified hyperlipidemia type COMPREHENSIVE Routine 07/19/2018 7:17 Uncontrolled type 2 Results for this METABOLIC PANEL AM CDT diabetes mellitus with procedure are in complication, the results unspecified terminal press operator section. insulin use status HEMOGLOBIN A1C Routine 07/19/2018 7:17 Uncontrolled type 2 Results for this AM CDT diabetes mellitus with procedure are in complication, the results unspecified terminal press operator section. insulin use status after 07/06/2018 Results POC glycosylated hemoglobin (Hb A1C) (05/27/2019 10:47 AM CDT) POC Hemoglobin A1C 7.2 % Specimen Blood POC glucose (05/27/2019 10:39 AM CDT) POC glucose 175Comment: NON FASTING 65 - 100 Specimen Blood Hemoglobin A1c (02/13/2019 7:07 AM CDT)Only the most recent of3 resultswithin the time period is included. Hemoglobin A1C 8.7 (H) <5.7 % of [facility] Comment: total Hgb [place] For someone without known diabetes, a hemoglobin [...] Performing Organization Information: Site ID: [id number] Name: [facility] Address: [address] [place] [id number] Director: Mitzi Lyons Performing Organization Address City/State/Zipcode Phone Number [employer] [place] [address] [place] [address] Basic metabolic panel (11/10/2018 8:08 AM NURSERY SUPERVISOR) Glucose 118 (H) 65 - 99 [facility] Comment: mg/dL [place] Fasting reference interval For someone without known diabetes, a glucose value between 100 and 125 mg/dL is consistent with prediabetes and should be confirmed with a follow-up test. BUN, whole blood 19 7 - 25 mg/dL [facility] [place] Creatinine 0.86 0.70 - 1.25 [facility] Comment: mg/dL [place] For patients >49 years of age, the reference limit for Creatinine is approximately 13% higher for people identified as -Ecuadorean. EGFR Non-Afr. 91 > OR=60 [facility] Ecuadorean mL/min/1.73m [place] 2 EGFR 105 > OR=60 [facility] Ecuadorean mL/min/1.73m [place] 2 BUN/creatinine NOT APPLICABLE 6 - 22 [facility] ratio (calc) [place] Sodium 137 135 - 146 [facility] mmol/L [place] Potassium 4.6 3.5 - 5.3 [facility] mmol/L [place] Chloride 101 98 - 110 [facility] mmol/L [place] CO2 26 20 - 32 [facility] mmol/L [place] Calcium 9.9 8.6 - 10.3 [facility] mg/dL [place] Specimen Blood Narrative Performed At FASTING:YES [facility] FASTING: YES Resulting Agency Comment Performing Organization Information: Site ID: [id number] Name: [facility] Address: [address] [place] [id number] Director: Mitzi Lyons Performing Organization Address City/State/Zipcode Phone Number [employer] [place] [address] [place] [address] Microalbumin / creatinine urine ratio (07/19/2018 7:17 AM CDT) Pathologist [facility] Creatinine, 137 20 - 320 [facility] urine, random mg/dL [place] Microalbumin, 0.6 See Note: [facility] urine Comment: mg/dL [place] Reference Range: Reference Range Not established Microalbumin/crea 4 <30 mcg/mg [facility] tinine ratio Comment: creat [place]NE[place] The ADA defines abnormalities in albumin excretion as follows: Category Result (mcg/mg creatinine) Normal<30 Microalbuminuria 30-299 Clinical albuminuria > KK=420 The ADA recommends that at least two of three specimens collected within a 3-6 month period be abnormal before considering a patient to be within a diagnostic category. Specimen Narrative Performed At FASTING:YES [facility] FASTING: YES Resulting Agency Comment Performing Organization Information: Site ID: [id number] Name: [facility] Address: [address] [place] [phone] Director: Mitzi Lyons Performing Organization Address [facility] [place] [address] Vitamin D 25 hydroxy level (07/19/2018 7:17 AM CDT) Vitamin D, 19 (L) 30 - 100 [facility] 25-hydroxy Comment: ng/mL [place] Vitamin D Status 25-OH Vitamin D: Deficiency:<20 ng/mL Insufficiency: 20 - 29 ng/mL Optimal: > or=30 ng/mL For 25-OH Vitamin D testing on patients on D2-supplementation and patients for whom quantitation of D2 and D3 fractions is required, the QuestAssureD(TM) 25-OH VIT D, (D2,D3), LC/MS/MS is recommended: order code 68438 (patients >2yrs). For more information on this test, go to: http://education.[employer]/faq/MYN457 (This link is being provided for informational/educational purposes only.) Specimen Narrative Performed At FASTING:YES [facility] FASTING: YES Resulting Agency Comment Performing Organization Information: Site ID: [id number] Name: [facility] Address: [address] [place] [phone] Director: Mitzi Lyons Performing Organization Address [facility] [place] [address] Lipid panel (07/19/2018 7:17 AM CDT) Cholesterol, total 189 <200 mg/dL [facility] [employer] [place] HDL cholesterol 38 (L) >40 mg/dL [facility] [place] Triglycerides 262 (H) <150 mg/dL [facility] [place] LDL cholesterol 114 (H) mg/dL (calc) [facility] calculated Comment: [place] Reference range: <100 Desirable range <100 mg/dL for primary prevention; <70 mg/dL for patients with CHD or diabetic patients with > or=2 CHD risk factors. LDL-C is now calculated using the Bud calculation, which is a validated novel method providing better accuracy than the Friedewald equation in the estimation of LDL-C. Pillo GUERRA et al. BRENDA. 2013;310(19): 2803-0774 (http://education.[employer]/faq/SSS256) Cholesterol/HDL 5.0 (H) <5.0 (calc) [facility] ratio [place] Non-HDL cholesterol 151 (H) <130 mg/dL [facility] Comment: (calc) [place] For patients with diabetes plus 1 major ASCVD risk factor, treating to a non-HDL-C goal of <100 mg/dL (LDL-C of <70 mg/dL) is considered a therapeutic option. Specimen Blood Narrative Performed At FASTING:YES [facility] FASTING: YES Resulting Agency Comment Performing Organization Information: Site ID: [id number] Name: [facility] Address: [address] [place] [phone] Director: Mitzi Lyons Performing Organization Address City/State/Zipcode [place] [address] Comprehensive metabolic panel (07/19/2018 7:17 AM CDT) [facility] Glucose 107 (H) 65 - 99 [employer] Comment: mg/dL [place] Fasting reference interval For someone without known diabetes, a glucose value between 100 and 125 mg/dL is consistent with prediabetes and should be confirmed with a follow-up test. BUN, whole blood 33 (H) 7 - 25 mg/dL [employer] [place] Creatinine 0.93 0.70 - 1.25 [facility] Comment: mg/dL [place] For patients >49 years of age, the reference limit for Creatinine is approximately 13% higher for people identified as -Ecuadorean. EGFR Non-Afr. 86 > OR=60 [facility] Ecuadorean mL/min/1.73m [place] 2 EGFR 100 > OR=60 [facility] E[place]adorean mL/min/1.73m [place] 2 BUN/creatinine 35 (H) 6 - 22 [facility] ratio (calc) [place] Sodium 139 135 - 146 [facility] mmol/L [place] Potassium 4.4 3.5 - 5.3 [facility] mmol/L [place] Chloride 105 98 - 110 [facility] mmol/L [place] CO2 27 20 - 32 [facility] mmol/L [place] Calcium 9.6 8.6 - 10.3 [facility] mg/dL [place] Protein 6.8 6.1 - 8.1 [facility] g/dL [place] Albumin, S 4.2 3.6 - 5.1 [facility] g/dL [place] Globulin, total 2.6 1.9 - 3.7 [facility] g/dL (calc) [place] Albumin/globulin 1.6 1.0 - 2.5 [facility] ratio (calc) [place] Total bilirubin 0.4 0.2 - 1.2 [facility] mg/dL [place] Alkaline 46 40 - 115 U/L [facility] phosphatase [place] AST 21 10 - 35 U/L [facility] [place] ALT 26 9 - 46 U/L [facility] [place] Specimen Blood Narrative Performed At FASTING:YES [facility] FASTING: YES Resulting Agency Comment Performing Organization Information: Site ID: [id number] Name: [facility] Address: [address] [place] [phone] Director: Mitzi Lyons Performing Organization Address City/State/Zipcode Phone Number [employer] [place] [address] [employer], [place] [id number] after 07/06/2018 Advance Directives For more information, please contact: [phone] Type Date Recorded Patient Distribution Center Associate Explanation Advance Directives, Living Will and Medical Power of Manager Code
--- OUTSIDE RECORDS SUMMARY | 2019-07-07 15:10 | XMS REPORT ---
:1955 Author Organization [facility] Address [address] [place] [address] Care Team Providers Name Role Phone MARK [...] Value Reference Range Comments CULTURE (BEAKER) (test rpfi=8356) No growth in 5 days BLOOD [id number] 20:01:00 Test Item Value Reference Range Comments CULTURE (BEAKER) (test ddms=9065) No growth in 5 days POCT-GLUCOSE [id number] 12:13:00 Test Item Value Reference Range Comments POC-GLUCOSE METER (BEAKER) 143 mg/dL 70-110 TESTED AT [facility] [address] [facility] (test onhk=8376) [facility] [address] SPUTUM CULTURE + GRAM [id number] 10:30:00 Test Item Value Reference Range Comments CULTURE (BEAKER) (test See comment imen=1728) GRAM STAIN RESULT (BEAKER) 2+ WBCs (test txnz=9087) GRAM STAIN RESULT (BEAKER) 0-5 epithelial cells (test ybxu=58395) GRAM STAIN RESULT (BEAKER) 1+ gram negative rods (test nqmv=917984) GRAM STAIN RESULT (BEAKER) 1+ gram positive cocci in (test dejr=931962) clusters 3+ Normal respiratory davie presentWOUND CULTURE + GRAM [id number] 09:53:00 Test Item Value Reference Range Comments CULTURE (BEAKER) (test STAPHYLOCOCCUS AUREUS <1+ Staphylococcus tpwp=6343) aureus Clindamycin (test code=10) Erythromycin (test code=4) Linezolid (test code=40) Nitrofurantoin (test code=23) Oxacillin (test code=14) Rifampin (test code=43) Tetracycline (test code=2) Trimethoprim + Sulfamethoxazole (test code=47) Vancomycin (test code=13) GRAM STAIN RESULT No WBCs (BEAKER) (test xufy=4456) GRAM STAIN RESULT No organisms seen (BEAKER) (test vzyi=185785) POCT-GLUCOSE [id number] 08:04:00 Test Item Value Reference Range Comments POC-GLUCOSE METER (BEAKER) 162 mg/dL 70-110 TESTED AT [address] (test mnek=9786) [facility] [address] POCT-GLUCOSE [id number] 21:15:00 Test Item Value Reference Range Comments POC-GLUCOSE METER (BEAKER) 274 mg/dL 70-110 TESTED AT [address] (test pgil=5434) [facility] [address] POCT-GLUCOSE [id number] 17:23:00 Test Item Value Reference Range Comments POC-GLUCOSE METER (BEAKER) 169 mg/dL 70-110 TESTED AT [address] (test afse=2976) [facility] [address] POCT-GLUCOSE [id number] 12:24:00 Test Item Value Reference Range Comments POC-GLUCOSE METER (BEAKER) 182 mg/dL 70-110 TESTED AT [address] (test myxl=7377) [facility] [address] RAD, CHEST, 1 VIEW, NON [id number] 08:36:00Reason for exam:->SHORTNESS OF BREATHShould this be performed at the bedside?->YesFINAL REPORT CLINICAL HISTORY: SHORTNESS OF BREATH TECHNIQUE: 1 view of the chest. COMPARISON: 04/23/2019 IMPRESSION: There is new/increased left lung base consolidation. There isright basilar atelectasis. Subpulmonic pleural effusions cannot be excluded. The cardiomediastinal silhouette is magnified by technique with sternotomy wires. Signed: Yimi Harkins MDReport Verified Date/Time: 08:36:14 Reading Location: [facility] Radiology Reading Room POCT- GLUCOSE [id number] 07:40:00 Test Item Value Reference Range Comments POC-GLUCOSE METER (BEAKER) 119 mg/dL 70-110 TESTED AT [facility] [address] (test hbpf=5999) [facility] [address] [id number] 03:28:00 Test Item Value Reference Range Comments MAGNESIUM (BEAKER) (test itkq=597) 2.0 mg/dL 1.6-2.6 BASIC METABOLIC [id number] 03:28:00 Test Item Value Reference Range Comments SODIUM (BEAKER) (test 138 meq/L 136-145 mnvh=710) POTASSIUM (BEAKER) (test 3.9 meq/L 3.5-5.1 szqq=029) CHLORIDE (BEAKER) (test 104 meq/L 98-107 cisx=287) CO2 (BEAKER) (test 25 meq/L 22-29 qqdf=609) BLOOD UREA NITROGEN 9 mg/dL 7-21 (BEAKER) (test bmzd=679) CREATININE (BEAKER) (test 0.69 mg/dL 0.57-1.25 wdvr=260) GLUCOSE RANDOM (BEAKER) 168 mg/dL 70-105 (test ybck=753) CALCIUM (BEAKER) (test 8.3 mg/dL 8.4-10.2 ctrr=331) EGFR (BEAKER) (test 115 mL/min/1.73 sq m ESTIMATED GFR IS NOT czkc=5845) ACCURATE CREATININE CLEARANCE IN PREDICTING GLOMERULAR FILTRATION RATE. ESTIMATED GFR IS NOT APPLICABLE FOR DIALYSIS PATIENTS. CBC W/PLT COUNT & AUTO [id number] 03:00:00 Test Item Value Reference Range Comments WHITE BLOOD CELL COUNT (BEAKER) (test ltgu=274) 6.6 K/ L 3.5-10.5 RED BLOOD CELL COUNT (BEAKER) (test ofok=101) 3.92 M/ L 4.63-6.08 HEMOGLOBIN (BEAKER) (test wwfb=456) 11.7 GM/DL 13.7-17.5 HEMATOCRIT (BEAKER) (test hkad=867) 36.2 % 40.1-51.0 MEAN CORPUSCULAR VOLUME (BEAKER) (test nhcz=045) 92.3 fL 79.0-92.2 MEAN CORPUSCULAR HEMOGLOBIN (BEAKER) (test 29.8 pg 25.7-32.2 riot=155) MEAN CORPUSCULAR HEMOGLOBIN CONC (BEAKER) (test 32.3 GM/DL 32.3-36.5 ktet=044) RED CELL DISTRIBUTION WIDTH (BEAKER) (test 13.0 % 11.6-14.4 epte=312) PLATELET COUNT (BEAKER) (test qbyy=261) 246 K/CU MM 150-450 MEAN PLATELET VOLUME (BEAKER) (test yvan=862) 8.5 fL 9.4-12.4 NUCLEATED RED BLOOD CELLS (BEAKER) (test 0 /100 WBC 0-0 grhs=944) NEUTROPHILS RELATIVE PERCENT (BEAKER) (test 60 % iwmf=030) LYMPHOCYTES RELATIVE PERCENT (BEAKER) (test 28 % ppza=515) MONOCYTES RELATIVE PERCENT (BEAKER) (test 7 % nvkm=681) EOSINOPHILS RELATIVE PERCENT (BEAKER) (test 4 % zanc=261) BASOPHILS RELATIVE PERCENT (BEAKER) (test 0 % gimv=152) NEUTROPHILS ABSOLUTE COUNT (BEAKER) (test 4.01 K/ L 1.78-5.38 umkx=458) LYMPHOCYTES ABSOLUTE COUNT (BEAKER) (test 1.86 K/ L 1.32-3.57 ipbr=824) MONOCYTES ABSOLUTE COUNT (BEAKER) (test 0.47 K/ L 0.30-0.82 pwqe=642) EOSINOPHILS ABSOLUTE COUNT (BEAKER) (test 0.26 K/ L 0.04-0.54 sdzh=289) BASOPHILS ABSOLUTE COUNT (BEAKER) (test 0.02 K/ L 0.01-0.08 ozwd=127) IMMATURE GRANULOCYTES-RELATIVE PERCENT (BEAKER) 0 % 0-1 (test smof=4635) POCT-GLUCOSE [id number] 21:36:00 Test Item Value Reference Range Comments POC-GLUCOSE METER (BEAKER) 273 mg/dL 70-110 TESTED AT [address] (test ytaw=7516) [place] [address] POCT-GLUCOSE [id number] 17:43:00 Test Item Value Reference Range Comments POC-GLUCOSE METER (BEAKER) 239 mg/dL 70-110 TESTED AT [address] (test pdck=2297) [place] [address] [id number] 14:55:00 Test Item Value Reference Range Comments POTASSIUM (BEAKER) (test kunu=711) 3.5 meq/L 3.5-5.1 Check Serum Potassium level 2 hours after oral potassium replacement completed or 30 min after intravenous potassium replacement.[id number] 14:55:00 Test Item Value Reference Range Comments MAGNESIUM (BEAKER) (test sxup=882) 2.0 mg/dL 1.6-2.6 Check Serum Potassium level 2 hours after oral potassium replacement completed or 30 min after intravenous potassium replacement.HEMOGLOBIN [id number] 12:05 :00 Test Item Value Reference Range Comments HEMOGLOBIN A1C (BEAKER) (test byji=863) 6.8 % 4.3-6.1 POCT-GLUCOSE [id number] 11:38:00 Test Item Value Reference Range Comments POC-GLUCOSE METER (BEAKER) 187 mg/dL 70-110 TESTED AT [address] (test jpxx=0397) [place] [address] C. DIFFICILE GDH [id number] 10:53:00 Test Item Value Reference Range Comments CDT TOXIN (test Negative Negative anfx=[id number]) CDT GDH ANTIGEN (test Negative Negative No indication of Clostridium faap=[id number]) difficile infection and no colonization. Discontinue enteric isolation and therapy. Testing performed by [employer] Rapid Cassette Assay. For GDH, published sensitivity of the assay is 98.7% compared to cytotoxicity testing. For Toxin AB, published sensitivity is 87.8% and specificity 99.4% compared to cytotoxicity testing.Verification of kit performance was done by the [facility] Microbiology Lab prior to clinical use.POCT-GLUCOSE [id number] 07:48:00 Test Item Value Reference Range Comments POC-GLUCOSE METER (BEAKER) 191 mg/dL 70-110 TESTED AT [address] (test wcxl=7543) [place] [address] TSH/FREE T4 IF [id number] 07:01:00 Test Item Value Reference Range Comments THYROID STIMULATING HORMONE (BEAKER) (test 0.79 uIU/mL 0.35-4.94 ddty=814) [id number] 06:52:00 Test Item Value Reference Range Comments MAGNESIUM (BEAKER) (test ytki=592) 2.2 mg/dL 1.6-2.6 BASIC METABOLIC [id number] 06:52:00 Test Item Value Reference Range Comments SODIUM (BEAKER) (test 138 meq/L 136-145 shak=412) POTASSIUM (BEAKER) (test 4.0 meq/L 3.5-5.1 rpme=088) CHLORIDE (BEAKER) (test 103 meq/L 98-107 nmyi=753) CO2 (BEAKER) (test 27 meq/L 22-29 iwwk=502) BLOOD UREA NITROGEN 8 mg/dL 7-21 (BEAKER) (test owzo=822) CREATININE (BEAKER) (test 0.71 mg/dL 0.57-1.25 ymxj=439) GLUCOSE RANDOM (BEAKER) 207 mg/dL 70-105 (test wjlv=908) CALCIUM (BEAKER) (test 8.8 mg/dL 8.4-10.2 jwgo=948) EGFR (BEAKER) (test 111 mL/min/1.73 sq m ESTIMATED GFR IS NOT goha=4514) ACCURATE CREATININE CLEARANCE IN PREDICTING GLOMERULAR FILTRATION RATE. ESTIMATED GFR IS NOT APPLICABLE FOR DIALYSIS PATIENTS. CBC W/PLT COUNT & AUTO [id number] 05:55:00 Test Item Value Reference Range Comments WHITE BLOOD CELL COUNT (BEAKER) (test ublw=908) 6.1 K/ L 3.5-10.5 RED BLOOD CELL COUNT (BEAKER) (test kblx=853) 4.02 M/ L 4.63-6.08 HEMOGLOBIN (BEAKER) (test rdwe=504) 11.9 GM/DL 13.7-17.5 HEMATOCRIT (BEAKER) (test yoij=335) 36.9 % 40.1-51.0 MEAN CORPUSCULAR VOLUME (BEAKER) (test oohi=156) 91.8 fL 79.0-92.2 MEAN CORPUSCULAR HEMOGLOBIN (BEAKER) (test 29.6 pg 25.7-32.2 bzei=534) MEAN CORPUSCULAR HEMOGLOBIN CONC (BEAKER) (test 32.2 GM/DL 32.3-36.5 wtiw=127) RED CELL DISTRIBUTION WIDTH (BEAKER) (test 13.0 % 11.6-14.4 agfh=648) PLATELET COUNT (BEAKER) (test bbaa=549) 298 K/CU MM 150-450 MEAN PLATELET VOLUME (BEAKER) (test hbzs=349) 8.5 fL 9.4-12.4 NUCLEATED RED BLOOD CELLS (BEAKER) (test 0 /100 WBC 0-0 jowt=494) NEUTROPHILS RELATIVE PERCENT (BEAKER) (test 69 % kamb=094) LYMPHOCYTES RELATIVE PERCENT (BEAKER) (test 22 % xjya=260) MONOCYTES RELATIVE PERCENT (BEAKER) (test 7 % iddu=033) EOSINOPHILS RELATIVE PERCENT (BEAKER) (test 1 % babf=680) BASOPHILS RELATIVE PERCENT (BEAKER) (test 0 % lpqu=437) NEUTROPHILS ABSOLUTE COUNT (BEAKER) (test 4.23 K/ L 1.78-5.38 fuwk=272) LYMPHOCYTES ABSOLUTE COUNT (BEAKER) (test 1.37 K/ L 1.32-3.57 ldmr=172) MONOCYTES ABSOLUTE COUNT (BEAKER) (test 0.42 K/ L 0.30-0.82 ohtn=133) EOSINOPHILS ABSOLUTE COUNT (BEAKER) (test 0.07 K/ L 0.04-0.54 momf=279) BASOPHILS ABSOLUTE COUNT (BEAKER) (test 0.02 K/ L 0.01-0.08 desi=237) IMMATURE GRANULOCYTES-RELATIVE PERCENT (BEAKER) 0 % 0-1 (test uyze=5862) RAD, CHEST, 1 VIEW, NON [id number] 05:45:00Reason for exam:->SHORTNESS OF BREATHShould this be performed at the bedside?->YesFINAL REPORT RAD, CHEST, 1 VIEW, NON DEPT INDICATION: SHORTNESS OF BREATH COMPARISON: Prior day's exam FINDINGS: Portable frontal view of the chest. IMPRESSION: Lungs and pleura: Unchanged airspace and pleural opacities. No pneumothorax.Heart and mediastinum: Stable contours.Stable surgical changes.Additional findings: None. Signed: Ozzie Avila Verified Date/Time: 04/23/2019 05:45:08 POCT-GLUCOSE [id number] 22:28:00 Test Item Value Reference Range Comments POC-GLUCOSE METER (BEAKER) 241 mg/dL 70-110 TESTED AT [address] (test iknr=6446) [facility] [address] [id number] 20:51:00 Test Item Value Reference Range Comments MAGNESIUM (BEAKER) (test divq=515) 1.8 mg/dL 1.6-2.6 CALCIUM, [id number] 20:38:00 Test Item Value Reference Range Comments CALCIUM IONIZED (BEAKER) (test kise=585) 1.08 mmol/L 1.12-1.27 PH, BLOOD (BEAKER) (test ktta=0777) 7.39 POTASSIUM-STAT [id number] 20:37:00 Test Item Value Reference Range Comments POTASSIUM (BEAKER) (test sjkx=037) 3.5 meq/L 3.6-5.5 POCT-GLUCOSE [id number] 18:32:00 Test Item Value Reference Range Comments POC-GLUCOSE METER (BEAKER) 260 mg/dL 70-110 TESTED AT [address] (test bqpv=6963) [place] [address] POCT-GLUCOSE [id number] 12:42:00 Test Item Value Reference Range Comments POC-GLUCOSE METER (BEAKER) 187 mg/dL 70-110 TESTED AT [address] (test voqx=5851) [facility] [address] CBC W/PLT COUNT & AUTO [id number] 10:15:00 Test Item Value Reference Range Comments WHITE BLOOD CELL COUNT (BEAKER) (test fctq=074) 3.7 K/ L 3.5-10.5 RED BLOOD CELL COUNT (BEAKER) (test xtef=025) 3.91 M/ L 4.63-6.08 HEMOGLOBIN (BEAKER) (test opjc=722) 11.6 GM/DL 13.7-17.5 HEMATOCRIT (BEAKER) (test dawu=021) 35.3 % 40.1-51.0 MEAN CORPUSCULAR VOLUME (BEAKER) (test oobd=919) 90.3 fL 79.0-92.2 MEAN CORPUSCULAR HEMOGLOBIN (BEAKER) (test 29.7 pg 25.7-32.2 bsjn=701) MEAN CORPUSCULAR HEMOGLOBIN CONC (BEAKER) (test 32.9 GM/DL 32.3-36.5 dvwc=335) RED CELL DISTRIBUTION WIDTH (BEAKER) (test 13.1 % 11.6-14.4 hetb=615) PLATELET COUNT (BEAKER) (test kisj=860) 279 K/CU MM 150-450 MEAN PLATELET VOLUME (BEAKER) (test pzbq=982) 8.6 fL 9.4-12.4 NUCLEATED RED BLOOD CELLS (BEAKER) (test 0 /100 WBC 0-0 vxmq=758) (CELLAVISION MANUAL DIFF)2019-04-22 10:15:00 Test Item Value Reference Range Comments NEUTROPHILS - REL (CELLAVISION)(BEAKER) (test 74 % vjou=2725) LYMPHOCYTES - REL (CELLAVISION)(BEAKER) (test 17 % nlnt=7365) MONOCYTES - REL (CELLAVISION)(BEAKER) (test 6 % uyoa=5877) BASOPHILS - REL (CELLAVISION)(BEAKER) (test 2 % ojfe=3612) BANDS - REL (CELLAVISION)(BEAKER) (test tkkb=7970) 1 % 0-10 NEUTROPHILS - ABS (CELLAVISION)(BEAKER) (test 2.74 K/ul 1.78-5.38 gyit=8109) LYMPHOCYTES - ABS (CELLAVISION)(BEAKER) (test 0.63 K/ul 1.32-3.57 fxrv=9246) MONOCYTES - ABS (CELLAVISION)(BEAKER) (test 0.22 K/uL 0.30-0.82 tyag=4523) BASOPHILS - ABS (CELLAVISION)(BEAKER) (test 0.07 K/uL 0.01-0.08 yxlq=2676) BANDS - ABS (CELLAVISION)(BEAKER) (test iokr=1660) 0.04 K/uL 0.00-0.80 TOTAL COUNTED (BEAKER) (test qyke=0804) 100 WBC MORPHOLOGY (BEAKER) (test nhmh=555) Normal PLT MORPHOLOGY (BEAKER) (test xllb=480) Normal ANISOCYTOSIS (BEAKER) (test qobx=697) 1+ few MICROCYTES (BEAKER) (test nmpm=961) 1+ few ARTIFACT (CELLAVISION)(BEAKER) (test qkms=8001) Present PLATELET CONCENTRATION (CELLAVISION)(BEAKER) (test Adequate ahcm=0823) Received comment: User comments: Slide comments:RAD, CHEST, 1 VIEW, NON [id number] 08:02:00Reason for exam:->SHORTNESS OF BREATHShould this be performed at the bedside?->YesFINAL REPORT CLINICAL HISTORY: SHORTNESS OF BREATH TECHNIQUE: 1 view of the chest. COMPARISON: 04/21/2019 IMPRESSION: The lung volumes are again seen with bibasilar pleural-parenchymal opacities unchanged. The cardiomediastinal silhouette is magnified by technique with sternotomywires. Signed: Yimi Harkins MDReport Verified Date/Time: 04/22 08:02:38 Reading Location: [facility] Radiology Reading Room [id number] 06:04:00 Test Item Value Reference Range Comments MAGNESIUM (BEAKER) (test lzqm=775) 2.3 mg/dL 1.6-2.6 BASIC METABOLIC [id number] 06:04:00 Test Item Value Reference Range Comments SODIUM (BEAKER) (test 138 meq/L 136-145 mqdn=510) POTASSIUM (BEAKER) (test 4.2 meq/L 3.5-5.1 reqo=122) CHLORIDE (BEAKER) (test 103 meq/L 98-107 wfbb=562) CO2 (BEAKER) (test 29 meq/L 22-29 clly=096) BLOOD UREA NITROGEN 8 mg/dL 7-21 (BEAKER) (test slhs=671) CREATININE (BEAKER) (test 0.66 mg/dL 0.57-1.25 qfbc=622) GLUCOSE RANDOM (BEAKER) 201 mg/dL 70-105 (test xbtf=574) CALCIUM (BEAKER) (test 8.5 mg/dL 8.4-10.2 jmft=061) EGFR (BEAKER) (test 121 mL/min/1.73 sq m ESTIMATED GFR IS NOT vewz=7019) ACCURATE CREATININE CLEARANCE IN PREDICTING GLOMERULAR FILTRATION RATE. ESTIMATED GFR IS NOT APPLICABLE FOR DIALYSIS PATIENTS. TROPONIN [id number] 06:03:00 Test Item Value Reference Range Comments TROPONIN I (BEAKER) (test bhtr=283) 0.01 ng/mL 0.00-0.03 Troponin I (TnI) levels [...] and persistent tachyarrhythmia.CT, EXTREMITY, LOWER WITHOUT CONTRAST, [id number] 04:17:00Extend to ankleFINAL REPORT CLINICAL HISTORY: Lower [...] MDReport Verified Date/Time: 04/22/2019 04:17:42 Reading Location: [address] Reading Room Electronically signed by: BLAIR DANG M.D. on 04:17 AMCT, CHEST WITH IV CONTRAST- PE TEST [id number] 04:11: 00With and without contrast per surgical [...] MDReport Verified Date/Time: 04/22/2019 04:11:13 Reading Location: [address] Reading Room [id number] 00:10:00 Test Item Value Reference Range Comments TROPONIN I (BEAKER) (test cdhn=968) < ng/mL 0.00-0.03 Troponin I (TnI) levels [...] completed or 30 min after intravenous potassium replacement.[id number] 23:56:00 Test Item Value Reference Range Comments POTASSIUM (BEAKER) (test wrxm=825) 3.9 meq/L 3.5-5.1 Check Serum Potassium level 2 hours after oral potassium replacement completed or 30 min after intravenous potassium replacement.[id number] 23:56:00 Test Item Value Reference Range Comments MAGNESIUM (BEAKER) (test rbky=564) 1.9 mg/dL 1.6-2.6 Check Serum Potassium level 2 hours after oral potassium replacement completed or 30 min after intravenous potassium replacement.CBC W/PLT COUNT & AUTO [id number] 23:38:00 Test Item Value Reference Range Comments WHITE BLOOD CELL COUNT (BEAKER) (test ypws=452) 4.3 K/ L 3.5-10.5 RED BLOOD CELL COUNT (BEAKER) (test rkne=981) 3.86 M/ L 4.63-6.08 HEMOGLOBIN (BEAKER) (test gyhw=550) 11.6 GM/DL 13.7-17.5 HEMATOCRIT (BEAKER) (test yyyw=691) 35.3 % 40.1-51.0 MEAN CORPUSCULAR VOLUME (BEAKER) (test krha=880) 91.5 fL 79.0-92.2 MEAN CORPUSCULAR HEMOGLOBIN (BEAKER) (test 30.1 pg 25.7-32.2 czhx=678) MEAN CORPUSCULAR HEMOGLOBIN CONC (BEAKER) (test 32.9 GM/DL 32.3-36.5 fvra=974) RED CELL DISTRIBUTION WIDTH (BEAKER) (test 13.0 % 11.6-14.4 odew=364) PLATELET COUNT (BEAKER) (test trjy=738) 286 K/CU MM 150-450 MEAN PLATELET VOLUME (BEAKER) (test jivt=210) 8.6 fL 9.4-12.4 NUCLEATED RED BLOOD CELLS (BEAKER) (test 0 /100 WBC 0-0 pvhk=472) NEUTROPHILS RELATIVE PERCENT (BEAKER) (test 63 % zfjm=945) LYMPHOCYTES RELATIVE PERCENT (BEAKER) (test 25 % leyu=302) MONOCYTES RELATIVE PERCENT (BEAKER) (test 9 % poom=851) EOSINOPHILS RELATIVE PERCENT (BEAKER) (test 3 % pwgy=332) BASOPHILS RELATIVE PERCENT (BEAKER) (test 0 % zttu=340) NEUTROPHILS ABSOLUTE COUNT (BEAKER) (test 2.70 K/ L 1.78-5.38 skug=690) LYMPHOCYTES ABSOLUTE COUNT (BEAKER) (test 1.05 K/ L 1.32-3.57 tijo=256) MONOCYTES ABSOLUTE COUNT (BEAKER) (test 0.40 K/ L 0.30-0.82 cofy=186) EOSINOPHILS ABSOLUTE COUNT (BEAKER) (test 0.11 K/ L 0.04-0.54 gayt=667) BASOPHILS ABSOLUTE COUNT (BEAKER) (test 0.01 K/ L 0.01-0.08 ctpu=051) IMMATURE GRANULOCYTES-RELATIVE PERCENT (BEAKER) 1 % 0-1 (test ygfy=0565) POCT-GLUCOSE [id number] 22:02:00 Test Item Value Reference Range Comments POC-GLUCOSE METER (BEAKER) 227 mg/dL 70-110 TESTED AT [address] (test tgbg=4588) [facility] [address] [id number] 21:03:00 Test Item Value Reference Range Comments D-DIMER QUANTITATIVE (BEAKER) (test sxtb=041) 3.21 MG/L FEU <0.50 Intended Use: The [...] exclusion of thrombosis is within 95-100% range.TROPONIN [id number] 20:59:00 Test Item Value Reference Range Comments TROPONIN I (BEAKER) (test fjcq=749) < ng/mL 0.00-0.03 Troponin I (TnI) levels [...] acute neurological disease, and persistent tachyarrhythmia.HEPATIC FUNCTION [id number] 20:53: 00 Test Item Value Reference Range Comments TOTAL PROTEIN (BEAKER) (test gtvv=545) 6.8 gm/dL 6.0-8.3 ALBUMIN (BEAKER) (test epby=6204) 3.6 g/dL 3.5-5.0 BILIRUBIN TOTAL (BEAKER) (test mycx=916) 0.5 mg/dL 0.2-1.2 BILIRUBIN DIRECT (BEAKER) (test cbqr=594) 0.2 mg/dL 0.1-0.5 ALKALINE PHOSPHATASE (BEAKER) (test ozna=086) 99 U/L 40-150 AST (SGOT) (BEAKER) (test hqlf=083) 13 U/L 5-34 ALT (SGPT) (BEAKER) (test qhdu=397) 10 U/L 6-55 LACTIC ACID, [id number] 20:48:00 Test Item Value Reference Range Comments LACTATE BLOOD VENOUS (2) 1.4 mmol/L 0.5-2.2 Specimen slightly hemolyzed (BEAKER) (test tvng=1344) BLOOD GAS, [id number] 20:17:00 Test Item Value Reference Range Comments PH VENOUS (BEAKER) (test zfsb=141) 7.38 7.32-7.42 PCO2 VENOUS (BEAKER) (test zvqm=887) 52 mmHg 41-51 PO2 VENOUS (BEAKER) (test kbyb=205) 47 mmHg 25-40 O2 SATURATION VENOUS (BEAKER) (test hbbl=150) 80.9 % 40.0-70.0 HCO3 VENOUS (BEAKER) (test lbfb=558) 30 mmol/L 21-29 BASE EXCESS VENOUS (BEAKER) (test cicj=040) 3.7 mmol/L -2.0-3.0 PATIENT TEMPERATURE (BEAKER) (test avwt=1259) 37.0 C FIO2 (BEAKER) (test wlno=4671) 100.0 % [id number] 18:36:00 Test Item Value Reference Range Comments PROCALCITONIN (BEAKER) (test ofgv=4910) < ng/mL <0.05 SEPSIS RISK (ng/mL)Low: 0.05-0.50Intermediate: 0.51-2.00High: & gt;=[id number] 18:24:00 Test Item Value Reference Range Comments MAGNESIUM (BEAKER) (test mcuq=578) 0.9 mg/dL 1.6-2.6 [id number] 18:17:00 Test Item Value Reference Range Comments PHOSPHORUS (BEAKER) (test shoc=712) 2.5 mg/dL 2.3-4.7 LACTIC ACID, [id number] 18:15:00 Test Item Value Reference Range Comments LACTATE BLOOD VENOUS (2) (BEAKER) (test 2.0 mmol/L 0.5-2.2 jqba=3265) PROTHROMBIN TIME/[id number] 18:09:00 Test Item Value Reference Range Comments PROTIME (BEAKER) (test zyyu=200) 15.8 seconds 11.9-14.2 INR (BEAKER) (test cgxy=280) 1.3 <=5.9 Effective 03/27/2019: PT Reference Range ChangeNew: 11.9-14.2 Previous: 11.7- 14.7RECOMMENDED COUMADIN/WARFARIN INR THERAPY RANGESSTANDARD DOSE: 2.0-3.0 Includes: PROPHYLAXIS for venous thrombosis, systemic embolization; TREATMENT for venous thrombosis and/or pulmonary embolus.HIGH RISK: Target INR is2.5-3.5 for patients wiht mechanical heart valves.OXYGEN SATURATION, [id number] 18:04:00 Test Item Value Reference Range Comments O2 SATURATION (MEASURED) (BEAKER) (test ibxe=1767) 84.9 % If patient has internal jugular ( IJ) or subclavian central line or PICC line. Draw from distal port. Label as central venous oxygen.TROPONIN [id number] 16:28 :00 Test Item Value Reference Range Comments TROPONIN I (BEAKER) (test kqiv=311) < ng/mL 0.00-0.03 Troponin I (TnI) levels [...] acute neurological disease, and persistent tachyarrhythmia.POCT-LACTIC ACID, [id number] 16:27 :00 Test Item Value Reference Range Comments POC-LACTIC ACID, VENOUS 3.3 mmol/L 0.9-1.7 TESTED AT [facility] [address] (BEAKER) (test buud=3765) [facility] [address] BASIC METABOLIC [id number] 16:19:00 Test Item Value Reference Range Comments SODIUM (BEAKER) (test 134 meq/L 136-145 axba=343) POTASSIUM (BEAKER) (test 4.5 meq/L 3.5-5.1 Specimen moderately lmbw=609) hemolyzed CHLORIDE (BEAKER) (test 101 meq/L 98-107 jmpr=505) CO2 (BEAKER) (test 22 meq/L 22-29 kepz=887) BLOOD UREA NITROGEN 9 mg/dL 7-21 (BEAKER) (test jtsx=536) CREATININE (BEAKER) (test 0.75 mg/dL 0.57-1.25 Specimen moderately vfnx=692) hemolyzed GLUCOSE RANDOM (BEAKER) 181 mg/dL 70-105 (test vcol=863) CALCIUM (BEAKER) (test 8.7 mg/dL 8.4-10.2 vddf=691) EGFR (BEAKER) (test 105 mL/min/1.73 sq m ESTIMATED GFR IS NOT qvut=7802) ACCURATE CREATININE CLEARANCE IN PREDICTING GLOMERULAR FILTRATION RATE. ESTIMATED GFR IS NOT APPLICABLE FOR DIALYSIS PATIENTS. BLOOD GAS, [id number] 16:10:00 Test Item Value Reference Range Comments PH ARTERIAL (BEAKER) (test ntvl=173) 7.43 7.35-7.45 PCO2 ARTERIAL (BEAKER) (test qjqh=055) 43 mmHg 35-45 PO2 ARTERIAL (BEAKER) (test eyrk=437) 141 mmHg 80-90 O2 SATURATION ARTERIAL (BEAKER) (test lxei=205) 98.9 % 96.0-97.0 HCO3 ARTERIAL (BEAKER) (test cwxd=921) 28 mmol/L 21-29 BASE EXCESS ARTERIAL (BEAKER) (test tejq=004) 3.1 mmol/L -2.0-3.0 PATIENT TEMPERATURE (BEAKER) (test nkie=5437) 36.5 C FIO2 (BEAKER) (test egwl=6480) 60.0 % RAD, CHEST, 1 VIEW, NON [id number] 16:08:00Reason for exam:->SHORTNESS OF BREATHShould this be performed at the bedside?->YesFINAL REPORT Comparison: 04/07/2019 TECHNIQUE: Single view of the chest FINDINGS: Lung volumes are low. Bibasilar opacities may represent small pleural effusions with adjacent airspace disease. Cardiac silhouette is enlarged. Post surgical changes in the mediastinum. No acute skeletal abnormality. Signed: Shailesh Harding MDReport Verified Date/Time: 04/21/2019 16:08:26 Reading Location: [address] Transitional Reading Room POCT-GLUCOSE [id number] 13:16:00 Test Item Value Reference Range Comments POC-GLUCOSE METER (BEAKER) 231 mg/dL 70-110 TESTED AT [address] (test stef=3516) [place] [id number] POCT-GLUCOSE [id number] 07:07:00 Test Item Value Reference Range Comments POC-GLUCOSE METER (BEAKER) 157 mg/dL 70-110 TESTED AT [address] (test egir=1041) [facility] [address] [id number] 05:11:00 Test Item Value Reference Range Comments MAGNESIUM (BEAKER) (test ownt=361) 2.0 mg/dL 1.6-2.6 BASIC METABOLIC [id number] 05:11:00 Test Item Value Reference Range Comments SODIUM (BEAKER) (test 137 meq/L 136-145 xgrv=106) POTASSIUM (BEAKER) (test 3.8 meq/L 3.5-5.1 bjvh=458) CHLORIDE (BEAKER) (test 101 meq/L 98-107 bjxw=868) CO2 (BEAKER) (test 28 meq/L 22-29 pvub=719) BLOOD UREA NITROGEN 10 mg/dL 7-21 (BEAKER) (test pizw=624) CREATININE (BEAKER) (test 0.66 mg/dL 0.57-1.25 eedr=191) GLUCOSE RANDOM (BEAKER) 164 mg/dL 70-105 (test dcve=509) CALCIUM (BEAKER) (test 8.6 mg/dL 8.4-10.2 xpla=989) EGFR (BEAKER) (test 121 mL/min/1.73 sq m ESTIMATED GFR IS NOT khkh=0496) ACCURATE CREATININE CLEARANCE IN PREDICTING GLOMERULAR FILTRATION RATE. ESTIMATED GFR IS NOT APPLICABLE FOR DIALYSIS PATIENTS. CBC W/PLT COUNT & AUTO [id number] 04:45:00 Test Item Value Reference Range Comments WHITE BLOOD CELL COUNT (BEAKER) (test heve=027) 8.5 K/ L 3.5-10.5 RED BLOOD CELL COUNT (BEAKER) (test euib=070) 3.52 M/ L 4.63-6.08 HEMOGLOBIN (BEAKER) (test igcm=027) 10.7 GM/DL 13.7-17.5 HEMATOCRIT (BEAKER) (test tgyc=422) 31.9 % 40.1-51.0 MEAN CORPUSCULAR VOLUME (BEAKER) (test zjtr=255) 90.6 fL 79.0-92.2 MEAN CORPUSCULAR HEMOGLOBIN (BEAKER) (test 30.4 pg 25.7-32.2 gdpl=301) MEAN CORPUSCULAR HEMOGLOBIN CONC (BEAKER) (test 33.5 GM/DL 32.3-36.5 rzww=279) RED CELL DISTRIBUTION WIDTH (BEAKER) (test 12.8 % 11.6-14.4 weti=950) PLATELET COUNT (BEAKER) (test lwym=299) 262 K/CU MM 150-450 MEAN PLATELET VOLUME (BEAKER) (test sqfh=982) 8.8 fL 9.4-12.4 NUCLEATED RED BLOOD CELLS (BEAKER) (test 0 /100 WBC 0-0 wlot=238) NEUTROPHILS RELATIVE PERCENT (BEAKER) (test 68 % xxli=520) LYMPHOCYTES RELATIVE PERCENT (BEAKER) (test 19 % oesi=042) MONOCYTES RELATIVE PERCENT (BEAKER) (test 9 % nwsa=254) EOSINOPHILS RELATIVE PERCENT (BEAKER) (test 3 % etgo=363) BASOPHILS RELATIVE PERCENT (BEAKER) (test 0 % yawa=367) NEUTROPHILS ABSOLUTE COUNT (BEAKER) (test 5.76 K/ L 1.78-5.38 bxip=476) LYMPHOCYTES ABSOLUTE COUNT (BEAKER) (test 1.64 K/ L 1.32-3.57 fwdf=882) MONOCYTES ABSOLUTE COUNT (BEAKER) (test 0.73 K/ L 0.30-0.82 tqgs=168) EOSINOPHILS ABSOLUTE COUNT (BEAKER) (test 0.25 K/ L 0.04-0.54 jiti=646) BASOPHILS ABSOLUTE COUNT (BEAKER) (test 0.03 K/ L 0.01-0.08 mqvw=867) IMMATURE GRANULOCYTES-RELATIVE PERCENT (BEAKER) 1 % 0-1 (test xgdm=2684) POCT-GLUCOSE [id number] 22:03:00 Test Item Value Reference Range Comments POC-GLUCOSE METER (BEAKER) 187 mg/dL 70-110 TESTED AT [address] (test evaw=1371) [place] [address] POCT-GLUCOSE [id number] 17:09:00 Test Item Value Reference Range Comments POC-GLUCOSE METER (BEAKER) 265 mg/dL 70-110 TESTED AT [address] (test puyd=6894) [place] [address] LACTIC ACID, [id number] 13:50:00 Test Item Value Reference Range Comments LACTATE BLOOD VENOUS (2) 1.4 mmol/L 0.5-2.2 Specimen slightly hemolyzed (BEAKER) (test tkfm=9459) [id number] 12:18:00 Test Item Value Reference Range Comments MAGNESIUM (BEAKER) (test ipby=253) 1.5 mg/dL 1.6-2.6 BASIC METABOLIC [id number] 12:18:00 Test Item Value Reference Range Comments SODIUM (BEAKER) (test 134 meq/L 136-145 yruu=374) POTASSIUM (BEAKER) (test 3.5 meq/L 3.5-5.1 rbww=109) CHLORIDE (BEAKER) (test 98 meq/L 98-107 gdpr=871) CO2 (BEAKER) (test 26 meq/L 22-29 uocm=193) BLOOD UREA NITROGEN 13 mg/dL 7-21 (BEAKER) (test cuoa=612) CREATININE (BEAKER) (test 0.68 mg/dL 0.57-1.25 izqd=582) GLUCOSE RANDOM (BEAKER) 209 mg/dL 70-105 (test zdlb=219) CALCIUM (BEAKER) (test 8.5 mg/dL 8.4-10.2 gdci=645) EGFR (BEAKER) (test 117 mL/min/1.73 sq m ESTIMATED GFR IS NOT tvhi=5599) ACCURATE CREATININE CLEARANCE IN PREDICTING GLOMERULAR FILTRATION RATE. ESTIMATED GFR IS NOT APPLICABLE FOR DIALYSIS PATIENTS. POCT-GLUCOSE [id number] 12:07:00 Test Item Value Reference Range Comments POC-GLUCOSE METER (BEAKER) 222 mg/dL 70-110 TESTED AT [facility] [address] [facility] (test vxgv=0631) [facility] [address] CBC W/PLT COUNT & AUTO [id number] 12:02:00 Test Item Value Reference Range Comments WHITE BLOOD CELL COUNT (BEAKER) (test cegh=493) 9.9 K/ L 3.5-10.5 RED BLOOD CELL COUNT (BEAKER) (test caac=786) 3.65 M/ L 4.63-6.08 HEMOGLOBIN (BEAKER) (test qmew=582) 11.2 GM/DL 13.7-17.5 HEMATOCRIT (BEAKER) (test zttk=546) 32.5 % 40.1-51.0 MEAN CORPUSCULAR VOLUME (BEAKER) (test clju=791) 89.0 fL 79.0-92.2 MEAN CORPUSCULAR HEMOGLOBIN (BEAKER) (test 30.7 pg 25.7-32.2 vkuz=428) MEAN CORPUSCULAR HEMOGLOBIN CONC (BEAKER) (test 34.5 GM/DL 32.3-36.5 aafn=836) RED CELL DISTRIBUTION WIDTH (BEAKER) (test 12.6 % 11.6-14.4 nlan=517) PLATELET COUNT (BEAKER) (test fbjy=992) 304 K/CU MM 150-450 MEAN PLATELET VOLUME (BEAKER) (test xvlj=597) 9.1 fL 9.4-12.4 NUCLEATED RED BLOOD CELLS (BEAKER) (test 0 /100 WBC 0-0 pcbb=444) NEUTROPHILS RELATIVE PERCENT (BEAKER) (test 72 % zzuw=309) LYMPHOCYTES RELATIVE PERCENT (BEAKER) (test 16 % tvim=087) MONOCYTES RELATIVE PERCENT (BEAKER) (test 8 % ypgf=369) EOSINOPHILS RELATIVE PERCENT (BEAKER) (test 2 % szsc=614) BASOPHILS RELATIVE PERCENT (BEAKER) (test 1 % yxci=459) NEUTROPHILS ABSOLUTE COUNT (BEAKER) (test 7.14 K/ L 1.78-5.38 akfs=411) LYMPHOCYTES ABSOLUTE COUNT (BEAKER) (test 1.61 K/ L 1.32-3.57 vblj=854) MONOCYTES ABSOLUTE COUNT (BEAKER) (test 0.81 K/ L 0.30-0.82 eksj=095) EOSINOPHILS ABSOLUTE COUNT (BEAKER) (test 0.22 K/ L 0.04-0.54 vtuo=281) BASOPHILS ABSOLUTE COUNT (BEAKER) (test 0.05 K/ L 0.01-0.08 ldbf=558) IMMATURE GRANULOCYTES-RELATIVE PERCENT (BEAKER) 1 % 0-1 (test ydap=3747) POCT-GLUCOSE [id number] 08:20:00 Test Item Value Reference Range Comments POC-GLUCOSE METER (BEAKER) 186 mg/dL 70-110 TESTED AT [address] (test expw=6854) [place] [address] POCT-GLUCOSE [id number] 22:28:00 Test Item Value Reference Range Comments POC-GLUCOSE METER (BEAKER) 249 mg/dL 70-110 TESTED AT [address] (test osgy=2254) [place] [address] POCT-GLUCOSE [id number] 16:58:00 Test Item Value Reference Range Comments POC-GLUCOSE METER (BEAKER) 246 mg/dL 70-110 TESTED AT [address] (test fytu=9864) [place] [address] POCT-GLUCOSE [id number] 12:30:00 Test Item Value Reference Range Comments POC-GLUCOSE METER (BEAKER) 228 mg/dL 70-110 TESTED AT [address] (test yvfe=3703) [place] [address] POCT-GLUCOSE [id number] 08:57:00 Test Item Value Reference Range Comments POC-GLUCOSE METER (BEAKER) 196 mg/dL 70-110 TESTED AT [address] (test ztqg=8062) [place] [address] [id number] 08:00:00 Test Item Value Reference Range Comments MAGNESIUM (BEAKER) (test lblw=552) 1.8 mg/dL 1.6-2.6 BASIC METABOLIC [id number] 08:00:00 Test Item Value Reference Range Comments SODIUM (BEAKER) (test 134 meq/L 136-145 fjao=137) POTASSIUM (BEAKER) (test 3.5 meq/L 3.5-5.1 glvd=064) CHLORIDE (BEAKER) (test 98 meq/L 98-107 rwlb=524) CO2 (BEAKER) (test 30 meq/L 22-29 xiah=073) BLOOD UREA NITROGEN 15 mg/dL 7-21 (BEAKER) (test gxxk=150) CREATININE (BEAKER) (test 0.66 mg/dL 0.57-1.25 zpzg=526) GLUCOSE RANDOM (BEAKER) 175 mg/dL 70-105 (test shse=748) CALCIUM (BEAKER) (test 8.5 mg/dL 8.4-10.2 cvof=476) EGFR (BEAKER) (test 121 mL/min/1.73 sq m ESTIMATED GFR IS NOT qhnk=6478) ACCURATE CREATININE CLEARANCE IN PREDICTING GLOMERULAR FILTRATION RATE. ESTIMATED GFR IS NOT APPLICABLE FOR DIALYSIS PATIENTS. CBC W/PLT COUNT & AUTO [id number] 05:01:00 Test Item Value Reference Range Comments WHITE BLOOD CELL COUNT (BEAKER) (test kxck=757) 10.7 K/ L 3.5-10.5 RED BLOOD CELL COUNT (BEAKER) (test bekp=781) 3.65 M/ L 4.63-6.08 HEMOGLOBIN (BEAKER) (test kwaz=262) 11.0 GM/DL 13.7-17.5 HEMATOCRIT (BEAKER) (test rvrk=910) 33.4 % 40.1-51.0 MEAN CORPUSCULAR VOLUME (BEAKER) (test vucm=514) 91.5 fL 79.0-92.2 MEAN CORPUSCULAR HEMOGLOBIN (BEAKER) (test 30.1 pg 25.7-32.2 dmfo=163) MEAN CORPUSCULAR HEMOGLOBIN CONC (BEAKER) (test 32.9 GM/DL 32.3-36.5 ocdv=467) RED CELL DISTRIBUTION WIDTH (BEAKER) (test 12.6 % 11.6-14.4 kgej=113) PLATELET COUNT (BEAKER) (test gnaf=832) 244 K/CU MM 150-450 MEAN PLATELET VOLUME (BEAKER) (test drox=952) 9.5 fL 9.4-12.4 NUCLEATED RED BLOOD CELLS (BEAKER) (test 0 /100 WBC 0-0 jdiq=637) NEUTROPHILS RELATIVE PERCENT (BEAKER) (test 70 % kgpj=315) LYMPHOCYTES RELATIVE PERCENT (BEAKER) (test 18 % oaaz=883) MONOCYTES RELATIVE PERCENT (BEAKER) (test 9 % xtqr=632) EOSINOPHILS RELATIVE PERCENT (BEAKER) (test 3 % tyxq=988) BASOPHILS RELATIVE PERCENT (BEAKER) (test 1 % iprk=265) NEUTROPHILS ABSOLUTE COUNT (BEAKER) (test 7.44 K/ L 1.78-5.38 zziu=963) LYMPHOCYTES ABSOLUTE COUNT (BEAKER) (test 1.91 K/ L 1.32-3.57 sfpy=225) MONOCYTES ABSOLUTE COUNT (BEAKER) (test 0.92 K/ L 0.30-0.82 hvum=802) EOSINOPHILS ABSOLUTE COUNT (BEAKER) (test 0.29 K/ L 0.04-0.54 quul=091) BASOPHILS ABSOLUTE COUNT (BEAKER) (test 0.06 K/ L 0.01-0.08 fxay=357) IMMATURE GRANULOCYTES-RELATIVE PERCENT (BEAKER) 1 % 0-1 (test vxzt=1054) POCT-GLUCOSE [id number] 22:17:00 Test Item Value Reference Range Comments POC-GLUCOSE METER (BEAKER) 197 mg/dL 70-110 TESTED AT [address] (test qsnu=2753) [place] [address] POCT-GLUCOSE [id number] 17:38:00 Test Item Value Reference Range Comments POC-GLUCOSE METER (BEAKER) 226 mg/dL 70-110 TESTED AT [address] (test ylog=9157) [place] [address] POCT-GLUCOSE [id number] 12:21:00 Test Item Value Reference Range Comments POC-GLUCOSE METER (BEAKER) 194 mg/dL 70-110 TESTED AT [address] (test kpzr=6492) [place] [address] POCT-GLUCOSE [id number] 09:25:00 Test Item Value Reference Range Comments POC-GLUCOSE METER (BEAKER) 169 mg/dL 70-110 TESTED AT [address] (test hkza=8745) [place] [address] BASIC METABOLIC [id number] 06:56:00 Test Item Value Reference Range Comments SODIUM (BEAKER) (test 137 meq/L 136-145 weyl=849) POTASSIUM (BEAKER) (test 3.7 meq/L 3.5-5.1 dnre=675) CHLORIDE (BEAKER) (test 101 meq/L 98-107 lrpb=142) CO2 (BEAKER) (test 29 meq/L 22-29 xdyk=181) BLOOD UREA NITROGEN 17 mg/dL 7-21 (BEAKER) (test jgdw=637) CREATININE (BEAKER) (test 0.64 mg/dL 0.57-1.25 urvz=177) GLUCOSE RANDOM (BEAKER) 192 mg/dL 70-105 (test onep=545) CALCIUM (BEAKER) (test 8.2 mg/dL 8.4-10.2 zqwa=723) EGFR (BEAKER) (test 126 mL/min/1.73 sq m ESTIMATED GFR IS NOT gzgz=5162) ACCURATE CREATININE CLEARANCE IN PREDICTING GLOMERULAR FILTRATION RATE. ESTIMATED GFR IS NOT APPLICABLE FOR DIALYSIS PATIENTS. [id number] 06:47:00 Test Item Value Reference Range Comments MAGNESIUM (BEAKER) (test dwyz=202) 2.0 mg/dL 1.6-2.6 CBC W/PLT COUNT & AUTO [id number] 06:17:00 Test Item Value Reference Range Comments WHITE BLOOD CELL COUNT (BEAKER) (test cjys=469) 9.2 K/ L 3.5-10.5 RED BLOOD CELL COUNT (BEAKER) (test wyol=531) 3.43 M/ L 4.63-6.08 HEMOGLOBIN (BEAKER) (test ritg=092) 10.3 GM/DL 13.7-17.5 HEMATOCRIT (BEAKER) (test arhr=395) 31.3 % 40.1-51.0 MEAN CORPUSCULAR VOLUME (BEAKER) (test yawy=277) 91.3 fL 79.0-92.2 MEAN CORPUSCULAR HEMOGLOBIN (BEAKER) (test 30.0 pg 25.7-32.2 zcac=205) MEAN CORPUSCULAR HEMOGLOBIN CONC (BEAKER) (test 32.9 GM/DL 32.3-36.5 ioct=817) RED CELL DISTRIBUTION WIDTH (BEAKER) (test 12.9 % 11.6-14.4 mugb=074) PLATELET COUNT (BEAKER) (test lumx=966) 185 K/CU MM 150-450 MEAN PLATELET VOLUME (BEAKER) (test bvxk=725) 9.8 fL 9.4-12.4 NUCLEATED RED BLOOD CELLS (BEAKER) (test 0 /100 WBC 0-0 idvm=352) NEUTROPHILS RELATIVE PERCENT (BEAKER) (test 75 % trtx=893) LYMPHOCYTES RELATIVE PERCENT (BEAKER) (test 14 % fcdj=275) MONOCYTES RELATIVE PERCENT (BEAKER) (test 7 % oumw=189) EOSINOPHILS RELATIVE PERCENT (BEAKER) (test 3 % ltai=951) BASOPHILS RELATIVE PERCENT (BEAKER) (test 0 % uxov=729) NEUTROPHILS ABSOLUTE COUNT (BEAKER) (test 6.88 K/ L 1.78-5.38 ufsa=219) LYMPHOCYTES ABSOLUTE COUNT (BEAKER) (test 1.31 K/ L 1.32-3.57 ktnd=084) MONOCYTES ABSOLUTE COUNT (BEAKER) (test 0.67 K/ L 0.30-0.82 ebrc=384) EOSINOPHILS ABSOLUTE COUNT (BEAKER) (test 0.28 K/ L 0.04-0.54 zscl=280) BASOPHILS ABSOLUTE COUNT (BEAKER) (test 0.03 K/ L 0.01-0.08 fqez=413) IMMATURE GRANULOCYTES-RELATIVE PERCENT (BEAKER) 0 % 0-1 (test vrtl=7363) POCT-GLUCOSE [id number] 21:52:00 Test Item Value Reference Range Comments POC-GLUCOSE METER (BEAKER) 240 mg/dL 70-110 TESTED AT [address] (test uevm=6037) [place] [address] POCT-GLUCOSE [id number] 18:12:00 Test Item Value Reference Range Comments POC-GLUCOSE METER (BEAKER) 227 mg/dL 70-110 TESTED AT [address] (test nero=1796) [facility] [address] POCT-GLUCOSE [id number] 13:29:00 Test Item Value Reference Range Comments POC-GLUCOSE METER (BEAKER) 222 mg/dL 70-110 TESTED AT [address] (test twob=4102) [facility] [address] POCT-GLUCOSE [id number] 09:54:00 Test Item Value Reference Range Comments POC-GLUCOSE METER (BEAKER) 192 mg/dL 70-110 TESTED AT [address] (test czsy=3573) [facility] [address] [id number] 07:43:00 Test Item Value Reference Range Comments MAGNESIUM (BEAKER) (test jhqs=593) 1.8 mg/dL 1.6-2.6 BASIC METABOLIC [id number] 07:43:00 Test Item Value Reference Range Comments SODIUM (BEAKER) (test 137 meq/L 136-145 atoi=081) POTASSIUM (BEAKER) (test 3.9 meq/L 3.5-5.1 niee=926) CHLORIDE (BEAKER) (test 102 meq/L 98-107 xlun=690) CO2 (BEAKER) (test 28 meq/L 22-29 qzrt=876) BLOOD UREA NITROGEN 12 mg/dL 7-21 (BEAKER) (test kaot=882) CREATININE (BEAKER) (test 0.61 mg/dL 0.57-1.25 qsmw=863) GLUCOSE RANDOM (BEAKER) 206 mg/dL 70-105 (test zknc=866) CALCIUM (BEAKER) (test 8.5 mg/dL 8.4-10.2 wgvs=950) EGFR (BEAKER) (test 133 mL/min/1.73 sq m ESTIMATED GFR IS NOT qkyi=2234) ACCURATE CREATININE CLEARANCE IN PREDICTING GLOMERULAR FILTRATION RATE. ESTIMATED GFR IS NOT APPLICABLE FOR DIALYSIS PATIENTS. CBC W/PLT COUNT & AUTO [id number] 07:11:00 Test Item Value Reference Range Comments WHITE BLOOD CELL COUNT (BEAKER) (test qzuj=536) 11.0 K/ L 3.5-10.5 RED BLOOD CELL COUNT (BEAKER) (test lvez=170) 3.63 M/ L 4.63-6.08 HEMOGLOBIN (BEAKER) (test kzql=924) 10.8 GM/DL 13.7-17.5 HEMATOCRIT (BEAKER) (test milr=911) 33.0 % 40.1-51.0 MEAN CORPUSCULAR VOLUME (BEAKER) (test gwpf=515) 90.9 fL 79.0-92.2 MEAN CORPUSCULAR HEMOGLOBIN (BEAKER) (test 29.8 pg 25.7-32.2 yaok=117) MEAN CORPUSCULAR HEMOGLOBIN CONC (BEAKER) (test 32.7 GM/DL 32.3-36.5 fuxj=824) RED CELL DISTRIBUTION WIDTH (BEAKER) (test 13.1 % 11.6-14.4 nzjd=215) PLATELET COUNT (BEAKER) (test xdta=397) 157 K/CU MM 150-450 MEAN PLATELET VOLUME (BEAKER) (test mnld=251) 9.7 fL 9.4-12.4 NUCLEATED RED BLOOD CELLS (BEAKER) (test 0 /100 WBC 0-0 ftsf=321) NEUTROPHILS RELATIVE PERCENT (BEAKER) (test 82 % zuna=778) LYMPHOCYTES RELATIVE PERCENT (BEAKER) (test 10 % snui=807) MONOCYTES RELATIVE PERCENT (BEAKER) (test 6 % opet=102) EOSINOPHILS RELATIVE PERCENT (BEAKER) (test 1 % bscs=966) BASOPHILS RELATIVE PERCENT (BEAKER) (test 0 % oaoq=119) NEUTROPHILS ABSOLUTE COUNT (BEAKER) (test 8.94 K/ L 1.78-5.38 zouf=384) LYMPHOCYTES ABSOLUTE COUNT (BEAKER) (test 1.14 K/ L 1.32-3.57 dhrf=747) MONOCYTES ABSOLUTE COUNT (BEAKER) (test 0.68 K/ L 0.30-0.82 kpla=201) EOSINOPHILS ABSOLUTE COUNT (BEAKER) (test 0.12 K/ L 0.04-0.54 vqdu=589) BASOPHILS ABSOLUTE COUNT (BEAKER) (test 0.03 K/ L 0.01-0.08 ppas=618) IMMATURE GRANULOCYTES-RELATIVE PERCENT (BEAKER) 1 % 0-1 (test mpop=4795) RAD, CHEST, 1 VIEW, NON [id number] 04:26:00Reason for exam:->post opShould this be performed [...] [place] Verified Date/Time: 04/07/2019 04:26:24 Reading Location: [address] Reading Room POCT-GLUCOSE [id number] 23:13:00 Test Item Value Reference Range Comments POC-GLUCOSE METER (BEAKER) 219 mg/dL 70-110 TESTED AT [address] (test lxkp=5780) [facility] [address] [id number] 16:51:00 Test Item Value Reference Range Comments MAGNESIUM (BEAKER) (test 1.9 mg/dL 1.6-2.6 Specimen slightly hemolyzed vwfl=701) Check Serum Magnesium level 2 hours after IV magnesium replacement.PRN - repeat potassium levels every 1 hour until glucose level is less than 450 mg/ [id number] 16:51:00 Test Item Value Reference Range Comments POTASSIUM (BEAKER) (test 3.6 meq/L 3.5-5.1 Specimen slightly hemolyzed sdqw=849) Check Serum Magnesium level 2 hours after IV magnesium replacement.PRN - repeat potassium levels every 1 hour until glucose level is less than 450 mg/dLLACTIC ACID, [id number] 15:41:00 Test Item Value Reference Range Comments LACTATE BLOOD ARTERIAL (2) 1.7 mmol/L 0.5-2.2 Specimen slightly hemolyzed (BEAKER) (test tfya=3048) POCT-GLUCOSE [id number] 15:30:00 Test Item Value Reference Range Comments POC-GLUCOSE METER (BEAKER) 200 mg/dL 70-110 TESTED AT [address] (test xqyv=9036) [facility] [address] POCT-GLUCOSE [id number] 07:58:00 Test Item Value Reference Range Comments POC-GLUCOSE METER (BEAKER) 179 mg/dL 70-110 TESTED AT [address] (test ovhq=5352) [place] [address] POCT-GLUCOSE [id number] 07:32:00 Test Item Value Reference Range Comments POC-GLUCOSE METER (BEAKER) 196 mg/dL 70-110 TESTED AT [address] (test bbrf=1740) [place] [address] RAD, CHEST, 1 VIEW, NON [id number] 04:52:00Reason for exam:->post opShould this be performed [...] Signed: Ozzie Avilaeport Verified Date/Time: 04/06/2019 04:52:11 [id number] 04:06:00 Test Item Value Reference Range Comments PHOSPHORUS (BEAKER) (test mwzb=528) 3.4 mg/dL 2.3-4.7 [id number] 04:06:00 Test Item Value Reference Range Comments MAGNESIUM (BEAKER) (test cltz=604) 1.6 mg/dL 1.6-2.6 BASIC METABOLIC [id number] 04:06:00 Test Item Value Reference Range Comments SODIUM (BEAKER) (test 144 meq/L 136-145 csnh=610) POTASSIUM (BEAKER) (test 3.4 meq/L 3.5-5.1 tmhq=831) CHLORIDE (BEAKER) (test 108 meq/L 98-107 yann=013) CO2 (BEAKER) (test 26 meq/L 22-29 raoo=415) BLOOD UREA NITROGEN 10 mg/dL 7-21 (BEAKER) (test xtxi=523) CREATININE (BEAKER) (test 0.63 mg/dL 0.57-1.25 xynd=932) GLUCOSE RANDOM (BEAKER) 189 mg/dL 70-105 (test rjtl=840) CALCIUM (BEAKER) (test 8.9 mg/dL 8.4-10.2 prxc=042) EGFR (BEAKER) (test 128 mL/min/1.73 sq m ESTIMATED GFR IS NOT gnxi=7892) ACCURATE CREATININE CLEARANCE IN PREDICTING GLOMERULAR FILTRATION RATE. ESTIMATED GFR IS NOT APPLICABLE FOR DIALYSIS PATIENTS. BLOOD GAS, [id number] 03:49:00 Test Item Value Reference Range Comments PH ARTERIAL (BEAKER) (test bqsh=709) 7.46 7.35-7.45 PCO2 ARTERIAL (BEAKER) (test nukr=557) 40 mmHg 35-45 PO2 ARTERIAL (BEAKER) (test fgap=309) 64 mmHg 80-90 O2 SATURATION ARTERIAL (BEAKER) (test qkng=441) 93.2 % 96.0-97.0 HCO3 ARTERIAL (BEAKER) (test uzll=891) 27 mmol/L 21-29 BASE EXCESS ARTERIAL (BEAKER) (test jsox=667) 3.2 mmol/L -2.0-3.0 PATIENT TEMPERATURE (BEAKER) (test djmk=5616) 37.3 C FIO2 (BEAKER) (test dmeh=3589) 28.0 % CBC W/PLT COUNT & AUTO [id number] 03:29:00 Test Item Value Reference Range Comments WHITE BLOOD CELL COUNT (BEAKER) (test kbqk=563) 11.5 K/ L 3.5-10.5 RED BLOOD CELL COUNT (BEAKER) (test eopg=266) 3.68 M/ L 4.63-6.08 HEMOGLOBIN (BEAKER) (test oznr=685) 11.1 GM/DL 13.7-17.5 HEMATOCRIT (BEAKER) (test eiqg=770) 32.7 % 40.1-51.0 MEAN CORPUSCULAR VOLUME (BEAKER) (test ofjo=453) 88.9 fL 79.0-92.2 MEAN CORPUSCULAR HEMOGLOBIN (BEAKER) (test 30.2 pg 25.7-32.2 leql=799) MEAN CORPUSCULAR HEMOGLOBIN CONC (BEAKER) (test 33.9 GM/DL 32.3-36.5 aenw=759) RED CELL DISTRIBUTION WIDTH (BEAKER) (test 13.9 % 11.6-14.4 avdg=386) PLATELET COUNT (BEAKER) (test jzfi=671) 146 K/CU MM 150-450 MEAN PLATELET VOLUME (BEAKER) (test pucx=503) 9.6 fL 9.4-12.4 NUCLEATED RED BLOOD CELLS (BEAKER) (test 0 /100 WBC 0-0 fdub=616) NEUTROPHILS RELATIVE PERCENT (BEAKER) (test 81 % mcrk=440) LYMPHOCYTES RELATIVE PERCENT (BEAKER) (test 11 % pdgj=873) MONOCYTES RELATIVE PERCENT (BEAKER) (test 7 % rorj=662) EOSINOPHILS RELATIVE PERCENT (BEAKER) (test 0 % gwur=334) BASOPHILS RELATIVE PERCENT (BEAKER) (test 0 % fmln=420) NEUTROPHILS ABSOLUTE COUNT (BEAKER) (test 9.31 K/ L 1.78-5.38 qgxp=283) LYMPHOCYTES ABSOLUTE COUNT (BEAKER) (test 1.30 K/ L 1.32-3.57 khnt=828) MONOCYTES ABSOLUTE COUNT (BEAKER) (test 0.80 K/ L 0.30-0.82 ccco=595) EOSINOPHILS ABSOLUTE COUNT (BEAKER) (test 0.01 K/ L 0.04-0.54 ypnf=760) BASOPHILS ABSOLUTE COUNT (BEAKER) (test 0.03 K/ L 0.01-0.08 qygu=885) IMMATURE GRANULOCYTES-RELATIVE PERCENT (BEAKER) 0 % 0-1 (test vbmq=2644) POCT-GLUCOSE [id number] 17:09:00 Test Item Value Reference Range Comments POC-GLUCOSE METER (BEAKER) 189 mg/dL 70-110 TESTED AT [address] (test xjvj=9739) [place] [address] PLATELET AGGREGATION: FUNCTION [id number] 14:45:00 Test Item Value Reference Range Comments WEAK ADP RESULT(BEAKER) (test 60 % 60-91 kxzd=2971) PLATELET FUNCTION SCREEN 60-100% indicates normal INTERP (BEAKER) (test platelet function thyz=3917) [id number] (BEAKER) Attila Vasquez M.D. (electonic (test uhly=7578) signature) PLATELET COUNT AGG (BEAKER) 259 K/CU MM 150-450 (test mvgd=4494) Platelet Function Screen results may be falsely low with platelet counts<100, 000/cu mm.POCT-GLUCOSE [id number] 12:26:00 Test Item Value Reference Range Comments POC-GLUCOSE METER (BEAKER) 241 mg/dL 70-110 TESTED AT [address] (test zxff=5279) [place] [id number] POCT-GLUCOSE [id number] 12:26:00 Test Item Value Reference Range Comments POC-GLUCOSE METER (BEAKER) 122 mg/dL 70-110 TESTED AT [address] (test weqo=5353) [facility] [address] POCT-GLUCOSE [id number] 12:26:00 Test Item Value Reference Range Comments POC-GLUCOSE METER (BEAKER) 125 mg/dL 70-110 TESTED AT [address] (test mltn=1315) [facility] [address] POCT-GLUCOSE [id number] 12:25:00 Test Item Value Reference Range Comments POC-GLUCOSE METER (BEAKER) 128 mg/dL 70-110 TESTED AT [address] (test tnib=7874) [place] [id number] POCT-GLUCOSE [id number] 12:25:00 Test Item Value Reference Range Comments POC-GLUCOSE METER (BEAKER) 143 mg/dL 70-110 TESTED AT [address] (test pagu=1807) [place] [address] BLOOD GAS, [id number] 08:23:00 Test Item Value Reference Range Comments PH ARTERIAL (BEAKER) (test lner=915) 7.45 7.35-7.45 PCO2 ARTERIAL (BEAKER) (test agwf=360) 40 mmHg 35-45 PO2 ARTERIAL (BEAKER) (test ixbt=053) 82 mmHg 80-90 O2 SATURATION ARTERIAL (BEAKER) (test jvom=837) 96.1 % 96.0-97.0 HCO3 ARTERIAL (BEAKER) (test tvxx=192) 27 mmol/L 21-29 BASE EXCESS ARTERIAL (BEAKER) (test yiqd=753) 2.8 mmol/L -2.0-3.0 PATIENT TEMPERATURE (BEAKER) (test aqri=8873) 37.8 C FIO2 (BEAKER) (test uvbg=2331) 40.0 % POCT-GLUCOSE [id number] 06:30:00 Test Item Value Reference Range Comments POC-GLUCOSE METER (BEAKER) 159 mg/dL 70-110 TESTED AT [address] (test jfbh=7083) [facility] [address] POCT-GLUCOSE [id number] 06:22:00 Test Item Value Reference Range Comments POC-GLUCOSE METER (BEAKER) 173 mg/dL 70-110 TESTED AT [address] (test myjp=9130) [facility] [address] POCT-GLUCOSE [id number] 06:22:00 Test Item Value Reference Range Comments POC-GLUCOSE METER (BEAKER) 190 mg/dL 70-110 TESTED AT [facility] [address] [facility] (test cozr=0484) [facility] [address] POCT-GLUCOSE [id number] 06:22:00 Test Item Value Reference Range Comments POC-GLUCOSE METER (BEAKER) 189 mg/dL 70-110 TESTED AT [facility] [address] [facility] (test zsri=5997) [facility] [address] RAD, CHEST, 1 VIEW, NON [id number] 04:17:00while patient is intubated or has chest [...] Signed: Ozzie Avilaumair Verified Date/Time: 04/05/2019 04:17:27 [id number] 04:04:00 Test Item Value Reference Range Comments PHOSPHORUS (BEAKER) (test oyin=221) 2.1 mg/dL 2.3-4.7 [id number] 04:04:00 Test Item Value Reference Range Comments MAGNESIUM (BEAKER) (test zaii=818) 1.8 mg/dL 1.6-2.6 BASIC METABOLIC [id number] 04:04:00 Test Item Value Reference Range Comments SODIUM (BEAKER) (test 145 meq/L 136-145 ejhv=498) POTASSIUM (BEAKER) (test 4.0 meq/L 3.5-5.1 voxy=541) CHLORIDE (BEAKER) (test 113 meq/L 98-107 pgds=645) CO2 (BEAKER) (test 25 meq/L 22-29 hrlm=215) BLOOD UREA NITROGEN 14 mg/dL 7-21 (BEAKER) (test thlv=777) CREATININE (BEAKER) (test 0.73 mg/dL 0.57-1.25 kurc=845) GLUCOSE RANDOM (BEAKER) 171 mg/dL 70-105 (test pdjl=387) CALCIUM (BEAKER) (test 9.5 mg/dL 8.4-10.2 kzzw=737) EGFR (BEAKER) (test 108 mL/min/1.73 sq m ESTIMATED GFR IS NOT kaff=7131) ACCURATE CREATININE CLEARANCE IN PREDICTING GLOMERULAR FILTRATION RATE. ESTIMATED GFR IS NOT APPLICABLE FOR DIALYSIS PATIENTS. LACTIC ACID, [id number] 04:03:00 Test Item Value Reference Range Comments LACTATE BLOOD ARTERIAL (2) (BEAKER) (test 1.0 mmol/L 0.5-2.2 iltn=8258) CALCIUM, [id number] 03:35:00 Test Item Value Reference Range Comments CALCIUM IONIZED (BEAKER) (test rpst=943) 1.25 mmol/L 1.12-1.27 PH, BLOOD (BEAKER) (test tiue=5341) 7.49 BLOOD GAS, [id number] 03:33:00 Test Item Value Reference Range Comments PH ARTERIAL (BEAKER) (test gfbv=721) 7.47 7.35-7.45 PCO2 ARTERIAL (BEAKER) (test hlmq=490) 35 mmHg 35-45 PO2 ARTERIAL (BEAKER) (test wufs=846) 91 mmHg 80-90 O2 SATURATION ARTERIAL (BEAKER) (test trpi=204) 97.1 % 96.0-97.0 HCO3 ARTERIAL (BEAKER) (test ierv=332) 25 mmol/L 21-29 BASE EXCESS ARTERIAL (BEAKER) (test muhm=998) 1.8 mmol/L -2.0-3.0 PATIENT TEMPERATURE (BEAKER) (test vuji=5025) 38.1 C FIO2 (BEAKER) (test vwek=7901) 40.0 % CBC W/PLT COUNT & AUTO [id number] 03:31:00 Test Item Value Reference Range Comments WHITE BLOOD CELL COUNT (BEAKER) (test hjxz=166) 10.6 K/ L 3.5-10.5 RED BLOOD CELL COUNT (BEAKER) (test utbn=641) 4.00 M/ L 4.63-6.08 HEMOGLOBIN (BEAKER) (test zxan=406) 12.1 GM/DL 13.7-17.5 HEMATOCRIT (BEAKER) (test nnhc=149) 35.2 % 40.1-51.0 MEAN CORPUSCULAR VOLUME (BEAKER) (test dstj=235) 88.0 fL 79.0-92.2 MEAN CORPUSCULAR HEMOGLOBIN (BEAKER) (test 30.3 pg 25.7-32.2 qwib=820) MEAN CORPUSCULAR HEMOGLOBIN CONC (BEAKER) (test 34.4 GM/DL 32.3-36.5 zrzl=627) RED CELL DISTRIBUTION WIDTH (BEAKER) (test 13.8 % 11.6-14.4 ismp=430) PLATELET COUNT (BEAKER) (test kkdy=121) 184 K/CU MM 150-450 MEAN PLATELET VOLUME (BEAKER) (test cnfr=307) 9.4 fL 9.4-12.4 NUCLEATED RED BLOOD CELLS (BEAKER) (test 0 /100 WBC 0-0 gjrz=917) NEUTROPHILS RELATIVE PERCENT (BEAKER) (test 83 % zmvw=372) LYMPHOCYTES RELATIVE PERCENT (BEAKER) (test 9 % divs=591) MONOCYTES RELATIVE PERCENT (BEAKER) (test 7 % fslp=940) EOSINOPHILS RELATIVE PERCENT (BEAKER) (test 0 % buhu=254) BASOPHILS RELATIVE PERCENT (BEAKER) (test 0 % dvfc=167) NEUTROPHILS ABSOLUTE COUNT (BEAKER) (test 8.85 K/ L 1.78-5.38 nhaa=607) LYMPHOCYTES ABSOLUTE COUNT (BEAKER) (test 0.92 K/ L 1.32-3.57 uqxh=256) MONOCYTES ABSOLUTE COUNT (BEAKER) (test 0.78 K/ L 0.30-0.82 yapm=825) EOSINOPHILS ABSOLUTE COUNT (BEAKER) (test 0.01 K/ L 0.04-0.54 xobs=653) BASOPHILS ABSOLUTE COUNT (BEAKER) (test 0.03 K/ L 0.01-0.08 tqls=033) IMMATURE GRANULOCYTES-RELATIVE PERCENT (BEAKER) 1 % 0-1 (test cekp=0466) [id number] 01:22:00 Test Item Value Reference Range Comments MAGNESIUM (BEAKER) (test ydwx=030) 2.2 mg/dL 1.6-2.6 BASIC METABOLIC [id number] 01:22:00 Test Item Value Reference Range Comments SODIUM (BEAKER) (test 146 meq/L 136-145 ytwu=747) POTASSIUM (BEAKER) (test 4.3 meq/L 3.5-5.1 tsky=501) CHLORIDE (BEAKER) (test 113 meq/L 98-107 nqjy=946) CO2 (BEAKER) (test 24 meq/L 22-29 hthd=647) BLOOD UREA NITROGEN 15 mg/dL 7-21 (BEAKER) (test ccds=420) CREATININE (BEAKER) (test 0.73 mg/dL 0.57-1.25 nitq=203) GLUCOSE RANDOM (BEAKER) 188 mg/dL 70-105 (test bdfm=469) CALCIUM (BEAKER) (test 9.9 mg/dL 8.4-10.2 jeqr=956) EGFR (BEAKER) (test 108 mL/min/1.73 sq m ESTIMATED GFR IS NOT kgfd=5651) ACCURATE CREATININE CLEARANCE IN PREDICTING GLOMERULAR FILTRATION RATE. ESTIMATED GFR IS NOT APPLICABLE FOR DIALYSIS PATIENTS. LACTIC ACID, [id number] 01:20:00 Test Item Value Reference Range Comments LACTATE BLOOD ARTERIAL (2) 1.1 mmol/L 0.5-2.2 Specimen slightly hemolyzed (BEAKER) (test tolo=9324) CBC W/PLT COUNT & AUTO [id number] 01:06:00 Test Item Value Reference Range Comments WHITE BLOOD CELL COUNT (BEAKER) (test kaxg=063) 11.8 K/ L 3.5-10.5 RED BLOOD CELL COUNT (BEAKER) (test uvhy=559) 3.98 M/ L 4.63-6.08 HEMOGLOBIN (BEAKER) (test wird=741) 12.1 GM/DL 13.7-17.5 HEMATOCRIT (BEAKER) (test drdj=516) 34.8 % 40.1-51.0 MEAN CORPUSCULAR VOLUME (BEAKER) (test sbat=516) 87.4 fL 79.0-92.2 MEAN CORPUSCULAR HEMOGLOBIN (BEAKER) (test 30.4 pg 25.7-32.2 lxkp=146) MEAN CORPUSCULAR HEMOGLOBIN CONC (BEAKER) (test 34.8 GM/DL 32.3-36.5 ftwh=074) RED CELL DISTRIBUTION WIDTH (BEAKER) (test 13.6 % 11.6-14.4 uwot=509) PLATELET COUNT (BEAKER) (test hdpx=555) 172 K/CU MM 150-450 MEAN PLATELET VOLUME (BEAKER) (test jjhe=937) 9.4 fL 9.4-12.4 NUCLEATED RED BLOOD CELLS (BEAKER) (test 0 /100 WBC 0-0 gpgt=461) NEUTROPHILS RELATIVE PERCENT (BEAKER) (test 85 % cytc=401) LYMPHOCYTES RELATIVE PERCENT (BEAKER) (test 7 % luds=355) MONOCYTES RELATIVE PERCENT (BEAKER) (test 8 % jbgi=549) EOSINOPHILS RELATIVE PERCENT (BEAKER) (test 0 % ybrk=129) BASOPHILS RELATIVE PERCENT (BEAKER) (test 0 % tuub=610) NEUTROPHILS ABSOLUTE COUNT (BEAKER) (test 9.96 K/ L 1.78-5.38 yjdy=997) LYMPHOCYTES ABSOLUTE COUNT (BEAKER) (test 0.81 K/ L 1.32-3.57 hums=297) MONOCYTES ABSOLUTE COUNT (BEAKER) (test 0.89 K/ L 0.30-0.82 bvwl=267) EOSINOPHILS ABSOLUTE COUNT (BEAKER) (test 0.01 K/ L 0.04-0.54 fapj=363) BASOPHILS ABSOLUTE COUNT (BEAKER) (test 0.03 K/ L 0.01-0.08 hgpp=570) IMMATURE GRANULOCYTES-RELATIVE PERCENT (BEAKER) 1 % 0-1 (test xpyf=1251) BLOOD GAS, [id number] 00:53:00 Test Item Value Reference Range Comments PH ARTERIAL (BEAKER) (test ipby=793) 7.45 7.35-7.45 PCO2 ARTERIAL (BEAKER) (test iqkz=952) 38 mmHg 35-45 PO2 ARTERIAL (BEAKER) (test fcqg=202) 108 mmHg 80-90 O2 SATURATION ARTERIAL (BEAKER) (test jtqa=125) 98.0 % 96.0-97.0 HCO3 ARTERIAL (BEAKER) (test xfcg=233) 26 mmol/L 21-29 BASE EXCESS ARTERIAL (BEAKER) (test wpga=365) 2.2 mmol/L -2.0-3.0 PATIENT TEMPERATURE (BEAKER) (test yhsn=6622) 38.1 C FIO2 (BEAKER) (test txrw=1299) 60.0 % CALCIUM, [id number] 00:53:00 Test Item Value Reference Range Comments CALCIUM IONIZED (BEAKER) (test vdur=463) 1.29 mmol/L 1.12-1.27 PH, BLOOD (BEAKER) (test jxqy=4245) 7.47 POCT-GLUCOSE [id number] 23:39:00 Test Item Value Reference Range Comments POC-GLUCOSE METER (BEAKER) 192 mg/dL 70-110 TESTED AT [address] (test nslx=3721) [place] [address] POCT-GLUCOSE [id number] 23:39:00 Test Item Value Reference Range Comments POC-GLUCOSE METER (BEAKER) 197 mg/dL 70-110 TESTED AT [address] (test voqq=1338) [place] [id number] POCT-GLUCOSE [id number] 23:39:00 Test Item Value Reference Range Comments POC-GLUCOSE METER (BEAKER) 185 mg/dL 70-110 TESTED AT [address] (test tabx=7851) [place] [id number] BLOOD GAS, [id number] 20:52:00 Test Item Value Reference Range Comments PH ARTERIAL (BEAKER) (test nrye=414) 7.46 7.35-7.45 PCO2 ARTERIAL (BEAKER) (test ycju=231) 38 mmHg 35-45 PO2 ARTERIAL (BEAKER) (test najm=993) 233 mmHg 80-90 O2 SATURATION ARTERIAL (BEAKER) (test wtgd=565) 99.6 % 96.0-97.0 HCO3 ARTERIAL (BEAKER) (test jpqc=060) 26 mmol/L 21-29 BASE EXCESS ARTERIAL (BEAKER) (test lcwe=851) 2.1 mmol/L -2.0-3.0 PATIENT TEMPERATURE (BEAKER) (test ihtb=4400) 37.1 C FIO2 (BEAKER) (test ddgx=6144) 80.0 % THROMBOELASTOGRAPH (TEG)2019-04-04 20:05:00 Test Item Value Reference Range Comments TEG ACTIVATED CLOTTING TIME (BEAKER) (test 6.6 minutes 4.0-7.0 najx=8143) TEG FIBRINOGEN ACTIVITY (BEAKER) (test 69.0 degrees 61.0-73.0 xnsl=5923) TEG PLT. AGGREGATION (BEAKER) (test oiyz=7844) 65.0 MM 55.0-65.0 TEG FIBRINOLYSIS (BEAKER) (test czgc=0085) 0.0 % 0.0-5.0 TGH ACTIVATED CLOTTING TIME (BEAKER) (test 7.0 minutes 4.0-7.0 vcmd=3976) TGH FIBRINOGEN ACTIVITY (BEAKER) (test 65.7 degrees 61.0-73.0 jwiv=9526) TGH PLT. AGGREGATION (BEAKER) (test mpgo=4659) 63.2 MM 55.0-65.0 TGH FIBRINOLYSIS (BEAKER) (test zdmz=3190) 0.0 % 0.0-5.0 RAD, CHEST, 1 VIEW, NON [id number] 19:07:00Reason for exam:->Status post CV Surgery post [...] MDReport Verified Date/Time: 04/04/2019 19:07:57 Reading Location: [facility] Radiology Reading Room BASI METABOLIC [id number] 18: 47:00 Test Item Value Reference Range Comments SODIUM (BEAKER) (test 149 meq/L 136-145 usif=852) POTASSIUM (BEAKER) (test 3.8 meq/L 3.5-5.1 Specimen slightly byjt=842) hemolyzed CHLORIDE (BEAKER) (test 112 meq/L 98-107 rcvz=155) CO2 (BEAKER) (test 25 meq/L 22-29 eyah=782) BLOOD UREA NITROGEN 16 mg/dL 7-21 (BEAKER) (test qmnv=105) CREATININE (BEAKER) (test 0.67 mg/dL 0.57-1.25 Specimen slightly ajzf=471) hemolyzed GLUCOSE RANDOM (BEAKER) 236 mg/dL 70-105 (test smum=669) CALCIUM (BEAKER) (test 11.1 mg/dL 8.4-10.2 llhx=032) EGFR (BEAKER) (test 119 mL/min/1.73 sq m ESTIMATED GFR IS NOT vfsi=2847) ACCURATE CREATININE CLEARANCE IN PREDICTING GLOMERULAR FILTRATION RATE. ESTIMATED GFR IS NOT APPLICABLE FOR DIALYSIS PATIENTS. [id number] 18:46:00 Test Item Value Reference Range Comments MAGNESIUM (BEAKER) (test 1.9 mg/dL 1.6-2.6 Specimen slightly hemolyzed sfag=344) [id number] 18:46:00 Test Item Value Reference Range Comments PHOSPHORUS (BEAKER) (test 4.2 mg/dL 2.3-4.7 Specimen slightly hemolyzed rbgu=340) LACTIC ACID, [id number] 18:43:00 Test Item Value Reference Range Comments LACTATE BLOOD ARTERIAL (2) 2.0 mmol/L 0.5-2.2 Specimen slightly hemolyzed (BEAKER) (test zzry=4761) [id number] 18:36:00 Test Item Value Reference Range Comments FIBRINOGEN LEVEL (BEAKER) (test dawa=816) 329 mg/dl 225-434 [id number] 18:36:00 Test Item Value Reference Range Comments PARTIAL THROMBOPLASTIN TIME (BEAKER) (test 35.0 seconds 22.5-36.0 zoyq=781) PROTHROMBIN [id number] 18:35:00 Test Item Value Reference Range Comments PROTIME (BEAKER) (test grqm=289) 16.7 seconds 11.9-14.2 INR (BEAKER) (test oalu=460) 1.4 <=5.9 Effective 03/27/2019: PT Reference Range ChangeNew: 11.9-14.2 Previous: 11.7- 14.7RECOMMENDED COUMADIN/WARFARIN INR THERAPY RANGESSTANDARD DOSE: 2.0-3.0 Includes: PROPHYLAXIS for venous thrombosis, systemic embolization; TREATMENT for venous thrombosis and/or pulmonary embolus.HIGH RISK: Target INR is2.5-3.5 for patients wiht mechanical heart valves.CBC W/PLT COUNT & AUTO [id number] 18:27:00 Test Item Value Reference Range Comments WHITE BLOOD CELL COUNT (BEAKER) (test eont=165) 10.4 K/ L 3.5-10.5 RED BLOOD CELL COUNT (BEAKER) (test fgzq=601) 4.17 M/ L 4.63-6.08 HEMOGLOBIN (BEAKER) (test izlk=963) 12.7 GM/DL 13.7-17.5 HEMATOCRIT (BEAKER) (test fydh=281) 37.4 % 40.1-51.0 MEAN CORPUSCULAR VOLUME (BEAKER) (test oyib=724) 89.7 fL 79.0-92.2 MEAN CORPUSCULAR HEMOGLOBIN (BEAKER) (test 30.5 pg 25.7-32.2 qfyg=881) MEAN CORPUSCULAR HEMOGLOBIN CONC (BEAKER) (test 34.0 GM/DL 32.3-36.5 esez=131) RED CELL DISTRIBUTION WIDTH (BEAKER) (test 13.2 % 11.6-14.4 iljh=760) PLATELET COUNT (BEAKER) (test htsl=298) 139 K/CU MM 150-450 MEAN PLATELET VOLUME (BEAKER) (test ynrm=601) 9.0 fL 9.4-12.4 NUCLEATED RED BLOOD CELLS (BEAKER) (test 0 /100 WBC 0-0 dqag=984) NEUTROPHILS RELATIVE PERCENT (BEAKER) (test 81 % zfgm=361) LYMPHOCYTES RELATIVE PERCENT (BEAKER) (test 13 % igru=476) MONOCYTES RELATIVE PERCENT (BEAKER) (test 5 % cysr=113) EOSINOPHILS RELATIVE PERCENT (BEAKER) (test 0 % cibf=663) BASOPHILS RELATIVE PERCENT (BEAKER) (test 0 % ehme=032) NEUTROPHILS ABSOLUTE COUNT (BEAKER) (test 8.37 K/ L 1.78-5.38 lrhl=616) LYMPHOCYTES ABSOLUTE COUNT (BEAKER) (test 1.39 K/ L 1.32-3.57 beyp=704) MONOCYTES ABSOLUTE COUNT (BEAKER) (test 0.49 K/ L 0.30-0.82 excl=389) EOSINOPHILS ABSOLUTE COUNT (BEAKER) (test 0.04 K/ L 0.04-0.54 hzgd=908) BASOPHILS ABSOLUTE COUNT (BEAKER) (test 0.02 K/ L 0.01-0.08 xwmv=654) IMMATURE GRANULOCYTES-RELATIVE PERCENT (BEAKER) 1 % 0-1 (test tdot=0183) BLOOD GAS, [id number] 18:24:00 Test Item Value Reference Range Comments PH ARTERIAL (BEAKER) (test anqp=039) 7.37 7.35-7.45 PCO2 ARTERIAL (BEAKER) (test uulj=642) 44 mmHg 35-45 PO2 ARTERIAL (BEAKER) (test lmah=687) 81 mmHg 80-90 O2 SATURATION ARTERIAL (BEAKER) (test wyps=786) 96.1 % 96.0-97.0 HCO3 ARTERIAL (BEAKER) (test bkiv=578) 25 mmol/L 21-29 BASE EXCESS ARTERIAL (BEAKER) (test xmzn=208) -0.8 mmol/L -2.0-3.0 PATIENT TEMPERATURE (BEAKER) (test abvf=8798) 36.2 C FIO2 (BEAKER) (test nbby=3725) 60.0 % SODIUM NA-STAT [id number] 18:24:00 Test Item Value Reference Range Comments SODIUM (BEAKER) (test vgpw=051) 147 meq/L 135-148 POTASSIUM-STAT [id number] 18:24:00 Test Item Value Reference Range Comments POTASSIUM (BEAKER) (test leri=161) 3.6 meq/L 3.6-5.5 GLUCOSE-STAT [id number] 18:24:00 Test Item Value Reference Range Comments GLUCOSE RANDOM (BEAKER) (test citf=327) 230 mg/dL 70-110 HGB/HCT (H&H) - STAT [id number] 18:24:00 Test Item Value Reference Range Comments HEMOGLOBIN (BEAKER) (test skmz=311) 13.0 g/dL 13.0-16.8 HEMATOCRIT (BEAKER) (test wsqa=936) 38.0 % 40.0-50.0 OXYGEN SATURATION, [id number] 18:24:00 Test Item Value Reference Range Comments O2 SATURATION (MEASURED) (BEAKER) (test grba=8781) 74.9 % CALCIUM, [id number] 18:23:00 Test Item Value Reference Range Comments CALCIUM IONIZED (BEAKER) (test lrnh=851) 1.44 mmol/L 1.12-1.27 PH, BLOOD (BEAKER) (test zvgx=6247) 7.36 THROMBOELASTOGRAPH (TEG)2019-04-04 17:53:00 Test Item Value Reference Range Comments TEG ACTIVATED CLOTTING TIME (BEAKER) (test 9.2 minutes 4.0-7.0 huhu=0588) TEG FIBRINOGEN ACTIVITY (BEAKER) (test 57.5 degrees 61.0-73.0 srbw=6545) TEG PLT. AGGREGATION (BEAKER) (test zyun=3803) 37.3 MM 55.0-65.0 TGH ACTIVATED CLOTTING TIME (BEAKER) (test 9.3 minutes 4.0-7.0 rfle=9880) TGH FIBRINOGEN ACTIVITY (BEAKER) (test 52.7 degrees 61.0-73.0 sxsh=8336) TGH PLT. AGGREGATION (BEAKER) (test vhuq=7695) 35.8 MM 55.0-65.0 CALCIUM, [id number] 17:28:00 Test Item Value Reference Range Comments CALCIUM IONIZED (BEAKER) (test mphz=983) 1.23 mmol/L 1.12-1.27 PH, BLOOD (BEAKER) (test pzbp=6762) 7.30 BLOOD GAS, [id number] 17:28:00 Test Item Value Reference Range Comments PH ARTERIAL (BEAKER) (test fnqd=134) 7.31 7.35-7.45 PCO2 ARTERIAL (BEAKER) (test kpsi=988) 47 mmHg 35-45 PO2 ARTERIAL (BEAKER) (test vnks=378) 72 mmHg 80-90 O2 SATURATION ARTERIAL (BEAKER) (test zqis=882) 93.8 % 96.0-97.0 HCO3 ARTERIAL (BEAKER) (test zocv=733) 23 mmol/L 21-29 BASE EXCESS ARTERIAL (BEAKER) (test adfe=964) -3.5 mmol/L -2.0-3.0 PATIENT TEMPERATURE (BEAKER) (test ztxd=0214) 36.0 C FIO2 (BEAKER) (test fntm=9750) 100.0 % GLUCOSE-STAT [id number] 17:28:00 Test Item Value Reference Range Comments GLUCOSE RANDOM (BEAKER) (test kcgj=253) 243 mg/dL 70-110 HGB/HCT (H&H) - STAT [id number] 17:28:00 Test Item Value Reference Range Comments HEMOGLOBIN (BEAKER) (test ezft=791) 12.6 g/dL 13.0-16.8 HEMATOCRIT (BEAKER) (test frie=700) 37.0 % 40.0-50.0 SODIUM NA-STAT [id number] 17:27:00 Test Item Value Reference Range Comments SODIUM (BEAKER) (test iems=215) 143 meq/L 135-148 POTASSIUM-STAT [id number] 17:27:00 Test Item Value Reference Range Comments POTASSIUM (BEAKER) (test xsqw=746) 3.5 meq/L 3.6-5.5 [id number] 17:12:00 Test Item Value Reference Range Comments FIBRINOGEN LEVEL (BEAKER) (test xuye=998) 117 mg/dl 225-434 [id number] 17:05:00 Test Item Value Reference Range Comments ACTIVATED CLOTTING TIME 444 sec [address]BEAK[address] (test ntog=743) [place] [address] [id number] 17:05:00 Test Item Value Reference Range Comments ACTIVATED CLOTTING TIME 406 sec TESTED AT [place] [address] [address] (BEAKER) (test nnmc=553) [place] [address] [id number] 17:05:00 Test Item Value Reference Range Comments ACTIVATED CLOTTING TIME 411 sec TESTED AT [place] [address] [address] (BEAKER) (test nmsj=388) [place] [address] [id number] 17:05:00 Test Item Value Reference Range Comments ACTIVATED CLOTTING TIME 351 sec TESTED AT [place] [address] [address] (BEAKER) (test mbfg=926) [place] [address] [id number] 17:05:00 Test Item Value Reference Range Comments ACTIVATED CLOTTING TIME 626 sec TESTED AT [place] [address] [address] (BEAKER) (test uhyr=450) [place] [address] [id number] 17:02:00 Test Item Value Reference Range Comments PARTIAL THROMBOPLASTIN TIME (BEAKER) (test 40.8 seconds 22.5-36.0 zhbw=332) PROTHROMBIN [id number] 17:01:00 Test Item Value Reference Range Comments PROTIME (BEAKER) (test ptkb=083) 31.7 seconds 11.9-14.2 INR (BEAKER) (test iwry=989) 3.3 <=5.9 Effective 03/27/2019: PT Reference Range ChangeNew: 11.9-14.2 Previous: 11.7- 14.7RECOMMENDED COUMADIN/WARFARIN INR THERAPY RANGESSTANDARD DOSE: 2.0-3.0 Includes: PROPHYLAXIS for venous thrombosis, systemic embolization; TREATMENT for venous thrombosis and/or pulmonary embolus.HIGH RISK: Target INR is2.5-3.5 for patients wiht mechanical heart valves.PLATELET [id number] 16:49:00 Test Item Value Reference Range Comments PLATELET COUNT (BEAKER) (test vepp=601) 52 K/CU MM 150-450 CALCIUM, [id number] 16:44:00 Test Item Value Reference Range Comments CALCIUM IONIZED (BEAKER) (test ndki=694) 1.08 mmol/L 1.12-1.27 PH, BLOOD (BEAKER) (test qymu=5738) 7.33 BLOOD GAS, [id number] 16:44:00 Test Item Value Reference Range Comments PH ARTERIAL (BEAKER) (test jvuy=096) 7.34 7.35-7.45 PCO2 ARTERIAL (BEAKER) (test fktj=027) 40 mmHg 35-45 PO2 ARTERIAL (BEAKER) (test obnt=315) 132 mmHg 80-90 O2 SATURATION ARTERIAL (BEAKER) (test ceyr=069) 98.6 % 96.0-97.0 HCO3 ARTERIAL (BEAKER) (test orpb=476) 21 mmol/L 21-29 BASE EXCESS ARTERIAL (BEAKER) (test nqpo=790) -4.3 mmol/L -2.0-3.0 PATIENT TEMPERATURE (BEAKER) (test jxgj=2686) 36.0 C FIO2 (BEAKER) (test evik=9477) 100.0 % GLUCOSE-STAT [id number] 16:44:00 Test Item Value Reference Range Comments GLUCOSE RANDOM (BEAKER) (test ythe=048) 277 mg/dL 70-110 HGB/HCT (H&H) - STAT [id number] 16:44:00 Test Item Value Reference Range Comments HEMOGLOBIN (BEAKER) (test dkgn=532) 11.3 g/dL 13.0-16.8 HEMATOCRIT (BEAKER) (test qbot=089) 33.0 % 40.0-50.0 SODIUM NA-STAT [id number] 16:43:00 Test Item Value Reference Range Comments SODIUM (BEAKER) (test arxx=475) 141 meq/L 135-148 POTASSIUM-STAT [id number] 16:43:00 Test Item Value Reference Range Comments POTASSIUM (BEAKER) (test oihe=576) 3.6 meq/L 3.6-5.5 BLOOD GAS, [id number] 16:23:00 Test Item Value Reference Range Comments PH ARTERIAL (BEAKER) (test ngpi=293) 7.35 7.35-7.45 PCO2 ARTERIAL (BEAKER) (test qnsd=825) 54 mmHg 35-45 PO2 ARTERIAL (BEAKER) (test tazz=278) 206 mmHg 80-90 O2 SATURATION ARTERIAL (BEAKER) (test kdpb=298) 99.4 % 96.0-97.0 HCO3 ARTERIAL (BEAKER) (test xwbq=744) 30 mmol/L 21-29 BASE EXCESS ARTERIAL (BEAKER) (test yiea=942) 2.9 mmol/L -2.0-3.0 PATIENT TEMPERATURE (BEAKER) (test oojh=9885) 34.0 C FIO2 (BEAKER) (test eicy=7168) 100.0 % SODIUM NA-STAT [id number] 16:23:00 Test Item Value Reference Range Comments SODIUM (BEAKER) (test vxnu=349) 146 meq/L 135-148 GLUCOSE-STAT [id number] 16:23:00 Test Item Value Reference Range Comments GLUCOSE RANDOM (BEAKER) (test dmsz=297) 281 mg/dL 70-110 HGB/HCT (H&H) - STAT [id number] 16:23:00 Test Item Value Reference Range Comments HEMOGLOBIN (BEAKER) (test sxio=186) 9.9 g/dL 13.0-16.8 HEMATOCRIT (BEAKER) (test dzoy=046) 29.0 % 40.0-50.0 POTASSIUM-STAT [id number] 16:22:00 Test Item Value Reference Range Comments POTASSIUM (BEAKER) (test ujmr=501) 4.2 meq/L 3.6-5.5 CALCIUM, [id number] 16:22:00 Test Item Value Reference Range Comments CALCIUM IONIZED (BEAKER) (test hbld=974) 1.16 mmol/L 1.12-1.27 PH, BLOOD (BEAKER) (test ywiw=4838) 7.31 BLOOD GAS, [id number] 16:13:00 Test Item Value Reference Range Comments PH ARTERIAL (BEAKER) (test acfy=604) 7.16 7.35-7.45 PCO2 ARTERIAL (BEAKER) (test rvma=913) 41 mmHg 35-45 PO2 ARTERIAL (BEAKER) (test klsy=843) 114 mmHg 80-90 O2 SATURATION ARTERIAL (BEAKER) (test edmm=886) 97.2 % 96.0-97.0 HCO3 ARTERIAL (BEAKER) (test rqot=824) 15 mmol/L 21-29 BASE EXCESS ARTERIAL (BEAKER) (test okci=894) -13.3 mmol/L -2.0-3.0 PATIENT TEMPERATURE (BEAKER) (test rpeu=2041) 35.8 C FIO2 (BEAKER) (test rkqj=8001) 100.0 % CALCIUM, [id number] 16:13:00 Test Item Value Reference Range Comments CALCIUM IONIZED (BEAKER) (test jkyp=544) 1.11 mmol/L 1.12-1.27 PH, BLOOD (BEAKER) (test avjh=5980) 7.14 GLUCOSE-STAT [id number] 16:13:00 Test Item Value Reference Range Comments GLUCOSE RANDOM (BEAKER) (test qkcq=164) 268 mg/dL 70-110 HGB/HCT (H&H) - STAT [id number] 16:13:00 Test Item Value Reference Range Comments HEMOGLOBIN (BEAKER) (test hjkq=058) 6.8 g/dL 13.0-16.8 HEMATOCRIT (BEAKER) (test rhvy=652) 20.0 % 40.0-50.0 SODIUM NA-STAT [id number] 16:12:00 Test Item Value Reference Range Comments SODIUM (BEAKER) (test ahsb=324) 137 meq/L 135-148 POTASSIUM-STAT [id number] 16:12:00 Test Item Value Reference Range Comments POTASSIUM (BEAKER) (test glcp=277) 4.6 meq/L 3.6-5.5 BLOOD GAS, [id number] 15:44:00 Test Item Value Reference Range Comments PH ARTERIAL (BEAKER) (test hsid=661) 7.31 7.35-7.45 PCO2 ARTERIAL (BEAKER) (test qcie=352) 43 mmHg 35-45 PO2 ARTERIAL (BEAKER) (test suhd=688) 416 mmHg 80-90 O2 SATURATION ARTERIAL (BEAKER) (test gjdu=163) 99.8 % 96.0-97.0 HCO3 ARTERIAL (BEAKER) (test cvbk=077) 22 mmol/L 21-29 BASE EXCESS ARTERIAL (BEAKER) (test vmzi=013) -4.7 mmol/L -2.0-3.0 PATIENT TEMPERATURE (BEAKER) (test sknt=8995) 34.6 C FIO2 (BEAKER) (test rfnd=4123) 90.0 % GLUCOSE-STAT [id number] 15:44:00 Test Item Value Reference Range Comments GLUCOSE RANDOM (BEAKER) (test gocf=518) 255 mg/dL 70-110 HGB/HCT (H&H) - STAT [id number] 15:44:00 Test Item Value Reference Range Comments HEMOGLOBIN (BEAKER) (test xfna=126) 9.0 g/dL 13.0-16.8 HEMATOCRIT (BEAKER) (test bcsk=928) 26.0 % 40.0-50.0 SODIUM NA-STAT [id number] 15:43:00 Test Item Value Reference Range Comments SODIUM (BEAKER) (test pmch=622) 135 meq/L 135-148 POTASSIUM-STAT [id number] 15:43:00 Test Item Value Reference Range Comments POTASSIUM (BEAKER) (test pzcp=602) 4.9 meq/L 3.6-5.5 BLOOD GAS, [id number] 14:59:00 Test Item Value Reference Range Comments PH ARTERIAL (BEAKER) (test ezrs=409) 7.38 7.35-7.45 PCO2 ARTERIAL (BEAKER) (test vlzo=840) 40 mmHg 35-45 PO2 ARTERIAL (BEAKER) (test iijd=057) 294 mmHg 80-90 O2 SATURATION ARTERIAL (BEAKER) (test jopj=092) 99.7 % 96.0-97.0 HCO3 ARTERIAL (BEAKER) (test yace=622) 24 mmol/L 21-29 BASE EXCESS ARTERIAL (BEAKER) (test tlut=244) -1.7 mmol/L -2.0-3.0 PATIENT TEMPERATURE (BEAKER) (test mhsr=9925) 35.1 C FIO2 (BEAKER) (test hkqs=5202) 75.0 % SODIUM NA-STAT [id number] 14:59:00 Test Item Value Reference Range Comments SODIUM (BEAKER) (test ibms=493) 133 meq/L 135-148 GLUCOSE-STAT [id number] 14:59:00 Test Item Value Reference Range Comments GLUCOSE RANDOM (BEAKER) (test tlzf=941) 249 mg/dL 70-110 HGB/HCT (H&H) - STAT [id number] 14:59:00 Test Item Value Reference Range Comments HEMOGLOBIN (BEAKER) (test hcbu=565) 7.9 g/dL 13.0-16.8 HEMATOCRIT (BEAKER) (test ixlp=044) 23.0 % 40.0-50.0 POTASSIUM-STAT [id number] 14:58:00 Test Item Value Reference Range Comments POTASSIUM (BEAKER) (test iixm=065) 4.6 meq/L 3.6-5.5 POTASSIUM-STAT [id number] 14:28:00 Test Item Value Reference Range Comments POTASSIUM (BEAKER) (test tjph=099) 3.9 meq/L 3.6-5.5 BLOOD GAS, [id number] 14:28:00 Test Item Value Reference Range Comments PH ARTERIAL (BEAKER) (test efqt=297) 7.36 7.35-7.45 PCO2 ARTERIAL (BEAKER) (test sxds=065) 33 mmHg 35-45 PO2 ARTERIAL (BEAKER) (test jurp=482) 323 mmHg 80-90 O2 SATURATION ARTERIAL (BEAKER) (test xobm=364) 99.7 % 96.0-97.0 HCO3 ARTERIAL (BEAKER) (test jyes=114) 20 mmol/L 21-29 BASE EXCESS ARTERIAL (BEAKER) (test vkyy=596) -7.0 mmol/L -2.0-3.0 PATIENT TEMPERATURE (BEAKER) (test lhze=2276) 27.5 C FIO2 (BEAKER) (test ncfr=7409) 60.0 % SODIUM NA-STAT [id number] 14:28:00 Test Item Value Reference Range Comments SODIUM (BEAKER) (test exyj=646) 132 meq/L 135-148 GLUCOSE-STAT [id number] 14:28:00 Test Item Value Reference Range Comments GLUCOSE RANDOM (BEAKER) (test dvsl=425) 257 mg/dL 70-110 HGB/HCT (H&H) - STAT [id number] 14:28:00 Test Item Value Reference Range Comments HEMOGLOBIN (BEAKER) (test sasn=449) 8.6 g/dL 13.0-16.8 HEMATOCRIT (BEAKER) (test zigd=029) 25.0 % 40.0-50.0 BLOOD GAS, [id number] 13:17:00 Test Item Value Reference Range Comments PH ARTERIAL (BEAKER) (test fjfl=939) 7.34 7.35-7.45 PCO2 ARTERIAL (BEAKER) (test rgjm=104) 41 mmHg 35-45 PO2 ARTERIAL (BEAKER) (test uagq=610) 231 mmHg 80-90 O2 SATURATION ARTERIAL (BEAKER) (test tkqd=353) 99.5 % 96.0-97.0 HCO3 ARTERIAL (BEAKER) (test rsvl=699) 21 mmol/L 21-29 BASE EXCESS ARTERIAL (BEAKER) (test loas=639) -4.5 mmol/L -2.0-3.0 PATIENT TEMPERATURE (BEAKER) (test skob=1075) 36.0 C FIO2 (BEAKER) (test ytwi=2786) 100.0 % SODIUM NA-STAT [id number] 13:17:00 Test Item Value Reference Range Comments SODIUM (BEAKER) (test hjjs=167) 132 meq/L 135-148 GLUCOSE-STAT [id number] 13:17:00 Test Item Value Reference Range Comments GLUCOSE RANDOM (BEAKER) (test tmgw=439) 139 mg/dL 70-110 CALCIUM, [id number] 13:14:00 Test Item Value Reference Range Comments CALCIUM IONIZED (BEAKER) (test wosb=175) 1.12 mmol/L 1.12-1.27 PH, BLOOD (BEAKER) (test mtea=6936) 7.32 POTASSIUM-STAT [id number] 13:13:00 Test Item Value Reference Range Comments POTASSIUM (BEAKER) (test gyao=591) 3.9 meq/L 3.6-5.5 HGB/HCT (H&H) - STAT [id number] 13:13:00 Test Item Value Reference Range Comments HEMOGLOBIN (BEAKER) (test zdbh=694) 14.7 g/dL 13.0-16.8 HEMATOCRIT (BEAKER) (test cgpn=512) 43.0 % 40.0-50.0 BASIC METABOLIC [id number] 06:01:00 Test Item Value Reference Range Comments SODIUM (BEAKER) (test 138 meq/L 136-145 ihyx=983) POTASSIUM (BEAKER) (test 4.0 meq/L 3.5-5.1 Specimen slightly gxus=235) hemolyzed CHLORIDE (BEAKER) (test 104 meq/L 98-107 aizt=155) CO2 (BEAKER) (test 22 meq/L 22-29 mnrv=287) BLOOD UREA NITROGEN 15 mg/dL 7-21 (BEAKER) (test mnxs=222) CREATININE (BEAKER) (test 0.70 mg/dL 0.57-1.25 Specimen slightly ygta=892) hemolyzed GLUCOSE RANDOM (BEAKER) 127 mg/dL 70-105 (test ybmj=928) CALCIUM (BEAKER) (test 9.6 mg/dL 8.4-10.2 ypyh=431) EGFR (BEAKER) (test 113 mL/min/1.73 sq m ESTIMATED GFR IS NOT pllr=9019) ACCURATE CREATININE CLEARANCE IN PREDICTING GLOMERULAR FILTRATION RATE. ESTIMATED GFR IS NOT APPLICABLE FOR DIALYSIS PATIENTS. POCT-GLUCOSE [id number] 22:20:00 Test Item Value Reference Range Comments POC-GLUCOSE METER (BEAKER) 164 mg/dL 70-110 TESTED AT [facility] [address] [facility] (test nvik=0177) [facility] [address] PROTHROMBIN [id number] 22:15:00 Test Item Value Reference Range Comments PROTIME (BEAKER) (test yfjh=554) 13.8 seconds 11.9-14.2 INR (BEAKER) (test lnda=543) 1.1 <=5.9 Effective 03/27/2019: PT Reference Range ChangeNew: 11.9-14.2 Previous: 11.7- 14.7RECOMMENDED COUMADIN/WARFARIN INR THERAPY RANGESSTANDARD DOSE: 2.0-3.0 Includes: PROPHYLAXIS for venous thrombosis, systemic embolization; TREATMENT for venous thrombosis and/or pulmonary embolus.HIGH RISK: Target INR is2.5-3.5 for patients wiht mechanical heart valves.[id number] 22:15:00 Test Item Value Reference Range Comments PARTIAL THROMBOPLASTIN TIME (BEAKER) (test 33.3 seconds 22.5-36.0 saat=406) BASIC METABOLIC [id number] 21:43:00 Test Item Value Reference Range Comments SODIUM (BEAKER) (test 135 meq/L 136-145 njwa=087) POTASSIUM (BEAKER) (test 5.1 meq/L 3.5-5.1 Specimen moderately aarf=973) hemolyzed CHLORIDE (BEAKER) (test 104 meq/L 98-107 zyxx=916) CO2 (BEAKER) (test 22 meq/L 22-29 yajs=111) BLOOD UREA NITROGEN 17 mg/dL 7-21 (BEAKER) (test hooy=677) CREATININE (BEAKER) (test 0.72 mg/dL 0.57-1.25 Specimen moderately ojko=258) hemolyzed GLUCOSE RANDOM (BEAKER) 161 mg/dL 70-105 (test ovma=142) CALCIUM (BEAKER) (test 9.4 mg/dL 8.4-10.2 suax=162) EGFR (BEAKER) (test 110 mL/min/1.73 sq m ESTIMATED GFR IS NOT yaeo=9410) ACCURATE CREATININE CLEARANCE IN PREDICTING GLOMERULAR FILTRATION RATE. ESTIMATED GFR IS NOT APPLICABLE FOR DIALYSIS PATIENTS. CBC W/PLT COUNT & AUTO [id number] 21:14:00 Test Item Value Reference Range Comments WHITE BLOOD CELL COUNT (BEAKER) (test kyyg=412) 10.3 K/ L 3.5-10.5 RED BLOOD CELL COUNT (BEAKER) (test gcuf=980) 4.96 M/ L 4.63-6.08 HEMOGLOBIN (BEAKER) (test ipxl=646) 15.2 GM/DL 13.7-17.5 HEMATOCRIT (BEAKER) (test gizm=061) 44.3 % 40.1-51.0 MEAN CORPUSCULAR VOLUME (BEAKER) (test xawx=032) 89.3 fL 79.0-92.2 MEAN CORPUSCULAR HEMOGLOBIN (BEAKER) (test 30.6 pg 25.7-32.2 hcia=537) MEAN CORPUSCULAR HEMOGLOBIN CONC (BEAKER) (test 34.3 GM/DL 32.3-36.5 shsj=577) RED CELL DISTRIBUTION WIDTH (BEAKER) (test 12.8 % 11.6-14.4 ngun=409) PLATELET COUNT (BEAKER) (test ygod=599) 262 K/CU MM 150-450 MEAN PLATELET VOLUME (BEAKER) (test izue=977) 9.3 fL 9.4-12.4 NUCLEATED RED BLOOD CELLS (BEAKER) (test 0 /100 WBC 0-0 ylgl=442) NEUTROPHILS RELATIVE PERCENT (BEAKER) (test 73 % usea=540) LYMPHOCYTES RELATIVE PERCENT (BEAKER) (test 19 % hlmd=302) MONOCYTES RELATIVE PERCENT (BEAKER) (test 7 % oize=404) EOSINOPHILS RELATIVE PERCENT (BEAKER) (test 1 % gykx=060) BASOPHILS RELATIVE PERCENT (BEAKER) (test 0 % pfde=872) NEUTROPHILS ABSOLUTE COUNT (BEAKER) (test 7.53 K/ L 1.78-5.38 ysga=507) LYMPHOCYTES ABSOLUTE COUNT (BEAKER) (test 1.94 K/ L 1.32-3.57 vcpl=483) MONOCYTES ABSOLUTE COUNT (BEAKER) (test 0.69 K/ L 0.30-0.82 gwtk=389) EOSINOPHILS ABSOLUTE COUNT (BEAKER) (test 0.12 K/ L 0.04-0.54 uxsc=296) BASOPHILS ABSOLUTE COUNT (BEAKER) (test 0.03 K/ L 0.01-0.08 godn=260) IMMATURE GRANULOCYTES-RELATIVE PERCENT (BEAKER) 0 % 0-1 (test geif=9917) BLOOD [id number] 05:01:00 Test Item Value Reference Range Comments CULTURE (BEAKER) (test yive=4622) No growth in 5 days BLOOD [id number] 05:01:00 Test Item Value Reference Range Comments CULTURE (BEAKER) (test dfwd=8028) No growth in 5 days URINE [id number] 17:30:00 Test Item Value Reference Range Comments CULTURE (BEAKER) (test nkej=9173) No growth POCT-GLUCOSE [id number] 12:44:00 Test Item Value Reference Range Comments POC-GLUCOSE METER (BEAKER) 243 mg/dL 70-110 TESTED AT [address] (test bjui=4856) [place] [id number] VANCOMYCIN LEVEL, [id number] 09:18:00 Test Item Value Reference Range Comments VANCOMYCIN TROUGH (BEAKER) (test wmdx=127) 12.8 ug/mL 10.0-20.0 Please draw vancomycin trough level. If level greater than 20 mcg/mL, please hold 900 dose.POCT-GLUCOSE [id number] 08:07:00 Test Item Value Reference Range Comments POC-GLUCOSE METER (BEAKER) 225 mg/dL 70-110 TESTED AT [address] (test rcco=8158) [place] [id number] POCT-GLUCOSE [id number] 21:42:00 Test Item Value Reference Range Comments POC-GLUCOSE METER (BEAKER) 304 mg/dL 70-110 TESTED AT [address] (test mepp=0393) [place] [address] POCT-GLUCOSE [id number] 18:30:00 Test Item Value Reference Range Comments POC-GLUCOSE METER (BEAKER) 259 mg/dL 70-110 TESTED AT [address] (test xanb=8554) [place] [address] POCT-GLUCOSE [id number] 14:03:00 Test Item Value Reference Range Comments POC-GLUCOSE METER (BEAKER) 297 mg/dL 70-110 TESTED AT [address] (test tdnu=1907) [facility] [address] RESPIRATORY PANEL [id number] 12:24:00 Test Item Value Reference Range Comments HUMAN METAPNEUMOVIRUS (BEAKER) (test Not detected Not detected, Equivocal oyms=8039) RHINOVIRUS (BEAKER) (test jefo=0146) Not detected Not detected, Equivocal INFLUENZA A (BEAKER) (test gvdb=6922) Not detected Not detected, Equivocal INFLUENZA A (NO SUBTYPE) (test Not detected, Equivocal mhrc=4700) INFLUENZA A SUBTYPE H1 (BEAKER) (test Not detected, Equivocal iodu=3826) INFLUENZA A SUBTYPE H3 (BEAKER) (test Not detected, Equivocal emzk=6238) INFLUENZA A SUBTYPE H1-2009 (BEAKER) Not detected, Equivocal (test qgpr=0016) INFLUENZA B (BEAKER) (test zfee=5504) Not detected Not detected, Equivocal RESPIRATORY SYNCYTIAL VIRUS (BEAKER) Not detected Not detected, Equivocal (test syhs=3041) PARAINFLUENZA VIRUS 1 (BEAKER) (test Not detected Not detected, Equivocal wcre=6475) PARAINFLUENZA VIRUS 2 (BEAKER) (test Not detected Not detected, Equivocal gtrm=9995) PARAINFLUENZA VIRUS 3 (BEAKER) (test Not detected Not detected, Equivocal smor=4171) PARAINFLUENZA VIRUS 4 (BEAKER) (test Not detected Not detected, Equivocal agnf=0712) ADENOVIRUS (BEAKER) (test szug=2856) Not detected Not detected, Equivocal CORONAVIRUS 229E (BEAKER) (test Not detected Not detected, Equivocal xdko=5966) CORONAVIRUS HKU1 (BEAKER) (test Not detected Not detected, Equivocal iqgl=9035) CORONAVIRUS NL63 (BEAKER) (test Not detected Not detected, Equivocal tztw=1696) CORONAVIRUS OC43 (BEAKER) (test Not detected Not detected, Equivocal whbf=1005) BORDETELLA PERTUSSIS (BEAKER) (test Not detected Not detected, Equivocal ywpo=6203) CHLAMYDOPHILA PNEUMONIAE (BEAKER) (test Not detected Not detected, Equivocal cnjt=1917) MYCOPLASMA PNEUMONIAE (BEAKER) (test Not detected Not detected, Equivocal ksyl=1534) Other viruses and bacteria not targeted by this PCR panel cannot be excluded; therefore clinical correlation and follow up of serology, culture results, and other molecular studies is required. The results are not intended to be used as the sole means for clinical diagnosis or patient management decisions. This sample was tested at the [facility] using the FollicaArray Respiratory Panel. It is FDA cleared and has been verified and approved by the [facility] for clinical use on nasal swab specimens. It is not FDA-cleared for use on bronchial wash/lavage samples. However, for this sample type, validation was performed and test characteristics were determined and approved, by [facility] Diagn[facility] laboratory for clinical use under the Clinical Laboratory Improvement Amendments (CLIA) of 1988 requirements. Therefore, FDA clearance isnot required. This laboratory is CLIA-certified and [employer] ([employer])-accredited to perform high complexity testing.POCT-GLUCOSE [id number] 07:58:00 Test Item Value Reference Range Comments POC-GLUCOSE METER (BEAKER) 209 mg/dL 70-110 TESTED AT [facility] [address] (test zyeu=4827) [facility] [address] RAD, CHEST, 1 VIEW, NON [id number] 07:32:00Reason for exam:->interval change in interstitial patternShould [...] [place] Verified Date/Time: 10/05/2018 07:32:16 Reading Location: [facility] Radiology Reading Room BASIC METABOLIC [id number] 06:37:00 Test Item Value Reference Range Comments SODIUM (BEAKER) (test 140 meq/L 136-145 eolb=179) POTASSIUM (BEAKER) (test 3.2 meq/L 3.5-5.1 fmay=867) CHLORIDE (BEAKER) (test 105 meq/L 98-107 iphg=499) CO2 (BEAKER) (test 28 meq/L 22-29 prge=799) BLOOD UREA NITROGEN 15 mg/dL 7-21 (BEAKER) (test ihhs=917) CREATININE (BEAKER) (test 0.74 mg/dL 0.57-1.25 htke=219) GLUCOSE RANDOM (BEAKER) 191 mg/dL 70-105 (test nmhb=268) CALCIUM (BEAKER) (test 9.1 mg/dL 8.4-10.2 puts=914) EGFR (BEAKER) (test 106 mL/min/1.73 sq m ESTIMATED GFR IS NOT sxzl=0993) ACCURATE CREATININE CLEARANCE IN PREDICTING GLOMERULAR FILTRATION RATE. ESTIMATED GFR IS NOT APPLICABLE FOR DIALYSIS PATIENTS. TROPONIN [id number] 06:35:00 Test Item Value Reference Range Comments TROPONIN I (BEAKER) (test enwp=762) 0.02 ng/mL 0.00-0.03 Troponin I (TnI) levels [...] and persistent tachyarrhythmia.CBC W/PLT COUNT & AUTO [id number] 06:17:00 Test Item Value Reference Range Comments WHITE BLOOD CELL COUNT (BEAKER) (test hktp=459) 6.3 K/ L 3.5-10.5 RED BLOOD CELL COUNT (BEAKER) (test apvw=233) 4.43 M/ L 4.63-6.08 HEMOGLOBIN (BEAKER) (test izsm=567) 13.6 GM/DL 13.7-17.5 HEMATOCRIT (BEAKER) (test pgaz=602) 39.8 % 40.1-51.0 MEAN CORPUSCULAR VOLUME (BEAKER) (test tink=765) 89.8 fL 79.0-92.2 MEAN CORPUSCULAR HEMOGLOBIN (BEAKER) (test 30.7 pg 25.7-32.2 trjp=214) MEAN CORPUSCULAR HEMOGLOBIN CONC (BEAKER) (test 34.2 GM/DL 32.3-36.5 kscw=350) RED CELL DISTRIBUTION WIDTH (BEAKER) (test 13.1 % 11.6-14.4 nhzn=492) PLATELET COUNT (BEAKER) (test tqre=936) 200 K/CU MM 150-450 MEAN PLATELET VOLUME (BEAKER) (test zffa=006) 9.5 fL 9.4-12.4 NUCLEATED RED BLOOD CELLS (BEAKER) (test 0 /100 WBC 0-0 fgnr=458) NEUTROPHILS RELATIVE PERCENT (BEAKER) (test 65 % qxdo=371) LYMPHOCYTES RELATIVE PERCENT (BEAKER) (test 24 % akvu=235) MONOCYTES RELATIVE PERCENT (BEAKER) (test 8 % xeve=129) EOSINOPHILS RELATIVE PERCENT (BEAKER) (test 2 % bkai=810) BASOPHILS RELATIVE PERCENT (BEAKER) (test 1 % uwza=254) NEUTROPHILS ABSOLUTE COUNT (BEAKER) (test 4.12 K/ L 1.78-5.38 puuf=433) LYMPHOCYTES ABSOLUTE COUNT (BEAKER) (test 1.51 K/ L 1.32-3.57 dbpq=415) MONOCYTES ABSOLUTE COUNT (BEAKER) (test 0.50 K/ L 0.30-0.82 frnx=287) EOSINOPHILS ABSOLUTE COUNT (BEAKER) (test 0.15 K/ L 0.04-0.54 fibi=842) BASOPHILS ABSOLUTE COUNT (BEAKER) (test 0.03 K/ L 0.01-0.08 advt=393) IMMATURE GRANULOCYTES-RELATIVE PERCENT (BEAKER) 1 % 0-1 (test eklc=6349) POCT-GLUCOSE [id number] 23:02:00 Test Item Value Reference Range Comments POC-GLUCOSE METER (BEAKER) 305 mg/dL 70-110 TESTED AT [facility] [address] [place] [address] (test peyk=1970) [facility] [address] TROPONIN [id number] 22:20:00 Test Item Value Reference Range Comments TROPONIN I (BEAKER) (test vybf=613) 0.03 ng/mL 0.00-0.03 Troponin I (TnI) levels [...] acidosis, acute neurological disease, and persistent tachyarrhythmia.VITAMIN [id number] 18:10:00 Test Item Value Reference Range Comments VITAMIN B12 (BEAKER) (test znys=433) 596 pg/mL 213-816 TSH/FREE T4 IF [id number] 18:10:00 Test Item Value Reference Range Comments THYROID STIMULATING HORMONE (BEAKER) (test 0.64 uIU/mL 0.35-4.94 qghb=790) POCT-GLUCOSE [id number] 17:15:00 Test Item Value Reference Range Comments POC-GLUCOSE METER (BEAKER) 178 mg/dL 70-110 TESTED AT [facility] [address] (test itsh=5920) [facility] [address] CT, BRAIN, WITHOUT [id number] 17:08:00FINAL REPORT CT head without contrast 10/04/2018 [...] Rivas Verified Date/Time: 10/04/2018 17:08:17 Reading Location: [facility] Radiology Reading Room BLOOD GAS, [id number] 16:32:00 Test Item Value Reference Range Comments PH ARTERIAL (BEAKER) (test qvek=279) 7.39 7.35-7.45 PCO2 ARTERIAL (BEAKER) (test ydcp=302) 46 mmHg 35-45 PO2 ARTERIAL (BEAKER) (test zgvv=518) 71 mmHg 80-90 O2 SATURATION ARTERIAL (BEAKER) (test avzj=086) 94.1 % 96.0-97.0 HCO3 ARTERIAL (BEAKER) (test cpkh=048) 27 mmol/L 21-29 BASE EXCESS ARTERIAL (BEAKER) (test moab=388) 1.5 mmol/L -2.0-3.0 PATIENT TEMPERATURE (BEAKER) (test lumj=0448) 37.0 C FIO2 (BEAKER) (test mxfa=5208) 36.0 % RAPID INFLUENZA A&B [id number] 16:22:00 Test Item Value Reference Range Comments RAPID INFLUENZA A AG (BEAKER) (test Negative Negative, Inconclusive jknm=5595) RAPID INFLUENZA B AG (BEAKER) (test Negative Negative, Inconclusive qtnf=8478) B-TYPE NATRIURETIC FACTOR (BNP)2018-10-04 13:22:00 Test Item Value Reference Range Comments B-TYPE NATRIURETIC PEPTIDE (BEAKER) (test auou=830) 23 pg/mL 0-100 TROPONIN [id number] 13:21:00 Test Item Value Reference Range Comments TROPONIN I (BEAKER) (test wrqg=388) 0.04 ng/mL 0.00-0.03 Troponin I (TnI) levels [...] failure, acidosis, acute neurological disease, and persistent tachyarrhythmia.[id number] 13:12:00 Test Item Value Reference Range Comments MAGNESIUM (BEAKER) (test iblf=269) 1.1 mg/dL 1.6-2.6 BASIC METABOLIC [id number] 13:12:00 Test Item Value Reference Range Comments SODIUM (BEAKER) (test 140 meq/L 136-145 rjph=851) POTASSIUM (BEAKER) (test 3.7 meq/L 3.5-5.1 ofix=078) CHLORIDE (BEAKER) (test 105 meq/L 98-107 ircj=539) CO2 (BEAKER) (test 25 meq/L 22-29 lscx=887) BLOOD UREA NITROGEN 24 mg/dL 7-21 (BEAKER) (test mrkj=870) CREATININE (BEAKER) (test 0.90 mg/dL 0.57-1.25 rzsu=437) GLUCOSE RANDOM (BEAKER) 167 mg/dL 70-105 (test dqew=438) CALCIUM (BEAKER) (test 9.1 mg/dL 8.4-10.2 noeh=368) EGFR (BEAKER) (test 85 mL/min/1.73 sq m ESTIMATED GFR IS NOT fttv=7735) ACCURATE CREATININE CLEARANCE IN PREDICTING GLOMERULAR FILTRATION RATE. ESTIMATED GFR IS NOT APPLICABLE FOR DIALYSIS PATIENTS. CBC W/PLT COUNT & AUTO [id number] 12:40:00 Test Item Value Reference Range Comments WHITE BLOOD CELL COUNT (BEAKER) (test spoq=285) 9.5 K/ L 3.5-10.5 RED BLOOD CELL COUNT (BEAKER) (test ekjs=728) 4.57 M/ L 4.63-6.08 HEMOGLOBIN (BEAKER) (test necb=182) 13.8 GM/DL 13.7-17.5 HEMATOCRIT (BEAKER) (test fpxa=990) 40.8 % 40.1-51.0 MEAN CORPUSCULAR VOLUME (BEAKER) (test wwrx=045) 89.3 fL 79.0-92.2 MEAN CORPUSCULAR HEMOGLOBIN (BEAKER) (test 30.2 pg 25.7-32.2 hlmh=529) MEAN CORPUSCULAR HEMOGLOBIN CONC (BEAKER) (test 33.8 GM/DL 32.3-36.5 jdoo=747) RED CELL DISTRIBUTION WIDTH (BEAKER) (test 13.2 % 11.6-14.4 eozs=331) PLATELET COUNT (BEAKER) (test jdes=515) 229 K/CU MM 150-450 MEAN PLATELET VOLUME (BEAKER) (test bdre=902) 9.6 fL 9.4-12.4 NUCLEATED RED BLOOD CELLS (BEAKER) (test 0 /100 WBC 0-0 cpbu=358) NEUTROPHILS RELATIVE PERCENT (BEAKER) (test 64 % hknh=905) LYMPHOCYTES RELATIVE PERCENT (BEAKER) (test 26 % lean=526) MONOCYTES RELATIVE PERCENT (BEAKER) (test 8 % ttjr=271) EOSINOPHILS RELATIVE PERCENT (BEAKER) (test 2 % ybrq=885) BASOPHILS RELATIVE PERCENT (BEAKER) (test 1 % rmyw=738) NEUTROPHILS ABSOLUTE COUNT (BEAKER) (test 6.05 K/ L 1.78-5.38 smgw=628) LYMPHOCYTES ABSOLUTE COUNT (BEAKER) (test 2.48 K/ L 1.32-3.57 fgny=152) MONOCYTES ABSOLUTE COUNT (BEAKER) (test 0.73 K/ L 0.30-0.82 ygss=657) EOSINOPHILS ABSOLUTE COUNT (BEAKER) (test 0.14 K/ L 0.04-0.54 erho=070) BASOPHILS ABSOLUTE COUNT (BEAKER) (test 0.05 K/ L 0.01-0.08 zssc=558) IMMATURE GRANULOCYTES-RELATIVE PERCENT (BEAKER) 1 % 0-1 (test lvpf=1982) RAD, CHEST, 1 VIEW, NON [id number] 12:31:00Reason for exam:->chest painFINAL REPORT Chest one view. Clinical history: chest pain Comparison: September 07, 2018 Discussion: A frontal chest is provided. Cardiomediastinal contours are unchanged. There is mild bibasilar atelectasis, right greater than left. No new consolidation identified. No julisa pulmonary edema, pneumothorax, or significant effusion. Osseous structures demonstrate mild degenerative changes. Signed: Galen Pride Verified Date/Time: 10/04/2018 12:31:58 Reading Location: [facility] Radiology Reading Room FUNGUS CULTURE + [id number] 16:07:00 Test Item Value Reference Range Comments CULTURE (BEAKER) (test jasu=6432) <1+ Lauren albicans FUNGUS SMEAR (BEAKER) (test No fungi seen hoqz=7631) POCT-GLUCOSE [id number] 12:22:00 Test Item Value Reference Range Comments POC-GLUCOSE METER (BEAKER) 171 mg/dL 70-110 TESTED AT [address] (test sgkj=8056) [facility] [address] POCT-GLUCOSE [id number] 08:28:00 Test Item Value Reference Range Comments POC-GLUCOSE METER (BEAKER) 212 mg/dL 70-110 TESTED AT [address] (test otop=7847) [facility] [address] POCT-GLUCOSE [id number] 21:23:00 Test Item Value Reference Range Comments POC-GLUCOSE METER (BEAKER) 266 mg/dL 70-110 TESTED AT [address] (test bbnx=3004) [facility] [address] POCT-GLUCOSE [id number] 17:14:00 Test Item Value Reference Range Comments POC-GLUCOSE METER (BEAKER) 207 mg/dL 70-110 TESTED AT [address] (test kqby=9787) [facility] [address] POCT-GLUCOSE [id number] 11:43:00 Test Item Value Reference Range Comments POC-GLUCOSE METER (BEAKER) 182 mg/dL 70-110 TESTED AT [address] (test cnws=5718) [facility] [address] POCT-GLUCOSE [id number] 06:58:00 Test Item Value Reference Range Comments POC-GLUCOSE METER (BEAKER) 186 mg/dL 70-110 TESTED AT [address] (test aply=5270) [facility] [address] POCT-GLUCOSE [id number] 21:22:00 Test Item Value Reference Range Comments POC-GLUCOSE METER (BEAKER) 230 mg/dL 70-110 TESTED AT [address] (test vdib=4494) [facility] [address] POCT-GLUCOSE [id number] 16:28:00 Test Item Value Reference Range Comments POC-GLUCOSE METER (BEAKER) 218 mg/dL 70-110 TESTED AT [address] (test chmd=9374) [facility] [address] POCT-GLUCOSE [id number] 11:28:00 Test Item Value Reference Range Comments POC-GLUCOSE METER (BEAKER) 215 mg/dL 70-110 TESTED AT [address] (test ayhf=1568) [facility] [address] POCT-GLUCOSE [id number] 06:58:00 Test Item Value Reference Range Comments POC-GLUCOSE METER (BEAKER) 197 mg/dL 70-110 TESTED AT [address] (test hobi=0538) [facility] [address] POCT-GLUCOSE [id number] 21:35:00 Test Item Value Reference Range Comments POC-GLUCOSE METER (BEAKER) 266 mg/dL 70-110 TESTED AT [address] (test pxib=6127) [facility] [address] POCT-GLUCOSE [id number] 17:08:00 Test Item Value Reference Range Comments POC-GLUCOSE METER (BEAKER) 189 mg/dL 70-110 TESTED AT [address] (test adyx=5867) [facility] [address] POCT-GLUCOSE [id number] 11:44:00 Test Item Value Reference Range Comments POC-GLUCOSE METER (BEAKER) 223 mg/dL 70-110 TESTED AT [address] (test wbjd=7475) [facility] [id number] POCT-GLUCOSE [id number] 07:21:00 Test Item Value Reference Range Comments POC-GLUCOSE METER (BEAKER) 173 mg/dL 70-110 TESTED AT [facility] [address] (test olrt=7839) [facility] [address] RAD, CHEST, 1 VIEW, NON [id number] 07:12:00Reason for exam:->pulm edemaShould this be performed at the bedside?->YesFINAL REPORT CLINICAL HISTORY: pulm edema TECHNIQUE: 1 view of the chest. COMPARISON : 09/06/2018 IMPRESSION: Right central line has been removed. There is decreased bibasilar atelectasis. There is no significant appearing pleural fluid. The cardiomediastinal silhouette is magnified by technique. Signed: Yimi Harkins Verified Date/Time: 09/07/2018 07:12:01 Reading Location : [facility] Radiology Reading Room [id number] 06:13:00 Test Item Value Reference Range Comments PHOSPHORUS (BEAKER) (test bsqi=521) 2.0 mg/dL 2.3-4.7 [id number] 06:13:00 Test Item Value Reference Range Comments MAGNESIUM (BEAKER) (test crkv=611) 2.2 mg/dL 1.6-2.6 COMPREHENSIVE METABOLIC [id number] 06:13:00 Test Item Value Reference Range Comments TOTAL PROTEIN (BEAKER) 6.1 gm/dL 6.0-8.3 (test gbnw=557) ALBUMIN (BEAKER) (test 3.3 g/dL 3.5-5.0 xxvs=8124) ALKALINE PHOSPHATASE 44 U/L 40-150 (BEAKER) (test jmun=228) BILIRUBIN TOTAL (BEAKER) 0.6 mg/dL 0.2-1.2 (test pcfx=581) SODIUM (BEAKER) (test 141 meq/L 136-145 eqdg=581) POTASSIUM (BEAKER) (test 3.5 meq/L 3.5-5.1 irla=356) CHLORIDE (BEAKER) (test 109 meq/L 98-107 pelf=898) CO2 (BEAKER) (test 24 meq/L 22-29 mipw=723) BLOOD UREA NITROGEN 11 mg/dL 7-21 (BEAKER) (test fusl=695) CREATININE (BEAKER) (test 0.63 mg/dL 0.57-1.25 erjm=857) GLUCOSE RANDOM (BEAKER) 134 mg/dL 70-105 (test mhjy=500) CALCIUM (BEAKER) (test 8.3 mg/dL 8.4-10.2 hymz=876) AST (SGOT) (BEAKER) (test 21 U/L 5-34 xuyo=030) ALT (SGPT) (BEAKER) (test 12 U/L 6-55 kxro=514) EGFR (BEAKER) (test 128 mL/min/1.73 sq ESTIMATED GFR IS NOT ezqd=6356) m ACCURATE CREATININE CLEARANCE IN PREDICTING GLOMERULAR FILTRATION RATE. ESTIMATED GFR IS NOT APPLICABLE FOR DIALYSIS PATIENTS. CBC W/PLT COUNT & AUTO [id number] 05:22:00 Test Item Value Reference Range Comments WHITE BLOOD CELL COUNT (BEAKER) (test noha=537) 6.9 K/ L 3.5-10.5 RED BLOOD CELL COUNT (BEAKER) (test hezu=364) 3.83 M/ L 4.63-6.08 HEMOGLOBIN (BEAKER) (test tbyu=346) 11.8 GM/DL 13.7-17.5 HEMATOCRIT (BEAKER) (test buqo=503) 35.0 % 40.1-51.0 MEAN CORPUSCULAR VOLUME (BEAKER) (test gcnn=263) 91.4 fL 79.0-92.2 MEAN CORPUSCULAR HEMOGLOBIN (BEAKER) (test 30.8 pg 25.7-32.2 cmjl=870) MEAN CORPUSCULAR HEMOGLOBIN CONC (BEAKER) (test 33.7 GM/DL 32.3-36.5 fxuk=614) RED CELL DISTRIBUTION WIDTH (BEAKER) (test 13.3 % 11.6-14.4 rjbz=558) PLATELET COUNT (BEAKER) (test ybxr=115) 237 K/CU MM 150-450 MEAN PLATELET VOLUME (BEAKER) (test sfku=177) 9.8 fL 9.4-12.4 NUCLEATED RED BLOOD CELLS (BEAKER) (test 0 /100 WBC 0-0 kbtk=894) NEUTROPHILS RELATIVE PERCENT (BEAKER) (test 61 % ryyl=921) LYMPHOCYTES RELATIVE PERCENT (BEAKER) (test 29 % aagb=167) MONOCYTES RELATIVE PERCENT (BEAKER) (test 8 % gnmr=404) EOSINOPHILS RELATIVE PERCENT (BEAKER) (test 1 % kfuh=283) BASOPHILS RELATIVE PERCENT (BEAKER) (test 0 % rbkx=839) NEUTROPHILS ABSOLUTE COUNT (BEAKER) (test 4.21 K/ L 1.78-5.38 jufa=798) LYMPHOCYTES ABSOLUTE COUNT (BEAKER) (test 1.98 K/ L 1.32-3.57 hifs=274) MONOCYTES ABSOLUTE COUNT (BEAKER) (test 0.54 K/ L 0.30-0.82 ljhk=674) EOSINOPHILS ABSOLUTE COUNT (BEAKER) (test 0.07 K/ L 0.04-0.54 ovkr=744) BASOPHILS ABSOLUTE COUNT (BEAKER) (test 0.03 K/ L 0.01-0.08 jasv=728) IMMATURE GRANULOCYTES-RELATIVE PERCENT (BEAKER) 1 % 0-1 (test zkhy=1041) POCT-GLUCOSE [id number] 21:22:00 Test Item Value Reference Range Comments POC-GLUCOSE METER (BEAKER) 223 mg/dL 70-110 TESTED AT [address] (test tgrh=0745) [place] [address] POCT-GLUCOSE [id number] 17:32:00 Test Item Value Reference Range Comments POC-GLUCOSE METER (BEAKER) 204 mg/dL 70-110 TESTED AT [address] (test ysvc=8762) [place] [address] MISCELLANEOUS LAB [id number] 14:45:00 Test Item Value Reference Range Comments SCAN RESULT (test dmrr=[id number]) POCT-GLUCOSE [id number] 13:12:00 Test Item Value Reference Range Comments POC-GLUCOSE METER (BEAKER) 224 mg/dL 70-110 TESTED AT [address] (test xcdl=6641) [place] [id number] POCT-GLUCOSE [id number] 07:36:00 Test Item Value Reference Range Comments POC-GLUCOSE METER (BEAKER) 173 mg/dL 70-110 TESTED AT [address] (test yqhq=7474) [place] [id number] RAD, CHEST, 1 VIEW, NON [id number] 07:19:00Reason for exam:->pulm edemaShould this be performed [...] MDReport Verified Date/Time: 09/06/2018 07:19:50 Reading Location: [facility] Radiology Reading Room COMPREHENSIVE METABOLIC [id number] 05:49:00 Test Item Value Reference Range Comments TOTAL PROTEIN (BEAKER) 5.6 gm/dL 6.0-8.3 (test qcgx=005) ALBUMIN (BEAKER) (test 3.0 g/dL 3.5-5.0 ezlq=7446) ALKALINE PHOSPHATASE 38 U/L 40-150 (BEAKER) (test slwq=027) BILIRUBIN TOTAL (BEAKER) 0.5 mg/dL 0.2-1.2 (test gxfy=533) SODIUM (BEAKER) (test 142 meq/L 136-145 gsyb=786) POTASSIUM (BEAKER) (test 3.4 meq/L 3.5-5.1 tpso=599) CHLORIDE (BEAKER) (test 112 meq/L 98-107 emhg=595) CO2 (BEAKER) (test 24 meq/L 22-29 baxj=323) BLOOD UREA NITROGEN 14 mg/dL 7-21 (BEAKER) (test mlsp=311) CREATININE (BEAKER) (test 0.59 mg/dL 0.57-1.25 wsyc=417) GLUCOSE RANDOM (BEAKER) 147 mg/dL 70-105 (test ohnu=820) CALCIUM (BEAKER) (test 7.7 mg/dL 8.4-10.2 pdbo=479) AST (SGOT) (BEAKER) (test 16 U/L 5-34 lxmg=715) ALT (SGPT) (BEAKER) (test 10 U/L 6-55 ocar=842) EGFR (BEAKER) (test 138 mL/min/1.73 sq ESTIMATED GFR IS NOT ufep=8805) m ACCURATE CREATININE CLEARANCE IN PREDICTING GLOMERULAR FILTRATION RATE. ESTIMATED GFR IS NOT APPLICABLE FOR DIALYSIS PATIENTS. [id number] 05:47:00 Test Item Value Reference Range Comments PHOSPHORUS (BEAKER) (test yeri=791) 1.9 mg/dL 2.3-4.7 [id number] 05:47:00 Test Item Value Reference Range Comments MAGNESIUM (BEAKER) (test josm=540) 2.0 mg/dL 1.6-2.6 CBC W/PLT COUNT & AUTO [id number] 05:34:00 Test Item Value Reference Range Comments WHITE BLOOD CELL COUNT (BEAKER) (test flhl=495) 6.7 K/ L 3.5-10.5 RED BLOOD CELL COUNT (BEAKER) (test rqpp=290) 3.80 M/ L 4.63-6.08 HEMOGLOBIN (BEAKER) (test euvl=673) 11.6 GM/DL 13.7-17.5 HEMATOCRIT (BEAKER) (test tpmk=855) 34.9 % 40.1-51.0 MEAN CORPUSCULAR VOLUME (BEAKER) (test yhlr=143) 91.8 fL 79.0-92.2 MEAN CORPUSCULAR HEMOGLOBIN (BEAKER) (test 30.5 pg 25.7-32.2 lgvg=977) MEAN CORPUSCULAR HEMOGLOBIN CONC (BEAKER) (test 33.2 GM/DL 32.3-36.5 cnpu=603) RED CELL DISTRIBUTION WIDTH (BEAKER) (test 13.2 % 11.6-14.4 qmnv=626) PLATELET COUNT (BEAKER) (test lcuu=042) 215 K/CU MM 150-450 MEAN PLATELET VOLUME (BEAKER) (test jwhf=300) 9.2 fL 9.4-12.4 NUCLEATED RED BLOOD CELLS (BEAKER) (test 0 /100 WBC 0-0 hmvz=640) NEUTROPHILS RELATIVE PERCENT (BEAKER) (test 68 % lwlq=159) LYMPHOCYTES RELATIVE PERCENT (BEAKER) (test 22 % oopj=516) MONOCYTES RELATIVE PERCENT (BEAKER) (test 7 % ncjd=840) EOSINOPHILS RELATIVE PERCENT (BEAKER) (test 2 % oiur=068) BASOPHILS RELATIVE PERCENT (BEAKER) (test 0 % kwid=975) NEUTROPHILS ABSOLUTE COUNT (BEAKER) (test 4.53 K/ L 1.78-5.38 arso=152) LYMPHOCYTES ABSOLUTE COUNT (BEAKER) (test 1.50 K/ L 1.32-3.57 jodx=319) MONOCYTES ABSOLUTE COUNT (BEAKER) (test 0.47 K/ L 0.30-0.82 zabv=783) EOSINOPHILS ABSOLUTE COUNT (BEAKER) (test 0.13 K/ L 0.04-0.54 trai=911) BASOPHILS ABSOLUTE COUNT (BEAKER) (test 0.02 K/ L 0.01-0.08 afkb=565) IMMATURE GRANULOCYTES-RELATIVE PERCENT (BEAKER) 1 % 0-1 (test scqu=3210) POCT-GLUCOSE [id number] 22:53:00 Test Item Value Reference Range Comments POC-GLUCOSE METER (BEAKER) 206 mg/dL 70-110 TESTED AT [facility] [address] [place] [address] (test kllo=0980) [facility] [address] MR, SPINE, LUMBAR, [id number] 18:10:00FINAL REPORT MRI lumbar spine with and [...] and left foraminal disc protrusions. There is npul-ri-qderduie narrowing of the central canal, and left [...] MDReport Verified Date/Time: 09/05/2018 18:10:50 Reading Location: [address] Neuro Reading Room POCT-GLUCOSE [id number] 18:07:00 Test Item Value Reference Range Comments POC-GLUCOSE METER (BEAKER) 183 mg/dL 70-110 TESTED AT [address] (test amex=0125) [place] [address] POCT-GLUCOSE [id number] 11:53:00 Test Item Value Reference Range Comments POC-GLUCOSE METER (BEAKER) 324 mg/dL 70-110 Notified MILLA CARPENTER/TESTED AT [facility] (test aepm=4254) [address] [place] [address] [id number] 10:47:00 Test Item Value Reference Range Comments LIPASE (BEAKER) (test icpz=995) 141 U/L 8-78 POCT-GLUCOSE [id number] 07:43:00 Test Item Value Reference Range Comments POC-GLUCOSE METER (BEAKER) 176 mg/dL 70-110 TESTED AT [address] (test gobs=9848) [place] [address] RAD, CHEST, 1 VIEW, NON [id number] 05:49:00Reason for exam:->pulm edemaShould this be performed at the bedside?->YesFINAL REPORT RAD, CHEST, 1 VIEW, NON DEPT INDICATION: pulm edema COMPARISON: Prior day's exam FINDINGS: Portable frontal view of the chest. IMPRESSION: Support Lines: Stable. Lungs and pleura: Unchanged airspace and pleural opacities. No pneumothorax.Heart and mediastinum: Stable contours. Additional findings: None. Signed: Ozzie Avila Verified Date/Time: 09/05/2018 05:49:04 Reading Location: [facility] C013T Transitional Reading Room [id number] 04:38 :00 Test Item Value Reference Range Comments PHOSPHORUS (BEAKER) (test bqyk=278) 2.6 mg/dL 2.3-4.7 [id number] 04:38:00 Test Item Value Reference Range Comments MAGNESIUM (BEAKER) (test svvd=410) 2.2 mg/dL 1.6-2.6 COMPREHENSIVE METABOLIC [id number] 04:38:00 Test Item Value Reference Range Comments TOTAL PROTEIN (BEAKER) 6.1 gm/dL 6.0-8.3 (test ovmc=428) ALBUMIN (BEAKER) (test 3.3 g/dL 3.5-5.0 rclo=3620) ALKALINE PHOSPHATASE 42 U/L 40-150 (BEAKER) (test cqyj=882) BILIRUBIN TOTAL (BEAKER) 0.6 mg/dL 0.2-1.2 (test qmze=962) SODIUM (BEAKER) (test 144 meq/L 136-145 tkry=006) POTASSIUM (BEAKER) (test 3.9 meq/L 3.5-5.1 vldw=719) CHLORIDE (BEAKER) (test 111 meq/L 98-107 curc=845) CO2 (BEAKER) (test 26 meq/L 22-29 fkjj=120) BLOOD UREA NITROGEN 22 mg/dL 7-21 (BEAKER) (test rhww=806) CREATININE (BEAKER) (test 0.72 mg/dL 0.57-1.25 ihzy=648) GLUCOSE RANDOM (BEAKER) 165 mg/dL 70-105 (test drzl=763) CALCIUM (BEAKER) (test 8.4 mg/dL 8.4-10.2 gyxi=655) AST (SGOT) (BEAKER) (test 16 U/L 5-34 xpii=038) ALT (SGPT) (BEAKER) (test 10 U/L 6-55 zizd=928) EGFR (BEAKER) (test 110 mL/min/1.73 sq ESTIMATED GFR IS NOT gaxw=7568) m ACCURATE CREATININE CLEARANCE IN PREDICTING GLOMERULAR FILTRATION RATE. ESTIMATED GFR IS NOT APPLICABLE FOR DIALYSIS PATIENTS. CBC W/PLT COUNT & AUTO [id number] 04:16:00 Test Item Value Reference Range Comments WHITE BLOOD CELL COUNT (BEAKER) (test ehsv=944) 10.5 K/ L 3.5-10.5 RED BLOOD CELL COUNT (BEAKER) (test cctp=094) 3.87 M/ L 4.63-6.08 HEMOGLOBIN (BEAKER) (test nvdw=058) 11.8 GM/DL 13.7-17.5 HEMATOCRIT (BEAKER) (test zqxw=704) 36.0 % 40.1-51.0 MEAN CORPUSCULAR VOLUME (BEAKER) (test xehd=353) 93.0 fL 79.0-92.2 MEAN CORPUSCULAR HEMOGLOBIN (BEAKER) (test 30.5 pg 25.7-32.2 wose=585) MEAN CORPUSCULAR HEMOGLOBIN CONC (BEAKER) (test 32.8 GM/DL 32.3-36.5 ivmf=261) RED CELL DISTRIBUTION WIDTH (BEAKER) (test 13.5 % 11.6-14.4 ovjt=042) PLATELET COUNT (BEAKER) (test shav=643) 263 K/CU MM 150-450 MEAN PLATELET VOLUME (BEAKER) (test ulpc=113) 9.5 fL 9.4-12.4 NUCLEATED RED BLOOD CELLS (BEAKER) (test 0 /100 WBC 0-0 pcsp=375) NEUTROPHILS RELATIVE PERCENT (BEAKER) (test 74 % dfae=779) LYMPHOCYTES RELATIVE PERCENT (BEAKER) (test 18 % nxda=623) MONOCYTES RELATIVE PERCENT (BEAKER) (test 5 % vgck=514) EOSINOPHILS RELATIVE PERCENT (BEAKER) (test 2 % hyjl=284) BASOPHILS RELATIVE PERCENT (BEAKER) (test 0 % dlvh=461) NEUTROPHILS ABSOLUTE COUNT (BEAKER) (test 7.70 K/ L 1.78-5.38 wubg=664) LYMPHOCYTES ABSOLUTE COUNT (BEAKER) (test 1.89 K/ L 1.32-3.57 ghrh=235) MONOCYTES ABSOLUTE COUNT (BEAKER) (test 0.56 K/ L 0.30-0.82 iqxk=248) EOSINOPHILS ABSOLUTE COUNT (BEAKER) (test 0.18 K/ L 0.04-0.54 ubce=443) BASOPHILS ABSOLUTE COUNT (BEAKER) (test 0.04 K/ L 0.01-0.08 fmhb=132) IMMATURE GRANULOCYTES-RELATIVE PERCENT (BEAKER) 1 % 0-1 (test dxqg=5660) U/S, ABDOMINAL, [id number] 02:32:00Reason for exam:->abd distension, nausea,vomittingShould this be [...] Ozzie Avila Verified Date/Time: 02:32:11 Reading Location: [address] Transitional Reading Room Electronically signed by: Hitesh ZARATE 09/05/2018 02:32 AMCT, [id number] 21:34:00Elevated lipaseFINAL REPORT CLINICAL HISTORY: Nausea, vomiting, [...] Verified Date/Time: 09/04/2018 21: 34:29 Reading Location: [address] Reading Room POCT- GLUCOSE [id number] 21:30:00 Test Item Value Reference Range Comments POC-GLUCOSE METER (BEAKER) 159 mg/dL 70-110 TESTED AT [address] (test ahed=4674) [facility] [address] VANCOMYCIN LEVEL, [id number] 21:17:00 Test Item Value Reference Range Comments VANCOMYCIN TROUGH (BEAKER) (test cbph=849) 9.0 ug/mL 10.0-20.0 Please draw vancomycin trough level 09/04 at 2030 hold if trough >20POCT- GLUCOSE [id number] 18:32:00 Test Item Value Reference Range Comments POC-GLUCOSE METER (BEAKER) 174 mg/dL 70-110 TESTED AT [address] (test rkxn=4519) [facility] [address] NEEDLE EMG, 4 [id number] 16:22:00Reason for exam:->r/o ALSBaylNatividad [facility] CenterNeurophysiology DepartmentELECTROMYOGRAPHY - NERVE CONDUCTION STUDY [address] [place] [address] [address] [place], [place] [id number] Name : Garrison Burnett : Date of [...] mm Median.LWrist 4.0 ms 4.6 ms 4 ❫V Digit II (index finger)-Wrist 4.0 ms 130 mm 33 m/sUlnar.LWrist NR NR NR Digit V (little finger)-Wrist 110 mm Radial.LForearm 1.1 ms 2.0 ms 23 栭V Anatomical snuff box-Forearm 1.1 ms 110 mm 55 m/sSural.RLower leg 2.4 ms 3.5 ms 5 ൡV Ankle-Lower leg 2.4 ms 140 mm 40 m/sMedian.RWrist 3.8 ms 4.5 ms 8 𓪀V Digit II (index finger)-Wrist 3.8 ms 130 mm 34 m/sUlnar.RWrist NR NR NR Digit V (little finger)- Wrist 110 mm Radial.RForearm 1.9 ms 2.5 ms 18 ꟥V Anatomical snuff box-Forearm 1.9 ms 95 mm [...] Henriquez M.D. RAD, CHEST, 1 VIEW, NON [id number] 10:58:00Reason for exam:->pulm edemaShould this be performed [...] Pride Verified Date/Time: 09/04/2018 10:58:17 Reading Location: [facility] Radiology Reading Room [id number] 10:53:00 Test Item Value Reference Range Comments LIPASE (BEAKER) (test polg=965) 122 U/L 8-78 [id number] 10:53:00 Test Item Value Reference Range Comments AMYLASE (BEAKER) (test twvx=421) 86 U/L 25-125 RAD, ABDOMEN/KUB, 1 VIEW [id number] 10:34:00Reason for exam:->abdominal distensionShould this be performed [...] Pride Verified Date/Time: 09/04/2018 10:34:31 Reading Location: [facility] Radiology Reading Room Electronically signed by: GALEN PRIDE M.D. on09/04/2018 10:34 AMBLOOD [id number] 10:01:00 Test Item Value Reference Range Comments CULTURE (BEAKER) (test udpq=5758) No growth in 5 days POCT-GLUCOSE [id number] 08:11:00 Test Item Value Reference Range Comments POC-GLUCOSE METER (BEAKER) 233 mg/dL 70-110 TESTED AT [facility] [address] [facility] (test hhlh=8407) [facility] [address] BLOOD [id number] 05:01:00 Test Item Value Reference Range Comments CULTURE (BEAKER) (test hfnn=7191) No growth in 5 days [id number] 03:50:00 Test Item Value Reference Range Comments PHOSPHORUS (BEAKER) (test iwov=987) 2.5 mg/dL 2.3-4.7 [id number] 03:50:00 Test Item Value Reference Range Comments MAGNESIUM (BEAKER) (test ajja=178) 2.2 mg/dL 1.6-2.6 COMPREHENSIVE METABOLIC [id number] 03:50:00 Test Item Value Reference Range Comments TOTAL PROTEIN (BEAKER) 7.1 gm/dL 6.0-8.3 (test xyza=322) ALBUMIN (BEAKER) (test 3.7 g/dL 3.5-5.0 nxem=1177) ALKALINE PHOSPHATASE 46 U/L 40-150 (BEAKER) (test lfhq=710) BILIRUBIN TOTAL (BEAKER) 0.6 mg/dL 0.2-1.2 (test sdze=247) SODIUM (BEAKER) (test 143 meq/L 136-145 zfoq=587) POTASSIUM (BEAKER) (test 3.8 meq/L 3.5-5.1 fhbp=198) CHLORIDE (BEAKER) (test 106 meq/L 98-107 mzqn=546) CO2 (BEAKER) (test 27 meq/L 22-29 tdxm=884) BLOOD UREA NITROGEN 20 mg/dL 7-21 (BEAKER) (test xfub=309) CREATININE (BEAKER) (test 0.76 mg/dL 0.57-1.25 zupw=006) GLUCOSE RANDOM (BEAKER) 219 mg/dL 70-105 (test jgjj=549) CALCIUM (BEAKER) (test 9.1 mg/dL 8.4-10.2 epiz=968) AST (SGOT) (BEAKER) (test 17 U/L 5-34 zfoc=353) ALT (SGPT) (BEAKER) (test 14 U/L 6-55 ecow=508) EGFR (BEAKER) (test 103 mL/min/1.73 sq ESTIMATED GFR IS NOT kshj=9490) m ACCURATE CREATININE CLEARANCE IN PREDICTING GLOMERULAR FILTRATION RATE. ESTIMATED GFR IS NOT APPLICABLE FOR DIALYSIS PATIENTS. CBC W/PLT COUNT & AUTO [id number] 03:33:00 Test Item Value Reference Range Comments WHITE BLOOD CELL COUNT (BEAKER) (test jfkh=364) 13.5 K/ L 3.5-10.5 RED BLOOD CELL COUNT (BEAKER) (test kslt=281) 4.28 M/ L 4.63-6.08 HEMOGLOBIN (BEAKER) (test jjhy=126) 13.3 GM/DL 13.7-17.5 HEMATOCRIT (BEAKER) (test kzdm=394) 39.0 % 40.1-51.0 MEAN CORPUSCULAR VOLUME (BEAKER) (test jpnn=835) 91.1 fL 79.0-92.2 MEAN CORPUSCULAR HEMOGLOBIN (BEAKER) (test 31.1 pg 25.7-32.2 oajy=077) MEAN CORPUSCULAR HEMOGLOBIN CONC (BEAKER) (test 34.1 GM/DL 32.3-36.5 znbo=366) RED CELL DISTRIBUTION WIDTH (BEAKER) (test 13.4 % 11.6-14.4 bglf=210) PLATELET COUNT (BEAKER) (test ewrz=858) 270 K/CU MM 150-450 MEAN PLATELET VOLUME (BEAKER) (test uepk=791) 9.4 fL 9.4-12.4 NUCLEATED RED BLOOD CELLS (BEAKER) (test 0 /100 WBC 0-0 nmmu=670) NEUTROPHILS RELATIVE PERCENT (BEAKER) (test 84 % bcsg=124) LYMPHOCYTES RELATIVE PERCENT (BEAKER) (test 9 % vmiz=809) MONOCYTES RELATIVE PERCENT (BEAKER) (test 5 % gvdp=357) EOSINOPHILS RELATIVE PERCENT (BEAKER) (test 1 % chwr=699) BASOPHILS RELATIVE PERCENT (BEAKER) (test 0 % pqng=697) NEUTROPHILS ABSOLUTE COUNT (BEAKER) (test 11.40 K/ L 1.78-5.38 xvyh=848) LYMPHOCYTES ABSOLUTE COUNT (BEAKER) (test 1.22 K/ L 1.32-3.57 tirs=788) MONOCYTES ABSOLUTE COUNT (BEAKER) (test 0.71 K/ L 0.30-0.82 hldd=779) EOSINOPHILS ABSOLUTE COUNT (BEAKER) (test 0.08 K/ L 0.04-0.54 bfnr=870) BASOPHILS ABSOLUTE COUNT (BEAKER) (test 0.04 K/ L 0.01-0.08 bxvd=616) IMMATURE GRANULOCYTES-RELATIVE PERCENT (BEAKER) 1 % 0-1 (test cqwb=6484) POCT-GLUCOSE [id number] 22:18:00 Test Item Value Reference Range Comments POC-GLUCOSE METER (BEAKER) 262 mg/dL 70-110 TESTED AT [facility] [address] [facility] (test erhi=2027) [facility] [address] C. DIFFICILE GDH [id number] 20:32:00 Test Item Value Reference Range Comments CDT TOXIN (test Negative Negative aamh=[id number]) CDT GDH ANTIGEN (test Negative Negative No indication of Clostridium ddzt=[id number]) difficile infection and no colonization. Discontinue enteric isolation and therapy. Testing performed by [employer] Rapid Cassette Assay. For GDH, published sensitivity of the assay is 98.7% compared to cytotoxicity testing. For Toxin AB, published sensitivity is 87.8% and specificity 99.4% compared to cytotoxicity testing.Verification of kit performance was done by the [facility] Microbiology Lab prior to clinical use.RAD, ABDOMEN/KUB, 1 VIEW [id number] 18: 40:00Reason for exam:->abdominal distensionShould this be performed at the bedside?->YesFINAL REPORT Comparison: 08/30/2018 TECHNIQUE: Frontal images of the abdomen Discussion: Abdomen: Bowel gas pattern is nonobstructed. There is no free intraperitoneal air. No soft tissue abnormalities. No acute skeletal abnormality. Right upper: Cholecystectomy clips are seen.Impression: 1. Nonspecific bowel gas pattern. Signed: Shailesh Hardingeport Verified Date/Time: 09/03/2018 18:40:53 Reading Location: [facility] Reading Room Electronically signed by: SHAILESH HARDING M.D. on 2017 06:40 PMPOCT-GLUCOSE [id number] 17:23:00 Test Item Value Reference Range Comments POC-GLUCOSE METER (BEAKER) 215 mg/dL 70-110 TESTED AT [facility] [address] (test piko=7666) [facility] [address] BLOOD GAS, [id number] 17:05:00 Test Item Value Reference Range Comments PH ARTERIAL (BEAKER) (test czna=094) 7.49 7.35-7.45 PCO2 ARTERIAL (BEAKER) (test diap=562) 37 mmHg 35-45 PO2 ARTERIAL (BEAKER) (test hmyx=225) 69 mmHg 80-90 O2 SATURATION ARTERIAL (BEAKER) (test jepk=248) 95.1 % 96.0-97.0 HCO3 ARTERIAL (BEAKER) (test izrk=996) 27 mmol/L 21-29 BASE EXCESS ARTERIAL (BEAKER) (test tknm=352) 3.8 mmol/L -2.0-3.0 PATIENT TEMPERATURE (BEAKER) (test yaoa=1848) 36.9 C FIO2 (BEAKER) (test yjms=5045) 28.0 % BLOOD GAS, [id number] 16:42:00 Test Item Value Reference Range Comments PH ARTERIAL (BEAKER) (test nprv=590) 7.45 7.35-7.45 PCO2 ARTERIAL (BEAKER) (test bddy=804) 39 mmHg 35-45 PO2 ARTERIAL (BEAKER) (test qvey=194) 40 mmHg 80-90 O2 SATURATION ARTERIAL (BEAKER) (test dxce=737) 78.0 % 96.0-97.0 HCO3 ARTERIAL (BEAKER) (test cuyo=773) 27 mmol/L 21-29 BASE EXCESS ARTERIAL (BEAKER) (test gzen=196) 2.6 mmol/L -2.0-3.0 PATIENT TEMPERATURE (BEAKER) (test rlsd=2185) 36.7 C FIO2 (BEAKER) (test hcdp=2802) 28.0 % [id number] 15:06:00Medical Cytology Report Case: [id number] Authorizing Provider: Nannette Marie NP Collected: 08/31/2018 1146 Ordering Location: [place] [address] CCU Received: 09/03/2018 0947 Pathologist: Shannon Norman Specimen: Lung, Right Middle Lobe RIGHT MIDDLE LOBE LUNG, BAL ( CYTOSPINS): - NEGATIVE FOR MALIGNANCY Signing Pathologist Direct Phone Line: [phone] signed by Shannon Norman on 09/03/2018 at 3:06 [id number], PneumoniaRIGHT MIDDLE LOBE LUNG BALPrepared 4 cytospins from 20 ml colorless fluidCollected: [id number]: [id number] [facility], Department of Pathology, [address] [place] [id number], [facility], Department of [facility]ology, [address] [place] [address] , [facility], Department of Pathology, [address] [place] [address], KZIK-GLUCOSE [id number] 11:22:00 Test Item Value Reference Range Comments POC-GLUCOSE METER (BEAKER) 224 mg/dL 70-110 TESTED AT [address] (test ugwb=9361) [place] [address] RAD, CHEST, 1 VIEW, NON [id number] 06:16:00Reason for exam:->ETT placementShould this be performed [...] Verified Date/Time: 09/03/2018 06:16 :06 Reading Location: [address] Reading Room [id number] 05:13:00 Test Item Value Reference Range Comments MAGNESIUM (BEAKER) (test knts=605) 2.0 mg/dL 1.6-2.6 BASIC METABOLIC [id number] 05:13:00 Test Item Value Reference Range Comments SODIUM (BEAKER) (test 142 meq/L 136-145 qumn=824) POTASSIUM (BEAKER) (test 4.1 meq/L 3.5-5.1 xsag=127) CHLORIDE (BEAKER) (test 108 meq/L 98-107 yirw=491) CO2 (BEAKER) (test 21 meq/L 22-29 hetj=540) BLOOD UREA NITROGEN 20 mg/dL 7-21 (BEAKER) (test aedj=524) CREATININE (BEAKER) (test 0.78 mg/dL 0.57-1.25 qnmd=307) GLUCOSE RANDOM (BEAKER) 213 mg/dL 70-105 (test ftgl=527) CALCIUM (BEAKER) (test 9.5 mg/dL 8.4-10.2 lwmy=124) EGFR (BEAKER) (test 100 mL/min/1.73 sq m ESTIMATED GFR IS NOT rfjx=0166) ACCURATE CREATININE CLEARANCE IN PREDICTING GLOMERULAR FILTRATION RATE. ESTIMATED GFR IS NOT APPLICABLE FOR DIALYSIS PATIENTS. CBC W/PLT COUNT & AUTO [id number] 04:59:00 Test Item Value Reference Range Comments WHITE BLOOD CELL COUNT (BEAKER) (test fdxe=881) 14.4 K/ L 3.5-10.5 RED BLOOD CELL COUNT (BEAKER) (test rwng=158) 4.35 M/ L 4.63-6.08 HEMOGLOBIN (BEAKER) (test bqpn=391) 13.2 GM/DL 13.7-17.5 HEMATOCRIT (BEAKER) (test eynz=730) 39.2 % 40.1-51.0 MEAN CORPUSCULAR VOLUME (BEAKER) (test nnes=150) 90.1 fL 79.0-92.2 MEAN CORPUSCULAR HEMOGLOBIN (BEAKER) (test 30.3 pg 25.7-32.2 iohj=715) MEAN CORPUSCULAR HEMOGLOBIN CONC (BEAKER) (test 33.7 GM/DL 32.3-36.5 gwzg=666) RED CELL DISTRIBUTION WIDTH (BEAKER) (test 13.3 % 11.6-14.4 ajdz=984) PLATELET COUNT (BEAKER) (test mzkh=725) 254 K/CU MM 150-450 MEAN PLATELET VOLUME (BEAKER) (test krjd=305) 9.5 fL 9.4-12.4 NUCLEATED RED BLOOD CELLS (BEAKER) (test 0 /100 WBC 0-0 tfsc=223) NEUTROPHILS RELATIVE PERCENT (BEAKER) (test 85 % ijns=331) LYMPHOCYTES RELATIVE PERCENT (BEAKER) (test 8 % krax=193) MONOCYTES RELATIVE PERCENT (BEAKER) (test 5 % pcfx=457) EOSINOPHILS RELATIVE PERCENT (BEAKER) (test 1 % hkms=799) BASOPHILS RELATIVE PERCENT (BEAKER) (test 0 % ygxr=448) NEUTROPHILS ABSOLUTE COUNT (BEAKER) (test 12.25 K/ L 1.78-5.38 btba=930) LYMPHOCYTES ABSOLUTE COUNT (BEAKER) (test 1.21 K/ L 1.32-3.57 ypix=653) MONOCYTES ABSOLUTE COUNT (BEAKER) (test 0.70 K/ L 0.30-0.82 otgr=889) EOSINOPHILS ABSOLUTE COUNT (BEAKER) (test 0.10 K/ L 0.04-0.54 tqjz=723) BASOPHILS ABSOLUTE COUNT (BEAKER) (test 0.03 K/ L 0.01-0.08 kmti=429) IMMATURE GRANULOCYTES-RELATIVE PERCENT (BEAKER) 1 % 0-1 (test gxke=8049) MR, SPINE, CERVICAL, [id number] 00:54:00FINAL REPORT MR Cervical spine with and [...] Verified Date/ Time: 09/03/2018 00:54:27 Reading Location: [facility] C0[facility] Transitional Reading Room VANCOMYCIN LEVEL, [id number] 00:52:00 Test Item Value Reference Range Comments VANCOMYCIN TROUGH (BEAKER) (test pygm=598) 8.0 ug/mL 10.0-20.0 MR, MRA, NECK, WITHOUT IV [id number] 00:45:00FINAL REPORT CLINICAL HISTORY: r/o ALS TECHNIQUE: MRI of the brain utilizing axial T2, FLAIR, GRE, DWI; sagittal and coronal T1-weighted images as well as postcontrast T1 weighted images. MRA of the head utilizing 3-D nwqj-pl-jcquiz technique, with 3-D reconstructions. MRA of the [...] Correlate clinically. No evidence for a major [place] proximal branch vessel occlusion. Intracranial atherosclerosis results in multifocal mild stenosis of the bilateral M2 segments of the middle cerebral arteries. 60% stenosis of the proximal left internal carotid artery by NASCET criteria No evidence of hemodynamically significant stenosis in the right cervical carotid or vertebral arteries by NASCET criteria. Signed: Ozzie Avila MDReport Verified Date/Time: 09/03/2018 00:45:16 Reading Location: [address] Transitional Reading Room MR, BRAIN, [id number] 00:45:00FINAL REPORT CLINICAL HISTORY: r/o ALS TECHNIQUE: MRI of the brain utilizing axial T2, FLAIR, GRE, DWI; sagittal and coronal T1-weighted images as well as postcontrast T1 weighted images. MRA of the head utilizing 3- D rmot-wg-zffdjf technique, with 3-D reconstructions. MRA of the neck utilizing 2-D and 3-D hvtt-ym-wdbova technique, with 3-D reconstructions. COMPARISON: None MRI [...] Correlate clinically. No evidence for a major [place] proximal branch vessel occlusion. Intracranial atherosclerosis results in multifocal mild stenosis of the bilateral M2 segments of the middle cerebral arteries. 60% stenosis of the proximal left internal carotid artery by NASCET criteria No evidence of hemodynamically significant stenosis in the right cervical carotid or vertebral arteries by NASCET criteria. Signed: Ozzie Avila MDReport Verified Date/Time: 2017 00:45:16 Reading Location: [address] Transitional Reading Room MR, MRA, BRAIN, WITHOUT [id number] 00:45:00FINAL REPORT CLINICAL HISTORY: r/o ALS TECHNIQUE: MRI of the brain utilizing axial T2, FLAIR, GRE, DWI; sagittal and coronal T1-weighted images as well as postcontrast T1 weighted images. MRA of the head utilizing 3-D mlit-bj-rifegp technique, with 3-D reconstructions. MRA of the [...] Correlate clinically. No evidence for a major [place] proximal branch vessel occlusion. Intracranial atherosclerosis results in multifocal mild stenosis of the bilateral M2 segments of the middle cerebral arteries. 60% stenosis of the proximal left internal carotid artery by NASCET criteria No evidence of hemodynamically significant stenosis in the right cervical carotid or vertebral arteries by NASCET criteria. Signed: [facility] Verified Date/Time: 09/03/2018 00:45:16 Reading Location: [address] Transitional Reading Room POCT-GLUCOSE [id number] 00:34:00 Test Item Value Reference Range Comments POC-GLUCOSE METER (BEAKER) 187 mg/dL 70-110 TESTED AT [address] (test tihn=2181) [facility] [id number] POCT-GLUCOSE [id number] 16:17:00 Test Item Value Reference Range Comments POC-GLUCOSE METER (BEAKER) 180 mg/dL 70-110 TESTED AT [address] (test zadh=4990) [facility] [address] BASIC METABOLIC [id number] 14:11:00 Test Item Value Reference Range Comments SODIUM (BEAKER) (test 139 meq/L 136-145 nnad=367) POTASSIUM (BEAKER) (test 3.8 meq/L 3.5-5.1 Specimen slightly wqrj=369) hemolyzed CHLORIDE (BEAKER) (test 102 meq/L 98-107 tacp=686) CO2 (BEAKER) (test 24 meq/L 22-29 bzyk=681) BLOOD UREA NITROGEN 16 mg/dL 7-21 (BEAKER) (test pxom=166) CREATININE (BEAKER) (test 0.82 mg/dL 0.57-1.25 Specimen slightly exhj=769) hemolyzed GLUCOSE RANDOM (BEAKER) 187 mg/dL 70-105 (test sscj=156) CALCIUM (BEAKER) (test 9.4 mg/dL 8.4-10.2 eaij=945) EGFR (BEAKER) (test 94 mL/min/1.73 sq m ESTIMATED GFR IS NOT egru=4332) ACCURATE CREATININE CLEARANCE IN PREDICTING GLOMERULAR FILTRATION RATE. ESTIMATED GFR IS NOT APPLICABLE FOR DIALYSIS PATIENTS. MRSA [id number] 13:43:00 Test Item Value Reference Range Comments CULTURE (BEAKER) (test METHICILLIN RESISTANT 1+ Methicillin fpgw=8469) STAPHYLOCOCCUS AUREUS resistant Staphylococcus aureus Clindamycin (test code=10) Erythromycin (test code=4) Linezolid (test code=40) Oxacillin (test code=14) Rifampin (test code=43) Tetracycline (test code=2) Trimethoprim + Sulfamethoxazole (test code=47) Vancomycin (test code=13) SPUTUM CULTURE + GRAM [id number] 13:36:00 Test Item Value Reference Range Comments CULTURE (BEAKER) (test METHICILLIN RESISTANT <1+ Methicillin lopl=2444) STAPHYLOCOCCUS AUREUS resistant Staphylococcus aureus Clindamycin (test code=10) Erythromycin (test code=4) Linezolid (test code=40) Nitrofurantoin (test code=23) Oxacillin (test code=14) Rifampin (test code=43) Tetracycline (test code=2) Trimethoprim + Sulfamethoxazole (test code=47) Vancomycin (test code=13) GRAM STAIN RESULT 4+ WBCs (BEAKER) (test fahu=6110) GRAM STAIN RESULT 0-5 epithelial cells (BEAKER) (test rqvk=369287) GRAM STAIN RESULT 1+ gram positive cocci (BEAKER) (test in pairs and clusters ynli=888781) GRAM STAIN RESULT 1+ yeast (BEAKER) (test ixrq=655240) <1+ Normal respiratory davie presentPOCT-GLUCOSE [id number] 10:05:00 Test Item Value Reference Range Comments POC-GLUCOSE METER (BEAKER) 210 mg/dL 70-110 TESTED AT [facility] [address] [facility] (test iryn=4948) [facility] [address] BRONCHIAL CULTURE + GRAM [id number] 06:57:00 Test Item Value Reference Range Comments CULTURE (BEAKER) (test No growth klno=8219) GRAM STAIN RESULT No WBCs This is an appended report. (BEAKER) (test These results have been rnzy=6845) appended to a previously preliminary verified report. GRAM STAIN RESULT No organisms seen This is an appended report. (BEAKER) (test These results have been loxo=08105) appended to a previously preliminary verified report. BLOOD GAS, [id number] 05:30:00 Test Item Value Reference Range Comments PH ARTERIAL (BEAKER) (test cevl=926) 7.43 7.35-7.45 PCO2 ARTERIAL (BEAKER) (test ewrw=202) 39 mmHg 35-45 PO2 ARTERIAL (BEAKER) (test hkhu=067) 86 mmHg 80-90 O2 SATURATION ARTERIAL (BEAKER) (test mpic=569) 96.7 % 96.0-97.0 HCO3 ARTERIAL (BEAKER) (test xykn=160) 25 mmol/L 21-29 BASE EXCESS ARTERIAL (BEAKER) (test opat=569) 0.8 mmol/L -2.0-3.0 PATIENT TEMPERATURE (BEAKER) (test rliu=9693) 37.0 C FIO2 (BEAKER) (test icns=8724) 50.0 % RAD, CHEST, 1 VIEW, NON [id number] 04:24:00Reason for exam:->ETT placementShould this be performed [...] Avila Verified Date/Time: 09/02/2018 04:24:02 Reading Location: [address] Transitional Reading Room [id number] 04:04:00 Test Item Value Reference Range Comments MAGNESIUM (BEAKER) (test ihlh=877) 1.9 mg/dL 1.6-2.6 BASIC METABOLIC [id number] 04:04:00 Test Item Value Reference Range Comments SODIUM (BEAKER) (test 139 meq/L 136-145 hgti=009) POTASSIUM (BEAKER) (test 3.7 meq/L 3.5-5.1 fxhj=823) CHLORIDE (BEAKER) (test 108 meq/L 98-107 vwsk=779) CO2 (BEAKER) (test 24 meq/L 22-29 cyof=746) BLOOD UREA NITROGEN 20 mg/dL 7-21 (BEAKER) (test cuea=963) CREATININE (BEAKER) (test 0.77 mg/dL 0.57-1.25 kydf=247) GLUCOSE RANDOM (BEAKER) 176 mg/dL 70-105 (test hgmn=927) CALCIUM (BEAKER) (test 8.6 mg/dL 8.4-10.2 lrei=861) EGFR (BEAKER) (test 101 mL/min/1.73 sq m ESTIMATED GFR IS NOT zhvm=8804) ACCURATE CREATININE CLEARANCE IN PREDICTING GLOMERULAR FILTRATION RATE. ESTIMATED GFR IS NOT APPLICABLE FOR DIALYSIS PATIENTS. CBC W/PLT COUNT & AUTO [id number] 03:31:00 Test Item Value Reference Range Comments WHITE BLOOD CELL COUNT (BEAKER) (test nrmy=455) 8.8 K/ L 3.5-10.5 RED BLOOD CELL COUNT (BEAKER) (test bokf=657) 3.74 M/ L 4.63-6.08 HEMOGLOBIN (BEAKER) (test cfhl=485) 11.3 GM/DL 13.7-17.5 HEMATOCRIT (BEAKER) (test fpvs=981) 34.2 % 40.1-51.0 MEAN CORPUSCULAR VOLUME (BEAKER) (test ppcz=401) 91.4 fL 79.0-92.2 MEAN CORPUSCULAR HEMOGLOBIN (BEAKER) (test 30.2 pg 25.7-32.2 ynkp=141) MEAN CORPUSCULAR HEMOGLOBIN CONC (BEAKER) (test 33.0 GM/DL 32.3-36.5 mnig=882) RED CELL DISTRIBUTION WIDTH (BEAKER) (test 13.5 % 11.6-14.4 rgrd=614) PLATELET COUNT (BEAKER) (test biku=591) 210 K/CU MM 150-450 MEAN PLATELET VOLUME (BEAKER) (test zfrb=644) 9.3 fL 9.4-12.4 NUCLEATED RED BLOOD CELLS (BEAKER) (test 0 /100 WBC 0-0 vljg=237) NEUTROPHILS RELATIVE PERCENT (BEAKER) (test 74 % tqfv=212) LYMPHOCYTES RELATIVE PERCENT (BEAKER) (test 18 % qjng=715) MONOCYTES RELATIVE PERCENT (BEAKER) (test 6 % cfuy=987) EOSINOPHILS RELATIVE PERCENT (BEAKER) (test 1 % bbth=681) BASOPHILS RELATIVE PERCENT (BEAKER) (test 0 % pnns=521) NEUTROPHILS ABSOLUTE COUNT (BEAKER) (test 6.56 K/ L 1.78-5.38 utfy=417) LYMPHOCYTES ABSOLUTE COUNT (BEAKER) (test 1.57 K/ L 1.32-3.57 eemv=126) MONOCYTES ABSOLUTE COUNT (BEAKER) (test 0.53 K/ L 0.30-0.82 cczl=923) EOSINOPHILS ABSOLUTE COUNT (BEAKER) (test 0.10 K/ L 0.04-0.54 yawd=888) BASOPHILS ABSOLUTE COUNT (BEAKER) (test 0.02 K/ L 0.01-0.08 zcka=732) IMMATURE GRANULOCYTES-RELATIVE PERCENT (BEAKER) 1 % 0-1 (test dbkl=5720) POCT-GLUCOSE [id number] 22:19:00 Test Item Value Reference Range Comments POC-GLUCOSE METER (BEAKER) 182 mg/dL 70-110 TESTED AT [address] (test ydvg=2597) [place] [address] VANCOMYCIN LEVEL, [id number] 21:04:00 Test Item Value Reference Range Comments VANCOMYCIN TROUGH ([facility]) (test snfo=865) 14.4 ug/mL 10.0-20.0 [id number] 15:16:00 Test Item Value Reference Range Comments ACTIVATED CLOTTING TIME 142 sec TESTED AT [address] ([facility]) (test eiyr=581) [place] [address] [id number] 13:53:00 Test Item Value Reference Range Comments ACTIVATED CLOTTING TIME 164 sec TESTED AT [address] ([facility]) (test pejo=575) [place] [address] POCT-GLUCOSE [id number] 12:28:00 Test Item Value Reference Range Comments POC-GLUCOSE METER ([facility]) 217 mg/dL 70-110 TESTED AT [address] (test kcuj=7676) [place] [address] [id number] 12:10:00 Test Item Value Reference Range Comments ACTIVATED CLOTTING TIME 296 sec TESTED AT [address] ([facility]) (test lkay=333) [place] [address] TROPONIN [id number] 09:22:00 Test Item Value Reference Range Comments TROPONIN I ([facility]) (test qlva=090) 3.77 ng/mL 0.00-0.03 Troponin I (TnI) levels [...] failure, acidosis, acute neurological disease, and persistent tachyarrhythmia.[id number] 05:27:00 Test Item Value Reference Range Comments PARTIAL THROMBOPLASTIN TIME (BEAKER) (test 76.0 seconds 22.5-36.0 rwoe=052) [id number] 05:22:00 Test Item Value Reference Range Comments MAGNESIUM ([facility]) (test xkut=682) 2.1 mg/dL 1.6-2.6 BASIC METABOLIC [id number] 05:22:00 Test Item Value Reference Range Comments SODIUM (BEAKER) (test 138 meq/L 136-145 zrdq=292) POTASSIUM (BEAKER) (test 4.0 meq/L 3.5-5.1 akiz=488) CHLORIDE (BEAKER) (test 108 meq/L 98-107 bbsg=499) CO2 (BEAKER) (test 21 meq/L 22-29 mjjd=994) BLOOD UREA NITROGEN 25 mg/dL 7-21 (BEAKER) (test otzi=798) CREATININE (BEAKER) (test 0.96 mg/dL 0.57-1.25 zned=470) GLUCOSE RANDOM (BEAKER) 216 mg/dL 70-105 (test nkbz=542) CALCIUM (BEAKER) (test 8.4 mg/dL 8.4-10.2 mxdc=694) EGFR (BEAKER) (test 79 mL/min/1.73 sq m ESTIMATED GFR IS NOT pktb=2296) ACCURATE CREATININE CLEARANCE IN PREDICTING GLOMERULAR FILTRATION RATE. ESTIMATED GFR IS NOT APPLICABLE FOR DIALYSIS PATIENTS. RAD, CHEST, 1 VIEW, NON [id number] 04:50:00Reason for exam:->respiratory failureShould this be performed [...] MDReport Verified Date/Time: 09/01/2018 04:50:17 Reading Location: [address] Reading Room Electronically signed by: BLAIR DANG M.D. on 04:50 AMCBC (HEMOGRAM ONLY)2018-09-01 04:39:00 Test Item Value Reference Range Comments WHITE BLOOD CELL COUNT (BEAKER) (test wmxg=998) 9.0 K/ L 3.5-10.5 RED BLOOD CELL COUNT (BEAKER) (test ljbb=577) 4.10 M/ L 4.63-6.08 HEMOGLOBIN (BEAKER) (test adlm=487) 12.3 GM/DL 13.7-17.5 HEMATOCRIT (BEAKER) (test wrox=120) 37.0 % 40.1-51.0 MEAN CORPUSCULAR VOLUME (BEAKER) (test efkm=862) 90.2 fL 79.0-92.2 MEAN CORPUSCULAR HEMOGLOBIN (BEAKER) (test 30.0 pg 25.7-32.2 ougo=576) MEAN CORPUSCULAR HEMOGLOBIN CONC (BEAKER) (test 33.2 GM/DL 32.3-36.5 ykfo=457) RED CELL DISTRIBUTION WIDTH (BEAKER) (test 13.7 % 11.6-14.4 qzcv=815) PLATELET COUNT (BEAKER) (test hzja=613) 207 K/CU MM 150-450 MEAN PLATELET VOLUME (BEAKER) (test buky=347) 9.6 fL 9.4-12.4 NUCLEATED RED BLOOD CELLS (BEAKER) (test 0 /100 WBC 0-0 evlj=943) TROPONIN [id number] 00:59:00 Test Item Value Reference Range Comments TROPONIN I (BEAKER) (test czax=155) 5.45 ng/mL 0.00-0.03 Troponin I (TnI) levels [...] acidosis, acute neurological disease, and persistent tachyarrhythmia.POCT-GLUCOSE [id number] 22:43:00 Test Item Value Reference Range Comments POC-GLUCOSE METER (BEAKER) 177 mg/dL 70-110 TESTED AT [facility] [address] [facility] (test gkvt=0114) [facility] [address] TROPONIN [id number] 18:36:00 Test Item Value Reference Range Comments TROPONIN I (BEAKER) (test hzgn=700) 6.48 ng/mL 0.00-0.03 Troponin I (TnI) levels [...] failure, acidosis, acute neurological disease, and persistent tachyarrhythmia.[id number] 18:35:00 Test Item Value Reference Range Comments PARTIAL THROMBOPLASTIN TIME (BEAKER) (test 66.0 seconds 22.5-36.0 ggko=901) POCT-GLUCOSE [id number] 16:40:00 Test Item Value Reference Range Comments POC-GLUCOSE METER (BEAKER) 161 mg/dL 70-110 TESTED AT [address] (test myzp=6224) [place] [address] POCT-GLUCOSE [id number] 15:13:00 Test Item Value Reference Range Comments POC-GLUCOSE METER (BEAKER) 149 mg/dL 70-110 TESTED AT [address] (test yelp=8187) [place] [address] BODY FLUID CELL COUNT WITH [id number] 14:28:00 Test Item Value Reference Range Comments APPEARANCE FLUID (BEAKER) (test aujg=685) Hazy Clear COLOR FLUID (BEAKER) (test nuiq=968) [place] Colorless, Straw RBC FLUID (BEAKER) (test oohh=886) 280 /cu mm <=1 ADJUSTED WBC FLUID (BEAKER) (test nomp=6006) 139 /cu mm <=5 LINING CELLS (BEAKER) (test iaer=9144) 1 /cu mm <=1 NEUTROPHILS FLUID (BEAKER) (test tlko=9503) 77 % LYMPHS FLUID (BEAKER) (test oowj=446) 5 % MONO/MACROPHAGE FLUID (BEAKER) (test nxvq=844) 18 % EOSINOPHILS FLUID (BEAKER) (test einh=836) 0 % BASO FLUID (BEAKER) (test dmlr=779) 0 % CONTAINER BODY FLUID (BEAKER) (test snjz=0268) EDTA Tube POCT-GLUCOSE [id number] 14:17:00 Test Item Value Reference Range Comments POC-GLUCOSE METER (BEAKER) 121 mg/dL 70-110 TESTED AT [address] (test anan=0297) [place] [address] POCT-GLUCOSE [id number] 13:05:00 Test Item Value Reference Range Comments POC-GLUCOSE METER (BEAKER) 176 mg/dL 70-110 TESTED AT [address] (test aynw=4593) [place] [address] VANCOMYCIN LEVEL, [id number] 13:01:00 Test Item Value Reference Range Comments VANCOMYCIN RANDOM (BEAKER) (test iscn=415) 7.8 ug/mL Reference Range: No NormalsPOCT-GLUCOSE [id number] 12:08:00 Test Item Value Reference Range Comments POC-GLUCOSE METER (BEAKER) 168 mg/dL 70-110 TESTED AT [address] (test ilql=9067) [place] [address] POCT-GLUCOSE [id number] 10:54:00 Test Item Value Reference Range Comments POC-GLUCOSE METER (BEAKER) 159 mg/dL 70-110 TESTED AT [address] (test dujc=9529) [place] [address] [id number] 10:01:00 Test Item Value Reference Range Comments PARTIAL THROMBOPLASTIN TIME (AKER) (test 44.9 seconds 22.5-36.0 nfud=137) POCT-GLUCOSE [id number] 09:31:00 Test Item Value Reference Range Comments POC-GLUCOSE METER (BEAKER) 98 mg/dL 70-110 TESTED AT [address] (test azwn=0873) [place] [address] POCT-GLUCOSE [id number] 08:31:00 Test Item Value Reference Range Comments POC-GLUCOSE METER (BEAKER) 118 mg/dL 70-110 TESTED AT [address] (test iuck=9090) [place] [address] TROPONIN [id number] 08:28:00 Test Item Value Reference Range Comments TROPONIN I (BEAKER) (test fxwd=862) 9.00 ng/mL 0.00-0.03 Troponin I (TnI) levels [...] acidosis, acute neurological disease, and persistent tachyarrhythmia.POCT-GLUCOSE [id number] 07:13:00 Test Item Value Reference Range Comments POC-GLUCOSE METER (BEAKER) 120 mg/dL 70-110 TESTED AT [facility] [address] [facility] (test oyow=1471) [facility] [address] POCT-GLUCOSE [id number] 06:10:00 Test Item Value Reference Range Comments POC-GLUCOSE METER (BEAKER) 152 mg/dL 70-110 TESTED AT [address] (test rqsq=2467) [facility] [address] POCT-GLUCOSE [id number] 05:07:00 Test Item Value Reference Range Comments POC-GLUCOSE METER (BEAKER) 156 mg/dL 70-110 TESTED AT [address] (test fsdk=2785) [facility] [address] [id number] 04:56:00 Test Item Value Reference Range Comments MAGNESIUM (BEAKER) (test cacc=772) 1.9 mg/dL 1.6-2.6 BASIC METABOLIC [id number] 04:56:00 Test Item Value Reference Range Comments SODIUM (BEAKER) (test 144 meq/L 136-145 kuos=097) POTASSIUM (BEAKER) (test 3.7 meq/L 3.5-5.1 cgwi=725) CHLORIDE (BEAKER) (test 109 meq/L 98-107 tatm=923) CO2 (BEAKER) (test 25 meq/L 22-29 jsds=258) BLOOD UREA NITROGEN 32 mg/dL 7-21 (BEAKER) (test qnwl=050) CREATININE (BEAKER) (test 1.12 mg/dL 0.57-1.25 fgio=965) GLUCOSE RANDOM (BEAKER) 149 mg/dL 70-105 (test vvri=603) CALCIUM (BEAKER) (test 8.7 mg/dL 8.4-10.2 zvvk=968) EGFR (BEAKER) (test 66 mL/min/1.73 sq m ESTIMATED GFR IS NOT ojgh=9365) ACCURATE CREATININE CLEARANCE IN PREDICTING GLOMERULAR FILTRATION RATE. ESTIMATED GFR IS NOT APPLICABLE FOR DIALYSIS PATIENTS. CBC (HEMOGRAM ONLY)2018-08-31 04:33:00 Test Item Value Reference Range Comments WHITE BLOOD CELL COUNT (BEAKER) (test evtl=048) 11.6 K/ L 3.5-10.5 RED BLOOD CELL COUNT (BEAKER) (test mful=157) 4.00 M/ L 4.63-6.08 HEMOGLOBIN (BEAKER) (test vxgd=852) 12.0 GM/DL 13.7-17.5 HEMATOCRIT (BEAKER) (test nwer=500) 35.4 % 40.1-51.0 MEAN CORPUSCULAR VOLUME (BEAKER) (test rwfp=955) 88.5 fL 79.0-92.2 MEAN CORPUSCULAR HEMOGLOBIN (BEAKER) (test 30.0 pg 25.7-32.2 gqou=943) MEAN CORPUSCULAR HEMOGLOBIN CONC (BEAKER) (test 33.9 GM/DL 32.3-36.5 kgdx=755) RED CELL DISTRIBUTION WIDTH (BEAKER) (test 14.0 % 11.6-14.4 kuwz=362) PLATELET COUNT (BEAKER) (test yfea=986) 216 K/CU MM 150-450 MEAN PLATELET VOLUME (BEAKER) (test hquf=428) 9.6 fL 9.4-12.4 NUCLEATED RED BLOOD CELLS (BEAKER) (test 0 /100 WBC 0-0 qbtb=230) BLOOD GAS, [id number] 04:21:00 Test Item Value Reference Range Comments PH ARTERIAL (BEAKER) (test xhbk=882) 7.45 7.35-7.45 PCO2 ARTERIAL (BEAKER) (test eybc=553) 38 mmHg 35-45 PO2 ARTERIAL (BEAKER) (test zsfs=913) 75 mmHg 80-90 O2 SATURATION ARTERIAL (BEAKER) (test kyha=067) 95.6 % 96.0-97.0 HCO3 ARTERIAL (BEAKER) (test ivdp=124) 26 mmol/L 21-29 BASE EXCESS ARTERIAL (BEAKER) (test afrm=309) 1.6 mmol/L -2.0-3.0 PATIENT TEMPERATURE (BEAKER) (test ffvm=3362) 36.9 C FIO2 (BEAKER) (test spum=5441) 60.0 % POCT-GLUCOSE [id number] 04:10:00 Test Item Value Reference Range Comments POC-GLUCOSE METER (BEAKER) 142 mg/dL 70-110 TESTED AT [facility] [address] [facility] (test ofnp=8724) [facility] [address] POCT-GLUCOSE [id number] 03:03:00 Test Item Value Reference Range Comments POC-GLUCOSE METER (BEAKER) 129 mg/dL 70-110 TESTED AT [address] (test hzqk=1976) [facility] [address] [id number] 02:39:00 Test Item Value Reference Range Comments PARTIAL THROMBOPLASTIN TIME (BEAKER) (test 61.7 seconds 22.5-36.0 hsgc=395) POCT-GLUCOSE [id number] 02:05:00 Test Item Value Reference Range Comments POC-GLUCOSE METER (BEAKER) 108 mg/dL 70-110 TESTED AT [address] (test cxeg=9097) [place] [address] POCT-GLUCOSE [id number] 01:28:00 Test Item Value Reference Range Comments POC-GLUCOSE METER (BEAKER) 93 mg/dL 70-110 TESTED AT [address] (test bkoe=9941) [place] [address] TROPONIN [id number] 01:04:00 Test Item Value Reference Range Comments TROPONIN I (BEAKER) (test gzjd=877) 11.40 ng/mL 0.00-0.03 Troponin I (TnI) levels [...] acute neurological disease, and persistent tachyarrhythmia.BLOOD GAS, [id number] 00:14:00 Test Item Value Reference Range Comments PH ARTERIAL (BEAKER) (test kvrp=633) 7.50 7.35-7.45 PCO2 ARTERIAL (BEAKER) (test fjcf=614) 36 mmHg 35-45 PO2 ARTERIAL (BEAKER) (test lpna=706) 56 mmHg 80-90 O2 SATURATION ARTERIAL (BEAKER) (test rvdx=691) 92.1 % 96.0-97.0 HCO3 ARTERIAL (BEAKER) (test jrrb=904) 27 mmol/L 21-29 BASE EXCESS ARTERIAL (BEAKER) (test rbda=948) 4.0 mmol/L -2.0-3.0 PATIENT TEMPERATURE (BEAKER) (test lljy=8720) 36.7 C FIO2 (BEAKER) (test tpna=9356) 40.0 % POCT-GLUCOSE [id number] 00:10:00 Test Item Value Reference Range Comments POC-GLUCOSE METER (BEAKER) 124 mg/dL 70-110 TESTED AT [address] (test ocfq=2666) [place] [address] POCT-GLUCOSE [id number] 23:27:00 Test Item Value Reference Range Comments POC-GLUCOSE METER (BEAKER) 111 mg/dL 70-110 TESTED AT [address] (test pegd=3064) [place] [address] POCT-GLUCOSE [id number] 22:06:00 Test Item Value Reference Range Comments POC-GLUCOSE METER (BEAKER) 131 mg/dL 70-110 TESTED AT [address] (test tcqu=4520) [place] [address] POCT-GLUCOSE [id number] 21:05:00 Test Item Value Reference Range Comments POC-GLUCOSE METER (BEAKER) 145 mg/dL 70-110 TESTED AT [address] (test zfqr=3380) [place] [address] POCT-GLUCOSE [id number] 20:18:00 Test Item Value Reference Range Comments POC-GLUCOSE METER (BEAKER) 154 mg/dL 70-110 TESTED AT [address] (test jiwf=4897) [place] [address] [id number] 19:55:00 Test Item Value Reference Range Comments PARTIAL THROMBOPLASTIN TIME (BEAKER) (test 50.2 seconds 22.5-36.0 rbia=191) POCT-GLUCOSE [id number] 19:07:00 Test Item Value Reference Range Comments POC-GLUCOSE METER (BEAKER) 182 mg/dL 70-110 TESTED AT [address] (test dmzt=5954) [place] [address] POCT-GLUCOSE [id number] 18:03:00 Test Item Value Reference Range Comments POC-GLUCOSE METER (BEAKER) 201 mg/dL 70-110 TESTED AT [address] (test wtvw=9455) [facility] [address] PUL PERF IMAGING, PARTIC, [id number] 17:23:00FINAL REPORT PROCEDURE: V/Q LUNG SCAN CPT CODE: 26392 INDICATION: Chest pain PA suspected high pretest [...] MDReport Verified Date/Time: 08/30/2018 17:23:41 Reading Location: [address] Reading Room POCT-GLUCOSE [id number] 17:03:00 Test Item Value Reference Range Comments POC-GLUCOSE METER (BEAKER) 230 mg/dL 70-110 TESTED AT [address] (test gxnj=9279) [facility] [address] POCT-GLUCOSE [id number] 16:13:00 Test Item Value Reference Range Comments POC-GLUCOSE METER (BEAKER) 255 mg/dL 70-110 TESTED AT [address] (test rfkt=4236) [place] [id number] TROPONIN [id number] 16:01:00 Test Item Value Reference Range Comments TROPONIN I (BEAKER) (test aexp=608) 14.68 ng/mL 0.00-0.03 Troponin I (TnI) levels [...] neurological disease, and persistent tachyarrhythmia.CT, CHEST, WITHOUT [id number] 15 :10:00FINAL REPORT HISTORY: Acute resp illness, [...] MDReport Verified Date/Time: 08/30/2018 15:10:22 [facility] [place] [address] Electronically signed by: BRYON SAINZ M.D. on08/30/2018 03:10 PMPOCT-GLUCOSE [id number] 14:57:00 Test Item Value Reference Range Comments POC-GLUCOSE METER (BEAKER) 273 mg/dL 70-110 TESTED AT [facility] [address] [facility] (test lewc=5841) [facility] [address] POCT-GLUCOSE [id number] 13:10:00 Test Item Value Reference Range Comments POC-GLUCOSE METER (BEAKER) 232 mg/dL 70-110 TESTED AT [address] (test gjen=0112) [facility] [address] RAD, ABDOMEN/KUB, 1 VIEW [id number] 12:44:00Reason for exam:->abdominal distensionFINAL REPORT Two frontal images abdomen and pelvis. NG tube loops in the proximal stomach. There is a paucity of visible small bowel gas but no grossly apparent bowel obstruction. No evidence of free intraperitoneal air. Degenerative spine changes are noted. No concerning calcification. Signed: Mark Parsons Verified Date/Time: 08/30/2018 12: 44:32 Reading Location: [facility] Radiology Reading Room [id number] 12:08:00 Test Item Value Reference Range Comments PARTIAL THROMBOPLASTIN TIME (BEAKER) (test 45.2 seconds 22.5-36.0 olrc=141) POCT-GLUCOSE [id number] 12:05:00 Test Item Value Reference Range Comments POC-GLUCOSE METER (BEAKER) 238 mg/dL 70-110 TESTED AT [address] (test xsxu=5478) [facility] [address] RAD, CHEST, 1 VIEW, NON [id number] 11:56:00Reason for exam:->ET tube manipulationShould this be [...] Verified Date/Time: 08/30/2018 11: 56:52 Reading Location: [facility] Radiology Reading Room POCT- GLUCOSE [id number] 11:05:00 Test Item Value Reference Range Comments POC-GLUCOSE METER (BEAKER) 275 mg/dL 70-110 TESTED AT [address] (test njzc=4710) [facility] [address] LACTIC ACID, ARTERIAL, WHOLE [id number] 09:50:00 Test Item Value Reference Range Comments LACTATE BLOOD ARTERIAL (2) (BEAKER) (test 1.6 mmol/L 0.5-2.2 bqjz=6755) Effective 03/02/2016: Units/Reference Range ChangeNew: 0.5-2.2 mmol/L Previous: 5 -20 mg/dLPOCT-GLUCOSE [id number] 09:44:00 Test Item Value Reference Range Comments POC-GLUCOSE METER (BEAKER) 297 mg/dL 70-110 TESTED AT [address] (test yjvv=1830) [place] [address] TROPONIN [id number] 09:34:00 Test Item Value Reference Range Comments TROPONIN I (BEAKER) (test qgvw=147) 19.27 ng/mL 0.00-0.03 Troponin I (TnI) levels [...] acute neurological disease, and persistent tachyarrhythmia.OXYGEN SATURATION, [id number] 08 :54:00 Test Item Value Reference Range Comments O2 SATURATION (MEASURED) (AKER) (test lxip=4604) 74.7 % POCT-GLUCOSE [id number] 08:33:00 Test Item Value Reference Range Comments POC-GLUCOSE METER (BEAKER) 345 mg/dL 70-110 TESTED AT [address] (test cvef=9100) [facility] [address] POCT-GLUCOSE [id number] 07:42:00 Test Item Value Reference Range Comments POC-GLUCOSE METER (BEAKER) 305 mg/dL 70-110 Notified MILLA CARPENTER/TESTED AT [facility] (test jbae=2257) [address] [place] [address] POCT-GLUCOSE [id number] 07:42:00 Test Item Value Reference Range Comments POC-GLUCOSE METER (BEAKER) 309 mg/dL 70-110 TESTED AT [place] [address] [address] (test ksvz=6869) [facility] [address] URINALYSIS W/ REFLEX URINE [id number] 07:35:00 Test Item Value Reference Range Comments COLOR (BEAKER) (test jvwz=908) Light Yellow CLARITY (BEAKER) (test tdca=055) Clear SPECIFIC GRAVITY UA (BEAKER) (test aljp=369) 1.017 1.001-1.035 PH UA (BEAKER) (test ofqx=006) 5.0 5.0-8.0 PROTEIN UA (BEAKER) (test efvl=057) Negative Negative GLUCOSE UA (BEAKER) (test ivdo=399) >1000 mg/dL Negative KETONES UA (BEAKER) (test vcks=540) 10 mg/dL Negative BILIRUBIN UA (BEAKER) (test ixgv=090) Negative Negative BLOOD UA (BEAKER) (test kxdc=844) Negative Negative NITRITE UA (BEAKER) (test dzkj=881) Negative Negative LEUKOCYTE ESTERASE UA (BEAKER) (test zvje=567) Negative Negative UROBILINOGEN UA (BEAKER) (test djgu=660) 0.2 mg/dL 0.2-1.0 RBC UA (BEAKER) (test tlah=263) 3 /HPF WBC UA (BEAKER) (test kqzh=692) 2 /HPF MUCUS (BEAKER) (test bhyk=6916) Rare AMORPHOUS CRYSTALS (BEAKER) (test dzxk=7551) Rare SOURCE(BEAKER) (test dsgn=4801) [id number] 05:48:00 Test Item Value Reference Range Comments PROCALCITONIN (BEAKER) (test ywsi=6162) 0.26 ng/mL <0.05 SEPSIS RISK (ng/mL)Low: 0.05-0.50Intermediate: 0.51-2.00High: & gt;=2.01LACTIC ACID, ARTERIAL, WHOLE [id number] 04:44:00 Test Item Value Reference Range Comments LACTATE BLOOD ARTERIAL (2) 1.7 mmol/L 0.5-2.2 Specimen slightly hemolyzed (BEAKER) (test sppw=5824) Effective 03/02/2016: Units/Reference Range ChangeNew: 0.5-2.2 mmol/L Previous: 5 -20 mg/dLBLOOD GAS, [id number] 04:42:00 Test Item Value Reference Range Comments PH ARTERIAL (BEAKER) (test iasv=193) 7.40 7.35-7.45 PCO2 ARTERIAL (BEAKER) (test tquz=172) 35 mmHg 35-45 PO2 ARTERIAL (BEAKER) (test dvkf=775) 101 mmHg 80-90 O2 SATURATION ARTERIAL (BEAKER) (test dqxr=153) 97.7 % 96.0-97.0 HCO3 ARTERIAL (BEAKER) (test cbxp=098) 21 mmol/L 21-29 BASE EXCESS ARTERIAL (BEAKER) (test zjyv=193) -3.0 mmol/L -2.0-3.0 PATIENT TEMPERATURE (BEAKER) (test iqvq=3433) 36.9 C FIO2 (BEAKER) (test rmee=5313) 50.0 % [id number] 04:40:00 Test Item Value Reference Range Comments POTASSIUM (BEAKER) (test ludm=615) 4.3 meq/L 3.5-5.1 [id number] 04:40:00 Test Item Value Reference Range Comments GLUCOSE RANDOM (BEAKER) (test jaud=569) 365 mg/dL 70-105 POCT-GLUCOSE [id number] 04:37:00 Test Item Value Reference Range Comments POC-GLUCOSE METER (BEAKER) 370 mg/dL 70-110 TESTED AT [facility] [address] [place] [address] (test gful=3021) [facility] [address] [id number] 04:34:00 Test Item Value Reference Range Comments PARTIAL THROMBOPLASTIN TIME (BEAKER) (test 30.2 seconds 22.5-36.0 uiln=121) Prior to initiating heparinPLATELET [id number] 04:15:00 Test Item Value Reference Range Comments PLATELET COUNT (BEAKER) (test oigq=131) 284 K/CU MM 150-450 Baseline and daily starting prior to initiation of heparin infusionCB ( HEMOGRAM ONLY)2018-08-30 04:15:00 Test Item Value Reference Range Comments WHITE BLOOD CELL COUNT (BEAKER) (test cdqr=870) 16.6 K/ L 3.5-10.5 RED BLOOD CELL COUNT (BEAKER) (test rhfh=909) 4.25 M/ L 4.63-6.08 HEMOGLOBIN (BEAKER) (test dtkp=684) 13.1 GM/DL 13.7-17.5 HEMATOCRIT (BEAKER) (test kzwj=643) 37.6 % 40.1-51.0 MEAN CORPUSCULAR VOLUME (BEAKER) (test fvbi=384) 88.5 fL 79.0-92.2 MEAN CORPUSCULAR HEMOGLOBIN (BEAKER) (test 30.8 pg 25.7-32.2 pnbp=119) MEAN CORPUSCULAR HEMOGLOBIN CONC (BEAKER) (test 34.8 GM/DL 32.3-36.5 nudf=526) RED CELL DISTRIBUTION WIDTH (BEAKER) (test 13.6 % 11.6-14.4 irht=474) PLATELET COUNT (BEAKER) (test wewx=312) 284 K/CU MM 150-450 MEAN PLATELET VOLUME (BEAKER) (test rebu=923) 9.6 fL 9.4-12.4 NUCLEATED RED BLOOD CELLS (BEAKER) (test 0 /100 WBC 0-0 vuju=978) TSH/FREE T4 IF [id number] 03:00:00 Test Item Value Reference Range Comments THYROID STIMULATING HORMONE (BEAKER) (test 0.92 uIU/mL 0.35-4.94 srhr=238) TROPONIN [id number] 02:51:00 Test Item Value Reference Range Comments TROPONIN I (BEAKER) (test jrde=746) 24.37 ng/mL 0.00-0.03 Troponin I (TnI) levels [...] Range Comments B-TYPE NATRIURETIC PEPTIDE (BEAKER) (test nlan=796) 63 pg/mL 0-100 [id number] 02:44:00 Test Item Value Reference Range Comments PARTIAL THROMBOPLASTIN TIME (BEAKER) (test 28.2 seconds 22.5-36.0 bmgr=055) Prior to initiating heparinCBC W/PLT COUNT & AUTO [id number] 02: 41:00 Test Item Value Reference Range Comments WHITE BLOOD CELL COUNT (BEAKER) (test mqqc=696) 13.4 K/ L 3.5-10.5 RED BLOOD CELL COUNT (BEAKER) (test oiog=968) 4.05 M/ L 4.63-6.08 HEMOGLOBIN (BEAKER) (test gezl=923) 12.6 GM/DL 13.7-17.5 HEMATOCRIT (BEAKER) (test byxo=396) 36.4 % 40.1-51.0 MEAN CORPUSCULAR VOLUME (BEAKER) (test kgwp=615) 89.9 fL 79.0-92.2 MEAN CORPUSCULAR HEMOGLOBIN (BEAKER) (test 31.1 pg 25.7-32.2 xyfw=130) MEAN CORPUSCULAR HEMOGLOBIN CONC (BEAKER) (test 34.6 GM/DL 32.3-36.5 qljf=385) RED CELL DISTRIBUTION WIDTH (BEAKER) (test 13.7 % 11.6-14.4 mdho=358) PLATELET COUNT (BEAKER) (test iaqy=788) 223 K/CU MM 150-450 MEAN PLATELET VOLUME (BEAKER) (test ntkc=299) 9.9 fL 9.4-12.4 NUCLEATED RED BLOOD CELLS (BEAKER) (test 0 /100 WBC 0-0 utmo=146) NEUTROPHILS RELATIVE PERCENT (BEAKER) (test 94 % jdwg=646) LYMPHOCYTES RELATIVE PERCENT (BEAKER) (test 5 % hxwc=852) MONOCYTES RELATIVE PERCENT (BEAKER) (test 1 % eqha=848) EOSINOPHILS RELATIVE PERCENT (BEAKER) (test 0 % vumr=157) BASOPHILS RELATIVE PERCENT (BEAKER) (test 0 % towg=986) NEUTROPHILS ABSOLUTE COUNT (BEAKER) (test 12.52 K/ L 1.78-5.38 oraz=344) LYMPHOCYTES ABSOLUTE COUNT (BEAKER) (test 0.61 K/ L 1.32-3.57 hvgp=428) MONOCYTES ABSOLUTE COUNT (BEAKER) (test 0.12 K/ L 0.30-0.82 jqoy=255) EOSINOPHILS ABSOLUTE COUNT (BEAKER) (test 0.00 K/ L 0.04-0.54 wqvx=860) BASOPHILS ABSOLUTE COUNT (BEAKER) (test 0.01 K/ L 0.01-0.08 uhjd=609) IMMATURE GRANULOCYTES-RELATIVE PERCENT (BEAKER) 1 % 0-1 (test glxj=4296) [id number] 02:39:00 Test Item Value Reference Range Comments LIPASE (BEAKER) (test zyns=315) 14 U/L 8-78 COMPREHENSIVE METABOLIC [id number] 02:39:00 Test Item Value Reference Range Comments TOTAL PROTEIN (BEAKER) 6.2 gm/dL 6.0-8.3 (test cgdc=996) ALBUMIN (BEAKER) (test 3.5 g/dL 3.5-5.0 lqhv=1049) ALKALINE PHOSPHATASE 31 U/L 40-150 (BEAKER) (test lfhw=541) BILIRUBIN TOTAL (BEAKER) 0.5 mg/dL 0.2-1.2 (test sliz=525) SODIUM (BEAKER) (test 138 meq/L 136-145 eilc=924) POTASSIUM (BEAKER) (test 4.3 meq/L 3.5-5.1 djtd=832) CHLORIDE (BEAKER) (test 104 meq/L 98-107 milt=612) CO2 (BEAKER) (test 22 meq/L 22-29 vhdy=484) BLOOD UREA NITROGEN 27 mg/dL 7-21 (BEAKER) (test aovq=834) CREATININE (BEAKER) (test 1.49 mg/dL 0.57-1.25 lufy=626) GLUCOSE RANDOM (BEAKER) 339 mg/dL 70-105 (test ttga=065) CALCIUM (BEAKER) (test 8.8 mg/dL 8.4-10.2 difp=238) AST (SGOT) (BEAKER) (test 91 U/L 5-34 mcas=119) ALT (SGPT) (BEAKER) (test 21 U/L 6-55 fcqt=710) EGFR (BEAKER) (test 47 mL/min/1.73 sq m ESTIMATED GFR IS NOT zwtv=9049) ACCURATE CREATININE CLEARANCE IN PREDICTING GLOMERULAR FILTRATION RATE. ESTIMATED GFR IS NOT APPLICABLE FOR DIALYSIS PATIENTS. [id number] 02:39:00 Test Item Value Reference Range Comments MAGNESIUM (BEAKER) (test plsv=426) 1.9 mg/dL 1.6-2.6 LACTIC ACID, VENOUS, WHOLE [id number] 02:34:00 Test Item Value Reference Range Comments LACTATE BLOOD VENOUS (2) 2.8 mmol/L 0.5-2.2 Specimen slightly hemolyzed (BEAKER) (test fljp=7163) Effective 03/02/2016: Units/Reference Range ChangeNew: 0.5-2.2 mmol/L Previous: 5 -20 mg/dLPLATELET [id number] 02:14:00 Test Item Value Reference Range Comments PLATELET COUNT (BEAKER) (test npzw=191) 223 K/CU MM 150-450 RAD, CHEST, 1 VIEW, NON [id number] 01:50:00Reason for exam:->lines placement Should this be [...] Verified Date/Time : 08/30/2018 01:50:34 Reading Location: [facility] C0[facility] Transitional Reading Room
[2019-07-07 15:29] LABS: Absolute Lymphocytes (CBC) 1.9 K/uL (0.7-4.9); Basophils % 0.5 % (0-1.3); Hematocrit 43.2 % (39.6-49.0); Lymphocytes % 14.3 % (15.3-44.8); MPV 7.9 fL (7.6-11.3); RBC Red Blood Cell Count 5.11 M/uL (4.33-5.43)
[2019-07-07 15:36] LABS: Protime INR 1.06
--- NOTE | 2019-07-07 15:47 | RAD REPORT ---
EXAM DESCRIPTION: RAD - Chest Single View - 07/07/2019 3:41 pm CLINICAL HISTORY: DYSPNEA Chest pain. COMPARISON: Chest Single View dated 06/26/2019; Chest Single View dated 04/01/2019; Chest Single View d ated 02/05/2019; Chest Single View dated 12/12/2018 FINDINGS: Portable technique limits examination quality. The lungs are underinflated with atelectasis in both lung bases. The heart is moderately enlarged. No displaced fractures.Sternotomy wires present.
[2019-07-07 15:53] LABS: Albumin 3.9 g/dL (3.4-5.0); Bilirubin Direct 0.2 mg/dL (0-0.2); Bilirubin Total 0.4 mg/dL (0.2-1.0); Potassium 4.7 mmol/L (3.5-5.1); Protein, Total 8.1 g/dL (6.4-8.2)
[2019-07-07 16:21] LABS: Barbiturates NEGATIVE (NEGATIVE); Benzodiazepines NEGATIVE (NEGATIVE); Cocaine NEGATIVE (NEGATIVE); METHAMPHETAM NEGATIVE (NEGATIVE); Methadone NEGATIVE (NEGATIVE); Opiates NEGATIVE (NEGATIVE); Phencyclidine NEGATIVE (NEGATIVE); THC Cannibis NEGATIVE (NEGATIVE)
--- NOTE | 2019-07-07 16:57 | ER ---
Nurse's Notes [facility] Name: Asim Burnett Age: 63 yrs Sex: Male : 1955 Arrival Date: 07/07/2019 Time: 15:08 Bed 3 Private MD: Diagnosis: Hypotension;Opioid abuse;Opioid dependence with intoxication;Opiod Overdose Presentation: 07/07 15:25 Acuity: ORACIO 2 ae4 15:39 Presenting complaint: EMS states: INGESTION OF 15 OXY, UNKNOWN SI VS RECREATIONAL. bp Transition of care: patient was not received from another setting of care. Onset of symptoms is unknown. Risk Assessment: Do you want to hurt yourself or someone else? Patient reports desire/thoughts of hurting themselves or someone else. Provider notified. Initial Sepsis Screen: Does the patient meet any 2 criteria? Systolic BP < 90 mmHg. Altered Mental Status. Yes Does the patient have a suspected source of infection? No. Patient's initial sepsis screen is negative. Care prior to arrival: IV initiated. 20 GA, in the left forearm, Oxygen administered. via a non-rebreather mask. 15:39 Method Of Arrival: EMS: [facility] bp Triage Assessment: 15:05 General: Appears in no apparent distress. obese, Behavior is listless. Pain: Unable to bp use pain scale. Does not appear to understand pain scale. EENT: No deficits noted. Neuro: Level of Consciousness is confused, lethargic, Oriented to none. Cardiovascular: No deficits noted. Respiratory: Airway is patent Respiratory effort is even, unlabored, Respiratory pattern is regular, symmetrical. GI: No signs and/or symptoms were reported involving the gastrointestinal system. : No signs and/or symptoms were reported regarding the genitourinary system. Derm: No deficits noted. Musculoskeletal: No deficits noted. Historical: - Allergies: 15:44 Ibuprofen; bp - Home Meds: 15:44 Abilify 5 mg Oral tab 1 tab once daily [Active]; Advair Diskus 250-50 mcg/dose Inhl bp dsdv 1 puff 2 times per day [Active]; amlodipine 5 mg tab 1 tab once daily [Active]; aspirin 81 mg Oral chew once daily [Active]; atorvastatin 20 mg Oral tab once daily [Active]; Breo Ellipta 100-25 mcg/dose inhalation dsdv 1 puff once daily [Active]; oxycodone-acetaminophen 10-325 mg Oral tab 1 tab QID [Active]; metformin 500 mg Oral tab [Active]; Prevacid 30 mg Oral cpDR 1 cap once daily [Active]; Proventil Inhl [Active]; Lipitor 80 mg Oral tab 1 tab once daily [Active]; spironolactone 25 mg Oral tab 1 tab once daily [Active]; Humalog 100 unit/mL Sub-Q soln 24 unit three times a day [Active]; Insulin Glargine Sub-Q 50 unit nightly [Active]; gabapentin 300 mg Oral cap 2 caps 3 times per day [Active]; clopidogrel 75 mg Oral tab 1 tab once daily [Active]; clonazepam 1 mg Oral tab 1 tab 3 times per day [Active]; Brovana 15 mcg/2 mL inhalation nebu 2 times per day [Active]; Albuterol Inhl [Active]; - PMHx: 15:44 Anxiety; cardiac stent; COPD; Depression; Diabetes - IDDM; High Cholesterol; bp Hypertension; Myocardial infarction; - Immunization history:: Adult Immunizations up to date. - Social history:: Smoking status: unknown. - Ebola Screening: : No symptoms or risks identified at this time. Screenin:05 Abuse screen: Denies threats or abuse. Denies injuries from another. Nutritional bp screening: No deficits noted. Tuberculosis screening: No symptoms or risk factors identified. Fall Risk None identified. Assessment: 15:05 General: SEE TRIAGE NOTE. bp 16:00 Reassessment: PT REMAINS OBTUNDED BUT AIRWAY PATENT AND GAG INTACT. bp 17:24 Reassessment: Patient appears in no apparent distress at this time. Patient is lying in ae4 bed with eyes closed, awakens to voice stimulation and can carry conversation. 18:15 Reassessment: Patient appears in no apparent distress at this time. Reassessment: ae4 Patient is resting with eyes closed. Patient states symptoms have improved. Pain: Denies pain. Neuro: Level of Consciousness is lethargic, Oriented to person, Patient responds to voice stimulation.. 19:15 Reassessment: Hospitalist at bedside to assess patient. lp1 19:35 Reassessment: Patient eye opening to voice; disoriented, oriented to place; continues lp1 to be drowsy. Respiratory: Airway is patent Trachea midline Respiratory effort is even, Breath sounds are clear bilaterally. GI: Abdomen is non-distended. Derm: Skin is intact, Skin is dry, Skin is normal, Skin temperature is cool. 21:10 Reassessment: Dr. Conklin at bedside; RT placing patient on Bipap machine. lp1 21:15 Reassessment: Bipap settings: 15/7, rate of 18, 35% O2. lp1 22:00 Reassessment: Patient appears in no apparent distress at this time. Patient resting, lp1 eyes closed, respirations even, Bipap remains in place; Patient arousable by voice, continues to be drowsy. 23:05 Reassessment: Levophed IV began at this time per [employer] orders; MILLA Gomez at bedside. lp1 Vital Signs: 15:05 BP 85 / 66; Pulse 75; Resp 20; Temp 97.5; Pulse Ox 100% ; Weight 81.65 kg; bp 15:30 BP 82 / 54; Pulse 70; Resp 20; Pulse Ox 100% ; bp 16:00 BP 74 / 58; Pulse 68; Resp 18; Pulse Ox 100% ; bp 16:26 BP 88 / 66; Pulse 65; Resp 10; Pulse Ox 100% ; bp 17:31 BP 92 / 83; Pulse 63; Resp 18; Pulse Ox 91% on R/A; ae4 18:16 BP 84 / 57; Pulse 63; Resp 17; Pulse Ox 96% on Venturi mask; ae4 19:31 BP 83 / 57; Pulse 66; Resp 17; Pulse Ox 98% on 30% Venturi mask; lp1 20:47 BP 85 / 83 LA Supine (auto/reg); Pulse 64 MON; Resp 14 S; Pulse Ox 95% on Simple Mask; ds4 21:00 BP 91 / 70; Pulse 65; Resp 17; Pulse Ox 96% on 30% Venturi mask; lp1 21:21 BP 108 / 74; Pulse 68; Resp 18; Pulse Ox 99% on BiPAP; ds4 21:42 BP 102 / 78 LA Supine (auto/reg); Pulse 71 MON; Resp 24 A; Temp 97.0(A); Pulse Ox 99% ds4 on BiPAP; 22:15 BP 82 / 56; Pulse 71; Resp 17; Pulse Ox 99% on 35% BiPAP; lp1 22:35 BP 75 / 51; Pulse 69; Resp 17; Pulse Ox 100% on 35% BiPAP; lp1 23:00 BP 75 / 49; Pulse 68; Resp 15; Pulse Ox 100% on 35% BiPAP; lp1 23:05 BP 92 / 54; Pulse 66; Resp 15; Pulse Ox 100% on 35% BiPAP; lp1 20:47 PT Sleeping ds4 [place] Coma Score: 16:35 Eye Response: to pain(2). Verbal Response: inappropriate words(3). Motor Response: jr8 localizes pain(5). Total: 10. ED Course: 15:05 Patient has correct armband on for positive identification. Bed in low position. Call bp light in reach. Side rails up X2. Adult w/ patient. 15:05 Arm band placed on right wrist. ae4 15:08 Patient arrived in ED. ae4 15:10 Inserted saline lock: 20 gauge in right antecubital area, using aseptic technique. ae4 Blood collected. 15:11 Reji Santoro PA is PHCP. jr8 15:11 Xu Lowry MD is Attending Physician. jr8 15:15 Safety Checks: The door is open or patient has been placed in a hallway bed/chair. A ss family member and/or friend is present and encouraged to stay. Items have not been removed Sitter present at this time. 15:22 Ryan Murcia, RN is Primary Nurse. ae4 15:25 Triage completed. ae4 15:30 Safety Checks: The door is open or patient has been placed in a hallway bed/chair. A ss family member and/or friend is present and encouraged to stay. Items have not been removed Sitter present at this time. 15:41 XRAY CXR (1 view) In Process Unspecified. EDMS 15:45 Safety Checks: The door is open or patient has been placed in a hallway bed/chair. A ss family member and/or friend is present and encouraged to stay. Items have not been removed Sitter present at this time. 15:53 EKG done, by ED staff, reviewed by Xu Lowry MD. ms 16:00 Safety Checks: The door is open or patient has been placed in a hallway bed/chair. A ss family member and/or friend is present and encouraged to stay. Items have not been removed Sitter present at this time. 16:15 Safety Checks: The door is open or patient has been placed in a hallway bed/chair. A ss family member and/or friend is present and encouraged to stay. Items have not been removed Sitter present at this time. 16:30 Safety Checks: The door is open or patient has been placed in a hallway bed/chair. A ss family member and/or friend is present and encouraged to stay. Items have not been removed Sitter present at this time. 16:45 Safety Checks: The door is open or patient has been placed in a hallway bed/chair. A ss family member and/or friend is present and encouraged to stay. Items have not been removed Sitter present at this time. 16:56 Jose Carpio MD is Hospitalizing Provider. jr8 17:00 Safety Checks: The door is open or patient has been placed in a hallway bed/chair. A ss family member and/or friend is present and encouraged to stay. Items have not been removed Sitter present at this time. 17:15 Safety Checks: The door is open or patient has been placed in a hallway bed/chair. A ss family member and/or friend is present and encouraged to stay. Items have not been removed Sitter present at this time. 17:30 Safety Checks: The door is open or patient has been placed in a hallway bed/chair. A ss family member and/or friend is present and encouraged to stay. Items have not been removed Sitter present at this time. 17:45 Safety Checks: The door is open or patient has been placed in a hallway bed/chair. A ss family member and/or friend is present and encouraged to stay. Items have not been removed Sitter present at this time. 18:00 Safety Checks: The door is open or patient has been placed in a hallway bed/chair. A ss family member and/or friend is present and encouraged to stay. Items have not been removed Sitter present at this time. 18:15 Safety Checks: The door is open or patient has been placed in a hallway bed/chair. A ss family member and/or friend is present and encouraged to stay. Items have not been removed Sitter present at this time. 18:30 Safety Checks: The door is open or patient has been placed in a hallway bed/chair. A ss family member and/or friend is present and encouraged to stay. Items have not been removed Sitter present at this time. 19:32 No provider procedures requiring assistance completed. Patient admitted, IV remains in lp1 place. Administered Medications: 15:00 Drug: NARcan 0.4 mg Route: IVP; Site: left forearm; ae4 16:04 Follow up: Response: No adverse reaction bp 15:07 Drug: NS 0.9% 500 ml Route: IV; Rate: bolus; Site: left forearm; ae4 16:26 Drug: NS 0.9% 500 ml Route: IV; Rate: bolus; Site: left forearm; bp Point of Care Testing: Blood Glucose: 22:21 Blood Glucose: 135 mg/dL; lp1 Ranges: Outcome: 16:57 Decision to Hospitalize by Provider. jr8 19:32 critical lp1 19:32 Instructed on the need for admit. 23:00 Admitted to ICU accompanied by nurse, accompanied by tech, via stretcher, room 7, with lp1 oxygen, on monitor, with chart, Report called to MILLA Gomez 23:13 Patient left the ED. lp1 Signatures: Dispatcher [employer] EDMS Denise Calixto ms, Shelby, RN RN ss Courtney Will RN RN lp1 Reji Santoro PA PA jr8 Ilya Roper ds4 Bear Anthony RN RN bp Ryan Murcia, MILLA RN ae4 Corrections: (The following items were deleted from the chart) 18:40 15:39 Risk Assessment: Do you want to hurt yourself or someone else? Unable to obtain bpss 19:58 19:31 BP 83 / 57; Pulse 66bpm; Resp 17bpm; Pulse Ox 98% 02 15% Non-rebreather mask; lp1 lp1 23:13 23:10 Admitted to ICU lp1 lp1
--- NOTE | 2019-07-07 16:57 | EDPHYS ---
Physician Documentation [facility] Name: Asim Burnett Age: 63 yrs Sex: Male : 1955 Arrival Date: 07/07/2019 Time: 15:08 Bed 3 Private MD: ED Physician Xu Lowry HPI: 07/07 16:35 This 63 yrs old Male presents to ER via EMS with complaints of Overdose. jr8 16:35 The patient presents to the emergency department after a known overdose, that was jr8 intentional. Context: Method: the patient has a confirmed or suspected ingestion, Time: at 13:00, Extent: the OD/poisoning occurred at at home. Associated signs and symptoms: Pertinent positives: decreased level of consciousness, depression, loss of consciousness. Severity of symptoms: At their worst the symptoms were moderate in the emergency department the symptoms have improved mildly. It is unknown whether or not the patient has had similar symptoms in the past. It is unknown whether or not the patient has recently seen a physician. EMS was called out by family after finding patient unconscious and unresponsive at home. Stated that he took too many of his medication. Stated that he had been upset and depressed today. Family stated that he could have taken over 20 Oxycodone/APAP 10-325mg pills. EMS stated that he had agonal respirations on scene. Gave Narcan 2 mg with improvement but still unable to arouse patient. Patient upon arrival is arousable by tactile stimulus but still very sluggish and will not follow commands . Historical: - Allergies: 15:44 Ibuprofen; bp - Home Meds: 15:44 Abilify 5 mg Oral tab 1 tab once daily [Active]; Advair Diskus 250-50 mcg/dose Inhl bp dsdv 1 puff 2 times per day [Active]; amlodipine 5 mg tab 1 tab once daily [Active]; aspirin 81 mg Oral chew once daily [Active]; atorvastatin 20 mg Oral tab once daily [Active]; Breo Ellipta 100-25 mcg/dose inhalation dsdv 1 puff once daily [Active]; oxycodone-acetaminophen 10-325 mg Oral tab 1 tab QID [Active]; metformin 500 mg Oral tab [Active]; Prevacid 30 mg Oral cpDR 1 cap once daily [Active]; Proventil Inhl [Active]; Lipitor 80 mg Oral tab 1 tab once daily [Active]; spironolactone 25 mg Oral tab 1 tab once daily [Active]; Humalog 100 unit/mL Sub-Q soln 24 unit three times a day [Active]; Insulin Glargine Sub-Q 50 unit nightly [Active]; gabapentin 300 mg Oral cap 2 caps 3 times per day [Active]; clopidogrel 75 mg Oral tab 1 tab once daily [Active]; clonazepam 1 mg Oral tab 1 tab 3 times per day [Active]; Brovana 15 mcg/2 mL inhalation nebu 2 times per day [Active]; Albuterol Inhl [Active]; - PMHx: 15:44 Anxiety; cardiac stent; COPD; Depression; Diabetes - IDDM; High Cholesterol; bp Hypertension; Myocardial infarction; - Immunization history:: Adult Immunizations up to date. - Social history:: Smoking status: unknown. - Ebola Screening: : No symptoms or risks identified at this time. ROS: 16:35 Unable to obtain ROS due to obtunded state. jr8 Exam: 16:35 Eyes: Pupils size 2 bilaterally and sluggish. Lids and lashes normal. Conjunctiva jr8 and sclera are non-icteric and not injected. Cornea within normal limits. Periorbital areas with no swelling, redness, or edema. ENT: Nares patent. No nasal discharge, no septal abnormalities noted. Tympanic membranes are normal and external auditory canals are clear. Oropharynx with no redness, swelling, or masses, exudates, or evidence of obstruction, uvula midline. Mucous membranes moist. Neck: Trachea midline, no thyromegaly or masses palpated, and no cervical lymphadenopathy. Supple, full range of motion without nuchal rigidity, or vertebral point tenderness. No Meningismus. Cardiovascular: Regular rate and rhythm with a normal S1 and S2. No gallops, murmurs, or rubs. Normal PMI, no JVD. No pulse deficits. Respiratory: Lungs have equal breath sounds bilaterally, clear to auscultation and percussion. No rales, rhonchi or wheezes noted. No increased work of breathing, no retractions or nasal flaring. RR 20 bpm Abdomen/GI: Soft, non-tender, with normal bowel sounds. No distension or tympany. No guarding or rebound. No evidence of tenderness throughout. Back: No spinal tenderness. No costovertebral tenderness. Full range of motion. Skin: Warm, dry with normal turgor. Normal color with no rashes, no lesions, and no evidence of cellulitis. MS/ Extremity: Pulses equal, no cyanosis. Neurovascular intact. Full, normal range of motion. 16:35 Neuro: Orientation: Not oriented to person, place, time, situation, Mentation: slow to respond, unable to follow commands, Memory: unable to test, Cranial nerves: unable to test, Cerebellar function: unable to test, Motor: moves all fours, Sensation: no obvious gross deficits, Gait: not tested. seizure activity, is not displayed by the patient, Abnormal movements: there are no abnormal movements. Vital Signs: 15:05 BP 85 / 66; Pulse 75; Resp 20; Temp 97.5; Pulse Ox 100% ; Weight 81.65 kg; bp 15:30 BP 82 / 54; Pulse 70; Resp 20; Pulse Ox 100% ; bp 16:00 BP 74 / 58; Pulse 68; Resp 18; Pulse Ox 100% ; bp 16:26 BP 88 / 66; Pulse 65; Resp 10; Pulse Ox 100% ; bp 17:31 BP 92 / 83; Pulse 63; Resp 18; Pulse Ox 91% on R/A; ae4 18:16 BP 84 / 57; Pulse 63; Resp 17; Pulse Ox 96% on Venturi mask; ae4 19:31 BP 83 / 57; Pulse 66; Resp 17; Pulse Ox 98% on 30% Venturi mask; lp1 20:47 BP 85 / 83 LA Supine (auto/reg); Pulse 64 MON; Resp 14 S; Pulse Ox 95% on Simple Mask; ds4 21:00 BP 91 / 70; Pulse 65; Resp 17; Pulse Ox 96% on 30% Venturi mask; lp1 21:21 BP 108 / 74; Pulse 68; Resp 18; Pulse Ox 99% on BiPAP; ds4 21:42 BP 102 / 78 LA Supine (auto/reg); Pulse 71 MON; Resp 24 A; Temp 97.0(A); Pulse Ox 99% ds4 on BiPAP; 22:15 BP 82 / 56; Pulse 71; Resp 17; Pulse Ox 99% on 35% BiPAP; lp1 22:35 BP 75 / 51; Pulse 69; Resp 17; Pulse Ox 100% on 35% BiPAP; lp1 23:00 BP 75 / 49; Pulse 68; Resp 15; Pulse Ox 100% on 35% BiPAP; lp1 23:05 BP 92 / 54; Pulse 66; Resp 15; Pulse Ox 100% on 35% BiPAP; lp1 20:47 PT Sleeping ds4 [place] Coma Score: 16:35 Eye Response: to pain(2). Verbal Response: inappropriate words(3). Motor Response: jr8 localizes pain(5). Total: 10. MDM: 15:11 Patient medically screened. jr8 16:54 Data reviewed: vital signs, nurses notes, lab test result(s), EKG, radiologic studies, jr8 plain films. Data interpreted: Pulse oximetry: on 100 % NRB is 100 %. Interpretation: acceptable. Counseling: I had a detailed discussion with the patient and/or guardian regarding: the historical points, exam findings, and any diagnostic results supporting the discharge/admit diagnosis, lab results, radiology results, the need for further work-up and treatment in the hospital. ED course: Patient able to talk to us now. Stated that he was depressed which is why he took all of that medication. Patient continues to have hypotension but with acceptable MAP. Still drowsy. Will be admitted to ICU overnight . 07/07 15:11 Order name: Acetaminophen; Complete Time: 16:11 [facility] 07/07 15:11 Order name: Basic Metabolic Panel; Complete Time: 16:11 [facility] 07/07 15:11 Order name: CBC with Diff; Complete Time: 16:11 [facility] 07/07 15:11 Order name: ETOH Level; Complete Time: 16:11 [facility] 07/07 15:11 Order name: Hepatic Function; Complete Time: 16:11 [facility] 07/07 15:11 Order name: PT-INR; Complete Time: 16:11 [facility] 07/07 15:11 Order name: Ptt, Activated; Complete Time: 16:11 [facility] 07/07 15:11 Order name: Salicylate; Complete Time: 16:11 [facility] 07/07 15:11 Order name: Urine Drug Screen; Complete Time: 16:30 [facility] 07/07 15:57 Order name: Urine Dipstick--Ancillary (enter results); Complete Time: 12:54 eb 07/07 16:34 Order name: Tylenol Level: Draw \T\ 17:00 Hrs; Complete Time: 17:51 07/07 21:50 Order name: ABG Arterial Blood Gas; Complete Time: 12:54 EDMS 07/07 22:07 Order name: Protime (+INR); Complete Time: 12:54 EDMS 07/07 22:14 Order name: Liver (Hepatic) Function; Complete Time: 12:54 EDMS 07/07 15:11 Order name: EKG; Complete Time: 15:12 [facility] 07/07 15:11 Order name: EKG - Nurse/Tech; Complete Time: 15:53 8 07/07 15:11 Order name: IV Saline Lock; Complete Time: 15:24 8 07/07 15:11 Order name: Labs collected and sent; Complete Time: 15:24 8 07/07 15:11 Order name: Urine Dipstick-Ancillary (obtain specimen); Complete Time: 15:50 8 07/07 15:11 Order name: Straight Cath - Urine; Complete Time: 15:23 [facility] 07/07 15:24 Order name: XRAY CXR (1 view); Complete Time: 16:11 8 07/07 22:14 Order name: Acetaminophen Level; Complete Time: 12:54 EDMS Administered Medications: 15:00 Drug: NARcan 0.4 mg Route: IVP; Site: left forearm; ae4 16:04 Follow up: Response: No adverse reaction bp 15:07 Drug: NS 0.9% 500 ml Route: IV; Rate: bolus; Site: left forearm; ae4 16:26 Drug: NS 0.9% 500 ml Route: IV; Rate: bolus; Site: left forearm; bp Point of Care Testing: Blood Glucose: 22:21 Blood Glucose: 135 mg/dL; lp1 Ranges: Critical Glucose Levels:Adult <50 mg/dl or >400 mg/dl <40 mg/dl or >180 mg/dl Disposition: 07/08 07:13 Co-signature as Attending Physician, Xu Lowry MD. rn Disposition: 07/07/19 16:57 Hospitalization ordered by Jose Carpio for Inpatient Admission. Preliminary diagnosis are Hypotension, Opioid abuse, Opioid dependence with intoxication, Opiod Overdose . - Bed requested for Intensive Care Unit. - Status is Inpatient Admission. lp1 - Condition is Fair. - Problem is new. - Symptoms have improved. UTI on Admission? No Signatures: Dispatcher [employer] EDMS Xu Lowry MD MD rn Pena, Laura, RN RN lp1 Reji Santoro PA PA jr8 Geovanna Naranjo, MILLA RN cg Bear Anthony, MILLA RN bp Ryan Murcia RN RN ae4 Corrections: (The following items were deleted from the chart) 07/07 18:57 16:57 Hospitalization Ordered by Jose Carpio MD for Inpatient Admission. Preliminary cg diagnosis is Hypotension; Opioid abuse; Opioid dependence with intoxication; Opiod Overdose . Bed requested for Telemetry/MedSurg (Inpatient). Status is Inpatient Admission. Condition is Fair. Problem is new. Symptoms have improved. UTI on Admission? No. jr8 23:13 18:57 07/07/2019 16:57 Hospitalization Ordered by Jose Carpio MD for Inpatient lp1 Admission. Preliminary diagnosis is Hypotension; Opioid abuse; Opioid dependence with intoxication; Opiod Overdose . Bed requested for Intensive Care Unit. Status is Inpatient Admission. Condition is Fair. Problem is new. Symptoms have improved. UTI on Admission? No. cg
--- NOTE | 2019-07-07 17:38 | EKG ---
Test Date: 2019-07-07 Test Time: 15:30:50 Dining Chair Seat Cushion Trimmer: MEASUREMENT RESULTS: Intervals: Rate: 70 NC: 184 QRSD: 90 QT: 566 QTc: 611 [place]: P: 29 NC: 184 QRS: -34 T: 0 INTERPRETIVE STATEMENTS: Normal sinus rhythm Left axis deviation ST & T wave abnormality, consider anterior ischemia Prolonged QT Abnormal ECG Compared to ECG 06/26/2019 11:10:18 prolonged QT interval now present ST (T wave) deviation still present Electronically Signed On 07-07-19 17:37:47 CDT by Dre Mai
[2019-07-07 20:17] LABS: Urine Blood TRACE (NEG); Urine Glucose 2+ (NEG); Urine Protein TRACE (NEG); Urine pH 5.5 (5.0-7.0)
[2019-07-07] MEDS ORDERED: D50W 25 GM/50 ML SYRINGE IV PRN (20:37)
[2019-07-07] MEDS ORDERED: GLUCAGON 1 MG/VIAL IM PRN (20:37)
[2019-07-07] MEDS ORDERED: NALOXONE 0.4 MG/ML VIAL IV PRN (20:39)
[2019-07-07] MEDS ORDERED: NA CHLORIDE 0.9% 1,000 ML IV ONE ×2 (20:44→23:20)
[2019-07-07] MEDS: INSULIN -REGULAR HUMAN 50 UNIT/0.5 ML ML SQ SCH (21:00)
[2019-07-07 21:48] LABS: Arterial Blood Carboxyhemoglob 0.5 % (0-1.5); Blood Gas Oxyhemoglobin 91.1 % (94-97); Blood O2 Saturation 92.4 % (92-98.5)
[2019-07-07 21:55] LABS: Protime INR 1.04
[2019-07-07 22:12] LABS: Bilirubin Direct 0.1 mg/dL (0-0.2); Bilirubin Total 0.3 mg/dL (0.2-1.0); Protein, Total 8.4 g/dL (6.4-8.2)
[2019-07-07] MEDS ORDERED: NA CHLORIDE 0.9% 1,000 ML ONE (22:36)
[2019-07-07] MEDS: NA CHLORIDE 0.9% 1,000 ML IV SCH (22:40)
[2019-07-07] MEDS ORDERED: NA CHLORIDE 0.9% 500 ML IV ONE (22:42)
[2019-07-07] MEDS ORDERED: NOREPINEPHRINE 4mg/D5W 250mL 4 MG/250 ML BAG IV ONE (22:50)
[2019-07-07] MEDS ORDERED: NOREPINEPHRINE 4 MG in D5W 250 ML IV PRN ×2 (23:02→23:20)
--- NOTE | 2019-07-08 00:32 | HP ---
Date of Admission: 07/07/2019 Primary Care Physician: Dr. Jaffe. Chief Complaint: Drug overdose, intentional. Code status: Full History Of Present Illness: Patient is a 63-year-old male with past medical history of hypertension, restrictive lung disease, diabetes, hyperlipidemia, sleep apnea, generalized anxiety disorder, who has been in and out of the hospital several times this year, is on chronic narcotics, who according to wound care physician has high threshold for overdose. Patient apparently had left AMA on the previous visit on 06/27/2019. Patient apparently ingested 20 pills of his oxycodone and acetaminophen tablets at a dose of 10 mg and 325 mg. patient ingested these medications at 1 p.m., was brought in by the family member. Patient is somnolent, somewhat confused. Patient's symptoms are constant, moderate, progressively worsening. Workup revealed a creatinine of 1.37, AST 87, ALT 83. His WBC count was 13.3. INR was 1.06. Tox screen showed acetaminophen level of 128, 4 hour level from 1 p.m. ingestion time showed Tylenol level of 82, which is below the treatment line for acetylcysteine. Poison Control was contacted by myself, who did not recommend any acetylcysteine, recommended rechecking Tylenol level as well as LFTs and INR in 4 hours. Patient was then referred for admission. When seen in the ER, he was drowsy, able to be aroused, not in any acute distress. Past Medical History: Hypertension, restrictive lung disease, diabetes, hyperlipidemia, sleep apnea, anxiety disorder, chronic pain syndrome, history of [place] with cardiac stent, depression, oxygen dependent at home of 4 L. Past Surgical History: Coronary artery disease status post stent, pancreatic surgery, cholecystectomy, several back surgeries, cardiac stent x1, ERCP in 2008 , had something punctured in the pancreas, transferred to [facility] for exploratory laparotomy, had feeding tube that was reversed, tracheostomy from previous surgery in [facility]. Allergies: IBUPROFEN. Medications: List reviewed. Social History: No smoking, alcohol, or illicit drug use. Lives at home with family. Family History: Father had heart disease and diabetes. Mother had heart disease, hypertension, lung disease, GI disease, diabetes, stroke, liver and kidney disease. Brother had also had heart disease, liver and kidney disease, hypertension, diabetes, stroke, and lung disease. Sister has heart disease and GI disease. Review of Systems: Unable to be obtained due to patient's medical condition. Physical Examination: Vital Signs: Blood pressure 85/66, pulse 75, respirations 20, temperature 97.5 , O2 100% on non-rebreather. General: Asleep, but arousable, not in any acute distress. Obese male. HEENT: Normocephalic, atraumatic. PERRLA, EOMI. Dry mucous membranes. Oropharynx is clear. Poor dentition. Conjunctivae anicteric. Neck: Supple. No JVD. Trachea midline. CV: S1, S2. Regular rate and rhythm. Peripheral pulses present. Respiratory: Diminished breath sounds overall. No wheezing or stridor. Gastrointestinal: Abdomen is soft, nontender, nondistended. Positive bowel sounds. Extremities: No clubbing, cyanosis, or edema. No calf tenderness. Neuro: Unable to properly assess due to patient's medical condition, however, patient wakes up to name, follows commands. Moves all 4 extremities. Speech is somewhat slurred due to somnolence. Laboratory Data: Acetaminophen level 128.2 upon arrival, 4 hour level from ingestion is 82.1, otherwise UDS is negative. WBC 13.3, H and H 14.4 and 43.2, platelets 306. Neutrophils 80%. INR 1.06. Sodium 137, potassium 4.7, chloride 104, CO2 21, BUN 32, creatinine 1.37, glucose 322, calcium 8.6, AST 87 , ALT 83. Imaging Studies: Chest x-ray personally reviewed shows lungs underinflated with atelectasis in both lungs. Heart moderately enlarged. No displaced fractures. Sternotomy wires present. EKG shows normal sinus rhythm, left axis deviation, ST-T wave abnormality, rate of 70. Assessment And Plan: A 63-year-old male with; 1. Acute Tylenol toxicity. Levels are below the treatment line for acetylcysteine. Poison Control contacted. We will repeat Tylenol, LFTs, and INR in 4 hours. We will continue to monitor and we will continue with IV fluids. 2. Intentional drug overdose. We will place on suicide precautions, place in ICU with 1 on 1 setting. 3. Acute kidney injury. Creatinine is above baseline. We will continue with IV fluids and monitor. 4. Elevated liver enzymes secondary to Tylenol toxicity. We will continue to monitor. 5. Insulin-dependent diabetes with hyperglycemia. We will start on sliding scale insulin and monitor Accu-Cheks. 6. Essential hypotension secondary to respiratory depression and drug overdose. We will continue with IV fluids and monitor closely. Keep the MAP of 65 or above. We will start on pressors if MAP falls below 65. 7. Mixed hyperlipidemia. Avoid statins for now due to hepatic toxicity. 8. Generalized anxiety disorder. 9. Major depressive disorder, recurrent, with current episode. 10. Gastroesophageal reflux disease without esophagitis. Continue PPI. 11. Obstructive sleep apnea. Place on CPAP at night. 12. Coronary artery disease status post stent, [place] artery and [place] heart without angina. 13. Morbid obesity. Plan; admit the patient to ICU, place as inpatient. Length of stay greater than 2 midnights. KAY Voice ID: [id number] MTDD
[2019-07-08 02:19] VITALS: BMI 36.0
[2019-07-08] MEDS: NA CHLORIDE 0.9% 1,000 ML IV SCH ×3 (05:12→17:06)
[2019-07-08 05:34] LABS: Absolute Lymphocytes (CBC) 2.8 K/uL (0.7-4.9); Basophils % 0.4 % (0-1.3); Lymphocytes % 18.8 % (15.3-44.8); MPV 7.5 fL (7.6-11.3); RBC Red Blood Cell Count 4.69 M/uL (4.33-5.43)
[2019-07-08 06:01] LABS: ALT/SGPT 88 U/L (12-78); AST/SGOT 192 U/L (15-37); Albumin 3.5 g/dL (3.4-5.0); Alkaline Phosphatase 79 U/L (45-117); BUN Blood Urea Nitrogen 32 mg/dL (7-18); Bicarbonate 24 mmol/L (21-32); Bilirubin Direct 0.1 mg/dL (0-0.2); Bilirubin Total 0.4 mg/dL (0.2-1.0); Glucose Level 102 mg/dL (74-106); Magnesium 1.7 mg/dL (1.8-2.4); Phosphorus 5.2 mg/dL (2.5-4.9); Protein, Total 7.2 g/dL (6.4-8.2); Sodium Level 144 mmol/L (136-145)
[2019-07-08 06:04] LABS: Arterial Blood Carboxyhemoglob 1.1 % (0-1.5); Blood Gas Oxyhemoglobin 93.8 % (94-97); Blood O2 Saturation 95.5 % (92-98.5)
[2019-07-08] MEDS: INSULIN -REGULAR HUMAN 50 UNIT/0.5 ML ML SQ SCH ×4 (07:23→21:00)
[2019-07-08] MEDS: THIAMINE 200 MG/2 ML INJ IVP SCH (08:11)
[2019-07-08] MEDS: PANTOPRAZOLE 40MG TABLET PO SCH (08:30)
[2019-07-08] MEDS: ASPIRIN EC 81 MG TAB PO SCH (08:45)
[2019-07-08] MEDS: ARIPiprazole 5 MG TAB PO SCH (08:45)
[2019-07-08] MEDS: CLOPIDOGREL 75 MG TABLET PO SCH (08:45)
[2019-07-08] MEDS ORDERED: HOME MED 1 EA UNK (Fluticasone/Vilanterol [Breo Ellipta 100-25 Mcg Inh] 1 PUFF) IH SCH (09:00)
[2019-07-08] MEDS ORDERED: FAMOTIDINE 20 MG/2 ML VIAL IV SCH (09:00)
[2019-07-08] MEDS ORDERED: SPIRONOLACTONE 25 MG TABLET PO SCH (09:00)
[2019-07-08] MEDS ORDERED: BUMETANIDE 1 MG TABLET PO SCH (09:00)
[2019-07-08] MEDS ORDERED: LISINOPRIL 5 MG TAB PO SCH (09:00)
[2019-07-08] MEDS ORDERED: METOPROLOL TAR 50 MG TAB PO SCH (09:00)
[2019-07-08] MEDS ORDERED: MAGNESIUM SULFATE 1 gm IVPB 1 GM/100 ML BAG IV ONE (09:19)
[2019-07-08] MEDS: FOLIC ACID 1 MG in NA CHLORIDE 0.9% 50 ML IV SCH (09:27)
--- NOTE | 2019-07-08 12:05 | P.CNS ---
Date of Consult: 07/08/19 Chief Complaint: Respiratory failure History of Present Illness: Patient is 63 years of age recurrent hospital admissions admitted with shortness of breath patient has sleep apnea and non compliant with his BiPAP machine the mention of overdose with oxycodone all the patient denies he is back at his baseline very stable patient was hypotensive and was weaned off Levophed very alert oriented responsive cooperative Allergies ibuprofen Allergy (Intermediate, Verified 07/08/19 01:43) Hives/Rash Home Medications: Albuterol Inhaler [Ventolin Inhaler] 2 puff IH QID PRN 07/08/19 Albuterol Sulfate [Proair Respiclick] 2 puff IH QID PRN 07/08/19 Aripiprazole [Abilify] 10 mg PO DAILY 07/08/19 Aspirin [Aspir-Low] 81 mg PO DAILY 07/08/19 Atorvastatin Calcium [Lipitor] 20 mg PO BEDTIME 07/08/19 Bumetanide [Bumex] 2 mg PO BID 07/08/19 Clopidogrel Bisulfate [Plavix] 75 mg PO DAILY 07/08/19 Empagliflozin [Jardiance] 25 mg PO DAILY 07/08/19 Fluticasone/Vilanterol [Breo Ellipta 100-25 Mcg INH] 1 puff IH DAILY 07/08/19 Furosemide [Lasix] 20 mg PO DAILY 07/08/19 Gabapentin 600 mg PO TID 07/08/19 Insulin Glulisine [Apidra] 15 unit SQ TID 07/08/19 Lisinopril [Prinivil] 5 mg PO DAILY 07/08/19 Metformin HCl 1,000 mg PO BID 07/08/19 Metoprolol Tartrate [Lopressor] 50 mg PO DAILY 07/08/19 Omeprazole [Prilosec] 40 mg PO DAILY 07/08/19 Oxycodone HCl [Oxycontin] 10 mg PO TID PRN 07/08/19 Oxycodone HCl/Acetaminophen [Oxycodone-Acetaminophen 10-325] 1 each PO TID PRN 07/08/19 Spironolactone 25 mg PO DAILY 07/08/19 Trazodone [Desyrel] 30 mg PO BEDTIME 07/08/19 clonazePAM [Clonazepam] 1 mg PO QID PRN 07/08/19 - Past Medical/Surgical History Diabetic: Yes -: hyperlipidemia, -: COPD -: DM -: PAD -: depression -: Gastroesophageal reflux disease -: Obstructive sleep apnea- uses CPAP at home-home O2 at 4L -: anxiety disorder, hypertension -: Coronary artery disease status post stent -: Pancreatic surgery - valve repair -: cholecystectomy -: several back surgery -: Cardiac stent x1 -: 2008 ercp, punctured something in his pancreas, then transfered to -: [facility] for open exploratory lap, had feeding tube that has reversed -: trach from previous surgery at [facility] -: CABG x 3 - Family History Father Medical History: Heart disease, Diabetes Mother Medical History: Heart disease, Hypertension, Lung disease, GI disease, Diabetes , Stroke, Liver disease, Kidney disease Brother Medical History: Heart disease, Hypertension, Lung disease, Diabetes, Stroke, Liver disease, Kidney disease Notes: 2 brothers Sister Medical History: Heart disease, GI disease Notes: no known illness - Social History Smoking Status: Unknown if ever smoked Alcohol use: Yes CD- Drugs: Yes Caffeine use: Yes Place of Residence: Home Review of Systems General: Weakness Respiratory: Shortness of Breath Physical Examination Temp Pulse Resp BP Pulse Ox 97.6 F 86 16 98/64 100 07/08/19 04:00 07/08/19 06:15 07/08/19 06:15 07/08/19 06:15 07/08/19 06:15 General: Alert, In no apparent distress, Oriented x3 Respiratory: Clear to auscultation bilaterally, Diminished Cardiovascular: No edema, Regular rate/rhythm, Normal S1 S2 Laboratory Data (last 24 hrs) 07/07/19 15:10: PT 12.5, INR 1.06, APTT 27.3 07/07/19 15:10: WBC 13.3 H D, Hgb 14.4, Hct 43.2, Plt Count 306 07/07/19 15:10: Sodium 137, Potassium 4.7, BUN 32 H D, Creatinine 1.37 H, Glucose 322 H, Total Bilirubin 0.4, AST 87 H, ALT 83 H, Alkaline Phosphatase 96 - Problems (1) Overdose Current Visit: Yes Status: Chronic Plan: Patient is 63 years of age recurrent hospital admission he has bipolar disorder sleep apnea and non compliant chronic pain apparently he had taken extra doses of oxycodone he is back at his baseline renal function is stable weaned off vasopressors patient's white count is elevated probably has underlying diastolic dysfunction will discuss with the is overall prognosis is very poor recurrent hospital admissions noncompliance with his BiPAP (2) Respiratory failure Current Visit: Yes Status: Acute Plan: Patient has chronic respiratory failure non compliant with BiPAP Qualifiers: Chronicity: chronic
--- NOTE | 2019-07-08 15:36 | PN ---
Date of Progress Note: 07/08/2019 Subjective: Patient seen and examined. Chart reviewed and case discussed with RN. The patient is m uch more awake and alert this morning. Does not remember much from yesterday, however, states that joshua raymundo did not take more than 3 pills. He understands that he is on chronic narcotics. Admits to having used more than prescribed in the past. Medication List: Reviewed. Physical Examination: Vital Signs: Temperature 97.6, heart rate 86, blood pressure 98/64, respirations 16, O2 of 100% on 2 L via nasal cannula. General: Awake, alert, oriented x3. Elderly male, obese, ill appearing. CV: S1, S2. Regular rate and rhythm. Peripheral pulses present. Respiratory: Diminished breath sounds. No wheezing or stridor. Gastrointestinal: Abdomen is soft, nontender, nondistended. Positive bowel sounds. Extremities: No clubbing, cyanosis, or edema. Neuro: Nonfocal. Speech is normal. Strength is symmetric bilateral upper and lower extremities. Skin: No rashes. Normal skin turgor. Psych: Mood is somewhat depressed. Affect is flat. Insight and judgment are poor. Laboratory Data: Sodium 144, potassium 4, chloride 112, CO2 of 24, BUN 32, creatinine 1.36, glucose 102, calcium 8.1. Phosphorus 5.2, magnesium 1.7. AST 192, ALT 88, albumin 3.5. WBC 14.7, H and H 1 3.7 and 40, platelets 295, neutrophils 74%. ABG; pH 7.25, pCO2 of 48.5, pO2 of 78.7, bicarb 20.6. A cetaminophen level 31.5, now less than 2. Repeat chest x-ray pending. Assessment: A 63-year-old male with: 1.Acute Tylenol toxicity. Patient did not require acetylcysteine. Tylenol level now less than 2. 2.Intentional drug overdose. We will continue suicide precautions. Contact [facility] once made medicall y stable. Patient will benefit from inpatient psychiatric treatment if [facility] agrees for placement. 3.Acute kidney injury. Creatinine is improving. We will continue with IV fluid and monitor. 4.Elevated liver enzymes secondary to Tylenol toxicity trending up. We will continue to monitor. 5.Insulin-dependent diabetes with hyperglycemia. We will continue sliding scale insulin and monitor Accu-Cheks. 6.Hypotension, requiring Levophed, improving. Patient now off pressors, likely secondary to drug ov erdose, respiratory depression. We will continue to monitor closely. Keep map of 65 or above. 7.Mixed hyperlipidemia. We will avoid statins due to hepatic toxicity. 8.Generalized anxiety disorder. 9.Major depressive disorder, recurrent, with current episode. 10.Gastroesophageal reflux disease without esophagitis. We will continue PPI. 11.Obstructive sleep apnea. Continue CPAP at night. 12.Coronary artery disease, status post stent. [place] artery and [place] heart without angina. 13.Obesity, BMI 36. 14.Acute respiratory distress with hypercapnia, off BiPAP. Plan: Continue to monitor in ICU setting with suicide precautions, [facility] once medically stable. SA/MODL Voice ID: [id number] Report ID: [id number]
[2019-07-08 19:34] LABS: ALT/SGPT 91 U/L (12-78)
[2019-07-08 19:37] LABS: AST/SGOT 335 U/L (15-37)
[2019-07-08 23:53] LABS: Protime INR 1.12
[2019-07-09] MEDS ORDERED: ACETYLCYST 6,000 MG/30 ML VIAL PO SCH (01:00)
[2019-07-09] MEDS: ACETYLCYST 6,000 MG/30 ML VIAL PO SCH ×7 (01:45→20:35)
[2019-07-09 05:02] LABS: Absolute Lymphocytes (CBC) 2.1 K/uL (0.7-4.9); Basophils % 0.6 % (0-1.3); Hematocrit 40.1 % (39.6-49.0); Lymphocytes % 20.2 % (15.3-44.8); MPV 7.4 fL (7.6-11.3); RBC Red Blood Cell Count 4.68 M/uL (4.33-5.43)
[2019-07-09 05:27] LABS: ALT/SGPT 85 U/L (12-78); AST/SGOT 246 U/L (15-37); Alkaline Phosphatase 85 U/L (45-117); BUN Blood Urea Nitrogen 19 mg/dL (7-18); Bicarbonate 24 mmol/L (21-32); Bilirubin Total 0.6 mg/dL (0.2-1.0); Glucose Level 123 mg/dL (74-106); Potassium 4.2 mmol/L (3.5-5.1); Protein, Total 6.9 g/dL (6.4-8.2); Sodium Level 143 mmol/L (136-145)
[2019-07-09] MEDS: NA CHLORIDE 0.9% 1,000 ML IV SCH ×3 (05:27→18:15)
[2019-07-09] MEDS: INSULIN -REGULAR HUMAN 50 UNIT/0.5 ML ML SQ SCH ×4 (07:30→20:25)
[2019-07-09] MEDS: CLOPIDOGREL 75 MG TABLET PO SCH (09:15)
[2019-07-09] MEDS: PANTOPRAZOLE 40MG TABLET PO SCH (09:15)
[2019-07-09] MEDS: ASPIRIN EC 81 MG TAB PO SCH (09:15)
[2019-07-09] MEDS: ARIPiprazole 5 MG TAB PO SCH (09:16)
[2019-07-09] MEDS: FOLIC ACID 1 MG in NA CHLORIDE 0.9% 50 ML IV SCH (09:17)
[2019-07-09] MEDS: THIAMINE 200 MG/2 ML INJ IVP SCH (09:17)
--- NOTE | 2019-07-09 11:01 | RAD REPORT ---
EXAM DESCRIPTION: CHEST, ONE VIEW XR CLINICAL HISTORY: PICC line placement. COMPARISON: None. TECHNIQUE: AP Chest. FINDINGS: Heart is normal in size. Vascular crowding due to low lung volumes. Minimal bilateral lowe r lobe atelectasis. No consolidation or edema. Pleural spaces are clear. Right subclavian PICC line i s visualized to the mid aspect of the superior vena cava. Sternal wires noted. Unremarkable soft tissues. Unremarkable bones. IMPRESSION: 1. Low lung volume pulmonary changes. No acute disease. 2. Right subclavian PICC line is in the mid aspect of the superior vena cava. Electronically signed by: Maureen Nava DO 07/08/2019 3:19 AM CDT Due to temporary technical issues with the PACS/Fluency reporting system, reports are being signed by the in house radiologist as a courtesy to ensure prompt reporting. The interpreting radiologist is f ully responsible for the content of the report.
--- NOTE | 2019-07-09 18:09 | P.PN ---
Subjective Date of Service: 07/09/19 Chief Complaint: drug overdose Subjective: Improving Review of Systems 10-point ROS is otherwise unremarkable Physical Examination - Vital Signs Temperature: 97.3 F Blood Pressure: 125/68 Pulse: 93 Respirations: 26 Pulse Ox (%): 99 - Physical Exam General: Alert, In no apparent distress, Other HEENT: Atraumatic, PERRLA, EOMI Neck: Supple, JVD not distended Respiratory: Clear to auscultation bilaterally, Normal air movement Cardiovascular: Regular rate/rhythm, Normal S1 S2 Gastrointestinal: Normal bowel sounds, No tenderness Musculoskeletal: No tenderness Integumentary: No rashes Neurological: Normal speech, Normal tone, Normal affect Lymphatics: No axilla or inguinal lymphadenopathy Assessment And Plan - Plan A 63-year-old male with; 1. Acute Tylenol toxicity. Poison Control contacted. The LFTs elevated, therefore acetylcysteine started. We will continue to monitor and we will continue with IV fluids. 2. Intentional drug overdose. We will place on suicide precautions, in ICU with 1 on 1 setting. 3. Acute kidney injury. Resolved. Creatinine is 0 right. We will continue with IV fluids and monitor. 4. Elevated liver enzymes secondary to Tylenol toxicity. We will continue to monitor. 5. Insulin-dependent diabetes with hyperglycemia. We will continue on sliding scale insulin and monitor Accu-Cheks. 6. Essential hypotension secondary to respiratory depression and drug overdose. We will continue with IV fluids and monitor closely. Keep the MAP of 65 or above. We will start on pressors if MAP falls below 65. 7. Mixed hyperlipidemia. Avoid statins for now due to hepatic toxicity. 8. Generalized anxiety disorder. 9. Major depressive disorder, recurrent, with current episode. 10. Gastroesophageal reflux disease without esophagitis. Continue PPI. 11. Obstructive sleep apnea. Place on CPAP at night. 12. Coronary artery disease status post stent, [place] artery and [place] heart without angina. 13. Morbid obesity. Plan: continue to monitor and ICU. He will require [facility] evaluation
[2019-07-10] MEDS: ACETYLCYST 6,000 MG/30 ML VIAL PO SCH ×6 (00:14→21:01)
[2019-07-10 05:13] LABS: Absolute Lymphocytes (CBC) 2.2 K/uL (0.7-4.9); Basophils % 0.5 % (0-1.3); Hematocrit 34.5 % (39.6-49.0); Lymphocytes % 24.3 % (15.3-44.8); MPV 7.4 fL (7.6-11.3); RBC Red Blood Cell Count 4.04 M/uL (4.33-5.43)
[2019-07-10 05:16] LABS: Protime INR 1.24
[2019-07-10 05:34] LABS: ALT/SGPT 51 U/L (12-78); AST/SGOT 102 U/L (15-37); Albumin 2.6 g/dL (3.4-5.0); Alkaline Phosphatase 70 U/L (45-117); BUN Blood Urea Nitrogen 14 mg/dL (7-18); Bicarbonate 22 mmol/L (21-32); Bilirubin Total 0.4 mg/dL (0.2-1.0); Glucose Level 127 mg/dL (74-106); Potassium 3.5 mmol/L (3.5-5.1); Protein, Total 5.9 g/dL (6.4-8.2); Sodium Level 143 mmol/L (136-145)
[2019-07-10] MEDS: NA CHLORIDE 0.9% 1,000 ML IV SCH ×2 (05:54→20:50)
[2019-07-10] MEDS: PANTOPRAZOLE 40MG TABLET PO SCH (07:28)
[2019-07-10] MEDS: INSULIN -REGULAR HUMAN 50 UNIT/0.5 ML ML SQ SCH ×4 (07:30→20:54)
[2019-07-10] MEDS: ONDANSETRON 4 MG/2 ML VIAL IV PRN ×2 (08:42→20:50)
[2019-07-10] MEDS: THIAMINE 200 MG/2 ML INJ IVP SCH (08:42)
[2019-07-10] MEDS: ASPIRIN EC 81 MG TAB PO SCH (08:51)
[2019-07-10] MEDS: CLOPIDOGREL 75 MG TABLET PO SCH (08:51)
[2019-07-10] MEDS: ARIPiprazole 5 MG TAB PO SCH (08:51)
[2019-07-10] MEDS: FOLIC ACID 1 MG in NA CHLORIDE 0.9% 50 ML IV SCH (09:06)
--- NOTE | 2019-07-10 14:40 | P.PN ---
Subjective Date of Service: 07/10/19 Chief Complaint: drug overdose Subjective: Improving Patient seen and examined at bedside. No family at bedside. Chart reviewed and case discussed with nursing staff. Patient much more awake today, sitting up in chair eating without concerns. Discussed with patient regarding what happened, patient states that he did take more than his prescribed oxycodone but he denies any alcohol use for about 20 years now. He remains hemodynamically stable. No acute events noted overnight Review of Systems 10-point ROS is otherwise unremarkable Physical Examination - Vital Signs Temperature: 97.3 F Blood Pressure: 125/68 Pulse: 93 Respirations: 26 Pulse Ox (%): 99 - Physical Exam General: Alert, In no apparent distress HEENT: Atraumatic, PERRLA, EOMI Neck: Supple, JVD not distended Respiratory: Clear to auscultation bilaterally, Normal air movement Cardiovascular: Regular rate/rhythm, Normal S1 S2 Gastrointestinal: Normal bowel sounds, No tenderness Musculoskeletal: No tenderness Integumentary: No rashes Neurological: Normal speech, Normal tone, Normal affect Lymphatics: No axilla or inguinal lymphadenopathy Assessment And Plan - Plan A 63-year-old male with; 1. Acute Tylenol toxicity. Poison Control contacted. The LFTs elevated, therefore acetylcysteine started. We will continue to monitor and we will continue with IV fluids. 2. Intentional drug overdose. We will place on suicide precautions, in ICU with 1 on 1 setting. 3. Acute kidney injury. Resolved. Creatinine is 0 right. We will continue with IV fluids and monitor. 4. Elevated liver enzymes secondary to Tylenol toxicity. We will continue to monitor. 5. Insulin-dependent diabetes with hyperglycemia. We will continue on sliding scale insulin and monitor Accu-Cheks. 6. Essential hypotension secondary to respiratory depression and drug overdose. We will continue with IV fluids and monitor closely. Keep the MAP of 65 or above. We will start on pressors if MAP falls below 65. 7. Mixed hyperlipidemia. Avoid statins for now due to hepatic toxicity. 8. Generalized anxiety disorder. 9. Major depressive disorder, recurrent, with current episode. 10. Gastroesophageal reflux disease without esophagitis. Continue PPI. 11. Obstructive sleep apnea. Place on CPAP at night. 12. Coronary artery disease status post stent, [place] artery and [place] heart without angina. 13. Morbid obesity. Plan: continue to monitor and ICU. Discussed with patient regarding further inpatient psychiatric evaluation due to suicide attempt. Patient states he did not intentionally do this, but still seems hazy. As per , patient took 15+ oxycodone pills after he locked himself in her room. The door was broken down by his son and patient was found conscious. He did state he took more than prescribed oxycodone pills but states that he has not had any alcohol in 20 years. His acetaminophen levels were elevated, along with his LFTs. He was given acetylcysteine. Patient did refuse a few doses, but did take a few doses. His LFTs are now improving. He is medically stable for transfer to inpatient psychiatric facility for further evaluation of suicidal thoughts/ attempt.
--- NOTE | 2019-07-10 15:54 | EKG ---
Test Date: 2019-07-10 Test Time: 15:08:57 Management Manager: MARILIA MEASUREMENT RESULTS: Intervals: Rate: 73 NM: 154 QRSD: 86 QT: 398 QTc: 438 [place]: P: 25 NM: 154 QRS: -42 T: 65 INTERPRETIVE STATEMENTS: Normal sinus rhythm Left axis deviation Abnormal ECG Compared to ECG 07/07/2019 15:30:50 ST (T wave) deviation no longer present Possible ischemia no longer present Prolonged QT interval no longer present Electronically Signed On 07-10-19 15:53:57 CDT by Shashi Jin
[2019-07-11] MEDS: ACETYLCYST 6,000 MG/30 ML VIAL PO SCH ×4 (01:01→13:16)
[2019-07-11] MEDS: ONDANSETRON 4 MG/2 ML VIAL IV PRN ×2 (01:01→05:22)
[2019-07-11] MEDS: NA CHLORIDE 0.9% 1,000 ML IV SCH ×2 (04:37→10:20)
[2019-07-11] MEDS: INSULIN -REGULAR HUMAN 50 UNIT/0.5 ML ML SQ SCH ×2 (07:30→11:30)
[2019-07-11 08:51] VITALS: O2SAT 99
[2019-07-11] MEDS: ARIPiprazole 5 MG TAB PO SCH (09:03)
[2019-07-11] MEDS: ASPIRIN EC 81 MG TAB PO SCH (09:03)
[2019-07-11] MEDS: FOLIC ACID 1 MG in NA CHLORIDE 0.9% 50 ML IV SCH (09:03)
[2019-07-11] MEDS: CLOPIDOGREL 75 MG TABLET PO SCH (09:03)
[2019-07-11] MEDS: PANTOPRAZOLE 40MG TABLET PO SCH (09:03)
[2019-07-11] MEDS: THIAMINE 200 MG/2 ML INJ IVP SCH (09:05)
[2019-07-11 12:22] LABS: Absolute Lymphocytes (CBC) 1.5 K/uL (0.7-4.9); Basophils % 0.6 % (0-1.3); Hematocrit 38.1 % (39.6-49.0); Lymphocytes % 16.4 % (15.3-44.8); MPV 7.8 fL (7.6-11.3); RBC Red Blood Cell Count 4.55 M/uL (4.33-5.43)
[2019-07-11 12:40] LABS: ALT/SGPT 49 U/L (12-78); AST/SGOT 56 U/L (15-37); Albumin 2.9 g/dL (3.4-5.0); Alkaline Phosphatase 85 U/L (45-117); BUN Blood Urea Nitrogen 10 mg/dL (7-18); Bicarbonate 21 mmol/L (21-32); Bilirubin Total 0.4 mg/dL (0.2-1.0); Glucose Level 178 mg/dL (74-106); Potassium 3.9 mmol/L (3.5-5.1); Protein, Total 6.9 g/dL (6.4-8.2); Sodium Level 142 mmol/L (136-145)
--- NOTE | 2019-07-11 14:44 | P.DS ---
Admission Date: 07/07/19 Discharge Date: 07/11/19 Disposition: TRANSFR TO OTHER-PSY/CD/REHAB Discharge Condition: GOOD Reason for Admission: drug overdose Consultations: Pulmonology Brief History of Present Illness: Patient is a 63-year-old male with past medical history of hypertension, restrictive lung disease, diabetes, hyperlipidemia, sleep apnea, generalized anxiety disorder, who has been in and out of the hospital several times this year, is on chronic narcotics, who according to wound care physician has high threshold for overdose. Patient apparently had left AMA on the previous visit on 06/27/2019. Patient apparently ingested 20 pills of his oxycodone and acetaminophen tablets at a dose of 10 mg and 325 mg. patient ingested these medications at 1 p.m., was brought in by the family member. Patient is somnolent, somewhat confused. Patient's symptoms are constant, moderate, progressively worsening. Workup revealed a creatinine of 1.37, AST 87, ALT 83. His WBC count was 13.3. INR was 1.06. Tox screen showed acetaminophen level of 128, 4 hour level from 1 p.m. ingestion time showed Tylenol level of 82, which is below the treatment line for acetylcysteine. Poison Control was contacted by myself, who did not recommend any acetylcysteine, recommended rechecking Tylenol level as well as LFTs and INR in 4 hours. Patient was then referred for admission. When seen in the ER, he was drowsy, able to be aroused , not in any acute distress. Hospital Course: Patient was admitted to ICU for 1 on suicide watch. Discussed with patient regarding further inpatient psychiatric evaluation due to suicide attempt. Patient states he did not intentionally do this, but still seems hazy. As per , patient took 15+ oxycodone pills after he locked himself in her room. The door was broken down by his son and patient was found conscious. He did state he took more than prescribed oxycodone pills but states that he has not had any alcohol in 20 years. His acetaminophen levels were elevated, along with his LFTs. He was given acetylcysteine. Patient did refuse a few doses, but did take a few doses. His LFTs are now improving. Qtc normalized, hemodynamically stable. He is medically stable for transfer to inpatient psychiatric facility for further evaluation of suicidal thoughts/attempt once accepted. Vital Signs/Physical Exam: Temp Pulse Resp BP Pulse Ox 97.6 F 78 17 132/77 100 07/11/19 07:00 07/11/19 10:00 07/11/19 10:00 07/11/19 10:00 07/11/19 10:00 General: Alert, In no apparent distress, Oriented x3 HEENT: Atraumatic, PERRLA, EOMI Neck: Supple, JVD not distended Respiratory: Clear to auscultation bilaterally, Normal air movement Cardiovascular: Regular rate/rhythm, Normal S1 S2 Gastrointestinal: Normal bowel sounds, No tenderness Musculoskeletal: No tenderness Integumentary: No rashes Neurological: Normal speech, Normal tone, Normal affect Lymphatics: No axilla or inguinal lymphadenopathy Laboratory Data at Discharge: WBC 9.0 K/uL (4.3-10.9) 07/11/19 11:45 Hgb 13.3 g/dL (13.6-17.9) L 07/11/19 11:45 Hct 38.1 % (39.6-49.0) L 07/11/19 11:45 Plt Count 230 K/uL (152-406) 07/11/19 11:45 PT 14.5 SECONDS (9.5-12.5) H 07/10/19 04:41 INR 1.24 07/10/19 04:41 APTT 32.0 SECONDS (24.3-36.9) 07/08/19 23:30 Sodium 142 mmol/L (136-145) 07/11/19 11:45 Potassium 3.9 mmol/L (3.5-5.1) 07/11/19 11:45 BUN 10 mg/dL (7-18) 07/11/19 11:45 Creatinine 0.64 mg/dL (0.55-1.3) 07/11/19 11:45 Glucose 178 mg/dL (74-106) H 07/11/19 11:45 Phosphorus 5.2 mg/dL (2.5-4.9) H 07/08/19 05:06 Magnesium 1.7 mg/dL (1.8-2.4) L 07/08/19 05:06 Total Bilirubin 0.4 mg/dL (0.2-1.0) 07/11/19 11:45 AST 56 U/L (15-37) H 07/11/19 11:45 ALT 49 U/L (12-78) 07/11/19 11:45 Alkaline Phosphatase 85 U/L (45-117) 07/11/19 11:45 Home Medications: Albuterol Inhaler [Ventolin Inhaler*] 2 puff IH QID PRN 07/08/19 Albuterol Sulfate [Proair Respiclick] 2 puff IH QID PRN 07/08/19 Aripiprazole [Abilify] 10 mg PO DAILY 07/08/19 Aspirin [Aspir-Low] 81 mg PO DAILY 07/08/19 Atorvastatin Calcium [Lipitor*] 20 mg PO BEDTIME 07/08/19 Bumetanide [Bumex] 2 mg PO BID 07/08/19 Clopidogrel Bisulfate [Plavix*] 75 mg PO DAILY 07/08/19 Empagliflozin [Jardiance] 25 mg PO DAILY 07/08/19 Fluticasone/Vilanterol [Breo Ellipta 100-25 Mcg INH] 1 puff IH DAILY 07/08/19 Furosemide [Lasix] 20 mg PO DAILY 07/08/19 Gabapentin 600 mg PO TID 07/08/19 Insulin Glulisine [Apidra] 15 unit SQ TID 07/08/19 Lisinopril [Prinivil] 5 mg PO DAILY 07/08/19 Metformin HCl 1,000 mg PO BID 07/08/19 Metoprolol Tartrate [Lopressor] 50 mg PO DAILY 07/08/19 Omeprazole [Prilosec] 40 mg PO DAILY 07/08/19 Spironolactone 25 mg PO DAILY 07/08/19 Trazodone [Desyrel*] 30 mg PO BEDTIME 07/08/19 clonazePAM [Clonazepam] 1 mg PO QID PRN 07/08/19 Diet: ADA Activity: Ad laureen Time spent managing pt's care (in minutes): 55
[2019-07-11 16:54] VITALS: BP 152/85; TEMP 98.4
== END 2019-07-11 16:05 | DRG 917 ==
LOC: ER 15:01 → ERHOLD 18:06 → 3RD-ICU 22:35
PROVIDERS: ADMIT Family Medicine; ATTEND Family Medicine
PROC: 05H533Z Insertion of Infusion Device into Right Subclavian Vein, Percutaneous Approach (ICD-10-PCS; 2019-07-08)
PROC: 5A09457 Assistance with Respiratory Ventilation, 24-96 Consecutive Hours, Continuous Positive Airway Pressure (ICD-10-PCS; principal; 2019-07-09)
DX: T39.1X2A Poisoning by 4-Aminophenol derivatives, intentional self-harm, initial encounter (principal); G92 Toxic encephalopathy; J96.22 Acute and chronic respiratory failure with hypercapnia; T78.2XXA Anaphylactic shock, unspecified, initial encounter; N17.9 Acute kidney failure, unspecified; F33.9 Major depressive disorder, recurrent, unspecified; Y92.009 Unspecified place in unspecified non-institutional (private) residence as the place of occurrence of the external cause; T40.2X2A Poisoning by other opioids, intentional self-harm, initial encounter; I10 Essential (primary) hypertension; G47.30 Sleep apnea, unspecified; F41.1 Generalized anxiety disorder; E11.65 Type 2 diabetes mellitus with hyperglycemia; G47.33 Obstructive sleep apnea (adult) (pediatric); I25.10 Atherosclerotic heart disease of native coronary artery without angina pectoris; E66.9 Obesity, unspecified; Z68.36 Body mass index [BMI] 36.0-36.9, adult; R74.8 Abnormal levels of other serum enzymes; E78.2 Mixed hyperlipidemia; I95.9 Hypotension, unspecified; J98.4 Other disorders of lung; Z99.81 Dependence on supplemental oxygen; Z95.5 Presence of coronary angioplasty implant and graft; Z79.82 Long term (current) use of aspirin; Z95.1 Presence of aortocoronary bypass graft
CPT/HCPCS: 36415; 71045; 80048; 80053; 80076; 80307; 80320; 80329; 81003; 82248; 82805; 82962; 83735; 84100; 84450; 84460; 85025; 85610; 85730; 87040; 93005; 94660; 96374; 97112; 97116; 97161; 99291; 99292; J2310; J2405; J3411; J3475; J7030

== ENCOUNTER 2019-11-27 15:34 | Inpatient (IN) | payer MEDICARE, SELFPAY ==
--- OUTSIDE RECORDS SUMMARY | 2019-11-27 15:44 | XMS REPORT ---
:1955 [facility] Address [address] [place] [address] Care Team Providers Name Role Phone MARK MACKENZIE Unavailable Unavailable SANDY RDZ Unavailable Unavailable MARK BANERJEE Unavailable Unavailable LORIE BUSTOS Unavailable Unavailable Problems This patient has no known problems. Allergies, Adverse Reactions, Alerts This patient has no known allergies or adverse reactions. Medications This patient has no known medications. Results Test Description Test Time Test Comments Text Results Atomic Results Result Comments WOUND CULTURE + GRAM STAIN 2019-10-15 13:39:00 Test Item Value Reference Range Comments CULTURE (BEAKER) (test tuiy=8054) STAPHYLOCOCCUS AUREUS <1+ Staphylococcus aureus Clindamycin (test code=10) Erythromycin (test code=4) Linezolid (test code=40) Nitrofurantoin (test code=23) Oxacillin (test code=14) Rifampin (test code=43) Tetracycline (test code=2) Trimethoprim + Sulfamethoxazole (test code=47) Vancomycin (test code=13) GRAM STAIN RESULT (BEAKER) (test No WBCs ecxz=3126) GRAM STAIN RESULT (BEAKER) (test No organisms seen bgqy=866813) BLOOD [id number] 20:01:00 Test Item Value Reference Range Comments CULTURE (BEAKER) (test xept=6204) No growth in 5 days BLOOD [id number] 20:01:00 Test Item Value Reference Range Comments CULTURE (BEAKER) (test csuq=4651) No growth in 5 days POCT-GLUCOSE [id number] 12:13:00 Test Item Value Reference Range Comments POC-GLUCOSE METER (BEAKER) 143 mg/dL 70-110 TESTED AT [facility] [address] (test sakx=5869) [facility] [address] SPUTUM CULTURE + GRAM [id number] 10:30:00 Test Item Value Reference Range Comments CULTURE (BEAKER) (test See comment cvrz=4232) GRAM STAIN RESULT (BEAKER) 2+ WBCs (test oucl=2490) GRAM STAIN RESULT (BEAKER) 0-5 epithelial cells (test spal=15963) GRAM STAIN RESULT (BEAKER) 1+ gram negative rods (test tocs=559016) GRAM STAIN RESULT (BEAKER) 1+ gram positive cocci in (test zxer=944657) clusters 3+ Normal respiratory davie presentPOCT-GLUCOSE [id number] 08:04:00 Test Item Value Reference Range Comments POC-GLUCOSE METER (BEAKER) 162 mg/dL 70-110 TESTED AT [address] (test bfgo=6494) [facility] [address] POCT-GLUCOSE [id number] 21:15:00 Test Item Value Reference Range Comments POC-GLUCOSE METER (BEAKER) 274 mg/dL 70-110 TESTED AT [address] (test xssb=0232) [facility] [address] POCT-GLUCOSE [id number] 17:23:00 Test Item Value Reference Range Comments POC-GLUCOSE METER (BEAKER) 169 mg/dL 70-110 TESTED AT [address] (test tiwm=0334) [facility] [address] POCT-GLUCOSE [id number] 12:24:00 Test Item Value Reference Range Comments POC-GLUCOSE METER (BEAKER) 182 mg/dL 70-110 TESTED AT [address] (test kkbc=9698) [facility] [address] RAD, CHEST, 1 VIEW, NON [id number] 08:36:00Reason for exam:->SHORTNESS OF BREATHShould this be performed at the bedside?->YesFINAL REPORT CLINICAL HISTORY: SHORTNESS OF BREATH TECHNIQUE: 1 view of the chest. COMPARISON: 04/23/2019 IMPRESSION: There is new/increased left lung base consolidation. There isright basilar atelectasis. Subpulmonic pleural effusions cannot be excluded. The cardiomediastinal silhouette is magnified by technique with sternotomy wires. Signed: Yimi Harkins MDReport Verified Date/Time: 08:36:14 Reading Location: [facility] Reading Room POCT- GLUCOSE [id number] 07:40:00 Test Item Value Reference Range Comments POC-GLUCOSE METER (BEAKER) 119 mg/dL 70-110 TESTED AT [facility] [address] (test gdxs=9736) [facility] [address] [id number] 03:28:00 Test Item Value Reference Range Comments MAGNESIUM (BEAKER) (test ukjb=356) 2.0 mg/dL 1.6-2.6 BASIC METABOLIC [id number] 03:28:00 Test Item Value Reference Range Comments SODIUM (BEAKER) (test 138 meq/L 136-145 ylof=984) POTASSIUM (BEAKER) (test 3.9 meq/L 3.5-5.1 qocr=878) CHLORIDE (BEAKER) (test 104 meq/L 98-107 vyjl=801) CO2 (BEAKER) (test 25 meq/L 22-29 amex=946) BLOOD UREA NITROGEN 9 mg/dL 7-21 (BEAKER) (test xvps=367) CREATININE (BEAKER) (test 0.69 mg/dL 0.57-1.25 mjfd=993) GLUCOSE RANDOM (BEAKER) 168 mg/dL 70-105 (test spzv=125) CALCIUM (BEAKER) (test 8.3 mg/dL 8.4-10.2 txab=528) EGFR (BEAKER) (test 115 mL/min/1.73 sq m ESTIMATED GFR IS NOT kysv=1439) ACCURATE CREATININE CLEARANCE IN PREDICTING GLOMERULAR FILTRATION RATE. ESTIMATED GFR IS NOT APPLICABLE FOR DIALYSIS PATIENTS. CBC W/PLT COUNT & AUTO [id number] 03:00:00 Test Item Value Reference Range Comments WHITE BLOOD CELL COUNT (BEAKER) (test advd=217) 6.6 K/ L 3.5-10.5 RED BLOOD CELL COUNT (BEAKER) (test guuh=294) 3.92 M/ L 4.63-6.08 HEMOGLOBIN (BEAKER) (test clhz=713) 11.7 GM/DL 13.7-17.5 HEMATOCRIT (BEAKER) (test jmyy=949) 36.2 % 40.1-51.0 MEAN CORPUSCULAR VOLUME (BEAKER) (test ctth=995) 92.3 fL 79.0-92.2 MEAN CORPUSCULAR HEMOGLOBIN (BEAKER) (test 29.8 pg 25.7-32.2 cclu=850) MEAN CORPUSCULAR HEMOGLOBIN CONC (BEAKER) (test 32.3 GM/DL 32.3-36.5 reem=331) RED CELL DISTRIBUTION WIDTH (BEAKER) (test 13.0 % 11.6-14.4 cljh=405) PLATELET COUNT (BEAKER) (test hicb=538) 246 K/CU MM 150-450 MEAN PLATELET VOLUME (BEAKER) (test fcbu=831) 8.5 fL 9.4-12.4 NUCLEATED RED BLOOD CELLS (BEAKER) (test 0 /100 WBC 0-0 qzwy=864) NEUTROPHILS RELATIVE PERCENT (BEAKER) (test 60 % irux=692) LYMPHOCYTES RELATIVE PERCENT (BEAKER) (test 28 % wpfr=084) MONOCYTES RELATIVE PERCENT (BEAKER) (test 7 % arda=731) EOSINOPHILS RELATIVE PERCENT (BEAKER) (test 4 % fntv=049) BASOPHILS RELATIVE PERCENT (BEAKER) (test 0 % seyr=527) NEUTROPHILS ABSOLUTE COUNT (BEAKER) (test 4.01 K/ L 1.78-5.38 izss=215) LYMPHOCYTES ABSOLUTE COUNT (BEAKER) (test 1.86 K/ L 1.32-3.57 ebda=339) MONOCYTES ABSOLUTE COUNT (BEAKER) (test 0.47 K/ L 0.30-0.82 lzvl=634) EOSINOPHILS ABSOLUTE COUNT (BEAKER) (test 0.26 K/ L 0.04-0.54 nfsi=684) BASOPHILS ABSOLUTE COUNT (BEAKER) (test 0.02 K/ L 0.01-0.08 uosw=128) IMMATURE GRANULOCYTES-RELATIVE PERCENT (BEAKER) 0 % 0-1 (test uufp=4248) POCT-GLUCOSE [id number] 21:36:00 Test Item Value Reference Range Comments POC-GLUCOSE METER (BEAKER) 273 mg/dL 70-110 TESTED AT [address] (test ozet=9593) [facility] [address] POCT-GLUCOSE [id number] 17:43:00 Test Item Value Reference Range Comments POC-GLUCOSE METER (BEAKER) 239 mg/dL 70-110 TESTED AT [address] (test quho=7307) [place] [address] [id number] 14:55:00 Test Item Value Reference Range Comments POTASSIUM (BEAKER) (test jlau=691) 3.5 meq/L 3.5-5.1 Check Serum Potassium level 2 hours after oral potassium replacement completed or 30 min after intravenous potassium replacement.[id number] 14:55:00 Test Item Value Reference Range Comments MAGNESIUM (BEAKER) (test erdv=447) 2.0 mg/dL 1.6-2.6 Check Serum Potassium level 2 hours after oral potassium replacement completed or 30 min after intravenous potassium replacement.HEMOGLOBIN [id number] 12:05 :00 Test Item Value Reference Range Comments HEMOGLOBIN A1C (BEAKER) (test edod=208) 6.8 % 4.3-6.1 POCT-GLUCOSE [id number] 11:38:00 Test Item Value Reference Range Comments POC-GLUCOSE METER (BEAKER) 187 mg/dL 70-110 TESTED AT [address] (test pihm=2969) [place] [address] C. DIFFICILE GDH [id number] 10:53:00 Test Item Value Reference Range Comments CDT TOXIN (test Negative Negative uwvl=[id number]) CDT GDH ANTIGEN (test Negative Negative No indication of Clostridium plfx=[id number]) difficile infection and no colonization. Discontinue enteric isolation and therapy. Testing performed by [employer] Rapid Cassette Assay. For GDH, published sensitivity of the assay is 98.7% compared to cytotoxicity testing. For Toxin AB, published sensitivity is 87.8% and specificity 99.4% compared to cytotoxicity testing.Verification of kit performance was done by the [facility] Microbiology Lab prior to clinical use.POCT-GLUCOSE [id number] 07:48:00 Test Item Value Reference Range Comments POC-GLUCOSE METER (BEAKER) 191 mg/dL 70-110 TESTED AT [address] (test hiyu=0348) [place] [address] TSH/FREE T4 IF [id number] 07:01:00 Test Item Value Reference Range Comments THYROID STIMULATING HORMONE (BEAKER) (test 0.79 uIU/mL 0.35-4.94 njvi=357) [id number] 06:52:00 Test Item Value Reference Range Comments MAGNESIUM (BEAKER) (test gbgo=077) 2.2 mg/dL 1.6-2.6 BASIC METABOLIC [id number] 06:52:00 Test Item Value Reference Range Comments SODIUM (BEAKER) (test 138 meq/L 136-145 phab=255) POTASSIUM (BEAKER) (test 4.0 meq/L 3.5-5.1 fjek=295) CHLORIDE (BEAKER) (test 103 meq/L 98-107 vmgw=101) CO2 (BEAKER) (test 27 meq/L 22-29 vfke=817) BLOOD UREA NITROGEN 8 mg/dL 7-21 (BEAKER) (test fvpw=032) CREATININE (BEAKER) (test 0.71 mg/dL 0.57-1.25 ikqy=901) GLUCOSE RANDOM (BEAKER) 207 mg/dL 70-105 (test pqcx=052) CALCIUM (BEAKER) (test 8.8 mg/dL 8.4-10.2 kkti=962) EGFR (BEAKER) (test 111 mL/min/1.73 sq m ESTIMATED GFR IS NOT proo=2708) ACCURATE CREATININE CLEARANCE IN PREDICTING GLOMERULAR FILTRATION RATE. ESTIMATED GFR IS NOT APPLICABLE FOR DIALYSIS PATIENTS. CBC W/PLT COUNT & AUTO [id number] 05:55:00 Test Item Value Reference Range Comments WHITE BLOOD CELL COUNT (BEAKER) (test txjj=220) 6.1 K/ L 3.5-10.5 RED BLOOD CELL COUNT (BEAKER) (test ghgm=937) 4.02 M/ L 4.63-6.08 HEMOGLOBIN (BEAKER) (test blzh=552) 11.9 GM/DL 13.7-17.5 HEMATOCRIT (BEAKER) (test rmrf=771) 36.9 % 40.1-51.0 MEAN CORPUSCULAR VOLUME (BEAKER) (test nyfr=765) 91.8 fL 79.0-92.2 MEAN CORPUSCULAR HEMOGLOBIN (BEAKER) (test 29.6 pg 25.7-32.2 frht=796) MEAN CORPUSCULAR HEMOGLOBIN CONC (BEAKER) (test 32.2 GM/DL 32.3-36.5 yfpy=522) RED CELL DISTRIBUTION WIDTH (BEAKER) (test 13.0 % 11.6-14.4 mrsa=455) PLATELET COUNT (BEAKER) (test dodw=338) 298 K/CU MM 150-450 MEAN PLATELET VOLUME (BEAKER) (test ecyg=914) 8.5 fL 9.4-12.4 NUCLEATED RED BLOOD CELLS (BEAKER) (test 0 /100 WBC 0-0 xlqo=410) NEUTROPHILS RELATIVE PERCENT (BEAKER) (test 69 % pajs=232) LYMPHOCYTES RELATIVE PERCENT (BEAKER) (test 22 % xsbh=527) MONOCYTES RELATIVE PERCENT (BEAKER) (test 7 % albt=720) EOSINOPHILS RELATIVE PERCENT (BEAKER) (test 1 % cvrn=870) BASOPHILS RELATIVE PERCENT (BEAKER) (test 0 % fywd=607) NEUTROPHILS ABSOLUTE COUNT (BEAKER) (test 4.23 K/ L 1.78-5.38 gvzz=659) LYMPHOCYTES ABSOLUTE COUNT (BEAKER) (test 1.37 K/ L 1.32-3.57 ilqm=427) MONOCYTES ABSOLUTE COUNT (BEAKER) (test 0.42 K/ L 0.30-0.82 jgvv=910) EOSINOPHILS ABSOLUTE COUNT (BEAKER) (test 0.07 K/ L 0.04-0.54 timv=829) BASOPHILS ABSOLUTE COUNT (BEAKER) (test 0.02 K/ L 0.01-0.08 lhxn=705) IMMATURE GRANULOCYTES-RELATIVE PERCENT (BEAKER) 0 % 0-1 (test hovt=1166) RAD, CHEST, 1 VIEW, NON [id number] 05:45:00Reason for exam:->SHORTNESS OF BREATHShould this be performed at the bedside?->YesFINAL REPORT RAD, CHEST, 1 VIEW, NON DEPT INDICATION: SHORTNESS OF BREATH COMPARISON: Prior day's exam FINDINGS: Portable frontal view of the chest. IMPRESSION: Lungs and pleura: Unchanged airspace and pleural opacities. No pneumothorax.Heart and mediastinum: Stable contours.Stable surgical changes.Additional findings: None. Signed: Ozzie Avila Verified Date/Time: 04/23/2019 05:45:08 POCT-GLUCOSE [id number] 22:28:00 Test Item Value Reference Range Comments POC-GLUCOSE METER (BEAKER) 241 mg/dL 70-110 TESTED AT [address] (test pddp=4080) [facility] [address] [id number] 20:51:00 Test Item Value Reference Range Comments MAGNESIUM (BEAKER) (test papd=617) 1.8 mg/dL 1.6-2.6 CALCIUM, [id number] 20:38:00 Test Item Value Reference Range Comments CALCIUM IONIZED (BEAKER) (test fzlr=870) 1.08 mmol/L 1.12-1.27 PH, BLOOD (BEAKER) (test ljwp=4457) 7.39 POTASSIUM-STAT [id number] 20:37:00 Test Item Value Reference Range Comments POTASSIUM (BEAKER) (test ujal=005) 3.5 meq/L 3.6-5.5 POCT-GLUCOSE [id number] 18:32:00 Test Item Value Reference Range Comments POC-GLUCOSE METER (BEAKER) 260 mg/dL 70-110 TESTED AT [address] (test uthn=0459) [place] [id number] POCT-GLUCOSE [id number] 12:42:00 Test Item Value Reference Range Comments POC-GLUCOSE METER (BEAKER) 187 mg/dL 70-110 TESTED AT [address] (test iilv=0714) [facility] [address] CBC W/PLT COUNT & AUTO [id number] 10:15:00 Test Item Value Reference Range Comments WHITE BLOOD CELL COUNT (BEAKER) (test pkql=516) 3.7 K/ L 3.5-10.5 RED BLOOD CELL COUNT (BEAKER) (test eayf=532) 3.91 M/ L 4.63-6.08 HEMOGLOBIN (BEAKER) (test bihm=056) 11.6 GM/DL 13.7-17.5 HEMATOCRIT (BEAKER) (test cqos=434) 35.3 % 40.1-51.0 MEAN CORPUSCULAR VOLUME (BEAKER) (test ytqy=813) 90.3 fL 79.0-92.2 MEAN CORPUSCULAR HEMOGLOBIN (BEAKER) (test 29.7 pg 25.7-32.2 natw=502) MEAN CORPUSCULAR HEMOGLOBIN CONC (BEAKER) (test 32.9 GM/DL 32.3-36.5 ewgt=408) RED CELL DISTRIBUTION WIDTH (BEAKER) (test 13.1 % 11.6-14.4 dptu=710) PLATELET COUNT (BEAKER) (test vqsj=162) 279 K/CU MM 150-450 MEAN PLATELET VOLUME (BEAKER) (test nahs=649) 8.6 fL 9.4-12.4 NUCLEATED RED BLOOD CELLS (BEAKER) (test 0 /100 WBC 0-0 yuid=084) (CELLAVISION MANUAL DIFF)2019-04-22 10:15:00 Test Item Value Reference Range Comments NEUTROPHILS - REL (CELLAVISION)(BEAKER) (test 74 % zzjt=0146) LYMPHOCYTES - REL (CELLAVISION)(BEAKER) (test 17 % jfue=2907) MONOCYTES - REL (CELLAVISION)(BEAKER) (test 6 % ccyb=2060) BASOPHILS - REL (CELLAVISION)(BEAKER) (test 2 % zvij=1896) BANDS - REL (CELLAVISION)(BEAKER) (test auss=5692) 1 % 0-10 NEUTROPHILS - ABS (CELLAVISION)(BEAKER) (test 2.74 K/ul 1.78-5.38 ijhh=5595) LYMPHOCYTES - ABS (CELLAVISION)(BEAKER) (test 0.63 K/ul 1.32-3.57 dpys=4544) MONOCYTES - ABS (CELLAVISION)(BEAKER) (test 0.22 K/uL 0.30-0.82 ogwd=7864) BASOPHILS - ABS (CELLAVISION)(BEAKER) (test 0.07 K/uL 0.01-0.08 cxww=2926) BANDS - ABS (CELLAVISION)(BEAKER) (test hebw=1050) 0.04 K/uL 0.00-0.80 TOTAL COUNTED (BEAKER) (test cbla=0380) 100 WBC MORPHOLOGY (BEAKER) (test vryt=312) Normal PLT MORPHOLOGY (BEAKER) (test soci=594) Normal ANISOCYTOSIS (BEAKER) (test xjzn=666) 1+ few MICROCYTES (BEAKER) (test nhhr=814) 1+ few ARTIFACT (CELLAVISION)(BEAKER) (test wezj=2658) Present PLATELET CONCENTRATION (CELLAVISION)(BEAKER) (test Adequate vofh=7713) Received comment: User comments: Slide comments:RAD, CHEST, 1 VIEW, NON [id number] 08:02:00Reason for exam:->SHORTNESS OF BREATHShould this be performed at the bedside?->YesFINAL REPORT CLINICAL HISTORY: SHORTNESS OF BREATH TECHNIQUE: 1 view of the chest. COMPARISON: 04/21/2019 IMPRESSION: The lung volumes are again seen with bibasilar pleural-parenchymal opacities unchanged. The cardiomediastinal silhouette is magnified by technique with sternotomywires. Signed: Yimi Harkins MDReport Verified Date/Time: 04/22 08:02:38 Reading Location: [facility] Reading Room [id number] 06:04:00 Test Item Value Reference Range Comments MAGNESIUM (BEAKER) (test hvep=085) 2.3 mg/dL 1.6-2.6 BASIC METABOLIC [id number] 06:04:00 Test Item Value Reference Range Comments SODIUM (BEAKER) (test 138 meq/L 136-145 ozgv=569) POTASSIUM (BEAKER) (test 4.2 meq/L 3.5-5.1 fzdo=701) CHLORIDE (BEAKER) (test 103 meq/L 98-107 nntv=278) CO2 (BEAKER) (test 29 meq/L 22-29 ttmb=836) BLOOD UREA NITROGEN 8 mg/dL 7-21 (BEAKER) (test nzec=982) CREATININE (BEAKER) (test 0.66 mg/dL 0.57-1.25 sgfl=093) GLUCOSE RANDOM (BEAKER) 201 mg/dL 70-105 (test erzx=039) CALCIUM (BEAKER) (test 8.5 mg/dL 8.4-10.2 yclm=779) EGFR (BEAKER) (test 121 mL/min/1.73 sq m ESTIMATED GFR IS NOT bctk=6560) ACCURATE CREATININE CLEARANCE IN PREDICTING GLOMERULAR FILTRATION RATE. ESTIMATED GFR IS NOT APPLICABLE FOR DIALYSIS PATIENTS. TROPONIN [id number] 06:03:00 Test Item Value Reference Range Comments TROPONIN I (BEAKER) (test jzce=202) 0.01 ng/mL 0.00-0.03 Troponin I (TnI) levels [...] and persistent tachyarrhythmia.CT, EXTREMITY, LOWER WITHOUT CONTRAST, [id number] 04:17:00Extend to ankleFINAL REPORT CLINICAL HISTORY: Lower [...] MDReport Verified Date/Time: 04/22/2019 04:17:42 Reading Location: [address] Reading Room Electronically signed by: BLAIR DANG M.D. on 04:17 AMCT, CHEST WITH IV CONTRAST- PE TEST [id number] 04:11: 00With and without contrast per surgical [...] MDReport Verified Date/Time: 04/22/2019 04:11:13 Reading Location: [address] Reading Room TROPONIN [id number] 00:10:00 Test Item Value Reference Range Comments TROPONIN I (BEAKER) (test zfej=363) < ng/mL 0.00-0.03 Troponin I (TnI) levels [...] completed or 30 min after intravenous potassium replacement.[id number] 23:56:00 Test Item Value Reference Range Comments POTASSIUM (BEAKER) (test vyhj=477) 3.9 meq/L 3.5-5.1 Check Serum Potassium level 2 hours after oral potassium replacement completed or 30 min after intravenous potassium replacement.[id number] 23:56:00 Test Item Value Reference Range Comments MAGNESIUM (BEAKER) (test dtue=389) 1.9 mg/dL 1.6-2.6 Check Serum Potassium level 2 hours after oral potassium replacement completed or 30 min after intravenous potassium replacement.CBC W/PLT COUNT & AUTO [id number] 23:38:00 Test Item Value Reference Range Comments WHITE BLOOD CELL COUNT (BEAKER) (test ebwd=971) 4.3 K/ L 3.5-10.5 RED BLOOD CELL COUNT (BEAKER) (test bidb=953) 3.86 M/ L 4.63-6.08 HEMOGLOBIN (BEAKER) (test idkh=176) 11.6 GM/DL 13.7-17.5 HEMATOCRIT (BEAKER) (test wikn=811) 35.3 % 40.1-51.0 MEAN CORPUSCULAR VOLUME (BEAKER) (test jpdn=120) 91.5 fL 79.0-92.2 MEAN CORPUSCULAR HEMOGLOBIN (BEAKER) (test 30.1 pg 25.7-32.2 ggdv=212) MEAN CORPUSCULAR HEMOGLOBIN CONC (BEAKER) (test 32.9 GM/DL 32.3-36.5 dddg=143) RED CELL DISTRIBUTION WIDTH (BEAKER) (test 13.0 % 11.6-14.4 xqbv=600) PLATELET COUNT (BEAKER) (test wopq=724) 286 K/CU MM 150-450 MEAN PLATELET VOLUME (BEAKER) (test aibi=979) 8.6 fL 9.4-12.4 NUCLEATED RED BLOOD CELLS (BEAKER) (test 0 /100 WBC 0-0 oflh=117) NEUTROPHILS RELATIVE PERCENT (BEAKER) (test 63 % mspa=326) LYMPHOCYTES RELATIVE PERCENT (BEAKER) (test 25 % qtng=902) MONOCYTES RELATIVE PERCENT (BEAKER) (test 9 % ipea=405) EOSINOPHILS RELATIVE PERCENT (BEAKER) (test 3 % qcyi=610) BASOPHILS RELATIVE PERCENT (BEAKER) (test 0 % nezo=690) NEUTROPHILS ABSOLUTE COUNT (BEAKER) (test 2.70 K/ L 1.78-5.38 slpb=425) LYMPHOCYTES ABSOLUTE COUNT (BEAKER) (test 1.05 K/ L 1.32-3.57 msyr=534) MONOCYTES ABSOLUTE COUNT (BEAKER) (test 0.40 K/ L 0.30-0.82 llem=362) EOSINOPHILS ABSOLUTE COUNT (BEAKER) (test 0.11 K/ L 0.04-0.54 rjfa=307) BASOPHILS ABSOLUTE COUNT (BEAKER) (test 0.01 K/ L 0.01-0.08 oqnz=901) IMMATURE GRANULOCYTES-RELATIVE PERCENT (BEAKER) 1 % 0-1 (test uzli=8281) POCT-GLUCOSE [id number] 22:02:00 Test Item Value Reference Range Comments POC-GLUCOSE METER (BEAKER) 227 mg/dL 70-110 TESTED AT [facility] [address] (test hasf=2843) [facility] [address] [id number] 21:03:00 Test Item Value Reference Range Comments D-DIMER QUANTITATIVE (BEAKER) (test wbrk=562) 3.21 MG/L FEU <0.50 Intended Use: The [...] exclusion of thrombosis is within 95-100% range.TROPONIN [id number] 20:59:00 Test Item Value Reference Range Comments TROPONIN I (BEAKER) (test yqee=314) < ng/mL 0.00-0.03 Troponin I (TnI) levels [...] acute neurological disease, and persistent tachyarrhythmia.HEPATIC FUNCTION [id number] 20:53: 00 Test Item Value Reference Range Comments TOTAL PROTEIN (BEAKER) (test xrdj=346) 6.8 gm/dL 6.0-8.3 ALBUMIN (BEAKER) (test hyhl=2429) 3.6 g/dL 3.5-5.0 BILIRUBIN TOTAL (BEAKER) (test lwna=780) 0.5 mg/dL 0.2-1.2 BILIRUBIN DIRECT (BEAKER) (test welj=714) 0.2 mg/dL 0.1-0.5 ALKALINE PHOSPHATASE (BEAKER) (test mxbs=545) 99 U/L 40-150 AST (SGOT) (BEAKER) (test irxo=853) 13 U/L 5-34 ALT (SGPT) (BEAKER) (test gzks=420) 10 U/L 6-55 LACTIC ACID, [id number] 20:48:00 Test Item Value Reference Range Comments LACTATE BLOOD VENOUS (2) 1.4 mmol/L 0.5-2.2 Specimen slightly hemolyzed (BEAKER) (test uezd=8490) BLOOD GAS, [id number] 20:17:00 Test Item Value Reference Range Comments PH VENOUS (BEAKER) (test jytv=460) 7.38 7.32-7.42 PCO2 VENOUS (BEAKER) (test fybn=457) 52 mmHg 41-51 PO2 VENOUS (BEAKER) (test yymv=067) 47 mmHg 25-40 O2 SATURATION VENOUS (BEAKER) (test gcgs=113) 80.9 % 40.0-70.0 HCO3 VENOUS (BEAKER) (test fpiv=899) 30 mmol/L 21-29 BASE EXCESS VENOUS (BEAKER) (test oggt=455) 3.7 mmol/L -2.0-3.0 PATIENT TEMPERATURE (BEAKER) (test wpcm=9896) 37.0 C FIO2 (BEAKER) (test ylgv=4240) 100.0 % [id number] 18:36:00 Test Item Value Reference Range Comments PROCALCITONIN (BEAKER) (test naac=5775) < ng/mL <0.05 SEPSIS RISK (ng/mL)Low: 0.05-0.50Intermediate: 0.51-2.00High: & gt;=[id number] 18:24:00 Test Item Value Reference Range Comments MAGNESIUM (BEAKER) (test mzsg=985) 0.9 mg/dL 1.6-2.6 [id number] 18:17:00 Test Item Value Reference Range Comments PHOSPHORUS (BEAKER) (test agty=824) 2.5 mg/dL 2.3-4.7 LACTIC ACID, [id number] 18:15:00 Test Item Value Reference Range Comments LACTATE BLOOD VENOUS (2) (BEAKER) (test 2.0 mmol/L 0.5-2.2 hhon=0841) PROTHROMBIN [id number] 18:09:00 Test Item Value Reference Range Comments PROTIME (BEAKER) (test nlff=701) 15.8 seconds 11.9-14.2 INR (BEAKER) (test azhr=480) 1.3 <=5.9 Effective 03/27/2019: PT Reference Range ChangeNew: 11.9-14.2 Previous: 11.7- 14.7RECOMMENDED COUMADIN/WARFARIN INR THERAPY RANGESSTANDARD DOSE: 2.0-3.0 Includes: PROPHYLAXIS for venous thrombosis, systemic embolization; TREATMENT for venous thrombosis and/or pulmonary embolus.HIGH RISK: Target INR is2.5-3.5 for patients wiht mechanical heart valves.OXYGEN SATURATION, [id number] 18:04:00 Test Item Value Reference Range Comments O2 SATURATION (MEASURED) (BEAKER) (test oaeh=4055) 84.9 % If patient has internal jugular ( IJ) or subclavian central line or PICC line. Draw from distal port. Label as central venous oxygen.TROPONIN [id number] 16:28 :00 Test Item Value Reference Range Comments TROPONIN I (BEAKER) (test iesb=010) < ng/mL 0.00-0.03 Troponin I (TnI) levels [...] acute neurological disease, and persistent tachyarrhythmia.POCT-LACTIC ACID, [id number] 16:27 :00 Test Item Value Reference Range Comments POC-LACTIC ACID, VENOUS 3.3 mmol/L 0.9-1.7 TESTED AT [facility] [address] [facility] (BEAKER) (test qjdv=4910) [facility] [address] BASIC METABOLIC [id number] 16:19:00 Test Item Value Reference Range Comments SODIUM (BEAKER) (test 134 meq/L 136-145 czqh=657) POTASSIUM (BEAKER) (test 4.5 meq/L 3.5-5.1 Specimen moderately phkr=047) hemolyzed CHLORIDE (BEAKER) (test 101 meq/L 98-107 msod=366) CO2 (BEAKER) (test 22 meq/L 22-29 zoko=839) BLOOD UREA NITROGEN 9 mg/dL 7-21 (BEAKER) (test nvfk=498) CREATININE (BEAKER) (test 0.75 mg/dL 0.57-1.25 Specimen moderately gsab=948) hemolyzed GLUCOSE RANDOM (BEAKER) 181 mg/dL 70-105 (test eemh=120) CALCIUM (BEAKER) (test 8.7 mg/dL 8.4-10.2 bniv=240) EGFR (BEAKER) (test 105 mL/min/1.73 sq m ESTIMATED GFR IS NOT fdxn=2184) ACCURATE CREATININE CLEARANCE IN PREDICTING GLOMERULAR FILTRATION RATE. ESTIMATED GFR IS NOT APPLICABLE FOR DIALYSIS PATIENTS. BLOOD GAS, [id number] 16:10:00 Test Item Value Reference Range Comments PH ARTERIAL (BEAKER) (test tbdg=221) 7.43 7.35-7.45 PCO2 ARTERIAL (BEAKER) (test jrls=005) 43 mmHg 35-45 PO2 ARTERIAL (BEAKER) (test lkft=923) 141 mmHg 80-90 O2 SATURATION ARTERIAL (BEAKER) (test gylc=414) 98.9 % 96.0-97.0 HCO3 ARTERIAL (BEAKER) (test avka=409) 28 mmol/L 21-29 BASE EXCESS ARTERIAL (BEAKER) (test xgqd=758) 3.1 mmol/L -2.0-3.0 PATIENT TEMPERATURE (BEAKER) (test tdqj=2696) 36.5 C FIO2 (BEAKER) (test xyeu=7820) 60.0 % RAD, CHEST, 1 VIEW, NON [id number] 16:08:00Reason for exam:->SHORTNESS OF BREATHShould this be performed at the bedside?->YesFINAL REPORT Comparison: 04/07/2019 TECHNIQUE: Single view of the chest FINDINGS: Lung volumes are low. Bibasilar opacities may represent small pleural effusions with adjacent airspace disease. Cardiac silhouette is enlarged. Post surgical changes in the mediastinum. No acute skeletal abnormality. Signed: Shailesh [facility] Verified Date/Time: 04/21/2019 16:08:26 Reading Location: [address] Transitional Reading Room POCT-GLUCOSE [id number] 13:16:00 Test Item Value Reference Range Comments POC-GLUCOSE METER (BEAKER) 231 mg/dL 70-110 TESTED AT [address] (test dnim=2879) [facility] [address] POCT-GLUCOSE [id number] 07:07:00 Test Item Value Reference Range Comments POC-GLUCOSE METER (BEAKER) 157 mg/dL 70-110 TESTED AT [address] (test quok=1697) [facility] [address] [id number] 05:11:00 Test Item Value Reference Range Comments MAGNESIUM (BEAKER) (test dats=098) 2.0 mg/dL 1.6-2.6 BASIC METABOLIC [id number] 05:11:00 Test Item Value Reference Range Comments SODIUM (BEAKER) (test 137 meq/L 136-145 yjrq=762) POTASSIUM (BEAKER) (test 3.8 meq/L 3.5-5.1 bwpd=649) CHLORIDE (BEAKER) (test 101 meq/L 98-107 rjpo=448) CO2 (BEAKER) (test 28 meq/L 22-29 mgsz=246) BLOOD UREA NITROGEN 10 mg/dL 7-21 (BEAKER) (test gspl=371) CREATININE (BEAKER) (test 0.66 mg/dL 0.57-1.25 tbzd=946) GLUCOSE RANDOM (BEAKER) 164 mg/dL 70-105 (test hpzi=155) CALCIUM (BEAKER) (test 8.6 mg/dL 8.4-10.2 xjaa=224) EGFR (BEAKER) (test 121 mL/min/1.73 sq m ESTIMATED GFR IS NOT qiph=2114) ACCURATE CREATININE CLEARANCE IN PREDICTING GLOMERULAR FILTRATION RATE. ESTIMATED GFR IS NOT APPLICABLE FOR DIALYSIS PATIENTS. CBC W/PLT COUNT & AUTO [id number] 04:45:00 Test Item Value Reference Range Comments WHITE BLOOD CELL COUNT (BEAKER) (test rfsn=907) 8.5 K/ L 3.5-10.5 RED BLOOD CELL COUNT (BEAKER) (test bhry=104) 3.52 M/ L 4.63-6.08 HEMOGLOBIN (BEAKER) (test mxxy=154) 10.7 GM/DL 13.7-17.5 HEMATOCRIT (BEAKER) (test uwfs=069) 31.9 % 40.1-51.0 MEAN CORPUSCULAR VOLUME (BEAKER) (test qliz=909) 90.6 fL 79.0-92.2 MEAN CORPUSCULAR HEMOGLOBIN (BEAKER) (test 30.4 pg 25.7-32.2 oeao=521) MEAN CORPUSCULAR HEMOGLOBIN CONC (BEAKER) (test 33.5 GM/DL 32.3-36.5 tduc=681) RED CELL DISTRIBUTION WIDTH (BEAKER) (test 12.8 % 11.6-14.4 rdnt=319) PLATELET COUNT (BEAKER) (test nxuv=176) 262 K/CU MM 150-450 MEAN PLATELET VOLUME (BEAKER) (test mezm=542) 8.8 fL 9.4-12.4 NUCLEATED RED BLOOD CELLS (BEAKER) (test 0 /100 WBC 0-0 cigw=599) NEUTROPHILS RELATIVE PERCENT (BEAKER) (test 68 % gkjh=661) LYMPHOCYTES RELATIVE PERCENT (BEAKER) (test 19 % fqgc=235) MONOCYTES RELATIVE PERCENT (BEAKER) (test 9 % yalg=931) EOSINOPHILS RELATIVE PERCENT (BEAKER) (test 3 % fenb=933) BASOPHILS RELATIVE PERCENT (BEAKER) (test 0 % oixn=762) NEUTROPHILS ABSOLUTE COUNT (BEAKER) (test 5.76 K/ L 1.78-5.38 pras=720) LYMPHOCYTES ABSOLUTE COUNT (BEAKER) (test 1.64 K/ L 1.32-3.57 ovkq=765) MONOCYTES ABSOLUTE COUNT (BEAKER) (test 0.73 K/ L 0.30-0.82 tzrj=702) EOSINOPHILS ABSOLUTE COUNT (BEAKER) (test 0.25 K/ L 0.04-0.54 plxc=084) BASOPHILS ABSOLUTE COUNT (BEAKER) (test 0.03 K/ L 0.01-0.08 yjnb=085) IMMATURE GRANULOCYTES-RELATIVE PERCENT (BEAKER) 1 % 0-1 (test jlpk=3427) POCT-GLUCOSE [id number] 22:03:00 Test Item Value Reference Range Comments POC-GLUCOSE METER (BEAKER) 187 mg/dL 70-110 TESTED AT [address] (test zvyk=1173) [place] [address] POCT-GLUCOSE [id number] 17:09:00 Test Item Value Reference Range Comments POC-GLUCOSE METER (BEAKER) 265 mg/dL 70-110 TESTED AT [address] (test bwvw=8985) [place] [id number] LACTIC ACID, [id number] 13:50:00 Test Item Value Reference Range Comments LACTATE BLOOD VENOUS (2) 1.4 mmol/L 0.5-2.2 Specimen slightly hemolyzed (BEAKER) (test zktg=9321) [id number] 12:18:00 Test Item Value Reference Range Comments MAGNESIUM (BEAKER) (test bvlc=218) 1.5 mg/dL 1.6-2.6 BASIC METABOLIC [id number] 12:18:00 Test Item Value Reference Range Comments SODIUM (BEAKER) (test 134 meq/L 136-145 nrdb=413) POTASSIUM (BEAKER) (test 3.5 meq/L 3.5-5.1 pizb=856) CHLORIDE (BEAKER) (test 98 meq/L 98-107 dtih=146) CO2 (BEAKER) (test 26 meq/L 22-29 efax=753) BLOOD UREA NITROGEN 13 mg/dL 7-21 (BEAKER) (test mlxa=148) CREATININE (BEAKER) (test 0.68 mg/dL 0.57-1.25 tyyw=358) GLUCOSE RANDOM (BEAKER) 209 mg/dL 70-105 (test pehv=383) CALCIUM (BEAKER) (test 8.5 mg/dL 8.4-10.2 zgkh=934) EGFR (BEAKER) (test 117 mL/min/1.73 sq m ESTIMATED GFR IS NOT shdn=2529) ACCURATE CREATININE CLEARANCE IN PREDICTING GLOMERULAR FILTRATION RATE. ESTIMATED GFR IS NOT APPLICABLE FOR DIALYSIS PATIENTS. POCT-GLUCOSE [id number] 12:07:00 Test Item Value Reference Range Comments POC-GLUCOSE METER (BEAKER) 222 mg/dL 70-110 TESTED AT [facility] [address] (test zriz=8971) [facility] [address] CBC W/PLT COUNT & AUTO [id number] 12:02:00 Test Item Value Reference Range Comments WHITE BLOOD CELL COUNT (BEAKER) (test qgwh=319) 9.9 K/ L 3.5-10.5 RED BLOOD CELL COUNT (BEAKER) (test tejn=461) 3.65 M/ L 4.63-6.08 HEMOGLOBIN (BEAKER) (test ftbb=044) 11.2 GM/DL 13.7-17.5 HEMATOCRIT (BEAKER) (test just=308) 32.5 % 40.1-51.0 MEAN CORPUSCULAR VOLUME (BEAKER) (test ebdp=017) 89.0 fL 79.0-92.2 MEAN CORPUSCULAR HEMOGLOBIN (BEAKER) (test 30.7 pg 25.7-32.2 lohr=931) MEAN CORPUSCULAR HEMOGLOBIN CONC (BEAKER) (test 34.5 GM/DL 32.3-36.5 zlse=632) RED CELL DISTRIBUTION WIDTH (BEAKER) (test 12.6 % 11.6-14.4 phht=801) PLATELET COUNT (BEAKER) (test cmhw=018) 304 K/CU MM 150-450 MEAN PLATELET VOLUME (BEAKER) (test dqid=195) 9.1 fL 9.4-12.4 NUCLEATED RED BLOOD CELLS (BEAKER) (test 0 /100 WBC 0-0 kzts=603) NEUTROPHILS RELATIVE PERCENT (BEAKER) (test 72 % snsq=663) LYMPHOCYTES RELATIVE PERCENT (BEAKER) (test 16 % lwvt=970) MONOCYTES RELATIVE PERCENT (BEAKER) (test 8 % pijy=778) EOSINOPHILS RELATIVE PERCENT (BEAKER) (test 2 % rorp=355) BASOPHILS RELATIVE PERCENT (BEAKER) (test 1 % pfuv=117) NEUTROPHILS ABSOLUTE COUNT (BEAKER) (test 7.14 K/ L 1.78-5.38 wszl=840) LYMPHOCYTES ABSOLUTE COUNT (BEAKER) (test 1.61 K/ L 1.32-3.57 qguz=705) MONOCYTES ABSOLUTE COUNT (BEAKER) (test 0.81 K/ L 0.30-0.82 srda=896) EOSINOPHILS ABSOLUTE COUNT (BEAKER) (test 0.22 K/ L 0.04-0.54 gmbt=195) BASOPHILS ABSOLUTE COUNT (BEAKER) (test 0.05 K/ L 0.01-0.08 ucmr=898) IMMATURE GRANULOCYTES-RELATIVE PERCENT (BEAKER) 1 % 0-1 (test geva=9573) POCT-GLUCOSE [id number] 08:20:00 Test Item Value Reference Range Comments POC-GLUCOSE METER (BEAKER) 186 mg/dL 70-110 TESTED AT [address] (test sigz=6685) [place] [id number] POCT-GLUCOSE [id number] 22:28:00 Test Item Value Reference Range Comments POC-GLUCOSE METER (BEAKER) 249 mg/dL 70-110 TESTED AT [address] (test seha=4890) [place] [address] POCT-GLUCOSE [id number] 16:58:00 Test Item Value Reference Range Comments POC-GLUCOSE METER (BEAKER) 246 mg/dL 70-110 TESTED AT [address] (test lcgs=9296) [place] [address] POCT-GLUCOSE [id number] 12:30:00 Test Item Value Reference Range Comments POC-GLUCOSE METER (BEAKER) 228 mg/dL 70-110 TESTED AT [address] (test kftk=1673) [place] [id number] POCT-GLUCOSE [id number] 08:57:00 Test Item Value Reference Range Comments POC-GLUCOSE METER (BEAKER) 196 mg/dL 70-110 TESTED AT [address] (test eoob=5906) [place] [address] [id number] 08:00:00 Test Item Value Reference Range Comments MAGNESIUM (BEAKER) (test gwkg=453) 1.8 mg/dL 1.6-2.6 BASIC METABOLIC [id number] 08:00:00 Test Item Value Reference Range Comments SODIUM (BEAKER) (test 134 meq/L 136-145 dnoj=323) POTASSIUM (BEAKER) (test 3.5 meq/L 3.5-5.1 dlru=965) CHLORIDE (BEAKER) (test 98 meq/L 98-107 sbds=515) CO2 (BEAKER) (test 30 meq/L 22-29 crtb=428) BLOOD UREA NITROGEN 15 mg/dL 7-21 (BEAKER) (test dykc=714) CREATININE (BEAKER) (test 0.66 mg/dL 0.57-1.25 edwl=515) GLUCOSE RANDOM (BEAKER) 175 mg/dL 70-105 (test jgyx=380) CALCIUM (BEAKER) (test 8.5 mg/dL 8.4-10.2 gxyf=692) EGFR (BEAKER) (test 121 mL/min/1.73 sq m ESTIMATED GFR IS NOT dtnf=2765) ACCURATE CREATININE CLEARANCE IN PREDICTING GLOMERULAR FILTRATION RATE. ESTIMATED GFR IS NOT APPLICABLE FOR DIALYSIS PATIENTS. CBC W/PLT COUNT & AUTO [id number] 05:01:00 Test Item Value Reference Range Comments WHITE BLOOD CELL COUNT (BEAKER) (test ngrv=796) 10.7 K/ L 3.5-10.5 RED BLOOD CELL COUNT (BEAKER) (test zmzc=388) 3.65 M/ L 4.63-6.08 HEMOGLOBIN (BEAKER) (test fkel=862) 11.0 GM/DL 13.7-17.5 HEMATOCRIT (BEAKER) (test gfdu=248) 33.4 % 40.1-51.0 MEAN CORPUSCULAR VOLUME (BEAKER) (test coqd=318) 91.5 fL 79.0-92.2 MEAN CORPUSCULAR HEMOGLOBIN (BEAKER) (test 30.1 pg 25.7-32.2 nhra=447) MEAN CORPUSCULAR HEMOGLOBIN CONC (BEAKER) (test 32.9 GM/DL 32.3-36.5 cgvy=569) RED CELL DISTRIBUTION WIDTH (BEAKER) (test 12.6 % 11.6-14.4 etur=419) PLATELET COUNT (BEAKER) (test xvls=408) 244 K/CU MM 150-450 MEAN PLATELET VOLUME (BEAKER) (test cggd=387) 9.5 fL 9.4-12.4 NUCLEATED RED BLOOD CELLS (BEAKER) (test 0 /100 WBC 0-0 fxzh=503) NEUTROPHILS RELATIVE PERCENT (BEAKER) (test 70 % emmw=195) LYMPHOCYTES RELATIVE PERCENT (BEAKER) (test 18 % acsq=106) MONOCYTES RELATIVE PERCENT (BEAKER) (test 9 % itld=596) EOSINOPHILS RELATIVE PERCENT (BEAKER) (test 3 % jgbz=603) BASOPHILS RELATIVE PERCENT (BEAKER) (test 1 % xtni=043) NEUTROPHILS ABSOLUTE COUNT (BEAKER) (test 7.44 K/ L 1.78-5.38 tzec=474) LYMPHOCYTES ABSOLUTE COUNT (BEAKER) (test 1.91 K/ L 1.32-3.57 qzio=499) MONOCYTES ABSOLUTE COUNT (BEAKER) (test 0.92 K/ L 0.30-0.82 wztt=642) EOSINOPHILS ABSOLUTE COUNT (BEAKER) (test 0.29 K/ L 0.04-0.54 ovwg=683) BASOPHILS ABSOLUTE COUNT (BEAKER) (test 0.06 K/ L 0.01-0.08 jdhx=333) IMMATURE GRANULOCYTES-RELATIVE PERCENT (BEAKER) 1 % 0-1 (test jmkf=5270) POCT-GLUCOSE [id number] 22:17:00 Test Item Value Reference Range Comments POC-GLUCOSE METER (BEAKER) 197 mg/dL 70-110 TESTED AT [address] (test kytd=8517) [place] [address] POCT-GLUCOSE [id number] 17:38:00 Test Item Value Reference Range Comments POC-GLUCOSE METER (BEAKER) 226 mg/dL 70-110 TESTED AT [address] (test mcga=2371) [place] [address] POCT-GLUCOSE [id number] 12:21:00 Test Item Value Reference Range Comments POC-GLUCOSE METER (BEAKER) 194 mg/dL 70-110 TESTED AT [address] (test ysuf=0131) [place] [address] POCT-GLUCOSE [id number] 09:25:00 Test Item Value Reference Range Comments POC-GLUCOSE METER (BEAKER) 169 mg/dL 70-110 TESTED AT [address] (test olqj=1651) [place] [address] BASIC METABOLIC [id number] 06:56:00 Test Item Value Reference Range Comments SODIUM (BEAKER) (test 137 meq/L 136-145 chxh=776) POTASSIUM (BEAKER) (test 3.7 meq/L 3.5-5.1 plfv=137) CHLORIDE (BEAKER) (test 101 meq/L 98-107 hmxx=118) CO2 (BEAKER) (test 29 meq/L 22-29 pqrt=121) BLOOD UREA NITROGEN 17 mg/dL 7-21 (BEAKER) (test afnz=139) CREATININE (BEAKER) (test 0.64 mg/dL 0.57-1.25 fqfg=823) GLUCOSE RANDOM (BEAKER) 192 mg/dL 70-105 (test zumy=854) CALCIUM (BEAKER) (test 8.2 mg/dL 8.4-10.2 cjug=605) EGFR (BEAKER) (test 126 mL/min/1.73 sq m ESTIMATED GFR IS NOT nckp=9932) ACCURATE CREATININE CLEARANCE IN PREDICTING GLOMERULAR FILTRATION RATE. ESTIMATED GFR IS NOT APPLICABLE FOR DIALYSIS PATIENTS. [id number] 06:47:00 Test Item Value Reference Range Comments MAGNESIUM (BEAKER) (test dfka=237) 2.0 mg/dL 1.6-2.6 CBC W/PLT COUNT & AUTO [id number] 06:17:00 Test Item Value Reference Range Comments WHITE BLOOD CELL COUNT (BEAKER) (test slss=345) 9.2 K/ L 3.5-10.5 RED BLOOD CELL COUNT (BEAKER) (test mmnr=407) 3.43 M/ L 4.63-6.08 HEMOGLOBIN (BEAKER) (test cdjc=104) 10.3 GM/DL 13.7-17.5 HEMATOCRIT (BEAKER) (test vhld=995) 31.3 % 40.1-51.0 MEAN CORPUSCULAR VOLUME (BEAKER) (test ofqa=041) 91.3 fL 79.0-92.2 MEAN CORPUSCULAR HEMOGLOBIN (BEAKER) (test 30.0 pg 25.7-32.2 wnju=814) MEAN CORPUSCULAR HEMOGLOBIN CONC (BEAKER) (test 32.9 GM/DL 32.3-36.5 vlyn=851) RED CELL DISTRIBUTION WIDTH (BEAKER) (test 12.9 % 11.6-14.4 ngbg=726) PLATELET COUNT (BEAKER) (test zdty=475) 185 K/CU MM 150-450 MEAN PLATELET VOLUME (BEAKER) (test vvuz=793) 9.8 fL 9.4-12.4 NUCLEATED RED BLOOD CELLS (BEAKER) (test 0 /100 WBC 0-0 hhdm=366) NEUTROPHILS RELATIVE PERCENT (BEAKER) (test 75 % dcwe=413) LYMPHOCYTES RELATIVE PERCENT (BEAKER) (test 14 % bvci=326) MONOCYTES RELATIVE PERCENT (BEAKER) (test 7 % jujb=012) EOSINOPHILS RELATIVE PERCENT (BEAKER) (test 3 % rlcj=019) BASOPHILS RELATIVE PERCENT (BEAKER) (test 0 % phre=851) NEUTROPHILS ABSOLUTE COUNT (BEAKER) (test 6.88 K/ L 1.78-5.38 kzen=276) LYMPHOCYTES ABSOLUTE COUNT (BEAKER) (test 1.31 K/ L 1.32-3.57 ovhs=745) MONOCYTES ABSOLUTE COUNT (BEAKER) (test 0.67 K/ L 0.30-0.82 geat=941) EOSINOPHILS ABSOLUTE COUNT (BEAKER) (test 0.28 K/ L 0.04-0.54 iurj=603) BASOPHILS ABSOLUTE COUNT (BEAKER) (test 0.03 K/ L 0.01-0.08 mfaa=816) IMMATURE GRANULOCYTES-RELATIVE PERCENT (BEAKER) 0 % 0-1 (test efot=7253) POCT-GLUCOSE [id number] 21:52:00 Test Item Value Reference Range Comments POC-GLUCOSE METER (BEAKER) 240 mg/dL 70-110 TESTED AT [address] (test pxrd=0407) [facility] [address] POCT-GLUCOSE [id number] 18:12:00 Test Item Value Reference Range Comments POC-GLUCOSE METER (BEAKER) 227 mg/dL 70-110 TESTED AT [address] (test ewte=5802) [facility] [address] POCT-GLUCOSE [id number] 13:29:00 Test Item Value Reference Range Comments POC-GLUCOSE METER (BEAKER) 222 mg/dL 70-110 TESTED AT [address] (test beft=6527) [facility] [address] POCT-GLUCOSE [id number] 09:54:00 Test Item Value Reference Range Comments POC-GLUCOSE METER (BEAKER) 192 mg/dL 70-110 TESTED AT [facility] [address] (test scjb=8066) [facility] [address] [id number] 07:43:00 Test Item Value Reference Range Comments MAGNESIUM (BEAKER) (test sdvd=304) 1.8 mg/dL 1.6-2.6 BASIC METABOLIC [id number] 07:43:00 Test Item Value Reference Range Comments SODIUM (BEAKER) (test 137 meq/L 136-145 jmjg=254) POTASSIUM (BEAKER) (test 3.9 meq/L 3.5-5.1 dhqe=589) CHLORIDE (BEAKER) (test 102 meq/L 98-107 aotf=187) CO2 (BEAKER) (test 28 meq/L 22-29 zewu=341) BLOOD UREA NITROGEN 12 mg/dL 7-21 (BEAKER) (test xnml=789) CREATININE (BEAKER) (test 0.61 mg/dL 0.57-1.25 nltl=678) GLUCOSE RANDOM (BEAKER) 206 mg/dL 70-105 (test yxfc=086) CALCIUM (BEAKER) (test 8.5 mg/dL 8.4-10.2 rhwz=698) EGFR (BEAKER) (test 133 mL/min/1.73 sq m ESTIMATED GFR IS NOT pivq=0430) ACCURATE CREATININE CLEARANCE IN PREDICTING GLOMERULAR FILTRATION RATE. ESTIMATED GFR IS NOT APPLICABLE FOR DIALYSIS PATIENTS. CBC W/PLT COUNT & AUTO [id number] 07:11:00 Test Item Value Reference Range Comments WHITE BLOOD CELL COUNT (BEAKER) (test kkgu=466) 11.0 K/ L 3.5-10.5 RED BLOOD CELL COUNT (BEAKER) (test gfvk=256) 3.63 M/ L 4.63-6.08 HEMOGLOBIN (BEAKER) (test crne=357) 10.8 GM/DL 13.7-17.5 HEMATOCRIT (BEAKER) (test pyht=140) 33.0 % 40.1-51.0 MEAN CORPUSCULAR VOLUME (BEAKER) (test mrep=534) 90.9 fL 79.0-92.2 MEAN CORPUSCULAR HEMOGLOBIN (BEAKER) (test 29.8 pg 25.7-32.2 cwhr=058) MEAN CORPUSCULAR HEMOGLOBIN CONC (BEAKER) (test 32.7 GM/DL 32.3-36.5 zsbv=671) RED CELL DISTRIBUTION WIDTH (BEAKER) (test 13.1 % 11.6-14.4 uazk=767) PLATELET COUNT (BEAKER) (test gdaj=092) 157 K/CU MM 150-450 MEAN PLATELET VOLUME (BEAKER) (test whwh=689) 9.7 fL 9.4-12.4 NUCLEATED RED BLOOD CELLS (BEAKER) (test 0 /100 WBC 0-0 zyii=177) NEUTROPHILS RELATIVE PERCENT (BEAKER) (test 82 % pwua=602) LYMPHOCYTES RELATIVE PERCENT (BEAKER) (test 10 % laup=070) MONOCYTES RELATIVE PERCENT (BEAKER) (test 6 % oguk=023) EOSINOPHILS RELATIVE PERCENT (BEAKER) (test 1 % stuu=126) BASOPHILS RELATIVE PERCENT (BEAKER) (test 0 % hska=848) NEUTROPHILS ABSOLUTE COUNT (BEAKER) (test 8.94 K/ L 1.78-5.38 cgpf=870) LYMPHOCYTES ABSOLUTE COUNT (BEAKER) (test 1.14 K/ L 1.32-3.57 rtsi=929) MONOCYTES ABSOLUTE COUNT (BEAKER) (test 0.68 K/ L 0.30-0.82 slyb=576) EOSINOPHILS ABSOLUTE COUNT (BEAKER) (test 0.12 K/ L 0.04-0.54 rztm=252) BASOPHILS ABSOLUTE COUNT (BEAKER) (test 0.03 K/ L 0.01-0.08 qpvz=336) IMMATURE GRANULOCYTES-RELATIVE PERCENT (BEAKER) 1 % 0-1 (test nrvx=2777) RAD, CHEST, 1 VIEW, NON [id number] 04:26:00Reason for exam:->post opShould this be performed [...] is no definite pleural effusion. Signed: Brianda Alvarez MDReport Verified Date/Time: 04/07/2019 04:26:24 Reading Location: [address] Reading Room POCT-GLUCOSE [id number] 23:13:00 Test Item Value Reference Range Comments POC-GLUCOSE METER (BEAKER) 219 mg/dL 70-110 TESTED AT [address] (test cxrb=9368) [facility] [address] [id number] 16:51:00 Test Item Value Reference Range Comments MAGNESIUM (BEAKER) (test 1.9 mg/dL 1.6-2.6 Specimen slightly hemolyzed tgma=610) Check Serum Magnesium level 2 hours after IV magnesium replacement.PRN - repeat potassium levels every 1 hour until glucose level is less than 450 mg/ [id number] 16:51:00 Test Item Value Reference Range Comments POTASSIUM (BEAKER) (test 3.6 meq/L 3.5-5.1 Specimen slightly hemolyzed xtjs=265) Check Serum Magnesium level 2 hours after IV magnesium replacement.PRN - repeat potassium levels every 1 hour until glucose level is less than 450 mg/dLLACTIC ACID, [id number] 15:41:00 Test Item Value Reference Range Comments LACTATE BLOOD ARTERIAL (2) 1.7 mmol/L 0.5-2.2 Specimen slightly hemolyzed (BEAKER) (test jbmi=3675) POCT-GLUCOSE [id number] 15:30:00 Test Item Value Reference Range Comments POC-GLUCOSE METER (BEAKER) 200 mg/dL 70-110 TESTED AT [address] (test cseq=7919) [facility] [address] POCT-GLUCOSE [id number] 07:58:00 Test Item Value Reference Range Comments POC-GLUCOSE METER (BEAKER) 179 mg/dL 70-110 TESTED AT [address] (test ljwg=5205) [facility] [address] POCT-GLUCOSE [id number] 07:32:00 Test Item Value Reference Range Comments POC-GLUCOSE METER (BEAKER) 196 mg/dL 70-110 TESTED AT [address] (test amya=4143) [facility] [address] RAD, CHEST, 1 VIEW, NON [id number] 04:52:00Reason for exam:->post opShould this be performed [...] findings: None. Signed: Ozzie Avila Verified Date/Time: 04/06/2019 04:52:11 [id number] 04:06:00 Test Item Value Reference Range Comments PHOSPHORUS (BEAKER) (test nfgz=604) 3.4 mg/dL 2.3-4.7 [id number] 04:06:00 Test Item Value Reference Range Comments MAGNESIUM (BEAKER) (test cxqn=064) 1.6 mg/dL 1.6-2.6 BASIC METABOLIC [id number] 04:06:00 Test Item Value Reference Range Comments SODIUM (BEAKER) (test 144 meq/L 136-145 dxxq=669) POTASSIUM (BEAKER) (test 3.4 meq/L 3.5-5.1 aoog=194) CHLORIDE (BEAKER) (test 108 meq/L 98-107 krka=897) CO2 (BEAKER) (test 26 meq/L 22-29 ubcv=233) BLOOD UREA NITROGEN 10 mg/dL 7-21 (BEAKER) (test ijqc=331) CREATININE (BEAKER) (test 0.63 mg/dL 0.57-1.25 eipo=333) GLUCOSE RANDOM (BEAKER) 189 mg/dL 70-105 (test njys=311) CALCIUM (BEAKER) (test 8.9 mg/dL 8.4-10.2 yelt=190) EGFR (BEAKER) (test 128 mL/min/1.73 sq m ESTIMATED GFR IS NOT wfdz=3374) ACCURATE CREATININE CLEARANCE IN PREDICTING GLOMERULAR FILTRATION RATE. ESTIMATED GFR IS NOT APPLICABLE FOR DIALYSIS PATIENTS. BLOOD GAS, [id number] 03:49:00 Test Item Value Reference Range Comments PH ARTERIAL (BEAKER) (test tdxr=005) 7.46 7.35-7.45 PCO2 ARTERIAL (BEAKER) (test hcyi=675) 40 mmHg 35-45 PO2 ARTERIAL (BEAKER) (test omor=927) 64 mmHg 80-90 O2 SATURATION ARTERIAL (BEAKER) (test xbho=164) 93.2 % 96.0-97.0 HCO3 ARTERIAL (BEAKER) (test zfmp=850) 27 mmol/L 21-29 BASE EXCESS ARTERIAL (BEAKER) (test poao=374) 3.2 mmol/L -2.0-3.0 PATIENT TEMPERATURE (BEAKER) (test ifqs=8277) 37.3 C FIO2 (BEAKER) (test xane=3504) 28.0 % CBC W/PLT COUNT & AUTO [id number] 03:29:00 Test Item Value Reference Range Comments WHITE BLOOD CELL COUNT (BEAKER) (test qppe=261) 11.5 K/ L 3.5-10.5 RED BLOOD CELL COUNT (BEAKER) (test hjek=189) 3.68 M/ L 4.63-6.08 HEMOGLOBIN (BEAKER) (test bjtn=628) 11.1 GM/DL 13.7-17.5 HEMATOCRIT (BEAKER) (test ctfy=638) 32.7 % 40.1-51.0 MEAN CORPUSCULAR VOLUME (BEAKER) (test syoa=750) 88.9 fL 79.0-92.2 MEAN CORPUSCULAR HEMOGLOBIN (BEAKER) (test 30.2 pg 25.7-32.2 omrl=193) MEAN CORPUSCULAR HEMOGLOBIN CONC (BEAKER) (test 33.9 GM/DL 32.3-36.5 bhsw=168) RED CELL DISTRIBUTION WIDTH (BEAKER) (test 13.9 % 11.6-14.4 awwe=913) PLATELET COUNT (BEAKER) (test oncw=939) 146 K/CU MM 150-450 MEAN PLATELET VOLUME (BEAKER) (test thfy=458) 9.6 fL 9.4-12.4 NUCLEATED RED BLOOD CELLS (BEAKER) (test 0 /100 WBC 0-0 bxms=744) NEUTROPHILS RELATIVE PERCENT (BEAKER) (test 81 % scyv=604) LYMPHOCYTES RELATIVE PERCENT (BEAKER) (test 11 % zvke=843) MONOCYTES RELATIVE PERCENT (BEAKER) (test 7 % wiqk=580) EOSINOPHILS RELATIVE PERCENT (BEAKER) (test 0 % jfcm=606) BASOPHILS RELATIVE PERCENT (BEAKER) (test 0 % lfkz=443) NEUTROPHILS ABSOLUTE COUNT (BEAKER) (test 9.31 K/ L 1.78-5.38 bkvn=822) LYMPHOCYTES ABSOLUTE COUNT (BEAKER) (test 1.30 K/ L 1.32-3.57 waof=419) MONOCYTES ABSOLUTE COUNT (BEAKER) (test 0.80 K/ L 0.30-0.82 kbxl=233) EOSINOPHILS ABSOLUTE COUNT (BEAKER) (test 0.01 K/ L 0.04-0.54 dzuv=994) BASOPHILS ABSOLUTE COUNT (BEAKER) (test 0.03 K/ L 0.01-0.08 rlue=377) IMMATURE GRANULOCYTES-RELATIVE PERCENT (BEAKER) 0 % 0-1 (test wqxp=2560) POCT-GLUCOSE [id number] 17:09:00 Test Item Value Reference Range Comments POC-GLUCOSE METER (BEAKER) 189 mg/dL 70-110 TESTED AT [address] (test aiuy=1679) [place] [address] PLATELET AGGREGATION: FUNCTION [id number] 14:45:00 Test Item Value Reference Range Comments WEAK ADP RESULT(BEAKER) (test 60 % 60-91 vadm=7373) PLATELET FUNCTION SCREEN 60-100% indicates normal INTERP (BEAKER) (test platelet function vwbx=8265) [id number] (BEAKER) Attila Vasquez M.D. (electonic (test fetu=4267) signature) PLATELET COUNT AGG (BEAKER) 259 K/CU MM 150-450 (test kjqx=1995) Platelet Function Screen results may be falsely low with platelet counts<100, 000/cu mm.POCT-GLUCOSE [id number] 12:26:00 Test Item Value Reference Range Comments POC-GLUCOSE METER (BEAKER) 241 mg/dL 70-110 TESTED AT [address] (test ssfv=0542) [place] [address] POCT-GLUCOSE [id number] 12:26:00 Test Item Value Reference Range Comments POC-GLUCOSE METER (BEAKER) 122 mg/dL 70-110 TESTED AT [address] (test qnse=4020) [facility] [address] POCT-GLUCOSE [id number] 12:26:00 Test Item Value Reference Range Comments POC-GLUCOSE METER (BEAKER) 125 mg/dL 70-110 TESTED AT [address] (test tycz=5399) [place] [id number] POCT-GLUCOSE [id number] 12:25:00 Test Item Value Reference Range Comments POC-GLUCOSE METER (BEAKER) 128 mg/dL 70-110 TESTED AT [address] (test dcqt=4465) [place] [id number] POCT-GLUCOSE [id number] 12:25:00 Test Item Value Reference Range Comments POC-GLUCOSE METER (BEAKER) 143 mg/dL 70-110 TESTED AT [address] (test erjm=7113) [facility] [address] BLOOD GAS, [id number] 08:23:00 Test Item Value Reference Range Comments PH ARTERIAL (BEAKER) (test rnts=828) 7.45 7.35-7.45 PCO2 ARTERIAL (BEAKER) (test gzbp=754) 40 mmHg 35-45 PO2 ARTERIAL (BEAKER) (test sycg=979) 82 mmHg 80-90 O2 SATURATION ARTERIAL (BEAKER) (test cuci=972) 96.1 % 96.0-97.0 HCO3 ARTERIAL (BEAKER) (test piwl=350) 27 mmol/L 21-29 BASE EXCESS ARTERIAL (BEAKER) (test zeef=721) 2.8 mmol/L -2.0-3.0 PATIENT TEMPERATURE (BEAKER) (test vhth=9983) 37.8 C FIO2 (BEAKER) (test tohh=3708) 40.0 % POCT-GLUCOSE [id number] 06:30:00 Test Item Value Reference Range Comments POC-GLUCOSE METER (BEAKER) 159 mg/dL 70-110 TESTED AT [address] (test epbz=5613) [facility] [address] POCT-GLUCOSE [id number] 06:22:00 Test Item Value Reference Range Comments POC-GLUCOSE METER (BEAKER) 173 mg/dL 70-110 TESTED AT [place] [id number] [facility] (test zfty=8635) [facility] [address] POCT-GLUCOSE [id number] 06:22:00 Test Item Value Reference Range Comments POC-GLUCOSE METER (BEAKER) 190 mg/dL 70-110 TESTED AT [address] (test iczj=6432) [facility] [address] POCT-GLUCOSE [id number] 06:22:00 Test Item Value Reference Range Comments POC-GLUCOSE METER (BEAKER) 189 mg/dL 70-110 TESTED AT [address] (test ltlr=3696) [facility] [address] RAD, CHEST, 1 VIEW, NON [id number] 04:17:00while patient is intubated or has chest [...] findings: None. Signed: Ozzie Avila Verified Date/Time: 04/05/2019 04:17:27 [id number] 04:04:00 Test Item Value Reference Range Comments PHOSPHORUS (BEAKER) (test avfj=767) 2.1 mg/dL 2.3-4.7 [id number] 04:04:00 Test Item Value Reference Range Comments MAGNESIUM (BEAKER) (test wuhg=151) 1.8 mg/dL 1.6-2.6 BASIC METABOLIC [id number] 04:04:00 Test Item Value Reference Range Comments SODIUM (BEAKER) (test 145 meq/L 136-145 gmji=316) POTASSIUM (BEAKER) (test 4.0 meq/L 3.5-5.1 efxw=117) CHLORIDE (BEAKER) (test 113 meq/L 98-107 rnuw=287) CO2 (BEAKER) (test 25 meq/L 22-29 mfvu=769) BLOOD UREA NITROGEN 14 mg/dL 7-21 (BEAKER) (test kinh=658) CREATININE (BEAKER) (test 0.73 mg/dL 0.57-1.25 fdjy=407) GLUCOSE RANDOM (BEAKER) 171 mg/dL 70-105 (test mvrp=145) CALCIUM (BEAKER) (test 9.5 mg/dL 8.4-10.2 siyn=401) EGFR (BEAKER) (test 108 mL/min/1.73 sq m ESTIMATED GFR IS NOT eiea=2670) ACCURATE CREATININE CLEARANCE IN PREDICTING GLOMERULAR FILTRATION RATE. ESTIMATED GFR IS NOT APPLICABLE FOR DIALYSIS PATIENTS. LACTIC ACID, [id number] 04:03:00 Test Item Value Reference Range Comments LACTATE BLOOD ARTERIAL (2) (BEAKER) (test 1.0 mmol/L 0.5-2.2 zdgh=3552) CALCIUM, [id number] 03:35:00 Test Item Value Reference Range Comments CALCIUM IONIZED (BEAKER) (test lnvu=600) 1.25 mmol/L 1.12-1.27 PH, BLOOD (BEAKER) (test covp=4673) 7.49 BLOOD GAS, [id number] 03:33:00 Test Item Value Reference Range Comments PH ARTERIAL (BEAKER) (test edyu=529) 7.47 7.35-7.45 PCO2 ARTERIAL (BEAKER) (test goqo=511) 35 mmHg 35-45 PO2 ARTERIAL (BEAKER) (test udoe=219) 91 mmHg 80-90 O2 SATURATION ARTERIAL (BEAKER) (test uwhs=001) 97.1 % 96.0-97.0 HCO3 ARTERIAL (BEAKER) (test diqs=535) 25 mmol/L 21-29 BASE EXCESS ARTERIAL (BEAKER) (test ahic=095) 1.8 mmol/L -2.0-3.0 PATIENT TEMPERATURE (BEAKER) (test sndq=2441) 38.1 C FIO2 (BEAKER) (test arst=9518) 40.0 % CBC W/PLT COUNT & AUTO [id number] 03:31:00 Test Item Value Reference Range Comments WHITE BLOOD CELL COUNT (BEAKER) (test oqgp=466) 10.6 K/ L 3.5-10.5 RED BLOOD CELL COUNT (BEAKER) (test sygd=752) 4.00 M/ L 4.63-6.08 HEMOGLOBIN (BEAKER) (test rkzz=658) 12.1 GM/DL 13.7-17.5 HEMATOCRIT (BEAKER) (test yhox=959) 35.2 % 40.1-51.0 MEAN CORPUSCULAR VOLUME (BEAKER) (test nzya=047) 88.0 fL 79.0-92.2 MEAN CORPUSCULAR HEMOGLOBIN (BEAKER) (test 30.3 pg 25.7-32.2 uelj=695) MEAN CORPUSCULAR HEMOGLOBIN CONC (BEAKER) (test 34.4 GM/DL 32.3-36.5 fopc=238) RED CELL DISTRIBUTION WIDTH (BEAKER) (test 13.8 % 11.6-14.4 yxiw=729) PLATELET COUNT (BEAKER) (test wptc=508) 184 K/CU MM 150-450 MEAN PLATELET VOLUME (BEAKER) (test etxr=401) 9.4 fL 9.4-12.4 NUCLEATED RED BLOOD CELLS (BEAKER) (test 0 /100 WBC 0-0 fehl=458) NEUTROPHILS RELATIVE PERCENT (BEAKER) (test 83 % jimc=788) LYMPHOCYTES RELATIVE PERCENT (BEAKER) (test 9 % drzd=398) MONOCYTES RELATIVE PERCENT (BEAKER) (test 7 % bryf=757) EOSINOPHILS RELATIVE PERCENT (BEAKER) (test 0 % oqpa=040) BASOPHILS RELATIVE PERCENT (BEAKER) (test 0 % ngig=585) NEUTROPHILS ABSOLUTE COUNT (BEAKER) (test 8.85 K/ L 1.78-5.38 woia=907) LYMPHOCYTES ABSOLUTE COUNT (BEAKER) (test 0.92 K/ L 1.32-3.57 eazo=784) MONOCYTES ABSOLUTE COUNT (BEAKER) (test 0.78 K/ L 0.30-0.82 yvvg=850) EOSINOPHILS ABSOLUTE COUNT (BEAKER) (test 0.01 K/ L 0.04-0.54 phgu=119) BASOPHILS ABSOLUTE COUNT (BEAKER) (test 0.03 K/ L 0.01-0.08 urvg=528) IMMATURE GRANULOCYTES-RELATIVE PERCENT (BEAKER) 1 % 0-1 (test abfo=4369) [id number] 01:22:00 Test Item Value Reference Range Comments MAGNESIUM (BEAKER) (test lmse=037) 2.2 mg/dL 1.6-2.6 BASIC METABOLIC [id number] 01:22:00 Test Item Value Reference Range Comments SODIUM (BEAKER) (test 146 meq/L 136-145 xgib=395) POTASSIUM (BEAKER) (test 4.3 meq/L 3.5-5.1 vmcd=884) CHLORIDE (BEAKER) (test 113 meq/L 98-107 tqtc=036) CO2 (BEAKER) (test 24 meq/L 22-29 midd=730) BLOOD UREA NITROGEN 15 mg/dL 7-21 (BEAKER) (test wrks=365) CREATININE (BEAKER) (test 0.73 mg/dL 0.57-1.25 ltxe=180) GLUCOSE RANDOM (BEAKER) 188 mg/dL 70-105 (test xubt=190) CALCIUM (BEAKER) (test 9.9 mg/dL 8.4-10.2 bmsn=865) EGFR (BEAKER) (test 108 mL/min/1.73 sq m ESTIMATED GFR IS NOT eony=6174) ACCURATE CREATININE CLEARANCE IN PREDICTING GLOMERULAR FILTRATION RATE. ESTIMATED GFR IS NOT APPLICABLE FOR DIALYSIS PATIENTS. LACTIC ACID, [id number] 01:20:00 Test Item Value Reference Range Comments LACTATE BLOOD ARTERIAL (2) 1.1 mmol/L 0.5-2.2 Specimen slightly hemolyzed (BEAKER) (test ejdm=0067) CBC W/PLT COUNT & AUTO [id number] 01:06:00 Test Item Value Reference Range Comments WHITE BLOOD CELL COUNT (BEAKER) (test xnlu=500) 11.8 K/ L 3.5-10.5 RED BLOOD CELL COUNT (BEAKER) (test vdqb=641) 3.98 M/ L 4.63-6.08 HEMOGLOBIN (BEAKER) (test gket=790) 12.1 GM/DL 13.7-17.5 HEMATOCRIT (BEAKER) (test ybyr=527) 34.8 % 40.1-51.0 MEAN CORPUSCULAR VOLUME (BEAKER) (test cdno=940) 87.4 fL 79.0-92.2 MEAN CORPUSCULAR HEMOGLOBIN (BEAKER) (test 30.4 pg 25.7-32.2 ljov=955) MEAN CORPUSCULAR HEMOGLOBIN CONC (BEAKER) (test 34.8 GM/DL 32.3-36.5 eycn=046) RED CELL DISTRIBUTION WIDTH (BEAKER) (test 13.6 % 11.6-14.4 iqgq=277) PLATELET COUNT (BEAKER) (test hvis=077) 172 K/CU MM 150-450 MEAN PLATELET VOLUME (BEAKER) (test dpjq=181) 9.4 fL 9.4-12.4 NUCLEATED RED BLOOD CELLS (BEAKER) (test 0 /100 WBC 0-0 ciek=304) NEUTROPHILS RELATIVE PERCENT (BEAKER) (test 85 % eaxb=420) LYMPHOCYTES RELATIVE PERCENT (BEAKER) (test 7 % dgoo=825) MONOCYTES RELATIVE PERCENT (BEAKER) (test 8 % keqc=415) EOSINOPHILS RELATIVE PERCENT (BEAKER) (test 0 % qyvg=658) BASOPHILS RELATIVE PERCENT (BEAKER) (test 0 % ijze=308) NEUTROPHILS ABSOLUTE COUNT (BEAKER) (test 9.96 K/ L 1.78-5.38 drue=337) LYMPHOCYTES ABSOLUTE COUNT (BEAKER) (test 0.81 K/ L 1.32-3.57 bftd=203) MONOCYTES ABSOLUTE COUNT (BEAKER) (test 0.89 K/ L 0.30-0.82 haiu=116) EOSINOPHILS ABSOLUTE COUNT (BEAKER) (test 0.01 K/ L 0.04-0.54 uiiu=515) BASOPHILS ABSOLUTE COUNT (BEAKER) (test 0.03 K/ L 0.01-0.08 vmbi=874) IMMATURE GRANULOCYTES-RELATIVE PERCENT (BEAKER) 1 % 0-1 (test tsig=6293) BLOOD GAS, [id number] 00:53:00 Test Item Value Reference Range Comments PH ARTERIAL (BEAKER) (test ebxy=819) 7.45 7.35-7.45 PCO2 ARTERIAL (BEAKER) (test fxrz=629) 38 mmHg 35-45 PO2 ARTERIAL (BEAKER) (test undw=397) 108 mmHg 80-90 O2 SATURATION ARTERIAL (BEAKER) (test fwfk=483) 98.0 % 96.0-97.0 HCO3 ARTERIAL (BEAKER) (test ofnj=552) 26 mmol/L 21-29 BASE EXCESS ARTERIAL (BEAKER) (test knwx=008) 2.2 mmol/L -2.0-3.0 PATIENT TEMPERATURE (BEAKER) (test tqws=3484) 38.1 C FIO2 (BEAKER) (test fjfp=0011) 60.0 % CALCIUM, [id number] 00:53:00 Test Item Value Reference Range Comments CALCIUM IONIZED (BEAKER) (test nbhi=259) 1.29 mmol/L 1.12-1.27 PH, BLOOD (BEAKER) (test vyhi=4781) 7.47 POCT-GLUCOSE [id number] 23:39:00 Test Item Value Reference Range Comments POC-GLUCOSE METER (BEAKER) 192 mg/dL 70-110 TESTED AT [address] (test thbm=6564) [facility] [address] POCT-GLUCOSE [id number] 23:39:00 Test Item Value Reference Range Comments POC-GLUCOSE METER (BEAKER) 197 mg/dL 70-110 TESTED AT [address] (test nvev=8791) [facility] [address] POCT-GLUCOSE [id number] 23:39:00 Test Item Value Reference Range Comments POC-GLUCOSE METER (BEAKER) 185 mg/dL 70-110 TESTED AT [address] (test rrcw=6185) [facility] [address] BLOOD GAS, [id number] 20:52:00 Test Item Value Reference Range Comments PH ARTERIAL (BEAKER) (test ymmv=695) 7.46 7.35-7.45 PCO2 ARTERIAL (BEAKER) (test tzhf=907) 38 mmHg 35-45 PO2 ARTERIAL (BEAKER) (test vgwr=718) 233 mmHg 80-90 O2 SATURATION ARTERIAL (BEAKER) (test ybsa=658) 99.6 % 96.0-97.0 HCO3 ARTERIAL (BEAKER) (test kuop=371) 26 mmol/L 21-29 BASE EXCESS ARTERIAL (BEAKER) (test dbjr=255) 2.1 mmol/L -2.0-3.0 PATIENT TEMPERATURE (BEAKER) (test lpjp=3533) 37.1 C FIO2 (BEAKER) (test bkah=5666) 80.0 % THROMBOELASTOGRAPH (TEG)2019-04-04 20:05:00 Test Item Value Reference Range Comments TEG ACTIVATED CLOTTING TIME (BEAKER) (test 6.6 minutes 4.0-7.0 vjqi=6145) TEG FIBRINOGEN ACTIVITY (BEAKER) (test 69.0 degrees 61.0-73.0 nnke=8576) TEG PLT. AGGREGATION (BEAKER) (test njtx=2341) 65.0 MM 55.0-65.0 TEG FIBRINOLYSIS (BEAKER) (test kgze=2122) 0.0 % 0.0-5.0 TGH ACTIVATED CLOTTING TIME (BEAKER) (test 7.0 minutes 4.0-7.0 ijsk=0904) TGH FIBRINOGEN ACTIVITY (BEAKER) (test 65.7 degrees 61.0-73.0 jlrs=1370) TGH PLT. AGGREGATION (BEAKER) (test ziry=8310) 63.2 MM 55.0-65.0 TGH FIBRINOLYSIS (BEAKER) (test wyet=2847) 0.0 % 0.0-5.0 RAD, CHEST, 1 VIEW, NON [id number] 19:07:00Reason for exam:->Status post CV Surgery post [...] MDReport Verified Date/Time: 04/04/2019 19:07:57 Reading Location: [facility] Radiology Reading Room BASI METABOLIC [id number] 18: 47:00 Test Item Value Reference Range Comments SODIUM (BEAKER) (test 149 meq/L 136-145 vhgw=060) POTASSIUM (BEAKER) (test 3.8 meq/L 3.5-5.1 Specimen slightly jdyk=882) hemolyzed CHLORIDE (BEAKER) (test 112 meq/L 98-107 leqw=589) CO2 (BEAKER) (test 25 meq/L 22-29 brsx=350) BLOOD UREA NITROGEN 16 mg/dL 7-21 (BEAKER) (test hxvg=456) CREATININE (BEAKER) (test 0.67 mg/dL 0.57-1.25 Specimen slightly jdua=991) hemolyzed GLUCOSE RANDOM (BEAKER) 236 mg/dL 70-105 (test sjak=602) CALCIUM (BEAKER) (test 11.1 mg/dL 8.4-10.2 rsbn=737) EGFR (BEAKER) (test 119 mL/min/1.73 sq m ESTIMATED GFR IS NOT xduh=3282) ACCURATE CREATININE CLEARANCE IN PREDICTING GLOMERULAR FILTRATION RATE. ESTIMATED GFR IS NOT APPLICABLE FOR DIALYSIS PATIENTS. [id number] 18:46:00 Test Item Value Reference Range Comments MAGNESIUM (BEAKER) (test 1.9 mg/dL 1.6-2.6 Specimen slightly hemolyzed ducd=072) [id number] 18:46:00 Test Item Value Reference Range Comments PHOSPHORUS (BEAKER) (test 4.2 mg/dL 2.3-4.7 Specimen slightly hemolyzed vrpy=432) LACTIC ACID, [id number] 18:43:00 Test Item Value Reference Range Comments LACTATE BLOOD ARTERIAL (2) 2.0 mmol/L 0.5-2.2 Specimen slightly hemolyzed (BEAKER) (test lfuw=3114) [id number] 18:36:00 Test Item Value Reference Range Comments FIBRINOGEN LEVEL (BEAKER) (test iuer=529) 329 mg/dl 225-434 [id number] 18:36:00 Test Item Value Reference Range Comments PARTIAL THROMBOPLASTIN TIME (BEAKER) (test 35.0 seconds 22.5-36.0 cuxz=391) PROTHROMBIN [id number] 18:35:00 Test Item Value Reference Range Comments PROTIME (BEAKER) (test ilxj=072) 16.7 seconds 11.9-14.2 INR (BEAKER) (test kjmn=281) 1.4 <=5.9 Effective 03/27/2019: PT Reference Range ChangeNew: 11.9-14.2 Previous: 11.7- 14.7RECOMMENDED COUMADIN/WARFARIN INR THERAPY RANGESSTANDARD DOSE: 2.0-3.0 Includes: PROPHYLAXIS for venous thrombosis, systemic embolization; TREATMENT for venous thrombosis and/or pulmonary embolus.HIGH RISK: Target INR is2.5-3.5 for patients wiht mechanical heart valves.CBC W/PLT COUNT & AUTO [id number] 18:27:00 Test Item Value Reference Range Comments WHITE BLOOD CELL COUNT (BEAKER) (test eith=242) 10.4 K/ L 3.5-10.5 RED BLOOD CELL COUNT (BEAKER) (test kbho=370) 4.17 M/ L 4.63-6.08 HEMOGLOBIN (BEAKER) (test qcay=702) 12.7 GM/DL 13.7-17.5 HEMATOCRIT (BEAKER) (test tqyv=738) 37.4 % 40.1-51.0 MEAN CORPUSCULAR VOLUME (BEAKER) (test yltt=653) 89.7 fL 79.0-92.2 MEAN CORPUSCULAR HEMOGLOBIN (BEAKER) (test 30.5 pg 25.7-32.2 kzor=054) MEAN CORPUSCULAR HEMOGLOBIN CONC (BEAKER) (test 34.0 GM/DL 32.3-36.5 brtw=166) RED CELL DISTRIBUTION WIDTH (BEAKER) (test 13.2 % 11.6-14.4 zhpw=463) PLATELET COUNT (BEAKER) (test neuw=447) 139 K/CU MM 150-450 MEAN PLATELET VOLUME (BEAKER) (test jzuh=450) 9.0 fL 9.4-12.4 NUCLEATED RED BLOOD CELLS (BEAKER) (test 0 /100 WBC 0-0 xylc=678) NEUTROPHILS RELATIVE PERCENT (BEAKER) (test 81 % agwz=631) LYMPHOCYTES RELATIVE PERCENT (BEAKER) (test 13 % qxfm=259) MONOCYTES RELATIVE PERCENT (BEAKER) (test 5 % ownb=449) EOSINOPHILS RELATIVE PERCENT (BEAKER) (test 0 % mhop=467) BASOPHILS RELATIVE PERCENT (BEAKER) (test 0 % ngkt=403) NEUTROPHILS ABSOLUTE COUNT (BEAKER) (test 8.37 K/ L 1.78-5.38 nprg=829) LYMPHOCYTES ABSOLUTE COUNT (BEAKER) (test 1.39 K/ L 1.32-3.57 aixg=474) MONOCYTES ABSOLUTE COUNT (BEAKER) (test 0.49 K/ L 0.30-0.82 gbbm=769) EOSINOPHILS ABSOLUTE COUNT (BEAKER) (test 0.04 K/ L 0.04-0.54 xjoi=101) BASOPHILS ABSOLUTE COUNT (BEAKER) (test 0.02 K/ L 0.01-0.08 mxos=374) IMMATURE GRANULOCYTES-RELATIVE PERCENT (BEAKER) 1 % 0-1 (test qoch=7656) BLOOD GAS, [id number] 18:24:00 Test Item Value Reference Range Comments PH ARTERIAL (BEAKER) (test rmdm=013) 7.37 7.35-7.45 PCO2 ARTERIAL (BEAKER) (test iadf=090) 44 mmHg 35-45 PO2 ARTERIAL (BEAKER) (test wuga=750) 81 mmHg 80-90 O2 SATURATION ARTERIAL (BEAKER) (test zsxq=428) 96.1 % 96.0-97.0 HCO3 ARTERIAL (BEAKER) (test xpxo=129) 25 mmol/L 21-29 BASE EXCESS ARTERIAL (BEAKER) (test dyoj=699) -0.8 mmol/L -2.0-3.0 PATIENT TEMPERATURE (BEAKER) (test ufko=7532) 36.2 C FIO2 (BEAKER) (test yedw=2725) 60.0 % SODIUM NA-STAT [id number] 18:24:00 Test Item Value Reference Range Comments SODIUM (BEAKER) (test cktx=614) 147 meq/L 135-148 POTASSIUM-STAT [id number] 18:24:00 Test Item Value Reference Range Comments POTASSIUM (BEAKER) (test ntrk=950) 3.6 meq/L 3.6-5.5 GLUCOSE-STAT [id number] 18:24:00 Test Item Value Reference Range Comments GLUCOSE RANDOM (BEAKER) (test ppsx=367) 230 mg/dL 70-110 HGB/HCT (H&H) - STAT [id number] 18:24:00 Test Item Value Reference Range Comments HEMOGLOBIN (BEAKER) (test qvba=074) 13.0 g/dL 13.0-16.8 HEMATOCRIT (BEAKER) (test ywqn=895) 38.0 % 40.0-50.0 OXYGEN SATURATION, [id number] 18:24:00 Test Item Value Reference Range Comments O2 SATURATION (MEASURED) (BEAKER) (test wden=3328) 74.9 % CALCIUM, [id number] 18:23:00 Test Item Value Reference Range Comments CALCIUM IONIZED (BEAKER) (test auyr=711) 1.44 mmol/L 1.12-1.27 PH, BLOOD (BEAKER) (test ytzp=0357) 7.36 THROMBOELASTOGRAPH (TEG)2019-04-04 17:53:00 Test Item Value Reference Range Comments TEG ACTIVATED CLOTTING TIME (BEAKER) (test 9.2 minutes 4.0-7.0 hsya=4815) TEG FIBRINOGEN ACTIVITY (BEAKER) (test 57.5 degrees 61.0-73.0 illn=6165) TEG PLT. AGGREGATION (BEAKER) (test xdhj=8372) 37.3 MM 55.0-65.0 TGH ACTIVATED CLOTTING TIME (BEAKER) (test 9.3 minutes 4.0-7.0 usxr=2422) TGH FIBRINOGEN ACTIVITY (BEAKER) (test 52.7 degrees 61.0-73.0 pfhm=9854) TGH PLT. AGGREGATION (BEAKER) (test ppmj=2211) 35.8 MM 55.0-65.0 CALCIUM, [id number] 17:28:00 Test Item Value Reference Range Comments CALCIUM IONIZED (BEAKER) (test vjqr=449) 1.23 mmol/L 1.12-1.27 PH, BLOOD (BEAKER) (test pahb=9629) 7.30 BLOOD GAS, [id number] 17:28:00 Test Item Value Reference Range Comments PH ARTERIAL (BEAKER) (test kojy=931) 7.31 7.35-7.45 PCO2 ARTERIAL (BEAKER) (test ycjq=586) 47 mmHg 35-45 PO2 ARTERIAL (BEAKER) (test bohl=000) 72 mmHg 80-90 O2 SATURATION ARTERIAL (BEAKER) (test mgov=013) 93.8 % 96.0-97.0 HCO3 ARTERIAL (BEAKER) (test lqdw=252) 23 mmol/L 21-29 BASE EXCESS ARTERIAL (BEAKER) (test pfqe=998) -3.5 mmol/L -2.0-3.0 PATIENT TEMPERATURE (BEAKER) (test usnm=6242) 36.0 C FIO2 (BEAKER) (test hdtj=7094) 100.0 % GLUCOSE-STAT [id number] 17:28:00 Test Item Value Reference Range Comments GLUCOSE RANDOM (BEAKER) (test kdrp=341) 243 mg/dL 70-110 HGB/HCT (H&H) - STAT [id number] 17:28:00 Test Item Value Reference Range Comments HEMOGLOBIN (BEAKER) (test slwk=359) 12.6 g/dL 13.0-16.8 HEMATOCRIT (BEAKER) (test anpv=978) 37.0 % 40.0-50.0 SODIUM NA-STAT [id number] 17:27:00 Test Item Value Reference Range Comments SODIUM (BEAKER) (test pjoc=087) 143 meq/L 135-148 POTASSIUM-STAT [id number] 17:27:00 Test Item Value Reference Range Comments POTASSIUM (BEAKER) (test tsnq=607) 3.5 meq/L 3.6-5.5 [id number] 17:12:00 Test Item Value Reference Range Comments FIBRINOGEN LEVEL (BEAKER) (test ozpi=146) 117 mg/dl 225-434 [id number] 17:05:00 Test Item Value Reference Range Comments ACTIVATED CLOTTING TIME 444 sec TESTED AT [address] (BEAKER) (test apvb=940) [place] [address] [id number] 17:05:00 Test Item Value Reference Range Comments ACTIVATED CLOTTING TIME 406 sec TESTED AT [place] [address] [facility] (BEAKER) (test aelg=795) [place] [address] [id number] 17:05:00 Test Item Value Reference Range Comments ACTIVATED CLOTTING TIME 411 sec TESTED AT [place] [address] [facility] (BEAKER) (test obun=016) [place] [address] [id number] 17:05:00 Test Item Value Reference Range Comments ACTIVATED CLOTTING TIME 351 sec TESTED AT [place] [address] [facility] (BEAKER) (test mipa=741) [place] [address] [id number] 17:05:00 Test Item Value Reference Range Comments ACTIVATED CLOTTING TIME 626 sec TESTED AT [place] [address] [facility] (BEAKER) (test hosn=796) [place] [address] [id number] 17:02:00 Test Item Value Reference Range Comments PARTIAL THROMBOPLASTIN TIME (BEAKER) (test 40.8 seconds 22.5-36.0 jekz=398) PROTHROMBIN [id number] 17:01:00 Test Item Value Reference Range Comments PROTIME (BEAKER) (test owgv=426) 31.7 seconds 11.9-14.2 INR (BEAKER) (test wunt=611) 3.3 <=5.9 Effective 03/27/2019: PT Reference Range ChangeNew: 11.9-14.2 Previous: 11.7- 14.7RECOMMENDED COUMADIN/WARFARIN INR THERAPY RANGESSTANDARD DOSE: 2.0-3.0 Includes: PROPHYLAXIS for venous thrombosis, systemic embolization; TREATMENT for venous thrombosis and/or pulmonary embolus.HIGH RISK: Target INR is2.5-3.5 for patients wiht mechanical heart valves.PLATELET [id number] 16:49:00 Test Item Value Reference Range Comments PLATELET COUNT (BEAKER) (test einh=764) 52 K/CU MM 150-450 CALCIUM, [id number] 16:44:00 Test Item Value Reference Range Comments CALCIUM IONIZED (BEAKER) (test gpuc=730) 1.08 mmol/L 1.12-1.27 PH, BLOOD (BEAKER) (test ihin=0040) 7.33 BLOOD GAS, [id number] 16:44:00 Test Item Value Reference Range Comments PH ARTERIAL (BEAKER) (test egnh=906) 7.34 7.35-7.45 PCO2 ARTERIAL (BEAKER) (test batg=072) 40 mmHg 35-45 PO2 ARTERIAL (BEAKER) (test lemr=348) 132 mmHg 80-90 O2 SATURATION ARTERIAL (BEAKER) (test jywf=461) 98.6 % 96.0-97.0 HCO3 ARTERIAL (BEAKER) (test cdnb=841) 21 mmol/L 21-29 BASE EXCESS ARTERIAL (BEAKER) (test tnwr=999) -4.3 mmol/L -2.0-3.0 PATIENT TEMPERATURE (BEAKER) (test oinx=8986) 36.0 C FIO2 (BEAKER) (test nwij=7285) 100.0 % GLUCOSE-STAT [id number] 16:44:00 Test Item Value Reference Range Comments GLUCOSE RANDOM (BEAKER) (test hmzn=941) 277 mg/dL 70-110 HGB/HCT (H&H) - STAT [id number] 16:44:00 Test Item Value Reference Range Comments HEMOGLOBIN (BEAKER) (test wopu=307) 11.3 g/dL 13.0-16.8 HEMATOCRIT (BEAKER) (test bhrp=133) 33.0 % 40.0-50.0 SODIUM NA-STAT [id number] 16:43:00 Test Item Value Reference Range Comments SODIUM (BEAKER) (test unla=648) 141 meq/L 135-148 POTASSIUM-STAT [id number] 16:43:00 Test Item Value Reference Range Comments POTASSIUM (BEAKER) (test sekd=541) 3.6 meq/L 3.6-5.5 BLOOD GAS, [id number] 16:23:00 Test Item Value Reference Range Comments PH ARTERIAL (BEAKER) (test sshu=203) 7.35 7.35-7.45 PCO2 ARTERIAL (BEAKER) (test dwas=594) 54 mmHg 35-45 PO2 ARTERIAL (BEAKER) (test cljj=226) 206 mmHg 80-90 O2 SATURATION ARTERIAL (BEAKER) (test uxou=044) 99.4 % 96.0-97.0 HCO3 ARTERIAL (BEAKER) (test iyvz=617) 30 mmol/L 21-29 BASE EXCESS ARTERIAL (BEAKER) (test pnxf=840) 2.9 mmol/L -2.0-3.0 PATIENT TEMPERATURE (BEAKER) (test hbdf=3949) 34.0 C FIO2 (BEAKER) (test yyiv=2738) 100.0 % SODIUM NA-STAT [id number] 16:23:00 Test Item Value Reference Range Comments SODIUM (BEAKER) (test umnt=894) 146 meq/L 135-148 GLUCOSE-STAT [id number] 16:23:00 Test Item Value Reference Range Comments GLUCOSE RANDOM (BEAKER) (test xfbx=297) 281 mg/dL 70-110 HGB/HCT (H&H) - STAT [id number] 16:23:00 Test Item Value Reference Range Comments HEMOGLOBIN (BEAKER) (test jjut=192) 9.9 g/dL 13.0-16.8 HEMATOCRIT (BEAKER) (test mtmg=369) 29.0 % 40.0-50.0 POTASSIUM-STAT [id number] 16:22:00 Test Item Value Reference Range Comments POTASSIUM (BEAKER) (test ucfy=553) 4.2 meq/L 3.6-5.5 CALCIUM, [id number] 16:22:00 Test Item Value Reference Range Comments CALCIUM IONIZED (BEAKER) (test eonc=576) 1.16 mmol/L 1.12-1.27 PH, BLOOD (BEAKER) (test fpme=2051) 7.31 BLOOD GAS, [id number] 16:13:00 Test Item Value Reference Range Comments PH ARTERIAL (BEAKER) (test mjzj=876) 7.16 7.35-7.45 PCO2 ARTERIAL (BEAKER) (test msmh=807) 41 mmHg 35-45 PO2 ARTERIAL (BEAKER) (test uzsc=812) 114 mmHg 80-90 O2 SATURATION ARTERIAL (BEAKER) (test usuk=090) 97.2 % 96.0-97.0 HCO3 ARTERIAL (BEAKER) (test fpli=206) 15 mmol/L 21-29 BASE EXCESS ARTERIAL (BEAKER) (test udgh=028) -13.3 mmol/L -2.0-3.0 PATIENT TEMPERATURE (BEAKER) (test kboy=2535) 35.8 C FIO2 (BEAKER) (test sdzw=3818) 100.0 % CALCIUM, [id number] 16:13:00 Test Item Value Reference Range Comments CALCIUM IONIZED (BEAKER) (test xnff=069) 1.11 mmol/L 1.12-1.27 PH, BLOOD (BEAKER) (test fgyd=1446) 7.14 GLUCOSE-STAT [id number] 16:13:00 Test Item Value Reference Range Comments GLUCOSE RANDOM (BEAKER) (test vtzn=854) 268 mg/dL 70-110 HGB/HCT (H&H) - STAT [id number] 16:13:00 Test Item Value Reference Range Comments HEMOGLOBIN (BEAKER) (test zcka=764) 6.8 g/dL 13.0-16.8 HEMATOCRIT (BEAKER) (test lwfo=050) 20.0 % 40.0-50.0 SODIUM NA-STAT [id number] 16:12:00 Test Item Value Reference Range Comments SODIUM (BEAKER) (test ixaw=943) 137 meq/L 135-148 POTASSIUM-STAT [id number] 16:12:00 Test Item Value Reference Range Comments POTASSIUM (BEAKER) (test jvoj=463) 4.6 meq/L 3.6-5.5 BLOOD GAS, [id number] 15:44:00 Test Item Value Reference Range Comments PH ARTERIAL (BEAKER) (test cmdt=723) 7.31 7.35-7.45 PCO2 ARTERIAL (BEAKER) (test wjjh=438) 43 mmHg 35-45 PO2 ARTERIAL (BEAKER) (test wofw=173) 416 mmHg 80-90 O2 SATURATION ARTERIAL (BEAKER) (test pndr=421) 99.8 % 96.0-97.0 HCO3 ARTERIAL (BEAKER) (test lpfu=330) 22 mmol/L 21-29 BASE EXCESS ARTERIAL (BEAKER) (test nzow=050) -4.7 mmol/L -2.0-3.0 PATIENT TEMPERATURE (BEAKER) (test qaze=2850) 34.6 C FIO2 (BEAKER) (test nhtu=2442) 90.0 % GLUCOSE-STAT [id number] 15:44:00 Test Item Value Reference Range Comments GLUCOSE RANDOM (BEAKER) (test vqat=428) 255 mg/dL 70-110 HGB/HCT (H&H) - STAT [id number] 15:44:00 Test Item Value Reference Range Comments HEMOGLOBIN (BEAKER) (test dpod=703) 9.0 g/dL 13.0-16.8 HEMATOCRIT (BEAKER) (test zxyc=648) 26.0 % 40.0-50.0 SODIUM NA-STAT [id number] 15:43:00 Test Item Value Reference Range Comments SODIUM (BEAKER) (test temr=399) 135 meq/L 135-148 POTASSIUM-STAT [id number] 15:43:00 Test Item Value Reference Range Comments POTASSIUM (BEAKER) (test mgbw=651) 4.9 meq/L 3.6-5.5 BLOOD GAS, [id number] 14:59:00 Test Item Value Reference Range Comments PH ARTERIAL (BEAKER) (test bcjj=195) 7.38 7.35-7.45 PCO2 ARTERIAL (BEAKER) (test cvyq=894) 40 mmHg 35-45 PO2 ARTERIAL (BEAKER) (test ppth=432) 294 mmHg 80-90 O2 SATURATION ARTERIAL (BEAKER) (test gspa=497) 99.7 % 96.0-97.0 HCO3 ARTERIAL (BEAKER) (test raea=299) 24 mmol/L 21-29 BASE EXCESS ARTERIAL (BEAKER) (test lcou=029) -1.7 mmol/L -2.0-3.0 PATIENT TEMPERATURE (BEAKER) (test vmhr=3257) 35.1 C FIO2 (BEAKER) (test nkrq=1270) 75.0 % SODIUM NA-STAT [id number] 14:59:00 Test Item Value Reference Range Comments SODIUM (BEAKER) (test ahxr=359) 133 meq/L 135-148 GLUCOSE-STAT [id number] 14:59:00 Test Item Value Reference Range Comments GLUCOSE RANDOM (BEAKER) (test ital=812) 249 mg/dL 70-110 HGB/HCT (H&H) - STAT [id number] 14:59:00 Test Item Value Reference Range Comments HEMOGLOBIN (BEAKER) (test fdgr=307) 7.9 g/dL 13.0-16.8 HEMATOCRIT (BEAKER) (test sjhu=094) 23.0 % 40.0-50.0 POTASSIUM-STAT [id number] 14:58:00 Test Item Value Reference Range Comments POTASSIUM (BEAKER) (test nsib=984) 4.6 meq/L 3.6-5.5 POTASSIUM-STAT [id number] 14:28:00 Test Item Value Reference Range Comments POTASSIUM (BEAKER) (test waeb=917) 3.9 meq/L 3.6-5.5 BLOOD GAS, [id number] 14:28:00 Test Item Value Reference Range Comments PH ARTERIAL (BEAKER) (test nglz=576) 7.36 7.35-7.45 PCO2 ARTERIAL (BEAKER) (test wknm=573) 33 mmHg 35-45 PO2 ARTERIAL (BEAKER) (test rhga=785) 323 mmHg 80-90 O2 SATURATION ARTERIAL (BEAKER) (test uwhv=005) 99.7 % 96.0-97.0 HCO3 ARTERIAL (BEAKER) (test uhou=476) 20 mmol/L 21-29 BASE EXCESS ARTERIAL (BEAKER) (test jmyc=687) -7.0 mmol/L -2.0-3.0 PATIENT TEMPERATURE (BEAKER) (test mixr=3078) 27.5 C FIO2 (BEAKER) (test oedi=5127) 60.0 % SODIUM NA-STAT [id number] 14:28:00 Test Item Value Reference Range Comments SODIUM (BEAKER) (test irlu=137) 132 meq/L 135-148 GLUCOSE-STAT [id number] 14:28:00 Test Item Value Reference Range Comments GLUCOSE RANDOM (BEAKER) (test plyn=129) 257 mg/dL 70-110 HGB/HCT (H&H) - STAT [id number] 14:28:00 Test Item Value Reference Range Comments HEMOGLOBIN (BEAKER) (test xshr=673) 8.6 g/dL 13.0-16.8 HEMATOCRIT (BEAKER) (test jlkf=452) 25.0 % 40.0-50.0 BLOOD GAS, [id number] 13:17:00 Test Item Value Reference Range Comments PH ARTERIAL (BEAKER) (test orgd=247) 7.34 7.35-7.45 PCO2 ARTERIAL (BEAKER) (test btug=745) 41 mmHg 35-45 PO2 ARTERIAL (BEAKER) (test pdlh=758) 231 mmHg 80-90 O2 SATURATION ARTERIAL (BEAKER) (test zmxz=651) 99.5 % 96.0-97.0 HCO3 ARTERIAL (BEAKER) (test eafj=212) 21 mmol/L 21-29 BASE EXCESS ARTERIAL (BEAKER) (test xeae=444) -4.5 mmol/L -2.0-3.0 PATIENT TEMPERATURE (BEAKER) (test bxqh=8832) 36.0 C FIO2 (BEAKER) (test wpnj=1289) 100.0 % SODIUM NA-STAT [id number] 13:17:00 Test Item Value Reference Range Comments SODIUM (BEAKER) (test ddse=963) 132 meq/L 135-148 GLUCOSE-STAT [id number] 13:17:00 Test Item Value Reference Range Comments GLUCOSE RANDOM (BEAKER) (test iycv=672) 139 mg/dL 70-110 CALCIUM, [id number] 13:14:00 Test Item Value Reference Range Comments CALCIUM IONIZED (BEAKER) (test esju=063) 1.12 mmol/L 1.12-1.27 PH, BLOOD (BEAKER) (test adpr=1425) 7.32 POTASSIUM-STAT [id number] 13:13:00 Test Item Value Reference Range Comments POTASSIUM (BEAKER) (test fkce=261) 3.9 meq/L 3.6-5.5 HGB/HCT (H&H) - STAT [id number] 13:13:00 Test Item Value Reference Range Comments HEMOGLOBIN (BEAKER) (test ewch=289) 14.7 g/dL 13.0-16.8 HEMATOCRIT (BEAKER) (test sqgh=951) 43.0 % 40.0-50.0 BASIC METABOLIC [id number] 06:01:00 Test Item Value Reference Range Comments SODIUM (BEAKER) (test 138 meq/L 136-145 kqdk=159) POTASSIUM (BEAKER) (test 4.0 meq/L 3.5-5.1 Specimen slightly gwyc=459) hemolyzed CHLORIDE (BEAKER) (test 104 meq/L 98-107 qawr=692) CO2 (BEAKER) (test 22 meq/L 22-29 uuhk=908) BLOOD UREA NITROGEN 15 mg/dL 7-21 (BEAKER) (test cxum=458) CREATININE (BEAKER) (test 0.70 mg/dL 0.57-1.25 Specimen slightly feza=664) hemolyzed GLUCOSE RANDOM (BEAKER) 127 mg/dL 70-105 (test ccbw=837) CALCIUM (BEAKER) (test 9.6 mg/dL 8.4-10.2 vbmb=807) EGFR (BEAKER) (test 113 mL/min/1.73 sq m ESTIMATED GFR IS NOT dwhi=0310) ACCURATE CREATININE CLEARANCE IN PREDICTING GLOMERULAR FILTRATION RATE. ESTIMATED GFR IS NOT APPLICABLE FOR DIALYSIS PATIENTS. POCT-GLUCOSE [id number] 22:20:00 Test Item Value Reference Range Comments POC-GLUCOSE METER (BEAKER) 164 mg/dL 70-110 TESTED AT [facility] [address] (test yckz=5626) [place] [address] PROTHROMBIN [id number] 22:15:00 Test Item Value Reference Range Comments PROTIME (BEAKER) (test lzhx=059) 13.8 seconds 11.9-14.2 INR (BEAKER) (test vbis=038) 1.1 <=5.9 Effective 03/27/2019: PT Reference Range ChangeNew: 11.9-14.2 Previous: 11.7- 14.7RECOMMENDED COUMADIN/WARFARIN INR THERAPY RANGESSTANDARD DOSE: 2.0-3.0 Includes: PROPHYLAXIS for venous thrombosis, systemic embolization; TREATMENT for venous thrombosis and/or pulmonary embolus.HIGH RISK: Target INR is2.5-3.5 for patients wiht mechanical heart valves.[id number] 22:15:00 Test Item Value Reference Range Comments PARTIAL THROMBOPLASTIN TIME (BEAKER) (test 33.3 seconds 22.5-36.0 snbc=284) BASIC METABOLIC [id number] 21:43:00 Test Item Value Reference Range Comments SODIUM (BEAKER) (test 135 meq/L 136-145 wkki=747) POTASSIUM (BEAKER) (test 5.1 meq/L 3.5-5.1 Specimen moderately sqqv=537) hemolyzed CHLORIDE (BEAKER) (test 104 meq/L 98-107 iefy=368) CO2 (BEAKER) (test 22 meq/L 22-29 oynu=950) BLOOD UREA NITROGEN 17 mg/dL 7-21 (BEAKER) (test ckmf=362) CREATININE (BEAKER) (test 0.72 mg/dL 0.57-1.25 Specimen moderately jped=604) hemolyzed GLUCOSE RANDOM (BEAKER) 161 mg/dL 70-105 (test kiwn=157) CALCIUM (BEAKER) (test 9.4 mg/dL 8.4-10.2 woku=429) EGFR (BEAKER) (test 110 mL/min/1.73 sq m ESTIMATED GFR IS NOT vtpe=6964) ACCURATE CREATININE CLEARANCE IN PREDICTING GLOMERULAR FILTRATION RATE. ESTIMATED GFR IS NOT APPLICABLE FOR DIALYSIS PATIENTS. CBC W/PLT COUNT & AUTO [id number] 21:14:00 Test Item Value Reference Range Comments WHITE BLOOD CELL COUNT (BEAKER) (test gygw=618) 10.3 K/ L 3.5-10.5 RED BLOOD CELL COUNT (BEAKER) (test ihix=029) 4.96 M/ L 4.63-6.08 HEMOGLOBIN (BEAKER) (test ddsr=160) 15.2 GM/DL 13.7-17.5 HEMATOCRIT (BEAKER) (test jwve=779) 44.3 % 40.1-51.0 MEAN CORPUSCULAR VOLUME (BEAKER) (test cdce=510) 89.3 fL 79.0-92.2 MEAN CORPUSCULAR HEMOGLOBIN (BEAKER) (test 30.6 pg 25.7-32.2 mqqx=678) MEAN CORPUSCULAR HEMOGLOBIN CONC (BEAKER) (test 34.3 GM/DL 32.3-36.5 odhj=927) RED CELL DISTRIBUTION WIDTH (BEAKER) (test 12.8 % 11.6-14.4 urtt=637) PLATELET COUNT (BEAKER) (test zshz=300) 262 K/CU MM 150-450 MEAN PLATELET VOLUME (BEAKER) (test cykt=195) 9.3 fL 9.4-12.4 NUCLEATED RED BLOOD CELLS (BEAKER) (test 0 /100 WBC 0-0 anyj=600) NEUTROPHILS RELATIVE PERCENT (BEAKER) (test 73 % awsq=678) LYMPHOCYTES RELATIVE PERCENT (BEAKER) (test 19 % visz=121) MONOCYTES RELATIVE PERCENT (BEAKER) (test 7 % tmnb=762) EOSINOPHILS RELATIVE PERCENT (BEAKER) (test 1 % yxpn=952) BASOPHILS RELATIVE PERCENT (BEAKER) (test 0 % fdrx=626) NEUTROPHILS ABSOLUTE COUNT (BEAKER) (test 7.53 K/ L 1.78-5.38 qtqu=036) LYMPHOCYTES ABSOLUTE COUNT (BEAKER) (test 1.94 K/ L 1.32-3.57 vdpg=663) MONOCYTES ABSOLUTE COUNT (BEAKER) (test 0.69 K/ L 0.30-0.82 qbdd=613) EOSINOPHILS ABSOLUTE COUNT (BEAKER) (test 0.12 K/ L 0.04-0.54 ljlp=810) BASOPHILS ABSOLUTE COUNT (BEAKER) (test 0.03 K/ L 0.01-0.08 kfqv=895) IMMATURE GRANULOCYTES-RELATIVE PERCENT (BEAKER) 0 % 0-1 (test edqo=5720) BLOOD [id number] 05:01:00 Test Item Value Reference Range Comments CULTURE (BEAKER) (test yhyi=7198) No growth in 5 days BLOOD [id number] 05:01:00 Test Item Value Reference Range Comments CULTURE (BEAKER) (test wajb=7178) No growth in 5 days URINE [id number] 17:30:00 Test Item Value Reference Range Comments CULTURE (BEAKER) (test nrnh=1939) No growth POCT-GLUCOSE [id number] 12:44:00 Test Item Value Reference Range Comments POC-GLUCOSE METER (BEAKER) 243 mg/dL 70-110 TESTED AT [address] (test rpmh=4621) [place] [id number] VANCOMYCIN LEVEL, [id number] 09:18:00 Test Item Value Reference Range Comments VANCOMYCIN TROUGH (BEAKER) (test jzcu=316) 12.8 ug/mL 10.0-20.0 Please draw vancomycin trough level. If level greater than 20 mcg/mL, please hold 900 dose.POCT-GLUCOSE [id number] 08:07:00 Test Item Value Reference Range Comments POC-GLUCOSE METER (BEAKER) 225 mg/dL 70-110 TESTED AT [address] (test fslt=9939) [place] [id number] POCT-GLUCOSE [id number] 21:42:00 Test Item Value Reference Range Comments POC-GLUCOSE METER (BEAKER) 304 mg/dL 70-110 TESTED AT [address] (test mqfr=7813) [place] [id number] POCT-GLUCOSE [id number] 18:30:00 Test Item Value Reference Range Comments POC-GLUCOSE METER (BEAKER) 259 mg/dL 70-110 TESTED AT [address] (test kpuf=7860) [place] [id number] POCT-GLUCOSE [id number] 14:03:00 Test Item Value Reference Range Comments POC-GLUCOSE METER (BEAKER) 297 mg/dL 70-110 TESTED AT [address] (test mlil=9412) [place] [id number] RESPIRATORY PANEL [id number] 12:24:00 Test Item Value Reference Range Comments HUMAN METAPNEUMOVIRUS (BEAKER) (test Not detected Not detected, Equivocal wwvj=4962) RHINOVIRUS (BEAKER) (test gepw=1095) Not detected Not detected, Equivocal INFLUENZA A (BEAKER) (test xdxl=8233) Not detected Not detected, Equivocal INFLUENZA A (NO SUBTYPE) (test Not detected, Equivocal dntf=7381) INFLUENZA A SUBTYPE H1 (BEAKER) (test Not detected, Equivocal dasj=0425) INFLUENZA A SUBTYPE H3 (BEAKER) (test Not detected, Equivocal etoo=0714) INFLUENZA A SUBTYPE H1-2009 (BEAKER) Not detected, Equivocal (test ktml=9933) INFLUENZA B (BEAKER) (test prmo=4218) Not detected Not detected, Equivocal RESPIRATORY SYNCYTIAL VIRUS (BEAKER) Not detected Not detected, Equivocal (test mdzw=2235) PARAINFLUENZA VIRUS 1 (BEAKER) (test Not detected Not detected, Equivocal qyhz=0371) PARAINFLUENZA VIRUS 2 (BEAKER) (test Not detected Not detected, Equivocal weot=2037) PARAINFLUENZA VIRUS 3 (BEAKER) (test Not detected Not detected, Equivocal pkev=9539) PARAINFLUENZA VIRUS 4 (BEAKER) (test Not detected Not detected, Equivocal ecig=5556) ADENOVIRUS (BEAKER) (test oiqv=4490) Not detected Not detected, Equivocal CORONAVIRUS 229E (BEAKER) (test Not detected Not detected, Equivocal ipru=4502) CORONAVIRUS HKU1 (BEAKER) (test Not detected Not detected, Equivocal qvqa=3166) CORONAVIRUS NL63 (BEAKER) (test Not detected Not detected, Equivocal iriv=4115) CORONAVIRUS OC43 (BEAKER) (test Not detected Not detected, Equivocal tuus=4311) BORDETELLA PERTUSSIS (BEAKER) (test Not detected Not detected, Equivocal mcbe=0166) CHLAMYDOPHILA PNEUMONIAE (BEAKER) (test Not detected Not detected, Equivocal dcxw=7526) MYCOPLASMA PNEUMONIAE (BEAKER) (test Not detected Not detected, Equivocal kqrq=3910) Other viruses and bacteria not targeted by this PCR panel cannot be excluded; therefore clinical correlation and follow up of serology, culture results, and other molecular studies is required. The results are not intended to be used as the sole means for clinical diagnosis or patient management decisions. This sample was tested at the [facility] using the [employer] Respiratory Panel. It is FDA cleared and has been verified and approved by the [facility] for clinical use on nasal swab specimens. It is not FDA-cleared for use on bronchial wash/lavage samples. However, for this sample type, validation was performed and test characteristics were determined and approved, by [facility] for clinical use under the Clinical Laboratory Improvement Amendments (CLIA) of 1988 requirements. Therefore, FDA clearance isnot required. This laboratory is CLIA-certified and [employer] ([employer])-accredited to perform high complexity testing.POCT-GLUCOSE [id number] 07:58:00 Test Item Value Reference Range Comments POC-GLUCOSE METER (BEAKER) 209 mg/dL 70-110 TESTED AT [facility] [address] (test cjmy=9618) [facility] [address] RAD, CHEST, 1 VIEW, NON [id number] 07:32:00Reason for exam:->interval change in interstitial patternShould [...] [place] Verified Date/Time: 10/05/2018 07:32:16 Reading Location: [facility] Radiology Reading Room BASIC METABOLIC [id number] 06:37:00 Test Item Value Reference Range Comments SODIUM (BEAKER) (test 140 meq/L 136-145 frpz=840) POTASSIUM (BEAKER) (test 3.2 meq/L 3.5-5.1 ihrz=683) CHLORIDE (BEAKER) (test 105 meq/L 98-107 vrzj=344) CO2 (BEAKER) (test 28 meq/L 22-29 yxgp=564) BLOOD UREA NITROGEN 15 mg/dL 7-21 (BEAKER) (test tczl=981) CREATININE (BEAKER) (test 0.74 mg/dL 0.57-1.25 vlqa=216) GLUCOSE RANDOM (BEAKER) 191 mg/dL 70-105 (test gjyj=704) CALCIUM (BEAKER) (test 9.1 mg/dL 8.4-10.2 gbhh=111) EGFR (BEAKER) (test 106 mL/min/1.73 sq m ESTIMATED GFR IS NOT rpqg=5677) ACCURATE CREATININE CLEARANCE IN PREDICTING GLOMERULAR FILTRATION RATE. ESTIMATED GFR IS NOT APPLICABLE FOR DIALYSIS PATIENTS. TROPONIN [id number] 06:35:00 Test Item Value Reference Range Comments TROPONIN I (BEAKER) (test ipgq=422) 0.02 ng/mL 0.00-0.03 Troponin I (TnI) levels [...] and persistent tachyarrhythmia.CBC W/PLT COUNT & AUTO [id number] 06:17:00 Test Item Value Reference Range Comments WHITE BLOOD CELL COUNT (BEAKER) (test xhjt=343) 6.3 K/ L 3.5-10.5 RED BLOOD CELL COUNT (BEAKER) (test iyoi=038) 4.43 M/ L 4.63-6.08 HEMOGLOBIN (BEAKER) (test fxhr=473) 13.6 GM/DL 13.7-17.5 HEMATOCRIT (BEAKER) (test pjjl=329) 39.8 % 40.1-51.0 MEAN CORPUSCULAR VOLUME (BEAKER) (test ryiz=708) 89.8 fL 79.0-92.2 MEAN CORPUSCULAR HEMOGLOBIN (BEAKER) (test 30.7 pg 25.7-32.2 xcom=449) MEAN CORPUSCULAR HEMOGLOBIN CONC (BEAKER) (test 34.2 GM/DL 32.3-36.5 mhqf=834) RED CELL DISTRIBUTION WIDTH (BEAKER) (test 13.1 % 11.6-14.4 xqee=281) PLATELET COUNT (BEAKER) (test ycml=596) 200 K/CU MM 150-450 MEAN PLATELET VOLUME (BEAKER) (test ulph=316) 9.5 fL 9.4-12.4 NUCLEATED RED BLOOD CELLS (BEAKER) (test 0 /100 WBC 0-0 ogox=762) NEUTROPHILS RELATIVE PERCENT (BEAKER) (test 65 % mobe=026) LYMPHOCYTES RELATIVE PERCENT (BEAKER) (test 24 % gsqn=429) MONOCYTES RELATIVE PERCENT (BEAKER) (test 8 % livq=145) EOSINOPHILS RELATIVE PERCENT (BEAKER) (test 2 % erzm=559) BASOPHILS RELATIVE PERCENT (BEAKER) (test 1 % cspd=633) NEUTROPHILS ABSOLUTE COUNT (BEAKER) (test 4.12 K/ L 1.78-5.38 zguw=501) LYMPHOCYTES ABSOLUTE COUNT (BEAKER) (test 1.51 K/ L 1.32-3.57 yyik=294) MONOCYTES ABSOLUTE COUNT (BEAKER) (test 0.50 K/ L 0.30-0.82 hmqf=968) EOSINOPHILS ABSOLUTE COUNT (BEAKER) (test 0.15 K/ L 0.04-0.54 lwml=970) BASOPHILS ABSOLUTE COUNT (BEAKER) (test 0.03 K/ L 0.01-0.08 wodm=587) IMMATURE GRANULOCYTES-RELATIVE PERCENT (BEAKER) 1 % 0-1 (test cpnt=1903) POCT-GLUCOSE [id number] 23:02:00 Test Item Value Reference Range Comments POC-GLUCOSE METER (BEAKER) 305 mg/dL 70-110 TESTED AT [address] (test rbfd=8696) [facility] [address] TROPONIN [id number] 22:20:00 Test Item Value Reference Range Comments TROPONIN I (BEAKER) (test qxlz=048) 0.03 ng/mL 0.00-0.03 Troponin I (TnI) levels [...] acidosis, acute neurological disease, and persistent tachyarrhythmia.VITAMIN [id number] 18:10:00 Test Item Value Reference Range Comments VITAMIN B12 (BEAKER) (test hzph=806) 596 pg/mL 213-816 TSH/FREE T4 IF [id number] 18:10:00 Test Item Value Reference Range Comments THYROID STIMULATING HORMONE (BEAKER) (test 0.64 uIU/mL 0.35-4.94 vmaj=266) POCT-GLUCOSE [id number] 17:15:00 Test Item Value Reference Range Comments POC-GLUCOSE METER (BEAKER) 178 mg/dL 70-110 TESTED AT [facility] [address] (test qbsl=4488) [facility] [address] CT, BRAIN, WITHOUT [id number] 17:08:00FINAL REPORT CT head without contrast 10/04/2018 [...] evaluation with MRI is recommended. Signed: Sergio [place] Verified Date/Time: 10/04/2018 17:08:17 Reading Location: [facility] Radiology Reading Room BLOOD GAS, [id number] 16:32:00 Test Item Value Reference Range Comments PH ARTERIAL (BEAKER) (test qgyf=430) 7.39 7.35-7.45 PCO2 ARTERIAL (BEAKER) (test grfg=385) 46 mmHg 35-45 PO2 ARTERIAL (BEAKER) (test cnpc=781) 71 mmHg 80-90 O2 SATURATION ARTERIAL (BEAKER) (test uspw=764) 94.1 % 96.0-97.0 HCO3 ARTERIAL (BEAKER) (test dcoq=026) 27 mmol/L 21-29 BASE EXCESS ARTERIAL (BEAKER) (test qkbl=447) 1.5 mmol/L -2.0-3.0 PATIENT TEMPERATURE (BEAKER) (test icoh=6754) 37.0 C FIO2 (BEAKER) (test sizs=1453) 36.0 % RAPID INFLUENZA A&B [id number] 16:22:00 Test Item Value Reference Range Comments RAPID INFLUENZA A AG (BEAKER) (test Negative Negative, Inconclusive ohfd=9017) RAPID INFLUENZA B AG (BEAKER) (test Negative Negative, Inconclusive rodh=8927) B-TYPE NATRIURETIC FACTOR (BNP)2018-10-04 13:22:00 Test Item Value Reference Range Comments B-TYPE NATRIURETIC PEPTIDE (BEAKER) (test dlzx=385) 23 pg/mL 0-100 TROPONIN [id number] 13:21:00 Test Item Value Reference Range Comments TROPONIN I (BEAKER) (test oivb=286) 0.04 ng/mL 0.00-0.03 Troponin I (TnI) levels [...] failure, acidosis, acute neurological disease, and persistent tachyarrhythmia.[id number] 13:12:00 Test Item Value Reference Range Comments MAGNESIUM (BEAKER) (test hgib=963) 1.1 mg/dL 1.6-2.6 BASIC METABOLIC [id number] 13:12:00 Test Item Value Reference Range Comments SODIUM (BEAKER) (test 140 meq/L 136-145 fyai=628) POTASSIUM (BEAKER) (test 3.7 meq/L 3.5-5.1 ownb=451) CHLORIDE (BEAKER) (test 105 meq/L 98-107 xxtc=678) CO2 (BEAKER) (test 25 meq/L 22-29 ncpb=470) BLOOD UREA NITROGEN 24 mg/dL 7-21 (BEAKER) (test wywx=658) CREATININE (BEAKER) (test 0.90 mg/dL 0.57-1.25 lwjb=667) GLUCOSE RANDOM (BEAKER) 167 mg/dL 70-105 (test axky=821) CALCIUM (BEAKER) (test 9.1 mg/dL 8.4-10.2 bric=144) EGFR (BEAKER) (test 85 mL/min/1.73 sq m ESTIMATED GFR IS NOT vcot=0554) ACCURATE CREATININE CLEARANCE IN PREDICTING GLOMERULAR FILTRATION RATE. ESTIMATED GFR IS NOT APPLICABLE FOR DIALYSIS PATIENTS. CBC W/PLT COUNT & AUTO [id number] 12:40:00 Test Item Value Reference Range Comments WHITE BLOOD CELL COUNT (BEAKER) (test alnr=019) 9.5 K/ L 3.5-10.5 RED BLOOD CELL COUNT (BEAKER) (test iqbm=418) 4.57 M/ L 4.63-6.08 HEMOGLOBIN (BEAKER) (test ljpg=047) 13.8 GM/DL 13.7-17.5 HEMATOCRIT (BEAKER) (test xhay=249) 40.8 % 40.1-51.0 MEAN CORPUSCULAR VOLUME (BEAKER) (test snwn=685) 89.3 fL 79.0-92.2 MEAN CORPUSCULAR HEMOGLOBIN (BEAKER) (test 30.2 pg 25.7-32.2 vvix=444) MEAN CORPUSCULAR HEMOGLOBIN CONC (BEAKER) (test 33.8 GM/DL 32.3-36.5 wsvd=582) RED CELL DISTRIBUTION WIDTH (BEAKER) (test 13.2 % 11.6-14.4 scwi=284) PLATELET COUNT (BEAKER) (test uosb=949) 229 K/CU MM 150-450 MEAN PLATELET VOLUME (BEAKER) (test rcna=505) 9.6 fL 9.4-12.4 NUCLEATED RED BLOOD CELLS (BEAKER) (test 0 /100 WBC 0-0 hjut=215) NEUTROPHILS RELATIVE PERCENT (BEAKER) (test 64 % oqdm=141) LYMPHOCYTES RELATIVE PERCENT (BEAKER) (test 26 % jfkj=464) MONOCYTES RELATIVE PERCENT (BEAKER) (test 8 % hrqd=181) EOSINOPHILS RELATIVE PERCENT (BEAKER) (test 2 % gson=453) BASOPHILS RELATIVE PERCENT (BEAKER) (test 1 % xakj=509) NEUTROPHILS ABSOLUTE COUNT (BEAKER) (test 6.05 K/ L 1.78-5.38 wbip=718) LYMPHOCYTES ABSOLUTE COUNT (BEAKER) (test 2.48 K/ L 1.32-3.57 dzjy=526) MONOCYTES ABSOLUTE COUNT (BEAKER) (test 0.73 K/ L 0.30-0.82 lqjr=022) EOSINOPHILS ABSOLUTE COUNT (BEAKER) (test 0.14 K/ L 0.04-0.54 cftz=685) BASOPHILS ABSOLUTE COUNT (BEAKER) (test 0.05 K/ L 0.01-0.08 kuds=033) IMMATURE GRANULOCYTES-RELATIVE PERCENT (BEAKER) 1 % 0-1 (test xelm=7129) RAD, CHEST, 1 VIEW, NON [id number] 12:31:00Reason for exam:->chest painFINAL REPORT Chest one view. Clinical history: chest pain Comparison: September 07, 2018 Discussion: A frontal chest is provided. Cardiomediastinal contours are unchanged. There is mild bibasilar atelectasis, right greater than left. No new consolidation identified. No julisa pulmonary edema, pneumothorax, or significant effusion. Osseous structures demonstrate mild degenerative changes. Signed: Galen Pride Verified Date/Time: 10/04/2018 12:31:58 Reading Location: [facility] Radiology Reading Room FUNGUS CULTURE + [id number] 16:07:00 Test Item Value Reference Range Comments CULTURE (BEAKER) (test blyu=7969) <1+ Lauren albicans FUNGUS SMEAR (BEAKER) (test No fungi seen oakr=5495) POCT-GLUCOSE [id number] 12:22:00 Test Item Value Reference Range Comments POC-GLUCOSE METER (BEAKER) 171 mg/dL 70-110 TESTED AT [address] (test gjtx=9836) [facility] [address] POCT-GLUCOSE [id number] 08:28:00 Test Item Value Reference Range Comments POC-GLUCOSE METER (BEAKER) 212 mg/dL 70-110 TESTED AT [address] (test qfff=8206) [facility] [address] POCT-GLUCOSE [id number] 21:23:00 Test Item Value Reference Range Comments POC-GLUCOSE METER (BEAKER) 266 mg/dL 70-110 TESTED AT [address] (test veit=5772) [facility] [address] POCT-GLUCOSE [id number] 17:14:00 Test Item Value Reference Range Comments POC-GLUCOSE METER (BEAKER) 207 mg/dL 70-110 TESTED AT [address] (test qzco=8214) [facility] [address] POCT-GLUCOSE [id number] 11:43:00 Test Item Value Reference Range Comments POC-GLUCOSE METER (BEAKER) 182 mg/dL 70-110 TESTED AT [address] (test yhgd=7198) [facility] [address] POCT-GLUCOSE [id number] 06:58:00 Test Item Value Reference Range Comments POC-GLUCOSE METER (BEAKER) 186 mg/dL 70-110 TESTED AT [address] (test lwmn=2933) [facility] [address] POCT-GLUCOSE [id number] 21:22:00 Test Item Value Reference Range Comments POC-GLUCOSE METER (BEAKER) 230 mg/dL 70-110 TESTED AT [address] (test awqj=4575) [facility] [address] POCT-GLUCOSE [id number] 16:28:00 Test Item Value Reference Range Comments POC-GLUCOSE METER (BEAKER) 218 mg/dL 70-110 TESTED AT [address] (test goad=8126) [facility] [address] POCT-GLUCOSE [id number] 11:28:00 Test Item Value Reference Range Comments POC-GLUCOSE METER (BEAKER) 215 mg/dL 70-110 TESTED AT [address] (test opkn=4860) [facility] [address] POCT-GLUCOSE [id number] 06:58:00 Test Item Value Reference Range Comments POC-GLUCOSE METER (BEAKER) 197 mg/dL 70-110 TESTED AT [address] (test olyc=8379) [facility] [address] POCT-GLUCOSE [id number] 21:35:00 Test Item Value Reference Range Comments POC-GLUCOSE METER (BEAKER) 266 mg/dL 70-110 TESTED AT [address] (test wnlf=1896) [facility] [address] POCT-GLUCOSE [id number] 17:08:00 Test Item Value Reference Range Comments POC-GLUCOSE METER (BEAKER) 189 mg/dL 70-110 TESTED AT [address] (test ebmg=6052) [facility] [address] POCT-GLUCOSE [id number] 11:44:00 Test Item Value Reference Range Comments POC-GLUCOSE METER (BEAKER) 223 mg/dL 70-110 TESTED AT [address] (test rtyq=6345) [place] [id number] POCT-GLUCOSE [id number] 07:21:00 Test Item Value Reference Range Comments POC-GLUCOSE METER (BEAKER) 173 mg/dL 70-110 TESTED AT [facility] [address] (test yick=8221) [facility] [address] RAD, CHEST, 1 VIEW, NON [id number] 07:12:00Reason for exam:->pulm edemaShould this be performed at the bedside?->YesFINAL REPORT CLINICAL HISTORY: pulm edema TECHNIQUE: 1 view of the chest. COMPARISON : 09/06/2018 IMPRESSION: Right central line has been removed. There is decreased bibasilar atelectasis. There is no significant appearing pleural fluid. The cardiomediastinal silhouette is magnified by technique. Signed: Yimi Harkins MDReport Verified Date/Time: 09/07/2018 07:12:01 Reading Location : [facility] Radiology Reading Room [id number] 06:13:00 Test Item Value Reference Range Comments PHOSPHORUS (BEAKER) (test hmjn=565) 2.0 mg/dL 2.3-4.7 [id number] 06:13:00 Test Item Value Reference Range Comments MAGNESIUM (BEAKER) (test ewmj=726) 2.2 mg/dL 1.6-2.6 COMPREHENSIVE METABOLIC [id number] 06:13:00 Test Item Value Reference Range Comments TOTAL PROTEIN (BEAKER) 6.1 gm/dL 6.0-8.3 (test yfak=296) ALBUMIN (BEAKER) (test 3.3 g/dL 3.5-5.0 retw=2660) ALKALINE PHOSPHATASE 44 U/L 40-150 (BEAKER) (test bqnr=503) BILIRUBIN TOTAL (BEAKER) 0.6 mg/dL 0.2-1.2 (test yity=742) SODIUM (BEAKER) (test 141 meq/L 136-145 firx=357) POTASSIUM (BEAKER) (test 3.5 meq/L 3.5-5.1 hoco=227) CHLORIDE (BEAKER) (test 109 meq/L 98-107 rbgz=517) CO2 (BEAKER) (test 24 meq/L 22-29 jvhp=023) BLOOD UREA NITROGEN 11 mg/dL 7-21 (BEAKER) (test jzzg=091) CREATININE (BEAKER) (test 0.63 mg/dL 0.57-1.25 nadf=345) GLUCOSE RANDOM (BEAKER) 134 mg/dL 70-105 (test abeu=112) CALCIUM (BEAKER) (test 8.3 mg/dL 8.4-10.2 bnhg=472) AST (SGOT) (BEAKER) (test 21 U/L 5-34 omsk=736) ALT (SGPT) (BEAKER) (test 12 U/L 6-55 iyft=823) EGFR (BEAKER) (test 128 mL/min/1.73 sq ESTIMATED GFR IS NOT fgbz=8165) m ACCURATE CREATININE CLEARANCE IN PREDICTING GLOMERULAR FILTRATION RATE. ESTIMATED GFR IS NOT APPLICABLE FOR DIALYSIS PATIENTS. CBC W/PLT COUNT & AUTO [id number] 05:22:00 Test Item Value Reference Range Comments WHITE BLOOD CELL COUNT (BEAKER) (test kyxn=471) 6.9 K/ L 3.5-10.5 RED BLOOD CELL COUNT (BEAKER) (test ecjm=911) 3.83 M/ L 4.63-6.08 HEMOGLOBIN (BEAKER) (test oscx=325) 11.8 GM/DL 13.7-17.5 HEMATOCRIT (BEAKER) (test zyrq=075) 35.0 % 40.1-51.0 MEAN CORPUSCULAR VOLUME (BEAKER) (test xfse=829) 91.4 fL 79.0-92.2 MEAN CORPUSCULAR HEMOGLOBIN (BEAKER) (test 30.8 pg 25.7-32.2 ahar=451) MEAN CORPUSCULAR HEMOGLOBIN CONC (BEAKER) (test 33.7 GM/DL 32.3-36.5 rvmt=725) RED CELL DISTRIBUTION WIDTH (BEAKER) (test 13.3 % 11.6-14.4 zixj=569) PLATELET COUNT (BEAKER) (test ajlc=733) 237 K/CU MM 150-450 MEAN PLATELET VOLUME (BEAKER) (test rysi=105) 9.8 fL 9.4-12.4 NUCLEATED RED BLOOD CELLS (BEAKER) (test 0 /100 WBC 0-0 ocxf=348) NEUTROPHILS RELATIVE PERCENT (BEAKER) (test 61 % bqaq=521) LYMPHOCYTES RELATIVE PERCENT (BEAKER) (test 29 % aoxa=521) MONOCYTES RELATIVE PERCENT (BEAKER) (test 8 % ealx=882) EOSINOPHILS RELATIVE PERCENT (BEAKER) (test 1 % wwpp=038) BASOPHILS RELATIVE PERCENT (BEAKER) (test 0 % jexc=455) NEUTROPHILS ABSOLUTE COUNT (BEAKER) (test 4.21 K/ L 1.78-5.38 utry=383) LYMPHOCYTES ABSOLUTE COUNT (BEAKER) (test 1.98 K/ L 1.32-3.57 jfds=648) MONOCYTES ABSOLUTE COUNT (BEAKER) (test 0.54 K/ L 0.30-0.82 njep=962) EOSINOPHILS ABSOLUTE COUNT (BEAKER) (test 0.07 K/ L 0.04-0.54 qpjq=256) BASOPHILS ABSOLUTE COUNT (BEAKER) (test 0.03 K/ L 0.01-0.08 dteq=134) IMMATURE GRANULOCYTES-RELATIVE PERCENT (BEAKER) 1 % 0-1 (test ybko=5777) POCT-GLUCOSE [id number] 21:22:00 Test Item Value Reference Range Comments POC-GLUCOSE METER (BEAKER) 223 mg/dL 70-110 TESTED AT [address] (test alfj=1995) [place] [address] POCT-GLUCOSE [id number] 17:32:00 Test Item Value Reference Range Comments POC-GLUCOSE METER (BEAKER) 204 mg/dL 70-110 TESTED AT [address] (test ixvc=1235) [place] [address] MISCELLANEOUS LAB [id number] 14:45:00 Test Item Value Reference Range Comments SCAN RESULT (test yvgl=[id number]) POCT-GLUCOSE [id number] 13:12:00 Test Item Value Reference Range Comments POC-GLUCOSE METER (BEAKER) 224 mg/dL 70-110 TESTED AT [address] (test lffj=4427) [place] [address] POCT-GLUCOSE [id number] 07:36:00 Test Item Value Reference Range Comments POC-GLUCOSE METER (BEAKER) 173 mg/dL 70-110 TESTED AT [address] (test eobp=8642) [place] [address] RAD, CHEST, 1 VIEW, NON [id number] 07:19:00Reason for exam:->pulm edemaShould this be performed [...] MDReport Verified Date/Time: 09/06/2018 07:19:50 Reading Location: [facility] Radiology Reading Room COMPREHENSIVE METABOLIC [id number] 05:49:00 Test Item Value Reference Range Comments TOTAL PROTEIN (BEAKER) 5.6 gm/dL 6.0-8.3 (test draa=217) ALBUMIN (BEAKER) (test 3.0 g/dL 3.5-5.0 ugga=6234) ALKALINE PHOSPHATASE 38 U/L 40-150 (BEAKER) (test mfzt=315) BILIRUBIN TOTAL (BEAKER) 0.5 mg/dL 0.2-1.2 (test jmto=617) SODIUM (BEAKER) (test 142 meq/L 136-145 pnbh=561) POTASSIUM (BEAKER) (test 3.4 meq/L 3.5-5.1 vvxa=838) CHLORIDE (BEAKER) (test 112 meq/L 98-107 qucs=278) CO2 (BEAKER) (test 24 meq/L 22-29 qbop=492) BLOOD UREA NITROGEN 14 mg/dL 7-21 (BEAKER) (test xpyk=869) CREATININE (BEAKER) (test 0.59 mg/dL 0.57-1.25 zhbk=600) GLUCOSE RANDOM (BEAKER) 147 mg/dL 70-105 (test btsb=502) CALCIUM (BEAKER) (test 7.7 mg/dL 8.4-10.2 evmv=381) AST (SGOT) (BEAKER) (test 16 U/L 5-34 sxok=598) ALT (SGPT) (BEAKER) (test 10 U/L 6-55 qwyc=337) EGFR (BEAKER) (test 138 mL/min/1.73 sq ESTIMATED GFR IS NOT irta=0098) m ACCURATE CREATININE CLEARANCE IN PREDICTING GLOMERULAR FILTRATION RATE. ESTIMATED GFR IS NOT APPLICABLE FOR DIALYSIS PATIENTS. [id number] 05:47:00 Test Item Value Reference Range Comments PHOSPHORUS (BEAKER) (test wrdi=960) 1.9 mg/dL 2.3-4.7 [id number] 05:47:00 Test Item Value Reference Range Comments MAGNESIUM (BEAKER) (test oshe=509) 2.0 mg/dL 1.6-2.6 CBC W/PLT COUNT & AUTO [id number] 05:34:00 Test Item Value Reference Range Comments WHITE BLOOD CELL COUNT (BEAKER) (test aslc=099) 6.7 K/ L 3.5-10.5 RED BLOOD CELL COUNT (BEAKER) (test skzy=883) 3.80 M/ L 4.63-6.08 HEMOGLOBIN (BEAKER) (test qpez=996) 11.6 GM/DL 13.7-17.5 HEMATOCRIT (BEAKER) (test ynfz=828) 34.9 % 40.1-51.0 MEAN CORPUSCULAR VOLUME (BEAKER) (test gjfy=275) 91.8 fL 79.0-92.2 MEAN CORPUSCULAR HEMOGLOBIN (BEAKER) (test 30.5 pg 25.7-32.2 kcou=301) MEAN CORPUSCULAR HEMOGLOBIN CONC (BEAKER) (test 33.2 GM/DL 32.3-36.5 dxmp=585) RED CELL DISTRIBUTION WIDTH (BEAKER) (test 13.2 % 11.6-14.4 idsi=946) PLATELET COUNT (BEAKER) (test smcu=137) 215 K/CU MM 150-450 MEAN PLATELET VOLUME (BEAKER) (test tmxm=067) 9.2 fL 9.4-12.4 NUCLEATED RED BLOOD CELLS (BEAKER) (test 0 /100 WBC 0-0 fyew=813) NEUTROPHILS RELATIVE PERCENT (BEAKER) (test 68 % vupu=600) LYMPHOCYTES RELATIVE PERCENT (BEAKER) (test 22 % yeny=513) MONOCYTES RELATIVE PERCENT (BEAKER) (test 7 % cvum=358) EOSINOPHILS RELATIVE PERCENT (BEAKER) (test 2 % naan=642) BASOPHILS RELATIVE PERCENT (BEAKER) (test 0 % hant=954) NEUTROPHILS ABSOLUTE COUNT (BEAKER) (test 4.53 K/ L 1.78-5.38 xxvi=202) LYMPHOCYTES ABSOLUTE COUNT (BEAKER) (test 1.50 K/ L 1.32-3.57 poqz=591) MONOCYTES ABSOLUTE COUNT (BEAKER) (test 0.47 K/ L 0.30-0.82 nyyf=861) EOSINOPHILS ABSOLUTE COUNT (BEAKER) (test 0.13 K/ L 0.04-0.54 reng=664) BASOPHILS ABSOLUTE COUNT (BEAKER) (test 0.02 K/ L 0.01-0.08 pave=867) IMMATURE GRANULOCYTES-RELATIVE PERCENT (BEAKER) 1 % 0-1 (test zitt=5129) POCT-GLUCOSE [id number] 22:53:00 Test Item Value Reference Range Comments POC-GLUCOSE METER (BEAKER) 206 mg/dL 70-110 TESTED AT [address] (test lfwf=4630) [facility] [address] MR, SPINE, LUMBAR, [id number] 18:10:00FINAL REPORT MRI lumbar spine with and [...] and left foraminal disc protrusions. There is irjb-lg-utyifgzq narrowing of the central canal, and left [...] at several levels as described. Signed: Galen Prideeport Verified Date/Time: 09/05/2018 18:10:50 Reading Location: [facility] C013V Neuro Reading Room POCT-GLUCOSE [id number] 18:07:00 Test Item Value Reference Range Comments POC-GLUCOSE METER (BEAKER) 183 mg/dL 70-110 TESTED AT [address] (test kiik=2949) [place] [address] POCT-GLUCOSE [id number] 11:53:00 Test Item Value Reference Range Comments POC-GLUCOSE METER (BEAKER) 324 mg/dL 70-110 Notified MILLA CARPENTER/TESTED AT [facility] (test iuwy=9053) [address] [place] [address] [id number] 10:47:00 Test Item Value Reference Range Comments LIPASE (BEAKER) (test sbgr=826) 141 U/L 8-78 POCT-GLUCOSE [id number] 07:43:00 Test Item Value Reference Range Comments POC-GLUCOSE METER (BEAKER) 176 mg/dL 70-110 TESTED AT [address] (test xwdg=4969) [place] [address] RAD, CHEST, 1 VIEW, NON [id number] 05:49:00Reason for exam:->pulm edemaShould this be performed at the bedside?->YesFINAL REPORT RAD, CHEST, 1 VIEW, NON DEPT INDICATION: pulm edema COMPARISON: Prior day's exam FINDINGS: Portable frontal view of the chest. IMPRESSION: Support Lines: Stable. Lungs and pleura: Unchanged airspace and pleural opacities. No pneumothorax.Heart and mediastinum: Stable contours. Additional findings: None. Signed: Ozzie Avila Verified Date/Time: 09/05/2018 05:49:04 Reading Location: [address] Transitional Reading Room [id number] 04:38 :00 Test Item Value Reference Range Comments PHOSPHORUS (BEAKER) (test sdvt=422) 2.6 mg/dL 2.3-4.7 [id number] 04:38:00 Test Item Value Reference Range Comments MAGNESIUM (BEAKER) (test clwe=179) 2.2 mg/dL 1.6-2.6 COMPREHENSIVE METABOLIC [id number] 04:38:00 Test Item Value Reference Range Comments TOTAL PROTEIN (BEAKER) 6.1 gm/dL 6.0-8.3 (test tzle=581) ALBUMIN (BEAKER) (test 3.3 g/dL 3.5-5.0 clzv=8655) ALKALINE PHOSPHATASE 42 U/L 40-150 (BEAKER) (test bkcm=291) BILIRUBIN TOTAL (BEAKER) 0.6 mg/dL 0.2-1.2 (test zkoi=440) SODIUM (BEAKER) (test 144 meq/L 136-145 fwmm=969) POTASSIUM (BEAKER) (test 3.9 meq/L 3.5-5.1 pxml=723) CHLORIDE (BEAKER) (test 111 meq/L 98-107 nmzn=099) CO2 (BEAKER) (test 26 meq/L 22-29 mjck=586) BLOOD UREA NITROGEN 22 mg/dL 7-21 (BEAKER) (test nbrq=976) CREATININE (BEAKER) (test 0.72 mg/dL 0.57-1.25 xcnh=089) GLUCOSE RANDOM (BEAKER) 165 mg/dL 70-105 (test visn=697) CALCIUM (BEAKER) (test 8.4 mg/dL 8.4-10.2 dpsy=266) AST (SGOT) (BEAKER) (test 16 U/L 5-34 gbqh=190) ALT (SGPT) (BEAKER) (test 10 U/L 6-55 wumh=742) EGFR (BEAKER) (test 110 mL/min/1.73 sq ESTIMATED GFR IS NOT rilm=1482) m ACCURATE CREATININE CLEARANCE IN PREDICTING GLOMERULAR FILTRATION RATE. ESTIMATED GFR IS NOT APPLICABLE FOR DIALYSIS PATIENTS. CBC W/PLT COUNT & AUTO [id number] 04:16:00 Test Item Value Reference Range Comments WHITE BLOOD CELL COUNT (BEAKER) (test vqct=679) 10.5 K/ L 3.5-10.5 RED BLOOD CELL COUNT (BEAKER) (test blhz=177) 3.87 M/ L 4.63-6.08 HEMOGLOBIN (BEAKER) (test ccve=247) 11.8 GM/DL 13.7-17.5 HEMATOCRIT (BEAKER) (test xjlu=470) 36.0 % 40.1-51.0 MEAN CORPUSCULAR VOLUME (BEAKER) (test fujy=732) 93.0 fL 79.0-92.2 MEAN CORPUSCULAR HEMOGLOBIN (BEAKER) (test 30.5 pg 25.7-32.2 skeu=051) MEAN CORPUSCULAR HEMOGLOBIN CONC (BEAKER) (test 32.8 GM/DL 32.3-36.5 oucz=041) RED CELL DISTRIBUTION WIDTH (BEAKER) (test 13.5 % 11.6-14.4 amnd=364) PLATELET COUNT (BEAKER) (test myfj=321) 263 K/CU MM 150-450 MEAN PLATELET VOLUME (BEAKER) (test ybwp=481) 9.5 fL 9.4-12.4 NUCLEATED RED BLOOD CELLS (BEAKER) (test 0 /100 WBC 0-0 moem=802) NEUTROPHILS RELATIVE PERCENT (BEAKER) (test 74 % rtxp=214) LYMPHOCYTES RELATIVE PERCENT (BEAKER) (test 18 % cjyn=263) MONOCYTES RELATIVE PERCENT (BEAKER) (test 5 % qwrk=836) EOSINOPHILS RELATIVE PERCENT (BEAKER) (test 2 % aaks=353) BASOPHILS RELATIVE PERCENT (BEAKER) (test 0 % kpvj=528) NEUTROPHILS ABSOLUTE COUNT (BEAKER) (test 7.70 K/ L 1.78-5.38 azva=997) LYMPHOCYTES ABSOLUTE COUNT (BEAKER) (test 1.89 K/ L 1.32-3.57 otvy=156) MONOCYTES ABSOLUTE COUNT (BEAKER) (test 0.56 K/ L 0.30-0.82 cbdy=955) EOSINOPHILS ABSOLUTE COUNT (BEAKER) (test 0.18 K/ L 0.04-0.54 drnx=501) BASOPHILS ABSOLUTE COUNT (BEAKER) (test 0.04 K/ L 0.01-0.08 nqzb=143) IMMATURE GRANULOCYTES-RELATIVE PERCENT (BEAKER) 1 % 0-1 (test xgtk=6560) U/S, ABDOMINAL, [id number] 02:32:00Reason for exam:->abd distension, nausea,vomittingShould this be [...] Ozzie Avila Verified Date/Time: 02:32:11 Reading Location: [address] Transitional Reading Room Electronically signed by: Hitesh ZARATE 09/05/2018 02:32 AMCT, [id number] 21:34:00Elevated lipaseFINAL REPORT CLINICAL HISTORY: Nausea, vomiting, [...] Verified Date/Time: 09/04/2018 21: 34:29 Reading Location: [address] Reading Room POCT- GLUCOSE [id number] 21:30:00 Test Item Value Reference Range Comments POC-GLUCOSE METER (BEAKER) 159 mg/dL 70-110 TESTED AT [address] (test wrju=6202) [place] [address] VANCOMYCIN LEVEL, [id number] 21:17:00 Test Item Value Reference Range Comments VANCOMYCIN TROUGH (BEAKER) (test fwjn=998) 9.0 ug/mL 10.0-20.0 Please draw vancomycin trough level 09/04 at 2030 hold if trough >20POCT- GLUCOSE [id number] 18:32:00 Test Item Value Reference Range Comments POC-GLUCOSE METER (BEAKER) 174 mg/dL 70-110 TESTED AT [address] (test wdmu=4082) [place] [address] NEEDLE EMG, 4 [id number] 16:22:00Reason for exam:->r/o [facility]LECTROM[facility]OGR[facility] - NERVE CONDUCTION STUDY [address] [place] [address] [address] [place], [place] [id number] Name : Garrison Burnett : Date of [...] mm Median.LWrist 4.0 ms 4.6 ms 4 V Digit II (index finger)-Wrist 4.0 ms 130 mm 33 m/sUlnar.LWrist NR NR NR Digit V (little finger)-Wrist 110 mm Radial.LForearm 1.1 ms 2.0 ms 23 ⿖V Anatomical snuff box-Forearm 1.1 ms 110 mm 55 m/sSural.RLower leg 2.4 ms 3.5 ms 5 V Ankle-Lower leg 2.4 ms 140 mm 40 m/sMedian.RWrist 3.8 ms 4.5 ms 8 𗐢V Digit II (index finger)-Wrist 3.8 ms 130 mm 34 m/sUlnar.RWrist NR NR NR Digit V (little finger)- Wrist 110 mm Radial.RForearm 1.9 ms 2.5 ms 18 稦V Anatomical snuff box-Forearm 1.9 ms 95 mm [...] Henriquez M.D. RAD, CHEST, 1 VIEW, NON [id number] 10:58:00Reason for exam:->pulm edemaShould this be performed [...] Pride Verified Date/Time: 09/04/2018 10:58:17 Reading Location: [facility] Radiology Reading Room [id number] 10:53:00 Test Item Value Reference Range Comments LIPASE (BEAKER) (test ittc=889) 122 U/L 8-78 [id number] 10:53:00 Test Item Value Reference Range Comments AMYLASE (BEAKER) (test qugm=027) 86 U/L 25-125 RAD, ABDOMEN/KUB, 1 VIEW [id number] 10:34:00Reason for exam:->abdominal distensionShould this be performed [...] Pride Verified Date/Time: 09/04/2018 10:34:31 Reading Location: [facility] Radiology Reading Room Electronically signed by: GALEN PRIDE M.D. on09/04/2018 10:34 AMBLOOD [id number] 10:01:00 Test Item Value Reference Range Comments CULTURE (BEAKER) (test emuh=1853) No growth in 5 days POCT-GLUCOSE [id number] 08:11:00 Test Item Value Reference Range Comments POC-GLUCOSE METER (BEAKER) 233 mg/dL 70-110 TESTED AT [facility] [address] (test jzhg=1243) [facility] [address] BLOOD [id number] 05:01:00 Test Item Value Reference Range Comments CULTURE (BEAKER) (test faud=8324) No growth in 5 days [id number] 03:50:00 Test Item Value Reference Range Comments PHOSPHORUS (BEAKER) (test bynh=626) 2.5 mg/dL 2.3-4.7 [id number] 03:50:00 Test Item Value Reference Range Comments MAGNESIUM (BEAKER) (test eaxu=352) 2.2 mg/dL 1.6-2.6 COMPREHENSIVE METABOLIC [id number] 03:50:00 Test Item Value Reference Range Comments TOTAL PROTEIN (BEAKER) 7.1 gm/dL 6.0-8.3 (test femt=799) ALBUMIN (BEAKER) (test 3.7 g/dL 3.5-5.0 ckiw=6416) ALKALINE PHOSPHATASE 46 U/L 40-150 (BEAKER) (test tkfb=522) BILIRUBIN TOTAL (BEAKER) 0.6 mg/dL 0.2-1.2 (test ambh=155) SODIUM (BEAKER) (test 143 meq/L 136-145 xldv=162) POTASSIUM (BEAKER) (test 3.8 meq/L 3.5-5.1 tmph=404) CHLORIDE (BEAKER) (test 106 meq/L 98-107 fwhh=427) CO2 (BEAKER) (test 27 meq/L 22-29 koax=228) BLOOD UREA NITROGEN 20 mg/dL 7-21 (BEAKER) (test bwdo=336) CREATININE (BEAKER) (test 0.76 mg/dL 0.57-1.25 swlm=823) GLUCOSE RANDOM (BEAKER) 219 mg/dL 70-105 (test hxmm=594) CALCIUM (BEAKER) (test 9.1 mg/dL 8.4-10.2 aayv=435) AST (SGOT) (BEAKER) (test 17 U/L 5-34 ikut=979) ALT (SGPT) (BEAKER) (test 14 U/L 6-55 kfwo=770) EGFR (BEAKER) (test 103 mL/min/1.73 sq ESTIMATED GFR IS NOT geig=5966) m ACCURATE CREATININE CLEARANCE IN PREDICTING GLOMERULAR FILTRATION RATE. ESTIMATED GFR IS NOT APPLICABLE FOR DIALYSIS PATIENTS. CBC W/PLT COUNT & AUTO [id number] 03:33:00 Test Item Value Reference Range Comments WHITE BLOOD CELL COUNT (BEAKER) (test qira=942) 13.5 K/ L 3.5-10.5 RED BLOOD CELL COUNT (BEAKER) (test dxxq=368) 4.28 M/ L 4.63-6.08 HEMOGLOBIN (BEAKER) (test pwdt=796) 13.3 GM/DL 13.7-17.5 HEMATOCRIT (BEAKER) (test ouwx=453) 39.0 % 40.1-51.0 MEAN CORPUSCULAR VOLUME (BEAKER) (test jbyr=834) 91.1 fL 79.0-92.2 MEAN CORPUSCULAR HEMOGLOBIN (BEAKER) (test 31.1 pg 25.7-32.2 biew=527) MEAN CORPUSCULAR HEMOGLOBIN CONC (BEAKER) (test 34.1 GM/DL 32.3-36.5 xlue=751) RED CELL DISTRIBUTION WIDTH (BEAKER) (test 13.4 % 11.6-14.4 sxpz=947) PLATELET COUNT (BEAKER) (test qwsk=212) 270 K/CU MM 150-450 MEAN PLATELET VOLUME (BEAKER) (test fbep=925) 9.4 fL 9.4-12.4 NUCLEATED RED BLOOD CELLS (BEAKER) (test 0 /100 WBC 0-0 qkyb=614) NEUTROPHILS RELATIVE PERCENT (BEAKER) (test 84 % ggmy=087) LYMPHOCYTES RELATIVE PERCENT (BEAKER) (test 9 % spci=429) MONOCYTES RELATIVE PERCENT (BEAKER) (test 5 % ryhq=771) EOSINOPHILS RELATIVE PERCENT (BEAKER) (test 1 % xbyb=213) BASOPHILS RELATIVE PERCENT (BEAKER) (test 0 % hhuk=848) NEUTROPHILS ABSOLUTE COUNT (BEAKER) (test 11.40 K/ L 1.78-5.38 biah=087) LYMPHOCYTES ABSOLUTE COUNT (BEAKER) (test 1.22 K/ L 1.32-3.57 attr=614) MONOCYTES ABSOLUTE COUNT (BEAKER) (test 0.71 K/ L 0.30-0.82 urms=180) EOSINOPHILS ABSOLUTE COUNT (BEAKER) (test 0.08 K/ L 0.04-0.54 twjy=774) BASOPHILS ABSOLUTE COUNT (BEAKER) (test 0.04 K/ L 0.01-0.08 ycoy=332) IMMATURE GRANULOCYTES-RELATIVE PERCENT (BEAKER) 1 % 0-1 (test evjs=0819) POCT-GLUCOSE [id number] 22:18:00 Test Item Value Reference Range Comments POC-GLUCOSE METER (BEAKER) 262 mg/dL 70-110 TESTED AT [facility] [address] (test xigf=6379) [facility] [address] C. DIFFICILE GDH [id number] 20:32:00 Test Item Value Reference Range Comments CDT TOXIN (test Negative Negative wgwx=[id number]) CDT GDH ANTIGEN (test Negative Negative No indication of Clostridium upuf=[id number]) difficile infection and no colonization. Discontinue enteric isolation and therapy. Testing performed by [employer]FLO[employer] Rapid Cassette Assay. For GDH, published sensitivity of the assay is 98.7% compared to cytotoxicity testing. For Toxin AB, published sensitivity is 87.8% and specificity 99.4% compared to cytotoxicity testing.Verification of kit performance was done by the [facility] Microbiology Lab prior to clinical use.RAD, ABDOMEN/KUB, 1 VIEW [id number] 18: 40:00Reason for exam:->abdominal distensionShould this be performed at the bedside?->YesFINAL REPORT Comparison: 08/30/2018 TECHNIQUE: Frontal images of the abdomen Discussion: Abdomen: Bowel gas pattern is nonobstructed. There is no free intraperitoneal air. No soft tissue abnormalities. No acute skeletal abnormality. Right upper: Cholecystectomy clips are seen.Impression: 1. Nonspecific bowel gas pattern. Signed: Shailesh Hardingort Verified Date/Time: 09/03/2018 18:40:53 Reading Location: [facility] Reading Room Electronically signed by: SHAILESH HARDING M.D. on 2017 06:40 PMPOCT-GLUCOSE [id number] 17:23:00 Test Item Value Reference Range Comments POC-GLUCOSE METER (BEAKER) 215 mg/dL 70-110 TESTED AT [facility] [address] (test vema=5230) [place] [address] BLOOD GAS, [id number] 17:05:00 Test Item Value Reference Range Comments PH ARTERIAL (BEAKER) (test jqhs=676) 7.49 7.35-7.45 PCO2 ARTERIAL (BEAKER) (test qslb=176) 37 mmHg 35-45 PO2 ARTERIAL (BEAKER) (test ygwu=859) 69 mmHg 80-90 O2 SATURATION ARTERIAL (BEAKER) (test ucdw=252) 95.1 % 96.0-97.0 HCO3 ARTERIAL (BEAKER) (test ygyo=272) 27 mmol/L 21-29 BASE EXCESS ARTERIAL (BEAKER) (test bvnd=865) 3.8 mmol/L -2.0-3.0 PATIENT TEMPERATURE (BEAKER) (test qufr=3367) 36.9 C FIO2 (BEAKER) (test tazy=3152) 28.0 % BLOOD GAS, [id number] 16:42:00 Test Item Value Reference Range Comments PH ARTERIAL (BEAKER) (test hgxq=159) 7.45 7.35-7.45 PCO2 ARTERIAL (BEAKER) (test ezms=708) 39 mmHg 35-45 PO2 ARTERIAL (BEAKER) (test zwhq=298) 40 mmHg 80-90 O2 SATURATION ARTERIAL (BEAKER) (test yiem=022) 78.0 % 96.0-97.0 HCO3 ARTERIAL (BEAKER) (test eytv=048) 27 mmol/L 21-29 BASE EXCESS ARTERIAL (BEAKER) (test kvgq=495) 2.6 mmol/L -2.0-3.0 PATIENT TEMPERATURE (BEAKER) (test kary=3564) 36.7 C FIO2 (BEAKER) (test xvow=5993) 28.0 % [id number] 15:06:00Medical Cytology Report Case: [id number] Authorizing Provider: Nannette Marie NP Collected: 08/31/2018 1146 Ordering Location: [place] [address] CCU Received: 09/03/2018 0978 Pathologist: Shannon Norman Specimen: Lung, Right Middle Lobe RIGHT MIDDLE LOBE LUNG, BAL ( CYTOSPINS): - NEGATIVE FOR MALIGNANCY Signing Pathologist Direct Phone Line: [phone] signed by Shannon Norman on 09/03/2018 at 3:06 [id number], PneumoniaRIGHT MIDDLE LOBE LUNG BALPrepared 4 cytospins from 20 ml colorless fluidCollected: [id number]: [id number] [facility], Department of Pathology, [address] [place] [address], [facility], [facility] of [facility]ology, [address] [place] [address] , [facility], Department of Pathology, [address] [place] [address], EEGL-GLUCOSE [id number] 11:22:00 Test Item Value Reference Range Comments POC-GLUCOSE METER (BEAKER) 224 mg/dL 70-110 TESTED AT [address] (test mmry=0607) [place] [address] RAD, CHEST, 1 VIEW, NON [id number] 06:16:00Reason for exam:->ETT placementShould this be performed [...] Stable contours. Additional findings: None. Signed: Ozzie Avilaepumair Verified Date/Time: 09/03/2018 06:16 :06 Reading Location: [address] Transitional Reading Room [id number] 05:13:00 Test Item Value Reference Range Comments MAGNESIUM (BEAKER) (test nnbx=583) 2.0 mg/dL 1.6-2.6 BASIC METABOLIC [id number] 05:13:00 Test Item Value Reference Range Comments SODIUM (BEAKER) (test 142 meq/L 136-145 aqzq=879) POTASSIUM (BEAKER) (test 4.1 meq/L 3.5-5.1 pyqz=721) CHLORIDE (BEAKER) (test 108 meq/L 98-107 gegg=433) CO2 (BEAKER) (test 21 meq/L 22-29 cayo=635) BLOOD UREA NITROGEN 20 mg/dL 7-21 (BEAKER) (test jrdi=411) CREATININE (BEAKER) (test 0.78 mg/dL 0.57-1.25 pplx=420) GLUCOSE RANDOM (BEAKER) 213 mg/dL 70-105 (test wfrw=766) CALCIUM (BEAKER) (test 9.5 mg/dL 8.4-10.2 nluu=953) EGFR (BEAKER) (test 100 mL/min/1.73 sq m ESTIMATED GFR IS NOT mjvo=2757) ACCURATE CREATININE CLEARANCE IN PREDICTING GLOMERULAR FILTRATION RATE. ESTIMATED GFR IS NOT APPLICABLE FOR DIALYSIS PATIENTS. CBC W/PLT COUNT & AUTO [id number] 04:59:00 Test Item Value Reference Range Comments WHITE BLOOD CELL COUNT (BEAKER) (test xxcr=982) 14.4 K/ L 3.5-10.5 RED BLOOD CELL COUNT (BEAKER) (test tivg=972) 4.35 M/ L 4.63-6.08 HEMOGLOBIN (BEAKER) (test qtpc=276) 13.2 GM/DL 13.7-17.5 HEMATOCRIT (BEAKER) (test miew=922) 39.2 % 40.1-51.0 MEAN CORPUSCULAR VOLUME (BEAKER) (test jgge=534) 90.1 fL 79.0-92.2 MEAN CORPUSCULAR HEMOGLOBIN (BEAKER) (test 30.3 pg 25.7-32.2 whny=731) MEAN CORPUSCULAR HEMOGLOBIN CONC (BEAKER) (test 33.7 GM/DL 32.3-36.5 hvhw=997) RED CELL DISTRIBUTION WIDTH (BEAKER) (test 13.3 % 11.6-14.4 dbzv=071) PLATELET COUNT (BEAKER) (test upcl=076) 254 K/CU MM 150-450 MEAN PLATELET VOLUME (BEAKER) (test pofm=019) 9.5 fL 9.4-12.4 NUCLEATED RED BLOOD CELLS (BEAKER) (test 0 /100 WBC 0-0 xxfd=021) NEUTROPHILS RELATIVE PERCENT (BEAKER) (test 85 % tjvf=344) LYMPHOCYTES RELATIVE PERCENT (BEAKER) (test 8 % hlle=337) MONOCYTES RELATIVE PERCENT (BEAKER) (test 5 % jlkn=281) EOSINOPHILS RELATIVE PERCENT (BEAKER) (test 1 % izqs=725) BASOPHILS RELATIVE PERCENT (BEAKER) (test 0 % qlqm=969) NEUTROPHILS ABSOLUTE COUNT (BEAKER) (test 12.25 K/ L 1.78-5.38 qhra=787) LYMPHOCYTES ABSOLUTE COUNT (BEAKER) (test 1.21 K/ L 1.32-3.57 zrtq=451) MONOCYTES ABSOLUTE COUNT (BEAKER) (test 0.70 K/ L 0.30-0.82 vtrl=758) EOSINOPHILS ABSOLUTE COUNT (BEAKER) (test 0.10 K/ L 0.04-0.54 uzac=112) BASOPHILS ABSOLUTE COUNT (BEAKER) (test 0.03 K/ L 0.01-0.08 qtbv=434) IMMATURE GRANULOCYTES-RELATIVE PERCENT (BEAKER) 1 % 0-1 (test bgun=6419) MR, SPINE, CERVICAL, [id number] 00:54:00FINAL REPORT MR Cervical spine with and [...] Verified Date/ Time: 09/03/2018 00:54:27 Reading Location: [facility] B1 C013T Transitional Reading Room VANCOMYCIN LEVEL, [id number] 00:52:00 Test Item Value Reference Range Comments VANCOMYCIN TROUGH (BEAKER) (test oneg=126) 8.0 ug/mL 10.0-20.0 MR, MRA, NECK, WITHOUT IV [id number] 00:45:00FINAL REPORT CLINICAL HISTORY: r/o ALS TECHNIQUE: MRI of the brain utilizing axial T2, FLAIR, GRE, DWI; sagittal and coronal T1-weighted images as well as postcontrast T1 weighted images. MRA of the head utilizing 3-D ragw-nk-zlovwl technique, with 3-D reconstructions. MRA of the [...] Correlate clinically. No evidence for a major [place] proximal branch vessel occlusion. Intracranial atherosclerosis results in multifocal mild stenosis of the bilateral M2 segments of the middle cerebral arteries. 60% stenosis of the proximal left internal carotid artery by NASCET criteria No evidence of hemodynamically significant stenosis in the right cervical carotid or vertebral arteries by NASCET criteria. Signed: Ozzie Avila [facility] Verified Date/Time: 09/03/2018 00:45:16 Reading Location: [address] Transitional Reading Room , BRAIN, [id number] 00:45:00FINAL REPORT CLINICAL HISTORY: r/o ALS TECHNIQUE: MRI of the brain utilizing axial T2, FLAIR, GRE, DWI; sagittal and coronal T1-weighted images as well as postcontrast T1 weighted images. MRA of the head utilizing 3- D lujh-sy-nwiwgt technique, with 3-D reconstructions. MRA of the neck utilizing 2-D and 3-D sdxv-wd-ofgobd technique, with 3-D reconstructions. COMPARISON: None MRI [...] Correlate clinically. No evidence for a major [place] proximal branch vessel occlusion. Intracranial atherosclerosis results in multifocal mild stenosis of the bilateral M2 segments of the middle cerebral arteries. 60% stenosis of the proximal left internal carotid artery by NASCET criteria No evidence of hemodynamically significant stenosis in the right cervical carotid or vertebral arteries by NASCET criteria. Signed: Ozzie Avila Verified Date/Time: 2017 00:45:16 Reading Location: 43 [address] Transitional Reading Room MR, MRA, BRAIN, WITHOUT [id number] 00:45:00FINAL REPORT CLINICAL HISTORY: r/o ALS TECHNIQUE: MRI of the brain utilizing axial T2, FLAIR, GRE, DWI; sagittal and coronal T1-weighted images as well as postcontrast T1 weighted images. MRA of the head utilizing 3-D crrg-xi-ieyzrh technique, with 3-D reconstructions. MRA of the [...] Correlate clinically. No evidence for a major i[place] of [place] proximal branch vessel occlusion. Intracranial atherosclerosis results in multifocal mild stenosis of the bilateral M2 segments of the middle cerebral arteries. 60% stenosis of the proximal left internal carotid artery by NASCET criteria No evidence of hemodynamically significant stenosis in the right cervical carotid or vertebral arteries by NASCET criteria. [facility] Verified Date/Time: 09/03/2018 00:45:16 Reading Location: [facility] Transitional Reading Room POCT-GLUCOSE [id number] 00:34:00 Test Item Value Reference Range Comments POC-GLUCOSE METER (BEAKER) 187 mg/dL 70-110 TESTED AT [address] (test pcba=0934) [facility] [address] POCT-GLUCOSE [id number] 16:17:00 Test Item Value Reference Range Comments POC-GLUCOSE METER (BEAKER) 180 mg/dL 70-110 TESTED AT [address] (test aznu=6513) [facility] [address] BASIC METABOLIC [id number] 14:11:00 Test Item Value Reference Range Comments SODIUM (BEAKER) (test 139 meq/L 136-145 ctdr=491) POTASSIUM (BEAKER) (test 3.8 meq/L 3.5-5.1 Specimen slightly mlsb=818) hemolyzed CHLORIDE (BEAKER) (test 102 meq/L 98-107 xlea=058) CO2 (BEAKER) (test 24 meq/L 22-29 zmce=147) BLOOD UREA NITROGEN 16 mg/dL 7-21 (BEAKER) (test sngz=678) CREATININE (BEAKER) (test 0.82 mg/dL 0.57-1.25 Specimen slightly rmrc=580) hemolyzed GLUCOSE RANDOM (BEAKER) 187 mg/dL 70-105 (test qpet=667) CALCIUM (BEAKER) (test 9.4 mg/dL 8.4-10.2 sgft=191) EGFR (BEAKER) (test 94 mL/min/1.73 sq m ESTIMATED GFR IS NOT ppgw=7747) ACCURATE CREATININE CLEARANCE IN PREDICTING GLOMERULAR FILTRATION RATE. ESTIMATED GFR IS NOT APPLICABLE FOR DIALYSIS PATIENTS. MRSA [id number] 13:43:00 Test Item Value Reference Range Comments CULTURE (BEAKER) (test METHICILLIN RESISTANT 1+ Methicillin rfnl=3616) STAPHYLOCOCCUS AUREUS resistant Staphylococcus aureus Clindamycin (test code=10) Erythromycin (test code=4) Linezolid (test code=40) Oxacillin (test code=14) Rifampin (test code=43) Tetracycline (test code=2) Trimethoprim + Sulfamethoxazole (test code=47) Vancomycin (test code=13) SPUTUM CULTURE + GRAM [id number] 13:36:00 Test Item Value Reference Range Comments CULTURE (BEAKER) (test METHICILLIN RESISTANT <1+ Methicillin hsqp=7658) STAPHYLOCOCCUS AUREUS resistant Staphylococcus aureus Clindamycin (test code=10) Erythromycin (test code=4) Linezolid (test code=40) Nitrofurantoin (test code=23) Oxacillin (test code=14) Rifampin (test code=43) Tetracycline (test code=2) Trimethoprim + Sulfamethoxazole (test code=47) Vancomycin (test code=13) GRAM STAIN RESULT 4+ WBCs (BEAKER) (test inpn=5872) GRAM STAIN RESULT 0-5 epithelial cells (BEAKER) (test dqvg=467135) GRAM STAIN RESULT 1+ gram positive cocci (BEAKER) (test in pairs and clusters natd=515458) GRAM STAIN RESULT 1+ yeast (BEAKER) (test evne=546892) <1+ Normal respiratory davie presentPOCT-GLUCOSE [id number] 10:05:00 Test Item Value Reference Range Comments POC-GLUCOSE METER (BEAKER) 210 mg/dL 70-110 TESTED AT [facility] [address] (test mmov=2131) [facility] [address] BRONCHIAL CULTURE + GRAM [id number] 06:57:00 Test Item Value Reference Range Comments CULTURE (BEAKER) (test No growth qren=5458) GRAM STAIN RESULT No WBCs This is an appended report. (BEAKER) (test These results have been jnqu=4942) appended to a previously preliminary verified report. GRAM STAIN RESULT No organisms seen This is an appended report. (BEAKER) (test These results have been nrwz=66473) appended to a previously preliminary verified report. BLOOD GAS, [id number] 05:30:00 Test Item Value Reference Range Comments PH ARTERIAL (BEAKER) (test bgsd=585) 7.43 7.35-7.45 PCO2 ARTERIAL (BEAKER) (test kvtf=174) 39 mmHg 35-45 PO2 ARTERIAL (BEAKER) (test nqrb=433) 86 mmHg 80-90 O2 SATURATION ARTERIAL (BEAKER) (test emak=300) 96.7 % 96.0-97.0 HCO3 ARTERIAL (BEAKER) (test wbmu=199) 25 mmol/L 21-29 BASE EXCESS ARTERIAL (BEAKER) (test wzqb=317) 0.8 mmol/L -2.0-3.0 PATIENT TEMPERATURE (BEAKER) (test vbds=2230) 37.0 C FIO2 (BEAKER) (test pzbc=2204) 50.0 % RAD, CHEST, 1 VIEW, NON [id number] 04:24:00Reason for exam:->ETT placementShould this be performed [...] [place] Verified Date/Time: 09/02/2018 04:24:02 Reading Location: [facility] Transitional Reading Room [id number] 04:04:00 Test Item Value Reference Range Comments MAGNESIUM (BEAKER) (test mwqf=604) 1.9 mg/dL 1.6-2.6 BASIC METABOLIC [id number] 04:04:00 Test Item Value Reference Range Comments SODIUM (BEAKER) (test 139 meq/L 136-145 bgqo=575) POTASSIUM (BEAKER) (test 3.7 meq/L 3.5-5.1 hutx=913) CHLORIDE (BEAKER) (test 108 meq/L 98-107 ejcf=362) CO2 (BEAKER) (test 24 meq/L 22-29 stys=105) BLOOD UREA NITROGEN 20 mg/dL 7-21 (BEAKER) (test xrdv=388) CREATININE (BEAKER) (test 0.77 mg/dL 0.57-1.25 mohi=608) GLUCOSE RANDOM (BEAKER) 176 mg/dL 70-105 (test jfxw=956) CALCIUM (BEAKER) (test 8.6 mg/dL 8.4-10.2 uhjs=700) EGFR (BEAKER) (test 101 mL/min/1.73 sq m ESTIMATED GFR IS NOT lgsg=9426) ACCURATE CREATININE CLEARANCE IN PREDICTING GLOMERULAR FILTRATION RATE. ESTIMATED GFR IS NOT APPLICABLE FOR DIALYSIS PATIENTS. CBC W/PLT COUNT & AUTO [id number] 03:31:00 Test Item Value Reference Range Comments WHITE BLOOD CELL COUNT (BEAKER) (test ttsj=888) 8.8 K/ L 3.5-10.5 RED BLOOD CELL COUNT (BEAKER) (test acdu=506) 3.74 M/ L 4.63-6.08 HEMOGLOBIN (BEAKER) (test bbrx=231) 11.3 GM/DL 13.7-17.5 HEMATOCRIT (BEAKER) (test eajl=984) 34.2 % 40.1-51.0 MEAN CORPUSCULAR VOLUME (BEAKER) (test wtcn=681) 91.4 fL 79.0-92.2 MEAN CORPUSCULAR HEMOGLOBIN (BEAKER) (test 30.2 pg 25.7-32.2 khzu=722) MEAN CORPUSCULAR HEMOGLOBIN CONC (BEAKER) (test 33.0 GM/DL 32.3-36.5 fgpq=097) RED CELL DISTRIBUTION WIDTH (BEAKER) (test 13.5 % 11.6-14.4 sjzi=736) PLATELET COUNT (BEAKER) (test tllr=877) 210 K/CU MM 150-450 MEAN PLATELET VOLUME (BEAKER) (test akgt=203) 9.3 fL 9.4-12.4 NUCLEATED RED BLOOD CELLS (BEAKER) (test 0 /100 WBC 0-0 frnw=004) NEUTROPHILS RELATIVE PERCENT (BEAKER) (test 74 % zxih=329) LYMPHOCYTES RELATIVE PERCENT (BEAKER) (test 18 % yoce=371) MONOCYTES RELATIVE PERCENT (BEAKER) (test 6 % ztpu=924) EOSINOPHILS RELATIVE PERCENT (BEAKER) (test 1 % wqer=388) BASOPHILS RELATIVE PERCENT (BEAKER) (test 0 % gxht=265) NEUTROPHILS ABSOLUTE COUNT (BEAKER) (test 6.56 K/ L 1.78-5.38 iaqi=987) LYMPHOCYTES ABSOLUTE COUNT (BEAKER) (test 1.57 K/ L 1.32-3.57 yaov=687) MONOCYTES ABSOLUTE COUNT (BEAKER) (test 0.53 K/ L 0.30-0.82 wnpu=625) EOSINOPHILS ABSOLUTE COUNT (BEAKER) (test 0.10 K/ L 0.04-0.54 yvsb=194) BASOPHILS ABSOLUTE COUNT (BEAKER) (test 0.02 K/ L 0.01-0.08 tuoh=383) IMMATURE GRANULOCYTES-RELATIVE PERCENT (BEAKER) 1 % 0-1 (test jqoa=4473) POCT-GLUCOSE [id number] 22:19:00 Test Item Value Reference Range Comments POC-GLUCOSE METER (BEAKER) 182 mg/dL 70-110 TESTED AT [address] (test xmqk=2382) [place] [id number] VANCOMYCIN LEVEL, [id number] 21:04:00 Test Item Value Reference Range Comments VANCOMYCIN TROUGH ([facility]) (test nlmj=494) 14.4 ug/mL 10.0-20.0 [id number] 15:16:00 Test Item Value Reference Range Comments ACTIVATED CLOTTING TIME 142 sec TESTED AT [address] ([facility]) (test goht=369) [place] [address] [id number] 13:53:00 Test Item Value Reference Range Comments ACTIVATED CLOTTING TIME 164 sec TESTED AT [address] ([facility]) (test arbd=600) [place] [address] POCT-GLUCOSE [id number] 12:28:00 Test Item Value Reference Range Comments POC-GLUCOSE METER ([facility]) 217 mg/dL 70-110 TESTED AT [address] (test wptg=5204) [place] [address] [id number] 12:10:00 Test Item Value Reference Range Comments ACTIVATED CLOTTING TIME 296 sec TESTED AT [address] ([facility]) (test fljn=268) [place] [address] TROPONIN [id number] 09:22:00 Test Item Value Reference Range Comments TROPONIN I ([facility]) (test mnmb=700) 3.77 ng/mL 0.00-0.03 Troponin I (TnI) levels [...] failure, acidosis, acute neurological disease, and persistent tachyarrhythmia.[id number] 05:27:00 Test Item Value Reference Range Comments PARTIAL THROMBOPLASTIN TIME (AKER) (test 76.0 seconds 22.5-36.0 dkhn=832) [id number] 05:22:00 Test Item Value Reference Range Comments MAGNESIUM ([facility]) (test xzeo=764) 2.1 mg/dL 1.6-2.6 BASIC METABOLIC [id number] 05:22:00 Test Item Value Reference Range Comments SODIUM (BEAKER) (test 138 meq/L 136-145 bhab=181) POTASSIUM (BEAKER) (test 4.0 meq/L 3.5-5.1 uzyq=766) CHLORIDE (BEAKER) (test 108 meq/L 98-107 pesd=459) CO2 (BEAKER) (test 21 meq/L 22-29 orsf=764) BLOOD UREA NITROGEN 25 mg/dL 7-21 (BEAKER) (test zuro=341) CREATININE (BEAKER) (test 0.96 mg/dL 0.57-1.25 onwr=112) GLUCOSE RANDOM (BEAKER) 216 mg/dL 70-105 (test jvcr=937) CALCIUM (BEAKER) (test 8.4 mg/dL 8.4-10.2 crca=517) EGFR (BEAKER) (test 79 mL/min/1.73 sq m ESTIMATED GFR IS NOT zwbo=8119) ACCURATE CREATININE CLEARANCE IN PREDICTING GLOMERULAR FILTRATION RATE. ESTIMATED GFR IS NOT APPLICABLE FOR DIALYSIS PATIENTS. RAD, CHEST, 1 VIEW, NON [id number] 04:50:00Reason for exam:->respiratory failureShould this be performed [...] MDReport Verified Date/Time: 09/01/2018 04:50:17 Reading Location: [address] Reading Room Electronically signed by: BLAIR DANG M.D. on 04:50 AMCBC (HEMOGRAM ONLY)2018-09-01 04:39:00 Test Item Value Reference Range Comments WHITE BLOOD CELL COUNT (BEAKER) (test jbza=859) 9.0 K/ L 3.5-10.5 RED BLOOD CELL COUNT (BEAKER) (test muvt=190) 4.10 M/ L 4.63-6.08 HEMOGLOBIN (BEAKER) (test iaxu=901) 12.3 GM/DL 13.7-17.5 HEMATOCRIT (BEAKER) (test vlyq=278) 37.0 % 40.1-51.0 MEAN CORPUSCULAR VOLUME (BEAKER) (test okhm=432) 90.2 fL 79.0-92.2 MEAN CORPUSCULAR HEMOGLOBIN (BEAKER) (test 30.0 pg 25.7-32.2 kvzp=595) MEAN CORPUSCULAR HEMOGLOBIN CONC (BEAKER) (test 33.2 GM/DL 32.3-36.5 ubmb=993) RED CELL DISTRIBUTION WIDTH (BEAKER) (test 13.7 % 11.6-14.4 jiel=801) PLATELET COUNT (BEAKER) (test vzjw=220) 207 K/CU MM 150-450 MEAN PLATELET VOLUME (BEAKER) (test lywk=564) 9.6 fL 9.4-12.4 NUCLEATED RED BLOOD CELLS (BEAKER) (test 0 /100 WBC 0-0 zrol=376) TROPONIN [id number] 00:59:00 Test Item Value Reference Range Comments TROPONIN I (BEAKER) (test weik=787) 5.45 ng/mL 0.00-0.03 Troponin I (TnI) levels [...] acidosis, acute neurological disease, and persistent tachyarrhythmia.POCT-GLUCOSE [id number] 22:43:00 Test Item Value Reference Range Comments POC-GLUCOSE METER (BEAKER) 177 mg/dL 70-110 TESTED AT [facility] [address] (test aulp=1804) [facility] [address] TROPONIN [id number] 18:36:00 Test Item Value Reference Range Comments TROPONIN I (BEAKER) (test gvps=506) 6.48 ng/mL 0.00-0.03 Troponin I (TnI) levels [...] failure, acidosis, acute neurological disease, and persistent tachyarrhythmia.[id number] 18:35:00 Test Item Value Reference Range Comments PARTIAL THROMBOPLASTIN TIME (BEAKER) (test 66.0 seconds 22.5-36.0 izrs=890) POCT-GLUCOSE [id number] 16:40:00 Test Item Value Reference Range Comments POC-GLUCOSE METER (BEAKER) 161 mg/dL 70-110 TESTED AT [address] (test byhx=8514) [place] [id number] POCT-GLUCOSE [id number] 15:13:00 Test Item Value Reference Range Comments POC-GLUCOSE METER (BEAKER) 149 mg/dL 70-110 TESTED AT [address] (test xooy=7385) [place] [address] BODY FLUID CELL COUNT WITH [id number] 14:28:00 Test Item Value Reference Range Comments APPEARANCE FLUID (BEAKER) (test excd=355) Hazy Clear COLOR FLUID (BEAKER) (test tpjd=050) [place] Colorless, Straw RBC FLUID (BEAKER) (test nhxd=688) 280 /cu mm <=1 ADJUSTED WBC FLUID (BEAKER) (test nflm=1358) 139 /cu mm <=5 LINING CELLS (BEAKER) (test iekp=7354) 1 /cu mm <=1 NEUTROPHILS FLUID (BEAKER) (test rers=0855) 77 % LYMPHS FLUID (BEAKER) (test hyqc=553) 5 % MONO/MACROPHAGE FLUID (BEAKER) (test cppz=096) 18 % EOSINOPHILS FLUID (BEAKER) (test zsqg=780) 0 % BASO FLUID (BEAKER) (test vocj=082) 0 % CONTAINER BODY FLUID (BEAKER) (test yjpi=4181) EDTA Tube POCT-GLUCOSE [id number] 14:17:00 Test Item Value Reference Range Comments POC-GLUCOSE METER (BEAKER) 121 mg/dL 70-110 TESTED AT [address] (test uuvc=5556) [place] [id number] POCT-GLUCOSE [id number] 13:05:00 Test Item Value Reference Range Comments POC-GLUCOSE METER (BEAKER) 176 mg/dL 70-110 TESTED AT [address] (test ciin=3681) [place] [address] VANCOMYCIN LEVEL, [id number] 13:01:00 Test Item Value Reference Range Comments VANCOMYCIN RANDOM (BEAKER) (test ausz=340) 7.8 ug/mL Reference Range: No NormalsPOCT-GLUCOSE [id number] 12:08:00 Test Item Value Reference Range Comments POC-GLUCOSE METER (BEAKER) 168 mg/dL 70-110 TESTED AT [address] (test kerq=3690) [place] [address] POCT-GLUCOSE [id number] 10:54:00 Test Item Value Reference Range Comments POC-GLUCOSE METER (BEAKER) 159 mg/dL 70-110 TESTED AT [address] (test fzlh=6338) [place] [address] [id number] 10:01:00 Test Item Value Reference Range Comments PARTIAL THROMBOPLASTIN TIME (AKER) (test 44.9 seconds 22.5-36.0 pajn=010) POCT-GLUCOSE [id number] 09:31:00 Test Item Value Reference Range Comments POC-GLUCOSE METER (BEAKER) 98 mg/dL 70-110 TESTED AT [address] (test btkn=7481) [place] [address] POCT-GLUCOSE [id number] 08:31:00 Test Item Value Reference Range Comments POC-GLUCOSE METER (BEAKER) 118 mg/dL 70-110 TESTED AT [address] (test ibxo=9158) [place] [address] TROPONIN [id number] 08:28:00 Test Item Value Reference Range Comments TROPONIN I (BEAKER) (test bgqa=090) 9.00 ng/mL 0.00-0.03 Troponin I (TnI) levels [...] acidosis, acute neurological disease, and persistent tachyarrhythmia.POCT-GLUCOSE [id number] 07:13:00 Test Item Value Reference Range Comments POC-GLUCOSE METER (BEAKER) 120 mg/dL 70-110 TESTED AT [facility] [address] (test guua=2470) [facility] [address] POCT-GLUCOSE [id number] 06:10:00 Test Item Value Reference Range Comments POC-GLUCOSE METER (BEAKER) 152 mg/dL 70-110 TESTED AT [address] (test cckg=4545) [place] [id number] POCT-GLUCOSE [id number] 05:07:00 Test Item Value Reference Range Comments POC-GLUCOSE METER (BEAKER) 156 mg/dL 70-110 TESTED AT [address] (test oymw=4195) [place] [address] [id number] 04:56:00 Test Item Value Reference Range Comments MAGNESIUM (BEAKER) (test qsnm=895) 1.9 mg/dL 1.6-2.6 BASIC METABOLIC [id number] 04:56:00 Test Item Value Reference Range Comments SODIUM (BEAKER) (test 144 meq/L 136-145 dkra=771) POTASSIUM (BEAKER) (test 3.7 meq/L 3.5-5.1 rxnu=625) CHLORIDE (BEAKER) (test 109 meq/L 98-107 hork=106) CO2 (BEAKER) (test 25 meq/L 22-29 dmia=323) BLOOD UREA NITROGEN 32 mg/dL 7-21 (BEAKER) (test kssq=043) CREATININE (BEAKER) (test 1.12 mg/dL 0.57-1.25 mwfz=874) GLUCOSE RANDOM (BEAKER) 149 mg/dL 70-105 (test khmh=095) CALCIUM (BEAKER) (test 8.7 mg/dL 8.4-10.2 atbt=125) EGFR (BEAKER) (test 66 mL/min/1.73 sq m ESTIMATED GFR IS NOT dmhv=3697) ACCURATE CREATININE CLEARANCE IN PREDICTING GLOMERULAR FILTRATION RATE. ESTIMATED GFR IS NOT APPLICABLE FOR DIALYSIS PATIENTS. CBC (HEMOGRAM ONLY)2018-08-31 04:33:00 Test Item Value Reference Range Comments WHITE BLOOD CELL COUNT (BEAKER) (test wyrr=571) 11.6 K/ L 3.5-10.5 RED BLOOD CELL COUNT (BEAKER) (test owas=279) 4.00 M/ L 4.63-6.08 HEMOGLOBIN (BEAKER) (test rcpa=067) 12.0 GM/DL 13.7-17.5 HEMATOCRIT (BEAKER) (test scuq=973) 35.4 % 40.1-51.0 MEAN CORPUSCULAR VOLUME (BEAKER) (test cemd=918) 88.5 fL 79.0-92.2 MEAN CORPUSCULAR HEMOGLOBIN (BEAKER) (test 30.0 pg 25.7-32.2 eygh=546) MEAN CORPUSCULAR HEMOGLOBIN CONC (BEAKER) (test 33.9 GM/DL 32.3-36.5 tydh=806) RED CELL DISTRIBUTION WIDTH (BEAKER) (test 14.0 % 11.6-14.4 pvpt=821) PLATELET COUNT (BEAKER) (test ykji=222) 216 K/CU MM 150-450 MEAN PLATELET VOLUME (BEAKER) (test dlzl=668) 9.6 fL 9.4-12.4 NUCLEATED RED BLOOD CELLS (BEAKER) (test 0 /100 WBC 0-0 elvd=755) BLOOD GAS, [id number] 04:21:00 Test Item Value Reference Range Comments PH ARTERIAL (BEAKER) (test kuqt=064) 7.45 7.35-7.45 PCO2 ARTERIAL (BEAKER) (test hxzw=310) 38 mmHg 35-45 PO2 ARTERIAL (BEAKER) (test siwh=138) 75 mmHg 80-90 O2 SATURATION ARTERIAL (BEAKER) (test gupv=791) 95.6 % 96.0-97.0 HCO3 ARTERIAL (BEAKER) (test eosl=064) 26 mmol/L 21-29 BASE EXCESS ARTERIAL (BEAKER) (test jxbq=846) 1.6 mmol/L -2.0-3.0 PATIENT TEMPERATURE (BEAKER) (test dsxu=8932) 36.9 C FIO2 (BEAKER) (test hhor=0358) 60.0 % POCT-GLUCOSE [id number] 04:10:00 Test Item Value Reference Range Comments POC-GLUCOSE METER (BEAKER) 142 mg/dL 70-110 TESTED AT [facility] [address] (test hzjk=6145) [facility] [address] POCT-GLUCOSE [id number] 03:03:00 Test Item Value Reference Range Comments POC-GLUCOSE METER (BEAKER) 129 mg/dL 70-110 TESTED AT [address] (test kdqo=0715) [facility] [address] [id number] 02:39:00 Test Item Value Reference Range Comments PARTIAL THROMBOPLASTIN TIME (BEAKER) (test 61.7 seconds 22.5-36.0 egjr=956) POCT-GLUCOSE [id number] 02:05:00 Test Item Value Reference Range Comments POC-GLUCOSE METER (BEAKER) 108 mg/dL 70-110 TESTED AT [address] (test qpqf=1790) [facility] [address] POCT-GLUCOSE [id number] 01:28:00 Test Item Value Reference Range Comments POC-GLUCOSE METER (BEAKER) 93 mg/dL 70-110 TESTED AT [address] (test jumd=5860) [place] [id number] TROPONIN [id number] 01:04:00 Test Item Value Reference Range Comments TROPONIN I (BEAKER) (test yser=034) 11.40 ng/mL 0.00-0.03 Troponin I (TnI) levels [...] acute neurological disease, and persistent tachyarrhythmia.BLOOD GAS, [id number] 00:14:00 Test Item Value Reference Range Comments PH ARTERIAL (BEAKER) (test chcy=928) 7.50 7.35-7.45 PCO2 ARTERIAL (BEAKER) (test ndik=698) 36 mmHg 35-45 PO2 ARTERIAL (BEAKER) (test magf=309) 56 mmHg 80-90 O2 SATURATION ARTERIAL (BEAKER) (test xlai=726) 92.1 % 96.0-97.0 HCO3 ARTERIAL (BEAKER) (test mblk=125) 27 mmol/L 21-29 BASE EXCESS ARTERIAL (BEAKER) (test ormh=449) 4.0 mmol/L -2.0-3.0 PATIENT TEMPERATURE (BEAKER) (test iifp=1316) 36.7 C FIO2 (BEAKER) (test fhun=4013) 40.0 % POCT-GLUCOSE [id number] 00:10:00 Test Item Value Reference Range Comments POC-GLUCOSE METER (BEAKER) 124 mg/dL 70-110 TESTED AT [address] (test fzvb=1641) [place] [address] POCT-GLUCOSE [id number] 23:27:00 Test Item Value Reference Range Comments POC-GLUCOSE METER (BEAKER) 111 mg/dL 70-110 TESTED AT [address] (test jxap=6618) [place] [address] POCT-GLUCOSE [id number] 22:06:00 Test Item Value Reference Range Comments POC-GLUCOSE METER (BEAKER) 131 mg/dL 70-110 TESTED AT [address] (test fmiv=9992) [place] [id number] POCT-GLUCOSE [id number] 21:05:00 Test Item Value Reference Range Comments POC-GLUCOSE METER (BEAKER) 145 mg/dL 70-110 TESTED AT [address] (test wkda=1937) [place] [address] POCT-GLUCOSE [id number] 20:18:00 Test Item Value Reference Range Comments POC-GLUCOSE METER (BEAKER) 154 mg/dL 70-110 TESTED AT [address] (test kbmm=8406) [place] [address] [id number] 19:55:00 Test Item Value Reference Range Comments PARTIAL THROMBOPLASTIN TIME (BEAKER) (test 50.2 seconds 22.5-36.0 dihh=817) POCT-GLUCOSE [id number] 19:07:00 Test Item Value Reference Range Comments POC-GLUCOSE METER (BEAKER) 182 mg/dL 70-110 TESTED AT [address] (test ozig=6832) [place] [id number] POCT-GLUCOSE [id number] 18:03:00 Test Item Value Reference Range Comments POC-GLUCOSE METER (BEAKER) 201 mg/dL 70-110 TESTED AT [address] (test osgb=1747) [facility] [address] PUL PERF IMAGING, PARTIC, [id number] 17:23:00FINAL REPORT PROCEDURE: V/Q LUNG SCAN CPT CODE: 64445 INDICATION: Chest pain PA suspected high pretest [...] MDReport Verified Date/Time: 08/30/2018 17:23:41 Reading Location: [address] Reading Room POCT-GLUCOSE [id number] 17:03:00 Test Item Value Reference Range Comments POC-GLUCOSE METER (BEAKER) 230 mg/dL 70-110 TESTED AT [address] (test txao=4355) [facility] [address] POCT-GLUCOSE [id number] 16:13:00 Test Item Value Reference Range Comments POC-GLUCOSE METER (BEAKER) 255 mg/dL 70-110 TESTED AT [address] (test muhg=6488) [place] [address] TROPONIN [id number] 16:01:00 Test Item Value Reference Range Comments TROPONIN I (BEAKER) (test hbha=505) 14.68 ng/mL 0.00-0.03 Troponin I (TnI) levels [...] neurological disease, and persistent tachyarrhythmia.CT, CHEST, WITHOUT [id number] 15 :10:00FINAL REPORT HISTORY: Acute resp illness, [...] MDReport Verified Date/Time: 08/30/2018 15:10:22 Reading Location: [facility] Reading Room - [place] [address] Electronically signed by: BRYON SAINZ M.D. on08/30/2018 03:10 PMPOCT-GLUCOSE [id number] 14:57:00 Test Item Value Reference Range Comments POC-GLUCOSE METER (BEAKER) 273 mg/dL 70-110 TESTED AT [facility] [address] [facility] (test dypa=1758) [facility] [address] POCT-GLUCOSE [id number] 13:10:00 Test Item Value Reference Range Comments POC-GLUCOSE METER (BEAKER) 232 mg/dL 70-110 TESTED AT [address] (test rvgs=4253) [facility] [address] RAD, ABDOMEN/KUB, 1 VIEW [id number] 12:44:00Reason for exam:->abdominal distensionFINAL REPORT Two frontal images abdomen and pelvis. NG tube loops in the proximal stomach. There is a paucity of visible small bowel gas but no grossly apparent bowel obstruction. No evidence of free intraperitoneal air. Degenerative spine changes are noted. No concerning calcification. Signed: Mark Parsons Verified Date/Time: 08/30/2018 12: 44:32 Reading Location: [facility] Reading Room [id number] 12:08:00 Test Item Value Reference Range Comments PARTIAL THROMBOPLASTIN TIME (BEAKER) (test 45.2 seconds 22.5-36.0 eqfi=531) POCT-GLUCOSE [id number] 12:05:00 Test Item Value Reference Range Comments POC-GLUCOSE METER (BEAKER) 238 mg/dL 70-110 TESTED AT [address] (test vyvq=9513) [facility] [address] RAD, CHEST, 1 VIEW, NON [id number] 11:56:00Reason for exam:->ET tube manipulationShould this be [...] Verified Date/Time: 08/30/2018 11: 56:52 Reading Location: [facility] Radiology Reading Room POCT- GLUCOSE [id number] 11:05:00 Test Item Value Reference Range Comments POC-GLUCOSE METER (BEAKER) 275 mg/dL 70-110 TESTED AT [address] (test clji=0808) [facility] [address] LACTIC ACID, ARTERIAL, WHOLE [id number] 09:50:00 Test Item Value Reference Range Comments LACTATE BLOOD ARTERIAL (2) (BEAKER) (test 1.6 mmol/L 0.5-2.2 onkn=9836) Effective 03/02/2016: Units/Reference Range ChangeNew: 0.5-2.2 mmol/L Previous: 5 -20 mg/dLPOCT-GLUCOSE [id number] 09:44:00 Test Item Value Reference Range Comments POC-GLUCOSE METER (BEAKER) 297 mg/dL 70-110 TESTED AT [address] (test qwno=2019) [place] [address] TROPONIN [id number] 09:34:00 Test Item Value Reference Range Comments TROPONIN I (BEAKER) (test uiaj=737) 19.27 ng/mL 0.00-0.03 Troponin I (TnI) levels [...] acute neurological disease, and persistent tachyarrhythmia.OXYGEN SATURATION, [id number] 08 :54:00 Test Item Value Reference Range Comments O2 SATURATION (MEASURED) (BEAKER) (test ujjl=7725) 74.7 % POCT-GLUCOSE [id number] 08:33:00 Test Item Value Reference Range Comments POC-GLUCOSE METER (BEAKER) 345 mg/dL 70-110 TESTED AT [address] (test qizf=3871) [facility] [address] POCT-GLUCOSE [id number] 07:42:00 Test Item Value Reference Range Comments POC-GLUCOSE METER (BEAKER) 305 mg/dL 70-110 Notified MILLA CARPENTER/TESTED AT [facility] (test mgwu=4276) [address] [place] [address] POCT-GLUCOSE [id number] 07:42:00 Test Item Value Reference Range Comments POC-GLUCOSE METER (BEAKER) 309 mg/dL 70-110 TESTED AT [facility] [address] (test xkio=3260) [facility] [address] URINALYSIS W/ REFLEX URINE [id number] 07:35:00 Test Item Value Reference Range Comments COLOR (BEAKER) (test uxbo=102) Light Yellow CLARITY (BEAKER) (test aygw=822) Clear SPECIFIC GRAVITY UA (BEAKER) (test kjta=907) 1.017 1.001-1.035 PH UA (BEAKER) (test viui=287) 5.0 5.0-8.0 PROTEIN UA (BEAKER) (test xghi=672) Negative Negative GLUCOSE UA (BEAKER) (test xggr=181) >1000 mg/dL Negative KETONES UA (BEAKER) (test qnqg=361) 10 mg/dL Negative BILIRUBIN UA (BEAKER) (test zfas=761) Negative Negative BLOOD UA (BEAKER) (test hbjv=376) Negative Negative NITRITE UA (BEAKER) (test uruf=706) Negative Negative LEUKOCYTE ESTERASE UA (BEAKER) (test aofc=743) Negative Negative UROBILINOGEN UA (BEAKER) (test wnht=356) 0.2 mg/dL 0.2-1.0 RBC UA (BEAKER) (test uaaz=681) 3 /HPF WBC UA (BEAKER) (test unng=067) 2 /HPF MUCUS (BEAKER) (test dnpd=6040) Rare AMORPHOUS CRYSTALS (BEAKER) (test xegq=4691) Rare SOURCE(BEAKER) (test spdl=5817) [id number] 05:48:00 Test Item Value Reference Range Comments PROCALCITONIN (BEAKER) (test arov=4869) 0.26 ng/mL <0.05 SEPSIS RISK (ng/mL)Low: 0.05-0.50Intermediate: 0.51-2.00High: & gt;=2.01LACTIC ACID, ARTERIAL, WHOLE [id number] 04:44:00 Test Item Value Reference Range Comments LACTATE BLOOD ARTERIAL (2) 1.7 mmol/L 0.5-2.2 Specimen slightly hemolyzed (BEAKER) (test uefn=1411) Effective 03/02/2016: Units/Reference Range ChangeNew: 0.5-2.2 mmol/L Previous: 5 -20 mg/dLBLOOD GAS, [id number] 04:42:00 Test Item Value Reference Range Comments PH ARTERIAL (BEAKER) (test xigy=810) 7.40 7.35-7.45 PCO2 ARTERIAL (BEAKER) (test ixxx=994) 35 mmHg 35-45 PO2 ARTERIAL (BEAKER) (test heak=435) 101 mmHg 80-90 O2 SATURATION ARTERIAL (BEAKER) (test dirl=442) 97.7 % 96.0-97.0 HCO3 ARTERIAL (BEAKER) (test mqxn=385) 21 mmol/L 21-29 BASE EXCESS ARTERIAL (BEAKER) (test zrku=130) -3.0 mmol/L -2.0-3.0 PATIENT TEMPERATURE (BEAKER) (test snrt=0041) 36.9 C FIO2 (BEAKER) (test ywgc=6995) 50.0 % [id number] 04:40:00 Test Item Value Reference Range Comments POTASSIUM (BEAKER) (test ibdj=103) 4.3 meq/L 3.5-5.1 [id number] 04:40:00 Test Item Value Reference Range Comments GLUCOSE RANDOM (BEAKER) (test yhpp=507) 365 mg/dL 70-105 POCT-GLUCOSE [id number] 04:37:00 Test Item Value Reference Range Comments POC-GLUCOSE METER (BEAKER) 370 mg/dL 70-110 TESTED AT [facility] [address] [facility] (test xefz=8310) [place] [address] [id number] 04:34:00 Test Item Value Reference Range Comments PARTIAL THROMBOPLASTIN TIME (BEAKER) (test 30.2 seconds 22.5-36.0 sxrx=392) Prior to initiating heparinPLATELET [id number] 04:15:00 Test Item Value Reference Range Comments PLATELET COUNT (BEAKER) (test fbfv=382) 284 K/CU MM 150-450 Baseline and daily starting prior to initiation of heparin infusionCB ( HEMOGRAM ONLY)2018-08-30 04:15:00 Test Item Value Reference Range Comments WHITE BLOOD CELL COUNT (BEAKER) (test krzy=718) 16.6 K/ L 3.5-10.5 RED BLOOD CELL COUNT (BEAKER) (test mzwu=315) 4.25 M/ L 4.63-6.08 HEMOGLOBIN (BEAKER) (test dpdx=529) 13.1 GM/DL 13.7-17.5 HEMATOCRIT (BEAKER) (test gbsu=434) 37.6 % 40.1-51.0 MEAN CORPUSCULAR VOLUME (BEAKER) (test vtyg=032) 88.5 fL 79.0-92.2 MEAN CORPUSCULAR HEMOGLOBIN (BEAKER) (test 30.8 pg 25.7-32.2 eguu=343) MEAN CORPUSCULAR HEMOGLOBIN CONC (BEAKER) (test 34.8 GM/DL 32.3-36.5 xetu=011) RED CELL DISTRIBUTION WIDTH (BEAKER) (test 13.6 % 11.6-14.4 kmcy=121) PLATELET COUNT (BEAKER) (test geir=074) 284 K/CU MM 150-450 MEAN PLATELET VOLUME (BEAKER) (test zeuz=178) 9.6 fL 9.4-12.4 NUCLEATED RED BLOOD CELLS (BEAKER) (test 0 /100 WBC 0-0 addh=022) TSH/FREE T4 IF [id number] 03:00:00 Test Item Value Reference Range Comments THYROID STIMULATING HORMONE (BEAKER) (test 0.92 uIU/mL 0.35-4.94 svlk=498) TROPONIN [id number] 02:51:00 Test Item Value Reference Range Comments TROPONIN I (BEAKER) (test pmga=696) 24.37 ng/mL 0.00-0.03 Troponin I (TnI) levels [...] Range Comments B-TYPE NATRIURETIC PEPTIDE (BEAKER) (test ohbd=616) 63 pg/mL 0-100 [id number] 02:44:00 Test Item Value Reference Range Comments PARTIAL THROMBOPLASTIN TIME (BEAKER) (test 28.2 seconds 22.5-36.0 znul=633) Prior to initiating heparinCBC W/PLT COUNT & AUTO [id number] 02: 41:00 Test Item Value Reference Range Comments WHITE BLOOD CELL COUNT (BEAKER) (test prdw=591) 13.4 K/ L 3.5-10.5 RED BLOOD CELL COUNT (BEAKER) (test xevd=894) 4.05 M/ L 4.63-6.08 HEMOGLOBIN (BEAKER) (test ozxz=276) 12.6 GM/DL 13.7-17.5 HEMATOCRIT (BEAKER) (test ewzu=210) 36.4 % 40.1-51.0 MEAN CORPUSCULAR VOLUME (BEAKER) (test raun=520) 89.9 fL 79.0-92.2 MEAN CORPUSCULAR HEMOGLOBIN (BEAKER) (test 31.1 pg 25.7-32.2 claa=632) MEAN CORPUSCULAR HEMOGLOBIN CONC (BEAKER) (test 34.6 GM/DL 32.3-36.5 uurv=689) RED CELL DISTRIBUTION WIDTH (BEAKER) (test 13.7 % 11.6-14.4 vhnp=343) PLATELET COUNT (BEAKER) (test tiyp=813) 223 K/CU MM 150-450 MEAN PLATELET VOLUME (BEAKER) (test iunz=254) 9.9 fL 9.4-12.4 NUCLEATED RED BLOOD CELLS (BEAKER) (test 0 /100 WBC 0-0 atgt=077) NEUTROPHILS RELATIVE PERCENT (BEAKER) (test 94 % danv=538) LYMPHOCYTES RELATIVE PERCENT (BEAKER) (test 5 % rxgn=080) MONOCYTES RELATIVE PERCENT (BEAKER) (test 1 % gphz=993) EOSINOPHILS RELATIVE PERCENT (BEAKER) (test 0 % jigw=574) BASOPHILS RELATIVE PERCENT (BEAKER) (test 0 % iurt=881) NEUTROPHILS ABSOLUTE COUNT (BEAKER) (test 12.52 K/ L 1.78-5.38 zetx=608) LYMPHOCYTES ABSOLUTE COUNT (BEAKER) (test 0.61 K/ L 1.32-3.57 afdq=843) MONOCYTES ABSOLUTE COUNT (BEAKER) (test 0.12 K/ L 0.30-0.82 rcqm=215) EOSINOPHILS ABSOLUTE COUNT (BEAKER) (test 0.00 K/ L 0.04-0.54 fuge=170) BASOPHILS ABSOLUTE COUNT (BEAKER) (test 0.01 K/ L 0.01-0.08 ntfa=677) IMMATURE GRANULOCYTES-RELATIVE PERCENT (BEAKER) 1 % 0-1 (test bqif=6960) [id number] 02:39:00 Test Item Value Reference Range Comments LIPASE (BEAKER) (test szrn=578) 14 U/L 8-78 COMPREHENSIVE METABOLIC [id number] 02:39:00 Test Item Value Reference Range Comments TOTAL PROTEIN (BEAKER) 6.2 gm/dL 6.0-8.3 (test uypw=714) ALBUMIN (BEAKER) (test 3.5 g/dL 3.5-5.0 rzug=0958) ALKALINE PHOSPHATASE 31 U/L 40-150 (BEAKER) (test qjcs=959) BILIRUBIN TOTAL (BEAKER) 0.5 mg/dL 0.2-1.2 (test yhvt=292) SODIUM (BEAKER) (test 138 meq/L 136-145 dmbr=023) POTASSIUM (BEAKER) (test 4.3 meq/L 3.5-5.1 sqwi=751) CHLORIDE (BEAKER) (test 104 meq/L 98-107 rdlx=090) CO2 (BEAKER) (test 22 meq/L 22-29 ybzx=151) BLOOD UREA NITROGEN 27 mg/dL 7-21 (BEAKER) (test kvtc=572) CREATININE (BEAKER) (test 1.49 mg/dL 0.57-1.25 shgp=267) GLUCOSE RANDOM (BEAKER) 339 mg/dL 70-105 (test mooc=906) CALCIUM (BEAKER) (test 8.8 mg/dL 8.4-10.2 ljom=882) AST (SGOT) (BEAKER) (test 91 U/L 5-34 sfwp=493) ALT (SGPT) (BEAKER) (test 21 U/L 6-55 abdi=337) EGFR (BEAKER) (test 47 mL/min/1.73 sq m ESTIMATED GFR IS NOT zqmd=4248) ACCURATE CREATININE CLEARANCE IN PREDICTING GLOMERULAR FILTRATION RATE. ESTIMATED GFR IS NOT APPLICABLE FOR DIALYSIS PATIENTS. [id number] 02:39:00 Test Item Value Reference Range Comments MAGNESIUM (BEAKER) (test ewvw=595) 1.9 mg/dL 1.6-2.6 LACTIC ACID, VENOUS, WHOLE [id number] 02:34:00 Test Item Value Reference Range Comments LACTATE BLOOD VENOUS (2) 2.8 mmol/L 0.5-2.2 Specimen slightly hemolyzed (BEAKER) (test poqi=2771) Effective 03/02/2016: Units/Reference Range ChangeNew: 0.5-2.2 mmol/L Previous: 5 -20 mg/dLPLATELET [id number] 02:14:00 Test Item Value Reference Range Comments PLATELET COUNT (BEAKER) (test cxfi=161) 223 K/CU MM 150-450 RAD, CHEST, 1 VIEW, NON [id number] 01:50:00Reason for exam:->lines placement Should this be [...] Verified Date/Time : 08/30/2018 01:50:34 Reading Location: [address] Transitional Reading Room
[2019-11-27 16:31] LABS: Absolute Lymphocytes (CBC) 1.9 K/uL (0.7-4.9); Basophils % 1.1 % (0-1.3); Hematocrit 44.1 % (39.6-49.0); Lymphocytes % 12.7 % (15.3-44.8); MPV 8.3 fL (7.6-11.3)
[2019-11-27 16:34] LABS: Protime INR 1.04
--- NOTE | 2019-11-27 16:45 | RAD REPORT ---
EXAM DESCRIPTION: CT - Chest Abd Pelvis Wo Con - 11/27/2019 4:34 pm CLINICAL HISTORY: Chest and abdomen pain. DYSPNEA COMPARISON: Chest Angio dated 06/10/2018; Chest Single View dated 11/27/2019 TECHNIQUE: A limited noncontrast study was performed. All CT scans are performed using dose optimization technique as appropriate and may include automated exposure control or mA/KV adjustment according to patient size. FINDINGS: The lungs are mildly emphysematous with linear subsegmental atelectasis in the right lung base.No pleural or pericardial effusion.No intrathoracic adenopathy.Sternotomy wires are present. Thy roid gland is normal in size. The liver, spleen, pancreas, adrenal glands and kidneys are within normal limits. Cholecystectomy cli ps. No bowel obstruction, free air, free fluid or abscess. Normal appendix. Sigmoid diverticulosis coli i s present without diverticulitis. No pathologic lymphadenopathy in the abdomen or pelvis. Small fat c ontaining umbilical hernia. Moderate lower lumbar degenerative changes. IMPRESSION: No acute abnormality is detected.
[2019-11-27 16:46] LABS: Arterial Blood Carboxyhemoglob 1.5 % (0-1.5); Blood Gas Oxyhemoglobin 90.5 % (94-97); Blood O2 Saturation 92.6 % (92-98.5)
--- NOTE | 2019-11-27 16:46 | RAD REPORT ---
EXAM DESCRIPTION: RAD - Chest Single View - 11/27/2019 4:35 pm CLINICAL HISTORY: DYSPNEA Chest pain. COMPARISON: Chest Single View dated 07/08/2019; Chest Single View dated 07/07/2019; Chest Single View da zakia 06/26/2019; Chest Single View dated 04/01/2019; Chest Abd Pelvis Wo Con dated 11/27/2019 FINDINGS: Portable technique limits examination quality. The lungs are underinflated with atelectasis in the lung bases. The heart is upper limit normal in si ze. Sternotomy wires noted.
[2019-11-27] MEDS ORDERED: NOREPINEPHRINE 4mg/D5W 250mL 4 MG/250 ML BAG IV ONE ×2 (16:47→22:15)
[2019-11-27 16:54] LABS: Potassium 4.6 mmol/L (3.5-5.1)
[2019-11-27 16:57] LABS: ALT/SGPT 57 U/L (12-78); AST/SGOT 265 U/L (15-37); Albumin 3.6 g/dL (3.4-5.0); Alkaline Phosphatase 97 U/L (45-117); Bilirubin Direct 0.1 mg/dL (0-0.2); Bilirubin Total 0.4 mg/dL (0.2-1.0); Lipase 292 U/L (73-393); Magnesium 2.2 mg/dL (1.8-2.4); NT PRO-BNP 402 pg/mL (<125); Protein, Total 7.9 g/dL (6.4-8.2); Troponin (Emerg Dept Use Only) < 0.02 ng/mL (0.0-0.045)
--- NOTE | 2019-11-27 17:16 | ER ---
Nurse's Notes [facility] Name: Asim Burnett Age: 64 yrs Sex: Male : 1955 Arrival Date: 11/27/2019 Time: 15:37 Bed 4 Private MD: Diagnosis: Diarrhea, unspecified;Weakness;Severe sepsis with septic shock;Hypotension;Bradycardia, unspecified;Type 1 diabetes mellitus;Acute kidney failure;Elevated white blood cell count Presentation: 11/27 16:05 Presenting complaint: states: pt has had diarrhea since Monday 2-3 episodes per iw day, Monday pt started feeling very weak, now he can hardly stand, pt feels like his sugar is low, II=766, BP=59/45. 16:17 Transition of care: patient was not received from another setting of care. Onset of iw symptoms was November 24, 2019. Risk Assessment: Do you want to hurt yourself or someone else? Patient reports no desire to harm self or others. Initial Sepsis Screen: Does the patient meet any 2 criteria? No. Patient's initial sepsis screen is negative. Does the patient have a suspected source of infection? No. Patient's initial sepsis screen is negative. Care prior to arrival: None. 16:17 Method Of Arrival: Wheelchair iw 16:17 Acuity: ORACIO 1 iw Historical: - Allergies: 16:30 Ibuprofen; iw - Home Meds: 16:30 Ventolin Rotahaler/Rotacaps Inhl every 6 hours [Active]; Abilify 10 mg oral tab once iw daily [Active]; aspirin 81 mg Oral chew 1 tab once daily [Active]; atorvastatin 20 mg Oral tab once daily [Active]; bumetanide 2 mg Oral tab 1 tab 2 times per day [Active]; clonazepam 1 mg Oral tab 2 times per day [Active]; clopidogrel 75 mg Oral tab 1 tab once daily [Active]; Jardiance 25 mg oral tab 1 tab once daily [Active]; Breo Ellipta 100-25 mcg/dose inhalation dsdv 1 puff once daily [Active]; furosemide 20 mg Oral tab 1 tab once daily [Active]; gabapentin 600 mg oral tab 3 times per day [Active]; Apidra 100 unit/mL subcutaneous soln after meals [Active]; lisinopril 5 mg Oral tab 1 tab once daily [Active]; metformin 1,000 mg Oral tab 1 tab 2 times per day [Active]; metoprolol tartrate 50 mg Oral tab 1 tab 2 times per day [Active]; omeprazole 40 mg Oral cpDR 1 cap 2 times per day [Active]; spironolactone 25 mg Oral tab 1 tab 2 times per day [Active]; trazodone 150 mg oral tab nightly [Active]; - PMHx: 16:30 Anxiety; cardiac stent; COPD; Depression; Diabetes - IDDM; High Cholesterol; iw Hypertension; Myocardial infarction; ADD/ADHD; - PSHx: 16:30 Heart stents; CABG; iw - Immunization history:: Adult Immunizations up to date. - Coronavirus screen:: The patient has NOT traveled to [place], [place], or [place] in the past 14 days. Proceed with normal triage process as indicated. - Family history:: not pertinent. - Social history:: Smoking status: Patient denies any tobacco usage or history of. - Ebola Screening: : Patient negative for fever greater than or equal to 101.5 degrees Fahrenheit, and additional compatible Ebola Virus Disease symptoms Patient denies exposure to infectious person Patient denies travel to an Ebola-affected area in the 21 days before illness onset No symptoms or risks identified at this time. Screenin:15 Abuse screen: Denies threats or abuse. Denies injuries from another. Nutritional sv screening: No deficits noted. Tuberculosis screening: No symptoms or risk factors identified. Fall Risk None identified. Assessment: 16:15 General: Appears in no apparent distress. uncomfortable, obese, Behavior is calm, sv cooperative, appropriate for age. Pain: Denies pain. Neuro: Level of Consciousness is awake, obeys commands, lethargic, Oriented to person, place, time, situation, Reports weakness in "all over". Cardiovascular: Pulses are palpable in right radial artery and left radial artery Rhythm is sinus rhythm. Respiratory: Airway is patent Respiratory effort is even, unlabored, Respiratory pattern is regular, symmetrical. GI: Abdomen is round obese, Reports diarrhea. Derm: Skin is normal, Skin temperature is cool. Musculoskeletal: Range of motion: intact in all extremities, Swelling present in right leg and left leg. 16:41 Reassessment: Delicia BHAKTA at the bedside to obtain ABG. sv 17:00 Reassessment: Patient appears in no apparent distress at this time. No changes from sv previously documented assessment. Patient and/or family updated on plan of care and expected duration. Pain level reassessed. Patient is alert, oriented x 3, equal unlabored respirations, skin warm/dry/pink. 17:30 Reassessment: Patient appears in no apparent distress at this time. Patient and/or sv family updated on plan of care and expected duration. Pain level reassessed. Patient is alert, oriented x 3, equal unlabored respirations, skin warm/dry/pink. Patient states feeling better. Patient states symptoms have improved. 17:47 Reassessment: Dr Tineo at the bedside. sv 18:34 Reassessment: Patient appears in no apparent distress at this time. Patient and/or sv family updated on plan of care and expected duration. Pain level reassessed. Patient is alert, oriented x 3, equal unlabored respirations, skin warm/dry/pink. Patient states feeling better. Patient states symptoms have improved. 19:21 Reassessment: Patient appears in no apparent distress at this time. Patient and/or rv family updated on plan of care and expected duration. Pain level reassessed. Patient is alert, oriented x 3, equal unlabored respirations, skin warm/dry/pink. PATIENT IS ALERT AND ORIENTED, GCS 15. WITH TWO PERIPHERALS LINE AND A CENTRAL LINE, RECEIVED FROM THE MORNING SHIFT. FLUSHING FREELY. WITH PERSON CATH IN PLACE. PATIENT UPDATED ON THE PLAN OF CARE. RECHEKED VITAL SIGNS AND RECORDED. REPORT GIVEN TO JULIA LOYOLA OF ICU. Vital Signs: 16:05 BP 54 / 46; Pulse 74; Resp 16; Temp 97.3; Pulse Ox 96% on R/A; Weight 96.62 kg (R); iw 16:32 BP 62 / 48; Pulse 75; Resp 16; Pulse Ox 96% on R/A; iw 16:42 BP 59 / 43; Pulse 77 MON; Resp 30; Pulse Ox 97% ; sv 16:47 BP 66 / 49; Pulse 75; Resp 17; Pulse Ox 98% ; sv 17:00 BP 63 / 44; Pulse 72; Resp 15; Pulse Ox 100% ; sv 17:10 BP 146 / 72; Pulse 36 MON; Resp 17; Pulse Ox 100% ; sv 17:15 BP 137 / 69; Pulse 67; Resp 15; Pulse Ox 100% ; sv 17:30 BP 131 / 68; Pulse 73 MON; Resp 17; Pulse Ox 100% ; sv 17:45 BP 124 / 65; Pulse 74; Resp 22; Pulse Ox 100% ; sv 18:00 BP 101 / 61; Pulse 74; Resp 21; Pulse Ox 100% ; sv 18:15 BP 102 / 58; Pulse 74; Resp 21; Pulse Ox 100% ; sv 18:30 BP 106 / 66; Pulse 75; Resp 20; Pulse Ox 100% ; sv 18:45 BP 103 / 60; Pulse 76; Resp 17; Pulse Ox 100% on R/A; rv 19:00 BP 110 / 65; Pulse 75; Resp 19; Pulse Ox 100% on R/A; rv 19:19 BP 96 / 62; Pulse 75; Resp 27; Pulse Ox 100% on R/A; rv 16:42 Sinus Rhythm sv 17:10 Sinus bradycardia sv 17:30 Sinus Rhythm sv 17:10 Reji SCHWARZ at bedside when pt's HR dropped. Continue meds as ordered and monitor pt. sv ED Course: 15:37 Patient arrived in ED. as 15:53 Heladio Veras MD is Attending Physician. bridger 16:15 Patient has correct armband on for positive identification. Placed in gown. Bed in low sv position. Call light in reach. Side rails up X2. Adult w/ patient. patient monitor on. Pulse ox on. NIBP on. Warm blanket given. Head of bed elevated. 16:15 Inserted saline lock: 22 gauge in right forearm, using aseptic technique. Blood iw collected. 16:15 Inserted saline lock: 18 gauge in left antecubital area, using aseptic technique. IV iw inserted by MILLA Llanes. 16:16 Renea Mariano, MILLA is Primary Nurse. iw 16:21 Triage completed. iw 16:23 Shraddha Weir, MILLA is Primary Nurse. sv 16:[address] via stretcher. sv 16:31 Arm band placed on. iw 16:34 CT Chest Abdomen Pelvis W/O Contrast: no iv no oral In Process Unspecified. EDMS 16:35 XRAY Chest (1 view) In Process Unspecified. EDMS 16:41 Patient moved back from CT. sv 17:00 Assisted provider with central line placement. Set up central line tray. Triple lumen sv line placed in right femoral. Line placed by Reji SCHWARZ Placement verified by blood return, Dressed with Tegaderm, Patient tolerated well. Before procedure, did Practitioner(s) obtain informed consent? No. Patient \\T\\ family education about procedure, CLABSI prevention and S/S of infection? Yes. Time-out/Briefing performed prior to start of procedure? Yes. Was handwashing/sanitizing done immediately prior to procedure? Yes. Was patient positioned to in a way to prevent air embolism? Yes. Was procedure site sterilized? Yes, with chlorhexidine. Was the site allowed to dry? Yes. Was local anesthetic and/or sedation utilized? Yes. During the procedure, did the Practitioner(s) maintain a sterile field? Yes. Were unused ports clamped during insertion? Yes. Was a 2nd qualified MD obtained after 3 unsuccessful insertion attempts? N/A. Was blood aspirated from each lumen? Yes. After the procedure, did the Practitioner(s) clean the site and apply a sterile dressing? Yes. 17:08 Cleaned of incontinence. sv 17:15 Marco Antonio Tineo is Hospitalizing Provider. bridger 17:15 One-on-one care X 60 minutes. sv 17:15 Person cath inserted, using sterile technique, 16 Fr., by ED staff, balloon inflated, to sv gravity drainage, urine specimen collected. returned julieth urine. Patient tolerated well. 17:50 Awaiting bed assignment. sv 19:08 Primary Nurse role handed off by Shraddha Weir RN sv 19:08 Report given to Andrew LOYOLA and Brian LOYOLA. sv 19:10 Andrew Gandhi RN is Primary Nurse. ao 19:29 Patient admitted, IV remains in place. rv Administered Medications: 16:18 Drug: NS 0.9% 1000 ml Route: IV; Rate: 1 bolus; Site: left antecubital; sv 17:00 Follow up: Response: No adverse reaction; IV Status: Completed infusion; IV Intake: sv 1000ml 17:00 Drug: Levophed (4 mg/250 mL D5W 4 mcg/min {Note: started at 10 mcg/min.} Route: IV; sv Rate: calculated rate; Site: left antecubital; 17:33 Follow up: IV infusion moved to the right femoral CL sv 19:29 Follow up: IV Status: Infusion continued upon transfer rv 17:34 Drug: Zosyn 3.375 grams Route: IVPB; Infused Over: 60 mins; Site: right femoral; sv 18:32 Follow up: Response: No adverse reaction; IV Status: Completed infusion; IV Intake: sv 100ml 17:34 Drug: Solu-CORTEF 100 mg Route: IVP; Site: right femoral; sv 18:28 Follow up: Response: No adverse reaction sv 17:34 Drug: NS 0.9% 1000 ml Route: IV; Rate: 1 bolus; Site: right femoral; sv 19:30 Follow up: IV Status: Infusion continued upon admission rv 17:34 Drug: Glucagon 1 mg Route: IVP; Site: right femoral; sv 18:28 Follow up: Response: No adverse reaction sv 17:35 Drug: ProTONIX 40 mg Route: IVP; Site: right femoral; sv 18:28 Follow up: Response: No adverse reaction sv 18:33 Drug: vancoMYCIN 1 grams Route: IVPB; Infused Over: 2 hrs; Site: right femoral; sv 19:30 Follow up: IV Status: Infusion continued upon admission rv 19:00 Drug: NS 0.9% 1000 ml Route: IV; Rate: 1 bolus; Site: right forearm; rv 19:31 Follow up: IV Status: Infusion continued upon admission rv Point of Care Testing: Blood Glucose: 16:05 Blood Glucose: 390 mg/dL; iw Ranges: Intake: 17:00 IV: 1000ml; Total: 1000ml. sv 18:32 IV: 100ml; Total: 1100ml. sv Outcome: 17:16 Decision to Hospitalize by Provider. bridger 19:28 Admitted to ICU accompanied by nurse, accompanied by tech, via stretcher, room 6, with rv oxygen, on monitor, with chart, Report called to JULIA LOYOLA 19:28 Condition: stable 19:28 Discharge instructions given to patient, Instructed on the need for admit, Demonstrated understanding of instructions. 19:31 Patient left the ED. rv Signatures: Dispatcher [employer] Shraddha Good RN RN sv Anderson, Corey, MD MD cha Martinez, Amelia as Williams, Irene, RN RN iw Ortiz, Alex, RN RN ao Vicente, Ronaldo, RN RN rv Corrections: (The following items were deleted from the chart) 16:21 16:17 Presenting complaint: states: pt has had diarrhea since Monday 2-3 iw episodes per day, Monday pt started feeling very weak, now he can hardly stand, pt feels like his sugar is low, DT=890, BP=59/45 iw 16:49 16:05 BP 54 / 46; Pulse 74bpm; Resp 16bpm; Pulse Ox 96% RA; Temp 97.3F; iw iw 17:39 16:42 BP 59 / 43; Pulse 77bpm; Resp 30bpm; Pulse Ox 97%; sv sv
--- NOTE | 2019-11-27 17:17 | EDPHYS ---
Physician Documentation [facility] Name: Asim Burnett Age: 64 yrs Sex: Male : 1955 Arrival Date: 11/27/2019 Time: 15:37 Bed 4 Private MD: ED Physician Heladio Veras HPI: 11/27 16:17 This 64 yrs old Male presents to ER via Unassigned with complaints of bridger Diarrhea, General Weakness. 16:17 The patient presents to the emergency department with nausea, vomiting, diarrhea, that bridger is intermittent, abdominal pain. Onset: The symptoms/episode began/occurred 3 day(s) ago. Possible causes: unknown. The symptoms are aggravated by nothing. The symptoms are alleviated by nothing. Severity of symptoms: At their worst the symptoms were mild moderate in the emergency department the symptoms are unchanged. Historical: - Allergies: 16:30 Ibuprofen; iw - Home Meds: 16:30 Ventolin Rotahaler/Rotacaps Inhl every 6 hours [Active]; Abilify 10 mg oral tab once iw daily [Active]; aspirin 81 mg Oral chew 1 tab once daily [Active]; atorvastatin 20 mg Oral tab once daily [Active]; bumetanide 2 mg Oral tab 1 tab 2 times per day [Active]; clonazepam 1 mg Oral tab 2 times per day [Active]; clopidogrel 75 mg Oral tab 1 tab once daily [Active]; Jardiance 25 mg oral tab 1 tab once daily [Active]; Breo Ellipta 100-25 mcg/dose inhalation dsdv 1 puff once daily [Active]; furosemide 20 mg Oral tab 1 tab once daily [Active]; gabapentin 600 mg oral tab 3 times per day [Active]; Apidra 100 unit/mL subcutaneous soln after meals [Active]; lisinopril 5 mg Oral tab 1 tab once daily [Active]; metformin 1,000 mg Oral tab 1 tab 2 times per day [Active]; metoprolol tartrate 50 mg Oral tab 1 tab 2 times per day [Active]; omeprazole 40 mg Oral cpDR 1 cap 2 times per day [Active]; spironolactone 25 mg Oral tab 1 tab 2 times per day [Active]; trazodone 150 mg oral tab nightly [Active]; - PMHx: 16:30 Anxiety; cardiac stent; COPD; Depression; Diabetes - IDDM; High Cholesterol; iw Hypertension; Myocardial infarction; ADD/ADHD; - PSHx: 16:30 Heart stents; CABG; iw - Immunization history:: Adult Immunizations up to date. - Coronavirus screen:: The patient has NOT traveled to [place], [place], or [place] in the past 14 days. Proceed with normal triage process as indicated. - Family history:: not pertinent. - Social history:: Smoking status: Patient denies any tobacco usage or history of. - Ebola Screening: : Patient negative for fever greater than or equal to 101.5 degrees Fahrenheit, and additional compatible Ebola Virus Disease symptoms Patient denies exposure to infectious person Patient denies travel to an Ebola-affected area in the 21 days before illness onset No symptoms or risks identified at this time. ROS: 16:17 Eyes: Negative for injury, pain, redness, and discharge, ENT: Negative for injury, bridger pain, and discharge, Neck: Negative for injury, pain, and swelling, Cardiovascular: Negative for chest pain, palpitations, and edema, Respiratory: Negative for shortness of breath, cough, wheezing, and pleuritic chest pain, Back: Negative for injury and pain, : Negative for injury, bleeding, discharge, and swelling, MS/Extremity: Negative for injury and deformity, Skin: Negative for injury, rash, and discoloration, Neuro: Negative for headache, weakness, numbness, tingling, and seizure, Psych: Negative for depression, anxiety, suicide ideation, homicidal ideation, and hallucinations, Allergy/Immunology: Negative for hives, rash, and allergies, Endocrine: Negative for neck swelling, polydipsia, polyuria, polyphagia, and marked weight changes, Hematologic/Lymphatic: Negative for swollen nodes, abnormal bleeding, and unusual bruising. 16:17 Constitutional: Positive for body aches, fatigue, malaise. 16:17 Respiratory: Positive for shortness of breath, at rest. 16:17 Abdomen/GI: Positive for abdominal pain, diarrhea. Exam: 16:17 Head/Face: Normocephalic, atraumatic. Eyes: Pupils equal round and reactive to light, bridger extra-ocular motions intact. Lids and lashes normal. Conjunctiva and sclera are non-icteric and not injected. Cornea within normal limits. Periorbital areas with no swelling, redness, or edema. ENT: Nares patent. No nasal discharge, no septal abnormalities noted. Tympanic membranes are normal and external auditory canals are clear. Oropharynx with no redness, swelling, or masses, exudates, or evidence of obstruction, uvula midline. Mucous membranes moist. Neck: Trachea midline, no thyromegaly or masses palpated, and no cervical lymphadenopathy. Supple, full range of motion without nuchal rigidity, or vertebral point tenderness. No Meningismus. Chest/axilla: Normal chest wall appearance and motion. Nontender with no deformity. No lesions are appreciated. Cardiovascular: Regular rate and rhythm with a normal S1 and S2. No gallops, murmurs, or rubs. Normal PMI, no JVD. No pulse deficits. Abdomen/GI: Soft, non-tender, with normal bowel sounds. No distension or tympany. No guarding or rebound. No evidence of tenderness throughout. Back: No spinal tenderness. No costovertebral tenderness. Full range of motion. Male : Normal genitalia with no discharge or lesions. Skin: Warm, dry with normal turgor. Normal color with no rashes, no lesions, and no evidence of cellulitis. Psych: Awake, alert, with orientation to person, place and time. Behavior, mood, and affect are within normal limits. 16:17 Respiratory: the patient does not display signs of respiratory distress, Respirations: normal, no acute changes, Breath sounds: decreased breath sounds, Respiratory rate: 18 16:17 Neuro: Orientation: to person, place, time, situation, Mentation: slow to respond, Memory: unable to test, Cranial nerves: no acute changes, Cerebellar function: is grossly normal based on the patient's age, no acute changes, Motor: moves all fours, Sensation: no obvious gross deficits, Gait: not tested. seizure activity, is not displayed by the patient. Vital Signs: 16:05 BP 54 / 46; Pulse 74; Resp 16; Temp 97.3; Pulse Ox 96% on R/A; Weight 96.62 kg (R); iw 16:32 BP 62 / 48; Pulse 75; Resp 16; Pulse Ox 96% on R/A; iw 16:42 BP 59 / 43; Pulse 77 MON; Resp 30; Pulse Ox 97% ; sv 16:47 BP 66 / 49; Pulse 75; Resp 17; Pulse Ox 98% ; sv 17:00 BP 63 / 44; Pulse 72; Resp 15; Pulse Ox 100% ; sv 17:10 BP 146 / 72; Pulse 36 MON; Resp 17; Pulse Ox 100% ; sv 17:15 BP 137 / 69; Pulse 67; Resp 15; Pulse Ox 100% ; sv 17:30 BP 131 / 68; Pulse 73 MON; Resp 17; Pulse Ox 100% ; sv 17:45 BP 124 / 65; Pulse 74; Resp 22; Pulse Ox 100% ; sv 18:00 BP 101 / 61; Pulse 74; Resp 21; Pulse Ox 100% ; sv 18:15 BP 102 / 58; Pulse 74; Resp 21; Pulse Ox 100% ; sv 18:30 BP 106 / 66; Pulse 75; Resp 20; Pulse Ox 100% ; sv 18:45 BP 103 / 60; Pulse 76; Resp 17; Pulse Ox 100% on R/A; rv 19:00 BP 110 / 65; Pulse 75; Resp 19; Pulse Ox 100% on R/A; rv 19:19 BP 96 / 62; Pulse 75; Resp 27; Pulse Ox 100% on R/A; rv 16:42 Sinus Rhythm sv 17:10 Sinus bradycardia sv 17:30 Sinus Rhythm sv 17:10 Reji PA at bedside when pt's HR dropped. Continue meds as ordered and monitor pt. sv Procedures: 17:09 Central Line: the site was prepped with Betadine, in sterile fashion, a triple lumen [facility] catheter was inserted, in the right femoral vein, in 2 attempts. placement was verified, by blood return, the site was dressed with using sterile technique, the patient tolerated the procedure, well. MDM: 15:53 Patient medically screened. [facility] 16:21 Data reviewed: vital signs, nurses notes, lab test result(s), EKG, radiologic studies, [facility] CT scan, plain films. 11/27 16:09 Order name: Basic Metabolic Panel; Complete Time: 17:10 [facility] 11/27 16:09 Order name: CBC with Diff; Complete Time: 16:44 [facility] 11/27 16:13 Order name: Glucose, Ancillary Testing; Complete Time: 16:23 EDMS 11/27 16:15 Order name: LFT's; Complete Time: 17:10 [facility] 11/27 16:15 Order name: Magnesium; Complete Time: 17:10 [facility] 11/27 16:15 Order name: NT PRO-BNP; Complete Time: 17:10 [facility] 11/27 16:15 Order name: PT-INR; Complete Time: 16:44 [facility] 11/27 16:15 Order name: Troponin (emerg Dept Use Only); Complete Time: 17:10 [facility] 11/27 16:15 Order name: Lipase; Complete Time: 17:10 [facility] 11/27 16:15 Order name: Stool Culture [facility] 11/27 16:15 Order name: Fecal Leukocyte Stain [facility] 11/27 16:15 Order name: Blood Culture Adult (2) [facility] 11/27 16:15 Order name: XRAY Chest (1 view); Complete Time: 17:10 [facility] 11/27 16:15 Order name: Lactate; Complete Time: 16:48 [facility] 11/27 16:15 Order name: Urine Culture [facility] 11/27 16:22 Order name: CT Chest Abdomen Pelvis W/O Contrast: no iv no oral; Complete Time: 17:10 [facility] 11/27 16:22 Order name: UDS [facility] 11/27 16:24 Order name: ABG [facility] 11/27 17:48 Order name: Urine Dipstick--Ancillary (enter results) 11/27 16:15 Order name: EKG; Complete Time: 16:16 [facility] 11/27 16:15 Order name: Cardiac monitoring; Complete Time: 16:24 [facility] 11/27 16:15 Order name: EKG - Nurse/Tech; Complete Time: 16:24 [facility] 11/27 16:15 Order name: O2 Per Protocol; Complete Time: 16:24 [facility] 11/27 16:15 Order name: O2 Sat Monitoring; Complete Time: 16:24 [facility] 11/27 16:15 Order name: Burroughs; Complete Time: 17:35 [facility] 11/27 16:23 Order name: IV Saline Lock - Large Bore; Complete Time: 16:23 [facility] 11/27 16:44 Order name: Central Line Kit; Complete Time: 17:33 [facility] Administered Medications: 16:18 Drug: NS 0.9% 1000 ml Route: IV; Rate: 1 bolus; Site: left antecubital; sv 17:00 Follow up: Response: No adverse reaction; IV Status: Completed infusion; IV Intake: sv 1000ml 17:00 Drug: Levophed (4 mg/250 mL D5W 4 mcg/min {Note: started at 10 mcg/min.} Route: IV; sv Rate: calculated rate; Site: left antecubital; 17:33 Follow up: IV infusion moved to the right femoral CL sv 19:29 Follow up: IV Status: Infusion continued upon transfer rv 17:34 Drug: Zosyn 3.375 grams Route: IVPB; Infused Over: 60 mins; Site: right femoral; sv 18:32 Follow up: Response: No adverse reaction; IV Status: Completed infusion; IV Intake: sv 100ml 17:34 Drug: Solu-CORTEF 100 mg Route: IVP; Site: right femoral; sv 18:28 Follow up: Response: No adverse reaction sv 17:34 Drug: NS 0.9% 1000 ml Route: IV; Rate: 1 bolus; Site: right femoral; sv 19:30 Follow up: IV Status: Infusion continued upon admission rv 17:34 Drug: Glucagon 1 mg Route: IVP; Site: right femoral; sv 18:28 Follow up: Response: No adverse reaction sv 17:35 Drug: ProTONIX 40 mg Route: IVP; Site: right femoral; sv 18:28 Follow up: Response: No adverse reaction sv 18:33 Drug: vancoMYCIN 1 grams Route: IVPB; Infused Over: 2 hrs; Site: right femoral; sv 19:30 Follow up: IV Status: Infusion continued upon admission rv 19:00 Drug: NS 0.9% 1000 ml Route: IV; Rate: 1 bolus; Site: right forearm; rv 19:31 Follow up: IV Status: Infusion continued upon admission rv Point of Care Testing: Blood Glucose: 16:05 Blood Glucose: 390 mg/dL; iw Ranges: Critical Glucose Levels:Adult <50 mg/dl or >400 mg/dl <40 mg/dl or >180 mg/dl Disposition: 11/27/19 17:16 Hospitalization ordered by Marco Antonio Tineo for Inpatient Admission. Preliminary diagnosis are Diarrhea, unspecified, Weakness, Severe sepsis with septic shock, Hypotension, Bradycardia, unspecified, Type 1 diabetes mellitus, Acute kidney failure, Elevated white blood cell count. - Bed requested for Intensive Care Unit. - Status is Inpatient Admission. rv - Condition is Stable. - Problem is new. - Symptoms have improved. UTI on Admission? No Signatures: Dispatcher [employer] EDMS Pia Lilly Stephanie, RN RN sv Heladio Veras MD MD cha Williams, Irene, RN RN iw Osiel Covington RN RN rv Corrections: (The following items were deleted from the chart) 16:14 16:10 QUANTITATIVE HCG+C.LAB.BRZ ordered. EDMI EDMS 16:14 16:10 ABO/RH TYPING+BB.LAB.BRZ ordered. [facility] EDMI 16:24 16:09 IV Saline Lock ordered. [facility] 16:24 16:09 Labs collected and sent ordered. [facility] sv 16:24 16:09 NPO ordered. [facility] 17:19 17:16 Hospitalization Ordered by Marco Antonio Tineo for Inpatient Admission. Preliminary [facility] diagnosis is Diarrhea, unspecified; Weakness; Severe sepsis with septic shock; Hypotension; Bradycardia, unspecified; Type 1 diabetes mellitus. Bed requested for Intensive Care Unit. Status is Inpatient Admission. Condition is Stable. Problem is new. Symptoms have improved. UTI on Admission? No. [facility] 18:15 17:19 11/27/2019 17:16 Hospitalization Ordered by Marco Antonio Tineo for Inpatient bd Admission. Preliminary diagnosis is Diarrhea, unspecified; Weakness; Severe sepsis with septic shock; Hypotension; Bradycardia, unspecified; Type 1 diabetes mellitus; Acute kidney failure; Elevated white blood cell count. Bed requested for Intensive Care Unit. Status is Inpatient Admission. Condition is Stable. Problem is new. Symptoms have improved. UTI on Admission? No. [facility] 18:41 18:15 11/27/2019 17:16 Hospitalization Ordered by Marco Antonio Tineo for Inpatient bd Admission. Preliminary diagnosis is Diarrhea, unspecified; Weakness; Severe sepsis with septic shock; Hypotension; Bradycardia, unspecified; Type 1 diabetes mellitus; Acute kidney failure; Elevated white blood cell count. Bed requested for [facility] ER HOLD. Status is Inpatient Admission. Condition is Stable. Problem is new. Symptoms have improved. UTI on Admission? No. 19:31 18:41 11/27/2019 17:16 Hospitalization Ordered by Marco Antonio Tineo for Inpatient rv Admission. Preliminary diagnosis is Diarrhea, unspecified; Weakness; Severe sepsis with septic shock; Hypotension; Bradycardia, unspecified; Type 1 diabetes mellitus; Acute kidney failure; Elevated white blood cell count. Bed requested for Intensive Care Unit. Status is Inpatient Admission. Condition is Stable. Problem is new. Symptoms have improved. UTI on Admission? No. bd
[2019-11-27] MEDS ORDERED: PIPER/TAZO/NS 3.375gm 3.375 GM/100 ML BAG ONE (17:25)
[2019-11-27] MEDS ORDERED: GLUCAGON 1 MG/VIAL ONE (17:25)
[2019-11-27] MEDS ORDERED: HYDROCORTISONE SUC 100 MG INJ ONE (17:25)
[2019-11-27] MEDS ORDERED: PANTOPRAZOLE 40 MG INJ ONE (17:25)
[2019-11-27] MEDS ORDERED: NA CHLORIDE 0.9% 3,000 ML ONE (17:25)
[2019-11-27] MEDS ORDERED: DOPAMINE/D5W 400 MG/250 ML BAG IV ONE (17:25)
--- NOTE | 2019-11-27 17:59 | P.HP ---
Certification for Inpatient Patient admitted to: Inpatient With expected LOS: >2 Midnights Practitioner: I am a practitioner with admitting privileges, knowledge of patient current condition, hospital course, and medical plan of care. Services: Services provided to patient in accordance with Admission requirements found in Title 42 Section 412.3 of the Code of Federal Regulations Patient History Date of Service: 11/27/19 Reason for admission: Hypotension, generalize weakness History of Present Illness: 64-year-old gentleman with a past medical history substance abuse, intentional drug overdose, history of coronary artery disease status post stents, history CABG presented emergency department with a complaint of generalized weakness. Patient reports several bouts of diarrhea which has been present since 3 days ago. Patient stated food goes right through him. He denied eating any unusual food. He denied any sick contact. The patient was noted to be very hypotensive with systolic blood pressure in the 50s in the ED. He also met criteria for sepsis leukocytosis. Blood work demonstrated acute renal failure and severely elevated serum creatinine. He denies any fever or chest pain or palpitation or shortness of breath. The patient denied any nausea or vomiting. Central line was placed and patient started on aggressive IV hydration for hypotension and later started on vasopressors. About 2 L of NS given in the ED. His systolic blood pressure was up to [address] abdomen and pelvis and chest demonstrated no acute disease. The patient is admitted to the ICU for further management. Allergies ibuprofen Allergy (Intermediate, Verified 07/08/19 01:43) Hives/Rash Home Medications: Albuterol Inhaler [Ventolin Inhaler*] 2 puff IH QID PRN 07/08/19 Albuterol Sulfate [Proair Respiclick] 2 puff IH QID PRN 07/08/19 Aripiprazole [Abilify] 10 mg PO DAILY 07/08/19 Aspirin [Aspir-Low] 81 mg PO DAILY 07/08/19 Atorvastatin Calcium [Lipitor*] 20 mg PO BEDTIME 07/08/19 Bumetanide [Bumex] 2 mg PO BID 07/08/19 Clopidogrel Bisulfate [Plavix*] 75 mg PO DAILY 07/08/19 Empagliflozin [Jardiance] 25 mg PO DAILY 07/08/19 Fluticasone/Vilanterol [Breo Ellipta 100-25 Mcg INH] 1 puff IH DAILY 07/08/19 Furosemide [Lasix] 20 mg PO DAILY 07/08/19 Gabapentin 600 mg PO TID 07/08/19 Insulin Glulisine [Apidra] 15 unit SQ TID 07/08/19 Metformin HCl 1,000 mg PO BID 07/08/19 Metoprolol Tartrate [Lopressor] 50 mg PO DAILY 07/08/19 Omeprazole [Prilosec] 40 mg PO DAILY 07/08/19 Spironolactone 25 mg PO DAILY 07/08/19 Trazodone [Desyrel*] 30 mg PO BEDTIME 07/08/19 clonazePAM [Clonazepam] 1 mg PO QID PRN 07/08/19 lisinopriL [Prinivil] 5 mg PO DAILY 07/08/19 - Past Medical/Surgical History Diabetic: Yes -: hyperlipidemia, -: COPD -: DM -: PAD -: depression -: Gastroesophageal reflux disease -: Obstructive sleep apnea- uses CPAP at home-home O2 at 4L -: anxiety disorder, hypertension -: Coronary artery disease status post stent -: Pancreatic surgery - valve repair -: cholecystectomy -: several back surgery -: Cardiac stent x1 -: 2008 ercp, punctured something in his pancreas, then transfered to -: [facility] for open exploratory lap, had feeding tube that has reversed -: trach from previous surgery at [facility] -: CABG x 3 - Family History Father -: Heart disease, Diabetes Mother -: Heart disease, Hypertension, Lung disease, GI disease, Diabetes, Stroke, Liver disease, Kidney disease Brother -: Heart disease, Hypertension, Lung disease, Diabetes, Stroke, Liver disease, Kidney disease Notes: 2 brothers Sister -: Heart disease, GI disease Notes: no known illness - Social History Alcohol use: Yes CD- Drugs: Yes Caffeine use: Yes Review of Systems Lymphatics: Other Other: General: No fever, no malaise, no unintentional weight loss. Eyes: No eye discharge, Respiratory: No cough, no shortness of breath. CVS: No chest pain, no palpitation, no lightheadedness. Genitourinary: No dysuria, no urinary frequency, no incontinence, no hematuria. Musculoskeletal: No joint swelling, no gait instability. Neurology: No headache, no asymmetric weakness, no problem with swallowing. Except as documented, all other systems reviewed and negative. Physical Examination - Physical Exam General: In no apparent distress, Oriented x3, Obese HEENT: Normocephalic, Mucous membr. moist/pink, Sclerae nonicteric Neck: Supple, JVD not distended Respiratory: Clear to auscultation bilaterally, Diminished Cardiovascular: No edema, Regular rate/rhythm, Normal S1 S2 Capillary refill: <2 Seconds Gastrointestinal: Normal bowel sounds, Soft and benign, Non-distended, No tenderness Musculoskeletal: No swelling, No erythema Integumentary: No rashes, No tenderness/swelling Neurological: Normal speech, Cranial nerves 3-12 intact, Other (Psychomotor retardation) - Studies Laboratory Data (last 24 hrs) 11/27/19 16:10: PT 12.3, INR 1.04 11/27/19 16:10: Magnesium 2.2 D, Total Bilirubin 0.4, AST 265 H, ALT 57, Alkaline Phosphatase 97, Lipase 292 11/27/19 16:10: WBC 15.1 H, Hgb 14.6, Hct 44.1, Plt Count 306 11/27/19 16:10: Sodium 127 L, Potassium 4.6, BUN 62 H, Creatinine 4.92 H, Glucose 384 H Assessment and Plan - Problems (Diagnosis) (1) Sepsis Current Visit: Yes Status: Acute (2) Hypovolemic shock Current Visit: Yes Status: Acute (3) JORGE (acute kidney injury) Onset Date: 12/17/18 Current Visit: No Status: Acute (4) CAD (coronary artery disease) Onset Date: 05/08/17 Current Visit: No Status: Chronic Qualifiers: Coronary Disease-Associated Artery/Lesion type: [place] artery [place] vs. transplanted heart: [place] heart Associated angina: with unstable angina Qualified Code(s): I25.110 - Atherosclerotic heart disease of [place] coronary artery with unstable angina pectoris (5) Diabetes mellitus Onset Date: 06/11/18 Current Visit: No Status: Chronic Qualifiers: Diabetes mellitus type: type 2 Diabetes mellitus fci insulin use: with fci use Diabetes mellitus complication status: with hyperglycemia Qualified Code(s): E11.65 - Type 2 diabetes mellitus with hyperglycemia; Z79.4 - nursing home (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 of insulin (6) Obesity Onset Date: 06/11/18 Current Visit: No Status: Chronic Qualifiers: Obesity type: unspecified obesity type Obesity classification: adult class 2 (BMI 35 - 39.9) Serious obesity comorbidity presence: with serious comorbidity Body mass index: BMI 38.0-38.9 Qualified Code(s): E66.01 - Morbid (severe) obesity due to excess calories; Z68.38 - Body mass index (BMI) 38.0-38.9, adult (7) Obstructive sleep apnea Onset Date: 06/11/18 Current Visit: No Status: Chronic (8) Restrictive lung disease Onset Date: 06/11/18 Current Visit: No Status: Chronic - Plan Admit to the ICU. Continue aggressive IV hydration with normal saline Continue Vasopressor. Start empiric IV antibiotics. Follow blood cultures obtained in the ED. Nephrology consult Monitor urine output Monitor renal function. Keep NPO for the next 24 hours. Hold antihypertensives, lasix and aldactone. Home medications to be validated for reconciliation. Obtain echocardiogram. Stool studies Follow urine toxicology screen. - Advance Directives Does patient have a Living Will: No Does patient have a Durable POA for Healthcare: No
[2019-11-27] MEDS ORDERED: VANCOMYCIN 1 GM in NA CHLORIDE 0.9% 500 ML IVPB SCH (18:00)
[2019-11-27] MEDS ORDERED: VANCOMYCIN/NS 1 gm 1 GM/250 ML BAG IVPB ONE (18:00)
[2019-11-27 18:15] LABS: Barbiturates NEGATIVE (NEGATIVE); Benzodiazepines NEGATIVE (NEGATIVE); Cocaine NEGATIVE (NEGATIVE); METHAMPHETAM NEGATIVE (NEGATIVE); Methadone NEGATIVE (NEGATIVE); Opiates NEGATIVE (NEGATIVE); Phencyclidine NEGATIVE (NEGATIVE); THC Cannibis NEGATIVE (NEGATIVE)
[2019-11-27 18:37] LABS: Urine Blood NEGATIVE (NEG); Urine Glucose 2+ (NEG); Urine Protein 2+ (NEG)
[2019-11-27] MEDS ORDERED: ONDANSETRON 4 MG/2 ML VIAL IV PRN (18:50)
[2019-11-27] MEDS ORDERED: NOREPINEPHRINE 4 MG in D5W 250 ML IV PRN (18:50)
[2019-11-27] MEDS ORDERED: ACETAMINOPHEN 650MG/RECT SUPP RECT PRN (18:50)
[2019-11-27] MEDS ORDERED: INSULIN -REGULAR HUMAN 50 UNIT/0.5 ML ML SQ SCH (18:50)
[2019-11-27] MEDS ORDERED: NA CHLORIDE 0.9% 1,000 ML IV SCH (19:00)
[2019-11-27] MEDS ORDERED: NACL 0.9% IRR SOLN 2,000 ML IRR ONE (19:18)
[2019-11-27] MEDS: IPRATROPIUM BROM 0.5MG/2.5ML NEB SCH (20:30)
[2019-11-27 21:13] LABS: Albumin 3.1 g/dL (3.4-5.0); Bilirubin Total 0.6 mg/dL (0.2-1.0); Potassium 5.2 mmol/L (3.5-5.1)
[2019-11-27] MEDS: NA CHLORIDE 0.9% 1,000 ML IV SCH (21:51)
[2019-11-27] MEDS ORDERED: D50W 25 GM/50 ML SYRINGE/VIAL IV PRN (21:52)
[2019-11-27] MEDS ORDERED: GLUCAGON 1 MG/VIAL IM PRN (21:52)
[2019-11-27] MEDS ORDERED: INSULIN -REGULAR HUMAN 100 UNIT in NA CHLORIDE 0.9% 100 ML IV SCH (22:00)
[2019-11-27] MEDS ORDERED: INSULIN -REGULAR HUMAN 50 UNIT/0.5 ML ML ONE (22:14)
[2019-11-27] MEDS ORDERED: NA CHLORIDE 0.9% 100 ML ONE (22:15)
[2019-11-28] MEDS: IPRATROPIUM BROM 0.5MG/2.5ML NEB SCH ×6 (00:05→19:30)
[2019-11-28] MEDS: HEPARIN 5000 UNIT/ML 1 ML VIAL SQ SCH ×3 (02:43→16:25)
[2019-11-28] MEDS: NA CHLORIDE 0.9% 1,000 ML IV SCH ×4 (04:57→23:55)
[2019-11-28 05:27] LABS: Hematocrit 41.2 % (39.6-49.0); Lymphocytes % 18.9 % (15.3-44.8); Protime INR 1.01; RBC Red Blood Cell Count 4.54 M/uL (4.33-5.43)
[2019-11-28 05:57] LABS: ALT/SGPT 54 U/L (12-78); AST/SGOT 211 U/L (15-37); Alkaline Phosphatase 77 U/L (45-117); BUN Blood Urea Nitrogen 52 mg/dL (7-18); Bicarbonate 20 mmol/L (21-32); Bilirubin Total 0.5 mg/dL (0.2-1.0); Glucose Level 169 mg/dL (74-106); Magnesium 2.3 mg/dL (1.8-2.4); Potassium 3.6 mmol/L (3.5-5.1); Protein, Total 6.9 g/dL (6.4-8.2); Sodium Level 139 mmol/L (136-145); Thyroid Stimulating Hormone 0.795 uIU/mL (0.360-3.740); Troponin I < 0.02 ng/mL (0.0-0.045)
--- NOTE | 2019-11-28 06:47 | EKG ---
Test Date: 2019-11-27 Test Time: 16:19:23 Legal Researcher: EDIN MEASUREMENT RESULTS: Intervals: Rate: 76 IL: 166 QRSD: 90 QT: 402 QTc: 452 [place]: P: 13 IL: 166 QRS: -59 T: 68 INTERPRETIVE STATEMENTS: Normal sinus rhythm Possible Left atrial enlargement Left axis Abnormal ECG Compared to ECG 07/10/2019 15:08:57 no significant change from previous ECG Electronically Signed On 11-28-19 06:47:25 BATCH MAKER by Dre Mai
[2019-11-28] MEDS ORDERED: D5 0.9 NS 1,000 ML IV SCH (08:00)
[2019-11-28] MEDS: CEFTRIAXONE/SWI 1gm 1 GM/10 ML SYR IVP SCH (08:09)
[2019-11-28] MEDS ORDERED: VANCOMYCIN 1.75 GM in NA CHLORIDE 0.9% 500 ML IVPB SCH (10:00)
[2019-11-28 10:13] LABS: Absolute Lymphocytes (CBC) 2.7 K/uL (0.7-4.9); Basophils % 0.7 % (0-1.3); Hematocrit 40.9 % (39.6-49.0); Lymphocytes % 18.1 % (15.3-44.8); MPV 8.3 fL (7.6-11.3); RBC Red Blood Cell Count 4.52 M/uL (4.33-5.43)
[2019-11-28 10:25] LABS: Magnesium 2.2 mg/dL (1.8-2.4); Phosphorus 3.8 mg/dL (2.5-4.9); Potassium 3.7 mmol/L (3.5-5.1)
--- NOTE | 2019-11-28 11:18 | EKG ---
Test Date: 2019-11-27 Test Time: 17:17:47 Display Decorator: EDIN MEASUREMENT RESULTS: Intervals: Rate: 66 HI: 166 QRSD: 92 QT: 380 QTc: 398 [place]: P: 43 HI: 166 QRS: -44 T: 92 INTERPRETIVE STATEMENTS: Normal sinus rhythm Left axis deviation ST & T wave abnormality, consider anterior ischemia Abnormal ECG Compared to ECG 11/27/2019 16:19:23 Left-axis deviation now present ST (T wave) deviation now present Possible ischemia now present Electronically Signed On 11-28-19 11:16:10 HEATER OPERATOR by Shashi Jin
[2019-11-28] MEDS ORDERED: NA CHLORIDE 0.9% 500 ML IV SCH (12:00)
--- NOTE | 2019-11-28 12:30 | P.PN ---
Subjective Date of Service: 11/28/19 Chief Complaint: Hypotension, generalize weakness Patient diagnosed with DKA last and started on insulin drip. Patient received about 3 L IV normal saline. He is currently requiring low-dose Levophed. No diarrhea since hospitalization. No recorded fever. He denies nausea or vomiting. Physical Examination - Vital Signs Temperature: 97.7 F Blood Pressure: 77/58 Pulse: 71 Respirations: 23 Pulse Ox (%): 97 - Physical Exam General: Alert, In no apparent distress, Oriented x3 HEENT: Mucous membr. moist/pink, Sclerae nonicteric Neck: Supple, JVD not distended Respiratory: Clear to auscultation bilaterally, Normal air movement Cardiovascular: No edema, Regular rate/rhythm, Normal S1 S2 Gastrointestinal: Normal bowel sounds, Soft and benign, Non-distended, No tenderness Musculoskeletal: No swelling, No erythema Integumentary: No rashes Neurological: Normal speech, Normal strength at 5/5 x4 extr - Studies Laboratory Data (last 24 hrs) 11/27/19 16:10: PT 12.3, INR 1.04 11/27/19 16:10: Magnesium 2.2 D, Total Bilirubin 0.4, AST 265 H, ALT 57, Alkaline Phosphatase 97, Lipase 292 11/27/19 16:10: WBC 15.1 H, Hgb 14.6, Hct 44.1, Plt Count 306 11/27/19 16:10: Sodium 127 L, Potassium 4.6, BUN 62 H, Creatinine 4.92 H, Glucose 384 H Assessment And Plan - Current Problems (Diagnosis) (1) Sepsis Current Visit: Yes Status: Acute (2) Hypovolemic shock Current Visit: Yes Status: Acute (3) JORGE (acute kidney injury) Onset Date: 12/17/18 Current Visit: No Status: Acute (4) CAD (coronary artery disease) Onset Date: 05/08/17 Current Visit: No Status: Chronic Qualifiers: Coronary Disease-Associated Artery/Lesion type: [place] artery [place] vs. transplanted heart: [place] heart Associated angina: with unstable angina Qualified Code(s): I25.110 - Atherosclerotic heart disease of [place] coronary artery with unstable angina pectoris (5) Diabetes mellitus Onset Date: 06/11/18 Current Visit: No Status: Chronic Qualifiers: Diabetes mellitus type: type 2 Diabetes mellitus pot operator insulin use: with intermediate use Diabetes mellitus complication status: with hyperglycemia Qualified Code(s): E11.65 - Type 2 diabetes mellitus with hyperglycemia; Z79.4 - creative writer (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 of insulin (6) Obesity Onset Date: 06/11/18 Current Visit: No Status: Chronic Qualifiers: Obesity type: unspecified obesity type Obesity classification: adult class 2 (BMI 35 - 39.9) Serious obesity comorbidity presence: with serious comorbidity Body mass index: BMI 38.0-38.9 Qualified Code(s): E66.01 - Morbid (severe) obesity due to excess calories; Z68.38 - Body mass index (BMI) 38.0-38.9, adult (7) Obstructive sleep apnea Onset Date: 06/11/18 Current Visit: No Status: Chronic (8) Restrictive lung disease Onset Date: 06/11/18 Current Visit: No Status: Chronic (9) DKA (diabetic ketoacidoses) Current Visit: Yes Status: Acute - Plan Continue IV hydration. Continue and wean off Levophed as tolerated. Keep MAP goal of 65. Transition from the insulin drip to subcutaneous insulin. Start empiric IV antibiotics. Add IV Flagyl for anaerobic coverage. Follow blood cultures. Nephrology consult Monitor urine output Monitor renal function. Resumed diet once subcutaneous insulin is resumed Hold antihypertensives, lasix and aldactone. Echocardiogram has been requested. Stool studies are pending. Urine toxicology screen is negative. Urine culture: No growth today. Blood cultures are pending.
[2019-11-28] MEDS: METRONIDAZOLE 500mg IVPB 500 MG/100 ML BAG IV SCH ×2 (12:49→16:25)
[2019-11-28] MEDS: INSULIN -REGULAR HUMAN 50 UNIT/0.5 ML ML SQ SCH ×3 (13:51→20:52)
[2019-11-28] MEDS ORDERED: D50W 25 GM/50 ML SYRINGE/VIAL IV PRN (17:44)
[2019-11-28] MEDS ORDERED: GLUCAGON 1 MG/VIAL IM PRN (17:44)
[2019-11-28] MEDS ORDERED: VANCOMYCIN 1 GM in NA CHLORIDE 0.9% 500 ML IVPB SCH (18:00)
[2019-11-28] MEDS: INSULIN GLARGINE 100 UNITS/ML SQ SCH (20:53)
[2019-11-29] MEDS: METRONIDAZOLE 500mg IVPB 500 MG/100 ML BAG IV SCH (00:17)
[2019-11-29] MEDS: IPRATROPIUM BROM 0.5MG/2.5ML NEB SCH ×6 (00:20→20:35)
[2019-11-29] MEDS: HEPARIN 5000 UNIT/ML 1 ML VIAL SQ SCH ×3 (00:22→17:35)
--- NOTE | 2019-11-29 01:17 | CON ---
Date of Consultation: 11/28/2019 Reason For Consultation: Elevated BUN and creatinine. History Of Present Illness: This is a 64-year-old gentleman with significant past medical history of coronary artery disease status post LA, status post CABG, status post PTCA, valvular heart disease, diabetes complicated with neuropathy and retinopathy, peripheral vascular disease, COPD, the patient had previous admission with acute kidney injury secondary to poor perfusion, acute tubular necrosis s econdary to over medicating himself. Patient came to the hospital because of feeling weak, found by the family as the blood pressure upon arrival to the hospital, systolic around 50 with elevated BUN a nd creatinine. For that reason, we have been consulted. Patient was bolus with IV fluids and placed on Levophed. Patient received 3 L of normal saline last night. The patient was placed on Levophed, then after that his Levophed start being tapering. Upon arrival to the hospital, the patient's crea tinine was 4.9. Patient had acidosis with high anion gap. His bicarb was 19, but his anion gap was 17. The patient was started on insulin drip. Patient had marginal hyperkalemia that resolved. The patient more awake right now. Patient denied taking any nonsteroidal. No IV contrast. Past Medical History: Include, 1.COPD. 2.Diabetes complicated with neuropathy. 3.Peripheral vascular disease. 4.Jerk. 5.Hyperlipidemia. 6.Coronary artery disease status post CABG, status post PTCA. 7.Obstructive sleep apnea, on CPAP. Past Surgical History: Include, 1.CABG. 2.PTCA. 3.EGD. 4.ERCP. 5.Bowel repair. Family History: Positive for diabetes and hypertension. Social History: Active alcohol, active drug use, active smoker. Review of Systems: Head and Neck: No red eye. No ear pain. GI: No nausea, no vomiting. : No polyuria, no dysuria, no hematuria. 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 Respiratory: No shortness of breath. Cardiovascular: No chest pain. Endocrine: No polydipsia. Skin: No rash. Neuro: Has neuropathy. Musculoskeletal: Generalized fatigue. Physical Examination: General: When I saw the patient, the patient was lying in bed comfortable. Vital Signs: Blood pressure of 102/64, pulse of 86. Chest: Clear to auscultation. Heart: S1, S2. Regular. Systolic murmur. Abdomen: Soft, nontender. Extremities: No edema. Laboratory Data: Upon arrival to the hospital, sodium 127, potassium 4.6, bicarb 19, BUN 62, creatin ine of 4.8. Lactic acid 2.8, calcium 8.7, anion gap of 19. BNP 402. Chest x-ray; cardiomegaly with out any congestion. WBC 15.1, H and H 14.6 and 44.1, platelets 306. ABG; pH 7.33, CO2 31, O2 66, sa turation 90. Current lab data; sodium 139, potassium 3.6, bicarb 20, BUN 52, creatinine 0.7, GFR of 24, calcium 8, phosphor of 4. WBC 14.7, H and H 13.9 and 40.9, platelets 307. Assessment And Plan: 1.Acute kidney injury secondary to poor perfusion, acute tubular necrosis secondary to gastrointesti nal loss superimposed with glucose diuresis complicated with acidosis, marginal hyperkalemia, oliguri c. No uremic symptoms. I do not see the need for initiating any renal replacement therapy. Patient look to me still on the dry side, I am going to bolus him, then we will continue hydration. 2.Diabetic ketoacidosis with high anion gap metabolic acidosis. Continue per protocol. 3.Hyperkalemia, resolved. 4.Hypokalemia, hypomagnesemia. We will supplement. 5.Hypertension, with the presence of shock, currently hold all blood pressure medications especially LM inhibitor in the presence of acute kidney injury. We will send for cortisol and we will bolus t he patient and we will monitor. 6.Diabetic ketoacidosis as above. 7.Diabetes as by primary. LUIS MIGUEL/SHERYL Voice ID: [id number] Report ID: [id number]
[2019-11-29 05:09] LABS: Absolute Lymphocytes (CBC) 2.2 K/uL (0.7-4.9); Basophils % 0.8 % (0-1.3); Hematocrit 36.7 % (39.6-49.0); Lymphocytes % 22.4 % (15.3-44.8); MPV 7.9 fL (7.6-11.3); RBC Red Blood Cell Count 4.03 M/uL (4.33-5.43)
[2019-11-29 05:27] LABS: Albumin 2.6 g/dL (3.4-5.0); Bilirubin Total 0.4 mg/dL (0.2-1.0); Potassium 3.9 mmol/L (3.5-5.1); Protein, Total 6.3 g/dL (6.4-8.2)
[2019-11-29] MEDS: INSULIN -REGULAR HUMAN 50 UNIT/0.5 ML ML SQ SCH ×4 (07:30→20:58)
[2019-11-29] MEDS: ALBUTEROL 2.5 MG/3 ML NEB SOL NEB PRN ×2 (08:50→20:35)
[2019-11-29] MEDS: CEFTRIAXONE/SWI 1gm 1 GM/10 ML SYR IVP SCH (09:27)
[2019-11-29] MEDS: NA CHLORIDE 0.9% 1,000 ML IV SCH (09:28)
--- NOTE | 2019-11-29 11:21 | P.PN ---
Subjective Date of Service: 11/29/19 Chief Complaint: Hypotension, generalize weakness Patient is doing much better today. Levophed drip is weaned off. DKA resolved. He is feeding well. No diarrhea since hospitalization. No recorded fever. Cultures have yielded no growth. Physical Examination - Vital Signs Temperature: 97.5 F Blood Pressure: 111/68 Pulse: 79 Respirations: 15 Pulse Ox (%): 99 - Physical Exam General: Alert, In no apparent distress, Oriented x3 HEENT: Mucous membr. moist/pink, Sclerae nonicteric Neck: Supple, JVD not distended Respiratory: Clear to auscultation bilaterally, Normal air movement Cardiovascular: No edema, Regular rate/rhythm, Normal S1 S2 Capillary refill: <2 Seconds Gastrointestinal: Normal bowel sounds, Soft and benign, Non-distended, No tenderness Musculoskeletal: No erythema Integumentary: No rashes Neurological: Normal speech, Normal strength at 5/5 x4 extr - Studies Microbiology Data (last 24 hrs): 11/27/19 17:40 Clean Catch Urine [place] Count - Final 11/27/19 17:40 Clean Catch Urine - Final No growth. Assessment And Plan - Current Problems (Diagnosis) (1) Sepsis Current Visit: Yes Status: Acute (2) Hypovolemic shock Current Visit: Yes Status: Acute (3) JORGE (acute kidney injury) Onset Date: 12/17/18 Current Visit: No Status: Acute (4) CAD (coronary artery disease) Onset Date: 05/08/17 Current Visit: No Status: Chronic Qualifiers: Coronary Disease-Associated Artery/Lesion type: [place] artery [place] vs. transplanted heart: [place] heart Associated angina: with unstable angina Qualified Code(s): I25.110 - Atherosclerotic heart disease of [place] coronary artery with unstable angina pectoris (5) Diabetes mellitus Onset Date: 06/11/18 Current Visit: No Status: Chronic Qualifiers: Diabetes mellitus type: type 2 Diabetes mellitus intermediate teacher insulin use: with care home use Diabetes mellitus complication status: with hyperglycemia Qualified Code(s): E11.65 - Type 2 diabetes mellitus with hyperglycemia; Z79.4 - adjunct faculty for medical terminology (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 of insulin (6) Obesity Onset Date: 06/11/18 Current Visit: No Status: Chronic Qualifiers: Obesity type: unspecified obesity type Obesity classification: adult class 2 (BMI 35 - 39.9) Serious obesity comorbidity presence: with serious comorbidity Body mass index: BMI 38.0-38.9 Qualified Code(s): E66.01 - Morbid (severe) obesity due to excess calories; Z68.38 - Body mass index (BMI) 38.0-38.9, adult (7) Obstructive sleep apnea Onset Date: 06/11/18 Current Visit: No Status: Chronic (8) Restrictive lung disease Onset Date: 06/11/18 Current Visit: No Status: Chronic (9) DKA (diabetic ketoacidoses) Current Visit: Yes Status: Resolved - Plan Continue IV hydration. Levophed drip discontinued. Continue Lantus insulin and insulin sliding scale. Discontinue antibiotics. Nephrology input appreciated Continue to hold antihypertensives, lasix and aldactone. Echocardiogram is pending. Stool studies are pending. Urine toxicology screen is negative. Transferred to the medical floor.
--- NOTE | 2019-11-29 13:28 | P.PN ---
Subjective Date of Service: 11/29/19 Chief Complaint: Hypotension, generalize weakness Subjective: Improving Subjective Pt with listed PMHx , admitted for weakness, found to have JORGE with peak Cr 4.9 and DKA today Cr down to 1.1 will dc IVF and remove harp Trial of void Past Medical History: Include, 1. COPD. 2. Diabetes complicated with neuropathy. 3. Peripheral vascular disease. 4. Jerk. 5. Hyperlipidemia. 6. Coronary artery disease status post CABG, status post PTCA. 7. Obstructive sleep apnea, on CPAP. Past Surgical History: Include, 1. CABG. 2. PTCA. 3. EGD. 4. ERCP. 5. Bowel repair. Family History: Positive for diabetes and hypertension. Social History: Active alcohol, active drug use, active smoker. Past Medical History: Include, 1. COPD. 2. Diabetes complicated with neuropathy. 3. Peripheral vascular disease. 4. Jerk. 5. Hyperlipidemia. 6. Coronary artery disease status post CABG, status post PTCA. 7. Obstructive sleep apnea, on CPAP. Past Surgical History: Include, 1. CABG. 2. PTCA. 3. EGD. 4. ERCP. 5. Bowel repair. Physical exam general: awake and alert , NAD , obese Neck; Supple, No elevated JVD hear: RRR, normal S1,2 no murmur or rub Chest: CTAB, no rlaes or wheezes Abdomen: Soft , Nt Extremities No edema or ulcer A/p JORGE due to dehydration for DKA resolved will dc IVF and remove harp with TOV renal dose meds DKA resolved will dc IVF insulin as per primary team Physical Examination - Vital Signs Temperature: 97.5 F Blood Pressure: 125/70 Pulse: 81 Respirations: 20 Pulse Ox (%): 100 - Studies Microbiology Data (last 24 hrs): 11/27/19 17:40 Clean Catch Urine [place] Count - Final 11/27/19 17:40 Clean Catch Urine - Final No growth.
--- NOTE | 2019-11-29 14:04 | ECHO ---
HEIGHT: 5 ft 10 in WEIGHT: 221 lb 4.8 oz DATE OF STUDY: 11/28/[address]: chance evans 2-DIMENSIONAL: YES M.MODE: YES DOPPLER: YES COLOR FLOW: YES TDS: YES PORTABLE: YES DEFINITY: BUBBLE STUDY: DIAGNOSIS: HYPOTENSION CARDIAC HISTORY: CATHERIZATION: YES SURGERY: YES PROSTHETIC VALVE: NO PACEMAKER: NO MEASUREMENTS (cm) DIASTOLIC (NORMALS) SYSTOLIC (NORMALS) IVSd 1.0 (0.6-1.2) LA Diam 3.4 (1.9-4.0) LVEF 70% LVIDd 3.1 (3.5-5.7) LVIDs 1.9 (2.0-3.5) %FS 39% LVPWd 1.1 (0.6-1.2) Ao Diam 3.4 (2.0-3.7) 2 DIMENSIONAL ASSESSMENT: RIGHT ATRIUM: NORMAL LEFT ATRIUM: NORMAL RIGHT VENTRICLE: NORMAL LEFT VENTRICLE: NORMAL TRICUSPID VALVE: NORMAL MITRAL VALVE: NORMAL PULMONIC VALVE: NORMAL AORTIC VALVE: NORMAL PERICARDIAL EFFUSION: NONE AORTIC ROOT: NORMAL LEFT VENTRICULAR WALL MOTION: NORMAL DOPPLER/COLOR FLOW: NORMAL COMMENTS: NORMAL 2-DIMENSIONAL ECHOCARDIOGRAM WITH DOPPLER. NO WALL MOTION ABNORMALITY. NO EFFUSION. TECHNOLOGIST: ROD ALCAZAR
[2019-11-29] MEDS: INSULIN GLARGINE 100 UNITS/ML SQ SCH (20:58)
[2019-11-30] MEDS: IPRATROPIUM BROM 0.5MG/2.5ML NEB SCH ×4 (00:10→12:00)
[2019-11-30] MEDS: HEPARIN 5000 UNIT/ML 1 ML VIAL SQ SCH ×2 (00:47→08:16)
[2019-11-30 05:28] VITALS: BMI 31.8
[2019-11-30 06:03] LABS: Absolute Lymphocytes (CBC) 2.6 K/uL (0.7-4.9); Basophils % 1.1 % (0-1.3); Hematocrit 36.3 % (39.6-49.0); MPV 8.3 fL (7.6-11.3); RBC Red Blood Cell Count 4.03 M/uL (4.33-5.43)
[2019-11-30 06:58] LABS: Potassium 3.5 mmol/L (3.5-5.1)
[2019-11-30] MEDS: INSULIN -REGULAR HUMAN 50 UNIT/0.5 ML ML SQ SCH ×2 (08:16→11:51)
[2019-11-30 09:18] VITALS: O2SAT 99
--- NOTE | 2019-11-30 11:31 | P.DS ---
Admission Date: 11/27/19 Discharge Date: 11/30/19 Disposition: DC HOME/HOME HEALTH CARE Discharge Condition: FAIR Reason for Admission: Hypotension, generalize weakness Consultations: Nephrology Procedures: None - Problems (1) Sepsis Current Visit: Yes Status: Acute (2) Hypovolemic shock Current Visit: Yes Status: Acute (3) JORGE (acute kidney injury) Onset Date: 12/17/18 Current Visit: No Status: Acute (4) CAD (coronary artery disease) Onset Date: 05/08/17 Current Visit: No Status: Chronic Qualifiers: Coronary Disease-Associated Artery/Lesion type: [place] artery [place] vs. transplanted heart: [place] heart Associated angina: with unstable angina Qualified Code(s): I25.110 - Atherosclerotic heart disease of [place] coronary artery with unstable angina pectoris (5) Diabetes mellitus Onset Date: 06/11/18 Current Visit: No Status: Chronic Qualifiers: Diabetes mellitus type: type 2 Diabetes mellitus exterminator helper termite insulin use: with exterminator helper termite use Diabetes mellitus complication status: with hyperglycemia Qualified Code(s): E11.65 - Type 2 diabetes mellitus with hyperglycemia; Z79.4 - terminal block assembler (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 of insulin (6) Obesity Onset Date: 06/11/18 Current Visit: No Status: Chronic Qualifiers: Obesity type: unspecified obesity type Obesity classification: adult class 2 (BMI 35 - 39.9) Serious obesity comorbidity presence: with serious comorbidity Body mass index: BMI 38.0-38.9 Qualified Code(s): E66.01 - Morbid (severe) obesity due to excess calories; Z68.38 - Body mass index (BMI) 38.0-38.9, adult (7) Obstructive sleep apnea Onset Date: 06/11/18 Current Visit: No Status: Chronic (8) Restrictive lung disease Onset Date: 06/11/18 Current Visit: No Status: Chronic (9) DKA (diabetic ketoacidoses) Current Visit: Yes Status: Resolved Brief History of Present Illness: 64-year-old gentleman with a past medical history substance abuse, intentional drug overdose, history of coronary artery disease status post stents, history CABG presented emergency department with a complaint of generalized weakness. Patient reported several bouts of diarrhea which had been present for about 3 days. Patient stated food goes right through him. He denied eating any unusual food. He denied any sick contact. The patient was noted to be very hypotensive with systolic blood pressure in the 50s in the ED. He also met criteria for sepsis leukocytosis. Blood work demonstrated acute renal failure and severely elevated serum creatinine. He denied any fever or chest pain or palpitation or shortness of breath. The patient denied any nausea or vomiting. Central line was placed and patient started on aggressive IV hydration for hypotension and later started on vasopressors. About 2 L of NS given in the ED. His systolic blood pressure was up to [address] abdomen and pelvis and chest demonstrated no acute disease. The patient was admitted to the ICU for further management. Hospital Course: Patient treated aggressively with IV fluids. He was also treated with broad- spectrum antibiotics. All cultures came back negative. He required Levophed for 24 hrs and later weaned off as his blood pressure improved with IV hydration. Antibiotics were discontinued on all cultures came back negative. His hypotension was secondary to hypovolemia from fluid loss from diarrhea. He developed DKA which was briefly treated with insulin drip and later transition to subcutaneous insulin. Patient has clinically improved, awake and alert and currently has no complain. He has been off with physical therapy. His vitals have stabilized and patient deemed clinically stable for discharge. Vital Signs/Physical Exam: Temp Pulse Resp BP Pulse Ox 98.3 F 79 14 140/94 H 99 11/30/19 08:00 11/30/19 11:00 11/30/19 11:00 11/30/19 11:11/30/19 11:00 General: Alert, In no apparent distress, Oriented x3, Obese HEENT: Normocephalic, Mucous membr. moist/pink, Sclerae nonicteric Neck: Supple, JVD not distended Respiratory: Clear to auscultation bilaterally, Normal air movement Cardiovascular: No edema, Regular rate/rhythm, Normal S1 S2 Gastrointestinal: Normal bowel sounds, Soft and benign, Non-distended, No tenderness Musculoskeletal: No swelling Neurological: Normal speech, Normal strength at 5/5 x4 extr Laboratory Data at Discharge: WBC 8.4 K/uL (4.3-10.9) 11/30/19 05:09 Hgb 12.6 g/dL (13.6-17.9) L 11/30/19 05:09 Hct 36.3 % (39.6-49.0) L 11/30/19 05:09 Plt Count 265 K/uL (152-406) 11/30/19 05:09 PT 11.9 SECONDS (9.5-12.5) 11/28/19 05:00 INR 1.01 11/28/19 05:00 Sodium 141 mmol/L (136-145) 11/30/19 05:09 Potassium 3.5 mmol/L (3.5-5.1) 11/30/19 05:09 BUN 15 mg/dL (7-18) 11/30/19 05:09 Creatinine 0.86 mg/dL (0.55-1.3) 11/30/19 05:09 Glucose 159 mg/dL (74-106) H 11/30/19 05:09 Phosphorus 3.8 mg/dL (2.5-4.9) 11/28/19 09:37 Magnesium 2.2 mg/dL (1.8-2.4) 11/28/19 09:37 Total Bilirubin 0.4 mg/dL (0.2-1.0) 11/29/19 04:55 AST 100 U/L (15-37) H D 11/29/19 04:55 ALT 43 U/L (12-78) 11/29/19 04:55 Alkaline Phosphatase 70 U/L (45-117) 11/29/19 04:55 Troponin I < 0.02 ng/mL (0.0-0.045) 11/28/19 05:00 Lipase 292 U/L (73-393) 11/27/19 16:10 Home Medications: Albuterol Inhaler [Ventolin Inhaler*] 2 puff IH QID PRN 07/08/19 Albuterol Sulfate [Proair Respiclick] 2 puff IH QID PRN 07/08/19 Aripiprazole [Abilify] 10 mg PO DAILY 07/08/19 Aspirin [Aspir-Low] 81 mg PO DAILY 07/08/19 Atorvastatin Calcium [Lipitor*] 20 mg PO BEDTIME 07/08/19 Clopidogrel Bisulfate [Plavix*] 75 mg PO DAILY 07/08/19 Empagliflozin [Jardiance] 25 mg PO DAILY 07/08/19 Fluticasone/Vilanterol [Breo Ellipta 100-25 Mcg INH] 1 puff IH DAILY 07/08/19 Furosemide [Lasix] 20 mg PO DAILY 07/08/19 Gabapentin 600 mg PO TID 07/08/19 Insulin Glulisine [Apidra] 15 unit SQ TID 07/08/19 Metformin HCl 1,000 mg PO BID 07/08/19 Metoprolol Tartrate [Lopressor] 50 mg PO BID 07/08/19 Omeprazole [Prilosec] 40 mg PO BID 07/08/19 Spironolactone 25 mg PO BID 07/08/19 Trazodone [Desyrel*] 150 mg PO BEDTIME 07/08/19 clonazePAM [Clonazepam] 1 mg PO TID PRN 07/08/19 lisinopriL [Prinivil] 10 mg PO DAILY 07/08/19 Diet: ADA Activity: Fall precautions Time spent managing pt's care (in minutes): 36
[2019-11-30 13:52] VITALS: BP 127/77; TEMP 98
--- NOTE | 2019-12-01 01:32 | PN ---
Date of Progress Note: 11/30/2019 Subjective: Patient was admitted with acute kidney injury secondary to glucose diuresis. Patient re covered, resolved. Physical Examination: Vital Signs: Blood pressure 107/77, pulse 94. Chest: Clear to auscultation. Heart: S1-S2 regular. Abdomen: Soft, nontender. Extremities: No edema. Laboratory Data: H and H of 12.6/36.3. Sodium 141, potassium 3.5, bicarb 23, BUN 15, creatinine 0.8 , calcium 8.1. Current Medications: Include insulin. Assessment And Plan: 1.Acute kidney injury secondary to glucose diuresis, recovered, resolved. 2.Hypertension, controlled, optimal, off all blood pressure medication. We will keep holding Bumex and Lasix for the time being. We will follow up as outpatient. Keep holding LM inhibitor. Blood p ressure controlled. 3.Diabetes with diabetic ketoacidosis as by primary. 4.Patient cleared from the renal standpoint for discharge planning. LUIS MIGUEL/SHERYL Voice ID: [id number] Report ID: [id number]
== END 2019-11-30 14:31 | disposition home health service (06) | DRG 871 ==
LOC: ER 15:34 → ERHOLD 18:07 → 3RD-ICU 19:20
PROVIDERS: ADMIT Internal Medicine; ATTEND Internal Medicine
PROC: 06HM33Z Insertion of Infusion Device into Right Femoral Vein, Percutaneous Approach (ICD-10-PCS; principal; 2019-11-27)
PROC: 0T9B70Z Drainage of Bladder with Drainage Device, Via Natural or Artificial Opening (ICD-10-PCS; 2019-11-27)
DX: A41.9 Sepsis, unspecified organism (principal); R57.1 Hypovolemic shock; E11.10 Type 2 diabetes mellitus with ketoacidosis without coma; N17.9 Acute kidney failure, unspecified; E87.2 Acidosis; E78.5 Hyperlipidemia, unspecified; J44.9 Chronic obstructive pulmonary disease, unspecified; E11.9 Type 2 diabetes mellitus without complications; I73.9 Peripheral vascular disease, unspecified; F32.9 Major depressive disorder, single episode, unspecified; K21.9 Gastro-esophageal reflux disease without esophagitis; G47.33 Obstructive sleep apnea (adult) (pediatric); F41.9 Anxiety disorder, unspecified; I25.10 Atherosclerotic heart disease of native coronary artery without angina pectoris; E66.01 Morbid (severe) obesity due to excess calories; E87.5 Hyperkalemia; E87.6 Hypokalemia; E83.42 Hypomagnesemia; Z68.31 Body mass index [BMI] 31.0-31.9, adult
CPT/HCPCS: 36415; 51702; 71045; 71250; 74176; 80048; 80053; 80076; 80202; 80307; 81003; 82010; 82533; 82805; 82947; 83605; 83690; 83735; 83880; 84100; 84443; 84484; 85025; 85610; 87040; 87045; 87046; 87086; 87088; 89055; 93005; 93306; 94640; 96361; 96365; 96366; 96367; 96368; 96375; 97116; 97161; 97530; 99291; C9113; J0696; J1265; J1610; J1644; J1720; J1815; J2543; J3370; J7030; J7040; J7042

== ENCOUNTER 2019-12-11 01:26 | Emergency (ER) | payer MEDICARE, SELFPAY ==
--- OUTSIDE RECORDS SUMMARY | 2019-12-11 01:36 | XMS REPORT ---
:1955 [facility] Address [address] [place] [address] Care Team Providers Name Role Phone MARK [...] Value Reference Range Comments CULTURE (BEAKER) (test mytr=6892) STAPHYLOCOCCUS AUREUS <1+ Staphylococcus aureus Clindamycin (test code=10) Erythromycin (test code=4) Linezolid (test code=40) Nitrofurantoin (test code=23) Oxacillin (test code=14) Rifampin (test code=43) Tetracycline (test code=2) Trimethoprim + Sulfamethoxazole (test code=47) Vancomycin (test code=13) GRAM STAIN RESULT (BEAKER) (test No WBCs skaq=7931) GRAM STAIN RESULT (BEAKER) (test No organisms seen aiea=938100) BLOOD [id number] 20:01:00 Test Item Value Reference Range Comments CULTURE (BEAKER) (test uapx=2373) No growth in 5 days BLOOD [id number] 20:01:00 Test Item Value Reference Range Comments CULTURE (BEAKER) (test aqfz=7234) No growth in 5 days POCT-GLUCOSE [id number] 12:13:00 Test Item Value Reference Range Comments POC-GLUCOSE METER (BEAKER) 143 mg/dL 70-110 TESTED AT [facility] [address] (test gdvp=0915) [facility] [address] SPUTUM CULTURE + GRAM [id number] 10:30:00 Test Item Value Reference Range Comments CULTURE (BEAKER) (test See comment rwhy=1533) GRAM STAIN RESULT (BEAKER) 2+ WBCs (test lxve=3577) GRAM STAIN RESULT (BEAKER) 0-5 epithelial cells (test vuwp=53658) GRAM STAIN RESULT (BEAKER) 1+ gram negative rods (test fwcn=286183) GRAM STAIN RESULT (BEAKER) 1+ gram positive cocci in (test lfvo=498993) clusters 3+ Normal respiratory davie presentPOCT-GLUCOSE [id number] 08:04:00 Test Item Value Reference Range Comments POC-GLUCOSE METER (BEAKER) 162 mg/dL 70-110 TESTED AT [address] (test vrdx=5689) [facility] [address] POCT-GLUCOSE [id number] 21:15:00 Test Item Value Reference Range Comments POC-GLUCOSE METER (BEAKER) 274 mg/dL 70-110 TESTED AT [address] (test boki=8049) [facility] [address] POCT-GLUCOSE [id number] 17:23:00 Test Item Value Reference Range Comments POC-GLUCOSE METER (BEAKER) 169 mg/dL 70-110 TESTED AT [address] (test swxe=5999) [facility] [address] POCT-GLUCOSE [id number] 12:24:00 Test Item Value Reference Range Comments POC-GLUCOSE METER (BEAKER) 182 mg/dL 70-110 TESTED AT [address] (test cboi=6636) [facility] [address] RAD, CHEST, 1 VIEW, NON [id number] 08:36:00Reason for exam:->SHORTNESS OF BREATHShould this be [...] ADOLPH [facility] Radiology Reading Room POCT- GLUCOSE [id number] 07:40:00 Test Item Value Reference Range Comments POC-GLUCOSE METER (BEAKER) 119 mg/dL 70-110 TESTED AT [facility] [address] [facility] (test fobk=0237) [facility] [address] [id number] 03:28:00 Test Item Value Reference Range Comments MAGNESIUM (BEAKER) (test mlwl=670) 2.0 mg/dL 1.6-2.6 BASIC METABOLIC [id number] 03:28:00 Test Item Value Reference Range Comments SODIUM (BEAKER) (test 138 meq/L 136-145 niro=055) POTASSIUM (BEAKER) (test 3.9 meq/L 3.5-5.1 qesz=423) CHLORIDE (BEAKER) (test 104 meq/L 98-107 zqlb=968) CO2 (BEAKER) (test 25 meq/L 22-29 mpro=312) BLOOD UREA NITROGEN 9 mg/dL 7-21 (BEAKER) (test jezo=841) CREATININE (BEAKER) (test 0.69 mg/dL 0.57-1.25 dngv=932) GLUCOSE RANDOM (BEAKER) 168 mg/dL 70-105 (test izio=564) CALCIUM (BEAKER) (test 8.3 mg/dL 8.4-10.2 gpbd=050) EGFR (BEAKER) (test 115 mL/min/1.73 sq m ESTIMATED GFR IS NOT nqxm=8317) ACCURATE CREATININE CLEARANCE IN PREDICTING GLOMERULAR FILTRATION RATE. ESTIMATED GFR IS NOT APPLICABLE FOR DIALYSIS PATIENTS. CBC W/PLT COUNT & AUTO [id number] 03:00:00 Test Item Value Reference Range Comments WHITE BLOOD CELL COUNT (BEAKER) (test xlbw=168) 6.6 K/ L 3.5-10.5 RED BLOOD CELL COUNT (BEAKER) (test zqwo=556) 3.92 M/ L 4.63-6.08 HEMOGLOBIN (BEAKER) (test pyfz=687) 11.7 GM/DL 13.7-17.5 HEMATOCRIT (BEAKER) (test kawt=878) 36.2 % 40.1-51.0 MEAN CORPUSCULAR VOLUME (BEAKER) (test bfeg=390) 92.3 fL 79.0-92.2 MEAN CORPUSCULAR HEMOGLOBIN (BEAKER) (test 29.8 pg 25.7-32.2 gxdf=242) MEAN CORPUSCULAR HEMOGLOBIN CONC (BEAKER) (test 32.3 GM/DL 32.3-36.5 ezgc=670) RED CELL DISTRIBUTION WIDTH (BEAKER) (test 13.0 % 11.6-14.4 lpij=774) PLATELET COUNT (BEAKER) (test burl=006) 246 K/CU MM 150-450 MEAN PLATELET VOLUME (BEAKER) (test vlcu=008) 8.5 fL 9.4-12.4 NUCLEATED RED BLOOD CELLS (BEAKER) (test 0 /100 WBC 0-0 urpn=333) NEUTROPHILS RELATIVE PERCENT (BEAKER) (test 60 % tcgq=674) LYMPHOCYTES RELATIVE PERCENT (BEAKER) (test 28 % nbal=173) MONOCYTES RELATIVE PERCENT (BEAKER) (test 7 % lrgm=129) EOSINOPHILS RELATIVE PERCENT (BEAKER) (test 4 % yowk=037) BASOPHILS RELATIVE PERCENT (BEAKER) (test 0 % xafv=134) NEUTROPHILS ABSOLUTE COUNT (BEAKER) (test 4.01 K/ L 1.78-5.38 qsvw=274) LYMPHOCYTES ABSOLUTE COUNT (BEAKER) (test 1.86 K/ L 1.32-3.57 tsho=209) MONOCYTES ABSOLUTE COUNT (BEAKER) (test 0.47 K/ L 0.30-0.82 uqbh=262) EOSINOPHILS ABSOLUTE COUNT (BEAKER) (test 0.26 K/ L 0.04-0.54 ivyx=649) BASOPHILS ABSOLUTE COUNT (BEAKER) (test 0.02 K/ L 0.01-0.08 kspz=360) IMMATURE GRANULOCYTES-RELATIVE PERCENT (BEAKER) 0 % 0-1 (test dsyx=7941) POCT-GLUCOSE [id number] 21:36:00 Test Item Value Reference Range Comments POC-GLUCOSE METER (BEAKER) 273 mg/dL 70-110 TESTED AT [address] (test ttif=0443) [facility] [address] POCT-GLUCOSE [id number] 17:43:00 Test Item Value Reference Range Comments POC-GLUCOSE METER (BEAKER) 239 mg/dL 70-110 TESTED AT [address] (test bzbt=2777) [place] [address] [id number] 14:55:00 Test Item Value Reference Range Comments POTASSIUM (BEAKER) (test zldu=605) 3.5 meq/L 3.5-5.1 Check Serum Potassium level 2 hours after oral potassium replacement completed or 30 min after intravenous potassium replacement.[id number] 14:55:00 Test Item Value Reference Range Comments MAGNESIUM (BEAKER) (test obbf=792) 2.0 mg/dL 1.6-2.6 Check Serum Potassium level 2 hours after oral potassium replacement completed or 30 min after intravenous potassium replacement.HEMOGLOBIN [id number] 12:05 :00 Test Item Value Reference Range Comments HEMOGLOBIN A1C (BEAKER) (test yleg=021) 6.8 % 4.3-6.1 POCT-GLUCOSE [id number] 11:38:00 Test Item Value Reference Range Comments POC-GLUCOSE METER (BEAKER) 187 mg/dL 70-110 TESTED AT [address] (test prfo=7836) [place] [address] C. DIFFICILE GDH [id number] 10:53:00 Test Item Value Reference Range Comments CDT TOXIN (test Negative Negative gijk=[id number]) CDT GDH ANTIGEN (test Negative Negative No indication of Clostridium asvj=[id number]) difficile infection and no colonization. Discontinue enteric isolation and therapy. Testing performed by Ale[employer] Meta Rapid Cassette Assay. For GDH, published sensitivity of the assay is 98.7% compared to cytotoxicity testing. For Toxin AB, published sensitivity is 87.8% and specificity 99.4% compared to cytotoxicity testing.Verification of kit performance was done by the [facility] Microbiology Lab prior to clinical use.POCT-GLUCOSE [id number] 07:48:00 Test Item Value Reference Range Comments POC-GLUCOSE METER (BEAKER) 191 mg/dL 70-110 TESTED AT [address] (test teoo=1311) [place] [address] TSH/FREE T4 IF [id number] 07:01:00 Test Item Value Reference Range Comments THYROID STIMULATING HORMONE (BEAKER) (test 0.79 uIU/mL 0.35-4.94 uges=466) [id number] 06:52:00 Test Item Value Reference Range Comments MAGNESIUM (BEAKER) (test uiol=454) 2.2 mg/dL 1.6-2.6 BASIC METABOLIC [id number] 06:52:00 Test Item Value Reference Range Comments SODIUM (BEAKER) (test 138 meq/L 136-145 vxry=719) POTASSIUM (BEAKER) (test 4.0 meq/L 3.5-5.1 zuxa=320) CHLORIDE (BEAKER) (test 103 meq/L 98-107 uzbi=989) CO2 (BEAKER) (test 27 meq/L 22-29 wnfv=871) BLOOD UREA NITROGEN 8 mg/dL 7-21 (BEAKER) (test tyxw=619) CREATININE (BEAKER) (test 0.71 mg/dL 0.57-1.25 bwsy=660) GLUCOSE RANDOM (BEAKER) 207 mg/dL 70-105 (test mnor=974) CALCIUM (BEAKER) (test 8.8 mg/dL 8.4-10.2 gybi=902) EGFR (BEAKER) (test 111 mL/min/1.73 sq m ESTIMATED GFR IS NOT ytpk=7631) ACCURATE CREATININE CLEARANCE IN PREDICTING GLOMERULAR FILTRATION RATE. ESTIMATED GFR IS NOT APPLICABLE FOR DIALYSIS PATIENTS. CBC W/PLT COUNT & AUTO [id number] 05:55:00 Test Item Value Reference Range Comments WHITE BLOOD CELL COUNT (BEAKER) (test ssxf=435) 6.1 K/ L 3.5-10.5 RED BLOOD CELL COUNT (BEAKER) (test vnen=083) 4.02 M/ L 4.63-6.08 HEMOGLOBIN (BEAKER) (test zazo=870) 11.9 GM/DL 13.7-17.5 HEMATOCRIT (BEAKER) (test ovfg=643) 36.9 % 40.1-51.0 MEAN CORPUSCULAR VOLUME (BEAKER) (test ismn=908) 91.8 fL 79.0-92.2 MEAN CORPUSCULAR HEMOGLOBIN (BEAKER) (test 29.6 pg 25.7-32.2 yfyl=710) MEAN CORPUSCULAR HEMOGLOBIN CONC (BEAKER) (test 32.2 GM/DL 32.3-36.5 ogvl=591) RED CELL DISTRIBUTION WIDTH (BEAKER) (test 13.0 % 11.6-14.4 mgpr=349) PLATELET COUNT (BEAKER) (test btya=072) 298 K/CU MM 150-450 MEAN PLATELET VOLUME (BEAKER) (test abzh=983) 8.5 fL 9.4-12.4 NUCLEATED RED BLOOD CELLS (BEAKER) (test 0 /100 WBC 0-0 mfxs=748) NEUTROPHILS RELATIVE PERCENT (BEAKER) (test 69 % txqq=468) LYMPHOCYTES RELATIVE PERCENT (BEAKER) (test 22 % ypis=924) MONOCYTES RELATIVE PERCENT (BEAKER) (test 7 % tjyx=185) EOSINOPHILS RELATIVE PERCENT (BEAKER) (test 1 % uvjb=428) BASOPHILS RELATIVE PERCENT (BEAKER) (test 0 % znmk=738) NEUTROPHILS ABSOLUTE COUNT (BEAKER) (test 4.23 K/ L 1.78-5.38 root=596) LYMPHOCYTES ABSOLUTE COUNT (BEAKER) (test 1.37 K/ L 1.32-3.57 bvkn=241) MONOCYTES ABSOLUTE COUNT (BEAKER) (test 0.42 K/ L 0.30-0.82 iszl=721) EOSINOPHILS ABSOLUTE COUNT (BEAKER) (test 0.07 K/ L 0.04-0.54 zdxu=057) BASOPHILS ABSOLUTE COUNT (BEAKER) (test 0.02 K/ L 0.01-0.08 hnmn=457) IMMATURE GRANULOCYTES-RELATIVE PERCENT (BEAKER) 0 % 0-1 (test mqst=3879) RAD, CHEST, 1 VIEW, NON [id number] 05:45:00Reason for exam:->SHORTNESS OF BREATHShould this be performed at the bedside?->YesFINAL REPORT RAD, CHEST, 1 VIEW, NON DEPT INDICATION: SHORTNESS OF BREATH COMPARISON: Prior day's exam FINDINGS: Portable frontal view of the chest. IMPRESSION: Lungs and pleura: Unchanged airspace and pleural opacities. No pneumothorax.Heart and mediastinum: Stable contours.Stable surgical changes.Additional findings: None. Signed: Ozzie Avila Verified Date/Time: 04/23/2019 05:45:08 POCT-GLUCOSE [id number] 22:28:00 Test Item Value Reference Range Comments POC-GLUCOSE METER (BEAKER) 241 mg/dL 70-110 TESTED AT [address] (test kzar=3674) [facility] [address] [id number] 20:51:00 Test Item Value Reference Range Comments MAGNESIUM (BEAKER) (test ngmv=552) 1.8 mg/dL 1.6-2.6 CALCIUM, [id number] 20:38:00 Test Item Value Reference Range Comments CALCIUM IONIZED (BEAKER) (test raur=212) 1.08 mmol/L 1.12-1.27 PH, BLOOD (BEAKER) (test hofd=4543) 7.39 POTASSIUM-STAT [id number] 20:37:00 Test Item Value Reference Range Comments POTASSIUM (BEAKER) (test kinq=819) 3.5 meq/L 3.6-5.5 POCT-GLUCOSE [id number] 18:32:00 Test Item Value Reference Range Comments POC-GLUCOSE METER (BEAKER) 260 mg/dL 70-110 TESTED AT [address] (test dfwr=4569) [place] [id number] POCT-GLUCOSE [id number] 12:42:00 Test Item Value Reference Range Comments POC-GLUCOSE METER (BEAKER) 187 mg/dL 70-110 TESTED AT [address] (test pxig=6377) [facility] [address] CBC W/PLT COUNT & AUTO [id number] 10:15:00 Test Item Value Reference Range Comments WHITE BLOOD CELL COUNT (BEAKER) (test rcax=113) 3.7 K/ L 3.5-10.5 RED BLOOD CELL COUNT (BEAKER) (test lfjo=803) 3.91 M/ L 4.63-6.08 HEMOGLOBIN (BEAKER) (test pgyk=743) 11.6 GM/DL 13.7-17.5 HEMATOCRIT (BEAKER) (test igjf=707) 35.3 % 40.1-51.0 MEAN CORPUSCULAR VOLUME (BEAKER) (test vjrx=136) 90.3 fL 79.0-92.2 MEAN CORPUSCULAR HEMOGLOBIN (BEAKER) (test 29.7 pg 25.7-32.2 xjnv=359) MEAN CORPUSCULAR HEMOGLOBIN CONC (BEAKER) (test 32.9 GM/DL 32.3-36.5 hgpr=275) RED CELL DISTRIBUTION WIDTH (BEAKER) (test 13.1 % 11.6-14.4 wmon=875) PLATELET COUNT (BEAKER) (test kjbh=558) 279 K/CU MM 150-450 MEAN PLATELET VOLUME (BEAKER) (test lbgx=975) 8.6 fL 9.4-12.4 NUCLEATED RED BLOOD CELLS (BEAKER) (test 0 /100 WBC 0-0 vlmy=465) (CELLAVISION MANUAL DIFF)2019-04-22 10:15:00 Test Item Value Reference Range Comments NEUTROPHILS - REL (CELLAVISION)(BEAKER) (test 74 % fpok=1632) LYMPHOCYTES - REL (CELLAVISION)(BEAKER) (test 17 % cmjp=5331) MONOCYTES - REL (CELLAVISION)(BEAKER) (test 6 % wrno=9192) BASOPHILS - REL (CELLAVISION)(BEAKER) (test 2 % aehb=2104) BANDS - REL (CELLAVISION)(BEAKER) (test uwko=2368) 1 % 0-10 NEUTROPHILS - ABS (CELLAVISION)(BEAKER) (test 2.74 K/ul 1.78-5.38 ngpe=4044) LYMPHOCYTES - ABS (CELLAVISION)(BEAKER) (test 0.63 K/ul 1.32-3.57 wxmp=8654) MONOCYTES - ABS (CELLAVISION)(BEAKER) (test 0.22 K/uL 0.30-0.82 lfxy=4492) BASOPHILS - ABS (CELLAVISION)(BEAKER) (test 0.07 K/uL 0.01-0.08 oayc=4096) BANDS - ABS (CELLAVISION)(BEAKER) (test pddc=0362) 0.04 K/uL 0.00-0.80 TOTAL COUNTED (BEAKER) (test ziwv=1133) 100 WBC MORPHOLOGY (BEAKER) (test bfdq=859) Normal PLT MORPHOLOGY (BEAKER) (test mhpv=551) Normal ANISOCYTOSIS (BEAKER) (test wapq=410) 1+ few MICROCYTES (BEAKER) (test rosp=340) 1+ few ARTIFACT (CELLAVISION)(BEAKER) (test pxxy=1091) Present PLATELET CONCENTRATION (CELLAVISION)(BEAKER) (test Adequate dnvc=9803) Received comment: User comments: Slide comments:RAD, CHEST, 1 VIEW, NON [id number] 08:02:00Reason for exam:->SHORTNESS OF BREATHShould this be performed at the bedside?->YesFINAL REPORT CLINICAL HISTORY: SHORTNESS OF BREATH TECHNIQUE: 1 view of the chest. COMPARISON: 04/21/2019 IMPRESSION: The lung volumes are again seen with bibasilar pleural-parenchymal opacities unchanged. The cardiomediastinal silhouette is magnified by technique with sternotomywires. Signed: Yimi Harkins MDReport Verified Date/Time: 04/22 08:02:38 Reading Location: [facility] Radiology Reading Room [id number] 06:04:00 Test Item Value Reference Range Comments MAGNESIUM (BEAKER) (test viek=929) 2.3 mg/dL 1.6-2.6 BASIC METABOLIC [id number] 06:04:00 Test Item Value Reference Range Comments SODIUM (BEAKER) (test 138 meq/L 136-145 doug=590) POTASSIUM (BEAKER) (test 4.2 meq/L 3.5-5.1 nrxf=977) CHLORIDE (BEAKER) (test 103 meq/L 98-107 rxmu=708) CO2 (BEAKER) (test 29 meq/L 22-29 aucf=358) BLOOD UREA NITROGEN 8 mg/dL 7-21 (BEAKER) (test ehto=892) CREATININE (BEAKER) (test 0.66 mg/dL 0.57-1.25 wmrp=063) GLUCOSE RANDOM (BEAKER) 201 mg/dL 70-105 (test pgdr=873) CALCIUM (BEAKER) (test 8.5 mg/dL 8.4-10.2 atre=627) EGFR (BEAKER) (test 121 mL/min/1.73 sq m ESTIMATED GFR IS NOT bmfc=3677) ACCURATE CREATININE CLEARANCE IN PREDICTING GLOMERULAR FILTRATION RATE. ESTIMATED GFR IS NOT APPLICABLE FOR DIALYSIS PATIENTS. TROPONIN [id number] 06:03:00 Test Item Value Reference Range Comments TROPONIN I (BEAKER) (test ywia=465) 0.01 ng/mL 0.00-0.03 Troponin I (TnI) levels [...] and persistent tachyarrhythmia.CT, EXTREMITY, LOWER WITHOUT CONTRAST, [id number] 04:17:00Extend to ankleFINAL REPORT CLINICAL HISTORY: Lower [...] MDReport Verified Date/Time: 04/22/2019 04:17:42 Reading Location: [address] Reading Room Electronically signed by: BLAIR DANG M.D. on 04:17 AMCT, CHEST WITH IV CONTRAST- PE TEST [id number] 04:11: 00With and without contrast per surgical [...] MDReport Verified Date/Time: 04/22/2019 04:11:13 Reading Location: [address] Reading Room TROPONIN [id number] 00:10:00 Test Item Value Reference Range Comments TROPONIN I (BEAKER) (test wdzf=798) < ng/mL 0.00-0.03 Troponin I (TnI) levels [...] completed or 30 min after intravenous potassium replacement.[id number] 23:56:00 Test Item Value Reference Range Comments POTASSIUM (BEAKER) (test vsvw=513) 3.9 meq/L 3.5-5.1 Check Serum Potassium level 2 hours after oral potassium replacement completed or 30 min after intravenous potassium replacement.[id number] 23:56:00 Test Item Value Reference Range Comments MAGNESIUM (BEAKER) (test jmcr=498) 1.9 mg/dL 1.6-2.6 Check Serum Potassium level 2 hours after oral potassium replacement completed or 30 min after intravenous potassium replacement.CBC W/PLT COUNT & AUTO [id number] 23:38:00 Test Item Value Reference Range Comments WHITE BLOOD CELL COUNT (BEAKER) (test spcq=432) 4.3 K/ L 3.5-10.5 RED BLOOD CELL COUNT (BEAKER) (test ljis=859) 3.86 M/ L 4.63-6.08 HEMOGLOBIN (BEAKER) (test iztc=673) 11.6 GM/DL 13.7-17.5 HEMATOCRIT (BEAKER) (test cbhl=530) 35.3 % 40.1-51.0 MEAN CORPUSCULAR VOLUME (BEAKER) (test vpjq=037) 91.5 fL 79.0-92.2 MEAN CORPUSCULAR HEMOGLOBIN (BEAKER) (test 30.1 pg 25.7-32.2 ynbu=897) MEAN CORPUSCULAR HEMOGLOBIN CONC (BEAKER) (test 32.9 GM/DL 32.3-36.5 zabp=999) RED CELL DISTRIBUTION WIDTH (BEAKER) (test 13.0 % 11.6-14.4 wyvu=303) PLATELET COUNT (BEAKER) (test sbmk=271) 286 K/CU MM 150-450 MEAN PLATELET VOLUME (BEAKER) (test twct=052) 8.6 fL 9.4-12.4 NUCLEATED RED BLOOD CELLS (BEAKER) (test 0 /100 WBC 0-0 fyyf=014) NEUTROPHILS RELATIVE PERCENT (BEAKER) (test 63 % jvem=558) LYMPHOCYTES RELATIVE PERCENT (BEAKER) (test 25 % nxgz=785) MONOCYTES RELATIVE PERCENT (BEAKER) (test 9 % esqz=494) EOSINOPHILS RELATIVE PERCENT (BEAKER) (test 3 % jjrs=061) BASOPHILS RELATIVE PERCENT (BEAKER) (test 0 % zxcv=918) NEUTROPHILS ABSOLUTE COUNT (BEAKER) (test 2.70 K/ L 1.78-5.38 daxw=410) LYMPHOCYTES ABSOLUTE COUNT (BEAKER) (test 1.05 K/ L 1.32-3.57 gvxr=794) MONOCYTES ABSOLUTE COUNT (BEAKER) (test 0.40 K/ L 0.30-0.82 xozs=550) EOSINOPHILS ABSOLUTE COUNT (BEAKER) (test 0.11 K/ L 0.04-0.54 qjop=302) BASOPHILS ABSOLUTE COUNT (BEAKER) (test 0.01 K/ L 0.01-0.08 ceck=954) IMMATURE GRANULOCYTES-RELATIVE PERCENT (BEAKER) 1 % 0-1 (test mwai=6289) POCT-GLUCOSE [id number] 22:02:00 Test Item Value Reference Range Comments POC-GLUCOSE METER (BEAKER) 227 mg/dL 70-110 TESTED AT [facility] [address] [facility] (test atbe=0896) [facility] [address] [id number] 21:03:00 Test Item Value Reference Range Comments D-DIMER QUANTITATIVE (BEAKER) (test ckla=103) 3.21 MG/L FEU <0.50 Intended Use: The [...] exclusion of thrombosis is within 95-100% range.TROPONIN [id number] 20:59:00 Test Item Value Reference Range Comments TROPONIN I (BEAKER) (test ptes=046) < ng/mL 0.00-0.03 Troponin I (TnI) levels [...] acute neurological disease, and persistent tachyarrhythmia.HEPATIC FUNCTION [id number] 20:53: 00 Test Item Value Reference Range Comments TOTAL PROTEIN (BEAKER) (test lcya=708) 6.8 gm/dL 6.0-8.3 ALBUMIN (BEAKER) (test peei=7083) 3.6 g/dL 3.5-5.0 BILIRUBIN TOTAL (BEAKER) (test levr=847) 0.5 mg/dL 0.2-1.2 BILIRUBIN DIRECT (BEAKER) (test yyjh=609) 0.2 mg/dL 0.1-0.5 ALKALINE PHOSPHATASE (BEAKER) (test eqov=610) 99 U/L 40-150 AST (SGOT) (BEAKER) (test qebs=277) 13 U/L 5-34 ALT (SGPT) (BEAKER) (test yrgo=016) 10 U/L 6-55 LACTIC ACID, [id number] 20:48:00 Test Item Value Reference Range Comments LACTATE BLOOD VENOUS (2) 1.4 mmol/L 0.5-2.2 Specimen slightly hemolyzed (BEAKER) (test gxcm=6588) BLOOD GAS, [id number] 20:17:00 Test Item Value Reference Range Comments PH VENOUS (BEAKER) (test pdpy=554) 7.38 7.32-7.42 PCO2 VENOUS (BEAKER) (test pjmh=470) 52 mmHg 41-51 PO2 VENOUS (BEAKER) (test csyh=080) 47 mmHg 25-40 O2 SATURATION VENOUS (BEAKER) (test ndvl=429) 80.9 % 40.0-70.0 HCO3 VENOUS (BEAKER) (test rlka=656) 30 mmol/L 21-29 BASE EXCESS VENOUS (BEAKER) (test kjff=463) 3.7 mmol/L -2.0-3.0 PATIENT TEMPERATURE (BEAKER) (test pakd=2935) 37.0 C FIO2 (BEAKER) (test efkd=1434) 100.0 % [id number] 18:36:00 Test Item Value Reference Range Comments PROCALCITONIN (BEAKER) (test hfjp=4958) < ng/mL <0.05 SEPSIS RISK (ng/mL)Low: 0.05-0.50Intermediate: 0.51-2.00High: & gt;=[id number] 18:24:00 Test Item Value Reference Range Comments MAGNESIUM (BEAKER) (test hwie=686) 0.9 mg/dL 1.6-2.6 [id number] 18:17:00 Test Item Value Reference Range Comments PHOSPHORUS (BEAKER) (test wolf=820) 2.5 mg/dL 2.3-4.7 LACTIC ACID, [id number] 18:15:00 Test Item Value Reference Range Comments LACTATE BLOOD VENOUS (2) (BEAKER) (test 2.0 mmol/L 0.5-2.2 rmeh=5826) PROTHROMBIN TIME/[id number] 18:09:00 Test Item Value Reference Range Comments PROTIME (BEAKER) (test xrqy=096) 15.8 seconds 11.9-14.2 INR (BEAKER) (test zwxt=377) 1.3 <=5.9 Effective 03/27/2019: PT Reference Range ChangeNew: 11.9-14.2 Previous: 11.7- 14.7RECOMMENDED COUMADIN/WARFARIN INR THERAPY RANGESSTANDARD DOSE: 2.0-3.0 Includes: PROPHYLAXIS for venous thrombosis, systemic embolization; TREATMENT for venous thrombosis and/or pulmonary embolus.HIGH RISK: Target INR is2.5-3.5 for patients wiht mechanical heart valves.OXYGEN SATURATION, [id number] 18:04:00 Test Item Value Reference Range Comments O2 SATURATION (MEASURED) (BEAKER) (test igvd=3615) 84.9 % If patient has internal jugular ( IJ) or subclavian central line or PICC line. Draw from distal port. Label as central venous oxygen.TROPONIN [id number] 16:28 :00 Test Item Value Reference Range Comments TROPONIN I (BEAKER) (test iinv=201) < ng/mL 0.00-0.03 Troponin I (TnI) levels [...] acute neurological disease, and persistent tachyarrhythmia.POCT-LACTIC ACID, [id number] 16:27 :00 Test Item Value Reference Range Comments POC-LACTIC ACID, VENOUS 3.3 mmol/L 0.9-1.7 TESTED AT [facility] [address] [facility] (BEAKER) (test jfrk=6520) [facility] [address] BASIC METABOLIC [id number] 16:19:00 Test Item Value Reference Range Comments SODIUM (BEAKER) (test 134 meq/L 136-145 feqs=911) POTASSIUM (BEAKER) (test 4.5 meq/L 3.5-5.1 Specimen moderately uxty=831) hemolyzed CHLORIDE (BEAKER) (test 101 meq/L 98-107 kwdh=590) CO2 (BEAKER) (test 22 meq/L 22-29 gmiy=739) BLOOD UREA NITROGEN 9 mg/dL 7-21 (BEAKER) (test srry=503) CREATININE (BEAKER) (test 0.75 mg/dL 0.57-1.25 Specimen moderately zgku=534) hemolyzed GLUCOSE RANDOM (BEAKER) 181 mg/dL 70-105 (test zcad=938) CALCIUM (BEAKER) (test 8.7 mg/dL 8.4-10.2 drzw=043) EGFR (BEAKER) (test 105 mL/min/1.73 sq m ESTIMATED GFR IS NOT lhpx=5879) ACCURATE CREATININE CLEARANCE IN PREDICTING GLOMERULAR FILTRATION RATE. ESTIMATED GFR IS NOT APPLICABLE FOR DIALYSIS PATIENTS. BLOOD GAS, [id number] 16:10:00 Test Item Value Reference Range Comments PH ARTERIAL (BEAKER) (test sgbn=420) 7.43 7.35-7.45 PCO2 ARTERIAL (BEAKER) (test nhet=405) 43 mmHg 35-45 PO2 ARTERIAL (BEAKER) (test clql=887) 141 mmHg 80-90 O2 SATURATION ARTERIAL (BEAKER) (test dllu=171) 98.9 % 96.0-97.0 HCO3 ARTERIAL (BEAKER) (test qesv=703) 28 mmol/L 21-29 BASE EXCESS ARTERIAL (BEAKER) (test oudm=399) 3.1 mmol/L -2.0-3.0 PATIENT TEMPERATURE (BEAKER) (test rnui=9623) 36.5 C FIO2 (BEAKER) (test hdou=3872) 60.0 % RAD, CHEST, 1 VIEW, NON [id number] 16:08:00Reason for exam:->SHORTNESS OF BREATHShould this be performed at the bedside?->YesFINAL REPORT Comparison: 04/07/2019 TECHNIQUE: Single view of the chest FINDINGS: Lung volumes are low. Bibasilar opacities may represent small pleural effusions with adjacent airspace disease. Cardiac silhouette is enlarged. Post surgical changes in the mediastinum. No acute skeletal abnormality. Signed: Shailesh Harding MDReport Verified Date/Time: 04/21/2019 16:08:26 Reading Location: [address] Transitional Reading Room POCT-GLUCOSE [id number] 13:16:00 Test Item Value Reference Range Comments POC-GLUCOSE METER (BEAKER) 231 mg/dL 70-110 TESTED AT [address] (test tmsx=6036) [facility] [id number] POCT-GLUCOSE [id number] 07:07:00 Test Item Value Reference Range Comments POC-GLUCOSE METER (BEAKER) 157 mg/dL 70-110 TESTED AT [address] (test bltg=1685) [facility] [address] [id number] 05:11:00 Test Item Value Reference Range Comments MAGNESIUM (BEAKER) (test ensq=072) 2.0 mg/dL 1.6-2.6 BASIC METABOLIC [id number] 05:11:00 Test Item Value Reference Range Comments SODIUM (BEAKER) (test 137 meq/L 136-145 cbcm=653) POTASSIUM (BEAKER) (test 3.8 meq/L 3.5-5.1 lmwb=568) CHLORIDE (BEAKER) (test 101 meq/L 98-107 cukr=366) CO2 (BEAKER) (test 28 meq/L 22-29 ntga=839) BLOOD UREA NITROGEN 10 mg/dL 7-21 (BEAKER) (test ifbo=008) CREATININE (BEAKER) (test 0.66 mg/dL 0.57-1.25 timr=865) GLUCOSE RANDOM (BEAKER) 164 mg/dL 70-105 (test khem=064) CALCIUM (BEAKER) (test 8.6 mg/dL 8.4-10.2 eywq=326) EGFR (BEAKER) (test 121 mL/min/1.73 sq m ESTIMATED GFR IS NOT iebh=5584) ACCURATE CREATININE CLEARANCE IN PREDICTING GLOMERULAR FILTRATION RATE. ESTIMATED GFR IS NOT APPLICABLE FOR DIALYSIS PATIENTS. CBC W/PLT COUNT & AUTO [id number] 04:45:00 Test Item Value Reference Range Comments WHITE BLOOD CELL COUNT (BEAKER) (test fboj=027) 8.5 K/ L 3.5-10.5 RED BLOOD CELL COUNT (BEAKER) (test pndj=493) 3.52 M/ L 4.63-6.08 HEMOGLOBIN (BEAKER) (test jygx=999) 10.7 GM/DL 13.7-17.5 HEMATOCRIT (BEAKER) (test kcqa=547) 31.9 % 40.1-51.0 MEAN CORPUSCULAR VOLUME (BEAKER) (test brtw=894) 90.6 fL 79.0-92.2 MEAN CORPUSCULAR HEMOGLOBIN (BEAKER) (test 30.4 pg 25.7-32.2 guah=907) MEAN CORPUSCULAR HEMOGLOBIN CONC (BEAKER) (test 33.5 GM/DL 32.3-36.5 mfwp=786) RED CELL DISTRIBUTION WIDTH (BEAKER) (test 12.8 % 11.6-14.4 qela=771) PLATELET COUNT (BEAKER) (test ldxj=624) 262 K/CU MM 150-450 MEAN PLATELET VOLUME (BEAKER) (test kacq=167) 8.8 fL 9.4-12.4 NUCLEATED RED BLOOD CELLS (BEAKER) (test 0 /100 WBC 0-0 cdxa=164) NEUTROPHILS RELATIVE PERCENT (BEAKER) (test 68 % erxh=880) LYMPHOCYTES RELATIVE PERCENT (BEAKER) (test 19 % eomn=603) MONOCYTES RELATIVE PERCENT (BEAKER) (test 9 % gmqm=923) EOSINOPHILS RELATIVE PERCENT (BEAKER) (test 3 % txmz=481) BASOPHILS RELATIVE PERCENT (BEAKER) (test 0 % viie=249) NEUTROPHILS ABSOLUTE COUNT (BEAKER) (test 5.76 K/ L 1.78-5.38 xsix=436) LYMPHOCYTES ABSOLUTE COUNT (BEAKER) (test 1.64 K/ L 1.32-3.57 insd=347) MONOCYTES ABSOLUTE COUNT (BEAKER) (test 0.73 K/ L 0.30-0.82 pkjs=975) EOSINOPHILS ABSOLUTE COUNT (BEAKER) (test 0.25 K/ L 0.04-0.54 ihky=230) BASOPHILS ABSOLUTE COUNT (BEAKER) (test 0.03 K/ L 0.01-0.08 lbjl=382) IMMATURE GRANULOCYTES-RELATIVE PERCENT (BEAKER) 1 % 0-1 (test dpgz=9305) POCT-GLUCOSE [id number] 22:03:00 Test Item Value Reference Range Comments POC-GLUCOSE METER (BEAKER) 187 mg/dL 70-110 TESTED AT [address] (test uimf=4659) [place] [address] POCT-GLUCOSE [id number] 17:09:00 Test Item Value Reference Range Comments POC-GLUCOSE METER (BEAKER) 265 mg/dL 70-110 TESTED AT [address] (test llxc=3064) [place] [id number] LACTIC ACID, [id number] 13:50:00 Test Item Value Reference Range Comments LACTATE BLOOD VENOUS (2) 1.4 mmol/L 0.5-2.2 Specimen slightly hemolyzed (BEAKER) (test lccg=1488) [id number] 12:18:00 Test Item Value Reference Range Comments MAGNESIUM (BEAKER) (test amxk=487) 1.5 mg/dL 1.6-2.6 BASIC METABOLIC [id number] 12:18:00 Test Item Value Reference Range Comments SODIUM (BEAKER) (test 134 meq/L 136-145 pkoa=306) POTASSIUM (BEAKER) (test 3.5 meq/L 3.5-5.1 hkbg=890) CHLORIDE (BEAKER) (test 98 meq/L 98-107 oqvg=154) CO2 (BEAKER) (test 26 meq/L 22-29 vfda=440) BLOOD UREA NITROGEN 13 mg/dL 7-21 (BEAKER) (test svai=356) CREATININE (BEAKER) (test 0.68 mg/dL 0.57-1.25 vuhr=592) GLUCOSE RANDOM (BEAKER) 209 mg/dL 70-105 (test obfm=467) CALCIUM (BEAKER) (test 8.5 mg/dL 8.4-10.2 ppvp=562) EGFR (BEAKER) (test 117 mL/min/1.73 sq m ESTIMATED GFR IS NOT mzkg=9895) ACCURATE CREATININE CLEARANCE IN PREDICTING GLOMERULAR FILTRATION RATE. ESTIMATED GFR IS NOT APPLICABLE FOR DIALYSIS PATIENTS. POCT-GLUCOSE [id number] 12:07:00 Test Item Value Reference Range Comments POC-GLUCOSE METER (BEAKER) 222 mg/dL 70-110 TESTED AT [facility] [address] [facility] (test iqhr=0436) [facility] [address] CBC W/PLT COUNT & AUTO [id number] 12:02:00 Test Item Value Reference Range Comments WHITE BLOOD CELL COUNT (BEAKER) (test pfuy=899) 9.9 K/ L 3.5-10.5 RED BLOOD CELL COUNT (BEAKER) (test ubzp=169) 3.65 M/ L 4.63-6.08 HEMOGLOBIN (BEAKER) (test ozyb=030) 11.2 GM/DL 13.7-17.5 HEMATOCRIT (BEAKER) (test izuj=384) 32.5 % 40.1-51.0 MEAN CORPUSCULAR VOLUME (BEAKER) (test qutu=865) 89.0 fL 79.0-92.2 MEAN CORPUSCULAR HEMOGLOBIN (BEAKER) (test 30.7 pg 25.7-32.2 byjc=335) MEAN CORPUSCULAR HEMOGLOBIN CONC (BEAKER) (test 34.5 GM/DL 32.3-36.5 vzeg=752) RED CELL DISTRIBUTION WIDTH (BEAKER) (test 12.6 % 11.6-14.4 sgri=582) PLATELET COUNT (BEAKER) (test czxr=273) 304 K/CU MM 150-450 MEAN PLATELET VOLUME (BEAKER) (test drcm=751) 9.1 fL 9.4-12.4 NUCLEATED RED BLOOD CELLS (BEAKER) (test 0 /100 WBC 0-0 cyas=627) NEUTROPHILS RELATIVE PERCENT (BEAKER) (test 72 % ucds=789) LYMPHOCYTES RELATIVE PERCENT (BEAKER) (test 16 % syhx=182) MONOCYTES RELATIVE PERCENT (BEAKER) (test 8 % oslo=966) EOSINOPHILS RELATIVE PERCENT (BEAKER) (test 2 % gcwl=673) BASOPHILS RELATIVE PERCENT (BEAKER) (test 1 % vpst=985) NEUTROPHILS ABSOLUTE COUNT (BEAKER) (test 7.14 K/ L 1.78-5.38 thfx=632) LYMPHOCYTES ABSOLUTE COUNT (BEAKER) (test 1.61 K/ L 1.32-3.57 uyua=397) MONOCYTES ABSOLUTE COUNT (BEAKER) (test 0.81 K/ L 0.30-0.82 rtwf=116) EOSINOPHILS ABSOLUTE COUNT (BEAKER) (test 0.22 K/ L 0.04-0.54 zfys=461) BASOPHILS ABSOLUTE COUNT (BEAKER) (test 0.05 K/ L 0.01-0.08 ycqf=721) IMMATURE GRANULOCYTES-RELATIVE PERCENT (BEAKER) 1 % 0-1 (test jsiq=9004) POCT-GLUCOSE [id number] 08:20:00 Test Item Value Reference Range Comments POC-GLUCOSE METER (BEAKER) 186 mg/dL 70-110 TESTED AT [address] (test mzic=9128) [place] [id number] POCT-GLUCOSE [id number] 22:28:00 Test Item Value Reference Range Comments POC-GLUCOSE METER (BEAKER) 249 mg/dL 70-110 TESTED AT [address] (test heft=4732) [place] [id number] POCT-GLUCOSE [id number] 16:58:00 Test Item Value Reference Range Comments POC-GLUCOSE METER (BEAKER) 246 mg/dL 70-110 TESTED AT [address] (test ftrk=3810) [place] [id number] POCT-GLUCOSE [id number] 12:30:00 Test Item Value Reference Range Comments POC-GLUCOSE METER (BEAKER) 228 mg/dL 70-110 TESTED AT [address] (test orpd=7927) [place] [id number] POCT-GLUCOSE [id number] 08:57:00 Test Item Value Reference Range Comments POC-GLUCOSE METER (BEAKER) 196 mg/dL 70-110 TESTED AT [address] (test mffy=2784) [place] [id number] 08:00:00 Test Item Value Reference Range Comments MAGNESIUM (BEAKER) (test gnyu=269) 1.8 mg/dL 1.6-2.6 BASIC METABOLIC [id number] 08:00:00 Test Item Value Reference Range Comments SODIUM (BEAKER) (test 134 meq/L 136-145 bmbl=654) POTASSIUM (BEAKER) (test 3.5 meq/L 3.5-5.1 jmgl=115) CHLORIDE (BEAKER) (test 98 meq/L 98-107 gjmr=004) CO2 (BEAKER) (test 30 meq/L 22-29 xwqh=091) BLOOD UREA NITROGEN 15 mg/dL 7-21 (BEAKER) (test xnwl=050) CREATININE (BEAKER) (test 0.66 mg/dL 0.57-1.25 ehdi=567) GLUCOSE RANDOM (BEAKER) 175 mg/dL 70-105 (test xdgv=236) CALCIUM (BEAKER) (test 8.5 mg/dL 8.4-10.2 qykh=829) EGFR (BEAKER) (test 121 mL/min/1.73 sq m ESTIMATED GFR IS NOT hebt=1613) ACCURATE CREATININE CLEARANCE IN PREDICTING GLOMERULAR FILTRATION RATE. ESTIMATED GFR IS NOT APPLICABLE FOR DIALYSIS PATIENTS. CBC W/PLT COUNT & AUTO [id number] 05:01:00 Test Item Value Reference Range Comments WHITE BLOOD CELL COUNT (BEAKER) (test tsst=249) 10.7 K/ L 3.5-10.5 RED BLOOD CELL COUNT (BEAKER) (test kigz=828) 3.65 M/ L 4.63-6.08 HEMOGLOBIN (BEAKER) (test vimi=173) 11.0 GM/DL 13.7-17.5 HEMATOCRIT (BEAKER) (test lgyr=618) 33.4 % 40.1-51.0 MEAN CORPUSCULAR VOLUME (BEAKER) (test fsyy=397) 91.5 fL 79.0-92.2 MEAN CORPUSCULAR HEMOGLOBIN (BEAKER) (test 30.1 pg 25.7-32.2 lacr=325) MEAN CORPUSCULAR HEMOGLOBIN CONC (BEAKER) (test 32.9 GM/DL 32.3-36.5 hnwe=197) RED CELL DISTRIBUTION WIDTH (BEAKER) (test 12.6 % 11.6-14.4 duuo=163) PLATELET COUNT (BEAKER) (test vtcn=119) 244 K/CU MM 150-450 MEAN PLATELET VOLUME (BEAKER) (test bmjj=960) 9.5 fL 9.4-12.4 NUCLEATED RED BLOOD CELLS (BEAKER) (test 0 /100 WBC 0-0 fjfl=532) NEUTROPHILS RELATIVE PERCENT (BEAKER) (test 70 % ohwq=584) LYMPHOCYTES RELATIVE PERCENT (BEAKER) (test 18 % lqsp=104) MONOCYTES RELATIVE PERCENT (BEAKER) (test 9 % evnl=762) EOSINOPHILS RELATIVE PERCENT (BEAKER) (test 3 % lyux=477) BASOPHILS RELATIVE PERCENT (BEAKER) (test 1 % hccd=354) NEUTROPHILS ABSOLUTE COUNT (BEAKER) (test 7.44 K/ L 1.78-5.38 toaq=884) LYMPHOCYTES ABSOLUTE COUNT (BEAKER) (test 1.91 K/ L 1.32-3.57 wxhl=087) MONOCYTES ABSOLUTE COUNT (BEAKER) (test 0.92 K/ L 0.30-0.82 uebe=541) EOSINOPHILS ABSOLUTE COUNT (BEAKER) (test 0.29 K/ L 0.04-0.54 gwjx=331) BASOPHILS ABSOLUTE COUNT (BEAKER) (test 0.06 K/ L 0.01-0.08 qluw=606) IMMATURE GRANULOCYTES-RELATIVE PERCENT (BEAKER) 1 % 0-1 (test vawd=6552) POCT-GLUCOSE [id number] 22:17:00 Test Item Value Reference Range Comments POC-GLUCOSE METER (BEAKER) 197 mg/dL 70-110 TESTED AT [address] (test jvrn=5366) [place] [address] POCT-GLUCOSE [id number] 17:38:00 Test Item Value Reference Range Comments POC-GLUCOSE METER (BEAKER) 226 mg/dL 70-110 TESTED AT [address] (test bnhw=8770) [place] [address] POCT-GLUCOSE [id number] 12:21:00 Test Item Value Reference Range Comments POC-GLUCOSE METER (BEAKER) 194 mg/dL 70-110 TESTED AT [address] (test ihou=7714) [place] [address] POCT-GLUCOSE [id number] 09:25:00 Test Item Value Reference Range Comments POC-GLUCOSE METER (BEAKER) 169 mg/dL 70-110 TESTED AT [address] (test zdzp=5400) [place] [address] BASIC METABOLIC [id number] 06:56:00 Test Item Value Reference Range Comments SODIUM (BEAKER) (test 137 meq/L 136-145 llae=274) POTASSIUM (BEAKER) (test 3.7 meq/L 3.5-5.1 lowe=295) CHLORIDE (BEAKER) (test 101 meq/L 98-107 ttmb=555) CO2 (BEAKER) (test 29 meq/L 22-29 hezf=014) BLOOD UREA NITROGEN 17 mg/dL 7-21 (BEAKER) (test midl=278) CREATININE (BEAKER) (test 0.64 mg/dL 0.57-1.25 jzwl=012) GLUCOSE RANDOM (BEAKER) 192 mg/dL 70-105 (test rtrl=185) CALCIUM (BEAKER) (test 8.2 mg/dL 8.4-10.2 awoh=176) EGFR (BEAKER) (test 126 mL/min/1.73 sq m ESTIMATED GFR IS NOT mjgn=5068) ACCURATE CREATININE CLEARANCE IN PREDICTING GLOMERULAR FILTRATION RATE. ESTIMATED GFR IS NOT APPLICABLE FOR DIALYSIS PATIENTS. [id number] 06:47:00 Test Item Value Reference Range Comments MAGNESIUM (BEAKER) (test odfa=695) 2.0 mg/dL 1.6-2.6 CBC W/PLT COUNT & AUTO [id number] 06:17:00 Test Item Value Reference Range Comments WHITE BLOOD CELL COUNT (BEAKER) (test xqov=619) 9.2 K/ L 3.5-10.5 RED BLOOD CELL COUNT (BEAKER) (test dwwm=670) 3.43 M/ L 4.63-6.08 HEMOGLOBIN (BEAKER) (test rzpq=874) 10.3 GM/DL 13.7-17.5 HEMATOCRIT (BEAKER) (test zvpv=154) 31.3 % 40.1-51.0 MEAN CORPUSCULAR VOLUME (BEAKER) (test utps=075) 91.3 fL 79.0-92.2 MEAN CORPUSCULAR HEMOGLOBIN (BEAKER) (test 30.0 pg 25.7-32.2 gwsl=395) MEAN CORPUSCULAR HEMOGLOBIN CONC (BEAKER) (test 32.9 GM/DL 32.3-36.5 lmgg=041) RED CELL DISTRIBUTION WIDTH (BEAKER) (test 12.9 % 11.6-14.4 lewi=270) PLATELET COUNT (BEAKER) (test nipk=583) 185 K/CU MM 150-450 MEAN PLATELET VOLUME (BEAKER) (test nrsb=328) 9.8 fL 9.4-12.4 NUCLEATED RED BLOOD CELLS (BEAKER) (test 0 /100 WBC 0-0 mmti=321) NEUTROPHILS RELATIVE PERCENT (BEAKER) (test 75 % sett=390) LYMPHOCYTES RELATIVE PERCENT (BEAKER) (test 14 % gzcf=230) MONOCYTES RELATIVE PERCENT (BEAKER) (test 7 % loaq=448) EOSINOPHILS RELATIVE PERCENT (BEAKER) (test 3 % wjaj=588) BASOPHILS RELATIVE PERCENT (BEAKER) (test 0 % high=206) NEUTROPHILS ABSOLUTE COUNT (BEAKER) (test 6.88 K/ L 1.78-5.38 tpli=461) LYMPHOCYTES ABSOLUTE COUNT (BEAKER) (test 1.31 K/ L 1.32-3.57 akqa=725) MONOCYTES ABSOLUTE COUNT (BEAKER) (test 0.67 K/ L 0.30-0.82 lncw=834) EOSINOPHILS ABSOLUTE COUNT (BEAKER) (test 0.28 K/ L 0.04-0.54 yelk=998) BASOPHILS ABSOLUTE COUNT (BEAKER) (test 0.03 K/ L 0.01-0.08 ekmf=718) IMMATURE GRANULOCYTES-RELATIVE PERCENT (BEAKER) 0 % 0-1 (test clct=5696) POCT-GLUCOSE [id number] 21:52:00 Test Item Value Reference Range Comments POC-GLUCOSE METER (BEAKER) 240 mg/dL 70-110 TESTED AT [address] (test ffaa=2328) [facility] [address] POCT-GLUCOSE [id number] 18:12:00 Test Item Value Reference Range Comments POC-GLUCOSE METER (BEAKER) 227 mg/dL 70-110 TESTED AT [address] (test cyfv=3729) [facility] [address] POCT-GLUCOSE [id number] 13:29:00 Test Item Value Reference Range Comments POC-GLUCOSE METER (BEAKER) 222 mg/dL 70-110 TESTED AT [address] (test gfym=0913) [facility] [address] POCT-GLUCOSE [id number] 09:54:00 Test Item Value Reference Range Comments POC-GLUCOSE METER (BEAKER) 192 mg/dL 70-110 TESTED AT [facility] [address] (test pjla=5565) [facility] [address] [id number] 07:43:00 Test Item Value Reference Range Comments MAGNESIUM (BEAKER) (test ouqa=791) 1.8 mg/dL 1.6-2.6 BASIC METABOLIC [id number] 07:43:00 Test Item Value Reference Range Comments SODIUM (BEAKER) (test 137 meq/L 136-145 diqp=015) POTASSIUM (BEAKER) (test 3.9 meq/L 3.5-5.1 eckt=212) CHLORIDE (BEAKER) (test 102 meq/L 98-107 nzvg=741) CO2 (BEAKER) (test 28 meq/L 22-29 mqpl=220) BLOOD UREA NITROGEN 12 mg/dL 7-21 (BEAKER) (test plsk=782) CREATININE (BEAKER) (test 0.61 mg/dL 0.57-1.25 krhk=224) GLUCOSE RANDOM (BEAKER) 206 mg/dL 70-105 (test gisj=767) CALCIUM (BEAKER) (test 8.5 mg/dL 8.4-10.2 ccxa=279) EGFR (BEAKER) (test 133 mL/min/1.73 sq m ESTIMATED GFR IS NOT yahf=3732) ACCURATE CREATININE CLEARANCE IN PREDICTING GLOMERULAR FILTRATION RATE. ESTIMATED GFR IS NOT APPLICABLE FOR DIALYSIS PATIENTS. CBC W/PLT COUNT & AUTO [id number] 07:11:00 Test Item Value Reference Range Comments WHITE BLOOD CELL COUNT (BEAKER) (test sefo=867) 11.0 K/ L 3.5-10.5 RED BLOOD CELL COUNT (BEAKER) (test bhws=062) 3.63 M/ L 4.63-6.08 HEMOGLOBIN (BEAKER) (test lxdo=164) 10.8 GM/DL 13.7-17.5 HEMATOCRIT (BEAKER) (test ubsl=199) 33.0 % 40.1-51.0 MEAN CORPUSCULAR VOLUME (BEAKER) (test iofx=067) 90.9 fL 79.0-92.2 MEAN CORPUSCULAR HEMOGLOBIN (BEAKER) (test 29.8 pg 25.7-32.2 ygjq=095) MEAN CORPUSCULAR HEMOGLOBIN CONC (BEAKER) (test 32.7 GM/DL 32.3-36.5 umzo=114) RED CELL DISTRIBUTION WIDTH (BEAKER) (test 13.1 % 11.6-14.4 ivlp=390) PLATELET COUNT (BEAKER) (test sfds=471) 157 K/CU MM 150-450 MEAN PLATELET VOLUME (BEAKER) (test anme=651) 9.7 fL 9.4-12.4 NUCLEATED RED BLOOD CELLS (BEAKER) (test 0 /100 WBC 0-0 vxth=865) NEUTROPHILS RELATIVE PERCENT (BEAKER) (test 82 % tbbe=106) LYMPHOCYTES RELATIVE PERCENT (BEAKER) (test 10 % bfda=654) MONOCYTES RELATIVE PERCENT (BEAKER) (test 6 % qqyx=498) EOSINOPHILS RELATIVE PERCENT (BEAKER) (test 1 % ncfb=668) BASOPHILS RELATIVE PERCENT (BEAKER) (test 0 % lxhh=815) NEUTROPHILS ABSOLUTE COUNT (BEAKER) (test 8.94 K/ L 1.78-5.38 rusv=060) LYMPHOCYTES ABSOLUTE COUNT (BEAKER) (test 1.14 K/ L 1.32-3.57 mxaw=572) MONOCYTES ABSOLUTE COUNT (BEAKER) (test 0.68 K/ L 0.30-0.82 blpo=155) EOSINOPHILS ABSOLUTE COUNT (BEAKER) (test 0.12 K/ L 0.04-0.54 pvza=879) BASOPHILS ABSOLUTE COUNT (BEAKER) (test 0.03 K/ L 0.01-0.08 cfkv=052) IMMATURE GRANULOCYTES-RELATIVE PERCENT (BEAKER) 1 % 0-1 (test tqpj=0214) RAD, CHEST, 1 VIEW, NON [id number] 04:26:00Reason for exam:->post opShould this be performed [...] MDReport Verified Date/Time: 04/07/2019 04:26:24 Reading Location: [address] Reading Room POCT-GLUCOSE [id number] 23:13:00 Test Item Value Reference Range Comments POC-GLUCOSE METER (BEAKER) 219 mg/dL 70-110 TESTED AT [address] (test vnkj=9466) [facility] [address] [id number] 16:51:00 Test Item Value Reference Range Comments MAGNESIUM (BEAKER) (test 1.9 mg/dL 1.6-2.6 Specimen slightly hemolyzed xquk=488) Check Serum Magnesium level 2 hours after IV magnesium replacement.PRN - repeat potassium levels every 1 hour until glucose level is less than 450 mg/ [id number] 16:51:00 Test Item Value Reference Range Comments POTASSIUM (BEAKER) (test 3.6 meq/L 3.5-5.1 Specimen slightly hemolyzed pxke=065) Check Serum Magnesium level 2 hours after IV magnesium replacement.PRN - repeat potassium levels every 1 hour until glucose level is less than 450 mg/dLLACTIC ACID, [id number] 15:41:00 Test Item Value Reference Range Comments LACTATE BLOOD ARTERIAL (2) 1.7 mmol/L 0.5-2.2 Specimen slightly hemolyzed (BEAKER) (test nzmj=9609) POCT-GLUCOSE [id number] 15:30:00 Test Item Value Reference Range Comments POC-GLUCOSE METER (BEAKER) 200 mg/dL 70-110 TESTED AT [address] (test mgtb=4303) [facility] [address] POCT-GLUCOSE [id number] 07:58:00 Test Item Value Reference Range Comments POC-GLUCOSE METER (BEAKER) 179 mg/dL 70-110 TESTED AT [address] (test loju=3420) [facility] [address] POCT-GLUCOSE [id number] 07:32:00 Test Item Value Reference Range Comments POC-GLUCOSE METER (BEAKER) 196 mg/dL 70-110 TESTED AT [address] (test vtws=7533) [facility] [address] RAD, CHEST, 1 VIEW, NON [id number] 04:52:00Reason for exam:->post opShould this be performed [...] Signed: Ozzie Avila Verified Date/Time: 04/06/2019 04:52:11 [id number] 04:06:00 Test Item Value Reference Range Comments PHOSPHORUS (BEAKER) (test mhom=774) 3.4 mg/dL 2.3-4.7 [id number] 04:06:00 Test Item Value Reference Range Comments MAGNESIUM (BEAKER) (test xhgl=163) 1.6 mg/dL 1.6-2.6 BASIC METABOLIC [id number] 04:06:00 Test Item Value Reference Range Comments SODIUM (BEAKER) (test 144 meq/L 136-145 jiwz=255) POTASSIUM (BEAKER) (test 3.4 meq/L 3.5-5.1 xqdr=105) CHLORIDE (BEAKER) (test 108 meq/L 98-107 dyvd=990) CO2 (BEAKER) (test 26 meq/L 22-29 esxy=622) BLOOD UREA NITROGEN 10 mg/dL 7-21 (BEAKER) (test zpff=175) CREATININE (BEAKER) (test 0.63 mg/dL 0.57-1.25 eysi=904) GLUCOSE RANDOM (BEAKER) 189 mg/dL 70-105 (test qkug=138) CALCIUM (BEAKER) (test 8.9 mg/dL 8.4-10.2 jhpe=663) EGFR (BEAKER) (test 128 mL/min/1.73 sq m ESTIMATED GFR IS NOT jhmw=9726) ACCURATE CREATININE CLEARANCE IN PREDICTING GLOMERULAR FILTRATION RATE. ESTIMATED GFR IS NOT APPLICABLE FOR DIALYSIS PATIENTS. BLOOD GAS, [id number] 03:49:00 Test Item Value Reference Range Comments PH ARTERIAL (BEAKER) (test qdws=327) 7.46 7.35-7.45 PCO2 ARTERIAL (BEAKER) (test uyvg=010) 40 mmHg 35-45 PO2 ARTERIAL (BEAKER) (test pzkb=128) 64 mmHg 80-90 O2 SATURATION ARTERIAL (BEAKER) (test fazg=187) 93.2 % 96.0-97.0 HCO3 ARTERIAL (BEAKER) (test isub=634) 27 mmol/L 21-29 BASE EXCESS ARTERIAL (BEAKER) (test bmdz=279) 3.2 mmol/L -2.0-3.0 PATIENT TEMPERATURE (BEAKER) (test jisv=2516) 37.3 C FIO2 (BEAKER) (test kfyl=5759) 28.0 % CBC W/PLT COUNT & AUTO [id number] 03:29:00 Test Item Value Reference Range Comments WHITE BLOOD CELL COUNT (BEAKER) (test xdgu=344) 11.5 K/ L 3.5-10.5 RED BLOOD CELL COUNT (BEAKER) (test wfhi=227) 3.68 M/ L 4.63-6.08 HEMOGLOBIN (BEAKER) (test drkp=865) 11.1 GM/DL 13.7-17.5 HEMATOCRIT (BEAKER) (test pwmy=765) 32.7 % 40.1-51.0 MEAN CORPUSCULAR VOLUME (BEAKER) (test zdib=285) 88.9 fL 79.0-92.2 MEAN CORPUSCULAR HEMOGLOBIN (BEAKER) (test 30.2 pg 25.7-32.2 iizt=179) MEAN CORPUSCULAR HEMOGLOBIN CONC (BEAKER) (test 33.9 GM/DL 32.3-36.5 szth=564) RED CELL DISTRIBUTION WIDTH (BEAKER) (test 13.9 % 11.6-14.4 foiz=682) PLATELET COUNT (BEAKER) (test vfzx=913) 146 K/CU MM 150-450 MEAN PLATELET VOLUME (BEAKER) (test tlzm=977) 9.6 fL 9.4-12.4 NUCLEATED RED BLOOD CELLS (BEAKER) (test 0 /100 WBC 0-0 ckzu=851) NEUTROPHILS RELATIVE PERCENT (BEAKER) (test 81 % tdfs=714) LYMPHOCYTES RELATIVE PERCENT (BEAKER) (test 11 % itax=320) MONOCYTES RELATIVE PERCENT (BEAKER) (test 7 % jktc=105) EOSINOPHILS RELATIVE PERCENT (BEAKER) (test 0 % tkjt=677) BASOPHILS RELATIVE PERCENT (BEAKER) (test 0 % opuh=251) NEUTROPHILS ABSOLUTE COUNT (BEAKER) (test 9.31 K/ L 1.78-5.38 izjl=867) LYMPHOCYTES ABSOLUTE COUNT (BEAKER) (test 1.30 K/ L 1.32-3.57 kwbc=541) MONOCYTES ABSOLUTE COUNT (BEAKER) (test 0.80 K/ L 0.30-0.82 yrhg=294) EOSINOPHILS ABSOLUTE COUNT (BEAKER) (test 0.01 K/ L 0.04-0.54 djgv=876) BASOPHILS ABSOLUTE COUNT (BEAKER) (test 0.03 K/ L 0.01-0.08 qpkp=178) IMMATURE GRANULOCYTES-RELATIVE PERCENT (BEAKER) 0 % 0-1 (test tbrf=0408) POCT-GLUCOSE [id number] 17:09:00 Test Item Value Reference Range Comments POC-GLUCOSE METER (BEAKER) 189 mg/dL 70-110 TESTED AT [address] (test biqg=2971) [place] [address] PLATELET AGGREGATION: FUNCTION [id number] 14:45:00 Test Item Value Reference Range Comments WEAK ADP RESULT(BEAKER) (test 60 % 60-91 ovbn=3988) PLATELET FUNCTION SCREEN 60-100% indicates normal INTERP (BEAKER) (test platelet function tfka=6372) [id number] (BEAKER) Attila Vasquez M.D. (electonic (test orlv=2593) signature) PLATELET COUNT AGG (BEAKER) 259 K/CU MM 150-450 (test ujiz=9836) Platelet Function Screen results may be falsely low with platelet counts<100, 000/cu mm.POCT-GLUCOSE [id number] 12:26:00 Test Item Value Reference Range Comments POC-GLUCOSE METER (BEAKER) 241 mg/dL 70-110 TESTED AT [address] (test layt=2523) [place] [address] POCT-GLUCOSE [id number] 12:26:00 Test Item Value Reference Range Comments POC-GLUCOSE METER (BEAKER) 122 mg/dL 70-110 TESTED AT [address] (test qeah=5647) [facility] [address] POCT-GLUCOSE [id number] 12:26:00 Test Item Value Reference Range Comments POC-GLUCOSE METER (BEAKER) 125 mg/dL 70-110 TESTED AT [address] (test kexi=2354) [place] [id number] POCT-GLUCOSE [id number] 12:25:00 Test Item Value Reference Range Comments POC-GLUCOSE METER (BEAKER) 128 mg/dL 70-110 TESTED AT [address] (test hrlw=6490) [place] [id number] POCT-GLUCOSE [id number] 12:25:00 Test Item Value Reference Range Comments POC-GLUCOSE METER (BEAKER) 143 mg/dL 70-110 TESTED AT [address] (test jtza=2384) [facility] [address] BLOOD GAS, [id number] 08:23:00 Test Item Value Reference Range Comments PH ARTERIAL (BEAKER) (test rrpd=341) 7.45 7.35-7.45 PCO2 ARTERIAL (BEAKER) (test eidp=451) 40 mmHg 35-45 PO2 ARTERIAL (BEAKER) (test jyqw=912) 82 mmHg 80-90 O2 SATURATION ARTERIAL (BEAKER) (test vadx=228) 96.1 % 96.0-97.0 HCO3 ARTERIAL (BEAKER) (test yuhc=134) 27 mmol/L 21-29 BASE EXCESS ARTERIAL (BEAKER) (test kpig=185) 2.8 mmol/L -2.0-3.0 PATIENT TEMPERATURE (BEAKER) (test jklz=8923) 37.8 C FIO2 (BEAKER) (test ydif=4980) 40.0 % POCT-GLUCOSE [id number] 06:30:00 Test Item Value Reference Range Comments POC-GLUCOSE METER (BEAKER) 159 mg/dL 70-110 TESTED AT [address] (test bgmz=4647) [facility] [address] POCT-GLUCOSE [id number] 06:22:00 Test Item Value Reference Range Comments POC-GLUCOSE METER (BEAKER) 173 mg/dL 70-110 TESTED AT [place] [id number] [facility] (test aygn=0253) [facility] [address] POCT-GLUCOSE [id number] 06:22:00 Test Item Value Reference Range Comments POC-GLUCOSE METER (BEAKER) 190 mg/dL 70-110 TESTED AT [address] (test csnt=0543) [facility] [address] POCT-GLUCOSE [id number] 06:22:00 Test Item Value Reference Range Comments POC-GLUCOSE METER (BEAKER) 189 mg/dL 70-110 TESTED AT [address] (test nuyr=4837) [facility] [address] RAD, CHEST, 1 VIEW, NON [id number] 04:17:00while patient is intubated or has chest [...] Signed: Ozzie Avila Verified Date/Time: 04/05/2019 04:17:27 [id number] 04:04:00 Test Item Value Reference Range Comments PHOSPHORUS (BEAKER) (test bavn=501) 2.1 mg/dL 2.3-4.7 [id number] 04:04:00 Test Item Value Reference Range Comments MAGNESIUM (BEAKER) (test iczw=103) 1.8 mg/dL 1.6-2.6 BASIC METABOLIC [id number] 04:04:00 Test Item Value Reference Range Comments SODIUM (BEAKER) (test 145 meq/L 136-145 klhw=369) POTASSIUM (BEAKER) (test 4.0 meq/L 3.5-5.1 wqoi=250) CHLORIDE (BEAKER) (test 113 meq/L 98-107 cqjp=652) CO2 (BEAKER) (test 25 meq/L 22-29 khpl=898) BLOOD UREA NITROGEN 14 mg/dL 7-21 (BEAKER) (test npte=709) CREATININE (BEAKER) (test 0.73 mg/dL 0.57-1.25 yzwg=233) GLUCOSE RANDOM (BEAKER) 171 mg/dL 70-105 (test fkcc=611) CALCIUM (BEAKER) (test 9.5 mg/dL 8.4-10.2 nyvm=246) EGFR (BEAKER) (test 108 mL/min/1.73 sq m ESTIMATED GFR IS NOT jmmk=9423) ACCURATE CREATININE CLEARANCE IN PREDICTING GLOMERULAR FILTRATION RATE. ESTIMATED GFR IS NOT APPLICABLE FOR DIALYSIS PATIENTS. LACTIC ACID, [id number] 04:03:00 Test Item Value Reference Range Comments LACTATE BLOOD ARTERIAL (2) (BEAKER) (test 1.0 mmol/L 0.5-2.2 uzqo=1619) CALCIUM, [id number] 03:35:00 Test Item Value Reference Range Comments CALCIUM IONIZED (BEAKER) (test vuvd=242) 1.25 mmol/L 1.12-1.27 PH, BLOOD (BEAKER) (test afqo=9402) 7.49 BLOOD GAS, [id number] 03:33:00 Test Item Value Reference Range Comments PH ARTERIAL (BEAKER) (test wmjz=922) 7.47 7.35-7.45 PCO2 ARTERIAL (BEAKER) (test sfjh=465) 35 mmHg 35-45 PO2 ARTERIAL (BEAKER) (test rvdo=015) 91 mmHg 80-90 O2 SATURATION ARTERIAL (BEAKER) (test utzf=982) 97.1 % 96.0-97.0 HCO3 ARTERIAL (BEAKER) (test imqf=490) 25 mmol/L 21-29 BASE EXCESS ARTERIAL (BEAKER) (test nrvv=208) 1.8 mmol/L -2.0-3.0 PATIENT TEMPERATURE (BEAKER) (test xloh=1305) 38.1 C FIO2 (BEAKER) (test xxmg=7071) 40.0 % CBC W/PLT COUNT & AUTO [id number] 03:31:00 Test Item Value Reference Range Comments WHITE BLOOD CELL COUNT (BEAKER) (test bmsf=622) 10.6 K/ L 3.5-10.5 RED BLOOD CELL COUNT (BEAKER) (test wifq=874) 4.00 M/ L 4.63-6.08 HEMOGLOBIN (BEAKER) (test qooq=907) 12.1 GM/DL 13.7-17.5 HEMATOCRIT (BEAKER) (test qile=999) 35.2 % 40.1-51.0 MEAN CORPUSCULAR VOLUME (BEAKER) (test cezm=034) 88.0 fL 79.0-92.2 MEAN CORPUSCULAR HEMOGLOBIN (BEAKER) (test 30.3 pg 25.7-32.2 xopp=478) MEAN CORPUSCULAR HEMOGLOBIN CONC (BEAKER) (test 34.4 GM/DL 32.3-36.5 ltnf=047) RED CELL DISTRIBUTION WIDTH (BEAKER) (test 13.8 % 11.6-14.4 mahg=581) PLATELET COUNT (BEAKER) (test cerd=324) 184 K/CU MM 150-450 MEAN PLATELET VOLUME (BEAKER) (test akyy=178) 9.4 fL 9.4-12.4 NUCLEATED RED BLOOD CELLS (BEAKER) (test 0 /100 WBC 0-0 vfbp=893) NEUTROPHILS RELATIVE PERCENT (BEAKER) (test 83 % fifw=146) LYMPHOCYTES RELATIVE PERCENT (BEAKER) (test 9 % sfvd=132) MONOCYTES RELATIVE PERCENT (BEAKER) (test 7 % mjgs=525) EOSINOPHILS RELATIVE PERCENT (BEAKER) (test 0 % lbcb=387) BASOPHILS RELATIVE PERCENT (BEAKER) (test 0 % xtvr=752) NEUTROPHILS ABSOLUTE COUNT (BEAKER) (test 8.85 K/ L 1.78-5.38 jspf=399) LYMPHOCYTES ABSOLUTE COUNT (BEAKER) (test 0.92 K/ L 1.32-3.57 ijhk=877) MONOCYTES ABSOLUTE COUNT (BEAKER) (test 0.78 K/ L 0.30-0.82 ggnk=176) EOSINOPHILS ABSOLUTE COUNT (BEAKER) (test 0.01 K/ L 0.04-0.54 bzwv=997) BASOPHILS ABSOLUTE COUNT (BEAKER) (test 0.03 K/ L 0.01-0.08 bfux=233) IMMATURE GRANULOCYTES-RELATIVE PERCENT (BEAKER) 1 % 0-1 (test welj=3116) [id number] 01:22:00 Test Item Value Reference Range Comments MAGNESIUM (BEAKER) (test kqwf=980) 2.2 mg/dL 1.6-2.6 BASIC METABOLIC [id number] 01:22:00 Test Item Value Reference Range Comments SODIUM (BEAKER) (test 146 meq/L 136-145 mxvn=568) POTASSIUM (BEAKER) (test 4.3 meq/L 3.5-5.1 vzbx=864) CHLORIDE (BEAKER) (test 113 meq/L 98-107 ageo=895) CO2 (BEAKER) (test 24 meq/L 22-29 xycj=736) BLOOD UREA NITROGEN 15 mg/dL 7-21 (BEAKER) (test pwui=622) CREATININE (BEAKER) (test 0.73 mg/dL 0.57-1.25 hsoi=350) GLUCOSE RANDOM (BEAKER) 188 mg/dL 70-105 (test uvvw=431) CALCIUM (BEAKER) (test 9.9 mg/dL 8.4-10.2 lzcu=914) EGFR (BEAKER) (test 108 mL/min/1.73 sq m ESTIMATED GFR IS NOT pcxq=5763) ACCURATE CREATININE CLEARANCE IN PREDICTING GLOMERULAR FILTRATION RATE. ESTIMATED GFR IS NOT APPLICABLE FOR DIALYSIS PATIENTS. LACTIC ACID, [id number] 01:20:00 Test Item Value Reference Range Comments LACTATE BLOOD ARTERIAL (2) 1.1 mmol/L 0.5-2.2 Specimen slightly hemolyzed (BEAKER) (test rjnf=3340) CBC W/PLT COUNT & AUTO [id number] 01:06:00 Test Item Value Reference Range Comments WHITE BLOOD CELL COUNT (BEAKER) (test rhjd=668) 11.8 K/ L 3.5-10.5 RED BLOOD CELL COUNT (BEAKER) (test osxe=920) 3.98 M/ L 4.63-6.08 HEMOGLOBIN (BEAKER) (test vmgh=113) 12.1 GM/DL 13.7-17.5 HEMATOCRIT (BEAKER) (test ckrf=262) 34.8 % 40.1-51.0 MEAN CORPUSCULAR VOLUME (BEAKER) (test jhij=076) 87.4 fL 79.0-92.2 MEAN CORPUSCULAR HEMOGLOBIN (BEAKER) (test 30.4 pg 25.7-32.2 nhyu=113) MEAN CORPUSCULAR HEMOGLOBIN CONC (BEAKER) (test 34.8 GM/DL 32.3-36.5 sgwx=088) RED CELL DISTRIBUTION WIDTH (BEAKER) (test 13.6 % 11.6-14.4 fdhh=057) PLATELET COUNT (BEAKER) (test twja=231) 172 K/CU MM 150-450 MEAN PLATELET VOLUME (BEAKER) (test kdrh=311) 9.4 fL 9.4-12.4 NUCLEATED RED BLOOD CELLS (BEAKER) (test 0 /100 WBC 0-0 gfad=972) NEUTROPHILS RELATIVE PERCENT (BEAKER) (test 85 % ddgd=751) LYMPHOCYTES RELATIVE PERCENT (BEAKER) (test 7 % dbzy=247) MONOCYTES RELATIVE PERCENT (BEAKER) (test 8 % jtwp=189) EOSINOPHILS RELATIVE PERCENT (BEAKER) (test 0 % mcwi=433) BASOPHILS RELATIVE PERCENT (BEAKER) (test 0 % fqii=871) NEUTROPHILS ABSOLUTE COUNT (BEAKER) (test 9.96 K/ L 1.78-5.38 qgla=938) LYMPHOCYTES ABSOLUTE COUNT (BEAKER) (test 0.81 K/ L 1.32-3.57 iknp=359) MONOCYTES ABSOLUTE COUNT (BEAKER) (test 0.89 K/ L 0.30-0.82 pofa=166) EOSINOPHILS ABSOLUTE COUNT (BEAKER) (test 0.01 K/ L 0.04-0.54 egfh=872) BASOPHILS ABSOLUTE COUNT (BEAKER) (test 0.03 K/ L 0.01-0.08 mujm=523) IMMATURE GRANULOCYTES-RELATIVE PERCENT (BEAKER) 1 % 0-1 (test oght=0750) BLOOD GAS, [id number] 00:53:00 Test Item Value Reference Range Comments PH ARTERIAL (BEAKER) (test dnxg=091) 7.45 7.35-7.45 PCO2 ARTERIAL (BEAKER) (test wzze=794) 38 mmHg 35-45 PO2 ARTERIAL (BEAKER) (test wcgh=120) 108 mmHg 80-90 O2 SATURATION ARTERIAL (BEAKER) (test tizh=791) 98.0 % 96.0-97.0 HCO3 ARTERIAL (BEAKER) (test taav=322) 26 mmol/L 21-29 BASE EXCESS ARTERIAL (BEAKER) (test uyzj=737) 2.2 mmol/L -2.0-3.0 PATIENT TEMPERATURE (BEAKER) (test gvvo=7272) 38.1 C FIO2 (BEAKER) (test vjgn=2694) 60.0 % CALCIUM, [id number] 00:53:00 Test Item Value Reference Range Comments CALCIUM IONIZED (BEAKER) (test pfsi=603) 1.29 mmol/L 1.12-1.27 PH, BLOOD (BEAKER) (test vnwb=9971) 7.47 POCT-GLUCOSE [id number] 23:39:00 Test Item Value Reference Range Comments POC-GLUCOSE METER (BEAKER) 192 mg/dL 70-110 TESTED AT [address] (test dwax=2594) [facility] [address] POCT-GLUCOSE [id number] 23:39:00 Test Item Value Reference Range Comments POC-GLUCOSE METER (BEAKER) 197 mg/dL 70-110 TESTED AT [address] (test awnt=5399) [facility] [address] POCT-GLUCOSE [id number] 23:39:00 Test Item Value Reference Range Comments POC-GLUCOSE METER (BEAKER) 185 mg/dL 70-110 TESTED AT [address] (test fibe=2664) [facility] [address] BLOOD GAS, [id number] 20:52:00 Test Item Value Reference Range Comments PH ARTERIAL (BEAKER) (test eqbt=485) 7.46 7.35-7.45 PCO2 ARTERIAL (BEAKER) (test mhfg=032) 38 mmHg 35-45 PO2 ARTERIAL (BEAKER) (test utaq=674) 233 mmHg 80-90 O2 SATURATION ARTERIAL (BEAKER) (test rgqc=562) 99.6 % 96.0-97.0 HCO3 ARTERIAL (BEAKER) (test asfw=863) 26 mmol/L 21-29 BASE EXCESS ARTERIAL (BEAKER) (test dfmt=498) 2.1 mmol/L -2.0-3.0 PATIENT TEMPERATURE (BEAKER) (test qijw=2126) 37.1 C FIO2 (BEAKER) (test nekj=6676) 80.0 % THROMBOELASTOGRAPH (TEG)2019-04-04 20:05:00 Test Item Value Reference Range Comments TEG ACTIVATED CLOTTING TIME (BEAKER) (test 6.6 minutes 4.0-7.0 rvec=5420) TEG FIBRINOGEN ACTIVITY (BEAKER) (test 69.0 degrees 61.0-73.0 ychl=1492) TEG PLT. AGGREGATION (BEAKER) (test maqp=5828) 65.0 MM 55.0-65.0 TEG FIBRINOLYSIS (BEAKER) (test rhln=8754) 0.0 % 0.0-5.0 TGH ACTIVATED CLOTTING TIME (BEAKER) (test 7.0 minutes 4.0-7.0 ukux=4959) TGH FIBRINOGEN ACTIVITY (BEAKER) (test 65.7 degrees 61.0-73.0 vpmd=1476) TGH PLT. AGGREGATION (BEAKER) (test crqr=8950) 63.2 MM 55.0-65.0 TGH FIBRINOLYSIS (BEAKER) (test scvv=1165) 0.0 % 0.0-5.0 RAD, CHEST, 1 VIEW, NON [id number] 19:07:00Reason for exam:->Status post CV Surgery post [...] MDReport Verified Date/Time: 04/04/2019 19:07:57 Reading Location: [facility] Radiology Reading Room BASI METABOLIC [id number] 18: 47:00 Test Item Value Reference Range Comments SODIUM (BEAKER) (test 149 meq/L 136-145 hajd=783) POTASSIUM (BEAKER) (test 3.8 meq/L 3.5-5.1 Specimen slightly tvyn=143) hemolyzed CHLORIDE (BEAKER) (test 112 meq/L 98-107 xasv=558) CO2 (BEAKER) (test 25 meq/L 22-29 zwrm=196) BLOOD UREA NITROGEN 16 mg/dL 7-21 (BEAKER) (test qsyp=979) CREATININE (BEAKER) (test 0.67 mg/dL 0.57-1.25 Specimen slightly axec=486) hemolyzed GLUCOSE RANDOM (BEAKER) 236 mg/dL 70-105 (test qnbv=558) CALCIUM (BEAKER) (test 11.1 mg/dL 8.4-10.2 elqj=896) EGFR (BEAKER) (test 119 mL/min/1.73 sq m ESTIMATED GFR IS NOT jdwc=8164) ACCURATE CREATININE CLEARANCE IN PREDICTING GLOMERULAR FILTRATION RATE. ESTIMATED GFR IS NOT APPLICABLE FOR DIALYSIS PATIENTS. [id number] 18:46:00 Test Item Value Reference Range Comments MAGNESIUM (BEAKER) (test 1.9 mg/dL 1.6-2.6 Specimen slightly hemolyzed wizb=860) [id number] 18:46:00 Test Item Value Reference Range Comments PHOSPHORUS (BEAKER) (test 4.2 mg/dL 2.3-4.7 Specimen slightly hemolyzed cohk=651) LACTIC ACID, [id number] 18:43:00 Test Item Value Reference Range Comments LACTATE BLOOD ARTERIAL (2) 2.0 mmol/L 0.5-2.2 Specimen slightly hemolyzed (BEAKER) (test rjfr=5827) [id number] 18:36:00 Test Item Value Reference Range Comments FIBRINOGEN LEVEL (BEAKER) (test drhr=801) 329 mg/dl 225-434 [id number] 18:36:00 Test Item Value Reference Range Comments PARTIAL THROMBOPLASTIN TIME (BEAKER) (test 35.0 seconds 22.5-36.0 xmam=334) PROTHROMBIN [id number] 18:35:00 Test Item Value Reference Range Comments PROTIME (BEAKER) (test akqj=861) 16.7 seconds 11.9-14.2 INR (BEAKER) (test hdtc=754) 1.4 <=5.9 Effective 03/27/2019: PT Reference Range ChangeNew: 11.9-14.2 Previous: 11.7- 14.7RECOMMENDED COUMADIN/WARFARIN INR THERAPY RANGESSTANDARD DOSE: 2.0-3.0 Includes: PROPHYLAXIS for venous thrombosis, systemic embolization; TREATMENT for venous thrombosis and/or pulmonary embolus.HIGH RISK: Target INR is2.5-3.5 for patients wiht mechanical heart valves.CBC W/PLT COUNT & AUTO [id number] 18:27:00 Test Item Value Reference Range Comments WHITE BLOOD CELL COUNT (BEAKER) (test rfro=803) 10.4 K/ L 3.5-10.5 RED BLOOD CELL COUNT (BEAKER) (test imiu=392) 4.17 M/ L 4.63-6.08 HEMOGLOBIN (BEAKER) (test cxjx=125) 12.7 GM/DL 13.7-17.5 HEMATOCRIT (BEAKER) (test uqcf=035) 37.4 % 40.1-51.0 MEAN CORPUSCULAR VOLUME (BEAKER) (test dbag=822) 89.7 fL 79.0-92.2 MEAN CORPUSCULAR HEMOGLOBIN (BEAKER) (test 30.5 pg 25.7-32.2 tfis=658) MEAN CORPUSCULAR HEMOGLOBIN CONC (BEAKER) (test 34.0 GM/DL 32.3-36.5 poqa=782) RED CELL DISTRIBUTION WIDTH (BEAKER) (test 13.2 % 11.6-14.4 lgtr=171) PLATELET COUNT (BEAKER) (test gpsy=728) 139 K/CU MM 150-450 MEAN PLATELET VOLUME (BEAKER) (test zzjg=386) 9.0 fL 9.4-12.4 NUCLEATED RED BLOOD CELLS (BEAKER) (test 0 /100 WBC 0-0 hgck=374) NEUTROPHILS RELATIVE PERCENT (BEAKER) (test 81 % zrvt=152) LYMPHOCYTES RELATIVE PERCENT (BEAKER) (test 13 % swqa=671) MONOCYTES RELATIVE PERCENT (BEAKER) (test 5 % hekn=278) EOSINOPHILS RELATIVE PERCENT (BEAKER) (test 0 % fhwt=239) BASOPHILS RELATIVE PERCENT (BEAKER) (test 0 % quns=347) NEUTROPHILS ABSOLUTE COUNT (BEAKER) (test 8.37 K/ L 1.78-5.38 tcza=864) LYMPHOCYTES ABSOLUTE COUNT (BEAKER) (test 1.39 K/ L 1.32-3.57 attx=900) MONOCYTES ABSOLUTE COUNT (BEAKER) (test 0.49 K/ L 0.30-0.82 fyec=201) EOSINOPHILS ABSOLUTE COUNT (BEAKER) (test 0.04 K/ L 0.04-0.54 ufbo=157) BASOPHILS ABSOLUTE COUNT (BEAKER) (test 0.02 K/ L 0.01-0.08 hllw=529) IMMATURE GRANULOCYTES-RELATIVE PERCENT (BEAKER) 1 % 0-1 (test csts=5884) BLOOD GAS, [id number] 18:24:00 Test Item Value Reference Range Comments PH ARTERIAL (BEAKER) (test dnlq=071) 7.37 7.35-7.45 PCO2 ARTERIAL (BEAKER) (test fhgp=035) 44 mmHg 35-45 PO2 ARTERIAL (BEAKER) (test tjky=366) 81 mmHg 80-90 O2 SATURATION ARTERIAL (BEAKER) (test rpfp=548) 96.1 % 96.0-97.0 HCO3 ARTERIAL (BEAKER) (test ifhr=819) 25 mmol/L 21-29 BASE EXCESS ARTERIAL (BEAKER) (test dzfn=033) -0.8 mmol/L -2.0-3.0 PATIENT TEMPERATURE (BEAKER) (test oanz=4299) 36.2 C FIO2 (BEAKER) (test zslq=7092) 60.0 % SODIUM NA-STAT [id number] 18:24:00 Test Item Value Reference Range Comments SODIUM (BEAKER) (test atbg=341) 147 meq/L 135-148 POTASSIUM-STAT [id number] 18:24:00 Test Item Value Reference Range Comments POTASSIUM (BEAKER) (test prwg=488) 3.6 meq/L 3.6-5.5 GLUCOSE-STAT [id number] 18:24:00 Test Item Value Reference Range Comments GLUCOSE RANDOM (BEAKER) (test rztq=204) 230 mg/dL 70-110 HGB/HCT (H&H) - STAT [id number] 18:24:00 Test Item Value Reference Range Comments HEMOGLOBIN (BEAKER) (test jddo=671) 13.0 g/dL 13.0-16.8 HEMATOCRIT (BEAKER) (test itsr=109) 38.0 % 40.0-50.0 OXYGEN SATURATION, [id number] 18:24:00 Test Item Value Reference Range Comments O2 SATURATION (MEASURED) (BEAKER) (test idej=3696) 74.9 % CALCIUM, [id number] 18:23:00 Test Item Value Reference Range Comments CALCIUM IONIZED (BEAKER) (test zurj=707) 1.44 mmol/L 1.12-1.27 PH, BLOOD (BEAKER) (test fcqd=8818) 7.36 THROMBOELASTOGRAPH (TEG)2019-04-04 17:53:00 Test Item Value Reference Range Comments TEG ACTIVATED CLOTTING TIME (BEAKER) (test 9.2 minutes 4.0-7.0 noze=1897) TEG FIBRINOGEN ACTIVITY (BEAKER) (test 57.5 degrees 61.0-73.0 ztfe=8866) TEG PLT. AGGREGATION (BEAKER) (test eebz=8244) 37.3 MM 55.0-65.0 TGH ACTIVATED CLOTTING TIME (BEAKER) (test 9.3 minutes 4.0-7.0 txsi=7982) TGH FIBRINOGEN ACTIVITY (BEAKER) (test 52.7 degrees 61.0-73.0 scpa=6874) TGH PLT. AGGREGATION (BEAKER) (test lhib=3042) 35.8 MM 55.0-65.0 CALCIUM, [id number] 17:28:00 Test Item Value Reference Range Comments CALCIUM IONIZED (BEAKER) (test owst=008) 1.23 mmol/L 1.12-1.27 PH, BLOOD (BEAKER) (test pcku=5440) 7.30 BLOOD GAS, [id number] 17:28:00 Test Item Value Reference Range Comments PH ARTERIAL (BEAKER) (test pclr=517) 7.31 7.35-7.45 PCO2 ARTERIAL (BEAKER) (test svgt=769) 47 mmHg 35-45 PO2 ARTERIAL (BEAKER) (test nnsk=462) 72 mmHg 80-90 O2 SATURATION ARTERIAL (BEAKER) (test xxwz=512) 93.8 % 96.0-97.0 HCO3 ARTERIAL (BEAKER) (test wvop=028) 23 mmol/L 21-29 BASE EXCESS ARTERIAL (BEAKER) (test mpgs=417) -3.5 mmol/L -2.0-3.0 PATIENT TEMPERATURE (BEAKER) (test utxp=4381) 36.0 C FIO2 (BEAKER) (test xruy=7627) 100.0 % GLUCOSE-STAT [id number] 17:28:00 Test Item Value Reference Range Comments GLUCOSE RANDOM (BEAKER) (test wvnv=697) 243 mg/dL 70-110 HGB/HCT (H&H) - STAT [id number] 17:28:00 Test Item Value Reference Range Comments HEMOGLOBIN (BEAKER) (test rpua=404) 12.6 g/dL 13.0-16.8 HEMATOCRIT (BEAKER) (test tegz=155) 37.0 % 40.0-50.0 SODIUM NA-STAT [id number] 17:27:00 Test Item Value Reference Range Comments SODIUM (BEAKER) (test mlmg=173) 143 meq/L 135-148 POTASSIUM-STAT [id number] 17:27:00 Test Item Value Reference Range Comments POTASSIUM (BEAKER) (test yoou=802) 3.5 meq/L 3.6-5.5 [id number] 17:12:00 Test Item Value Reference Range Comments FIBRINOGEN LEVEL (BEAKER) (test chec=454) 117 mg/dl 225-434 [id number] 17:05:00 Test Item Value Reference Range Comments ACTIVATED CLOTTING TIME 444 sec TESTED AT [address] (BEAKER) (test qott=521) [place] [address] [id number] 17:05:00 Test Item Value Reference Range Comments ACTIVATED CLOTTING TIME 406 sec TESTED AT [place] [address] [facility] (BEAKER) (test vcxz=818) [place] [address] [id number] 17:05:00 Test Item Value Reference Range Comments ACTIVATED CLOTTING TIME 411 sec TESTED AT [place] [address] [facility] (BEAKER) (test bmag=439) [place] [address] [id number] 17:05:00 Test Item Value Reference Range Comments ACTIVATED CLOTTING TIME 351 sec TESTED AT [place] [address] [facility] (BEAKER) (test vcbb=406) [place] [address] [id number] 17:05:00 Test Item Value Reference Range Comments ACTIVATED CLOTTING TIME 626 sec TESTED AT [place] [address] [facility] (BEAKER) (test mydt=117) [place] [address] [id number] 17:02:00 Test Item Value Reference Range Comments PARTIAL THROMBOPLASTIN TIME (BEAKER) (test 40.8 seconds 22.5-36.0 blhn=029) PROTHROMBIN [id number] 17:01:00 Test Item Value Reference Range Comments PROTIME (BEAKER) (test xsiv=933) 31.7 seconds 11.9-14.2 INR (BEAKER) (test zbpx=050) 3.3 <=5.9 Effective 03/27/2019: PT Reference Range ChangeNew: 11.9-14.2 Previous: 11.7- 14.7RECOMMENDED COUMADIN/WARFARIN INR THERAPY RANGESSTANDARD DOSE: 2.0-3.0 Includes: PROPHYLAXIS for venous thrombosis, systemic embolization; TREATMENT for venous thrombosis and/or pulmonary embolus.HIGH RISK: Target INR is2.5-3.5 for patients wiht mechanical heart valves.PLATELET [id number] 16:49:00 Test Item Value Reference Range Comments PLATELET COUNT (BEAKER) (test gnli=142) 52 K/CU MM 150-450 CALCIUM, [id number] 16:44:00 Test Item Value Reference Range Comments CALCIUM IONIZED (BEAKER) (test locl=645) 1.08 mmol/L 1.12-1.27 PH, BLOOD (BEAKER) (test tmja=2348) 7.33 BLOOD GAS, [id number] 16:44:00 Test Item Value Reference Range Comments PH ARTERIAL (BEAKER) (test mnqb=849) 7.34 7.35-7.45 PCO2 ARTERIAL (BEAKER) (test xzyl=154) 40 mmHg 35-45 PO2 ARTERIAL (BEAKER) (test zbss=186) 132 mmHg 80-90 O2 SATURATION ARTERIAL (BEAKER) (test nyso=263) 98.6 % 96.0-97.0 HCO3 ARTERIAL (BEAKER) (test nbmg=208) 21 mmol/L 21-29 BASE EXCESS ARTERIAL (BEAKER) (test iisa=806) -4.3 mmol/L -2.0-3.0 PATIENT TEMPERATURE (BEAKER) (test tqcy=0795) 36.0 C FIO2 (BEAKER) (test pkym=7176) 100.0 % GLUCOSE-STAT [id number] 16:44:00 Test Item Value Reference Range Comments GLUCOSE RANDOM (BEAKER) (test aeak=312) 277 mg/dL 70-110 HGB/HCT (H&H) - STAT [id number] 16:44:00 Test Item Value Reference Range Comments HEMOGLOBIN (BEAKER) (test jbuv=404) 11.3 g/dL 13.0-16.8 HEMATOCRIT (BEAKER) (test kqqs=698) 33.0 % 40.0-50.0 SODIUM NA-STAT [id number] 16:43:00 Test Item Value Reference Range Comments SODIUM (BEAKER) (test qvlg=360) 141 meq/L 135-148 POTASSIUM-STAT [id number] 16:43:00 Test Item Value Reference Range Comments POTASSIUM (BEAKER) (test xrxf=587) 3.6 meq/L 3.6-5.5 BLOOD GAS, [id number] 16:23:00 Test Item Value Reference Range Comments PH ARTERIAL (BEAKER) (test vjex=265) 7.35 7.35-7.45 PCO2 ARTERIAL (BEAKER) (test cxuj=796) 54 mmHg 35-45 PO2 ARTERIAL (BEAKER) (test dixp=277) 206 mmHg 80-90 O2 SATURATION ARTERIAL (BEAKER) (test cujm=700) 99.4 % 96.0-97.0 HCO3 ARTERIAL (BEAKER) (test yvtj=677) 30 mmol/L 21-29 BASE EXCESS ARTERIAL (BEAKER) (test zfwj=836) 2.9 mmol/L -2.0-3.0 PATIENT TEMPERATURE (BEAKER) (test cmzf=6009) 34.0 C FIO2 (BEAKER) (test iccs=8724) 100.0 % SODIUM NA-STAT [id number] 16:23:00 Test Item Value Reference Range Comments SODIUM (BEAKER) (test jqaf=336) 146 meq/L 135-148 GLUCOSE-STAT [id number] 16:23:00 Test Item Value Reference Range Comments GLUCOSE RANDOM (BEAKER) (test flkf=096) 281 mg/dL 70-110 HGB/HCT (H&H) - STAT [id number] 16:23:00 Test Item Value Reference Range Comments HEMOGLOBIN (BEAKER) (test vnau=920) 9.9 g/dL 13.0-16.8 HEMATOCRIT (BEAKER) (test hmmt=755) 29.0 % 40.0-50.0 POTASSIUM-STAT [id number] 16:22:00 Test Item Value Reference Range Comments POTASSIUM (BEAKER) (test aljl=907) 4.2 meq/L 3.6-5.5 CALCIUM, [id number] 16:22:00 Test Item Value Reference Range Comments CALCIUM IONIZED (BEAKER) (test pdil=600) 1.16 mmol/L 1.12-1.27 PH, BLOOD (BEAKER) (test wdyi=9594) 7.31 BLOOD GAS, [id number] 16:13:00 Test Item Value Reference Range Comments PH ARTERIAL (BEAKER) (test pmkf=350) 7.16 7.35-7.45 PCO2 ARTERIAL (BEAKER) (test xilp=249) 41 mmHg 35-45 PO2 ARTERIAL (BEAKER) (test puim=881) 114 mmHg 80-90 O2 SATURATION ARTERIAL (BEAKER) (test mukr=610) 97.2 % 96.0-97.0 HCO3 ARTERIAL (BEAKER) (test xdfp=204) 15 mmol/L 21-29 BASE EXCESS ARTERIAL (BEAKER) (test imeb=885) -13.3 mmol/L -2.0-3.0 PATIENT TEMPERATURE (BEAKER) (test omng=2030) 35.8 C FIO2 (BEAKER) (test bcxn=7364) 100.0 % CALCIUM, [id number] 16:13:00 Test Item Value Reference Range Comments CALCIUM IONIZED (BEAKER) (test elcm=430) 1.11 mmol/L 1.12-1.27 PH, BLOOD (BEAKER) (test eyop=6424) 7.14 GLUCOSE-STAT [id number] 16:13:00 Test Item Value Reference Range Comments GLUCOSE RANDOM (BEAKER) (test dfyr=956) 268 mg/dL 70-110 HGB/HCT (H&H) - STAT [id number] 16:13:00 Test Item Value Reference Range Comments HEMOGLOBIN (BEAKER) (test jhvp=205) 6.8 g/dL 13.0-16.8 HEMATOCRIT (BEAKER) (test ooxx=914) 20.0 % 40.0-50.0 SODIUM NA-STAT [id number] 16:12:00 Test Item Value Reference Range Comments SODIUM (BEAKER) (test yenm=444) 137 meq/L 135-148 POTASSIUM-STAT [id number] 16:12:00 Test Item Value Reference Range Comments POTASSIUM (BEAKER) (test ildz=642) 4.6 meq/L 3.6-5.5 BLOOD GAS, [id number] 15:44:00 Test Item Value Reference Range Comments PH ARTERIAL (BEAKER) (test tckh=784) 7.31 7.35-7.45 PCO2 ARTERIAL (BEAKER) (test pkvn=344) 43 mmHg 35-45 PO2 ARTERIAL (BEAKER) (test jysj=383) 416 mmHg 80-90 O2 SATURATION ARTERIAL (BEAKER) (test hras=625) 99.8 % 96.0-97.0 HCO3 ARTERIAL (BEAKER) (test szxk=359) 22 mmol/L 21-29 BASE EXCESS ARTERIAL (BEAKER) (test jfxb=307) -4.7 mmol/L -2.0-3.0 PATIENT TEMPERATURE (BEAKER) (test twsg=3091) 34.6 C FIO2 (BEAKER) (test aklb=3462) 90.0 % GLUCOSE-STAT [id number] 15:44:00 Test Item Value Reference Range Comments GLUCOSE RANDOM (BEAKER) (test ahhm=021) 255 mg/dL 70-110 HGB/HCT (H&H) - STAT [id number] 15:44:00 Test Item Value Reference Range Comments HEMOGLOBIN (BEAKER) (test ccsq=951) 9.0 g/dL 13.0-16.8 HEMATOCRIT (BEAKER) (test ejnl=557) 26.0 % 40.0-50.0 SODIUM NA-STAT [id number] 15:43:00 Test Item Value Reference Range Comments SODIUM (BEAKER) (test fkjq=655) 135 meq/L 135-148 POTASSIUM-STAT [id number] 15:43:00 Test Item Value Reference Range Comments POTASSIUM (BEAKER) (test lbco=592) 4.9 meq/L 3.6-5.5 BLOOD GAS, [id number] 14:59:00 Test Item Value Reference Range Comments PH ARTERIAL (BEAKER) (test tsfj=715) 7.38 7.35-7.45 PCO2 ARTERIAL (BEAKER) (test abyi=031) 40 mmHg 35-45 PO2 ARTERIAL (BEAKER) (test dauk=980) 294 mmHg 80-90 O2 SATURATION ARTERIAL (BEAKER) (test wvuf=274) 99.7 % 96.0-97.0 HCO3 ARTERIAL (BEAKER) (test jxva=899) 24 mmol/L 21-29 BASE EXCESS ARTERIAL (BEAKER) (test gyqa=727) -1.7 mmol/L -2.0-3.0 PATIENT TEMPERATURE (BEAKER) (test gjxy=7867) 35.1 C FIO2 (BEAKER) (test pydt=4051) 75.0 % SODIUM NA-STAT [id number] 14:59:00 Test Item Value Reference Range Comments SODIUM (BEAKER) (test osdv=156) 133 meq/L 135-148 GLUCOSE-STAT [id number] 14:59:00 Test Item Value Reference Range Comments GLUCOSE RANDOM (BEAKER) (test kvvg=899) 249 mg/dL 70-110 HGB/HCT (H&H) - STAT [id number] 14:59:00 Test Item Value Reference Range Comments HEMOGLOBIN (BEAKER) (test vngr=754) 7.9 g/dL 13.0-16.8 HEMATOCRIT (BEAKER) (test rejx=182) 23.0 % 40.0-50.0 POTASSIUM-STAT [id number] 14:58:00 Test Item Value Reference Range Comments POTASSIUM (BEAKER) (test pbqb=927) 4.6 meq/L 3.6-5.5 POTASSIUM-STAT [id number] 14:28:00 Test Item Value Reference Range Comments POTASSIUM (BEAKER) (test smwm=260) 3.9 meq/L 3.6-5.5 BLOOD GAS, [id number] 14:28:00 Test Item Value Reference Range Comments PH ARTERIAL (BEAKER) (test qgaq=887) 7.36 7.35-7.45 PCO2 ARTERIAL (BEAKER) (test uybw=877) 33 mmHg 35-45 PO2 ARTERIAL (BEAKER) (test lbfk=464) 323 mmHg 80-90 O2 SATURATION ARTERIAL (BEAKER) (test tfkf=955) 99.7 % 96.0-97.0 HCO3 ARTERIAL (BEAKER) (test nktd=825) 20 mmol/L 21-29 BASE EXCESS ARTERIAL (BEAKER) (test gofi=459) -7.0 mmol/L -2.0-3.0 PATIENT TEMPERATURE (BEAKER) (test jhoo=3623) 27.5 C FIO2 (BEAKER) (test lyex=5399) 60.0 % SODIUM NA-STAT [id number] 14:28:00 Test Item Value Reference Range Comments SODIUM (BEAKER) (test rfct=167) 132 meq/L 135-148 GLUCOSE-STAT [id number] 14:28:00 Test Item Value Reference Range Comments GLUCOSE RANDOM (BEAKER) (test gezf=356) 257 mg/dL 70-110 HGB/HCT (H&H) - STAT [id number] 14:28:00 Test Item Value Reference Range Comments HEMOGLOBIN (BEAKER) (test wqth=708) 8.6 g/dL 13.0-16.8 HEMATOCRIT (BEAKER) (test ktrw=756) 25.0 % 40.0-50.0 BLOOD GAS, [id number] 13:17:00 Test Item Value Reference Range Comments PH ARTERIAL (BEAKER) (test kltv=659) 7.34 7.35-7.45 PCO2 ARTERIAL (BEAKER) (test paye=739) 41 mmHg 35-45 PO2 ARTERIAL (BEAKER) (test lyur=328) 231 mmHg 80-90 O2 SATURATION ARTERIAL (BEAKER) (test kpau=440) 99.5 % 96.0-97.0 HCO3 ARTERIAL (BEAKER) (test whkf=818) 21 mmol/L 21-29 BASE EXCESS ARTERIAL (BEAKER) (test nqvm=923) -4.5 mmol/L -2.0-3.0 PATIENT TEMPERATURE (BEAKER) (test cymg=1768) 36.0 C FIO2 (BEAKER) (test pjns=4565) 100.0 % SODIUM NA-STAT [id number] 13:17:00 Test Item Value Reference Range Comments SODIUM (BEAKER) (test nnpe=299) 132 meq/L 135-148 GLUCOSE-STAT [id number] 13:17:00 Test Item Value Reference Range Comments GLUCOSE RANDOM (BEAKER) (test pntc=075) 139 mg/dL 70-110 CALCIUM, [id number] 13:14:00 Test Item Value Reference Range Comments CALCIUM IONIZED (BEAKER) (test tkte=006) 1.12 mmol/L 1.12-1.27 PH, BLOOD (BEAKER) (test rlje=7273) 7.32 POTASSIUM-STAT [id number] 13:13:00 Test Item Value Reference Range Comments POTASSIUM (BEAKER) (test vnpd=801) 3.9 meq/L 3.6-5.5 HGB/HCT (H&H) - STAT [id number] 13:13:00 Test Item Value Reference Range Comments HEMOGLOBIN (BEAKER) (test fyqa=484) 14.7 g/dL 13.0-16.8 HEMATOCRIT (BEAKER) (test ghjo=940) 43.0 % 40.0-50.0 BASIC METABOLIC [id number] 06:01:00 Test Item Value Reference Range Comments SODIUM (BEAKER) (test 138 meq/L 136-145 prsb=943) POTASSIUM (BEAKER) (test 4.0 meq/L 3.5-5.1 Specimen slightly jpxq=499) hemolyzed CHLORIDE (BEAKER) (test 104 meq/L 98-107 pjlo=185) CO2 (BEAKER) (test 22 meq/L 22-29 qejz=563) BLOOD UREA NITROGEN 15 mg/dL 7-21 (BEAKER) (test xgkw=539) CREATININE (BEAKER) (test 0.70 mg/dL 0.57-1.25 Specimen slightly usho=013) hemolyzed GLUCOSE RANDOM (BEAKER) 127 mg/dL 70-105 (test lacc=024) CALCIUM (BEAKER) (test 9.6 mg/dL 8.4-10.2 drnh=428) EGFR (BEAKER) (test 113 mL/min/1.73 sq m ESTIMATED GFR IS NOT qvxd=0161) ACCURATE CREATININE CLEARANCE IN PREDICTING GLOMERULAR FILTRATION RATE. ESTIMATED GFR IS NOT APPLICABLE FOR DIALYSIS PATIENTS. POCT-GLUCOSE [id number] 22:20:00 Test Item Value Reference Range Comments POC-GLUCOSE METER (BEAKER) 164 mg/dL 70-110 TESTED AT [facility] [address] [facility] (test sskj=4287) [place] [address] PROTHROMBIN [id number] 22:15:00 Test Item Value Reference Range Comments PROTIME (BEAKER) (test fqdu=402) 13.8 seconds 11.9-14.2 INR (BEAKER) (test fzko=397) 1.1 <=5.9 Effective 03/27/2019: PT Reference Range ChangeNew: 11.9-14.2 Previous: 11.7- 14.7RECOMMENDED COUMADIN/WARFARIN INR THERAPY RANGESSTANDARD DOSE: 2.0-3.0 Includes: PROPHYLAXIS for venous thrombosis, systemic embolization; TREATMENT for venous thrombosis and/or pulmonary embolus.HIGH RISK: Target INR is2.5-3.5 for patients wiht mechanical heart valves.[id number] 22:15:00 Test Item Value Reference Range Comments PARTIAL THROMBOPLASTIN TIME (BEAKER) (test 33.3 seconds 22.5-36.0 qsds=734) BASIC METABOLIC [id number] 21:43:00 Test Item Value Reference Range Comments SODIUM (BEAKER) (test 135 meq/L 136-145 qchk=153) POTASSIUM (BEAKER) (test 5.1 meq/L 3.5-5.1 Specimen moderately avxr=632) hemolyzed CHLORIDE (BEAKER) (test 104 meq/L 98-107 bads=286) CO2 (BEAKER) (test 22 meq/L 22-29 hbct=086) BLOOD UREA NITROGEN 17 mg/dL 7-21 (BEAKER) (test xaem=766) CREATININE (BEAKER) (test 0.72 mg/dL 0.57-1.25 Specimen moderately tqga=566) hemolyzed GLUCOSE RANDOM (BEAKER) 161 mg/dL 70-105 (test cjsx=439) CALCIUM (BEAKER) (test 9.4 mg/dL 8.4-10.2 ycgb=102) EGFR (BEAKER) (test 110 mL/min/1.73 sq m ESTIMATED GFR IS NOT oqve=2837) ACCURATE CREATININE CLEARANCE IN PREDICTING GLOMERULAR FILTRATION RATE. ESTIMATED GFR IS NOT APPLICABLE FOR DIALYSIS PATIENTS. CBC W/PLT COUNT & AUTO [id number] 21:14:00 Test Item Value Reference Range Comments WHITE BLOOD CELL COUNT (BEAKER) (test fzfa=394) 10.3 K/ L 3.5-10.5 RED BLOOD CELL COUNT (BEAKER) (test mugq=773) 4.96 M/ L 4.63-6.08 HEMOGLOBIN (BEAKER) (test skye=941) 15.2 GM/DL 13.7-17.5 HEMATOCRIT (BEAKER) (test eihy=223) 44.3 % 40.1-51.0 MEAN CORPUSCULAR VOLUME (BEAKER) (test lpok=668) 89.3 fL 79.0-92.2 MEAN CORPUSCULAR HEMOGLOBIN (BEAKER) (test 30.6 pg 25.7-32.2 zfoh=837) MEAN CORPUSCULAR HEMOGLOBIN CONC (BEAKER) (test 34.3 GM/DL 32.3-36.5 mhze=325) RED CELL DISTRIBUTION WIDTH (BEAKER) (test 12.8 % 11.6-14.4 bhah=317) PLATELET COUNT (BEAKER) (test qjas=094) 262 K/CU MM 150-450 MEAN PLATELET VOLUME (BEAKER) (test csdf=058) 9.3 fL 9.4-12.4 NUCLEATED RED BLOOD CELLS (BEAKER) (test 0 /100 WBC 0-0 wbih=373) NEUTROPHILS RELATIVE PERCENT (BEAKER) (test 73 % xjou=041) LYMPHOCYTES RELATIVE PERCENT (BEAKER) (test 19 % nzbm=191) MONOCYTES RELATIVE PERCENT (BEAKER) (test 7 % vgqp=811) EOSINOPHILS RELATIVE PERCENT (BEAKER) (test 1 % cxdh=846) BASOPHILS RELATIVE PERCENT (BEAKER) (test 0 % knyu=786) NEUTROPHILS ABSOLUTE COUNT (BEAKER) (test 7.53 K/ L 1.78-5.38 zvir=146) LYMPHOCYTES ABSOLUTE COUNT (BEAKER) (test 1.94 K/ L 1.32-3.57 nmnn=750) MONOCYTES ABSOLUTE COUNT (BEAKER) (test 0.69 K/ L 0.30-0.82 spcr=134) EOSINOPHILS ABSOLUTE COUNT (BEAKER) (test 0.12 K/ L 0.04-0.54 nyhq=944) BASOPHILS ABSOLUTE COUNT (BEAKER) (test 0.03 K/ L 0.01-0.08 nkrc=326) IMMATURE GRANULOCYTES-RELATIVE PERCENT (BEAKER) 0 % 0-1 (test ygcf=8595) BLOOD [id number] 05:01:00 Test Item Value Reference Range Comments CULTURE (BEAKER) (test wazy=6983) No growth in 5 days BLOOD [id number] 05:01:00 Test Item Value Reference Range Comments CULTURE (BEAKER) (test bkcu=0802) No growth in 5 days URINE [id number] 17:30:00 Test Item Value Reference Range Comments CULTURE (BEAKER) (test kxgd=8799) No growth POCT-GLUCOSE [id number] 12:44:00 Test Item Value Reference Range Comments POC-GLUCOSE METER (BEAKER) 243 mg/dL 70-110 TESTED AT [address] (test okei=5889) [place] [id number] VANCOMYCIN LEVEL, [id number] 09:18:00 Test Item Value Reference Range Comments VANCOMYCIN TROUGH (BEAKER) (test zhdg=868) 12.8 ug/mL 10.0-20.0 Please draw vancomycin trough level. If level greater than 20 mcg/mL, please hold 900 dose.POCT-GLUCOSE [id number] 08:07:00 Test Item Value Reference Range Comments POC-GLUCOSE METER (BEAKER) 225 mg/dL 70-110 TESTED AT [address] (test rrqa=2975) [place] [id number] POCT-GLUCOSE [id number] 21:42:00 Test Item Value Reference Range Comments POC-GLUCOSE METER (BEAKER) 304 mg/dL 70-110 TESTED AT [address] (test culz=6644) [place] [id number] POCT-GLUCOSE [id number] 18:30:00 Test Item Value Reference Range Comments POC-GLUCOSE METER (BEAKER) 259 mg/dL 70-110 TESTED AT [address] (test qzpo=8974) [place] [id number] POCT-GLUCOSE [id number] 14:03:00 Test Item Value Reference Range Comments POC-GLUCOSE METER (BEAKER) 297 mg/dL 70-110 TESTED AT [address] (test wyuj=1884) [place] [id number] RESPIRATORY PANEL [id number] 12:24:00 Test Item Value Reference Range Comments HUMAN METAPNEUMOVIRUS (BEAKER) (test Not detected Not detected, Equivocal mjqy=7723) RHINOVIRUS (BEAKER) (test ovmb=2309) Not detected Not detected, Equivocal INFLUENZA A (BEAKER) (test hflw=6731) Not detected Not detected, Equivocal INFLUENZA A (NO SUBTYPE) (test Not detected, Equivocal rech=1217) INFLUENZA A SUBTYPE H1 (BEAKER) (test Not detected, Equivocal gdnu=8413) INFLUENZA A SUBTYPE H3 (BEAKER) (test Not detected, Equivocal ypog=0587) INFLUENZA A SUBTYPE H1-2009 (BEAKER) Not detected, Equivocal (test beum=3928) INFLUENZA B (BEAKER) (test fspv=3730) Not detected Not detected, Equivocal RESPIRATORY SYNCYTIAL VIRUS (BEAKER) Not detected Not detected, Equivocal (test ainp=8537) PARAINFLUENZA VIRUS 1 (BEAKER) (test Not detected Not detected, Equivocal vbzu=6167) PARAINFLUENZA VIRUS 2 (BEAKER) (test Not detected Not detected, Equivocal plrk=9960) PARAINFLUENZA VIRUS 3 (BEAKER) (test Not detected Not detected, Equivocal uxog=1646) PARAINFLUENZA VIRUS 4 (BEAKER) (test Not detected Not detected, Equivocal yncd=1878) ADENOVIRUS (BEAKER) (test yqoq=4405) Not detected Not detected, Equivocal CORONAVIRUS 229E (BEAKER) (test Not detected Not detected, Equivocal pwkn=8246) CORONAVIRUS HKU1 (BEAKER) (test Not detected Not detected, Equivocal frha=9261) CORONAVIRUS NL63 (BEAKER) (test Not detected Not detected, Equivocal sclr=0408) CORONAVIRUS OC43 (BEAKER) (test Not detected Not detected, Equivocal pkde=1178) BORDETELLA PERTUSSIS (BEAKER) (test Not detected Not detected, Equivocal mbhj=6583) CHLAMYDOPHILA PNEUMONIAE (BEAKER) (test Not detected Not detected, Equivocal djkd=3080) MYCOPLASMA PNEUMONIAE (BEAKER) (test Not detected Not detected, Equivocal hgob=7279) Other viruses and bacteria not targeted by this PCR panel cannot be excluded; therefore clinical correlation and follow up of serology, culture results, and other molecular studies is required. The results are not intended to be used as the sole means for clinical diagnosis or patient management decisions. This sample was tested at the [facility] Molecular Diagnostics Laboratory using the [employer]wey[employer] Respiratory Panel. It is FDA cleared and [...] This laboratory is CLIA-certified and [employer] ([employer])-accredited to perform high complexity testing.POCT-GLUCOSE [id number] 07:58:00 Test Item Value Reference Range Comments POC-GLUCOSE METER (BEAKER) 209 mg/dL 70-110 TESTED AT [facility] [address] (test bdxx=3839) [facility] [address] RAD, CHEST, 1 VIEW, NON [id number] 07:32:00Reason for exam:->interval change in interstitial patternShould [...] [place] Verified Date/Time: 10/05/2018 07:32:16 Reading Location: [facility] Radiology Reading Room BASIC METABOLIC [id number] 06:37:00 Test Item Value Reference Range Comments SODIUM (BEAKER) (test 140 meq/L 136-145 mjry=451) POTASSIUM (BEAKER) (test 3.2 meq/L 3.5-5.1 ccjv=245) CHLORIDE (BEAKER) (test 105 meq/L 98-107 lpfg=038) CO2 (BEAKER) (test 28 meq/L 22-29 lyfq=974) BLOOD UREA NITROGEN 15 mg/dL 7-21 (BEAKER) (test otia=768) CREATININE (BEAKER) (test 0.74 mg/dL 0.57-1.25 qblp=678) GLUCOSE RANDOM (BEAKER) 191 mg/dL 70-105 (test toaw=065) CALCIUM (BEAKER) (test 9.1 mg/dL 8.4-10.2 lzof=625) EGFR (BEAKER) (test 106 mL/min/1.73 sq m ESTIMATED GFR IS NOT ytde=1930) ACCURATE CREATININE CLEARANCE IN PREDICTING GLOMERULAR FILTRATION RATE. ESTIMATED GFR IS NOT APPLICABLE FOR DIALYSIS PATIENTS. TROPONIN [id number] 06:35:00 Test Item Value Reference Range Comments TROPONIN I (BEAKER) (test gvyk=305) 0.02 ng/mL 0.00-0.03 Troponin I (TnI) levels [...] and persistent tachyarrhythmia.CBC W/PLT COUNT & AUTO [id number] 06:17:00 Test Item Value Reference Range Comments WHITE BLOOD CELL COUNT (BEAKER) (test dkbz=420) 6.3 K/ L 3.5-10.5 RED BLOOD CELL COUNT (BEAKER) (test fpbu=616) 4.43 M/ L 4.63-6.08 HEMOGLOBIN (BEAKER) (test zpjc=374) 13.6 GM/DL 13.7-17.5 HEMATOCRIT (BEAKER) (test xjpf=290) 39.8 % 40.1-51.0 MEAN CORPUSCULAR VOLUME (BEAKER) (test nmhr=804) 89.8 fL 79.0-92.2 MEAN CORPUSCULAR HEMOGLOBIN (BEAKER) (test 30.7 pg 25.7-32.2 dcvz=350) MEAN CORPUSCULAR HEMOGLOBIN CONC (BEAKER) (test 34.2 GM/DL 32.3-36.5 cwph=139) RED CELL DISTRIBUTION WIDTH (BEAKER) (test 13.1 % 11.6-14.4 xwyf=736) PLATELET COUNT (BEAKER) (test aobm=168) 200 K/CU MM 150-450 MEAN PLATELET VOLUME (BEAKER) (test yfyk=687) 9.5 fL 9.4-12.4 NUCLEATED RED BLOOD CELLS (BEAKER) (test 0 /100 WBC 0-0 ppbi=722) NEUTROPHILS RELATIVE PERCENT (BEAKER) (test 65 % frsx=894) LYMPHOCYTES RELATIVE PERCENT (BEAKER) (test 24 % kpkg=623) MONOCYTES RELATIVE PERCENT (BEAKER) (test 8 % zbyo=661) EOSINOPHILS RELATIVE PERCENT (BEAKER) (test 2 % jxdw=409) BASOPHILS RELATIVE PERCENT (BEAKER) (test 1 % pvoj=798) NEUTROPHILS ABSOLUTE COUNT (BEAKER) (test 4.12 K/ L 1.78-5.38 gheo=026) LYMPHOCYTES ABSOLUTE COUNT (BEAKER) (test 1.51 K/ L 1.32-3.57 jqgl=238) MONOCYTES ABSOLUTE COUNT (BEAKER) (test 0.50 K/ L 0.30-0.82 kavq=375) EOSINOPHILS ABSOLUTE COUNT (BEAKER) (test 0.15 K/ L 0.04-0.54 dqfs=606) BASOPHILS ABSOLUTE COUNT (BEAKER) (test 0.03 K/ L 0.01-0.08 tcth=846) IMMATURE GRANULOCYTES-RELATIVE PERCENT (BEAKER) 1 % 0-1 (test ilut=1532) POCT-GLUCOSE [id number] 23:02:00 Test Item Value Reference Range Comments POC-GLUCOSE METER (BEAKER) 305 mg/dL 70-110 TESTED AT [address] (test yijw=7211) [facility] [address] TROPONIN [id number] 22:20:00 Test Item Value Reference Range Comments TROPONIN I (BEAKER) (test xxme=663) 0.03 ng/mL 0.00-0.03 Troponin I (TnI) levels [...] acidosis, acute neurological disease, and persistent tachyarrhythmia.VITAMIN [id number] 18:10:00 Test Item Value Reference Range Comments VITAMIN B12 (BEAKER) (test ohfc=453) 596 pg/mL 213-816 TSH/FREE T4 IF [id number] 18:10:00 Test Item Value Reference Range Comments THYROID STIMULATING HORMONE (BEAKER) (test 0.64 uIU/mL 0.35-4.94 loio=161) POCT-GLUCOSE [id number] 17:15:00 Test Item Value Reference Range Comments POC-GLUCOSE METER (BEAKER) 178 mg/dL 70-110 TESTED AT [facility] [address] (test ceuj=2206) [facility] [address] CT, BRAIN, WITHOUT [id number] 17:08:00FINAL REPORT CT head without contrast 10/04/2018 [...] [place] Verified Date/Time: 10/04/2018 17:08:17 Reading Location: [facility] Radiology Reading Room BLOOD GAS, [id number] 16:32:00 Test Item Value Reference Range Comments PH ARTERIAL (BEAKER) (test lzfi=986) 7.39 7.35-7.45 PCO2 ARTERIAL (BEAKER) (test jawp=366) 46 mmHg 35-45 PO2 ARTERIAL (BEAKER) (test xvra=793) 71 mmHg 80-90 O2 SATURATION ARTERIAL (BEAKER) (test dnhy=951) 94.1 % 96.0-97.0 HCO3 ARTERIAL (BEAKER) (test xwrt=148) 27 mmol/L 21-29 BASE EXCESS ARTERIAL (BEAKER) (test ysqm=907) 1.5 mmol/L -2.0-3.0 PATIENT TEMPERATURE (BEAKER) (test cehd=5377) 37.0 C FIO2 (BEAKER) (test vmfj=2140) 36.0 % RAPID INFLUENZA A&B [id number] 16:22:00 Test Item Value Reference Range Comments RAPID INFLUENZA A AG (BEAKER) (test Negative Negative, Inconclusive dowj=0290) RAPID INFLUENZA B AG (BEAKER) (test Negative Negative, Inconclusive nkfc=1884) B-TYPE NATRIURETIC FACTOR (BNP)2018-10-04 13:22:00 Test Item Value Reference Range Comments B-TYPE NATRIURETIC PEPTIDE (BEAKER) (test tgvx=127) 23 pg/mL 0-100 TROPONIN [id number] 13:21:00 Test Item Value Reference Range Comments TROPONIN I (BEAKER) (test jfyy=883) 0.04 ng/mL 0.00-0.03 Troponin I (TnI) levels [...] failure, acidosis, acute neurological disease, and persistent tachyarrhythmia.[id number] 13:12:00 Test Item Value Reference Range Comments MAGNESIUM (BEAKER) (test dozz=756) 1.1 mg/dL 1.6-2.6 BASIC METABOLIC [id number] 13:12:00 Test Item Value Reference Range Comments SODIUM (BEAKER) (test 140 meq/L 136-145 okbj=580) POTASSIUM (BEAKER) (test 3.7 meq/L 3.5-5.1 tzsr=751) CHLORIDE (BEAKER) (test 105 meq/L 98-107 xrcv=542) CO2 (BEAKER) (test 25 meq/L 22-29 cssn=430) BLOOD UREA NITROGEN 24 mg/dL 7-21 (BEAKER) (test oqcx=887) CREATININE (BEAKER) (test 0.90 mg/dL 0.57-1.25 pwsg=410) GLUCOSE RANDOM (BEAKER) 167 mg/dL 70-105 (test wdng=867) CALCIUM (BEAKER) (test 9.1 mg/dL 8.4-10.2 ffgd=651) EGFR (BEAKER) (test 85 mL/min/1.73 sq m ESTIMATED GFR IS NOT tsxq=8784) ACCURATE CREATININE CLEARANCE IN PREDICTING GLOMERULAR FILTRATION RATE. ESTIMATED GFR IS NOT APPLICABLE FOR DIALYSIS PATIENTS. CBC W/PLT COUNT & AUTO [id number] 12:40:00 Test Item Value Reference Range Comments WHITE BLOOD CELL COUNT (BEAKER) (test jlzf=241) 9.5 K/ L 3.5-10.5 RED BLOOD CELL COUNT (BEAKER) (test ynel=385) 4.57 M/ L 4.63-6.08 HEMOGLOBIN (BEAKER) (test okty=375) 13.8 GM/DL 13.7-17.5 HEMATOCRIT (BEAKER) (test cjsp=923) 40.8 % 40.1-51.0 MEAN CORPUSCULAR VOLUME (BEAKER) (test gfyc=044) 89.3 fL 79.0-92.2 MEAN CORPUSCULAR HEMOGLOBIN (BEAKER) (test 30.2 pg 25.7-32.2 qbqv=019) MEAN CORPUSCULAR HEMOGLOBIN CONC (BEAKER) (test 33.8 GM/DL 32.3-36.5 otow=233) RED CELL DISTRIBUTION WIDTH (BEAKER) (test 13.2 % 11.6-14.4 etjp=229) PLATELET COUNT (BEAKER) (test tdbd=634) 229 K/CU MM 150-450 MEAN PLATELET VOLUME (BEAKER) (test akcm=824) 9.6 fL 9.4-12.4 NUCLEATED RED BLOOD CELLS (BEAKER) (test 0 /100 WBC 0-0 gpap=815) NEUTROPHILS RELATIVE PERCENT (BEAKER) (test 64 % ydrp=421) LYMPHOCYTES RELATIVE PERCENT (BEAKER) (test 26 % ptxn=279) MONOCYTES RELATIVE PERCENT (BEAKER) (test 8 % unmb=565) EOSINOPHILS RELATIVE PERCENT (BEAKER) (test 2 % xwjw=336) BASOPHILS RELATIVE PERCENT (BEAKER) (test 1 % eepz=313) NEUTROPHILS ABSOLUTE COUNT (BEAKER) (test 6.05 K/ L 1.78-5.38 zrnj=820) LYMPHOCYTES ABSOLUTE COUNT (BEAKER) (test 2.48 K/ L 1.32-3.57 wvdr=178) MONOCYTES ABSOLUTE COUNT (BEAKER) (test 0.73 K/ L 0.30-0.82 pkla=618) EOSINOPHILS ABSOLUTE COUNT (BEAKER) (test 0.14 K/ L 0.04-0.54 zxtw=248) BASOPHILS ABSOLUTE COUNT (BEAKER) (test 0.05 K/ L 0.01-0.08 akbd=161) IMMATURE GRANULOCYTES-RELATIVE PERCENT (BEAKER) 1 % 0-1 (test wens=9173) RAD, CHEST, 1 VIEW, NON [id number] 12:31:00Reason for exam:->chest painFINAL REPORT Chest one view. Clinical history: chest pain Comparison: September 07, 2018 Discussion: A frontal chest is provided. Cardiomediastinal contours are unchanged. There is mild bibasilar atelectasis, right greater than left. No new consolidation identified. No julisa pulmonary edema, pneumothorax, or significant effusion. Osseous structures demonstrate mild degenerative changes. Signed: Galen Pride Verified Date/Time: 10/04/2018 12:31:58 Reading Location: [facility] Radiology Reading Room FUNGUS CULTURE + [id number] 16:07:00 Test Item Value Reference Range Comments CULTURE (BEAKER) (test gtay=1546) <1+ Lauren albicans FUNGUS SMEAR (BEAKER) (test No fungi seen dono=2073) POCT-GLUCOSE [id number] 12:22:00 Test Item Value Reference Range Comments POC-GLUCOSE METER (BEAKER) 171 mg/dL 70-110 TESTED AT [address] (test ecls=3720) [facility] [address] POCT-GLUCOSE [id number] 08:28:00 Test Item Value Reference Range Comments POC-GLUCOSE METER (BEAKER) 212 mg/dL 70-110 TESTED AT [address] (test pueo=6205) [facility] [address] POCT-GLUCOSE [id number] 21:23:00 Test Item Value Reference Range Comments POC-GLUCOSE METER (BEAKER) 266 mg/dL 70-110 TESTED AT [address] (test ymjm=4078) [facility] [address] POCT-GLUCOSE [id number] 17:14:00 Test Item Value Reference Range Comments POC-GLUCOSE METER (BEAKER) 207 mg/dL 70-110 TESTED AT [address] (test amoh=6027) [facility] [address] POCT-GLUCOSE [id number] 11:43:00 Test Item Value Reference Range Comments POC-GLUCOSE METER (BEAKER) 182 mg/dL 70-110 TESTED AT [address] (test whjk=3678) [facility] [address] POCT-GLUCOSE [id number] 06:58:00 Test Item Value Reference Range Comments POC-GLUCOSE METER (BEAKER) 186 mg/dL 70-110 TESTED AT [address] (test fceg=7477) [facility] [address] POCT-GLUCOSE [id number] 21:22:00 Test Item Value Reference Range Comments POC-GLUCOSE METER (BEAKER) 230 mg/dL 70-110 TESTED AT [address] (test aezu=2938) [facility] [address] POCT-GLUCOSE [id number] 16:28:00 Test Item Value Reference Range Comments POC-GLUCOSE METER (BEAKER) 218 mg/dL 70-110 TESTED AT [address] (test sfou=8987) [facility] [address] POCT-GLUCOSE [id number] 11:28:00 Test Item Value Reference Range Comments POC-GLUCOSE METER (BEAKER) 215 mg/dL 70-110 TESTED AT [address] (test ezmh=8517) [facility] [address] POCT-GLUCOSE [id number] 06:58:00 Test Item Value Reference Range Comments POC-GLUCOSE METER (BEAKER) 197 mg/dL 70-110 TESTED AT [address] (test fqvn=1403) [facility] [address] POCT-GLUCOSE [id number] 21:35:00 Test Item Value Reference Range Comments POC-GLUCOSE METER (BEAKER) 266 mg/dL 70-110 TESTED AT [address] (test nwmp=6511) [facility] [address] POCT-GLUCOSE [id number] 17:08:00 Test Item Value Reference Range Comments POC-GLUCOSE METER (BEAKER) 189 mg/dL 70-110 TESTED AT [address] (test mfvz=7279) [facility] [address] POCT-GLUCOSE [id number] 11:44:00 Test Item Value Reference Range Comments POC-GLUCOSE METER (BEAKER) 223 mg/dL 70-110 TESTED AT [address] (test rcsb=4229) [place] [id number] POCT-GLUCOSE [id number] 07:21:00 Test Item Value Reference Range Comments POC-GLUCOSE METER (BEAKER) 173 mg/dL 70-110 TESTED AT [facility] [address] (test xahj=7963) [facility] [address] RAD, CHEST, 1 VIEW, NON [id number] 07:12:00Reason for exam:->pulm edemaShould this be performed at the bedside?->YesFINAL REPORT CLINICAL HISTORY: pulm edema TECHNIQUE: 1 view of the chest. COMPARISON : 09/06/2018 IMPRESSION: Right central line has been removed. There is decreased bibasilar atelectasis. There is no significant appearing pleural fluid. The cardiomediastinal silhouette is magnified by technique. Signed: Yimi Harkins MDReport Verified Date/Time: 09/07/2018 07:12:01 Reading Location : [facility] Radiology Reading Room [id number] 06:13:00 Test Item Value Reference Range Comments PHOSPHORUS (BEAKER) (test wier=651) 2.0 mg/dL 2.3-4.7 [id number] 06:13:00 Test Item Value Reference Range Comments MAGNESIUM (BEAKER) (test saly=777) 2.2 mg/dL 1.6-2.6 COMPREHENSIVE METABOLIC [id number] 06:13:00 Test Item Value Reference Range Comments TOTAL PROTEIN (BEAKER) 6.1 gm/dL 6.0-8.3 (test qell=627) ALBUMIN (BEAKER) (test 3.3 g/dL 3.5-5.0 uzdh=5014) ALKALINE PHOSPHATASE 44 U/L 40-150 (BEAKER) (test ljyc=388) BILIRUBIN TOTAL (BEAKER) 0.6 mg/dL 0.2-1.2 (test cfne=821) SODIUM (BEAKER) (test 141 meq/L 136-145 pdnc=161) POTASSIUM (BEAKER) (test 3.5 meq/L 3.5-5.1 yfed=287) CHLORIDE (BEAKER) (test 109 meq/L 98-107 hlpi=454) CO2 (BEAKER) (test 24 meq/L 22-29 zuvv=209) BLOOD UREA NITROGEN 11 mg/dL 7-21 (BEAKER) (test sqep=029) CREATININE (BEAKER) (test 0.63 mg/dL 0.57-1.25 dqqu=250) GLUCOSE RANDOM (BEAKER) 134 mg/dL 70-105 (test cltu=746) CALCIUM (BEAKER) (test 8.3 mg/dL 8.4-10.2 fqhp=679) AST (SGOT) (BEAKER) (test 21 U/L 5-34 igeu=022) ALT (SGPT) (BEAKER) (test 12 U/L 6-55 bihd=519) EGFR (BEAKER) (test 128 mL/min/1.73 sq ESTIMATED GFR IS NOT cigu=1567) m ACCURATE CREATININE CLEARANCE IN PREDICTING GLOMERULAR FILTRATION RATE. ESTIMATED GFR IS NOT APPLICABLE FOR DIALYSIS PATIENTS. CBC W/PLT COUNT & AUTO [id number] 05:22:00 Test Item Value Reference Range Comments WHITE BLOOD CELL COUNT (BEAKER) (test aloi=060) 6.9 K/ L 3.5-10.5 RED BLOOD CELL COUNT (BEAKER) (test gdcq=081) 3.83 M/ L 4.63-6.08 HEMOGLOBIN (BEAKER) (test jgeb=769) 11.8 GM/DL 13.7-17.5 HEMATOCRIT (BEAKER) (test fvli=378) 35.0 % 40.1-51.0 MEAN CORPUSCULAR VOLUME (BEAKER) (test tlot=170) 91.4 fL 79.0-92.2 MEAN CORPUSCULAR HEMOGLOBIN (BEAKER) (test 30.8 pg 25.7-32.2 sgye=226) MEAN CORPUSCULAR HEMOGLOBIN CONC (BEAKER) (test 33.7 GM/DL 32.3-36.5 pyia=158) RED CELL DISTRIBUTION WIDTH (BEAKER) (test 13.3 % 11.6-14.4 nexw=011) PLATELET COUNT (BEAKER) (test ohqe=089) 237 K/CU MM 150-450 MEAN PLATELET VOLUME (BEAKER) (test aotu=669) 9.8 fL 9.4-12.4 NUCLEATED RED BLOOD CELLS (BEAKER) (test 0 /100 WBC 0-0 xgyw=587) NEUTROPHILS RELATIVE PERCENT (BEAKER) (test 61 % oiee=089) LYMPHOCYTES RELATIVE PERCENT (BEAKER) (test 29 % akeo=004) MONOCYTES RELATIVE PERCENT (BEAKER) (test 8 % fbyd=931) EOSINOPHILS RELATIVE PERCENT (BEAKER) (test 1 % nxyq=614) BASOPHILS RELATIVE PERCENT (BEAKER) (test 0 % dtfn=991) NEUTROPHILS ABSOLUTE COUNT (BEAKER) (test 4.21 K/ L 1.78-5.38 khed=148) LYMPHOCYTES ABSOLUTE COUNT (BEAKER) (test 1.98 K/ L 1.32-3.57 qrpy=760) MONOCYTES ABSOLUTE COUNT (BEAKER) (test 0.54 K/ L 0.30-0.82 fxzq=979) EOSINOPHILS ABSOLUTE COUNT (BEAKER) (test 0.07 K/ L 0.04-0.54 lnfl=691) BASOPHILS ABSOLUTE COUNT (BEAKER) (test 0.03 K/ L 0.01-0.08 gwcp=034) IMMATURE GRANULOCYTES-RELATIVE PERCENT (BEAKER) 1 % 0-1 (test bzmn=8677) POCT-GLUCOSE [id number] 21:22:00 Test Item Value Reference Range Comments POC-GLUCOSE METER (BEAKER) 223 mg/dL 70-110 TESTED AT [address] (test bisw=3907) [place] [address] POCT-GLUCOSE [id number] 17:32:00 Test Item Value Reference Range Comments POC-GLUCOSE METER (BEAKER) 204 mg/dL 70-110 TESTED AT [address] (test cqgm=3694) [place] [address] MISCELLANEOUS LAB [id number] 14:45:00 Test Item Value Reference Range Comments SCAN RESULT (test [id number]=[id number]) POCT-GLUCOSE [id number] 13:12:00 Test Item Value Reference Range Comments POC-GLUCOSE METER (BEAKER) 224 mg/dL 70-110 TESTED AT [address] (test pptl=6617) [place] [address] POCT-GLUCOSE [id number] 07:36:00 Test Item Value Reference Range Comments POC-GLUCOSE METER (BEAKER) 173 mg/dL 70-110 TESTED AT [address] (test zogq=4386) [place] [address] RAD, CHEST, 1 VIEW, NON [id number] 07:19:00Reason for exam:->pulm edemaShould this be performed [...] Verified Date/Time: 09/06/2018 07:19:50 Reading Location: [facility] Radiology Reading Room COMPREHENSIVE METABOLIC [id number] 05:49:00 Test Item Value Reference Range Comments TOTAL PROTEIN (BEAKER) 5.6 gm/dL 6.0-8.3 (test kdxn=267) ALBUMIN (BEAKER) (test 3.0 g/dL 3.5-5.0 saug=3962) ALKALINE PHOSPHATASE 38 U/L 40-150 (BEAKER) (test anux=003) BILIRUBIN TOTAL (BEAKER) 0.5 mg/dL 0.2-1.2 (test trre=092) SODIUM (BEAKER) (test 142 meq/L 136-145 qylu=843) POTASSIUM (BEAKER) (test 3.4 meq/L 3.5-5.1 bfee=253) CHLORIDE (BEAKER) (test 112 meq/L 98-107 wpyd=025) CO2 (BEAKER) (test 24 meq/L 22-29 fhcj=425) BLOOD UREA NITROGEN 14 mg/dL 7-21 (BEAKER) (test gogs=633) CREATININE (BEAKER) (test 0.59 mg/dL 0.57-1.25 hcik=556) GLUCOSE RANDOM (BEAKER) 147 mg/dL 70-105 (test usao=564) CALCIUM (BEAKER) (test 7.7 mg/dL 8.4-10.2 lqta=107) AST (SGOT) (BEAKER) (test 16 U/L 5-34 dqua=464) ALT (SGPT) (BEAKER) (test 10 U/L 6-55 vkqz=879) EGFR (BEAKER) (test 138 mL/min/1.73 sq ESTIMATED GFR IS NOT etfc=0101) m ACCURATE CREATININE CLEARANCE IN PREDICTING GLOMERULAR FILTRATION RATE. ESTIMATED GFR IS NOT APPLICABLE FOR DIALYSIS PATIENTS. [id number] 05:47:00 Test Item Value Reference Range Comments PHOSPHORUS (BEAKER) (test ycap=828) 1.9 mg/dL 2.3-4.7 [id number] 05:47:00 Test Item Value Reference Range Comments MAGNESIUM (BEAKER) (test gqhb=782) 2.0 mg/dL 1.6-2.6 CBC W/PLT COUNT & AUTO [id number] 05:34:00 Test Item Value Reference Range Comments WHITE BLOOD CELL COUNT (BEAKER) (test bmuk=858) 6.7 K/ L 3.5-10.5 RED BLOOD CELL COUNT (BEAKER) (test nklr=734) 3.80 M/ L 4.63-6.08 HEMOGLOBIN (BEAKER) (test gyci=628) 11.6 GM/DL 13.7-17.5 HEMATOCRIT (BEAKER) (test yikx=532) 34.9 % 40.1-51.0 MEAN CORPUSCULAR VOLUME (BEAKER) (test phxr=515) 91.8 fL 79.0-92.2 MEAN CORPUSCULAR HEMOGLOBIN (BEAKER) (test 30.5 pg 25.7-32.2 ccoi=342) MEAN CORPUSCULAR HEMOGLOBIN CONC (BEAKER) (test 33.2 GM/DL 32.3-36.5 rmqa=962) RED CELL DISTRIBUTION WIDTH (BEAKER) (test 13.2 % 11.6-14.4 vmdd=265) PLATELET COUNT (BEAKER) (test qyqy=234) 215 K/CU MM 150-450 MEAN PLATELET VOLUME (BEAKER) (test ghtq=292) 9.2 fL 9.4-12.4 NUCLEATED RED BLOOD CELLS (BEAKER) (test 0 /100 WBC 0-0 nnqt=578) NEUTROPHILS RELATIVE PERCENT (BEAKER) (test 68 % gawu=370) LYMPHOCYTES RELATIVE PERCENT (BEAKER) (test 22 % hzjz=522) MONOCYTES RELATIVE PERCENT (BEAKER) (test 7 % undt=141) EOSINOPHILS RELATIVE PERCENT (BEAKER) (test 2 % ytaq=323) BASOPHILS RELATIVE PERCENT (BEAKER) (test 0 % mfwe=672) NEUTROPHILS ABSOLUTE COUNT (BEAKER) (test 4.53 K/ L 1.78-5.38 iyda=456) LYMPHOCYTES ABSOLUTE COUNT (BEAKER) (test 1.50 K/ L 1.32-3.57 kbia=844) MONOCYTES ABSOLUTE COUNT (BEAKER) (test 0.47 K/ L 0.30-0.82 feaf=355) EOSINOPHILS ABSOLUTE COUNT (BEAKER) (test 0.13 K/ L 0.04-0.54 jbdi=365) BASOPHILS ABSOLUTE COUNT (BEAKER) (test 0.02 K/ L 0.01-0.08 hoyz=024) IMMATURE GRANULOCYTES-RELATIVE PERCENT (BEAKER) 1 % 0-1 (test fvvb=7342) POCT-GLUCOSE [id number] 22:53:00 Test Item Value Reference Range Comments POC-GLUCOSE METER (BEAKER) 206 mg/dL 70-110 TESTED AT [address] (test apna=6719) [facility] [address] MR, SPINE, LUMBAR, [id number] 18:10:00FINAL REPORT MRI lumbar spine with and [...] and left foraminal disc protrusions. There is fjpf-bj-vranaxwt narrowing of the central canal, and left [...] [place] Verified Date/Time: 09/05/2018 18:10:50 Reading Location: [facility] C013V Neuro Reading Room POCT-GLUCOSE [id number] 18:07:00 Test Item Value Reference Range Comments POC-GLUCOSE METER (BEAKER) 183 mg/dL 70-110 TESTED AT [address] (test bwni=7070) [place] [address] POCT-GLUCOSE [id number] 11:53:00 Test Item Value Reference Range Comments POC-GLUCOSE METER (BEAKER) 324 mg/dL 70-110 Notified MILLA CARPENTER/TESTED AT [facility] (test fbrh=0273) [address] [place] [address] [id number] 10:47:00 Test Item Value Reference Range Comments LIPASE (BEAKER) (test vwxc=716) 141 U/L 8-78 POCT-GLUCOSE [id number] 07:43:00 Test Item Value Reference Range Comments POC-GLUCOSE METER (BEAKER) 176 mg/dL 70-110 TESTED AT [address] (test bdqp=1165) [place] [address] RAD, CHEST, 1 VIEW, NON [id number] 05:49:00Reason for exam:->pulm edemaShould this be performed at the bedside?->YesFINAL REPORT RAD, CHEST, 1 VIEW, NON DEPT INDICATION: pulm edema COMPARISON: Prior day's exam FINDINGS: Portable frontal view of the chest. IMPRESSION: Support Lines: Stable. Lungs and pleura: Unchanged airspace and pleural opacities. No pneumothorax.Heart and mediastinum: Stable contours. Additional findings: None. Signed: Ozzie Avila Verified Date/Time: 09/05/2018 05:49:04 Reading Location: [address] Transitional Reading Room [id number] 04:38 :00 Test Item Value Reference Range Comments PHOSPHORUS (BEAKER) (test imnf=112) 2.6 mg/dL 2.3-4.7 [id number] 04:38:00 Test Item Value Reference Range Comments MAGNESIUM (BEAKER) (test pzyp=428) 2.2 mg/dL 1.6-2.6 COMPREHENSIVE METABOLIC [id number] 04:38:00 Test Item Value Reference Range Comments TOTAL PROTEIN (BEAKER) 6.1 gm/dL 6.0-8.3 (test kolm=525) ALBUMIN (BEAKER) (test 3.3 g/dL 3.5-5.0 lvad=5408) ALKALINE PHOSPHATASE 42 U/L 40-150 (BEAKER) (test otzc=718) BILIRUBIN TOTAL (BEAKER) 0.6 mg/dL 0.2-1.2 (test jcli=971) SODIUM (BEAKER) (test 144 meq/L 136-145 dhja=967) POTASSIUM (BEAKER) (test 3.9 meq/L 3.5-5.1 wmxw=506) CHLORIDE (BEAKER) (test 111 meq/L 98-107 kior=173) CO2 (BEAKER) (test 26 meq/L 22-29 byxi=307) BLOOD UREA NITROGEN 22 mg/dL 7-21 (BEAKER) (test hyhp=046) CREATININE (BEAKER) (test 0.72 mg/dL 0.57-1.25 nfqg=987) GLUCOSE RANDOM (BEAKER) 165 mg/dL 70-105 (test mvcn=366) CALCIUM (BEAKER) (test 8.4 mg/dL 8.4-10.2 cavx=933) AST (SGOT) (BEAKER) (test 16 U/L 5-34 fngo=086) ALT (SGPT) (BEAKER) (test 10 U/L 6-55 txxp=283) EGFR (BEAKER) (test 110 mL/min/1.73 sq ESTIMATED GFR IS NOT eqpb=6125) m ACCURATE CREATININE CLEARANCE IN PREDICTING GLOMERULAR FILTRATION RATE. ESTIMATED GFR IS NOT APPLICABLE FOR DIALYSIS PATIENTS. CBC W/PLT COUNT & AUTO [id number] 04:16:00 Test Item Value Reference Range Comments WHITE BLOOD CELL COUNT (BEAKER) (test fskg=513) 10.5 K/ L 3.5-10.5 RED BLOOD CELL COUNT (BEAKER) (test mdhl=885) 3.87 M/ L 4.63-6.08 HEMOGLOBIN (BEAKER) (test chir=287) 11.8 GM/DL 13.7-17.5 HEMATOCRIT (BEAKER) (test wxvj=925) 36.0 % 40.1-51.0 MEAN CORPUSCULAR VOLUME (BEAKER) (test nojg=644) 93.0 fL 79.0-92.2 MEAN CORPUSCULAR HEMOGLOBIN (BEAKER) (test 30.5 pg 25.7-32.2 zdpj=022) MEAN CORPUSCULAR HEMOGLOBIN CONC (BEAKER) (test 32.8 GM/DL 32.3-36.5 ocnu=641) RED CELL DISTRIBUTION WIDTH (BEAKER) (test 13.5 % 11.6-14.4 zcmf=459) PLATELET COUNT (BEAKER) (test ejlb=050) 263 K/CU MM 150-450 MEAN PLATELET VOLUME (BEAKER) (test pder=851) 9.5 fL 9.4-12.4 NUCLEATED RED BLOOD CELLS (BEAKER) (test 0 /100 WBC 0-0 izwv=587) NEUTROPHILS RELATIVE PERCENT (BEAKER) (test 74 % wohn=428) LYMPHOCYTES RELATIVE PERCENT (BEAKER) (test 18 % xfgz=512) MONOCYTES RELATIVE PERCENT (BEAKER) (test 5 % rxhj=113) EOSINOPHILS RELATIVE PERCENT (BEAKER) (test 2 % sfhm=279) BASOPHILS RELATIVE PERCENT (BEAKER) (test 0 % jxeb=715) NEUTROPHILS ABSOLUTE COUNT (BEAKER) (test 7.70 K/ L 1.78-5.38 sufx=902) LYMPHOCYTES ABSOLUTE COUNT (BEAKER) (test 1.89 K/ L 1.32-3.57 ihci=975) MONOCYTES ABSOLUTE COUNT (BEAKER) (test 0.56 K/ L 0.30-0.82 oefb=009) EOSINOPHILS ABSOLUTE COUNT (BEAKER) (test 0.18 K/ L 0.04-0.54 guni=773) BASOPHILS ABSOLUTE COUNT (BEAKER) (test 0.04 K/ L 0.01-0.08 myjr=007) IMMATURE GRANULOCYTES-RELATIVE PERCENT (BEAKER) 1 % 0-1 (test grui=2104) U/S, ABDOMINAL, [id number] 02:32:00Reason for exam:->abd distension, nausea,vomittingShould this be [...] Ozzie Avila Verified Date/Time: 02:32:11 Reading Location: [address] Transitional Reading Room Electronically signed by: Hitesh ZARATE 09/05/2018 02:32 AMCT, [id number] 21:34:00Elevated lipaseFINAL REPORT CLINICAL HISTORY: Nausea, vomiting, [...] exclude an underlying lesion is recommended. Signed: Bliar Dang MDReport Verified Date/Time: 09/04/2018 21: 34:29 Reading Location: [address] Reading Room POCT- GLUCOSE [id number] 21:30:00 Test Item Value Reference Range Comments POC-GLUCOSE METER (BEAKER) 159 mg/dL 70-110 TESTED AT [address] (test sjgw=8125) [place] [address] VANCOMYCIN LEVEL, [id number] 21:17:00 Test Item Value Reference Range Comments VANCOMYCIN TROUGH (BEAKER) (test mpvn=527) 9.0 ug/mL 10.0-20.0 Please draw vancomycin trough level 09/04 at 2030 hold if trough >20POCT- GLUCOSE [id number] 18:32:00 Test Item Value Reference Range Comments POC-GLUCOSE METER (BEAKER) 174 mg/dL 70-110 TESTED AT [address] (test ukqx=7337) [place] [address] NEEDLE EMG, 4 [id number] 16:22:00Reason for exam:->r/o [facility] DepartmentELECTROMYOGRAPHY - NERVE CONDUCTION STUDY [address] [place] [address] [address] [place], [place] [id number] Name : Garrison Burnett : Date of [...] mm Median.LWrist 4.0 ms 4.6 ms 4 裳V Digit II (index finger)-Wrist 4.0 ms 130 mm 33 m/sUlnar.LWrist NR NR NR Digit V (little finger)-Wrist 110 mm Radial.LForearm 1.1 ms 2.0 ms 23 𔹘V Anatomical snuff box-Forearm 1.1 ms 110 mm 55 m/sSural.RLower leg 2.4 ms 3.5 ms 5 𕣊V Ankle-Lower leg 2.4 ms 140 mm 40 m/sMedian.RWrist 3.8 ms 4.5 ms 8 嬞V Digit II (index finger)-Wrist 3.8 ms 130 mm 34 m/sUlnar.RWrist NR NR NR Digit V (little finger)- Wrist 110 mm Radial.RForearm 1.9 ms 2.5 ms 18 𗓌V Anatomical snuff box-Forearm 1.9 ms 95 mm [...] Henriquez M.D. RAD, CHEST, 1 VIEW, NON [id number] 10:58:00Reason for exam:->pulm edemaShould this be performed [...] [place] Verified Date/Time: 09/04/2018 10:58:17 Reading Location: [facility] Radiology Reading Room [id number] 10:53:00 Test Item Value Reference Range Comments LIPASE (BEAKER) (test jjlt=313) 122 U/L 8-78 [id number] 10:53:00 Test Item Value Reference Range Comments AMYLASE (BEAKER) (test iysb=118) 86 U/L 25-125 RAD, ABDOMEN/KUB, 1 VIEW [id number] 10:34:00Reason for exam:->abdominal distensionShould this be performed [...] Verified Date/Time: 09/04/2018 10:34:31 Reading Location: [facility] Radiology Reading Room Electronically signed by: GALEN PRIDE M.D. on09/04/2018 10:34 AMBLOOD [id number] 10:01:00 Test Item Value Reference Range Comments CULTURE (BEAKER) (test zknf=2530) No growth in 5 days POCT-GLUCOSE [id number] 08:11:00 Test Item Value Reference Range Comments POC-GLUCOSE METER (BEAKER) 233 mg/dL 70-110 TESTED AT [facility] [address] (test swuy=8624) [facility] [address] BLOOD [id number] 05:01:00 Test Item Value Reference Range Comments CULTURE (BEAKER) (test syad=8111) No growth in 5 days [id number] 03:50:00 Test Item Value Reference Range Comments PHOSPHORUS (BEAKER) (test bhzj=149) 2.5 mg/dL 2.3-4.7 [id number] 03:50:00 Test Item Value Reference Range Comments MAGNESIUM (BEAKER) (test dlfd=075) 2.2 mg/dL 1.6-2.6 COMPREHENSIVE METABOLIC [id number] 03:50:00 Test Item Value Reference Range Comments TOTAL PROTEIN (BEAKER) 7.1 gm/dL 6.0-8.3 (test cxcz=720) ALBUMIN (BEAKER) (test 3.7 g/dL 3.5-5.0 krzu=0238) ALKALINE PHOSPHATASE 46 U/L 40-150 (BEAKER) (test wxuq=463) BILIRUBIN TOTAL (BEAKER) 0.6 mg/dL 0.2-1.2 (test ehsp=292) SODIUM (BEAKER) (test 143 meq/L 136-145 xcen=219) POTASSIUM (BEAKER) (test 3.8 meq/L 3.5-5.1 tjbw=442) CHLORIDE (BEAKER) (test 106 meq/L 98-107 cyvw=855) CO2 (BEAKER) (test 27 meq/L 22-29 vifx=029) BLOOD UREA NITROGEN 20 mg/dL 7-21 (BEAKER) (test plwa=081) CREATININE (BEAKER) (test 0.76 mg/dL 0.57-1.25 nnzw=012) GLUCOSE RANDOM (BEAKER) 219 mg/dL 70-105 (test zbos=162) CALCIUM (BEAKER) (test 9.1 mg/dL 8.4-10.2 eigo=314) AST (SGOT) (BEAKER) (test 17 U/L 5-34 jvvp=514) ALT (SGPT) (BEAKER) (test 14 U/L 6-55 fsqt=685) EGFR (BEAKER) (test 103 mL/min/1.73 sq ESTIMATED GFR IS NOT luch=8593) m ACCURATE CREATININE CLEARANCE IN PREDICTING GLOMERULAR FILTRATION RATE. ESTIMATED GFR IS NOT APPLICABLE FOR DIALYSIS PATIENTS. CBC W/PLT COUNT & AUTO [id number] 03:33:00 Test Item Value Reference Range Comments WHITE BLOOD CELL COUNT (BEAKER) (test sqsd=116) 13.5 K/ L 3.5-10.5 RED BLOOD CELL COUNT (BEAKER) (test tpos=881) 4.28 M/ L 4.63-6.08 HEMOGLOBIN (BEAKER) (test lmur=753) 13.3 GM/DL 13.7-17.5 HEMATOCRIT (BEAKER) (test ezqs=984) 39.0 % 40.1-51.0 MEAN CORPUSCULAR VOLUME (BEAKER) (test echv=743) 91.1 fL 79.0-92.2 MEAN CORPUSCULAR HEMOGLOBIN (BEAKER) (test 31.1 pg 25.7-32.2 updi=158) MEAN CORPUSCULAR HEMOGLOBIN CONC (BEAKER) (test 34.1 GM/DL 32.3-36.5 yhqk=318) RED CELL DISTRIBUTION WIDTH (BEAKER) (test 13.4 % 11.6-14.4 xrus=055) PLATELET COUNT (BEAKER) (test xyhh=314) 270 K/CU MM 150-450 MEAN PLATELET VOLUME (BEAKER) (test dnmp=347) 9.4 fL 9.4-12.4 NUCLEATED RED BLOOD CELLS (BEAKER) (test 0 /100 WBC 0-0 dsfy=559) NEUTROPHILS RELATIVE PERCENT (BEAKER) (test 84 % lhqr=600) LYMPHOCYTES RELATIVE PERCENT (BEAKER) (test 9 % ahht=245) MONOCYTES RELATIVE PERCENT (BEAKER) (test 5 % hqjj=658) EOSINOPHILS RELATIVE PERCENT (BEAKER) (test 1 % psei=568) BASOPHILS RELATIVE PERCENT (BEAKER) (test 0 % dynf=198) NEUTROPHILS ABSOLUTE COUNT (BEAKER) (test 11.40 K/ L 1.78-5.38 smno=802) LYMPHOCYTES ABSOLUTE COUNT (BEAKER) (test 1.22 K/ L 1.32-3.57 hqvo=588) MONOCYTES ABSOLUTE COUNT (BEAKER) (test 0.71 K/ L 0.30-0.82 noti=250) EOSINOPHILS ABSOLUTE COUNT (BEAKER) (test 0.08 K/ L 0.04-0.54 iyta=938) BASOPHILS ABSOLUTE COUNT (BEAKER) (test 0.04 K/ L 0.01-0.08 upvd=928) IMMATURE GRANULOCYTES-RELATIVE PERCENT (BEAKER) 1 % 0-1 (test qjkv=7966) POCT-GLUCOSE [id number] 22:18:00 Test Item Value Reference Range Comments POC-GLUCOSE METER (BEAKER) 262 mg/dL 70-110 TESTED AT [facility] [address] [facility] (test rrfq=7471) [facility] [address] C. DIFFICILE GDH [id number] 20:32:00 Test Item Value Reference Range Comments CDT TOXIN (test Negative Negative gxdv=[id number]) CDT GDH ANTIGEN (test Negative Negative No indication of Clostridium yqqh=[id number]) difficile infection and no colonization. Discontinue enteric isolation and therapy. Testing performed by [employer] Rapid Cassette Assay. For GDH, published sensitivity of the assay is 98.7% compared to cytotoxicity testing. For Toxin AB, published sensitivity is 87.8% and specificity 99.4% compared to cytotoxicity testing.Verification of kit performance was done by the [facility] Microbiology Lab prior to clinical use.RAD, ABDOMEN/KUB, 1 VIEW [id number] 18: 40:00Reason for exam:->abdominal distensionShould this be performed at the bedside?->YesFINAL REPORT Comparison: 08/30/2018 TECHNIQUE: Frontal images of the abdomen Discussion: Abdomen: Bowel gas pattern is nonobstructed. There is no free intraperitoneal air. No soft tissue abnormalities. No acute skeletal abnormality. Right upper: Cholecystectomy clips are seen.Impression: 1. Nonspecific bowel gas pattern. Signed: Shailesh Hardingort Verified Date/Time: 09/03/2018 18:40:53 Reading Location: [facility] Reading Room Electronically signed by: SHAILESH HARDING M.D. on 2017 06:40 PMPOCT-GLUCOSE [id number] 17:23:00 Test Item Value Reference Range Comments POC-GLUCOSE METER (BEAKER) 215 mg/dL 70-110 TESTED AT [facility] [address] (test otnx=9851) [place] [address] BLOOD GAS, [id number] 17:05:00 Test Item Value Reference Range Comments PH ARTERIAL (BEAKER) (test qhyy=187) 7.49 7.35-7.45 PCO2 ARTERIAL (BEAKER) (test tefd=704) 37 mmHg 35-45 PO2 ARTERIAL (BEAKER) (test dwiv=985) 69 mmHg 80-90 O2 SATURATION ARTERIAL (BEAKER) (test pkrc=978) 95.1 % 96.0-97.0 HCO3 ARTERIAL (BEAKER) (test ftrd=525) 27 mmol/L 21-29 BASE EXCESS ARTERIAL (BEAKER) (test jbpx=918) 3.8 mmol/L -2.0-3.0 PATIENT TEMPERATURE (BEAKER) (test qjto=0187) 36.9 C FIO2 (BEAKER) (test crko=6912) 28.0 % BLOOD GAS, [id number] 16:42:00 Test Item Value Reference Range Comments PH ARTERIAL (BEAKER) (test ccyy=112) 7.45 7.35-7.45 PCO2 ARTERIAL (BEAKER) (test tcbm=940) 39 mmHg 35-45 PO2 ARTERIAL (BEAKER) (test cqjo=235) 40 mmHg 80-90 O2 SATURATION ARTERIAL (BEAKER) (test vqsn=522) 78.0 % 96.0-97.0 HCO3 ARTERIAL (BEAKER) (test qtru=661) 27 mmol/L 21-29 BASE EXCESS ARTERIAL (BEAKER) (test kuej=919) 2.6 mmol/L -2.0-3.0 PATIENT TEMPERATURE (BEAKER) (test peas=9155) 36.7 C FIO2 (BEAKER) (test mqyy=6189) 28.0 % [id number] 15:06:00Medical Cytology Report Case: [id number] Authorizing Provider: Nannette Marie NP Collected: 08/31/2018 1146 Ordering Location: [place] [address] CCU Received: 09/03/2018 0900 Pathologist: Shannon Norman Specimen: Lung, Right Middle Lobe RIGHT MIDDLE LOBE LUNG, BAL ( CYTOSPINS): - NEGATIVE FOR MALIGNANCY Signing Pathologist Direct Phone Line: [phone] signed by Shannon Norman on 09/03/2018 at 3:06 [id number], PneumoniaRIGHT MIDDLE LOBE LUNG BALPrepared 4 cytospins from 20 ml colorless fluidCollected: [id number]: [id number] [facility], Department of Pathology, [address] [place] [address], [facility], [address] [place] [address] , [facility], [facility] of [facility], [address] [place] [address], TNQS-GLUCOSE [id number] 11:22:00 Test Item Value Reference Range Comments POC-GLUCOSE METER (BEAKER) 224 mg/dL 70-110 TESTED AT [address] (test pgcz=6284) [place] [address] RAD, CHEST, 1 VIEW, NON [id number] 06:16:00Reason for exam:->ETT placementShould this be performed [...] Verified Date/Time: 09/03/2018 06:16 :06 Reading Location: [address] Transitional Reading Room [id number] 05:13:00 Test Item Value Reference Range Comments MAGNESIUM (BEAKER) (test vork=291) 2.0 mg/dL 1.6-2.6 BASIC METABOLIC [id number] 05:13:00 Test Item Value Reference Range Comments SODIUM (BEAKER) (test 142 meq/L 136-145 zwsr=854) POTASSIUM (BEAKER) (test 4.1 meq/L 3.5-5.1 oymn=923) CHLORIDE (BEAKER) (test 108 meq/L 98-107 qdae=867) CO2 (BEAKER) (test 21 meq/L 22-29 qufk=815) BLOOD UREA NITROGEN 20 mg/dL 7-21 (BEAKER) (test jxqn=096) CREATININE (BEAKER) (test 0.78 mg/dL 0.57-1.25 vzqv=140) GLUCOSE RANDOM (BEAKER) 213 mg/dL 70-105 (test ffrw=743) CALCIUM (BEAKER) (test 9.5 mg/dL 8.4-10.2 xnxo=071) EGFR (BEAKER) (test 100 mL/min/1.73 sq m ESTIMATED GFR IS NOT fwuv=8975) ACCURATE CREATININE CLEARANCE IN PREDICTING GLOMERULAR FILTRATION RATE. ESTIMATED GFR IS NOT APPLICABLE FOR DIALYSIS PATIENTS. CBC W/PLT COUNT & AUTO [id number] 04:59:00 Test Item Value Reference Range Comments WHITE BLOOD CELL COUNT (BEAKER) (test qjff=791) 14.4 K/ L 3.5-10.5 RED BLOOD CELL COUNT (BEAKER) (test osev=504) 4.35 M/ L 4.63-6.08 HEMOGLOBIN (BEAKER) (test meop=079) 13.2 GM/DL 13.7-17.5 HEMATOCRIT (BEAKER) (test pjsg=499) 39.2 % 40.1-51.0 MEAN CORPUSCULAR VOLUME (BEAKER) (test gmkz=968) 90.1 fL 79.0-92.2 MEAN CORPUSCULAR HEMOGLOBIN (BEAKER) (test 30.3 pg 25.7-32.2 yyxi=223) MEAN CORPUSCULAR HEMOGLOBIN CONC (BEAKER) (test 33.7 GM/DL 32.3-36.5 afgz=075) RED CELL DISTRIBUTION WIDTH (BEAKER) (test 13.3 % 11.6-14.4 zcar=692) PLATELET COUNT (BEAKER) (test dtor=747) 254 K/CU MM 150-450 MEAN PLATELET VOLUME (BEAKER) (test pemz=642) 9.5 fL 9.4-12.4 NUCLEATED RED BLOOD CELLS (BEAKER) (test 0 /100 WBC 0-0 ytzr=007) NEUTROPHILS RELATIVE PERCENT (BEAKER) (test 85 % lmwk=046) LYMPHOCYTES RELATIVE PERCENT (BEAKER) (test 8 % hark=259) MONOCYTES RELATIVE PERCENT (BEAKER) (test 5 % firg=999) EOSINOPHILS RELATIVE PERCENT (BEAKER) (test 1 % ystm=324) BASOPHILS RELATIVE PERCENT (BEAKER) (test 0 % idnq=135) NEUTROPHILS ABSOLUTE COUNT (BEAKER) (test 12.25 K/ L 1.78-5.38 krak=466) LYMPHOCYTES ABSOLUTE COUNT (BEAKER) (test 1.21 K/ L 1.32-3.57 klsy=327) MONOCYTES ABSOLUTE COUNT (BEAKER) (test 0.70 K/ L 0.30-0.82 cnqm=265) EOSINOPHILS ABSOLUTE COUNT (BEAKER) (test 0.10 K/ L 0.04-0.54 olqc=457) BASOPHILS ABSOLUTE COUNT (BEAKER) (test 0.03 K/ L 0.01-0.08 bowz=506) IMMATURE GRANULOCYTES-RELATIVE PERCENT (BEAKER) 1 % 0-1 (test kkzy=4985) MR, SPINE, CERVICAL, [id number] 00:54:00FINAL REPORT MR Cervical spine with and [...] Verified Date/ Time: 09/03/2018 00:54:27 Reading Location: [facility] B1 C013T Transitional Reading Room VANCOMYCIN LEVEL, [id number] 00:52:00 Test Item Value Reference Range Comments VANCOMYCIN TROUGH (BEAKER) (test lcyq=469) 8.0 ug/mL 10.0-20.0 MR, MRA, NECK, WITHOUT IV [id number] 00:45:00FINAL REPORT CLINICAL HISTORY: r/o ALS TECHNIQUE: MRI of the brain utilizing axial T2, FLAIR, GRE, DWI; sagittal and coronal T1-weighted images as well as postcontrast T1 weighted images. MRA of the head utilizing 3-D lwmi-mi-fqrwwy technique, with 3-D reconstructions. MRA of the [...] clinically. No evidence for a major [place] proximal branch vessel occlusion. Intracranial atherosclerosis results in multifocal mild stenosis of the bilateral M2 segments of the middle cerebral arteries. 60% stenosis of the proximal left internal carotid artery by NASCET criteria No evidence of hemodynamically significant stenosis in the right cervical carotid or vertebral arteries by NASCET criteria. Signed: Ozzie Avila [facility] Verified Date/Time: 09/03/2018 00:45:16 Reading Location: [address] Transitional Reading Room , BRAIN, [id number] 00:45:00FINAL REPORT CLINICAL HISTORY: r/o ALS TECHNIQUE: MRI of the brain utilizing axial T2, FLAIR, GRE, DWI; sagittal and coronal T1-weighted images as well as postcontrast T1 weighted images. MRA of the head utilizing 3- D qymh-if-lrdozs technique, with 3-D reconstructions. MRA of the neck utilizing 2-D and 3-D bbzx-rd-aziejj technique, with 3-D reconstructions. COMPARISON: None MRI [...] clinically. No evidence for a major [place] proximal branch vessel occlusion. Intracranial atherosclerosis results in multifocal mild stenosis of the bilateral M2 segments of the middle cerebral arteries. 60% stenosis of the proximal left internal carotid artery by NASCET criteria No evidence of hemodynamically significant stenosis in the right cervical carotid or vertebral arteries by NASCET criteria. Signed: Ozzie Avila Verified Date/Time: 2017 00:45:16 Reading Location: [address] Transitional Reading Room MR, MRA, BRAIN, WITHOUT [id number] 00:45:00FINAL REPORT CLINICAL HISTORY: r/o ALS TECHNIQUE: MRI of the brain utilizing axial T2, FLAIR, GRE, DWI; sagittal and coronal T1-weighted images as well as postcontrast T1 weighted images. MRA of the head utilizing 3-D fohx-up-gyxwev technique, with 3-D reconstructions. MRA of the [...] clinically. No evidence for a major [place] proximal branch vessel occlusion. Intracranial atherosclerosis results in multifocal mild stenosis of the bilateral M2 segments of the middle cerebral arteries. 60% stenosis of the proximal left internal carotid artery by NASCET criteria No evidence of hemodynamically significant stenosis in the right cervical carotid or vertebral arteries by NASCET criteria. Signed: [facility] Verified Date/Time: 09/03/2018 00:45:16 Reading Location: [facility] Transitional Reading [facility] POCT-GLUCOSE [id number] 00:34:00 Test Item Value Reference Range Comments POC-GLUCOSE METER (BEAKER) 187 mg/dL 70-110 TESTED AT [address] (test wxxy=9084) [facility] [id number] POCT-GLUCOSE [id number] 16:17:00 Test Item Value Reference Range Comments POC-GLUCOSE METER (BEAKER) 180 mg/dL 70-110 TESTED AT [address] (test seoy=9596) [facility] [id number] BASIC METABOLIC [id number] 14:11:00 Test Item Value Reference Range Comments SODIUM (BEAKER) (test 139 meq/L 136-145 qrkm=070) POTASSIUM (BEAKER) (test 3.8 meq/L 3.5-5.1 Specimen slightly vqgi=766) hemolyzed CHLORIDE (BEAKER) (test 102 meq/L 98-107 ecut=354) CO2 (BEAKER) (test 24 meq/L 22-29 utia=322) BLOOD UREA NITROGEN 16 mg/dL 7-21 (BEAKER) (test xktj=043) CREATININE (BEAKER) (test 0.82 mg/dL 0.57-1.25 Specimen slightly vexa=644) hemolyzed GLUCOSE RANDOM (BEAKER) 187 mg/dL 70-105 (test hbzh=492) CALCIUM (BEAKER) (test 9.4 mg/dL 8.4-10.2 ceww=856) EGFR (BEAKER) (test 94 mL/min/1.73 sq m ESTIMATED GFR IS NOT vyzf=3133) ACCURATE CREATININE CLEARANCE IN PREDICTING GLOMERULAR FILTRATION RATE. ESTIMATED GFR IS NOT APPLICABLE FOR DIALYSIS PATIENTS. MRSA [id number] 13:43:00 Test Item Value Reference Range Comments CULTURE (BEAKER) (test METHICILLIN RESISTANT 1+ Methicillin xjof=6978) STAPHYLOCOCCUS AUREUS resistant Staphylococcus aureus Clindamycin (test code=10) Erythromycin (test code=4) Linezolid (test code=40) Oxacillin (test code=14) Rifampin (test code=43) Tetracycline (test code=2) Trimethoprim + Sulfamethoxazole (test code=47) Vancomycin (test code=13) SPUTUM CULTURE + GRAM [id number] 13:36:00 Test Item Value Reference Range Comments CULTURE (BEAKER) (test METHICILLIN RESISTANT <1+ Methicillin xyyz=1965) STAPHYLOCOCCUS AUREUS resistant Staphylococcus aureus Clindamycin (test code=10) Erythromycin (test code=4) Linezolid (test code=40) Nitrofurantoin (test code=23) Oxacillin (test code=14) Rifampin (test code=43) Tetracycline (test code=2) Trimethoprim + Sulfamethoxazole (test code=47) Vancomycin (test code=13) GRAM STAIN RESULT 4+ WBCs (BEAKER) (test oulf=2843) GRAM STAIN RESULT 0-5 epithelial cells (BEAKER) (test kajr=736119) GRAM STAIN RESULT 1+ gram positive cocci (BEAKER) (test in pairs and clusters cotk=158603) GRAM STAIN RESULT 1+ yeast (BEAKER) (test iiun=286695) <1+ Normal respiratory davie presentPOCT-GLUCOSE [id number] 10:05:00 Test Item Value Reference Range Comments POC-GLUCOSE METER (BEAKER) 210 mg/dL 70-110 TESTED AT [facility] [address] [facility] (test zofl=9847) [facility] [address] BRONCHIAL CULTURE + GRAM [id number] 06:57:00 Test Item Value Reference Range Comments CULTURE (BEAKER) (test No growth bcbq=7634) GRAM STAIN RESULT No WBCs This is an appended report. (BEAKER) (test These results have been wfqe=4303) appended to a previously preliminary verified report. GRAM STAIN RESULT No organisms seen This is an appended report. (BEAKER) (test These results have been kpll=77907) appended to a previously preliminary verified report. BLOOD GAS, [id number] 05:30:00 Test Item Value Reference Range Comments PH ARTERIAL (BEAKER) (test xjgb=519) 7.43 7.35-7.45 PCO2 ARTERIAL (BEAKER) (test evnl=145) 39 mmHg 35-45 PO2 ARTERIAL (BEAKER) (test qinm=934) 86 mmHg 80-90 O2 SATURATION ARTERIAL (BEAKER) (test facc=355) 96.7 % 96.0-97.0 HCO3 ARTERIAL (BEAKER) (test ckba=014) 25 mmol/L 21-29 BASE EXCESS ARTERIAL (BEAKER) (test vabt=126) 0.8 mmol/L -2.0-3.0 PATIENT TEMPERATURE (BEAKER) (test egen=9357) 37.0 C FIO2 (BEAKER) (test whqo=4380) 50.0 % RAD, CHEST, 1 VIEW, NON [id number] 04:24:00Reason for exam:->ETT placementShould this be performed [...] Avila Verified Date/Time: 09/02/2018 04:24:02 Reading Location: [facility] Transitional Reading Room [id number] 04:04:00 Test Item Value Reference Range Comments MAGNESIUM (BEAKER) (test phpz=222) 1.9 mg/dL 1.6-2.6 BASIC METABOLIC [id number] 04:04:00 Test Item Value Reference Range Comments SODIUM (BEAKER) (test 139 meq/L 136-145 cztb=748) POTASSIUM (BEAKER) (test 3.7 meq/L 3.5-5.1 nwpi=313) CHLORIDE (BEAKER) (test 108 meq/L 98-107 nudw=730) CO2 (BEAKER) (test 24 meq/L 22-29 zbqj=933) BLOOD UREA NITROGEN 20 mg/dL 7-21 (BEAKER) (test glsm=601) CREATININE (BEAKER) (test 0.77 mg/dL 0.57-1.25 cbin=365) GLUCOSE RANDOM (BEAKER) 176 mg/dL 70-105 (test ypqz=646) CALCIUM (BEAKER) (test 8.6 mg/dL 8.4-10.2 wifq=751) EGFR (BEAKER) (test 101 mL/min/1.73 sq m ESTIMATED GFR IS NOT qpcd=4149) ACCURATE CREATININE CLEARANCE IN PREDICTING GLOMERULAR FILTRATION RATE. ESTIMATED GFR IS NOT APPLICABLE FOR DIALYSIS PATIENTS. CBC W/PLT COUNT & AUTO [id number] 03:31:00 Test Item Value Reference Range Comments WHITE BLOOD CELL COUNT (BEAKER) (test fkgj=344) 8.8 K/ L 3.5-10.5 RED BLOOD CELL COUNT (BEAKER) (test ojhi=674) 3.74 M/ L 4.63-6.08 HEMOGLOBIN (BEAKER) (test aedf=890) 11.3 GM/DL 13.7-17.5 HEMATOCRIT (BEAKER) (test vhnj=041) 34.2 % 40.1-51.0 MEAN CORPUSCULAR VOLUME (BEAKER) (test xcvu=685) 91.4 fL 79.0-92.2 MEAN CORPUSCULAR HEMOGLOBIN (BEAKER) (test 30.2 pg 25.7-32.2 quhz=430) MEAN CORPUSCULAR HEMOGLOBIN CONC (BEAKER) (test 33.0 GM/DL 32.3-36.5 nffv=407) RED CELL DISTRIBUTION WIDTH (BEAKER) (test 13.5 % 11.6-14.4 qtkb=357) PLATELET COUNT (BEAKER) (test gmva=064) 210 K/CU MM 150-450 MEAN PLATELET VOLUME (BEAKER) (test hjto=088) 9.3 fL 9.4-12.4 NUCLEATED RED BLOOD CELLS (BEAKER) (test 0 /100 WBC 0-0 zyrq=612) NEUTROPHILS RELATIVE PERCENT (BEAKER) (test 74 % fpnw=713) LYMPHOCYTES RELATIVE PERCENT (BEAKER) (test 18 % edpm=327) MONOCYTES RELATIVE PERCENT (BEAKER) (test 6 % hkoj=569) EOSINOPHILS RELATIVE PERCENT (BEAKER) (test 1 % wajy=695) BASOPHILS RELATIVE PERCENT (BEAKER) (test 0 % kzff=085) NEUTROPHILS ABSOLUTE COUNT (BEAKER) (test 6.56 K/ L 1.78-5.38 kles=540) LYMPHOCYTES ABSOLUTE COUNT (BEAKER) (test 1.57 K/ L 1.32-3.57 hvwq=980) MONOCYTES ABSOLUTE COUNT (BEAKER) (test 0.53 K/ L 0.30-0.82 rwiy=006) EOSINOPHILS ABSOLUTE COUNT (BEAKER) (test 0.10 K/ L 0.04-0.54 exwt=398) BASOPHILS ABSOLUTE COUNT (BEAKER) (test 0.02 K/ L 0.01-0.08 pbyv=103) IMMATURE GRANULOCYTES-RELATIVE PERCENT (BEAKER) 1 % 0-1 (test aaqp=1886) POCT-GLUCOSE [id number] 22:19:00 Test Item Value Reference Range Comments POC-GLUCOSE METER (BEAKER) 182 mg/dL 70-110 TESTED AT [address] (test ycsk=5870) [place] [id number] VANCOMYCIN LEVEL, [id number] 21:04:00 Test Item Value Reference Range Comments VANCOMYCIN TROUGH ([facility]) (test jxhp=763) 14.4 ug/mL 10.0-20.0 [id number] 15:16:00 Test Item Value Reference Range Comments ACTIVATED CLOTTING TIME 142 sec TESTED AT [address] ([facility]) (test rrbn=222) [place] [address] [id number] 13:53:00 Test Item Value Reference Range Comments ACTIVATED CLOTTING TIME 164 sec TESTED AT [address] ([facility]) (test qyac=407) [place] [address] POCT-GLUCOSE [id number] 12:28:00 Test Item Value Reference Range Comments POC-GLUCOSE METER ([facility]) 217 mg/dL 70-110 TESTED AT [address] (test zftq=3519) [place] [address] [id number] 12:10:00 Test Item Value Reference Range Comments ACTIVATED CLOTTING TIME 296 sec TESTED AT [address] ([facility]) (test jhuv=010) [place] [address] TROPONIN [id number] 09:22:00 Test Item Value Reference Range Comments TROPONIN I ([facility]) (test dqpq=999) 3.77 ng/mL 0.00-0.03 Troponin I (TnI) levels [...] failure, acidosis, acute neurological disease, and persistent tachyarrhythmia.[id number] 05:27:00 Test Item Value Reference Range Comments PARTIAL THROMBOPLASTIN TIME (AKER) (test 76.0 seconds 22.5-36.0 bjbl=678) [id number] 05:22:00 Test Item Value Reference Range Comments MAGNESIUM ([facility]) (test yhko=615) 2.1 mg/dL 1.6-2.6 BASIC METABOLIC [id number] 05:22:00 Test Item Value Reference Range Comments SODIUM (BEAKER) (test 138 meq/L 136-145 prtk=062) POTASSIUM (BEAKER) (test 4.0 meq/L 3.5-5.1 xbdm=448) CHLORIDE (BEAKER) (test 108 meq/L 98-107 prpj=083) CO2 (BEAKER) (test 21 meq/L 22-29 ypwv=858) BLOOD UREA NITROGEN 25 mg/dL 7-21 (BEAKER) (test nidq=403) CREATININE (BEAKER) (test 0.96 mg/dL 0.57-1.25 fkbc=639) GLUCOSE RANDOM (BEAKER) 216 mg/dL 70-105 (test odyc=668) CALCIUM (BEAKER) (test 8.4 mg/dL 8.4-10.2 hctw=778) EGFR (BEAKER) (test 79 mL/min/1.73 sq m ESTIMATED GFR IS NOT hubs=3679) ACCURATE CREATININE CLEARANCE IN PREDICTING GLOMERULAR FILTRATION RATE. ESTIMATED GFR IS NOT APPLICABLE FOR DIALYSIS PATIENTS. RAD, CHEST, 1 VIEW, NON [id number] 04:50:00Reason for exam:->respiratory failureShould this be performed [...] MDReport Verified Date/Time: 09/01/2018 04:50:17 Reading Location: [address] Reading Room Electronically signed by: BLAIR DANG M.D. on 04:50 AMCBC (HEMOGRAM ONLY)2018-09-01 04:39:00 Test Item Value Reference Range Comments WHITE BLOOD CELL COUNT (BEAKER) (test xkjb=562) 9.0 K/ L 3.5-10.5 RED BLOOD CELL COUNT (BEAKER) (test lkng=115) 4.10 M/ L 4.63-6.08 HEMOGLOBIN (BEAKER) (test vkuc=218) 12.3 GM/DL 13.7-17.5 HEMATOCRIT (BEAKER) (test tjcc=661) 37.0 % 40.1-51.0 MEAN CORPUSCULAR VOLUME (BEAKER) (test ntoh=897) 90.2 fL 79.0-92.2 MEAN CORPUSCULAR HEMOGLOBIN (BEAKER) (test 30.0 pg 25.7-32.2 jcqt=779) MEAN CORPUSCULAR HEMOGLOBIN CONC (BEAKER) (test 33.2 GM/DL 32.3-36.5 hjvn=762) RED CELL DISTRIBUTION WIDTH (BEAKER) (test 13.7 % 11.6-14.4 xnxa=377) PLATELET COUNT (BEAKER) (test hlvr=927) 207 K/CU MM 150-450 MEAN PLATELET VOLUME (BEAKER) (test fajd=638) 9.6 fL 9.4-12.4 NUCLEATED RED BLOOD CELLS (BEAKER) (test 0 /100 WBC 0-0 mcko=580) TROPONIN [id number] 00:59:00 Test Item Value Reference Range Comments TROPONIN I (BEAKER) (test cdch=748) 5.45 ng/mL 0.00-0.03 Troponin I (TnI) levels [...] acidosis, acute neurological disease, and persistent tachyarrhythmia.POCT-GLUCOSE [id number] 22:43:00 Test Item Value Reference Range Comments POC-GLUCOSE METER (BEAKER) 177 mg/dL 70-110 TESTED AT [facility] [address] [facility] (test cmbo=6797) [facility] [address] TROPONIN [id number] 18:36:00 Test Item Value Reference Range Comments TROPONIN I (BEAKER) (test hgrb=236) 6.48 ng/mL 0.00-0.03 Troponin I (TnI) levels [...] failure, acidosis, acute neurological disease, and persistent tachyarrhythmia.[id number] 18:35:00 Test Item Value Reference Range Comments PARTIAL THROMBOPLASTIN TIME (BEAKER) (test 66.0 seconds 22.5-36.0 jhyp=806) POCT-GLUCOSE [id number] 16:40:00 Test Item Value Reference Range Comments POC-GLUCOSE METER (BEAKER) 161 mg/dL 70-110 TESTED AT [address] (test izqa=7014) [place] [id number] POCT-GLUCOSE [id number] 15:13:00 Test Item Value Reference Range Comments POC-GLUCOSE METER (BEAKER) 149 mg/dL 70-110 TESTED AT [address] (test lhwj=7127) [place] [address] BODY FLUID CELL COUNT WITH [id number] 14:28:00 Test Item Value Reference Range Comments APPEARANCE FLUID (BEAKER) (test dvtf=490) Hazy Clear COLOR FLUID (BEAKER) (test vzgm=213) [place] Colorless, Straw RBC FLUID (BEAKER) (test xquk=765) 280 /cu mm <=1 ADJUSTED WBC FLUID (BEAKER) (test tzju=7062) 139 /cu mm <=5 LINING CELLS (BEAKER) (test oldi=3149) 1 /cu mm <=1 NEUTROPHILS FLUID (BEAKER) (test qyfi=3290) 77 % LYMPHS FLUID (BEAKER) (test jnpz=741) 5 % MONO/MACROPHAGE FLUID (BEAKER) (test jfxt=878) 18 % EOSINOPHILS FLUID (BEAKER) (test ueen=968) 0 % BASO FLUID (BEAKER) (test dptm=956) 0 % CONTAINER BODY FLUID (BEAKER) (test sdud=6718) EDTA Tube POCT-GLUCOSE [id number] 14:17:00 Test Item Value Reference Range Comments POC-GLUCOSE METER (BEAKER) 121 mg/dL 70-110 TESTED AT [address] (test opvl=2756) [place] [id number] POCT-GLUCOSE [id number] 13:05:00 Test Item Value Reference Range Comments POC-GLUCOSE METER (BEAKER) 176 mg/dL 70-110 TESTED AT [address] (test hhwk=8695) [place] [address] VANCOMYCIN LEVEL, [id number] 13:01:00 Test Item Value Reference Range Comments VANCOMYCIN RANDOM (BEAKER) (test rwdv=254) 7.8 ug/mL Reference Range: No NormalsPOCT-GLUCOSE [id number] 12:08:00 Test Item Value Reference Range Comments POC-GLUCOSE METER (BEAKER) 168 mg/dL 70-110 TESTED AT [address] (test uowd=9729) [place] [address] POCT-GLUCOSE [id number] 10:54:00 Test Item Value Reference Range Comments POC-GLUCOSE METER (BEAKER) 159 mg/dL 70-110 TESTED AT [address] (test qwzt=0255) [place] [address] [id number] 10:01:00 Test Item Value Reference Range Comments PARTIAL THROMBOPLASTIN TIME (AKER) (test 44.9 seconds 22.5-36.0 lhbw=059) POCT-GLUCOSE [id number] 09:31:00 Test Item Value Reference Range Comments POC-GLUCOSE METER (BEAKER) 98 mg/dL 70-110 TESTED AT [address] (test iqxc=2718) [place] [address] POCT-GLUCOSE [id number] 08:31:00 Test Item Value Reference Range Comments POC-GLUCOSE METER (BEAKER) 118 mg/dL 70-110 TESTED AT [address] (test itpi=9355) [place] [address] TROPONIN [id number] 08:28:00 Test Item Value Reference Range Comments TROPONIN I (BEAKER) (test esmy=110) 9.00 ng/mL 0.00-0.03 Troponin I (TnI) levels [...] acidosis, acute neurological disease, and persistent tachyarrhythmia.POCT-GLUCOSE [id number] 07:13:00 Test Item Value Reference Range Comments POC-GLUCOSE METER (BEAKER) 120 mg/dL 70-110 TESTED AT [facility] [address] [facility] (test tlhx=9890) [facility] [address] POCT-GLUCOSE [id number] 06:10:00 Test Item Value Reference Range Comments POC-GLUCOSE METER (BEAKER) 152 mg/dL 70-110 TESTED AT [address] (test dukk=5901) [place] [id number] POCT-GLUCOSE [id number] 05:07:00 Test Item Value Reference Range Comments POC-GLUCOSE METER (BEAKER) 156 mg/dL 70-110 TESTED AT [address] (test cceg=5087) [place] [address] [id number] 04:56:00 Test Item Value Reference Range Comments MAGNESIUM (BEAKER) (test uept=259) 1.9 mg/dL 1.6-2.6 BASIC METABOLIC [id number] 04:56:00 Test Item Value Reference Range Comments SODIUM (BEAKER) (test 144 meq/L 136-145 vqev=889) POTASSIUM (BEAKER) (test 3.7 meq/L 3.5-5.1 zplw=357) CHLORIDE (BEAKER) (test 109 meq/L 98-107 bvbs=975) CO2 (BEAKER) (test 25 meq/L 22-29 tjfp=173) BLOOD UREA NITROGEN 32 mg/dL 7-21 (BEAKER) (test fxqs=445) CREATININE (BEAKER) (test 1.12 mg/dL 0.57-1.25 hffr=095) GLUCOSE RANDOM (BEAKER) 149 mg/dL 70-105 (test mrio=953) CALCIUM (BEAKER) (test 8.7 mg/dL 8.4-10.2 giuk=501) EGFR (BEAKER) (test 66 mL/min/1.73 sq m ESTIMATED GFR IS NOT kepk=1212) ACCURATE CREATININE CLEARANCE IN PREDICTING GLOMERULAR FILTRATION RATE. ESTIMATED GFR IS NOT APPLICABLE FOR DIALYSIS PATIENTS. CBC (HEMOGRAM ONLY)2018-08-31 04:33:00 Test Item Value Reference Range Comments WHITE BLOOD CELL COUNT (BEAKER) (test cdug=165) 11.6 K/ L 3.5-10.5 RED BLOOD CELL COUNT (BEAKER) (test yysm=811) 4.00 M/ L 4.63-6.08 HEMOGLOBIN (BEAKER) (test xetq=609) 12.0 GM/DL 13.7-17.5 HEMATOCRIT (BEAKER) (test rdla=699) 35.4 % 40.1-51.0 MEAN CORPUSCULAR VOLUME (BEAKER) (test hpth=977) 88.5 fL 79.0-92.2 MEAN CORPUSCULAR HEMOGLOBIN (BEAKER) (test 30.0 pg 25.7-32.2 msob=089) MEAN CORPUSCULAR HEMOGLOBIN CONC (BEAKER) (test 33.9 GM/DL 32.3-36.5 mcfa=916) RED CELL DISTRIBUTION WIDTH (BEAKER) (test 14.0 % 11.6-14.4 vjju=772) PLATELET COUNT (BEAKER) (test cysm=129) 216 K/CU MM 150-450 MEAN PLATELET VOLUME (BEAKER) (test xpda=728) 9.6 fL 9.4-12.4 NUCLEATED RED BLOOD CELLS (BEAKER) (test 0 /100 WBC 0-0 swiv=723) BLOOD GAS, [id number] 04:21:00 Test Item Value Reference Range Comments PH ARTERIAL (BEAKER) (test lawb=776) 7.45 7.35-7.45 PCO2 ARTERIAL (BEAKER) (test ggsv=730) 38 mmHg 35-45 PO2 ARTERIAL (BEAKER) (test ipbm=030) 75 mmHg 80-90 O2 SATURATION ARTERIAL (BEAKER) (test ijgr=335) 95.6 % 96.0-97.0 HCO3 ARTERIAL (BEAKER) (test dhtd=449) 26 mmol/L 21-29 BASE EXCESS ARTERIAL (BEAKER) (test aqcl=735) 1.6 mmol/L -2.0-3.0 PATIENT TEMPERATURE (BEAKER) (test jtei=0055) 36.9 C FIO2 (BEAKER) (test adtu=4156) 60.0 % POCT-GLUCOSE [id number] 04:10:00 Test Item Value Reference Range Comments POC-GLUCOSE METER (BEAKER) 142 mg/dL 70-110 TESTED AT [facility] [address] [facility] (test gctx=1794) [facility] [address] POCT-GLUCOSE [id number] 03:03:00 Test Item Value Reference Range Comments POC-GLUCOSE METER (BEAKER) 129 mg/dL 70-110 TESTED AT [address] (test svsy=6299) [facility] [address] [id number] 02:39:00 Test Item Value Reference Range Comments PARTIAL THROMBOPLASTIN TIME (BEAKER) (test 61.7 seconds 22.5-36.0 upzk=392) POCT-GLUCOSE [id number] 02:05:00 Test Item Value Reference Range Comments POC-GLUCOSE METER (BEAKER) 108 mg/dL 70-110 TESTED AT [address] (test vojz=9201) [facility] [address] POCT-GLUCOSE [id number] 01:28:00 Test Item Value Reference Range Comments POC-GLUCOSE METER (BEAKER) 93 mg/dL 70-110 TESTED AT [address] (test mkjk=8733) [place] [id number] TROPONIN [id number] 01:04:00 Test Item Value Reference Range Comments TROPONIN I (BEAKER) (test mffs=742) 11.40 ng/mL 0.00-0.03 Troponin I (TnI) levels [...] acute neurological disease, and persistent tachyarrhythmia.BLOOD GAS, [id number] 00:14:00 Test Item Value Reference Range Comments PH ARTERIAL (BEAKER) (test avif=589) 7.50 7.35-7.45 PCO2 ARTERIAL (BEAKER) (test ideu=006) 36 mmHg 35-45 PO2 ARTERIAL (BEAKER) (test fmav=327) 56 mmHg 80-90 O2 SATURATION ARTERIAL (BEAKER) (test kodf=199) 92.1 % 96.0-97.0 HCO3 ARTERIAL (BEAKER) (test pwxx=817) 27 mmol/L 21-29 BASE EXCESS ARTERIAL (BEAKER) (test gpij=434) 4.0 mmol/L -2.0-3.0 PATIENT TEMPERATURE (BEAKER) (test tpxt=3597) 36.7 C FIO2 (BEAKER) (test fvht=8575) 40.0 % POCT-GLUCOSE [id number] 00:10:00 Test Item Value Reference Range Comments POC-GLUCOSE METER (BEAKER) 124 mg/dL 70-110 TESTED AT [address] (test tadn=7915) [place] [id number] POCT-GLUCOSE [id number] 23:27:00 Test Item Value Reference Range Comments POC-GLUCOSE METER (BEAKER) 111 mg/dL 70-110 TESTED AT [address] (test iera=6888) [place] [id number] POCT-GLUCOSE [id number] 22:06:00 Test Item Value Reference Range Comments POC-GLUCOSE METER (BEAKER) 131 mg/dL 70-110 TESTED AT [address] (test elqm=1066) [place] [id number] POCT-GLUCOSE [id number] 21:05:00 Test Item Value Reference Range Comments POC-GLUCOSE METER (BEAKER) 145 mg/dL 70-110 TESTED AT [address] (test bxem=6614) [place] [id number] POCT-GLUCOSE [id number] 20:18:00 Test Item Value Reference Range Comments POC-GLUCOSE METER (BEAKER) 154 mg/dL 70-110 TESTED AT [address] (test txge=1921) [place] [id number] 19:55:00 Test Item Value Reference Range Comments PARTIAL THROMBOPLASTIN TIME (BEAKER) (test 50.2 seconds 22.5-36.0 dfbd=442) POCT-GLUCOSE [id number] 19:07:00 Test Item Value Reference Range Comments POC-GLUCOSE METER (BEAKER) 182 mg/dL 70-110 TESTED AT [address] (test lsdm=9293) [place] [id number] POCT-GLUCOSE [id number] 18:03:00 Test Item Value Reference Range Comments POC-GLUCOSE METER (BEAKER) 201 mg/dL 70-110 TESTED AT [address] (test ptlz=8838) [facility] [address] PUL PERF IMAGING, PARTIC, [id number] 17:23:00FINAL REPORT PROCEDURE: V/Q LUNG SCAN CPT CODE: 18635 INDICATION: Chest pain PA suspected high pretest [...] are suggestive of parenchymal lung disease.. Signed: Elom Carvalho MDReport Verified Date/Time: 08/30/2018 17:23:41 Reading Location: [address] Reading Room POCT-GLUCOSE [id number] 17:03:00 Test Item Value Reference Range Comments POC-GLUCOSE METER (BEAKER) 230 mg/dL 70-110 TESTED AT [address] (test mcut=4551) [facility] [address] POCT-GLUCOSE [id number] 16:13:00 Test Item Value Reference Range Comments POC-GLUCOSE METER (BEAKER) 255 mg/dL 70-110 TESTED AT [address] (test iuvm=3587) [place] [address] TROPONIN [id number] 16:01:00 Test Item Value Reference Range Comments TROPONIN I (BEAKER) (test aquo=693) 14.68 ng/mL 0.00-0.03 Troponin I (TnI) levels [...] neurological disease, and persistent tachyarrhythmia.CT, CHEST, WITHOUT [id number] 15 :10:00FINAL REPORT HISTORY: Acute resp illness, [...] MDReport Verified Date/Time: 08/30/2018 15:10:22 Reading Location: [facility] Imaging Reading Room - [place] [address] Electronically signed by: BRYON SAINZ M.D. on08/30/2018 03:10 PMPOCT-GLUCOSE [id number] 14:57:00 Test Item Value Reference Range Comments POC-GLUCOSE METER (BEAKER) 273 mg/dL 70-110 TESTED AT [facility] [address] [facility] (test cgpa=0586) [facility] [address] POCT-GLUCOSE [id number] 13:10:00 Test Item Value Reference Range Comments POC-GLUCOSE METER (BEAKER) 232 mg/dL 70-110 TESTED AT [address] (test wgik=8800) [facility] [address] RAD, ABDOMEN/KUB, 1 VIEW [id number] 12:44:00Reason for exam:->abdominal distensionFINAL REPORT Two frontal images abdomen and pelvis. NG tube loops in the proximal stomach. There is a paucity of visible small bowel gas but no grossly apparent bowel obstruction. No evidence of free intraperitoneal air. Degenerative spine changes are noted. No concerning calcification. Signed: Mark Parsons Verified Date/Time: 08/30/2018 12: 44:32 Reading Location: [facility] Radiology Reading Room [id number] 12:08:00 Test Item Value Reference Range Comments PARTIAL THROMBOPLASTIN TIME (BEAKER) (test 45.2 seconds 22.5-36.0 rntu=703) POCT-GLUCOSE [id number] 12:05:00 Test Item Value Reference Range Comments POC-GLUCOSE METER (BEAKER) 238 mg/dL 70-110 TESTED AT [address] (test uvdk=0928) [facility] [address] RAD, CHEST, 1 VIEW, NON [id number] 11:56:00Reason for exam:->ET tube manipulationShould this be [...] Date/Time: 08/30/2018 11: 56:52 Reading Location: [facility] Radiology Reading Room POCT- GLUCOSE [id number] 11:05:00 Test Item Value Reference Range Comments POC-GLUCOSE METER (BEAKER) 275 mg/dL 70-110 TESTED AT [address] (test dawj=7311) [facility] [address] LACTIC ACID, ARTERIAL, WHOLE [id number] 09:50:00 Test Item Value Reference Range Comments LACTATE BLOOD ARTERIAL (2) (BEAKER) (test 1.6 mmol/L 0.5-2.2 liuv=7576) Effective 03/02/2016: Units/Reference Range ChangeNew: 0.5-2.2 mmol/L Previous: 5 -20 mg/dLPOCT-GLUCOSE [id number] 09:44:00 Test Item Value Reference Range Comments POC-GLUCOSE METER (BEAKER) 297 mg/dL 70-110 TESTED AT [address] (test xymb=0156) [place] [address] TROPONIN [id number] 09:34:00 Test Item Value Reference Range Comments TROPONIN I (BEAKER) (test ehjr=765) 19.27 ng/mL 0.00-0.03 Troponin I (TnI) levels [...] acute neurological disease, and persistent tachyarrhythmia.OXYGEN SATURATION, [id number] 08 :54:00 Test Item Value Reference Range Comments O2 SATURATION (MEASURED) (BEAKER) (test afsl=4071) 74.7 % POCT-GLUCOSE [id number] 08:33:00 Test Item Value Reference Range Comments POC-GLUCOSE METER (BEAKER) 345 mg/dL 70-110 TESTED AT [address] (test aoeg=8206) [facility] [address] POCT-GLUCOSE [id number] 07:42:00 Test Item Value Reference Range Comments POC-GLUCOSE METER (BEAKER) 305 mg/dL 70-110 Notified MILLA CARPENTER/TESTED AT [facility] (test elob=8281) [address] [place] [address] POCT-GLUCOSE [id number] 07:42:00 Test Item Value Reference Range Comments POC-GLUCOSE METER (BEAKER) 309 mg/dL 70-110 TESTED AT [facility] [address] (test fmzn=5663) [facility] [address] URINALYSIS W/ REFLEX URINE [id number] 07:35:00 Test Item Value Reference Range Comments COLOR (BEAKER) (test wevx=090) Light Yellow CLARITY (BEAKER) (test qmgx=325) Clear SPECIFIC GRAVITY UA (BEAKER) (test iuwa=459) 1.017 1.001-1.035 PH UA (BEAKER) (test mmsr=989) 5.0 5.0-8.0 PROTEIN UA (BEAKER) (test uumh=565) Negative Negative GLUCOSE UA (BEAKER) (test nmsv=218) >1000 mg/dL Negative KETONES UA (BEAKER) (test wgec=196) 10 mg/dL Negative BILIRUBIN UA (BEAKER) (test znxp=511) Negative Negative BLOOD UA (BEAKER) (test qfsg=632) Negative Negative NITRITE UA (BEAKER) (test quph=172) Negative Negative LEUKOCYTE ESTERASE UA (BEAKER) (test oiah=274) Negative Negative UROBILINOGEN UA (BEAKER) (test isxl=592) 0.2 mg/dL 0.2-1.0 RBC UA (BEAKER) (test cdtj=493) 3 /HPF WBC UA (BEAKER) (test dqcy=432) 2 /HPF MUCUS (BEAKER) (test dkrl=8076) Rare AMORPHOUS CRYSTALS (BEAKER) (test tzby=2688) Rare SOURCE(BEAKER) (test fynz=8891) [id number] 05:48:00 Test Item Value Reference Range Comments PROCALCITONIN (BEAKER) (test upvc=9160) 0.26 ng/mL <0.05 SEPSIS RISK (ng/mL)Low: 0.05-0.50Intermediate: 0.51-2.00High: & gt;=2.01LACTIC ACID, ARTERIAL, WHOLE [id number] 04:44:00 Test Item Value Reference Range Comments LACTATE BLOOD ARTERIAL (2) 1.7 mmol/L 0.5-2.2 Specimen slightly hemolyzed (BEAKER) (test ehcg=0283) Effective 03/02/2016: Units/Reference Range ChangeNew: 0.5-2.2 mmol/L Previous: 5 -20 mg/dLBLOOD GAS, [id number] 04:42:00 Test Item Value Reference Range Comments PH ARTERIAL (BEAKER) (test tjmy=178) 7.40 7.35-7.45 PCO2 ARTERIAL (BEAKER) (test ocgu=652) 35 mmHg 35-45 PO2 ARTERIAL (BEAKER) (test arvm=226) 101 mmHg 80-90 O2 SATURATION ARTERIAL (BEAKER) (test cxaq=101) 97.7 % 96.0-97.0 HCO3 ARTERIAL (BEAKER) (test exql=353) 21 mmol/L 21-29 BASE EXCESS ARTERIAL (BEAKER) (test dkxe=213) -3.0 mmol/L -2.0-3.0 PATIENT TEMPERATURE (BEAKER) (test hoyw=8530) 36.9 C FIO2 (BEAKER) (test cwbt=8192) 50.0 % [id number] 04:40:00 Test Item Value Reference Range Comments POTASSIUM (BEAKER) (test zfov=326) 4.3 meq/L 3.5-5.1 [id number] 04:40:00 Test Item Value Reference Range Comments GLUCOSE RANDOM (BEAKER) (test vatt=180) 365 mg/dL 70-105 POCT-GLUCOSE [id number] 04:37:00 Test Item Value Reference Range Comments POC-GLUCOSE METER (BEAKER) 370 mg/dL 70-110 TESTED AT [facility] [address] [facility] (test vmwr=2996) [place] [address] [id number] 04:34:00 Test Item Value Reference Range Comments PARTIAL THROMBOPLASTIN TIME (BEAKER) (test 30.2 seconds 22.5-36.0 ftdg=790) Prior to initiating heparinPLATELET [id number] 04:15:00 Test Item Value Reference Range Comments PLATELET COUNT (BEAKER) (test doni=585) 284 K/CU MM 150-450 Baseline and daily starting prior to initiation of heparin infusionCB ( HEMOGRAM ONLY)2018-08-30 04:15:00 Test Item Value Reference Range Comments WHITE BLOOD CELL COUNT (BEAKER) (test mazz=759) 16.6 K/ L 3.5-10.5 RED BLOOD CELL COUNT (BEAKER) (test mvga=797) 4.25 M/ L 4.63-6.08 HEMOGLOBIN (BEAKER) (test ckjx=663) 13.1 GM/DL 13.7-17.5 HEMATOCRIT (BEAKER) (test ssfv=716) 37.6 % 40.1-51.0 MEAN CORPUSCULAR VOLUME (BEAKER) (test ayfu=455) 88.5 fL 79.0-92.2 MEAN CORPUSCULAR HEMOGLOBIN (BEAKER) (test 30.8 pg 25.7-32.2 jpqv=196) MEAN CORPUSCULAR HEMOGLOBIN CONC (BEAKER) (test 34.8 GM/DL 32.3-36.5 gtxs=585) RED CELL DISTRIBUTION WIDTH (BEAKER) (test 13.6 % 11.6-14.4 mags=256) PLATELET COUNT (BEAKER) (test ttxx=933) 284 K/CU MM 150-450 MEAN PLATELET VOLUME (BEAKER) (test fdot=416) 9.6 fL 9.4-12.4 NUCLEATED RED BLOOD CELLS (BEAKER) (test 0 /100 WBC 0-0 jifl=380) TSH/FREE T4 IF [id number] 03:00:00 Test Item Value Reference Range Comments THYROID STIMULATING HORMONE (BEAKER) (test 0.92 uIU/mL 0.35-4.94 cwwk=978) TROPONIN [id number] 02:51:00 Test Item Value Reference Range Comments TROPONIN I (BEAKER) (test oihl=586) 24.37 ng/mL 0.00-0.03 Troponin I (TnI) levels [...] Range Comments B-TYPE NATRIURETIC PEPTIDE (BEAKER) (test xdop=015) 63 pg/mL 0-100 [id number] 02:44:00 Test Item Value Reference Range Comments PARTIAL THROMBOPLASTIN TIME (BEAKER) (test 28.2 seconds 22.5-36.0 nhcf=453) Prior to initiating heparinCBC W/PLT COUNT & AUTO [id number] 02: 41:00 Test Item Value Reference Range Comments WHITE BLOOD CELL COUNT (BEAKER) (test jyuy=785) 13.4 K/ L 3.5-10.5 RED BLOOD CELL COUNT (BEAKER) (test zlhz=093) 4.05 M/ L 4.63-6.08 HEMOGLOBIN (BEAKER) (test nhnq=667) 12.6 GM/DL 13.7-17.5 HEMATOCRIT (BEAKER) (test uoml=484) 36.4 % 40.1-51.0 MEAN CORPUSCULAR VOLUME (BEAKER) (test zzjp=552) 89.9 fL 79.0-92.2 MEAN CORPUSCULAR HEMOGLOBIN (BEAKER) (test 31.1 pg 25.7-32.2 xhxk=149) MEAN CORPUSCULAR HEMOGLOBIN CONC (BEAKER) (test 34.6 GM/DL 32.3-36.5 eqqn=279) RED CELL DISTRIBUTION WIDTH (BEAKER) (test 13.7 % 11.6-14.4 rida=001) PLATELET COUNT (BEAKER) (test womi=791) 223 K/CU MM 150-450 MEAN PLATELET VOLUME (BEAKER) (test lhhp=763) 9.9 fL 9.4-12.4 NUCLEATED RED BLOOD CELLS (BEAKER) (test 0 /100 WBC 0-0 qntk=006) NEUTROPHILS RELATIVE PERCENT (BEAKER) (test 94 % wnel=895) LYMPHOCYTES RELATIVE PERCENT (BEAKER) (test 5 % akkj=696) MONOCYTES RELATIVE PERCENT (BEAKER) (test 1 % nniv=631) EOSINOPHILS RELATIVE PERCENT (BEAKER) (test 0 % ikmr=357) BASOPHILS RELATIVE PERCENT (BEAKER) (test 0 % jlfe=673) NEUTROPHILS ABSOLUTE COUNT (BEAKER) (test 12.52 K/ L 1.78-5.38 pyft=433) LYMPHOCYTES ABSOLUTE COUNT (BEAKER) (test 0.61 K/ L 1.32-3.57 fiiu=342) MONOCYTES ABSOLUTE COUNT (BEAKER) (test 0.12 K/ L 0.30-0.82 djus=330) EOSINOPHILS ABSOLUTE COUNT (BEAKER) (test 0.00 K/ L 0.04-0.54 dmvt=728) BASOPHILS ABSOLUTE COUNT (BEAKER) (test 0.01 K/ L 0.01-0.08 askj=534) IMMATURE GRANULOCYTES-RELATIVE PERCENT (BEAKER) 1 % 0-1 (test hbiq=3112) [id number] 02:39:00 Test Item Value Reference Range Comments LIPASE (BEAKER) (test tavi=513) 14 U/L 8-78 COMPREHENSIVE METABOLIC [id number] 02:39:00 Test Item Value Reference Range Comments TOTAL PROTEIN (BEAKER) 6.2 gm/dL 6.0-8.3 (test vufo=949) ALBUMIN (BEAKER) (test 3.5 g/dL 3.5-5.0 qjba=2486) ALKALINE PHOSPHATASE 31 U/L 40-150 (BEAKER) (test kjcr=810) BILIRUBIN TOTAL (BEAKER) 0.5 mg/dL 0.2-1.2 (test rihs=573) SODIUM (BEAKER) (test 138 meq/L 136-145 liqn=116) POTASSIUM (BEAKER) (test 4.3 meq/L 3.5-5.1 ikfd=535) CHLORIDE (BEAKER) (test 104 meq/L 98-107 flbl=808) CO2 (BEAKER) (test 22 meq/L 22-29 zgjc=174) BLOOD UREA NITROGEN 27 mg/dL 7-21 (BEAKER) (test zzod=954) CREATININE (BEAKER) (test 1.49 mg/dL 0.57-1.25 shjv=455) GLUCOSE RANDOM (BEAKER) 339 mg/dL 70-105 (test ddnp=430) CALCIUM (BEAKER) (test 8.8 mg/dL 8.4-10.2 eanx=265) AST (SGOT) (BEAKER) (test 91 U/L 5-34 cbiu=066) ALT (SGPT) (BEAKER) (test 21 U/L 6-55 nzvw=353) EGFR (BEAKER) (test 47 mL/min/1.73 sq m ESTIMATED GFR IS NOT soum=6209) ACCURATE CREATININE CLEARANCE IN PREDICTING GLOMERULAR FILTRATION RATE. ESTIMATED GFR IS NOT APPLICABLE FOR DIALYSIS PATIENTS. [id number] 02:39:00 Test Item Value Reference Range Comments MAGNESIUM (BEAKER) (test jtoz=159) 1.9 mg/dL 1.6-2.6 LACTIC ACID, VENOUS, WHOLE [id number] 02:34:00 Test Item Value Reference Range Comments LACTATE BLOOD VENOUS (2) 2.8 mmol/L 0.5-2.2 Specimen slightly hemolyzed (BEAKER) (test tlxl=1458) Effective 03/02/2016: Units/Reference Range ChangeNew: 0.5-2.2 mmol/L Previous: 5 -20 mg/dLPLATELET [id number] 02:14:00 Test Item Value Reference Range Comments PLATELET COUNT (BEAKER) (test lziu=902) 223 K/CU MM 150-450 RAD, CHEST, 1 VIEW, NON [id number] 01:50:00Reason for exam:->lines placement Should this be [...] Verified Date/Time : 08/30/2018 01:50:34 Reading Location: [address] Transitional Reading Room
[2019-12-11] MEDS ORDERED: NA CHLORIDE 0.9% 1,000 ML ONE (02:24)
[2019-12-11 02:40] LABS: Absolute Lymphocytes (CBC) 1.2 K/uL (0.7-4.9); Basophils % 0.9 % (0-1.3); Hematocrit 47.4 % (39.6-49.0); Lymphocytes % 6.8 % (15.3-44.8); MPV 8.4 fL (7.6-11.3); RBC Red Blood Cell Count 5.15 M/uL (4.33-5.43)
[2019-12-11 02:51] LABS: Bilirubin Direct 0.2 mg/dL (0-0.2); Bilirubin Total 0.8 mg/dL (0.2-1.0); Potassium 4.6 mmol/L (3.5-5.1); Protein, Total 8.6 g/dL (6.4-8.2)
[2019-12-11] MEDS ORDERED: MORPHINE 4 MG/ML SYR ONE ×2 (03:07→03:55)
[2019-12-11] MEDS ORDERED: ONDANSETRON 4 MG/2 ML VIAL ONE (03:07)
[2019-12-11] MEDS ORDERED: DIPHENOX/ATROP SULF 1 TAB PO ONE (03:40)
[2019-12-11] MEDS ORDERED: DICYCLOMINE HCL 20 MG/2 ML AMP IM ONE (03:56)
[2019-12-11 04:02] LABS: Blood Morphology Comment NOT SEEN (NOT SEEN); Platelet Estimate ADEQ
--- NOTE | 2019-12-11 05:37 | EDPHYS ---
Physician Documentation [facility] Name: Asim Burnett Age: 64 yrs Sex: Male : 1955 Arrival Date: 12/11/2019 Time: 01:28 Bed 13 Private MD: ED Physician Efe Cox HPI: 12/11 04:27 This 64 yrs old Male presents to ER via Wheelchair with complaints of tw4 Weakness, Can't Keep Anything Down. 04:27 The patient presents to the emergency department with diarrhea. Onset: The tw4 symptoms/episode began/occurred 1 week(s) ago. Possible causes: unknown. The symptoms are aggravated by nothing. The symptoms are alleviated by nothing. The patient presents to the emergency department with weakness of the entire body, generalized weakness. Historical: - Allergies: 02:00 Ibuprofen; jb4 - Home Meds: 02:00 Abilify 10 mg Oral tab once daily [Active]; Albuterol Inhl [Active]; aspirin 81 mg Oral jb4 chew once daily [Active]; Apidra 100 unit/mL subcutaneous soln after meals [Active]; atorvastatin 20 mg Oral tab once daily [Active]; Breo Ellipta 100-25 mcg/dose inhalation dsdv 1 puff once daily [Active]; clonazepam 1 mg Oral tab 1 tab 3 times per day [Active]; bumetanide 2 mg Oral tab 1 tab 2 times per day [Active]; clopidogrel 75 mg Oral tab 1 tab once daily [Active]; furosemide 20 mg Oral tab 1 tab once daily [Active]; gabapentin 600 mg Oral tab 3 times per day [Active]; Humalog 100 unit/mL Sub-Q soln 24 unit three times a day [Active]; Insulin Glargine Sub-Q 50 unit nightly [Active]; Jardiance 25 mg Oral tab 1 tab once daily [Active]; Lipitor 80 mg Oral tab 1 tab once daily [Active]; metformin 1,000 mg Oral tab 1 tab 2 times per day [Active]; lisinopril 5 mg Oral tab 1 tab once daily [Active]; metoprolol tartrate 50 mg Oral tab 1 tab 2 times per day [Active]; omeprazole 40 mg Oral cpDR 1 cap 2 times per day [Active]; oxycodone-acetaminophen 10-325 mg Oral tab 1 tab QID [Active]; spironolactone 25 mg Oral tab 1 tab once daily [Active]; trazodone 150 mg Oral tab nightly [Active]; ProAir HFA 90 mcg/actuation inhalation HFAA 2 puffs every 6 hours [Active]; - PMHx: 02:00 ADD/ADHD; cardiac stent; COPD; Depression; Anxiety; High Cholesterol; Hypertension; jb4 Myocardial infarction; Diabetes - IDDM; - PSHx: 02:00 Heart stents; CABG; jb4 - Immunization history:: Adult Immunizations up to date. - Coronavirus screen:: The patient has NOT traveled to [place] in the past 14 days. Proceed with normal triage process as indicated. The patient has NOT had contact with known/suspected case of Coronavirus? Proceed with normal triage procedures. - Social history:: Smoking status: Patient denies any tobacco usage or history of. Patient/guardian denies using alcohol, street drugs. - Ebola Screening: : No symptoms or risks identified at this time. ROS: 04:28 Abdomen/GI: Positive for abdominal pain, diarrhea, Negative for nausea and vomiting, tw4 nausea, vomiting, constipation, abdominal distension, anorexia, dysphagia, hematemesis, black/tarry stool, rectal pain, rectal bleeding. Exam: 04:28 Constitutional: This is a well developed, well nourished patient who is awake, alert, tw4 and in no acute distress. Head/Face: Normocephalic, atraumatic. Chest/axilla: Normal chest wall appearance and motion. Nontender with no deformity. No lesions are appreciated. Cardiovascular: Regular rate and rhythm with a normal S1 and S2. No gallops, murmurs, or rubs. Normal PMI, no JVD. No pulse deficits. Respiratory: Lungs have equal breath sounds bilaterally, clear to auscultation and percussion. No rales, rhonchi or wheezes noted. No increased work of breathing, no retractions or nasal flaring. Back: No spinal tenderness. No costovertebral tenderness. Full range of motion. MS/ Extremity: Pulses equal, no cyanosis. Neurovascular intact. Full, normal range of motion. 04:28 Skin: Warm, dry with normal turgor. Normal color with no rashes, no lesions, and no evidence of cellulitis. Neuro: Awake and alert, GCS 15, oriented to person, place, time, and situation. Cranial nerves II-XII grossly intact. Motor strength 5/5 in all extremities. Sensory grossly intact. Cerebellar exam normal. Normal gait. 04:28 Abdomen/GI: Inspection: abdomen appears normal, Bowel sounds: diminished, Palpation: mild abdominal tenderness, in all quadrants. 04:28 Neuro: Orientation: is normal, Mentation: is normal. Vital Signs: 02:00 BP 134 / 87; Pulse 106; Resp 16; Temp 98.2(O); Pulse Ox 98% on R/A; Weight 96.62 kg jb4 (R); Height 5 ft. 7 in. (170.18 cm) (R); Pain 8/10; 03:30 BP 137 / 69; Pulse 108; Resp 16; Pulse Ox 98% on R/A; jb4 04:49 BP 135 / 95; Pulse 96; Resp 16; Pulse Ox 94% on R/A; jb4 05:43 BP 146 / 95; Pulse 107; Resp 20; Pulse Ox 95% on R/A; jb4 02:00 Body Mass Index 33.36 (96.62 kg, 170.18 cm) [facility] MDM: 01:41 Patient medically screened. [facility] 12/11 02:10 Order name: Basic Metabolic Panel [facility] 12/11 02:10 Order name: CBC with Diff [facility] 12/11 02:10 Order name: Creatinine for Radiology [facility] 12/11 02:10 Order name: Hepatic Function [facility] 12/11 02:10 Order name: Lipase [facility] 12/11 02:50 Order name: Creatinine (Radiology Only); Complete Time: 03:35 EDMS 12/11 03:36 Interpretation: Within normal limits: CRE 1.06. 4 12/11 02:51 Order name: CBC with Automated Diff [facility] 12/11 03:36 Interpretation: Normal except: WBC 17.9; RBC 5.15; HGB 16.1; HCT 47.4; MN% 1.9; LYM% tw4 6.8; EMILE% 89.9; NEUT A 16.1. 12/11 02:56 Order name: Basic Metabolic Panel; Complete Time: 03:35 EDMS 12/11 03:35 Interpretation: Normal except: BUN 21; CO2 18; NA 135; GLUC 349; GFR 69. [facility] 12/11 02:56 Order name: Liver (Hepatic) Function; Complete Time: 03:35 EDMS 02 03:36 Interpretation: A/G 0.9; GLOB 4.6; ALB 4.0; AST 14. tw4 02 02:56 Order name: Lipase; Complete Time: 03:35 EDMS 0212 03:36 Interpretation: Within normal limits: LIP 113. tw4 02 03:44 Order name: CT Abd/Pelvis - IV Contrast Only 4 12/11 04:02 Order name: Manual Differential EDMS 12/11 02:10 Order name: IV Saline Lock; Complete Time: 02:21 4 12/11 02:10 Order name: Labs collected and sent; Complete Time: 02:21 [facility] Administered Medications: 02:24 Drug: NS 0.9% 1000 ml Route: IV; Rate: 1 bolus; Site: right wrist; 4 03:00 Follow up: Response: No adverse reaction; IV Status: Completed infusion; IV Intake: jb4 1000ml 03:10 Drug: Zofran 4 mg Route: IVP; Site: right antecubital; 4 03:40 Follow up: Response: No adverse reaction 4 03:12 Drug: morphine 4 mg {Note: Rass score 0.} Route: IVP; Site: right wrist; jb4 03:40 Follow up: Response: No adverse reaction; Pain is unchanged, physician notified; RASS: [facility] Alert and Calm (0) 03:44 Drug: LoMOTIL 2 tabs Route: PO; jb4 06:33 Follow up: Response: No adverse reaction 4 04:03 Drug: morphine 4 mg {Note: Rass score 0.} Route: IVP; Site: right wrist; jb4 04:30 Follow up: Response: No adverse reaction; Pain is decreased; RASS: Alert and Calm (0) 4 04:04 Drug: Bentyl 20 mg Route: IM; Site: right gluteus; jb4 04:30 Follow up: Response: No adverse reaction; Pain is decreased [facility] Disposition: 12/11/19 05:34 Discharged to Home. Impression: Other viral enteritis, Dehydration, Diarrhea, unspecified, Volume depletion. - Condition is Stable. - Discharge Instructions: Food Choices to Help Relieve Diarrhea, Adult, Dehydration, Elderly, Diarrhea, Adult, Diarrhea, Adult, [id number]. - Prescriptions for Zofran 4 mg Oral Tablet - take 1 tablet by ORAL route every 12 hours As needed; 6 tablet. Lomotil 2.5- 0.025 mg Oral Tablet - take 2 tablet by ORAL route once daily As needed; 20 tablet. - Medication Reconciliation Form, Thank You Letter, Antibiotic Education, Prescription Opioid Use form. - Follow up: Private Physician; When: Upon discharge from the Emergency Department; Reason: If symptoms return, Recheck today's complaints, Continuance of care, Re-evaluation by your physician. Follow up: Jose Guadalupe Hartmann MD; When: Upon discharge from the Emergency Department; Reason: If symptoms return, Recheck today's complaints, Continuance of care, Re-evaluation by your physician. Follow up: Eladio Stahl MD; When: Upon discharge from the Emergency Department; Reason: If symptoms return, Recheck today's complaints, Continuance of care, Re-evaluation by your physician. Follow up: Shimon Mckeon MD; When: Upon discharge from the Emergency Department; Reason: If symptoms return, Recheck today's complaints, Continuance of care, Re-evaluation by your physician. Follow up: Shannan Singh MD; When: Upon discharge from the Emergency Department; Reason: If symptoms return, Recheck today's complaints, Continuance of care, Re-evaluation by your physician. Follow up: Héctor Garcia MD; When: Upon discharge from the Emergency Department; Reason: If symptoms return, Recheck today's complaints, Continuance of care, Re-evaluation by your physician. Follow up: Devendra Gaffney MD; When: Upon discharge from the Emergency Department; Reason: If symptoms return, Recheck today's complaints, Continuance of care, Re-evaluation by your physician. Follow up: Oli Salinas MD; When: Upon discharge from the Emergency Department; Reason: If symptoms return, Recheck today's complaints, Continuance of care, Re-evaluation by your physician. - Problem is new. - Symptoms have improved. Signatures: Dispatcher [employer] EDMS Placido Payne RN RN jb4 Efe Cox MD MD tw4 Corrections: (The following items were deleted from the chart) 06:21 05:34 12/11/2019 05:34 Discharged to Home. Impression: Other viral enteritis; tw4 Dehydration; Diarrhea, unspecified; Volume depletion. Condition is Stable. Forms are Medication Reconciliation Form, Thank You Letter, Antibiotic Education, Prescription Opioid Use. Follow up: Private Physician; When: Upon discharge from the Emergency Department; Reason: If symptoms return, Recheck today's complaints, Continuance of care, Re-evaluation by your physician. Problem is new. Symptoms have improved. tw4 06:34 06:21 12/11/2019 05:34 Discharged to Home. Impression: Other viral enteritis; jb4 Dehydration; Diarrhea, unspecified; Volume depletion. Condition is Stable. Discharge Instructions: Food Choices to Help Relieve Diarrhea, Adult, Dehydration, Elderly, Diarrhea, Adult, Diarrhea, Adult, [id number]. Prescriptions for Zofran 4 mg Oral Tablet - take 1 tablet by ORAL route every 12 hours As needed; 6 tablet, Lomotil 2.5-0.025 mg Oral Tablet - take 2 tablet by ORAL route once daily As needed; 20 tablet. and Forms are Medication Reconciliation Form, Thank You Letter, Antibiotic Education, Prescription Opioid Use. Follow up: Private Physician; When: Upon discharge from the Emergency Department; Reason: If symptoms return, Recheck today's complaints, Continuance of care, Re-evaluation by your physician. Follow up: Jose Guadalupe Hartmann; When: Upon discharge from the Emergency Department; Reason: If symptoms return, Recheck today's complaints, Continuance of care, Re-evaluation by your physician. Follow up: Eladio Stahl; When: Upon discharge from the Emergency Department; Reason: If symptoms return, Recheck today's complaints, Continuance of care, Re-evaluation by your physician. Follow up: Shimon Mckeon; When: Upon discharge from the Emergency Department; Reason: If symptoms return, Recheck today's complaints, Continuance of care, Re-evaluation by your physician. Follow up: Shannan Singh; When: Upon discharge from the Emergency Department; Reason: If symptoms return, Recheck today's complaints, Continuance of care, Re-evaluation by your physician. Follow up: Héctor Garcia; When: Upon discharge from the Emergency Department; Reason: If symptoms return, Recheck today's complaints, Continuance of care, Re-evaluation by your physician. Follow up: Devendra Gaffney; When: Upon discharge from the Emergency Department; Reason: If symptoms return, Recheck today's complaints, Continuance of care, Re-evaluation by your physician. Follow up: Oli Salinas; When: Upon discharge from the Emergency Department; Reason: If symptoms return, Recheck today's complaints, Continuance of care, Re-evaluation by your physician. Problem is new. Symptoms have improved. tw4
--- NOTE | 2019-12-11 05:37 | ER ---
Nurse's Notes [facility] Name: Asim Burnett Age: 64 yrs Sex: Male : 1955 Arrival Date: 12/11/2019 Time: 01:28 Bed 13 Private MD: Diagnosis: Other viral enteritis;Dehydration;Diarrhea, unspecified;Volume depletion Presentation: 12/11 01:48 Presenting complaint: Child states: He has been having diarrhea for the past week, it jb4 began getting worse over the past 2 days. Now he feels weeks. Transition of care: patient was not received from another setting of care. Onset of symptoms was December 04, 2019. Risk Assessment: Do you want to hurt yourself or someone else? Patient reports no desire to harm self or others. Initial Sepsis Screen: Does the patient meet any 2 criteria? HR > 90 bpm. Yes Does the patient have a suspected source of infection? Yes: Acute abdominal pain. Care prior to arrival: None. 01:48 Method Of Arrival: Wheelchair jb4 01:48 Acuity: ORACIO 3 jb4 Historical: - Allergies: 02:00 Ibuprofen; jb4 - Home Meds: 02:00 Abilify 10 mg Oral tab once daily [Active]; Albuterol Inhl [Active]; aspirin 81 mg Oral jb4 chew once daily [Active]; Apidra 100 unit/mL subcutaneous soln after meals [Active]; atorvastatin 20 mg Oral tab once daily [Active]; Breo Ellipta 100-25 mcg/dose inhalation dsdv 1 puff once daily [Active]; clonazepam 1 mg Oral tab 1 tab 3 times per day [Active]; bumetanide 2 mg Oral tab 1 tab 2 times per day [Active]; clopidogrel 75 mg Oral tab 1 tab once daily [Active]; furosemide 20 mg Oral tab 1 tab once daily [Active]; gabapentin 600 mg Oral tab 3 times per day [Active]; Humalog 100 unit/mL Sub-Q soln 24 unit three times a day [Active]; Insulin Glargine Sub-Q 50 unit nightly [Active]; Jardiance 25 mg Oral tab 1 tab once daily [Active]; Lipitor 80 mg Oral tab 1 tab once daily [Active]; metformin 1,000 mg Oral tab 1 tab 2 times per day [Active]; lisinopril 5 mg Oral tab 1 tab once daily [Active]; metoprolol tartrate 50 mg Oral tab 1 tab 2 times per day [Active]; omeprazole 40 mg Oral cpDR 1 cap 2 times per day [Active]; oxycodone-acetaminophen 10-325 mg Oral tab 1 tab QID [Active]; spironolactone 25 mg Oral tab 1 tab once daily [Active]; trazodone 150 mg Oral tab nightly [Active]; ProAir HFA 90 mcg/actuation inhalation HFAA 2 puffs every 6 hours [Active]; - PMHx: 02:00 ADD/ADHD; cardiac stent; COPD; Depression; Anxiety; High Cholesterol; Hypertension; jb4 Myocardial infarction; Diabetes - IDDM; - PSHx: 02:00 Heart stents; CABG; jb4 - Immunization history:: Adult Immunizations up to date. - Coronavirus screen:: The patient has NOT traveled to [place] in the past 14 days. Proceed with normal triage process as indicated. The patient has NOT had contact with known/suspected case of Coronavirus? Proceed with normal triage procedures. - Social history:: Smoking status: Patient denies any tobacco usage or history of. Patient/guardian denies using alcohol, street drugs. - Ebola Screening: : No symptoms or risks identified at this time. Screenin:15 Abuse screen: Denies threats or abuse. Nutritional screening: No deficits noted. jb4 Tuberculosis screening: No symptoms or risk factors identified. Fall Risk Fall in past 12 months (25 points). IV access (20 points). Gait- Weak (10 pts.). Total Hodges Fall Scale indicates High Risk Score (45 or more points). Fall prevention measures have been instituted. Side Rails Up X 2 Placed Close to Nursing Station Frequent Obs/Assessments Occuring Family Present and informed to notify staff if the need to leave the bedside As available patient and family educated on Fall Prevention Program and Strategies. Assessment: 02:15 General: Appears in no apparent distress. uncomfortable, Behavior is calm, cooperative, jb4 appropriate for age. Pain: Complains of pain in abdomen Pain does not radiate. Pain currently is 8 out of 10 on a pain scale. Neuro: Level of Consciousness is awake, alert, obeys commands, Oriented to person, place, time, situation. Cardiovascular: Patient's skin is warm and dry. Respiratory: Airway is patent Respiratory effort is even, unlabored, Respiratory pattern is regular, symmetrical, Breath sounds are clear bilaterally. GI: Abdomen is non-distended, obese, Bowel sounds present X 4 quads. Abd is soft X 4 quads Abdomen is tender to palpation X 4 quads. : No signs and/or symptoms were reported regarding the genitourinary system. EENT: No signs and/or symptoms were reported regarding the EENT system. Derm: Skin is intact, Skin is pink, warm \T\ dry. Musculoskeletal: Circulation, motion, and sensation intact. Range of motion: intact in all extremities. 03:46 Reassessment: Patient appears in no apparent distress at this time. Patient and/or jb4 family updated on plan of care and expected duration. Pain level reassessed. Patient is alert, oriented x 3, equal unlabored respirations, skin warm/dry/pink. PT reports still having abdominal pain of 7/10. Provider notified, see [facility] for orders. 04:49 Reassessment: Patient appears in no apparent distress at this time. Patient and/or jb4 family updated on plan of care and expected duration. Pain level reassessed. Patient is alert, oriented x 3, equal unlabored respirations, skin warm/dry/pink. Patient states feeling better. 05:43 Reassessment: Patient appears in no apparent distress at this time. Patient and/or jb4 family updated on plan of care and expected duration. Pain level reassessed. Patient is alert, oriented x 3, equal unlabored respirations, skin warm/dry/pink. 06:31 Reassessment: Patient appears in no apparent distress at this time. Patient and/or jb4 family updated on plan of care and expected duration. Pain level reassessed. Patient is alert, oriented x 3, equal unlabored respirations, skin warm/dry/pink. PT and verbalized understanding of d/c and follow up instructions. Vital Signs: 02:00 BP 134 / 87; Pulse 106; Resp 16; Temp 98.2(O); Pulse Ox 98% on R/A; Weight 96.62 kg jb4 (R); Height 5 ft. 7 in. (170.18 cm) (R); Pain 8/10; 03:30 BP 137 / 69; Pulse 108; Resp 16; Pulse Ox 98% on R/A; jb4 04:49 BP 135 / 95; Pulse 96; Resp 16; Pulse Ox 94% on R/A; jb4 05:43 BP 146 / 95; Pulse 107; Resp 20; Pulse Ox 95% on R/A; jb4 02:00 Body Mass Index 33.36 (96.62 kg, 170.18 cm) jb4 ED Course: 01:28 Patient arrived in ED. ds1 01:41 Efe Cox MD is Attending Physician. tw4 01:47 Placiod Payne, RN is Primary Nurse. jb4 01:49 Triage completed. jb4 02:00 Arm band placed on right wrist. jb4 02:15 Patient has correct armband on for positive identification. Bed in low position. Call jb4 light in reach. Side rails up X 1. Pulse ox on. NIBP on. 02:15 Initial lab(s) drawn, by me, sent to lab. Inserted saline lock: 18 gauge in right jb4 wrist, using aseptic technique. Blood collected. 04:42 CT completed. Pt tolerated procedure poorly. Patient moved to CT via stretcher. Patient eh moved back from CT. 06:21 Jose Guadalupe Hartmann MD is Referral Physician. tw4 06:21 Eladio Stahl MD is Referral Physician. tw4 06:21 Shimon Mckeon MD is Referral Physician. tw4 06:21 Shannan Singh MD is Referral Physician. tw4 06:21 Héctor Garcia MD is Referral Physician. tw4 06:21 Devendra Gaffney MD is Referral Physician. tw4 06:21 Oli Salinas MD is Referral Physician. tw4 06:30 No provider procedures requiring assistance completed. IV discontinued, intact, jb4 bleeding controlled, No redness/swelling at site. Pressure dressing applied. Administered Medications: 02:24 Drug: NS 0.9% 1000 ml Route: IV; Rate: 1 bolus; Site: right wrist; jb4 03:00 Follow up: Response: No adverse reaction; IV Status: Completed infusion; IV Intake: jb4 1000ml 03:10 Drug: Zofran 4 mg Route: IVP; Site: right antecubital; jb4 03:40 Follow up: Response: No adverse reaction jb4 03:12 Drug: morphine 4 mg {Note: Rass score 0.} Route: IVP; Site: right wrist; jb4 03:40 Follow up: Response: No adverse reaction; Pain is unchanged, physician notified; RASS: jb4 Alert and Calm (0) 03:44 Drug: LoMOTIL 2 tabs Route: PO; jb4 06:33 Follow up: Response: No adverse reaction jb4 04:03 Drug: morphine 4 mg {Note: Rass score 0.} Route: IVP; Site: right wrist; jb4 04:30 Follow up: Response: No adverse reaction; Pain is decreased; RASS: Alert and Calm (0) jb4 04:04 Drug: Bentyl 20 mg Route: IM; Site: right gluteus; jb4 04:30 Follow up: Response: No adverse reaction; Pain is decreased jb4 Intake: 03:00 IV: 1000ml; Total: 1000ml. jb4 Outcome: 05:34 Discharge ordered by . tw4 06:30 Discharged to home via wheelchair, with family. jb4 06:30 Condition: stable 06:30 Discharge instructions given to patient, family, Instructed on discharge instructions, follow up and referral plans. medication usage, Demonstrated understanding of instructions, follow-up care, medications, Prescriptions given X 2. 06:34 Patient left the ED. jb4 Signatures: Boni Lucero Demi ds1 Placido Payne, MILLA RN jb4 Efe Cox MD MD tw4
--- NOTE | 2019-12-11 09:49 | RAD REPORT ---
EXAM DESCRIPTION: CT - Abdomen Pelvis W Contrast - 12/11/2019 5:17 am CLINICAL HISTORY: The patient is 64 years old and is Male; ABD PAIN TECHNIQUE: Axial computed tomography images of the abdomen and pelvis with intravenous contrast. S agittal and coronal reformatted images were created and reviewed. This CT exam was performed using one or more of the following dose reduction techniques: automated exposure control, adjustment of t he mA and/or kV according to patient size, and/or use of iterative reconstruction technique. COMPARISON: CT of the chest, abdomen, pelvis November 27, 2019. FINDINGS: LUNG BASES: Unremarkable. No mass. No consolidation. ABDOMEN: LIVER: There is a diffuse decrease in hepatic parenchymal density, consistent with fatty infiltr ation. GALLBLADDER AND BILE DUCTS: Surgical clips are present in the right upper quadrant, consistent w ith previous cholecystectomy. PANCREAS: The pancreas is atrophic. SPLEEN: Unremarkable. ADRENALS: Unremarkable. No mass. KIDNEYS AND URETERS: An extrarenal pelvis on the right is present. The kidneys enhance symmetric ally. No obstructing calculus is seen. STOMACH AND BOWEL: The stomach is moderately fluid-filled. The small bowel is normal in caliber. Minimal stool is present throughout colon. No evidence of bowel obstruction. No significant bowel wa ll thickening. Colonic diverticulosis is noted, without associated inflammatory changes to suggest di verticulitis. PELVIS: APPENDIX: The appendix is normal in caliber without surrounding inflammation. BLADDER: Unremarkable. No mass. REPRODUCTIVE: Unremarkable as visualized. ABDOMEN and PELVIS: INTRAPERITONEAL SPACE: Unremarkable. No free air. No significant fluid collection. BONES/JOINTS: Evidence of healed right-sided rib fractures is noted. Multilevel degenerative bridger nge of the spine is present. SOFT TISSUES: The soft tissues are normal. VASCULATURE: Atherosclerosis of the vasculature is present. The vessels are normal in caliber. No abdominal aortic aneurysm. LYMPH NODES: Unremarkable. No enlarged lymph nodes. IMPRESSION: Colonic diverticulosis without evidence of diverticulitis. Electronically signed by: Vira Edward MD 12/11/2019 5:07 AM KETTLE OPERATOR Due to temporary technical issues with the PACS/Fluency reporting system, reports are being signed by the in house radiologist as a courtesy to ensure prompt reporting. The interpreting radiologist is f ully responsible for the content of the report.
[2019-12-12 17:16] VITALS: TEMP 98.2
[2019-12-12 17:20] VITALS: BP 146/95; O2SAT 95
== END 2019-12-11 06:34 | disposition home or self-care (01) ==
LOC: ER 01:26
DX: E86.0 Dehydration (principal); A08.39 Other viral enteritis; E86.9 Volume depletion, unspecified; R19.7 Diarrhea, unspecified; I10 Essential (primary) hypertension; E78.00 Pure hypercholesterolemia, unspecified; E11.9 Type 2 diabetes mellitus without complications; F34.1 Dysthymic disorder; Z79.82 Long term (current) use of aspirin; Z79.4 Long term (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 of insulin; Z88.6 Allergy status to analgesic agent; Z95.1 Presence of aortocoronary bypass graft; Z95.9 Presence of cardiac and vascular implant and graft, unspecified
CPT/HCPCS: 96361; 85025; 80048; 36415; 80076; 83690; 74177; 96375; 96372; 96374; 99284; Q9967; J0500; J7030; J2405

== ENCOUNTER 2020-04-13 14:44 | Inpatient (IN) | payer MEDICARE, SELFPAY ==
[2020-04-13 15:23] LABS: Absolute Lymphocytes (CBC) 1.4 K/uL (0.7-4.9); Basophils % 0.5 % (0-1.3); Hematocrit 42.7 % (39.6-49.0); Lymphocytes % 17.7 % (15.3-44.8); MPV 8.4 fL (7.6-11.3); RBC Red Blood Cell Count 4.83 M/uL (4.33-5.43)
[2020-04-13 15:25] LABS: Protime INR 1.08
[2020-04-13] MEDS ORDERED: LEVALBUTEROL 0.63 MG/3 ML NEB ONE (15:43)
[2020-04-13 15:44] LABS: ALT/SGPT 21 U/L (12-78); AST/SGOT 20 U/L (15-37); Albumin 3.3 g/dL (3.4-5.0); Alkaline Phosphatase 63 U/L (45-117); BUN Blood Urea Nitrogen 18 mg/dL (7-18); Bicarbonate 24 mmol/L (21-32); Bilirubin Direct < 0.1 mg/dL (0-0.2); Bilirubin Total 0.3 mg/dL (0.2-1.0); Glucose Level 389 mg/dL (74-106); Sodium Level 136 mmol/L (136-145)
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
--- NOTE | 2020-04-13 16:16 | EDPHYS ---
Physician Documentation [facility] Name: Asim Burnett Age: 64 yrs Sex: Male : 1955 Arrival Date: 04/13/2020 Time: 14:47 Bed 3 Private MD: ED Physician Xu Lowry HPI: 04/13 14:49 This 64 yrs old Male presents to ER via Unassigned with complaints of Overdose.rn 14:49 The patient presents to the emergency department after a known overdose, that was rn intentional. Associated signs and symptoms: Pertinent negatives: decreased level of consciousness, loss of consciousness, shortness of breath, visual hallucinations. Severity of symptoms: At their worst the symptoms were mild in the emergency department the symptoms are unchanged. It is unknown whether or not the patient has had similar symptoms in the past. 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 Denies previous suicide attempts or attempts to harm himself. states feels "fine". Denies feeling sleepy. Denies coingestion. Did not count the pills. . Historical: - Allergies: 14:53 Ibuprofen; hb - PMHx: 14:53 Anxiety; COPD; Depression; cardiac stent; ADD/ADHD; Diabetes - IDDM; Myocardial hb infarction; Hypertension; High Cholesterol; - PSHx: 14:53 Heart stents; CABG; hb - Immunization history:: Adult Immunizations up to date. - Social history:: Smoking status: Patient denies any tobacco usage or history of. - Family history:: not pertinent. - Hospitalizations: : No recent hospitalization is reported. ROS: 14:49 Constitutional: Negative for fever, chills, and weight loss, Eyes: Negative for injury, rn pain, redness, and discharge, Neck: Negative for injury, pain, and swelling, Cardiovascular: Negative for chest pain, palpitations, and edema, Respiratory: Negative for shortness of breath, cough, wheezing, and pleuritic chest pain, Abdomen/GI: Negative for abdominal pain, nausea, vomiting, diarrhea, and constipation, MS/Extremity: Negative for injury and deformity, Skin: Negative for injury, rash, and discoloration, Neuro: Negative for headache, weakness, numbness, tingling, and seizure, Psych: Negative for suicide ideation, homicidal ideation, and hallucinations. Exam: 14:49 Constitutional: This is a well developed, well nourished patient who is awake, alert, rn and in no acute distress. Head/Face: Normocephalic, atraumatic. Eyes: Pupils equal round and reactive to light, extra-ocular motions intact. Lids and lashes normal. Conjunctiva and sclera are non-icteric and not injected. Cornea within normal limits. Periorbital areas with no swelling, redness, or edema. Cardiovascular: Regular rate and rhythm. No pulse deficits. Respiratory: Mild tachypnea, diminished bases Abdomen/GI: soft, non-tender Skin: Warm, dry MS/ Extremity: Pulses equal, no cyanosis. Neuro: Awake and alert, GCS 15, oriented to person, place, time, and situation. Cranial nerves II-XII grossly intact. Motor strength 5/5 in all extremities. Sensory grossly intact. 15:11 ECG was reviewed by the Attending Physician. rn Vital Signs: 14:48 BP 120 / 75; Pulse 73; Resp 32; Temp 97.2; Pulse Ox 97% on R/A; Weight 110 kg; Pain hb 0/10; 15:00 BP 116 / 82; Pulse 72; Resp 35; Pulse Ox 97% on R/A; vc 15:15 BP 110 / 75; Pulse 72; Resp 32; Pulse Ox 95% on R/A; vc 15:15 Pulse Ox 83% on R/A; hb 15:27 Pulse Ox 95% on 2 lpm NC; hb 15:33 BP 106 / 76; Pulse 73; Resp 30; Pulse Ox 94% on 2 lpm NC; vc 15:45 BP 94 / 77; Pulse 71; Resp 28; Pulse Ox 99% on Nebulizer Mask; vc 16:00 BP 103 / 75; Pulse 72; Resp 26; Pulse Ox 100% on Nebulizer Mask; vc 16:15 BP 102 / 73; Pulse 74; Resp 31; Pulse Ox 98% on 2 lpm NC; vc 16:30 BP 104 / 74; Pulse 71; Resp 32; Pulse Ox 92% on 2 lpm NC; vc 16:45 BP 100 / 76; Pulse 73; Resp 32; Pulse Ox 99% on 2 lpm NC; vc 17:00 BP 101 / 75; Pulse 74; Resp 25; Pulse Ox 100% on 2 lpm NC; vc 17:15 BP 100 / 71; Pulse 69; Resp 27; Pulse Ox 100% on 2 lpm NC; vc 17:30 BP 109 / 80; Pulse 72; Resp 22; Pulse Ox 99% on 2 lpm NC; vc 17:45 BP 115 / 83; Pulse 68; Resp 26; Pulse Ox 99% on 2 lpm NC; vc 18:00 BP 113 / 81; Pulse 69; Resp 30; Pulse Ox 99% ; vc 19:43 BP 97 / 56; Pulse 67; Resp 22; Temp 97.5; Pulse Ox 100% on 2 lpm NC; rv [place] Coma Score: 14:50 Eye Response: spontaneous(4). Verbal Response: oriented(5). Motor Response: obeys vc commands(6). Total: 15. 15:30 Eye Response: to voice(3). Verbal Response: oriented(5). Motor Response: obeys vc commands(6). Total: 14. 16:30 Eye Response: to voice(3). Verbal Response: oriented(5). Motor Response: obeys vc commands(6). Total: 14. 19:43 Eye Response: spontaneous(4). Verbal Response: oriented(5). Motor Response: obeys rv commands(6). Total: 15. MDM: 14:47 Patient medically screened. rn 14:56 ED course: Pt on phone telling someone, presumably family, "I want to end my life rn because of your mom".. 16:08 ED course: Poison control does not recommend Romazicon, only symptomatic treatment. rn Will have to obs in hospital given decreased LOC and extended half-life. . 16:12 Differential diagnosis: Ingestion/exposure to clonazepam. Data reviewed: vital signs, rn nurses notes, lab test result(s), EKG, and as a result, I will admit patient. Counseling: I had a detailed discussion with the patient and/or guardian regarding: the historical points, exam findings, and any diagnostic results supporting the discharge/admit diagnosis, lab results, radiology results, the need for further work-up and treatment in the hospital. 04/13 14:49 Order name: CBC with Diff rn 04/13 14:49 Order name: Acetaminophen; Complete Time: 15:59 rn 04/13 14:49 Order name: Basic Metabolic Panel; Complete Time: 15:59 rn 04/13 14:49 Order name: ETOH Level; Complete Time: 15:59 rn 04/13 14:49 Order name: Hepatic Function; Complete Time: 15:59 rn 04/13 14:49 Order name: PT-INR; Complete Time: 15:39 rn 04/13 14:49 Order name: IV Start; Complete Time: 15:40 rn 04/13 14:49 Order name: Ptt, Activated; Complete Time: 15:39 rn 04/13 14:49 Order name: Salicylate; Complete Time: 15:59 rn 04/13 14:49 Order name: Urine Drug Screen rn 04/13 14:49 Order name: EKG; Complete Time: 14:50 rn 04/13 14:49 Order name: CBC with Automated Diff; Complete Time: 15:30 EDMS 04/13 14:54 Order name: BNP; Complete Time: 15:59 rn 04/13 14:49 Order name: EKG - Nurse/Tech; Complete Time: 15:06 rn 04/13 14:49 Order name: Labs collected and sent; Complete Time: 15:40 rn EC:11 Rate is 72 beats/min. Rhythm is regular. QRS is positive in lead I and negative in lead rn aVF. WV interval is normal. QRS interval is normal. QT interval is normal. No Q waves. T waves are Inverted in leads V1, V2, V3. No ST changes noted. Clinical impression: NSR w/ Non-specific ST/T Changes. Interpreted by me. Reviewed by me. Administered Medications: 15:40 Drug: Xopenex (3) 0.63 mg Route: Inhalation; vc Disposition: 04/13/20 16:14 Hospitalization ordered by Jose Carpio for Observation. Preliminary diagnosis are Intentional overdose - Clonazepam, Suicidal ideations. - Bed requested for Intensive Care Unit. - Status is Observation. rv - Condition is Stable. - Problem is new. - Symptoms have worsened. Critical care time excluding procedures: 16:12 Critical care time: Bedside Care: 25 minutes, Consultation: 5 minutes. Total time: 30 rn minutes Signatures: Dispatcher [employer] EDMS Renea Mariano RN RN iw Nieto, Roman, MD MD rn Baxter, Heather, RN RN hb Vicente, Ronaldo, RN RN rv Jodie Fisher RN RN vc Corrections: (The following items were deleted from the chart) 18:48 16:14 Hospitalization Ordered by Jose Carpio MD for Observation. Preliminary diagnosis iw is Intentional overdose - Clonazepam; Suicidal ideations. Bed requested for Intensive Care Unit. Status is Observation. Condition is Stable. Problem is new. Symptoms have worsened. rn 19:44 18:48 04/13/2020 16:14 Hospitalization Ordered by Jose Carpio MD for Observation. rv Preliminary diagnosis is Intentional overdose - Clonazepam; Suicidal ideations. Bed requested for Intensive Care Unit. Status is Observation. Condition is Stable. Problem is new. Symptoms have worsened. iw
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
--- OUTSIDE RECORDS SUMMARY | 2020-04-13 19:14 | XMS REPORT | Clinical Summary ---
:1955 Author Organization [facility] Address [address] [place] [address] Care Team Providers Name Role Phone Bebeto Jaffe DO Primary Care Provider Allergies Active Allergy Reactions Severity Noted Date Comments Ibuprofen 07/18/2016 Medications Medication Sig Dispensed Refills Start End Date Status Date PROAIR HFA 90 USE 2 PUFFS 4 A ctive mcg/actuation NEEDED EVERY 4 6 inhaler HRS, NEEDED FOR INHALATION 30 DAYS SPIRIVA RESPIMAT TAKE 2 PUFFS 3 Active 2.5 mcg/actuation BY MOUTH EVERY 6 mist DAY traZODone (DESYREL) Take 50 mg by 0 Active 100 MG tablet mouth nightly. ONETOUCH DELICA CHECK GLUCOSE 100 each 3 Active LANCETS 33 gauge TWICE A DAY 7 misc insulin Use 1 syringe 270 each 1 Active syringe-needle TID. 8 U-100 1 mL 31 gauge x 5/16 syringe omeprazole Take 40 mg by 0 Activ e (PriLOSEC) 40 MG mouth 2 (two) capsule times a day. clonAZEPAM Take 1 mg by 0 Active (KlonoPIN) 1 MG mouth 2 (two) tablet times a day as needed for seizures. pen needle, Use 4 needles 400 each 3 Acti ve diabetic (BD a day. Dx: 8 ULTRA-FINE TIERA PEN E11.65 NEEDLE) 32 gauge x 5/32" needle aspirin (ECOTRIN) Take 81 mg by 0 Active 81 MG enteric mouth daily. coated tablet clopidogrel Take 75 mg by 0 Acti ve (PLAVIX) 75 mg mouth daily. tablet gabapentin Take 600 mg by 0 Acti ve (NEURONTIN) 600 mg mouth 2 (two) tablet times a day. naltrexone (DEPADE) Take 50 mg by 0 Active 50 mg tablet mouth daily. fenofibrate Take 160 mg by 0 Act blair (LOFIBRA) 160 MG mouth daily. tablet oxyCODone-acetamino TAKE 1 TABLET 0 Discontinued phen (PERCOCET) BY MOUTH EVERY 6 20 (Med List 10-325 mg per TWELVE HOURS Luis Manuel dion) tablet NEEDED FOR PAIN lancets (ONETOUCH 1 each 4 400 each 3 05/27/20 Di scontinued DELICA LANCETS) 33 (four) times a 7 19 (Duplicate gauge day. order) miscIndications: Type 2 diabetes mellitus with complication, with long-term current use of insulin ([facility]) blood sugar Check glucose 400 strip 3 01/06/20 Disc ontinued diagnostic strips 4 times a day 7 20 (Stop Taking at (ONETOUCH VERIO) Dis charge) strip test stripsIndications: Type 2 diabetes mellitus with complication, with long-term current use of insulin ([facility]) spironolactone Take 50 mg by 0 01/06/20 D iscontinued (ALDACTONE) 50 MG mouth daily. 20 (Stop Taking at tablet Discharge) ARIPiprazole Take 10 mg by 0 01/06/20 Dis continued (ABILIFY) 10 MG mouth daily. 20 ( Stop Taking at tablet Discharge) TOUJEO SOLOSTAR Inject 75 22.5 mL 3 12/31/19 Disc ontinued U-300 INSULIN 300 Units under 8 20 (Error) unit/mL (1.5 mL) the skin insulin daily. penIndications: Type 2 diabetes mellitus with complication, with long-term current use of insulin ([facility]) APIDRA SOLOSTAR Inject 30 33 mL 3 01/06/20 Disc ontinued U-100 INSULIN 100 units in the 8 20 (Stop Taking at unit/mL insulin morning, 36 Di scharge) penIndications: units at lunch Type 2 diabetes and 36 units mellitus with at dinner plus complication, with sliding scale. long-term current use of insulin ([facility]) metFORMIN TAKE 1 TABLET 180 tablet 3 01/06/20 Disco ntinued (GLUCOPHAGE) 1,000 BY MOUTH TWO 9 20 (Stop Taking at mg tablet TIMES DAILY Discharg e) WITH MEALS empagliflozin Take 1 tablet 90 tablet 3 12/31/19 Di scontinued (JARDIANCE) 25 mg (25 mg total) 9 20 (Error) tablet by mouth daily. atorvastatin Take 20 mg by 0 05/29/20 Dis continued (LIPITOR) 20 MG mouth daily. 19 ( Reorder) tablet Default OP ins metoprolol tartrate Take 50 mg by 0 Discontinued (LOPRESSOR) 50 mg mouth 2 (two) 20 (Stop Taking at tablet times a day. Dischar ge) atorvastatin Take 1 tablet 90 tablet 1 05/29/20 Dis continued (LIPITOR) 20 MG (20 mg total) 9 19 (Reorder) tablet by mouth daily. atorvastatin Take 1 tablet 90 tablet 1 01/06/20 Dis continued (LIPITOR) 20 MG (20 mg total) 9 20 (Stop Taking at tablet by mouth Discharge) daily. insulin GLARGINE Inject under 0 01/06/20 Discontinued (LANTUS) 100 the skin 20 (Stop T aking at unit/mL injection nightly. New Discharge) (vial) medication to patient - replacing Toujeo BUMETanide (BUMEX) Take 2 mg by 0 01/06/20 Discontinued 2 MG tablet mouth 2 (two) 20 (Sto p Taking at times a day. Dischar ge) furosemide (LASIX) Take 20 mg by 0 0 Discontinued 20 mg tablet mouth daily. 20 (Sto p Taking at Discharge) lisinopriL Take 5 mg by 0 01/06/20 Discon tinued (PRINIVIL) 5 mg mouth daily. 20 ( Reorder) tablet atorvastatin Take 1 tablet 30 tablet 0 02/06/20 Exp ired (LIPITOR) 80 MG (80 mg total) 0 20 tablet by mouth daily for 30 days. insulin GLARGINE Inject 26 15.6 mL 0 02/05/20 Exp ired (LANTUS) 100 Units under 0 20 unit/mL injection the skin 2 (vial) (two) times a day for 30 days. DULoxetine Take 1 capsule 30 capsule 0 02/05/20 Exp ired (CYMBALTA) 30 MG (30 mg total) 0 20 capsule by mouth daily for 30 days. insulin lispro Inject 14 10 mL 0 02/05/20 Expir ed (HumaLOG) 100 Units under 0 20 unit/mL injection the skin 3 (three) times a day before meals for 30 days. ARIPiprazole Take 1 tablet 3 tablet 0 01/10/20 Exp ired (ABILIFY) 5 MG (5 mg total) 0 20 tablet by mouth daily for 3 days. lisinopriL Take 0.5 15 tablet 0 02/05/20 (PRINIVIL) 5 mg tablets (2.5 0 20 tablet mg total) by mouth daily for 30 days. Active Problems Problem Noted Date Abdominal pain, acute, generalized 01/01/2020 Hyperglycemia 12/31/2019 DKA (diabetic ketoacidoses) 12/31/2019 Benign hypertension 04/11/2016 Bronchitis 04/11/2016 Chronic coronary artery disease 04/11/2016 Disease of airway 04/11/2016 Fever 04/11/2016 HLD (hyperlipidemia) 04/11/2016 Methicillin susceptible Staphylococcus aureus infectio n 04/11/2016 Escherichia coli (E. coli) infection 04/11/2016 Leukocytosis 04/11/2016 Localized peritonitis 04/11/2016 Abscess, retroperitoneal 04/11/2016 Fatty liver 04/11/2016 Uncontrolled type 2 diabetes mellitus 04/11/2016 Vitamin D deficiency 04/11/2016 Encounters Date Type Specialty Care Team Description 12/31/2019 - Hospital Critical Care HariwillemAmishnayan Diabetic ketoa cidosis without coma associated with diabetes mellitus due to underlying condition (HCC) (Primary Dx); 01/06/2020 Encounter Medicine MD José Miguel Abdominal pain, acute, generalized; Darian, Severe dehydrat ion; Kodavayour Hypotension, un specified hypotension type; MD Jaz Diarrhea, uns pecified type; Hyperglycemia 12/31/2019 Office Visit Endocrinology Divina Zendejas Uncontrol led type 2 diabetes kathleen us with hyperglyce curtis (HCC) (Primary Dx) 05/29/2019 Orders Only Endocrinology Susanna Laboy MA 05/29/2019 Orders Only Endocrinology Susanna Laboy MA 05/28/2019 Refill Endocrinology Divina Zendejas MD 05/27/2019 Office Visit Endocrinology Divina Zendejas, Type 2 di abetes mellitus with complication, unspecified whe ther termite control servicer insul in use (HCC) (Prim jerri Dx) after 04/13/2019 Family History Medical History Relation Name Comments Diabetes Brother Diabetes Father Heart disease Father Hypertension Father Other Father Diabetes Mother Heart disease Mother Hypertension Mother Kidney disease Mother Other Mother Thyroiditis Diabetes Paternal Grandfather Heart disease Paternal Grandfather Hypertension Paternal Grandfather Other Paternal Grandfather Disorder of thyroid gland Diabetes Son Other Son Steatosis of mine er Relation Name Status Comments Brother Father Mother [...] Sign Reading Time Taken Comments Blood Pressure 111/76 01/06/2020 2:00 PM CDT Pulse 77 01/06/2020 2:00 PM CDT Temperature 36.7 C (98 F) 01/06/2020 11:00 AM CDT Respiratory Rate 18 01/06/2020 2:00 PM CDT Oxygen Saturation 98% 01/06/2020 2:00 PM CDT Inhaled Oxygen Concentration - - Weight 92.7 kg (204 lb 5.9 oz) 01/05/2020 5:43 AM CDT Height 167.6 cm (5' 6") 12/31/2019 11:31 AM [employer] Body Mass Index 32.99 12/31/2019 11:31 AM [employer] Plan of Treatment Health Maintenance Due Date Last Done Comments COLONOSCOPY SCREENING 2003 SHINGLES VACCINES (#1) 2003 DIABETIC FOOT EXAM 10/10/2017 10/10/2016, 07/18/2016 65+ PNEUMOCOCCAL VACCINE (2 of 2 - 2018 09/29/2017, 1 PPSV23) URINE MICROALBUMIN 07/19/2019 07/19/2018, 01/07/2017, 01/07/2017, Additional history exists DIABETIC RETINAL EYE EXAM 03/20/2020 03/20/2018, 04/28/2017 , 04/28/2016 INFLUENZA VACCINE 05/30/2020 07/27/2017, 07/13/2016 Procedures Procedure Name Priority Date/Time Associated Diagnosis Comme nts HC COMPLETE BLD COUNT Routine 01/06/2020 2:00 Re sults for this W/AUTO DIFF PM CDT procedure are i n the results section. ESTIMATED GFR Routine 01/06/2020 12:45 Results fo r this PM CDT procedure are i n the results section. PHOSPHORUS LEVEL Routine 01/06/2020 12:45 Results for this PM CDT procedure are i n the results section. MAGNESIUM LEVEL Routine 01/06/2020 12:45 Results for this PM CDT procedure are i n the results section. COMPREHENSIVE METABOLIC Routine 01/06/2020 12:45 Results for this PANEL PM CDT procedure are i n the results section. POC GLUCOSE Routine 01/06/2020 11:45 Results for this AM CDT procedure are i n the results section. POC GLUCOSE Routine 01/06/2020 7:55 Results for this AM CDT procedure are i n the results section. TRIGLYCERIDES Routine 01/06/2020 5:15 Results fo r this AM CDT procedure are i n the results section. POC GLUCOSE Routine 01/05/2020 8:32 Results for this PM CDT procedure are i n the results section. POC GLUCOSE Routine 01/05/2020 5:02 Results for this PM CDT procedure are i n the results section. POC GLUCOSE Routine 01/05/2020 11:29 Results for this AM CDT procedure are i n the results section. POC GLUCOSE Routine 01/05/2020 7:56 Results for this AM CDT procedure are i n the results section. MANUAL DIFFERENTIAL Routine 01/05/2020 4:30 Resu lts for this AM CDT procedure are i n the results section. ESTIMATED GFR Routine 01/05/2020 4:30 Results fo r this AM CDT procedure are i n the results section. BASIC METABOLIC PANEL Routine 01/05/2020 4:30 Re sults for this AM CDT procedure are i n the results section. CBC WITH PLATELET AND Routine 01/05/2020 4:30 Re sults for this DIFFERENTIAL AM CDT procedure are i n the results section. MAGNESIUM LEVEL Routine 01/05/2020 4:30 Results for this AM CDT procedure are i n the results section. POC GLUCOSE Routine 01/04/2020 8:10 Results for this PM [employer] procedure are i n the results section. POC GLUCOSE Routine 01/04/2020 4:55 Results for this PM [employer] procedure are i n the results section. POC GLUCOSE Routine 01/04/2020 2:40 Results for this PM [employer] procedure are i n the results section. POC GLUCOSE Routine 01/04/2020 12:30 Results for this PM [employer] procedure are i n the results section. POC GLUCOSE Routine 01/04/2020 11:30 Results for this AM [employer] procedure are i n the results section. POC GLUCOSE Routine 01/04/2020 10:30 Results for this AM [employer] procedure are i n the results section. POC GLUCOSE Routine 01/04/2020 8:21 Results for this AM [employer] procedure are i n the results section. POC GLUCOSE Routine 01/04/2020 6:25 Results for this AM [employer] procedure are i n the results section. POC GLUCOSE Routine 01/04/2020 5:33 Results for this AM [employer] procedure are i n the results section. TRIGLYCERIDES Routine 01/04/2020 5:30 Results fo r this AM [employer] procedure are i n the results section. MAGNESIUM LEVEL Routine 01/04/2020 5:30 Results for this AM [employer] procedure are i n the results section. ESTIMATED GFR Routine 01/04/2020 5:30 Results fo r this AM [employer] procedure are i n the results section. BASIC METABOLIC PANEL Routine 01/04/2020 5:30 Re sults for this AM [employer] procedure are i n the results section. HC COMPLETE BLD COUNT Routine 01/04/2020 5:30 Re sults for this W/AUTO DIFF AM [employer] procedure are i n the results section. POC GLUCOSE Routine 01/04/2020 4:50 Results for this AM [employer] procedure are i n the results section. POC GLUCOSE Routine 01/04/2020 3:28 Results for this AM [employer] procedure are i n the results section. POC GLUCOSE Routine 01/04/2020 2:31 Results for this AM [employer] procedure are i n the results section. POC GLUCOSE Routine 01/04/2020 1:31 Results for this AM [employer] procedure are i n the results section. POC GLUCOSE Routine 01/04/2020 12:28 Results for this AM [employer] procedure are i n the results section. POC GLUCOSE Routine 01/03/2020 11:27 Results for this PM [employer] procedure are i n the results section. POC GLUCOSE Routine 01/03/2020 10:27 Results for this PM [employer] procedure are i n the results section. POC GLUCOSE Routine 01/03/2020 9:27 Results for this PM [employer] procedure are i n the results section. POC GLUCOSE Routine 01/03/2020 8:27 Results for this PM [employer] procedure are i n the results section. POC GLUCOSE Routine 01/03/2020 7:35 Results for this PM [employer] procedure are i n the results section. POC GLUCOSE Routine 01/03/2020 6:16 Results for this PM [employer] procedure are i n the results section. POC GLUCOSE Routine 01/03/2020 4:44 Results for this PM [employer] procedure are i n the results section. POC GLUCOSE Routine 01/03/2020 2:21 Results for this PM [employer] procedure are i n the results section. POC GLUCOSE Routine 01/03/2020 2:12 Results for this PM [employer] procedure are i n the results section. GASTROINTESTINAL PANEL Routine 01/03/2020 2:00 R esults for this PM [employer] procedure are i n the results section. POC GLUCOSE Routine 01/03/2020 12:23 Results for this PM [employer] procedure are i n the results section. POC GLUCOSE Routine 01/03/2020 10:22 Results for this AM [employer] procedure are i n the results section. POC GLUCOSE Routine 01/03/2020 7:23 Results for this AM [employer] procedure are i n the results section. ESTIMATED GFR Routine 01/03/2020 6:00 Results fo r this AM [employer] procedure are i n the results section. TRIGLYCERIDES Routine 01/03/2020 6:00 Results fo r this AM [employer] procedure are i n the results section. MAGNESIUM LEVEL Routine 01/03/2020 6:00 Results for this AM [employer] procedure are i n the results section. HC COMPLETE BLD COUNT Routine 01/03/2020 6:00 Re sults for this W/AUTO DIFF AM [employer] procedure are i n the results section. COMPREHENSIVE METABOLIC Routine 01/03/2020 6:00 Results for this PANEL AM [employer] procedure are i n the results section. POC GLUCOSE Routine 01/03/2020 5:01 Results for this AM [employer] procedure are i n the results section. POC GLUCOSE Routine 01/03/2020 3:03 Results for this AM [employer] procedure are i n the results section. POC GLUCOSE Routine 01/03/2020 1:01 Results for this AM [employer] procedure are i n the results section. POC GLUCOSE Routine 01/02/2020 11:03 Results for this PM [employer] procedure are i n the results section. POC GLUCOSE Routine 01/02/2020 10:03 Results for this PM [employer] procedure are i n the results section. POC GLUCOSE Routine 01/02/2020 9:04 Results for this PM [employer] procedure are i n the results section. POC GLUCOSE Routine 01/02/2020 8:03 Results for this PM [employer] procedure are i n the results section. POC GLUCOSE Routine 01/02/2020 7:07 Results for this PM [employer] procedure are i n the results section. POC GLUCOSE Routine 01/02/2020 5:54 Results for this PM [employer] procedure are i n the results section. POC GLUCOSE Routine 01/02/2020 4:10 Results for this PM [employer] procedure are i n the results section. TRIGLYCERIDES Timed 01/02/2020 4:00 Results fo r this PM [employer] procedure are i n the results section. POC GLUCOSE Routine 01/02/2020 3:00 Results for this PM [employer] procedure are i n the results section. POC GLUCOSE Routine 01/02/2020 1:08 Results for this PM [employer] procedure are i n the results section. ESTIMATED GFR Routine 01/02/2020 12:17 Results fo r this PM [employer] procedure are i n the results section. BASIC METABOLIC PANEL Routine 01/02/2020 12:17 Re sults for this PM [employer] procedure are i n the results section. POC GLUCOSE Routine 01/02/2020 11:53 Results for this AM [employer] procedure are i n the results section. POC GLUCOSE Routine 01/02/2020 10:50 Results for this AM [employer] procedure are i n the results section. POC GLUCOSE Routine 01/02/2020 9:50 Results for this AM [employer] procedure are i n the results section. POC GLUCOSE Routine 01/02/2020 8:39 Results for this AM [employer] procedure are i n the results section. POC GLUCOSE Routine 01/02/2020 7:37 Results for this AM [employer] procedure are i n the results section. ESTIMATED GFR Routine 01/02/2020 7:30 Results fo r this AM [employer] procedure are i n the results section. BASIC METABOLIC PANEL Routine 01/02/2020 7:30 Re sults for this AM [employer] procedure are i n the results section. POC GLUCOSE Routine 01/02/2020 6:36 Results for this AM [employer] procedure are i n the results section. POC GLUCOSE Routine 01/02/2020 5:04 Results for this AM [employer] procedure are i n the results section. POC GLUCOSE Routine 01/02/2020 4:11 Results for this AM [employer] procedure are i n the results section. POC GLUCOSE Routine 01/02/2020 3:13 Results for this AM [employer] procedure are i n the results section. ESTIMATED GFR Timed 01/02/2020 2:30 Results fo r this AM [employer] procedure are i n the results section. LIPASE LEVEL Timed 01/02/2020 2:30 Results for this AM [employer] procedure are i n the results section. AMYLASE LEVEL Timed 01/02/2020 2:30 Results fo r this AM [employer] procedure are i n the results section. IONIZED CALCIUM Timed 01/02/2020 2:30 Results for this AM [employer] procedure are i n the results section. TRIGLYCERIDES Timed 01/02/2020 2:30 Results fo r this AM [employer] procedure are i n the results section. LACTIC ACID LEVEL Timed 01/02/2020 2:30 Result s for this AM [employer] procedure are i n the results section. MAGNESIUM LEVEL Timed 01/02/2020 2:30 Results for this AM [employer] procedure are i n the results section. HC COMPLETE BLD COUNT Timed 01/02/2020 2:30 Re sults for this W/AUTO DIFF AM [employer] procedure are i n the results section. COMPREHENSIVE METABOLIC Timed 01/02/2020 2:30 Results for this PANEL AM [employer] procedure are i n the results section. POC GLUCOSE Routine 01/02/2020 2:00 Results for this AM [employer] procedure are i n the results section. POC GLUCOSE Routine 01/02/2020 1:12 Results for this AM [employer] procedure are i n the results section. POC GLUCOSE Routine 01/02/2020 12:13 Results for this AM [employer] procedure are i n the results section. POC GLUCOSE Routine 01/01/2020 10:59 Results for this PM [employer] procedure are i n the results section. POC GLUCOSE Routine 01/01/2020 10:01 Results for this PM [employer] procedure are i n the results section. POC GLUCOSE Routine 01/01/2020 9:20 Results for this PM [employer] procedure are i n the results section. POC GLUCOSE Routine 01/01/2020 8:16 Results for this PM [employer] procedure are i n the results section. BASIC METABOLIC PANEL Routine 01/01/2020 7:30 Re sults for this PM [employer] procedure are i n the results section. ESTIMATED GFR Routine 01/01/2020 7:30 Results fo r this PM [employer] procedure are i n the results section. BETA HYDROXYBUTYRATE Routine 01/01/2020 7:30 Res ults for this PM [employer] procedure are i n the results section. POC GLUCOSE Routine 01/01/2020 6:27 Results for this PM [employer] procedure are i n the results section. POC GLUCOSE Routine 01/01/2020 5:29 Results for this PM [employer] procedure are i n the results section. POC GLUCOSE Routine 01/01/2020 4:25 Results for this PM [employer] procedure are i n the results section. POC GLUCOSE Routine 01/01/2020 3:24 Results for this PM [employer] procedure are i n the results section. POC GLUCOSE Routine 01/01/2020 2:35 Results for this PM [employer] procedure are i n the results section. TRIGLYCERIDES Routine 01/01/2020 2:26 Results fo r this PM [employer] procedure are i n the results section. AMYLASE LEVEL Routine 01/01/2020 2:26 Results fo r this PM [employer] procedure are i n the results section. LIPASE LEVEL Routine 01/01/2020 2:26 Results for this PM [employer] procedure are i n the results section. POC GLUCOSE Routine 01/01/2020 12:59 Results for this PM [employer] procedure are i n the results section. POC GLUCOSE Routine 01/01/2020 12:04 Results for this PM [employer] procedure are i n the results section. ECG 12-LEAD STAT 01/01/2020 11:46 Results for this AM [employer] procedure are i n the results section. POC GLUCOSE Routine 01/01/2020 11:06 Results for this AM [employer] procedure are i n the results section. POC GLUCOSE Routine 01/01/2020 10:04 Results for this AM [employer] procedure are i n the results section. POC GLUCOSE Routine 01/01/2020 8:47 Results for this AM [employer] procedure are i n the results section. POC GLUCOSE Routine 01/01/2020 8:01 Results for this AM [employer] procedure are i n the results section. POC GLUCOSE Routine 01/01/2020 6:54 Results for this AM [employer] procedure are i n the results section. POC GLUCOSE Routine 01/01/2020 5:50 Results for this AM [employer] procedure are i n the results section. POC GLUCOSE Routine 01/01/2020 4:38 Results for this AM [employer] procedure are i n the results section. LACTIC ACID LEVEL STAT 01/01/2020 4:21 Result s for this AM [employer] procedure are i n the results section. HC COMPLETE BLD COUNT STAT 01/01/2020 4:21 Re sults for this W/AUTO DIFF AM [employer] procedure are i n the results section. ESTIMATED GFR Routine 01/01/2020 4:21 Results fo r this AM [employer] procedure are i n the results section. LIPID PANEL Routine 01/01/2020 4:21 Results for this AM [employer] procedure are i n the results section. COMPREHENSIVE METABOLIC Routine 01/01/2020 4:21 Results for this PANEL AM [employer] procedure are i n the results section. POC GLUCOSE Routine 01/01/2020 3:39 Results for this AM [employer] procedure are i n the results section. DKA ELECTROLYTES AND Timed 01/01/2020 2:28 Res ults for this GLUCOSE TEST AM [employer] procedure are i n the results section. POC GLUCOSE Routine 01/01/2020 2:24 Results for this AM [employer] procedure are i n the results section. CT ABDOMEN PELVIS WO STAT 01/01/2020 2:09 Res ults for this CONTRAST AM [employer] procedure are i n the results section. POC GLUCOSE Routine 01/01/2020 1:36 Results for this AM [employer] procedure are i n the results section. POC GLUCOSE Routine 01/01/2020 12:04 Results for this AM [employer] procedure are i n the results section. LACTIC ACID LEVEL Routine 01/01/2020 12:00 Result s for this AM [employer] procedure are i n the results section. ESTIMATED GFR Routine 01/01/2020 12:00 Results fo r this AM [employer] procedure are i n the results section. BASIC METABOLIC PANEL Routine 01/01/2020 12:00 Re sults for this AM [employer] procedure are i n the results section. DKA ELECTROLYTES AND Timed 01/01/2020 12:00 Res ults for this GLUCOSE TEST AM [employer] procedure are i n the results section. POC GLUCOSE Routine 12/31/2019 10:24 Results for this PM [employer] procedure are i n the results section. LACTIC ACID LEVEL Routine 12/31/2019 9:30 Result s for this PM [employer] procedure are i n the results section. DKA ELECTROLYTES AND Timed 12/31/2019 9:30 Res ults for this GLUCOSE TEST PM [employer] procedure are i n the results section. POC GLUCOSE Routine 12/31/2019 9:29 Results for this PM [employer] procedure are i n the results section. POC GLUCOSE Routine 12/31/2019 8:09 Results for this PM [employer] procedure are i n the results section. POC GLUCOSE Routine 12/31/2019 6:43 Results for this PM [employer] procedure are i n the results section. TROPONIN Timed 12/31/2019 6:40 Results for this PM [employer] procedure are i n the results section. DKA ELECTROLYTES AND Timed 12/31/2019 6:40 Res ults for this GLUCOSE TEST PM [employer] procedure are i n the results section. POC GLUCOSE Routine 12/31/2019 5:26 Results for this PM [employer] procedure are i n the results section. LACTIC ACID LEVEL Timed 12/31/2019 4:25 Result s for this PM [employer] procedure are i n the results section. DKA ELECTROLYTES AND Timed 12/31/2019 4:25 Res ults for this GLUCOSE TEST PM [facility] procedure are i n the results section. TROPONIN Timed 12/31/2019 4:25 Results for this PM [employer] [employer] procedure are i n the results section. POC GLUCOSE Routine 12/31/2019 4:09 Results for this PM [employer] [employer] procedure are i n the results section. URINALYSIS SCREEN AND STAT 12/31/2019 3:05 Re sults for this MICROSCOPY, WITH REFLEX PM [facility] proc edure are in TO CULTURE the results section. URINE CULTURE STAT 12/31/2019 3:05 Results fo r this PM [facility] procedure are i n the results section. HEMOGLOBIN A1C STAT 12/31/2019 2:56 Results f or this PM [facility] procedure are i n the results section. HC COMPLETE BLD COUNT STAT 12/31/2019 2:56 Re sults for this W/AUTO DIFF PM [facility] procedure are i n the results section. DKA ELECTROLYTES AND STAT 12/31/2019 2:56 Res ults for this GLUCOSE TEST PM [employer] [employer] procedure are i n the results section. PHOSPHORUS LEVEL STAT 12/31/2019 2:56 Results for this PM [employer] [employer] procedure are i n the results section. MAGNESIUM LEVEL STAT 12/31/2019 2:56 Results for this PM [facility] [employer] procedure are i n the results section. POC GLUCOSE Routine 12/31/2019 2:44 Results for this PM [employer] [employer] procedure are i n the results section. POC GLUCOSE Routine 12/31/2019 1:23 Results for this PM [facility] [employer] procedure are i n the results section. XR CHEST 1 VW PORTABLE STAT 12/31/2019 1:10 R esults for this PM [facility] procedure are i n the results section. RESPIRATORY PATHOGEN Routine 12/31/2019 12:47 Res ults for this PANEL PM [facility] procedure are i n the results section. VENOUS BLOOD GAS Routine 12/31/2019 12:38 Results for this PM [facility] procedure are i n the results section. LACTIC ACID LEVEL STAT 12/31/2019 12:31 Result s for this PM [facility] procedure are i n the results section. ESTIMATED GFR STAT 12/31/2019 12:31 Results fo r this PM [facility] procedure are i n the results section. PARTIAL THROMBOPLASTIN STAT 12/31/2019 12:31 R esults for this TIME (PTT) PM [facility] procedure are i n the results section. PROTHROMBIN TIME WITH STAT 12/31/2019 12:31 Re sults for this INR PM [facility] procedure are i n the results section. B NATRIURETIC PEPTIDE STAT 12/31/2019 12:31 Re sults for this PM [facility] procedure are i n the results section. TROPONIN STAT 12/31/2019 12:31 Results for this PM [employer] [employer] procedure are i n the results section. COMPREHENSIVE METABOLIC STAT 12/31/2019 12:31 Results for this PANEL PM [facility] [employer] procedure are i n the results section. HC COMPLETE BLD COUNT STAT 12/31/2019 12:31 Re sults for this W/AUTO DIFF PM [facility] [employer] procedure are i n the results section. POC GLYCOSYLATED Routine 12/31/2019 12:05 Uncontrolled type 2 Results for this HEMOGLOBIN (HGB A1C) PM [facility] diabetes mellitus pr ocedure are in with hyperglycemia the resul ts (HCC) section. BLOOD CULTURE, AEROBIC & Routine 12/31/2019 11:40 Results for this ANAEROBIC AM [facility] procedure are i n the results section. ECG 12-LEAD STAT 12/31/2019 11:37 Results for this AM [facility] procedure are i n the results section. POC GLUCOSE Routine 12/31/2019 11:30 Results for this AM [employer] [employer] procedure are i n the results section. BLOOD CULTURE, AEROBIC & Routine 12/31/2019 11:30 Results for this ANAEROBIC AM [employer] [employer] procedure are i n the results section. 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 residential insulin use (HCC) after 04/13/2019 Results CBC with platelet and differential (01/06/2020 2:00 PM CDT)Only the most recent of8 resultswithin the time period is included. WBC 9.20 4.50 - 11.00 [facility] RBC 4.28 (L) 4.40 - 6.00 [facility] m/uL HOSPITAL HGB 13.4 (L) 14.0 - 18.0 [facility] g/dL HOSPITAL HCT 41.1 41.0 - 51.0 % [facility] MCV 96.0 82.0 - 100.0 [facility] MCH 31.3 27.0 - 34.0 pg [facility] MCHC 32.6 31.0 - 37.0 [facility] g/dL [facility] RDW - SD 47.7 37.0 - 55.0 fL [facility] MPV 9.8 8.8 - 13.2 fL [facility] Platelet count 287 150 - 400 k/uL [facility] Nucleated RBC 0.00 /100 WBC [facility] Neutrophils 71.0 (H) 39.0 - 69.0 % [facility] Lymphocytes 19.5 (L) 25.0 - 45.0 % [facility] Monocytes 5.8 0.0 - 10.0 % [facility] Eosinophils 2.7 0.0 - 5.0 % [facility] Basophils 0.5 0.0 - 1.0 % [facility] Immature granulocytes 0.5Comment: 0.0 - 1.0 % [facility] "Immature HOSPITAL granulocytes" (promyelocytes , myelocytes, metamyelocytes ) Specimen Blood Performing Organization Address City/[facility] Phone Number [facility] DEPARTMENT OF PATHOLOGY AND [address] [place] [phone] GENOMIC MEDICINE [address] [address] Estimated GFR (01/06/2020 12:45 PM CDT)Only the most recent of11 resultswithin the time period is included. Estimated GFR >=90 mL/min/1.73 [facility] Comment: m2 HOSPITAL Catergory Units Interpretation G1 >=90 Normal or high G2 60-89 Mildly decreased G3a 45-59 Mildly to moderately decreas ed G3b 30-44 Moderately to severely decre ased G4 15-29 Severely decreased G5 <15 Kidney failure The eGFR was calculated using the Chronic Kidney Disea se Epidemiology Collaboration (CKD-EPI) equation. Interpretation is based on recommendations of the National Kidney Foundation-Kidney Disease Outcomes [place] lity Initiative (NKF-KDOQI) published in 2014. Specimen Plasma specimen Performing Organization Address City/State/Zipcode Phone Number [facility] DEPARTMENT OF PATHOLOGY AND [address] [place] [address] [phone] [address] Phosphorus level (01/06/2020 12:45 PM CDT)Only the most recent of2 resultswithin the time period is included. Pathologist Sig nature Phosphorus 2.6 2.4 - 4.5 mg/dL [facility] L Specimen Plasma specimen Performing Organization Address [facility] Phone Number [facility] DEPARTMENT OF PATHOLOGY AND [address] [place] [address] [phone] [address] Magnesium level (01/06/2020 12:45 PM CDT)Only the most recent of6 resultswithin the time period is included. Pathologist Sig nature Magnesium 1.7 1.6 - 2.4 mg/dL [facility] Specimen Plasma specimen Performing Organization Address [facility] Phone Number [facility] DEPARTMENT OF PATHOLOGY AND [address] [place] [address] [phone] [address] Comprehensive metabolic panel (01/06/2020 12:45 PM CDT)Only the most recent of5 resultswithin the time period is included. Sodium 135 135 - 148 [facility] mEq/L [facility] Potassium 4.3 3.5 - 5.0 [facility] mEq/L [facility] Chloride 103 98 - 112 [facility] mEq/L [facility] CO2 20 (L) 24 - 31 mEq/L [facility] Anion gap 12@ANIO 7 - 15 mEq/L [facility] BUN 13 8 - 23 mg/dL [facility] Creatinine 0.76 0.70 - 1.20 [facility] mg/dL HOSPITAL Glucose 236 (H) 65 - 99 mg/dL [facility] Calcium 9.3 8.8 - 10.2 [facility] mg/dL [facility] Protein 7.4 6.3 - 8.3 [facility] Comment: g/dL [facility] - [place] 4.6-7.0 g/dL 1 week 4.4-7.6 g/dL 7 months-1year 5.1-7.3 g/dL 1-2 years 5.6-7.5 g/dL >3 years 6.0-8.0 g/dL 18-150 6.3-8.3 g/dL Albumin 3.1 (L) 3.5 - 5.0 [facility] g/dL [facility] A/G ratio 0.7 0.7 - 3.8 [facility] Alkaline phosphatase 72 40 - 129 U/L [facility] AST 29 10 - 50 U/L [facility] ALT 17 5 - 50 U/L [facility] Total bilirubin <0.2 0.0 - 1.2 [facility] mg/dL HOSPITAL Specimen Plasma specimen Performing Organization Address City/[facility] Phone Number [facility] DEPARTMENT OF PATHOLOGY AND [address] [place] [phone] POC glucose (01/06/2020 11:45 AM CDT)Only the most recent of88 resultswithin the time period is included. Pathologist Sig nature POC glucose 173 (H) 65 - 99 mg/dL [facility] Comment: HOSPITAL Creative Services Specialist Name: Bran Maddox Device ID: [id number] Chartable: [facility] Notified RN Specimen Performing Organization Address [facility] Phone Number [facility] DEPARTMENT OF PATHOLOGY AND [address] [place] [phone] Triglycerides (01/06/2020 5:15 AM CDT)Only the most recent of6 resultswithin the time period is included. Pathologist Sig nature Triglycerides 402 (H) <150 mg/dL [facility] Specimen Plasma specimen Performing Organization Address City/[facility]/Zipcode Phone Number [facility] DEPARTMENT OF PATHOLOGY AND [address] [place] [phone] Manual differential (01/05/2020 4:30 AM CDT) Manual differential PERFORMED [facility] Neutrophils 66.0 39.0 - 69.0 % [facility] Lymphocytes 24.0 (L) 25.0 - 45.0 % [facility] Monocytes 5.0 0.0 - 10.0 % [facility] Eosinophils 5.0 0.0 - 5.0 % [facility] Basophils 0.0 0.0 - 1.0 % [facility] Metamyelocytes 0 % [facility] Promyelocytes 0 % [facility] Platelet slide review Rosemary adequate [facility] Specimen Performing Organization Address City/[facility]/Zipcode Phone Number [facility] DEPARTMENT OF PATHOLOGY AND [address] [place] [address] [phone] [address] Basic metabolic panel (01/05/2020 4:30 AM CDT)Only the most recent of6 results within the time period is included. [facility] nature Sodium 138 135 - 148 mEq/L [facility] L Potassium 3.8 3.5 - 5.0 mEq/L [facility] L Chloride 105 98 - 112 mEq/L [facility] CO2 21 (L) 24 - 31 mEq/L [facility] Anion gap 12@ANIO 7 - 15 mEq/L [facility] BUN 12 8 - 23 mg/dL [facility] Creatinine 0.75 0.70 - 1.20 mg/dL [facility] Glucose 104 (H) 65 - 99 mg/dL [facility] Calcium 9.1 8.8 - 10.2 mg/dL [facility] Specimen Plasma specimen Performing Organization Address City/[facility] Phone Number [facility] DEPARTMENT OF PATHOLOGY AND [address] [place], [place] [phone] [address] Gastrointestinal panel (01/03/2020 2:00 PM [facility]) Gastrointestinal panel Negative for all pathogens tested: [place] Negative for Salmonella YAZIDI Negative for Campylobacter [facility] Negative for Diarrheagenic E coli/Shigella Negative for Shiga-like toxin-producing E coli Negative for Plesiomonas shigelloides Negative for Yersinia enterocolitica Negative for Vibrio species Negative for Clostridium difficile (Toxin A/B) Negative for Cryptosporidium Negative for Giardia lamblia Negative for Cyclospora cayeteanensis Negative for Entamoeba histolytica Negative for Adenovirus F 40/41 Negative for Astrovirus Negative for Norovirus GI/GII Negative for Rotavirus A Negative for Sapovirus Negative for Clostridium difficile toxin Negative for E coli 0157 This real-time PCR assay detects the presence of nucle ic acids (RNA or DNA) for the gastrointestinal pathogens listed. A result of "Not-detected" does not exclude the possib ility of the presence of one or more pathogens at concentrat ions less than the detectable limits of the assay. Comment: Specimen Information Specimen Source: Stool Specimen Site: Nonpreserved Specimen Stool - Nonpreserved Performing Organization Address [facility] Phone Number [facility] DEPARTMENT OF PATHOLOGY AND [address] [place] [phone] Lipase level (01/02/2020 2:30 AM [facility]ER)Only the most recent of2 resultswithin the time period is included. Pathologist Sig nature Lipase 27 13 - 60 U/L [facility] Specimen Plasma specimen Performing Organization Address [facility] Phone Number [facility] DEPARTMENT OF PATHOLOGY AND [address] [place] [phone] Lactic acid level (01/02/2020 2:30 AM [facility])Only the most recent of6 results within the time period is included. Pathologist Sig nature Lactic acid 1.5 0.5 - 2.2 mmol/L [facility] AL Specimen Plasma specimen Performing Organization Address [facility] Phone Number [facility] DEPARTMENT OF PATHOLOGY AND [address] [place] [phone] Ionized calcium (01/02/2020 2:30 AM [facility]) Pathologist Sig nature pH 7.44 [facility] Ionized calcium 1.14 1.11 - 1.32 mmol/L [facility] Specimen Plasma specimen Performing Organization Address [facility] Phone Number [facility] DEPARTMENT OF PATHOLOGY AND [address] [place] [phone] Amylase level (01/02/2020 2:30 AM [facility])Only the most recent of2 resultswithin the time period is included. Pathologist Sig nature Amylase 68 28 - 100 U/L [facility] Specimen Plasma specimen Performing Organization Address City/State/Zipcode Phone Number [facility] DEPARTMENT OF PATHOLOGY AND [address] [place], [place] [phone] [facility] MED[facility] [address] [place] [address] Beta hydroxybutyrate (01/01/2020 7:30 PM [facility]ER) Pathologist Sig nature Beta hydroxybutyrate 0.24 0.02 - 0.27 [facility] mmol/L [facility] Specimen Serum Performing Organization Address City/State/Zipcode Phone Number [facility] DEPARTMENT OF PATHOLOGY AND [address] [place] [phone] [facility] [address] [place] [address] ECG 12 lead (01/01/2020 11:46 AM [facility]ON[facility]ER)Only the most recent of2 resultswithin the time period is included. Pathologist Sig nature Ventricular rate 72 [facility] Atrial rate 73 [facility] QRSD interval 84 [facility] QT interval 400 [facility] QTC interval 438 [facility] QRS axis 1 -31 [facility] T wave axis 30 [facility] EKG impression Baseline artifact-Normal sin us rhythm-Left axis deviation- Nonspecific ST and T wave abnormality-Abnormal ECG-In automated comparison with ECG of 31-DEC-2019 11:37,-Nonspecific T wave abnormality now prerna [facility] dent in Anterolateral leads- Specimen Narrative Performed At This result has an attachment that is no t available. Procedure Note Fady Ramos MD - 12/31/2019 12:33 PM [facility] Emergency Department Provider Note Location: [facility] DEPARTMENT Patient ID: Asim Burnett is a 64 y.o. m blanca. 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 male with a P MHx of HTN, DM (taking insulin, metformin and SGLT2 inhibitor, Jardiance), HLD, CAD (s/p bypass), GERD, colon polyp, anxiety and depression presenting to the ED due to hyperglycemia. Pt reports that he has b een having hyperglycemia for the past several days and his home monitor reading says "HI." The pt's glucose was extremely high at Dr. Divina Zendejas's, endocrinology, office this morning. Per Dr. Zendejas's note, th e pt has had several episodes of hyperglycemia and had a BP of 60/40 and "appears lethargic" in the office. Additionally, the pt related that he did not take his insulin last night because he was not feeling well, and the pt was unsure how much insulin he usually takes. He was advised by Dr. Zendejas to present to the ED due to his hyperglycemia and hypotension. Of note, the pt states that he has been having intermittent diarrhea for about 1 month and was admitted to [facility] for his sxs; however, the pt states that during his admission, no cause for his diarrhea was found. Currently, the pt relates that he is fee ling very weak but denies other associated sxs. Hyperglycemia Blood sugar level MATERIAL COORDINATOR: >500 Severity: Severe Timing: Intermittent Diabetes status: Controlled with oral m edications and controlled with insulin (Not well controlled) Current diabetic therapy: Toujeo, Apidr a, Metformin, and Jardiance Relieved by: None tried Ineffective treatments: None tried Associated symptoms: fatigue and weaknes s Associated symptoms: no abdominal pain, no chest pain, no confusion, no dysuria, no fever, no nausea, no shortness of breath and no vomiting Fatigue: Severity: Severe Progression: Worsening Weakness: Severity: Severe Progression: Worsening History Allergies Allergies Allergen Reactions Ibuprofen Past Medical History Past Medical History: Diagnosis Date Anxiety Back pain Colon polyp Depression Diabetes mellitus (HCC) GERD (gastroesophageal reflux disease) Hyperlipidemia Hypertension Type 2 diabetes mellitus (HCC) Past Surgical History Past Surgical History: Procedure Laterality Date ABDOMINAL SURGERY CARDIAC SURGERY CHOLECYSTECTOMY COLONOSCOPY 8 yrs ago Past Family History Family History Problem Relation Age of Onset Diabetes Brother Father Mother Paternal Grandfather Son Heart disease Father Mother Paternal Grandfather Hypertension Father Mother Paternal Grandfather Kidney disease Mother Other Father Mother Thyroiditis Paternal Grandfather Disorder of thyroid gland Son Steatosis of liver Past Social History Social History Tobacco Use Smoking status: Never Smoker Smokeless tobacco: Never Used Substance and Sexual Activity Alcohol use: No Drug use: No Sexual activity: Not on file Social History Narrative Not on file Medications ED Medications Medication Sig Disc. Start Date End Date Taking? Authorizing Provider atorvastatin (LIPITOR) 80 MG tablet Take 1 tablet (80 mg total) by mouth daily for 30 days. 01/07/20 02/06/20 Ifeanyi Farmer MD DULoxetine (CYMBALTA) 30 MG capsule Take 1 capsule (30 mg total) by mouth daily for 30 days. 01/06/20 02/05/20 Ifeanyi Farmer MD insulin GLARGINE (LANTUS) 100 unit/mL in jection (vial) Inject 26 Units under the skin 2 (two) times a day for 30 days. 01/06/20 02/05/20 Ifeanyi Farmer MD insulin lispro (HumaLOG) 100 unit/mL inj ection Inject 14 Units under the skin 3 (three) times a day before meals for 30 days. 01/06/20 02/05/20 Ifeanyi Farmer MD lisinopriL (PRINIVIL) 5 mg tablet Take 0 .5 tablets (2.5 mg total) by mouth daily for 30 days. 01/06/20 02/05/20 Ifeanyi Farmer MD fenofibrate (LOFIBRA) 160 MG tablet Take 160 mg by mouth daily. Yes Juhi Holguin MD naltrexone (DEPADE) 50 mg tablet Take 50 mg by mouth daily. Yes Juhi Holguin MD gabapentin (NEURONTIN) 600 mg tablet Reilly e 600 mg by mouth 2 (two) times a day. Juhi Holguin MD aspirin (ECOTRIN) 81 MG enteric coated t ablet Take 81 mg by mouth daily. Yes Juhi Holguin MD clopidogrel (PLAVIX) 75 mg tablet Take 7 5 mg by mouth daily. Yes Juhi Holguin MD pen needle, diabetic (BD ULTRA-FINE TIERA PEN NEEDLE) 32 gauge x " needle Use 4 needles a day. Dx: E11.65 08/23/18 Divina Zendejas MD clonAZEPAM (KlonoPIN) 1 MG tablet Take 1 mg by mouth 2 (two) times a day as needed for seizures. Yes Juhi Holguin MD omeprazole (PriLOSEC) 40 MG capsule Take 40 mg by mouth 2 (two) times a day. Juhi Holguin MD insulin syringe-needle U-100 1 mL 31 gau ge x 03/14 syringe Use 1 syringe TID. 01/02/18 Divina Zendejas MD ONETOUCH DELICA LANCETS 33 gauge [facility] JO[facility] GLUCOSE TWICE A DAY 12/07/16 Alexander Mckeon MD PROAIR HFA 90 mcg/actuation inhaler USE 2 PUFFS NEEDED EVERY 4 HRS, NEEDED FOR INHALATION 30 DAYS 06/02/16 Yes Juhi Holguin MD SPIRIVA RESPIMAT 2.5 mcg/actuation mist TAKE 2 PUFFS BY MOUTH EVERY DAY 04/27/16 ProviderJuhi MD traZODone (DESYREL) 100 MG tablet Take 5 0 mg by mouth nightly. Provider, MD Juhi Review of Systems Review of Systems Constitutional: Positive for fatigue. Ne gative for chills and fever. Negative for any other complaint HENT: Negative for rhinorrhea. Eyes: Negative for pain and visual distu rbance. Respiratory: Negative for cough, shortne ss of breath and wheezing. Cardiovascular: Negative for chest pain, palpitations and leg swelling. Gastrointestinal: Positive for diarrhea. Negative for abdominal pain, blood in stool, nausea, vomiting and trouble swallowing. No black stool Genitourinary: Negative for dysuria and hematuria. Musculoskeletal: Negative for back pain, gait problem and neck pain. No loss of rom Skin: Negative for rash. No trauma incl no lacs, abrasions, contusions Neurological: Positive for weakness. Neg ative for tremors, seizures, syncope, speech difficulty, numbness and headaches. No lack of bladder or bowel control Psychiatric/Behavioral: Negative for con fusion and dysphoric mood. All other systems reviewed and are negat blair. Physical Exam ED Triage Vitals [12/31/19 1132] Temp Pulse Resp BP SpO2 97.1 F 79 16 (!) 75/44 97 % Temp src Heart Rate Source Patient Posit ion BP Location FiO2 % Oral Monitor Sitting Right arm -- Physical Exam Vitals signs and nursing note reviewed. Constitutional: Appearance: He is well-developed. HENT: Head: Normocephalic and atraumatic. Right Ear: External ear normal. Left Ear: External ear normal. Eyes: General: No scleral icterus. Right eye: No discharge. Left eye: No discharge. Conjunctiva/sclera: Conjunctivae norm al. Comments: No raccoon eyes. No lesions nor megaly of palpebrae (superior or inferior) Neck: Thyroid: No thyromegaly. Trachea: No tracheal deviation. Cardiovascular: Rate and Rhythm: Normal rate and regu lar rhythm. Heart sounds: No murmur. No friction rub. No gallop. Comments: Cap refill > 2 sec ue. 2+ d p pt rad ulna bilat if limbs fully present Pulmonary: Breath sounds: No wheezing or rales. Chest: Chest wall: No tenderness. Abdominal: General: Bowel sounds are normal. Palpations: Abdomen is soft. Tenderness: There is no abdominal ten derness. There is no guarding or rebound. Comments: Neg de leon, rovsing. No cva ttp bilat. No tympani or mass inc luding no hepatmegaly nor splenomegaly nor throbbing midline abdominal mass. Musculoskeletal: General: No tenderness. Skin: General: Skin is warm and dry. Comments: No pallor, lacerations, abr asions, contusions, rash, pallor, erythema, calor, dolor, crepitus, fluctuance, splinter hemorrhages, osler node, nor janeway spot. Neurological: Mental Status: He is alert. Motor: No abnormal muscle tone. Comments: No c/t/l/s spine ttp ED Course ED Course as of Jan 29 1553 Tue Dec 31, 2019 1358 Not stable for transfer [BB] [address] Zendejas, endocrinology. [SE] 1412 CXR: atel; no effusion nor ptx; abn l XR Chest 1 Vw Portable [BB] 1657 Pt accepted for admission under Dr. Ifeanyi Farmer. [SE] 1706 Upon reevaluation, the pt is melyin g better. [SE] ED Course User Index [BB] Fady Ramos MD [SE] Skyla Foy Clinical Impressions as of Jan 29 1553 Abdominal pain, acute, generalized - acu te, onset at home, initial encounter Severe dehydration - acute, onset at [place], initial encounter Hypotension, unspecified hypotension typ e - acute, onset at home, initial encounter Diarrhea, unspecified type - acute, onse t at home, initial encounter Hyperglycemia - acute, onset at home, in itial encounter MDM MDM Labs Radiology No results found. Procedures ECG 12 lead Date/Time: 12/31/2019 5:48 PM Performed by: Fady Ramos MD Authorized by: Fady Ramos MD ECG reviewed by ED Physician in the abse nce of a photonics technician: yes Interpretation: Interpretation: abnormal Rate: ECG rate: 81 ECG rate assessment: normal Rhythm: Rhythm: sinus rhythm QRS: QRS axis: Normal QRS intervals: Normal Conduction: Conduction: abnormal Abnormal conduction: LAFB Abnormal conduction comment: RSR' ST segments: ST segments: Normal Critical Care Performed by: FADY RAMOS Authorized by: Fady RAMOS Critical care provider statement: Critical care time (minutes): 85 Critical care was necessary to treat o r prevent imminent or life-threatening deterioration of the following conditions: Hypotension Critical care was time spent personall y by me on the following activities: Ordering and performing treatments and interventions, ordering and review of laboratory studies, ordering and review of radiographic studies, pulse oximetry, re -evaluation of patient's condition, review of old charts, obtaining history from patient or surrogate, development of treatment plan with patient or surrogate, discussions with consultants, evaluation of patient's response to treatment, examination of patient and discussions with primary provider Differential Diagnoses This patient has a differential diagnosi s that includes but is not limited to: AGE, v colitis, v diverticulitis, v dumping syndrome, v DKA, v HHNKS. Final Diagnoses Final diagnoses: Abdominal pain, acute, generalized Severe dehydration Hypotension, unspecified hypotension typ e Diarrhea, unspecified type Hyperglycemia Disposition This patient has a disposition of Admit. Disposition: Admission Condition: Serious Patient Progress: Unchanged Risk of complications, morbidity, or mor tality is: Presenting problems: high Diagnostic procedures: high Management options: high ED Attestations Scribe Attestation: This document is rec orded by Skyla Foy acting as a scribe under the direction and presence of Fady Ramos MD. Provider attestation of scribe: Fady Ramos MD: I personally performed the services recorded by the scribe in my presence. I confirm the scribe's documentation has been reviewed by me to accurately record my work, treatment, procedures, and medical decision making. INTERPRETATIONS OF LABS AND IMAGING Labs Reviewed CBC WITH PLATELET AND DIFFERENTIAL - Abn ormal; Notable for the following components: Result Value RBC 4.33 (*) HGB 13.7 (*) Neutrophils 73.1 (*) Lymphocytes 18.5 (*) All other components within normal limi ts COMPREHENSIVE METABOLIC PANEL - Abnormal ; Notable for the following components: Sodium 121 (*) Potassium 5.2 (*) Chloride 83 (*) CO2 17 (*) Anion gap 21@ANIO (*) BUN 50 (*) Creatinine 4.20 (*) Glucose 796 (*) Albumin 3.1 (*) All other components within normal limi ts Narrative: LACID AND GLU results called to and re ad back by MARCIE RAYMOND/OSMEL(name/locatio n)at 12/31/2019 13:26 (date/time) by PR1. ESTIMATED GFR - Abnormal; Notable for th e following components: Estimated GFR 14 (*) All other components within normal limi ts Narrative: LACID results called to and read back b y MARCIE RAYMOND/OSMEL(name/location)at 12/31/2019 13:26 (date /time) by PR1. URINALYSIS SCREEN AND MICROSCOPY, WITH R EFLEX TO CULTURE - Abnormal; Notable for the following components: Glucose, UA 3+ (*) Blood, UA Small (*) All other components within normal limi ts LACTIC ACID LEVEL - Abnormal; Notable fo r the following components: Lactic acid 5.6 (*) All other components within normal limi ts DKA ELECTROLYTES AND GLUCOSE TEST - Abno rmal; Notable for the following components: Sodium, whole blood 132 (*) CO2 calculated, whole blood 22 (*) Glucose, whole blood 562 (*) All other components within normal limi ts DKA ELECTROLYTES AND GLUCOSE TEST - Abno rmal; Notable for the following components: CO2 calculated, whole blood 22 (*) Glucose, whole blood 196 (*) All other components within normal limi ts DKA ELECTROLYTES AND GLUCOSE TEST - Abno rmal; Notable for the following components: Sodium, whole blood 132 (*) CO2 calculated, whole blood 21 (*) Glucose, whole blood 404 (*) All other components within normal limi ts CBC WITH PLATELET AND DIFFERENTIAL - Abn ormal; Notable for the following components: RBC 4.02 (*) HGB 12.8 (*) HCT 38.0 (*) Lymphocytes 20.9 (*) Immature granulocytes 1.3 (*) All other components within normal limi ts HEMOGLOBIN A1C - Abnormal; Notable for t he following components: Hemoglobin A1C 11.7 (*) All other components within normal limi ts DKA ELECTROLYTES AND GLUCOSE TEST - Abno rmal; Notable for the following components: Chloride, whole blood 113 (*) CO2 calculated, whole blood 22 (*) Anion gap, whole blood 3 (*) Glucose, whole blood 163 (*) All other components within normal limi ts DKA ELECTROLYTES AND GLUCOSE TEST - Abno rmal; Notable for the following components: CO2 calculated, whole blood 21 (*) Glucose, whole blood 141 (*) All other components within normal limi ts LACTIC ACID LEVEL - Abnormal; Notable fo r the following components: Lactic acid 3.6 (*) All other components within normal limi ts DKA ELECTROLYTES AND GLUCOSE TEST - Abno rmal; Notable for the following components: Chloride, whole blood 113 (*) CO2 calculated, whole blood 22 (*) Anion gap, whole blood 2 (*) Glucose, whole blood 174 (*) All other components within normal limi ts COMPREHENSIVE METABOLIC PANEL - Abnormal ; Notable for the following components: CO2 18 (*) BUN 29 (*) Creatinine 1.37 (*) Glucose 167 (*) Calcium 8.0 (*) Protein 6.1 (*) Albumin 2.4 (*) A/G ratio 0.6 (*) All other components within normal limi ts LIPID PANEL - Abnormal; Notable for the following components: Cholesterol 267 (*) Triglycerides 1,029 (*) HDL cholesterol 27 (*) All other components within normal limi ts LACTIC ACID LEVEL - Abnormal; Notable fo r the following components: Lactic acid 2.4 (*) All other components within normal limi ts BASIC METABOLIC PANEL - Abnormal; Notabl e for the following components: CO2 16 (*) BUN 34 (*) Creatinine 1.70 (*) Glucose 134 (*) Calcium 8.1 (*) All other components within normal limi ts ESTIMATED GFR - Abnormal; Notable for th e following components: Estimated GFR 41 (*) All other components within normal limi ts LACTIC ACID LEVEL - Abnormal; Notable fo r the following components: Lactic acid 2.8 (*) All other components within normal limi ts ESTIMATED GFR - Abnormal; Notable for th e following components: Estimated GFR 53 (*) All other components within normal limi ts CBC WITH PLATELET AND DIFFERENTIAL - Abn ormal; Notable for the following components: RBC 4.06 (*) HGB 12.7 (*) HCT 38.2 (*) Neutrophils 77.0 (*) Lymphocytes 17.6 (*) All other components within normal limi ts LACTIC ACID LEVEL - Abnormal; Notable fo r the following components: Lactic acid 2.7 (*) All other components within normal limi ts TRIGLYCERIDES - Abnormal; Notable for th e following components: Triglycerides 1,249 (*) All other components within normal limi ts BASIC METABOLIC PANEL - Abnormal; Notabl e for the following components: CO2 16 (*) Glucose 116 (*) Calcium 8.6 (*) All other components within normal limi ts COMPREHENSIVE METABOLIC PANEL - Abnormal ; Notable for the following components: Sodium 133 (*) Potassium 5.2 (*) CO2 16 (*) Glucose 207 (*) Calcium 8.5 (*) Protein 6.2 (*) Albumin 2.4 (*) A/G ratio 0.6 (*) All other components within normal limi ts CBC WITH PLATELET AND DIFFERENTIAL - Abn ormal; Notable for the following components: HGB 13.8 (*) Neutrophils 70.2 (*) Lymphocytes 18.2 (*) Eosinophils 5.5 (*) All other components within normal limi ts TRIGLYCERIDES - Abnormal; Notable for th e following components: Triglycerides 1,341 (*) All other components within normal limi ts BASIC METABOLIC PANEL - Abnormal; Notabl e for the following components: Sodium 134 (*) CO2 17 (*) Glucose 216 (*) All other components within normal limi ts TRIGLYCERIDES - Abnormal; Notable for th e following components: Triglycerides 1,043 (*) All other components within normal limi ts BASIC METABOLIC PANEL - Abnormal; Notabl e for the following components: Sodium 133 (*) CO2 18 (*) Glucose 222 (*) All other components within normal limi ts COMPREHENSIVE METABOLIC PANEL - Abnormal ; Notable for the following components: CO2 18 (*) Glucose 153 (*) Albumin 2.7 (*) All other components within normal limi ts CBC WITH PLATELET AND DIFFERENTIAL - Abn ormal; Notable for the following components: Neutrophils 74.4 (*) Lymphocytes 15.5 (*) All other components within normal limi ts TRIGLYCERIDES - Abnormal; Notable for th e following components: Triglycerides 858 (*) All other components within normal limi ts CBC WITH PLATELET AND DIFFERENTIAL - Abn ormal; Notable for the following components: HGB 13.6 (*) Lymphocytes 23.2 (*) All other components within normal limi ts BASIC METABOLIC PANEL - Abnormal; Notabl e for the following components: CO2 21 (*) Glucose 127 (*) All other components within normal limi ts TRIGLYCERIDES - Abnormal; Notable for th e following components: Triglycerides 603 (*) All other components within normal limi ts CBC WITH PLATELET AND DIFFERENTIAL - Abn ormal; Notable for the following components: RBC 4.21 (*) HGB 13.2 (*) HCT 39.7 (*) Lymphocytes 24.0 (*) All other components within normal limi ts BASIC METABOLIC PANEL - Abnormal; Notabl e for the following components: CO2 21 (*) Glucose 104 (*) All other components within normal limi ts MANUAL DIFFERENTIAL - Abnormal; Notable for the following components: Lymphocytes 24.0 (*) All other components within normal limi ts TRIGLYCERIDES - Abnormal; Notable for th e following components: Triglycerides 402 (*) All other components within normal limi ts CBC WITH PLATELET AND DIFFERENTIAL - Abn ormal; Notable for the following components: RBC 4.28 (*) HGB 13.4 (*) Neutrophils 71.0 (*) Lymphocytes 19.5 (*) All other components within normal limi ts COMPREHENSIVE METABOLIC PANEL - Abnormal ; Notable for the following components: CO2 20 (*) Glucose 236 (*) Albumin 3.1 (*) All other components within normal limi ts POC GLUCOSE - Abnormal; Notable for the following components: POC glucose >600 (*) All other components within normal limi ts POC GLUCOSE - Abnormal; Notable for the following components: POC glucose >600 (*) All other components within normal limi ts POC GLUCOSE - Abnormal; Notable for the following components: POC glucose >600 (*) All other components within normal limi ts POC GLUCOSE - Abnormal; Notable for the following components: POC glucose 463 (*) All other components within normal limi ts POC GLUCOSE - Abnormal; Notable for the following components: POC glucose 369 (*) All other components within normal limi ts POC GLUCOSE - Abnormal; Notable for the following components: POC glucose 239 (*) All other components within normal limi ts POC GLUCOSE - Abnormal; Notable for the following components: POC glucose 137 (*) All other components within normal limi ts POC GLUCOSE - Abnormal; Notable for the following components: POC glucose 130 (*) All other components within normal limi ts POC GLUCOSE - Abnormal; Notable for the following components: POC glucose 151 (*) All other components within normal limi ts POC GLUCOSE - Abnormal; Notable for the following components: POC glucose 155 (*) All other components within normal limi ts POC GLUCOSE - Abnormal; Notable for the following components: POC glucose 246 (*) All other components within normal limi ts POC GLUCOSE - Abnormal; Notable for the following components: POC glucose 147 (*) All other components within normal limi ts POC GLUCOSE - Abnormal; Notable for the following components: POC glucose 240 (*) All other components within normal limi ts POC GLUCOSE - Abnormal; Notable for the following components: POC glucose 155 (*) All other components within normal limi ts POC GLUCOSE - Abnormal; Notable for the following components: POC glucose 158 (*) All other components within normal limi ts POC GLUCOSE - Abnormal; Notable for the following components: POC glucose 132 (*) All other components within normal limi ts POC GLUCOSE - Abnormal; Notable for the following components: POC glucose 121 (*) All other components within normal limi ts POC GLUCOSE - Abnormal; Notable for the following components: POC glucose 164 (*) All other components within normal limi ts POC GLUCOSE - Abnormal; Notable for the following components: POC glucose 172 (*) All other components within normal limi ts POC GLUCOSE - Abnormal; Notable for the following components: POC glucose 163 (*) All other components within normal limi ts POC GLUCOSE - Abnormal; Notable for the following components: POC glucose 134 (*) All other components within normal limi ts POC GLUCOSE - Abnormal; Notable for the following components: POC glucose 144 (*) All other components within normal limi ts POC GLUCOSE - Abnormal; Notable for the following components: POC glucose 127 (*) All other components within normal limi ts POC GLUCOSE - Abnormal; Notable for the following components: POC glucose 130 (*) All other components within normal limi ts POC GLUCOSE - Abnormal; Notable for the following components: POC glucose 118 (*) All other components within normal limi ts POC GLUCOSE - Abnormal; Notable for the following components: POC glucose 111 (*) All other components within normal limi ts POC GLUCOSE - Abnormal; Notable for the following components: POC glucose 100 (*) All other components within normal limi ts POC GLUCOSE - Abnormal; Notable for the following components: POC glucose 157 (*) All other components within normal limi ts POC GLUCOSE - Abnormal; Notable for the following components: POC glucose 146 (*) All other components within normal limi ts POC GLUCOSE - Abnormal; Notable for the following components: POC glucose 154 (*) All other components within normal limi ts POC GLUCOSE - Abnormal; Notable for the following components: POC glucose 178 (*) All other components within normal limi ts POC GLUCOSE - Abnormal; Notable for the following components: POC glucose 210 (*) All other components within normal limi ts POC GLUCOSE - Abnormal; Notable for the following components: POC glucose 217 (*) All other components within normal limi ts POC GLUCOSE - Abnormal; Notable for the following components: POC glucose 203 (*) All other components within normal limi ts POC GLUCOSE - Abnormal; Notable for the following components: POC glucose 174 (*) All other components within normal limi ts POC GLUCOSE - Abnormal; Notable for the following components: POC glucose 219 (*) All other components within normal limi ts POC GLUCOSE - Abnormal; Notable for the following components: POC glucose 201 (*) All other components within normal limi ts POC GLUCOSE - Abnormal; Notable for the following components: POC glucose 221 (*) All other components within normal limi ts POC GLUCOSE - Abnormal; Notable for the following components: POC glucose 195 (*) All other components within normal limi ts POC GLUCOSE - Abnormal; Notable for the following components: POC glucose 244 (*) All other components within normal limi ts POC GLUCOSE - Abnormal; Notable for the following components: POC glucose 223 (*) All other components within normal limi ts POC GLUCOSE - Abnormal; Notable for the following components: POC glucose 210 (*) All other components within normal limi ts POC GLUCOSE - Abnormal; Notable for the following components: POC glucose 218 (*) All other components within normal limi ts POC GLUCOSE - Abnormal; Notable for the following components: POC glucose 230 (*) All other components within normal limi ts POC GLUCOSE - Abnormal; Notable for the following components: POC glucose 216 (*) All other components within normal limi ts POC GLUCOSE - Abnormal; Notable for the following components: POC glucose 147 (*) All other components within normal limi ts POC GLUCOSE - Abnormal; Notable for the following components: POC glucose 146 (*) All other components within normal limi ts POC GLUCOSE - Abnormal; Notable for the following components: POC glucose 195 (*) All other components within normal limi ts POC GLUCOSE - Abnormal; Notable for the following components: POC glucose 207 (*) All other components within normal limi ts POC GLUCOSE - Abnormal; Notable for the following components: POC glucose 153 (*) All other components within normal limi ts POC GLUCOSE - Abnormal; Notable for the following components: POC glucose 124 (*) All other components within normal limi ts POC GLUCOSE - Abnormal; Notable for the following components: POC glucose 129 (*) All other components within normal limi ts POC GLUCOSE - Abnormal; Notable for the following components: POC glucose 132 (*) All other components within normal limi ts POC GLUCOSE - Abnormal; Notable for the following components: POC glucose 155 (*) All other components within normal limi ts POC GLUCOSE - Abnormal; Notable for the following components: POC glucose 145 (*) All other components within normal limi ts POC GLUCOSE - Abnormal; Notable for the following components: POC glucose 198 (*) All other components within normal limi ts POC GLUCOSE - Abnormal; Notable for the following components: POC glucose 157 (*) All other components within normal limi ts POC GLUCOSE - Abnormal; Notable for the following components: POC glucose 336 (*) All other components within normal limi ts POC GLUCOSE - Abnormal; Notable for the following components: POC glucose 253 (*) All other components within normal limi ts POC GLUCOSE - Abnormal; Notable for the following components: POC glucose 217 (*) All other components within normal limi ts POC GLUCOSE - Abnormal; Notable for the following components: POC glucose 183 (*) All other components within normal limi ts POC GLUCOSE - Abnormal; Notable for the following components: POC glucose 208 (*) All other components within normal limi ts POC GLUCOSE - Abnormal; Notable for the following components: POC glucose 223 (*) All other components within normal limi ts POC GLUCOSE - Abnormal; Notable for the following components: POC glucose 142 (*) All other components within normal limi ts POC GLUCOSE - Abnormal; Notable for the following components: POC glucose 112 (*) All other components within normal limi ts POC GLUCOSE - Abnormal; Notable for the following components: POC glucose 104 (*) All other components within normal limi ts POC GLUCOSE - Abnormal; Notable for the following components: POC glucose 110 (*) All other components within normal limi ts POC GLUCOSE - Abnormal; Notable for the following components: POC glucose 137 (*) All other components within normal limi ts POC GLUCOSE - Abnormal; Notable for the following components: POC glucose 143 (*) All other components within normal limi ts POC GLUCOSE - Abnormal; Notable for the following components: POC glucose 139 (*) All other components within normal limi ts POC GLUCOSE - Abnormal; Notable for the following components: POC glucose 133 (*) All other components within normal limi ts POC GLUCOSE - Abnormal; Notable for the following components: POC glucose 119 (*) All other components within normal limi ts POC GLUCOSE - Abnormal; Notable for the following components: POC glucose 144 (*) All other components within normal limi ts POC GLUCOSE - Abnormal; Notable for the following components: POC glucose 189 (*) All other components within normal limi ts POC GLUCOSE - Abnormal; Notable for the following components: POC glucose 292 (*) All other components within normal limi ts POC GLUCOSE - Abnormal; Notable for the following components: POC glucose 157 (*) All other components within normal limi ts POC GLUCOSE - Abnormal; Notable for the following components: POC glucose 117 (*) All other components within normal limi ts POC GLUCOSE - Abnormal; Notable for the following components: POC glucose 156 (*) All other components within normal limi ts POC GLUCOSE - Abnormal; Notable for the following components: POC glucose 151 (*) All other components within normal limi ts POC GLUCOSE - Abnormal; Notable for the following components: POC glucose 151 (*) All other components within normal limi ts POC GLUCOSE - Abnormal; Notable for the following components: POC glucose 129 (*) All other components within normal limi ts POC GLUCOSE - Abnormal; Notable for the following components: POC glucose 175 (*) All other components within normal limi ts POC GLUCOSE - Abnormal; Notable for the following components: POC glucose 155 (*) All other components within normal limi ts POC GLUCOSE - Abnormal; Notable for the following components: POC glucose 151 (*) All other components within normal limi ts POC GLUCOSE - Abnormal; Notable for the following components: POC glucose 135 (*) All other components within normal limi ts POC GLUCOSE - Abnormal; Notable for the following components: POC glucose 173 (*) All other components within normal limi ts RESPIRATORY PATHOGEN PANEL BLOOD CULTURE, AEROBIC & ANAEROBIC BLOOD CULTURE, AEROBIC & ANAEROBIC GASTROINTESTINAL PANEL URINE CULTURE VENOUS BLOOD GAS TROPONIN TROPONIN B NATRIURETIC PEPTIDE Narrative: LACID AND GLU results called to and re ad back by MARCIE RAYMOND/OSMEL(name/locatio n)at 12/31/2019 13:26 (date/time) by PR1. PROTHROMBIN TIME WITH INR PARTIAL THROMBOPLASTIN TIME (PTT) MAGNESIUM LEVEL PHOSPHORUS LEVEL TROPONIN LIPASE LEVEL AMYLASE LEVEL BETA HYDROXYBUTYRATE ESTIMATED GFR MAGNESIUM LEVEL LACTIC ACID LEVEL IONIZED CALCIUM AMYLASE LEVEL LIPASE LEVEL ESTIMATED GFR ESTIMATED GFR ESTIMATED GFR MAGNESIUM LEVEL ESTIMATED GFR ESTIMATED GFR MAGNESIUM LEVEL MAGNESIUM LEVEL ESTIMATED GFR MAGNESIUM LEVEL PHOSPHORUS LEVEL ESTIMATED GFR CBC WITH PLATELET AND DIFFERENTIAL COMPREHENSIVE METABOLIC PANEL BETA HYDROXYBUTYRATE LACTIC ACID LEVEL LACTIC ACID LEVEL LACTIC ACID LEVEL POTASSIUM LEVEL MAGNESIUM LEVEL TRIGLYCERIDES POC GLUCOSE CT Abdomen Pelvis Wo Contrast Final Result XR Chest 1 Vw Portable Final Result MEDICATIONS GIVEN Medications sodium chloride 0.9 % bolus 3,000 mL (0 mL intravenous Stopped 12/31/19 1339) insulin regular (HumuLIN-R) injection 10 Units (10 Units intravenous Given 12/31/19 1323) sodium chloride 0.9 % bolus 2,000 mL (0 mL intravenous Stopped 01/01/20 0425) cefepime (MAXIPIME) 1 g in sodium chlori de 0.9 % MBP 50 mL IVPB (0 g intravenous Stopped 12/31/19 190) vancomycin (VANCOCIN) 1,000 mg in sodium chloride 0.9% 250 mL IVPB (0 mg intravenous Stopped 01/01/20 0626) hydrocortisone sodium succinate (Solu-CO RTEF) injection 100 mg (100 mg intravenous Given 12/31/19 1836) sodium chloride 0.9 % bolus 1,000 mL (0 mL intravenous Stopped 01/01/20 0615) potassium chloride (MICRO-K) CR capsule 20 mEq (20 mEq oral Given 01/01/204) lactated ringers bolus 500 mL (500 mL in travenous New Bag 01/01/202034) potassium chloride (MICRO-K) CR capsule 40 mEq (40 mEq oral Given 01/01/202142) Or potassium chloride (KLOR-CON) packet 40 mEq ( oral See Alternative 01/01/202142) magnesium sulfate 3g/100mL NS IVPB (franklin ix) (3 g intravenous New Bag 01/02/20 162) magnesium sulfate 3g/100mL NS IVPB (franklin ix) (0 g intravenous Stopped 01/04/201899) gabapentin (NEURONTIN) capsule 400 mg (4 00 mg oral Given 01/06/20 1507) ED MD RECHECKS Billers: See above for interventions giv en to patient in ED for: Final diagnoses: Abdominal pain, acute, generalized Severe dehydration Hypotension, unspecified hypotension typ e Diarrhea, unspecified type Hyperglycemia ED VISIT SUMMARY Plan: Any labs, imaging, & meds listed a kiersten w/ ED physician reassessment. If no labs, imaging, or meds are listed then none were given. RN notes & vital signs reviewed. At [facility] t 2 sets of vitals were taken & reviewed if the patient was admitted. I reviewed the pt's PMH, PSH, FH, SH, Meds and Allergy history. 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 Prior records sought & summarized confir barbara history of: Past Medical History: Diagnosis Date Anxiety Back pain Colon polyp Depression Diabetes mellitus (HCC) GERD (gastroesophageal reflux disease) Hyperlipidemia Hypertension Type 2 diabetes mellitus (HCC) At least 1 MD bedside reassessment occur red to update patient, determine response to treatment & recheck the patent s wellbeing. INTERPRETATIONS (additional)/Amount and/ or Complexity of Data Reviewed: I reviewed the Pulse Oximetry and it is wnl by my independent interpretation. If patient was admitted to tele, then I reviewed the monitor and storage bin tender on the patient All labs returned while pt in ED were wn l by my independent interpretation unless otherwise noted. All lab, imaging, ECG, other tracing, or specimen results interpretations are by my independent review & interpretation in the medicine & radiology section of CPT. DIAGNOSES Final diagnoses: Abdominal pain, acute, generalized Severe dehydration Hypotension, unspecified hypotension typ e Diarrhea, unspecified type Hyperglycemia All diagnoses are modified as: Acute, onset at home, initial encounter unless noted. All diagnoses are New and require Additi onal Workup (unless otherwise noted). DISCUSSIONS WITH CONSULTANTS AND PATIENT /PATIENT PROXY All consultants listed agreed with ED A& P, unless otherwise noted. All pt's questions & concerns addressed & answered.Pt told, understands & agrees with assessment and plan including dispo.DDX incl causes considered but not specified given they were low pr ob or unlikely to cause immediate or disability.BAUMAN for unlisted unlikely or benign causes would likely yielded harm>benefit. BLOOD PRESSURE COUNSELING: I recommended the patient have their BP screened at follow up with their PCP in >1 day and < 4 weeks, that the pt or pt's proxy discuss the pt's BP with their PCP at that visit, and recommended lifestyle intervention including increased physical activity. Advanced care plan in cluding surrogate discussed with patient and entered into medical record. I have documented a list of current medications using all immediate resources available on the date of the encounter and that list is here: No current facility-administered medications for this encounter. Current Outpatient Medications: atorvastatin (LIPITOR) 80 MG tablet, Take 1 tablet (80 mg total) by mouth daily for 30 days., Disp: 30 tablet, Rfl: 0 DULoxetine (CYMBALTA) 30 MG capsule, Take 1 capsule (30 mg total) by mouth daily for 30 days., Disp: 30 capsule, Rfl: 0 insulin GLARGINE (LANTUS) 100 unit/mL injection (vial), Inject 26 Units under the skin 2 (two) times a day for 30 days., Disp: 15.6 mL, Rfl: 0 insulin lispro (HumaLOG) 100 unit/mL injection, Inject 14 Units under the skin 3 (three) times a day before meals for 30 days., Disp: 10 mL, Rfl: 0 lisinopriL (PRINIVIL) 5 mg tablet, Take 0.5 tablets (2.5 mg total) by mouth daily for 30 days., Disp: 15 tablet, Rfl: 0 fenofibrate (LOFIBRA) 160 MG tablet, Take 160 mg by mouth daily., Disp: , Rfl: naltrexone (DEPADE) 50 mg tablet, Take 50 mg by mouth daily., Disp: , Rfl: gabapentin (NEURONTIN) 600 mg tablet, Take 600 mg by mouth 2 (two) times a day. , Disp: , Rfl: aspirin (ECOTRIN) 81 MG enteric coated tablet, Take 81 mg by mouth daily., Disp: , Rfl: clopidogrel (PLAVIX) 75 mg tablet, Take 75 mg by mouth daily., Disp: , Rfl: pen needle, diabetic (BD ULTRA-FINE TIERA PEN NEEDLE) 32 gauge x 5/32" needle, Use 4 needles a day. Dx: E11.65, Disp: 400 each, Rfl: 3 clonAZEPAM (KlonoPIN) 1 MG tablet, Take 1 mg by mouth 2 (two) times a day as needed for seizures. , Disp: , Rfl: omeprazole (PriLOSEC) 40 MG capsule, Take 40 mg by mouth 2 (two) times a day., Disp: , Rfl: insulin syringe-needle U-100 1 mL 31 gauge x 5/16 syringe, Use 1 syringe TID., Disp: 270 each, Rfl: 1 ONETOUCH DELICA LANCETS 33 gauge misc, CHECK GLUCOSE TWICE A DAY, Disp: 100 each, Rfl: 3 PROAIR HFA 90 mcg/actuation inhaler, USE 2 PUFFS NEEDED EVERY 4 HRS, NEEDED FOR INHALATION 30 DAYS, Disp: , Rfl: 4 SPIRIVA RESPIMAT 2.5 mcg/actuation mist, TAKE 2 PUFFS BY MOUTH EVERY DAY, Disp: , Rfl: 3 traZODone (DESYREL) 100 MG tablet, Take 50 mg by mouth nightly. , Disp: , Rfl: If controlled substance is ordered or pr escribed, I consulted the [facility] database prior to ordering or prescribing the medication. Skyla Foy 12/31/19 [id number] Fady Ramos MD 01/30/20 1557 Performing Organization Address City/State/Zipcode Phone Number [facility] M[facility] [address] [place] [address] Lipid panel (01/01/2020 4:21 AM SPONGE MAKER) [facility] Signature Cholesterol 267 (H) <200 mg/dL [facility] Triglycerides 1,029 (A) <150 mg/dL [facility] HDL cholesterol 27 (L) >40 mg/dL [facility] LDL cholesterol 80Comment: Result <100 mg/dL [place] obtained by direct YAZIDI LDL measurement [facility] Lipid panel SeeBelow [facility] interpretation Comment: YAZIDI Total Cholesterol (mg/dL) HOSPIT [place] <200 Desirable 200-239 Borderline-high >=240 High Triglycerides (mg/dL) <150 Normal 150-199 Borderline-high 200-499 High >=500 Very high HDL Cholesterol (mg/dL) <40 Low (male) <40 Low (female) LDL Cholesterol (mg/dL) <100 Optimal 100-129 Near or above optimal 130-159 Borderline-high 160-189 High >=190 Very high Risk Catergories that modify LDL goals. Risk Catergories LDL goal (mg/d L) CHD and CHD risk equivalent <100 (10-year risk >20%) Multiple (2+) risk factors <130 (10-year risk =<20%) 0-1 risk factors <160 (<10-year risk) Defining levels of lipids in metabolic syndrome Triglycerides >=150 mg/dL HDL Cholesterol Men <40 mg /dL Women <40 mg/ dL Non-HDL cholesterol is a second target for therapy in persons with high triglycerides (>=200 mg/dL) Specimen Plasma specimen Performing Organization Address City/[facility]/Zipcode Phone Number [facility] DEPARTMENT OF PATHOLOGY AND [address] [place], [place] [phone] [facility] [address] [place] [address] DKA electrolytes and glucose test (01/01/2020 2:28 AM SPONGE MAKER)Only the most recent of6 resultswithin the time period is included. Pathologist Sig nature Sodium, whole blood 137 135 - 148 mEq/L [facility] Potassium, whole 4.6 3.5 - 5.0 mEq/L [facility] Chloride, whole 113 (H) 98 - 112 mEq/L [facility] CO2 calculated, 22 (L) 24 - 31 mEq/L [facility] Anion gap, whole 2 (L) 5 - 20 mEq/L [facility] Glucose, whole blood 174 (H) 65 - 99 mg/dL [facility] Specimen Blood Performing Organization Address City/[facility]/Zipcode Phone Number [facility] DEPARTMENT OF PATHOLOGY AND [address] [place], [place] [address] [facility] [address] [place] [address] CT Abdomen Pelvis Wo Contrast (01/01/2020 2:09 AM SPONGE MAKER) Specimen Narrative Performed At Examination: CT ABDOMEN PELVIS WO CONT RAST HM RADIANT Clinical History: abd pain gen acute Comparison: None. Findings: CT scans are performed using radiation dose reduction techniques. Technical factors are evaluated and adjusted to ensu re appropriate moderation of exposure. Automated dose management te chnology is applied to adjust radiation exposure whi le achieving a diagnostic quality image. CT imaging was performed wit h iterative reconstruction techniques and/or automated exposure co ntrol to reduce radiation dose. CT scan of the abdomen and pelvis was performed withou t intravenous contrast. The liver, spleen, pancreas, and adrenal glands are un remarkable. The patient is status post cholecystectomy. Bilateral mild to moderate pelviectasis is seen, right greater than left. No urinary calculus is seen. The kidneys are oth erwise slightly atrophic. The appendix is nonvisualized. Scattered colonic diver ticuli are noted. No bowel thickening or fat stranding is seen. Prominen t fluid-filled loops of proximal small bowel are noted but not grossl y distended. No bowel dilatation is seen. No free air or fluid is seen. Urinary bl adder is unremarkable. The visualized lung bases are clear. IMPRESSION: 1. Mild to moderate bilateral pelviectasis, right grea ter than left but no hydroureter or urinary calculus is se en. Scattered colonic diverticuli without ev idence of inflammation. 3. Prominent fluid-filled loops of proximal small chance l may represent focal ileus or gastroenteritis. [facility]-[id number] Procedure Note Hm Interface, Radiology Results Incoming - 01/01/2020 2:22 AM SPONGE MAKER Examination: CT ABDOMEN PELVIS WO CONTRAST Clinical History: abd pain gen acute Comparison: None. Findings: CT scans are performed using radiation d ose reduction techniques. Technical factors are evaluated and adjusted to ensure appropriate moderation of exposure. Automated dose management technology is applied to adjust radiation exposure while achie ving a diagnostic quality image. CT imaging was performed with iterative reconstruction techniques and/or automated exposure control to reduce radiation dose. CT scan of the abdomen and pelvis was pe rformed without intravenous contrast. The liver, spleen, pancreas, and adrenal glands are unremarkable. The patient is status post cholecystectomy. Bilateral mild to moderate pelviectasis is seen, right greater than left. No urinary calculus is seen. The kidneys are otherwise slightly atrophic. The appendix is nonvisualized. Scattered colonic diverticuli are noted. No bowel thickening or fat stranding is seen. Prominent fluid-filled loops of proximal small bowel are noted but not grossly distended. No bowel dilatation is seen. No free air or fluid is seen. Urinary bl adder is unremarkable. The visualized lung bases are clear. IMPRESSION: 1. Mild to moderate bilateral pelviectas is, right greater than left but no hydroureter or urinary calculus is seen. Scattered colonic diverticuli without ev idence of inflammation. 3. Prominent fluid-filled loops of proxi mal small bowel may represent focal ileus or gastroenteritis. [facility]-[id number] Performing Organization Address City/State/Zipcode Phone Number [facility] [address] [place] [address] Troponin (12/31/2019 6:40 PM SPONGE MAKER)Only the most recent of3 resultswithin the time period is included. Troponin 0.018 0.000 - 0.040 [facility] Comment: ng/mL HOSPITAL In patients suspected of having a myocardial infarctio n, along with all other appropriate clinical measures and actions includ ing ECG and other diagnostics as appropriate, measure Ultra TnI at 0 hrs and at 3 hrs. Myocardial infarction VERY LIKELY The 0 hr TnI level is > 0.10 ng/mL Myocardial infarction LIKELY The 0 hr TnI level is > 0.04 ng/mL and 3 hr level is i ncreased or decreased by at least 0.020 ng/mL Myocardial infarction VERY UNLIKELY Both the 0 hr and 3 hr TnI levels <= 0.04 ng/mL(within normal limits) OR 0 hr is > 0.04 ng/mL and 3 hr is increased OR decreased by less than 0.020 ng/mL Specimen Plasma specimen Performing Organization Address City/State/Zipcode Phone Number [facility] DEPARTMENT OF PATHOLOGY AND [address] [place] [phone] [facility]ICINE [address] [address] Urinalysis screen and microscopy, with reflex to culture (12/31/2019 3:05 PM SPONGE MAKER) Pathologist Sig nature Specimen site Clean catch [facility] Color, UA Straw [facility] Appearance, UA Clear [facility] Specific gravity, 1.012 1.001 - 1.035 [facility] pH, UA 6.0 5.0 - 8.5 [facility] Protein, UA Negative Negative [facility] Glucose, UA 3+ (A) Negative [facility] Ketones, UA Negative Negative [facility] Bilirubin, UA Negative Negative [facility] Blood, UA Small (A) Negative [facility] Nitrite, UA Negative Negative [facility] Urobilinogen, UA <2.0 <2.0 [facility] Leukocyte esterase, Negative Negative [facility] WBC, UA 1 0 - 1 /HPF [facility] RBC, UA None seen 0 - 5 /HPF [facility] Bacteria, UA None seen None seen [facility] Yeast, UA None seen [facility] Yeast with None seen [facility] pseudohyphae, UA [facility] Hyaline casts, UA 3 /LPF [facility] Specimen Urine Performing Organization Address City/State/Zipcode Phone Number [facility] DEPARTMENT OF PATHOLOGY AND [address] [place] [address] [phone] [address] Urine culture (12/31/2019 3:05 PM SPONGE MAKER) Pathologist Sig nature Urine culture SEE COMMENTComment: [facility] Bacteriuria screen HOSPITAL negative. Specimen Performing Organization Address City/[facility] Phone Number [facility] DEPARTMENT OF PATHOLOGY AND [address] [place] [address] [phone] [address] Hemoglobin A1c (12/31/2019 2:56 PM SPONGE MAKER) Hemoglobin A1C 11.7 (H) 4.0 - 5.6 % [facility] Comment: HOSPITAL HbA1c cutoffs for diagnosing diabetes: 4.0% - 5.6% = normal 5.7% - 6.4% = increased risk for diabetes (prediabetes )9 >=6.5% = diabetes9 Goals for glycemic control (ADA 2016) < 7.0% Target for non adults with diabetes. More or less stringent targets may be appropriate for individual patients. <7.5% Target for Children and adolescents with type 1 diabetes. Specimen Blood Performing Organization Address City/State/Zipcode Phone Number [facility] DEPARTMENT OF PATHOLOGY AND [address] [place] [address] [phone] [address] XR Chest 1 Vw Portable (12/31/2019 1:10 PM SPONGE MAKER) Specimen Narrative Performed At EXAMINATION: XR CHEST 1 VW PORTABLE RADIANT CLINICAL HISTORY: hyperglycemia COMPARISON: Multiple prior chest radiographs, most rec ently dated 08/14/2014. IMPRESSION: Technique: Single portable chest radiograph. Please no te that the right costophrenic angle is outside the field- of-view. Lines/tube: None Cardiomediastinum: Postsurgical changes mediastinum. N o definite cardiomegaly. Lungs: Very low inspiratory volume. Bibasilar subsegme ntal atelectasis. No definite consolidative process identified or eviden ce of pulmonary edema. No pleural effusion. No pneumothorax and the fi eld-of-view given that the right costophrenic angle is not visualized. Bones: Midline sternotomy wires are present. The regio nal osseous structures appear stable. [facility]-[id number] Procedure Note Hm Interface, Radiology Results Incoming - 12/31/2019 1:48 PM SPONGE MAKER EXAMINATION: XR CHEST 1 VW PORTABLE CLINICAL HISTORY: hyperglycemia COMPARISON: Multiple prior chest radiogr aphs, most recently dated 08/14/2014. IMPRESSION: Technique: Single portable chest radiogr aph. Please note that the right costophrenic angle is outside the [id number]. Lines/tube: None Cardiomediastinum: Postsurgical changes mediastinum. No definite cardiomegaly. Lungs: Very low inspiratory volume. Biba silar subsegmental atelectasis. No definite consolidative process identified or evidence of pulmonary edema. No pleural effusion. No pneumothorax and the [id number] given that the right costophrenic angle is not visualized. Bones: Midline sternotomy wires are pres ent. The regional osseous structures appear stable. [facility]-[id number] Performing Organization Address City/State/Zipcode Phone Number [facility] [address] [place] [address] Respiratory pathogen panel (12/31/2019 12:47 PM SPONGE MAKER) Respiratory Negative for all pathogens tested: BARAK Mccallum pathogen panel Negative for Adenovirus [facility] Negative for Coronavirus HKU1 HOSPITAL Negative for Coronavirus NL63 Negative for Coronavirus 229E Negative for Coronavirus OC43 Negative for Human Metapneumovirus Negative for Rhinovirus/Enterovirus Negative for Influenza A Negative for Influenza A/H1 Negative for Influenza A/H3 Negative for Influenza A/H1-2009 Negative for Influenza B Negative for Parainfluenza Virus 1 Negative for Parainfluenza Virus 2 Negative for Parainfluenza Virus 3 Negative for Parainfluenza Virus 4 Negative for Respiratory Syncytial Virus Negative for Bordetella pertussis Negative for Chlamydophila pneumoniae Negative for Mycoplasma pneumoniae This real-time PCR assay detects the presence of nucle ic acids (RNA or DNA) for the respiratory pathogens liste d. A result of "Not-detected" does not exclude the possib ility of the presence of one or more pathogens at concentrat ions less than the detectable limits of the assay. Comment: Specimen Information Specimen Source: Nares Specimen Site: Left Specimen Nares - Left Performing Organization Address City/[facility]/Zipcode Phone Number [facility] DEPARTMENT OF PATHOLOGY AND [address] [place] [address] [phone] [address] Venous blood gas (12/31/2019 12:38 PM SPONGE MAKER) Pathologist [facility] pH, venous SEE 7.32 - 7.42 [facility] COMMENTComment: HOSPITAL Footnote--------- pCO2, venous SEE 45 - 51 mmHg [facility] COMMENTComment: HOSPITAL Footnote--------- pO2, venous SEE 25 - 40 mmHg [facility] COMMENTComment: HOSPITAL Footnote--------- Base excess, Footnote -2 - 2 meq/L [facility] venous Comment: HOSPITAL Unable to perform testing, specimen is __QNS. Recoll ect requested for _VBG (tests). __MARCIE RAYMOND noti fied by _AD at _ 12/31/2019 13:03 . Credit issued.AD O2 saturation, SEE 40 - 70 % [facility] venous COMMENTComment: HOSPITAL Footnote--------- Bicarbonate, Footnote 21.0 - 28.0 [facility] venous mmol/L HOSPITAL Specimen Blood Performing Organization Address City/[facility]/Zipcode Phone Number [facility] DEPARTMENT OF PATHOLOGY AND [address] [place] [address] [phone] [address] Partial thromboplastin time, activated (12/31/2019 12:31 PM SPONGE MAKER) Pathologist [facility] PTT 28.1 23.0 - 36.0 [facility] Comment: [facility] HOSPITAL PTT therapeutic range for unfractionated heparin is 61.0-112.0 seconds which corresponds to Anti-Xa 0.3-0.7 U/ml. Specimen Blood Performing Organization Address City/[facility] Cent[facility]ode Phone Number [facility] DEPARTMENT OF PATHOLOGY AND [address] [place] [address] [place] [phone] Prothrombin time with INR (12/31/2019 12:31 PM SPONGE MAKER) Prothrombin time 13.7 11.5 - 14.5 [facility] INR 1.0 [facility] [place] Comment: [facility] International Normalized Ratio (INR) is a [facility] monitoring tool for patients who are stable on oral anticoagulant therapy. An INR of 2.0-3.0 is suggested for deep vein thrombosis/pulmonary embolism. Specimen Blood Performing Organization Address [facility] Cent[facility]ode Phone Number [facility] DEPARTMENT OF PATHOLOGY AND [address] [place] [phone] B natriuretic peptide (12/31/2019 12:31 PM SPONGE MAKER) Pathologist [facility] BNP 29 0 - 100 pg/mL [facility] Specimen Blood Narrative Performed At [facility] results called to and read [facility] DEPARTM ENT OF PATHOLOGY AND GENOMIC back by MARCIE RAYMOND/OSMEL(name/location)at 12/31/2019 13:26 (date/time) by PR1. Performing Organization Address [facility] Phone Number [facility] DEPARTMENT OF PATHOLOGY AND [address] [place] [phone] POC glycosylated hemoglobin (Hb A1C) (12/31/2019 12:05 PM SPONGE MAKER)Only the most recent of2 resultswithin the time period is included. Pathologist Sig nature POC Hemoglobin A1C 12.3 % Specimen Blood Blood culture, aerobic & anaerobic (12/31/2019 11:40 AM SPONGE MAKER)Only the most recent of2 resultswithin the time period is included. Blood culture No growth after 5 days of incubation. 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
--- OUTSIDE RECORDS SUMMARY | 2020-04-13 19:16 | XMS REPORT | Clinical Summary ---
:1955 Author Organization [facility] Address [address] [place] [address] Care Team Providers Name Role Phone Bebeto Jaffe Primary Care Provider Haris Richardson Unavailable Allergies Active Allergy Reactions Severity Noted Date Comments Ibuprofen Hives 08/30/2018 Medications Medication Sig Dispensed Refills Start End Date Status Date ARIPiprazole Take 5 mg by mouth 0 Active (ABILIFY) 5 MG daily. tablet lansoprazole Take 30 mg by mouth 0 Active (PREVACID) 30 MG daily. capsule budesonide-formot Inhale 2 puffs by 0 Active avani (SYMBICORT) mouth via inhaler 2 160-4.5 (two) times daily. mcg/actuation inhaler insulin glargine Inject 10 Units 10 mL 0 Active (LANTUS) 100 subcutaneously 8 unit/mL injection nightly Use as directed. insulin glulisine Inject 30 Units 0 Active (APIDRA SOLOSTAR subcutaneously 3 U-100 INSULIN (three) times daily SUBQ) as needed. metFORMIN Take 1,000 mg by 0 Act blair (GLUCOPHAGE) 1000 mouth 2 (two) times MG tablet daily with breakfast and dinner. albuterol Take 1 ampule by 0 04/24/20 Dis continued (ACCUNEB) 0.63 nebulization every 19 mg/3 mL nebulizer 6 (six) hours as solution needed for Wheezing. aspirin 81 MG Take 1 tablet (81 0 09/11/20 chewable tablet mg total) by mouth 8 19 daily. atorvastatin Take 1 tablet (80 90 tablet 3 09/10/20 (LIPITOR) 80 MG mg total) by mouth 8 19 tablet nightly. clopidogrel Take 1 tablet (75 90 tablet 3 09/11/20 (PLAVIX) 75 mg mg total) by mouth 8 19 tablet daily. clonazePAM Take 0.5 tablets 30 tablet 0 04/24/20 Di scontinued (KLONOPIN) 0.5 MG (0.25 mg total) by 8 19 tablet mouth 2 (two) times daily. Max Daily Amount: 0.5 mg metoprolol Take 1 tablet (25 60 tablet 0 04/24/20 D iscontinued (LOPRESSOR) 25 MG mg total) by mouth 8 19 tablet 2 (two) times daily. oxyCODONE-acetami Take 1 tablet by 0 04/24 Discontinued nophen (PERCOCET) mouth 3 (three) 19 10-325 mg per times daily. tablet traMADol (ULTRAM) Take 1 tablet (50 30 tablet 0 03/31 Discontinued 50 mg tablet mg total) by mouth 9 every 6 (six) hours as needed for up to 10 days. Max Daily Amount: 200 mg furosemide Take 0.5 tablets 30 tablet 0 04/24/20 Di scontinued (LASIX) 20 MG (10 mg total) by 9 19 tablet mouth daily for 30 days. metoprolol 37.5 Take 37.5 mg by 60 tablet 0 05/24/20 mg Tab mouth 2 (two) times 9 daily for 30 days. bumetanide Take 1 tablet (1 mg 60 tablet 0 05/24/20 (BUMEX) 1 MG total) by mouth 2 9 19 tablet (two) times daily for 30 days. HYDROcodone-aceta Take 2 tablets by 30 tablet 0 07/04/18 minophen (NORCO mouth every 6 (six) 9 10-325) 10-325 mg hours as needed for per tablet up to 10 days. Max Daily Amount: 8 tablets mINOCYCLine Take 1 capsule (100 10 capsule 0 0 (MINOCIN,DYNACIN) mg total) by mouth 9 19 100 MG capsule every 12 (twelve) hours for 5 days. bumetanide Take 1 tablet (2 mg 60 tablet 0 05/25/20 (BUMEX) 2 MG total) by mouth 2 9 19 tablet (two) times daily for 30 days. Active Problems Problem Noted Date Acute diastolic heart failure 04/22/2019 Hematoma of leg, left, subsequent encounter 04/22/2019 Fluid overload 04/22/2019 Pneumonia 04/21/2019 Cellulitis, leg 04/21/2019 Severe sepsis 04/21/2019 Acute respiratory failure with hypoxia 04/21/2019 Cellulitis and abscess of leg 04/21/2019 Sepsis 04/21/2019 Vasogenic shock 04/05/2019 Hyperglycemia 04/05/2019 COPD (chronic obstructive pulmonary disease) 9 High cholesterol 04/05/2019 Anxiety 04/05/2019 CAD (coronary artery disease) 04/03/2019 SOB (shortness of breath) 10/04/2018 Hypotension 08/30/2018 S/P CABG x [address] Pham 04/04/19 Respiratory insufficiency Hemorrhagic shock Encounters Date Type Specialty Care Team Description 04/22/2019 Orders Only General Internal Medicine 04/21/2019 - Hospital Encounter Cardiology Zachery Ramirez Acute res piratory failure with hypoxia (HCC) (Primary Dx); 04/25/2019 MD Boyd Severe sepsis (HCC); Garrison Jiménez Cellulitis of left lower extremity; MD Elisha Coronary artery disease involving chipewwa heart with unstable angina pectoris, unspecified vessel or lesion type (HCC); Pretty, Acute diastolic heart failure (HCC); MD Kaushik Hypervolemia, u nspecified hypervolemia type; Hematoma of leg , left, subsequent encounter; S/P CABG x 3; SOB (shortness of breath); Acute on chroni c diastolic (congestive) heart failure (HCC) 04/21/2019 Travel after 04/13/2019 Social History Tobacco Use Types Packs/Day Years [...] Vital Sign Reading Time Taken Blood Pressure 149/86 04/25/2019 10:43 AM CDT Pulse 84 04/25/2019 11:59 AM CDT Temperature 37.1 C (98.8 F) 04/25/2019 10:43 AM CDT Respiratory Rate 20 04/25/2019 11:59 AM CDT Oxygen Saturation 96% 04/25/2019 11:59 AM CDT Inhaled Oxygen Concentration 40% 04/22/2019 11:26 PM CDT Weight 104.7 kg (230 lb 13.2 oz) 04/25/2019 8: 30 AM CDT Height 170.2 cm (5' 7") 04/21/2019 3:24 PM CDT Body Mass Index 36.15 04/25/2019 8:30 AM CDT Plan of Treatment Health Maintenance Due Date Last Done Comments COLON CANCER SCREENING COLONOSCOPY 1955 DIABETIC EYE EXAM 1965 PNEUMOCOCCAL 65+ LOW/MEDIUM RISK (1 of 2 - PCV13) 09/29/2018 09/29/2017 HEMOGLOBIN A1C 10/23/2019 04/23/2019 MEDICARE ANNUAL WELLNESS (YEAR 2 or FIRST YEAR if no 10/31/2019 IPPE) INFLUENZA VACCINE (Season Ended) 2020 08/10/2016 Implants Implanted Type Area Transition Lead Device Identifier Shelf Model / Expiration Serial / Lot Date Pledget Pre Punched Sft 7x8mm [id number] - [id number] IMPLANTS Aorta COVIDIEN:US 01/27/2023 [id number] / Implanted: Qty: 3 on 04/04/2019 by Alvin Pham MD SURG:SYNETURE / [id number] [employer] [id number] 05/01/2020 49 [id number] / Implanted: Qty: 1 on 09/01/2018 by Renato Montano MD SCIENTIFIC / [id number] [employer] [id number] 03/06/2020 [id number] / Implanted: Qty: 1 on 09/01/2018 by Renato Montano MD SCIENTIFIC / [id number] Procedures Procedure Name Priority Date/Time Associated Comments Diagnosis RHYTHM STRIP - SCAN 04/29/2019 3:41 PM CDT RHYTHM STRIP - SCAN 04/26/2019 10:30 AM CDT POCT-GLUCOSE METER Routine 04/25/2019 12:05 Resul ts for this PM CDT procedure are i n the results section. POCT-GLUCOSE METER Routine 04/25/2019 6:59 Resul ts for this AM CDT procedure are i n the results section. POCT-GLUCOSE METER Routine 04/24/2019 9:05 Resul ts for this PM CDT procedure are i n the results section. POCT-GLUCOSE METER Routine 04/24/2019 5:17 Resul ts for this PM CDT procedure are i n the results section. POCT-GLUCOSE METER Routine 04/24/2019 12:16 Resul ts for this PM CDT procedure are i n the results section. XR CHEST 1 VIEW Routine 04/24/2019 8:09 Results for this PORTABLE/BEDSIDE AM CDT procedure a re in the results section. POCT-GLUCOSE METER Routine 04/24/2019 7:38 Resul ts for this AM CDT procedure are i n the results section. CBC W/PLT COUNT & AUTO Routine 04/24/2019 2:52 R esults for this DIFFERENTIAL AM CDT procedure are i n the results section. MAGNESIUM Routine 04/24/2019 2:52 Results for this AM CDT procedure are i n the results section. BASIC METABOLIC PANEL Routine 04/24/2019 2:52 Re sults for this (7) AM CDT procedure are i n the results section. CBC W/PLT COUNT & AUTO Routine 04/24/2019 2:52 R esults for this DIFFERENTIAL AM CDT procedure are i n the results section. POCT-GLUCOSE METER Routine 04/23/2019 9:35 Resul ts for this PM CDT procedure are i n the results section. POCT-GLUCOSE METER Routine 04/23/2019 5:36 Resul ts for this PM CDT procedure are i n the results section. MAGNESIUM Routine 04/23/2019 2:35 Results for this PM CDT procedure are i n the results section. POTASSIUM Routine 04/23/2019 2:35 Results for this PM CDT procedure are i n the results section. REPORT OF PROCEDURE - 04/23/2019 12:32 ENDOSCOPY SCAN PM CDT POCT-GLUCOSE METER Routine 04/23/2019 11:23 Resul ts for this AM CDT procedure are i n the results section. POCT-GLUCOSE METER Routine 04/23/2019 7:42 Resul ts for this AM CDT procedure are i n the results section. CBC W/PLT COUNT & AUTO Routine 04/23/2019 5:32 R esults for this DIFFERENTIAL AM CDT procedure are i n the results section. HEMOGLOBIN A1C Routine 04/23/2019 5:32 Results f or this AM CDT procedure are i n the results section. TSH/FREE T4 IF Routine 04/23/2019 5:32 Results f or this INDICATED AM CDT procedure are i n the results section. MAGNESIUM Routine 04/23/2019 5:32 Results for this AM CDT procedure are i n the results section. BASIC METABOLIC PANEL Routine 04/23/2019 5:32 Re sults for this (7) AM CDT procedure are i n the results section. CBC W/PLT COUNT & AUTO Routine 04/23/2019 5:32 R esults for this DIFFERENTIAL AM CDT procedure are i n the results section. C. DIFFICILE GDH TOXIN Routine 04/23/2019 5:32 R esults for this AM CDT procedure are i n the results section. XR CHEST 1 VIEW Routine 04/23/2019 4:56 Results for this PORTABLE/BEDSIDE AM CDT procedure a re in the results section. POCT-GLUCOSE METER Routine 04/22/2019 10:24 Resul ts for this PM CDT procedure are i n the results section. ECHOCARDIOGRAM REPORT - 04/22/2019 9:12 SCAN PM CDT PERIPHERAL VASCULAR 04/22/2019 9:10 REPORT - SCAN PM CDT POTASSIUM-STAT LAB Routine 04/22/2019 8:16 Resul ts for this PM CDT procedure are i n the results section. CALCIUM, IONIZED Routine 04/22/2019 8:16 Results for this PM CDT procedure are i n the results section. MAGNESIUM Routine 04/22/2019 8:16 Results for this PM CDT procedure are i n the results section. POCT-GLUCOSE METER Routine 04/22/2019 6:05 Resul ts for this PM CDT procedure are i n the results section. SPUTUM CULTURE + GRAM Routine 04/22/2019 4:40 Re sults for this STAIN PM CDT procedure are i n the results section. POCT-GLUCOSE METER Routine 04/22/2019 12:29 Resul ts for this PM CDT procedure are i n the results section. WOUND CULTURE + GRAM STAT 04/22/2019 8:30 Res ults for this STAIN AM CDT procedure are i n the results section. XR CHEST 1 VIEW Routine 04/22/2019 5:57 Results for this PORTABLE/BEDSIDE AM CDT procedure a re in the results section. (CELLAVISION MANUAL Routine 04/22/2019 5:18 Resu lts for this DIFF) AM CDT procedure are i n the results section. CBC W/PLT COUNT & AUTO Routine 04/22/2019 5:18 R esults for this DIFFERENTIAL AM CDT procedure are i n the results section. TROPONIN I STAT 04/22/2019 5:18 Results for this AM CDT procedure are i n the results section. MAGNESIUM Routine 04/22/2019 5:18 Results for this AM CDT procedure are i n the results section. BASIC METABOLIC PANEL Routine 04/22/2019 5:18 Re sults for this (7) AM CDT procedure are i n the results section. CBC W/PLT COUNT & AUTO Routine 04/22/2019 5:18 R esults for this DIFFERENTIAL AM CDT procedure are i n the results section. 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 CT CHEST PE TEST DESIGN STAT 04/22/2019 3:25 AM Results for this CDT procedure are i n the results section . CT LOWER EXTREMITY STAT 04/22/2019 3:25 AM Re sults for this WITHOUT IV CONTRAST LEFT CDT pro cedure are in the results section . CBC W/PLT COUNT & AUTO STAT 04/21/2019 11:19 PM Results for this DIFFERENTIAL CDT procedure are i n the results section . POTASSIUM Routine 04/21/2019 11:19 PM Results for this CDT procedure are i n the results section . MAGNESIUM Routine 04/21/2019 11:19 PM Results for this CDT procedure are i n the results section . CBC W/PLT COUNT & AUTO STAT 04/21/2019 11:19 PM Results for this DIFFERENTIAL CDT procedure are i n the results section . TROPONIN I STAT 04/21/2019 11:19 PM Results for this CDT procedure are i n the results section . POCT-GLUCOSE METER Routine 04/21/2019 9:45 PM Re sults for this CDT procedure are i n the results section . ECHO W CONTRAST & STAT(After Hours 04/21/2019 8:16 PM Results for this DOPPLER Page Staff) CDT procedure are i n the results section . HEPATIC FUNCTION PANEL GIOVANNI 04/21/2019 8:04 PM Results for this CDT procedure are i n the results section . BLOOD GAS, VENOUS Routine 04/21/2019 8:04 PM Res ults for this CDT procedure are i n the results section . LACTIC ACID, VENOUS Routine 04/21/2019 8:04 PM R esults for this CDT procedure are i n the results section . D-DIMER Routine 04/21/2019 8:04 PM Results for this CDT procedure are i n the results section . TROPONIN I STAT 04/21/2019 8:04 PM Results for this CDT procedure are i n the results section . VENOUS DOPPLER LEGS STAT 04/21/2019 8:00 PM R esults for this BILATERAL CDT procedure are i n the results section . PROTHROMBIN TIME/INR STAT 04/21/2019 5:47 PM Results for this CDT procedure are i n the results section . PHOSPHORUS STAT 04/21/2019 5:47 PM Results for this CDT procedure are i n the results section . MAGNESIUM STAT 04/21/2019 5:47 PM Results for this CDT procedure are i n the results section . OXYGEN SATURATION, STAT 04/21/2019 5:47 PM Re sults for this MEASURED CDT procedure are i n the results section . PROCALCITONIN STAT 04/21/2019 5:47 PM Results for this CDT procedure are i n the results section . LACTIC ACID, VENOUS STAT 04/21/2019 5:47 PM R esults for this CDT procedure are i n the results section . US GUIDE, VASCULAR Routine 04/21/2019 4:55 PM Re sults for this ACCESS CDT procedure are i n the results section . INSERT NON-TUNNEL CV Routine 04/21/2019 4:55 PM Results for this CATH CDT procedure are i n the results section . POCT-LACTIC ACID, VENOUS Routine 04/21/2019 4:23 PM Results for this CDT procedure are i n the results section . XR CHEST 1 VIEW STAT 04/21/2019 4:05 PM Resul ts for this PORTABLE/BEDSIDE CDT procedure a re in the results section . BLOOD GAS, ARTERIAL STAT 04/21/2019 3:47 PM R esults for this CDT procedure are i n the results section . BLOOD CULTURE STAT 04/21/2019 3:42 PM Results for this CDT procedure are i n the results section . TROPONIN I STAT 04/21/2019 3:41 PM Results for this CDT procedure are i n the results section . BASIC METABOLIC PANEL STAT 04/21/2019 3:41 PM Results for this (7) CDT procedure are i n the results section . BLOOD CULTURE STAT 04/21/2019 3:41 PM Results for this CDT procedure are i n the results section . ECG 12-LEAD STAT 04/21/2019 3:22 PM Results for this CDT procedure are i n the results section . after 04/13/2019 Results RHYTHM STRIP - SCAN (04/29/2019 3:41 PM CDT)Only the most recent of2 results within the time period is included. Narrative Performed At This result has an attachment that is no t available. POC-Glucose meter (04/25/2019 12:05 PM CDT)Only the most recent of14 results within the time period is included. POC-Glucose Meter 143 (H)Comment: TESTED AT 70 - 110 mg/dL [facility] [address] [facility] [id number] Specimen Blood Performing Organization Address City/State/Zipcode Phone Number [address] [address] CENTER XR chest 1 view portable / bedside (04/24/2019 8:09 AM CDT)Only the most recent of4 resultswithin the time period is included. Specimen Narrative Performed At FINAL REPORT [facility] CLINICAL HISTORY: SHORTNESS OF BREATH TECHNIQUE: 1 view of the chest. COMPARISON: 04/23/2019 IMPRESSION: There is new/increased left lung base co nsolidation. There is right basilar atelectasis. Subpulmonic pleural effusions cannot be excluded. The cardiomediastinal silhouet te is magnified by technique with sternotomy wires. Signed: Yimi Harkins MD Report Verified Date/Time:04/24/2019 08:36:14 Reading Location: [facility] Reading Room Procedure Note Interface, External Ris In - 04/24/2019 8:38 AM CDT FINAL REPORT CLINICAL HISTORY: SHORTNESS OF BREATH TECHNIQUE: 1 view of the chest. COMPARISON: 04/23/2019 IMPRESSION: There is new/increased left lung base co nsolidation. There is right basilar atelectasis. Subpulmonic pleural effusions cannot be excluded. The cardiomediastinal silhouet te is magnified by technique with sternotomy wires. Signed: Yimi Harkins MD Report Verified Date/Time: 04/24/2019 0 8:36:14 Reading Location: [facility] Reading Room Performing Organization Address City/State/Zipcode Phone Number [facility] CBC with platelet count + automated diff (04/24/2019 2:52 AM CDT)Only the most recent of4 resultswithin the time period is included. WBC 6.6 3.5 - 10.5 K/L [facility] RBC 3.92 (L) 4.63 - 6.08 M/L [facility] Hemoglobin 11.7 (L) 13.7 - 17.5 GM/DL [facility] Hematocrit 36.2 (L) 40.1 - 51.0 % [facility] [place] MCV 92.3 (H) 79.0 - 92.[address] [facility] [place] MCH 29.8 25.7 - 32.[address] [facility] HE ALTH [facility] MCHC 32.3 32.3 - 36.5 GM/DL [facility] RDW 13.0 11.6 - 14.4 % [facility] ALTH [facility] Platelets 246 150 - 450 K/CU MM [facility] MPV 8.5 (L) 9.4 - 12.4 fL [facility] nRBC 0 0 - 0 /100 WBC [facility] % Neutros 60 % [facility] % Lymphs 28 % [facility] CENTER % Monos 7 % [facility] % Eos 4 % [facility] % Baso 0 % [facility] # Neutros 4.01 1.78 - 5.38 K/L [facility] # Lymphs 1.86 1.32 - 3.57 K/L [facility] # Monos 0.47 0.30 - 0.82 K/L [facility] # Eos 0.26 0.04 - 0.54 K/L [facility] # Baso 0.02 0.01 - 0.08 K/L [facility] Immature Granulocytes-Relative 0 0 - 1 % C [facility] Specimen Blood Performing Organization Address City/[facility]/Zipcode Phone Number [address] [address] CENTER Magnesium (04/24/2019 2:52 AM CDT)Only the most recent of7 resultswithin the time period is included. Magnesium 2.0 1.6 - 2.6 mg/dL [facility] [place] Specimen Blood Performing Organization Address City/[facility]/Zipcode Phone Number [address] [phone] [place] Basic Metabolic Panel (04/24/2019 2:52 AM CDT)Only the most recent of4 results within the time period is included. Sodium 138 136 - 145 meq/L [facility] [place] Potassium 3.9 3.5 - 5.1 meq/L [facility] [place] Chloride 104 98 - 107 meq/L [facility] [place] CO2 25 22 - 29 meq/L [facility] [place] BUN 9 7 - 21 mg/dL [facility] [place] Creatinine 0.69 0.57 - 1.25 mg/dL [facility] Glucose 168 (H) 70 - 105 mg/dL [facility] [place] Calcium 8.3 (L) 8.4 - 10.2 mg/dL [facility] EGFR 115Comment: ESTIMATED GFR IS mL/min/1.73 sq m [facility] NOT ACCURATE CREATININE [facility] CLEARANCE IN PREDICTING GLOMERULAR FILTRATION RATE. ESTIMATED GFR IS NOT APPLICABLE FOR DIALYSIS PATIENTS. Specimen Blood Performing Organization Address City/State/Zipcode Phone Number [place] [phone] [place], [place] [phone] [place] Potassium (04/23/2019 2:35 PM CDT)Only the most recent of2 resultswithin the time period is included. Potassium 3.5 3.5 - 5.1 meq/L [facility] [place] Specimen Blood Narrative Performed At Check Serum Potassium level 2 hours after [facility] oral potassium replacement completed or 30 min after intravenous potassium replacement. Performing Organization Address City/State/Zipcode Phone Number [facility] [address] [place], [place] [phone] [place] EKG-SCANNED (04/23/2019 12:32 PM CDT) Narrative Performed At This result has an attachment that is no t available. Clostridium difficile [facility] Toxin (04/23/2019 5:32 AM CDT) C. Difficle Toxin Negative Negative [facility] C. Difficile [facility] Antigen NegativeComment: No Negative [facility] indication of Clostridium [facility] difficile infection and no colonization. Discontinue enteric isolation and therapy. Specimen Stool Narrative Performed At Testing performed by [employer] [facility] Assay.For [facility], published sensitivity of the assay is 98.7% compared to cytotoxicity testing.For Toxin AB, published sensitivity is 87.8% and specificity 99.4% compared to cytotoxicity testing. Verification of kit performance was done by the [facility] Microbiology Lab prior to clinical use. Performing Organization Address City/[facility] Phone Number [address] [address] [place] TSH/Free T4 If Indicated (04/23/2019 5:32 AM CDT) TSH 0.79 0.35 - 4.94 uIU/mL [facility] Specimen Blood Performing Organization Address [facility] Phone Number [address] [address] [place] Hemoglobin A1c (04/23/2019 5:32 AM CDT) Hemoglobin A1C 6.8 (H) 4.3 - 6.1 % [facility] [place] Specimen Blood Performing Organization Address [facility] Phone Number [address] [address] [place] ECHOCARDIOGRAM REPORT - SCAN (04/22/2019 9:12 PM CDT) Narrative Performed At This result has an attachment that is no t available. PERIPHERAL VASCULAR REPORT - SCAN (04/22/2019 9:10 PM CDT) Narrative Performed At This result has an attachment that is no t available. Potassium-Stat Lab (04/22/2019 8:16 PM CDT) Potassium 3.5 (L) 3.6 - 5.5 meq/L [facility] [place] Specimen Blood Performing Organization Address City/State/Zipcode Phone Number [facility] [address] [place] [address] CENTER Calcium, Ionized (04/22/2019 8:16 PM CDT) Calcium, Ion 1.08 (L) 1.12 - 1.27 mmol/L [facility] pH, Blood 7.[address] [facility] [place] Specimen Blood Performing Organization Address City/State/Zipcode Phone Number [facility] [address] [place] [address] CENTER Sputum Culture + Gram Stain (04/22/2019 4:40 PM CDT) Result See comment [facility] [place] Gram Stain Result 2+ WBCs [facility] Gram Stain Result 0-5 epithelial cells [facility] Gram Stain Result 1+ gram negative rods [facility] Gram Stain Result 1+ gram positive cocci in [facility] Specimen Sputum - Expectorated Narrative Performed At 3+ Normal respiratory davie present [facility] Performing Organization Address City/State/Zipcode Phone Number [facility] [address] [place] [address] CENTER Wound culture + gram stain (04/22/2019 8:30 AM CDT) Result <1+ Staphylococcus aureus (A) [facility] Gram Stain Result No WBCs [facility] Gram Stain Result No organisms seen [facility] Specimen Wound Organism Antibiotic Method Susceptibility Staphylococcus aureus Clindamycin 0.25: Susc eptible Staphylococcus aureus Erythromycin >=8: Resis tant Staphylococcus aureus Linezolid 2: Suscept ible Staphylococcus aureus Oxacillin 0.5: Susce ptible Staphylococcus aureus Rifampin <=0.5: Martha ceptible Staphylococcus aureus Tetracycline <=1: Susce ptible Staphylococcus aureus Trimethoprim + Sulfamethoxazole <=10: Susceptible Staphylococcus aureus Vancomycin 1: Suscept ible Performing Organization Address City/[facility]/Zipcode Phone Number [facility] [address] [place] [address] CENTER Manual Differential (04/22/2019 5:18 AM CDT) % Neutros 74 % [facility] % Lymphs 17 % [facility] % Monos 6 % [facility] % Baso 2 % [facility] % Bands 1 0 - 10 % [facility] # Neutros 2.74 1.78 - 5.38 K/ul [facility] # Lymphs 0.63 (L) 1.32 - 3.57 K/ul [facility] # Monos 0.22 (L) 0.30 - 0.82 K/uL [facility] # Baso 0.07 0.01 - 0.08 K/uL [facility] # Bands 0.04 0.00 - 0.80 K/uL [facility] Total Counted [address] [facility] WBC Morph[facility] Normal [facility] Platelet Morphology Normal [facility] Anisocytosis 1+ few [facility] Microcytes 1+ few [facility] Artifact Present [facility] Platelet Conc Adequate [facility] Specimen Blood Narrative Performed At Received comment: [facility] User comments: Slide comments: Performing Organization Address City/[facility]/Zipcode Phone Number [facility] [address] [place] [address] [place] Troponin I (04/22/2019 5:18 AM CDT)Only the most recent of4 resultswithin the time period is included. Troponin I 0.01 0.00 - 0.03 ng/mL [facility] Specimen Blood Narrative Performed At Troponin I (TnI) levels must be interpreted [facility] in the context of the [...] disease, and persistent tachyarrhythmia. Performing Organization Address City/State/[facility] Phone Number [facility] [address] [place] [address] CENTER ECG 12 lead (04/22/2019 3:28 AM CDT)Only the most recent of2 resultswithin the time period is included. Specimen Narrative Performed At Ventricular Rate 75 BPM GE MUSE Atrial Rate 75 BPM P-R Interval 164 ms QRS Duration 82 ms Q-T Interval 394 ms QTC Calculation(Bazett) 439 ms P Scotrun 36 degrees R Scotrun -70 degrees T Scotrun 67 degrees Normal sinus rhythm Left anterior fascicular block Lateral infarct , age undetermined Inferior wall infarct , age undetermined ST & T wave abnormality, consider anteri or ischemia Abnormal ECG When compared with ECG of21 Apr 2019 15:22, No significant change was found Confirmed by Shelley UMANZOR MICHAEL ([id number]) on 9 8:51:28 AM Procedure Note Interface, External Ris In - 04/22/2019 8:51 AM CDT Ventricular Rate 75 BPM Atrial Rate 75 BPM P-R Interval 164 ms QRS Duration 82 ms Q-T Interval 394 ms QTC Calculation(Bazett) 439 ms P Scotrun 36 degrees R Scotrun -70 degrees T Scotrun 67 degrees Normal sinus rhythm Left anterior fascicular block Lateral infarct , age undetermined Inferior wall infarct , age undetermined ST & T wave abnormality, consider anteri or ischemia Abnormal ECG When compared with ECG of 21 Apr 2019 1 5:22, No significant change was found Confirmed by Shelley UMANZOR MICHAEL ([id number]) on 04/22/2019 8:51:28 AM Performing Organization Address City/State/Zipcode Phone Number [place] MUSE CT lower extremity without IV contrast left (04/22/2019 3:25 AM CDT) Specimen Narrative Performed At FINAL REPORT [employer] CLINICAL HISTORY: Lower leg erythema, sw elling, cellulitis suspected. Rule out abscess COMPARISON: None. FINDINGS: Multiple axial images of the left lower extremity were performed from the iliac bone through the foot without IV contrast. Coronal and sagittal reformats were created. This ex am was performed according to our departmental dose-optimization progr am, which includes automated exposure control, adjustment of the mA a nd/or kV according to patient size and/or use of the iterative reconst ruction technique. There is no acute fracture or malalignme nt. No destructive bony lesion is present. There is soft subcutaneous fat stranding at the lateral left upper leg and throughout the left lower leg, m ore prominent on the lateral side. There is a subcutaneous fluid collection extending from the proximal tibia adjacent to surgical clips to the distal tibia. It measures 2.2 x 1.8 x 24.0 cm. There is no soft tissue gas. The visuali zed musculature is unremarkable. The intrinsic soft tissues of the knee are intact. There is no knee joint effusion. There is scattered atherosclerotic calci fication in the left lower extremity. Left colonic diverticula are noted. The visualized pelvic viscera are otherwise unremarkable. IMPRESSION: 2.2 x 1.8 x 24.0 cm subcutaneous fluid c ollection in the medial leg adjacent to surgical clips at the superi or margin of the collection. This may reflect a postoperative seroma. Superinfection should be excluded clinically. Nonspecific subcutaneous fat stranding i n the lateral greater than medial leg, nonspecific and possibly ref lecting edema or cellulitis. There is no soft tissue gas. Signed: Blair Dang MD Report Verified Date/Time:04/22/2019 04:17:42 Reading Location: [address] Reading Room Procedure Note Interface, External Ris In - 04/22/2019 4:19 AM CDT FINAL REPORT CLINICAL HISTORY: Lower leg erythema, sw elling, cellulitis suspected. Rule out abscess COMPARISON: None. FINDINGS: Multiple axial images of the left lower extremity were performed from the iliac bone through the foot without IV contrast. Coronal and sagittal reformats were created. This ex am was performed according to our departmental dose-optimization progr am, which includes automated exposure control, adjustment of the mA a nd/or kV according to patient size and/or use of the iterative reconst ruction technique. There is no acute fracture or malalignme nt. No destructive bony lesion is present. There is soft subcutaneous fat stranding at the lateral left upper leg and throughout the left lower leg, m ore prominent on the lateral side. There is a subcutaneous fluid collection extending from the proximal tibia adjacent to surgical clips to the distal tibia. It measures 2.2 x 1.8 x 24.0 cm. There is no soft tissue gas. The visuali zed musculature is unremarkable. The intrinsic soft tissues of the knee are intact. There is no knee joint effusion. There is scattered atherosclerotic calci fication in the left lower extremity. Left colonic diverticula are noted. The visualized pelvic viscera are otherwise unremarkable. IMPRESSION: 2.2 x 1.8 x 24.0 cm subcutaneous fluid c ollection in the medial leg adjacent to surgical clips at the superi or margin of the collection. This may reflect a postoperative seroma. Superinfection should be excluded clinically. Nonspecific subcutaneous fat stranding i n the lateral greater than medial leg, nonspecific and possibly ref lecting edema or cellulitis. There is no soft tissue gas. Signed: Blair Dang MD Report Verified Date/Time: 04/22/2019 0 4:17:42 Reading Location: [address] Reading Room Performing Organization Address City/State/Zipcode Phone Number [employer] CT chest for pulmonary embolus (04/22/2019 3:25 AM CDT) Specimen Narrative Performed At FINAL REPORT [employer] CLINICAL HISTORY: Chest pain. FINDINGS: Multiple axial images of the chest were performed after the uncomplicated administration of IV contr ast, utilizing a pulmonary embolism protocol. Post-processing coron al reformats were created and interpreted. This exam was performed according to our departmental dose-optimization program, which include s automated exposure control, adjustment of the mA and/or kV according to patient size and/or use of the iterative reconstruction techniqu e. Study quality:Adequate. Comparison:None. Pulmonary arteries: No pulmonary embolis m. Lung parenchyma: Low lung volumes with b ibasilar atelectasis, left greater than right Pleural effusion: None. Pneumothorax: None. Tracheobronchial tree: No significant fi ndings. Pulmonary vasculature: No significant fi ndings. Cardiac contours and great vessels: Athe rosclerotic calcification of the coronary arteries and aorta. Mediastinum: Small pericardial effusion Lymph Nodes: No adenopathy in the medias tinum or edgardo. Prominent left axillary lymph nodes, nonspecific. An ex ample has a short axis diameter of 12 mm. Skeleton: No acute abnormality. Multiple chronic right posterior rib fracture deformities. Previous sternotom y. Limited images of upper abdomen: No sign ificant findings. IMPRESSION: No pulmonary embolism. Low lung volumes with bibasilar atelecta sis versus pneumonitis. Small pericardial effusion. Prominent left axillary lymph nodes, non specific. These can be followed up, as indicated. Signed: Blair Dang MD Report Verified Date/Time:04/22/2019 04:11:13 Reading Location: [address] Reading Room Procedure Note Interface, External Ris In - 04/22/2019 4:13 AM CDT FINAL REPORT CLINICAL HISTORY: Chest pain. FINDINGS: Multiple axial images of the chest were performed after the uncomplicated administration of IV contr ast, utilizing a pulmonary embolism protocol. Post-processing coron al reformats were created and interpreted. This exam was performed according to our departmental dose-optimization program, which include s automated exposure control, adjustment of the mA and/or kV according to patient size and/or use of the iterative reconstruction techniqu e. Study quality:Adequate. Comparison:None. Pulmonary arteries: No pulmonary embolis m. Lung parenchyma: Low lung volumes with b ibasilar atelectasis, left greater than right Pleural effusion: None. Pneumothorax: None. Tracheobronchial tree: No significant fi ndings. Pulmonary vasculature: No significant fi ndings. Cardiac contours and great vessels: Athe rosclerotic calcification of the coronary arteries and aorta. Mediastinum: Small pericardial effusion Lymph Nodes: No adenopathy in the medias tinum or edgardo. Prominent left axillary lymph nodes, nonspecific. An ex ample has a short axis diameter of 12 mm. Skeleton: No acute abnormality. Multiple chronic right posterior rib fracture deformities. Previous sternotom y. Limited images of upper abdomen: No sign ificant findings. IMPRESSION: No pulmonary embolism. Low lung volumes with bibasilar atelecta sis versus pneumonitis. Small pericardial effusion. Prominent left axillary lymph nodes, non specific. These can be followed up, as indicated. Signed: Blair Dang MD Report Verified Date/Time: 04/22/2019 0 4:11:13 Reading Location: [address] Reading Room Performing Organization Address City/State/Zipcode Phone Number [employer] Transthoracic 2D echo w contrast & doppler (04/21/2019 8:16 PM CDT) Ejection Fraction [facility] ECHO HEAR TLAB MKCKiDentiMobON [facility] Specimen Narrative Performed At Transthoracic Echocardiography Report (T TE) [facility] ECHO HEARTLAB MKFactorliESSON [facility] Demographics Patient Name Ian BURNETT of Study 04/21/2019 [id number] GenderMale Visit Number [id number] Unknown [id number] Room Number C830 Number Date of Birth1955Referring Physician James Nix Age63 year(s)Embedded Systems Designer Shraddha Melgar RDCS, RVT InterpretingMarco Antonio Wayne MD Physician Fellow [facility] Grover Procedure Type of Study TTE procedure:2DECHO W/CONTRAST & DOPPLER (STAT) Indications:Shortness of breath. Clinical History COPD, DM, HTN, CABG X3 04/04/19 Contrast Medium: Definity. Amount - 2 ml Height: 67 inches Weight: 108.86 kg (240 lbs) BSA: 2.18 m^2 BMI: 37.59 kg/m^2 HR: 88 bpm BP: 123/76 mmHg Summary Technically difficult study due to limited acoustic windows. The left ventricle is chamber size (by vol index) is normal. Septal motion is abnormal, likely related to prior cardiac surgery . The remaining LV segments contract normally. LVEF by Montano's method of disk assessment is normal (55-60%). Increased (cardiac index 3.5-4.0 L/min/m2) cardiac output state at rest is noted. Grade 1 diastolic dysfunction (impaired relaxation and low-normal LA pressure). A small pericardial effusion noted predominantly posteriorly. (Most prominent on parasternal short axis). Greatest pericardial end-diastolic size is approx. 0.8 cm. Previous Study No significant changes from previous examination on 04/08/19. Signature Findings Rhythm/BPRegular sinus rhythm during the exam. Left Ventricle The LV endocardium is adequately visualized. The le ft ventricle is chamber size (by vol ind ex) is no rmal. Normal LV wall thickness. Septal m otion is ab normal, likely related to prior cardiac surgery . Th e remaining LV segments contract normall y. LVEF by Montano's method of disk assessment is n ormal (5 5-60%). Increased (cardiac index 3.5-4.0 L/ min/m2) cardiac output state at rest is noted. Gr paulo 1 diastolic dysfunction (impaired re laxation an d low-normal LA pressure). Left AtriumLA size is normal (16-34 ml/m2) . Right VentricleRV chamber size is normal . Gl obal RV systolic function is normal . Right Atrium RA size is probably normal based on available vi ews. Atrial SeptumNormal interatrial septum by available views. Aortic Valve Normal AoV structure and function by limited views an d Doppler. Mitral Valve Normal MV structure and function by available view s an d Doppler. Tricuspid ValveNormal TV structure and function by available view s an d Doppler. Un able to estimate peak systolic PA pressu re; in adequate TR velocity signal. Pulmonic Valve Normal PV structure and function by limited views an d Doppler. AortaAortic root size (SInus of Valsalva diameter) i s no rmal . Th e aortic sinotubular junction appears no rmal . Pr oximal ascending aorta is not well visua lized. PericardiumA small pericardial effusion noted predominantly po steriorly. (Most prominent on parasterna l short ax is) Gr eatest pericardial end-diastolic size is approx. 0. 8 cm. No evidence of chamber collapse. IVC/SVC/PA/PV/PleuralThe inferior vena cava is not well visualized. Chambers/Structures Left Atrium LA Volume: 74.55 ml LA Area: 27.47 cm^2 LA Vol. Index: 34 ml/m^2 Left Ventricle LVIDd: 4 cm LVIDs: 2.84 cm LV Septum Diastolic: 1.01 cm LV PW Diastolic: 0.87 cmLV FS: 29 % LVEDV Montano's:72.19 ml LVESV Montano's:25.82 mlLVEDVI: 33 ml/m^2 LVEF Montano's: 64.2 %LVESV I: 12 ml/m^2 LVOT Diameter: 2.6 cm Aorta Ao Root S of Carrie.: 3.[address] Junction: 2.67 cm Doppler/Quantitative Measurements Mitral Valve MV Peak E-Wave: 0.54 m/sMV Peak A-Wave: 0.59 m/s E/A Ratio: 0. 91 Mean Velocity: 0.53 m/s Peak Gradient: 1.15 mmHg Mean Gradient: 1.22 mmHgDeceleration Time: 170.3 msec Area (continuity): 5.22 cm^2 MV VTI: 17.06 cm MV Mikey. Peak: 0.73 m/s Tissue Doppler E' Septal Velocity: 0.08 m/sE/E': 6.76 E' Lateral Velocity: 0.07 m/s Aortic Valve Peak Velocity: 1.17 m/sMean Velocity: 0.79 m/s Peak Gradient: 5.51 mmHg Mean Gradient: 2.93 mmHg AV Area (continuity): 4.75 cm^2 AV VTI: 18.76 cm AV DVI: 0.89 LVOT Peak Velocity: 1.01 m/s Peak Gradient: 4.11 mmHg Mean Velocity: 0.64 m/s Mean Gradient: 1.95 mmHg LVOT Diameter: 2.6 cm LVOT VTI: 16.79 cm LVOT Area: 5.31 cm^2LVOT SV:89.1 ml LVOT CO: 7.84 l/min LVOT CI: 3.6 l/min/m^2 RVOT RVOT VTI (PW): 14.5 cm Pulmonic Valve Peak Velocity: 1.07 m/s Peak Gradient: 4.62 mmHg Mean Velocity: 0.77 m/s Mean Gradient: 2.38 mmHg Procedure Note Interface, External Ris In - 04/22/2019 9:04 AM CDT Transthoracic Echocardiography Report (TTE) Demographics Patient Name GARRISON BURNETT Date of Study 04/21/2019 Gender Male Visit Number [id number] Race Unknown Room Num [facility] C830 Number Date of 1955 Shaji dennison Physician James Nix Age 63 year(s) Sonograp her Shraddha Melgar RDCS, RVT Interpre phyllisg Marco Antonio Wayne MD Physicia n Fellow [facility]ver Procedure Type of Study TTE procedure:2DECHO W/CONTRA ST & DOPPLER (STAT) Indications:Shortness of breath. Clinical History COPD, DM, HTN, CABG X3 04/04/19 Contrast Medium: Definity. Amount - 2 ml Height: 67 inches Weight: 108.86 kg (240 lbs) BSA: 2.18 m^2 BMI: 37.59 kg/m^2 HR: 88 bpm BP: 123/76 mmHg Summary Technically difficult study due to limi zakia acoustic windows. The left ventricle is chamber size (by vol index) is normal. Septal motion is abnormal, likely related to prior ca rdiac surgery . The remaining LV segments contract normally. LVEF by Sim pson's method of disk assessment is normal (55-60%). Increased (cardiac ind ex 3.5-4.0 L/min/m2) cardiac output state at rest is noted. Grade 1 diastolic dysfunction (impaired relaxation and low-normal LA pressure). A small pericardial effusion noted pred ominantly posteriorly. (Most prominent on parasternal short axis). Jeny hernandez pericardial end-diastolic size is approx. 0.8 cm. Previous Study No significant changes from previous ex amination on 04/08/19. Signature Findings Rhythm/BP Regular sinus rh ythm during the exam. Left Ventricle The LV endocardi um is adequately visualized. The left ventricle i s chamber size (by vol index) is normal. Normal L V wall thickness. Septal motion is abnormal, likely related to prior cardiac surgery . The remaining LV segments contract normally. LVEF by Montano's met hod of disk assessment is normal (55-60%). Increa sed (cardiac index 3.5-4.0 L/min/m2) cardia c output state at rest is noted. Grade 1 diastoli c dysfunction (impaired relaxation and low-normal L A pressure). Left Atrium LA size is lina l (16-34 ml/m2) . Right Ventricle RV chamber size is normal . Global RV systol ic function is normal . Right Atrium RA size is proba elen normal based on available views. Atrial Septum Normal interatri al septum by available views. Aortic Valve Normal AoV struc ture and function by limited views and Doppler. Mitral Valve Normal MV struct ure and function by available views and Doppler. Tricuspid Valve Normal TV struct ure and function by available views and Doppler. Unable to estima te peak systolic PA pressure; inadequate TR ve locity signal. Pulmonic Valve Normal PV struct ure and function by limited views and Doppler. Aorta Aortic root size (SInus of Valsalva diameter) is normal . The aortic sinot ubular junction appears normal . Proximal ascendi ng aorta is not well visualized. Pericardium A small pericard ial effusion noted predominantly posteriorly. (Mo st prominent on parasternal short axis) Greatest pericar dial end-diastolic size is approx. 0.8 cm. No evidence of c hamber collapse. IVC/SVC/PA/PV/Pleural The inferior alfred a cava is not well visualized. Chambers/Structures Left Atrium LA Volume: 74.55 ml LA Area: 27.47 cm^2 LA Vol. Index: 34 ml/m^2 Left Ventricle LVIDd: 4 cm LVIDs: 2.84 cm LV Septum Diastolic: 1.01 cm LV PW Diastolic: 0.87 cm LV FS: 29 % LVEDV Montano's:72.19 ml LVESV Montano's:25.82 ml LVEDVI: 33 ml/m^2 LVEF Montano's: 64.2 % LVESVI: 12 ml/m^2 LVOT Diameter: 2.6 cm Aorta Ao Root S of Carrie.: 3.[address] Junction: 2.67 cm Doppler/Quantitative Measurements Mitral Valve MV Peak E-Wave: 0.54 m/s M V Peak A-Wave: 0.59 m/s E /A Ratio: 0.91 Mean Velocity: 0.53 m/s P eak Gradient: 1.15 mmHg Mean Gradient: 1.22 mmHg D eceleration Time: 170.3 msec A neftali (continuity): 5.22 cm^2 M V VTI: 17.06 cm MV Mikey. Peak: 0.73 m/s Tissue Doppler E' Septal Velocity: 0.08 m/s E /E': 6.76 E' Lateral Velocity: 0.07 m/s Aortic Valve Peak Velocity: 1.17 m/s Mean Velocity: 0.79 m/s Peak Gradient: 5.51 mmHg Mean Gradient: 2.93 mmHg AV Area (continuity): 4.75 cm^2 AV VTI: 18.76 cm AV DVI: 0.89 LVOT Peak Velocity: 1.01 m/s Pea k Gradient: 4.11 mmHg Mean Velocity: 0.64 m/s Jodee n Gradient: 1.95 mmHg LVOT Diameter: 2.6 cm LVO T VTI: 16.79 cm LVOT Area: 5.31 cm^2 LVO T SV:89.1 ml LVOT CO: 7.84 l/min LVO T CI: 3.6 l/min/m^2 RVOT RVOT VTI (PW): 14.5 cm Pulmonic Valve Peak Velocity: 1.07 m/s Pea k Gradient: 4.62 mmHg Mean Velocity: 0.77 m/s Jodee n Gradient: 2.38 mmHg Performing Organization Address [facility] Phone Number [facility] ECHO HEARTLAB MKCKESSON CPACS Lactic acid, venous (04/21/2019 8:04 PM CDT)Only the most recent of2 results within the time period is included. Lactate, Venous 1.4Comment: Specimen 0.5 - 2.2 mmol/L [facility] slightly hemolyzed [facility] Specimen Blood Performing Organization Address [facility] Hospitalconm Phone Number [address] [address] [place] D-dimer (04/21/2019 8:04 PM CDT) D-Dimer, Quant 3.21 (H) <0.50 MG/L FEU [facility] [place] Specimen Blood Narrative Performed At Intended Use: The D-Dimer Assay can be used [facility] to aid in the diagnosis of Deep Vein Thrombosis (DVT) and Pulmonary Embolism Disease (PED). In patients with low pre-test probability, various studies concerning STA Liatest D-dimer test have reported that with a cutoff value of 0.50 MG/L FEU, the Negative Predictive Value (NPV) regarding the exclusion of thrombosis is within 95-100% range. Performing Organization Address [facility] Phone Number [address] [address] [place] Blood gas, venous (04/21/2019 8:04 PM CDT) pH, Alfred 7.38 7.32 - 7.[address] [facility] [place] pCO2, Alfred 52 (H) 41 - [address] [facility] [place] pO2, Alfred 47 (H) 25 - [address] [facility] [place] O2 Sat, Alfred 80.9 (H) 40.0 - 70.0 % [facility] [place] [place] HCO3, Alfred 30 (H) 21 - 29 mmol/L [facility] [place] Base Excess, Alfred 3.7 (H) -2.0 - 3.0 mmol/L [facility] Patient Temperature 37.0 C [facility] FIO2 100.0 % [facility] [place] Specimen Blood Performing Organization Address City/State/Zipcode Phone Number [facility] [address] [place] [address] [place] Hepatic function panel (04/21/2019 8:04 PM CDT) Protein, Total 6.8 6.0 - 8.3 gm/dL [facility] [place] [place] Albumin 3.6 3.5 - 5.0 g/dL [facility] [place] Total Bilirubin 0.5 0.2 - 1.2 mg/dL [facility] [place] [place] Bilirubin, Direct 0.2 0.1 - 0.5 mg/dL [facility] Alkaline Phosphatase 99 40 - 150 U/L [facility] AST 13 5 - 34 U/L [facility] [place] [place] ALT 10 6 - 55 U/L [facility] [place] [place] Specimen Blood Performing Organization Address City/[facility]/Zipcode Phone Number [address] [address] [place] Venous doppler legs bilateral (04/21/2019 8:00 PM CDT) Ejection Fraction [facility] ECHO HEAR TLAB MKCKESSON CPACS Specimen Impressions Performed At Right Impression [facility] ECHO HEARTLAB MKCKESSON CPACS 1. The common femoral and profunda femoris veins are not seen due to IV and bandages. 2. There is no deep venous obstruction in the femoral, popliteal, posterior tibial or peroneal veins where visualize d. 3. There is no superficial venous obstruction in the great saphenous vein where visualized. Left Impression 1. There is no deep venous obstruction in the common femoral, profunda femoral, femoral, popliteal and posterior tibial where visualized. 2. There is no superficial venous obstruction in the great saphenous vein where visualized. 3. The peroneal veins are not seen due t o edema. 4. The below the knee great saphenous vein has been harvested. 5. There is a non-vascularized structure in the lower extremity (calf region) measuring 1.46 x 3.37 x 15.6 cm. Conclusions Summary Venous duplex imaging and compression of the bilateral lower extremities were performed. The veins were technically difficult to visualize due to edema and patient body habitus. The bilateral venous systems were patent and compressible with no evidence of thrombus where visualized. The venous Doppler waveforms were phasic with respiration. There was a non-vascularized structure in the left lower extremity (calf region) measuring 1.46 x 3.37 x 15.6 cm. Signature Velocities are measured in cm/s ; Diameters are measured in cm Narrative Performed At PV LAB - Lower Extremities DVT Study [facility] ECHO HEARTLAB [facility] Demographics Patient NameGARRISON BURNETT Date of Study 04/21/2019 Age 63 Visit [id number] GenderMale Date of 1955 Referring James BinghamRoom Number [id number] Physician Boyd [employer]edded Systems Designer Erica Nelsonkeri patel MD RVTPhysician Procedure Type of Study: Veins: Lower Extremities DVT Study, VENOUS DOPPLER LEG, BILATERAL. Indications for Study:Shortness of breat h. Patient Status:STAT. Study Location:Portable. Technical Quality:Adequate visualization . - Results were reported to:Milli Bateman NP @ 20:45. Risk Factors History of Disease + + +-------- + !Diagnosis !Date!Comments ! + + +-------- + !Other !!htn, hld, dm, copd ! + + +-------- + !History/Risk Factors:!10/04/2018!SOB ! ! !!Bilateral LE swelling! + + +-------- + !History/Risk Factors:!!CABG 04/04/2019 ! + + +-------- + Procedure Note Interface, External Ris In - 04/22/2019 9:30 AM CDT PV LAB - Lower Extremities DVT Study Demographics Patient Name GARRISON BURNETT Date of Study 04/21/2019 Age 63 Visit Number [id number] [place] Male Accession Number [id number] Date of 1955 Referring James Bingham Room Number C830 Physician [employer] Designer Erica Mcmillan Inte rpreting Jeanine Abbasi MD RVT Phys ician Procedure Type of Study: Veins: Lower Extremities DVT Study, ALFRED OUS DOPPLER LEG, BILATERAL. Indications for Study:Shortness of breat h. Patient Status:STAT. Study Location:Portable. Technical Quality:Adequate visualization . - Results were reported to:Milli zaldivar, BLAYNE @ 20:45. Risk Factors History of Disease + +--------- -+ + !Diagnosis !Date !Comments ! + +--------- -+ + !Other ! !htn, hld, dm, copd ! + +--------- -+ + !History/Risk Factors: ! 8!SOB ! ! ! !Bilateral LE swelling ! + +--------- -+ + !History/Risk Factors: ! !CABG 04/04/2019 ! + +--------- -+ + Impressions Right Impression 1. The common femoral and profunda femor is veins are not seen due to IV and bandages. 2. There is no deep venous obstruction i n the femoral, popliteal, posterior tibial or peroneal veins where visualize d. 3. There is no superficial venous obstru ction in the great saphenous vein where visualized. Left Impression 1. There is no deep venous obstruction i n the common femoral, profunda femoral, femoral, popliteal and posterio r tibial where visualized. 2. There is no superficial venous obstru ction in the great saphenous vein where visualized. 3. The peroneal veins are not seen due t o edema. 4. The below the knee great saphenous ve in has been harvested. 5. There is a non-vascularized structure in the lower extremity (calf region) measuring 1.46 x 3.37 x 15.6 cm. Conclusions Summary Venous duplex imaging and compression o f the bilateral lower extremities were performed. The veins were technica lly difficult to visualize due to edema and patient body habitus. The oneil ateral venous systems were patent and compressible with no evidence of th rombus where visualized. The venous Doppler waveforms were phasic with resp iration. There was a non-vascularized structure in the left lower extremity (calf region) measuring 1.46 x 3.37 x 15.6 cm. Signature Velocities are measured in cm/s ; Diamet ers are measured in cm Performing Organization Address [facility] Phone Number [facility] ECHO HEARTLAB MKCKESSON CPACS Procalcitonin (04/21/2019 5:47 PM CDT) Procalcitonin <0.05 <0.05 ng/mL [facility] [place] [place] Specimen Blood Narrative Performed At SEPSIS RISK (ng/mL) [facility] Low:0.05-0.50 Intermediate: 0.51-2.00 High: >=2.01 Performing Organization Address [facility] Phone Number [address] [address] [place] Oxygen saturation, measured (04/21/2019 5:47 PM CDT) O2 Saturation (Measured) 84.9 % [facility] Specimen Blood Narrative Performed At If patient has internal jugular ( IJ) or [facility] subclavian central line or PICC line. Draw from distal port. Label as central venous oxygen. Performing Organization Address [facility] Phone Number [address] [address] [place] Prothrombin time/INR (04/21/2019 5:47 PM CDT) Protime 15.8 (H) 11.9 - 14.2 seconds [facility] INR 1.3 <=5.[address] [facility] [place] [place] Specimen Blood Narrative Performed At Effective 03/27/2019: PT Reference Range [facility] Change New: 11.9-14.2Previous: 11.7-14.7 RECOMMENDED COUMADIN/WARFARIN INR THERAPY RANGES STANDARD DOSE: 2.0-3.0Includes: PROPHYLAXIS for venous thrombosis, systemic embolization; TREATMENT for venous thrombosis and/or pulmonary embolus. HIGH RISK: Target INR is 2.5-3.5 for patients wiht mechanical heart valves. Performing Organization Address [facility]/Zipcode Phone Number [address] [address] [place] Phosphorus (04/21/2019 5:47 PM CDT) Phosphorus 2.5 2.3 - 4.7 mg/dL [facility] Specimen Blood Performing Organization Address City/State/Zipcode Phone Number [facility] [address] [place] [address] [place] Central Line (04/21/2019 4:55 PM CDT) Narrative Performed At Zachery Ramirez MD 97:16 PM Central Line Date/Time: 04/21/2019 7:15 PM Performed by: Zachery Ramirez MD Authorized by: Zachery Ramirez MD Consent: The procedure was performed in an emergent situation. Verbal consent obtained. Risks and benefits: risks, benefits and alternatives were discussed Consent given by: patient Patient understanding: patient states understanding of the procedure being performed Patient consent: the patient's understan ding of the procedure matches consent given Procedure consent: procedure consent mat ches procedure scheduled Relevant documents: relevant documents p resent and verified Required items: required blood products, implants, devices, and special equipment available Patient identity confirmed: arm band Time out: Immediately prior to procedure a "time out" was called to verify the correct patient, procedure, equipmen t, child support officer and site/side marked as required. Indications: vascular access and central pressure monitoring Anesthesia: local infiltration Anesthesia: Local Anesthetic: lidocaine 1% without e pinephrine Anesthetic total: 4 mL Sedation: Patient sedated: no Preparation: skin prepped with 2% chlorh exidine Skin prep agent dried: skin prep agent completely drie d prior to procedure Sterile barriers: all five maximum steri le barriers used - cap, mask, sterile gown, sterile gloves, and large sterile sheet Hand hygiene: hand hygiene performed haris or to central venous catheter insertion Location details: right femoral Patient position: flat Catheter type: triple lumen Catheter size: 7 Fr Pre-procedure: landmarks identified Ultrasound guidance: yes Sterile ultrasound techniques: sterile gel and sterile probe covers were used Number of attempts: 1 Successful placement: yes Post-procedure: line sutured Assessment: blood return through all por ts and free fluid flow Immediate Post-Procedure Note Date/Time: 04/21/2019 7:16 PM Assistants to the procedure: None Pre-procedure diagnosis: sepsis Post-procedure diagnosis: sepsis Procedures Performed: Central Line Specimens removed: None Estimated blood loss (mL): None Complications: None Type of anesthesia: None Grafts or Implants: None POC-Lactic Acid, Venous (04/21/2019 4:23 PM CDT) POC-Lactic Acid, Venous 3.3 (H)Comment: 0.9 - 1.7 mmol/L [facility] TESTED AT [address] [address] Specimen Blood Performing Organization Address City/[facility] Phone Number [address] [address] [place] Blood gas, arterial (04/21/2019 3:47 PM CDT) pH, Arterial 7.43 7.35 - 7.[address] [facility] [place] [place] pCO2, Arterial 43 35 - [address] [facility] [place] [place] pO2, Arterial 141 (H) 80 - [address] [facility] [place] [place] O2 Sat, Arterial 98.9 (H) 96.0 - 97.0 % [facility] HCO3, Arterial 28 21 - 29 mmol/L [facility] [place] [place] Base Excess, Arterial 3.1 (H) -2.0 - 3.0 mmol/L [facility] Patient Temperature 36.5 C [facility] FIO2 60.0 % [facility] [place] [place] Specimen Blood, Arterial Performing Organization Address City/[facility] Phone Number [address] [address] [place] Blood culture (04/21/2019 3:42 PM CDT)Only the most recent of2 resultswithin the time period is included. Result No growth in 5 days [facility] Specimen Blood Performing Organization Address City/[facility]/Zipcode Phone Number [address] [address] CENTER after 04/13/2019 Insurance Payer Benefit Plan / Group Subscriber ID Type Phone A ddress [facility] - MEDICARE AARP/MEDICARE COMPLETE xxxxxxxxx MGD CARE Advance Directives Patient has advance care planning documents, and code status on file. For more information, please contact:[place] [phone] [place], [place] [phone] Code Status Date Activated Date Inactivated Comments Full Code 04/21/2019 6:08 PM 04/25/2019 4:10 PM This code status was determined by: Patient Full Code 04/21/2019 4:54 PM 04/21/2019 6:08 PM This code status was determined by: Patient Full Code 04/03/2019 6:12 PM 04/11/2019 5:08 PM This code status was determined by: Patient Full Code 10/04/2018 2:12 PM 04/03/2019 5:39 PM This code status was determined by: Patient Full Code 08/30/2018 1:09 AM 10/04/2018 11:42 AM This code status was determined by: Patient
[2020-04-13] MEDS: INSULIN -REGULAR HUMAN 50 UNIT/0.5 ML ML SQ SCH ×2 (20:00→21:00)
[2020-04-13] MEDS ORDERED: ONDANSETRON 4 MG/2 ML VIAL IV PRN (20:00)
[2020-04-13] MEDS ORDERED: IPRATROPIUM BROM 0.5MG/2.5ML NEB PRN (20:00)
[2020-04-13] MEDS ORDERED: D5 0.45 NS 1,000 ML IV SCH (20:00)
[2020-04-13] MEDS ORDERED: ACETAMINOPHEN 500 MG TAB PO PRN (20:00)
[2020-04-13] MEDS ORDERED: ALBUTEROL 2.5 MG/3 ML NEB SOL NEB PRN (20:00)
[2020-04-13 23:14] LABS: Urine Appearance CLEAR; Urine Bilirubin NEGATIVE (NEG); Urine Blood NEGATIVE (NEG); Urine Color YELLOW; Urine Glucose 3+ (NEG); Urine Protein NEGATIVE (NEG); Urine Specific Gravity 1.025 (1.005-1.030); Urine pH 5.5 (5.0-7.0)
[2020-04-13 23:15] LABS: Barbiturates NEGATIVE (NEGATIVE); Benzodiazepines POSITIVE (NEGATIVE); Cocaine NEGATIVE (NEGATIVE); METHAMPHETAM NEGATIVE (NEGATIVE); Methadone NEGATIVE (NEGATIVE); Opiates NEGATIVE (NEGATIVE); Phencyclidine NEGATIVE (NEGATIVE); THC Cannibis NEGATIVE (NEGATIVE)
[2020-04-13 23:17] VITALS: BMI 32.1
[2020-04-13 23:28] LABS: Urine Microscopic Reflex NO UMIC
[2020-04-13] MEDS: ENOXAPARIN 40 MG/0.4 ML SQ SCH (23:43)
[2020-04-14 04:47] LABS: Absolute Lymphocytes (CBC) 2.2 K/uL (0.7-4.9); Basophils % 0.8 % (0-1.3); Hematocrit 42.7 % (39.6-49.0); Lymphocytes % 21.9 % (15.3-44.8); RBC Red Blood Cell Count 4.81 M/uL (4.33-5.43)
[2020-04-14 05:07] LABS: ALT/SGPT 21 U/L (12-78); AST/SGOT 22 U/L (15-37); Albumin 3.3 g/dL (3.4-5.0); Alkaline Phosphatase 51 U/L (45-117); BUN Blood Urea Nitrogen 13 mg/dL (7-18); Bicarbonate 25 mmol/L (21-32); Bilirubin Total 0.5 mg/dL (0.2-1.0); Glucose Level 201 mg/dL (74-106); Potassium 3.5 mmol/L (3.5-5.1); Sodium Level 139 mmol/L (136-145)
[2020-04-14] MEDS ORDERED: KCL 20 MEQ/100 mL IVPB 20 MEQ/100 ML BAG IV SCH (06:00)
--- NOTE | 2020-04-14 07:21 | EKG ---
Test Date: 2020-04-13 Test Time: 15:05:28 [employer] Former: MARILIA MEASUREMENT RESULTS: Intervals: Rate: 72 LA: 164 QRSD: 88 QT: 374 QTc: 409 [place]: P: 23 LA: 164 QRS: -60 T: 4 INTERPRETIVE STATEMENTS: Normal sinus rhythm Possible Left atrial enlargement Left anterior fascicular block Possible Lateral infarct, age undetermined ST & T wave abnormality, consider anterior ischemia Abnormal ECG Compared to ECG 11/27/2019 17:17:47 Left anterior fascicular block now present Myocardial infarct finding now present Left-axis deviation no longer present ST (T wave) deviation still present Possible ischemia still present Electronically Signed On 04-14-20 07:20:33 CDT by Shashi Jin
[2020-04-14] MEDS ORDERED: NACHLORIDE 0.45% 1,000 ML IV SCH (08:00)
[2020-04-14] MEDS ORDERED: METFORMIN HCL 500 MG TAB PO SCH (08:00)
[2020-04-14] MEDS: INSULIN -REGULAR HUMAN 50 UNIT/0.5 ML ML SQ SCH ×2 (08:10→12:25)
[2020-04-14] MEDS: ENOXAPARIN 40 MG/0.4 ML SQ SCH (08:11)
[2020-04-14 08:16] VITALS: O2SAT 97
[2020-04-14] MEDS ORDERED: CLOPIDOGREL 75 MG TABLET PO SCH (09:00)
[2020-04-14] MEDS ORDERED: ENALAPRIL 10 MG TAB PO SCH (09:00)
[2020-04-14] MEDS ORDERED: SPIRONOLACTONE 25 MG TABLET PO SCH (09:00)
[2020-04-14] MEDS ORDERED: FENOFIBRATE 160 MG TAB PO SCH (09:00)
[2020-04-14] MEDS ORDERED: ASPIRIN EC 81 MG TAB PO SCH (09:00)
[2020-04-14] MEDS ORDERED: METOPROLOL TAR 50 MG TAB PO SCH (09:00)
[2020-04-14] MEDS ORDERED: PANTOPRAZOLE 40MG TABLET PO SCH (09:00)
[2020-04-14 13:37] VITALS: BP 108/71; TEMP 97.8
--- NOTE | 2020-04-14 13:52 | P.PN ---
Subjective Date of Service: 04/14/20 Subjective: Improving, Doing well, Other (Patient admits taking overdose of medication. Patient has a history of suicide ideation in the past. Patient with depression and anxiety.) Physical Examination - Vital Signs Temperature: 97.8 F Blood Pressure: 108/71 Pulse: 67 Respirations: 25 Pulse Ox (%): 97 - Physical Exam General: Alert, Other (Patient appears depressed. Patient admits overdosing on medication. Patient not overtly suicidal but with history. Patient willing to go to inpatient facility to further address.) HEENT: Atraumatic Neck: Supple Respiratory: Clear to auscultation bilaterally, Normal air movement Cardiovascular: Normal pulses, Regular rate/rhythm Gastrointestinal: Normal bowel sounds, Soft and benign, Non-distended Neurological: Normal speech, Normal strength at 5/5 x4 extr, Normal tone, Normal affect - Studies Laboratory Data (last 24 hrs) 04/14/20 04:35: Sodium 139, Potassium 3.5, BUN 13, Creatinine 0.80, Glucose 201 H, Total Bilirubin 0.5, AST 22, ALT 21, Alkaline Phosphatase 51 04/14/20 04:35: WBC 9.9 D, Hgb 14.3, Hct 42.7, Plt Count 262 04/13/20 14:56: PT 12.7 H, INR 1.08, APTT 33.1 04/13/20 14:56: Sodium 136, Potassium 4.0, BUN 18, Creatinine 1.09, Glucose 389 H, Total Bilirubin 0.3, AST 20, ALT 21, Alkaline Phosphatase 63 04/13/20 14:56: WBC 7.7, Hgb 14.3, Hct 42.7, Plt Count 286 Microbiology Data (last 24 hrs): 04/13/20 22:57 Nasopharnyx Coronavirus COVID-19 PCR - Final Medications List Reviewed: Yes Assessment & Plan Discharge Plan: Psychiatry Plan to discharge in: 24 Hours Physician Review Additional Text: Impression: Drug overdose, intentional with 50 pills of 1 mg clonazepam complicated with history of depression with anxiety with history of suicide attempt CAD with history of CABG Hypertension Peripheral vascular disease Diabetes mellitus type 2, non insulin dependent Obstructive sleep apnea on CPAP Plan: Drug overdose, intentional with 50 pills of 1 mg clonazepam complicated with history of depression with anxiety with history of suicide attempt: Patient admits to overdosing on clonazepam. Patient with prior history of suicide attempt. Case discussed with psychiatry. Psychiatry recommends inpatient psych transfer for further evaluation and treatment. This was discussed in detail with the patient. He agrees to go to inpatient psych. Arrangements for transfer have been initiated. Patient medically stable at this time. Patient with other multiple medical problems with his regular medications. CAD with history of CABG: Continue with his current medications. Hypertension: Continue with current medication Peripheral vascular disease: Continue current medication Diabetes mellitus type 2, non insulin dependent: Continue current medication Obstructive sleep apnea on CPAP: Continue with CPAP at night. Time Spent Managing Pts Care (In Minutes): 55
--- NOTE | 2020-04-14 17:47 | P.DS ---
Admission Date: 04/14/20 Discharge Date: 04/14/20 Primary Care Provider: unknown Disposition: TRANSFR TO OTHER-PSY/CD/REHAB Discharge Condition: GOOD Consultations: PYSC Procedures: Medical problem list Drug overdose, intentional with 50 pills of 1 mg clonazepam complicated with history of depression with anxiety with history of suicide attempt CAD with history of CABG Hypertension Peripheral vascular disease Diabetes mellitus type 2, non insulin dependent Obstructive sleep apnea on CPAP Brief History of Present Illness: 64-year-old male with multiple medical problems presented to the emergency room with overdose of benzodiazepine. Suicide ideation was noted. Hospital Course: Patient presented with drug overdose. Patient intentionally took 50 pills of 1 mg clonazepam. Patient with history of depression with anxiety and prior suicide attempt. Patient admits suicidal ideation. Patient was evaluated by psychiatry. Psychiatry recommends inpatient psych for further evaluation and treatment. Patient was accepted and willing to go to inpatient psych. Patient transferred to continue his care. Patient's other multiple medical problems including CAD with prior CABG, hypertension, PVD, diabetes mellitus type 2 [id number], and obstructive sleep apnea stable at this time. Patient will continue with his current medications. Patient will continue with CPAP at night. Further evaluation by psych will be addressed. Patient medically stable for transfer. Vital Signs/Physical Exam: Temp Pulse Resp BP Pulse Ox 97.8 F 67 25 H 108/71 97 04/14/20 13:52 04/14/20 13:52 04/14/20 13:52 04/14/20 13:52 04/14/20 13:52 General: Alert, In no apparent distress, Oriented x3, Cooperative HEENT: Atraumatic Neck: Supple Respiratory: Clear to auscultation bilaterally, Normal air movement Cardiovascular: Normal pulses, Regular rate/rhythm Gastrointestinal: Normal bowel sounds, Soft and benign, Non-distended, No tenderness, No masses, No rebound, No guarding Musculoskeletal: No erythema, No tenderness, No warmth Integumentary: No tenderness/swelling, No erythema, No warmth, No cyanosis Neurological: Normal speech, Normal strength at 5/5 x4 extr, Normal tone Laboratory Data at Discharge: WBC 9.9 K/uL (4.3-10.9) D 04/14/20 04:35 Hgb 14.3 g/dL (13.6-17.9) 04/14/20 04:35 Hct 42.7 % (39.6-49.0) 04/14/20 04:35 Plt Count 262 K/uL (152-406) 04/14/20 04:35 PT 12.7 SECONDS (9.5-12.5) H 04/13/20 14:56 INR 1.08 04/13/20 14:56 APTT 33.1 SECONDS (24.3-36.9) 04/13/20 14:56 Sodium 139 mmol/L (136-145) 04/14/20 04:35 Potassium 3.5 mmol/L (3.5-5.1) 04/14/20 04:35 BUN 13 mg/dL (7-18) 04/14/20 04:35 Creatinine 0.80 mg/dL (0.55-1.3) 04/14/20 04:35 Glucose 201 mg/dL (74-106) H 04/14/20 04:35 Total Bilirubin 0.5 mg/dL (0.2-1.0) 04/14/20 04:35 AST 22 U/L (15-37) 04/14/20 04:35 ALT 21 U/L (12-78) 04/14/20 04:35 Alkaline Phosphatase 51 U/L (45-117) 04/14/20 04:35 Home Medications: Aspirin [Aspir-Low] 81 mg PO DAILY 07/08/19 Atorvastatin Calcium [Lipitor*] 20 mg PO BEDTIME 07/08/19 Clopidogrel Bisulfate [Plavix*] 75 mg PO DAILY 07/08/19 Gabapentin 600 mg PO TID 07/08/19 Insulin Glulisine [Apidra] See Protocol SQ TID 07/08/19 Metformin HCl 1,000 mg PO BIDAC 07/08/19 Metoprolol Tartrate [Lopressor] 50 mg PO BID 07/08/19 Spironolactone 50 mg PO DAILY 07/08/19 Trazodone [Desyrel*] 300 mg PO BEDTIME 07/08/19 Albuterol Sulfate [Proair Hfa] 2 puff IH QIDP PRN 04/13/20 Duloxetine HCl 60 mg PO DAILY 04/13/20 Enalapril [Vasotec] 20 mg PO DAILY 04/13/20 Fenofibrate 160 mg PO DAILY 06/15/20 Ondansetron [Zofran] 4 mg PO Q12HP PRN 04/13/20 Pantoprazole [Protonix Tab] 40 mg PO BID 04/13/20 clonazePAM [Klonopin] 1 mg PO TIDP PRN 04/13/20 Patient Discharge Instructions: Patient transferred to inpatient psych facility to for further evaluation and treat Diet: ADA Activity: Ad laureen Time spent managing pt's care (in minutes): 55
[2020-04-14] MEDS ORDERED: ATORVASTATIN 20 MG TAB PO SCH (21:00)
--- NOTE | 2020-04-15 15:09 | CON ---
Date of Consultation: 04/14/2020 Chief Complaint: Severe depression with suicide attempt via overdose. History Of Present Illness: Mr. Burnett is a 64-year-old male with psychiatric history significant for major depressive disorder who was admitted via the emergency department on account of overdosing on clonazepam 1 mg tablets of which he took 50 tablets following an argument with the over financial issues. On presentation to the ER, patient was noted to be in respiratory distress with room O2 saturations of 83% and very lethargic. On interview today at the ICU, Patient states that about a year ago while he was in the hospital for cardiac surgery, the had approached him regarding an investment. Patient states that initially he was not in favor of the investment but his pressured him into signing unto the deal. Patient the agreement was to investment to 80,000 dollars in the deal. Patient states his had to take the money from his 401K and invested it with the agent. Since this investment, they are not getting any return and the individual who had their money recently contacted them that he was trapped in [place] while on business trip and needed about 40,000 dollars to get out of the situation. Patient claimed that is tried to use the house as a collateral to obtain the money from a bank, and the process forged his signature, but was caught while she went to the bank. States he was upset that she would do that. 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 He states that they have been for 41 years and they have 4 kids. Patient is overwhelmingly depressed. Patient has lost his entire savings. Patient also feels frustrated that his is not telling him the truth. He has a history of previous suicide attempt and he also tried to overdose, was admitted in a psych maria. Says he has been admitted twice. Patient described his mood symptoms as depressed mood for most part of the day, anhedonia, lack of motivation, lack of energy, feeling hopeless and helpless, feeling as world has collapsed on him. Sleep is poor. Worries excessively over financial issues, now they do not have money to feed themselves. He is currently on disability. Patient states he does not see any way out of the current situation. He denies psychotic symptoms. No history of bipolar disorder. No history of substance abuse. Family History: There is no family history of mental illness. Physical Examination: Vital Signs: Blood pressure is 108/71, pulse rate is 67, respiratory rate is 25 breaths per minute, O2 saturation is 97. Mental Status Examination: Patient is a well-nourished male lying in bed in ICU with flat affect, occasionally tearful, acute respiratory distress. No stereotypic movement. Alert and oriented x3, with severe psychomotor retardation. Speech is continuous, normal in rate and rhythm, but low volume. Concentration and memory are fair. Mood is described as depressed. Affect is mood congruent. Thought process is linear. Thought content: Suicide attempt by overdose of 50 tablets of clonazepam 1 mg strength, no auditory or visual hallucination. Insight /judgement/impulse control: Poor Fund of knowledge fair. Language skills fair. Assessment: A 64-year-old male with chronic history of depression, had psych hospitalization, past history of suicide attempt, via overdosed on 50 tablets of clonazepam 1 mg strength with history of previous attempt and significant psychosocial stressor. Diagnosis: 1. Major depressive disorder, severe without psychotic feature. 2. Anxiety disorder. Plan: Recommend Patient be admitted to psych inpatient facility for safety and mood stabilization. Discussed recommendation with treatment team. I spent 45 minutes in reviewing patient's chart, obtaining history, and discussing with treatment team. EMILY/SHERYL Voice ID: [id number] Report ID: [id number] ANNIE
== END 2020-04-14 15:23 | DRG 918 ==
LOC: ER 14:44 → ERHOLD 16:23 → UNDOADMOB 16:23 → 3RD-ICU 19:34 → OBSVTOIN 04-14 07:39
PROVIDERS: ADMIT Family Medicine; ATTEND Family Medicine
DX: T42.4X2A Poisoning by benzodiazepines, intentional self-harm, initial encounter (principal); F32.2 Major depressive disorder, single episode, severe without psychotic features; J44.9 Chronic obstructive pulmonary disease, unspecified; K21.9 Gastro-esophageal reflux disease without esophagitis; I10 Essential (primary) hypertension; Z95.1 Presence of aortocoronary bypass graft; E11.51 Type 2 diabetes mellitus with diabetic peripheral angiopathy without gangrene; Z90.49 Acquired absence of other specified parts of digestive tract; Z88.8 Allergy status to other drugs, medicaments and biological substances; I25.10 Atherosclerotic heart disease of native coronary artery without angina pectoris; E11.65 Type 2 diabetes mellitus with hyperglycemia; E78.2 Mixed hyperlipidemia; F41.1 Generalized anxiety disorder; G47.33 Obstructive sleep apnea (adult) (pediatric); E66.9 Obesity, unspecified; R09.02 Hypoxemia; Z68.32 Body mass index [BMI] 32.0-32.9, adult; Z20.828 Contact with and (suspected) exposure to other viral communicable diseases; I25.2 Old myocardial infarction; Z79.82 Long term (current) use of aspirin; Z79.02 Long term (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 of antithrombotics/antiplatelets; Z79.4 Long term (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 of insulin; Z79.899 Other long term (current) drug therapy
CPT/HCPCS: 36415; 80048; 80053; 80076; 80307; 80320; 80329; 81003; 83880; 85025; 85610; 85730; 93005; 94660; 94760; 99285; G0378; J1650; J7799; U0002